=== PATIENT | male | born 1955 | race Caucasian/White ===

== ENCOUNTER 2021-11-25 06:43 | Inpatient (IN) | payer MEDICARE, OTHER, SELFPAY ==
--- NOTE | 2021-11-16 10:25 | EKG12_ITS ---
Test Reason : PRE OP Blood Pressure : / mmHG Vent. Rate : 079 BPM Atrial Rate : 079 BPM P-R Int : 116 ms QRS Dur : 088 ms QT Int : 368 ms P-R-T Axes : 039 004 007 degrees QTc Int : 421 ms Normal sinus rhythm Normal ECG Confirmed by BRIDGETT ALONSO MD ([id number]), food expeditor FELISHA DEAN ([id number]) on 11/17/2021 7:23:55 AM Referred By: ZOE Confirmed By:BRIDGETT ALONSO MD
--- NOTE | 2021-11-16 10:35 | RAD_ITS ---
STUDY: X-RAY CHEST REASON FOR EXAM: Male, 65 years old. PREOP TECHNIQUE: XR Chest 2 Views COMPARISON: None FINDINGS: There is no demonstrated pleural abnormality. Normal size heart. Normal mediastinum and ari. Normal visualized pulmonary arteries. Normal visualized aortic arch and descending thoracic aorta. Normal visualized thoracic spine. Normal visualized ribs, clavicles, and shoulders. There is no demonstrated abnormality of the visualized soft tissue structures of the upper abdomen. RAD/Chest PA and Lateral IMPRESSION: There are no acute findings. Electronically Signed: Jeremiah Rao MD at 18:52 EST Reading Location ID and State: [facility] / [place] , Service support ,
[2021-11-16 11:11] LABS: Absolute Lymphocyte Count 3.09 X10^3/uL (0.83-4.51); Basophil# 0.04 X10^3/uL; Basophil% 0.5 % (0-1); Eosinophil# 0.55 X10^3/uL; Eosinophils% 6.7 % (0-5); Lymphocyte # 3.09 X10^3/ul (0.83-4.51); Lymphocyte % 37.4 % (19-41); Mean Corp Hgb Conc 32.6 g/dL (32-36); Mean Corpuscular Hgb 30.4 pg (27.0-32.0); Mean Corpuscular Volume 93.3 fL (80-94); Mean Platelet Vol. 10.3 fl (6.2-12.0); Monocyte# 0.62 X10^3/uL; Monocyte% 7.5 % (0-10); NRBC Flagged by Analyzer 0 % (0-5); Neutrophil # 3.95 X10^3/uL (2.7-7.7); Neutrophil % 47.8 % (47-70); Platelet Count 190 K/mm3 (150-450); RBC Distribution Width CV 13.5 % (11.6-14.6); Red Blood Count 4.61 M/mm3 (4.6-6.2); White Blood Count 8.3 K/mm3 (4.4-11.0)
[2021-11-16 11:20] LABS: International Normalized Ratio 1.1; Prothrombin Time (Protime)PT. 13.3 SECONDS (11.7-14.9)
[2021-11-16 11:45] LABS: Anion Gap 2 (5-15); BUN 21 mg/dL (7-18); BUN/Creat Ratio 22.1 RATIO (10-20); Calcium,Total 8.6 mg/dL (8.5-10.1); Chloride 109 mmol/L (98-107); Creatinine, Serum 0.95 mg/dL (0.70-1.30); EST Glomerular Filtration Rate 84 mL/min (>60); Est Glom Filt Rate - Afr Amer 102 mL/min (>60); Glucose 90 mg/dL (74-106); Potassium 4.4 mmol/L (3.5-5.1); Sodium Level 140 mmol/L (136-145)
[2021-11-25] VITALS (11 sets, daily range): BP systolic 111–136; BP diastolic 56–101; PULSE 64–105; RESP 14–18; TEMP 35.8–36.8; O2SAT 93–100; BMI 30.8
[2021-11-25] MEDS: Lactated Ringers 1,000 ML 15 ML IV ×2 (07:25→22:00)
--- NOTE | 2021-11-25 08:08 | OP.PCM_ITS ---
Problems Associated Problem List Diagnoses (1) Lumbar stenosis: Report of Operation Date of Procedure: 11/25/21 Pre-Operative Diagnosis: 1. Lumbar stenosis, L4-5, L5-S1 with claudication 2. Lumbar degenerative disc disease, L4-5, L5-S1 3. Lumbar spondylosis, L4-5, L5-S1 with radiculopathy Post-Operative Diagnosis: 1. Lumbar stenosis, L4-5, L5-S1 with claudication 2. Lumbar degenerative disc disease, L4-5, L5-S1 3. Lumbar spondylosis, L4-5, L5-S1 with radiculopathy Surgery/Procedure Performed:: 1. L4-5 posterior lumbar interbody fusion 2. L5-S1 posterior lumbar interbody fusion 3. Insertion of intervertebral biomechanical device x2 4. Structural allograft for spinal fusion 5. L4 bilateral laminectomies, foraminotomies, facetectomies, decompression of bilateral L4 nerve roots 6. L5 bilateral laminectomies, foraminotomies, facetectomies, decompression of bilateral L5 nerve roots 7. S1 bilateral laminectomies, foraminotomies, facetectomies, decompression of bilateral S1 nerve roots 8. Pedicle screw fixation 9. Local autograft for spinal fusion 10. Repair of durotomy 11. Neuro monitoring bilateral upper and bilateral lower extremities Description of Surgical Findings:: Statement of medical necessity: The patient is a 65-year-old male with intractable back and leg pain. Image studies confirm the above diagnoses. He has failed conservative treatment to include medication, physical therapy, and injections. The patient opted for operative intervention understanding the risk to include, but not limited to, infection, bleeding, damage to nerves arteries and veins, possibility of spinal fluid leak, nonunion, hardware failure, continued pain, need for further surgery, deep vein thrombosis, pulmonary embolism, heart attack, risk of stroke or . Description of procedure: The patient was identified in the preoperative holding area. There he received preoperative IV antibiotics, Ancef, and was then transferred to the operative suite. Once in the operative suite, after general endotracheal anesthesia was established, the patient was positioned prone on the Abdoul operating table. All bony prominences were padded accordingly. The lumbar spine was prepped and draped in a standard surgical fashion. Bear hugger's were not turned on until the drapes were placed and sealed with Ioban. A midline incision was made and taken down to the lumbodorsal fascia. The fascia was divided and subperiosteal dissection was taken down to the level of the bilateral L4 and L5 transverse processes and S1 sacral ala. Deep retractors were placed. A bone scalpel was used to make bilateral cuts in the lamina of L4 and L5. Then a series of rongeurs and Kerrisons was used to remove the spinous process and lamina of L4 and L5. Then facetectomies of greater than 50% were performed as well as foraminotomies, decompressing the bilateral L4, L5, and S1 nerve roots. Given the severity of the stenosis we needed to perform wide bilateral laminectomies and near complete facetectomies in order to decompress the neural elements therefore creating instability necessitating the fusion. The dura and nerve roots were retracted medially. A 15 blade scalpel was used to make an annulotomy at L4-5 on the right side. Endplate elevators and curettes and pituitaries were utilized to remove disc material. The endplates were prepared with a rasp. An appropriate sized intervertebral peek cage device measuring 10 mm was packed with structural allograft and then impacted into position completing the posterior lumbar interbody fusion at L4-5. Similar steps were performed at L5-S1 including annulotomy, removal of disc material, and preparation of endplates. An appropriate sized intervertebral peek cage device measuring 10 mm was packed with structural allograft and impacted into position completing the posterior lumbar interbody fusion at L5-S1. At this time a dural tear was noted just cephalad to the L4 nerve root on the right s lala. This was repaired with silk suture. A Valsalva was performed showing no leak of CSF. I then proceeded with pedicle screw fixation. Starting points were found at the junction of the superior articular process and transverse processes of L4 and 5 and the sacral ala. A power bur was used for the starting points. Pedicle probes were placed bilaterally and then 6.5 x 45 mm screws were placed bilaterally at L4, 6.5 x 45 mm screws were placed bilaterally at L5, and 6.5 x 40 mm screws were placed bilaterally at S1. The screws were tested with intraoperative neurophysiologic monitoring and tested within normal limits. Connecting rods were then applied. I then proceeded with the posterior lateral fusion. This was accomplished by decorticating the transverse processes and sacral ala bilaterally at L4, L5 and S1. This decorticated bone was then bridged with local autograft as well as morselized cancellous allograft therefore completing the posterior lateral fusion at L4-5 and L5-S1. The incision was thoroughly irrigated with saline solution. DuraGen was placed over the dural repair. Tisseel was placed over the dura as a hemostatic agent. A deep drain was placed. The fascia was closed with #1 Vicryl, subcutaneous with 2-0 Vicryl, and skin with 2-0 nylon. A sterile dressing was applied with 4 x 4's ABD and tape. Sponge instrument needle counts were correct at the end of the case. The patient was extubated and taken to the PACU without incident. Surgeon: Abiel Cruz Type of Anesthesia: General Drains: Hemovac Estimated Blood Loss (mL): 650 cc Fluids Replaced: 3500 Grafts/Implants Used: Unified spine cages, screws and rods. Vitae OS biologic. DBM by ostial bi Admit VTE Documentation VTE Present on Admission: No
--- NOTE | 2021-11-25 08:08 | PCM.PN.ORT ---
Subjective Subjective The patient was seen and examined postoperatively in the PACU. He is resting comfortably. His pain is controlled. He denies any other complaints including numbness tingling or weakness. Objective Data Objective Data Vital Signs: Vital Signs Temp Pulse Resp BP Pulse Ox 98.0 F 64 16 114/73 100 11/25/21 07:16 11/25/21 07:16 11/25/21 07:16 11/25/21 07:16 11/25/21 07:16 Oxygen Delivery Method Room Air Weight: 227 lb 1.218 oz Body Mass Index (BMI) 30.8 Lab / Micro Data Result Diagrams: 11/16/21 10:45 11/16/21 10:45 Physical Exam Const alert, oriented x3 and no apparent distress General Appearance: cooperative and comfortable HEENT head/scalp atraumatic Eyes EOMs intact bilaterally and conjunctivae normal Neck full ROM General: normal visual inspection Chest inspection of chest normal Resp normal respiratory effort and normal air movement Cardio regular rate and regular rhythm Peripheral Pulses: pulses 2+ throughout GI soft to palpation, non-tender and non-distended Back/Spine Back/Spine Narrative: Dressing clean dry and intact. Drain in place and functioning with serosanguineous fluid present in the drain Thoracic Spine / Upper Back: normal to inspection Lumbar Spine / Lower Back: normal to inspection Extremity normal to inspection, full ROM, normal capillary refill, no clubbing, cyanosis or edema and no calf tenderness Peripheral Pulses: Yes pulses 2+ throughout Skin no rashes or lesions noted General Skin Exam: no breakdown Neuro oriented x3, CN's II-XII intact bilaterally, moves all extremities, no focal motor deficits, no sensory deficits noted and deep tendon reflexes 2+ bilaterally Motor Exam: strength 5/5 throughout and muscle tone normal throughout Assessment & Plan Assessment/Plan (1) Lumbar stenosis: PLAN: Okay to admit to floor See orders Pain control and mobilization as tolerated Back brace on at all times while out of bed Continue antibiotics while drain in place Keep dressing clean dry and intact, reinforce as needed Dr. Cruz will perform first dressing change when he removes the drain
--- NOTE | 2021-11-25 08:09 | DS.PCM_ITS ---
Providers Date of Admission: 11/25/21 Primary Care Physician: VANITA DING Reason For Visit: lumbar 4- lumbar 5 sacral posterior lumbar fusion Diagnosis Discharge Diagnosis (1) Lumbar stenosis: Status: Acute Code(s): M48.061 - Spinal stenosis, lumbar region without neurogenic claudication Medications at Discharge Home Medications atorvastatin 40 mg PO QHS 11/11/21 cholecalciferol (vitamin D3) [Vitamin D3] 50 mcg PO DAILY 11/11/21 gabapentin 300 mg PO TID 11/11/21 hydrocodone-acetaminophen 1 tab PO Q6H 7 Days #28 tab 11/25/21 Hospital Course Operations - (L4-5, L5-S1 posterior lumbar interbody fusion, decompression, posterior spinal fusion with instrumentation) Summary of Care Provided Minutes Spent on Discharge: 15 Hospital Course: The patient is a 65-year-old male who underwent an L4-5 and L5- S1 posterior lumbar interbody fusion, decompression, posterior spinal fusion with instrumentation, dural repair on 11/25/2021. He was subsequently admitted. The hospitalist was consulted for medical management. The patient progressed well. His pain was well controlled and he was mobilizing well. No significant medical issues were reported. He was complaining of a headache on postoperative day 1. His drain was clamped and he was laid flat for 24 hours and his headache resolved. His drain was pulled on 11/29/2021 and he was subsequently discharged home on 11/29/2021 to follow-up with Dr. Cruz in 3 weeks Physical Exam Const alert, oriented x3 and no apparent distress General Appearance: cooperative and comfortable HEENT head/scalp atraumatic Head and Scalp: normal to inspection Eyes EOMs intact bilaterally and conjunctivae normal Neck full ROM General: normal visual inspection Chest inspection of chest normal and palpation of chest normal Resp normal respiratory effort and normal air movement Cardio regular rate, regular rhythm and peripheral pulses 2+ throughout GI soft to palpation, non-tender and non-distended Back/Spine Back/Spine Narrative: Dressing clean dry and intact Incision well approximated with interrupted sutures in place. No erythema tenderness drainage or fluctuance. Thoracic Spine / Upper Back: normal to inspection Lumbar Spine / Lower Back: normal to inspection Extremity normal to inspection, full ROM, normal capillary refill, no clubbing, cyanosis or edema and no calf tenderness Peripheral Pulses: Yes pulses 2+ throughout Skin no rashes or lesions noted General Skin Exam: no breakdown Neuro oriented x3, CN's II-XII intact bilaterally, moves all extremities, no focal motor deficits, no sensory deficits noted and deep tendon reflexes 2+ elodia aterally Motor Exam: strength 5/5 throughout and muscle tone normal throughout Weight / BMI Weight Weight: 227 lb 1.218 oz Body Mass Index (BMI) 30.8 ABG / Lab / Microbiology Data Result Diagrams: 11/29/21 05:45 11/29/21 05:45 D/C Instructions Discharge Diet: No restrictions Discharge Activity: - (No repetitive bending twisting or lifting greater than 5 pounds) Lifting Restricted to (Lbs): 5 Additional Activity Instructions: See attached discharge instructions Call your doctor if your incision/area has: Continuous Slow Oozing, Sudden Increased Bleeding, Increased Pain/ Swelling, Increased Redness, Foul Smelling Discharge and Swelling at the incision site Call your doctor if you observe: Fever of 101 or Higher, Coldness, Increased Pain, Numbness or Tingling, Change in Color, Inability to urinate, Inability to have a bowel movement, Using more than 1 pad per hour, Shortness of breath, Dizziness, Fainting spells, Swelling in the ankles, Chest pain, Prolonged hiccupping, Increased palpitations (irregular heartbeat), Calf discomfort and Uncontrolled pain Change Dressing in: Daily Cleanse incision/area with: Do not get Incision Wet and Keep Dressing Clean & Dry Additional Dressing/Incision Instructions: Change dressing daily with iodine to incision Additional Instructions: See attached discharge instructions Please Follow Up With: Abiel Cruz DO When: 3 weeks Meaningful Use Info Meaningful Use Diagnoses (Choose all that apply): None applicable Discharge Plan Admission Admit Date/Time: 11/25/21 06:43 Attending Provider: Abiel Cruz Consulting Providers: Sailaja Rosales ; Adelita Galicia ; William Miller ; Keyshawn Echeverria ; Brody Bowers ; Nasrin Barnett ; Ck Vuong ; Pb Soto ; Denzel Castorena ; Manish Jones ; Juju Gr ; eLnny Andres ; Elicia Tipton ; Alexys Shahid ; Jn Rios ; Jagdish Woods ; John Mei ; Leonie Machado ; Aby Hua NP ; Tigre Jimenez ; Daniela Mak Instructions Additional Instructions / Restrictions: 1. During your procedure, you received sedation through your IV. Please follow these instructions for the next 24 hours: Do not drive a motor vehicle, do not drink any alcoholic beverages, and do not sign any legal documents or make personal or business decisions. A responsible adult should stay with you at least 6 hours after the procedure. 2. Keep your surgical site/incision clean and the dressing dry and intact. You may use an ice pack at the surgical site to reduce any swelling or discomfort. 3. Monitor the incision site for any signs or symptoms of infection. Watch for redness, excessive swelling or drainage, or continued pain at the incision site after 3 days. Contact your physician immediately for a fever, chills or a temperature of 101.5? F or greater. 4. Take your medication exactly as prescribed by your physician. Do not attempt to wean yourself off any of your medications even though your pain is improving. This process needs to be carefully monitored by your doctor. Take any antibiotics prescribed exactly as directed and until they are gone. 5. Avoid stretching, bending, pulling, twisting or any sudden movements. Do not bend or twist at the waist. 6. No lifting greater than 5 pounds. 7. Do not operate a motor vehicle, equipment or a power tool while taking pain medication 8. Do not have any manipulation done by a chiropractor or any other physician without first consulting with the surgeon 9. Please contact our office if you are even scheduled for a CT scan or an MRI. 10. Please call us if you have any questions, problems or concerns. Follow-up with Dr. Cruz in 3 weeks call for appointment Discharge Orders/Prescriptions Prescriptions: New hydrocodone-acetaminophen 5-325 mg tablet 1 tab PO Q6H 7 Days Qty: 28 RF: 0 Continued atorvastatin 40 mg Tablet 40 mg PO QHS RF: 0 gabapentin 300 mg Tablet 300 mg PO TID RF: 0 cholecalciferol (vitamin D3) [Vitamin D3] 50 mcg (2,000 unit) Tablet 50 mcg PO DAILY RF: 0 Discontinued meloxicam [Mobic] 15 mg Tablet 15 mg PO DAILY RF: 0 meloxicam 15 mg Tablet 15 mg PO DAILY RF: 0 Referrals / Follow Up: VANITA DING [Other] Abiel Cruz DO [STAFF PHYSICIAN] -
--- NOTE | 2021-11-25 08:39 | RAD_ITS ---
STUDY: X-RAY - LUMBAR SPINE REASON FOR EXAM: Male, 65 years old. L4-S1 interbody fusion surgery TECHNIQUE: 6 limited intraoperative view(s) of the lumbar spine were obtained. COMPARISON: None FINDINGS: 6 limited intraoperative studies were performed as the patient is an pedicle screw fusion surgery and synthetic disc placement at L4-5 and L5-S1. No intraoperative complications noted. RAD/Lumbar Spine 2 or 3 Views IMPRESSION: No complications noted with intraoperative studies of the lower lumbar spine. Electronically Signed: Neftali Cotto MD at 17:05 EST ,
[2021-11-25] MEDS: Cefazolin 2 GM in 0.9% Normal Saline 100 ML IV (09:00)
[2021-11-25] MEDS: Heparin 10,000 UNITS/10 ML Vial 10000 UNITS (09:09)
[2021-11-25] MEDS: THROMBIN (RECOMBINANT) 20,000 UNIT VIAL 20000 UNIT TOPICAL (09:09)
[2021-11-25] MEDS: Bupivacaine 0.25% 30 ML Vial (14:45)
[2021-11-25] MEDS: Cefazolin 1 GM/50 ML BAG IV (17:30)
[2021-11-25] MEDS: Morphine 4 MG/ML Syringe IV ×2 (18:04→21:53)
--- NOTE | 2021-11-25 18:04 | PN.HOSP_ITS ---
Documented by User: Aby Hua NP, DRAWER IN [employer]IN [employer]-C 11/25/21 18:09 Subjective Subjective Patient seen and examined. Patient underwent lumbar spine surgery. Reports mild shortness of breath postoperatively and was placed on 2 L supplemental oxygen. He denies chest pain. Reports significant postoperative pain. Reports a history of RODRIGO and wears BiPAP. Objective Data Objective Data Vital Signs: Vital Signs Temp Pulse Resp BP Pulse Ox 98.1 F 105 H 18 136/71 H 98 11/25/21 17:51 11/25/21 17:51 11/25/21 17:51 11/25/21 17:51 11/25/21 17:51 Oxygen Flow Rate (L/min) 2 Oxygen Delivery Method Nasal Cannula Weight: 227 lb 1.218 oz Body Mass Index (BMI) 30.8 Intake & Output: Intake and Output for Last 24 Hours 11/23/21 11/24/21 11/25/21 23:59 23:59 23:59 Intake Total 110 / 110 Output Total 595 / 595 Balance -485 / -485 Lab / Micro Data Result Diagrams: 11/16/21 10:45 11/16/21 10:45 Radiography Diagnostic Testing: Radiology Impression Lumbar Spine X-Ray 11/25/21 08:39 IMPRESSION: No complications noted with intraoperative studies of the lower lumbar spine. Electronically Signed: Neftali Cotto MD at 17:05 EST , Physical Exam Const alert, oriented x3 and no apparent distress Orientation / Consciousness: awake, oriented to person, oriented to place and oriented to time HEENT normocephalic and moist oral mucous membranes Eyes PERRL, EOMs intact bilaterally and conjunctivae normal Neck no lymphadenopathy Resp clear to auscultation bilaterally Auscultation: diminished lung sounds Cardio regular rate, regular rhythm and no murmurs Peripheral Pulses: pulses 2+ throughout GI normal to inspection, nondistended, normoactive bowel sounds, non-tender and non-distended Extremity normal to inspection Skin no rashes or lesions noted Skin Narrative: Postoperative lumbar dressing dry and intact. Lesions: no lesions Rashes: no rashes Trauma: no lacerations or abrasions Neuro CN's II-XII intact bilaterally, no focal motor deficits, no sensory deficits noted and deep tendon reflexes 2+ bilaterally Psych mental status grossly normal and affect normal Assessment & Plan Assessment/Plan (1) Lumbar stenosis: PLAN: 1. Lumbar stenosis and lumbar degenerative disc disease-status post extensive lumbar intervention-see operative note. Management per surgery. As needed pain regimen. PT/OT. 2. RODRIGO-continue BiPAP. 3. Hyperlipidemia-continue statin. DVT prophylaxis-SCDs This patient was seen by MAHESH Montelongo under the supervision of Dr. Gr. Documented by User: Dr. Juju Gr DO 11/25/21 18:48 Subjective Subjective This patient was seen in conjunction with Aby Hua NP. The following is representation my independent history and physical examination. Please see below for addendum the above. Mr. Harry is a 65-year-old white male who was admitted for and elective L4-L5 and L5-S1 posterior lumbar interbody fusion/decompression/posterior spinal fusion with instrumentation and allograft placement on 11/25/2021. He has a history of frequent episodic low back pain and paresthesias that radiate to his left lower extremity that were specifically worse with prolonged sitting. The patient had no changes in bowel or bladder function and unfortunately had failed conservative management including medications, physical therapy, and injections. His symptoms were affecting his activities of daily living. We have been consulted in the immediate postoperative. For medical management. At this time the patient has having some pain. He has a recent history of COVID-19 infection for which she wears oxygen at night. He has had 2 overnight pulse oximetry studies that he has failed. His BMI is 30.8 and he does have a short thick neck. He does deny ever having a polysomnography but family states that they feel he needs an outpatient sleep study. 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 Objective Data Lab / Micro Data Result Diagrams: 11/16/21 10:45 11/16/21 10:45 Physical Exam Const alert, oriented x3, healthy appearing and well nourished Constitutional Narrative: Obese upper middle-aged white male lying in bed, sleepy but awake and alert/oriented x3, appears mildly uncomfortable but nontoxic, family at bedside Exam Limitations: no limitations Nutritional Appearance: obese HEENT head/scalp atraumatic and moist oral mucous membranes HEENT Narrative: Mallampati is 3, tongue is red from Jell-O, dentition is fair Head and Scalp: normocephalic Resp normal respiratory effort, no retractions, no use of accessory muscles and clear to auscultation bilaterally Auscultation: Negative for crackles, rales, rhonchi or wheezes Cardio regular rhythm, S1 normal heart sound, S2 normal heart sound, no murmurs, no rub, no gallops, no clicks and no JVD Cardio Narrative: Very mild tachycardia GI normal to inspection, nondistended, normoactive bowel sounds, soft to palpation, non-tender and non-distended Extremity no clubbing, cyanosis or edema Peripheral Pulses: Yes pulses 2+ throughout Neuro oriented x3, CN's II-XII intact bilaterally, moves all extremities and no focal motor deficits Sensorium / Orientation: awake and alert Speech: speech normal Assessment & Plan Assessment/Plan (1) Lumbar stenosis: (2) Paresthesia of right upper extremity: PLAN: Lumbar stenosis status post L4-L5/L5-S1 posterior lumbar interbody fusion/decompression/posterior spinal fusion with instrumentation/allograft -Postop day [address] with management per primary -Pain management per primary -Recommend bowel regimen -PT/OT per direction of primary Right upper extremity tingling -Suspect this is related from positioning and surgery -No other neurological symptoms that are new -Continue to monitor Suspected RODRIGO -Nocturnal BiPAP -Recommend outpatient polysomnography Recent COVID-19 infection -Patient has been on nocturnal oxygen at 1 L since this infection however I do suspect he has obstructive sleep apnea baseline -Patient follows with Dr. Francois in [place] Hyperlipidemia -Continue statin Obesity -Recommend weight loss -BMI is 30.8 DVT prophylaxis -SCDs -Management per primary Charges/Coding Visit Charges Inpatient E&M: 58501 Subs Hosp L2
[2021-11-25] MEDS: Acetaminophen 500 MG Tablet 1000 MG PO (18:17)
[2021-11-25] MEDS: oxyCODONE 5 MG Tablet PO (18:59)
[2021-11-25] MEDS: Atorvastatin Calcium 40 MG Tablet PO (21:27)
[2021-11-25] MEDS: Gabapentin 300 MG Capsule PO (21:27)
[2021-11-25] MEDS: 0.9% Saline Lock 10 ML Syringe IV (21:56)
[2021-11-26] VITALS (11 sets, daily range): BP systolic 107–135; BP diastolic 60–97; PULSE 70–94; RESP 14–16; TEMP 36.6–37.2; O2SAT 94–100
[2021-11-26] MEDS: Cefazolin 1 GM/50 ML BAG IV ×3 (00:45→16:21)
[2021-11-26] MEDS: Acetaminophen 500 MG Tablet 1000 MG PO ×4 (00:46→21:33)
[2021-11-26] MEDS: Lactated Ringers 1,000 ML 100 ML IV (04:15)
[2021-11-26] MEDS: oxyCODONE 5 MG Tablet PO ×3 (05:04→19:17)
[2021-11-26] MEDS: Gabapentin 300 MG Capsule PO ×3 (05:06→21:33)
--- NOTE | 2021-11-26 06:37 | NURSING ---
patient stated it was ok to give information to daughter Divya, update given this AM
--- NOTE | 2021-11-26 07:18 | PCM.PN.ORT ---
Subjective Subjective The patient was seen and examined postoperative day 1. He is doing well. He is lying in bed resting comfortably. He is having some postop soreness but it is controlled on medication. He is having some tingling in the right small finger. He denies any other complaints including acute numbness tingling weakness. His Nance catheter has been removed. He was out of bed yesterday and walked around the room without difficulty. Objective Data Objective Data Vital Signs: Vital Signs Temp Pulse Resp BP Pulse Ox 97.9 F 79 16 107/63 94 11/26/21 05:00 11/26/21 06:57 11/26/21 05:00 11/26/21 05:00 11/26/21 06:00 Oxygen Flow Rate (L/min) 2 Oxygen Delivery Method Room Air Weight: 227 lb 1.218 oz Body Mass Index (BMI) 30.8 Intake & Output: Intake and Output for Last 24 Hours 11/24/21 11/25/21 11/26/21 23:59 23:59 23:59 Intake Total 378.75 / 378.75 849.83 / 849.83 Output Total 920 / 920 1875 / 1875 Balance -541.25 / -541.25 -1025.17 / -1025.17 Lab / Micro Data Result Diagrams: 11/16/21 10:45 11/16/21 10:45 Radiography Diagnostic Testing: Radiology Impression Lumbar Spine X-Ray 11/25/21 08:39 IMPRESSION: No complications noted with intraoperative studies of the lower lumbar spine. Electronically Signed: Neftali Cotto MD at 17:05 EST , Physical Exam Const alert, oriented x3 and no apparent distress General Appearance: cooperative and comfortable HEENT head/scalp atraumatic Eyes EOMs intact bilaterally and conjunctivae normal Neck full ROM General: normal visual inspection Chest inspection of chest normal Resp normal respiratory effort and normal air movement Cardio regular rate and regular rhythm Peripheral Pulses: pulses 2+ throughout GI soft to palpation, non-tender and non-distended Back/Spine Back/Spine Narrative: Dressing clean dry and intact. Drain in place and functioning with small amount of serosanguineous fluid in it Cervical Spine: cervical ROM normal Thoracic Spine / Upper Back: normal to inspection Lumbar Spine / Lower Back: normal to inspection Extremity normal to inspection, full ROM, normal capillary refill, no clubbing, cyanosis or edema and no calf tenderness Peripheral Pulses: Yes pulses 2+ throughout Skin no rashes or lesions noted General Skin Exam: no breakdown Neuro oriented x3, CN's II-XII intact bilaterally, moves all extremities, no focal motor deficits, no sensory deficits noted and deep tendon reflexes 2+ bilaterally Motor Exam: strength 5/5 throughout and muscle tone normal throughout Assessment & Plan Assessment/Plan (1) Lumbar stenosis: PLAN: Continue pain control and mobilization Back brace on at all times while out of bed Reinforce dressing as needed, do not remove Keep antibiotics going while drain in place Dr. Cruz will pull drain and perform first dressing change when appropriate
[2021-11-26] MEDS: 0.9% Saline Lock 10 ML Syringe IV ×3 (08:03→21:36)
[2021-11-26] MEDS: Morphine 4 MG/ML Syringe IV (08:03)
[2021-11-26] MEDS: Cholecalciferol (VIT D3) 25 MCG TABLET (1,000 UNITS) 50 MCG PO (08:03)
--- NOTE | 2021-11-26 09:10 | PN.HOSP_ITS ---
Documented by User: Aby Hua NP, LOCK AND DAM OPERATOR-C 11/26/21 09:26 Subjective Subjective Patient seen and examined. Reports pain has been tolerable overnight. Reports increased pain following movement this morning. Denies shortness of breath. Denies other symptoms or complaints. Patient states he has worn supplemental oxygen at nighttime since Cov infection October 2020. He states he does not wear BiPAP/CPAP. Objective Data Objective Data Vital Signs: Vital Signs Temp Pulse Resp BP Pulse Ox 98.2 F 70 14 107/60 99 11/26/21 07:56 11/26/21 07:56 11/26/21 07:56 11/26/21 07:56 11/26/21 07:56 Oxygen Flow Rate (L/min) 2 Oxygen Delivery Method Room Air Weight: 227 lb 1.218 oz Body Mass Index (BMI) 30.8 Intake & Output: Intake and Output for Last 24 Hours 11/24/21 11/25/21 11/26/21 23:59 23:59 23:59 Intake Total 378.75 / 378.75 849.83 / 849.83 Output Total 920 / 920 1875 / 1875 Balance -541.25 / -541.25 -1025.17 / -1025.17 Lab / Micro Data Result Diagrams: 11/16/21 10:45 11/16/21 10:45 Radiography Diagnostic Testing: Radiology Impression Lumbar Spine X-Ray 11/25/21 08:39 IMPRESSION: No complications noted with intraoperative studies of the lower lumbar spine. Electronically Signed: Neftali Cotto MD at 17:05 EST , Physical Exam Const alert, oriented x3 and no apparent distress Orientation / Consciousness: awake, oriented to person, oriented to place and oriented to time HEENT normocephalic and moist oral mucous membranes Eyes PERRL, EOMs intact bilaterally and conjunctivae normal Neck no lymphadenopathy Resp clear to auscultation bilaterally Auscultation: diminished lung sounds Cardio regular rate, regular rhythm and no murmurs Peripheral Pulses: pulses 2+ throughout GI normal to inspection, nondistended, normoactive bowel sounds, non-tender and non-distended Extremity normal to inspection Skin no rashes or lesions noted Skin Narrative: Postop dressing intact. Lesions: no lesions Rashes: no rashes Trauma: no lacerations or abrasions Neuro CN's II-XII intact bilaterally, no focal motor deficits, no sensory deficits noted and deep tendon reflexes 2+ bilaterally Psych mental status grossly normal and affect normal Assessment & Plan (1) Lumbar stenosis: COMMENT: This patient was seen in conjunction with Aby SIFUENTES. I have independently interviewed and examined the patient and reviewed pertinent history, examination findings, laboratory and plan of management. I have reviewed the note and agree with the documented findings with the few additional points. In brief, patient is admitted after elective surgery for lumbar stenosis, degenerative disc disease L4-5 L5-S1 with claudication. Lumbar spondylosis with L4-5 L5-S1 radiculopathy. Patient had L4-5 posterior lumbar interbody fusion with insertion of device and L4 L5-S1 bilateral laminectomies. PT and OT. VT prophylaxis as deemed necessary by orthopedic surgeon. Other comorbidities include dyslipidemia on statin. Nocturnal hypoxia on O2. I have discussed my assessment with Aby SIFUENTES and orders have been reviewed. Total time of the visit includes total time spent in counseling or coordination of care, (more than 50% of the total time, spent in obtaining medical information from nurses and other ancillary care providers,explaining to the pa tient about labs, imaging, diagnosis and management), discussion with resourcing consultant, review of labs and imaging is 30 minutes; I spent 18 minutes, more than half time and PA spent 12 minutes PLAN: 1. Lumbar stenosis and lumbar degenerative disc disease-status post extensive lumbar intervention-see operative note. Management per surgery. As needed pain regimen. PT/OT. 2. Nocturnal hypoxia-following prior Covid infection October 2020. Continue nighttime supplemental oxygen and follow-up with pulmonary as outpatient. 3. Hyperlipidemia-continue statin. DVT prophylaxis-SCDs This patient was seen by MAHESH Montelongo under the supervision of Dr. Rios. Assessment & Plan Assessment & Plan (1) Lumbar stenosis: Problem Details: This patient was seen in conjunction with Aby SIFUENTES. I have independently interviewed and examined the patient and reviewed pertinent history, examination findings, laboratory and plan of management. I have reviewed the note and agree with the documented findings with the few additional points. In brief, patient is admitted after elective surgery for lumbar stenosis, degenerative disc disease L4-5 L5-S1 with claudication. Lumbar spondylosis with L4-5 L5-S1 radiculopathy. Patient had L4-5 posterior lumbar interbody fusion with insertion of device and L4 L5-S1 bilateral laminectomies. PT and OT. VT prophylaxis as deemed necessary by orthopedic surgeon. Other comorbidities include dyslipidemia on statin. Nocturnal hypoxia on O2. I have discussed my assessment with Aby SIFUENTES and orders have been reviewed. Total time of the visit includes total time spent in counseling or coordination of care, (more than 50% of the total time, spent in obtaining medical information from nurses and other ancillary care providers,explaining to the patient about labs, imaging, diagnosis and management), discussion with resourcing consultant, review of labs and imaging is 30 minutes; I spent 18 minutes, more than half time and PA spent 12 minutes Plan: 1. Lumbar stenosis and lumbar degenerative disc disease-status post extensive lumbar intervention-see operative note. Management per surgery. As needed pain regimen. PT/OT. 2. Nocturnal hypoxia-following prior Covid infection October 2020. Continue nighttime supplemental oxygen and follow-up with pulmonary as outpatient. 3. Hyperlipidemia-continue statin. DVT prophylaxis-SCDs This patient was seen by WILLAM MontelongoC under the supervision of Dr. Rios. Medications: New: hydrocodone-acetaminophen 5-325 mg 1 TAB PO Q6H 7 days 28 tabs 0RF M48.061 Patient Instructions: Medication reconciliation done Documented by User: Dr. Jn Rios MD 11/26/21 11:32 Subjective Subjective Seen and examined Patient complain of back pain which was more severe at night constant 8-10/10 intensity. Slightly better around 6-8/10 intensity in the morning. Patient spontaneously voided urine after Nance catheter removal. Objective Data Lab / Micro Data Result Diagrams: 11/16/21 10:45 11/16/21 10:45 Physical Exam Narrative General: Alert, Oriented x3, Cooperative HEENT: Atraumatic, PERRLA, EOMI, Normocephalic Oral: No Gingival or Mucosal Lesions/ Ulcerations Neck: Supple, No JVD, Negative Carotid Bruits Lungs: Air entry diminished in bilateral lung bases. No crepitation/rhonchi Cardiovascular: Regular rate, Regular Rhythm, Normal S1, Normal S2, No murmurs Abdomen: Bowel Sounds Present, Soft, Non Tender, Non-Distended : No renal angle tenderness. No suprapubic tenderness. Extremities: No edema, Capillary Refill Less than 3 Seconds Skin: No rashes, No breakdown Musculoskeletal spine: Tenderness present around perioperative region in lumbar spine. Surgical dressing dry and. Drain contains serosanguineous fluid. ROM restricted Neurological: Cranial nerves II-XII grossly intact, DTR 2+/4 and Symmetrical. Numbness around right radial 3 fingers, third and fourth finger has improved. Psych/Mental Status: Normal Affect, Appropriate. Charges/Coding Visit Charges Inpatient E&M: 81771 Subs Hosp L2 Assessment & Plan (1) Lumbar stenosis: COMMENT: This patient was seen in conjunction with Aby SIFUENTES. I have independently interviewed and examined the patient and reviewed pertinent history, examination findings, laboratory and plan of management. I have reviewed the note and agree with the documented findings with the few additional points. In brief, patient is admitted after elective surgery for lumbar stenosis, degenerative disc disease L4-5 L5-S1 with claudication. Lumbar spondylosis with L4-5 L5-S1 radiculopathy. Patient had L4-5 posterior lumbar interbody fusion with insertion of device and L4 L5-S1 bilateral laminectomies. PT and OT. VT prophylaxis as deemed necessary by orthopedic surgeon. Other comorbidities include dyslipidemia on statin. Nocturnal hypoxia on O2. I have discussed my assessment with Aby SIFUENTES and orders have been reviewed. Total time of the visit includes total time spent in counseling or coordination of care, (more than 50% of the total time, spent in obtaining medical information from nurses and other ancillary care providers,explaining to the patient about labs, imaging, diagnosis and management), discussion with resourcing consultant, review of labs and imaging is 30 minutes; I spent 18 minutes, more than half time and PA spent 12 minutes (2) Paresthesia of right upper extremity: COMMENT: As mentioned in physical exam PLAN: As mentioned above Assessment & Plan Assessment & Plan (1) Lumbar stenosis: Problem Details: This patient was seen in conjunction with Aby SIFUENTES. I have independently interviewed and examined the patient and reviewed pertinent history, examination findings, laboratory and plan of management. I have reviewed the note and agree with the documented findings with the few additional points. In brief, patient is admitted after elective surgery for lumbar stenosis, degenerative disc disease L4-5 L5-S1 with claudication. Lumbar spondylosis with L4-5 L5-S1 radiculopathy. Patient had L4-5 posterior lumbar interbody fusion with insertion of device and L4 L5-S1 bilateral laminectomies. PT and OT. VT prophylaxis as deemed necessary by orthopedic surgeon. Other comorbidities include dyslipidemia on statin. Nocturnal hypoxia on O2. I have discussed my assessment with LOCK AND DAM OPERATORAby and orders have been reviewed. Total time of the visit includes total time spent in counseling or coordination of care, (more than 50% of the total time, spent in obtaining medical information from nurses and other ancillary care providers,explaining to the patient about labs, imaging, diagnosis and management), discussion with hafsa wu, review of labs and imaging is 30 minutes; I spent 18 minutes, more than half time and PA spent 12 minutes (2) Paresthesia of right upper extremity: Problem Details: As mentioned in physical exam Plan: As mentioned above Medications: New: hydrocodone-acetaminophen 5-325 mg 1 TAB PO Q6H 7 days 28 tabs 0RF M48.061 Patient Instructions: Medication reconciliation done
--- NOTE | 2021-11-26 09:40 | CASEMGMT ---
RN TOBI CALF SKINNER CM to room to meet with patient for initial transition planning/care coordination assessment. LINDA BRITTON introduced self and role at [facility]. Pt voices understanding and consents to assessment at this time. Pt resting in bed, in no distress at this time. Pt is A/O at this time and answers all questions appropriately. Care providers, pharmacy, and demographics verified/updated at this time. PCP: Dr Laquita Mederos @ [facility] Specialists: Dr Cruz--ortho. Dr Francois--validation scientist in [place]. Preferred Pharmacy: [facility] Retail Insurance: RR MCR, AARP Prescription Benefit: Yes Living Will/HPOA: Has both. , Katja, is HPOA LNOK: , Katja. 2 daughters Living Arrangements: Lives w/ in one-story home w/2 steps to enter. Independent prior to surgery. and pt shared home mgmt tasks. and 2 daughters, who live close, able to assist pt as needed. Transportation: Pt states drives self and states no transportation concerns at this time. also drives DME: States has the following DME: walk-in tub w/seat, back brace, walker, O2 @ 1l/m @ HS thru [employer] [facility] in [place]. Has concentrator only. Pt states no need for further DME at this time. HHC/SNF: No hx of SNF. Had [facility] in the past after having COVID and on the vent in Oct, 2020. Pt wishes to return home and states has no concerns with going home at time of discharge. Denies need for HHC. CM to follow for any discharge planning/needs. Pt voices no concerns/needs at this time. Advised pt to ask for CM if any questions/concerns/needs arise. Voices understanding. PLAN: Home w/family support and discharge plans in place. Binh BERMUDEZ RN, CM
--- NOTE | 2021-11-26 13:37 | CPS ---
started by nursing
[2021-11-26] MEDS: Atorvastatin Calcium 40 MG Tablet PO (21:33)
[2021-11-27] VITALS (9 sets, daily range): BP systolic 104–112; BP diastolic 61–72; PULSE 72–98; RESP 18; TEMP 37.2–37.4; O2SAT 94–99
[2021-11-27] MEDS: Cefazolin 1 GM/50 ML BAG IV ×3 (00:24→16:42)
--- NOTE | 2021-11-27 04:26 | PCM.PN.ORT ---
Subjective Subjective The patient was seen and examined postoperative day 2. He has been complaining of a headache and has been laying flat. He denies any other complaints. His pain is minimal. He has been mobilizing well and did walk the halls with physical therapy without any issues. He denies any numbness tingling or weakness. Objective Data Objective Data Vital Signs: Vital Signs Temp Pulse Resp BP Pulse Ox 98.9 F 91 16 130/74 H 100 11/26/21 20:33 11/26/21 20:33 11/26/21 20:33 11/26/21 20:33 11/26/21 20:33 Oxygen Flow Rate (L/min) 2 Oxygen Delivery Method Room Air Weight: 227 lb 1.218 oz Body Mass Index (BMI) 30.8 Intake & Output: Intake and Output for Last 24 Hours 11/25/21 11/26/21 11/27/21 23:59 23:59 23:59 Intake Total 378.75 / 378.75 2449.83 / 2449.83 50 / 50 Output Total 920 / 920 4955 / 4955 Balance -541.25 / -541.25 -2505.17 / -2505.17 50 / 50 Lab / Micro Data Result Diagrams: 11/16/21 10:45 11/16/21 10:45 Physical Exam Const alert, oriented x3 and no apparent distress General Appearance: cooperative and comfortable HEENT head/scalp atraumatic Eyes EOMs intact bilaterally and conjunctivae normal Neck full ROM General: normal visual inspection Chest inspection of chest normal Resp normal respiratory effort and normal air movement Cardio regular rate, regular rhythm and peripheral pulses 2+ throughout GI soft to palpation, non-tender and non-distended Back/Spine Back/Spine Narrative: Dressing clean dry and intact. Drain in place and functioning. Moderate amount of serosanguineous fluid in the drain. Thoracic Spine / Upper Back: normal to inspection Lumbar Spine / Lower Back: normal to inspection Extremity normal to inspection, full ROM, normal capillary refill, no clubbing, cyanosis or edema and no calf tenderness Peripheral Pulses: Yes pulses 2+ throughout Skin no rashes or lesions noted General Skin Exam: no breakdown Neuro oriented x3, CN's II-XII intact bilaterally, moves all extremities, no focal motor deficits, no sensory deficits noted and deep tendon reflexes 2+ bilaterally Motor Exam: strength 5/5 throughout and muscle tone normal throughout Assessment & Plan Assessment/Plan (1) Lumbar stenosis: PLAN: The patient is doing well. I feel his headache is probably secondary to CSF leak from intraoperative dural repair. Clamp drain and lay patient flat until headache resolves Keep Hemovac drain noncompressed Continue antibiotics while drain in place Continue pain control and mobilization Discharge planning, likely home tomorrow or Monday.
[2021-11-27] MEDS: Acetaminophen 500 MG Tablet 1000 MG PO ×3 (04:38→22:41)
[2021-11-27] MEDS: Gabapentin 300 MG Capsule PO ×3 (04:38→22:41)
[2021-11-27] MEDS: oxyCODONE 5 MG Tablet PO ×4 (05:41→22:40)
[2021-11-27] MEDS: 0.9% Saline Lock 10 ML Syringe IV ×2 (08:40→12:37)
[2021-11-27] MEDS: Cholecalciferol (VIT D3) 25 MCG TABLET (1,000 UNITS) 50 MCG PO (08:43)
--- NOTE | 2021-11-27 11:01 | PN.HOSP_ITS ---
Subjective Subjective Patient states his headache is resolved and got better very quickly after his lumbar drain was clamped. He did have a CSF leak during surgery that had to be repaired. He is currently lying flat without any headache and states he is feeling much better. Objective Data Objective Data Vital Signs: Vital Signs Temp Pulse Resp BP Pulse Ox 99 F 81 18 111/72 98 11/27/21 08:24 11/27/21 08:24 11/27/21 08:24 11/27/21 08:24 11/27/21 08:24 Oxygen Flow Rate (L/min) 2 Oxygen Delivery Method Room Air Weight: 103 kg Body Mass Index (BMI) 30.8 Intake & Output: Intake and Output for Last 24 Hours 11/25/21 11/26/21 11/27/21 23:59 23:59 23:59 Intake Total 378.75 / 378.75 2449.83 / 2449.83 100 / 100 Output Total 920 / 920 4955 / 4955 650 / 650 Balance -541.25 / -541.25 -2505.17 / -2505.17 -550 / -550 Lab / Micro Data Result Diagrams: 11/16/21 10:45 11/16/21 10:45 Physical Exam Const alert, oriented x3, no apparent distress, healthy appearing and well nourished Constitutional Narrative: Obese upper middle-aged white male lying flat on his back in bed, appears comfortable, very pleasant, nontoxic Orientation / Consciousness: awake, oriented to person, oriented to place and oriented to time Exam Limitations: no limitations Nutritional Appearance: obese HEENT normocephalic, head/scalp atraumatic and moist oral mucous membranes Head and Scalp: normocephalic Resp normal respiratory effort, no retractions, no use of accessory muscles and clear to auscultation bilaterally Auscultation: diminished lung sounds; Negative for crackles, rales, rhonchi or wheezes Cardio regular rate, regular rhythm, S1 normal heart sound, S2 normal heart sound, no murmurs, no rub, no gallops, no clicks and no JVD Cardio Narrative: Very mild tachycardia Peripheral Pulses: pulses 2+ throughout GI normal to inspection, nondistended, normoactive bowel sounds, soft to palpation, non-tender and non-distended Extremity normal to inspection and no clubbing, cyanosis or edema Peripheral Pulses: Yes pulses 2+ throughout Skin Lesions: no lesions Rashes: no rashes Trauma: no lacerations or abrasions Neuro oriented x3, moves all extremities, no focal motor deficits, no sensory deficits noted and deep tendon reflexes 2+ bilaterally Sensorium / Orientation: awake and alert Speech: speech normal Psych mental status grossly normal Assessment & Plan Assessment/Plan (1) Lumbar stenosis: (2) Headache: PLAN: Lumbar stenosis status post L4-L5/L5-S1 posterior lumbar interbody fusion/decompression/posterior spinal fusion with instrumentation/allograft -Postop day 2 -Drain in place with management per primary -Clamped today and headache improved -Pain management per primary -Recommend bowel regimen -PT/OT per direction of primary CSF leak -Was having a headache and now has resolved with clamping of drain Right upper extremity tingling -Resolved Suspected RODRIGO -Nocturnal BiPAP -Recommend outpatient polysomnography Recent COVID-19 infection -Patient has been on nocturnal oxygen at 1 L since this infection however I do suspect he has obstructive sleep apnea baseline -Patient follows with Dr. Francois in [place] Hyperlipidemia -Continue statin Obesity -Recommend weight loss -BMI is 30.8 DVT prophylaxis -SCDs -Management per primary Charges/Coding Visit Charges Inpatient E&M: 37591 Subs Hosp L2
[2021-11-27] MEDS: Morphine 4 MG/ML Syringe IV ×2 (12:37→19:51)
--- NOTE | 2021-11-27 13:11 | NURSING ---
New order per Dr. Cruz ok to have pt sit up at edge of bed is f headache is resolved. Pt is assisted to the edge of bed. He is assisted to standing states he feels light headed pt has return to bed no further complaints of lightheaded. Pt is in bed spouse in room. He is medicated with prn morphine. He also states that he feels a headache coming on. Drain is clamped and pt states headache has resolved.
[2021-11-27] MEDS: Ondansetron 4 MG/2 ML Vial IV (16:46)
[2021-11-27] MEDS: Atorvastatin Calcium 40 MG Tablet PO (22:41)
[2021-11-28] VITALS (10 sets, daily range): BP systolic 104–127; BP diastolic 65–78; PULSE 78–97; RESP 18; TEMP 36.6–38.2; O2SAT 93–97
[2021-11-28] MEDS: Morphine 4 MG/ML Syringe IV (00:37)
[2021-11-28] MEDS: Cefazolin 1 GM/50 ML BAG IV ×3 (00:37→16:40)
[2021-11-28] MEDS: 0.9% Saline Lock 10 ML Syringe IV ×2 (00:38→05:20)
[2021-11-28] MEDS: MELATONIN 3 MG TABLET PO ×2 (00:38→21:34)
--- NOTE | 2021-11-28 01:41 | NURSING ---
pt resting quietly in bed with eyes closed, resp easy
[2021-11-28] MEDS: Ondansetron 4 MG/2 ML Vial IV (05:19)
[2021-11-28] MEDS: oxyCODONE 5 MG Tablet PO ×3 (05:20→21:34)
[2021-11-28] MEDS: Acetaminophen 500 MG Tablet 1000 MG PO ×3 (05:21→21:35)
[2021-11-28] MEDS: Gabapentin 300 MG Capsule PO ×3 (05:21→21:34)
[2021-11-28] MEDS: Mag Hydrox/Al Hydrox/Simeth 30 ML UDC 15 ML PO (06:47)
[2021-11-28] MEDS: Famotidine 20 MG Tablet PO ×2 (09:03→21:35)
[2021-11-28] MEDS: Cholecalciferol (VIT D3) 25 MCG TABLET (1,000 UNITS) 50 MCG PO (09:03)
--- NOTE | 2021-11-28 11:33 | NURSING ---
Pt states his headache has resolved. Dr. Cruz updated and order is to mobilize pt. Pt is updated and his head of bed is elevated. Goal is to have head of bed up to 90 degrees within 1 hr and then attempt to have pt sit at edge of bed. Pt is updated on plan of care and he states I just feel Blah. Continue to be monitored.
--- NOTE | 2021-11-28 12:45 | PN.HOSP_ITS ---
Subjective Subjective Patient states his headache has remained resolved however he has not been able to get out of bed yet. He has been lying flat and is complaining of some right hip and leg pain from the position he is required to lie in. He is denying any current back pain. He denies any fever chills at this time. He is not been short of breath and other than his right leg pain states he is doing okay. Objective Data Objective Data Vital Signs: Vital Signs Temp Pulse Resp BP Pulse Ox 100.7 F H 90 18 108/73 97 11/28/21 12:14 11/28/21 12:14 11/28/21 12:14 11/28/21 12:14 11/28/21 08:00 Oxygen Flow Rate (L/min) 1 Oxygen Delivery Method Room Air Weight: 103 kg Body Mass Index (BMI) 30.8 Intake & Output: Intake and Output for Last 24 Hours 11/26/21 11/27/21 11/28/21 23:59 23:59 23:59 Intake Total 2449.83 / 2449.83 1700 / 1850 850 / 850 Output Total 4955 / 4955 3350 / 3350 575 / 575 Balance -2505.17 / -2505.17 -1650 / -1500 275 / 275 Lab / Micro Data Result Diagrams: 11/16/21 10:45 11/16/21 10:45 Physical Exam Const alert, oriented x3, no apparent distress, healthy appearing and well nourished Orientation / Consciousness: awake, oriented to person, oriented to place and oriented to time Exam Limitations: no limitations Nutritional Appearance: obese HEENT normocephalic, head/scalp atraumatic and moist oral mucous membranes HEENT Narrative: Mallampati is 2-3, no thrush Head and Scalp: normocephalic Eyes PERRL, EOMs intact bilaterally and conjunctivae normal Neck no lymphadenopathy, supple and no JVD Neck Narrative: Trachea midline, no thyroid enlargement Resp normal respiratory effort, no retractions, no use of accessory muscles and clear to auscultation bilaterally Auscultation: diminished lung sounds; Negative for crackles, rales, rhonchi or wheezes Cardio regular rate, regular rhythm, S1 normal heart sound, S2 normal heart sound, no murmurs, no rub, no gallops, no clicks and no JVD Peripheral Pulses: pulses 2+ throughout GI normal to inspection, nondistended, normoactive bowel sounds, soft to palpation, non-tender and non-distended Extremity normal to inspection and no clubbing, cyanosis or edema Extremity Narrative: Lumbar drain is in place with serosanguineous drainage with 100 cc of output in the last 24 hours Peripheral Pulses: Yes pulses 2+ throughout Skin no rashes or lesions noted, skin turgor normal, no jaundice, no petechiae and no mottling Skin Narrative: Dressing intact over area of lumbar surgery Lesions: no lesions Rashes: no rashes Trauma: no lacerations or abrasions Neuro oriented x3, moves all extremities, no focal motor deficits and deep tendon refl exes 2+ bilaterally Sensorium / Orientation: awake and alert Speech: speech normal Psych mental status grossly normal and affect normal Psych Narrative: Very pleasant and appropriately interactive Assessment & Plan Assessment/Plan (1) Lumbar stenosis: (2) Headache: PLAN: Lumbar stenosis status post L4-L5/L5-S1 posterior lumbar interbody fusion/decompression/posterior spinal fusion with instrumentation/allograft -Postop day 3 -Drain in place with management per primary -Clamped today and headache improved -Pain management per primary -Recommend bowel regimen -PT/OT per direction of primary CSF leak -Headache remains resolved Fever -T-max of 100.7 in the last 12 hours -Tylenol for antipyretics -Check blood cultures x2 -Check chest x-ray -Check UA -Check procalcitonin -No increase in back pain -Hold empiric antibiotics at this time -Encourage incentive spirometry -Differential includes atelectasis, infection, DVT -We will first start infectious work-up Right upper extremity tingling -Resolved Suspected RODRIGO -Nocturnal BiPAP -Recommend outpatient polysomnography Recent COVID-19 infection -Patient has been on nocturnal oxygen at 1 L since this infection however I do suspect he has obstructive sleep apnea baseline -Patient follows with Dr. Francois in [place] Hyperlipidemia -Continue statin Obesity -Recommend weight loss -BMI is 30.8 DVT prophylaxis -SCDs -Management per primary Charges/Coding Visit Charges Inpatient E&M: 66570 Subs Hosp L3
--- NOTE | 2021-11-28 13:33 | RAD_ITS ---
EXAM: XR CHEST, 1 VIEW CLINICAL INDICATION: Fever. TECHNIQUE: Frontal view of the chest. This report was created using [employer] report generation technology. COMPARISON: 11/16/2021. FINDINGS: LUNGS AND PLEURAL SPACES: Mild pulmonary hypoinflation. The lungs are clear. No pneumothorax. No effusion. HEART: Unremarkable. Cardiac silhouette not enlarged. MEDIASTINUM: Central airways and mediastinal contour are unremarkable. BONES/JOINTS: Unremarkable. SOFT TISSUES: Unremarkable. RAD/Chest 1 View (Portable) IMPRESSION: Normal limited inspiratory chest radiograph and unchanged when compared to 11/16/2021. Electronically Signed: Lawrence Garcia MD at 16:04 [facility] ,
[2021-11-28 14:23] LABS: Absolute Lymphocyte Count 1.29 X10^3/uL (0.83-4.51); Absolute Neutrophil Count 9.5 X10^3/uL (2.0-7.7); Basophil# 0.02 X10^3/uL; Basophil% 0.2 % (0-1); Eosinophil# 0.01 X10^3/uL; Eosinophils% 0.1 % (0-5); Hematocrit 35.3 % (40-54); Hemoglobin 12.1 g/dL (13.0-16.5); Lymphocyte # 1.29 X10^3/ul (0.83-4.51); Lymphocyte % 10.7 % (19-41); Mean Corp Hgb Conc 34.3 g/dL (32-36); Mean Corpuscular Hgb 31.7 pg (27.0-32.0); Mean Corpuscular Volume 92.4 fL (80-94); Mean Platelet Vol. 10.1 fl (6.2-12.0); Monocyte# 1.18 X10^3/uL; Monocyte% 9.7 % (0-10); NRBC Flagged by Analyzer 0 % (0-5); Neutrophil % 78.4 % (47-70); Platelet Count 184 K/mm3 (150-450); RBC Distribution Width CV 13.2 % (11.6-14.6); RBC Distribution Width SD 44.6 fl (35.1-43.9); Red Blood Count 3.82 M/mm3 (4.6-6.2); White Blood Count 12.1 K/mm3 (4.4-11.0)
[2021-11-28 14:53] LABS: Procalcitonin 0.11 ng/mL (0.00-0.09)
[2021-11-28] MEDS: Atorvastatin Calcium 40 MG Tablet PO (21:34)
[2021-11-29] MEDS: Cefazolin 1 GM/50 ML BAG IV ×2 (00:14→08:43)
[2021-11-29 02:30] VITALS: BP 103/72; PULSE 77; RESP 18; TEMP 36.8; O2SAT 100
[2021-11-29 05:00] VITALS: PULSE 84
[2021-11-29 06:14] LABS: Absolute Lymphocyte Count 2.08 X10^3/uL (0.83-4.51); Absolute Neutrophil Count 6.6 X10^3/uL (2.0-7.7); Basophil# 0.03 X10^3/uL; Basophil% 0.3 % (0-1); Eosinophil# 0.29 X10^3/uL; Eosinophils% 2.9 % (0-5); Hematocrit 34.2 % (40-54); Hemoglobin 11.5 g/dL (13.0-16.5); Lymphocyte # 2.08 X10^3/ul (0.83-4.51); Lymphocyte % 20.7 % (19-41); Mean Corp Hgb Conc 33.6 g/dL (32-36); Mean Corpuscular Hgb 31.9 pg (27.0-32.0); Mean Corpuscular Volume 94.7 fL (80-94); Mean Platelet Vol. 10.4 fl (6.2-12.0); Monocyte# 1.04 X10^3/uL; Monocyte% 10.3 % (0-10); NRBC Flagged by Analyzer 0 % (0-5); Neutrophil # 6.58 X10^3/uL (2.7-7.7); Neutrophil % 65.4 % (47-70); Platelet Count 175 K/mm3 (150-450); RBC Distribution Width SD 45.1 fl (35.1-43.9); Red Blood Count 3.61 M/mm3 (4.6-6.2); White Blood Count 10.1 K/mm3 (4.4-11.0)
[2021-11-29 06:28] LABS: Anion Gap 7 (5-15); BUN 15 mg/dL (7-18); BUN/Creat Ratio 20.4 RATIO (10-20); Calcium,Total 8.5 mg/dL (8.5-10.1); Chloride 102 mmol/L (98-107); Creatinine, Serum 0.74 mg/dL (0.70-1.30); EST Glomerular Filtration Rate 112 mL/min (>60); Est Glom Filt Rate - Afr Amer 136 mL/min (>60); Estimated Creatinine Clearance 78.68 ml/min; Glucose 101 mg/dL (74-106); Potassium 3.5 mmol/L (3.5-5.1); Sodium Level 136 mmol/L (136-145)
[2021-11-29] MEDS: Acetaminophen 500 MG Tablet 1000 MG PO ×2 (06:37→13:24)
[2021-11-29] MEDS: Gabapentin 300 MG Capsule PO ×2 (06:37→13:24)
[2021-11-29 08:40] VITALS: BP 106/64; PULSE 76; RESP 16; TEMP 36.6; O2SAT 98
[2021-11-29] MEDS: Cholecalciferol (VIT D3) 25 MCG TABLET (1,000 UNITS) 50 MCG PO (08:43)
[2021-11-29] MEDS: Famotidine 20 MG Tablet PO (08:43)
[2021-11-29] MEDS: 0.9% Saline Lock 10 ML Syringe IV (08:46)
[2021-11-29 09:00] VITALS: PULSE 73
[2021-11-29 12:51] VITALS: BP 107/72; PULSE 96; RESP 16; TEMP 36.8; O2SAT 100
[2021-11-29] MEDS: oxyCODONE 5 MG Tablet PO (13:23)
[2021-11-29 13:42] LABS: Bacteria 0 SEEN /hpf (None Seen); Mucous, Urine 0 SEEN /hpf (<or=2+); Red Blood Cells-Urine 0 SEEN /hpf (0-5); Squamous Epithelial Cells - UA 0 SEEN /hpf (0-5); White Blood Cells 0 SEEN /hpf (0-5)
[2021-11-29 13:48] LABS: Color, Urine Yellow (Yellow); Glucose, Dipstick Normal (Normal); Ketone-Dipstick Negative (Negative); Leukocyte Esterase-Dipstick Negative /ul (Negative); Nitrite-Dipstick Negative (Negative); Occult Blood-Urine Negative /ul (Negative); Protein-Dipstick 15 mg/dl (Negative); Urine Bilirubin Dipstick Negative (Negative); Urine Clarity Clear (Clear); Urine Urobilinogen Normal (Normal)
--- NOTE | 2021-11-29 14:23 | PN.HOSP_ITS ---
Subjective Subjective Patient reports that he has had no further headaches and was able to get up in a chair yesterday. He states he is feeling well today. Drain is still in place. Patient had one episode of fever with a T-max of 100.7 yesterday afternoon. Objective Data Objective Data Vital Signs: Vital Signs Temp Pulse Resp BP Pulse Ox 98.3 F 96 16 107/72 100 11/29/21 12:51 11/29/21 12:51 11/29/21 12:51 11/29/21 12:51 11/29/21 12:51 Oxygen Flow Rate (L/min) 1 Oxygen Delivery Method Room Air Weight: 103 kg Body Mass Index (BMI) 30.8 Intake & Output: Intake and Output for Last 24 Hours 11/27/21 11/28/21 11/29/21 23:59 23:59 23:59 Intake Total 1700 / 1850 2650 / 3050 900 / 900 Output Total 3350 / 3350 2505 / 3040 575 / 575 Balance -1650 / -1500 145 / 10 325 / 325 Lab / Micro Data Result Diagrams: 11/29/21 05:45 11/29/21 05:45 Labs: Laboratory Results - last 24 hr 11/28/21 13:30: Urine Color Yellow, Urine Clarity Clear, Urine pH 7.0, Ur Specific [place] 1.010, Urine Protein 15 H, Urine Glucose (UA) Normal, Urine Ketones Negative, Urine Occult Blood Negative, Urine Nitrite Negative, Urine Bilirubin Negative, Urine Urobilinogen Normal, Ur Leukocyte Esterase Negative, Urine RBC 0 SEEN, Urine WBC 0 SEEN, Ur Squamous Epith Cells 0 SEEN, Urine Bacteria 0 SEEN, Urine Mucus 0 SEEN 11/28/21 14:00: Procalcitonin 0.11 H 11/28/21 14:00: WBC 12.1 H, RBC 3.82 L, Hgb 12.1 L, Hct 35.3 L, MCV 92.4, MCH 31.7, MCHC 34.3, RDW Std Deviation 44.6 H, RDW Coeff of Pancho 13.2, Plt Count 184, MPV 10.1, Immature Gran % (Auto) 0.900, Neut % (Auto) 78.4 H, Lymph % (Auto) 10.7 L, [place] % (Auto) 9.7, Eos % (Auto) 0.1, Baso % (Auto) 0.2, Absolute Neuts (auto) 9.5 H, Absolute Lymphs (auto) 1.29, Nucleated RBC % 0 11/29/21 05:45: WBC 10.1, RBC 3.61 L, Hgb 11.5 L, Hct 34.2 L, MCV 94.7 H, MCH 31.9, MCHC 33.6, RDW Std Deviation 45.1 H, RDW Coeff of Pancho 13.0, Plt Count 175, MPV 10.4, Immature Gran % (Auto) 0.400, Neut % (Auto) 65.4, Lymph % (Auto) 20.7, [place] % (Auto) 10.3 H, Eos % (Auto) 2.9, Baso % (Auto) 0.3, Absolute Neuts (auto) 6.6, Absolute Lymphs (auto) 2.08, Nucleated RBC % 0 11/29/21 05:45: Sodium 136, Potassium 3.5, Chloride 102, Carbon Dioxide 27.0, Anion Gap 7, BUN 15, Creatinine 0.74, Estim Creat Clear Calc 78.68, Est GFR (MDRD) Af Amer 136, Est GFR (MDRD) Non-Af 112, BUN/Creatinine Ratio 20.4 H, Glucose 101, Calcium 8.5 Radiography Diagnostic Testing: Radiology Impression Chest X-Ray 11/28/21 13:33 IMPRESSION: Normal limited inspiratory chest radiograph and unchanged when compared to 11/16/2021. Electronically Signed: Lawrence Garcia MD at 16:04 EST Reading Location ID and State: [address] [place] [address] , Service support , Physical Exam Const alert, oriented x3, no apparent distress, healthy appearing and well nourished Constitutional Narrative: Upper middle-aged white male lying in bed, appears comfortable nontoxic, nursing at bedside Orientation / Consciousness: awake, oriented to person, oriented to place and oriented to time Exam Limitations: no limitations Nutritional Appearance: obese HEENT normocephalic, head/scalp atraumatic and moist oral mucous membranes Head and Scalp: normocephalic Resp normal respiratory effort, no retractions, no use of accessory muscles and clear to auscultation bilaterally Auscultation: diminished lung sounds; Negative for crackles, rales, rhonchi or wheezes Cardio regular rate, regular rhythm, S1 normal heart sound, S2 normal heart sound, no murmurs, no rub, no gallops, no clicks and no JVD Peripheral Pulses: pulses 2+ throughout GI normal to inspection, nondistended, normoactive bowel sounds, soft to palpation, non-tender and non-distended Extremity no clubbing, cyanosis or edema Extremity Narrative: Lumbar drain is in place with serosanguineous drainage Peripheral Pulses: Yes pulses 2+ throughout Skin Lesions: no lesions Rashes: no rashes Trauma: no lacerations or abrasions Neuro oriented x3, moves all extremities, no focal motor deficits and deep tendon reflexes 2+ bilaterally Sensorium / Orientation: awake and alert Speech: speech normal Psych mental status grossly normal Assessment & Plan Assessment/Plan (1) Lumbar stenosis: (2) Headache: PLAN: Lumbar stenosis status post L4-L5/L5-S1 posterior lumbar interbody fusion/decompression/posterior spinal fusion with instrumentation/allograft -Postop day 4 -Drain in place with management per primary -Clamped today and headache improved -Pain management per primary -Recommend bowel regimen -PT/OT per direction of primary CSF leak -Headache remains resolved Fever -T-max of 100.7 in the last 24 hours with no further fever since then -Tylenol for antipyretics -Check blood cultures are pending -Chest x-ray negative for infiltrate -UA is not suggestive of infection -Procalcitonin is not markedly elevated -No increase in back pain -Patient has no elevated white count Right upper extremity tingling -Resolved Suspected RODRIGO -Nocturnal BiPAP -Recommend outpatient polysomnography Recent COVID-19 infection -Patient has been on nocturnal oxygen at 1 L since this infection however I do suspect he has obstructive sleep apnea baseline -Patient follows with Dr. Francois in [place] Hyperlipidemia -Continue statin Obesity -Recommend weight loss -BMI is 30.8 DVT prophylaxis -SCDs -Management per primary Okay to discharge from medical standpoint. We will follow up on blood cultures performed yesterday Charges/Coding Visit Charges Inpatient E&M: 64170 Subs Hosp L2
--- NOTE | 2021-12-01 07:41 | PCM.HP.STD ---
HPI - General General Date of Admission: 11/25/21 HPI Narrative KALYN BROWN, is a 65 M who presents with pain in the right lower extremity upon bearing weight. He did undergo an L4-5 and L5-S1 fusion last on 11/25/2021 which went well. He did have a dural repair during his surgery. He was subsequently discharged home on 11/29/2021. He states that when he got home he began to have pain in the right gluteal region with bearing weight. This pain completely resolves with rest. He denies any back pain. He denies any acute numbness tingling weakness or changes in bowel or bladder function. He denies any headache, fever chills nausea or vomiting. However, his pain is limiting his ability to ambulate. He presented to the emergency department yesterday on 11/30/2021 where he was evaluated. A lumbar MRI scan was performed showing surgical changes from prior L4-S1 fusion. A small collection of fluid is noted consistent with normal postop fluid collection. [facility] Medical History Arthritis Back pain COVID-19 virus infection Former smoker History of pain when walking History of steroid therapy History of stress test Injury of back On home oxygen therapy Shortness of breath on exertion Wears glasses Home Medications atorvastatin 40 mg PO QHS 11/11/21 [History Last Taken 11/29/21] cholecalciferol (vitamin D3) [Vitamin D3] 50 mcg PO DAILY 11/11/21 [History Last Taken 11/29/21] hydrocodone-acetaminophen 1 tab PO Q6H 7 Days #28 tab 11/25/21 [Rx Last Taken 11/30/21 02:00] gabapentin 300 mg PO TID 11/30/21 [History Last Taken 11/30/21 06:00] Allergy/AdvReac Type Severity Reaction Status Date / Time No Known Allergies Allergy Verified 11/30/21 10:41 Surgical History History of amputation of finger of right hand Hx of arthroscopy of left knee Hx of cholecystectomy Hx of colonoscopy Social History Smoking Status: Former smoker Vital Signs Vital Signs Vital Signs: Weight Weight: 227 lb 1.218 oz Body Mass Index (BMI) 30.8 Physical Exam Const alert, oriented x3 and no apparent distress General Appearance: cooperative, comfortable and well kempt HEENT head/scalp atraumatic Head and Scalp: normal to inspection Eyes EOMs intact bilaterally and conjunctivae normal Neck full ROM General: normal visual inspection Chest inspection of chest normal Resp normal respiratory effort and normal air movement Cardio regular rate, regular rhythm and peripheral pulses 2+ throughout Peripheral Pulses: pulses 2+ throughout GI soft to palpation, non-tender and non-distended Back/Spine Back/Spine Narrative: Dressing clean dry and intact. Incision well approximated with interrupted sutures in place. No tenderness erythema drainage or fluctuance. Cervical Spine: cervical ROM normal Thoracic Spine / Upper Back: normal to inspection Lumbar Spine / Lower Back: normal to inspection Extremity normal to inspection, full ROM, normal capillary refill, no clubbing, cyanosis or edema and no calf tenderness Peripheral Pulses: Yes pulses 2+ throughout Skin no rashes or lesions noted General Skin Exam: no breakdown Neuro oriented x3, CN's II-XII intact bilaterally, moves all extremities, no sensory deficits noted and deep tendon reflexes 2+ bilaterally Motor Exam: strength 5/5 throughout and muscle tone normal throughout Results Lab / Micro Data Result Diagrams: 11/29/21 05:45 11/29/21 05:45 Micro: Microbiology 11/28/21 14:05 Blood Culture (Wb) - Right Hand Blood Culture - Preliminary No growth in 48 hours. 11/28/21 14:00 Blood Culture (Wb) - Anticubital Right Blood Culture - Preliminary No growth in 48 hours. Assessment & Plan Assessment/Plan (1) Lumbar stenosis: PLAN: I had a lengthy discussion with the patient. I reviewed his imaging with him. I feel that his symptoms are due to postop radiculitis in the right lower extremity. I did review his MRI which does show a fluid collection however I feel this is consistent with normal postop fluid collection. We will start him on IV steroids to try and decrease the inflammation. We will have physical therapy see him for mobilization. Up with assistance. Back brace on at all times while out of bed. Okay to remove back brace to sleep. Daily dressing changes. We will consult case management for evaluation of discharge to rehab. Consult hospitalist for medical management. He understands and agrees with the treatment plan.
--- NOTE | 2021-12-01 07:43 | PCM.DC.SUM ---
Providers Date of Admission: 11/25/21 Primary Care Physician: VANITA DING Consultations 11/25/21 16:47 Consult: Hospitalist Routine Consulting Provider: [facility] Reason for Consult: Medical Management EMERGENT Consult: No MD Notified: Yes Date Notified: 11/25/21 Time Notified: 18:00 Method of Notification: spoke to Dr. Gr Reason For Visit: lumbar 4- lumbar 5 sacral posterior lumbar fusion Diagnosis Discharge Diagnosis (1) Lumbar stenosis: Code(s): M48.061 - Spinal stenosis, lumbar region without neurogenic claudication (2) Headache: Status: Resolved Code(s): R51.9 - Headache, unspecified Medications at Discharge Home Medications atorvastatin 40 mg PO QHS 11/11/21 cholecalciferol (vitamin D3) [Vitamin D3] 50 mcg PO DAILY 11/11/21 gabapentin 300 mg PO TID 11/30/21 acetaminophen 1,000 mg PO Q8 PRN #0 tab 12/07/21 sennosides-docusate sodium [Stool Softener-Stimulant Laxat] 2 tab PO BID #60 tab 12/07/21 Hospital Course Summary of Care Provided Hospital Course: The patient is a six 5-year-old male who was admitted on 11/30/2021 for right lower extremity pain with weightbearing. He did undergo an L4-5 and L5-S1 fusion on 11/25/2021 and was subsequently discharged home on 11/29/2021. He states that when he got home he began having right lower extremity pain with bearing weight. He presented to the ER on 11/30/2021 where he was evaluated and subsequently admitted. His pain was well controlled and he was seen and evaluated by physical therapy. Case management was consulted. He did well while inpatient. The hospitalist was consulted for medical management. No significant medical issues were reported. He was subsequently discharged to rehab to follow up with Dr. Cruz in 3 weeks Weight / BMI Weight Weight: 227 lb 1.218 oz Body Mass Index (BMI) 30.8 ABG / Lab / Microbiology Data Result Diagrams: 11/29/21 05:45 11/29/21 05:45 Microbiology: Microbiology 11/28/21 14:05 Blood Culture (Wb) - Right Hand Blood Culture - Preliminary No growth in 48 hours. 11/28/21 14:00 Blood Culture (Wb) - Anticubital Right Blood Culture - Preliminary No growth in 48 hours. D/C Instructions Discharge Diet: No restrictions Lifting Restricted to (Lbs): 5 Additional Activity Instructions: See attached discharge instructions Call your doctor if your incision/area has: Continuous Slow Oozing, Sudden Increased Bleeding, Increased Pain/ Swelling, Increased Redness, Foul Smelling Discharge and Swelling at the incision site Call your doctor if you observe: Fever of 101 or Higher, Coldness, Increased Pain, Numbness or Tingling, Change in Color, Inability to urinate, Inability to have a bowel movement, Using more than 1 pad per hour, Shortness of breath, Dizziness, Fainting spells, Swelling in the ankles, Chest pain, Prolonged hiccupping, Increased palpitations (irregular heartbeat), Calf discomfort and Uncontrolled pain Cleanse incision/area with: Do not get Incision Wet and Keep Dressing Clean & Dry Additional Dressing/Incision Instructions: Change dressing daily with iodine to incision Additional Instructions: See attached discharge instructions Please Follow Up With: Abiel Cruz, When: 3 weeks Meaningful Use Info Meaningful Use Diagnoses (Choose all that apply): None applicable Discharge Plan Admission Admit Date/Time: 11/25/21 06:43 Attending Provider: Abiel Cruz Consulting Providers: Sailaja Rosales ; Adelita Galicia ; William Miller ; Keyshawn Echeverria ; Brody Bowers ; Nasrin Barnett ; Ck Vuong ; Pb Soto ; Denzel Castorena ; Manish Jones ; Juju Gr ; Lenny Andres ; Elicia Tipton ; Alexys Shahid ; Jn Rios ; Jagdish Woods ; John Mei ; Leonie Machado ; Aby Hua NP ; Tigre Jimenez ; Daniela Mak Instructions Additional Instructions / Restrictions: 1. During your procedure, you received sedation through your IV. Please follow these instructions for the next 24 hours: Do not drive a motor vehicle, do not drink any alcoholic beverages, and do not sign any legal documents or make personal or business decisions. A responsible adult should stay with you at least 6 hours after the procedure. 2. Keep your surgical site/incision clean and the dressing dry and intact. You may use an ice pack at the surgical site to reduce any swelling or discomfort. 3. Monitor the incision site for any signs or symptoms of infection. Watch for redness, excessive swelling or drainage, or continued pain at the incision site after 3 days. Contact your physician immediately for a fever, chills or a temperature of 101.5? F or greater. 4. Take your medication exactly as prescribed by your physician. Do not attempt to wean yourself off any of your medications even though your pain is improving. This process needs to be carefully monitored by your doctor. Take any antibiotics prescribed exactly as directed and until they are gone. 5. Avoid stretching, bending, pulling, twisting or any sudden movements. Do not bend or twist at the waist. 6. No lifting greater than 5 pounds. 7. Do not operate a motor vehicle, equipment or a power tool while taking pain medication 8. Do not have any manipulation done by a chiropractor or any other physician without first consulting with the surgeon 9. Please contact our office if you are even scheduled for a CT scan or an MRI. 10. Please call us if you have any questions, problems or concerns. Follow-up with Dr. Crzu in 3 weeks call for appointment Discharge Orders/Prescriptions Prescriptions: Continued atorvastatin 40 mg Tablet 40 mg PO QHS RF: 0 cholecalciferol (vitamin D3) [Vitamin D3] 50 mcg (2,000 unit) Tablet 50 mcg PO DAILY RF: 0 gabapentin 300 mg capsule 300 mg PO TID RF: 0 Discontinued meloxicam [Mobic] 15 mg Tablet 15 mg PO DAILY RF: 0 meloxicam 15 mg Tablet 15 mg PO DAILY RF: 0 No Action acetaminophen 500 mg Tablet 1,000 mg PO Q8 PRN (Reason: fever or pain) Qty: 0 RF: 0 sennosides-docusate sodium [Stool Softener-Stimulant Laxat] 8.6-50 mg Tablet 2 tab PO BID Qty: 60 RF: 0 Referrals / Follow Up: VANITA DING [Other] Abiel Cruz DO [STAFF PHYSICIAN] - Disposition Disposition (needs filled in before D/C Order can be placed): Inpatient Rehab Unit/Facility
== END 2021-11-29 14:20 | DRG 460 ==
LOC: ACINP 08:55 → MS3 11-26 07:37
PROVIDERS: Internal Medicine; Admitting Provider Orthopaedic Surgery; Referring Provider Orthopaedic Surgery; Visit Provider Orthopaedic Surgery
PROC: 0SG10AJ Fusion of 2 or more Lumbar Vertebral Joints with Interbody Fusion Device, Posterior Approach, Anterior Column, Open Approach (ICD-10-PCS; CPT 22630; principal; 2021-11-25 07:45)
DX: M48.062 Spinal stenosis, lumbar region with neurogenic claudication (principal); G96.00 Cerebrospinal fluid leak, unspecified; M46.96 Unspecified inflammatory spondylopathy, lumbar region; E78.5 Hyperlipidemia, unspecified; M51.16 Intervertebral disc disorders with radiculopathy, lumbar region; M47.26 Other spondylosis with radiculopathy, lumbar region; G47.33 Obstructive sleep apnea (adult) (pediatric); M48.07 Spinal stenosis, lumbosacral region; Z87.891 Personal history of nicotine dependence; Z79.899 Other long term (current) drug therapy; E66.8 Other obesity; Z68.30 Body mass index [BMI] 30.0-30.9, adult; Z86.16 Personal history of COVID-19
CPT/HCPCS: 36415; 71045; 71046; 72100; 76000; 80048; 81001; 84145; 85025; 85610; 85730; 87040; 93005; 97162; 97530; 99251; C1713; J7120; A4216; G0463; J2405; J3490

== ENCOUNTER 2021-11-30 10:37 | Inpatient (IN) | payer MEDICARE, OTHER, SELFPAY ==
[2021-11-30 10:38] VITALS: BP 121/71; PULSE 90; RESP 18; TEMP 36.1; O2SAT 100; BMI 33.1
--- NOTE | 2021-11-30 10:53 | MRI_ITS ---
STUDY: MRI LUMBAR SPINE WITH AND WITHOUT CONTRAST REASON FOR EXAM: Male, 65 years old. Lumbar radiculopathy, bilat leg numbness, weakness 5 days post op TECHNIQUE: Standardized fat and water weighted pulse sequences were obtained in the sagittal and axial planes. IV 22ml Dotarem was administered for the contrast portion of the examination. COMPARISON: None FINDINGS: Examination is degraded by motion artifact. Normal lumbar lordosis. There is no substantial scoliosis. Normal conus medullaris that terminates at the L1. There is mild enhancement of the cauda equina. L1-2: There is minimal disc space narrowing and endplate spondylosis. There is no significant disc herniation, central canal or foraminal stenosis L2-3: There is mild disc space narrowing and endplates spondylosis. Mild disc bulge and facet arthropathy. There is approximately 1.2 x 0.8 cm right posterolateral epidural T2 hyperintense collection with leftward displacement and compression of the the thecal sac (axial T2 image #19 series 5). L3-4: There is mild disc space narrowing and endplates spondylosis. Mild disc bulge and facet arthropathy along with thin circumferential epidural fluid collection resulting in moderate central canal stenosis. Mild right and mild left foraminal stenosis. L4-5: There is mild disc space narrowing and endplates spondylosis. There is a disc spacer and posterior transpedicular screw fusion. 1.2 x 2.0 cm dorsal epidural fluid collection with anterior displacement and severe thecal sac compression (axial T2 image #10 series 5). L5-S1: There is mild disc space narrowing and endplates spondylosis moderate disc osteophyte complex and facet arthropathy asymmetric to the right with moderate right foraminal stenosis. Decompression laminectomy and posterior transpedicular screw fusion. No significant central canal stenosis. Mild left foraminal stenosis. MRI/Spine Lumbar W/WO Contrast IMPRESSION: L4/L5: Epidural fluid collection which likely extends superiorly to the level of L2/L3 . Leading differential consideration is intraspinal hematoma. Less likely differential considerations include abscess, seroma and CSF leak N.B. : The above Results were Read Back by Sowmya Duong MD to Brody Ambriz MD, and understanding confirmed on 11/30/2021 13:47:41 (ET). Electronically Signed: Sowmya Duong MD at 13:55 EST ,
--- NOTE | 2021-11-30 11:05 | EDS_ITS ---
HPI History of Present Illness Chief Complaint: Lower Extremity Injury Informant: patient and family Onset/Context/Timing Onset: Days (2) Context: Gradual Onset Timing: Continuous Quality: Sharp Location: Lumbar spine Worsened by: Ambulation Relieved by: Nothing Narrative Narrative: Patient presents with back and lower extremity pain that has been getting worse over the past 2 days. Patient states he is unable to bear any weight due to the pain. Patient states the pain is sharp. Patient states the pain radiates down both legs but worse on the right. Patient admits to some constipation but denies any urinary or stool incontinence. Patient denies any saddle anesthesia. Patient denies any recent trauma or injury. Patient states he was recovering well after his surgery 5 days ago until 2 days ago. [facility] Medical History Arthritis Back pain COVID-19 virus infection Former smoker History of pain when walking History of steroid therapy History of stress test Injury of back On home oxygen therapy Shortness of breath on exertion Wears glasses Home Medications atorvastatin 40 mg PO QHS 11/11/21 [History Last Taken 11/29/21] cholecalciferol (vitamin D3) [Vitamin D3] 50 mcg PO DAILY 11/11/21 [History Last Taken 11/29/21] hydrocodone-acetaminophen 1 tab PO Q6H 7 Days #28 tab 11/25/21 [Rx Last Taken 11/30/21 02:00] gabapentin 300 mg PO TID 11/30/21 [History Last Taken 11/30/21 06:00] Allergy/AdvReac Type Severity Reaction Status Date / Time No Known Allergies Allergy Verified 11/30/21 10:41 Surgical History History of amputation of finger of right hand Hx of arthroscopy of left knee Hx of cholecystectomy Hx of colonoscopy Social History Smoking Status: Former smoker ROS ROS ED Constitutional Constitutional ED: Denies chills or fever(s) Eyes Eyes: Denies blurry vision or change in vision ENT ENT ED: Denies rhinorrhea or sore throat Cardiovascular Cardiovascular: Denies chest pain or palpitations Respiratory/Chest Respiratory/Chest: Denies cough or dyspnea Gastrointestinal Gastrointestinal: Reports nausea; Denies vomiting Genitourinary Genitourinary ED: Denies dysuria or hematuria Musculoskeletal Musculoskeletal: Reports back pain; Denies neck pain Integumentary Denies abscess or rash Neurologic Neurologic: Denies headache(s) or weakness Allergic/Immunologic Allergic/Immunologic ED: Denies mouth swelling or urticaria EXAM Physical Exam Const Vital Signs: 11/30/21 10:38 Temperature 97.0 F L Temperature Source Temporal Pulse Rate 90 Respiratory Rate 18 Blood Pressure 121/71 H Blood Pressure Mean 87 Pulse Ox 100 Oxygen Delivery Method Room Air Positive well nourished and well developed General Appearance ED: well developed HEENT Reports moist mucous membranes Neck supple and no JVD Resp normal respiratory effort and clear to auscultation bilaterally Cardio regular rate and regular rhythm GI normal to inspection, nondistended, normoactive bowel sounds and non-tender Palpation: soft Back/Spine Back/Spine Narrative: There is less of the lumbar spine paraspinal muscles. Range of motion was limited in all motions of the lumbar spine secondary to pain. Strength is 5/5 bilaterally in the lower extremities. There are no sensory deficits noted. Lumbar Spine / Lower Back: lumbar spinal tenderness Neuro oriented x3, CN's II-XII intact bilaterally and no sensory deficits noted Sensorium / Orientation: alert Motor Exam: strength 5/5 throughout Psych mental status grossly normal Skin no rashes or lesions noted MDM MDM MDM Narrative Medical decision making narrative: Patient was given a dose of Solu-Medrol, morphine, and Zofran. MRI of the lumbar spine was obtained. There is an epidural fluid collection at L4-L5 extending up to the level of L2-L3. This could be hematoma, abscess, seroma, or CSF leak. This was interpreted by the radiologist and reviewed by myself. Patient was feeling better on reevaluation. Patient was able to ambulate however, when he twisted he felt sharp shooting pain in his right buttock and leg. Patient is concerned about going home. Case was discussed with Dr. Cruz. He will admit the patient for observation. Patient understood and was agreeable with the plan. All questions were answered. Radiography Diagnostic Testing: Clinical Impression(s) from Imaging Studies Lumbar Spine MRI 11/30/21 10:53 IMPRESSION: L4/L5: Epidural fluid collection which likely extends superiorly to the level of L2/L3 . Leading differential consideration is intraspinal hematoma. Less likely differential considerations include abscess, seroma and CSF leak N.B. : The above Results were Read Back by Sowmya Duong MD to Brody Ambriz MD, and understanding confirmed on 11/30/2021 13:47:41 (ET). Electronically Signed: Sowmya Duong MD at 13:55 EST , ADDENDUM: 11/30/21 1402 IMPRESSION: L4/L5: Epidural fluid collection which likely extends superiorly to the level of L2/L3 . Leading differential consideration is intraspinal hematoma. Less likely differential considerations include abscess, seroma and CSF leak N.B. : The above Results were Read Back by Sowmya Duong MD to Brody Ambriz MD, and understanding confirmed on 11/30/2021 13:47:41 (ET). Electronically Signed: Sowmya Duong MD at 13:55 EST , Treatment and Re-Evaluation Vital Sign Attestation:: Vital signs were reviewed prior to admission. They are stable. Discharge Plan Dx/Rx/DC Orders Clinical Impression: Acute low back pain Disposition Disposition: Acute Care Hospital [facility] Discharge Date/Time: 11/30/21 16:12
[2021-11-30] MEDS: Ondansetron 4 MG/2 ML Vial IV (11:33)
[2021-11-30] MEDS: Morphine 4 MG/ML Syringe IV ×2 (11:33→14:42)
[2021-11-30] MEDS: MethylPREDNISolone 125 MG/2 ML Vial 80 MG IV (11:34)
[2021-11-30 15:48] VITALS: BP 133/72; PULSE 90; RESP 18; TEMP 36.7; O2SAT 98
[2021-11-30 16:18] VITALS: BMI 29.9
[2021-11-30 16:20] VITALS: BP 130/97; PULSE 89; RESP 916; TEMP 37.9; O2SAT 98
--- NOTE | 2021-11-30 19:09 | NURSING ---
UPDATED PT AND DAUGHTER DUSTY AFTER TALKING W/DR ENRIQUEZ. THEY ARE AWARE THAT HE DOES NOT BELIEVE THE FLUID SHOWING IN THE MRI IS INFECTION OR WILL NEED TO BE DRAINED.
[2021-11-30 21:09] VITALS: BP 102/68; PULSE 79; RESP 16; TEMP 37.5; O2SAT 99
[2021-11-30] MEDS: Atorvastatin Calcium 40 MG Tablet PO (21:21)
[2021-11-30] MEDS: Gabapentin 300 MG Capsule PO (21:21)
[2021-11-30] MEDS: HYDROcodone Bitartrate/Apap 5/325 Tablet PO (21:52)
[2021-12-01 02:57] VITALS: BP 109/65; PULSE 72; RESP 18; TEMP 36.8; O2SAT 100
[2021-12-01] MEDS: HYDROcodone Bitartrate/Apap 5/325 Tablet PO (03:02)
[2021-12-01] MEDS: Gabapentin 300 MG Capsule PO ×2 (04:41→13:51)
[2021-12-01 07:58] VITALS: BP 108/63; PULSE 73; RESP 18; TEMP 37.2; O2SAT 100
[2021-12-01] MEDS: Cholecalciferol (VIT D3) 25 MCG TABLET (1,000 UNITS) 50 MCG PO (10:59)
--- NOTE | 2021-12-01 11:11 | CPS ---
started by nursing
[2021-12-01] MEDS: dexAMETHasone 4 MG/ML Vial IV (12:07)
--- NOTE | 2021-12-01 12:30 | CASEMGMT ---
Social Work Note BOZENA updated that pt is requesting [facility] at discharge. SW spoke with PT, recommendation is [facility]. BOZENA placed a call to Angela with [facility] and provided referral. [facility] is able to accept pt today. SW in to speak with pt and pt's Katja is present at [facility]. SW spoke with pt about discharge plans. Pt confirms he prefers to discharge to [facility]. SW informed pt and Katja that [facility] is able to accept pt. Pt and Katja states understanding. BOZENA updated physician. 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
[2021-12-01 15:47] VITALS: BP 103/63; PULSE 77; RESP 18; TEMP 37.2; O2SAT 98
--- NOTE | 2021-12-01 15:49 | PN.HOSP_ITS ---
Subjective Subjective Patient is familiar to me from his recent surgery. He was readmitted for right lower extremity pain that he experienced shortly after going home. He states he is really not having the back pain and only has right leg pain when he bears weight on it. He is interested in going to rehab. He states otherwise he feels well. We did discuss his cultures being negative that were drawn when he had a fever during his previous admission. Objective Data Objective Data Vital Signs: Vital Signs Temp Pulse Resp BP Pulse Ox 98.9 F 73 18 108/63 100 12/01/21 07:58 12/01/21 07:58 12/01/21 07:58 12/01/21 07:58 12/01/21 07:58 Oxygen Flow Rate (L/min) 1 Oxygen Delivery Method Nasal Cannula Weight: 100 kg Body Mass Index (BMI) 29.9 Intake & Output: Intake and Output for Last 24 Hours 11/29/21 11/30/21 12/01/21 23:59 23:59 23:59 Intake Total 890 / 890 Output Total 1150 / 1150 Balance -260 / -260 Physical Exam Const alert, oriented x3 and no apparent distress Constitutional Narrative: Overweight white male sitting on the edge of bed eating breakfast, appears comfortable nontoxic, currently pain-free Exam Limitations: no limitations Nutritional Appearance: overweight HEENT head/scalp atraumatic and moist oral mucous membranes Head and Scalp: normocephalic Resp normal respiratory effort, no retractions, no use of accessory muscles and clear to auscultation bilaterally Auscultation: Negative for crackles, rales, rhonchi or wheezes Cardio regular rate, regular rhythm, S1 normal heart sound, S2 normal heart sound, no murmurs, no rub, no gallops, no clicks and no JVD GI normal to inspection, nondistended, normoactive bowel sounds, soft to palpation, non-tender and non-distended Extremity no clubbing, cyanosis or edema Peripheral Pulses: Yes pulses 2+ throughout Neuro oriented x3, CN's II-XII intact bilaterally, moves all extremities, no focal motor deficits and no sensory deficits noted Neuro Narrative: Patient only has right leg pain when he bears weight on that leg otherwise he is entirely pain-free and has no neurological changes Sensorium / Orientation: awake and alert Speech: speech normal Assessment & Plan Assessment/Plan (1) Acute low back pain: (2) Right leg pain: PLAN: Back pain and right leg pain following lumbar surgery -MRI does not show any signs of abscess--> small fluid collection however a ppears to be a seroma -Patient has no back pain when he is at rest and only has symptoms when he is putting weight on his right leg -PT/OT consultation -Rehab recommendation at discharge Recent lumbar stenosis status post L4-L5/L5-S1 posterior lumbar interbody fusion/decompression/posterior spinal fusion with instrumentation/allograft -Pain management per primary -Recommend bowel regimen -PT/OT per direction of primary CSF leak -Headache remains resolved Fever -Patient had this postoperatively -All cultures are negative -No signs of infection Suspected RODRIGO -Nocturnal BiPAP -Recommend outpatient polysomnography Recent COVID-19 infection -Patient has been on nocturnal oxygen at 1 L since this infection however I do suspect he has obstructive sleep apnea baseline -Patient follows with Dr. Francois in [place] Hyperlipidemia -Continue statin Obesity -Recommend weight loss -BMI is 30.8 DVT prophylaxis -SCDs -Management per primary Charges/Coding Visit Charges Inpatient E&M: 52686 Subs Hosp L2
--- NOTE | 2021-12-03 16:25 | CASEMGMT ---
Late entry for 11/30/21 RN CM Readmission Note Previous Admission: 11/25/2021-11/29/2021 Diagnosis: lumbar fusion DC Disposition: Home Current Admission Current Diagnosis: leg weakness Pt presented to ER from home with extreme back and lower extremity pain. Pt is unable to bear weight. Patient was evaluated by therapy and recommended to Rehab Unit. DC PLAN: Rehab Unit at [facility]. Pt screened with [facility] Palliative Care Screening Tool due to readmission, pt did not meet criteria.
== END 2021-12-01 16:30 | DRG 552 ==
LOC: ED 15:02 → MS3 15:23
PROVIDERS: Admitting Provider Orthopaedic Surgery; Emergency Provider Emergency Medicine; Visit Provider Orthopaedic Surgery
DX: M54.16 Radiculopathy, lumbar region (principal); E66.9 Obesity, unspecified; Z99.81 Dependence on supplemental oxygen; M48.061 Spinal stenosis, lumbar region without neurogenic claudication; E78.5 Hyperlipidemia, unspecified; G47.33 Obstructive sleep apnea (adult) (pediatric); M19.90 Unspecified osteoarthritis, unspecified site; Z79.899 Other long term (current) drug therapy; Z98.1 Arthrodesis status; Z86.16 Personal history of COVID-19; Z87.891 Personal history of nicotine dependence; Z68.30 Body mass index [BMI] 30.0-30.9, adult
CPT/HCPCS: 72158; 97162; 97166; 97802; 99251; 99285; A9575; A4216; G0463; J2405

== ENCOUNTER 2021-12-01 16:54 | Inpatient (IN) | payer MEDICARE, OTHER, SELFPAY ==
[2021-12-01 17:04] VITALS: BP 113/68; PULSE 76; RESP 16; TEMP 36.9; O2SAT 99; BMI 30.2
[2021-12-01] MEDS: Gabapentin 300 MG Capsule PO (20:47)
[2021-12-01] MEDS: Atorvastatin Calcium 40 MG Tablet PO (20:47)
[2021-12-01] MEDS: Senna/Docusate Sodium 1 Tablet 2 TABLET PO (20:48)
[2021-12-01] MEDS: Acetaminophen 500 MG Tablet 1000 MG PO (20:48)
[2021-12-01 21:15] VITALS: BP 114/77; PULSE 73; RESP 18; TEMP 36.8; O2SAT 100
[2021-12-01] MEDS: dexAMETHasone 4 MG/ML Vial IV (23:45)
[2021-12-02] MEDS: Gabapentin 300 MG Capsule PO ×3 (05:45→20:42)
[2021-12-02] MEDS: Acetaminophen 500 MG Tablet 1000 MG PO ×3 (05:45→20:42)
[2021-12-02 05:51] LABS: Absolute Lymphocyte Count 1.38 X10^3/uL (0.83-4.51); Absolute Neutrophil Count 7.6 X10^3/uL (2.0-7.7); Basophil# 0.01 X10^3/uL; Basophil% 0.1 % (0-1); Hematocrit 32.5 % (40-54); Hemoglobin 10.9 g/dL (13.0-16.5); Lymphocyte # 1.38 X10^3/ul (0.83-4.51); Lymphocyte % 14.7 % (19-41); Mean Corp Hgb Conc 33.5 g/dL (32-36); Mean Corpuscular Hgb 30.8 pg (27.0-32.0); Mean Corpuscular Volume 91.8 fL (80-94); Mean Platelet Vol. 9.9 fl (6.2-12.0); Monocyte# 0.41 X10^3/uL; Monocyte% 4.4 % (0-10); NRBC Flagged by Analyzer 0 % (0-5); Neutrophil # 7.55 X10^3/uL (2.7-7.7); Neutrophil % 80.3 % (47-70); Platelet Count 237 K/mm3 (150-450); RBC Distribution Width CV 12.9 % (11.6-14.6); RBC Distribution Width SD 43.3 fl (35.1-43.9); Red Blood Count 3.54 M/mm3 (4.6-6.2); White Blood Count 9.4 K/mm3 (4.4-11.0)
[2021-12-02] MEDS: Magnesium Hydroxide 30 ML UDC PO (06:03)
[2021-12-02 06:12] LABS: ALB/GLOB Ratio 0.7 RATIO (0.9-2.4); AST(SGOT) 26 U/L (15-37); Alanine Aminotransfer ALT/SGPT 41 U/L (16-61); Albumin, Serum 2.8 g/dL (3.2-5.0); Alkaline Phosphatase 62 U/L (45-117); Anion Gap 6 (5-15); BUN 18 mg/dL (7-18); BUN/Creat Ratio 26.4 RATIO (10-20); Calcium,Total 8.7 mg/dL (8.5-10.1); Chloride 107 mmol/L (98-107); Creatinine, Serum 0.68 mg/dL (0.70-1.30); EST Glomerular Filtration Rate 123 mL/min (>60); Est Glom Filt Rate - Afr Amer 149 mL/min (>60); Estimated Creatinine Clearance 78.68 ml/min; Globulin 3.8 g/dL (2.2-4.2); Glucose 149 mg/dL (74-106); Magnesium 2.6 mg/dL (1.6-2.6); Phosphorus 3.6 mg/dL (2.5-4.9); Potassium 4.4 mmol/L (3.5-5.1); Protein, Total 6.6 g/dL (6.4-8.2); Sodium Level 139 mmol/L (136-145)
[2021-12-02] MEDS: dexAMETHasone 4 MG/ML Vial IV ×2 (06:17→11:54)
[2021-12-02] MEDS: 0.9% Saline Lock 10 ML Syringe IV ×2 (06:18→11:54)
[2021-12-02 08:05] VITALS: BP 135/75; PULSE 72; RESP 16; TEMP 35.9; O2SAT 97
[2021-12-02 08:35] VITALS: O2SAT 96
[2021-12-02] MEDS: Senna/Docusate Sodium 1 Tablet 2 TABLET PO ×2 (09:20→20:42)
[2021-12-02] MEDS: Cholecalciferol (VIT D3) 25 MCG TABLET (1,000 UNITS) 50 MCG PO (09:21)
--- NOTE | 2021-12-02 11:23 | HP.PCM_ITS ---
HPI - General General Date of Admission: 12/01/21 HPI Narrative 14 on 11/16/2021. KALYN BROWN, is a 65YO M with a PMH of RODRIGO (wears BIPAP), HDL, obesity, osteoarthritis, tobacco dependence, COVID infection in October of 2020 and Lumbar canal stenosis at L4-5 and L5-S1 with neurogenic claudication. He has chronic back pain with radiation to the LLE and paresthesias. He failed conservative therapy and he was taken to surgery by Dr. Cruz on November 25, 2021 for laminectomies/decompression and fusion of L4-5 and L5-S1 with allograft for fusion. He had a CSF leak during the surgery and it was repaired per the progress notes from that admission. Post operatively he c/o cephalgia and this resolved with removal of the drain. He elected to go home at [facility] and he was discharged on 09/28/22. He returned to the ED on 11/30/21 c/o uncontrolled pain in the back and the LLE. He was unable to bear weight. MRI of the lumbar spine showed an epidural fluid collection at L4/L5 extending superiorly to the level of L2/L3. Dr. Cruz reviewed the MRI and felt this was a normal finding in a pt post laminectomies and fusion. He was admitted to the hospital for pain control and PT/OT eval. PT found him to have weakness in the legs with repeated episodes of his legs buckling. He took assist of 2 to stand him. Both OT/PT recommended DC to acute rehab. He was transferred to the [facility] rehab unit at [facility] on 12/01/21 for 3 hours of therapy daily to restore function/independence to the level prior to the surgery or better. All documentation from the 2 recent admissions was reviewed. He is to get a total of 4 doses of Decadron IV to help decrease inflammation. Since admission to rehab he has had only Tylenol 1 GM every 8 hours scheduled. He has not taken a Oxycodone. He is on Gabapentin 300 mg TID. All lab from this AM was personally reviewed. White blood cell count is normal at 9.4 with 88% neutrophils and no increase in immature granulocytes. Lites are normal and the hemoglobin is 10.9 which is down from 14 on 11/16/2021. Fasting glucose is elevated at 149 but I suspect this is due to Decadron. [facility] Medical History (Updated 12/02/21 @ 18:[address] Malorie Jacobsen DO) Chronic back pain COVID-19 virus infection Former smoker History of pain when walking History of steroid therapy History of stress test Injury of back Left leg paresthesias Obstructive sleep apnea On home oxygen therapy Osteoarthritis (arthritis due to wear and tear of joints) Radicular pain of left lower extremity Shortness of breath on exertion Wears glasses Home Medications atorvastatin 40 mg PO QHS 11/11/21 [History Last Taken 11/29/21] cholecalciferol (vitamin D3) [Vitamin D3] 50 mcg PO DAILY 11/11/21 [History Last Taken 11/29/21] gabapentin 300 mg PO TID 11/30/21 [History Last Taken 11/30/21 06:00] Allergy/AdvReac Type Severity Reaction Status Date / Time No Known Allergies Allergy Verified 11/30/21 10:41 Family History (Updated 12/02/21 @ 17:[address] Malorie Jacobsen DO) Mother CAD (coronary artery disease) Arthritis Family History no significant family his Surgical History (Updated 12/02/21 @ 17:[address] Malorie Jacobsen DO) History of amputation of finger of right hand Hx of arthroscopy of left knee Hx of cholecystectomy Hx of colonoscopy Social History (Updated 12/02/21 @ 17:[address] 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 Smoking Status: Former smoker how long ago did patient quit smoking: He quit smoking in 1982 alcohol intake: never details: quit alcohol in 1982 substance use type: does not use ROS Constitutional Constitutional: Reports weakness; Denies anorexia, change in weight, chills, fatigue, fever(s) or night sweats Eyes Eyes: Denies blurry vision, change in vision, eye pain or loss of vision ENT HEENT: Denies abnormal hearing, dysphagia, headache(s), hearing loss, nasal congestion or sore throat Cardiovascular Cardiovascular: Denies chest pain, dyspnea on exertion, edema, lightheadedness, orthopnea, palpitations, paroxysmal nocturnal dyspnea or syncope Respiratory/Chest Respiratory/Chest: Denies cough, dyspnea, shortness of breath at rest, shortness of breath with exertion or wheezing Gastrointestinal Gastrointestinal: Reports constipation; Denies abdominal pain, diarrhea, dyspepsia, hematemesis, hematochezia, nausea or vomiting Genitourinary Genitourinary: Denies dysuria, hematuria, nocturia, urinary frequency, urinary hesitancy, urinary incontinence or urinary urgency Musculoskeletal Musculoskeletal: Reports abnormal gait, back pain, radiating pain into limb and stiffness; Denies joint pain, joint swelling or neck pain Neurologic Neurologic: Denies confusion, disequilibrium, dizziness, focal weakness, headache(s), paresthesias, seizures or tremor(s) Psychiatric Psychiatric: Denies anxiety, depression, homicidal ideation or suicidal ideation Endocrine Endocrinology: Denies change in body appearance, polydipsia or polyuria Hematologic/Lymphatic Hematologic/Lymphatic: Denies easy bleeding, easy bruising or lymphadenopathy Allergic/Immunologic Allergic/Immunologic: Denies rhinitis, eczemia or asthma Vital Signs Vital Signs Vital Signs: 12/01/21 17:04 12/01/21 21:15 12/02/21 06:00 Temperature 98.4 F 98.2 F Temperature Source Oral Temporal Pulse Rate 76 73 Pulse Strength Weak (1+) Respiratory Rate 16 18 Blood Pressure 113/68 114/77 Blood Pressure Mean 83 89 Blood Pressure Source Monitor Monitor Blood Pressure Position Semi-Fowlers Semi-Fowlers Blood Pressure Location Right Arm Right Arm Pulse Ox 99 100 Oxygen Delivery Method Room Air Room Air 12/02/21 08:05 Temperature 96.7 F L Temperature Source Oral Pulse Rate 72 Pulse Strength Respiratory Rate 16 Blood Pressure 135/75 H Blood Pressure Mean 95 Blood Pressure Source Monitor Blood Pressure Position Semi-Fowlers Blood Pressure Location Right Arm Pulse Ox 97 Oxygen Delivery Method Weight Weight: 223 lb Body Mass Index (BMI) 30.2 Physical Exam Const alert, oriented x3 and no apparent distress Constitutional Narrative: Appears comfortable sitting in the recliner at the bedside. Denies pain at the present time and he did much better with therapy today than yesterday with no buckling of the legs today. General Appearance: cooperative HEENT normocephalic and moist oral mucous membranes Eyes PERRL, EOMs intact bilaterally, conjunctivae normal and no scleral icterus Neck supple Neck Narrative: the pain he normally has in his neck has resolved with the initiation of Decadron General: trachea midline Chest Chest: symmetrical chest wall rise Resp normal respiratory effort and clear to auscultation bilaterally Effort and Inspection: able to speak in complete sentences Cardio regular rate, regular rhythm, S1 normal heart sound, S2 normal heart sound, no murmurs, no rub and no gallops Cardio Narrative: no ectopy GI normal to inspection, nondistended, normoactive bowel sounds, soft to palpation and non-tender GI Narrative: no guarding......he is feeling bloated and has not had a BM in 1 week Extremity normal capillary refill, no calf tenderness and no pedal edema Peripheral Pulses: Yes pulses 2+ throughout Skin Skin Narrative: will examine the incision when it is OK to DC the dressing. There is no erythema extending beyond the CXR and the dressing is dry. Neuro oriented x3, CN's II-XII intact bilaterally and moves all extremities Neuro Narrative: decreased sensation in the LLE. Knees did not buckle with therapy today. Psych mental status grossly normal, thought process normal, cooperative, affect normal and activity/motor behavior normal Results Lab / Micro Data Result Diagrams: 12/02/21 05:36 12/02/21 05:36 Labs: Laboratory Results - last 24 hr 12/02/21 05:36: WBC 9.4, RBC 3.54 L, Hgb 10.9 L, Hct 32.5 L, MCV 91.8, MCH 30.8, MCHC 33.5, RDW Std Deviation 43.3, RDW Coeff of Pancho 12.9, Plt Count 237, MPV 9.9, Immature Gran % (Auto) 0.500, Neut % (Auto) 80.3 H, Lymph % (Auto) 14.7 L, Lander % (Auto) 4.4, Eos % (Auto) 0.0, Baso % (Auto) 0.1, Absolute Neuts (auto) 7.6, Absolute Lymphs (auto) 1.38, Nucleated RBC % 0 12/02/21 05:36: Sodium 139, Potassium 4.4, Chloride 107, Carbon Dioxide 26.0, Anion Gap 6, BUN 18, Creatinine 0.68 L, Estim Creat Clear Calc 78.68, Est GFR (MDRD) Af Amer 149, Est GFR (MDRD) Non-Af 123, BUN/Creatinine Ratio 26.4 H, Glucose 149 H, Calcium 8.7, Phosphorus 3.6, Magnesium 2.6, Total Bilirubin 0.40, AST 26, ALT 41, Alkaline Phosphatase 62, Total Protein 6.6, Albumin 2.8 L, Globulin 3.8, Albumin/Globulin Ratio 0.7 L Assessment & Plan Assessment/Plan (1) Physical debility: (2) Lumbar stenosis: (3) History of lumbar laminectomy for spinal cord decompression: (4) History of lumbar fusion: (5) Acute low back pain: (6) Radicular pain of right lower extremity: (7) Left leg paresthesias: (8) Radicular pain of left lower extremity: (9) Hypoxemia requiring supplemental oxygen: (10) Obstructive sleep apnea: (11) Acute blood loss anemia: PLAN: PLAN PT for gait stability OT for ADL's Analgesics as needed Bowel protocol - He is constipated so he is going to get Dulcolax 10 mg PO and a rectal suppository. He has not had a BM for 1 week now. Fall precautions Assess for Anxiety/Depression GI prophylaxis not necessary. He denies heartburn, GI upset/nausea/abd pain. He has no hx of PUD DVT prophylaxis with JUAN ramos and SCD's.......no anticoagulation due to the recent Lumbar laminectomy and fusion. Follow up with Dr. Cruz and PCP following DC from [facility] AM lab including CMP, CBC, Mag and Phos - was reviewed. Recheck a HGB in a few days. He received his 4th of 4 total Decadron injections today. I am anticipating that as the steroids wear off the pain will increase. I feel he needs to be in rehab.....he was having intractable pain at home and could not ambulate or stand on his own. His has Parkinson's disease and she can not assist him. He seems to be tolerating the Gabapentin without adverse side effects and the pain is burning and shooting down the R leg and it increases with sitting. If the pain gets worse he has a narcotic ordered PRN but I would go up on the Gabapentin dose. Unit Exclusion This patient is an acute care inpatient being housed in the excluded unit because of capacity issues related to the disaster or emergency.: Yes Charges/Coding Visit Charges Inpatient E&M: 82683 Init Hosp L2
--- NOTE | 2021-12-02 11:53 | PCM.RU.PYE ---
Admission Information Primary Diagnosis:: Debility due to intractable pain post recent Laminectomy and fusion at L4-5 and L5-S1. Status Changes from Prescreening?: No changes Identified Actual Problem List:: Skin Intergrity, Pain, ALteration in Cmfrt, Mobility Impaired, Self Care Deficit and Alteration-Leisure Activ. Potential Problem List:: DVT, Bleeding, Infection, UTI, Aspiration, Falls, Skin Integrity and Depression Risk of Complications DVT: JUAN Peralta and - (ACD's when in bed...no anticoagulation he is S/P lumbar laminectomy and fusion.) Bleeding: Monitor Lab Values, Nursing to Teach Precautions for anti-coagulation therapy., Wound, if applicable, to be assessed every shift. and Stroke patients assessed for lethargy or change in status. Infection: Clinical Staff to Monitor for S/S of infection: and S/S of infection include fever, redness, warmth, etc. Urinary Tract Infection: Monitor for frequency, burning, discomfort, or incontinence. and Nursing will obtain urine sample for urinalysis and C&S when ordered. Aspiration: Clinical staff will monitor for coughing, drooling, congestion., Speech will evaluate swallowing and dsyphasia. and Nursing will monitor patient swallowing during meals. Falls: Patient will be evaluated for Fall Precautions and Patient will be placed on Fall Precautions as indicated per protocol. Skin Breakdown: Nursing will assess skin daily using assessment tool. and Nursing will place on Skin Breakdown Precautions as indicated. Pain: Clinical staff will assess patient's pain level per protocol., Medications will be given, if needed, and the pain level reassessed. and Other methods: Massage, distraction, decrease stimulus, etc. used PRN. Plan of Care Patient requires physician specializing in physical medicine and rehab oversight to provide close medical supervision of rehab issues including: Pain Management, Sleep Problems, Bowel and Bladder, Medical and co-morbidity Management, DVT prophylaxis, Rehabilitation Leadership and Coordination of treatment team Patient needs Physical Therapy: For a minimum of 1 hour and At least 5 out of 7 days Patient needs Physical Therapy to improve:: Mobility, Strengthening, Transfers, Stretching, ROM, Endurance, Stairs, Gait and Balance Patient needs Occupational Therapy: For a minimum of 1 hour and At least 5 out of 7 days Patient needs Occupational Therapy to improve ADL's incl.: Eating, Grooming, Bathing, Dressing, Toileting, Toilet transfers, Community Reintegration, Higher functioning activities, Household tasks, Adaptive Equipment, Splinting and Other activities as determined Patient requires 24/7 Rehabilitation Nursing for: Pain Issues, Identifying and preventing risk factors, Monitoring and reporting current medical conditions, Assisting with ambulation, transfer, and all ADL's, Teaching patients about disease process and medications, Family teaching, Providing safe environment, Bowel and Bladder Issues, Skin integrity and Medication Management Patient needs Self Sealing Fuel Tank Repairer/ Case Management for: Discharge Planning, Arranging Home Equipment or Services and Family Interventions Patient needs Dietary and Nutrition Services for: Adequate Nutrition, Nutritional Supplements and Nutritional Education Goals Patient will remain: free from falls and or injury at time of discharge. Patient will perform bed mobility at: MOD I level of assist. Patient will complete transfers from bed to chair at: MOD I level of assist. Patient will ambulate: 100 feet, with LRD and - (500 feet with wheeled walker at standby assist on various surfaces) Patient will complete upper body dressing at: MOD I level of assist. Patient will complete lower body dressing at: MOD I level of assist. (with AE while maintaining the back precautions) Patient will complete toileting at: MOD I level of assist. (At distant supervision level) Patient will perform bathing at: MOD I level of assist. Patient will complete grooming at: MOD I level of assist. Patient will complete home management skills at: MOD I level of assist. Patient will achieve: 12 stairs (With 1 handrail at standby assist) and - (1 curb step) Patient will have pain level of: of 3 or less Patient's skin will: remain intact Patient will receive: adequate nutrition. Discharge Planning Pt Prognosis for Sig. Practical Improv. w/in Reasonable Time: Good Estimated Length of stay (days): 10 Anticipated D/C Destination: Home Was Preadmission Assessment Accurate?: Yes
[2021-12-02] MEDS: Bisacodyl 10 MG Suppository RC (14:40)
[2021-12-02 19:26] VITALS: BP 119/57; PULSE 88; RESP 16; TEMP 36.7; O2SAT 99
[2021-12-02] MEDS: Atorvastatin Calcium 40 MG Tablet PO (20:41)
[2021-12-02 22:00] VITALS: PULSE 88; RESP 16; O2SAT 99
[2021-12-03] MEDS: Bisacodyl 5 MG Tablet 10 MG PO (05:28)
[2021-12-03] MEDS: Gabapentin 300 MG Capsule PO ×3 (05:28→21:02)
[2021-12-03] MEDS: Acetaminophen 500 MG Tablet 1000 MG PO ×3 (05:28→21:02)
[2021-12-03] MEDS: 0.9% Saline Lock 10 ML Syringe IV ×2 (05:39→17:07)
[2021-12-03 07:37] VITALS: O2SAT 100
--- NOTE | 2021-12-03 07:47 | CPS ---
Patient wears 1L at HS
[2021-12-03 07:49] VITALS: BP 106/64; PULSE 65; RESP 16; TEMP 36.1; O2SAT 100
[2021-12-03] MEDS: Senna/Docusate Sodium 1 Tablet 2 TABLET PO ×2 (08:11→21:02)
[2021-12-03] MEDS: Cholecalciferol (VIT D3) 25 MCG TABLET (1,000 UNITS) 50 MCG PO (08:12)
[2021-12-03 18:55] VITALS: BP 101/81; PULSE 72; RESP 14; TEMP 36.9; O2SAT 97
[2021-12-03] MEDS: Atorvastatin Calcium 40 MG Tablet PO (21:02)
[2021-12-03 22:00] VITALS: PULSE 72; RESP 16; O2SAT 97
[2021-12-04] MEDS: Acetaminophen 500 MG Tablet 1000 MG PO ×3 (06:21→19:57)
[2021-12-04] MEDS: Gabapentin 300 MG Capsule PO ×3 (06:21→19:58)
[2021-12-04] MEDS: 0.9% Saline Lock 10 ML Syringe IV (06:29)
[2021-12-04 07:17] VITALS: BP 112/67; PULSE 68; RESP 16; TEMP 36.1; O2SAT 99
[2021-12-04] MEDS: Cholecalciferol (VIT D3) 25 MCG TABLET (1,000 UNITS) 50 MCG PO (08:42)
[2021-12-04] MEDS: Senna/Docusate Sodium 1 Tablet 2 TABLET PO ×2 (08:42→19:57)
[2021-12-04 11:35] VITALS: O2SAT 96
[2021-12-04 19:35] VITALS: BP 111/67; PULSE 80; RESP 16; TEMP 36.3; O2SAT 98
[2021-12-04 19:45] VITALS: PULSE 80; RESP 17; O2SAT 98
[2021-12-04] MEDS: Atorvastatin Calcium 40 MG Tablet PO (19:58)
--- NOTE | 2021-12-05 02:41 | NURSING ---
Reviewed and agree with HAND HEEL SEAT FITTER documentation and assessment charting.
[2021-12-05] MEDS: Acetaminophen 500 MG Tablet 1000 MG PO ×3 (05:44→21:13)
[2021-12-05] MEDS: Gabapentin 300 MG Capsule PO ×3 (05:44→21:13)
[2021-12-05 07:48] VITALS: BP 100/60; PULSE 70; RESP 18; TEMP 36.7; O2SAT 98
[2021-12-05] MEDS: Cholecalciferol (VIT D3) 25 MCG TABLET (1,000 UNITS) 50 MCG PO (07:51)
[2021-12-05] MEDS: Senna/Docusate Sodium 1 Tablet 2 TABLET PO ×2 (07:51→21:12)
[2021-12-05 21:00] VITALS: BP 116/60; PULSE 91; RESP 100; RESP 16; TEMP 37; O2SAT 100
[2021-12-05] MEDS: Atorvastatin Calcium 40 MG Tablet PO (21:13)
--- NOTE | 2021-12-06 00:53 | NURSING ---
2100 during clinical findings pt reports that he does not have any pain until he stand up then he get the sharp radiating pain in his rt leg just briefly, then he is fine. pt is fearful that the pain will come back like before.pt stated that maybe he overdid it today and monday with exercises , also pt reports that he has numbness and tingling , to his upper anterior thighs. pt states that he is tired and should sleep well.
[2021-12-06] MEDS: Acetaminophen 500 MG Tablet 1000 MG PO ×3 (05:31→20:26)
[2021-12-06] MEDS: Gabapentin 300 MG Capsule PO ×3 (05:31→20:26)
[2021-12-06 07:34] VITALS: BP 100/60; PULSE 82; RESP 18; TEMP 36.1; O2SAT 100
[2021-12-06] MEDS: Cholecalciferol (VIT D3) 25 MCG TABLET (1,000 UNITS) 50 MCG PO (08:20)
[2021-12-06] MEDS: Senna/Docusate Sodium 1 Tablet 2 TABLET PO ×2 (08:20→20:26)
--- NOTE | 2021-12-06 09:59 | PCM.PROGNOTE ---
Subjective Subjective Marisabel was seen on TEAM rounds today. His Katja was present in the room for rounds. They both feel that Marisabel is ready for DC tomorrow. Afebrile VSS Maintaining appropriate oxygen saturation on RA Oral intake is good He is sleeping well. Discussed with nursing - no problems that need addressed Reviewed the PT/OT/ST notes Medication list reviewed. Has not had any narcotics since presenting to the acute rehab unit. He states pain is controlled adequately with scheduled Tylenol and gabapentin. Denies chest pain, shortness of breath, hemoptysis, calf pain, dysuria, lightheadedness, nausea/vomiting/abdominal pain. Objective Data Objective Data Vital Signs: Vital Signs Temp Pulse Resp BP Pulse Ox 97.0 F L 82 18 100/60 100 12/06/21 07:34 12/06/21 07:34 12/06/21 07:34 12/06/21 07:34 12/06/21 07:34 Oxygen Flow Rate (L/min) 100 Oxygen Delivery Method Room Air Weight: 227 lb 1.218 oz Body Mass Index (BMI) 30.2 Intake & Output: Intake and Output for Last 24 Hours 12/04/21 12/05/21 12/06/21 23:59 23:59 23:59 Intake Total 1500 / 1500 Output Total 600 / 600 1500 / 1500 1000 / 1000 Balance -600 / -600 0 / 0 -1000 / -1000 Lab / Micro Data Result Diagrams: 12/02/21 05:36 12/02/21 05:36 Physical Exam Const alert, oriented x3 and no apparent distress General Appearance: cooperative Resp normal respiratory effort and clear to auscultation bilaterally Cardio regular rate, regular rhythm, no murmurs and no gallops GI normal to inspection, nondistended, normoactive bowel sounds, soft to palpation and non-tender Extremity no calf tenderness and no pedal edema Skin General Skin Exam: no breakdown Rashes: no rashes Wound Narrative: The lumbar incision is intact with no erythema, no significant swelling and no purulent discharge. Neuro oriented x3 and CN's II-XII intact bilaterally Assessment & Plan Assessment/Plan (1) Acute blood loss anemia: (2) Physical debility: (3) History of lumbar fusion: (4) History of lumbar laminectomy for spinal cord decompression: (5) Radicular pain of right lower extremity: (6) Acute low back pain: PLAN: 1. Continue therapy 2. Continue the current pain regimen. Charges/Coding Visit Charges Inpatient E&M: 53420 Subs Hosp L2
--- NOTE | 2021-12-06 13:41 | CASEMGMT ---
Social Work IDT met with patient and for Team meeting. Discussed patient's progress in PT/OT and nursing. Pt progressing well. Explained Medicare approved 11 days with EDC 12/12. Pt requesting to DC 12/07. and IDT agreeable. Pt wishes to follow up with Dr. Cruz on 12/17 to get his orders for continued therapy. Therapy agreeable and will provide HEP. No DME needs. to transport. Plan: DC home with 12/07, no needs VALARIE WalkerW
[2021-12-06] MEDS: oxyCODONE 5 MG Tablet PO (20:26)
[2021-12-06] MEDS: Atorvastatin Calcium 40 MG Tablet PO (20:26)
[2021-12-06 20:30] VITALS: BP 106/62; PULSE 91; RESP 18; TEMP 36.8; O2SAT 99
[2021-12-07] MEDS: Gabapentin 300 MG Capsule PO ×2 (05:42→13:50)
[2021-12-07] MEDS: Acetaminophen 500 MG Tablet 1000 MG PO ×2 (05:42→13:50)
[2021-12-07 06:34] VITALS: O2SAT 98
[2021-12-07 07:11] VITALS: BP 90/50; PULSE 75; RESP 16; TEMP 36.6; O2SAT 100
[2021-12-07] MEDS: Senna/Docusate Sodium 1 Tablet 2 TABLET PO (08:01)
[2021-12-07] MEDS: Cholecalciferol (VIT D3) 25 MCG TABLET (1,000 UNITS) 50 MCG PO (08:01)
--- NOTE | 2021-12-07 10:05 | DCINST_ITS ---
Discharge Instructions Diet Discharge Diet: No restrictions Activity Discharge Activity: May Not Drive, May Shower, Use Walker and - (May use a cane in the house. ) Ice area for (Minutes): 10 Weight Bearing Status: Full weight bearing Lifting Restrictions: 5 lbs Keep extremity elevated above heart level: Legs Dressing / Incision Call your doctor if your incision/area has: Increased Pain/ Swelling, Increased Redness, Foul Smelling Discharge and Swelling at the incision site Call your doctor if you observe: Fever of 101 or Higher, Inability to have a bowel movement, Shortness of breath, Dizziness, Fainting spells, Chest pain, Increased palpitations (irregular heartbeat), Calf discomfort and Uncontrolled pain Cleanse incision/area with: Soap & Water and Keep Dressing Clean & Dry Additional Dressing/Incision Instructions:: OK to cover the incision with a dry dressing after cleaning daily. Katja should look at the incision daily and if there is increasing redness, increased swelling or any discharge call Dr. Cruz for advice. Follow Up Care Please Follow Up With: Abiel Cruz DO Test Results: Test results from this visit will be discussed in further detail a t your follow-up appointment, if applicable. Pending Tests Upon Discharge: none Discharge Plan Admission Admit Date/Time: 12/01/21 16:54 Primary Reason for Your Visit: Physical debility due to lumbar canal stenosis and recent lumbar surgery Attending Provider: Malorie Jacobsen Instructions Patient Instructions: Spinal Fusion: Posterior Lumbar, Fusion Lumbar Dc, ED Deep Vein Thrombosis (DVT) Additional Instructions / Restrictions: 1. Remember your back precautions: 1. No bending at the waist 2. No lifting more than 5 lbs 3. No twisting 2. Always wear the brace when you are up on your feet and ambulating. 3. Check the incision every day and report any increasing redness, increasing swelling around the incision or purulent discharge to Dr. Cruz. Also report any fevers or shaking chills. 4. You are not going to be pain free yet. You will most likely be stiff in the mornings when getting out of bed but, this loosens up with activity. Do not take any anti-inflammatory drugs such as Motrin or Alleve because they can interfere with the bone fusing. Take Tylenol or Oxycodone if you are in pain. If you are in pain you are going to be less active and you will not do as well when you start therapy. There is a difference between discomfort and pain. If the pain is 4 or greater consider taking an Oxycodone. 5. Do not sit for greater than 1 hour without getting up and walking a little. Walking helps with stiffness and also helps to prevent blood clots. 6. If you have pain in your calf or swelling of the ankle report this to Dr. Cruz or to your PCP. IF you have chest pain or sudden shortness of breath call your PCP or Dr. Cruz or go to an ER. 7. It was a pleasure to meet you Marisabel. I wish you a good recovery. Do not try to do more than you were told to do. It can take 3-6 months for the bones in the spine to fuse and you do not want to interrupt the process by bending, lifting or twisting. If you have any questions after you leave rehab please do not hesitate to call me. Office: [phone] Discharge Orders/Prescriptions Prescriptions: New acetaminophen 500 mg Tablet 1,000 mg PO Q8 PRN (Reason: fever or pain) Qty: 0 RF: 0 sennosides-docusate sodium [Stool Softener-Stimulant Laxat] 8.6-50 mg Tablet 2 tab PO BID Qty: 60 RF: 0 Continued atorvastatin 40 mg Tablet 40 mg PO QHS RF: 0 cholecalciferol (vitamin D3) [Vitamin D3] 50 mcg (2,000 unit) Tablet 50 mcg PO DAILY RF: 0 gabapentin 300 mg capsule 300 mg PO TID RF: 0 Referrals / Follow Up: VANITA DING [Other] Abiel Cruz DO [STAFF PHYSICIAN] - 12/17/21 1:15 pm (12/17/2021 at 1315.) Disposition Disposition (needs filled in before D/C Order can be placed): Home, Self Care
[2021-12-07 10:34] VITALS: BP 90/50; PULSE 75; RESP 16; TEMP 36.6; O2SAT 100
--- NOTE | 2021-12-07 10:37 | DS.PCM_ITS ---
Providers Date of Admission: 12/01/21 Date of Discharge: 12/07/21 Primary Care Physician: VANITA DING Reason For Visit: DIBILITY Diagnosis Discharge Diagnosis (1) Physical debility: Status: Acute Code(s): R53.81 - Other malaise (2) Lumbar stenosis: Status: Chronic Code(s): M48.061 - Spinal stenosis, lumbar region without neurogenic claudication (3) Left leg paresthesias: Status: Acute Code(s): R20.2 - Paresthesia of skin (4) Radicular pain of left lower extremity: Status: Resolved Code(s): M54.10 - Radiculopathy, site unspecified (5) History of lumbar laminectomy for spinal cord decompression: Status: Acute Code(s): Z98.890 - Other specified postprocedural states (6) History of lumbar fusion: Status: Acute Code(s): Z98.1 - Arthrodesis status (7) Acute low back pain: Status: Acute Code(s): M54.50 - Low back pain, unspecified (8) Radicular pain of right lower extremity: Status: Acute Code(s): M54.10 - Radiculopathy, site unspecified (9) Hypoxemia requiring supplemental oxygen: Status: Acute Code(s): R09.02 - Hypoxemia; Z99.81 - Dependence on supplemental oxygen (10) Obstructive sleep apnea: Status: Chronic Code(s): G47.33 - Obstructive sleep apnea (adult) (pediatric) (11) Acute blood loss anemia: Status: Acute Code(s): D62 - Acute posthemorrhagic anemia Plan: [place] home. Will follow up with Dr. Cruz on 12/17/21. Medications at Discharge Home Medications atorvastatin 40 mg PO QHS 11/11/21 cholecalciferol (vitamin D3) [Vitamin D3] 50 mcg PO DAILY 11/11/21 gabapentin 300 mg PO TID 11/30/21 acetaminophen 1,000 mg PO Q8 PRN #0 tab 12/07/21 sennosides-docusate sodium [Stool Softener-Stimulant Laxat] 2 tab PO BID #60 tab 12/07/21 Hospital Course Operations - (Lumbar laminectomy and fusion on 11/25/[address] Cruz. ) Procedures None Summary of Care Provided Minutes Spent on Discharge: 35 Hospital Course: KALYN BROWN, is a 65YO M with a PMH of RODRIGO (wears BIPAP), HDL, obesity, osteoarthritis, tobacco dependence, COVID infection in October of 2020 and Lumbar canal stenosis at L4-5 and L5-S1 with neurogenic claudication. He had chronic back pain with radiation to the LLE and paresthesias. He failed conservative therapy and he was taken to surgery by Dr. Cruz on November 25, 2021 for laminectomies/decompression and fusion of L4-5 and L5-S1 with allograft for fusion. He had a CSF leak during the surgery and it was repaired per the progress notes from that admission. Post operatively he c/o cephalgia and this resolved with removal of the drain. He elected to go ho ia at [facility] and he was discharged on 09/28/22. He returned to the ED on 11/30/21 c/o uncontrolled/intractable pain in the back and the RLE. He was unable to bear weight or ambulate. MRI of the lumbar spine showed an epidural fluid collection at L4/L5 extending superiorly to the level of L2/L3. Dr. Cruz reviewed the MRI and felt this was a normal finding in a pt post laminectomies and fusion. He was admitted to the hospital for pain control and PT/OT eval. PT found him to have weakness in the legs with repeated episodes of his legs buckling. He took assist of 2 to stand him. Both OT/PT recommended DC to acute rehab. He was transferred to the acute rehab unit at [facility] on 12/01/21 for 3 hours of therapy daily to restore function/independence to the level prior to the surgery or better. He received 4 dose of IV Decadron and the pain improved significantly. He was started on Scheduled Tylenol 1,000 mg PO Q 8H and PRN Oxycodone was ordered. His performance in therapy improved significantly after the IV steroids and he progressed rapidly in therapy. He c/o pain, collin when getting up from a seated position to standing. He had not taken any Oxycodone during his rehab admission and I suggested he try and Oxycodone prior to going home. He took 5 mg at bedtime on 12/06/21 and had less pain throughout the night and less trouble getting out of bed in the AM. He had no adverse reactions to the Oxycodone. Prior to discharge Marisabel was able to ambulate outside using a cane at standby assist for 4000 feet. He was able to ascend/descend 12 stairs with 1 handrail at standby assist. He was able to demonstrate grooming/upper body dressing/lower body dressing tasks at a mod I level. He is supervision with shower transfer and bathing. Marisabel and his Katja felt comfortable with Marisabel being discharged early and he was discharged home on 12/07/21. He will follow up with his PCP in 7-10 days and he has an appt with Dr. Cruz on 12/17/21 to remove the sutures. At the time of DC the lumbar incision was intact with with no dehiscence, no purulent DC and no erythema. He had all the DME he needed at home. Physical Exam Const alert, oriented x3, no apparent distress and well nourished General Appearance: cooperative and well developed HEENT normocephalic and head/scalp atraumatic Eyes PERRL and EOMs intact bilaterally Neck supple Resp normal respiratory effort, normal air movement and clear to auscultation bilaterally Effort and Inspection: Negative for tachypneic or respiratory distress Cardio regular rate, regular rhythm, S1 normal heart sound, S2 normal heart sound, no murmurs, no rub and no gallops GI normal to inspection, nondistended, normoactive bowel sounds, soft to palpation and non-tender GI Narrative: Having regular BM's Extremity normal capillary refill, no clubbing, cyanosis or edema and no calf tenderness Skin Skin Narrative: Incision is intact with no dehiscence, no erythema, no swelling and no purulent discharge. Rashes: no rashes Neuro CN's II-XII intact bilaterally Psych affect normal Appearance: appropriate Weight / BMI Weight Weight: 227 lb 1.218 oz Body Mass Index (BMI) 30.2 ABG / Lab / Microbiology Data Result Diagrams: 12/02/21 05:36 12/02/21 05:36 D/C Instructions Discharge Diet: No restrictions Ice area for (Minutes): 10 Weight Bearing Status: Full weight bearing Keep extremity elevated above heart level: Legs Call your doctor if your incision/area has: Increased Pain/ Swelling, Increased Redness, Foul Smelling Discharge and Swelling at the incision site Call your doctor if you observe: Fever of 101 or Higher, Inability to have a bowel movement, Shortness of breath, Dizziness, Fainting spells, Chest pain, Increased palpitations (irregular heartbeat), Calf discomfort and Uncontrolled pain Cleanse incision/area with: Soap & Water and Keep Dressing Clean & Dry Additional Dressing/Incision Instructions: OK to cover the incision with a dry dressing after cleaning daily. Katja should look at the incision daily and if there is increasing redness, increased swelling or any discharge call Dr. Cruz for advice. Pending Tests Upon Discharge: none Please Follow Up With: Abiel Cruz, Meaningful Use Info Meaningful Use Diagnoses (Choose all that apply): None applicable Discharge Plan Admission Admit Date/Time: 12/01/21 16:54 Primary Reason for Your Visit: Physical debility due to lumbar canal stenosis and recent lumbar surgery Attending Provider: Malorie Jacobsen Instructions Patient Instructions: Spinal Fusion: Posterior Lumbar, Fusion Lumbar Dc, ED Deep Vein Thrombosis (DVT) Additional Instructions / Restrictions: 1. Remember your back precautions: 1. No bending at the waist 2. No lifting more than 5 lbs 3. No twisting 2. Always wear the brace when you are up on your feet and ambulating. 3. Check the incision every day and report any increasing redness, increasing swelling around the incision or purulent discharge to Dr. Cruz. Also report any fevers or shaking chills. 4. You are not going to be pain free yet. You will most likely be stiff in the mornings when getting out of bed but, this loosens up with activity. Do not take any anti-inflammatory drugs such as Motrin or Alleve because they can interfere with the bone fusing. Take Tylenol or Oxycodone if you are in pain. If you are in pain you are going to be less active and you will not do as well when you start therapy. There is a difference between discomfort and pain. If the pain is 4 or greater consider taking an Oxycodone. 5. Do not sit for greater than 1 hour without getting up and walking a little. Walking helps with stiffness and also helps to prevent blood clots. 6. If you have pain in your calf or swelling of the ankle report this to Dr. Cruz or to your PCP. IF you have chest pain or sudden shortness of breath call your PCP or Dr. Cruz or go to an ER. 7. It was a pleasure to meet you Marisabel. I wish you a good recovery. Do not try to do more than you were told to do. It can take 3-6 months for the bones in the spine to fuse and you do not want to interrupt the process by bending, lifting or twisting. If you have any questions after you leave rehab please do not hesitate to call me. Office: [phone] Discharge Orders/Prescriptions Prescriptions: New acetaminophen 500 mg Tablet 1,000 mg PO Q8 PRN (Reason: fever or pain) Qty: 0 RF: 0 sennosides-docusate sodium [Stool Softener-Stimulant Laxat] 8.6-50 mg Tablet 2 tab PO BID Qty: 60 RF: 0 Continued atorvastatin 40 mg Tablet 40 mg PO QHS RF: 0 cholecalciferol (vitamin D3) [Vitamin D3] 50 mcg (2,000 unit) Tablet 50 mcg PO DAILY RF: 0 gabapentin 300 mg capsule 300 mg PO TID RF: 0 Referrals / Follow Up: VANITA DING [Other] Abiel Cruz DO [STAFF PHYSICIAN] - 12/17/21 1:15 pm (12/17/2021 at 1315.) Disposition Disposition (needs filled in before D/C Order can be placed): Home, Self Care Charges/Coding Visit Charges Inpatient E&M: 67249 Disch Hosp
--- NOTE | 2021-12-07 13:57 | NURSING ---
Discharge home with daughter. Discharge instruction, medications and appointments reviewed with pt. Denies questions or concerns
== END 2021-12-07 13:58 | disposition home or self-care (01) | DRG 560 ==
PROVIDERS: Admitting Provider Internal Medicine; Visit Provider Internal Medicine
DX: Z47.89 Encounter for other orthopedic aftercare (principal); D62 Acute posthemorrhagic anemia; G96.00 Cerebrospinal fluid leak, unspecified; Z99.81 Dependence on supplemental oxygen; M48.061 Spinal stenosis, lumbar region without neurogenic claudication; M54.10 Radiculopathy, site unspecified; G47.33 Obstructive sleep apnea (adult) (pediatric); E78.5 Hyperlipidemia, unspecified; M19.90 Unspecified osteoarthritis, unspecified site; E66.9 Obesity, unspecified; Z87.891 Personal history of nicotine dependence; Z98.1 Arthrodesis status; Z79.899 Other long term (current) drug therapy; Z68.30 Body mass index [BMI] 30.0-30.9, adult; Z86.16 Personal history of COVID-19; R09.02 Hypoxemia
CPT/HCPCS: 36415; 80053; 83735; 84100; 85025; 97110; 97116; 97162; 97166; 97530; 97535; 97802; 99251; A4216; G0463

== ENCOUNTER → 2025-06-25 | Outpatient (CLI) | payer MEDICARE, OTHER, SELFPAY ==
[2025-06-25 13:08] LABS: Hematocrit 44.1 % (40-54); Hemoglobin 14.8 g/dL (13.0-16.5); Mean Corp Hgb Conc 33.6 g/dL (32-36); Mean Corpuscular Volume 92.1 fL (80-94); Mean Platelet Vol. 10.6 fl (6.2-12.0); Platelet Count 227 K/mm3 (150-450); RBC Distribution Width CV 13.7 % (11.6-14.6); RBC Distribution Width SD 46.2 fl (35.1-43.9); Red Blood Count 4.79 M/mm3 (4.6-6.2); White Blood Count 8.8 K/mm3 (4.4-11.0)
[2025-06-25 14:20] LABS: Anion Gap 11 (5-15); BUN 18 mg/dL (4-19); BUN/Creat Ratio 20.6 RATIO (10-20); Calcium,Total 9.0 mg/dL (7.6-11.0); Carbon Dioxide 23.6 mmol/L (21.0-32.0); Chloride 106 mmol/L (98-108); Glucose 92 mg/dL (70-99); Potassium 4.4 mmol/L (3.3-5.1)
== END | disposition home or self-care (01) ==
LOC: LAB 11:56
PROVIDERS: Referring Provider Otolaryngology; Visit Provider Otolaryngology
DX: Z01.812 Encounter for preprocedural laboratory examination (principal); Z01.818 Encounter for other preprocedural examination
CPT/HCPCS: 36415; 80048; 85027

== ENCOUNTER → 2025-07-01 | Outpatient (CLI) | payer MEDICARE, OTHER, SELFPAY ==
--- NOTE | 2025-07-01 10:20 | ETH_PTH ---
PATIENT: KALYN BROWN LOC: [facility] U#:[id number] AGE/SX: 69/M ROOM: RE07/01/[address]: Dr. Haresh Johnson MD : [id number] BED: DIS: 07/01/2025 SPEC #: [id number] RECD: 07/01/25 15:12 STATUS: JAZMÍN MCGEE #: [id number] ODETTE: 07/01/25 10:[address]: Haresh Johnson DEPT: SURGICAL PATHOLOGY RECD BY: Erickson Lopez Tissues: A - Ethmoid sinus, NOS B - Ethmoid sinus, NOS Procedures: Decalcification bone/plaque Surgery Specimen Level IV HEADER OPERATION: Open septo rhinoplasty, functional endoscopic sinus surgery PRE-OP DIAGNOSIS: Other chronic sinusitis TISSUE SUBMITTED: A- Left sinus contents, B- Right sinus contents MICROSCOPIC DIAGNOSIS A. Left sinus contents, open septo-rhinoplasty, functional endoscopic sinus surgery: - Nasal sinus mucosa with chronic inflammation, benign B. Right sinus contents, open septo-rhinoplasty, functional endoscopic sinus surgery: * Nasal sinus mucosa with chronic inflammation, benign MICROSCOPIC DESCRIPTION Slides are reviewed. GROSS DESCRIPTION Received in 2 formalin containers labeled with the patient's name and date of . Designated as: A. Left sinus contents is a 1.2 x 0.6 x 0.2 cm aggregate of currie-pink to red tissue fragments. Entirely submitted in 1 cassette. B. Right sinus contents is a 1.9 x 0.9 x 0.4 cm aggregate of currie tissue fragments, light brown mucoid material and portions of bone. Entirely submitted in 1 cassette, following decalcification. GA 07/01/2025 CPT:67002,28926
--- OUTSIDE RECORDS SUMMARY | 2025-07-01 23:01 | XMS RPT_ITS | CCD ---
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 Name Role Phone Laquita Ding Primary Care Provider LAQUITA DING Primary Care Unavailable MARJORIE SEARS Attending Unavailable LAQUITA DING Primary Care Unavailable CYDNEY CANTU Attending Unavailable PK JACOBS Referring Unavailable LAQUITA DING Primary Care Unavailable LAQUITA DING Primary Care Unavailable JOSÉ ANTONIO WOODRUFF Attending Unavailable ZOEY JAMES Consulting Unavailable JOSÉ ANTONIO WOODRUFF Admitting Unavailable EVY KRAMER Primary Care Unavailable Haresh Johnson Referring UnavailHaresh Davis Attending Unavailbessy cutler Medications Current Medications Medication Drug Class(es) Dates Sig (Normalized) Sig (Original) amoxicillin 875 mg oral tablet (2 sources) Penicillin-class Antibacterial Start: 12-20-2024 End: 12-25-2024 take 1 tablet by mouth twice daily amoxicillin (Amoxil) 875 MG tablet Take 1 tablet (875 mg) by mouth 2 times daily for 5 days. 10 tablet 12/20/2024 12/25/2024 Active apixaban 5 mg oral tablet (5 sources) Factor Xa Inhibitor Start: 11-04-2020 apixaban (ELIQUIS) 5 MG TABS tablet 10 mg bid until 11/08 then 5 mg bid 60 tablet 5 11/04/2020 Active Start: 11-02-2020 End: 11-09-2020 apixaban (ELIQUIS) tablet 10 mg benzonatate 100 mg oral capsule (4 sources) Non-narcotic Antitussive Start: 10-16-2020 End: 11-11-2020 take 1 capsule by mouth three times daily as needed for cough benzonatate (TESSALON PERLES) 100 MG capsule Take 1 capsule by mouth 3 times daily as needed for Cough 20 capsule 0 11/04/2020 11/11/2020 Active cholecalciferol 1000 unt oral tablet (13 sources) Vitamin D Start: 10-19-2020 take 2000 [IU] by mouth once daily 2,000 Units, Oral, DAILY, First dose on Mon10/19/20 at 1200 Maintenance Dose. vitamin D (KASANDRA CALCIFEROL) 25 MCG (1000 UT) TABS tablet Take 1,000 Units by mouth daily 0 Active docusate sodium 50 mg / sennosides, longterm 8.6 mg oral tablet (1 source) Start: 10-21-2020 sennosides-docusate sodium (SENOKOT-S) 8.6-50 MG tablet 2 tablet fluticasone propionate 0.05 mg/actuat metered dose nasal spray (6 sources) Corticosteroid Start: 05-22-2025 End: 05-23-2026 take 2 spray(s) nasal route once daily fluticasone (Flonase) 50 MCG/ACT nasal spray Administer 2 sprays into each nostril daily. Shake gently. Before first use, prime pump. After use, clean tip and replace cap. 16 g 12 05/23/2025 05/23/2026 Active meclizine hydrochloride 25 mg oral tablet (6 sources) Antiemetic Start: 12-20-2024 End: 12-30-2024 take 1 tablet by mouth three times daily as needed for dizziness meclizine (Antivert) 25 MG tablet Take 1 tablet (25 mg) by mouth 3 times daily as needed for dizziness for up to 10 days. 30 tablet 12/20/2024 12/30/2024 Active Start: 12-20-2024 End: 12-20-2024 take 25 mg by mouth once 25 mg, Oral, Once, On 05/09 at 0955, For 1 dose melatonin 3 mg oral tablet (2 sources) Start: 11-03-2020 melatonin tabl et 6 mg Start: 10-19-2020 End: 10-25-2020 melatonin tablet 3 mg pantoprazole 40 mg delayed release oral tablet (1 source) Proton Pump Inhibitor Start: 11-02-2020 pantopra zole (PROTONIX) tablet 40 mg phenol 14 mg/ml mouthwash (1 source) Start: 10-23-2020 phenol 1.4 % m outh spray 1 spray QUEtiapine 25 mg oral tablet (3 sources) Atypical Antipsychotic Start: 11-02-2020 QUEtiap ine (SEROQUEL) tablet 25 mg Start: 10-28-2020 End: 11-02-2020 QUEtiapine (SEROQUEL) tablet 100 mg Start: 10-27-2020 End: 10-28-2020 QUEtiapine (SEROQUEL) tablet 50 mg sodium chloride flush 0.9 % injection 3 mL (1 source) Start: 10-16-2020 sodium chlorid e flush 0.9 % injection 3 mL Completed/Discontinued Medications Medication Drug Class(es) Dates Sig (Normalized) Sig (Original) Acetaminophen (5 sources) Start: 05-21-2025 End: 05-22-2025 take 1 tablet by mouth every six hours as needed for pain and fever acetaminophen (Tylenol) tablet 650 mg Start: 12-20-2024 End: 12-20-2024 650 mg, Oral, Once, On Mon at 1120, For 1 dose, Maximum dose of acetaminophen is 4000 mg from all sources in 24 hours. Start: 10-19-2020 acetaminophen (TYLENOL) tablet 650 mg 20 ml albumin human, longterm 250 mg/ml injection (3 sources) Human Serum Albumin Start: 10-26-2020 End: 10-26-2020 albumin human 25 % IV solution 25 g Start: 10-26-2020 End: 10-26-2020 albumin human 25 % IV soluti on Start: 10-24-2020 End: 10-24-2020 albumin human 25 % IV soluti on 25 g albuterol 0.833 mg/ml / ipratropium bromide 0.167 mg/ml inhalant solution (6 sources) Anticholinergic, beta2-Adrenergic Agonist Start: 10-20-2020 End: 11-02-2020 ipratropium-albuterol (DUONEB) nebulizer solution 1 ampule Start: 10-20-2020 End: 10-20-2020 1 ampule, Inhalation, EVERY 4 HOURS, First dose on Mon10/20/20 at 0300 amoxicillin 875 mg / clavulanate 125 mg oral tablet (4 sources) Penicillin-class Antibacterial Start: 05-22-2025 End: 05-22-2025 take 1 tablet by mouth every twelve hours, then take 1 tablet by mouth twice daily 1 tablet (875 mg), Oral, Every 12 hours scheduled (2 times per day), First dose on Mon05/22/25 at 2100, Suspected Indication (Select all that apply): Other, Other Abx Indication: sinusitis Start: 05-22-2025 End: 05-22-2025 take 1 tablet by mouth every twelve hours, then take 1 tablet by mouth twice daily 1 tablet (875 mg), Oral, Every 12 hours scheduled (2 times per day), First dose on Mon05/22/25 at 2100, Suspected Indication (Select all that apply): Other, Other Abx Indication: sinusitis Start: 05-22-2025 End: 06-01-2025 take 1 tablet by mouth every twelve hours amoxicillin-clavulanate (Augmentin) 875-125 MG tablet Take 1 tablet by mouth every 12 hours for 10 days. 20 tablet 05/22/2025 06/01/2025 Active Aspirin (8 sources) Platelet Aggregation Inhibitor, Nonsteroidal Anti-inflammatory Drug Start: 05-21-2025 End: 05-22-2025 aspirin EC tablet 81 mg Start: 11-05-2020 take 1 tablet by jyothi th once daily aspirin 81 MG chewable tablet Take 1 tablet by mouth daily 30 tablet 3 11/05/2020 Active Start: 10-19-2020 take 81 mg by mouth once daily 81 mg, Oral, DAILY, First dose on Mon10/19/20 at 1200 End: 10-19-2020 take 1 tablet by mouth once daily aspirin 81 MG tablet Take 81 mg by mouth daily 0 10/19/2020 Discontinued (LIST CLEANUP) atorvastatin 40 mg oral tablet (20 sources) HMG-CoA Reductase Inhibitor Start: 05-21-2025 End: 05-22-2025 take 40 mg by mouth once daily 40 mg, Oral, Daily, First dose (after last modification) on Mon05/21/25 at 0900 Start: 10-19-2020 End: 11-04-2020 take 1 tablet by mouth once daily atorvastatin (LIPITOR) 40 MG tablet Take 1 tablet by mouth nightly 30 tablet 3 11/04/2020 Active take 1 tablet by jyothi th once daily atorvastatin (Lipitor) 10 MG tablet Take 10 mg by mouth daily. Active bisacodyl 10 mg rectal suppository (3 sources) Stimulant Laxative Start: 05-21-2025 End: 05-22-2025 take 10 mg rectal route every twenty-four hours as needed for constipation 10 mg, Rectal, Daily PRN, constipation, Starting on Mon05/21/25 at 2113, 2nd line for treatment of constipation - give scheduled (in addition to 1st line agent) if no bowel movement in past 48 hours Start: 10-24-2020 bisacodyl (DUL COLAX) suppository 10 mg cefTRIAXone (ROCEPHIN) 2 g in sodium chloride 0.9 % 100 mL IVPB (1 source) Start: 10-25-2020 End: 10-31-2020 cefTRIAXone (ROCEPHIN) 2 g in sodium chloride 0.9 % 100 mL IVPB chlorhexidine gluconate 1.2 mg/ml mouthwash (1 source) Start: 10-24-2020 End: 10-31-2020 chlorhexidine (PERIDEX) 0.12 % solution 15 mL cisatracurium besylate (NIMBEX) 200 mg in sodium chloride 0.9 % 100 mL infusion (1 source) Start: 10-24-2020 End: 10-24-2020 cisatracurium besylate (NIMBEX) 200 mg in sodium chloride 0.9 % 100 mL infusion codeine phosphate 2 mg/ml / guaiFENesin 20 mg/ml oral solution (2 sources) Opioid Agonist Start: 10-16-2020 End: 11-04-2020 take 5 mL by mouth three times daily as needed for cough guaiFENesin-codeine (TUSSI-ORGANIDIN NR) 100-10 MG/5ML syrup Indications: Cough , COVID-19 Take 5 mLs by mouth 3 times daily as needed for Cough for up to 3 days. 50 mL 0 10/16/2020 11/04/2020 Discontinued (Stop Taking at Discharge) dexamethasone 4 mg oral tablet (4 sources) Corticosteroid Start: 11-02-2020 End: 11-04-2020 dexamethasone (DECADRON) tablet 4 mg Start: 10-24-2020 End: 11-01-2020 dexamethasone (DECADRON) inj ection 8 mg Start: 10-20-2020 End: 10-24-2020 take 6 mg by mouth once daily 6 mg, Oral, DAILY, First dose on Mon10/20/20 at 0800, For 10 doses Start: 10-19-2020 End: 10-19-2020 dexamethasone (DECADRON) inj ection 6 mg 100 ml dexmedetomidine 0.004 mg/ml injection (1 source) Central alpha-2 Adrenergic Agonist Start: 10-20-2020 End: 10-24-2020 dexmedetomidine (PRECEDEX) 400 mcg in sodium chloride 0.9 % 100 mL infusion dextromethorphan hydrobromide 2 mg/ml / guaiFENesin 20 mg/ml oral suspension (1 source) Uncompetitive E-vrlsnu-[place]-aspart[place] te Receptor Antagonist, Sigma-1 Agonist Start: 10-19-2020 End: 10-25-2020 take 5 mL by mouth every four hours as needed for cough 5 mL, Oral, EVERY 4 HOURS PRN, Cough, Starting Mon10/19/20 at 1054 diazePAM 5 mg oral tablet (2 sources) Benzodiazepine Start: 05-20-2025 End: 05-21-2025 take 5 mg by mouth once 5 mg, Oral, Once, On Mon05/20/25 at 2340, For 1 dose 1 ml diphenhydrAMINE hydrochloride 50 mg/ml cartridge (2 sources) Histamine-1 Receptor Antagonist Start: 05-21-2025 End: 05-21-2025 25 mg, IntraVENous, Once, On Mon05/21/25 at 0120, For 1 dose 0.4 ml enoxaparin sodium 100 mg/ml prefilled syringe (9 sources) Low Molecular Weight Heparin Start: 05-21-2025 End: 05-22-2025 inject 40 mg by subcutaneous injection every twenty-four hours 40 mg, SubCUTAneous, Every 24 hours scheduled (Daily), First dose on Mon05/22/25 at 0900, Indication of Use: Prophylaxis-DVT/PE , Indications: Prophylaxis of Venous Thromboembolism Start: 10-24-2020 End: 11-02-2020 enoxaparin (LOVENOX) injecti on 110 mg Start: 10-21-2020 End: 10-24-2020 enoxaparin (LOVENOX) injecti on 40 mg Start: 10-20-2020 End: 10-20-2020 enoxaparin (LOVENOX) injecti on 110 mg Start: 10-19-2020 End: 10-19-2020 enoxaparin (LOVENOX) injecti on 80 mg Start: 10-19-2020 End: 10-19-2020 inject 30 mg by subcutaneous injection twice daily 30 mg, Subcutaneous, 2 TIMES DAILY, First dose on Mon10/19/20 at 1200 etodolac 500 mg oral tablet (4 sources) Nonsteroidal Anti-inflammatory Drug End: 10-19-2020 take 1 tablet by mouth twice daily etodolac (LODINE) 500 MG tablet Take 500 mg by mouth 2 times daily 0 10/19/2020 Discontinued (LIST CLEANUP) 2 ml famotidine 10 mg/ml injection (4 sources) Histamine-2 Receptor Antagonist Start: 10-24-2020 End: 10-31-2020 famotidine (PEPCID) injection 20 mg Start: 10-16-2020 End: 11-04-2020 take 20 mg by mouth twice daily 20 mg, Oral, 2 TIMES D AILY, First dose on Mon10/19/20 at 1200 fentanyl (SUBLIMAZE) 1,000 mcg in sodium chloride 0.9% 100 mL infusion (1 source) Start: 10-24-2020 End: 10-31-2020 fentanyl (SUBLIMAZE) 1,000 mcg in sodium chloride 0.9% 100 mL infusion 4 ml furosemide 10 mg/ml injection (3 sources) Loop Diuretic Start: 10-29-2020 End: 10-29-2020 furosemide (LASIX) injection 20 mg Start: 10-24-2020 End: 10-24-2020 furosemide (LASIX) injection 80 mg Start: 10-24-2020 End: 10-24-2020 furosemide (LASIX) 10 MG/ML injection gadopiclenol (Vueway) injection 10 mL (2 sources) Start: 05-21-2025 End: 05-21-2025 take 10 mL intravenously once as needed 10 mL, IntraVENous, IMG once PRN, contrast, Starting on Mon05/21/25 at 1702, For 1 dose iopamidol (Isovue-370) 76 % injection 75 mL (2 sources) Start: 12-20-2024 End: 12-20-2024 take 75 mL intravenously once as needed 75 mL, IntraVENous, IMG once PRN, contrast, Starting on Mon12/20/24 at 1047, For 1 dose 1 ml ketorolac tromethamine 30 mg/ml cartridge (1 source) Nonsteroidal Anti-inflammatory Drug, Cyclooxygenase Inhibitor Start: 10-16-2020 End: 10-16-2020 ketorolac (TORADOL) injection 30 mg labetalol hydrochloride 5 mg/ml injectable solution (2 sources) beta-Adrenergic Katie Start: 05-21-2025 End: 05-22-2025 10 mg, IntraVENous, Every 10 min PRN, high blood pressure, Starting on Mon05/21/25 at 2113, Administer 10 mg IV every 10 minutes if SBP is 220 mmHg or greater OR DBP is 120 mmHg or greater. Notify provider if SBP is 220 mmHg or greater OR DBP is 120 mmHg or greater after 3 consecutive doses. 1 ml LORazepam 2 mg/ml injection (2 sources) Benzodiazepine Start: 10-24-2020 End: 10-24-2020 LORazepam (ATIVAN) injection 1 mg Start: 10-24-2020 End: 10-24-2020 LORazepam (ATIVAN) 2 MG/ML i njection meloxicam 7.5 mg oral tablet (19 sources) Nonsteroidal Anti-inflammatory Drug Start: 05-21-2025 End: 05-22-2025 take 15 mg by mouth once daily 15 mg, Oral, Daily, First dose on Mon05/21/25 at 0900 Start: 01-21-2021 meloxicam (MOB IC) 15 MG tablet 5 ml metoprolol tartrate 1 mg/ml injection (8 sources) beta-Adrenergic Katie Start: 10-31-2020 End: 11-01-2020 metoprolol (LOPRESSOR) injection 5 mg Start: 10-27-2020 End: 11-04-2020 take 1 tablet by mouth twice daily metoprolol tartrate (LOPRESSOR) 50 MG tablet Take 1 tablet by mouth 2 times daily 60 tablet 3 11/04/2020 Active Start: 09-13-2017 End: 10-19-2020 take 1 tablet by mouth once daily metoprolol succinate (TOPROL XL) 25 MG extended release tablet Take 1 tablet by mouth daily 30 tablet 11 09/13/2017 10/19/2020 Discontinued (LIST CLEANUP) 5 ml midazolam 1 mg/ml injection (2 sources) Benzodiazepine Start: 10-25-2020 End: 10-25-2020 midazolam PF (VERSED) injection 4 mg Start: 10-25-2020 End: 10-25-2020 midazolam (VERSED) 5 MG/5ML injection 1 ml morphine sulfate 4 mg/ml cartridge (2 sources) Opioid Agonist Start: 10-20-2020 End: 10-31-2020 morphine (PF) injection 4 mg 2 ml ondansetron 2 mg/ml injection (10 sources) Serotonin-3 Receptor Antagonist Start: 05-20-2025 End: 05-21-2025 4 mg, IntraVENous, Once, On Mon05/20/25 at 2340, For 1 dose Start: 12-20-2024 End: 12-27-2024 take 1 tablet by mouth every eight hours as needed for nausea and vomiting ondansetron ODT (Zofran-ODT) 4 MG disintegrating tablet Take 1 tablet (4 mg) by mouth every 8 hours as needed for nausea or vomiting for up to 7 days. 20 tablet 12/20/2024 12/27/2024 Active Start: 12-20-2024 End: 12-20-2024 4 mg, IntraVENous, Once, On Mon12/20/24 at 0955, For 1 dose Start: 10-19-2020 End: 10-19-2020 ondansetron (ZOFRAN) injecti on 4 mg Start: 10-16-2020 End: 10-19-2020 take 1 tablet by mouth three times daily as needed for nausea ondansetron (ZOFRAN-ODT) 4 MG disintegrating tablet Take 1 tablet by mouth 3 times daily as needed for Nausea or Vomiting 21 tablet 0 10/16/2020 10/19/2020 Discontinued (LIST CLEANUP) Start: 10-16-2020 End: 10-16-2020 ondansetron (ZOFRAN) injecti on 4 mg ondansetron ODT (Zofran-ODT) disintegrating tablet 4 mg (2 sources) Start: 05-21-2025 End: 05-22-2025 take 1 tablet by mouth every eight hours as needed for nausea and vomiting ondansetron ODT (Zofran-ODT) disintegrating tablet 4 mg perflutren lipid microspheres (DEFINITY) injection 0.48 mg (1 source) Start: 12-09-2020 End: 12-09-2020 perflutren lipid microspheres (DEFINITY) injection 0.48 mg polyethylene glycol 3350 10566 mg powder for oral solution (3 sources) Osmotic Laxative Start: 05-21-2025 End: 05-22-2025 take 17 g by mouth every twenty-four hours as needed for constipation 17 g, Oral, Daily PRN, constipation, Starting on Mon05/21/25 at 2113, 1st line for treatment of constipation - give scheduled if no bowel movement in past 24 hours. Start: 10-21-2020 polyethylene g lycol (GLYCOLAX) packet 17 g 1 ml promethazine hydrochloride 25 mg/ml injection (3 sources) Phenothiazine Start: 12-20-2024 End: 12-20-2024 inject 25 mg by intramuscular injection once 25 mg, IntraMUSCular, Once, On Mon12/20/24 at 0910, For 1 dose, Only to be given as IM injection. Start: 10-20-2020 promethazine ( PHENERGAN) tablet 12.5 mg 100 ml propofol 10 mg/ml injection (3 sources) General Anesthetic Start: 10-24-2020 End: 10-24-2020 propofol injection Start: 10-24-2020 End: 10-31-2020 propofol injection Start: 10-24-2020 End: 10-24-2020 propofol 1000 MG/100ML injec tion rocuronium bromide 10 mg/ml injectable solution (1 source) Nondepolarizing Neuromuscular Katie Start: 10-24-2020 End: 10-24-2020 rocuronium (ZEMURON) injection 50 ml sodium chloride 9 mg/ml injection (14 sources) Start: 05-21-2025 End: 05-21-2025 take 50 mL intravenously every hour 50 mL/hr, IntraVENous, Continuous, Starting on Mon05/21/25 at 2130 Start: 12-20-2024 End: 12-20-2024 1,000 mL, IntraVENous, at 1, 000 mL/hr, Administer over 1 Hours, Once, On Mon12/20/24 at 0910, For 1 dose Start: 10-29-2020 End: 10-30-2020 sodium chloride (Inhalant) 3 % nebulizer solution 4 mL Start: 10-24-2020 sodium chlorid e flush 0.9 % injection 10 mL Start: 10-20-2020 sodium chlorid e (OCEAN, BABY AYR) 0.65 % nasal spray 2 spray Start: 10-20-2020 take 10 mL intraveno us route once as needed 10 mL, Intravenous, PRN, Line Care, After every IV line use, Starting Mon10/20/20 at 0243 Start: 10-19-2020 End: 10-24-2020 10 mL, Intravenous, EVERY 12 HOURS SCHEDULED (2 times per day), First dose on Mon10/20/20 at 0900 Start: 10-19-2020 End: 10-31-2020 0.9 % sodium chloride bolus Start: 10-16-2020 End: 10-16-2020 0.9 % sodium chloride bolus vancomycin (VANCOCIN) 1,750 mg in dextrose 5 % 500 mL IVPB (1 source) Start: 10-25-2020 End: 10-26-2020 vancomycin (VANCOCIN) 1,750 mg in dextrose 5 % 500 mL IVPB Problems Active Problems Problem Classification Problem Date Documented Da te Episodic/Chronic Cardiac dysrhythmias (20 sources) Supraventricular tachycardia; Translations: [Supraventricular tachycardia] Onset: 1 09-12-2017 Chronic Conditions associated with dizziness or vertigo (14 sources) Vertigo; Translations: [Dizziness and giddiness] Onset: 5 12-20-2024 Episodic Essential hypertension (20 sources) Essential hypertension; Translations: [Essential (primary) hypertension] Onset: 1 11-04-2020 Chronic Hyperplasia of prostate (20 sources) Benign prostatic hyperplasia; Translations: [Benign prostatic hyperplasia without lower urinary tract symptoms] Onset: 7 01-25-2017 Chronic Open wounds of extremities (4 sources) Laceration of right thumb; Translations: [Laceration without foreign body of right thumb without damage to nail, initial encounter] Onset: 5 06-09-2025 Episodic Other lower respiratory disease (1 source) Cough; Translations: [Cough] Episodic Other nutritional; endocrine; and metabolic disorders (8 sources) Obesity caused by energy imbalance; Translations: [Class 1 obesity due to excess calories without serious comorbidity with body mass index (BMI) of 30.0 to 30.9 in adult] Onset: 1 07-29-2022 Chronic Other upper respiratory infections (6 sources) Sinusitis; Translations: [Chronic sinusitis, unspecified] Onset: 5 12-20-2024 Chronic Phlebitis; thrombophlebitis and thromboembolism (4 sources) Acute deep venous thrombosis of bilateral legs; Translations: [Acute deep vein thrombosis (DVT) of both lower extremities] Onset: 1 11-04-2020 Pneumonia (except that caused by tuberculosis or sexually transmitted disease) (5 sources) Pneumonia due to other virus not elsewhere classified; Translations: [Pneumonia due to COVID-19 virus] Onset: 1 11-04-2020 Episodic Respiratory failure; insufficiency; arrest (adult) (20 sources) Chronic hypoxemic respiratory failure; Translations: [Chronic respiratory failure with hypoxia] Onset: 1 11-24-2020 Chronic Unclassified (1 source) Protein level - finding; Translations: [Elevated troponin] Past or Other Problems Problem Classification Problem Date Documented Da te Episodic/Chronic Other male genital disorders (20 sources) Cyst of epididymis; Translations: [Cyst of epididymis] Onset: 01-25-2017 01-25-2017 Episodic Phlebitis; thrombophlebitis and thromboembolism (20 sources) Acute deep venous thrombosis of bilateral legs; Translations: [Acute embolism and thrombosis of unspecified deep veins of lower extremity, bilateral] Onset: 11-04-2020 11-04-2020 Episodic Respiratory failure; insufficiency; arrest (adult) (20 sources) Acute respiratory distress syndrome; Translations: [Acute respiratory distress syndrome] Onset: 10-24-2020 10-24-2020 Episodic Spondylosis; intervertebral disc disorders; other back problems (8 sources) Chronic low back pain; Translations: [Chronic low back pain without sciatica] Onset: 09-22-2021 07-29-2022 Episodic Syncope (20 sources) Syncope; Translations: [Syncope and collapse] Onset: 09-12-2017 09-12-2017 Episodic Viral infection (20 sources) Other specified viral infection; Translations: [COVID-19] Onset: 10-19-2020 Episodic Results Test Name Value Interpretation Reference Range Facility Basic Metabolic Profile (BMP )on 06-25-2025 BUN/CRE 20.6 RATIO High 10-20 [facility] Comment on above: Performed By: #### L 100.0500, L500.2500 #### [facility] [address] [place], [address] Calcium [Mass/Vol] 9.0 mg/dL Normal 7.6-11.0 [facility] Comment on above: Performed By: #### L 100.0500, L500.2500 #### [facility] [address] [place], [address] Chloride [Moles/Vol] 106 mmol/L Normal 98-108 [facility] Comment on above: Performed By: #### L 100.0500, L500.2500 #### [facility] [address] [place], [address] CO2 [Moles/Vol] 23.6 mmol/L Normal 21.0-32.0 [facility] Comment on above: Performed By: #### L 100.0500, L500.2500 #### [facility] [address] [place], [address] Creatinine [Mass/Vol] 0.86 mg/dL Normal 0.70-1.20 [facility] Comment on above: Performed By: #### L 100.0500, L500.2500 #### [facility] [address] [place], [address] GAP 11 Normal 5-15 [facility] Comment on above: Performed By: #### L 100.0500, L500.2500 #### [facility] [address] [place], [address] GFR/1.73 sq M.predicted among non-blacks MDRD (S/P/Bld) [Vol rate/Area] 93 mL/min/{1.73_m2} Normal >60 [facility] Comment on above: Result Comment: mL/m in/1.73m2 CKD-EPI Creatinine Equation (2020) Performed By: #### L 100.0500, L500.2500 #### [facility] [address] [place], [address] Glucose [Mass/Vol] 92 mg/dL Normal 70-99 [facility] Comment on above: Performed By: #### L 100.0500, L500.2500 #### [facility] [address] [place], [address] Potassium [Moles/Vol] 4.4 mmol/L Normal 3.3-5.1 [facility] Comment on above: Result Comment: Hemo lysis present, Results??could be affected. ?? Performed By: #### L 100.0500, [id number] #### [facility] [address] [place], [address] Sodium [Moles/Vol] 141 mmol/L Normal 133-145 [facility] Comment on above: Performed By: #### L 100.0500, L500.2500 #### [facility] [address] [place], [address] Urea nitrogen [Mass/Vol] 18 mg/dL Normal 4-19 [facility] Comment on above: Performed By: #### L 100.0500, L500.2500 #### [facility] [address] [place], [address] CBC-Complete Blood Cnt No Di ffon 06-25-2025 Erythrocyte distribution width (RBC) [Ratio] 13.7 % Normal 11.6-14.6 [facility] Comment on above: Performed By: #### L 100.0500, L500.2500 #### [facility] [address] [place], [address] Hematocrit (Bld) [Volume fraction] 44.1 % Normal 40-54 [facility] Comment on above: Performed By: #### L 100.0500, L500.2500 #### [facility] [address] [place], [address] Hemoglobin (Bld) [Mass/Vol] 14.8 g/dL Normal 13.0-16.5 [facility] Comment on above: Performed By: #### L 100.0500, L500.2500 #### [facility] [address] [place], [address] MCH (RBC) [Entitic mass] 30.9 pg Normal 27.0-32.0 [facility] Comment on above: Performed By: #### L 100.0500, L500.2500 #### [facility] [address] [place], [address] MCHC (RBC) [Mass/Vol] 33.6 g/dL Normal 32-36 [facility] Comment on above: Performed By: #### L 100.0500, L500.2500 #### [facility] [address] [place], [address] MCV (RBC) [Entitic vol] 92.1 fL Normal 80-94 [facility] Comment on above: Performed By: #### L 100.0500, L500.2500 #### [facility] [address] [place], [address] Platelet mean volume (Bld) [Entitic vol] 10.6 fL Normal 6.2-12.0 [facility] Comment on above: Performed By: #### L 100.0500, L500.2500 #### [facility] [address] [place], [address] Platelets (Bld) [#/Vol] 227 10*3/uL Normal 150-450 [facility] Comment on above: Performed By: #### L 100.0500, L500.2500 #### [facility] [address] [place], [address] RBC (Bld) [#/Vol] 4.79 10*6/uL Normal 4.6-6.2 [facility] Comment on above: Performed By: #### L 100.0500, L500.2500 #### [facility] [address] [place], [address] RDW SD 46.2 fl High 35.1-43.9 [facility] Comment on above: Performed By: #### L 100.0500, L500.2500 #### [facility] [address] [place], [address] WBC (Bld) [#/Vol] 8.8 10*3/uL Normal 4.4-11.0 [facility] Comment on above: Performed By: #### L 100.0500, L500.2500 #### [facility] [address] [place], [address] CBC (H/H, RBC, INDICES, WBC, PLT)on 06-20-2025 Erythrocyte distribution width (RBC) [Ratio] 13.3 % Normal 11.0-15.0 [facility] Comment on above: Performed By: #### 7 600, 175, 00518 #### [facility] [place] [address] Casting Trucker: Anton Bello MD Hematocrit (Bld) [Volume fraction] 46.4 % Normal 38.5-50.0 [facility] Comment on above: Performed By: #### 7 600, 175, 60872 #### [facility] [place] [address] Casting Trucker: Anton Bello MD Hemoglobin (Bld) [Mass/Vol] 15.3 g/dL Normal 13.2-17.1 [facility] Comment on above: Performed By: #### 7 600, 175, 19215 #### [facility] [place] [address] Casting Trucker: Anton Bello MD MCH (RBC) [Entitic mass] 31.5 pg Normal 27.0-33.0 [facility] Comment on above: Performed By: #### 7 600, 175, 10701 #### [facility] [place] [address] Casting Trucker: Anton Bello MD MCHC (RBC) [Mass/Vol] 33.0 g/dL Normal 32.0-36.0 [facility] Comment on above: Result Comment: For adults, a slight decrease in the calculated MCHC value (in the range of 30 to 32 g/dL) is most likely not clinically significant; however, it should be interpreted with caution in correlation with other red cell parameters and the patient's clinical condition. Performed By: #### 7 600, 175, 64447 #### [facility] [place] [address] Casting Trucker: Anton Bello MD MCV (RBC) [Entitic vol] 95.5 fL Normal 80.0-100.0 [facility] Comment on above: Performed By: #### 7 600, 1758, 87362 #### [facility] [place] [address] Casting Trucker: Anton Bello MD Platelet mean volume (Bld) [Entitic vol] 10.5 fL Normal 7.5-12.5 [facility] Comment on above: Performed By: #### 7 600, 175, 47136 #### [facility] [place] [address] Casting Trucker: Anton Bello MD Platelets (Bld) [#/Vol] 221 10*3/uL Normal 140-400 [facility] Comment on above: Performed By: #### 7 600, 175, 64112 #### [facility] [place] [address] Casting Trucker: Anton Bello MD RBC (Bld) [#/Vol] 4.86 10*6/uL Normal 4.20-5.80 [facility] Comment on above: Performed By: #### 7 600, 175, 30609 #### [facility] of [place] [address] Casting Trucker: Anton Bello MD WBC (Bld) [#/Vol] 8.6 10*3/uL Normal 3.8-10.8 [facility] Comment on above: Performed By: #### 7 600, 1759, 87807 #### [facility] [place] [address] Casting Trucker: Anton Bello MD [facility]-2025 Albumin [Mass/Vol] 4.3 g/dL Normal 3.6-5.1 [facility] Comment on above: Performed By: #### 7 600, 175, 65141 #### [facility] [place] [address] Casting Trucker: Anton Bello MD Albumin/Globulin [Mass ratio] 1.8 {ratio} Normal 1.0-2.5 [facility] Comment on above: Performed By: #### 7 600, 175, 79669 #### [facility] [place] [address] Casting Trucker: Anton Bello MD ALP [Catalytic activity/Vol] 62 U/L Normal 35-144 [facility] Comment on above: Performed By: #### 7 600, 175, 57121 #### [facility] [place] [address] Casting Trucker: Anton Bello MD ALT [Catalytic activity/Vol] 15 U/L Normal 9-46 [facility] Comment on above: Performed By: #### 7 600, 175, 16500 #### [facility] [place] [address] Casting Trucker: Anton Bello MD AST [Catalytic activity/Vol] 19 U/L Normal 10-35 [facility] Comment on above: Performed By: #### 7 600, 175, 38922 #### [facility] of [address] [place] [address] Casting Trucker: Anton Bello MD Bilirubin [Mass/Vol] 0.7 mg/dL Normal 0.2-1.2 [facility] Comment on above: Performed By: #### 7 600, 175, 47812 #### [facility] [address], [address] [place] [address] Casting Trucker: Anton Bello MD BUN/CREATININE RATIO SEE NOTE: Normal 6-22 [facility] Comment on above: Result Comment: Not Reported: BUN and Creatinine are within reference range. Performed By: #### 7 600, 175, 83964 #### [facility] of [address], [address] [place] [address] Casting Trucker: Anton Bello MD Calcium [Mass/Vol] 8.7 mg/dL Normal 8.6-10.3 [facility] Comment on above: Performed By: #### 7 600, 1758, 55617 #### [facility] [place] [address] Casting Trucker: Anton Bello MD Chloride [Moles/Vol] 106 mmol/L Normal 98-110 [facility] Comment on above: Performed By: #### 7 600, 175, 39686 #### [facility] [place] [address] Casting Trucker: Anton Bello MD CO2 [Moles/Vol] 26 mmol/L Normal 20-32 [facility] Comment on above: Performed By: #### 7 600, 175, 10426 #### [facility] [place] [address] Casting Trucker: Anton Bello MD Creatinine [Mass/Vol] 0.91 mg/dL Normal 0.70-1.[address] [facility] Comment on above: Performed By: #### 7 600, 175, 28142 #### [facility] [place] [address] Casting Trucker: Anton Bello MD GFR/1.73 sq M.predicted among non-blacks MDRD (S/P/Bld) [Vol rate/Area] 90 mL/min/{1.73_m2} Normal > OR = 60 [facility] Comment on above: Performed By: #### 7 600, 175, 40642 #### [facility] [place] [address] Casting Trucker: Anton Bello MD Globulin (S) [Mass/Vol] 2.4 g/dL Normal 1.9-3.7 [facility] Comment on above: Performed By: #### 7 600, 175, 30630 #### [facility] [place] [address] Casting Trucker: Anton Bello MD Glucose [Mass/Vol] 74 mg/dL Normal 65-99 [facility] Comment on above: Result Comment: Fasting reference interval Performed By: #### 7 600, 1758, 30653 #### [facility] [place] [address] Casting Trucker: Anton Bello MD Potassium [Moles/Vol] 4.4 mmol/L Normal 3.5-5.3 [facility] Comment on above: Performed By: #### 7 600, 175, 16985 #### [facility] [place] [address] Casting Trucker: Anton Bello MD Protein [Mass/Vol] 6.7 g/dL Normal 6.1-8.1 [facility] Comment on above: Performed By: #### 7 600, 175, 90653 #### [facility] [place] [address] Casting Trucker: Anton Bello MD Sodium [Moles/Vol] 142 mmol/L Normal 135-146 [facility] Comment on above: Performed By: #### 7 600, 175, 86958 #### [facility] [place] [address] Casting Trucker: Anton Bello MD Urea nitrogen [Mass/Vol] 20 mg/dL Normal 7-25 [facility] Comment on above: Performed By: #### 7 600, 1759, 62780 #### [facility] [address], [address] [place] [address] Casting Trucker: Anton Bello MD LIPID PANEL, [facility] 090 Cholesterol [Mass/Vol] 144 mg/dL Normal <200 [facility] Comment on above: Order Comment: 0; 0; 0 Performed By: #### 7 600, 175, 51525 #### [facility] [address], [address] [place] [address] Casting Trucker: Anton Bello MD Cholesterol in HDL [Mass/Vol] 51 mg/dL Normal > OR = 40 [facility] Comment on above: Order Comment: 0; 0; 0 Performed By: #### 7 600, 175, 28059 #### [facility] [address], [address] [place] [address] Casting Trucker: Anton Bello MD Cholesterol in LDL [Mass/Vol] 74 mg/dL Normal [facility] Comment on above: Order Comment: 0; 0; 0 Result Comment: Refe rence range: <100 Desirable range <100 mg/dL for primary prevention; <70 mg/dL for patients with CHD or diabetic patients with > or = 2 CHD risk factors. LDL-C is now calculated using the Ivan-Andree calculation, which is a validated novel method providing better accuracy than the Friedewald equation in the estimation of LDL-C. Ivan LARSON et al. SHEILA. 2013;310(19): 4463-4681 (http://education.[employer]/faq/NCQ458) Performed By: #### 7 600, 175, 35182 #### [facility] [address], [address] [place] [address] Casting Trucker: Anton Bello MD Cholesterol.total/Chol esterol in HDL [Mass ratio] 2.8 {ratio} Normal <5.0 [facility] Comment on above: Order Comment: 0; 0; 0 Performed By: #### 7 600, 1759, 14957 #### [facility] [address], [address] [place] [address] Casting Trucker: Anton Bello MD NON HDL CHOLESTEROL 93 mg/dL (calc) Normal <130 [facility] Comment on above: Order Comment: 0; 0; 0 Result Comment: For patients with diabetes plus 1 major ASCVD risk factor, treating to a non-HDL-C goal of <100 mg/dL (LDL-C of <70 mg/dL) is considered a therapeutic option. Performed By: #### 7 600, 175, 72271 #### [facility] [address], [address] [place] [address] Casting Trucker: Anton Bello MD Triglyceride [Mass/Vol] 108 mg/dL Normal <150 [facility] Comment on above: Order Comment: 0; 0; 0 Performed By: #### 7 600, 1759, 72933 #### [facility] [address], [address] [place] [address] Casting Trucker: Anton Bello MD ED Provider Noteon ED Provider Note EMERGENCY DEPARTMENT ENCOUNTER Pt Name: Joseph Brown Birthdate 1955 Date of evaluation: 06/09/2025 ED Provider: Riley Carcamo DO CHIEF COMPLAINT Chief Complaint Patient presents with Finger Laceration Pt arrived to triage for a laceration to right thumb. Pt states he was fixing a picture frame and cut himself on the tin. Bleeding under control at this time HISTORY OF PRESENT ILLNESS (Location/Symptom, Timing/Onset, Context/Setting, Quality, Duration, Modifying Factors, Severity) Note limiting factors. I wore appropriate PPE for the entirety of this encounter. HPI Joseph Brown is a 69 y.o. male who presents to the emergency department for laceration. Patient states he was fixing a metal picture frame when the knife slid through it and he cut himself on a piece of exposed metal from the frame. Immediately controlled bleeding and has not had active bleeding since presenting to the ER. Patient is not up to date on tetanus. Nursing Notes were reviewed. Limitations to history: None Outside historians: None REVIEW OF SYSTEMS Pertinent Positive and Negatives listed in HPI PAST MEDICAL HISTORY Medical History[1] SURGICAL HISTORY Surgical History[2] CURRENT MEDICATIONS Discharge Medication List as of 06/09/2025 4:02 PM CONTINUE these medications which have NOT CHANGED Details atorvastatin (Lipitor) 10 MG tablet Take 10 mg by mouth daily., Historical Med fluticasone (Flonase) 50 MCG/ACT nasal spray Administer 2 sprays into each nostril daily. Shake gently. Before first use, prime pump. After use, clean tip and replace cap., Starting 05/23/2025, Until 05/23/2026, Normal meloxicam (Mobic) 15 MG tablet Take 1 tablet by mouth daily., Historical Med ALLERGIES Patient has no known allergies. FAMILY HISTORY Family History[3] SOCIAL HISTORY Social History[4] SCREENINGS Kermit Coma Scale Best Eye Response: Spontaneous Best Verbal Response: Oriented Best Motor Response: Follows commands Kermit Coma Scale Score: 15 PHYSICAL EXAM ED Triage Vitals [06/09/25 1504] Temp Heart Rate Resp BP 36.3 ?C (97.4 ?F) 85 19 137/76 SpO2 Temp Source Heart Rate Source Patient Position 96 % Temporal Monitor Sitting BP Location FiO2 (%) Right arm -- Physical Exam Constitutional: Appearance: Normal appearance. HENT: Head: Normocephalic and atraumatic. Eyes: Extraocular Movements: Extraocular movements intact. Cardiovascular: Rate and Rhythm: Normal rate. Pulmonary: Effort: Pulmonary effort is normal. Breath sounds: Normal breath sounds. Musculoskeletal: Comments: 4 cm laceration noted to lateral edge of thumb. Full range of motion and sensation intact. Neurological: Mental Status: He is alert. DIAGNOSTIC RESULTS RADIOLOGY (Per Emergency Physician): Interpretation per the Radiologist below, if available at the time of this note: No orders to display LABS: Labs Reviewed - No data to display All other labs were within normal range or not returned as of this dictation. EMERGENCY DEPARTMENT COURSE and DIFFERENTIAL DIAGNOSIS/MDM: Vitals: Vitals: 06/09/25 1504 BP: 137/76 BP Location: Right arm Patient Position: Sitting Pulse: 85 Resp: 19 Temp: 36.3 ?C (97.4 ?F) TempSrc: Temporal SpO2: 96% The patient presented with a chief complaint of laceration. 4 Centimeter right thumb laceration lateral edge of thumb. No additional imaging was required. Verbal consent was obtained for laceration repair. Laceration was cleaned with sterile water prior to procedure. Patient tolerated procedure well and five 5.0 Prolene stitches were used with good approximation. Patient instructed to have stitches removed in 7 to 10 days. Patient given return precautions should erythema up the arm, drainage, fevers, chills develop. Patient stable for discharge at this time Diagnoses as of 06/09/25 1608 Laceration of right thumb without foreign body without damage to nail, initial encounter EED Medications managed: Medications lidocaine (Xylocaine) 1 % injection 5 mL (has no administration in time range) Tdap (BoostRIX) vaccine 0.5 mL (0.5 mL IntraMUSCular Given 06/09/25 1516) PROCEDURES: Unless otherwise noted below, none Procedures FINAL IMPRESSION 1. Laceration of right thumb without foreign body without damage to nail, initial encounter DISPOSITION Discharge 06/09/2025 03:59:45 PM PATIENT REFERRED TO: No follow-up provider specified. DISCHARGE MEDICATIONS: Discharge Medication List as of 06/09/2025 4:02 PM (Comment: Please note this report has been produced using speech recognition software and may contain errors related to that system including errors in grammar, punctuation, and spelling, as well as words and phrases that may be inappropriate. If there are any questions or concerns please feel free to contact the dictating provider for clarification.) Riley Carcamo DO (electronically signed) Em (more content not included)... Normal [facility] ED Provider Note Emergency Department Encounter [facility] ED Patient: Joseph Brown : 1955 Date of Evaluation: 06/09/2025 ED Supervising Physician: Marjorie Sears MD I personally evaluated Joseph Brown and made/approved the management plan and take responsibility for the patient management. This will serve as my Supervisory note and shared attestation. I did perform a substantive portion of the visit including all aspects of the Medical Decision Making. I wore appropriate PPE for the entirety of this encounter. In brief, Joseph Brown is a 69 y.o. that presents to the emergency department for finger laceration. States that he was fixing a metal picture frame when the exposed metal sliced his thumb. Sustained a laceration to the lateral aspect of his right thumb. No active bleeding at this time. Tetanus is not up-to-date. Focused exam: Well-appearing male in no acute distress. Vital signs reviewed and unremarkable. Patient has a 4 cm laceration noted to the lateral edge of the that does not involve the nailbed. It does pass through the DIP joint. He has full range of motion at the DIP and MCP joint of the thumb. There is no active bleeding. No obvious tendon or bony involvement. No bony tenderness. Normal sensation. Brief ED course/MDM: 69-year-old male present emergency room today for finger laceration. Afebrile hemodynamically stable. Sustained a laceration earlier today that was accidental. There is no obvious bony involvement or bony tenderness. I do not think that there is any indication for x-ray merging at this time. Tetanus was updated. Wound was cleaned out well and repaired at the bedside. We did place an aluminum splint in order to help decrease the risk of him ripping out his sutures when he bends his thumb. Patient already has a follow-up appointment in 1 week with his PCP and will be able to get his sutures removed at that time if needed. Educated on risk of infection and keeping his wound clean. Given strict return precautions and discharged in stable condition. Diagnostics interpreted by me: I personally discussed the patient's management with other clinicians: All diagnostic, treatment, and disposition decisions were made by myself in conjunction with the Resident. I also supervised madrigal portions of any procedures performed by the Resident. For all further details of the patient's emergency department visit, please see their documentation. (Comment: Please note this report has been produced using speech recognition software and may contain errors related to that system including errors in grammar, punctuation, and spelling, as well as words and phrases that may be inappropriate. If there are any questions or concerns please feel free to contact the dictating provider for clarification.) Marjorie Sears MD [employer] Marjorie Sears MD 06/09/25 1534 Normal [facility] CBC (HEMOGRAM)on 05-22-2025 Erythrocyte distribution width (RBC) [Ratio] 14.0 % Normal 11.5-15.0 [facility] Comment on above: Performed By: #### L [id number] ####Casting Trucker: HAILEY HERNANDEZ ([phone])[facility] (SBHLAB)[address] Hematocrit (Bld) [Volume fraction] 43.3 % Normal 40.0-52.0 [facility] Comment on above: Performed By: #### L [id number] ####Casting Trucker: HAILEY HERNANDEZ ([id number])[facility]ITAL[facility]ett[facility] MARTINEZRAN (SBHLAB)[address] Hemoglobin (Bld) [Mass/Vol] 14.2 g/dL Normal 13.0-18.0 [facility] Comment on above: Performed By: #### L [id number] ####Casting Trucker: HAILEY HERNANDEZ ([id number])[facility]ITALBettina MARTINEZRAN (SBHLAB)[address] [place] [address] MCH (RBC) [Entitic mass] 30.7 pg Normal 26.0-34.0 [facility] Comment on above: Performed By: #### L [id number] ####Casting Trucker: HAILEY HERNANDEZ ([id number])[facility]ITALBett[facility] MARTINEZRAN (SBHLAB)[address] [place] [address] MCHC 32.8 % Normal 30.5-36.0 [facility] Comment on above: Performed By: #### L [id number] ####Casting Trucker: HALIEY HERNANDEZ ([id number])[facility]ITAL[facility]ett[facility] MARTINEZRAN (SBHLAB)[address] [place] [address] MCV (RBC) [Entitic vol] 93.5 fL Normal 77.0-99.0 [facility] Comment on above: Performed By: #### L [id number] ####Casting Trucker: HAILEY HERNANDEZ ([phone])[facility]ITAL[facility]ett[facility] MARTINEZRAN (SBHLAB)[address] Platelet mean volume (Bld) [Entitic vol] 10.4 fL Normal 9.0-12.7 [facility] Comment on above: Performed By: #### L [id number] ####Casting Trucker: HAILEY HERNANDEZ ([phone])SUMMBettina BURCIAGA (SBHLAB)[address] Platelets (Bld) [#/Vol] 184 10*3/uL Normal 140-440 [facility] Comment on above: Performed By: #### L [id number] ####Casting Trucker: HAILEY HERNANDEZ ([id number])[facility]ITALBettina MARTINEZTSEHOOTSOO[facility] (SBHLAB)[address] RBC (Bld) [#/Vol] 4.63 10*6/uL Normal 4.40-5.90 [facility] Comment on above: Performed By: #### L [id number] ####Casting Trucker: HAILEY HERNANDEZ ([phone])[facility] ([facility])[address] [place] [address] WBC (Bld) [#/Vol] 8.2 10*3/uL Normal 3.6-10.7 [facility] Comment on above: Performed By: #### L [id number] ####Casting Trucker: HAILEY HERNANDEZ ([id number])[facility] ([facility])[address] [place] [address] CBC panel Auto (Bld)on 05-22 Erythrocyte distribution width (RBC) [Ratio] 14 % 11.5 - 15.0 % [facility] Hematocrit (Bld) [Volume fraction] 43.3 % 40.0 - 52.0 % [facility] Hemoglobin (Bld) [Mass/Vol] 14.2 g/dL 13.0 - 18.0 g/dL [facility] Interpretation and review of laboratory results Normal [facility] MCH (RBC) [Entitic mass] 30.7 pg 26.0 - 34.0 pg [facility] MCHC (RBC) [Mass/Vol] 32.8 % 30.5 - 36.0 % [facility] MCV (RBC) [Entitic vol] 93.5 fL 77.0 - 99.0 fL [facility] Platelet mean volume (Bld) [Entitic vol] 10.4 fL 9.0 - 12.7 fL [facility] Platelets (Bld) [#/Vol] 184 10*3/uL 140 - 440 10*3/uL [facility] RBC (Bld) [#/Vol] 4.63 10*6/uL 4.40 - 5.9 0 10*6/uL [facility] WBC (Bld) [#/Vol] 8.2 10*3/uL 3.6 - 10.7 10*3/uL [facility] COMPREHENSIVE METABOLIC PANE [place] 05-22-2025 Albumin [Mass/Vol] 3.5 g/dL Normal 3.4-4.8 [facility] Comment on above: Performed By: #### L AB17, LAB18 ####Casting Trucker: HAILEY HERNANDEZ ([id number])[facility] [place] (SBHLAB)[address] ALP [Catalytic activity/Vol] 59 U/L Normal 40-150 [facility] Comment on above: Performed By: #### L AB17, LAB18 ####Casting Trucker: HAILEY HERNANDEZ ([id number])[facility]ITALA [facility] (SBHLAB)[address] ALT [Catalytic activity/Vol] 19 U/L Normal <40 [facility] Comment on above: Performed By: #### L AB17, LAB18 ####Casting Trucker: HAILEY HERNANDEZ ([id number])[facility] (SBHLAB)[address] Anion gap [Moles/Vol] 8 mmol/L Normal 3-13 [facility] Comment on above: Performed By: #### L AB17, LAB18 ####Casting Trucker: HAILEY HERNANDEZ ([id number])[facility] [place] (SBHLAB)[address] [place] [address] [place] AST [Catalytic activity/Vol] 23 U/L Normal <34 [facility] Comment on above: Performed By: #### L AB17, LAB18 ####Casting Trucker: HAILEY HERNANDEZ ([id number])[facility] [place] (SBHLAB)[address] Bilirubin [Mass/Vol] 0.4 mg/dL Normal <1.2 [facility] Comment on above: Performed By: #### L AB17, LAB18 ####Casting Trucker: HAILEY HERNANDEZ ([id number])[facility] [place] (SBHLAB)[address] Calcium [Mass/Vol] 8.7 mg/dL Low 8.8-10.0 [facility] Comment on above: Performed By: #### L AB17, LAB18 ####Casting Trucker: HAILEY HERNANDEZ ([phone])[facility] [place] (SBHLAB)[address] Chloride [Moles/Vol] 112 mmol/L High 98-107 [facility] Comment on above: Performed By: #### L AB17, LAB18 ####Casting Trucker: HAILEY HERNANDEZ ([id number])[facility] [place] (SBHLAB)[address] CO2 [Moles/Vol] 22 mmol/L Low 23-31 [facility] Comment on above: Performed By: #### L AB17, LAB18 ####Casting Trucker: HAILEY HERNANDEZ ([id number])[facility] [place] (SBHLAB)[address] Creatinine [Mass/Vol] 0.83 mg/dL Normal 0.72-1.25 [facility] Comment on above: Performed By: #### L AB17, LAB18 ####Casting Trucker: HAILEY HERNANDEZ ([phone])[facility] [place] (SBHLAB)[address] GLOMERULAR FILTRATION RATE ML/MIN/1.73 SQ M.PREDICTED >90.0 Normal >60.0 [facility] Comment on above: Result Comment: Calc ulation based on the Chronic Kidney Disease Epidemiology Collaboration (CKD-EPI) equation refit without adjustment for race Performed By: #### L AB17, LAB18 ####Casting Trucker: HAILEY HERNANDEZ ([phone])[facility] [place] (SBHLAB)[address] Glucose [Mass/Vol] 101 mg/dL Normal 82-115 [facility] Comment on above: Performed By: #### L AB17, LAB18 ####Casting Trucker: HAILEY HERNANDEZ ([phone])[facility]ITAL[facility]ett[facility] [place] (SBHLAB)[address] Potassium [Moles/Vol] 4.5 mmol/L Normal 3.5-5.1 [facility] Comment on above: Result Comment: [facility] potassium values may be up to 0.5 mmol/L lower than serum values. Performed By: #### L AB17, LAB18 ####Casting Trucker: HAILEY HERNANDEZ ([phone])[facility]ITALBettina MARTINEZTSEHOOTSOO[facility] (SBHLAB)[address] Protein [Mass/Vol] 6.4 g/dL Normal 6.4-8.3 [facility] Comment on above: Performed By: #### L AB17, LAB18 ####Casting Trucker: HAILEY HERNANDEZ ([phone])[facility]ITALBettina MARTINEZNEW SUNRISE [facility]ERN (SBHLAB)[address] Sodium [Moles/Vol] 142 mmol/L Normal 136-145 [facility] Comment on above: Performed By: #### L AB17, LAB18 ####Casting Trucker: HAILEY HERNANDEZ ([phone])[facility] (SBHLAB)[address] Urea nitrogen [Mass/Vol] 19 mg/dL Normal 9-23 [facility] Comment on above: Performed By: #### L AB17, LAB18 ####Casting Trucker: HAILEY HERNANDEZ ([phone])[facility] (SBHLAB)[address] Comprehensive metabolic 1998 panelon 05-22-2025 Albumin [Mass/Vol] 3.5 g/dL 3.4 - 4.8 g/dL [facility] ALP [Catalytic activity/Vol] 59 U/L 40 - 150 U/L [facility] ALT [Catalytic activity/Vol] 19 U/L [facility] - 40 U/L [facility] Anion gap [Moles/Vol] 8 mmol/L 3 - 13 mmol/L [facility] AST [Catalytic activity/Vol] 23 U/L [facility] - 34 U/L [facility] Bilirubin [Mass/Vol] 0.4 mg/dL NINF - 1.2 mg/dL [facility] Calcium [Mass/Vol] 8.7 mg/dL Low 8.8 - 10. 0 mg/dL [facility] Chloride [Moles/Vol] 112 mmol/L High 98 - 10 7 mmol/L [facility] CO2 [Moles/Vol] 22 mmol/L Low 23 - 31 mmol/L [facility] Creatinine [Mass/Vol] 0.83 mg/dL 0.72 - 1.25 mg/dL [facility] GFR/1.73 sq M.predicted (S/P/Bld) [Vol rate/Area] - PINF [facility] Comment on above: Calculation based on the Chronic Kidney Disease Epidemiology Collaboration (CKD-EPI) equation refit without adjustment for race Glucose [Mass/Vol] 101 mg/dL 82 - 115 mg/dL [facility] Potassium [Moles/Vol] 4.5 mmol/L 3.5 - 5.1 mmol/L [facility] Comment on above: Plasma potassium frank ues may be up to 0.5 mmol/L lower than serum values. Protein [Mass/Vol] 6.4 g/dL 6.4 - 8.3 g/dL [facility] Sodium [Moles/Vol] 142 mmol/L 136 - 145 mmol/L [facility] Urea nitrogen [Mass/Vol] 19 mg/dL 9 - 23 mg/dL [facility] HEMOGLOBIN A1Con 05-22-2025 Glucose [Mass/Vol] 108 mg/dL Normal [facility] Comment on above: Result Comment: [facility] [place] COMMENTS: HbA1c values of 5.7-6.4 percent indicate an increased risk for developing diabetes mellitus. HbA1c values greater than or equal to 6.5 percent are diagnostic of diabetes mellitus. For diagnosis of diabetes in individuals without unequivocal hyperglycemia, results should be confirmed by repeat testing. Performed By: #### L AB90 ####Casting Trucker: HAILEY HERNANDEZ ([phone])[facility] ([facility] [place] [address] HEMOGLOBIN A1C 5.4 %HbA1C Normal <5.7 [facility] Comment on above: Result Comment: Norm al less than 5.7% Prediabetes 5.7% to 6.4% Diabetes 6.5% or higher --HgbA1C levels may not be accurate in patients who have renal disease, received recent blood transfusions, are anemic, or who have dyshemoglobinemia. Performed By: #### L AB90 ####Casting Trucker: HAILEY HERNANDEZ ([phone])[facility]ITALBettina [facility]ENTERRaoul (SBHLAB)[address] LIPID PANELon 05-22-2025 Cholesterol [Mass/Vol] 139 mg/dL Normal <200 [facility] Comment on above: Performed By: #### L AB17, LAB18 ####Casting Trucker: HAILEY HERNANDEZ ([phone])[facility] (SBHLAB)[address] Cholesterol in HDL [Mass/Vol] 44 mg/dL Low >=60 [facility] Comment on above: Performed By: #### L AB17, LAB18 ####Casting Trucker: HAILEY HERNANDEZ ([phone])[facility] (SBHLAB)[address] Cholesterol.total/Chol esterol in HDL [Mass ratio] 3 {ratio} Normal [facility] Comment on above: Result Comment: Ref Range: < 3 Low Risk for CHD 3-6 Mod Risk for CHD > 6 High Risk for CHD Performed By: #### L AB17, LAB18 ####Casting Trucker: HAILEY HERNANDEZ ([phone])[facility] (SBHLAB)[address] LOW DENSITY LIPOPROTEIN 77 mg/dL Normal 0-<100 [facility] Comment on above: Performed By: #### L AB17, LAB18 ####Casting Trucker: HAILEY HERNANDEZ ([phone])[facility] (SBHLAB)[address] NON-HDL CHOLESTEROL, CALCULATED 95 Normal <130 [facility] Comment on above: Performed By: #### L AB17, LAB18 ####Casting Trucker: HAILEY LOCKCER ([phone])[facility] (SBHLAB)[address] Triglyceride [Mass/Vol] 92 mg/dL Normal <150 [facility] Comment on above: Performed By: #### L AB17, LAB18 ####Casting Trucker: HAILEY BREWERELVIRA ([phone])[facility] (SBHLAB)[address] VERY LOW DENSITY LIPOPROTEIN, CALCULATED 18 mg/dL Normal <=30 [facility] Comment on above: Performed By: #### L AB17, LAB18 ####Casting Trucker: HAILEY BREWERELVIRA ([phone])[facility] (SBHLAB)[address] Laboratory - Chemistry and C hemistry - challengeon 05-22-2025 Average glucose Estimated from glycated hemoglobin (Bld) [Mass/Vol] 108 mg/dL [facility] - Hematology and Cell countson 05-22-2025 HbA1c (Bld) [Mass fraction] 5.4 % [facility] Comment on above: Normal less than 5.7 % Prediabetes 5.7% to 6.4% Diabetes 6.5% or higher --HgbA1C levels may not be accurate in patients who have renal disease, received recent blood transfusions, are anemic, or who have dyshemoglobinemia. Lipid 1996 panelon 5 Cholesterol [Mass/Vol] 139 mg/dL NINF - 200 mg/dL [facility] Cholesterol in HDL [Mass/Vol] 44 mg/dL Low 60 - PINF mg/dL [facility] Cholesterol in LDL [Mass/Vol] 77 mg/dL 0 - <100 [facility] Cholesterol.total/Chol esterol in HDL [Mass ratio] 3 {ratio} [facility] Comment on above: Ref Range: < 3 Low Risk for CHD 3-6 Mod Risk for CHD > 6 High Risk for CHD NON-HDL CHOLESTEROL, CALCULATED 95 NINF - 130 [facility] Triglyceride [Mass/Vol] 92 mg/dL NINF - 150 mg/dL [facility] VERY LOW DENSITY LIPOPROTEIN, CALCULATED 18 mg/dL [facility] - 30 mg/dL [facility] No Panel Informationon 05-22 HbA1c values of 5.7-6.4 percent indicate an increased risk for developing diabetes mellitus. HbA1c values greater than or equal to 6.5 percent are diagnostic of diabetes mellitus. For diagnosis of diabetes in individuals without unequivocal hyperglycemia, results should be confirmed by repeat testing. [facility] Interpretation and review of laboratory results Abnormal [facility] Nursing Noteon 05-22-2025 Nursing Note Pt given and educate d on discharge instructions. Pt and family have no questions at this time. IV removed. Pt discharged to private vehicle. Normal [facility] Progress Noteon 05-22-2025 Progress Note OCCUPATIONAL THERAPY [facility] Name/MRN: Joseph Brown ([id number]) Date: 05/22/2025 Therapy eval and treat orders received for if Elena < 100 and below baseline. Elena noted to be 100 this admission. Will discontinue orders at this time. Should pt demo a change in status, please reorder OT services. Mikie Chavira, OT Normal [facility] Progress Note PHYSICAL THERAPY [facility] Name/MRN: Joseph Brown ([id number]) Date: 05/22/2025 Chart review completed, pt currently has a Elena score of 100 with PT orders to eval and treat with Elena score <100. Will complete current orders. Please re-order if status changes. Lissette Cruz, PT Normal [facility] CBC W Auto Differential pane l (Bld)on 05-21-2025 Basophils (Bld) [#/Vol] 0 10*3/uL 0.0 - 0.2 10*3/uL [facility] Basophils/100 WBC (Bld) 0.5 % 0.0 - 2.0 % [facility] Eosinophils (Bld) [#/Vol] 0.5 10*3/uL 0.0 - 0.5 10*3/uL [facility] Eosinophils/100 WBC (Bld) 5.2 % 0.0 - 6.0 % [facility] Erythrocyte distribution width (RBC) [Ratio] 13.8 % 11.5 - 15.0 % [facility] Hematocrit (Bld) [Volume fraction] 41.1 % 40.0 - 52.0 % [facility] Hemoglobin (Bld) [Mass/Vol] 13.7 g/dL 13.0 - 18.0 g/dL [facility] Immature granulocytes (Bld) [#/Vol] 0 10*3/uL NINF - 0.1 10*3/uL [facility] Immature granulocytes/100 WBC (Bld) 0.5 % 0.0 - 2.0 % [facility] Interpretation and review of laboratory results Normal [facility] Lymphocytes (Bld) [#/Vol] 1.8 10*3/uL 1.0 - 4.3 10*3/uL [facility] Lymphocytes/100 WBC (Bld) 20.8 % 15.0 - 45.0 % [facility] MCH (RBC) [Entitic mass] 30.9 pg 26.0 - 34.0 pg [facility] MCHC (RBC) [Mass/Vol] 33.3 % 30.5 - 36.0 % [facility] MCV (RBC) [Entitic vol] 92.8 fL 77.0 - 99.0 fL [facility] Monocytes (Bld) [#/Vol] 0.8 10*3/uL 0.0 - 0.9 10*3/uL [facility] Monocytes/100 WBC (Bld) 8.7 % 5.0 - 13.0 % [facility] Neutrophils (Bld) [#/Vol] 5.6 10*3/uL 1.8 - 7.5 10*3/uL [facility] Neutrophils/100 WBC (Bld) 64.3 % 38.0 - 82.0 % [facility] Nucleated RBC/100 WBC (Bld) [Ratio] 0 % [facility] Platelet mean volume (Bld) [Entitic vol] 10.6 fL 9.0 - 12.7 fL [facility] Platelets (Bld) [#/Vol] 179 10*3/uL 140 - 440 10*3/uL [facility] RBC (Bld) [#/Vol] 4.43 10*6/uL 4.40 - 5.9 0 10*6/uL [facility] WBC (Bld) [#/Vol] 8.7 10*3/uL 3.6 - 10.7 10*3/uL [facility] CBC WITH AUTO DIFFERENTIALon 05-21-2025 Basophils (Bld) [#/Vol] 0.0 10*3/uL Normal 0.0-0.2 [facility] Comment on above: Performed By: #### L [id number] ####Casting Trucker: HAILEY HERNANDEZ ([phone])[facility] [place] (SBHLAB)[address] Basophils/100 WBC (Bld) 0.5 % Normal 0.0-2.0 [facility] Comment on above: Performed By: #### L [id number] ####Casting Trucker: HAILEY HERNANDEZ ([phone])[facility] [place] (SBHLAB)[address] Eosinophils (Bld) [#/Vol] 0.5 10*3/uL Normal 0.0-0.5 [facility] Comment on above: Performed By: #### L [id number] ####Casting Trucker: HAILEY HERNANDEZ ([id number])[facility] [place] (SBHLAB)[address] Eosinophils/100 WBC (Bld) 5.2 % Normal 0.0-6.0 [facility] Comment on above: Performed By: #### L [id number] ####Casting Trucker: HAILEY HERNANDEZ ([phone])[facility] [place] (SBHLAB)[address] Erythrocyte distribution width (RBC) [Ratio] 13.8 % Normal 11.5-15.0 [facility] Comment on above: Performed By: #### L [id number] ####Casting Trucker: HAILEY HERNANDEZ ([id number])[facility] [place] (SBHLAB)[address] Hematocrit (Bld) [Volume fraction] 41.1 % Normal 40.0-52.0 [facility] Comment on above: Performed By: #### L [id number] ####Casting Trucker: HAILEY HERNANDEZ ([phone])[facility] [place] (SBHLAB)[address] Hemoglobin (Bld) [Mass/Vol] 13.7 g/dL Normal 13.0-18.0 [facility] Comment on above: Performed By: #### L [id number] ####Casting Trucker: HAILEY HERNANDEZ ([phone])[facility] (SBHLAB)[address] IMMATURE GRANS % 0.5 % Normal 0.0-2.0 [facility] Comment on above: Performed By: #### L [id number] ####Casting Trucker: HAILEY HERNANDEZ ([phone])[facility] (SBAB)[address] IMMATURE GRANS ABSOLUTE 0.0 10*3/uL Normal <0.1 [facility] Comment on above: Performed By: #### L [id number] ####Casting Trucker: HAILEY HERNANDEZ ([phone])[facility] (SBHLAB)[address] [place] [address] Lymphocytes (Bld) [#/Vol] 1.8 10*3/uL Normal 1.0-4.3 [facility] Comment on above: Performed By: #### L [id number] ####Casting Trucker: HAILEY HERNANDEZ ([phone])[facility] (SBHLAB)[address] [place] [address] Lymphocytes/100 WBC (Bld) 20.8 % Normal 15.0-45.0 [facility] Comment on above: Performed By: #### L [id number] ####Casting Trucker: HAILEY HERNANDEZ ([phone])[facility] (SBHLAB)[address] MCH (RBC) [Entitic mass] 30.9 pg Normal 26.0-34.0 [facility] Comment on above: Performed By: #### L [id number] ####Casting Trucker: HAILEY HERNANDEZ ([phone])[facility] [place] (SBHLAB)[address] MCHC 33.3 % Normal 30.5-36.0 [facility] Comment on above: Performed By: #### L [id number] ####Casting Trucker: HAILEY GAITANLUCERO ([phone])[facility] [place] (SBHLAB)[address] MCV (RBC) [Entitic vol] 92.8 fL Normal 77.0-99.0 [facility] Comment on above: Performed By: #### L [id number] ####Casting Trucker: HAILEY HERNANDEZ ([phone])[facility] [place] (SBHLAB)[address] Monocytes (Bld) [#/Vol] 0.8 10*3/uL Normal 0.0-0.9 [facility] Comment on above: Performed By: #### L [id number] ####Casting Trucker: HAILEY HERNANDEZ ([phone])[facility] [place] (SBHLAB)[address] Monocytes/100 WBC (Bld) 8.7 % Normal 5.0-13.0 [facility] Comment on above: Performed By: #### L [id number] ####Casting Trucker: HAILEY HERNANDEZ ([phone])[facility] [place] (SBHLAB)[address] NEUTROPHILS ABSOLUTE 5.6 10*3/uL Normal 1.8-7.5 [facility] Comment on above: Performed By: #### L [id number] ####Casting Trucker: HAILEY HERNANDEZ ([phone])[facility] [place] (SBHLAB)[address] Neutrophils/100 WBC (Bld) 64.3 % Normal 38.0-82.0 [facility] Comment on above: Performed By: #### L [id number] ####Casting Trucker: HAILEY HERNANDEZ ([phone])[facility] [place] (SBHLAB)[address] NRBC 0.0 /100 WBCs Normal 0.0-2.0 [facility] Comment on above: Performed By: #### L [id number] ####Casting Trucker: HAILEY HERNANDEZ ([phone])[facility] [place] (SBHLAB)[address] Platelet mean volume (Bld) [Entitic vol] 10.6 fL Normal 9.0-12.7 [facility] Comment on above: Performed By: #### L [id number] ####Casting Trucker: HAILEY HERNANDEZ ([phone])[facility] (SBHLAB)[address] Platelets (Bld) [#/Vol] 179 10*3/uL Normal 140-440 [facility] Comment on above: Performed By: #### L [id number] ####Casting Trucker: HAILEY HERNANDEZ ([phone])[facility] (SBHLAB)[address] RBC (Bld) [#/Vol] 4.43 10*6/uL Normal 4.40-5.90 [facility] Comment on above: Performed By: #### L [id number] ####Casting Trucker: HAILEY HERNANDEZ ([phone])[facility] (SBHLAB)[address] WBC (Bld) [#/Vol] 8.7 10*3/uL Normal 3.6-10.7 [facility] Comment on above: Performed By: #### L [id number] ####Casting Trucker: HAILEY HERNANDEZ ([phone])[facility] (SBHLAB)[address] COMPREHENSIVE METABOLIC PANE [place] 05-21-2025 Albumin [Mass/Vol] 3.5 g/dL Normal 3.4-4.8 [facility] Comment on above: Performed By: #### L [id number], LAB17, [id number] ####Casting Trucker: HAILEY [id number])[facility]ITAL[facility] [place] (SBHLAB)[address] ALP [Catalytic activity/Vol] 66 U/L Normal 40-150 [facility] Comment on above: Performed By: #### L [id number], LAB17, [id number] ####Casting Trucker: HAILEY HERNANDEZ ([phone])[facility] (SBHLAB)[address] [place] [address] [place] ALT [Catalytic activity/Vol] 18 U/L Normal <40 [facility] Comment on above: Performed By: #### L [id number], LAB17, [id number] ####Casting Trucker: HAILEY HERNANDEZ ([phone])[facility] (SBHLAB)[address] Anion gap [Moles/Vol] 8 mmol/L Normal 3-13 [facility] Comment on above: Performed By: #### Zeke [id number], LAB17, [id number] ####Casting Trucker: HAILEY HERNANDEZ ([phone])[facility] (SBHLAB)[address] AST [Catalytic activity/Vol] 25 U/L Normal <34 [facility] Comment on above: Performed By: #### L [id number], LAB17, [id number] ####Casting Trucker: HAILEY HERNANDEZ ([phone])[facility] (SBHLAB)[address] Bilirubin [Mass/Vol] 0.4 mg/dL Normal <1.2 [facility] Comment on above: Performed By: #### L [id number], LAB17, [id number] ####Casting Trucker: HAILEY HERNANDEZ ([phone])[facility] (SBHLAB)[address] Calcium [Mass/Vol] 8.7 mg/dL Low 8.8-10.0 [facility] Comment on above: Performed By: #### L [id number], LAB17, [id number] ####Casting Trucker: HAILEY HERNANDEZ ([phone])[facility] (SBHLAB)[address] [place] [address] [place] Chloride [Moles/Vol] 111 mmol/L High 98-107 [facility] Comment on above: Performed By: #### Zeke [id number], LAB17, [id number] ####Casting Trucker: HAILEY HERNANDEZ ([phone])[facility] [place] (SBHLAB)[address] CO2 [Moles/Vol] 23 mmol/L Normal 23-31 [facility] Comment on above: Performed By: #### Zeke [id number], LAB17, [id number] ####Casting Trucker: HAILEY HERNANDEZ ([phone])[facility]ITAL[facility] [place] (SBHLAB)[address] Creatinine [Mass/Vol] 0.89 mg/dL Normal 0.72-1.25 [facility] Comment on above: Performed By: #### Zeke [id number], LAB17, [id number] ####Casting Trucker: HAILEY HERNANDEZ ([phone])[facility] [place] (SBHLAB)[address] GLOMERULAR FILTRATION RATE ML/MIN/1.73 SQ M.PREDICTED >90.0 Normal >60.0 [facility] Comment on above: Result Comment: Calc ulation based on the Chronic Kidney Disease Epidemiology Collaboration (CKD-EPI) equation refit without adjustment for race Performed By: #### L [id number], LAB17, [id number] ####Casting Trucker: HAILEY HERNANDEZ ([phone])[facility] [place] (SBHLAB)[address] [place] [address] [place] Glucose [Mass/Vol] 163 mg/dL High 82-115 [facility] Comment on above: Performed By: #### L [id number], LAB17, [id number] ####Casting Trucker: HAILEY HERNANDEZ ([phone])[facility] (SBHLAB)[address] Potassium [Moles/Vol] 4.1 mmol/L Normal 3.5-5.1 [facility] Comment on above: Result Comment: [facility] potassium values may be up to 0.5 mmol/L lower than serum values. Performed By: #### L [id number], LAB17, [id number] ####Casting Trucker: HAILEY HERNANDEZ ([phone])[facility] (SBHLAB)[address] Protein [Mass/Vol] 6.3 g/dL Low 6.4-8.3 [facility] Comment on above: Performed By: #### L [id number], LAB17, [id number] ####Casting Trucker: HAILEY HERNANDEZ ([phone])[facility] ([facility] [place] [address] Sodium [Moles/Vol] 142 mmol/L Normal 136-145 [facility] Comment on above: Performed By: #### L [id number], LAB17, [id number] ####Casting Trucker: HAILEY HERNANDEZ ([phone])[facility] (HLAB)[address] [place] [address] Urea nitrogen [Mass/Vol] 17 mg/dL Normal 9-23 [facility] Comment on above: Performed By: #### L [id number], LAB17, [id number] ####Casting Trucker: HAILEY HERNANDEZ ([phone])[facility] ([facility])[address] [place] [address] CT HEAD WO IV CONTRASTon CT HEAD WO IV CONTRAST [facility] 1955 [id number] Exam Date/Time: 05/21/2025 00:21 Procedure: CT HEAD WO IV CONTRAST Ordering Provider: SANDERS FELIX Reason For Exam: dizziness CT HEAD WITHOUT CONTRAST CLINICAL HISTORY: dizziness COMPARISON: 12/20/2024 TECHNIQUE: Helical CT of the brain without contrast. Dose reduction was employed with automated exposure control. FINDINGS: Acute Findings: No hemorrhage, mass, or infarct. Chronic Changes: None identified. Ventricles and sulci: Within normal limits for age. Other: Extensive mucosal thickening throughout the paranasal sinuses bilaterally. Several of the sinuses have hyperdense contents. There also is polypoid mucosal thickening in the right nasal cavity most likely secondary to nasal polyps. Similar findings were present on the patient's prior study. IMPRESSION: 1. No acute intracranial abnormalities. 2. Chronic sinonasal polyposis bilaterally. Report Dictated on Workstation: [id number] Electronically Signed By: Avinash Miguel MD Electronically Signed Date/Time: 05/21/2025 1:00 AM EDT Table formatting from the original note was not included. X 2 weeks. Also endorses nausea and dizziness. Took tylenol at home with relief. Normal [facility] CT Head WO contraston 2024 1. No acute intracranial abnormalities. 2. Chronic sinonasal polyposis bilaterally. Report Dictated on Workstation: [id number] Electronically Signed By: Avinash Miguel MD Electronically Signed Date/Time: 05/21/2025 1:00 AM EDT [facility] [employer] Patient Name: JOSEPH BROWN : 1955 Exam Date/Time: 05/21/2025 00:21 Procedure: CT HEAD WO IV CONTRAST Ordering Provider: SANDERS FELIX Reason For Exam: dizziness CT HEAD WITHOUT CONTRAST CLINICAL HISTORY: dizziness COMPARISON: 12/20/2024 TECHNIQUE: Helical CT of the brain without contrast. Dose reduction was employed with automated exposure control. FINDINGS: Acute Findings: No hemorrhage, mass, or infarct. Chronic Changes: None identified. Ventricles and sulci: Within normal limits for age. Other: Extensive mucosal thickening throughout the paranasal sinuses bilaterally. Several of the sinuses have hyperdense contents. There also is polypoid mucosal thickening in the right nasal cavity most likely secondary to nasal polyps. Similar findings were present on the patient's prior study. [facility] [employer] Avinash Miguel M D - 05/21/2025 Patient Name: JOSEPH BROWN : 1955 Exam Date/Time: 05/21/2025 00:21 Procedure: CT HEAD WO IV CONTRAST Ordering Provider: SANDERS FELIX Reason For Exam: dizziness CT HEAD WITHOUT CONTRAST CLINICAL HISTORY: dizziness COMPARISON: 12/20/2024 TECHNIQUE: Helical CT of the brain without contrast. Dose reduction was employed with automated exposure control. FINDINGS: Acute Findings: No hemorrhage, mass, or infarct. Chronic Changes: None identified. Ventricles and sulci: Within normal limits for age. Other: Extensive mucosal thickening throughout the paranasal sinuses bilaterally. Several of the sinuses have hyperdense contents. There also is polypoid mucosal thickening in the right nasal cavity most likely secondary to nasal polyps. Similar findings were present on the patient's prior study. IMPRESSION: 1. No acute intracranial abnormalities. 2. Chronic sinonasal polyposis bilaterally. Report Dictated on Electronically Signed By: Avinash Miguel MD Electronically Signed Date/Time: 05/21/2025 1:00 AM EDT [facility] Radiology Study observation (narrative) [facility] CT Head WO contrastOrdered B y: Avinash Miguel on 05-21-2025 [facility] Work Phone: Comprehensive metabolic 1998 panelon 05-21-2025 Albumin [Mass/Vol] 3.5 g/dL 3.4 - 4.8 g/dL [facility] ALP [Catalytic activity/Vol] 66 U/L 40 - 150 U/L [facility] ALT [Catalytic activity/Vol] 18 U/L [facility] - 40 U/L [facility] Anion gap [Moles/Vol] 8 mmol/L 3 - 13 mmol/L [facility] AST [Catalytic activity/Vol] 25 U/L [facility] - 34 U/L [facility] Bilirubin [Mass/Vol] 0.4 mg/dL NINF - 1.2 mg/dL [facility] Calcium [Mass/Vol] 8.7 mg/dL Low 8.8 - 10. 0 mg/dL [facility] Chloride [Moles/Vol] 111 mmol/L High 98 - 10 7 mmol/L [facility] CO2 [Moles/Vol] 23 mmol/L 23 - 31 mmol/L [facility] Creatinine [Mass/Vol] 0.89 mg/dL 0.72 - 1.25 mg/dL [facility] GFR/1.73 sq M.predicted (S/P/Bld) [Vol rate/Area] - PINF [facility] Comment on above: Calculation based on the Chronic Kidney Disease Epidemiology Collaboration (CKD-EPI) equation refit without adjustment for race Glucose [Mass/Vol] 163 mg/dL High 82 - 115 mg/dL [facility] Interpretation and review of laboratory results Abnormal [facility] Potassium [Moles/Vol] 4.1 mmol/L 3.5 - 5.1 mmol/L [facility] Comment on above: Plasma potassium frank ues may be up to 0.5 mmol/L lower than serum values. Protein [Mass/Vol] 6.3 g/dL Low 6.4 - 8.3 g/dL [facility] Sodium [Moles/Vol] 142 mmol/L 136 - 145 mmol/L [facility] Urea nitrogen [Mass/Vol] 17 mg/dL 9 - 23 mg/dL [facility] Consulton 05-21-2025 Consult - Attestation signed by Zoey James MD at 05/22/2025 2:50 PM Neuro Critical Care / stroke Attending Patient date of encounter , Delay attestation secondary to [employer] update ( Separate note for under my BETSEY only ) Patient seen and evaluated with my BETSEY, He reported complaints of dizziness, described as vertigo / light headed, this resembling his complaints few months ago which at the time where thought to be secondary to severe sinusitis , He had the sinusitis treated and symptoms resolved This time the event appeared to have occurred relatively sudently , no other focal or systemic complaints to detail questioning other than fells he is developed some sinusitis again Vitals slight increased BP on and off His exam was significant - BMI 31 % - NO schewed , no nystagmus, question if HIT direction to the right , Other sanches neuro exam was normal for motor, sensory ,coordination and gate Brewer, lung and carotid auscultation was normal . Standing and gait normal - Labs, BMP normal , slight hyperchloremic HDL slight low CBC normal Aic 5.4 MRIs have been obtained since then , we requested them as the examination could not 100 % r/o presence of structural problem of =VB insufficiency Patient 's main risk factor for stroke was BMI, HTN and suspected RODRIGO , as well as prior history of DVT , This where reviewed and considered normal 1. No intracranial large vessel occlusion or significant stenosis. MRA OF THE NECK WITH AND WITHOUT GADOLINIUM CLINICAL INDICATION: Dizziness, persistent/recurrent, cardiac or vascular cause suspected TECHNIQUE: Routine MRA of the neck with and without IV gadolinium. COMPARISON: CTA head and neck, December,. FINDINGS: The bilateral common, internal and external carotid arteries are patent. Mild plaquing in bilateral proximal ICAs, with 50% or less stenosis. Carotid bifurcations have normal contour without significant plaque formation. No occlusion, focal hemodynamically significant stenosis or apparent aneurysm. Vertebral arteries are patent. Left vertebral artery dominant. Left common carotid artery origin from brachiocephalic artery or bovine arch incidentally noted. IMPRESSION: 1. No significant cervical ICA stenosis (50% or less) by NASCET criteria. We also did a CTA because he had a new neck pain while in exertion preceding this symptoms and we where concern for VB dissections MRAs personal review Brain normal and neck with tortuous vessels but not stenotic or dissected Impression - NO stroke or TIA - Peripheral vestibulopathy , - Stroke risks still significant - Obesity - Suspect RODRIGO< Mallampati IV DLP on atorvastatin at home to be continued - Mild dehydration Suggest optimization of hydration Diet and weight loss , Daily 30 min execise If persistent RODRIGO , consider sleep study and treatment , although its likely to improve if he losses weight - I personally interviewed and examined this patient , reviewed , corrected, agreed and attested the note for this patient. I reviewed the chart including MAR, labs, neuroimaging, other imaging studies and discussed my diagnostic impression and patient's plan of care with my BETSEY/resident/ Fellow , student and the consulting team and patient's family members/surrogate decision makers (in cases where the patient is incapacitated and unable to participate in their own care). [x] Encounter Face to Face [x] Consult [x] Time spend [x] 80 [x] Patient was seen on 05/21, time of of the note currently attested , second note 05/22 completed by my BETSEY, who followed up the pateint Thank you Laquita Ding DO for the opportunity to be involved in this patient's care. INITIAL CONSULT NOTE. NEUROLOGY Patient Name: Joseph Brown Patient : 1955 Acct: [id number] Date of Admission: 05/20/2025 Room/Bed: B4454/B4454 A PCP: Laquita Dnig DO History of Present Ilness: 69 y.o. male with the chief Complaint of:dizziness Complain :room moves when lying down on bed or with position changes x 2 days Evolution: if he sits back up and holds still, the dizziness with resolve in about 5 mins. Tried a meclizine without resolution. Associated symptoms: dull headache back of head; mild nausea Denies hearing loss, tinnitus, vomiting, diplopia, dysarthria, dysphasia, gait instability, unilateral N/T or weakness, chest pain, SOB, or palpitations Denies medication changes, new supplements, recent illness/infection Had same symptoms 01/07; was told he has full impacted sinuses; treated with meclizine and nasal spray; is supposed to have surgery for deviated septum. Otherwise, has never experienced this before; no vestibular t (more content not included)... Normal [facility] ECG 12-LEADon 05-21-2025 ECG 12-LEAD IMPRESSION: EKG shows normal sinus rhythm, 64 bpm, no STEMI, QTc normal. Interpretation was performed by me. Overall similar when compared to prior. Electronically Signed On 05-21-2025 01:10:32 EDT by Jacoby Sanders Normal [facility] HIGH SENSITIVITY TROPONIN, S ERIAL BASELINEon 05-21-2025 TROPONIN HS SERIAL BASELINE 5 ng/L Normal <=35 [facility] Comment on above: Result Comment: In i ndividuals presenting with symptoms > 2h, a baseline troponin <= 5 ng/L suggests acute cardiac injury is unlikely and further serial testing is generally not indicated. Performed By: #### L [id number], [id number], [id number] ####Casting Trucker: HAILEY HERNANDEZ ([phone])[facility] ([facility])[address] [place] [address] HIGH SENSITIVITY TROPONIN, S ERIAL, SECOND TESTon 05-21-2025 2H TROPONIN HS (SERIAL 2ND TROPONIN) 4 ng/L Normal <=35 [facility] Comment on above: Result Comment: Risi ng or falling troponin delta below 2 ng/L as compared to baseline value suggests that acute cardiac injury is unlikely. Performed By: #### L [id number] ####Casting Trucker: HAILEY GAITANLUCERO ([phone])[facility] ([facility])[address] [place] [address] MR Brain WO contraston 05-21 Patient Name: JOSEPH BROWN : 1955 Exam Date/Time: 05/21/2025 16:00 Procedure: MR BRAIN WO CONTRAST Ordering Provider: COELHO SHAYNA Reason For Exam: Dizziness, persistent/recurrent, cardiac or vascular cause suspected MRI OF THE BRAIN WITHOUT GADOLINIUM CLINICAL INDICATION: Dizziness, persistent/recurrent, cardiac or vascular cause suspected TECHNIQUE: Routine MRI of the brain without IV gadolinium. COMPARISON: CT brain, earlier on same date. FINDINGS: No apparent mass, mass effect, hemorrhage, midline shift or hydrocephalus. No acute infarct seen on diffusion weighted imaging. No pathologic extra-axial fluid collection. No pineal region or sellar masses. No cerebellar tonsillar herniation. Diffuse mucosal thickening and partial opacification again noted in the bilateral frontal, ethmoid and right maxillary and sphenoid sinuses. [facility] Yasmani Briscoe MD - 05/21/2025 Patient Name: JOSEPH BROWN : 1955 Exam Date/Time: 05/21/2025 16:00 Procedure: MR BRAIN WO CONTRAST Ordering Provider: COELHO SHAYNA Reason For Exam: Dizziness, persistent/recurrent, cardiac or vascular cause suspected MRI OF THE BRAIN WITHOUT GADOLINIUM CLINICAL INDICATION: Dizziness, persistent/recurrent, cardiac or vascular cause suspected TECHNIQUE: Routine MRI of the brain without IV gadolinium. COMPARISON: CT brain, earlier on same date. FINDINGS: No apparent mass, mass effect, hemorrhage, midline shift or hydrocephalus. No acute infarct seen on diffusion weighted imaging. No pathologic extra-axial fluid collection. No pineal region or sellar masses. No cerebellar tonsillar herniation. Diffuse mucosal thickening and partial opacification again noted in the bilateral frontal, ethmoid and right maxillary and sphenoid sinuses. IMPRESSION: 1. No acute intracranial findings. 2. Paranasal sinus disease, including possible sinonasal polyposis. MRA OF THE BRAIN CLINICAL INDICATION: Dizziness, persistent/recurrent, cardiac or vascular cause suspected TECHNIQUE: Routine MRA of the brain without gadolinium. COMPARISON: CTA head and neck, December,. FINDINGS: Flow-related enhancement in the intracranial internal carotid, proximal anterior and middle cerebral arteries. Flow-related enhancement in the basilar and proximal posterior cerebral arteries. Right [employer] derives major contribution from anterior circulation consistent with persistent origin, an anatomic variant. No large vessel cutoff, focal hemodynamically significant stenosis or apparent aneurysm. The intracranial vertebral arteries are patent. IMPRESSION: 1. No intracranial large vessel occlusion or significant stenosis. MRA OF THE NECK WITH AND WITHOUT GADOLINIUM CLINICAL INDICATION: Dizziness, persistent/recurrent, cardiac or vascular cause suspected TECHNIQUE: Routine MRA of the neck with and without IV gadolinium. COMPARISON: CTA head and neck, December,. FINDINGS: The bilateral common, internal and external carotid arteries are patent. Mild plaquing in bilateral proximal ICAs, with 50% or less stenosis. Carotid bifurcations have normal contour without significant plaque formation. No occlusion, focal hemodynamically significant stenosis or apparent aneurysm. Vertebral arteries are patent. Left vertebral artery dominant. Left common carotid artery origin from brachiocephalic artery or bovine arch incidentally noted. IMPRESSION: 1. No significant cervical ICA stenosis (50% or less) by NASCET criteria. Reference: Measurement of carotid stenosis is a ratio based on conventional angiographic data from the NASCET trials with the post stenotic internal carotid artery caliber minus the smallest caliber of the stenotic internal carotid as the numerator and normal post-stenotic internal carotid caliber as denominator. Report Dictated on Electronically Signed By: Yasmani Briscoe MD Electronically Signed Date/Time: 05/21/2025 6:01 PM EDT [facility] MRA Head vessels WO contrast on 05-21-2025 Patient Name: JOSEPH BROWN : 1955 Exam Date/Time: 05/21/2025 16:00 Procedure: MR HEAD ANGIO WO IV CONTRAST Ordering Provider: COELHO SHAYNA Reason For Exam: concern for disection MRI OF THE BRAIN WITHOUT GADOLINIUM CLINICAL INDICATION: Dizziness, persistent/recurrent, cardiac or vascular cause suspected TECHNIQUE: Routine MRI of the brain without IV gadolinium. COMPARISON: CT brain, earlier on same date. FINDINGS: No apparent mass, mass effect, hemorrhage, midline shift or hydrocephalus. No acute infarct seen on diffusion weighted imaging. No pathologic extra-axial fluid collection. No pineal region or sellar masses. No cerebellar tonsillar herniation. Diffuse mucosal thickening and partial opacification again noted in the bilateral frontal, ethmoid and right maxillary and sphenoid sinuses. [facility] Yasmani Briscoe MD - 05/21/2025 Patient Name: JOSEPH BROWN : 1955 Exam Date/Time: 05/21/2025 16:00 Procedure: MR HEAD ANGIO WO IV CONTRAST Ordering Provider: COELHO SHAYNA Reason For Exam: concern for disection MRI OF THE BRAIN WITHOUT GADOLINIUM CLINICAL INDICATION: Dizziness, persistent/recurrent, cardiac or vascular cause suspected TECHNIQUE: Routine MRI of the brain without IV gadolinium. COMPARISON: CT brain, earlier on same date. FINDINGS: No apparent mass, mass effect, hemorrhage, midline shift or hydrocephalus. No acute infarct seen on diffusion weighted imaging. No pathologic extra-axial fluid collection. No pineal region or sellar masses. No cerebellar tonsillar herniation. Diffuse mucosal thickening and partial opacification again noted in the bilateral frontal, ethmoid and right maxillary and sphenoid sinuses. IMPRESSION: 1. No acute intracranial findings. 2. Paranasal sinus disease, including possible sinonasal polyposis. MRA OF THE BRAIN CLINICAL INDICATION: Dizziness, persistent/recurrent, cardiac or vascular cause suspected TECHNIQUE: Routine MRA of the brain without gadolinium. COMPARISON: CTA head and neck, December,. FINDINGS: Flow-related enhancement in the intracranial internal carotid, proximal anterior and middle cerebral arteries. Flow-related enhancement in the basilar and proximal posterior cerebral arteries. Right [employer] derives major contribution from anterior circulation consistent with persistent origin, an anatomic variant. No large vessel cutoff, focal hemodynamically significant stenosis or apparent aneurysm. The intracranial vertebral arteries are patent. IMPRESSION: 1. No intracranial large vessel occlusion or significant stenosis. MRA OF THE NECK WITH AND WITHOUT GADOLINIUM CLINICAL INDICATION: Dizziness, persistent/recurrent, cardiac or vascular cause suspected TECHNIQUE: Routine MRA of the neck with and without IV gadolinium. COMPARISON: CTA head and neck, December,. FINDINGS: The bilateral common, internal and external carotid arteries are patent. Mild plaquing in bilateral proximal ICAs, with 50% or less stenosis. Carotid bifurcations have normal contour without significant plaque formation. No occlusion, focal hemodynamically significant stenosis or apparent aneurysm. Vertebral arteries are patent. Left vertebral artery dominant. Left common carotid artery origin from brachiocephalic artery or bovine arch incidentally noted. IMPRESSION: 1. No significant cervical ICA stenosis (50% or less) by NASCET criteria. Reference: Measurement of carotid stenosis is a ratio based on conventional angiographic data from the NASCET trials with the post stenotic internal carotid artery caliber minus the smallest caliber of the stenotic internal carotid as the numerator and normal post-stenotic internal carotid caliber as denominator. Report Dictated on Electronically Signed By: Yasmani Briscoe MD Electronically Signed Date/Time: 05/21/2025 6:01 PM EDT [facility] MRA Neck vessels WO and W co ntrast Emma 05-21-2025 [facility] 1955 [id number] Exam Date/Time: 05/21/2025 16:00 Procedure: MR NECK ANGIO W AND WO IV CONTRAST Ordering Provider: COELHO SHAYNA Reason For Exam: Vertebral artery dissection suspected MRI OF THE BRAIN WITHOUT GADOLINIUM CLINICAL INDICATION: Dizziness, persistent/recurrent, cardiac or vascular cause suspected TECHNIQUE: Routine MRI of the brain without IV gadolinium. COMPARISON: CT brain, earlier on same date. FINDINGS: No apparent mass, mass effect, hemorrhage, midline shift or hydrocephalus. No acute infarct seen on diffusion weighted imaging. No pathologic extra-axial fluid collection. No pineal region or sellar masses. No cerebellar tonsillar herniation. Diffuse mucosal thickening and partial opacification again noted in the bilateral frontal, ethmoid and right maxillary and sphenoid sinuses. [facility] Yasmani Briscoe MD - 05/21/2025 Patient Name: JOSEPH BROWN : 1955 Exam Date/Time: 05/21/2025 16:00 Procedure: MR NECK ANGIO W AND WO IV CONTRAST Ordering Provider: COELHO SHAYNA Reason For Exam: Vertebral artery dissection suspected MRI OF THE BRAIN WITHOUT GADOLINIUM CLINICAL INDICATION: Dizziness, persistent/recurrent, cardiac or vascular cause suspected TECHNIQUE: Routine MRI of the brain without IV gadolinium. COMPARISON: CT brain, earlier on same date. FINDINGS: No apparent mass, mass effect, hemorrhage, midline shift or hydrocephalus. No acute infarct seen on diffusion weighted imaging. No pathologic extra-axial fluid collection. No pineal region or sellar masses. No cerebellar tonsillar herniation. Diffuse mucosal thickening and partial opacification again noted in the bilateral frontal, ethmoid and right maxillary and sphenoid sinuses. IMPRESSION: 1. No acute intracranial findings. 2. Paranasal sinus disease, including possible sinonasal polyposis. MRA OF THE BRAIN CLINICAL INDICATION: Dizziness, persistent/recurrent, cardiac or vascular cause suspected TECHNIQUE: Routine MRA of the brain without gadolinium. COMPARISON: CTA head and neck, December,. FINDINGS: Flow-related enhancement in the intracranial internal carotid, proximal anterior and middle cerebral arteries. Flow-related enhancement in the basilar and proximal posterior cerebral arteries. Right [employer] derives major contribution from anterior circulation consistent with persistent origin, an anatomic variant. No large vessel cutoff, focal hemodynamically significant stenosis or apparent aneurysm. The intracranial vertebral arteries are patent. IMPRESSION: 1. No intracranial large vessel occlusion or significant stenosis. MRA OF THE NECK WITH AND WITHOUT GADOLINIUM CLINICAL INDICATION: Dizziness, persistent/recurrent, cardiac or vascular cause suspected TECHNIQUE: Routine MRA of the neck with and without IV gadolinium. COMPARISON: CTA head and neck, December,. FINDINGS: The bilateral common, internal and external carotid arteries are patent. Mild plaquing in bilateral proximal ICAs, with 50% or less stenosis. Carotid bifurcations have normal contour without significant plaque formation. No occlusion, focal hemodynamically significant stenosis or apparent aneurysm. Vertebral arteries are patent. Left vertebral artery dominant. Left common carotid artery origin from brachiocephalic artery or bovine arch incidentally noted. IMPRESSION: 1. No significant cervical ICA stenosis (50% or less) by NASCET criteria. Reference: Measurement of carotid stenosis is a ratio based on conventional angiographic data from the NASCET trials with the post stenotic internal carotid artery caliber minus the smallest caliber of the stenotic internal carotid as the numerator and normal post-stenotic internal carotid caliber as denominator. Report Dictated on Electronically Signed By: Yasmani Briscoe MD Electronically Signed Date/Time: 05/21/2025 6:01 PM EDT [facility] NT PRO BNPon 05-21-2025 Natriuretic peptide B (Bld) [Mass/Vol] 89 pg/mL Normal <125 [facility] Comment on above: Performed By: #### L [id number], [id number], [id number] ####Casting Trucker: HAILEY HERNANDEZ ([phone])[facility] ([facility])[address] [place] [address] Natriuretic peptide B [Mass/ Vol]on 05-21-2025 Interpretation and review of laboratory results Normal [facility] Natriuretic peptide B (Bld) [Mass/Vol] 89 pg/mL NINF - 125 pg/mL [facility] No Panel Informationon 05-21 1. No acute intracranial findings. 2. Paranasal sinus disease, including possible sinonasal polyposis. MRA OF THE BRAIN CLINICAL INDICATION: Dizziness, persistent/recurrent, cardiac or vascular cause suspected TECHNIQUE: Routine MRA of the brain without gadolinium. COMPARISON: CTA head and neck, December,. FINDINGS: Flow-related enhancement in the intracranial internal carotid, proximal anterior and middle cerebral arteries. Flow-related enhancement in the basilar and proximal posterior cerebral arteries. Right [employer] derives major contribution from anterior circulation consistent with persistent origin, an anatomic variant. No large vessel cutoff, focal hemodynamically significant stenosis or apparent aneurysm. The intracranial vertebral arteries are patent. IMPRESSION: 1. No intracranial large vessel occlusion or significant stenosis. MRA OF THE NECK WITH AND WITHOUT GADOLINIUM CLINICAL INDICATION: Dizziness, persistent/recurrent, cardiac or vascular cause suspected TECHNIQUE: Routine MRA of the neck with and without IV gadolinium. COMPARISON: CTA head and neck, December,. FINDINGS: The bilateral common, internal and external carotid arteries are patent. Mild plaquing in bilateral proximal ICAs, with 50% or less stenosis. Carotid bifurcations have normal contour without significant plaque formation. No occlusion, focal hemodynamically significant stenosis or apparent aneurysm. Vertebral arteries are patent. Left vertebral artery dominant. Left common carotid artery origin from brachiocephalic artery or bovine arch incidentally noted. IMPRESSION: 1. No significant cervical ICA stenosis (50% or less) by NASCET criteria. Reference: Measurement of carotid stenosis is a ratio based on conventional angiographic data from the NASCET trials with the post stenotic internal carotid artery caliber minus the smallest caliber of the stenotic internal carotid as the numerator and normal post-stenotic internal carotid caliber as denominator. Report Dictated on Electronically Signed By: Yasmani Briscoe MD Electronically Signed Date/Time: 05/21/2025 6:01 PM EDT [facility] Radiology Study observation (narrative) [facility] 2h Troponin HS (Serial 2nd Troponin) 4 ng/L NINF - 35 ng/L [facility] Comment on above: Rising or falling tr oponin delta below 2 ng/L as compared to baseline value suggests that acute cardiac injury is unlikely. Interpretation and review of laboratory results Normal [facility] EKG shows normal sinus rhythm, 64 bpm, no STEMI, QTc normal. Interpretation was performed by me. Overall similar when compared to prior. Electronically Signed On 05-21-2025 01:10:32 EDT by Jacoby Sarah DO - 05/21/2025 IMPRESSION: EKG shows normal sinus rhythm, 64 bpm, no STEMI, QTc normal. Interpretation was performed by me. Overall similar when compared to prior. Electronically Signed On 05-21-2025 01:10:32 EDT by Jacoby Sanders [facility] Interpretation and review of laboratory results Normal [facility] Troponin HS Serial Baseline 5 ng/L NINF - 35 ng/L [facility] Comment on above: In individuals prese nting with symptoms > 2h, a baseline troponin <= 5 ng/L suggests acute cardiac injury is unlikely and further serial testing is generally not indicated. [facility] No Panel InformationOrdered By: Jacoby Sanders on 05-21-2025 P [place] 47 degrees [facility] Work Phone: MS Interval 128 ms [facility] Work Phone: QRS [place] 6 degrees [facility] Work Phone: QRSD Interval 98 ms [employer] Work Phone: QT Interval 410 ms [employer] Phone: QTC Interval 422 ms [facility] Work Phone: T Wave [place] 44 degrees [employer] Phone: [facility] Work Phone: Progress Noteon 05-21-2025 Progress Note OCCUPATIONAL THERAPY [facility] Name/MRN: Joseph Brown ([id number]) Date: 05/21/2025 Therapy eval and treat orders received. Chart review complete and spoke with evaluating physical therapist. Pt is currently IND for transfers / mobility without a device and demonstrates no current concerns for home going at this time. Will discontinue orders at this time. Should pt demo a change in status, please reorder OT services. Mikie Chavira, OT Normal [facility] [facility] Vital signsOrdered By: Jacoby Sanders on 05-21-2025 Heart rate 64 /min bpm [employer] Work Phone: ED Provider Noteon ED Provider Note EMERGENCY DEPARTMENT ENCOUNTER Pt Name: Joseph Brown Birthdate 1955 Date of evaluation: 05/20/2025 ED Provider: Jacoby Sanders DO CHIEF COMPLAINT Chief Complaint Patient presents with Headache X 2 weeks. Also endorses nausea and dizziness. Took tylenol at home with relief. HISTORY OF PRESENT ILLNESS (Location/Symptom, Timing/Onset, Context/Setting, Quality, Duration, Modifying Factors, Severity) Note limiting factors. I wore appropriate PPE for the entirety of this encounter. HPI Joseph Brown is a 69 y.o. who presents to the emergency department for evaluation of dizziness. Sometimes ongoing greater than 24 hours. He is having some associated nausea. He states he has been having left posterior headache describing it as a sharp stabbing pain that comes on every 30 seconds but improves with Tylenol. This headache has been there for 2 weeks. He denies any fevers or chills. No neck stiffness. No vomiting or diarrhea. He had similar symptoms with his dizziness few months back. He states that currently sitting upright he is asymptomatic when he lays flat everything comes on or when he stands up describing it as a room spinning sensation. He denies any numbness or weakness in the extremities. No slurred speech or vision changes. Nursing Notes were reviewed. Limitations to history: None Outside historians: None REVIEW OF SYSTEMS Review of Systems Pertinent positives and negatives as per HPI PAST MEDICAL HISTORY Medical History[1] SURGICAL HISTORY Surgical History[2] CURRENT MEDICATIONS Previous Medications ATORVASTATIN (LIPITOR) 10 MG TABLET Take 10 mg by mouth daily. MELOXICAM (MOBIC) 15 MG TABLET Take 1 tablet by mouth daily. ALLERGIES Patient has no known allergies. FAMILY HISTORY Family History[3] SOCIAL HISTORY Social History[4] PHYSICAL EXAM ED Triage Vitals [05/20/25 2220] Temp Heart Rate Resp BP 37.1 ?C (98.7 ?F) 68 20 137/80 SpO2 Temp Source Heart Rate Source Patient Position 99 % Temporal Monitor -- BP Location FiO2 (%) -- -- Physical Exam Vitals and nursing note reviewed. Constitutional: General: He is not in acute distress. Appearance: He is well-developed. HENT: Head: Normocephalic and atraumatic. Eyes: Conjunctiva/sclera: Conjunctivae normal. Cardiovascular: Rate and Rhythm: Normal rate and regular rhythm. Heart sounds: No murmur heard. Pulmonary: Effort: Pulmonary effort is normal. No respiratory distress. Breath sounds: Normal breath sounds. Abdominal: Palpations: Abdomen is soft. Tenderness: There is no abdominal tenderness. Musculoskeletal: General: No swelling. Cervical back: Neck supple. Skin: General: Skin is warm and dry. Capillary Refill: Capillary refill takes less than 2 seconds. Neurological: Mental Status: He is alert. Comments: NIH 0. No focal deficits. Moving all extremities. No ataxia. Finger-nose heel sexton normal bilaterally. Sensation and strength intact throughout. GCS 15. No slurred speech or difficulty getting words out. Psychiatric: Mood and Affect: Mood normal. DIAGNOSTIC RESULTS RADIOLOGY (Per Emergency Physician): Interpretation per the Radiologist below, if available at the time of this note: CT head wo IV contrast Final Result 1. No acute intracranial abnormalities. 2. Chronic sinonasal polyposis bilaterally. Report Dictated on Electronically Signed By: Avinash Miguel MD Electronically Signed Date/Time: 05/21/2025 1:00 AM EDT XR chest 1 view Final Result 1. Hypoinflation. 2. No other acute findings. Report Dictated on Electronically Signed By: Yasmani Briscoe MD Electronically Signed Date/Time: 05/20/2025 11:56 PM EDT LABS: Labs Reviewed COMPREHENSIVE METABOLIC PANEL - Abnormal Result Value SODIUM 142 POTASSIUM 4.1 CHLORIDE 111 (*) CARBON DIOXIDE 23 ANION GAP 8 UREA NITROGEN 17 CREATININE 0.89 GLUCOSE 163 (*) CALCIUM 8.7 (*) AST (SGOT) 25 ALT 18 ALKALINE PHOSPHATASE 66 ALBUMIN 3.5 BILIRUBIN, TOTAL 0.4 TOTAL PROTEIN 6.3 (*) eGFR >90.0 CBC WITH AUTO DIFFERENTIAL - Normal Auto WBC 8.7 RBC 4.43 Hemoglobin 13.7 Hematocrit 41.1 MCV 92.8 MCH 30.9 MCHC 33.3 RDW 13.8 Platelets 179 MPV 10.6 nRBC 0.0 Neutrophils Relative 64.3 Lymphocytes Relative 20.8 Monocytes Relative 8.7 Eosinophils Relative 5.2 Basophils Relative 0.5 Immature Grans % 0.5 Neutrophils Absolute 5.6 Lymphocytes Absolute 1.8 Monocytes Absolute 0.8 Eosinophils Absolute 0.5 Basophils Absolute 0.0 Immature Grans Absolute 0.0 HIGH SENSITIVITY TROPONIN, SERIAL BASELINE - Normal Troponin HS Serial Baseline 5 NT PRO BNP - Normal NT PRO BNP 89 HIGH SENSITIVITY TROPONIN, SERIAL, SECOND TEST - Normal 2h Troponin HS (Serial 2nd Troponin) 4 All other labs were within normal range or not returned as of this dictation. EMERGENCY DEPARTMENT COURSE and DIFFEREN (more content not included)... Normal [facility] XR Chest Single viewon 05-20 1. Hypoinflation. 2. No other acute findings. Report Dictated on Electronically Signed By: Yasmani Briscoe MD Electronically Signed Date/Time: 05/20/2025 11:56 PM EDT [facility] 1955 [id number] Exam Date/Time: 05/20/2025 23:37 Procedure: XR CHEST 1 VIEW Ordering Provider: SANDERS FELIX Reason For Exam: sob CHEST PORTABLE CLINICAL INDICATION: sob TECHNIQUE: Portable chest x-ray(s). COMPARISON: December,. FINDINGS: Cardiac and mediastinal silhouette within normal limits. Lungs are mildly hypoinflated. No significant vascular congestion. No focal consolidation or apparent pneumothorax. Degenerative change again noted in the thoracic spine. [facility] Yasmani Briscoe MD - 05/20/2025 Patient Name: JOSEPH BROWN : 1955 Exam Date/Time: 05/20/2025 23:37 Procedure: XR CHEST 1 VIEW Ordering Provider: SANDERS FELIX Reason For Exam: sob CHEST PORTABLE CLINICAL INDICATION: sob TECHNIQUE: Portable chest x-ray(s). COMPARISON: December,. FINDINGS: Cardiac and mediastinal silhouette within normal limits. Lungs are mildly hypoinflated. No significant vascular congestion. No focal consolidation or apparent pneumothorax. Degenerative change again noted in the thoracic spine. IMPRESSION: 1. Hypoinflation. 2. No other acute findings. Report Dictated on Electronically Signed By: Yasmani Briscoe MD Electronically Signed Date/Time: 05/20/2025 11:56 PM EDT [facility] Study observation (narrative) [employer] XR Chest Single viewOrdered By: Yasmani Briscoe on 05-20-2025 [employer] Work Phone: BASIC METABOLIC PANELon 03-0 Anion gap [Moles/Vol] 10 mmol/L Normal 3-13 [facility] Comment on above: Performed By: #### L [id number], [id number] ####[employer]: HAILEY HERNANDEZ ([phone])[facility] [place] ([facility])[address] Calcium [Mass/Vol] 8.8 mg/dL Normal 8.8-10.0 [facility] Comment on above: Performed By: #### L AB15, [id number] ####[employer]: HAILEY HERNANDEZ ([phone])[facility] [place] ([facility])[address] Chloride [Moles/Vol] 109 mmol/L High 98-107 [facility] Comment on above: Performed By: #### L AB15, [id number] ####[employer]: HAILEY HERNANDEZ ([phone])[facility] [place] ([facility])[address] CO2 [Moles/Vol] 21 mmol/L Low 23-31 [facility] Comment on above: Performed By: #### L AB15, [id number] ####[employer]: HAILEY HERNANDEZ ([id number])[facility] [place] ([facility])[address] Creatinine [Mass/Vol] 0.81 mg/dL Normal 0.72-1.25 [facility] Comment on above: Performed By: #### L AB15, [id number] ####C[employer]cker: HAILEY HERNANDEZ ([phone])[facility] [place] ([facility])[address] GLOMERULAR FILTRATION RATE ML/MIN/1.73 SQ M.PREDICTED >90.0 Normal >60.0 [facility] Comment on above: Result Comment: Calc ulation based on the Chronic Kidney Disease Epidemiology Collaboration (CKD-EPI) equation refit without adjustment for race Performed By: #### L AB15, [id number] ####Casting [employer]cker: HAILEY HERNANDEZ ([id number])[facility] [place] ([facility])[address] [place] [address] [place] Glucose [Mass/Vol] 134 mg/dL High 82-115 [facility] Comment on above: Performed By: #### L AB15, [id number] ####C[employer]cker: HAILEY HERNANDEZ ([id number])[facility] ([facility])[address] Potassium [Moles/Vol] 3.8 mmol/L Normal 3.5-5.1 [facility] Comment on above: Result Comment: [facility] potassium values may be up to 0.5 mmol/L lower than serum values. Performed By: #### L AB15, [id number] ####C[employer]cker: HAILEY HERNANDEZ ([phone])[facility] ([facility])[address] Sodium [Moles/Vol] 140 mmol/L Normal 136-145 [facility] Comment on above: Performed By: #### L AB15, [id number] ####C[employer]cker: HAILEY HERNANDEZ ([phone])[facility] ([facility])[address] Urea nitrogen [Mass/Vol] 18 mg/dL Normal 9-23 [facility] Comment on above: Performed By: #### L AB15, [id number] ####C[employer]cker: HAILEY HERNANDEZ ([phone])[facility] [place] [address] Basic metabolic 1998 panelon 12-20-2024 Anion gap [Moles/Vol] 10 mmol/L 3 - 13 mmol/L [facility] Calcium [Mass/Vol] 8.8 mg/dL 8.8 - 10. 0 mg/dL [facility] Chloride [Moles/Vol] 109 mmol/L High 98 - 10 7 mmol/L [facility] CO2 [Moles/Vol] 21 mmol/L Low 23 - 31 mmol/L [facility] Creatinine [Mass/Vol] 0.81 mg/dL 0.72 - 1.25 mg/dL [facility] GFR/1.73 sq M.predicted (S/P/Bld) [Vol rate/Area] - PINF [facility] Comment on above: Calculation based on the Chronic Kidney Disease Epidemiology Collaboration (CKD-EPI) equation refit without adjustment for race Glucose [Mass/Vol] 134 mg/dL High 82 - 115 mg/dL [facility] Interpretation and review of laboratory results Abnormal [facility] Potassium [Moles/Vol] 3.8 mmol/L 3.5 - 5.1 mmol/L [facility] Comment on above: Plasma potassium frank ues may be up to 0.5 mmol/L lower than serum values. Sodium [Moles/Vol] 140 mmol/L 136 - 145 mmol/L [facility] Urea nitrogen [Mass/Vol] 18 mg/dL 9 - 23 mg/dL [facility] CBC W Auto Differential pane l (Bld)on 12-20-2024 Basophils (Bld) [#/Vol] 0 10*3/uL 0.0 - 0.2 10*3/uL [facility] Basophils/100 WBC (Bld) 0.5 % 0.0 - 2.0 % [facility] Eosinophils (Bld) [#/Vol] 0.4 10*3/uL 0.0 - 0.5 10*3/uL [facility] Eosinophils/100 WBC (Bld) 4.3 % 0.0 - 6.0 % [facility] Erythrocyte distribution width (RBC) [Ratio] 13.6 % 11.5 - 15.0 % [facility] Hematocrit (Bld) [Volume fraction] 43.6 % 40.0 - 52.0 % [facility] Hemoglobin (Bld) [Mass/Vol] 14.7 g/dL 13.0 - 18.0 g/dL [facility] Immature granulocytes (Bld) [#/Vol] 0 10*3/uL NINF - 0.1 10*3/uL [facility] Immature granulocytes/100 WBC (Bld) 0.5 % 0.0 - 2.0 % [facility] Interpretation and review of laboratory results Normal [facility] Lymphocytes (Bld) [#/Vol] 2.1 10*3/uL 1.0 - 4.3 10*3/uL [facility] Lymphocytes/100 WBC (Bld) 24.2 % 15.0 - 45.0 % [facility] MCH (RBC) [Entitic mass] 30.4 pg 26.0 - 34.0 pg [facility] MCHC (RBC) [Mass/Vol] 33.7 % 30.5 - 36.0 % [facility] MCV (RBC) [Entitic vol] 90.1 fL 77.0 - 99.0 fL [facility] Monocytes (Bld) [#/Vol] 0.6 10*3/uL 0.0 - 0.9 10*3/uL [facility] Monocytes/100 WBC (Bld) 6.7 % 5.0 - 13.0 % [facility] Neutrophils (Bld) [#/Vol] 5.5 10*3/uL 1.8 - 7.5 10*3/uL [facility] Neutrophils/100 WBC (Bld) 63.8 % 38.0 - 82.0 % [facility] Nucleated RBC/100 WBC (Bld) [Ratio] 0 % [facility] Platelet mean volume (Bld) [Entitic vol] 10.2 fL 9.0 - 12.7 fL [facility] Platelets (Bld) [#/Vol] 207 10*3/uL 140 - 440 10*3/uL [facility] RBC (Bld) [#/Vol] 4.84 10*6/uL 4.40 - 5.9 0 10*6/uL [facility] WBC (Bld) [#/Vol] 8.6 10*3/uL 3.6 - 10.7 10*3/uL [facility] CBC WITH AUTO DIFFERENTIALon 12-20-2024 Basophils (Bld) [#/Vol] 0.0 10*3/uL Normal 0.0-0.2 [facility] Comment on above: Performed By: #### L [id number] #### Casting Trucker: HAILEY HERNANDEZ ([id number]) [facility] ([facility]) [address] Basophils/100 WBC (Bld) 0.5 % Normal 0.0-2.0 [facility] Comment on above: Performed By: #### L [id number] #### Casting [employer]cker: HAILEY HERNANDEZ ([id number]) [facility] ([facility]) [address] Eosinophils (Bld) [#/Vol] 0.4 10*3/uL Normal 0.0-0.5 [facility] Comment on above: Performed By: #### L [id number] #### Casting Trucker: HAILEY HERNANDEZ ([id number]) [facility] ([facility]) [address] [place] [address] Eosinophils/100 WBC (Bld) 4.3 % Normal 0.0-6.0 [facility] Comment on above: Performed By: #### L [id number] #### [employer]cker: HAILEY HERNANDEZ ([id number]) [facility] ([facility]) [address] [place] [address] Erythrocyte distribution width (RBC) [Ratio] 13.6 % Normal 11.5-15.0 [facility] Comment on above: Performed By: #### L [id number] #### [employer]cker: HAILEY HERNANDEZ ([id number]) [facility] ([facility]) [address] [place] [address] Hematocrit (Bld) [Volume fraction] 43.6 % Normal 40.0-52.0 [facility] Comment on above: Performed By: #### L [id number] #### Casting [employer]cker: HAILEY HERNANDEZ ([id number]) [facility] ([facility]) [address] [place] [address] Hemoglobin (Bld) [Mass/Vol] 14.7 g/dL Normal 13.0-18.0 [facility] Comment on above: Performed By: #### L [id number] #### [employer]cker: HAILEY HERNANDEZ ([id number]) [facility] ([facility]) [address] [place] [address] IMMATURE GRANS % 0.5 % Normal 0.0-2.0 [facility] Comment on above: Performed By: #### L [id number] #### Casting Trucker: HAILEY HERNANDEZ ([phone]) [facility] ([facility]) [address] [place] [address] IMMATURE GRANS ABSOLUTE 0.0 10*3/uL Normal <0.1 [facility] Comment on above: Performed By: #### L [id number] #### Casting Trucker: HAILEY HERNANDEZ ([id number]) [facility] ([facility]) [address] Lymphocytes (Bld) [#/Vol] 2.1 10*3/uL Normal 1.0-4.3 [facility] Comment on above: Performed By: #### L [id number] #### Casting Trucker: HAILEY HERNANDEZ ([id number]) [facility] ([facility]) [address] Lymphocytes/100 WBC (Bld) 24.2 % Normal 15.0-45.0 [facility] Comment on above: Performed By: #### L [id number] #### Casting Trucker: HAILEY HERNANDEZ ([id number]) [facility] ([facility]) [address] MCH (RBC) [Entitic mass] 30.4 pg Normal 26.0-34.0 [facility] Comment on above: Performed By: #### L [id number] #### Casting Trucker: HAILEY HERNANDEZ ([id number]) [facility] ([facility]) [address] MCHC 33.7 % Normal 30.5-36.0 [facility] Comment on above: Performed By: #### L [id number] #### Casting Trucker: HAILEY HERNANDEZ ([id number]) [facility] ([facility]) [address] MCV (RBC) [Entitic vol] 90.1 fL Normal 77.0-99.0 [facility] Comment on above: Performed By: #### L [id number] #### Casting Trucker: HAILEY HERNANDEZ ([phone]) [facility] ([facility]) [address] Monocytes (Bld) [#/Vol] 0.6 10*3/uL Normal 0.0-0.9 [facility] Comment on above: Performed By: #### L [id number] #### Casting Trucker: HAILEY HERNANDEZ ([phone]) [facility] ([facility]) [address] Monocytes/100 WBC (Bld) 6.7 % Normal 5.0-13.0 [facility] Comment on above: Performed By: #### L [id number] #### Casting Trucker: HAILEY HERNANDEZ ([id number]) [facility] ([facility]) [address] NEUTROPHILS ABSOLUTE 5.5 10*3/uL Normal 1.8-7.5 [facility] Comment on above: Performed By: #### L [id number] #### Casting Trucker: HAILEY GAITANLUCERO ([phone]) [facility] ([facility]) [address] Neutrophils/100 WBC (Bld) 63.8 % Normal 38.0-82.0 [facility] Comment on above: Performed By: #### L [id number] #### Casting Trucker: HAILEY HERNANDEZ ([phone]) [facility] ([facility]) [address] NRBC 0.0 /100 WBCs Normal 0.0-2.0 [facility] Comment on above: Performed By: #### L [id number] #### Casting Trucker: HAILEY HERNANDEZ ([phone]) [facility] ([facility]) [address] Platelet mean volume (Bld) [Entitic vol] 10.2 fL Normal 9.0-12.7 [facility] Comment on above: Performed By: #### L [id number] #### Casting Trucker: HAILEY HERNANDEZ ([id number]) [facility] ([facility]) [address] [place] [address] [place] Platelets (Bld) [#/Vol] 207 10*3/uL Normal 140-440 [facility] Comment on above: Performed By: #### L [id number] #### Casting Trucker: HAILEY HERNANDEZ ([id number]) [facility] ([facility]) [address] RBC (Bld) [#/Vol] 4.84 10*6/uL Normal 4.40-5.90 [facility] Comment on above: Performed By: #### L [id number] #### Casting Trucker: HAILEY HERNANDEZ ([id number]) [facility] ([facility]) [address] WBC (Bld) [#/Vol] 8.6 10*3/uL Normal 3.6-10.7 [facility] Comment on above: Performed By: #### L [id number] #### Casting Trucker: HAILEY HERNANDEZ ([id number]) [facility] ([facility]) [address] [place] [address] CT HEAD NECK ANGIO W AND WO IV CONTRASTon 12-20-2024 CT HEAD NECK ANGIO W AND WO IV CONTRAST Patient Name: JOSEPH BROWN : 1955 Exam Date/Time: 12/20/2024 10:09 Procedure: CT HEAD NECK ANGIO W AND WO IV CONTRAST Ordering Provider: CANTU BRIGID Reason For Exam: Dizziness, persistent/recurrent, cardiac or vascular cause suspected CT HEAD NECK ANGIO W AND WO IV CONTRAST HISTORY: Dizziness, persistent/recurrent, cardiac or vascular cause suspected TECHNIQUE: CTA of the head and neck was performed after the intravenous administration of contrast. Post-processed 3-D images were created, reviewed and archived. Dose reduction was employed with automated exposure control. COMPARISON: None. RESULT: BRAIN: CT the head was ordered and dictated separately NECK: Soft tissues: Within normal limits. Spine: Alignment is normal. Mild spondylosis. Lungs: The imaged lungs are clear. CT ARTERIOGRAM: EXTRACRANIAL CIRCULATION: Aortic arch and branch vessels: Two-vessel aortic arch is noted, with common origin of the brachiocephalic vein and left common carotid artery, normal variant. No significant stenosis in the proximal brachiocephalic vessels. Carotid Stenosis: Right Common: No significant stenosis. Right Internal Carotid Plaque: Mild atherosclerotic plaque without significant stenosis. Right Internal Carotid Stenosis (% by NASCET Criteria): Less than 30 percent Left Common: No significant stenosis. Left Internal Carotid Plaque: Mild atherosclerotic plaque without significant stenosis. Left Internal Carotid Stenosis (% by NASCET Criteria): Less than 30 percent Cervical Vertebral Arteries: Patency: Bilateral Dominance: Left INTRACRANIAL CIRCULATION: Anterior Circulation: The ICAs, MCAs, ACAs and proximal branches are patent and normal in caliber without occlusion, high-grade stenosis or aneurysm. Vertebrobasilar Circulation: The V4 segments , basilar artery and neighborhood worker are patent and normal in caliber. The proximal SCAs, AICAs and PICAs are patent. The superior sagittal sinus, straight sinus, confluence, transverse and sigmoid sinuses are patent. IMPRESSION: No large vessel occlusion or high-grade stenosis in the head or neck. Less than 30 percent stenosis of the proximal cervical ICAs bilaterally by NASCET criteria. Report Dictated on Electronically Signed By: Jerardo Magallanes MD Electronically Signed Date/Time: 12/20/2024 11:17 AM EST Dizziness, persistent/recurrent, cardiac or vascular cause suspected Normal [facility] CT HEAD WO IV CONTRASTon CT HEAD WO IV CONTRAST Patient Name: JOSEPH BROWN : 1955 [facility]#: [id number] Exam Date/Time: 12/20/2024 09:29 Procedure: CT HEAD WO IV CONTRAST Ordering Provider: CANTU BRIGID Reason For Exam: Dizziness, persistent/recurrent, cardiac or vascular cause suspected EXAMINATION: CT of the head without intravenous contrast. EXAM DATE AND TIME: 12/20/2024 9:29 AM EST INDICATION: Dizziness, persistent/recurrent, cardiac or vascular cause suspected ADDITIONAL INFORMATION: 69-year-old male with dizziness presents for evaluation COMPARISON: CT head dated 08/06/2017 LIMITATIONS: None TECHNIQUE: Thin axial imaging of the head was performed without intravenous contrast. Images were reformatted in coronal and sagittal projections using the raw CT data and were interpreted in conjunction with the axial images to render the findings listed below. Dose reduction was employed with automated exposure control. FINDINGS: Brain: No mass or acute hemorrhage. No evidence of acute infarct. Confluent areas of periventricular and subcortical white matter hypodensity are present, in keeping with chronic ischemic microangiopathy. Ventricles: Generalized enlargement of the ventricles and sulci is noted without extracerebral collection with mass effect. Paranasal sinuses: There is near complete opacification of the frontal, ethmoid, and right sphenoid sinuses. Bilateral maxillary sinus opacification is also seen, right greater than left. Mastoids: Clear. Skull: The osseous calvarium is intact. Orbits: No orbital emphysema. Soft tissues: The soft tissues are unremarkable. IMPRESSION: 1. No acute intracranial abnormality. Chronic microvascular change. 2. Fairly extensive paranasal sinus disease. Report Dictated on Electronically Signed By: Haresh Reyes MD Electronically Signed Date/Time: 12/20/2024 10:05 AM EST Pt comes to ED via EMS from home with c/o vertigo and vomiting that started around 0330 this morning. Pt states he feels like he is on a boat in the ocean and feels like he is spinning. Pt is vomiting during triage and states that the base of his neck is hurting and that began this morning. Pt states this has happened twice before 1 month ago and 3 weeks ago. Normal [facility] CT Head WO contraston 2024 1. No acute intracranial abnormality. Chronic microvascular change. 2. Fairly extensive paranasal sinus disease. Report Dictated on Electronically Signed By: Haresh Reyes MD Electronically Signed Date/Time: 12/20/2024 10:05 AM [facility] 1955 [id number] Exam Date/Time: 12/20/2024 09:29 Procedure: CT HEAD WO IV CONTRAST Ordering Provider: CANTU BRIGID Reason For Exam: Dizziness, persistent/recurrent, cardiac or vascular cause suspected EXAMINATION: CT of the head without intravenous contrast. EXAM DATE & TIME: 12/20/2024 9:29 AM EST INDICATION: Dizziness, persistent/recurrent, cardiac or vascular cause suspected ADDITIONAL INFORMATION: 69-year-old male with dizziness presents for evaluation COMPARISON: CT head dated 08/06/2017 LIMITATIONS: None TECHNIQUE: Thin axial imaging of the head was performed without intravenous contrast. Images were reformatted in coronal and sagittal projections using the raw CT data and were interpreted in conjunction with the axial images to render the findings listed below. Dose reduction was employed with automated exposure control. FINDINGS: Brain: No mass or acute hemorrhage. No evidence of acute infarct. Confluent areas of periventricular and subcortical white matter hypodensity are present, in keeping with chronic ischemic microangiopathy. Ventricles: Generalized enlargement of the ventricles and sulci is noted without extracerebral collection with mass effect. Paranasal sinuses: There is near complete opacification of the frontal, ethmoid, and right sphenoid sinuses. Bilateral maxillary sinus opacification is also seen, right greater than left. Mastoids: Clear. Skull: The osseous calvarium is intact. Orbits: No orbital emphysema. Soft tissues: The soft tissues are unremarkable. [facility] Haresh Reyes MD - 12/20/2024 [facility] 1955 [id number] Exam Date/Time: 12/20/2024 09:29 Procedure: CT HEAD WO IV CONTRAST Ordering Provider: CANTU BRIGID Reason For Exam: Dizziness, persistent/recurrent, cardiac or vascular cause suspected EXAMINATION: CT of the head without intravenous contrast. EXAM DATE & TIME: 12/20/2024 9:29 AM EST INDICATION: Dizziness, persistent/recurrent, cardiac or vascular cause suspected ADDITIONAL INFORMATION: 69-year-old male with dizziness presents for evaluation COMPARISON: CT head dated 08/06/2017 LIMITATIONS: None TECHNIQUE: Thin axial imaging of the head was performed without intravenous contrast. Images were reformatted in coronal and sagittal projections using the raw CT data and were interpreted in conjunction with the axial images to render the findings listed below. Dose reduction was employed with automated exposure control. FINDINGS: Brain: No mass or acute hemorrhage. No evidence of acute infarct. Confluent areas of periventricular and subcortical white matter hypodensity are present, in keeping with chronic ischemic microangiopathy. Ventricles: Generalized enlargement of the ventricles and sulci is noted without extracerebral collection with mass effect. Paranasal sinuses: There is near complete opacification of the frontal, ethmoid, and right sphenoid sinuses. Bilateral maxillary sinus opacification is also seen, right greater than left. Mastoids: Clear. Skull: The osseous calvarium is intact. Orbits: No orbital emphysema. Soft tissues: The soft tissues are unremarkable. IMPRESSION: 1. No acute intracranial abnormality. Chronic microvascular change. 2. Fairly extensive paranasal sinus disease. Report Dictated on Electronically Signed By: Haresh Reyes MD Electronically Signed Date/Time: 12/20/2024 10:05 AM [facility] Radiology Study observation (narrative) [facility] CTA Head vessels and Neck ve ssels WO and W contrast Emma 12-20-2024 No large vessel occlusion or high-grade stenosis in the head or neck. Less than 30 percent stenosis of the proximal cervical ICAs bilaterally by NASCET criteria. Report Dictated on Electronically Signed By: Jerardo Magallanes MD Electronically Signed Date/Time: 12/20/2024 11:17 AM [facility] Patient Name: [facility]SEPH BROWN [facility] 1955 [id number] Exam Date/Time: 12/20/2024 10:09 Procedure: CT HEAD NECK ANGIO W AND WO IV CONTRAST Ordering Provider: CANTU BRIGID Reason For Exam: Dizziness, persistent/recurrent, cardiac or vascular cause suspected CT HEAD NECK ANGIO W AND WO IV CONTRAST HISTORY: Dizziness, persistent/recurrent, cardiac or vascular cause suspected TECHNIQUE: CTA of the head and neck was performed after the intravenous administration of contrast. Post-processed 3-D images were created, reviewed and archived. Dose reduction was employed with automated exposure control. COMPARISON: None. RESULT: BRAIN: CT the head was ordered and dictated separately NECK: Soft tissues: Within normal limits. Spine: Alignment is normal. Mild spondylosis. Lungs: The imaged lungs are clear. CT ARTERIOGRAM: EXTRACRANIAL CIRCULATION: Aortic arch and branch vessels: Two-vessel aortic arch is noted, with common origin of the brachiocephalic vein and left common carotid artery, normal variant. No significant stenosis in the proximal brachiocephalic vessels. Carotid Stenosis: Right Common: No significant stenosis. Right Internal Carotid Plaque: Mild atherosclerotic plaque without significant stenosis. Right Internal Carotid Stenosis (% by NASCET Criteria): Less than 30 percent Left Common: No significant stenosis. Left Internal Carotid Plaque: Mild atherosclerotic plaque without significant stenosis. Left Internal Carotid Stenosis (% by NASCET Criteria): Less than 30 percent Cervical Vertebral Arteries: Patency: Bilateral Dominance: Left INTRACRANIAL CIRCULATION: Anterior Circulation: The ICAs, MCAs, ACAs and proximal branches are patent and normal in caliber without occlusion, high-grade stenosis or aneurysm. Vertebrobasilar Circulation: The V4 segments , basilar artery and neighborhood worker are patent and normal in caliber. The proximal SCAs, AICAs and PICAs are patent. The superior sagittal sinus, straight sinus, confluence, transverse and sigmoid sinuses are patent. [facility] Jerardo Magallanes MD - 12/20/2024 Patient Name: JOSEPH BROWN : 1955 Exam Date/Time: 12/20/2024 10:09 Procedure: CT HEAD NECK ANGIO W AND WO IV CONTRAST Ordering Provider: CANTU BRIGID Reason For Exam: Dizziness, persistent/recurrent, cardiac or vascular cause suspected CT HEAD NECK ANGIO W AND WO IV CONTRAST HISTORY: Dizziness, persistent/recurrent, cardiac or vascular cause suspected TECHNIQUE: CTA of the head and neck was performed after the intravenous administration of contrast. Post-processed 3-D images were created, reviewed and archived. Dose reduction was employed with automated exposure control. COMPARISON: None. RESULT: BRAIN: CT the head was ordered and dictated separately NECK: Soft tissues: Within normal limits. Spine: Alignment is normal. Mild spondylosis. Lungs: The imaged lungs are clear. CT ARTERIOGRAM: EXTRACRANIAL CIRCULATION: Aortic arch and branch vessels: Two-vessel aortic arch is noted, with common origin of the brachiocephalic vein and left common carotid artery, normal variant. No significant stenosis in the proximal brachiocephalic vessels. Carotid Stenosis: Right Common: No significant stenosis. Right Internal Carotid Plaque: Mild atherosclerotic plaque without significant stenosis. Right Internal Carotid Stenosis (% by NASCET Criteria): Less than 30 percent Left Common: No significant stenosis. Left Internal Carotid Plaque: Mild atherosclerotic plaque without significant stenosis. Left Internal Carotid Stenosis (% by NASCET Criteria): Less than 30 percent Cervical Vertebral Arteries: Patency: Bilateral Dominance: Left INTRACRANIAL CIRCULATION: Anterior Circulation: The ICAs, MCAs, ACAs and proximal branches are patent and normal in caliber without occlusion, high-grade stenosis or aneurysm. Vertebrobasilar Circulation: The V4 segments , basilar artery and neighborhood worker are patent and normal in caliber. The proximal SCAs, AICAs and PICAs are patent. The superior sagittal sinus, straight sinus, confluence, transverse and sigmoid sinuses are patent. IMPRESSION: No large vessel occlusion or high-grade stenosis in the head or neck. Less than 30 percent stenosis of the proximal cervical ICAs bilaterally by NASCET criteria. Report Dictated on Electronically Signed By: Jerardo Magallanes MD Electronically Signed Date/Time: 12/20/2024 11:17 AM EST [facility] Radiology Study observation (narrative) [facility] CTA Head vessels and Neck ve ssels WO and W contrast IVOrdered By: Jerardo Magallanes on 12-20-2024 [facility] Work Phone: ED Nursing Noteon 12-20-2024 ED Nursing Note Pt comes to ED via EMS from home with c/o vertigo and vomiting that started around 0330 this morning. Pt states he feels like he is on a boat in the ocean and feels like he is spinning. Pt is vomiting during triage and states that the base of his neck is hurting and that began this morning. Pt states this has happened twice before 1 month ago and 3 weeks ago. Normal [facility] ED Provider Noteon ED Provider Note EMERGENCY DEPARTMENT ENCOUNTER Pt Name: Joseph Brown Birthdate 1955 Date of evaluation: 12/20/2024 ED Provider: Cydney Cantu DO CHIEF COMPLAINT Chief Complaint Patient presents with Vomiting Vertigo Pt comes to ED via EMS from home with c/o vertigo and vomiting that started around 0330 this morning. Pt states he feels like he is on a boat in the ocean and feels like he is spinning. Pt is vomiting during triage and states that the base of his neck is hurting and that began this morning. Pt states this has happened twice before 1 month ago and 3 weeks ago. HISTORY OF PRESENT ILLNESS (Location/Symptom, Timing/Onset, Context/Setting, Quality, Duration, Modifying Factors, Severity) Note limiting factors. I wore appropriate PPE for the entirety of this encounter. HPI 69-year-old male with past medical history of hyperlipidemia and arthritis presents emergency department today with room spinning dizziness, nausea and vomiting onset 4 AM. States he had an episode about 5 weeks ago which resolved after getting some fresh air. Denies any chest pain or palpitations. Denies any abdominal pain. Nursing Notes were reviewed. Limitations to history: None Outside historians: None REVIEW OF SYSTEMS Review of Systems Gastrointestinal: Positive for nausea and vomiting. Neurological: Positive for dizziness. Pertinent positives and negatives as per HPI. PAST MEDICAL HISTORY Past Medical History: Diagnosis Date Arthritis SVT (supraventricular tachycardia) (HCC) Syncope SURGICAL HISTORY Past Surgical History: Procedure Laterality Date AMPUTATION fingers CHOLECYSTECTOMY CURRENT MEDICATIONS Previous Medications ATORVASTATIN (LIPITOR) 10 MG TABLET Take 10 mg by mouth daily. MELOXICAM (MOBIC) 15 MG TABLET Take 1 tablet by mouth daily. ALLERGIES Patient has no known allergies. FAMILY HISTORY Family History Problem Relation Name Age of Onset Coronary artery disease Mother Emphysema Father COPD Mother COPD Brother COPD Father Heart failure Mother CHF Diabetes Brother SOCIAL HISTORY Social History Socioeconomic History Marital status: Tobacco Use Smoking status: Former Current packs/day: 0.00 Types: Cigarettes Quit date: 10/16/1982 Years since quittin.2 Smokeless tobacco: Former Quit date: 10/16/1981 Substance and Sexual Activity Alcohol use: No Drug use: No SCREENINGS B[place]ley Coma Scale Best Eye Response: Spontaneous Best Verbal Response: Oriented Best Motor Response: Follows commands Kermit Coma Scale Score: 15 NIH Stroke Scale 1A. Level of Consciousness: Alert, Keenly Responsive 1B. Ask Month and Age: Both Questions Right 1C. Blink Eyes & Squeeze Hands: Performs Both Tasks 2. Best Gaze: Normal 3. Visual: No Visual Loss 4. Facial Palsy: Normal Symmetrical Movements 5A. Motor - Left Arm: No Drift 5B. Motor - Right Arm: No Drift 6A. Motor - Left Leg: No Drift 6B. Motor - Right Leg: No Drift 7. Limb Ataxia: Absent 8. Sensory Loss: Normal 9. Best Language: No Aphasia 10. Dysarthria: Normal 11. Extinction and Inattention: No Abnormality NIH Stroke Scale: 0 PHYSICAL EXAM ED Triage Vitals Temp Pulse Resp BP -- -- -- -- SpO2 Temp src Heart Rate Source Patient Position -- -- -- -- BP Location FiO2 (%) -- -- Physical Exam Vitals and nursing note reviewed. Constitutional: General: He is not in acute distress. Appearance: He is well-developed. HENT: Head: Normocephalic and atraumatic. Eyes: Conjunctiva/sclera: Conjunctivae normal. Cardiovascular: Rate and Rhythm: Normal rate and regular rhythm. Heart sounds: No murmur heard. Pulmonary: Effort: Pulmonary effort is normal. No respiratory distress. Breath sounds: Normal breath sounds. Abdominal: Palpations: Abdomen is soft. Tenderness: There is no abdominal tenderness. Comments: Actively vomiting Musculoskeletal: General: No swelling. Cervical back: Neck supple. Skin: General: Skin is warm and dry. Neurological: Mental Status: He is alert. Psychiatric: Mood and Affect: Mood normal. DIAGNOSTIC RESULTS Procedures/EKG: EKG was reviewed by myself. Physician EKG interpretation can be found in [facility] RADIOLOGY (Per Emergency Physician): Interpretation per the Radiologist below, if available at the time of this note: CTA head neck angio w and wo IV contrast Final Result No large vessel occlusion or high-grade stenosis in the head or neck. Less than 30 percent stenosis of the proximal cervical ICAs bilaterally by NASCET criteria. Report Dictated on Electronically Signed By: Jerardo Magallanes MD Electronically Signed Date/Time: 12/20/2024 11:[address] head wo IV contrast Final Result 1. No acute intracranial abnormality. Chronic microvascular change. 2. Fairly extensive paranasal sinus disease. Report Dictated on Workstation: [id number] (more content not included)... Normal [facility] HIGH SENSITIVITY TROPONIN, S ERIAL BASELINEon 12-20-2024 TROPONIN HS SERIAL BASELINE <3 Normal <=35 [facility] Comment on above: Result Comment: In i ndividuals presenting with symptoms > 2h, a baseline troponin <= 5 ng/L suggests acute cardiac injury is unlikely and further serial testing is generally not indicated. Performed By: #### L [id number], [id number] ####Casting Trucker: HAILEY HERNANDEZ ([phone])[facility] ([facility])[address] [place] [address] HIGH SENSITIVITY TROPONIN, S ERIAL, SECOND TESTon 12-20-2024 2H TROPONIN HS (SERIAL 2ND TROPONIN) 3 ng/L Normal <=35 [facility] Comment on above: Result Comment: Delt a value was unable to be calculated as both baseline and serial troponin tests were below the level of quantitation. As both baseline and 2h troponin values are below the level of quantitation, acute cardiac injury is unlikely. Performed By: #### L [id number] ####Casting Trucker: HAILEY HERNANDEZ ([phone])[facility] [place] [address] No Panel Informationon 12-20 P Conway 46 degrees [facility] MS Interval 126 ms [facility] QRS [place] -7 degrees [facility] QRSD [facility]val [facility] 416 ms [facility] QTC Interval 463 ms [facility] T Wave [place] 45 degrees [facility] Cydney Cantu D O - 12/20/2024 IMPRESSION: Sinus rhythm Abnormal R-wave progression, early transition Minimal ST depression, lateral leads Electronically Signed On 12-20-2024 15:38:23 EST by Cydney Cantu [facility] 2h Troponin HS (Serial 2nd Troponin) 3 ng/L NINF - 35 ng/L [facility] Comment on above: Delta value was unab le to be calculated as both baseline and serial troponin tests were below the level of quantitation. As both baseline and 2h troponin values are below the level of quantitation, acute cardiac injury is unlikely. Interpretation and review of laboratory results Normal [facility] Interpretation and review of laboratory results Normal [facility] Troponin HS Serial Baseline ng/L [facility] - [facility] ng/L [facility] Comment on above: In individuals prese nting with symptoms > 2h, a baseline troponin <= 5 ng/L suggests acute cardiac injury is unlikely and further serial testing is generally not indicated. [facility] Vital signson 12-20-2024 Heart rate 74 /min bpm [facility] XR Chest Single viewon 12-20 No acute cardiopulmonary abnormality identified. Report Dictated on Electronically Signed By: Haresh Reyes MD Electronically Signed Date/Time: 12/20/2024 9:31 AM [facility] Patient Name: JOSEPH BROWN : 1955 Exam Date/Time: 12/20/2024 09:24 Procedure: XR CHEST 1 VIEW Ordering Provider: CANTU BRIGID Reason For Exam: CHEST PAIN EXAMINATION: XR chest AP. EXAM DATE & TIME: 12/20/2024 9:24 AM EST INDICATION: CHEST PAIN ADDITIONAL INFORMATION: 69-year-old male with chest pain presents for evaluation COMPARISON: Chest x-ray dated 04/06/2021 TECHNIQUE: Frontal view of the chest was obtained. FINDINGS: Lines/support devices: None. Cardiomediastinal silhouette: Within normal limits. Lungs/pleura: No focal consolidation, pleural effusion or pneumothorax. Osseous structures: Degenerative changes of the spine and shoulders are seen. No acute osseous abnormality is demonstrated. Other findings: None. [facility] Haresh Reyes MD - 12/20/2024 Patient Name: JOSEPH BROWN : 1955 Exam Date/Time: 12/20/2024 09:24 Procedure: XR CHEST 1 VIEW Ordering Provider: CANTU BRIGID Reason For Exam: CHEST PAIN EXAMINATION: XR chest AP. EXAM DATE & TIME: 12/20/2024 9:24 AM EST INDICATION: CHEST PAIN ADDITIONAL INFORMATION: 69-year-old male with chest pain presents for evaluation COMPARISON: Chest x-ray dated 04/06/2021 TECHNIQUE: Frontal view of the chest was obtained. FINDINGS: Lines/support devices: None. Cardiomediastinal silhouette: Within normal limits. Lungs/pleura: No focal consolidation, pleural effusion or pneumothorax. Osseous structures: Degenerative changes of the spine and shoulders are seen. No acute osseous abnormality is demonstrated. Other findings: None. IMPRESSION: No acute cardiopulmonary abnormality identified. Report Dictated on Electronically Signed By: Haresh Reyes MD Electronically Signed Date/Time: 12/20/2024 9:31 AM EST [facility] Radiology Study observation (narrative) [facility] XR Chest Single viewOrdered By: Haresh Reyes on 12-20-2024 [email or web address] Phone: MRI Spine Lumbar w/o Contras ton 08-28-2021 MRI Spine Lumbar w/o Contrast [facility]: [id number] ACCESSION EXAM DATE/TIME PROCEDURE ORDERING PROVIDER [id number] 08/28/2021 08:20 EST MRI Spine Lumbar w/o DO DING LINDA J Contrast CPT code 89471 Reason For Exam (MRI Spine Lumbar w/o Contrast) lower back pain Report EXAM TYPE: MRI Spine Lumbar w/o Contrast EXAM DATE AND TIME: 08/28/2021 8:20 AM EST INDICATION: Low back pain COMPARISON: NONE TECHNIQUE: MR imaging of the lumbar spine was performed without contrast. Axial, coronal and sagittal imaging was obtained. The study is mildly motion degraded. FINDINGS: The last fully formed disc space is considered L5-S1. There is normal lumbar lordosis. No subluxation. Vertebral body heights are maintained. Multilevel degenerative endplate changes are present throughout the lumbar spine. There is multilevel disc desiccation with relative sparing of the disc at L1-L2. No significant loss of disc height. The conus terminates at the L1 level. The distal cord is normal in size and signal characteristics. T12-L1: No disc herniation. Mild bilateral facet hypertrophy. No spinal canal or foraminal narrowing.. L1-L2: No disc herniation. No spinal canal or foraminal narrowing.. L2-L3: Moderate disc osteophyte complex. Moderate bilateral facet hypertrophy. Mild spinal canal narrowing. Mild bilateral foraminal narrowing. Disc material contacts the exiting left L2 nerve root in the foraminal zone. L3-L4: Moderate disc osteophyte complex. Moderate bilateral facet hypertrophy. Mild spinal canal narrowing. Moderate bilateral foraminal narrowing. Disc material contacts the exiting left L3 nerve root in the foraminal zone.. L4-L5: Mild disc osteophyte complex. Moderate bilateral facet hypertrophy. Severe bilateral foraminal narrowing. Disc material contacts the exiting bilateral L4 nerve root in the foraminal zones. Mild spinal canal narrowing.. L5-S1: Mild disc osteophyte complex. Moderate bilateral facet Magnetic Resonance Imaging Report hypertrophy. Severe bilateral foraminal narrowing, right greater left. Narrowing of the right lateral recess. No central spinal canal narrowing.. IMPRESSION: 1. Disc material contacts the exiting left-sided nerve roots at L2-L3 and L3-L4 as well as bilaterally at L4-L5 in the foraminal zones. 2. Otherwise, multilevel degenerative changes of the lumbar spine as described. 3. Mildly motion degraded study. 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 COMPARISON: 12/09/2020 FINDINGS: The cardiac silhouette is within normal limits. No focal consolidation is seen within the lungs. No pleural effusion or pneumothorax is identified. Degenerative changes of the thoracic spine are noted. IMPRESSION: No acute cardiopulmonary disease. 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 COMPARISON: 12/09/2020 FINDINGS: The cardiac silhouette is within normal limits. No focal consolidation is seen within the lungs. No pleural effusion or pneumothorax is identified. Degenerative changes of the thoracic spine are noted. IMPRESSION: No acute cardiopulmonary disease. 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 COMPARISON: 12/09/2020 FINDINGS: The cardiac silhouette is within normal limits. No focal consolidation is seen within the lungs. No pleural effusion or pneumothorax is identified. Degenerative changes of the thoracic spine are noted. IMPRESSION: No acute cardiopulmonary disease. Report Dictated on --- Final --- Dictating Physician: MD DOWELL JONATHAN R Signed Date and Time: 04/06/2021 1:24 pm Signed by: MD DOWELL JONATHAN R Transcribed Date and Time: 04/06/2021 1:25 [facility] Work Phone: [facility] Work Phone: CR Chest PA/LATon 12-09-2020 CR Chest PA/LAT Patient Name: JOSEPH BROWN [facility]#: [id number] Diagnostic Radiology ACCESSION EXAM DATE/TIME PROCEDURE ORDERING PROVIDER [id number] 12/09/2020 12:30 EST CR Chest PA and LAT CAROLINA FRANCOIS CPT code 44730 Reason For Exam (CR Chest PA and LAT) sob Report Clinical History: sob Comparison: 10/31/2020 Technique: PA and lateral radiographs were obtained of the chest. Findings: Again seen are bilateral interstitial opacities. The overall extent is slightly decreased compared to 10/31/2020. No pleural effusions are seen. The trachea is midline. No pneumothorax. The heart size and mediastinal contours are normal. Pulmonary vascularity is normal. The osseous structures are unremarkable. Impression: Bilateral interstitial opacities with mild improvement compared to 10/31/2020. Report Dictated on Final Dictating Physician: MD GAMALIEL, GURMEET DURÁN Signed Date and Time: 12/09/2020 1:59 pm Signed by: MD ALSTON YUN ROBERT Transcribed Date and Time: 12/09/2020 2:00 Normal [facility] ECHO Complete 2D W Doppler W Coloron 12-09-2020 TRANSTHORACIC ECHOCARDIOGRAM PATIENT: Joseph Brown STUDY DATE: 12/09/2020 [facility]#: [id number] : 1955 AGE: 65 HT/WT: 182.9 cm (72 94.3 kg in) (207.6 lb) GENDER: M BP: 131 / 67 LOCATION: [facility] PATIENT Outpatient [facility] STATUS: *ORDERING PHYSICIAN: * Eve Garcia *READING PHYSICIAN: * Ck Estrada MD *TOP DYEING MACHINE LOADER: Saran CASH -------- INDICATIONS: LV FX. -------- HISTORY: PMH: COVID 10-19-2020. Risk factors: Hypertension. Transthoracic echocardiography (2017). -------- CONCLUSIONS SUMMARY: 1. Left ventricle: The cavity size is normal. Wall thickness is mildly increased. Systolic function is normal by visual assessment. The estimated ejection fraction is 60%. 2. Pericardium, extracardiac: A trivial-small pericardial effusion is present. There is no echocardiographic evidence for pericardial tamponade. 3. Technically difficult study. 4. No significant valve disease. -------- STUDY DATA: Complete transthoracic echocardiogram. Procedure: Image quality was suboptimal. The study was technically limited due to poor acoustic window availability, body habitus, and respiratory interference. Intravenous imaging enhancement (Definity) was administered. Definity lot #: [id number]. M-mode, complete 2D, complete spectral Doppler, and color flow Doppler images were acquired and archived for permanent storage and are available for subsequent review. Study status: Routine. Patient status: Outpatient. -------- FINDINGS LEFT VENTRICLE: The cavity size is normal. Wall thickness is mildly increased. Systolic function is normal by visual assessment. The estimated ejection fraction is 60%. There are no regional wall motion abnormalities. Doppler parameters are consistent with abnormal left ventricular relaxation (grade 1 diastolic dysfunction). RIGHT VENTRICLE: Poorly visualized. The cavity size is normal. Systolic function is normal. VENTRICULAR SEPTUM: The septum is normal. LEFT ATRIUM: The atrium is normal in size. RIGHT ATRIUM: Poorly visualized. The atrium is normal in size. MITRAL VALVE: Normal (thickness) leaflets. Doppler: There is no significant regurgitation. The peak diastolic gradient is 2 mm Hg. AORTIC VALVE: Structurally normal valve. Probably trileaflet. Doppler: There is no significant regurgitation. The peak systolic gradient is 4 mm Hg. The peak systolic velocity is 0.9 m/sec. TRICUSPID VALVE: Structurally normal valve. Doppler: There is no significant regurgitation. PULMONIC VALVE: Structurally normal valve. Doppler: There is trivial, less than 1+ regurgitation. AORTA: Aortic root: The aortic root is normal. Ascending aorta: The ascending aorta is mildly dilated. PERICARDIUM: A trivial-small pericardial effusion is present. Doppler: There is no echocardiographic evidence for pericardial tamponade. SYSTEMIC VEINS: Inferior vena cava: Not visualized. -------- Measurements Value 08/07/2017 Reference Ascending aorta ID, A-P, S 3.6 cm --------- Ascending aorta ID/bsa, A-P, 1.7 cm/m^2 --------- S Left ventricle Value 08/07/2017 Reference LV ID, ED (L) 4.0 cm 4.9 4.2 - 5.8 LV ID, ES 2.6 cm 3.8 2.5 - 4.0 LV ID/bsa, ED (L) 1.8 cm/m^2 2.2 - 3.0 LV ID/bsa, ES (L) 1.2 cm/m^2 1.3 - 2.1 LV PW thickness, ED (H) 1.3 cm 1.3 0.6 - 1.0 LV PW/LV ID ratio, ED 0.32 --------- LV wall mass (H) 211 g 96 - 200 LV wall mass/bsa 97 g/m^2 50 - 102 Stroke volume/bsa, 1-p A2C 26.9 ml/m^2 --------- LV end-diastolic volume, 1-p 137 ml 69 - 185 A4C LV end-systolic volume, 1-p 57 ml 22 - 78 A4C LV end-diastolic volume, 2-p 121 ml 62 - 150 LV end-systolic volume, 2-p 51 ml 21 - 61 LV E/e', lateral 10.1 12.8 --------- LV E/e', medial 8.7 14.1 --------- LV E/e', average 10.2 13.5 --------- Ventricular septum Value 08/07/2017 Reference IVS thickness, ED (H) 1.5 cm 1.4 0.6 - 1.0 LVOT Value 08/07/2017 Reference LVOT ID, A-P 2.5 cm 2.0 --------- LVOT mean velocity, S 0.6 m/sec --------- LVOT peak gradient, S 3 mm Hg --------- Stroke volume (SV), LVOT DP 78 ml --------- Stroke index (SV/bsa), LVOT 36 ml/m^2 --------- DP Aortic valve Value 08/07/2017 Reference Aortic valve peak velocity, 0.9 m/sec 1 --------- S Aortic peak gradient, S 4 mm Hg 4 --------- Left atrium Value 08/07/2017 Reference LA volume/bsa, ES, 2-p 29 ml/m^2 29 16 - 34 Mitral valve Value 08/07/2017 Reference Mitral E-wave peak velocity 0.8 m/sec 1.1 --------- Mitral A-wave peak velocity 1 m/sec 0.9 --------- Mitral peak gradient, D 2 mm Hg 5 --------- Mitral E/A ratio, peak 0.7 1.3 --------- Systemic veins Value 08/07/2017 Reference Estimated RAP 8 mm Hg 8 --------- Legend: (L) and (H) cosmo values outside specified reference range. Electronically signed by Ck Estrada MD 12/09/2020 14:45 Prior Signatures: [employer] Work Phone: [employer] Incoming Cardiology Results From [employer] - 12/09/2020 2:46 PM EST TRANSTHORACIC ECHOCARDIOGRAM PATIENT: Joseph Brown STUDY DATE: 12/09/2020 : 1955 AGE: 65 HT/WT: 182.9 cm (72 94.3 kg in) (207.6 lb) GENDER: M BP: 131 / 67 LOCATION: [facility] PATIENT Outpatient [facility] STATUS: *ORDERING PHYSICIAN: * Eve Garcia *READING PHYSICIAN: * Ck Estrada MD *TOP DYEING MACHINE LOADER: * Heather CASH -------- INDICATIONS: LV FX. -------- HISTORY: PMH: COVID 10-19-2020. Risk factors: Hypertension. Transthoracic echocardiography (2017). -------- CONCLUSIONS SUMMARY: 1. Left ventricle: The cavity size is normal. Wall thickness is mildly increased. Systolic function is normal by visual assessment. The estimated ejection fraction is 60%. 2. Pericardium, extracardiac: A trivial-small pericardial effusion is present. There is no echocardiographic evidence for pericardial tamponade. 3. Technically difficult study. 4. No significant valve disease. -------- STUDY DATA: Complete transthoracic echocardiogram. Procedure: Image quality was suboptimal. The study was technically limited due to poor acoustic window availability, body habitus, and respiratory interference. Intravenous imaging enhancement (Definity) was administered. Definity lot #: [id number]. M-mode, complete 2D, complete spectral Doppler, and color flow Doppler images were acquired and archived for permanent storage and are available for subsequent review. Study status: Routine. Patient status: Outpatient. -------- FINDINGS LEFT VENTRICLE: The cavity size is normal. Wall thickness is mildly increased. Systolic function is normal by visual assessment. The estimated ejection fraction is 60%. There are no regional wall motion abnormalities. Doppler parameters are consistent with abnormal left ventricular relaxation (grade 1 diastolic dysfunction). RIGHT VENTRICLE: Poorly visualized. The cavity size is normal. Systolic function is normal. VENTRICULAR SEPTUM: The septum is normal. LEFT ATRIUM: The atrium is normal in size. RIGHT ATRIUM: Poorly visualized. The atrium is normal in size. MITRAL VALVE: Normal (thickness) leaflets. Doppler: There is no significant regurgitation. The peak diastolic gradient is 2 mm Hg. AORTIC VALVE: Structurally normal valve. Probably trileaflet. Doppler: There is no significant regurgitation. The peak systolic gradient is 4 mm Hg. The peak systolic velocity is 0.9 m/sec. TRICUSPID VALVE: Structurally normal valve. Doppler: There is no significant regurgitation. PULMONIC VALVE: Structurally normal valve. Doppler: There is trivial, less than 1+ regurgitation. AORTA: Aortic root: The aortic root is normal. Ascending aorta: The ascending aorta is mildly dilated. PERICARDIUM: A trivial-small pericardial effusion is present. Doppler: There is no echocardiographic evidence for pericardial tamponade. SYSTEMIC VEINS: Inferior vena cava: Not visualized. -------- Measurements Value 08/07/2017 Reference Ascending aorta ID, A-P, S 3.6 cm --------- Ascending aorta ID/bsa, A-P, 1.7 cm/m^2 --------- S Left ventricle Value 08/07/2017 Reference LV ID, ED (L) 4.0 cm 4.9 4.2 - 5.8 LV ID, ES 2.6 cm 3.8 2.5 - 4.0 LV ID/bsa, ED (L) 1.8 cm/m^2 2.2 - 3.0 LV ID/bsa, ES (L) 1.2 cm/m^2 1.3 - 2.1 LV PW thickness, ED (H) 1.3 cm 1.3 0.6 - 1.0 LV PW/LV ID ratio, ED 0.32 --------- LV wall mass (H) 211 g 96 - 200 LV wall mass/bsa 97 g/m^2 50 - 102 Stroke volume/bsa, 1-p A2C 26.9 ml/m^2 --------- LV end-diastolic volume, 1-p 137 ml 69 - 185 A4C LV end-systolic volume, 1-p 57 ml 22 - 78 A4C LV end-diastolic volume, 2-p 121 ml 62 - 150 LV end-systolic volume, 2-p 51 ml 21 - 61 LV E/e', lateral 10.1 12.8 --------- LV E/e', medial 8.7 14.1 --------- LV E/e', average 10.2 13.5 --------- Ventricular septum Value 08/07/2017 Reference IVS thickness, ED (H) 1.5 cm 1.4 0.6 - 1.0 LVOT Value 08/07/2017 Reference LVOT ID, A-P 2.5 cm 2.0 --------- LVOT mean velocity, S 0.6 m/sec --------- LVOT peak gradient, S 3 mm Hg --------- Stroke volume (SV), LVOT DP 78 ml --------- Stroke index (SV/bsa), LVOT 36 ml/m^2 --------- DP Aortic valve Value 08/07/2017 Reference Aortic valve peak velocity, 0.9 m/sec 1 --------- S Aortic peak gradient, S 4 mm Hg 4 --------- Left atrium Value 08/07/2017 Reference LA volume/bsa, ES, 2-p 29 ml/m^2 29 16 - 34 Mitral valve Value 08/07/2017 Reference Mitral E-wave peak velocity 0.8 m/sec 1.1 --------- Mitral A-wave peak velocity 1 m/sec 0.9 --------- Mitral peak gradient, D 2 mm Hg 5 --------- Mitral E/A ratio, peak 0.7 1.3 --------- Systemic veins Value 08/07/2017 Reference Estimated RAP 8 mm Hg 8 --------- Legend: (L) and (H) cosmo values outside specified reference range. Electronically signed by Ck Estrada MD 12/09/2020 14:45 Prior Signatures: [employer] Phone: Echo Complete w/wo Contrasto n 12-09-2020 Echo Complete w/wo Contrast Patient Name: JOSEPH BROWN Ultrasound ACCESSION EXAM DATE/TIME PROCEDURE ORDERING PROVIDER [id number] 12/09/2020 14:06 EST Echo Complete w/wo AMARILIS GARCIA LORI P. Contrast Reason For Exam (Echo Complete w/wo Contrast) LV function Report TRANSTHORACIC ECHOCARDIOGRAM PATIENT: Joseph Brown STUDY DATE: 12/09/2020 : 1955 AGE: 65 HT/WT: 182.9 cm (72 94.3 kg in) (207.6 lb) GENDER: M BP: 131 / 67 LOCATION: [facility] PATIENT Outpatient [facility] STATUS: *ORDERING PHYSICIAN: * Eve Garcia *READING PHYSICIAN: * Ck Estrada MD *TOP DYEING MACHINE LOADER: * Heather CASH -------- INDICATIONS: LV FX. -------- HISTORY: PMH: COVID 10-19-2020. Risk factors: Hypertension. Transthoracic echocardiography (2017). -------- CONCLUSIONS SUMMARY: 1. Left ventricle: The cavity size is normal. Wall thickness is mildly increased. Systolic function is normal by visual assessment. The estimated ejection fraction is 60%. 2. Pericardium, extracardiac: A trivial-small pericardial effusion is present. There is no echocardiographic evidence for pericardial tamponade. 3. Technically difficult study. 4. No significant valve disease. -------- STUDY DATA: Complete transthoracic echocardiogram. Procedure: Image quality was suboptimal. The study was technically limited due to poor acoustic window availability, body habitus, and respiratory interference. Intravenous imaging enhancement (Definity) was administered. Definity lot #: [id number]. M-mode, complete 2D, complete spectral Doppler, and color flow Doppler images were acquired and archived for permanent storage and are available for subsequent review. Study status: Routine. Patient status: Outpatient. -------- FINDINGS Ultrasound Report LEFT VENTRICLE: The cavity size is normal. Wall thickness is mildly increased. Systolic function is normal by visual assessment. The estimated ejection fraction is 60%. There are no regional wall motion abnormalities. Doppler parameters are consistent with abnormal left ventricular relaxation (grade 1 diastolic dysfunction). RIGHT VENTRICLE: Poorly visualized. The cavity size is normal. Systolic function is normal. VENTRICULAR SEPTUM: The septum is normal. LEFT ATRIUM: The atrium is normal in size. RIGHT ATRIUM: Poorly visualized. The atrium is normal in size. MITRAL VALVE: Normal (thickness) leaflets. Doppler: There is no significant regurgitation. The peak diastolic gradient is 2 mm Hg. AORTIC VALVE: Structurally normal valve. Probably trileaflet. Doppler: There is no significant regurgitation. The peak systolic gradient is 4 mm Hg. The peak systolic velocity is 0.9 m/sec. TRICUSPID VALVE: Structurally normal valve. Doppler: There is no significant regurgitation. PULMONIC VALVE: Structurally normal valve. Doppler: There is trivial, less than 1+ regurgitation. AORTA: Aortic root: The aortic root is normal. Ascending aorta: The ascending aorta is mildly dilated. PERICARDIUM: A trivial-small pericardial effusion is present. Doppler: There is no echocardiographic evidence for pericardial tamponade. SYSTEMIC VEINS: Inferior vena cava: Not visualized. -------- Measurements Value 08/07/2017 Reference Ascending aorta ID, A-P, S 3.6 cm --------- Ascending aorta ID/bsa, A-P, 1.7 cm/m^2 --------- S Left ventricle Value 08/07/2017 Reference LV ID, ED (L) 4.0 cm 4.9 4.2 - 5.8 LV ID, ES 2.6 cm 3.8 2.5 - 4.0 LV ID/bsa, ED (L) 1.8 cm/m^2 2.2 - 3.0 LV ID/bsa, ES (L) 1.2 cm/m^2 1.3 - 2.1 LV PW thickness, ED (H) 1.3 cm 1.3 0.6 - 1.0 LV PW/LV ID ratio, ED 0.32 --------- LV wall mass (H) 211 g 96 - 200 LV wall mass/bsa 97 g/m^2 50 - 102 Stroke volume/bsa, 1-p A2C 26.9 ml/m^2 --------- LV end-diastolic volume, 1-p 137 ml 69 - 185 A4C LV end-systolic volume, 1-p 57 ml 22 - 78 A4C LV end-diastolic volume, 2-p 121 ml 62 - 150 LV end-systolic volume, 2-p 51 ml 21 - 61 LV E/e', lateral 10.1 12.8 --------- LV E/e', medial 8.7 14.1 --------- LV E/e', average 10.2 13.5 --------- Ventricular septum Value 08/07/2017 Reference IVS thickness, ED (H) 1.5 cm 1.4 0.6 - 1.0 LVOT Value 08/07/2017 Reference LVOT ID, A-P 2.5 cm 2.0 --------- LVOT mean velocity, S 0.6 m/sec --------- LVOT peak gradient, S 3 mm Hg --------- Ultrasound Report Stroke volum (more content not included)... Normal [employer] XR CHEST (2 VW)on 12-09-2020 Patient Name: JOSEPH BROWN Diagnostic Radiology ACCESSION EXAM DATE/TIME PROCEDURE ORDERING PROVIDER [id number] 12/09/2020 12:30 EST CR Chest PA & LAT FRANCOIS, ARIROOR CPT code 73526 Reason For Exam (CR Chest PA & LAT) sob Report Clinical History: sob Comparison: 10/31/2020 Technique: PA and lateral radiographs were obtained of the chest. Findings: Again seen are bilateral interstitial opacities. The overall extent is slightly decreased compared to 10/31/2020. No pleural effusions are seen. The trachea is midline. No pneumothorax. The heart size and mediastinal contours are normal. Pulmonary vascularity is normal. The osseous structures are unremarkable. Impression: Bilateral interstitial opacities with mild improvement compared to 10/31/2020. Report Dictated on --- Final --- Dictating Physician: MD ALSTON YUN ROBERT Signed Date and Time: 12/09/2020 1:59 pm Signed by: MD ALSTON YUN ROBERT Transcribed Date and Time: 12/09/2020 2:00 [employer] Work Phone: [facility] Incoming Radiology Results From [facility] - 12/09/2020 2:00 PM EST Patient Name: JOSEPH BROWN [facility]#: [id number] Diagnostic Radiology ACCESSION EXAM DATE/TIME PROCEDURE ORDERING PROVIDER [id number] 12/09/2020 12:30 EST CR Chest PA & LAT ESVIN FRANCOISOR CPT code 38045 Reason For Exam (CR Chest PA & LAT) sob Report Clinical History: sob Comparison: 10/31/2020 Technique: PA and lateral radiographs were obtained of the chest. Findings: Again seen are bilateral interstitial opacities. The overall extent is slightly decreased compared to 10/31/2020. No pleural effusions are seen. The trachea is midline. No pneumothorax. The heart size and mediastinal contours are normal. Pulmonary vascularity is normal. The osseous structures are unremarkable. Impression: Bilateral interstitial opacities with mild improvement compared to 10/31/2020. Report Dictated on --- Final --- Dictating Physician: MD ALSTON YUN ROBERT Signed Date and Time: 12/09/2020 1:59 pm Signed by: MD ALSTON YUN ROBERT Transcribed Date and Time: 12/09/2020 2:00 [employer] Work Phone: Basic Metabolic Panelon 10-17 Anion gap [Moles/Vol] 6 mmol/L [place] Calcium [Mass/Vol] 8.7 mg/dL 8.4 - 10. 4 mg/dL [place] Chloride [Moles/Vol] 110 mmol/L High 98 - 10 7 mmol/L [place] CO2 [Moles/Vol] 24 mmol/L 22 - 30 mmol/L [place] Creatinine [Mass/Vol] 0.64 mg/dL 0.52 - 1.25 mg/dL [place] EGFR IF NonAfrican [place] >90.0 >60 mL/min [place] Comment on above: KDIGO guidelines pro vide the following GFR categories: Stage GFR(ml/min/1.73 m2) Terms G1 >=90 Normal or high G2 60-89 Mildly decreased* G3a 45-59 Mildly to moderately decreased G3b 30-44 Moderately to severely decreased G4 15-29 Severely decreased G5 <15 Kidney failure *Relative to young adult level. In the absence of evidence of kidney damage, neither GFR category G1 nor G2 fulfill the criteria for CKD. The CKD-EPI equation is validated in individuals 18 years of age and older. Currently the best equation for estimating glomerular filtration rate (GFR) from serum creatinine in children is the Bedside Vasquez equation. It is less accurate in patients with extremes of muscle mass, restriction of dietary protein, ingestion of creatine, extra-renal metabolism of creatinine, or treatment with medications that affect renal tubular creatinine secretion. GFR/1.73 sq M predicted among blacks MDRD (S/P/Bld) [Vol rate/Area] mL/min/{1.73_m2} >60 mL/min [place] Glucose [Mass/Vol] 119 mg/dL High 70 - 100 mg/dL [place] Potassium [Moles/Vol] 3.8 mmol/L 3.5 - 5.1 mmol/L [place] Sodium [Moles/Vol] 140 mmol/L 135 - 145 mmol/L [place] Urea nitrogen [Mass/Vol] 32 mg/dL High 7 - 20 mg/dL [place] CBCon 11-04-2020 Erythrocyte distribution width (RBC) [Ratio] 14.7 % High 11.5 - 14.5 % [place] Hematocrit (Bld) [Volume fraction] 30.8 % Low 40 - 52 % [place] Hemoglobin (Bld) [Mass/Vol] 10.0 g/dL Low 13 - 18 g/dL [place] Interpretation and review of laboratory results Abnormal [place] MCH (RBC) [Entitic mass] 30.0 pg 26 - 34 pg [place] MCHC (RBC) [Mass/Vol] 32.4 % 32 - 36 % [place] MCV (RBC) [Entitic vol] 92.4 fL 80 - 98 fL [place] Platelet mean volume (Bld) [Entitic vol] 8.0 fL 7.4 - 10.4 fL [place] Platelets (Bld) [#/Vol] 439 10*3/uL 140 - 440 10*3/uL [place] RBC (Bld) [#/Vol] 3.33 10*6/uL Low 4.4 - 5.9 10*6/uL [place] WBC (Bld) [#/Vol] 11.6 10*3/uL High 3.6 - 10.7 10*3/uL [place] Test Performed by [facility], [address] [place], [place] [id number] [place] [address] Calcium, Ionizedon Interpretation and review of laboratory results Abnormal [place] Ionized Ca 4.10 mg/dL Low 4.3 - 5.2 mg/dL [place] pH (Bld) 7.48 [pH] High [place] Test Performed by [facility], [address] [place], [place] [address] [place] D-Dimer, Quantitativeon 10-17 D-Dimer, Quant 8.16 mg/L High 0 - 0.5 mg/L [place], [place] Comment on above: [employer] D-Dimer va lues of <0.50 mg/L FEU can be used in combination with a pre-test probability model (e.g. Well's) to exclude pulmonary embolism (PE) disease, as well as an aid in the diagnosis of deep vein thrombosis (DVT). Interpretation and review of laboratory results Abnormal [place] Test Performed by [facility], [address], [address] Ferritinon 11-04-2020 Ferritin [Mass/Vol] 867 ng/mL High 18 - 464 ng/mL [place] Interpretation and review of laboratory results Abnormal [place] Test Performed by [facility] [employer] [facility], [address], [address] Hepatic Function Panelon Albumin [Mass/Vol] 3.2 g/dL Low 3.5 - 5 g/dL [place] ALP [Catalytic activity/Vol] 73 U/L 38 - 126 U/L [place] ALT [Catalytic activity/Vol] 200 U/L High 0 - 49 U/L [place] Comment on above: The ALT test is perf ormed by an updated assay method. Please note that the reference intervals have been changed and are now sex specific. AST [Catalytic activity/Vol] 55 U/L High 15 - 46 U/L [place] Bilirubin Ql (U) 0.7 mg/dL 0.2 - 1.3 mg/dL [place] Bilirubin.direct [Mass/Vol] 0.0 mg/dL 0 - 0.3 mg/dL [place] Protein [Mass/Vol] 6.5 g/dL 6.3 - 8.2 g/dL [place] Magnesiumon 11-04-2020 Magnesium [Mass/Vol] 2.3 mg/dL 1.6 - 2 .3 mg/dL [place] Otheron 11-04-2020 Interpretation and review of laboratory results Abnormal [place] Test Performed by [facility], [address], [address] [place] Phosphoruson 11-04-2020 Phosphate [Mass/Vol] 4.3 mg/dL 2.5 - 4 .5 mg/dL [place] Basic Metabolic Panelon 10-16 Anion gap [Moles/Vol] 4 mmol/L [place] Calcium [Mass/Vol] 8.8 mg/dL 8.4 - 10. 4 mg/dL [place] Chloride [Moles/Vol] 113 mmol/L High 98 - 10 7 mmol/L [place] CO2 [Moles/Vol] 26 mmol/L 22 - 30 mmol/L [place] Creatinine [Mass/Vol] 0.62 mg/dL 0.52 - 1.25 mg/dL [place] EGFR IF NonAfrican [place] >90.0 >60 mL/min [place] Comment on above: KDIGO guidelines pro vide the following GFR categories: Stage GFR(ml/min/1.73 m2) Terms G1 >=90 Normal or high G2 60-89 Mildly decreased* G3a 45-59 Mildly to moderately decreased G3b 30-44 Moderately to severely decreased G4 15-29 Severely decreased G5 <15 Kidney failure *Relative to young adult level. In the absence of evidence of kidney damage, neither GFR category G1 nor G2 fulfill the criteria for CKD. The CKD-EPI equation is validated in individuals 18 years of age and older. Currently the best equation for estimating glomerular filtration rate (GFR) from serum creatinine in children is the Bedside Vasquez equation. It is less accurate in patients with extremes of muscle mass, restriction of dietary protein, ingestion of creatine, extra-renal metabolism of creatinine, or treatment with medications that affect renal tubular creatinine secretion. GFR/1.73 sq M predicted among blacks MDRD (S/P/Bld) [Vol rate/Area] mL/min/{1.73_m2} >60 mL/min [place] Glucose [Mass/Vol] 139 mg/dL High 70 - 100 mg/dL [place] Potassium [Moles/Vol] 3.8 mmol/L 3.5 - 5.1 mmol/L [place] Sodium [Moles/Vol] 143 mmol/L 135 - 145 mmol/L [place] Urea nitrogen [Mass/Vol] 42 mg/dL High 7 - 20 mg/dL [place] CBCon 11-03-2020 Erythrocyte distribution width (RBC) [Ratio] 14.6 % High 11.5 - 14.5 % [place] Hematocrit (Bld) [Volume fraction] 33.8 % Low 40 - 52 % [place] Hemoglobin (Bld) [Mass/Vol] 11.0 g/dL Low 13 - 18 g/dL [place] Interpretation and review of laboratory results Abnormal [place] MCH (RBC) [Entitic mass] 30.1 pg 26 - 34 pg [place] MCHC (RBC) [Mass/Vol] 32.4 % 32 - 36 % [place] MCV (RBC) [Entitic vol] 92.8 fL 80 - 98 fL [place] Platelet mean volume (Bld) [Entitic vol] 8.2 fL 7.4 - 10.4 fL [place] Platelets (Bld) [#/Vol] 305 10*3/uL 140 - 440 10*3/uL [place] RBC (Bld) [#/Vol] 3.64 10*6/uL Low 4.4 - 5.9 10*6/uL [place] WBC (Bld) [#/Vol] 9.5 10*3/uL 3.6 - 10.7 10*3/uL [place] Test Performed by [facility], [address] [place], [place] [id number] [place] [address] Calcium, Ionizedon Interpretation and review of laboratory results Abnormal [place] Ionized Ca 4.50 mg/dL 4.3 - 5.2 mg/dL [place] pH (Bld) 7.51 [pH] High [place] Test Performed by [facility], [address] [place], [place] [address] [place] Magnesiumon 11-03-2020 Magnesium [Mass/Vol] 2.5 mg/dL High 1.6 - 2 .3 mg/dL [place] Otheron 11-03-2020 Interpretation and review of laboratory results Abnormal [place] Test Performed by [facility], [address], [place], [place] [address] [place] Phosphoruson 11-03-2020 Phosphate [Mass/Vol] 3.9 mg/dL 2.5 - 4 .5 mg/dL [place] C-Reactive Proteinon 021 CRP [Mass/Vol] 43.8 mg/L High 0 - 6 mg/L [place] Comment on above: . CBC Auto Differentialon 10-16 Absolute Baso # 0.0 10*3/uL 0 - 0.2 10*3/uL [place] Absolute Neut # 6.9 10*3/uL 1.8 - 7 10*3/uL [place] Basophils/100 WBC (Bld) 0.5 % 0 - 2 % [place] Eosinophils (Bld) [#/Vol] 0.0 10*3/uL 0 - 0.5 10*3/uL [place] Eosinophils/100 WBC (Bld) 0.0 % Low 1 - 6 % [place] Erythrocyte distribution width (RBC) [Ratio] 14.5 % 11.5 - 14.5 % [place] Granulocytes/100 WBC (Bld) 84.0 % High 40 - 80 % [place] Hematocrit (Bld) [Volume fraction] 30.8 % Low 40 - 52 % [place] Hemoglobin (Bld) [Mass/Vol] 10.3 g/dL Low 13 - 18 g/dL [place] Interpretation and review of laboratory results Abnormal [place] Lymphocytes (Bld) [#/Vol] 0.7 10*3/uL Low 1 - 4.3 10*3/uL [place] Lymphocytes/100 WBC (Bld) 8.3 % Low 20 - 40 % [place] MCH (RBC) [Entitic mass] 30.4 pg 26 - 34 pg [place] MCHC (RBC) [Mass/Vol] 33.5 % 32 - 36 % [place] MCV (RBC) [Entitic vol] 90.8 fL 80 - 98 fL [place] Monocytes (Bld) [#/Vol] 0.6 10*3/uL 0 - 0.8 10*3/uL [place] Monocytes/100 WBC (Bld) 7.2 % 2 - 10 % [place] Platelet mean volume (Bld) [Entitic vol] 8.1 fL 7.4 - 10.4 fL [place], [place] Platelets (Bld) [#/Vol] 352 10*3/uL 140 - 440 10*3/uL [place] RBC (Bld) [#/Vol] 3.39 10*6/uL Low 4.4 - 5.9 10*6/uL [place] WBC (Bld) [#/Vol] 8.2 10*3/uL 3.6 - 10.7 10*3/uL [place] Test Performed by [facility], [address] [place], [place] [address] [place] Calcium, Ionizedon 1 Ionized Ca 4.70 mg/dL 4.3 - 5.2 mg/dL [place] pH (Bld) 7.45 [pH] [place] Test Performed by [facility], [address] [place], [place] [address] [place] Comprehensive Metabolic Pane l w/ Reflex to MGon 11-02-2020 Albumin [Mass/Vol] 2.8 g/dL Low 3.5 - 5 g/dL [place] ALP [Catalytic activity/Vol] 71 U/L 38 - 126 U/L [place] ALT [Catalytic activity/Vol] 221 U/L High 0 - 49 U/L [place] Comment on above: The ALT test is perf ormed by an updated assay method. Please note that the reference intervals have been changed and are now sex specific. Anion gap [Moles/Vol] 4 mmol/L [place] AST [Catalytic activity/Vol] 101 U/L High 15 - 46 U/L [place] Bilirubin Ql (U) 0.7 mg/dL 0.2 - 1.3 mg/dL [place] Calcium [Mass/Vol] 8.4 mg/dL 8.4 - 10. 4 mg/dL [place] Chloride [Moles/Vol] 112 mmol/L High 98 - 10 7 mmol/L [place] CO2 [Moles/Vol] 29 mmol/L 22 - 30 mmol/L [place] Creatinine [Mass/Vol] 0.63 mg/dL 0.52 - 1.25 mg/dL [place] EGFR IF NonAfrican [place] >90.0 >60 mL/min [place] Comment on above: KDIGO guidelines pro vide the following GFR categories: Stage GFR(ml/min/1.73 m2) Terms G1 >=90 Normal or high G2 60-89 Mildly decreased* G3a 45-59 Mildly to moderately decreased G3b 30-44 Moderately to severely decreased G4 15-29 Severely decreased G5 <15 Kidney failure *Relative to young adult level. In the absence of evidence of kidney damage, neither GFR category G1 nor G2 fulfill the criteria for CKD. The CKD-EPI equation is validated in individuals 18 years of age and older. Currently the best equation for estimating glomerular filtration rate (GFR) from serum creatinine in children is the Bedside Vasquez equation. It is less accurate in patients with extremes of muscle mass, restriction of dietary protein, ingestion of creatine, extra-renal metabolism of creatinine, or treatment with medications that affect renal tubular creatinine secretion. GFR/1.73 sq M predicted among blacks MDRD (S/P/Bld) [Vol rate/Area] mL/min/{1.73_m2} >60 mL/min [place] Glucose [Mass/Vol] 138 mg/dL High 70 - 100 mg/dL [place] Potassium [Moles/Vol] 3.8 mmol/L 3.5 - 5.1 mmol/L [place] Protein [Mass/Vol] 6.2 g/dL Low 6.3 - 8.2 g/dL [place] Sodium [Moles/Vol] 145 mmol/L 135 - 145 mmol/L [place] Urea nitrogen [Mass/Vol] 40 mg/dL High 7 - 20 mg/dL [place] D-Dimer, Quantitativeon 10-16 D-Dimer, Quant 4.08 mg/L High 0 - 0.5 mg/L [facility], [place] Comment on above: [employer] D-Dimer va lues of <0.50 mg/L FEU can be used in combination with a pre-test probability model (e.g. Well's) to exclude pulmonary embolism (PE) disease, as well as an aid in the diagnosis of deep vein thrombosis (DVT). Interpretation and review of laboratory results Abnormal [place] Test Performed by [facility], [address] Ferritinon 11-02-2020 Ferritin [Mass/Vol] 1060 ng/mL High 18 - 464 ng/mL [place] Interpretation and review of laboratory results Abnormal [place] Test Performed by [facility], [address] [place], [address] Lactate Dehydrogenaseon 10-16 LD 349 U/L High 120 - 246 U/L [facility], [place] Magnesiumon 11-02-2020 Magnesium [Mass/Vol] 2.5 mg/dL High 1.6 - 2 .3 mg/dL [place] Otheron 11-02-2020 Interpretation and review of laboratory results Abnormal [place] Test Performed by [facility], [address] Phosphoruson 11-02-2020 Interpretation and review of laboratory results Abnormal [place] Phosphate [Mass/Vol] 4.6 mg/dL High 2.5 - 4 .5 mg/dL [facility], [place] Test Performed by [facility], [address] C-Reactive Proteinon 021 CRP [Mass/Vol] 73.8 mg/L High 0 - 6 mg/L [place] Comment on above: . CBC Auto Differentialon 10-16 Absolute Baso # 0.1 10*3/uL 0 - 0.2 10*3/uL [place] Absolute Neut # 6.9 10*3/uL 1.8 - 7 10*3/uL [place] Basophils/100 WBC (Bld) 0.7 % 0 - 2 % [place] Eosinophils (Bld) [#/Vol] 0.1 10*3/uL 0 - 0.5 10*3/uL [place] Eosinophils/100 WBC (Bld) 1.0 % 1 - 6 % [place] Erythrocyte distribution width (RBC) [Ratio] 14.5 % 11.5 - 14.5 % [place] Granulocytes/100 WBC (Bld) 80.4 % High 40 - 80 % [place] Hematocrit (Bld) [Volume fraction] 31.0 % Low 40 - 52 % [place] Hemoglobin (Bld) [Mass/Vol] 10.4 g/dL Low 13 - 18 g/dL [place] Interpretation and review of laboratory results Abnormal [place] Lymphocytes (Bld) [#/Vol] 0.7 10*3/uL Low 1 - 4.3 10*3/uL [place] Lymphocytes/100 WBC (Bld) 7.8 % Low 20 - 40 % [place] MCH (RBC) [Entitic mass] 30.6 pg 26 - 34 pg [place] MCHC (RBC) [Mass/Vol] 33.4 % 32 - 36 % [place] MCV (RBC) [Entitic vol] 91.5 fL 80 - 98 fL [place] Monocytes (Bld) [#/Vol] 0.9 10*3/uL High 0 - 0.8 10*3/uL [place] Monocytes/100 WBC (Bld) 10.1 % High 2 - 10 % [place] Platelet mean volume (Bld) [Entitic vol] 8.1 fL 7.4 - 10.4 fL [place], [place] Platelets (Bld) [#/Vol] 321 10*3/uL 140 - 440 10*3/uL [place] RBC (Bld) [#/Vol] 3.39 10*6/uL Low 4.4 - 5.9 10*6/uL [place] WBC (Bld) [#/Vol] 8.5 10*3/uL 3.6 - 10.7 10*3/uL [place] Test Performed by [facility], [address], [place], [place] [address] [place] Calcium, Ionizedon Ionized Ca 4.50 mg/dL 4.3 - 5.2 mg/dL [place] pH (Bld) 7.45 [pH] [place] Test Performed by [facility], [address] [place], [place], [place] [address] [place] Comprehensive Metabolic Pane l w/ Reflex to MGon 11-01-2020 Albumin [Mass/Vol] 2.8 g/dL Low 3.5 - 5 g/dL [place] ALP [Catalytic activity/Vol] 75 U/L 38 - 126 U/L [place] ALT [Catalytic activity/Vol] 172 U/L High 0 - 49 U/L [place] Comment on above: The ALT test is perf ormed by an updated assay method. Please note that the reference intervals have been changed and are now sex specific. Anion gap [Moles/Vol] 3 mmol/L [place] AST [Catalytic activity/Vol] 111 U/L High 15 - 46 U/L [place] Bilirubin Ql (U) 0.7 mg/dL 0.2 - 1.3 mg/dL [place] Calcium [Mass/Vol] 8.3 mg/dL Low 8.4 - 10. 4 mg/dL [place] Chloride [Moles/Vol] 107 mmol/L 98 - 10 7 mmol/L [place] CO2 [Moles/Vol] 30 mmol/L 22 - 30 mmol/L [place] Creatinine [Mass/Vol] 0.65 mg/dL 0.52 - 1.25 mg/dL [place] EGFR IF NonAfrican [place] >90.0 >60 mL/min [place] Comment on above: KDIGO guidelines pro vide the following GFR categories: Stage GFR(ml/min/1.73 m2) Terms G1 >=90 Normal or high G2 60-89 Mildly decreased* G3a 45-59 Mildly to moderately decreased G3b 30-44 Moderately to severely decreased G4 15-29 Severely decreased G5 <15 Kidney failure *Relative to young adult level. In the absence of evidence of kidney damage, neither GFR category G1 nor G2 fulfill the criteria for CKD. The CKD-EPI equation is validated in individuals 18 years of age and older. Currently the best equation for estimating glomerular filtration rate (GFR) from serum creatinine in children is the Bedside Vasquez equation. It is less accurate in patients with extremes of muscle mass, restriction of dietary protein, ingestion of creatine, extra-renal metabolism of creatinine, or treatment with medications that affect renal tubular creatinine secretion. GFR/1.73 sq M predicted among blacks MDRD (S/P/Bld) [Vol rate/Area] mL/min/{1.73_m2} >60 mL/min [place] Glucose [Mass/Vol] 130 mg/dL High 70 - 100 mg/dL [place] Potassium [Moles/Vol] 3.9 mmol/L 3.5 - 5.1 mmol/L [place] Protein [Mass/Vol] 6.2 g/dL Low 6.3 - 8.2 g/dL [place] Sodium [Moles/Vol] 140 mmol/L 135 - 145 mmol/L [place] Urea nitrogen [Mass/Vol] 36 mg/dL High 7 - 20 mg/dL [place] D-Dimer, Quantitativeon 10-16 D-Dimer, Quant 4.04 mg/L High 0 - 0.5 mg/L [place], [place] Comment on above: [employer] D-Dimer va lues of <0.50 mg/L FEU can be used in combination with a pre-test probability model (e.g. Well's) to exclude pulmonary embolism (PE) disease, as well as an aid in the diagnosis of deep vein thrombosis (DVT). Interpretation and review of laboratory results Abnormal [facility] [employer] [place], [place] Test Performed by [facility], [address], [place]- [place], TI[place] Ferritinon 11-01-2020 Ferritin [Mass/Vol] 1040 ng/mL High 18 - 464 ng/mL [facility], [place] Interpretation and review of laboratory results Abnormal [facility], [place] Test Performed by [facility], [address], [place] [place], [place] Lactate Dehydrogenaseon 10-16 LD 363 U/L High 120 - 246 U/L [facility] [place], [place] Magnesiumon 11-01-2020 Magnesium [Mass/Vol] 2.4 mg/dL High 1.6 - 2 .3 mg/dL [facility] [place], [place] Otheron 11-01-2020 Interpretation and review of laboratory results Abnormal [facility] [place] Test Performed by [facility], [address], [address], [place] Phosphoruson 11-01-2020 Phosphate [Mass/Vol] 4.1 mg/dL 2.5 - 4 .5 mg/dL [facility], [place] Test Performed by [facility], [address], [address], [place] C-Reactive Proteinon 021 CRP [Mass/Vol] 123.9 mg/L High 0 - 6 mg/L [place] Comment on above: . Interpretation and review of laboratory results Abnormal [facility] [employer] [place], [place] Test Performed by [facility], [address], [address], [place] CBC Auto Differentialon 10-16 Absolute Baso # 0.0 10*3/uL 0 - 0.2 10*3/uL [facility], [place] Absolute Neut # 7.7 10*3/uL High 1.8 - 7 10*3/uL [facility], [place] Basophils/100 WBC (Bld) 0.3 % 0 - 2 % [facility], [place] Eosinophils (Bld) [#/Vol] 0.2 10*3/uL 0 - 0.5 10*3/uL [place] Eosinophils/100 WBC (Bld) 2.2 % 1 - 6 % [place] Erythrocyte distribution width (RBC) [Ratio] 14.4 % 11.5 - 14.5 % [place] Granulocytes/100 WBC (Bld) 79.4 % 40 - 80 % [place] Hematocrit (Bld) [Volume fraction] 31.1 % Low 40 - 52 % [place] Hemoglobin (Bld) [Mass/Vol] 10.2 g/dL Low 13 - 18 g/dL [place] Interpretation and review of laboratory results Abnormal [place] Lymphocytes (Bld) [#/Vol] 0.8 10*3/uL Low 1 - 4.3 10*3/uL [place] Lymphocytes/100 WBC (Bld) 8.4 % Low 20 - 40 % [place] MCH (RBC) [Entitic mass] 29.9 pg 26 - 34 pg [place] MCHC (RBC) [Mass/Vol] 32.8 % 32 - 36 % [place] MCV (RBC) [Entitic vol] 91.2 fL 80 - 98 fL [place] Monocytes (Bld) [#/Vol] 0.9 10*3/uL High 0 - 0.8 10*3/uL [place] Monocytes/100 WBC (Bld) 9.7 % 2 - 10 % [place] Platelet mean volume (Bld) [Entitic vol] 8.2 fL 7.4 - 10.4 fL [place], [place] Platelets (Bld) [#/Vol] 316 10*3/uL 140 - 440 10*3/uL [place] RBC (Bld) [#/Vol] 3.41 10*6/uL Low 4.4 - 5.9 10*6/uL [place] WBC (Bld) [#/Vol] 9.7 10*3/uL 3.6 - 10.7 10*3/uL [place] Calcium, Ionizedon Ionized Ca 4.50 mg/dL 4.3 - 5.2 mg/dL [place] pH (Bld) 7.42 [pH] [place] Comprehensive Metabolic Pane l w/ Reflex to MGon 10-31-2020 Albumin [Mass/Vol] 2.7 g/dL Low 3.5 - 5 g/dL [place] ALP [Catalytic activity/Vol] 70 U/L 38 - 126 U/L [place] ALT [Catalytic activity/Vol] 117 U/L High 0 - 49 U/L [place] Comment on above: The ALT test is perf ormed by an updated assay method. Please note that the reference intervals have been changed and are now sex specific. Anion gap [Moles/Vol] 3 mmol/L [place] AST [Catalytic activity/Vol] 86 U/L High 15 - 46 U/L [place] Bilirubin Ql (U) 0.7 mg/dL 0.2 - 1.3 mg/dL [place] Calcium [Mass/Vol] 8.2 mg/dL Low 8.4 - 10. 4 mg/dL [place] Chloride [Moles/Vol] 106 mmol/L 98 - 10 7 mmol/L [place] CO2 [Moles/Vol] 31 mmol/L High 22 - 30 mmol/L [place] Creatinine [Mass/Vol] 0.69 mg/dL 0.52 - 1.25 mg/dL [place] EGFR IF NonAfrican [place] >90.0 >60 mL/min [place] Comment on above: KDIGO guidelines pro vide the following GFR categories: Stage GFR(ml/min/1.73 m2) Terms G1 >=90 Normal or high G2 60-89 Mildly decreased* G3a 45-59 Mildly to moderately decreased G3b 30-44 Moderately to severely decreased G4 15-29 Severely decreased G5 <15 Kidney failure *Relative to young adult level. In the absence of evidence of kidney damage, neither GFR category G1 nor G2 fulfill the criteria for CKD. The CKD-EPI equation is validated in individuals 18 years of age and older. Currently the best equation for estimating glomerular filtration rate (GFR) from serum creatinine in children is the Bedside Vasquez equation. It is less accurate in patients with extremes of muscle mass, restriction of dietary protein, ingestion of creatine, extra-renal metabolism of creatinine, or treatment with medications that affect renal tubular creatinine secretion. GFR/1.73 sq M predicted among blacks MDRD (S/P/Bld) [Vol rate/Area] mL/min/{1.73_m2} >60 mL/min [place] Glucose [Mass/Vol] 135 mg/dL High 70 - 100 mg/dL [facility], [place] Potassium [Moles/Vol] 4.5 mmol/L 3.5 - 5.1 mmol/L [facility], [place] Protein [Mass/Vol] 6.1 g/dL Low 6.3 - 8.2 g/dL [facility], [place] Sodium [Moles/Vol] 140 mmol/L 135 - 145 mmol/L [facility], [place] Urea nitrogen [Mass/Vol] 38 mg/dL High 7 - 20 mg/dL [place] D-Dimer, Quantitativeon 10-16 D-Dimer, Quant 5.26 mg/L High 0 - 0.5 mg/L [place], [place] Comment on above: [employer] D-Dimer va lues of <0.50 mg/L FEU can be used in combination with a pre-test probability model (e.g. Well's) to exclude pulmonary embolism (PE) disease, as well as an aid in the diagnosis of deep vein thrombosis (DVT). Interpretation and review of laboratory results Abnormal [facility] [employer] Test Performed by [facility], [address] [place], [place] [address] [facility] [place] Ferritinon 10-31-2020 Ferritin [Mass/Vol] 957 ng/mL High 18 - 464 ng/mL [place] Interpretation and review of laboratory results Abnormal [facility] [employer] [place], [place] Test Performed by [facility] [employer], [address] [place], [place], [place] [address] [facility], [place] Lactate Dehydrogenaseon 10-16 LD 310 U/L High 120 - 246 U/L [facility], [place] Magnesiumon 10-31-2020 Magnesium [Mass/Vol] 2.5 mg/dL High 1.6 - 2 .3 mg/dL [facility], [place] Otheron 10-31-2020 Interpretation and review of laboratory results Abnormal [facility], [place] Test Performed by [facility], [address], [place], [place] [id number] [place] [address], [place] Test Performed by [facility], [address], [place], [place] [id number] [place] [address], [place] POCT Arterialon 10-31-2020 Base Excess, Arterial 3.4 mmol/L High -3 - 3 mmol/L [facility], [place] HCO3, Arterial 27.4 mmol/L High 21 - 25 mmol/L [facility] [place], [place] Interpretation and review of laboratory results Abnormal [facility], [place] Oxygen saturation in Blood 97.4 % 95 - 100 % [facility], [place] pCO2, Arterial 38.8 mm[Hg] 35 - 45 mm[Hg] [facility], [place] pH, Arterial 7.458 High [facility], [place] pO2, Arterial 89.7 mm[Hg] 80 - 100 mm[Hg] [facility], [place] Sodium [Moles/Vol] 40 mmol/L [facility], [place] Comment on above: Performed by [facility] : [id number] [place], [place] TCO2, Arterial 28.6 mmol/L High 23 - 27 mmol/L [facility], [place] Test Performed by [facility], [address], [place], [place] [id number] [place] [address], [place] Phosphoruson 10-31-2020 Phosphate [Mass/Vol] 3.8 mg/dL 2.5 - 4 .5 mg/dL [facility], [place] Test Performed by [facility], [address], [place], [place] [id number] [place] [address], [place] XR CHEST PORTABLEon 10-31-19 21 Jose Cruz, [facility] Incoming Radiology Results From [facility] - 10/31/2020 10:57 AM EST Patient Name: JOSEPH BROWN Diagnostic Radiology ACCESSION EXAM DATE/TIME PROCEDURE ORDERING PROVIDER [id number] 10/31/2020 10:02 EST CR Chest Portable MD ALFORD JAMES A CPT code 14514 Reason For Exam (CR Chest Portable) pneumonia Report Portable chest 10/31/2020: Clinical Information: Pneumonia. Findings: A single AP portable view of the chest was obtained at 955 hours. Comparison was made to the prior study 07/29/2021. The various lines and tubes are unchanged. There continue to be diffuse bilateral infiltrates unchanged from prior study. Report Dictated on --- Final --- Dictating Physician: MD VALERO RISA Signed Date and Time: 10/31/2020 10:56 am Signed by: MD VALERO RISA Transcribed Date and Time: 10/31/2020 10:57 [place] Patient Name: JOSEPH BROWN Diagnostic Radiology ACCESSION EXAM DATE/TIME PROCEDURE ORDERING PROVIDER [id number] 10/31/2020 10:02 EST CR Chest Portable MD ALFORD JAMES A CPT code 08326 Reason For Exam (CR Chest Portable) pneumonia Report Portable chest 10/31/2020: Clinical Information: Pneumonia. Findings: A single AP portable view of the chest was obtained at 955 hours. Comparison was made to the prior study 07/29/2021. The various lines and tubes are unchanged. There continue to be diffuse bilateral infiltrates unchanged from prior study. Report Dictated on --- Final --- Dictating Physician: MD VALERO RISA Signed Date and Time: 10/31/2020 10:56 am Signed by: MD VALERO RISA Transcribed Date and Time: 10/31/2020 10:57 [place] C-Reactive Proteinon 021 CRP [Mass/Vol] 77.5 mg/L High 0 - 6 mg/L [place] Comment on above: . CBC Auto Differentialon 10-16 Absolute Baso # 0.1 10*3/uL 0 - 0.2 10*3/uL [place] Absolute Neut # 9.7 10*3/uL High 1.8 - 7 10*3/uL [place] Basophils/100 WBC (Bld) 0.5 % 0 - 2 % [place] Eosinophils (Bld) [#/Vol] 0.2 10*3/uL 0 - 0.5 10*3/uL [place] Eosinophils/100 WBC (Bld) 1.5 % 1 - 6 % [place] Erythrocyte distribution width (RBC) [Ratio] 14.5 % 11.5 - 14.5 % [place] Granulocytes/100 WBC (Bld) 82.9 % High 40 - 80 % [place] Hematocrit (Bld) [Volume fraction] 33.2 % Low 40 - 52 % [place] Hemoglobin (Bld) [Mass/Vol] 10.9 g/dL Low 13 - 18 g/dL [place] Interpretation and review of laboratory results Abnormal [place] Lymphocytes (Bld) [#/Vol] 0.8 10*3/uL Low 1 - 4.3 10*3/uL [place] Lymphocytes/100 WBC (Bld) 7.0 % Low 20 - 40 % [place] MCH (RBC) [Entitic mass] 29.9 pg 26 - 34 pg [place] MCHC (RBC) [Mass/Vol] 32.9 % 32 - 36 % [place] MCV (RBC) [Entitic vol] 91.0 fL 80 - 98 fL [place] Monocytes (Bld) [#/Vol] 0.9 10*3/uL High 0 - 0.8 10*3/uL [place] Monocytes/100 WBC (Bld) 8.1 % 2 - 10 % [place] Platelet mean volume (Bld) [Entitic vol] 8.6 fL 7.4 - 10.4 fL [place], [place] Platelets (Bld) [#/Vol] 300 10*3/uL 140 - 440 10*3/uL [place] RBC (Bld) [#/Vol] 3.65 10*6/uL Low 4.4 - 5.9 10*6/uL [place] WBC (Bld) [#/Vol] 11.7 10*3/uL High 3.6 - 10.7 10*3/uL [place] Test Performed by [facility], [address], [place], [place] [address] [place] Calcium, Ionizedon 1 Ionized Ca 4.40 mg/dL 4.3 - 5.2 mg/dL [place] pH (Bld) 7.43 [pH] [place] Test Performed by [facility], [address], [place], [place] [address] [place] Comprehensive Metabolic Pane l w/ Reflex to MGon 10-30-2020 Albumin [Mass/Vol] 2.8 g/dL Low 3.5 - 5 g/dL [place] ALP [Catalytic activity/Vol] 82 U/L 38 - 126 U/L [place] ALT [Catalytic activity/Vol] 73 U/L High 0 - 49 U/L [place] Comment on above: The ALT test is perf ormed by an updated assay method. Please note that the reference intervals have been changed and are now sex specific. Anion gap [Moles/Vol] 3 mmol/L [place] AST [Catalytic activity/Vol] 64 U/L High 15 - 46 U/L [place] Bilirubin Ql (U) 0.8 mg/dL 0.2 - 1.3 mg/dL [place] Calcium [Mass/Vol] 8.3 mg/dL Low 8.4 - 10. 4 mg/dL [place] Chloride [Moles/Vol] 103 mmol/L 98 - 10 7 mmol/L [place] CO2 [Moles/Vol] 32 mmol/L High 22 - 30 mmol/L [place] Creatinine [Mass/Vol] 0.63 mg/dL 0.52 - 1.25 mg/dL [place] EGFR IF NonAfrican [place] >90.0 >60 mL/min [place] Comment on above: KDIGO guidelines pro vide the following GFR categories: Stage GFR(ml/min/1.73 m2) Terms G1 >=90 Normal or high G2 60-89 Mildly decreased* G3a 45-59 Mildly to moderately decreased G3b 30-44 Moderately to severely decreased G4 15-29 Severely decreased G5 <15 Kidney failure *Relative to young adult level. In the absence of evidence of kidney damage, neither GFR category G1 nor G2 fulfill the criteria for CKD. The CKD-EPI equation is validated in individuals 18 years of age and older. Currently the best equation for estimating glomerular filtration rate (GFR) from serum creatinine in children is the Bedside Vasquez equation. It is less accurate in patients with extremes of muscle mass, restriction of dietary protein, ingestion of creatine, extra-renal metabolism of creatinine, or treatment with medications that affect renal tubular creatinine secretion. GFR/1.73 sq M predicted among blacks MDRD (S/P/Bld) [Vol rate/Area] mL/min/{1.73_m2} >60 mL/min [place] Glucose [Mass/Vol] 143 mg/dL High 70 - 100 mg/dL [place] Potassium [Moles/Vol] 4.1 mmol/L 3.5 - 5.1 mmol/L [place] Protein [Mass/Vol] 6.2 g/dL Low 6.3 - 8.2 g/dL [place] Sodium [Moles/Vol] 138 mmol/L 135 - 145 mmol/L [place] Urea nitrogen [Mass/Vol] 32 mg/dL High 7 - 20 mg/dL [place] D-Dimer, Quantitativeon 10-16 D-Dimer, Quant 6.27 mg/L High 0 - 0.5 mg/L [place], [place] Comment on above: [facility] D-Dimer va lues of <0.50 mg/L FEU can be used in combination with a pre-test probability model (e.g. Well's) to exclude pulmonary embolism (PE) disease, as well as an aid in the diagnosis of deep vein thrombosis (DVT). Interpretation and review of laboratory results Abnormal [facility] [place] Test Performed by [employer], [address] [place], [place], [place] [address] [facility] [place] Ferritinon 10-30-2020 Ferritin [Mass/Vol] 835 ng/mL High 18 - 464 ng/mL [place] Interpretation and review of laboratory results Abnormal [place] Test Performed by [facility], [address], [place], [place] [id number] [place] [address] Lactate Dehydrogenaseon 10-16 LD 347 U/L High 120 - 246 U/L [facility], [place] Magnesiumon 10-30-2020 Magnesium [Mass/Vol] 2.2 mg/dL 1.6 - 2 .3 mg/dL [facility], [place] Otheron 10-30-2020 Interpretation and review of laboratory results Abnormal [place] Test Performed by [facility], [address], [place], [place] [id number] [place] [address] POCT Arterialon 10-30-2020 Base Excess, Arterial 3.7 mmol/L High -3 - 3 mmol/L [place] HCO3, Arterial 27.6 mmol/L High 21 - 25 mmol/L [place] Interpretation and review of laboratory results Abnormal [place] Oxygen saturation in Blood 93.9 % Low 95 - 100 % [place] pCO2, Arterial 38.4 mm[Hg] 35 - 45 mm[Hg] [place] pH, Arterial 7.465 [place] pO2, Arterial 65.9 mm[Hg] Low 80 - 100 mm[Hg] [place] Sodium [Moles/Vol] 40 mmol/L [place] Comment on above: Performed by [facility] ID : [id number] [place], [place] TCO2, Arterial 28.8 mmol/L High 23 - 27 mmol/L [place] Test Performed by [facility], [address], [place], [place] [id number] [place] [address] Phosphoruson 10-30-2020 Phosphate [Mass/Vol] 3.4 mg/dL 2.5 - 4 .5 mg/dL [facility], [place] Test Performed by [facility], [address], [place], [place] [address] [place] C-Reactive Proteinon 01-14-2 021 CRP [Mass/Vol] 131.1 mg/L High 0 - 6 mg/L [place] Comment on above: . Interpretation and review of laboratory results Abnormal [place] Test Performed by [facility], [address], [place], [place] [address] [place] CBC Auto Differentialon 10-16 Absolute Baso # 0.0 10*3/uL 0 - 0.2 10*3/uL [place] Absolute Neut # 8.7 10*3/uL High 1.8 - 7 10*3/uL [place] Basophils/100 WBC (Bld) 0.1 % 0 - 2 % [place] Eosinophils (Bld) [#/Vol] 0.2 10*3/uL 0 - 0.5 10*3/uL [place] Eosinophils/100 WBC (Bld) 2.1 % 1 - 6 % [place] Erythrocyte distribution width (RBC) [Ratio] 14.7 % High 11.5 - 14.5 % [place] Granulocytes/100 WBC (Bld) 83.2 % High 40 - 80 % [place] Hematocrit (Bld) [Volume fraction] 32.4 % Low 40 - 52 % [place] Hemoglobin (Bld) [Mass/Vol] 10.7 g/dL Low 13 - 18 g/dL [place] Interpretation and review of laboratory results Abnormal [place] Lymphocytes (Bld) [#/Vol] 0.7 10*3/uL Low 1 - 4.3 10*3/uL [place] Lymphocytes/100 WBC (Bld) 6.7 % Low 20 - 40 % [place] MCH (RBC) [Entitic mass] 30.0 pg 26 - 34 pg [place] MCHC (RBC) [Mass/Vol] 33.1 % 32 - 36 % [place] MCV (RBC) [Entitic vol] 90.6 fL 80 - 98 fL [place] Monocytes (Bld) [#/Vol] 0.8 10*3/uL 0 - 0.8 10*3/uL [place] Monocytes/100 WBC (Bld) 7.9 % 2 - 10 % [place] Platelet mean volume (Bld) [Entitic vol] 8.2 fL 7.4 - 10.4 fL [place] Platelets (Bld) [#/Vol] 278 10*3/uL 140 - 440 10*3/uL [place] RBC (Bld) [#/Vol] 3.57 10*6/uL Low 4.4 - 5.9 10*6/uL [place] WBC (Bld) [#/Vol] 10.4 10*3/uL 3.6 - 10.7 10*3/uL [place] Test Performed by [facility], [address] [place], [place] [address] [place] Calcium, Ionizedon Ionized Ca 4.50 mg/dL 4.3 - 5.2 mg/dL [place] pH (Bld) 7.45 [pH] [place] Test Performed by [facility], [address] [place], [place] [address] [place] Comprehensive Metabolic Pane l w/ Reflex to MGon 10-29-2020 Albumin [Mass/Vol] 2.8 g/dL Low 3.5 - 5 g/dL [place] ALP [Catalytic activity/Vol] 68 U/L 38 - 126 U/L [place] ALT [Catalytic activity/Vol] 49 U/L 0 - 49 U/L [place] Comment on above: The ALT test is perf ormed by an updated assay method. Please note that the reference intervals have been changed and are now sex specific. Anion gap [Moles/Vol] 4 mmol/L [place] AST [Catalytic activity/Vol] 53 U/L High 15 - 46 U/L [place] Bilirubin Ql (U) 0.7 mg/dL 0.2 - 1.3 mg/dL [place] Calcium [Mass/Vol] 8.2 mg/dL Low 8.4 - 10. 4 mg/dL [place] Chloride [Moles/Vol] 107 mmol/L 98 - 10 7 mmol/L [place] CO2 [Moles/Vol] 28 mmol/L 22 - 30 mmol/L [place] Creatinine [Mass/Vol] 0.6 mg/dL 0.52 - 1.25 mg/dL [place] EGFR IF NonAfrican [place] >90.0 >60 mL/min [place] Comment on above: KDIGO guidelines pro vide the following GFR categories: Stage GFR(ml/min/1.73 m2) Terms G1 >=90 Normal or high G2 60-89 Mildly decreased* G3a 45-59 Mildly to moderately decreased G3b 30-44 Moderately to severely decreased G4 15-29 Severely decreased G5 <15 Kidney failure *Relative to young adult level. In the absence of evidence of kidney damage, neither GFR category G1 nor G2 fulfill the criteria for CKD. The CKD-EPI equation is validated in individuals 18 years of age and older. Currently the best equation for estimating glomerular filtration rate (GFR) from serum creatinine in children is the Bedside Vasquez equation. It is less accurate in patients with extremes of muscle mass, restriction of dietary protein, ingestion of creatine, extra-renal metabolism of creatinine, or treatment with medications that affect renal tubular creatinine secretion. GFR/1.73 sq M predicted among blacks MDRD (S/P/Bld) [Vol rate/Area] mL/min/{1.73_m2} >60 mL/min [place] Glucose [Mass/Vol] 118 mg/dL High 70 - 100 mg/dL [place] Potassium [Moles/Vol] 4.2 mmol/L 3.5 - 5.1 mmol/L [place] Protein [Mass/Vol] 6.0 g/dL Low 6.3 - 8.2 g/dL [place] Sodium [Moles/Vol] 139 mmol/L 135 - 145 mmol/L [place] Urea nitrogen [Mass/Vol] 31 mg/dL High 7 - 20 mg/dL [place] D-Dimer, Quantitativeon 10-16 D-Dimer, Quant 5.62 mg/L High 0 - 0.5 mg/L [facility], [place] Comment on above: [employer] D-Dimer va lues of <0.50 mg/L FEU can be used in combination with a pre-test probability model (e.g. Well's) to exclude pulmonary embolism (PE) disease, as well as an aid in the diagnosis of deep vein thrombosis (DVT). Interpretation and review of laboratory results Abnormal [facility], [place] Test Performed by [facility], [address], [place], [place] [id number] [place] [address], [place] Ferritinon 10-29-2020 Ferritin [Mass/Vol] 618 ng/mL High 18 - 464 ng/mL [place] Interpretation and review of laboratory results Abnormal [facility], [place] Test Performed by [facility], [address], [place], [place] [id number] [place] [address] Lactate Dehydrogenaseon 10-16 LD 292 U/L High 120 - 246 U/L [facility], [place] Magnesiumon 10-29-2020 Magnesium [Mass/Vol] 2.3 mg/dL 1.6 - 2 .3 mg/dL [facility], [place] Otheron 10-29-2020 Interpretation and review of laboratory results Abnormal [facility], [place] Test Performed by [facility] [employer] [facility], [address], [place], [place] [id number] [place] [address], [place] POCT Arterialon 10-29-2020 Base Excess, Arterial 2.9 mmol/L -3 - 3 mmol/L [place] HCO3, Arterial 27.1 mmol/L High 21 - 25 mmol/L [facility], [place] Interpretation and review of laboratory results Abnormal [place] Oxygen saturation in Blood 94.3 % Low 95 - 100 % [place] pCO2, Arterial 39.1 mm[Hg] 35 - 45 mm[Hg] [facility], [place] pH, Arterial 7.449 [place] pO2, Arterial 69.0 mm[Hg] Low 80 - 100 mm[Hg] [facility], [place] Sodium [Moles/Vol] 45 mmol/L [facility], [place] Comment on above: Performed by [facility] ID : [id number] [place], [place] TCO2, Arterial 28.3 mmol/L High 23 - 27 mmol/L [place] Test Performed by [facility], [address], [place], [place] [address] [place] Phosphoruson 10-29-2020 Phosphate [Mass/Vol] 3.3 mg/dL 2.5 - 4 .5 mg/dL [place] Test Performed by [facility], [address], [place], [place] [address] [place] XR CHEST PORTABLEon 10-29-19 Patient Name: JOSEPH BROWN Diagnostic Radiology ACCESSION EXAM DATE/TIME PROCEDURE ORDERING PROVIDER [id number] 10/29/2020 05:58 EST CR Chest Portable AMARILIS LUKE JEFFREY A CPT code 98096 Reason For Exam (CR Chest Portable) pneumonia Report PORTABLE CHEST: INDICATION: Pneumonia COMPARISON: 10/27/2020 Obtained at 0535 hours. A single portable AP radiograph of the chest was obtained. The heart is normal in size. The mediastinal silhouette is normal. Diffuse bilateral patchy infiltrates are present. There are no effusions. There is no pleural thickening. Arthritic changes of the spine and shoulders are present. The ET tube and NG tube are unchanged. A right internal jugular central venous catheter is present with the tip overlying the superior vena cava. IMPRESSION: Diffuse bilateral patchy infiltrates are present. Report Dictated on Workstation: [id number]-REMOTE --- Final --- Dictating Physician: DO CID ALFRED Signed Date and Time: 10/29/2020 6:15 am Signed by: DO CID ALFRED Transcribed Date and Time: 10/29/2020 6:16 [facility], [facility] Incoming Radiology Results From [facility] - 10/29/2020 6:16 AM EST Patient Name: JOSEPH BROWN Diagnostic Radiology ACCESSION EXAM DATE/TIME PROCEDURE ORDERING PROVIDER [id number] 10/29/2020 05:58 EST CR Chest Portable AMARILIS LUKE JEFFREY A CPT code 79760 Reason For Exam (CR Chest Portable) pneumonia Report PORTABLE CHEST: INDICATION: Pneumonia COMPARISON: 10/27/2020 Obtained at 0535 hours. A single portable AP radiograph of the chest was obtained. The heart is normal in size. The mediastinal silhouette is normal. Diffuse bilateral patchy infiltrates are present. There are no effusions. There is no pleural thickening. Arthritic changes of the spine and shoulders are present. The ET tube and NG tube are unchanged. A right internal jugular central venous catheter is present with the tip overlying the superior vena cava. IMPRESSION: Diffuse bilateral patchy infiltrates are present. Report Dictated on Workstation: [id number] --- Final --- Dictating Physician: DO CID ALFRED Signed Date and Time: 10/29/2020 6:15 am Signed by: DO CID ALFRED Transcribed Date and Time: 10/29/2020 6:16 [place] C-Reactive Proteinon 021 CRP [Mass/Vol] 88 mg/L High 0 - 6 mg/L [place] Comment on above: . CBC Auto Differentialon 10-16 Absolute Baso # 0.0 10*3/uL 0 - 0.2 10*3/uL [place] Absolute Neut # 6.4 10*3/uL 1.8 - 7 10*3/uL [place] Basophils/100 WBC (Bld) 0.2 % 0 - 2 % [place] Eosinophils (Bld) [#/Vol] 0.2 10*3/uL 0 - 0.5 10*3/uL [place] Eosinophils/100 WBC (Bld) 3.0 % 1 - 6 % [place] Erythrocyte distribution width (RBC) [Ratio] 14.4 % 11.5 - 14.5 % [place] Granulocytes/100 WBC (Bld) 79.9 % 40 - 80 % [place] Hematocrit (Bld) [Volume fraction] 31.9 % Low 40 - 52 % [place] Hemoglobin (Bld) [Mass/Vol] 10.7 g/dL Low 13 - 18 g/dL [place] Interpretation and review of laboratory results Abnormal [place] Lymphocytes (Bld) [#/Vol] 0.7 10*3/uL Low 1 - 4.3 10*3/uL [place] Lymphocytes/100 WBC (Bld) 8.7 % Low 20 - 40 % [place] MCH (RBC) [Entitic mass] 30.4 pg 26 - 34 pg [place] MCHC (RBC) [Mass/Vol] 33.5 % 32 - 36 % [place] MCV (RBC) [Entitic vol] 90.7 fL 80 - 98 fL [place] Monocytes (Bld) [#/Vol] 0.7 10*3/uL 0 - 0.8 10*3/uL [place] Monocytes/100 WBC (Bld) 8.2 % 2 - 10 % [place] Platelet mean volume (Bld) [Entitic vol] 8.2 fL 7.4 - 10.4 fL [place] Platelets (Bld) [#/Vol] 235 10*3/uL 140 - 440 10*3/uL [place] RBC (Bld) [#/Vol] 3.51 10*6/uL Low 4.4 - 5.9 10*6/uL [place] WBC (Bld) [#/Vol] 8.0 10*3/uL 3.6 - 10.7 10*3/uL [place] Test Performed by [facility], [address] [place], [place] [id number] [place] [address] Calcium, Ionizedon Ionized Ca 4.40 mg/dL 4.3 - 5.2 mg/dL [place] pH (Bld) 7.45 [pH] [place] Test Performed by [facility], [address] [place], [place] [address] [place] Comprehensive Metabolic Pane l w/ Reflex to MGon 10-28-2020 Albumin [Mass/Vol] 2.8 g/dL Low 3.5 - 5 g/dL [place] ALP [Catalytic activity/Vol] 64 U/L 38 - 126 U/L [place] ALT [Catalytic activity/Vol] 40 U/L 0 - 49 U/L [place] Comment on above: The ALT test is perf ormed by an updated assay method. Please note that the reference intervals have been changed and are now sex specific. Anion gap [Moles/Vol] 6 mmol/L [place] AST [Catalytic activity/Vol] 45 U/L 15 - 46 U/L [place] Bilirubin Ql (U) 0.6 mg/dL 0.2 - 1.3 mg/dL [place] Calcium [Mass/Vol] 8.2 mg/dL Low 8.4 - 10. 4 mg/dL [place] Chloride [Moles/Vol] 106 mmol/L 98 - 10 7 mmol/L [place] CO2 [Moles/Vol] 28 mmol/L 22 - 30 mmol/L [place] Creatinine [Mass/Vol] 0.64 mg/dL 0.52 - 1.25 mg/dL [place] EGFR IF NonAfrican [place] >90.0 >60 mL/min [place] Comment on above: KDIGO guidelines pro vide the following GFR categories: Stage GFR(ml/min/1.73 m2) Terms G1 >=90 Normal or high G2 60-89 Mildly decreased* G3a 45-59 Mildly to moderately decreased G3b 30-44 Moderately to severely decreased G4 15-29 Severely decreased G5 <15 Kidney failure *Relative to young adult level. In the absence of evidence of kidney damage, neither GFR category G1 nor G2 fulfill the criteria for CKD. The CKD-EPI equation is validated in individuals 18 years of age and older. Currently the best equation for estimating glomerular filtration rate (GFR) from serum creatinine in children is the Bedside Vasquez equation. It is less accurate in patients with extremes of muscle mass, restriction of dietary protein, ingestion of creatine, extra-renal metabolism of creatinine, or treatment with medications that affect renal tubular creatinine secretion. GFR/1.73 sq M predicted among blacks MDRD (S/P/Bld) [Vol rate/Area] mL/min/{1.73_m2} >60 mL/min [place] Glucose [Mass/Vol] 146 mg/dL High 70 - 100 mg/dL [place] Potassium [Moles/Vol] 4.2 mmol/L 3.5 - 5.1 mmol/L [place] Protein [Mass/Vol] 6.0 g/dL Low 6.3 - 8.2 g/dL [place] Sodium [Moles/Vol] 140 mmol/L 135 - 145 mmol/L [place] Urea nitrogen [Mass/Vol] 32 mg/dL High 7 - 20 mg/dL [place] Culture, Respiratoryon 10-28 Interpretation and review of laboratory results Abnormal [place] Respiratory Culture Few normal respiratory yolanda. Abnormal [place] Respiratory Culture Moderate [place] Respiratory Culture Streptococcus pneumoniae Abnormal [place] Test Performed by [facility], [address] [place] [address] [place] D-Dimer, Quantitativeon 10-16 D-Dimer, Quant 3.85 mg/L High 0 - 0.5 mg/L [place], [place] Comment on above: [employer] D-Dimer va lues of <0.50 mg/L FEU can be used in combination with a pre-test probability model (e.g. Well's) to exclude pulmonary embolism (PE) disease, as well as an aid in the diagnosis of deep vein thrombosis (DVT). Interpretation and review of laboratory results Abnormal [place] Test Performed by [facility], [address] [place], [place] [address] [place] Ferritinon 10-28-2020 Ferritin [Mass/Vol] 594 ng/mL High 18 - 464 ng/mL [place] Interpretation and review of laboratory results Abnormal [place] Test Performed by [facility] [employer] [facility], [address] [place] [address] [place] Lactate Dehydrogenaseon 10-16 LD 283 U/L High 120 - 246 U/L [place] Magnesiumon 10-28-2020 Magnesium [Mass/Vol] 2.5 mg/dL High 1.6 - 2 .3 mg/dL [facility], [place] Otheron 10-28-2020 Interpretation and review of laboratory results Abnormal [place] Test Performed by [facility], [address] [place], [place] [id number] [place] [address] POCT Arterialon 10-28-2020 Base Excess, Arterial 3.0 mmol/L -3 - 3 mmol/L [place] HCO3, Arterial 27.1 mmol/L High 21 - 25 mmol/L [place] Interpretation and review of laboratory results Abnormal [place] Oxygen saturation in Blood 93.8 % Low 95 - 100 % [place] pCO2, Arterial 38.5 mm[Hg] 35 - 45 mm[Hg] [place] pH, Arterial 7.455 [place] pO2, Arterial 66.3 mm[Hg] Low 80 - 100 mm[Hg] [place] Sodium [Moles/Vol] 45 mmol/L [place] Comment on above: Performed by [employer] ID : [id number] [place], [place] TCO2, Arterial 28.3 mmol/L High 23 - 27 mmol/L [place] Test Performed by [facility], [address] [place], [place] [id number] [place] [address] Phosphoruson 10-28-2020 Phosphate [Mass/Vol] 3.6 mg/dL 2.5 - 4 .5 mg/dL [place] Test Performed by [facility], [address] [place], [place] [address] [place] C-Reactive Proteinon 021 CRP [Mass/Vol] 72 mg/L High 0 - 6 mg/L [place] Comment on above: . CBC Auto Differentialon 10-16 Absolute Baso # 0.0 10*3/uL 0 - 0.2 10*3/uL [place] Absolute Neut # 5.8 10*3/uL 1.8 - 7 10*3/uL [place] Basophils/100 WBC (Bld) 0.2 % 0 - 2 % [place] Eosinophils (Bld) [#/Vol] 0.1 10*3/uL 0 - 0.5 10*3/uL [place] Eosinophils/100 WBC (Bld) 1.6 % 1 - 6 % [place] Erythrocyte distribution width (RBC) [Ratio] 14.4 % 11.5 - 14.5 % [place] Granulocytes/100 WBC (Bld) 80.4 % High 40 - 80 % [place] Hematocrit (Bld) [Volume fraction] 31.6 % Low 40 - 52 % [place] Hemoglobin (Bld) [Mass/Vol] 10.5 g/dL Low 13 - 18 g/dL [place] Interpretation and review of laboratory results Abnormal [place] Lymphocytes (Bld) [#/Vol] 0.6 10*3/uL Low 1 - 4.3 10*3/uL [place] Lymphocytes/100 WBC (Bld) 8.2 % Low 20 - 40 % [place] MCH (RBC) [Entitic mass] 29.9 pg 26 - 34 pg [place] MCHC (RBC) [Mass/Vol] 33.2 % 32 - 36 % [place] MCV (RBC) [Entitic vol] 90.1 fL 80 - 98 fL [place] Monocytes (Bld) [#/Vol] 0.7 10*3/uL 0 - 0.8 10*3/uL [place] Monocytes/100 WBC (Bld) 9.6 % 2 - 10 % [place] Platelet mean volume (Bld) [Entitic vol] 7.9 fL 7.4 - 10.4 fL [place] Platelets (Bld) [#/Vol] 245 10*3/uL 140 - 440 10*3/uL [place] RBC (Bld) [#/Vol] 3.51 10*6/uL Low 4.4 - 5.9 10*6/uL [place] WBC (Bld) [#/Vol] 7.2 10*3/uL 3.6 - 10.7 10*3/uL [place] Test Performed by [facility], [address], [place], [place] [address] [place] Calcium, Ionizedon Ionized Ca 4.40 mg/dL 4.3 - 5.2 mg/dL [place] pH (Bld) 7.46 [pH] [place] Test Performed by [facility], [address], [place], [place] [address] [place] Comprehensive Metabolic Pane l w/ Reflex to MGon 10-27-2020 Albumin [Mass/Vol] 2.9 g/dL Low 3.5 - 5 g/dL [place] ALP [Catalytic activity/Vol] 61 U/L 38 - 126 U/L [place] ALT [Catalytic activity/Vol] 29 U/L 0 - 49 U/L [place] Comment on above: The ALT test is perf ormed by an updated assay method. Please note that the reference intervals have been changed and are now sex specific. Anion gap [Moles/Vol] 5 mmol/L [place] AST [Catalytic activity/Vol] 41 U/L 15 - 46 U/L [place] Bilirubin Ql (U) 0.7 mg/dL 0.2 - 1.3 mg/dL [place] Calcium [Mass/Vol] 8.0 mg/dL Low 8.4 - 10. 4 mg/dL [place] Chloride [Moles/Vol] 104 mmol/L 98 - 10 7 mmol/L [place] CO2 [Moles/Vol] 31 mmol/L High 22 - 30 mmol/L [place] Creatinine [Mass/Vol] 0.62 mg/dL 0.52 - 1.25 mg/dL [place] EGFR IF NonAfrican [place] >90.0 >60 mL/min [place] Comment on above: KDIGO guidelines pro vide the following GFR categories: Stage GFR(ml/min/1.73 m2) Terms G1 >=90 Normal or high G2 60-89 Mildly decreased* G3a 45-59 Mildly to moderately decreased G3b 30-44 Moderately to severely decreased G4 15-29 Severely decreased G5 <15 Kidney failure *Relative to young adult level. In the absence of evidence of kidney damage, neither GFR category G1 nor G2 fulfill the criteria for CKD. The CKD-EPI equation is validated in individuals 18 years of age and older. Currently the best equation for estimating glomerular filtration rate (GFR) from serum creatinine in children is the Bedside Vasquez equation. It is less accurate in patients with extremes of muscle mass, restriction of dietary protein, ingestion of creatine, extra-renal metabolism of creatinine, or treatment with medications that affect renal tubular creatinine secretion. GFR/1.73 sq M predicted among blacks MDRD (S/P/Bld) [Vol rate/Area] mL/min/{1.73_m2} >60 mL/min [place] Glucose [Mass/Vol] 126 mg/dL High 70 - 100 mg/dL [place] Potassium [Moles/Vol] 4.3 mmol/L 3.5 - 5.1 mmol/L [place] Protein [Mass/Vol] 6.0 g/dL Low 6.3 - 8.2 g/dL [place] Sodium [Moles/Vol] 139 mmol/L 135 - 145 mmol/L [place] Urea nitrogen [Mass/Vol] 30 mg/dL High 7 - 20 mg/dL [place] D-Dimer, Quantitativeon 10-16 D-Dimer, Quant 4.7 mg/L High 0 - 0.5 mg/L [place], [place] Comment on above: [employer] D-Dimer va lues of <0.50 mg/L FEU can be used in combination with a pre-test probability model (e.g. Well's) to exclude pulmonary embolism (PE) disease, as well as an aid in the diagnosis of deep vein thrombosis (DVT). Interpretation and review of laboratory results Abnormal [place] Test Performed by [facility], [address] [place] [address] [place] Ferritinon 10-27-2020 Ferritin [Mass/Vol] 567 ng/mL High 18 - 464 ng/mL [place] Interpretation and review of laboratory results Abnormal [facility], [place] Test Performed by [facility], [address], [place], [place] [address] [place] Lactate Dehydrogenaseon 10-16 LD 310 U/L High 120 - 246 U/L [facility], [place] Magnesiumon 10-27-2020 Magnesium [Mass/Vol] 2.5 mg/dL High 1.6 - 2 .3 mg/dL [facility], [place] Otheron 10-27-2020 Interpretation and review of laboratory results Abnormal [place] Test Performed by [facility] [facility] [facility], [address], [place], [place] [address] [facility], [place] POCT Arterialon 10-27-2020 Base Excess, Arterial 3.6 mmol/L High -3 - 3 mmol/L [facility], [place] HCO3, Arterial 27.7 mmol/L High 21 - 25 mmol/L [place] Interpretation and review of laboratory results Abnormal [place] Oxygen saturation in Blood 94.7 % Low 95 - 100 % [place] pCO2, Arterial 39.5 mm[Hg] 35 - 45 mm[Hg] [place] pH, Arterial 7.455 [place] pO2, Arterial 70.2 mm[Hg] Low 80 - 100 mm[Hg] [place] Sodium [Moles/Vol] 50 mmol/L [place] Comment on above: Performed by [facility] ID : [id number] [place], [place] TCO2, Arterial 29 mmol/L High 23 - 27 mmol/L [facility], [place] Test Performed by [facility], [address], [place], [place] [address] [place] PROCALCITONINon 10-27-2020 Interpretation and review of laboratory results Abnormal [place] Procalcitonin 0.17 ng/mL Abnormal <0.10 [facility], [place] Sodium [Moles/Vol] See Below [facility], [place] Comment on above: PCT <0.50 = Low risk of severe sepsis and/or septic shock. PCT >2.00 = High risk of severe sepsis and/or septic shock. Test Performed by [facility], [address] [place] [address] [place] Phosphoruson 10-27-2020 Phosphate [Mass/Vol] 3.7 mg/dL 2.5 - 4 .5 mg/dL [place] XR CHEST PORTABLEon 10-27-19 Patient Name: JOSEPH BROWN Diagnostic Radiology ACCESSION EXAM DATE/TIME PROCEDURE ORDERING PROVIDER [id number] 10/27/2020 05:35 EST CR Chest Portable MD ALFORD JAMES A CPT code 95075 Reason For Exam (CR Chest Portable) pneumonia, ETT position Report PORTABLE CHEST: INDICATION: Pneumonia COMPARISON: 10/24/2020 Obtained at 0425 hours. A single portable AP radiograph of the chest was obtained. The heart is normal in size. The mediastinal silhouette is normal. Diffuse bilateral ill-defined infiltrates are present. There is no significant interval change. No effusions are seen. There is no pleural thickening. Arthritic changes of the spine and shoulders are present. The ET tube and NG tube are unchanged. A right internal jugular central venous catheter is present with the tip overlying the superior vena cava. IMPRESSION: No change in the diffuse bilateral ill-defined infiltrates. Report Dictated on Workstation: [id number] --- Final --- Dictating Physician: DO CID ALFRED Signed Date and Time: 10/27/2020 4:45 am Signed by: DO CID ALFRED Transcribed Date and Time: 10/27/2020 5:35 [place], [facility] Incoming Radiology Results From [facility] - 10/27/2020 5:35 AM EST Patient Name: JOSEPH BROWN Diagnostic Radiology ACCESSION EXAM DATE/TIME PROCEDURE ORDERING PROVIDER [id number] 10/27/2020 05:35 EST CR Chest Portable MD ALFORD JAMES A CPT code 98228 Reason For Exam (CR Chest Portable) pneumonia, ETT position Report PORTABLE CHEST: INDICATION: Pneumonia COMPARISON: 10/24/2020 Obtained at 0425 hours. A single portable AP radiograph of the chest was obtained. The heart is normal in size. The mediastinal silhouette is normal. Diffuse bilateral ill-defined infiltrates are present. There is no significant interval change. No effusions are seen. There is no pleural thickening. Arthritic changes of the spine and shoulders are present. The ET tube and NG tube are unchanged. A right internal jugular central venous catheter is present with the tip overlying the superior vena cava. IMPRESSION: No change in the diffuse bilateral ill-defined infiltrates. Report Dictated on Workstation: [id number]-REMOTE --- Final --- Dictating Physician: DO CID ALFRED Signed Date and Time: 10/27/2020 4:45 am Signed by: DO CID ALFRED Transcribed Date and Time: 10/27/2020 5:35 [place] C-Reactive Proteinon 021 CRP [Mass/Vol] 131.8 mg/L High 0 - 6 mg/L [place] Comment on above: . Interpretation and review of laboratory results Abnormal [place] Test Performed by [facility], [address], [place], [place] [address] [place] CBC Auto Differentialon 10-16 Absolute Baso # 0.0 10*3/uL 0 - 0.2 10*3/uL [place] Absolute Neut # 6.3 10*3/uL 1.8 - 7 10*3/uL [place] Basophils/100 WBC (Bld) 0.0 % 0 - 2 % [place] Eosinophils (Bld) [#/Vol] 0.0 10*3/uL 0 - 0.5 10*3/uL [place] Eosinophils/100 WBC (Bld) 0.4 % Low 1 - 6 % [place] Erythrocyte distribution width (RBC) [Ratio] 14.2 % 11.5 - 14.5 % [place] Granulocytes/100 WBC (Bld) 88.2 % High 40 - 80 % [place] Hematocrit (Bld) [Volume fraction] 28.9 % Low 40 - 52 % [place] Hemoglobin (Bld) [Mass/Vol] 9.7 g/dL Low 13 - 18 g/dL [place] Interpretation and review of laboratory results Abnormal [place] Lymphocytes (Bld) [#/Vol] 0.4 10*3/uL Low 1 - 4.3 10*3/uL [place] Lymphocytes/100 WBC (Bld) 5.0 % Low 20 - 40 % [place] MCH (RBC) [Entitic mass] 30.1 pg 26 - 34 pg [place] MCHC (RBC) [Mass/Vol] 33.4 % 32 - 36 % [place] MCV (RBC) [Entitic vol] 90.2 fL 80 - 98 fL [place] Monocytes (Bld) [#/Vol] 0.5 10*3/uL 0 - 0.8 10*3/uL [place] Monocytes/100 WBC (Bld) 6.4 % 2 - 10 % [place] Platelet mean volume (Bld) [Entitic vol] 8.4 fL 7.4 - 10.4 fL [place] Platelets (Bld) [#/Vol] 190 10*3/uL 140 - 440 10*3/uL [place] RBC (Bld) [#/Vol] 3.21 10*6/uL Low 4.4 - 5.9 10*6/uL [place] WBC (Bld) [#/Vol] 7.1 10*3/uL 3.6 - 10.7 10*3/uL [place] Test Performed by [facility], [address] [place], [place] [id number] [place] [address] Calcium, Ionizedon Ionized Ca 4.40 mg/dL 4.3 - 5.2 mg/dL [place] pH (Bld) 7.44 [pH] [place] Test Performed by [facility], [address] [place], [place] [address] [place] Comprehensive Metabolic Pane l w/ Reflex to MGon 10-26-2020 Albumin [Mass/Vol] 2.7 g/dL Low 3.5 - 5 g/dL [place] ALP [Catalytic activity/Vol] 59 U/L 38 - 126 U/L [place] ALT [Catalytic activity/Vol] 23 U/L 0 - 49 U/L [place] Comment on above: The ALT test is perf ormed by an updated assay method. Please note that the reference intervals have been changed and are now sex specific. Anion gap [Moles/Vol] 5 mmol/L [place] AST [Catalytic activity/Vol] 36 U/L 15 - 46 U/L [place] Bilirubin Ql (U) 0.6 mg/dL 0.2 - 1.3 mg/dL [place] Calcium [Mass/Vol] 7.9 mg/dL Low 8.4 - 10. 4 mg/dL [place] Chloride [Moles/Vol] 102 mmol/L 98 - 10 7 mmol/L [place] CO2 [Moles/Vol] 31 mmol/L High 22 - 30 mmol/L [place] Creatinine [Mass/Vol] 0.66 mg/dL 0.52 - 1.25 mg/dL [place] EGFR IF NonAfrican [place]an >90.0 >60 mL/min [place] Comment on above: KDIGO guidelines pro vide the following GFR categories: Stage GFR(ml/min/1.73 m2) Terms G1 >=90 Normal or high G2 60-89 Mildly decreased* G3a 45-59 Mildly to moderately decreased G3b 30-44 Moderately to severely decreased G4 15-29 Severely decreased G5 <15 Kidney failure *Relative to young adult level. In the absence of evidence of kidney damage, neither GFR category G1 nor G2 fulfill the criteria for CKD. The CKD-EPI equation is validated in individuals 18 years of age and older. Currently the best equation for estimating glomerular filtration rate (GFR) from serum creatinine in children is the Bedside Vasquez equation. It is less accurate in patients with extremes of muscle mass, restriction of dietary protein, ingestion of creatine, extra-renal metabolism of creatinine, or treatment with medications that affect renal tubular creatinine secretion. GFR/1.73 sq M predicted among blacks MDRD (S/P/Bld) [Vol rate/Area] mL/min/{1.73_m2} >60 mL/min [place] Glucose [Mass/Vol] 189 mg/dL High 70 - 100 mg/dL [place] Potassium [Moles/Vol] 3.9 mmol/L 3.5 - 5.1 mmol/L [facility], [place] Protein [Mass/Vol] 5.5 g/dL Low 6.3 - 8.2 g/dL [place] Sodium [Moles/Vol] 137 mmol/L 135 - 145 mmol/L [place] Urea nitrogen [Mass/Vol] 34 mg/dL High 7 - 20 mg/dL [place] D-Dimer, Quantitativeon 10-16 D-Dimer, Quant 6.66 mg/L High 0 - 0.5 mg/L [place], [place] Comment on above: [employer] D-Dimer va lues of <0.50 mg/L FEU can be used in combination with a pre-test probability model (e.g. Well's) to exclude pulmonary embolism (PE) disease, as well as an aid in the diagnosis of deep vein thrombosis (DVT). Interpretation and review of laboratory results Abnormal [place] Test Performed by [facility], [address] [place], [place] [id number] [place] [address] Ferritinon 10-26-2020 Ferritin [Mass/Vol] 575 ng/mL High 18 - 464 ng/mL [place] Interpretation and review of laboratory results Abnormal [place] Test Performed by [facility], [address], [place], [place] [id number] [place] [address] Lactate Dehydrogenaseon 10-16 LD 322 U/L High 120 - 246 U/L [facility], [place] Magnesiumon 10-26-2020 Magnesium [Mass/Vol] 2.6 mg/dL High 1.6 - 2 .3 mg/dL [facility], [place] Otheron 10-26-2020 Interpretation and review of laboratory results Abnormal [place] Test Performed by [facility], [address], [place], [place] [id number] [place] [address] POCT Arterialon 10-26-2020 Base Excess, Arterial 3.2 mmol/L High -3 - 3 mmol/L [place] HCO3, Arterial 27.4 mmol/L High 21 - 25 mmol/L [place] Interpretation and review of laboratory results Abnormal [place] Oxygen saturation in Blood 96.1 % 95 - 100 % [place] pCO2, Arterial 39.3 mm[Hg] 35 - 45 mm[Hg] [place] pH, Arterial 7.451 [place] pO2, Arterial 78.6 mm[Hg] Low 80 - 100 mm[Hg] [place] Sodium [Moles/Vol] 50 mmol/L [place] Comment on above: Performed by BABATUNDEIA ID : [id number] [place], [place] TCO2, Arterial 28.6 mmol/L High 23 - 27 mmol/L [place] Test Performed by [facility], [address] Phosphoruson 10-26-2020 Phosphate [Mass/Vol] 3.2 mg/dL 2.5 - 4 .5 mg/dL [place] Test Performed by [facility], [address] C-Reactive Proteinon 021 CRP [Mass/Vol] 245.5 mg/L High 0 - 6 mg/L [place] Comment on above: . Interpretation and review of laboratory results Abnormal [place] Test Performed by [facility], [address] CBC Auto Differentialon 10-16 Absolute Baso # 0.0 10*3/uL 0 - 0.2 10*3/uL [place] Absolute Neut # 9.1 10*3/uL High 1.8 - 7 10*3/uL [place] Basophils/100 WBC (Bld) 0.1 % 0 - 2 % [place] Eosinophils (Bld) [#/Vol] 0.0 10*3/uL 0 - 0.5 10*3/uL [place] Eosinophils/100 WBC (Bld) 0.0 % Low 1 - 6 % [place] Erythrocyte distribution width (RBC) [Ratio] 14.5 % 11.5 - 14.5 % [place] Granulocytes/100 WBC (Bld) 90.7 % High 40 - 80 % [place] Hematocrit (Bld) [Volume fraction] 33.8 % Low 40 - 52 % [place] Hemoglobin (Bld) [Mass/Vol] 11.1 g/dL Low 13 - 18 g/dL [place] Interpretation and review of laboratory results Abnormal [place] Lymphocytes (Bld) [#/Vol] 0.4 10*3/uL Low 1 - 4.3 10*3/uL [place] Lymphocytes/100 WBC (Bld) 4.3 % Low 20 - 40 % [place] MCH (RBC) [Entitic mass] 29.8 pg 26 - 34 pg [place] MCHC (RBC) [Mass/Vol] 32.9 % 32 - 36 % [place] MCV (RBC) [Entitic vol] 90.5 fL 80 - 98 fL [place] Monocytes (Bld) [#/Vol] 0.5 10*3/uL 0 - 0.8 10*3/uL [place] Monocytes/100 WBC (Bld) 4.9 % 2 - 10 % [place] Platelet mean volume (Bld) [Entitic vol] 8.1 fL 7.4 - 10.4 fL [place] Platelets (Bld) [#/Vol] 224 10*3/uL 140 - 440 10*3/uL [place] RBC (Bld) [#/Vol] 3.73 10*6/uL Low 4.4 - 5.9 10*6/uL [place] WBC (Bld) [#/Vol] 10.0 10*3/uL 3.6 - 10.7 10*3/uL [place] Test Performed by [facility], [address], [place], [place] [address] [place] Calcium, Ionizedon Interpretation and review of laboratory results Abnormal [place] Ionized Ca 4.40 mg/dL 4.3 - 5.2 mg/dL [place] pH (Bld) 7.47 [pH] [place] Test Performed by [facility], [address], [place], [place] [address] [place] Comprehensive Metabolic Pane l w/ Reflex to MGon 10-25-2020 Albumin [Mass/Vol] 2.7 g/dL Low 3.5 - 5 g/dL [place] ALP [Catalytic activity/Vol] 72 U/L 38 - 126 U/L [place] ALT [Catalytic activity/Vol] 25 U/L 0 - 49 U/L [place] Comment on above: The ALT test is perf ormed by an updated assay method. Please note that the reference intervals have been changed and are now sex specific. Anion gap [Moles/Vol] 4 mmol/L [place] AST [Catalytic activity/Vol] 41 U/L 15 - 46 U/L [place] Bilirubin Ql (U) 1.0 mg/dL 0.2 - 1.3 mg/dL [place] Calcium [Mass/Vol] 8.2 mg/dL Low 8.4 - 10. 4 mg/dL [place] Chloride [Moles/Vol] 102 mmol/L 98 - 10 7 mmol/L [place] CO2 [Moles/Vol] 31 mmol/L High 22 - 30 mmol/L [place] Creatinine [Mass/Vol] 0.74 mg/dL 0.52 - 1.25 mg/dL [place] EGFR IF NonAfrican [place] >90.0 >60 mL/min [place] Comment on above: KDIGO guidelines pro vide the following GFR categories: Stage GFR(ml/min/1.73 m2) Terms G1 >=90 Normal or high G2 60-89 Mildly decreased* G3a 45-59 Mildly to moderately decreased G3b 30-44 Moderately to severely decreased G4 15-29 Severely decreased G5 <15 Kidney failure *Relative to young adult level. In the absence of evidence of kidney damage, neither GFR category G1 nor G2 fulfill the criteria for CKD. The CKD-EPI equation is validated in individuals 18 years of age and older. Currently the best equation for estimating glomerular filtration rate (GFR) from serum creatinine in children is the Bedside Vasquez equation. It is less accurate in patients with extremes of muscle mass, restriction of dietary protein, ingestion of creatine, extra-renal metabolism of creatinine, or treatment with medications that affect renal tubular creatinine secretion. GFR/1.73 sq M predicted among blacks MDRD (S/P/Bld) [Vol rate/Area] mL/min/{1.73_m2} >60 mL/min [facility] [place] Glucose [Mass/Vol] 153 mg/dL High 70 - 100 mg/dL [facility] [place] Potassium [Moles/Vol] 3.9 mmol/L 3.5 - 5.1 mmol/L [facility]ITAL[facility] [place] Protein [Mass/Vol] 5.8 g/dL Low 6.3 - 8.2 g/dL [facility] [employer] Sodium [Moles/Vol] 137 mmol/L 135 - 145 mmol/L [facility] [employer] Urea nitrogen [Mass/Vol] 32 mg/dL High 7 - 20 mg/dL [facility] [employer] D-Dimer, Quantitativeon 10-16 D-Dimer, Quant >35.20 High 0 - 0.5 mg/L [place], [place] Comment on above: [employer] D-Dimer va lues of <0.50 mg/L FEU can be used in combination with a pre-test probability model (e.g. Well's) to exclude pulmonary embolism (PE) disease, as well as an aid in the diagnosis of deep vein thrombosis (DVT). Interpretation and review of laboratory results Abnormal [place] Test Performed by [facility], [address] [place], [place] [address] [facility] Ferritinon 10-25-2020 Ferritin [Mass/Vol] 678 ng/mL High 18 - 464 ng/mL [facility] [employer] [place] Interpretation and review of laboratory results Abnormal [place] Test Performed by [facility], [address], [place], [place] [address] [facility], [place] Gram Stainon 10-25-2020 INR Coag (Bld) [Relative time] Moderate polymorphonuclear cells/lpf. Few epithelial cells/lpf. Many gram positive cocci in pairs and chains. [facility], [place] Test Performed by [facility], [address] [place] [id number] [place] Lactate Dehydrogenaseon 10-16 LD 430 U/L High 120 - 246 U/L [facility] [place], [place] Magnesiumon 10-25-2020 Magnesium [Mass/Vol] 2.7 mg/dL High 1.6 - 2 .3 mg/dL [facility], [place] Otheron 10-25-2020 Interpretation and review of laboratory results Abnormal [facility], [place] Test Performed by [facility], [address], [place], [place] [address] [facility], [place] POCT Arterialon 10-25-2020 Base Excess, Arterial 2.7 mmol/L -3 - 3 mmol/L [facility], [place] HCO3, Arterial 25.8 mmol/L High 21 - 25 mmol/L [facility], [place] Interpretation and review of laboratory results Abnormal [place] Oxygen saturation in Blood 94.5 % Low 95 - 100 % [facility], [place] pCO2, Arterial 33.6 mm[Hg] Low 35 - 45 mm[Hg] [facility], [place] pH, Arterial 7.493 [place] pO2, Arterial 66.0 mm[Hg] Low 80 - 100 mm[Hg] [facility], [place] Sodium [Moles/Vol] 50 mmol/L [facility], [place] Comment on above: Performed by CLIA ID : [id number] [place], [place] TCO2, Arterial 26.9 mmol/L 23 - 27 mmol/L [facility], [place] Test Performed by [facility], [address], [place], [place] [address] [facility], [place] Base Excess, Arterial 6.1 mmol/L High -3 - 3 mmol/L [facility] [place], [place] HCO3, Arterial 29.4 mmol/L High 21 - 25 mmol/L [facility] [place], [place] Interpretation and review of laboratory results Abnormal [facility] [place], [place] Oxygen saturation in Blood 93.2 % Low 95 - 100 % [facility] [place] pCO2, Arterial 37.3 mm[Hg] 35 - 45 mm[Hg] [facility]- [place], [place] pH, Arterial 7.506 High [facility] - [place], [place] pO2, Arterial 60.9 mm[Hg] Low 80 - 100 mm[Hg] [facility] [place], [place] Sodium [Moles/Vol] 50 mmol/L [facility] [place], [place] Comment on above: Performed by CLIA ID : [id number] [place], [place] TCO2, Arterial 30.6 mmol/L High 23 - 27 mmol/L [facility] [place], [place] Test Performed by [facility], [address] [place], [place] [id number] [place] [address], [place] Base Excess, Arterial 2.8 mmol/L -3 - 3 mmol/L [facility] [place], [place] HCO3, Arterial 27.7 mmol/L High 21 - 25 mmol/L [facility] [place], [place] Interpretation and review of laboratory results Abnormal [facility] [place], [place] Oxygen saturation in Blood 94.8 % Low 95 - 100 % [facility] [place] pCO2, Arterial 42.3 mm[Hg] 35 - 45 mm[Hg] [facility] [place], [place] pH, Arterial 7.424 [facility], [place] pO2, Arterial 73.3 mm[Hg] Low 80 - 100 mm[Hg] [facility] [place], [place] Sodium [Moles/Vol] 50 mmol/L [facility] [place], [place] Comment on above: Performed by CLIA ID : [id number] [place], [place] TCO2, Arterial 29 mmol/L High 23 - 27 mmol/L [facility], [place] Test Performed by [facility], [address] [place], [place] [address] [facility], [place] Phosphoruson 10-25-2020 Phosphate [Mass/Vol] 2.9 mg/dL 2.5 - 4 .5 mg/dL [facility], [place] VL LOWER EXTREMITY BILATERAL VENOUS DUPLEXon 10-25-2020 [facility] -------- Lower Extremity Venous Duplex Report Patient Kevin, : 1955 Study 10/24/2020 Name: Joseph De Anda () Date: Patient [id number] Age: 64 Account: [id number] ID: Gender: M Loc: 222 BP: Ordering Physician: Issa Conteh Pets Salesperson: Maxine Sanchez RVT Interpreting Physician: Tigre Soriano MD -------- Location: [facility] -------- Indications: Edema right entire leg. Edema left entire leg. Pneumonia due to Covid. -------- CRITICAL RESULTS: A critical finding, was reported to Neo by Zeke Sanchez , on 10/24/2020 , at 02:00 PM. Correct read-back was verified. -------- Conclusions 1. Acute deep vein thrombosis noted in the right peroneal veins, right posterior tibial veins, right gastrocnemius veins, right soleal vein, left popliteal vein, left peroneal veins, left posterior tibial veins, left gastrocnemius veins, and left soleal vein. 2. Acute superficial vein thrombosis noted in the right small saphenous vein. -------- History: Risk factors: Age over 65 years. -------- Study data: Complete lower extremity venous duplex evaluation. Grayscale 2D imaging, color Doppler imaging, and spectral Doppler analysis. Location: Vascular laboratory. Procedure: A vascular evaluation was performed with the patient in the supine position. Images were obtained using a [employer] E9 vascular ultrasound machine. -------- Venous flow and imaging: + +-- +----- ---+ -------+ +Location +Overall +Thrombus+Properties + + +-- +----- ---+ -------+ +R CFV +Patent +--------+Normal phasicity; + + + + +spontaneous; normal + + + + +augmentation; + + + + +compressible + + +-- +----- ---+ -------+ +R saphenofemoral +Patent +--------+Compressibl e + +junction + + + + + +-- +----- ---+ -------+ +R profunda +Patent +--------+ + +femoral + + + + + +-- +----- ---+ -------+ +R FV - prox. +Patent +--------+Compressibl e + + +-- +----- ---+ -------+ +R FV - mid +Patent +--------+Normal phasicity; + + + + +spontaneous; normal + + + + +augmentation; + + + + +compressible + + +-- +----- ---+ -------+ +R FV - distal +Patent +--------+Compressibl e + + +-- +----- ---+ -------+ +R popliteal +Patent +--------+Normal phasicity; + + + + +spontaneous; normal + + + + +augmentation; + + + + +compressible + + +-- +----- ---+ -------+ +R gastrocnemius +Likely occluded +Acute +Noncompressible + + +-- +----- ---+ -------+ +R PTV +Likely occluded +Acute +Noncompressible + + +-- +----- ---+ -------+ +R peroneal +Likely occluded +Acute +Noncompressible + + +-- +----- ---+ -------+ +R soleal +Likely occluded +Acute +Noncompressible + + +-- +----- ---+ -------+ +R GSV +Patent +--------+Compressibl e + + +-- +----- ---+ -------+ +R SSV +Likely occluded +Acute +Noncompressible + + +-- +----- ---+ -------+ +L CFV +Patent +--------+Normal phasicity; + + + + +spontaneous; normal + + + + +augmentation; + + + + +compressible + + +-- +----- ---+ -------+ +L saphenofemoral +Patent +--------+Compressibl e + +junction + + + + + +-- +----- ---+ -------+ +L profunda +Patent +--------+ + +femoral + + + + + +-- +----- ---+ -------+ +L FV - prox. +Patent +--------+Compressibl e + + +-- +----- ---+ -------+ +L FV - mid +Patent +--------+Normal phasicity; + + + + +spontaneous; normal + + + + +augmentation; + + + + +compressible + + +-- +----- ---+ -------+ +L FV - distal +Patent +--------+Compressibl e + + +-- +----- ---+ -------+ +L popliteal +Partially +Acute +Partially compressible + + +occluded + + + + +-- +----- ---+ -------+ +L gastrocnemius +Likely occluded +Acute +Noncompressible + + +-- +----- ---+ -------+ +L PTV +Likely occluded +Acute +Noncompressible + + +-- +----- ---+ -------+ +L peroneal +Likely occluded +Acute +Noncompressible + + +-- +----- ---+ -------+ +L soleal +Likely occluded +Acute +Noncompressible + + +-- +----- ---+ -------+ +L GSV +Patent +--------+Compressibl e + + +-- +----- ---+ -------+ Prepared and electronically signed by Tigre Soriano MD 10/25/2020 11:55 [facility] [place], [place] Antoine Billingsley Incoming Cardiology Results From [facility] - 10/25/2020 11:56 AM EST [facility] -------- Lower Extremity Venous Duplex Report Patient Kevin, : 1955 Study 10/24/2020 Name: Joseph De Anda () Date: Patient [id number] Age: 64 Account: [id number] ID: Gender: M Loc: 222 BP: Ordering Physician: Issa Conteh Pets Salesperson: Maxine Sanchez RVT Interpreting Physician: Tigre Soriano MD -------- Location: [facility] -------- Indications: Edema right entire leg. Edema left entire leg. Pneumonia due to Covid. -------- CRITICAL RESULTS: A critical finding, was reported to Neo by Zeke Sanchez , on 10/24/2020 , at 02:00 PM. Correct read-back was verified. -------- Conclusions 1. Acute deep vein thrombosis noted in the right peroneal veins, right posterior tibial veins, right gastrocnemius veins, right soleal vein, left popliteal vein, left peroneal veins, left posterior tibial veins, left gastrocnemius veins, and left soleal vein. 2. Acute superficial vein thrombosis noted in the right small saphenous vein. -------- History: Risk factors: Age over 65 years. -------- Study data: Complete lower extremity venous duplex evaluation. Grayscale 2D imaging, color Doppler imaging, and spectral Doppler analysis. Location: Vascular laboratory. Procedure: A vascular evaluation was performed with the patient in the supine position. Images were obtained using a [employer] E9 vascular ultrasound machine. -------- Venous flow and imaging: + +-- +----- ---+ -------+ +Location +Overall +Thrombus+Properties + + +-- +----- ---+ -------+ +R CFV +Patent +--------+Normal phasicity; + + + + +spontaneous; normal + + + + +augmentation; + + + + +compressible + + +-- +----- ---+ -------+ +R saphenofemoral +Patent +--------+Compressibl e + +junction + + + + + +-- +----- ---+ -------+ +R profunda +Patent +--------+ + +femoral + + + + + +-- +----- ---+ -------+ +R FV - prox. +Patent +--------+Compressibl e + + +-- +----- ---+ -------+ +R FV - mid +Patent +--------+Normal phasicity; + + + + +spontaneous; normal + + + + +augmentation; + + + + +compressible + + +-- +----- ---+ -------+ +R FV - distal +Patent +--------+Compressibl e + + +-- +----- ---+ -------+ +R popliteal +Patent +--------+Normal phasicity; + + + + +spontaneous; normal + + + + +augmentation; + + + + +compressible + + +-- +----- ---+ -------+ +R gastrocnemius +Likely occluded +Acute +Noncompressible + + +-- +----- ---+ -------+ +R PTV +Likely occluded +Acute +Noncompressible + + +-- +----- ---+ -------+ +R peroneal +Likely occluded +Acute +Noncompressible + + +-- +----- ---+ -------+ +R soleal +Likely occluded +Acute +Noncompressible + + +-- +----- ---+ -------+ +R GSV +Patent +--------+Compressibl e + + +-- +----- ---+ -------+ +R SSV +Likely occluded +Acute +Noncompressible + + +-- +----- ---+ -------+ +L CFV +Patent +--------+Normal phasicity; + + + + +spontaneous; normal + + + + +augmentation; + + + + +compressible + + +-- +----- ---+ -------+ +L saphenofemoral +Patent +--------+Compressibl e + +junction + + + + + +-- +----- ---+ -------+ +L profunda +Patent +--------+ + +femoral + + + + + +-- +----- ---+ -------+ +L FV - prox. +Patent +--------+Compressibl e + + +-- +----- ---+ -------+ +L FV - mid +Patent +--------+Normal phasicity; + + + + +spontaneous; normal + + + + +augmentation; + + + + +compressible + + +-- +----- ---+ -------+ +L FV - distal +Patent +--------+Compressibl e + + +-- +----- ---+ -------+ +L popliteal +Partially +Acute +Partially compressible + + +occluded + + + + +-- +----- ---+ -------+ +L gastrocnemius +Likely occluded +Acute +Noncompressible + + +-- +----- ---+ -------+ +L PTV +Likely occluded +Acute +Noncompressible + + +-- +----- ---+ -------+ +L peroneal +Likely occluded +Acute +Noncompressible + + +-- +----- ---+ -------+ +L soleal +Likely occluded +Acute +Noncompressible + + +-- +----- ---+ -------+ +L GSV +Patent +--------+Compressibl e + + +-- +----- ---+ -------+ Prepared and electronically signed by Tigre Soriano MD 10/25/2020 11:55 [facility] [place] Add On Lab Teston 10-24-2020 Sodium [Moles/Vol] Accepted [place] Comment on above: Specimen available & acceptable for analysis. Test Performed by [facility], [address], [place], [place] [address] [place] Basic Metabolic Panelon -0 Anion gap [Moles/Vol] 7 mmol/L [place] Calcium [Mass/Vol] 8.1 mg/dL Low 8.4 - 10. 4 mg/dL [place] Chloride [Moles/Vol] 101 mmol/L 98 - 10 7 mmol/L [place] CO2 [Moles/Vol] 29 mmol/L 22 - 30 mmol/L [place] Creatinine [Mass/Vol] 0.68 mg/dL 0.52 - 1.25 mg/dL [place] EGFR IF NonAfrican [place] >90.0 >60 mL/min [place] Comment on above: KDIGO guidelines pro vide the following GFR categories: Stage GFR(ml/min/1.73 m2) Terms G1 >=90 Normal or high G2 60-89 Mildly decreased* G3a 45-59 Mildly to moderately decreased G3b 30-44 Moderately to severely decreased G4 15-29 Severely decreased G5 <15 Kidney failure *Relative to young adult level. In the absence of evidence of kidney damage, neither GFR category G1 nor G2 fulfill the criteria for CKD. The CKD-EPI equation is validated in individuals 18 years of age and older. Currently the best equation for estimating glomerular filtration rate (GFR) from serum creatinine in children is the Bedside Vasquez equation. It is less accurate in patients with extremes of muscle mass, restriction of dietary protein, ingestion of creatine, extra-renal metabolism of creatinine, or treatment with medications that affect renal tubular creatinine secretion. GFR/1.73 sq M predicted among blacks MDRD (S/P/Bld) [Vol rate/Area] mL/min/{1.73_m2} >60 mL/min [place] Glucose [Mass/Vol] 185 mg/dL High 70 - 100 mg/dL [place] Interpretation and review of laboratory results Abnormal [place] Potassium [Moles/Vol] 4.5 mmol/L 3.5 - 5.1 mmol/L [place] Sodium [Moles/Vol] 137 mmol/L 135 - 145 mmol/L [place] Urea nitrogen [Mass/Vol] 28 mg/dL High 7 - 20 mg/dL [place] Test Performed by [facility], [address], [place], [place] [address] [place] C-Reactive Proteinon 021 CRP [Mass/Vol] 240.1 mg/L [place] 0 - 6 mg/L [place] Comment on above: . Interpretation and review of laboratory results Abnormal [place] Test Performed by [facility], [address], [place], [place] [address] [place] CBC Auto Differentialon Absolute Baso # 0.0 10*3/uL 0 - 0.2 10*3/uL [place] Absolute Neut # 8.7 10*3/uL High 1.8 - 7 10*3/uL [place] Basophils/100 WBC (Bld) 0.1 % 0 - 2 % [place] Eosinophils (Bld) [#/Vol] 0.0 10*3/uL 0 - 0.5 10*3/uL [place] Eosinophils/100 WBC (Bld) 0.1 % Low 1 - 6 % [place] Erythrocyte distribution width (RBC) [Ratio] 14.5 % 11.5 - 14.5 % [place] Granulocytes/100 WBC (Bld) 93.9 % High 40 - 80 % [place] Hematocrit (Bld) [Volume fraction] 35.7 % Low 40 - 52 % [place] Hemoglobin (Bld) [Mass/Vol] 11.9 g/dL Low 13 - 18 g/dL [place] Interpretation and review of laboratory results Abnormal [place] Lymphocytes (Bld) [#/Vol] 0.3 10*3/uL Low 1 - 4.3 10*3/uL [place] Lymphocytes/100 WBC (Bld) 3.1 % Low 20 - 40 % [place] MCH (RBC) [Entitic mass] 30.4 pg 26 - 34 pg [place] MCHC (RBC) [Mass/Vol] 33.3 % 32 - 36 % [place] MCV (RBC) [Entitic vol] 91.1 fL 80 - 98 fL [place] Monocytes (Bld) [#/Vol] 0.3 10*3/uL 0 - 0.8 10*3/uL [place] Monocytes/100 WBC (Bld) 2.8 % 2 - 10 % [place] Platelet mean volume (Bld) [Entitic vol] 7.8 fL 7.4 - 10.4 fL [place] Platelets (Bld) [#/Vol] 199 10*3/uL 140 - 440 10*3/uL [place] RBC (Bld) [#/Vol] 3.92 10*6/uL Low 4.4 - 5.9 10*6/uL [place] WBC (Bld) [#/Vol] 9.2 10*3/uL 3.6 - 10.7 10*3/uL [place] Test Performed by [facility], [address] [place], [place] [id number] [place] [address] Calcium, Ionizedon 1 Interpretation and review of laboratory results Abnormal [place] Ionized Ca 4.40 mg/dL 4.3 - 5.2 mg/dL [place] pH (Bld) 7.28 [pH] Low [place] Test Performed by [facility], [address] [place], [place] [address] [place] Comprehensive Metabolic Pane l w/ Reflex to MGon 10-24-2020 Albumin [Mass/Vol] 2.9 g/dL Low 3.5 - 5 g/dL [place] ALP [Catalytic activity/Vol] 81 U/L 38 - 126 U/L [place] ALT [Catalytic activity/Vol] 35 U/L 0 - 49 U/L [place] Comment on above: The ALT test is perf ormed by an updated assay method. Please note that the reference intervals have been changed and are now sex specific. Anion gap [Moles/Vol] 6 mmol/L [place] AST [Catalytic activity/Vol] 54 U/L High 15 - 46 U/L [place] Bilirubin Ql (U) 1.3 mg/dL 0.2 - 1.3 mg/dL [place] Calcium [Mass/Vol] 8.0 mg/dL Low 8.4 - 10. 4 mg/dL [place] Chloride [Moles/Vol] 103 mmol/L 98 - 10 7 mmol/L [place] CO2 [Moles/Vol] 29 mmol/L 22 - 30 mmol/L [place] Creatinine [Mass/Vol] 0.69 mg/dL 0.52 - 1.25 mg/dL [place] EGFR IF NonAfrican [place] >90.0 >60 mL/min [place] Comment on above: KDIGO guidelines pro vide the following GFR categories: Stage GFR(ml/min/1.73 m2) Terms G1 >=90 Normal or high G2 60-89 Mildly decreased* G3a 45-59 Mildly to moderately decreased G3b 30-44 Moderately to severely decreased G4 15-29 Severely decreased G5 <15 Kidney failure *Relative to young adult level. In the absence of evidence of kidney damage, neither GFR category G1 nor G2 fulfill the criteria for CKD. The CKD-EPI equation is validated in individuals 18 years of age and older. Currently the best equation for estimating glomerular filtration rate (GFR) from serum creatinine in children is the Bedside Vasquez equation. It is less accurate in patients with extremes of muscle mass, restriction of dietary protein, ingestion of creatine, extra-renal metabolism of creatinine, or treatment with medications that affect renal tubular creatinine secretion. GFR/1.73 sq M predicted among blacks MDRD (S/P/Bld) [Vol rate/Area] mL/min/{1.73_m2} >60 mL/min [place] Glucose [Mass/Vol] 141 mg/dL High 70 - 100 mg/dL [place] Potassium [Moles/Vol] 4.6 mmol/L 3.5 - 5.1 mmol/L [place] Protein [Mass/Vol] 6.1 g/dL Low 6.3 - 8.2 g/dL [place] Sodium [Moles/Vol] 139 mmol/L 135 - 145 mmol/L [place] Urea nitrogen [Mass/Vol] 26 mg/dL High 7 - 20 mg/dL [place] D-Dimer, Quantitativeon D-Dimer, Quant >35.20 High 0 - 0.5 mg/L [place], [place] Comment on above: [employer] D-Dimer va lues of <0.50 mg/L FEU can be used in combination with a pre-test probability model (e.g. Well's) to exclude pulmonary embolism (PE) disease, as well as an aid in the diagnosis of deep vein thrombosis (DVT). Interpretation and review of laboratory results Abnormal [place] Test Performed by [facility], [address] [place], [place] [id number] [place] [address] Ferritinon 10-24-2020 Ferritin [Mass/Vol] 616 ng/mL High 18 - 464 ng/mL [place] Interpretation and review of laboratory results Abnormal [place] Test Performed by [facility], [address] [place], [place], [place] [address] [place] [address] Lactate Dehydrogenaseon LD 714 U/L High 120 - 246 U/L [place] Magnesiumon 10-24-2020 Magnesium [Mass/Vol] 2.0 mg/dL 1.6 - 2 .3 mg/dL [place] Otheron 10-24-2020 Interpretation and review of laboratory results Abnormal [place] Test Performed by [facility], [address] [place], [place] [id number] [place] [address] POCT Arterialon 10-24-2020 Base Excess, Arterial 3.6 mmol/L High -3 - 3 mmol/L [place] HCO3, Arterial 28.0 mmol/L High 21 - 25 mmol/L [place] Interpretation and review of laboratory results Abnormal [place] Oxygen saturation in Blood 94.4 % Low 95 - 100 % [facility] [place], [place] pCO2, Arterial 40.5 mm[Hg] 35 - 45 mm[Hg] [facility] [place] pH, Arterial 7.448 [facility], [place] pO2, Arterial 69.5 mm[Hg] Low 80 - 100 mm[Hg] [facility] [place] Sodium [Moles/Vol] 50 mmol/L [facility], [place] Comment on above: Performed by [facility] ID : [id number] [place], [place] TCO2, Arterial 29.2 mmol/L High 23 - 27 mmol/L [facility] [place] Test Performed by [facility], [address] [place], [place] [address] [facility], [place] Base Excess, Arterial 1.8 mmol/L -3 - 3 mmol/L [facility] [place] HCO3, Arterial 27.8 mmol/L High 21 - 25 mmol/L [facility], [place] Interpretation and review of laboratory results Abnormal [facility], [place] Oxygen saturation in Blood 99.7 % 95 - 100 % [facility] [place] pCO2, Arterial 48.8 mm[Hg] High 35 - 45 mm[Hg] [facility] [place] pH, Arterial 7.364 [facility], [place] pO2, Arterial 203.6 mm[Hg] High 80 - 100 mm[Hg] [facility] [place], [place] Sodium [Moles/Vol] 60 mmol/L [facility] [place], [place] Comment on above: Performed by [facility] ID : [id number] [place] TCO2, Arterial 29.3 mmol/L High 23 - 27 mmol/L [facility] [place] Test Performed by [facility], [address] [place] [address] [facility] [place], [place] Base Excess, Arterial -0.6 mmol/L -3 - 3 mmol/L [facility] [place] HCO3, Arterial 27.3 mmol/L High 21 - 25 mmol/L [facility] [place] Interpretation and review of laboratory results Abnormal [facility], [place] Oxygen saturation in Blood 99.7 % 95 - 100 % [facility] [place] pCO2, Arterial 57.2 mm[Hg] High 35 - 45 mm[Hg] [place] pH, Arterial 7.287 [place] pO2, Arterial 226.0 mm[Hg] High 80 - 100 mm[Hg] [place] TCO2, Arterial 29.1 mmol/L High 23 - 27 mmol/L [place] Comment on above: Performed by [facility] ID : [id number] [place], [place] Test Performed by [facility], [address] [place], [place] [address] [place] Phosphoruson 10-24-2020 Interpretation and review of laboratory results Abnormal [place] Phosphate [Mass/Vol] 4.7 mg/dL High 2.5 - 4 .5 mg/dL [place] Test Performed by [facility], [address] [place] [address] [place] Procalcitoninon 10-24-2020 Interpretation and review of laboratory results Abnormal [place] Procalcitonin 0.35 ng/mL Abnormal <0.10 [place], [place] Sodium [Moles/Vol] See Below [place] Comment on above: PCT <0.50 = Low risk of severe sepsis and/or septic shock. PCT >2.00 = High risk of severe sepsis and/or septic shock. Test Performed by [facility], [address] [place] [id number] [place] XR CHEST PORTABLEon 10-24-19 [facility] Incoming Radiology Results From [facility] - 10/24/2020 6:02 AM EST Patient Name: JOSEPH BROWN Diagnostic Radiology ACCESSION EXAM DATE/TIME PROCEDURE ORDERING PROVIDER [id number] 10/24/2020 03:56 EST CR Chest Portable AMARILIS JOHNSON AMBER A CPT code 31186 Reason For Exam (CR Chest Portable) ETT placement Report PORTABLE CHEST 3:38 AM CLINICAL INDICATION: Respiratory distress TECHNIQUE: Portable AP COMPARISON: CTA from five days ago FINDINGS: Exam quality: EKG leads obscure small portions of the chest. Heart size is normal. Endotracheal tube is noted with its tip 4.5 cm above the enzo. Scattered ill-defined groundglass type opacities are noted throughout the lungs. Costophrenic angles are sharp. The osseous structures are unremarkable. IMPRESSION: Endotracheal tube in adequate position PORTABLE CHEST 3:42 AM CLINICAL INDICATION: Nasogastric tube placement. TECHNIQUE: Portable AP COMPARISON: Four minutes prior FINDINGS: Endotracheal tube is noted along with a nasogastric tube. The tube extends into the region of the gastric body. Extensive groundglass opacities are again noted. IMPRESSION: Nasogastric tube in position PORTABLE CHEST 5:03 AM CLINICAL INDICATION: Central venous catheter placement TECHNIQUE: Portable AP COMPARISON: 75 minutes prior FINDINGS: Diagnostic Radiology Report Endotracheal tube is noted along the nasogastric tube. A new right jugular venous catheter is noted with its tip in the region of the superior vena cava. There is no pneumothorax. Extensive groundglass type opacities are again noted. IMPRESSION: Central venous catheter in adequate position without pneumothorax Report Dictated on Workstation: [email or web address] --- Final --- Dictating Physician: MD CUNNINGHAM JEFFREY Signed Date and Time: 10/24/2020 6:00 am Signed by: MD CUNNINGHAM JEFFREY Transcribed Date and Time: 10/24/2020 6:02 [place] Patient Name: JOSEPH BROWN [facility]#: [id number] Diagnostic Radiology ACCESSION EXAM DATE/TIME PROCEDURE ORDERING PROVIDER [id number] 10/24/2020 03:56 EST CR Chest Portable ACIERNO, MANAGER MACHINE, PILAR A CPT code 53484 Reason For Exam (CR Chest Portable) ETT placement Report PORTABLE CHEST 3:38 AM CLINICAL INDICATION: Respiratory distress TECHNIQUE: Portable AP COMPARISON: CTA from five days ago FINDINGS: Exam quality: EKG leads obscure small portions of the chest. Heart size is normal. Endotracheal tube is noted with its tip 4.5 cm above the enzo. Scattered ill-defined groundglass type opacities are noted throughout the lungs. Costophrenic angles are sharp. The osseous structures are unremarkable. IMPRESSION: Endotracheal tube in adequate position PORTABLE CHEST 3:42 AM CLINICAL INDICATION: Nasogastric tube placement. TECHNIQUE: Portable AP COMPARISON: Four minutes prior FINDINGS: Endotracheal tube is noted along with a nasogastric tube. The tube extends into the region of the gastric body. Extensive groundglass opacities are again noted. IMPRESSION: Nasogastric tube in position PORTABLE CHEST 5:03 AM CLINICAL INDICATION: Central venous catheter placement TECHNIQUE: Portable AP COMPARISON: 75 minutes prior FINDINGS: Diagnostic Radiology Report Endotracheal tube is noted along the nasogastric tube. A new right jugular venous catheter is noted with its tip in the region of the superior vena cava. There is no pneumothorax. Extensive groundglass type opacities are again noted. IMPRESSION: Central venous catheter in adequate position without pneumothorax Report Dictated on Workstation: [email or web address] --- Final --- Dictating Physician: MD CUNNINGHAM JEFFREY Signed Date and Time: 10/24/2020 6:00 am Signed by: MD CUNNINGHAM JEFFREY Transcribed Date and Time: 10/24/2020 6:02 [place] [id number] Radiology ACCESSION EXAM DATE/TIME PROCEDURE ORDERING PROVIDER [id number] 10/24/2020 03:57 EST CR Chest Portable MD CONTEH MATTHEW CPT code 18081 Reason For Exam (CR Chest Portable) dyspnea Report PORTABLE CHEST 3:38 AM CLINICAL INDICATION: Respiratory distress TECHNIQUE: Portable AP COMPARISON: CTA from five days ago FINDINGS: Exam quality: EKG leads obscure small portions of the chest. Heart size is normal. Endotracheal tube is noted with its tip 4.5 cm above the enzo. Scattered ill-defined groundglass type opacities are noted throughout the lungs. Costophrenic angles are sharp. The osseous structures are unremarkable. IMPRESSION: Endotracheal tube in adequate position PORTABLE CHEST 3:42 AM CLINICAL INDICATION: Nasogastric tube placement. TECHNIQUE: Portable AP COMPARISON: Four minutes prior FINDINGS: Endotracheal tube is noted along with a nasogastric tube. The tube extends into the region of the gastric body. Extensive groundglass opacities are again noted. IMPRESSION: Nasogastric tube in position PORTABLE CHEST 5:03 AM CLINICAL INDICATION: Central venous catheter placement TECHNIQUE: Portable AP COMPARISON: 75 minutes prior FINDINGS: Diagnostic Radiology Report Endotracheal tube is noted along the nasogastric tube. A new right jugular venous catheter is noted with its tip in the region of the superior vena cava. There is no pneumothorax. Extensive groundglass type opacities are again noted. IMPRESSION: Central venous catheter in adequate position without pneumothorax Report Dictated on Workstation: [email or web address] --- Final --- Dictating Physician: MD CUNNINGHAM JEFFREY Signed Date and Time: 10/24/2020 6:00 am Signed by: MD CUNNINGHAM JEFFREY Transcribed Date and Time: 10/24/2020 6:01 [facility], [place], [place] Incoming Radiology Results From [facility] - 10/24/2020 6:02 AM EST Patient Name: JOSEPH BROWN [facility]#: [id number] Diagnostic Radiology ACCESSION EXAM DATE/TIME PROCEDURE ORDERING PROVIDER [id number] 10/24/2020 03:57 EST CR Chest Portable MD CONTEH MATTHEW CPT code 86378 Reason For Exam (CR Chest Portable) dyspnea Report PORTABLE CHEST 3:38 AM CLINICAL INDICATION: Respiratory distress TECHNIQUE: Portable AP COMPARISON: CTA from five days ago FINDINGS: Exam quality: EKG leads obscure small portions of the chest. Heart size is normal. Endotracheal tube is noted with its tip 4.5 cm above the enzo. Scattered ill-defined groundglass type opacities are noted throughout the lungs. Costophrenic angles are sharp. The osseous structures are unremarkable. IMPRESSION: Endotracheal tube in adequate position PORTABLE CHEST 3:42 AM CLINICAL INDICATION: Nasogastric tube placement. TECHNIQUE: Portable AP COMPARISON: Four minutes prior FINDINGS: Endotracheal tube is noted along with a nasogastric tube. The tube extends into the region of the gastric body. Extensive groundglass opacities are again noted. IMPRESSION: Nasogastric tube in position PORTABLE CHEST 5:03 AM CLINICAL INDICATION: Central venous catheter placement TECHNIQUE: Portable AP COMPARISON: 75 minutes prior FINDINGS: Diagnostic Radiology Report Endotracheal tube is noted along the nasogastric tube. A new right jugular venous catheter is noted with its tip in the region of the superior vena cava. There is no pneumothorax. Extensive groundglass type opacities are again noted. IMPRESSION: Central venous catheter in adequate position without pneumothorax Report Dictated on Workstation: [email or web address] --- Final --- Dictating Physician: MD CUNNINGHAM JEFFREY Signed Date and Time: 10/24/2020 6:00 am Signed by: MD CUNNINGHAM JEFFREY Transcribed Date and Time: 10/24/2020 6:01 [facility], [place] Jose Cruz, [place] Incoming Radiology Results From [facility] - 10/24/2020 6:02 AM EST Patient Name: JOSEPH BROWN Diagnostic Radiology ACCESSION EXAM DATE/TIME PROCEDURE ORDERING PROVIDER [id number] 10/24/2020 05:26 EST CR Chest Portable ACIERNO, AMARILIS, PILAR A CPT code 51660 Reason For Exam (CR Chest Portable) Line placement Report PORTABLE CHEST 3:38 AM CLINICAL INDICATION: Respiratory distress TECHNIQUE: Portable AP COMPARISON: CTA from five days ago FINDINGS: Exam quality: EKG leads obscure small portions of the chest. Heart size is normal. Endotracheal tube is noted with its tip 4.5 cm above the enzo. Scattered ill-defined groundglass type opacities are noted throughout the lungs. Costophrenic angles are sharp. The osseous structures are unremarkable. IMPRESSION: Endotracheal tube in adequate position PORTABLE CHEST 3:42 AM CLINICAL INDICATION: Nasogastric tube placement. TECHNIQUE: Portable AP COMPARISON: Four minutes prior FINDINGS: Endotracheal tube is noted along with a nasogastric tube. The tube extends into the region of the gastric body. Extensive groundglass opacities are again noted. IMPRESSION: Nasogastric tube in position PORTABLE CHEST 5:03 AM CLINICAL INDICATION: Central venous catheter placement TECHNIQUE: Portable AP COMPARISON: 75 minutes prior FINDINGS: Diagnostic Radiology Report Endotracheal tube is noted along the nasogastric tube. A new right jugular venous catheter is noted with its tip in the region of the superior vena cava. There is no pneumothorax. Extensive groundglass type opacities are again noted. 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 Heart size is normal. Endotracheal tube is noted with its tip 4.5 cm above the enzo. Scattered ill-defined groundglass type opacities are noted throughout the lungs. Costophrenic angles are sharp. The osseous structures are unremarkable. IMPRESSION: Endotracheal tube in adequate position PORTABLE CHEST 3:42 AM CLINICAL INDICATION: Nasogastric tube placement. TECHNIQUE: Portable AP COMPARISON: Four minutes prior FINDINGS: Endotracheal tube is noted along with a nasogastric tube. The tube extends into the region of the gastric body. Extensive groundglass opacities are again noted. IMPRESSION: Nasogastric tube in position PORTABLE CHEST 5:03 AM CLINICAL INDICATION: Central venous catheter placement TECHNIQUE: Portable AP COMPARISON: 75 minutes prior FINDINGS: Diagnostic Radiology Report Endotracheal tube is noted along the nasogastric tube. A new right jugular venous catheter is noted with its tip in the region of the superior vena cava. There is no pneumothorax. Extensive groundglass type opacities are again noted. IMPRESSION: Central venous catheter in adequate position without pneumothorax Report Dictated on Workstation: [email or web address]-[email or web address] --- Final --- Dictating Physician: MD CUNNINGHAM JEFFREY Signed Date and Time: 10/24/2020 6:00 am Signed by: MD CUNNINGHAM JEFFREY Transcribed Date and Time: 10/24/2020 6:01 [place] C-Reactive Proteinon 021 CRP [Mass/Vol] 134.2 mg/L High 0 - 6 mg/L [place] Comment on above: . Interpretation and review of laboratory results Abnormal [place] Test Performed by [facility], [address] [place], [place], [place] [address] [place] CBC Auto Differentialon Absolute Baso # 0.0 10*3/uL 0 - 0.2 10*3/uL [place] Absolute Neut # 7.9 10*3/uL High 1.8 - 7 10*3/uL [place] Basophils/100 WBC (Bld) 0.1 % 0 - 2 % [place] Eosinophils (Bld) [#/Vol] 0.0 10*3/uL 0 - 0.5 10*3/uL [place] Eosinophils/100 WBC (Bld) 0.0 % Low 1 - 6 % [place] Erythrocyte distribution width (RBC) [Ratio] 14.5 % 11.5 - 14.5 % [place] Granulocytes/100 WBC (Bld) 87.7 % High 40 - 80 % [place] Hematocrit (Bld) [Volume fraction] 37.2 % Low 40 - 52 % [place] Hemoglobin (Bld) [Mass/Vol] 12.5 g/dL Low 13 - 18 g/dL [place] Interpretation and review of laboratory results Abnormal [place] Lymphocytes (Bld) [#/Vol] 0.5 10*3/uL Low 1 - 4.3 10*3/uL [place] Lymphocytes/100 WBC (Bld) 5.3 % Low 20 - 40 % [place] MCH (RBC) [Entitic mass] 30.5 pg 26 - 34 pg [place] MCHC (RBC) [Mass/Vol] 33.5 % 32 - 36 % [place] MCV (RBC) [Entitic vol] 91.0 fL 80 - 98 fL [place] Monocytes (Bld) [#/Vol] 0.6 10*3/uL 0 - 0.8 10*3/uL [place] Monocytes/100 WBC (Bld) 6.9 % 2 - 10 % [place] Platelet mean volume (Bld) [Entitic vol] 8.5 fL 7.4 - 10.4 fL [place] Platelets (Bld) [#/Vol] 314 10*3/uL 140 - 440 10*3/uL [place] RBC (Bld) [#/Vol] 4.09 10*6/uL Low 4.4 - 5.9 10*6/uL [place] WBC (Bld) [#/Vol] 9.0 10*3/uL 3.6 - 10.7 10*3/uL [place] Test Performed by [facility], [address] [place], [address] Comprehensive Metabolic Pane l w/ Reflex to MGon 10-23-2020 Albumin [Mass/Vol] 3.1 g/dL Low 3.5 - 5 g/dL [place] ALP [Catalytic activity/Vol] 66 U/L 38 - 126 U/L [place] ALT [Catalytic activity/Vol] 34 U/L 0 - 49 U/L [place] Comment on above: The ALT test is perf ormed by an updated assay method. Please note that the reference intervals have been changed and are now sex specific. Anion gap [Moles/Vol] 7 mmol/L [place] AST [Catalytic activity/Vol] 40 U/L 15 - 46 U/L [place] Bilirubin Ql (U) 0.9 mg/dL 0.2 - 1.3 mg/dL [place] Calcium [Mass/Vol] 8.5 mg/dL 8.4 - 10. 4 mg/dL [place] Chloride [Moles/Vol] 104 mmol/L 98 - 10 7 mmol/L [place] CO2 [Moles/Vol] 27 mmol/L 22 - 30 mmol/L [place] Creatinine [Mass/Vol] 0.72 mg/dL 0.52 - 1.25 mg/dL [place] EGFR IF NonAfrican [place] >90.0 >60 mL/min [place] Comment on above: KDIGO guidelines pro vide the following GFR categories: Stage GFR(ml/min/1.73 m2) Terms G1 >=90 Normal or high G2 60-89 Mildly decreased* G3a 45-59 Mildly to moderately decreased G3b 30-44 Moderately to severely decreased G4 15-29 Severely decreased G5 <15 Kidney failure *Relative to young adult level. In the absence of evidence of kidney damage, neither GFR category G1 nor G2 fulfill the criteria for CKD. The CKD-EPI equation is validated in individuals 18 years of age and older. Currently the best equation for estimating glomerular filtration rate (GFR) from serum creatinine in children is the Bedside Vasquez equation. It is less accurate in patients with extremes of muscle mass, restriction of dietary protein, ingestion of creatine, extra-renal metabolism of creatinine, or treatment with medications that affect renal tubular creatinine secretion. GFR/1.73 sq M predicted among blacks MDRD (S/P/Bld) [Vol rate/Area] mL/min/{1.73_m2} >60 mL/min [place] Glucose [Mass/Vol] 106 mg/dL High 70 - 100 mg/dL [place] Potassium [Moles/Vol] 4.7 mmol/L 3.5 - 5.1 mmol/L [place] Protein [Mass/Vol] 6.4 g/dL 6.3 - 8.2 g/dL [place] Sodium [Moles/Vol] 138 mmol/L 135 - 145 mmol/L [place] Urea nitrogen [Mass/Vol] 24 mg/dL High 7 - 20 mg/dL [place] D-Dimer, Quantitativeon D-Dimer, Quant >35.20 High 0 - 0.5 mg/L [place] Comment on above: [employer] D-Dimer va lues of <0.50 mg/L FEU can be used in combination with a pre-test probability model (e.g. Well's) to exclude pulmonary embolism (PE) disease, as well as an aid in the diagnosis of deep vein thrombosis (DVT). Interpretation and review of laboratory results Abnormal [place] Test Performed by [facility], [address] [place] [address] [place] Ferritinon 10-23-2020 Ferritin [Mass/Vol] 552 ng/mL High 18 - 464 ng/mL [place] Interpretation and review of laboratory results Abnormal [place] Test Performed by [facility] [facility], [address], [place], [place] [address] [place] Lactate Dehydrogenaseon LD 434 U/L High 120 - 246 U/L [facility], [place] Magnesiumon 10-23-2020 Magnesium [Mass/Vol] 2.2 mg/dL 1.6 - 2 .3 mg/dL [place] Otheron 10-23-2020 Interpretation and review of laboratory results Abnormal [place] Test Performed by [facility], [address], [place], [place] [address] [place] Phosphoruson 10-23-2020 Interpretation and review of laboratory results Abnormal [place] Phosphate [Mass/Vol] 4.6 mg/dL High 2.5 - 4 .5 mg/dL [place] Test Performed by [facility], [address], [place], [place] [address] [place] C-Reactive Proteinon 021 CRP [Mass/Vol] 175.3 mg/L High 0 - 6 mg/L [place] Comment on above: . CBC Auto Differentialon Absolute Baso # 0.0 10*3/uL 0 - 0.2 10*3/uL [place] Absolute Neut # 6.7 10*3/uL 1.8 - 7 10*3/uL [place] Basophils/100 WBC (Bld) 0.2 % 0 - 2 % [place] Eosinophils (Bld) [#/Vol] 0.0 10*3/uL 0 - 0.5 10*3/uL [place] Eosinophils/100 WBC (Bld) 0.0 % Low 1 - 6 % [place] Erythrocyte distribution width (RBC) [Ratio] 14.4 % 11.5 - 14.5 % [place] Granulocytes/100 WBC (Bld) 86.2 % High 40 - 80 % [place] Hematocrit (Bld) [Volume fraction] 33.5 % Low 40 - 52 % [place] Hemoglobin (Bld) [Mass/Vol] 11.4 g/dL Low 13 - 18 g/dL [place] Lymphocytes (Bld) [#/Vol] 0.4 10*3/uL Low 1 - 4.3 10*3/uL [place] Lymphocytes/100 WBC (Bld) 4.6 % Low 20 - 40 % [place] MCH (RBC) [Entitic mass] 30.7 pg 26 - 34 pg [place] MCHC (RBC) [Mass/Vol] 34.2 % 32 - 36 % [place] MCV (RBC) [Entitic vol] 89.9 fL 80 - 98 fL [place] Monocytes (Bld) [#/Vol] 0.7 10*3/uL 0 - 0.8 10*3/uL [place] Monocytes/100 WBC (Bld) 9.0 % 2 - 10 % [place] Platelet mean volume (Bld) [Entitic vol] 7.9 fL 7.4 - 10.4 fL [place], [place] Platelets (Bld) [#/Vol] 264 10*3/uL 140 - 440 10*3/uL [place] RBC (Bld) [#/Vol] 3.73 10*6/uL Low 4.4 - 5.9 10*6/uL [place] WBC (Bld) [#/Vol] 7.8 10*3/uL 3.6 - 10.7 10*3/uL [place] Comprehensive Metabolic Pane l w/ Reflex to MGon 10-22-2020 Albumin [Mass/Vol] 3.1 g/dL Low 3.5 - 5 g/dL [place] ALP [Catalytic activity/Vol] 58 U/L 38 - 126 U/L [place] ALT [Catalytic activity/Vol] 30 U/L 0 - 49 U/L [place] Comment on above: The ALT test is perf ormed by an updated assay method. Please note that the reference intervals have been changed and are now sex specific. Anion gap [Moles/Vol] 6 mmol/L [place] AST [Catalytic activity/Vol] 44 U/L 15 - 46 U/L [place] Bilirubin Ql (U) 0.6 mg/dL 0.2 - 1.3 mg/dL [place] Calcium [Mass/Vol] 8.3 mg/dL Low 8.4 - 10. 4 mg/dL [place] Chloride [Moles/Vol] 106 mmol/L 98 - 10 7 mmol/L [place] CO2 [Moles/Vol] 26 mmol/L 22 - 30 mmol/L [place] Creatinine [Mass/Vol] 0.6 mg/dL 0.52 - 1.25 mg/dL [place] EGFR IF NonAfrican [place] >90.0 >60 mL/min [place] Comment on above: KDIGO guidelines pro vide the following GFR categories: Stage GFR(ml/min/1.73 m2) Terms G1 >=90 Normal or high G2 60-89 Mildly decreased* G3a 45-59 Mildly to moderately decreased G3b 30-44 Moderately to severely decreased G4 15-29 Severely decreased G5 <15 Kidney failure *Relative to young adult level. In the absence of evidence of kidney damage, neither GFR category G1 nor G2 fulfill the criteria for CKD. The CKD-EPI equation is validated in individuals 18 years of age and older. Currently the best equation for estimating glomerular filtration rate (GFR) from serum creatinine in children is the Bedside Vasquez equation. It is less accurate in patients with extremes of muscle mass, restriction of dietary protein, ingestion of creatine, extra-renal metabolism of creatinine, or treatment with medications that affect renal tubular creatinine secretion. GFR/1.73 sq M predicted among blacks MDRD (S/P/Bld) [Vol rate/Area] mL/min/{1.73_m2} >60 mL/min [place] Glucose [Mass/Vol] 161 mg/dL High 70 - 100 mg/dL [place] Potassium [Moles/Vol] 4.8 mmol/L 3.5 - 5.1 mmol/L [place] Protein [Mass/Vol] 6.3 g/dL 6.3 - 8.2 g/dL [place] Sodium [Moles/Vol] 138 mmol/L 135 - 145 mmol/L [place] Urea nitrogen [Mass/Vol] 24 mg/dL High 7 - 20 mg/dL [place] D-Dimer, Quantitativeon D-Dimer, Quant 5.34 mg/L High 0 - 0.5 mg/L [place], [place] Comment on above: [employer] D-Dimer va lues of <0.50 mg/L FEU can be used in combination with a pre-test probability model (e.g. Well's) to exclude pulmonary embolism (PE) disease, as well as an aid in the diagnosis of deep vein thrombosis (DVT). Ferritinon 10-22-2020 Ferritin [Mass/Vol] 589 ng/mL High 18 - 464 ng/mL [place] Lactate Dehydrogenaseon LD 417 U/L High 120 - 246 U/L [place], [place] Magnesiumon 10-22-2020 Magnesium [Mass/Vol] 2.5 mg/dL High 1.6 - 2 .3 mg/dL [place] Otheron 10-22-2020 Interpretation and review of laboratory results Abnormal [place] Test Performed by [facility], [address] [place] [address] [address] [place], [place], [place] [address] [place] Phosphoruson 10-22-2020 Phosphate [Mass/Vol] 4.4 mg/dL 2.5 - 4 .5 mg/dL [place] C-Reactive Proteinon 021 CRP [Mass/Vol] 222.3 mg/L High 0 - 6 mg/L [place] Comment on above: . CBC Auto Differentialon Absolute Baso # 0.0 10*3/uL 0 - 0.2 10*3/uL [place] Absolute Neut # 6.6 10*3/uL 1.8 - 7 10*3/uL [place] Basophils/100 WBC (Bld) 0.1 % 0 - 2 % [place] Eosinophils (Bld) [#/Vol] 0.0 10*3/uL 0 - 0.5 10*3/uL [place] Eosinophils/100 WBC (Bld) 0.0 % Low 1 - 6 % [place] Erythrocyte distribution width (RBC) [Ratio] 14.9 % High 11.5 - 14.5 % [place] Granulocytes/100 WBC (Bld) 85.6 % High 40 - 80 % [place] Hematocrit (Bld) [Volume fraction] 34.2 % Low 40 - 52 % [place] Hemoglobin (Bld) [Mass/Vol] 11.2 g/dL Low 13 - 18 g/dL [place] Interpretation and review of laboratory results Abnormal [place] Lymphocytes (Bld) [#/Vol] 0.4 10*3/uL Low 1 - 4.3 10*3/uL [place] Lymphocytes/100 WBC (Bld) 5.6 % Low 20 - 40 % [place] MCH (RBC) [Entitic mass] 29.6 pg 26 - 34 pg [place] MCHC (RBC) [Mass/Vol] 32.8 % 32 - 36 % [place], [place] MCV (RBC) [Entitic vol] 90.3 fL 80 - 98 fL [place] Monocytes (Bld) [#/Vol] 0.7 10*3/uL 0 - 0.8 10*3/uL [place] Monocytes/100 WBC (Bld) 8.7 % 2 - 10 % [place] Platelet mean volume (Bld) [Entitic vol] 7.8 fL 7.4 - 10.4 fL [place], [place] Platelets (Bld) [#/Vol] 277 10*3/uL 140 - 440 10*3/uL [place] RBC (Bld) [#/Vol] 3.78 10*6/uL Low 4.4 - 5.9 10*6/uL [place] WBC (Bld) [#/Vol] 7.7 10*3/uL 3.6 - 10.7 10*3/uL [place] Test Performed by [facility], [address] [place], [place] [address] [place] Comprehensive Metabolic Pane l w/ Reflex to MGon 10-21-2020 Albumin [Mass/Vol] 3.2 g/dL Low 3.5 - 5 g/dL [place] ALP [Catalytic activity/Vol] 58 U/L 38 - 126 U/L [place] ALT [Catalytic activity/Vol] 24 U/L 0 - 49 U/L [place] Comment on above: The ALT test is perf ormed by an updated assay method. Please note that the reference intervals have been changed and are now sex specific. Anion gap [Moles/Vol] 5 mmol/L [place], [place] AST [Catalytic activity/Vol] 37 U/L 15 - 46 U/L [place] Bilirubin Ql (U) 0.8 mg/dL 0.2 - 1.3 mg/dL [place] Calcium [Mass/Vol] 8.2 mg/dL Low 8.4 - 10. 4 mg/dL [place] Chloride [Moles/Vol] 106 mmol/L 98 - 10 7 mmol/L [place] CO2 [Moles/Vol] 25 mmol/L 22 - 30 mmol/L [place] Creatinine [Mass/Vol] 0.68 mg/dL 0.52 - 1.25 mg/dL [place], [place] EGFR IF NonAfrican [place] >90.0 >60 mL/min [place] Comment on above: KDIGO guidelines pro vide the following GFR categories: Stage GFR(ml/min/1.73 m2) Terms G1 >=90 Normal or high G2 60-89 Mildly decreased* G3a 45-59 Mildly to moderately decreased G3b 30-44 Moderately to severely decreased G4 15-29 Severely decreased G5 <15 Kidney failure *Relative to young adult level. In the absence of evidence of kidney damage, neither GFR category G1 nor G2 fulfill the criteria for CKD. The CKD-EPI equation is validated in individuals 18 years of age and older. Currently the best equation for estimating glomerular filtration rate (GFR) from serum creatinine in children is the Bedside Vasquez equation. It is less accurate in patients with extremes of muscle mass, restriction of dietary protein, ingestion of creatine, extra-renal metabolism of creatinine, or treatment with medications that affect renal tubular creatinine secretion. GFR/1.73 sq M predicted among blacks MDRD (S/P/Bld) [Vol rate/Area] mL/min/{1.73_m2} >60 mL/min [place] Glucose [Mass/Vol] 148 mg/dL High 70 - 100 mg/dL [place] Potassium [Moles/Vol] 5.0 mmol/L 3.5 - 5.1 mmol/L [place] Protein [Mass/Vol] 6.3 g/dL 6.3 - 8.2 g/dL [place] Sodium [Moles/Vol] 136 mmol/L 135 - 145 mmol/L [place] Urea nitrogen [Mass/Vol] 25 mg/dL High 7 - 20 mg/dL [place] D-Dimer, Quantitativeon D-Dimer, Quant 0.6 mg/L High 0 - 0.5 mg/L [place], [place] Comment on above: [employer] D-Dimer va lues of <0.50 mg/L FEU can be used in combination with a pre-test probability model (e.g. Well's) to exclude pulmonary embolism (PE) disease, as well as an aid in the diagnosis of deep vein thrombosis (DVT). Interpretation and review of laboratory results Abnormal [place] Test Performed by [facility], [address], [place], [place] [address] [place] Ferritinon 10-21-2020 Ferritin [Mass/Vol] 602 ng/mL High 18 - 464 ng/mL [place] Interpretation and review of laboratory results Abnormal [place] Test Performed by [facility], [address], [place], [place] [address] [place] Lactate Dehydrogenaseon LD 416 U/L High 120 - 246 U/L [place], [place] Magnesiumon 10-21-2020 Magnesium [Mass/Vol] 2.6 mg/dL High 1.6 - 2 .3 mg/dL [place] Otheron 10-21-2020 Interpretation and review of laboratory results Abnormal [place] Test Performed by [facility], [address], [place], [place] [address] [place] Phosphoruson 10-21-2020 Phosphate [Mass/Vol] 3.5 mg/dL 2.5 - 4 .5 mg/dL [place] Add On Lab Teston 10-20-2020 Sodium [Moles/Vol] Accepted [place] Comment on above: Specimen available & acceptable for analysis. Test Performed by [facility], [address], [place], [place] [address] [place] C-Reactive Proteinon 021 CRP [Mass/Vol] 240.7 mg/L High 0 - 6 mg/L [place] Comment on above: . Interpretation and review of laboratory results Abnormal [place] Test Performed by [facility], [address], [place], [place] [address] [place] CBC Auto Differentialon Absolute Baso # 0.0 10*3/uL 0 - 0.2 10*3/uL [place] Absolute Neut # 10.0 10*3/uL High 1.8 - 7 10*3/uL [place] Basophils/100 WBC (Bld) 0.1 % 0 - 2 % [place] Eosinophils (Bld) [#/Vol] 0.0 10*3/uL 0 - 0.5 10*3/uL [place] Eosinophils/100 WBC (Bld) 0.0 % Low 1 - 6 % [place] Erythrocyte distribution width (RBC) [Ratio] 14.6 % High 11.5 - 14.5 % [place] Granulocytes/100 WBC (Bld) 90.0 % High 40 - 80 % [place] Hematocrit (Bld) [Volume fraction] 36.8 % Low 40 - 52 % [place] Hemoglobin (Bld) [Mass/Vol] 12.4 g/dL Low 13 - 18 g/dL [place] Interpretation and review of laboratory results Abnormal [place] Lymphocytes (Bld) [#/Vol] 0.5 10*3/uL Low 1 - 4.3 10*3/uL [place] Lymphocytes/100 WBC (Bld) 4.4 % Low 20 - 40 % [place] MCH (RBC) [Entitic mass] 30.4 pg 26 - 34 pg [place] MCHC (RBC) [Mass/Vol] 33.7 % 32 - 36 % [place] MCV (RBC) [Entitic vol] 90.1 fL 80 - 98 fL [place] Monocytes (Bld) [#/Vol] 0.6 10*3/uL 0 - 0.8 10*3/uL [place] Monocytes/100 WBC (Bld) 5.5 % 2 - 10 % [place] Platelet mean volume (Bld) [Entitic vol] 8.0 fL 7.4 - 10.4 fL [place], [place] Platelets (Bld) [#/Vol] 237 10*3/uL 140 - 440 10*3/uL [place] RBC (Bld) [#/Vol] 4.09 10*6/uL Low 4.4 - 5.9 10*6/uL [place] WBC (Bld) [#/Vol] 11.1 10*3/uL High 3.6 - 10.7 10*3/uL [place] Test Performed by [facility], [address] [place], [place] [address] [place] Comprehensive Metabolic Pane l w/ Reflex to MGon 10-20-2020 Albumin [Mass/Vol] 3.4 g/dL Low 3.5 - 5 g/dL [place] ALP [Catalytic activity/Vol] 61 U/L 38 - 126 U/L [place] ALT [Catalytic activity/Vol] 28 U/L 0 - 49 U/L [place] Comment on above: The ALT test is perf ormed by an updated assay method. Please note that the reference intervals have been changed and are now sex specific. Anion gap [Moles/Vol] 7 mmol/L [place] AST [Catalytic activity/Vol] 44 U/L 15 - 46 U/L [place] Bilirubin Ql (U) 0.9 mg/dL 0.2 - 1.3 mg/dL [place] Calcium [Mass/Vol] 8.0 mg/dL Low 8.4 - 10. 4 mg/dL [place] Chloride [Moles/Vol] 103 mmol/L 98 - 10 7 mmol/L [place] CO2 [Moles/Vol] 27 mmol/L 22 - 30 mmol/L [place] Creatinine [Mass/Vol] 0.9 mg/dL 0.52 - 1.25 mg/dL [place] EGFR IF NonAfrican [place] 88.1 mL/min >60 [place] Comment on above: KDIGO guidelines pro vide the following GFR categories: Stage GFR(ml/min/1.73 m2) Terms G1 >=90 Normal or high G2 60-89 Mildly decreased* G3a 45-59 Mildly to moderately decreased G3b 30-44 Moderately to severely decreased G4 15-29 Severely decreased G5 <15 Kidney failure *Relative to young adult level. In the absence of evidence of kidney damage, neither GFR category G1 nor G2 fulfill the criteria for CKD. The CKD-EPI equation is validated in individuals 18 years of age and older. Currently the best equation for estimating glomerular filtration rate (GFR) from serum creatinine in children is the Bedside Vasquez equation. It is less accurate in patients with extremes of muscle mass, restriction of dietary protein, ingestion of creatine, extra-renal metabolism of creatinine, or treatment with medications that affect renal tubular creatinine secretion. GFR/1.73 sq M predicted among blacks MDRD (S/P/Bld) [Vol rate/Area] mL/min/{1.73_m2} >60 mL/min [place] Glucose [Mass/Vol] 148 mg/dL High 70 - 100 mg/dL [place] Potassium [Moles/Vol] 4.3 mmol/L 3.5 - 5.1 mmol/L [place] Protein [Mass/Vol] 6.7 g/dL 6.3 - 8.2 g/dL [place] Sodium [Moles/Vol] 137 mmol/L 135 - 145 mmol/L [place] Urea nitrogen [Mass/Vol] 24 mg/dL High 7 - 20 mg/dL [place] D-Dimer, Quantitativeon D-Dimer, Quant 0.76 mg/L High 0 - 0.5 mg/L [place] Comment on above: [employer] D-Dimer va lues of <0.50 mg/L FEU can be used in combination with a pre-test probability model (e.g. Well's) to exclude pulmonary embolism (PE) disease, as well as an aid in the diagnosis of deep vein thrombosis (DVT). Interpretation and review of laboratory results Abnormal [place] Test Performed by [facility], [address] 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 M: RE : 1955 Requested By: CANDELARIO LOMELI Order Number: [id number] Reading MD: Lady Lemus Measurements Intervals [place] Rate: 83 P: 0 MS: 137 QRS: 7 QRSD: 94 T: 24 QT: 376 QTc: 442 Interpretive Statements SINUS RHYTHM EARLY PRECORDIAL R/S TRANSITION BASELINE WANDER IN LEAD(S) V2 Compared to ECG 10/16/2020 08:11:54 No significant changes Electronically Signed On 10-20-2020 13:53:25 EST by Lady Lemus [employer] [employer] [facility] Test Date: 2020-10-19 Pat Name: Joseph Brown Department: 01 Room: 222 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 [place], [place], [place] [id number] [place] [address], [place] Lactate Dehydrogenaseon LD 437 U/L High 120 - 246 U/L [facility] [place], [place] Magnesiumon 10-20-2020 Magnesium [Mass/Vol] 2.3 mg/dL 1.6 - 2 .3 mg/dL [facility], [place] Otheron 10-20-2020 Interpretation and review of laboratory results Abnormal [place] Test Performed by [facility], [address] [place], [address], [place] POCT Arterialon 10-20-2020 Base Excess, Arterial -1.7 mmol/L -3 - 3 mmol/L [place] HCO3, Arterial 22.0 mmol/L 21 - 25 mmol/L [place] Interpretation and review of laboratory results Abnormal [place] Oxygen saturation in Blood 98.2 % 95 - 100 % [place] pCO2, Arterial 33.1 mm[Hg] Low 35 - 45 mm[Hg] [facility], [place] pH, Arterial 7.431 [place] pO2, Arterial 104.4 mm[Hg] High 80 - 100 mm[Hg] [place] Sodium [Moles/Vol] 100 mmol/L [place] Comment on above: Performed by [facility] : [id number] [place], [place] TCO2, Arterial 23.1 mmol/L 23 - 27 mmol/L [place] Test Performed by [facility], [address] [place], [address], [place] Phosphoruson 10-20-2020 Phosphate [Mass/Vol] 2.9 mg/dL 2.5 - 4 .5 mg/dL [place] Test Performed by [facility], [address] [place], [place] [id number] [place] [address], [place] Procalcitoninon 10-20-2020 Interpretation and review of laboratory results Abnormal [place] Procalcitonin 0.23 ng/mL Abnormal <0.10 [facility], [place] Sodium [Moles/Vol] See Below [place] Comment on above: PCT <0.50 = Low risk of severe sepsis and/or septic shock. PCT >2.00 = High risk of severe sepsis and/or septic shock. Test Performed by [facility], [address] [place] [address] [place] Vitamin D 25 Hydroxyon 10-20 Interpretation and review of laboratory results Abnormal [place] Vit D, 25-Hydroxy 23 ng/mL Low 30 - 100 ng/mL [place] Comment on above: Therapy is based on measurement of Total 25-OHD with the following classification levels: Less than 20 ng/mL: Indicative of Vit D deficiency 20-30 ng/mL: Suggests Vit D insufficiency Optimal: Greater than or equal to 30 ng/mL Test performed by [employer], measuring Total Vitamin D, not individual fractions. Test Performed by [facility], [address] [place], [place] [address] [place] CTA CHEST W WO CONTRASTon Patient Name: JOSEPH BROWN Computed Tomography ACCESSION EXAM DATE/TIME PROCEDURE ORDERING PROVIDER [id number] 10/19/2020 18:48 EST CTA Chest w/ + w/o Parvez GREEN MICHAEL Contrast THOMAS CPT code 95594 Q9967 Reason For Exam (CTA Chest w/ + w/o Contrast) Increased oxygen requirement; Needs PE ruled out Report CT ANGIOGRAPHY CHEST: CLINICAL INDICATION: Shortness of breath. TECHNIQUE: Transaxial sequence from apices through the bases during dynamic intravenous infusion of 75 mL of contrast media, injected at a high flow rate. Multiplanar and 3D MIP reconstruction was performed concurrently on an independent viewing workstation. COMPARISON: CT chest on 08/06/2017 FINDINGS: Exam quality: Good contrast enhancement of the vasculature. Pulmonary Arteries: No filling defects identified throughout the main pulmonary arteries along with the lobar, and proximal segmental pulmonary arteries. Distal segmental and subsegmental pulmonary arteries are poorly visualized secondary to respiratory motion artifact. Aorta: No aortic dissection identified. Lungs: Diffuse bilateral groundglass and consolidative opacities concerning for multifocal pneumonia including COVID pneumonia.. No parenchymal or pleural-based mass. Pleural fluid: None. Heart: Mild to moderate pericardial effusion. Coronary artery calcifications. Normal heart size. Atherosclerotic calcification at the aortic valve.. Mediastinum/[place]: Mediastinal lymphadenopathy, likely reactive.. Soft tissues chest wall/Neck base: No abnormality identified. Upper abdomen: Cholecystectomy clips. Osseous structures: Multilevel degenerative changes of the imaged spine.. IMPRESSION: 1. No pulmonary embolus within the main, lobar or proximal segmental pulmonary arteries. Subsegmental and distal segmental pulmonary arteries are poorly Computed Tomography Report visualized secondary to respiratory motion artifact. 2. Diffuse bilateral groundglass and consolidative opacities concerning for multifocal pneumonia including COVID pneumonia.. 3. Mild to moderate pericardial effusion. Coronary artery calcifications. Report Dictated on --- Final --- Dictating Physician: MD KNOX NEIL Signed Date and Time: 10/19/2020 7:58 pm Signed by: MD KNOX NEIL Transcribed Date and Time: 10/19/2020 7:59 [place] Jose CruzAntoine Incoming Radiology Results From [facility] - 10/19/2020 7:59 PM EST [id number] Comput[facility] Tomography ACCESSION EXAM DATE/TIME PROCEDURE ORDERING PROVIDER [id number] 10/19/2020 18:48 EST CTA Chest w/ + w/o Parvez GREEN MICHAEL Contrast THOMAS CPT code 35677 Q9967 Reason For Exam (CTA Chest w/ + w/o Contrast) Increased oxygen requirement; Needs PE ruled out Report CT ANGIOGRAPHY CHEST: CLINICAL INDICATION: Shortness of breath. TECHNIQUE: Transaxial sequence from apices through the bases during dynamic intravenous infusion of 75 mL of contrast media, injected at a high flow rate. Multiplanar and 3D MIP reconstruction was performed concurrently on an independent viewing workstation. COMPARISON: CT chest on 08/06/2017 FINDINGS: Exam quality: Good contrast enhancement of the vasculature. Pulmonary Arteries: No filling defects identified throughout the main pulmonary arteries along with the lobar, and proximal segmental pulmonary arteries. Distal segmental and subsegmental pulmonary arteries are poorly visualized secondary to respiratory motion artifact. Aorta: No aortic dissection identified. Lungs: Diffuse bilateral groundglass and consolidative opacities concerning for multifocal pneumonia including COVID pneumonia.. No parenchymal or pleural-based mass. Pleural fluid: None. Heart: Mild to moderate pericardial effusion. Coronary artery calcifications. Normal heart size. Atherosclerotic calcification at the aortic valve.. Mediastinum/Yola: Mediastinal lymphadenopathy, likely reactive.. Soft tissues chest wall/Neck base: No abnormality identified. Upper abdomen: Cholecystectomy clips. Osseous structures: Multilevel degenerative changes of the imaged spine.. IMPRESSION: 1. No pulmonary embolus within the main, lobar or proximal segmental pulmonary arteries. Subsegmental and distal segmental pulmonary arteries are poorly Computed Tomography Report visualized secondary to respiratory motion artifact. 2. Diffuse bilateral groundglass and consolidative opacities concerning for multifocal pneumonia including COVID pneumonia.. 3. Mild to moderate pericardial effusion. Coronary artery calcifications. Report Dictated on --- Final --- Dictating Physician: MD KNOX NEIL Signed Date and Time: 10/19/2020 7:58 pm Signed by: MD KNOX NEIL Transcribed Date and Time: 10/19/2020 7:59 [place] Comprehensive Metabolic Pane [place] 10-19-2020 Albumin [Mass/Vol] 3.4 g/dL Low 3.5 - 5 g/dL [place] ALP [Catalytic activity/Vol] 58 U/L 38 - 126 U/L [place] ALT [Catalytic activity/Vol] 29 U/L 0 - 49 U/L [place] Comment on above: The ALT test is perf ormed by an updated assay method. Please note that the reference intervals have been changed and are now sex specific. Anion gap [Moles/Vol] 8 mmol/L [place] AST [Catalytic activity/Vol] 40 U/L 15 - 46 U/L [place] Bilirubin Ql (U) 0.9 mg/dL 0.2 - 1.3 mg/dL [place] Calcium [Mass/Vol] 7.9 mg/dL Low 8.4 - 10. 4 mg/dL [place] Chloride [Moles/Vol] 103 mmol/L 98 - 10 7 mmol/L [place] CO2 [Moles/Vol] 25 mmol/L 22 - 30 mmol/L [place] Creatinine [Mass/Vol] 0.9 mg/dL 0.52 - 1.25 mg/dL [place] EGFR IF NonAfrican [place] 88.1 mL/min >60 [place] Comment on above: KDIGO guidelines pro vide the following GFR categories: Stage GFR(ml/min/1.73 m2) Terms G1 >=90 Normal or high G2 60-89 Mildly decreased* G3a 45-59 Mildly to moderately decreased G3b 30-44 Moderately to severely decreased G4 15-29 Severely decreased G5 <15 Kidney failure *Relative to young adult level. In the absence of evidence of kidney damage, neither GFR category G1 nor G2 fulfill the criteria for CKD. The CKD-EPI equation is validated in individuals 18 years of age and older. Currently the best equation for estimating glomerular filtration rate (GFR) from serum creatinine in children is the Bedside Vasquez equation. It is less accurate in patients with extremes of muscle mass, restriction of dietary protein, ingestion of creatine, extra-renal metabolism of creatinine, or treatment with medications that affect renal tubular creatinine secretion. GFR/1.73 sq M predicted among blacks MDRD (S/P/Bld) [Vol rate/Area] mL/min/{1.73_m2} >60 mL/min [place] Glucose [Mass/Vol] 145 mg/dL High 70 - 100 mg/dL [place] Interpretation and review of laboratory results Abnormal [place] Potassium [Moles/Vol] 3.7 mmol/L 3.5 - 5.1 mmol/L [place] Protein [Mass/Vol] 6.5 g/dL 6.3 - 8.2 g/dL [place] Sodium [Moles/Vol] 135 mmol/L 135 - 145 mmol/L [place] Urea nitrogen [Mass/Vol] 19 mg/dL 7 - 20 mg/dL [place] Test Performed by [facility], [address], [place], [place] [address] [place] Hemogram (CBC) w/Auto Diffon 10-19-2020 Absolute Baso # 0.0 10*3/uL 0 - 0.2 10*3/uL [place] Absolute Neut # 8.2 10*3/uL High 1.8 - 7 10*3/uL [place] Basophils/100 WBC (Bld) 0.1 % 0 - 2 % [place] Eosinophils (Bld) [#/Vol] 0.0 10*3/uL 0 - 0.5 10*3/uL [place] Eosinophils/100 WBC (Bld) 0.0 % Low 1 - 6 % [place] Erythrocyte distribution width (RBC) [Ratio] 14.3 % 11.5 - 14.5 % [place] Granulocytes/100 WBC (Bld) 88.4 % High 40 - 80 % [place] Hematocrit (Bld) [Volume fraction] 36.3 % Low 40 - 52 % [place] Hemoglobin (Bld) [Mass/Vol] 12.1 g/dL Low 13 - 18 g/dL [place] Interpretation and review of laboratory results Abnormal [place] Lymphocytes (Bld) [#/Vol] 0.4 10*3/uL Low 1 - 4.3 10*3/uL [place] Lymphocytes/100 WBC (Bld) 4.3 % Low 20 - 40 % [place] MCH (RBC) [Entitic mass] 29.7 pg 26 - 34 pg [place] MCHC (RBC) [Mass/Vol] 33.3 % 32 - 36 % [place] MCV (RBC) [Entitic vol] 89.2 fL 80 - 98 fL [place] Monocytes (Bld) [#/Vol] 0.7 10*3/uL 0 - 0.8 10*3/uL [place] Monocytes/100 WBC (Bld) 7.2 % 2 - 10 % [place] Platelet mean volume (Bld) [Entitic vol] 8.3 fL 7.4 - 10.4 fL [place] Platelets (Bld) [#/Vol] 217 10*3/uL 140 - 440 10*3/uL [place] RBC (Bld) [#/Vol] 4.07 10*6/uL Low 4.4 - 5.9 10*6/uL [place] WBC (Bld) [#/Vol] 9.3 10*3/uL 3.6 - 10.7 10*3/uL [place] Test Performed by [facility], [address] [place], [address] Troponinon 10-19-2020 Interpretation and review of laboratory results Abnormal [place] Troponin I.cardiac [Mass/Vol] 0.601 ng/mL High 0 - 0.034 ng/mL [place] Comment on above: . Test Performed by [facility], [address] [place] [address] Interpretation and review of laboratory results Abnormal [place] Troponin I.cardiac [Mass/Vol] 0.726 ng/mL High 0 - 0.034 ng/mL [place] Comment on above: . Test Performed by [facility], [address] [place], [address] Interpretation and review of laboratory results Abnormal [place] Troponin I.cardiac [Mass/Vol] 0.922 ng/mL High 0 - 0.034 ng/mL [place] Comment on above: . Test Performed by [facility], [address] [place] [address] Troponin x1on 10-19-2020 Interpretation and review of laboratory results Abnormal [place] Troponin I.cardiac [Mass/Vol] 0.642 ng/mL High 0 - 0.034 ng/mL [place] Comment on above: . Test Performed by [facility], [address] [place] [address] XR CHEST PORTABLEon 10-19-19 Jos Ecruz, [facility] Incoming Radiology Results From [facility] - 10/19/2020 10:01 AM EST Patient Name: JOSEPH BROWN Diagnostic Radiology ACCESSION EXAM DATE/TIME PROCEDURE ORDERING PROVIDER [id number] 10/19/2020 09:34 EST CR Chest Portable [id number] CHAUDHRY CPT code 67538 Reason For Exam (CR Chest Portable) COVID +, hypoxia Report Portable chest 10/19/2020: Clinical Information: Covid positive. Findings: A single AP portable view of the chest was obtained at 934 hours. Comparison was made to the prior study 10/16/2020. The trachea is midline. The heart is not enlarged. There are now evolving infiltrates bilaterally more pronounced on the right than the left. Report Dictated on --- Final --- Dictating Physician: MD VALERO RISA Signed Date and Time: 10/19/2020 10:00 am Signed by: MD VALERO RISA Transcribed Date and Time: 10/19/2020 10:01 [place] Patient Name: JOSEPH BROWN Diagnostic Radiology ACCESSION EXAM DATE/TIME PROCEDURE ORDERING PROVIDER [id number] 10/19/2020 09:34 EST CR Chest Portable [id number] CHAUDHRY CPT code 31160 Reason For Exam (CR Chest Portable) COVID +, hypoxia Report Portable chest 10/19/2020: Clinical Information: Covid positive. Findings: A single AP portable view of the chest was obtained at 934 hours. Comparison was made to the prior study 10/16/2020. The trachea is midline. The heart is not enlarged. There are now evolving infiltrates bilaterally more pronounced on the right than the left. Report Dictated on --- Final --- Dictating Physician: MD VALERO RISA Signed Date and Time: 10/19/2020 10:00 am Signed by: MD VALERO RISA Transcribed Date and Time: 10/19/2020 10:01 [place] Basic Metabolic Panelon Anion gap [Moles/Vol] 6 mmol/L [place] Calcium [Mass/Vol] 8.4 mg/dL 8.4 - 10. 4 mg/dL [place] Chloride [Moles/Vol] 105 mmol/L 98 - 10 7 mmol/L [place] CO2 [Moles/Vol] 24 mmol/L 22 - 30 mmol/L [place] Creatinine [Mass/Vol] 0.67 mg/dL 0.52 - 1.25 mg/dL [place] EGFR IF NonAfrican [place] >90.0 >60 mL/min [place] Comment on above: KDIGO guidelines pro vide the following GFR categories: Stage GFR(ml/min/1.73 m2) Terms G1 >=90 Normal or high G2 60-89 Mildly decreased* G3a 45-59 Mildly to moderately decreased G3b 30-44 Moderately to severely decreased G4 15-29 Severely decreased G5 <15 Kidney failure *Relative to young adult level. In the absence of evidence of kidney damage, neither GFR category G1 nor G2 fulfill the criteria for CKD. The CKD-EPI equation is validated in individuals 18 years of age and older. Currently the best equation for estimating glomerular filtration rate (GFR) from serum creatinine in children is the Bedside Vasquez equation. It is less accurate in patients with extremes of muscle mass, restriction of dietary protein, ingestion of creatine, extra-renal metabolism of creatinine, or treatment with medications that affect renal tubular creatinine secretion. GFR/1.73 sq M predicted among blacks MDRD (S/P/Bld) [Vol rate/Area] mL/min/{1.73_m2} >60 mL/min [place] Glucose [Mass/Vol] 120 mg/dL High 70 - 100 mg/dL [place] Interpretation and review of laboratory results Abnormal [place] Potassium [Moles/Vol] 4.0 mmol/L 3.5 - 5.1 mmol/L [place] Sodium [Moles/Vol] 134 mmol/L Low 135 - 145 mmol/L [place] Urea nitrogen [Mass/Vol] 11 mg/dL 7 - 20 mg/dL [place] Test Performed by [facility], [address], [place], [place] [address] [place] Hemogram (CBC) w/Auto Diffon 10-16-2020 Absolute Baso # 0.0 10*3/uL 0 - 0.2 10*3/uL [place] Absolute Neut # 3.4 10*3/uL 1.8 - 7 10*3/uL [place] Basophils/100 WBC (Bld) 0.6 % 0 - 2 % [place] Eosinophils (Bld) [#/Vol] 0.0 10*3/uL 0 - 0.5 10*3/uL [place] Eosinophils/100 WBC (Bld) 0.5 % Low 1 - 6 % [place] Erythrocyte distribution width (RBC) [Ratio] 14.2 % 11.5 - 14.5 % [place] Granulocytes/100 WBC (Bld) 72.7 % 40 - 80 % [place] Hematocrit (Bld) [Volume fraction] 42.4 % 40 - 52 % [place] Hemoglobin (Bld) [Mass/Vol] 14.0 g/dL 13 - 18 g/dL [place] Interpretation and review of laboratory results Abnormal [place] Lymphocytes (Bld) [#/Vol] 0.9 10*3/uL Low 1 - 4.3 10*3/uL [place] Lymphocytes/100 WBC (Bld) 19.1 % Low 20 - 40 % [place] MCH (RBC) [Entitic mass] 29.5 pg 26 - 34 pg [place] MCHC (RBC) [Mass/Vol] 33.0 % 32 - 36 % [place] MCV (RBC) [Entitic vol] 89.4 fL 80 - 98 fL [place] Monocytes (Bld) [#/Vol] 0.3 10*3/uL 0 - 0.8 10*3/uL [place] Monocytes/100 WBC (Bld) 7.1 % 2 - 10 % [place] Platelet mean volume (Bld) [Entitic vol] 8.0 fL 7.4 - 10.4 fL [place] Platelets (Bld) [#/Vol] 138 10*3/uL Low 140 - 440 10*3/uL [place] RBC (Bld) [#/Vol] 4.74 10*6/uL 4.4 - 5.9 10*6/uL [place] WBC (Bld) [#/Vol] 4.7 10*3/uL 3.6 - 10.7 10*3/uL [place] Test Performed by [facility], [address], [place], [place] [address] [place] Troponin x1on 10-16-2020 Troponin I.cardiac [Mass/Vol] ng/mL 0 - 0.034 ng/mL [place] Comment on above: . Test Performed by [facility], [address], [place], [place] [address] [place] XR CHEST PORTABLEon 10-16-19 Jose Cruz, [facility] Incoming Radiology Results From [facility] - 10/16/2020 8:47 AM EST Patient Name: JOSEPH BROWN Diagnostic Radiology ACCESSION EXAM DATE/TIME PROCEDURE ORDERING PROVIDER [id number] 10/16/2020 08:34 EST CR Chest Portable MD LOPEZ AUSTIN CPT code 03207 Reason For Exam (CR Chest Portable) cough, covid + Report CHEST X-RAY AP CLINICAL INDICATION: Cough AP radiograph of the chest was obtained. COMPARISON: None FINDINGS: The cardiac silhouette is within normal limits. No focal consolidation or opacification is seen within the lungs. No pleural effusion or pneumothorax is identified. Degenerative changes of the thoracic spine are noted. IMPRESSION: No acute cardiopulmonary process. Report Dictated on --- Final --- Dictating Physician: MD GUERRA JASON Signed Date and Time: 10/16/2020 8:46 am Signed by: MD GUERRA JASON Transcribed Date and Time: 10/16/2020 8:47 [place] Patient Name: JOSEPH BROWN Diagnostic Radiology ACCESSION EXAM DATE/TIME PROCEDURE ORDERING PROVIDER [id number] 10/16/2020 08:34 EST CR Chest Portable MD LOPEZ AUSTIN CPT code 35810 Reason For Exam (CR Chest Portable) cough, covid + Report CHEST X-RAY AP CLINICAL INDICATION: Cough AP radiograph of the chest was obtained. COMPARISON: None FINDINGS: The cardiac silhouette is within normal limits. No focal consolidation or opacification is seen within the lungs. No pleural effusion or pneumothorax is identified. Degenerative changes of the thoracic spine are noted. IMPRESSION: No acute cardiopulmonary process. Report Dictated on --- Final --- Dictating Physician: MD GUERRA JASON Signed Date and Time: 10/16/2020 8:46 am Signed by: MD GUERRA JASON Transcribed Date and Time: 10/16/2020 8:47 [place] EMG REPORTon 12-20-2019 William Correia MD - 12/20/2019 10:37 AM EST PATIENT: JOSEPH BROWN DATE OF SERVICE: 12/20/2019 ORDER NUMBER: DATE OF : 1955 AGE: 64 ADMITTING PHYSICIAN: Laquita Ding DO ATTENDING PHYSICIAN: Laquita Ding DO DICTATING PHYSICIAN: William Correia MD EMG REFERRING PHYSICIAN: Dr. Ding TEST #: [id number] and [id number]. A REPORT OF NERVE CONDUCTION STUDIES AND ELECTROMYOGRAPHY OF THE LEFT UPPER EXTREMITY LOCATION: Testing was conducted at [facility] as an outpatient. FINDINGS: Sensory nerve conduction studies disclosed a prolonged latency in the left median nerve, both with standard recording and palmar stimulation. The response amplitude of the left median nerve was decreased. Response latencies and amplitudes were normal in the left ulnar and radial nerves. Motor nerve conduction studies disclosed a prolonged distal latency in the left median nerve. The median response amplitude and conduction velocity were normal. The left ulnar motor response was normal in distal latency, amplitude and conduction velocity. The left median F-wave was borderline prolonged, and the left ulnar F-wave was normal. Needle EMG examination disclosed normal spontaneous activity and voluntary motor unit potentials in the left biceps, deltoid, triceps, pronator teres, flexor carpi radialis and ulnaris, extensor indicis proprius, 1st dorsal interosseous and abductor pollicis brevis. INTERPRETATION: Nerve conduction studies and electromyography of the left upper limb disclosed evidence consistent with a left median neuropathy at or distal to the wrist (carpal tunnel syndrome), moderate in degree electrically. Clinical correlation is advised. [place] Job ID: [id number] DOD:12/20/2019 09:39 A FRANK/pedrito DOT:12/20/2019 10:37 A Job Number: [id number] Document Number: [id number] ###### cc: Laquita Ding DO [facility] [address] [facility] [address] [facility] AAA Screeningon 9 [facility] Abdominal Aortic Duplex Report Patient Name: Joseph Brown : 1955 Study Date: 06/05/2019 Neteu (63yrs) Age: 63 Account: [id number] Gender: M Loc: BP: Ordering: Laquita Ding Technologist: Ordering Physician: Laquita Ding Pets Salesperson: Dina Talbot Interpreting Physician: Brody Stewart Location: [facility] INDICATIONS: AAA screening Z87.891. Remote former smoker, no DM, no HTN Patient is has no symptoms of Claudication CONCLUSIONS 1. Normal aorto iliac duplex IMPRESSIONS: - Aorta patent, normal caliber - Bilateral iliac arteries patent, normal caliber STUDY DATA: Abdominal aorta duplex. Birthdate: Patient birthdate: 1955. Age: Patient is 63 yr old. Sex: Gender: male. Ethnicity: Ethnicity: white. Doppler flow study including spectral analysis, color and mendosa scale imaging. Patient status: Outpatient. Procedure: A vascular evaluation was performed. The images were obtained using a [employer] E9 vascular ultrasound machine. Arterial flow: + + +-------+- ---------+--------+ !Location !V sys !AP cm !Transverse!Comment ! + + +-------+- ---------+--------+ !Abd aorta - prox !79 cm/s !2.65 cm!2.65 cm !--------! + + +-------+- ---------+--------+ !Abd aorta - mid !76.8 cm/s !2.1 cm !1.97 cm !--------! + + +-------+- ---------+--------+ !Abd aorta - distal !73.5 cm/s !1.68 cm!1.66 cm !--------! + + +-------+- ---------+--------+ !Right common iliac !69.1 cm/s !1.19 cm!1.25 cm !--------! + + +-------+- ---------+--------+ !Right internal iliac! !---- ---! !non vis.! + + +-------+- ---------+--------+ !Right external iliac!102.9 cm/s!-------!-------- --!--------! + + +-------+- ---------+--------+ !Left common iliac !74.4 cm/s !1.09 cm!1.18 cm !--------! + + +-------+- ---------+--------+ !Left internal iliac ! !-------!- ---------!non vis.! + + +-------+- ---------+--------+ !Left external iliac !105.1 cm/s!-------!-------- --!--------! + + +-------+- ---------+--------+ Electronically signed by: Brody Stewart [id number] [facility] [place] [place] Jose Cruz, [facility] Incoming Cardiology Results From Kathleen/Torrey - 06/05/2019 1:10 PM EDT [facility] --- Abdominal Aortic Duplex Report Patient Name: Joseph Brown : 1955 Study Date: 06/05/2019 Neetu (63yrs) Age: 63 Account: [id number] Gender: M Loc: BP: Ordering: Laquita Ding Technologist: Ordering Physician: Laquita Ding Pets Salesperson: Dina Talbot Interpreting Physician: Brody Stewart --- Location: [facility] --- INDICATIONS: AAA screening Z87.891. Remote former smoker, no DM, no HTN Patient is has no symptoms of Claudication --- CONCLUSIONS 1. Normal aorto iliac duplex --- IMPRESSIONS: - Aorta patent, normal caliber - Bilateral iliac arteries patent, normal caliber --- STUDY DATA: Abdominal aorta duplex. Birthdate: Patient birthdate: 1955. Age: Patient is 63 yr old. Sex: Gender: male. Ethnicity: Ethnicity: white. Doppler flow study including spectral analysis, color and mendosa scale imaging. Patient status: Outpatient. Procedure: A vascular evaluation was performed. The images were obtained using a [employer] E9 vascular ultrasound machine. --- Arterial flow: + + +-------+- ---------+--------+ !Location !V sys !AP cm !Transverse!Comment ! + + +-------+- ---------+--------+ !Abd aorta - prox !79 cm/s !2.65 cm!2.65 cm !--------! + + +-------+- ---------+--------+ !Abd aorta - mid !76.8 cm/s !2.1 cm !1.97 cm !--------! + + +-------+- ---------+--------+ !Abd aorta - distal !73.5 cm/s !1.68 cm!1.66 cm !--------! + + +-------+- ---------+--------+ !Right common iliac !69.1 cm/s !1.19 cm!1.25 cm !--------! + + +-------+- ---------+--------+ !Right internal iliac! !---- ---! !non vis.! + + +-------+- ---------+--------+ !Right external iliac!102.9 cm/s!-------!-------- --!--------! + + +-------+- ---------+--------+ !Left common iliac !74.4 cm/s !1.09 cm!1.18 cm !--------! + + +-------+- ---------+--------+ !Left internal iliac ! !-------!- ---------!non vis.! + + +-------+- ---------+--------+ !Left external iliac !105.1 cm/s!-------!-------- --!--------! + + +-------+- ---------+--------+ Electronically signed by: Brody Stewart [id number] [facility], [place] Vital Signs Date Time Vital Sign Value Performing Clinician Alba nelson 06-09-2025 15:04-0400 Body temperature 97.39 [degF] Marjorie Sears MD Work Phone: [facility] 06-09-2025 15:04-0400 Diastolic blood pressure 76 mm[Hg] Marjorie Sears MD Work Phone: [employer] 06-09-2025 15:04-0400 Heart rate 85 /min Marjorie Sears MD Work Phone: [facility] 06-09-2025 15:04-0400 Respiratory rate 19 /min Marjorie Sears MD Work Phone: [facility] [employer] 06-09-2025 15:04-0400 SaO2% (BldA) [Mass fraction] 96 % Marjorie Sears MD Work Phone: [facility] 06-09-2025 15:04-0400 Systolic blood pressure 137 mm[Hg] Marjorie Sears MD Work Phone: [facility] [employer] 05-22-2025 08:12-0400 Body temperature 96.91 [degF] Jacoby Glozman DO Work Phone: [facility] 05-22-2025 08:12-0400 Diastolic blood pressure 69 mm[Hg] Jacoby Glozman DO Work Phone: [facility] 05-22-2025 08:12-0400 Heart rate 74 /min Jacoby Glozman DO Work Phone: [facility] 05-22-2025 08:12-0400 Respiratory rate 20 /min Jacoby Glozman DO Work Phone: [facility] 05-22-2025 08:12-0400 SaO2% (BldA) [Mass fraction] 99 % Jacoby Glozman DO Work Phone: [facility] 05-22-2025 08:12-0400 Systolic blood pressure 122 mm[Hg] Jacoby Glozman DO Work Phone: [facility] 05-21-2025 02:06-0400 Body height 182.9 cm Jacoby Glozman DO Work Phone: [facility] 05-21-2025 02:06-0400 Body mass index (BMI) [Ratio] 31.87 kg/m2 Jacoby Glozman DO Work Phone: [facility] 05-21-2025 02:06-0400 Body weight 106.59 kg Jacoby Glozman DO Work Phone: [facility] [facility] 12-20-2024 11:18-0500 Diastolic blood pressure 65 mm[Hg] Cydney Alondra DO Work Phone: [facility] [facility] 12-20-2024 11:18-0500 Heart rate 73 /min Cydney Alondra DO Work Phone: [employer] 12-20-2024 11:18-0500 SaO2% (BldA) [Mass fraction] 98 % Cydney Alondra DO Work Phone: [facility] 12-20-2024 11:18-0500 Systolic blood pressure 118 mm[Hg] Cydney Cantu [employer] [employer] Work Phone: [facility] [facility] 12-20-2024 09:09-0500 Body height 185.4 cm Cydney Alondra [employer] [employer] Work Phone: [employer] [facility] 12-20-2024 09:09-0500 Body mass index (BMI) [Ratio] 31.66 kg/m2 Cydney [employer] Work Phone: [facility] 12-20-2024 09:09-0500 Body weight 108.86 kg Cydney Alondra DO Work Phone: [employer] 12-20-2024 09:09-0500 Respiratory rate 20 /min Cydney Alondra DO Work Phone: [facility] 11-04-2020 11:12-0500 Body Temperature 97.39 [degF] [facility] [place] 11-04-2020 11:12-0500 BP Diastolic 63 mm[Hg] [facility] , [place] 11-04-2020 11:12-0500 BP Systolic 105 mm[Hg] [facility] , [place] 11-04-2020 11:12-0500 Pulse (Heart Rate) 69 /min [facility], [place] 11-04-2020 11:12-0500 Pulse Oximetry 94 % [facility] , [place] 11-04-2020 11:12-0500 Respiratory Rate 18 /min [facility] [place] 11-04-2020 06:31-0500 BMI (Body Mass Index) 31.1 kg/m2 [facility], [place] 11-04-2020 06:31-0500 Body weight 104.01 kg [facility] , [place] 11-02-2020 15:27-0500 Height 182.9 cm Candelario Lomeli [facility] , [place] 10-16-2020 10:01-0500 BP Diastolic 70 mm[Hg] Fransisco [facility] , [place] 10-16-2020 10:01-0500 BP Systolic 129 mm[Hg] Fransisco [facility] , [place] 10-16-2020 10:01-0500 Pulse (Heart Rate) 87 /min [facility], [place] 10-16-2020 10:01-0500 Pulse Oximetry 97 % [facility] , [place] 10-16-2020 10:01-0500 Respiratory Rate 20 /min [facility], [place] 10-16-2020 07:56-0500 BMI (Body Mass Index) 32.28 kg/m2 Fransisco Lopez [place] 10-16-2020 07:56-0500 Body Temperature 99.19 [degF] Fransisco [facility], [place] 10-16-2020 07:56-0500 Body weight 107.[address] [facility] , [place] Encounters Encounter Date Encounter Type Care Provider Facility Start: 06-25-2025 ambulatory [facility] Facility: [facility] Start: 06-09-2025 End: 06-09-2025 Emergency department patient visit Marjorie Sears MD Work Phone: [facility] ED Comment on above: Laceration of right thumb without foreign body without damage to nail, initial encounter (Primary Dx) Start: 05-20-2025 End: 05-22-2025 ambulatory [facility] Start: 05-20-2025 End: 05-22-2025 Evaluation and management of inpatient Jacoby Sanders Work Phone: [facility] Medical Surgical Unit MSU 4S Comment on above: Dizziness (Primary D x) Start: 05-20-2025 End: 05-20-2025 Subsequent hospital visit by physician [facility] Non-Invasive Cardiology Comment on above: Arrived Start: 05-20-2025 End: 05-20-2025 Emergency department patient visit [facility] Start: 12-20-2024 End: 12-20-2024 Emergency department patient visit Cydney Cantu DO Work Phone: [facility] ED Comment on above: Sinusitis, unspecifi ed chronicity, unspecified location (Primary Dx); Vertigo Start: 08-28-2021 End: 08-28-2021 Subsequent hospital visit by physician Laquita Ding DO Work Phone: [facility] Comment on above: Arrived Start: 08-18-2021 End: 08-18-2021 Subsequent hospital visit by physician Laquita Ding DO Work Phone: [facility] Start: 08-11-2021 End: 08-11-2021 Subsequent hospital visit by physician Laquita Ding DO Work Phone: [facility] Start: 08-09-2021 End: 08-09-2021 Subsequent hospital visit by physician Laquita Ding DO Work Phone: [facility] Start: 08-04-2021 End: 08-04-2021 Subsequent hospital visit by physician Laquita Ding DO Work Phone: [facility] Start: 08-02-2021 End: 08-02-2021 Subsequent hospital visit by physician Laquita Ding DO Work Phone: [facility] Start: 07-28-2021 End: 07-28-2021 Subsequent hospital visit by physician Laquita Ding DO Work Phone: [facility] Start: 07-26-2021 End: 07-26-2021 Subsequent hospital visit by physician Laquita Ding DO Work Phone: [facility] Start: 07-23-2021 End: 07-23-2021 Subsequent hospital visit by physician Laquita Ding DO Work Phone: [facility] Start: 04-06-2021 End: 04-06-2021 Subsequent hospital visit by physician Carolina Francois MD Work Phone: [facility] Comment on above: Pneumonia due to COV ID-19 virus Start: 12-09-2020 End: 12-09-2020 Subsequent hospital visit by physician Venkat Grant Work Phone: [facility] Comment on above: Supraventricular tac hycardia (HCC); SVT (supraventricular tachycardia) (HCC) Pneumonia due to COV ID-19 virus Start: 10-19-2020 End: 11-04-2020 Evaluation and management of inpatient Candelario Lomeli Work Phone: [facility] Comment on above: Pneumonia due to COV ID-19 virus (Primary Dx); Elevated troponin Start: 10-16-2020 End: 10-16-2020 Emergency department patient visit Fransisco Lopez Work Phone: [facility] ED Comment on above: Cough (Primary Dx); COVID-19 Start: 12-20-2019 End: 12-20-2019 Subsequent hospital visit by physician Laquita Ding Work Phone: [facility] Neuro Comment on above: Arrived Start: 06-05-2019 End: 06-05-2019 Subsequent hospital visit by physician Laquita Ding Work Phone: [facility] Vascular Lab Comment on above: Arrived Procedures Date Procedure Procedure Detail Performing Clinician Start: 06-09-2025 ED LACERATION REPAIR An roxanne Carcamo DO Work Phone: Start: 05-22-2025 Lipid 1996 panel - S aisha or Plasma Jacoby Sanders DO Work Phone: Start: 05-22-2025 Comprehensive metabo lic panel José Antonio Woodruff MD Work Phone: Start: 05-22-2025 Lipid panel José Antonio Friedman MD Work Phone: Start: 05-21-2025 End: 05-21-2025 Mra head w/o contrst material 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 Work Phone: Start: 05-21-2025 Assay of troponin quantitative Jacoby Blasman DO Work Phone: Start: 05-21-2025 Ct head/brain w/o co ntrast material Jacoby Glozman DO Work Phone: Start: 05-21-2025 Comprehensive metabo lic panel Jacoby Blasman DO Work Phone: Start: 05-20-2025 Radiologic exam ches t single view Jacoby Glozman DO Work Phone: Start: 05-20-2025 Ecg routine ecg w/le ast 12 lds trcg only w/o i&r Jacoby Blasman DO Work Phone: Start: 12-20-2024 Assay of troponin quantitative Cydney Alondra DO Work Phone: Start: 12-20-2024 Ct angiography head w/contrast/noncontrast Cydney Alondra DO Work Phone: Start: 12-20-2024 Ct head/brain w/o co ntrast material Cydney Alondra DO Work Phone: Start: 12-20-2024 Basic metabolic pane l calcium total Cydney Alondra DO Work Phone: Start: 12-20-2024 Radiologic exam ches t single view Cydney Alondra DO Work Phone: Start: 12-20-2024 Ecg routine ecg w/le ast 12 lds i&r only Cydney Alondra DO Work Phone: Start: 04-06-2021 Radiologic exam ches t 2 views Carolina Francois MD Work Phone: Start: 12-09-2020 Echo tthrc r-t 2d w/wom-mode compl spec&colr d Eveheri Garcia Work Phone: Start: 12-09-2020 Radiologic exam ches t 2 views Carolina Francois Work Phone: Start: 11-04-2020 Assay of ferritin Osmani Conteh Work Phone: Start: 11-04-2020 Assay of magnesium Charles aezeke Conteh Work Phone: Start: 11-04-2020 Assay of phosphorus inorganic Jerardo Conteh Work Phone: Start: 11-04-2020 Basic metabolic pane l calcium total Jerardo Conteh Work Phone: Start: 11-04-2020 Blood count complete automated Jerardo Conteh Work Phone: Start: 11-04-2020 Calcium ionized Jerardo Conteh Work Phone: Start: 11-04-2020 Fibrin dgradj produc ts d-dimer quantitative Jerardo Conteh Work Phone: Start: 11-04-2020 Hepatic function panel Jerardo Conteh Work Phone: Start: 11-03-2020 Assay of magnesium Charles Conteh Work Phone: Start: 11-03-2020 Assay of phosphorus inorganic Jerardo Conteh Work Phone: Start: 11-03-2020 Basic metabolic pane l calcium total Jerardo Conteh Work Phone: Start: 11-03-2020 Blood count complete automated Jerardo Conteh Work Phone: Start: 11-03-2020 Calcium ionized Jerardo Conteh Work Phone: Start: 11-02-2020 Assay of ferritin Naheed Laurentson Work Phone: Start: 11-02-2020 Assay of magnesium Charles aezeke Conteh Work Phone: Start: 11-02-2020 Assay of phosphorus inorganic Jerardo Conteh Work Phone: Start: 11-02-2020 Blood count complete auto&auto difrntl wbc Abiel Luke Work Phone: Start: 11-02-2020 C-reactive protein Nikolas Luke Work Phone: Start: 11-02-2020 Calcium ionized Jerardo Conteh Work Phone: Start: 11-02-2020 Fibrin dgradj produc ts d-dimer quantitative Abiel Luke Work Phone: Start: 11-02-2020 Lactate dehydrogenase ldh Abiel Luke Work Phone: Start: 11-01-2020 Assay of ferritin Naheed Luke Work Phone: Start: 11-01-2020 Assay of magnesium Charles aezeke Wero Work Phone: Start: 11-01-2020 Assay of phosphorus inorganic Jerardo Conteh Work Phone: Start: 11-01-2020 Blood count complete auto&auto difrntl wbc Abiel Luke Work Phone: Start: 11-01-2020 C-reactive protein Nikolas Luke Work Phone: Start: 11-01-2020 Calcium ionized Jerardo Conteh Work Phone: Start: 11-01-2020 Fibrin dgradj produc ts d-dimer quantitative Abiel Luke Work Phone: Start: 11-01-2020 Lactate dehydrogenase ldh Abiel Luke Work Phone: Start: 11-01-2020 Speech and language therapy regime Abiel Luke Work Phone: Start: 10-31-2020 EXTUBATION Demetria Cross on Work Phone: Start: 10-31-2020 Radiologic exam ches t single view Demetria Alford Work Phone: Start: 10-31-2020 POCT ARTERIAL Jerardo harris Work Phone: Start: 10-31-2020 Assay of ferritin Naheed Luke Work Phone: Start: 10-31-2020 Assay of magnesium Charles aezeke Conteh Work Phone: Start: 10-31-2020 Assay of phosphorus inorganic Jerardo Conteh Work Phone: Start: 10-31-2020 Blood count complete auto&auto difrntl wbc Abiel Luke Work Phone: Start: 10-31-2020 C-reactive protein Nikolas Luke Work Phone: Start: 10-31-2020 Calcium ionized Jerardo Conteh Work Phone: Start: 10-31-2020 Fibrin dgradj produc ts d-dimer quantitative Abiel Luke Work Phone: Start: 10-31-2020 Lactate dehydrogenase ldh Abiel Luke Work Phone: Start: 10-30-2020 Assay of ferritin Naheed Luke Work Phone: Start: 10-30-2020 Assay of magnesium Charles michaela Conteh Work Phone: Start: 10-30-2020 Assay of phosphorus inorganic Jerardo Conteh Work Phone: Start: 10-30-2020 Blood count complete auto&auto difrntl wbc Abiel Luke Work Phone: Start: 10-30-2020 C-reactive protein Nikolas Luke Work Phone: Start: 10-30-2020 Calcium ionized Jerardo Conteh Work Phone: Start: 10-30-2020 Fibrin dgradj produc ts d-dimer quantitative Abiel Luke Work Phone: Start: 10-30-2020 Lactate dehydrogenase ldh Abiel Luke Work Phone: Start: 10-30-2020 POCT ARTERIAL Jerardo harris Work Phone: Start: 10-29-2020 Radiologic exam ches t single view Abiel Luke Work Phone: Start: 10-29-2020 POCT ARTERIAL Jerardo S kimberly Work Phone: Start: 10-29-2020 Assay of ferritin Naheed Luke Work Phone: Start: 10-29-2020 Assay of magnesium Charles ael Wero Work Phone: Start: 10-29-2020 Assay of phosphorus inorganic Jerardo Conteh Work Phone: Start: 10-29-2020 Blood count complete auto&auto difrntl wbc Abiel Luke Work Phone: Start: 10-29-2020 C-reactive protein Nikolas Luke Work Phone: Start: 10-29-2020 Calcium ionized Jerardo Conteh Work Phone: Start: 10-29-2020 Fibrin dgradj produc ts d-dimer quantitative Abiel Luke Work Phone: Start: 10-29-2020 Lactate dehydrogenase ldh Abiel Luke Work Phone: Start: 10-28-2020 Assay of ferritin Naheed Luke Work Phone: Start: 10-28-2020 Assay of magnesium Charles aezeke Conteh Work Phone: Start: 10-28-2020 Assay of phosphorus inorganic Jerardo Conteh Work Phone: Start: 10-28-2020 C-reactive protein Nikolas Luke Work Phone: Start: 10-28-2020 Lactate dehydrogenase ldh Abiel Luke Work Phone: Start: 10-28-2020 POCT ARTERIAL Jerardo harris Work Phone: Start: 10-28-2020 End: 10-28-2020 Blood count complete auto&auto difrntl wbc Abiel Luke Work Phone: Start: 10-28-2020 Calcium ionized Jerardo Conteh Work Phone: Start: 10-28-2020 Fibrin dgradj produc ts d-dimer quantitative Abiel Luke Work Phone: Start: 10-27-2020 Radiologic exam ches t single view Demetria Alford Work Phone: Start: 10-27-2020 POCT ARTERIAL Jerardo harris Work Phone: Start: 10-27-2020 Assay of ferritin Naheed Luke Work Phone: Start: 10-27-2020 Assay of magnesium Charles Conteh Work Phone: Start: 10-27-2020 Assay of phosphorus inorganic Jerardo Conteh Work Phone: Start: 10-27-2020 Blood count complete auto&auto difrntl wbc Abiel Luke Work Phone: Start: 10-27-2020 C-reactive protein Nikolas Luke Work Phone: Start: 10-27-2020 Calcium ionized Jerardo Conteh Work Phone: Start: 10-27-2020 Fibrin dgradj produc ts d-dimer quantitative Abiel Luke Work Phone: Start: 10-27-2020 Lactate dehydrogenase ldh Abiel Luke Work Phone: Start: 10-27-2020 Procalcitonin (pct) Jg gail Alford Work Phone: Start: 10-26-2020 POCT ARTERIAL Jerardo harris Work Phone: Start: 10-26-2020 Assay of ferritin Naheed Luke Work Phone: Start: 10-26-2020 Assay of magnesium Charles Conteh Work Phone: Start: 10-26-2020 Assay of phosphorus inorganic Jerardo Conteh Work Phone: Start: 10-26-2020 Blood count complete auto&auto difrntl wbc Abiel Luke Work Phone: Start: 10-26-2020 C-reactive protein Nikolas Luke Work Phone: Start: 10-26-2020 Calcium ionized Jerardo Conteh Work Phone: Start: 10-26-2020 Fibrin dgradj produc ts d-dimer quantitative Abiel Luke Work Phone: Start: 10-26-2020 Lactate dehydrogenase ldh Abiel Luke Work Phone: Start: 10-25-2020 POCT ARTERIAL Jerardo harris Work Phone: Start: 10-25-2020 POCT ARTERIAL Jerardo noriegaio Work Phone: Start: 10-25-2020 Assay of ferritin Naheed Luke Work Phone: Start: 10-25-2020 Assay of magnesium Charles ael Wero Work Phone: Start: 10-25-2020 Assay of phosphorus inorganic Jerardo Conteh Work Phone: Start: 10-25-2020 Blood count complete auto&auto difrntl wbc Abiel Luke Work Phone: Start: 10-25-2020 C-reactive protein Nikolas marco Luke Work Phone: Start: 10-25-2020 Calcium ionized Jerardo Conteh Work Phone: Start: 10-25-2020 Fibrin dgradj produc ts d-dimer quantitative Abiel Luke Work Phone: Start: 10-25-2020 Lactate dehydrogenase ldh Abiel Luke Work Phone: Start: 10-25-2020 POCT ARTERIAL Jerardo harris Work Phone: Start: 10-24-2020 Smr prim src gram/gi emsa stain bct fungi/cell Pilar Acierno Work Phone: Start: 10-24-2020 Virus centrifuge enh ncd id imfluor stain ea Pilar Acierno Work Phone: Start: 10-24-2020 POCT ARTERIAL Jerardo harris Work Phone: Start: 10-24-2020 Dup-scan xtr veins c omplete bilateral study Issa Conteh Work Phone: Start: 10-24-2020 POCT ARTERIAL Jerardo harris Work Phone: Start: 01-09-2021 Basic metabolic pane l calcium total Issa Conteh Work Phone: Start: 10-24-2020 POCT ARTERIAL Candelario Avalos ombash Work Phone: Start: 10-24-2020 ADD ON LAB TEST Issa Conteh Work Phone: Start: 10-24-2020 Assay of ferritin Naheed Laurentson Work Phone: Start: 10-24-2020 Assay of magnesium Charles Conteh Work Phone: Start: 10-24-2020 Assay of phosphorus inorganic Jerardo Conteh Work Phone: Start: 10-24-2020 Blood count complete auto&auto difrntl wbc Abiel Luke Work Phone: Start: 10-24-2020 C-reactive protein Nikolas Laurentson Work Phone: Start: 10-24-2020 Calcium ionized Jerardo Conteh Work Phone: Start: 10-24-2020 Fibrin dgradj produc ts d-dimer quantitative Abiel Laurentson Work Phone: Start: 10-24-2020 Lactate dehydrogenase ldh Abiel Luke Work Phone: Start: 10-24-2020 Procalcitonin (pct) Rubén jennifer Laurentson Work Phone: Start: 10-24-2020 Radiologic exam ches t single view Pilar Acierno Work Phone: Start: 10-24-2020 End: 10-24-2020 Radiologic exam chest single view Issa Conteh Work Phone: Start: 10-23-2020 Assay of ferritin Naheed Laurentson Work Phone: Start: 10-23-2020 Assay of magnesium Charles Conteh Work Phone: Start: 10-23-2020 Assay of phosphorus inorganic Jerardo Conteh Work Phone: Start: 10-23-2020 Blood count complete auto&auto difrntl wbc Abiel Luke Work Phone: Start: 10-23-2020 C-reactive protein Nikolas Luke Work Phone: Start: 10-23-2020 Fibrin dgradj produc ts d-dimer quantitative Abiel Luke Work Phone: Start: 10-23-2020 Lactate dehydrogenase ldh Abiel Luke Work Phone: Start: 10-22-2020 Assay of ferritin Naheed Luke Work Phone: Start: 10-22-2020 Assay of magnesium Charles ael Wero Work Phone: Start: 10-22-2020 Assay of phosphorus inorganic Jerardo Wero Work Phone: Start: 10-22-2020 Blood count complete auto&auto difrntl wbc Abiel Luke Work Phone: Start: 10-22-2020 C-reactive protein Nikolas Luke Work Phone: Start: 10-22-2020 Fibrin dgradj produc ts d-dimer quantitative Abiel Luke Work Phone: Start: 10-22-2020 Lactate dehydrogenase ldh Abiel Luke Work Phone: Start: 10-21-2020 Assay of ferritin Naheed Luke Work Phone: Start: 10-21-2020 Assay of magnesium Charles ael Wero Work Phone: Start: 10-21-2020 Assay of phosphorus inorganic Jerardo Conteh Work Phone: Start: 10-21-2020 Blood count complete auto&auto difrntl wbc Abiel Luke Work Phone: Start: 10-21-2020 C-reactive protein Nikolas Luke Work Phone: Start: 10-21-2020 Fibrin dgradj produc ts d-dimer quantitative Abiel Luke Work Phone: Start: 10-21-2020 Lactate dehydrogenase ldh Abiel Luke Work Phone: Start: 10-20-2020 ADD ON LAB TEST Jerardo Wero Work Phone: Start: 10-20-2020 25 hydroxy includes fractions if performed Abiel Luke Work Phone: Start: 10-20-2020 Assay of ferritin Nikolasr robert Luke Work Phone: Start: 10-20-2020 Assay of magnesium Charles ael Wero Work Phone: Start: 10-20-2020 Assay of phosphorus inorganic Jerardo Conteh Work Phone: Start: 10-20-2020 Blood count complete auto&auto difrntl wbc Abiel Luke Work Phone: Start: 10-20-2020 C-reactive protein Nikolas Luke Work Phone: Start: 10-20-2020 Fibrin dgradj produc ts d-dimer quantitative Abiel Luke Work Phone: Start: 10-20-2020 Lactate dehydrogenase ldh Abiel Luke Work Phone: Start: 10-20-2020 Procalcitonin (pct) Larry josé luisadrian Whiteshantel Work Phone: Start: 10-20-2020 RESPIRATORY CARE BASILIA LUATION ONLY Abiel Luke Work Phone: Start: 10-20-2020 POCT ARTERIAL Jerardo harris Work Phone: Start: 10-19-2020 Assay of troponin quantitative Jerardo Green Work Phone: Start: 10-19-2020 Ct angiography chest w/contrast/noncontrast Jerardo Green Work Phone: Start: 10-19-2020 Assay of troponin quantitative Jerardo Green Work Phone: Start: 10-19-2020 Assay of troponin quantitative Jerardo Green Work Phone: Start: 10-19-2020 Radiologic exam ches t single view Candelario Lomeli Work Phone: Start: 10-19-2020 Assay of troponin quantitative Candelario Lomeli Work Phone: Start: 10-19-2020 Blood count complete auto&auto difrntl wbc Candelario Lomeli Work Phone: Start: 10-19-2020 Comprehensive metabo lic panel [facility] Work Phone: Start: 10-19-2020 Ecg routine ecg w/le ast 12 lds w/i&r Candelario Lomeli Work Phone: Start: 10-16-2020 Assay of troponin quantitative Fransisco Lopez Work Phone: Start: 10-16-2020 Basic metabolic pane l calcium total Fransisco Lopez Work Phone: Start: 10-16-2020 Blood count complete auto&auto difrntl wbc Fransisco Lopez Work Phone: Start: 10-16-2020 Radiologic exam ches t single view Fransisco Lopez Work Phone: Start: 10-16-2020 Ecg routine ecg w/le ast 12 lds w/i&r Fransisco Lopez Work Phone: Start: 12-20-2019 EMG REPORT William christiney Work Phone: Start: 06-05-2019 Us abdominal aorta r eal time screen study aaa Laquita Ding Work Phone: Plan of Treatment Date Care Activity Detail Author Start: 06-09-2035 DTaP/Tdap/Td Vaccine s (4 - Td or Tdap) DTaP/Tdap/Td Vaccines (4 - Td or Tdap) [facility] Start: 05-22-2030 Lipid panel Lipid Panel [facility] Start: 08-06-2027 DTaP/Tdap/Td vaccine (2 - Td) DTaP/Tdap/Td vaccine (2 - Td) [place] Start: 08-06-2027 DTaP/Tdap/Td vaccine (3 - Td or Tdap) DTaP/Tdap/Td vaccine (3 - Td or Tdap) [facility] Start: 08-06-2027 DTaP/Tdap/Td vaccine (3 - Td) DTaP/Tdap/Td vaccine (3 - Td) [place] Start: 08-06-2027 DTaP/Tdap/Td Vaccine s (3 - Td or Tdap) DTaP/Tdap/Td Vaccines (3 - Td or Tdap) [facility] Start: 05-22-2026 Diabetes mellitus screening Diabetes Screening [facility] Start: 06-16-2025 Influenza vaccination Influenza Vacc ine (#1) [facility] Start: 06-16-2024 COVID-19 Vaccine ( season) COVID-19 Vaccine ( season) [facility] Start: 06-16-2024 Influenza vaccination Influenza Vacc ine (#1) [facility] Start: 08-08-2022 Lipid panel Lipid screen [place] Start: 08-08-2022 Lipid screen Lipid screen [place] Start: 11-04-2021 Creatinine measurement Creatinine mo nitoring [facility] Start: 11-04-2021 Potassium monitoring Potassium monit oring [facility] Start: 09-22-2021 End: 09-22-[address] [facility] Start: 06-24-2021 Screening for malign ant neoplasm of colon [facility] Start: 06-16-2021 Influenza vaccination Flu vaccine (# 1) [facility] Work Phone: Start: 04-07-2021 End: 04-07-2021 Patient encounter procedure 04/07/2021 Office Visit Pulmonology Carolina Francois MD [address] [place] [address] [facility] Start: 02-23-2021 End: 02-23-2021 Office Visit 02/23/2021 Office Visit Pulmonology Carolina Francois MD [address] [place] [address] [facility] [place] [facility] Start: 12-22-2020 COVID-19 Vaccine (2 of 2 - Moderna series) COVID-19 Vaccine (2 of 2 - Moderna series) [facility] Work Phone: Start: 06-16-2020 Influenza vaccination Flu vaccine (# 1) [place] Start: 10-20-2019 Annual Wellness Visi t (AWV) Annual Wellness Visit (AWV) [facility] Start: 06-16-2019 Influenza vaccination Flu vaccine (# 1) [place] Start: 2018 Pneumococcal 65+ yea rs Vaccine (1 of 2 - PCV13) Pneumococcal 65+ years Vaccine (1 of 2 - PCV13) [place] Start: 2018 Pneumococcal 65+ yea rs Vaccine (2 of 2 - PPSV23) Pneumococcal 65+ years Vaccine (2 of 2 - PPSV23) [place] Start: 08-08-2018 Lipid panel Lipid screen [facility] Start: 2013 RSV Immunization for Adults (1 - Risk 60-74 years 1-dose series) RSV Immunization for Adults (1 - Risk 60-74 years 1-dose series) [facility] Start: 2003 Colon cancer screen colonoscopy Colon cancer screen colonoscopy [place] Start: 2003 Screening for malign ant neoplasm of colon Colon cancer screen colonoscopy [place] Start: 2003 Shingles Vaccine (1 of 2) Shingles Vaccine (1 of 2) [facility] Start: 2003 Zoster Vaccines (1 o f 2) Zoster Vaccines (1 of 2) [facility] Start: 1998 Screening for malign ant neoplasm of colon Colon cancer screen colonoscopy [facility] Start: 1993 Diabetes screen Diabetes screen [facility] Start: 1971 Diabetes mellitus screening Diabetes Screening [facility] Start: 1971 Hepatitis C screening Hepatitis C Sc reening [facility] Start: 1968 HIV screen HIV screen [place] Start: 1965 COVID-19 Vaccine (1) COVID-19 Vaccin e (1) [facility] Start: 1965 Depression Screening Depression Scre ening [facility] Start: 1953 Hepatitis C screen Hepatitis C rohan crocker [employer] [place] Start: 1953 Hepatitis C screening Hepatitis C daryl reece [facility] Start: 1953 Lipid panel Lipid Panel [facility] Start: 1953 Screening for malign ant neoplasm of colon [facility] Basic metabolic 2000 panel Basic Metabolic Panel Lab Routine Daily until discontinued starting 11/03/2020, 2 completed [employer] Comment on above: Daily until disconti nued starting 11/03/2020, 2 completed Calcium, Ionized Calcium, Ionize d Lab Routine Daily until discontinued starting 10/24/2020, 12 completed [employer] Comment on above: Daily until disconti nued starting 10/24/2020, 12 completed CBC CBC Lab Routine Daily until discontinued starting 11/03/2020, 2 completed [employer] Comment on above: Daily until disconti nued starting 11/03/2020, 2 completed D-Dimer, Quantitative D-Dimer, Q uantitative Lab Routine Every MWF at 4 AM (BMT lab orders) until discontinued starting 11/04/2020, 1 completed [employer] Comment on above: Every MWF at 4 AM (B MT lab orders) until discontinued starting 11/04/2020, 1 completed EKG 12 Lead - Chest Pain EKG 12 Lead - Chest Pain ECG STAT 10/16/2020 8:11 AM EST [employer] Ferritin [Mass/Vol] Ferritin Lab Routine Every MWF at 4 AM (BMT lab orders) until discontinued starting [facility]/04[facility]2020 [facility]: Every MWF at 4 AM (B MT lab orders) until discontinued starting 11/04/2020 Hepatic Function Panel Hepatic F unction Panel Lab Routine Every MWF at 4 AM (BMT lab orders) until discontinued starting 11/04/2020 [facility] Comment on above: Every MWF at 4 AM (B MT lab orders) until discontinued starting 11/04/2020 Laceration Repair Laceration Rep air Procedures Routine 06/09/2025 3:45 PM EDT [facility] Work Phone: Magnesium [Mass/Vol] Magnesium L ab Routine Daily until discontinued starting 10/20/2020, 16 completed [place] Comment on above: Daily until disconti nued starting 10/20/2020, 16 completed End: 08-28-2021 MRI LUMBAR SPINE WO CONTRAST [facility] Work Phone: Comment on above: Once for 1 Occurrenc es starting 08/28/2021 until 08/28/2021 Nebulizer therapy Nebulizer tx intermittent Respiratory Care Routine (respiratory use only) until discontinued starting 11/02/2020 [facility] [place] Comment on above: (respirato ry use only) until discontinued starting 11/02/2020 Oxygen therapy [[facility] Data Set] Initiate Oxygen Therapy Protocol Respiratory Care Routine Daily until discontinued starting 10/20/2020 [place] Comment on above: Daily until disconti nued starting 10/20/2020 Phosphate [Mass/Vol] Phosphorus Lab Routine Daily until discontinued starting 10/20/2020, 16 completed [place] Comment on above: Daily until disconti nued starting 10/20/2020, 16 completed Immunizations Immunization Date Immunization Notes Care Provider [facility] 06-09-2025 tetanus toxoid, redu krys diphtheria toxoid, and acellular pertussis vaccine, adsorbed Marjorie Sears MD Work Phone: [facility] 08-23-2022 influenza virus vaccine, unspecified formulation Cydneyaddie Cantu DO Work Phone: [facility] 12-25-2020 Moderna SARS-CoV-2 Vaccination Cydney Cantu DO Work Phone: [facility] 11-24-2020 Moderna SARS-CoV-2 Vaccination Cydneyolivier Cantu DO Work Phone: [facility] 08-06-2017 tetanus toxoid, redu krys diphtheria toxoid, and acellular pertussis vaccine, adsorbed Laquita Ding [facility] Work Phone: Payers Date Payer Category Payer Self-pay 2021 Medicare supplementa l policy (as second payer) [employer] [id number] 2020 Private Health Insurance [facility] [id number] 2019 Medicare MEDICARE RAILROA D MEDICARE xxxxxxxxxxx 2019-Present [phone] [address] [address] [place] [address] xxxxxxxxxxx [id number] 2019 Medicare RAILROAD MEDICAR E [id number] 2019 Medicare [id number] 2015 Unknown BCBS [place] - [place] P PO xxxxxxxxxxxx 2015-Present [address] [place] [address] xxxxxxxxxxxx [id number] Unknown [id number] Social History Date Type Detail Facility Start: 08-06-2017 End: 09-12-2017 Tobacco smoking status NHIS Former smoker [facility] End: 10-16-1982 History of tobacco use Current smoker [place] Start: 09-12-2017 End: 05-21-2025 Cigarettes smoked current (pack per day) - Reported [place] Start: 09-12-2017 End: 06-09-2025 Alcohol intake Current non-drinker of alcohol (finding) [place] Start: 1955 Sex Assigned At Not on file [place] Start: 08-06-2017 End: 10-16-2020 Tobacco use and exposure Former user [place] End: 10-16-1981 History of tobacco use User of smokeless tobacco [place] Exposure to SARS-CoV -2 (event) Not sure [place] Start: 09-12-2017 End: 05-21-2025 Alcohol intake No [place] End: 10-16-1982 History of tobacco use Cigarette Smoker [facility] How often to you hav e a drink containing alcohol? Never [facility] How many standard dr inks containing alcohol do you have on a typical day? Patient does not drink [facility] Start: 05-16-2022 Sex Male (finding) Chloé He alth Has the [employer], oil, or water company threatened to shut off services in your home in past 12Mo No [facility] (I/We) worried lara er (my/our) food would run out before (I/we) got money to buy more. Never true [facility] Functional Status Date Assessment Result Facility 06-09-2025 Total score [AUDIT-C] 0 06/09/20 3:04 PM Taryn Thompson RN [facility] Clinical Notes 12-20-2024 to 06-09-2025 Discharge InstructionsAttachFaustina Carcamo DO - 06/09/2025 3:01 PM Aurelio Sears MD - 06/09/2025 3:01 PM Chidi Carcamo DO - 06/09/2025 3:01 PM EDTDischarge Instructions Note Date & Type Note Facility 06-09-2025 Hospital Discharg e instructions Riley Carcamo DO - 06/09/2025 3:59 PM EDT You were seen for a laceration on your right thumb and treated with stitches. Please have stitches removed at your next followup appointment on June 19. Return to the ER should you develop fevers, chills, redness or drainage around your wound. The following attachments cannot be sent through Care Everywhere.Laceration Repair With Stitches ED ([place] Citizen)documented in this encounter [facility] 06-09-2025 Note Procedure Laceration Repair Performed by: Riley Carcamo DO Authorized by: Marjorie Sears MD Consent: Consent obtained: Verbal Consent given by: Patient Risks, benefits, and alternatives were discussed: yes Risks discussed: Infection, pain and need for additional repair [place] protocol: Procedure explained and questions answered to patient or proxy's satisfaction: yes Relevant documents present and verified: yes Anesthesia: Anesthesia method: Local infiltration Local anesthetic: Lidocaine 1% w/o epi Laceration details: Location: Finger Finger location: R thumb Length (cm): 4 Depth (mm): 4 Treatment: Irrigation solution: Sterile water Irrigation method: Pressure wash Visualized foreign bodies/material removed: no Debridement: None Skin repair: Repair method: Sutures Suture size: 5-0 Suture material: Prolene Suture technique: Simple interrupted Number of sutures: 5 Approximation: Approximation: Close Repair type: Repair type: Simple Post-procedure details: Dressing: Splint for protection Procedure completion: Tolerated Riley Carcamo DO Resident 06/09/25 1612 [facility] 06-09-2025 Emergency department Note EMERGENCY DEPARTMENT ENCOUNTER Pt Name: Joseph Brown Birthdate 1955 Date of evaluation: 06/09/2025 ED Provider: Riley Carcamo DO CHIEF COMPLAINT Chief Complaint Patient presents with Finger Laceration Pt arrived to triage for a laceration to right thumb. Pt states he was fixing a picture frame and cut himself on the tin. Bleeding under control at this time HISTORY OF PRESENT ILLNESS (Location/Symptom, Timing/Onset, Context/Setting, Quality, Duration, Modifying Factors, Severity) Note limiting factors. I wore appropriate PPE for the entirety of this encounter. [facility] Joseph Brown is a 69 y.o. male who presents to the emergency department for laceration. Patient states he was fixing a metal picture frame when the knife slid through it and he cut himself on a piece of exposed metal from the frame. Immediately controlled bleeding and has not had active bleeding since presenting to the ER. Patient is not up to date on tetanus. Nursing Notes were reviewed. Limitations to history: None Outside historians: None REVIEW OF SYSTEMS Pertinent Positive and Negatives listed in [facility] PAST MEDICAL HISTORY Medical History[1] SURGICAL HISTORY Surgical History[2] CURRENT MEDICATIONS Discharge Medication List as of 06/09/2025 4:02 PM CONTINUE these medications which have NOT CHANGED Details atorvastatin (Lipitor) 10 MG tablet Take 10 mg by mouth daily., Historical Med fluticasone (Flonase) 50 MCG/ACT nasal spray Administer 2 sprays into each nostril daily. Shake gently. Before first use, prime pump. After use, clean tip and replace cap., Starting 05/23/2025, Until 05/23/2026, Normal meloxicam (Mobic) 15 MG tablet Take 1 tablet by mouth daily., Historical Med ALLERGIES Patient has no known allergies. FAMILY HISTORY Family History[3] SOCIAL HISTORY Social History[4] SCREENINGS Brawley Coma Scale Best Eye Response: Spontaneous Best Verbal Response: Oriented Best Motor Response: Follows commands B[place]ley Coma Scale Score: 15 PHYSICAL EXAM ED Triage Vitals [06/09/25 1504] Temp Heart Rate Resp BP 36.3 C (97.4 F) 85 19 137/76 SpO2 Temp Source Heart Rate Source Patient Position 96 % Temporal Monitor Sitting BP Location FiO2 (%) Right arm -- Physical Exam Constitutional: Appearance: Normal appearance. HENT: Head: Normocephalic and atraumatic. Eyes: Extraocular Movements: Extraocular movements intact. Cardiovascular: Rate and Rhythm: Normal rate. Pulmonary: Effort: Pulmonary effort is normal. Breath sounds: Normal breath sounds. Musculoskeletal: Comments: 4 cm laceration noted to lateral edge of thumb. Full range of motion and sensation intact. Neurological: Mental Status: He is alert. DIAGNOSTIC RESULTS RADIOLOGY (Per Emergency Physician): Interpretation per the Radiologist below, if available at the time of this note: No orders to display LABS: Labs Reviewed - No data to display All other labs were within normal range or not returned as of this dictation. EMERGENCY DEPARTMENT COURSE and DIFFERENTIAL DIAGNOSIS/MDM: Vitals: Vitals: 06/09/25 1504 BP: 137/76 BP Location: Right arm Patient Position: Sitting Pulse: 85 Resp: 19 Temp: 36.3 C (97.4 F) TempSrc: Temporal SpO2: 96% The patient presented with a chief complaint of laceration. 4 Centimeter right thumb laceration lateral edge of thumb. No additional imaging was required. Verbal consent was obtained for laceration repair. Laceration was cleaned with sterile water prior to procedure. Patient tolerated procedure well and five 5.0 Prolene stitches were used with good approximation. Patient instructed to have stitches removed in 7 to 10 days. Patient given return precautions should erythema up the arm, drainage, fevers, chills develop. Patient stable for discharge at this time Diagnoses as of 06/09/25 1608 Laceration of right thumb without foreign body without damage to nail, initial encounter EED Medications managed: Medications lidocaine (Xylocaine) 1 % injection 5 mL (has no administration in time range) Tdap (BoostRIX) vaccine 0.5 mL (0.5 mL IntraMUSCular Given 06/09/25 1516) PROCEDURES: Unless otherwise noted below, none Procedures FINAL IMPRESSION 1. Laceration of right thumb without foreign body without damage to nail, initial encounter DISPOSITION Discharge 06/09/2025 03:59:45 PM PATIENT REFERRED TO: No follow-up provider specified. DISCHARGE MEDICATIONS: Discharge Medication List as of 06/09/2025 4:02 PM (Comment: Please note this report has been produced using speech recognition software and may contain errors related to that system including errors in grammar, punctuation, and spelling, as well as words and phrases that may be inappropriate. If there are any questions or concerns please feel free to contact the dictating provider for clarification.) Riley Carcamo DO (electronically signed) Emergency Medicine Provider [1] Past Medical History: Diagnosis Date Arthritis SVT (supraventricular tachycardia) (HCC) Syncope [2] Past Surgical History: Procedure Laterality Date AMPUTATION fingers CHOLECYSTECTOMY [3] Family History Problem Relation Name Age of Onset Coronary artery disease Mother Emphysema Father COPD Mother COPD Brother COPD Father Heart failure Mother CHF Diabetes Brother [4] Social History Socioeconomic History Marital status: Tobacco Use Smoking status: Former Current packs/day: 0.00 Types: Cigarettes Quit date: 10/16/1982 Years since quittin.6 Smokeless tobacco: Former Quit date: 10/16/1981 Substance and Sexual Activity Alcohol use: No Drug use: No Social Drivers of Health Food Insecurity: No Food Insecurity (05/21/2025) Hunger Vital Sign Worried About Running Out of Food in the Last Year: Never true Ran Out of Food in the Last Year: Never true Transportation Needs: No Transportation Needs (05/21/2025) PRAPARE - Transportation Lack of Transportation (Medical): No Lack of Transportation (Non-Medical): No Intimate Partner Violence: Not At Risk (05/21/2025) Humiliation, Afraid, Rape, and Kick questionnaire Fear of Current or Ex-Partner: No Emotionally Abused: No Physically Abused: No Sexually Abused: No Housing Stability: Low Risk (05/21/2025) Housing Stability Vital Sign Unable to Pay for Housing in the Last Year: No Number of Times Moved in the Last Year: 0 Homeless in the Last Year: No Riley Carcamo DO Resident 06/09/25 1608 Cosigned by Marjorie Sears MD at 06/09/2025 4:09 PM EDT Emergency Department Encounter [facility] ED Patient: Joseph Brown : 1955 Date of Evaluation: 06/09/2025 ED Supervising Physician: Marjorie Sears MD I personally evaluated Joseph Brown and made/approved the management plan and take responsibility for the patient management. This will serve as my Supervisory note and shared attestation. I did perform a substantive portion of the visit including all aspects of the Medical Decision Making. I wore appropriate PPE for the entirety of this encounter. In brief, Joseph Brown is a 69 y.o. that presents to the emergency department for finger laceration. States that he was fixing a metal picture frame when the exposed metal sliced his thumb. Sustained a laceration to the lateral aspect of his right thumb. No active bleeding at this time. Tetanus is not up-to-date. Focused exam: Well-appearing male in no acute distress. Vital signs reviewed and unremarkable. Patient has a 4 cm laceration noted to the lateral edge of the that does not involve the nailbed. It does pass through the DIP joint. He has full range of motion at the DIP and MCP joint of the thumb. There is no active bleeding. No obvious tendon or bony involvement. No bony tenderness. Normal sensation. Brief ED course/MDM: 69-year-old male present emergency room today for finger laceration. Afebrile hemodynamically stable. Sustained a laceration earlier today that was accidental. There is no obvious bony involvement or bony tenderness. I do not think that there is any indication for x-ray merging at this time. Tetanus was updated. Wound was cleaned out well and repaired at the bedside. We did place an aluminum splint in order to help decrease the risk of him ripping out his sutures when he bends his thumb. Patient already has a follow-up appointment in 1 week with his PCP and will be able to get his sutures removed at that time if needed. Educated on risk of infection and keeping his wound clean. Given strict return precautions and discharged in stable condition. Diagnostics interpreted by me: I personally discussed the patient's management with other clinicians: All diagnostic, treatment, and disposition decisions were made by myself in conjunction with the Resident. I also supervised madrigal portions of any procedures performed by the Resident. For all further details of the patient's emergency department visit, please see their documentation. (Comment: Please note this report has been produced using speech recognition software and may contain errors related to that system including errors in grammar, punctuation, and spelling, as well as words and phrases that may be inappropriate. If there are any questions or concerns please feel free to contact the dictating provider for clarification.) Marjorie Sears MD Acute Care [facility] Marjorie Sears MD 06/09/25 1534 documented in this encounter [facility] 06-09-2025 Physician Emergen cy department Note EMERGENCY DEPARTMENT ENCOUNTER Pt Name: Joseph Brown Birthdate 1955 Date of evaluation: 06/09/2025 ED Provider: Riley Carcamo DO CHIEF COMPLAINT Chief Complaint Patient presents with Finger Laceration Pt arrived to triage for a laceration to right thumb. Pt states he was fixing a picture frame and cut himself on the tin. Bleeding under control at this time HISTORY OF PRESENT ILLNESS (Location/Symptom, Timing/Onset, Context/Setting, Quality, Duration, Modifying Factors, Severity) Note limiting factors. I wore appropriate PPE for the entirety of this encounter. HPI Joseph Brown is a 69 y.o. male who presents to the emergency department for laceration. Patient states he was fixing a metal picture frame when the knife slid through it and he cut himself on a piece of exposed metal from the frame. Immediately controlled bleeding and has not had active bleeding since presenting to the ER. Patient is not up to date on tetanus. Nursing Notes were reviewed. Limitations to history: None Outside historians: None REVIEW OF SYSTEMS Pertinent Positive and Negatives listed in HPI PAST MEDICAL HISTORY Medical History[1] SURGICAL HISTORY Surgical History[2] CURRENT MEDICATIONS Discharge Medication List as of 06/09/2025 4:02 PM CONTINUE these medications which have NOT CHANGED Details atorvastatin (Lipitor) 10 MG tablet Take 10 mg by mouth daily., Historical Med fluticasone (Flonase) 50 MCG/ACT nasal spray Administer 2 sprays into each nostril daily. Shake gently. Before first use, prime pump. After use, clean tip and replace cap., Starting 05/23/2025, Until 05/23/2026, Normal meloxicam (Mobic) 15 MG tablet Take 1 tablet by mouth daily., Historical Med ALLERGIES Patient has no known allergies. FAMILY HISTORY Family History[3] SOCIAL HISTORY Social History[4] SCREENINGS [place] Coma Scale Best Eye Response: Spontaneous Best Verbal Response: Oriented Best Motor Response: Follows commands [place]it Coma Scale Score: 15 PHYSICAL EXAM ED Triage Vitals [06/09/25 1504] Temp Heart Rate Resp BP 36.3 C (97.4 F) 85 19 137/76 SpO2 Temp Source Heart Rate Source Patient Position 96 % Temporal Monitor Sitting BP Location FiO2 (%) Right arm -- Physical Exam Constitutional: Appearance: Normal appearance. HENT: Head: Normocephalic and atraumatic. Eyes: Extraocular Movements: Extraocular movements intact. Cardiovascular: Rate and Rhythm: Normal rate. Pulmonary: Effort: Pulmonary effort is normal. Breath sounds: Normal breath sounds. Musculoskeletal: Comments: 4 cm laceration noted to lateral edge of thumb. Full range of motion and sensation intact. Neurological: Mental Status: He is alert. DIAGNOSTIC RESULTS RADIOLOGY (Per Emergency Physician): Interpretation per the Radiologist below, if available at the time of this note: No orders to display LABS: Labs Reviewed - No data to display All other labs were within normal range or not returned as of this dictation. EMERGENCY DEPARTMENT COURSE and DIFFERENTIAL DIAGNOSIS/MDM: Vitals: Vitals: 06/09/25 1504 BP: 137/76 BP Location: Right arm Patient Position: Sitting Pulse: 85 Resp: 19 Temp: 36.3 C (97.4 F) TempSrc: Temporal SpO2: 96% The patient presented with a chief complaint of laceration. 4 Centimeter right thumb laceration lateral edge of thumb. No additional imaging was required. Verbal consent was obtained for laceration repair. Laceration was cleaned with sterile water prior to procedure. Patient tolerated procedure well and five 5.0 Prolene stitches were used with good approximation. Patient instructed to have stitches removed in 7 to 10 days. Patient given return precautions should erythema up the arm, drainage, fevers, chills develop. Patient stable for discharge at this time Diagnoses as of 06/09/25 1608 Laceration of right thumb without foreign body without damage to nail, initial encounter EED Medications managed: Medications lidocaine (Xylocaine) 1 % injection 5 mL (has no administration in time range) Tdap (BoostRIX) vaccine 0.5 mL (0.5 mL IntraMUSCular Given 06/09/25 1516) PROCEDURES: Unless otherwise noted below, none Procedures FINAL IMPRESSION 1. Laceration of right thumb without foreign body without damage to nail, initial encounter DISPOSITION Discharge 06/09/2025 03:59:45 PM PATIENT REFERRED TO: No follow-up provider specified. DISCHARGE MEDICATIONS: Discharge Medication List as of 06/09/2025 4:02 PM (Comment: Please note this report has been produced using speech recognition software and may contain errors related to that system including errors in grammar, punctuation, and spelling, as well as words and phrases that may be inappropriate. If there are any questions or concerns please feel free to contact the dictating provider for clarification.) Riley Carcamo DO (electronically signed) Emergency Medicine Provider [1] Past Medical History: Diagnosis Date Arthritis SVT (supraventricular tachycardia) (HCC) Syncope [2] Past Surgical History: Procedure Laterality Date AMPUTATION fingers CHOLECYSTECTOMY [3] Family History Problem Relation Name Age of Onset Coronary artery disease Mother Emphysema Father COPD Mother COPD Brother COPD Father Heart failure Mother CHF Diabetes Brother [4] Social History Socioeconomic History Marital status: Tobacco Use Smoking status: Former Current packs/day: 0.00 Types: Cigarettes Quit date: 10/16/1982 Years since quittin.6 Smokeless tobacco: Former Quit date: 10/16/1981 Substance and Sexual Activity Alcohol use: No Drug use: No Social Drivers of Health Food Insecurity: No Food Insecurity (05/21/2025) Hunger Vital Sign Worried About Running Out of Food in the Last Year: Never true Ran Out of Food in the Last Year: Never true Transportation Needs: No Transportation Needs (05/21/2025) PRAPARE - Transportation Lack of Transportation (Medical): No Lack of Transportation (Non-Medical): No Intimate Partner Violence: Not At Risk (05/21/2025) Humiliation, Afraid, Rape, and Kick questionnaire Fear of Current or Ex-Partner: No Emotionally Abused: No Physically Abused: No Sexually Abused: No Housing Stability: Low Risk (05/21/2025) Housing Stability Vital Sign Unable to Pay for Housing in the Last Year: No Number of Times Moved in the Last Year: 0 Homeless in the Last Year: No Riley Carcamo DO Resident 06/09/25 1608 Cosigned by Marjorie Sears MD at 06/09/2025 4:09 PM EDT [facility] 06-09-2025 Physician Emergen cy department Note Emergency Department Encounter [facility] ED Patient: Joseph Brown : 1955 Date of Evaluation: 06/09/2025 ED Supervising Physician: Marjorie Sears MD I personally evaluated Joseph Brown and made/approved the management plan and take responsibility for the patient management. This will serve as my Supervisory note and shared attestation. I did perform a substantive portion of the visit including all aspects of the Medical Decision Making. I wore appropriate PPE for the entirety of this encounter. In brief, Joseph Brown is a 69 y.o. that presents to the emergency department for finger laceration. States that he was fixing a metal picture frame when the exposed metal sliced his thumb. Sustained a laceration to the lateral aspect of his right thumb. No active bleeding at this time. Tetanus is not up-to-date. Focused exam: Well-appearing male in no acute distress. Vital signs reviewed and unremarkable. Patient has a 4 cm laceration noted to the lateral edge of the that does not involve the nailbed. It does pass through the DIP joint. He has full range of motion at the DIP and MCP joint of the thumb. There is no active bleeding. No obvious tendon or bony involvement. No bony tenderness. Normal sensation. Brief ED course/MDM: 69-year-old male present emergency room today for finger laceration. Afebrile hemodynamically stable. Sustained a laceration earlier today that was accidental. There is no obvious bony involvement or bony tenderness. I do not think that there is any indication for x-ray merging at this time. Tetanus was updated. Wound was cleaned out well and repaired at the bedside. We did place an aluminum splint in order to help decrease the risk of him ripping out his sutures when he bends his thumb. Patient already has a follow-up appointment in 1 week with his PCP and will be able to get his sutures removed at that time if needed. Educated on risk of infection and keeping his wound clean. Given strict return precautions and discharged in stable condition. Diagnostics interpreted by me: I personally discussed the patient's management with other clinicians: All diagnostic, treatment, and disposition decisions were made by myself in conjunction with the Resident. I also supervised madrigal portions of any procedures performed by the Resident. For all further details of the patient's emergency department visit, please see their documentation. (Comment: Please note this report has been produced using speech recognition software and may contain errors related to that system including errors in grammar, punctuation, and spelling, as well as words and phrases that may be inappropriate. If there are any questions or concerns please feel free to contact the dictating provider for clarification.) Marjorie Sears MD Acute Care [facility] Marjorie Sears MD 06/09/25 0948 [facility] Work Phone: 05-22-2025 Nurse Note Pt given and educated on discharge instructions. Pt and family have no questions at this time. IV removed. Pt discharged to private vehicle. [facility] 05-22-2025 Nurse Note Pt given and educated on discharge instructions. Pt and family have no questions at this time. IV removed. Pt discharged to private vehicle. 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 Recent sharp neck pains Hyperlipidemia-on atorvastatin Stable chronic problems affecting care, new non-acute discharge diagnoses: History of SVT History of syncope Medical History[1] Procedures: MR head angio wo IV contrast Narrative: Patient Name: JOSEPH BROWN : 1955 [facility]#: [id number] Exam Date/Time: 05/21/2025 16:00 Procedure: MR HEAD ANGIO WO IV CONTRAST Ordering Provider: COELHO SHAYNA Reason For Exam: concern for disection MRI OF THE BRAIN WITHOUT GADOLINIUM CLINICAL INDICATION: Dizziness, persistent/recurrent, cardiac or vascular cause suspected TECHNIQUE: Routine MRI of the brain without IV gadolinium. COMPARISON: CT brain, earlier on same date. FINDINGS: No apparent mass, mass effect, hemorrhage, midline shift or hydrocephalus. No acute infarct seen on diffusion weighted imaging. No pathologic extra-axial fluid collection. No pineal region or sellar masses. No cerebellar tonsillar herniation. Diffuse mucosal thickening and partial opacification again noted in the bilateral frontal, ethmoid and right maxillary and sphenoid sinuses. Impression: 1. No acute intracranial findings. 2. Paranasal sinus disease, including possible sinonasal polyposis. MRA OF THE BRAIN CLINICAL INDICATION: Dizziness, persistent/recurrent, cardiac or vascular cause suspected TECHNIQUE: Routine MRA of the brain without gadolinium. COMPARISON: CTA head and neck, December,. FINDINGS: Flow-related enhancement in the intracranial internal carotid, proximal anterior and middle cerebral arteries. Flow-related enhancement in the basilar and proximal posterior cerebral arteries. Right [employer] derives major contribution from anterior circulation consistent with persistent origin, an anatomic variant. No large vessel cutoff, focal hemodynamically significant stenosis or apparent aneurysm. The intracranial vertebral arteries are patent. IMPRESSION: 1. No intracranial large vessel occlusion or significant stenosis. MRA OF THE NECK WITH AND WITHOUT GADOLINIUM CLINICAL INDICATION: Dizziness, persistent/recurrent, cardiac or vascular cause suspected TECHNIQUE: Routine MRA of the neck with and without IV gadolinium. COMPARISON: CTA head and neck, December,. FINDINGS: The bilateral common, internal and external carotid arteries are patent. Mild plaquing in bilateral proximal ICAs, with 50% or less stenosis. Carotid bifurcations have normal contour without significant plaque formation. No occlusion, focal hemodynamically significant stenosis or apparent aneurysm. Vertebral arteries are patent. Left vertebral artery dominant. Left common carotid artery origin from brachiocephalic artery or bovine arch incidentally noted. IMPRESSION: 1. No significant cervical ICA stenosis (50% or less) by NASCET criteria. Reference: Measurement of carotid stenosis is a ratio based on conventional angiographic data from the NASCET trials with the post stenotic internal carotid artery caliber minus the smallest caliber of the stenotic internal carotid as the numerator and normal post-stenotic internal carotid caliber as denominator. Report Dictated on Electronically Signed By: Yasmani Briscoe MD Electronically Signed Date/Time: 05/21/2025 6:01 PM EDT MR neck angio w and wo IV contrast Narrative: [facility] 1955 [id number] Exam Date/Time: 05/21/2025 16:00 Procedure: MR NECK ANGIO W AND WO IV CONTRAST Ordering Provider: COELHO SHAYNA Reason For Exam: Vertebral artery dissection suspected MRI OF THE BRAIN WITHOUT GADOLINIUM CLINICAL INDICATION: Dizziness, persistent/recurrent, cardiac or vascular cause suspected TECHNIQUE: Routine MRI of the brain without IV gadolinium. COMPARISON: CT brain, earlier on same date. FINDINGS: No apparent mass, mass effect, hemorrhage, midline shift or hydrocephalus. No acute infarct seen on diffusion weighted imaging. No pathologic extra-axial fluid collection. No pineal region or sellar masses. No cerebellar tonsillar herniation. Diffuse mucosal thickening and partial opacification again noted in the bilateral frontal, ethmoid and right maxillary and sphenoid sinuses. Impression: 1. No acute intracranial findings. 2. Paranasal sinus disease, including possible sinona (more content not included)... [facility] 05-22-2025 Hospital course Narrative Hospitalist Discharge Summary Joseph Brown : 1955 Admit date: 05/20/2025 Discharge date: 05/22/2025 Admitting Physician: José Antonio Woodruff MD Primary Care Physician: Laquita Ding DO Visit Status: Observation Code Status: Full Code Acute, acute on chronic, unstable/uncontrolled chronic problems/discharge diagnoses: Dizziness with differential including central versus peripheral vertigo-MRI and MRA of the head and neck ordered Chronic paranasal sinusitis with deviated nasal septum Recent sharp neck pains Hyperlipidemia-on atorvastatin Stable chronic problems affecting care, new non-acute discharge diagnoses: History of SVT History of syncope Medical History[1] Procedures: MR head angio wo IV contrast Narrative: Patient Name: JOSEPH BROWN : 1955 [facility]#: [id number] Exam Date/Time: 05/21/2025 16:00 Procedure: MR HEAD ANGIO WO IV CONTRAST Ordering Provider: COELHO SHAYNA Reason For Exam: concern for disection MRI OF THE BRAIN WITHOUT GADOLINIUM CLINICAL INDICATION: Dizziness, persistent/recurrent, cardiac or vascular cause suspected TECHNIQUE: Routine MRI of the brain without IV gadolinium. COMPARISON: CT brain, earlier on same date. FINDINGS: No apparent mass, mass effect, hemorrhage, midline shift or hydrocephalus. No acute infarct seen on diffusion weighted imaging. No pathologic extra-axial fluid collection. No pineal region or sellar masses. No cerebellar tonsillar herniation. Diffuse mucosal thickening and partial opacification again noted in the bilateral frontal, ethmoid and right maxillary and sphenoid sinuses. Impression: 1. No acute intracranial findings. 2. Paranasal sinus disease, including possible sinonasal polyposis. MRA OF THE BRAIN CLINICAL INDICATION: Dizziness, persistent/recurrent, cardiac or vascular cause suspected TECHNIQUE: Routine MRA of the brain without gadolinium. COMPARISON: CTA head and neck, December,. FINDINGS: Flow-related enhancement in the intracranial internal carotid, proximal anterior and middle cerebral arteries. Flow-related enhancement in the basilar and proximal posterior cerebral arteries. Right [employer] derives major contribution from anterior circulation consistent with persistent origin, an anatomic variant. No large vessel cutoff, focal hemodynamically significant stenosis or apparent aneurysm. The intracranial vertebral arteries are patent. IMPRESSION: 1. No intracranial large vessel occlusion or significant stenosis. MRA OF THE NECK WITH AND WITHOUT GADOLINIUM CLINICAL INDICATION: Dizziness, persistent/recurrent, cardiac or vascular cause suspected TECHNIQUE: Routine MRA of the neck with and without IV gadolinium. COMPARISON: CTA head and neck, December,. FINDINGS: The bilateral common, internal and external carotid arteries are patent. Mild plaquing in bilateral proximal ICAs, with 50% or less stenosis. Carotid bifurcations have normal contour without significant plaque formation. No occlusion, focal hemodynamically significant stenosis or apparent aneurysm. Vertebral arteries are patent. Left vertebral artery dominant. Left common carotid artery origin from brachiocephalic artery or bovine arch incidentally noted. IMPRESSION: 1. No significant cervical ICA stenosis (50% or less) by NASCET criteria. Reference: Measurement of carotid stenosis is a ratio based on conventional angiographic data from the NASCET trials with the post stenotic internal carotid artery caliber minus the smallest caliber of the stenotic internal carotid as the numerator and normal post-stenotic internal carotid caliber as denominator. Report Dictated on Electronically Signed By: Yasmani Briscoe MD Electronically Signed Date/Time: 05/21/2025 6:01 PM EDT MR neck angio w and wo IV contrast Narrative: [facility] 1955 [id number] Exam Date/Time: 05/21/2025 16:00 Procedure: MR NECK ANGIO W AND WO IV CONTRAST Ordering Provider: COELHO SHAYNA Reason For Exam: Vertebral artery dissection suspected MRI OF THE BRAIN WITHOUT GADOLINIUM CLINICAL INDICATION: Dizziness, persistent/recurrent, cardiac or vascular cause suspected TECHNIQUE: Routine MRI of the brain without IV gadolinium. COMPARISON: CT brain, earlier on same date. FINDINGS: No apparent mass, mass effect, hemorrhage, midline shift or hydrocephalus. No acute infarct seen on diffusion weighted imaging. No pathologic extra-axial fluid collection. No pineal region or sellar masses. No cerebellar tonsillar herniation. Diffuse mucosal thickening and partial opacification again noted in the bilateral frontal, ethmoid and right maxillary and sphenoid sinuses. Impression: 1. No acute intracranial findings. 2. Paranasal sinus disease, including possible sinonasal polyposis. MRA OF THE BRAIN CLINICAL INDICATION: Dizziness, persistent/recurrent, cardiac or vascular cause suspected TECHNIQUE: Routine MRA of the brain without gadolinium. COMPARISON: CTA head and neck, December,. FINDINGS: Flow-related enhancement in the intracranial internal carotid, proximal anterior and middle cerebral arteries. Flow-related enhancement in the basilar and proximal posterior cerebral arteries. Right [employer] derives major contribution from anterior circulation consistent with persistent origin, an anatomic variant. No large vessel cutoff, focal hemodynamically significant stenosis or apparent aneurysm. The intracranial vertebral arteries are patent. IMPRESSION: 1. No intracranial large vessel occlusion or significant stenosis. MRA OF THE NECK WITH AND WITHOUT GADOLINIUM CLINICAL INDICATION: Dizziness, persistent/recurrent, cardiac or vascular cause suspected TECHNIQUE: Routine MRA of the neck with and without IV gadolinium. COMPARISON: CTA head and neck, December,. FINDINGS: The bilateral common, internal and external carotid arteries are patent. Mild plaquing in bilateral proximal ICAs, with 50% or less stenosis. Carotid bifurcations have normal contour without significant plaque formation. No occlusion, focal hemodynamically significant stenosis or apparent aneurysm. Vertebral arteries are patent. Left vertebral artery dominant. Left common carotid artery origin from brachiocephalic artery or bovine arch incidentally noted. IMPRESSION: 1. No significant cervical ICA stenosis (50% or less) by NASCET criteria. Reference: Measurement of carotid stenosis is a ratio based on conventional angiographic data from the NASCET trials with the post stenotic internal carotid artery caliber minus the smallest caliber of the stenotic internal carotid as the numerator and normal post-stenotic internal carotid caliber as denominator. Report Dictated on Electronically Signed By: Yasmani Briscoe MD Electronically Signed Date/Time: 05/21/2025 6:01 PM EDT MR brain wo contrast Narrative: [facility] 1955 [id number] Exam Date/Time: 05/21/2025 16:00 Procedure: MR BRAIN WO CONTRAST Ordering Provider: COELHO SHAYNA Reason For Exam: Dizziness, persistent/recurrent, cardiac or vascular cause suspected MRI OF THE BRAIN WITHOUT GADOLINIUM CLINICAL INDICATION: Dizziness, persistent/recurrent, cardiac or vascular cause suspected TECHNIQUE: Routine MRI of the brain without IV gadolinium. COMPARISON: CT brain, earlier on same date. FINDINGS: No apparent mass, mass effect, hemorrhage, midline shift or hydrocephalus. No acute infarct seen on diffusion weighted imaging. No pathologic extra-axial fluid collection. No pineal region or sellar masses. No cerebellar tonsillar herniation. Diffuse mucosal thickening and partial opacification again noted in the bilateral frontal, ethmoid and right maxillary and sphenoid sinuses. Impression: 1. No acute intracranial findings. 2. Paranasal sinus disease, including possible sinonasal polyposis. MRA OF THE BRAIN CLINICAL INDICATION: Dizziness, persistent/recurrent, cardiac or vascular cause suspected TECHNIQUE: Routine MRA of the brain without gadolinium. COMPARISON: CTA head and neck, December,. FINDINGS: Flow-related enhancement in the intracranial internal carotid, proximal anterior and middle cerebral arteries. Flow-related enhancement in the basilar and proximal posterior cerebral arteries. Right [employer] derives major contribution from anterior circulation consistent with persistent origin, an anatomic variant. No large vessel cutoff, focal hemodynamically significant stenosis or apparent aneurysm. The intracranial vertebral arteries are patent. IMPRESSION: 1. No intracranial large vessel occlusion or significant stenosis. MRA OF THE NECK WITH AND WITHOUT GADOLINIUM CLINICAL INDICATION: Dizziness, persistent/recurrent, cardiac or vascular cause suspected TECHNIQUE: Routine MRA of the neck with and without IV gadolinium. COMPARISON: CTA head and neck, December,. FINDINGS: The bilateral common, internal and external carotid arteries are patent. Mild plaquing in bilateral proximal ICAs, with 50% or less stenosis. Carotid bifurcations have normal contour without significant plaque formation. No occlusion, focal hemodynamically significant stenosis or apparent aneurysm. Vertebral arteries are patent. Left vertebral artery dominant. Left common carotid artery origin from brachiocephalic artery or bovine arch incidentally noted. IMPRESSION: 1. No significant cervical ICA stenosis (50% or less) by NASCET criteria. Reference: Measurement of carotid stenosis is a ratio based on conventional angiographic data from the NASCET trials with the post stenotic internal carotid artery caliber minus the smallest caliber of the stenotic internal carotid as the numerator and normal post-stenotic internal carotid caliber as denominator. Report Dictated on Electronically Signed By: Yasmani Briscoe MD Electronically Signed Date/Time: 05/21/2025 6:01 PM EDT ECG 12 lead EKG shows normal sinus rhythm, 64 bpm, no STEMI, QTc normal. Interpretation was performed by me. Overall similar when compared to prior. Electronically Signed On 05-21-2025 01:10:32 EDT by Jacoby Sanders CT head wo IV contrast Narrative: [facility]OWN [facility] 1955 [id number] Exam Date/Time: 05/21/2025 00:21 Procedure: CT HEAD WO IV CONTRAST Ordering Provider: SANDERS FELIX Reason For Exam: dizziness CT HEAD WITHOUT CONTRAST CLINICAL HISTORY: dizziness COMPARISON: 12/20/2024 TECHNIQUE: Helical CT of the brain without contrast. Dose reduction was employed with automated exposure control. FINDINGS: Acute Findings: No hemorrhage, mass, or infarct. Chronic Changes: None identified. Ventricles and sulci: Within normal limits for age. Other: Extensive mucosal thickening throughout the paranasal sinuses bilaterally. Several of the sinuses have hyperdense contents. There also is polypoid mucosal thickening in the right nasal cavity most likely secondary to nasal polyps. Similar findings were present on the patient's prior study. Impression: 1. No acute intracranial abnormalities. 2. Chronic sinonasal polyposis bilaterally. Report Dictated on Electronically Signed By: Avinash Miguel MD Electronically Signed Date/Time: 05/21/2025 1:00 AM EDT === 05/20/25 === CT HEAD WO IV CONTRAST - Impression - 1. No acute intracranial abnormalities. 2. Chronic sinonasal polyposis bilaterally. Report Dictated on Electronically Signed By: Avinash Miguel MD Electronically Signed Date/Time: 05/21/2025 1:00 AM EDT No results found for this or any previous visit from the past 365 days. LABS Results from last 7 days Lab Units 05/22/25 0120 05/21/25 0007 WBC AUTO 10*3/uL 8.2 8.7 HEMOGLOBIN g/dL 14.2 13.7 HEMATOCRIT % 43.3 41.1 PLATELETS 10*3/uL 184 179 NEUTROS PCT AUTO % -- 64.3 LYMPHS PCT AUTO % -- 20.8 MONOS PCT AUTO % -- 8.7 EOS PCT AUTO % -- 5.2 Results from last 7 days Lab Units 05/22/25 0120 05/21/25 0007 SODIUM mmol/L 142 142 POTASSIUM mmol/L 4.5 4.1 CHLORIDE mmol/L 112* 111* CO2 mmol/L 22* 23 BUN mg/dL 19 17 CREATININE mg/dL 0.83 0.89 GLUCOSE mg/dL 101 163* CALCIUM mg/dL 8.7* 8.7* Hospital Course: See discharge diagnoses list above and medication adjustments below in med rec.The patient is discharged in improved and stable condition. 69-year-old male patient with history of deviated nasal septum and paranasal sinusitis, is admitted with acute episode of onset of dizziness when he is lying down. Initial CT head was negative for stroke, neurology was consulted and MRI/MRA were done. MRI imaging was negative for acute stroke or intracranial stenosis PT recommended home for discharge, patient did tell me that he had a ENT evaluation pending for surgery. Added Augmentin for chronic sinusitis as well as Flonase asked him to follow-up with ENT and PCP Consults: IP CONSULT TO NEUROLOGY IP CONSULT TO CASE MANAGEMENT IP CONSULT TO NEUROLOGY Discharge Instructions: Diet: Dietary Orders (From admission, onward) Start Ordered 05/21/252235 Adult diet Regular Diet effective now Question: Diet type Answer: Regular 05/21/252234 Activity: as tolerated Recommended Outpatient Tests: Follow-up with ENT service Disposition: Patient discharged in stable condition to Home. Greater than 30 minutes spent discharging the patient and coming up with patient discharge plan. Vitals: BP 122/69 (BP Location: Right arm, Patient Position: Sitting) Pulse 74 Temp 36.1 C (96.9 F) (Temporal) Resp 20 Ht 6' (1.829 m) Wt 235 lb (107 kg) SpO2 99% BMI 31.87 kg/m Pulse Ox: SpO2 Av.7 % Min: 98 % Max: 99 % Supplemental O2: General appearance: . Awake alert oriented x 3 appears pleasant and cooperative HEENT: Extraocular muscles are intact and pupils are reacting to light and no nystagmus Neck: Good range of motion and no neck stiffness Respiratory: Diminished breath sounds bilaterally no wheezing or rhonchi Cardiovascular: . S1-S2, no murmurs gallops or rubs Abdomen: Positive bowel sounds, soft nontender Musculoskeletal: Good range of motion, no edema no calf tenderness Skin: No rash or lesions Neurologic: Awake alert oriented x 3, no speech disturbance NIHSS 1a Level of consciousness: 0=alert; keenly responsive 1b. LOC questions: 0=Performs both tasks correctly 1c. LOC commands: 0=Performs both tasks correctly 2. Best Gaze: 0=normal 3. Visual: 0=No visual loss 4. Facial Palsy: 0=Normal symmetric movement 5a. Motor left arm: 0=No drift, limb holds 90 (or 45) degrees for full 10 seconds 5b. Motor right arm: 0=No drift, limb holds 90 (or 45) degrees for full 10 seconds 6a. motor left le=No drift, limb holds 90 (or 45) degrees for full 10 seconds 6b Motor right le=No drift, limb holds 90 (or 45) degrees for full 10 seconds 7. Limb Ataxia: 0=Absent 8. Sensory: 0=Normal; no sensory loss 9. Best Language: 0=No aphasia, normal 10. Dysarthria: 0=Normal 11. Extinction and Inattention: 0=No abnormality 12. Distal motor function: 0=Normal Total: 0 Discharge Medications: Medication List START taking these medications amoxicillin-clavulanate 875-125 MG tablet Commonly known as: Augmentin Take 1 tablet by mouth every 12 hours for 10 days. fluticasone 50 MCG/ACT nasal spray Commonly known as: Flonase Administer 2 sprays into each nostril daily. Shake gently. Before first use, prime pump. After use, clean tip and replace cap. Start taking on: May 23, 2025 CONTINUE taking these medications atorvastatin 10 MG tablet Commonly known as: Lipitor meloxicam 15 MG tablet Commonly known as: Mobic Where to Get Your Medications These medications were sent to [facility]/pharmacy #[id number] - [facility] [address] [facility] [address] [address] amoxicillin-clavulanate 875-125 MG tablet fluticasone 50 MCG/ACT nasal spray Recommended Follow-up: Laquita Ding, DO [address] [facility] [id number] Schedule an appointment as soon as possible for a visit in 1 week(s) for medical follow up for hospital ENT Schedule an appointment as soon as possible for a visit in 1 week(s) for medical follow up for hospital Complexity of Follow up: [] Moderate Complexity: follow up within 7-14 calendar days (35840) [x] Severe Complexity: follow up within 7 calendar days (34944) Follow up Testing, Pending results or Referrals at Transitional Care Visit: [x] Yes, follow-up with ENT for septal deviation with PCP for sinusitis [] no Instructions to MA: Please call patient on day after discharge (must document patient contacted within 2 business days of discharge). Follow up questions for MA: 1. Did you get medications filled and taking them as instructed from discharge? 2. Are you following your discharge instructions from your hospital stay? 3. Please confirm patient is scheduled for a follow up appointment within the above time frame. Signed: José Antonio Woodruff MD [facility] [place] 05/22/2025, 6:21 PM [1] Past Medical History: Diagnosis Date Arthritis SVT (supraventricular tachycardia) (HCC) Syncope documented in this encounter [facility] 05-22-2025 Note PROGRESS NOTE. NEURO LOGY Patient Name:Joseph Brown Patient : 1955 Acct: [id number] Date of Admission: 05/20/2025 [facility]: [facility] PCP: Laquita Ding DO Patient location regularfloor Remains in the hospital due to persistent unresolved acute issues, Subjective: New Complain: Patient reports no new issues overnight. Dizziness is decreasing. Now only has it for a few seconds if he bends over and sits back up. He was able to lie in bed all night for for MRI without dizziness. States sinuses are clogged. Sedation:No Diet/TF:regular Nance: No VTE prophylaxis: YES Lovenox Activity: Up walking Current Hospital Medications: Current Medications[1] Continuous Infusions: Continuous Meds[2] Allergies: Patient has no known allergies. ROS: Review of Systems Neurological: Positive for dizziness (improving). All other systems reviewed and are negative. Objective: Physical Examination: Patient Vitals for the past 8 hrs: BP Temp Temp src Pulse Resp SpO2 05/22/25 0812 122/69 36.1 ?C (96.9 ?F) Temporal 74 20 99 % 05/22/25 0627 119/83 36.2 ?C (97.1 ?F) Temporal 67 18 99 % I/O last 3 completed shifts: In: - (0 mL/kg) Out: 3 (0 mL/kg) [Urine:3 (0 mL/kg/hr)] Weight: 106.6 kg General Physical Examination: General: sittin gin bedside chair eating lunch. HEENT:Normocephalic, atraumaticl CV: S1+S2, RRR, no MRG. Pulm:CTA b/l, unlabored Abdomen: Soft NT/ND. BS + Skin: Intact without ulcers, breakdowns or discoloration Extremities: normal with no edema or cyanosis Orthopedic limitation; No Pulses: Intact peripherally Carotid auscultation :No bruits Neurological Examination: Higher Functions: Mental Status Exam: Level of Alertness:Awake Orientation: Normal toself, time, place Memory: Normal Fund of Knowledge: Normal Language: Normal Dysarthria not present Cranial Nerves: -II Visual acuity: normal -III-IV- Extraocular Movements: intact -Nystagmus not present -Saccades and pursuits normal -V Facial sensation: intact Corneal's Intact bilateral -VII Facial strength:intact -VIII Hearing: intact -IX-X - Gag reflex present -X Palate: intact -XI Shoulder shrug: intactnormal -XII Tongue movement: normal MotorExamination: Tone after evaluation of 4 limbs, the following findings applied: Normal -Bulk: normal -Muscle Stretch afterevaluation of all limbs, and axial musculature the following findings applied: Drift: absent normal -Reflexes: after evaluation of 4 limbs, the following findings applied ; normal all limbs Sensory Intact to light touch, pain / temperature, proprioception, Coordination: Arms Normal finger to nose Legs Intact heel knee sexton testing Tremors not present Gait Normal Negative romberg today ANCILLARY Last 24hrs Recent Results (from the past 24 hours) Hemoglobin A1c Collection Time: 05/22/25 1:20 AM Result Value Ref Range HEMOGLOBIN A1C 5.4 <5.7 %HbA1C ESTIMATED AVERAGE GLUCOSE 108 mg/dL Lipid panel - fasting Collection Time: 05/22/25 1:20 AM Result Value Ref Range TRIGLYCERIDE 92 <150 mg/dL CHOLESTEROL 139 <200 mg/dL HDL CHOLESTEROL 44 (L) >=60 mg/dL CHOL/HDL 3 VERY LOW DENSITY LIPOPROTEIN, CALCULATED 18 <=30 mg/dL NON-HDL CHOLESTEROL, CALCULATED 95 <130 LOW DENSITY LIPOPROTEIN 77 0 - <100 mg/dL CBC Collection Time: 05/22/25 1:20 AM Result Value Ref Range Auto WBC 8.2 3.6 - 10.7 10*3/uL RBC 4.63 4.40 - 5.90 10*6/uL Hemoglobin 14.2 13.0 - 18.0 g/dL Hematocrit 43.3 40.0 - 52.0 % MCV 93.5 77.0 - 99.0 fL MCH 30.7 26.0 - 34.0 pg MCHC 32.8 30.5 - 36.0 % RDW 14.0 11.5 - 15.0 % Platelets 184 140 - 440 10*3/uL MPV 10.4 9.0 - 12.7 fL Comprehensive metabolic panel Collection Time: 05/22/25 1:20 AM Result Value Ref Range SODIUM 142 136 - 145 mmol/L POTASSIUM 4.5 3.5 - 5.1 mmol/L CHLORIDE 112 (H) 98 - 107 mmol/L CARBON DIOXIDE 22 (L) 23 - 31 mmol/L ANION GAP 8 3 - 13 mmol/L UREA NITROGEN 19 9 - 23 mg/dL CREATININE 0.83 0.72 - 1.25 mg/dL GLUCOSE 101 82 - 115 mg/dL CALCIUM 8.7 (L) 8.8 - 10.0 mg/dL AST (SGOT) 23 <34 U/L ALT 19 <40 U/L ALKALINE PHOSPHATASE 59 40 - 150 U/L ALBUMIN 3.5 3.4 - 4.8 g/dL BILIRUBIN, TOTAL 0.4 <1.2 mg/dL TOTAL PROTEIN 6.4 6.4 - 8.3 g/dL eGFR >90.0 >60.0 mL/min/1.73m*2 No results for input(s): PH, PO2, PCO2, HCO3, O2SAT in the last 72 hours. No lab exists for component: BE Cultures: Blood culture #1: No lab exists for component: BC Blood culture #2: No lab exists for component: BLOODCULT2 Antiepileptic levels: No results for input(s): PHENYTOIN, PHENOBARB, VALPROATE in the last 72 hours. No lab exists for component: CARBTOT, LAMOTRIG, KEPPRA Coagulation: No results for input(s): INR in the last 72 hours. CSF: No results for input(s): CULTURE, PROTEIN in the last 72 hours. No lab exists for component: CHARCSF, CELL COUNT, GRA (more content not included)... [facility] 05-22-2025 History of Presen t illness Narrative PROGRESS NOTE. NEUROLOGY Patient Name:Joseph Brown Patient : 1955 Acct: [id number] Date of Admission: 05/20/2025 Room[facility]: [facility] A PCP: Laquita Ding DO Patient location regularfloor Remains in the hospital due to persistent unresolved acute issues, Subjective: New Complain: Patient reports no new issues overnight. Dizziness is decreasing. Now only has it for a few seconds if he bends over and sits back up. He was able to lie in bed all night for for MRI without dizziness. States sinuses are clogged. Sedation:No Diet/TF:regular Nance: No VTE prophylaxis: YES Lovenox Activity: Up walking Current Hospital Medications: Current Medications[1] Continuous Infusions: Continuous Meds[2] Allergies: Patient has no known allergies. ROS: Review of Systems Neurological: Positive for dizziness (improving). All other systems reviewed and are negative. Objective: Physical Examination: Patient Vitals for the past 8 hrs: BP Temp Temp src Pulse Resp SpO2 05/22/25 0812 122/69 36.1 C (96.9 F) Temporal 74 20 99 % 05/22/25 0627 119/83 36.2 C (97.1 F) Temporal 67 18 99 % I/O last 3 completed shifts: In: - (0 mL/kg) Out: 3 (0 mL/kg) [Urine:3 (0 mL/kg/hr)] Weight: 106.6 kg General Physical Examination: General: sitfuller hospital bedside chair eating lunch. HEENT:Normocephalic, atraumaticl CV: S1+S2, RRR, no MRG. Pulm:CTA b/l, unlabored Abdomen: Soft NT/ND. BS + Skin: Intact without ulcers, breakdowns or discoloration Extremities: normal with no edema or cyanosis Orthopedic limitation; No Pulses: Intact peripherally Carotid auscultation :No bruits Neurological Examination: Higher Functions: Mental Status Exam: Level of Alertness:Awake Orientation: Normal toself, time, place Memory: Normal Fund of Knowledge: Normal Language: Normal Dysarthria not present Cranial Nerves: -II Visual acuity: normal -III-IV- Extraocular Movements: intact -Nystagmus not present -Saccades and pursuits normal -V Facial sensation: intact Corneal's Intact bilateral -VII Facial strength:intact -VIII Hearing: intact -IX-X - Gag reflex present -X Palate: intact -XI Shoulder shrug: intactnormal -XII Tongue movement: normal MotorExamination: Tone after evaluation of 4 limbs, the following findings applied: Normal -Bulk: normal -Muscle Stretch afterevaluation of all limbs, and axial musculature the following findings applied: Drift: absent normal -Reflexes: after evaluation of 4 limbs, the following findings applied ; normal all limbs Sensory Intact to light touch, pain / temperature, proprioception, Coordination: Arms Normal finger to nose Legs Intact heel knee sexton testing Tremors not present Gait Normal Negative romberg today ANCILLARY Last 24hrs Recent Results (from the past 24 hours) Hemoglobin A1c Collection Time: 05/22/25 1:20 AM Result Value Ref Range HEMOGLOBIN A1C 5.4 <5.7 %HbA1C ESTIMATED AVERAGE GLUCOSE 108 mg/dL Lipid panel - fasting Collection Time: 05/22/25 1:20 AM Result Value Ref Range TRIGLYCERIDE 92 <150 mg/dL CHOLESTEROL 139 <200 mg/dL HDL CHOLESTEROL 44 (L) >=60 mg/dL CHOL/HDL 3 VERY LOW DENSITY LIPOPROTEIN, CALCULATED 18 <=30 mg/dL NON-HDL CHOLESTEROL, CALCULATED 95 <130 LOW DENSITY LIPOPROTEIN 77 0 - <100 mg/dL CBC Collection Time: 05/22/25 1:20 AM Result Value Ref Range Auto WBC 8.2 3.6 - 10.7 10*3/uL RBC 4.63 4.40 - 5.90 10*6/uL Hemoglobin 14.2 13.0 - 18.0 g/dL Hematocrit 43.3 40.0 - 52.0 % MCV 93.5 77.0 - 99.0 fL MCH 30.7 26.0 - 34.0 pg MCHC 32.8 30.5 - 36.0 % RDW 14.0 11.5 - 15.0 % Platelets 184 140 - 440 10*3/uL MPV 10.4 9.0 - 12.7 fL Comprehensive metabolic panel Collection Time: 05/22/25 1:20 AM Result Value Ref Range SODIUM 142 136 - 145 mmol/L POTASSIUM 4.5 3.5 - 5.1 mmol/L CHLORIDE 112 (H) 98 - 107 mmol/L CARBON DIOXIDE 22 (L) 23 - 31 mmol/L ANION GAP 8 3 - 13 mmol/L UREA NITROGEN 19 9 - 23 mg/dL CREATININE 0.83 0.72 - 1.25 mg/dL GLUCOSE 101 82 - 115 mg/dL CALCIUM 8.7 (L) 8.8 - 10.0 mg/dL AST (SGOT) 23 <34 U/L ALT 19 <40 U/L ALKALINE PHOSPHATASE 59 40 - 150 U/L ALBUMIN 3.5 3.4 - 4.8 g/dL BILIRUBIN, TOTAL 0.4 <1.2 mg/dL TOTAL PROTEIN 6.4 6.4 - 8.3 g/dL eGFR >90.0 >60.0 mL/min/1.73m*2 No results for input(s): PH, PO2, PCO2, HCO3, O2SAT in the last 72 hours. No lab exists for component: BE Cultures: Blood culture #1: No lab exists for component: BC Blood culture #2: No lab exists for component: BLOODCULT2 Antiepileptic levels: No results for input(s): PHENYTOIN, PHENOBARB, VALPROATE in the last 72 hours. No lab exists for component: CARBTOT, LAMOTRIG, KEPPRA Coagulation: No results for input(s): INR in the last 72 hours. CSF: No results for input(s): CULTURE, PROTEIN in the last 72 hours. No lab exists for component: CHARCSF, CELL COUNT, GRAM STAIN Stroke Specific: Lipids: Recent Labs 05/22/25 0120 CHOL 139 TRIG 92 HDL 44* HgA1c: No lab exists for component: LABA1C CT head: 05/21/25 IMPRESSION: 1. No acute intracranial abnormalities. 2. Chronic sinonasal polyposis bilaterally. MRI: 05/21/25 IMPRESSION: 1. No acute intracranial findings. 2. Paranasal sinus disease, including possible sinonasal polyposis. MRA head/neck 05/21/25- IMPRESSION: 1. No intracranial large vessel occlusion or significant stenosis. IMPRESSION: 1. No significant cervical ICA stenosis (50% or less) by NASCET criteria. ASSESSMENT / PLAN/RECOMMENDATIONS: Dizziness- Improving Paranasal sinus disease seen on MRI, otherwise no explanation on MRI brain or MRA. Dizziness likely related to paranasal sinus disease. He was following with ENT; continue. Neurology is signing off. Patient seen and discussed with Dr. James 25 minutes of my independent time was spent preparing to see the patient, obtaining/reviewing spearately obtained history, completing appropriate medication examination of the patient, ordering medications/tests/procedures, documenting clinical information on EMR. An additional 10 mins was was spent discussing assessment/plan with Dr. James. [1] Current Facility-Administered Medications: acetaminophen (Tylenol) tablet 650 mg, 650 mg, Oral, q6h PRN OR acetaminophen (Tylenol) suppository 650 mg, 650 mg, Rectal, q6h PRN, Julian Marmolejo MD amoxicillin-clavulanate (Augmentin) 875-125 MG per tablet 1 tablet, 875 mg, Oral, 2 times per day, José Antonio Woorduff MD aspirin EC tablet 81 mg, 81 mg, Oral, Daily, 81 mg at 05/22/25817 OR aspirin suppository 300 mg, 300 mg, Rectal, Daily, José Antonio Woodruff MD atorvastatin (Lipitor) tablet 40 mg, 40 mg, Oral, Daily, Julian Marmolejo MD, 40 mg at 05/22/25817 bisacodyl (Dulcolax) suppository 10 mg, 10 mg, Rectal, Daily PRN, José Antonio Woodruff MD enoxaparin (Lovenox) syringe 40 mg, 40 mg, SubCUTAneous, Daily, José Antonio Woodruff MD, 40 mg at 05/22/25817 fluticasone (Flonase) nasal spray 2 spray, 2 spray, Each Nostril, Daily, José Antonio Woodruff MD labetalol (Normodyne,Trandate) injection 10 mg, 10 mg, IntraVENous, q10 min PRN, José Antonio Woodruff MD meloxicam (Mobic) tablet 15 mg, 15 mg, Oral, Daily, Julian Marmolejo MD, 15 mg at 05/22/25817 ondansetron ODT (Zofran-ODT) disintegrating tablet 4 mg, 4 mg, Oral, q8h PRN OR ondansetron (Zofran) injection 4 mg, 4 mg, IntraVENous, q6h PRN, Julian Marmolejo MD polyethylene glycol (PEG) 3350 (Miralax) packet 17 g, 17 g, Oral, Daily PRN, José Antonio Woodruff MD [2] Images from the original note were not included. OCCUPATIONAL THERAPY [facility] Name/MRN: Joseph Brown ([id number]) Date: 05/22/2025 Therapy eval and treat orders received for if Elena < 100 and below baseline. Elena noted to be 100 this admission. Will discontinue orders at this time. Should pt demo a change in status, please reorder OT services. Mikie Chavira OT Images from the original note were not included. PHYSICAL THERAPY [facility] Name/MRN: Joseph Brown ([id number]) Date: 05/22/2025 Chart review completed, pt currently has a Elena score of 100 with PT orders to eval and treat with Elena score <100. Will complete current orders. Please re-order if status changes. Lissette Cruz PT Speech-Language Pathology Patient passed the Nursing Swallowing Screening. As per stroke policy, no formal dysphagia evaluation is required. Completed speech orders. Images from the original note were not included. OCCUPATIONAL THERAPY [facility] Name/MRN: Joseph Brown ([id number]) Date: 05/21/2025 Therapy eval and treat orders received. Chart review complete and spoke with evaluating physical therapist. Pt is currently IND for transfers / mobility without a device and demonstrates no current concerns for home going at this time. Will discontinue orders at this time. Should pt demo a change in status, please reorder OT services. Mikie Chavira OT Images from the original note were not included. PHYSICAL THERAPY [facility] Initial Evaluation Name/MRN: Joseph Brown ([id number]) Evaluation Date: 05/21/2025 Date of : 1955 Admission Date: 05/20/2025 11:16 PM Age: 69 y.o. Room/Bed: B4-454/B4-454 A Discharge Recommendation: Home independently Equipment Needed: No Assessment IMPRESSION: Pt admitted to ED on 05/21/2025 with dizziness. Prior to admission, pt lived with and performed mobility Independently . Upon eval, pt required no assistance for bed mobility, he was independent for transfers, independent for gait/ambulation with no assistive device used. Pt would benefit from skilled PT services in order to increase safety and independence in functional mobility and daily tasks. Recommend home independently upon DC. Admitting Diagnosis: dizziness Prognosis: excellent Performance Deficits /Impairments: N/A Decision Making: Low Complexity Subjective Pt in bed agreeable to PT Per RN pt okay for therapy. Pain: Pt denies any current pain. Past Medical History: Medical History[1] Past Surgical History: Surgical History[2] Admission Diagnosis: Patient Active Problem List Diagnosis Date Noted Dizziness 05/21/2025 Class 1 obesity due to excess calories without serious comorbidity with body mass index (BMI) of 30.0 to 30.9 in adult 09/22/2021 Chronic low back pain without sciatica 09/22/2021 History of DVT (deep vein thrombosis) 09/22/2021 Chronic respiratory failure with hypoxia ([facility]) 11/24/2020 Acute deep vein thrombosis (DVT) of both lower extremities ([facility]) 11/04/2020 Essential hypertension 11/04/2020 Pneumonia due to COVID-19 virus 11/04/2020 BPH without obstruction/lower urinary tract symptoms 11/04/2020 SVT (supraventricular tachycardia) ([facility]) 11/04/2020 ARDS (adult respiratory distress syndrome) ([facility]) 10/24/2020 Syncope 09/12/2017 Epididymal cyst 01/25/2017 Medical Precautions: No active isolations Proper PPE donned/doffed in accordance with facility standards. Fall Risk: (Low Risk) Precautions/Restrictions: N/A Family/Caregiver Present: none Overall Cognitive Status: WFL Overall Orientation Status: Oriented x4 Vision: wears glasses at all times and and are being used during the eval Hearing: normal Social/Functional History Patient admitted from home. 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 Slight dizziness noted, but resolved within 15 seconds. Transfers Sit to stand: Independent Stand to sit: Independent Pt was able to complete a STS transfer Independently at this time. Slight dizziness upon standing, but again resolved within a couple seconds. Ambulation Ambulation 1 Assistive device(s) used: None Assist level: Independent Distance (ft): 250 feet Quality of gait: No gait deviations Pt was able to ambulate about 250 feet independently at this time. No LOB noted. No SOB or dizziness reported. Pt perfromed tasks safely. Stairs Pt was able to ascend and descend 6 steps Independently with a reciprocal pattern seen. Outcome Measures AM-PAC How much HELP from another person do you currently need Turning from your back to your side while in a flat bed without using bedrails?: None Moving from lying on your back to sitting on the side of a flat bed without using bedrails?: None Moving to and from a bed to a chair (including a wheelchair)?: None Standing up from a chair using your arms (wheelchair or bedside chair)?: None Walking in a hospital room?: None Stair climbing assessed?: Yes Climbing 3-5 steps with a railing?+: None AM-PAC Inpatient Mobility Raw Score : 24 AM-PAC Inpatient Mobility Raw Score (No Stairs) : 20 JH-HLM JH-HLM Score: Walked 250 ft or more (i.e. several laps on unit) Plan No skilled acute PT indicated at this time. Please reconsult should changes occur. Safety/Education Safety Safety Devices in place: All fall risk precautions in place and gait belt Restraints: No Education Education Given To: patient Education Provided: PT Role, PT Goals, Discharge Recommendations, and Benefits of Increasing Activity Education Method: Verbal Barriers to Learning: None Education Outcome: Verbalized Understanding and Demonstrated Understanding Goals Patient Stated Goal: Pt wants to return home with at this time. Encounter Problems Encounter Problems (Active) Balance Patient will maintain dynamic standing balance for 8 minutes with independence in order to demonstrate decreased risk of falling. Start: 05/21/25 Expected End: 05/30/25 Mobility Patient will ambulate 200 feet with independence and no assistive device in order to improve safety and independence with mobility. Start: 05/21/25 Expected End: 05/30/25 Patient will ascend and descend 3 stairs with one railing and modified independence in order to safely negotiate home. Start: 05/21/25 Expected End: 05/30/25 Transfers Patient will perform bed mobility with independence in order to improve independence and prepare for out of bed mobility. Start: 05/21/25 Expected End: 05/30/25 Patient will complete functional transfer with no assistive device with independence in order to prepare for ambulation. Start: 05/21/25 Expected End: 05/30/25 Therapy Time Individual Co-Treatment Co-Evaluation Time In 0945 Time Out 0958 Minutes 13 Samantha Johnson PT Patient's Physical Therapy Plan of Care supervision is transferred to a [facility] Physical Therapist. Goals and/or treatment plan was established in collaboration with patient/family/other representatives. [1] Past Medical History: Diagnosis Date Arthritis SVT (supraventricular tachycardia) (HCC) Syncope [2] Past Surgical History: Procedure Laterality Date AMPUTATION fingers CHOLECYSTECTOMY documented in this encounter [facility] 05-22-2025 Note Care Management Prog ress Note Short Medical why still here: Patient remains on 4S today for complaints of dizziness/KENT. Neurology consulted to see. CT head/MRI brain complete. No acute findings/no significant stenosis. CT head showed some nasal polyps/MRI some paranasal sinus disease/polyposis. EKG SR. Swallow eval passed. Patient independent Planned Discharge Disposition: Home with spouse Barriers/Today we still Wait: Clinical stability, Supply Chain Generalist recommendations (Neuro) Length of Stay (Days): 0 GMLOS: No GMLOS Documented [facility] 05-22-2025 Progress note Formatting of t his note might be different from the original. Care Management Progress Note Short Medical why still here: Patient remains on 4S today for complaints of dizziness/KENT. Neurology consulted to see. CT head/MRI brain complete. No acute findings/no significant stenosis. CT head showed some nasal polyps/MRI some paranasal sinus disease/polyposis. EKG SR. Swallow eval passed. Patient independent Planned Discharge Disposition: Home with spouse Barriers/Today we still Wait: Clinical stability, Supply Chain Generalist recommendations (Neuro) Length of Stay (Days): 0 GMLOS: No GMLOS Documented [facility] 05-22-2025 Hospital Discharg e instructions Seema Lizarraga RN - 05/22/2025 7:07 AM EDT Refer to the Understanding Stroke Booklet given to you, written material provided to patient/family, addressing all signs & symptoms of a stroke, which are: sudden numbness or weakness of the face, arm or leg, especially on one side of the body sudden confusion sudden difficulty speaking or understanding sudden trouble seeing in one or both eyes sudden trouble walking,dizziness, loss of balance or coordination sudden severe headache with no known cause syncope or temporary loss of consciousness seizure Explained the need to call EMS ([phone]) immediately if signs & symptoms occur. Discussed medications that the patient is taking, will review medications again prior to discharge, risk factors, and the need for follow-up with a physician/APPLICATION PROCESSOR/PA after discharge. Seema Lizarraga RN on 05/22/25 at 7:06 AM Discussed the patient s personal risk factors for Stroke /TIA with patient/family, and ways to reduce the risk for a recurrent stroke. Patient's personal risk factors which were identified are: [] High blood pressure [] High cholesterol [] Atrial fibrillation [] Diabetes [] Smoking/e-cigarettes/vaping [] Smokeless tobacco [] Overweight [] Lack of Exercise [] Sleep apnea [] Prior heart disease or heart attack [] Excessive alcohol use [] Marijuana/cannabis use [] Illicit drug use [] Personal history of previous TIA or stroke [] Family history of stroke or heart disease [] Carotid stenosis [] Heart failure [] Patent Foramen Ovale [] Migraine [] Hormone replacement therapy [] Current (up to six weeks post ) [] Depression [] Sickle Cell [] Renal insufficiency - chronic [] None Refer to Understanding Stroke Booklet. Advised patient that risk for stroke/TIA can be reduced by modifying/controlling risk factors. Patient advised to take medications as prescribed, which will be detailed in the discharge instructions, and to not stop taking them without consulting a physician. In addition, pt. advised to maintain a healthy diet, exercise regularly and to not smoke. Seema Lizarraga RN on 05/22/25 at 7:06 AM José Antonio Woodruff MD - 05/22/2025 2:58 PM EDT As tolerated José Antonio Woodruff MD - 05/22/2025 2:58 PM EDT Dietary Orders (From admission, onward) Start Ordered 05/21/252235 Adult diet Regular Diet effective now Question: Diet type Answer: Regular 05/21/252234 José Antonio Woodruff MD - 05/22/2025 2:58 PM EDT Need to follow up with ENT re paranasal sinusitis The following attachments cannot be sent through Care Everywhere.Vertigo (a Type of Dizziness) ([place] Citizen)documented in this encounter [facility] 05-22-2025 Note Speech-[place]ang[place] Heater ology Patient passed the Nursing Swallowing Screening. As per stroke policy, no formal dysphagia evaluation is required. Completed speech orders. [facility] 05-21-2025 Consult note Formatting of th is note is different from the original. INITIAL CONSULT NOTE. NEUROLOGY Patient Name: Joseph Brown Patient : 1955 Acct: [id number] Date of Admission: 05/20/2025 Room/Bed: B4-454/B4454 A PCP: Laquita Ding DO History of Present Ilness: 69 y.o. male with the chief Complaint of:dizziness Complain :room moves when lying down on bed or with position changes x 2 days Evolution: if he sits back up and holds still, the dizziness with resolve in about 5 mins. Tried a meclizine without resolution. Associated symptoms: dull headache back of head; mild nausea Denies hearing loss, tinnitus, vomiting, diplopia, dysarthria, dysphasia, gait instability, unilateral N/T or weakness, chest pain, SOB, or palpitations Denies medication changes, new supplements, recent illness/infection Had same symptoms 01/07; was told he has full impacted sinuses; treated with meclizine and nasal spray; is supposed to have surgery for deviated septum. Otherwise, has never experienced this before; no vestibular therapy. CT head at that time was negative for acute changes, but showed extensive paranasal sinus disease. CTA at that time showed less than 30% stenosis bilateral internal carotids and patent vertebral arteries bilaterally. 2 weeks ago he had hot prick sensation every 30-40 secs lasting 1 week to left parietal region. Took tylenol to resolve. 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 No assoc neck pain. Past Medical History: SVT, syncope Past Surgical History: Kasandra, fingers amputation Home Medications: Prior to Admission medications Medication Sig Start Date End Date Taking? Authorizing Provider atorvastatin (Lipitor) 10 MG tablet Take 10 mg by mouth daily. Historical Provider, meloxicam (Mobic) 15 MG tablet Take 1 tablet by mouth daily. Historical Provider, Current Hospital Medications: Current Medications[1] Continuous Infusions: Continuous Meds[2] Allergies: Patient has no known allergies. Social History: TOBACCO: reports that he quit smoking about 42 years ago. His smoking use included cigarettes. He quit smokeless tobacco use about 43 years ago. ETOH: reports no history of alcohol use. RECREATIONAL DRUG USE: Social History Substance and Sexual Activity Drug Use No Family History: :Unable to obtain, due to patient level of consciousness, no data on file, no family able to provide information ROS; :A complete review of system was performed , pertinent positives noted and remainder are negative Review of Systems HENT: Negative for trouble swallowing. Eyes: Negative for visual disturbance. Respiratory: Negative for shortness of breath. Neurological: Positive for dizziness and headaches. Negative for syncope, speech difficulty and weakness. All other systems reviewed and are negative. Physical Examination: Patient Vitals for the past 8 hrs: BP Temp Temp src Pulse Resp SpO2 05/21/25 0806 130/77 (!) 35.9 C (96.6 F) Temporal 64 18 99 % 05/21/25 0649 139/75 36.1 C (97 F) Temporal 65 20 99 % No intake/output data recorded. General Physical Examination: General: sitting in bedside chair HEENT:Normocephalic, atraumaticl CV: S1+S2, RRR, no MRG. Pulm:CTA b/l, unlabored Abdomen: Soft NT/ND. BS + Skin: Intact without ulcers, breakdowns or discoloration Extremities: normal with no edema or cyanosis Orthopedic limitation; No Pulses: Intact peripherally Carotid auscultation :No bruits Neurological Examination: Higher Functions: Mental Status Exam: Level of Alertness:Awake Orientation: Normal to self, time, place Memory: Normal Fund of Knowledge: Normal Language: Normal Dysarthria not present Cranial Nerves: -II Visual acuity: normal -II Visual westfall: normal -III Pupils (~ 3 mm OD, 3 mm OU) equal, round, reactive to light -III-IV- Extraocular Movements: intact; no skew deviation; questionable + impulse test on left -Nystagmus not present -Saccades and pursuits normal -V Facial sensation: intact Corneal's Intact bilateral -VII Facial strength: intact -VIII Hearing: intact -IX-X- Gag reflex present -X Palate:intact -XI Shoulder shrug: intact -XII Tongue movement: normal Funduscopic Exam: normal, no edema or exudates both eyes Motor Examination: Tone after evaluation of 4 limbs, the following findings applied: Normal -Bulk: normal -Muscle Stretchafter evaluation of all limbs, and axial musculature the following findings applied: Drift: absent, pronation on left normal -Reflexes: after evaluation of 4 limbs, the following findings applied ; normal all limbs Sensory Intact to light touch, pain / temperature, proprioception, Coordination: Arms Normal finger to nose Legs Intact heel knee sexton testing Tremors not present Gait normal + romberg NIH Stroke Score: 1A: Level of Consciousness [x] Alert; keenly responsive 0 [] Arouses to minor stimulation +1 [] Requires repeated stimulation to arouse +2 [] Movements to Pain +2 [] Postures or Unresponsive +3 1B: Ask Month and Age [x] Both Questions Right 0 [] 1 Question Right +1 [] 0 Questions Right +2 [] Dysarthric/Intubated/ Trauma/Language Barrier +1 [] Aphasic +2 1C: 'Blink Eyes' & 'Squeeze Hands' [x] Performs Both Tasks 0 [] Performs 1 Task+1 [] Performs 0 Tasks+2 2: Horizontal Extraocular Movements [x] Normal 0 [] Partial Gaze Palsy: Can Be Overcome +1 [] Partial Gaze Palsy: Corrects with Oculocephalic Reflex +1 [] Forced Gaze Palsy: Cannot Be Overcome +2 3: Visual [place] [x] No Visual Loss 0 [] Partial Hemianopia +1 [] Complete Hemianopia +2 [] Patient is Bilaterally Blind +3 [] Bilateral Hemianopia +3 4: Test Facial Palsy (Use Grimace if Obtunded) [x] Normal symmetry 0 [] Minor paralysis (flat nasolabial fold, smile asymetry) +1 [] Partial paralysis (lower face) +2 [] Unilateral Complete paralysis (upper/lower face) +3 [] Bilateral Complete paralysis (upper/lower face) +3 5A: Left Arm Motor [] Amputation/Joint Fusion 0 [x] No Drift for 10 Seconds 0 [] Drift, but doesn't hit bed +1 [] Drift, hits bed +2 [] Some Effort Against [place] +2 [] No Effort Against [place] +3 [] No Movement +4 5B: Right Arm Motor [] Amputation/Joint Fusion 0 [x] No Drift for 10 Seconds 0 [] Drift, but doesn't hit bed +1 [] Drift, hits bed +2 [] Some Effort Against [place] +2 [] No Effort Against [place] +3 [] No Movement +4 6A: Left Leg Motor [] Amputation/Joint Fusion 0 [x] No Drift for 5 Seconds 0 [] Drift, but doesn't hit bed +1 [] Drift, hits bed +2 [] Some Effort Against [place] +2 [] No Effort Against [place] +3 [] No Movement +4 6B: Right Leg Motor [] Amputation/Joint Fusion 0 [x] No Drift for 5 Seconds 0 [] Drift, but doesn't hit bed +1 [] Drift, hits bed +2 [] Some Effort Against [place] +2 [] No Effort Against [place] +3 [] No Movement +4 7: Limb Ataxia [] Amputation/Joint Fusion 0 [] Does Not Understand 0 [] Paralyzed 0 [x] No Ataxia 0 [] Ataxia in 1 Limb +1 [] Ataxia in 2 Limbs +2 8: Sensation [] Normal; No sensory loss 0 [x] Mild-Moderate Loss: Less Sharp/More Dull +1 [] Mild-Moderate Loss: Can Sense Being Touched +1 [] Complete Loss: Cannot Sense Being Touched At All +2 [] No Response and Quadriplegic +2 [] Coma/Unresponsive +2 9: Language/Aphasia [x] Normal; No aphasia 0 [] Mild-Moderate Aphasia: Some Obvious Changes, Without Significant Limitation +1 [] Severe Aphasia: Fragmentary Expression, Inference Needed, Cannot Identify materials +2 [] Mute/Global Aphasia: No Usable Speech/Auditory Comprehension +3 [] Coma/Unresponsive +3 10: Dysarthria [] Intubated/Unable to Test 0 [x] Normal 0 [] Mild-Moderate Dysarthria: Slurring but can be understood +1 [] Severe Dysarthria: Unintelligble Slurring or Out of Proportion to Dysphasia +2 [] Mute/Anarthric +2 11: Extinction/Inattention [x] No abnormality 0 [] Visual/tactile/auditory/spatial /personal inattention +1 [] Extinction to bilateral simultaneous stimulation +1 [] Profound adria-inattention (ex: does not recognize own hand) +2 [] Extinction to >1 modality +2 NIH score is 0. Results Labs: Last 24hrs Recent Results (from the past 24 hours) ECG 12 lead Collection Time: 05/20/25 10:26 PM Result Value Ref Range Heart Rate 64 bpm QRSD Interval 98 ms QT Interval 410 ms QTC Interval 422 ms P Conway 47 degrees QRS Conway 6 degrees T Wave Conway 44 degrees MS Interval 128 ms CBC auto differential Collection Time: 05/21/25 12:07 AM Result Value Ref Range Auto WBC 8.7 3.6 - 10.7 10*3/uL RBC 4.43 4.40 - 5.90 10*6/uL Hemoglobin 13.7 13.0 - 18.0 g/dL Hematocrit 41.1 40.0 - 52.0 % MCV 92.8 77.0 - 99.0 fL MCH 30.9 26.0 - 34.0 pg MCHC 33.3 30.5 - 36.0 % RDW 13.8 11.5 - 15.0 % Platelets 179 140 - 440 10*3/uL MPV 10.6 9.0 - 12.7 fL nRBC 0.0 0.0 - 2.0 /100 WBCs Neutrophils Relative 64.3 38.0 - 82.0 % Lymphocytes Relative 20.8 15.0 - 45.0 % Monocytes Relative 8.7 5.0 - 13.0 % Eosinophils Relative 5.2 0.0 - 6.0 % Basophils Relative 0.5 0.0 - 2.0 % Immature Grans % 0.5 0.0 - 2.0 % Neutrophils Absolute 5.6 1.8 - 7.5 10*3/uL Lymphocytes Absolute 1.8 1.0 - 4.3 10*3/uL Monocytes Absolute 0.8 0.0 - 0.9 10*3/uL Eosinophils Absolute 0.5 0.0 - 0.5 10*3/uL Basophils Absolute 0.0 0.0 - 0.2 10*3/uL Immature Grans Absolute 0.0 <0.1 10*3/uL Comprehensive metabolic panel Collection Time: 05/21/25 12:07 AM Result Value Ref Range SODIUM 142 136 - 145 mmol/L POTASSIUM 4.1 3.5 - 5.1 mmol/L CHLORIDE 111 (H) 98 - 107 mmol/L CARBON DIOXIDE 23 23 - 31 mmol/L ANION GAP 8 3 - 13 mmol/L UREA NITROGEN 17 9 - 23 mg/dL CREATININE 0.89 0.72 - 1.25 mg/dL GLUCOSE 163 (H) 82 - 115 mg/dL CALCIUM 8.7 (L) 8.8 - 10.0 mg/dL AST (SGOT) 25 <34 U/L ALT 18 <40 U/L ALKALINE PHOSPHATASE 66 40 - 150 U/L ALBUMIN 3.5 3.4 - 4.8 g/dL BILIRUBIN, TOTAL 0.4 <1.2 mg/dL TOTAL PROTEIN 6.3 (L) 6.4 - 8.3 g/dL eGFR >90.0 >60.0 mL/min/1.73m*2 Serial Troponin, High Sensitivity Collection Time: 05/21/25 12:07 AM Result Value Ref Range Troponin HS Serial Baseline 5 <=35 ng/L NT PRO BNP Collection Time: 05/21/25 12:07 AM Result Value Ref Range NT PRO BNP 89 <125 pg/mL Troponin, High Sensitivity, Serial, Second Test Collection Time: 05/21/25 2:06 AM Result Value Ref Range 2h Troponin HS (Serial 2nd Troponin) 4 <=35 ng/L Since admission: No results for input(s): CKTOTAL, TROPONINI in the last 72 hours. Recent Labs 05/21/25 0007 ALKPHOS 66 ALT 18 AST 25 BILITOT 0.4 @[facility]) ABGs:)No results for input(s): PH, PO2, PCO2, HCO3, O2SAT in the last 72 hours. No lab exists for component: BE Cultures: Blood culture #1: No lab exists for component: BC Blood culture #2: No lab exists for component: BLOODCULT2 Antiepileptic levels: No results for input(s): PHENYTOIN, PHENOBARB, VALPROATE in the last 72 hours. No lab exists for component: CARBTOT, LAMOTRIG, KEPPRA Coagulation: No results for input(s): INR in the last 72 hours. CSF: No results for input(s): CULTURE, PROTEIN in the last 72 hours. No lab exists for component: CHARCSF, CELL COUNT, GRAM STAIN Stroke Specific: Lipids: No results for input(s): CHOL, TRIG, HDL, AMYLASE, LIPASE in the last 72 hours. No lab exists for component: LDLCHOLESTEROL HgA1c: No lab exists for component: LABA1C Radiology Personal review: CT head 05/21/25- IMPRESSION: 1. No acute intracranial abnormalities. 2. Chronic sinonasal polyposis bilaterally. ASSESSMENT / PLAN / SUGGESTIONS : Dizziness- MRI brain and MRA head/neck ordered Concern for potential dissection given recent neck pain Could be related to sinuses, but positive impulse test, so need to rule out stroke If stroke is suspected, then should implement stroke orders. If imaging is normal, then sinuses likely culprit and he will need to follow up with ENT. 30 minutes of my independent time was spent preparing to see the patient, obtaining/reviewing spearately obtained history, completing appropriate medication examination of the patient, ordering medications/tests/procedures, documenting clinical information on EMR. An additional 10 mins was was spent discussing assessment/plan with Dr. James. Patient seen and discussed with Dr. James [1] Current Facility-Administered Medications: acetaminophen (Tylenol) tablet 650 mg, 650 mg, Oral, q6h PRN OR acetaminophen (Tylenol) suppository 650 mg, 650 mg, Rectal, q6h PRN, Julian Marmolejo MD atorvastatin (Lipitor) tablet 40 mg, 40 mg, Oral, Daily, Julian Marmolejo MD enoxaparin (Lovenox) syringe 40 mg, 40 mg, SubCUTAneous, Daily, Julian Marmolejo MD, 40 mg at 05/21/25 1312 meloxicam (Mobic) tablet 15 mg, 15 mg, Oral, Daily, Julian Marmolejo MD ondansetron ODT (Zofran-ODT) disintegrating tablet 4 mg, 4 mg, Oral, q8h PRN OR ondansetron (Zofran) injection 4 mg, 4 mg, IntraVENous, q6h PRN, Julian Marmolejo MD [2] Cosigned by Zoey James MD at 05/22/2025 2:50 PM EDT Associated attestation - Zoey James MD - 05/22/2025 2:50 PM EDT Neuro Critical Care / stroke Attending Patient date of encounter , Delay attestation secondary to [employer] update ( Separate note for under my BETSEY only ) Patient seen and evaluated with my BETSEY, He reported complaints of dizziness, described as vertigo / light headed, this resembling his complaints few months ago which at the time where thought to be secondary to severe sinusitis , He had the sinusitis treated and symptoms resolved This time the event appeared to have occurred relatively sudently , no other focal or systemic complaints to detail questioning other than fells he is developed some sinusitis again Vitals slight increased BP on and off His exam was significant - BMI 31 % - NO schewed , no nystagmus, question if HIT direction to the right , Other sanches neuro exam was normal for motor, sensory ,coordination and gate Brewer, lung and carotid auscultation was normal . Standing and gait normal - Labs, BMP normal , slight hyperchloremic HDL slight low CBC normal Aic 5.4 MRIs have been obtained since then , we requested them as the examination could not 100 % r/o presence of structural problem of =VB insufficiency Patient 's main risk factor for stroke was BMI, HTN and suspected RODRIGO , as well as prior history of DVT , This where reviewed and considered normal 1. No intracranial large vessel occlusion or significant stenosis. MRA OF THE NECK WITH AND WITHOUT GADOLINIUM CLINICAL INDICATION: Dizziness, persistent/recurrent, cardiac or vascular cause suspected TECHNIQUE: Routine MRA of the neck with and without IV gadolinium. COMPARISON: CTA head and neck, December,. FINDINGS: The bilateral common, internal and external carotid arteries are patent. Mild plaquing in bilateral proximal ICAs, with 50% or less stenosis. Carotid bifurcations have normal contour without significant plaque formation. No occlusion, focal hemodynamically significant stenosis or apparent aneurysm. Vertebral arteries are patent. Left vertebral artery dominant. Left common carotid artery origin from brachiocephalic artery or bovine arch incidentally noted. IMPRESSION: 1. No significant cervical ICA stenosis (50% or less) by NASCET criteria. We also did a CTA because he had a new neck pain while in exertion preceding this symptoms and we where concern for VB dissections MRAs personal review Brain normal and neck with tortuous vessels but not stenotic or dissected Impression - NO stroke or TIA - Peripheral vestibulopathy , - Stroke risks still significant - Obesity - Suspect RODRIGO< Mallampati IV DLP on atorvastatin at home to be continued - Mild dehydration Suggest optimization of hydration Diet and weight loss , Daily 30 min execise If persistent RODRIGO , consider sleep study and treatment , although its likely to improve if he losses weight - I personally interviewed and examined this patient , reviewed , corrected, agreed and attested the note for this patient. I reviewed the chart including MAR, labs, neuroimaging, other imaging studies and discussed my diagnostic impression and patient's plan of care with my BETSEY/resident/ Fellow , student and the consulting team and patient's family members/surrogate decision makers (in cases where the patient is incapacitated and unable to participate in their own care). [x] Encounter Face to Face [x] Consult [x] Time spend [x] 80 [x] Patient was seen on 05/21, time of of the note currently attested , second note 05/22 completed by my BETSEY, who followed up the pateint Thank you Laquita Ding DO for the opportunity to be involved in this patient's care. [facility] 05-21-2025 Consult note Formatting of th is note is different from the original. INITIAL CONSULT NOTE. NEUROLOGY Patient Name: Joseph Brown Patient : 1955 Acct: [id number] Date of Admission: 05/20/2025 Room/Bed: [facility] PCP: Laquita Ding DO History of Present Ilness: 69 y.o. male with the chief Complaint of:dizziness Complain :room moves when lying down on bed or with position changes x 2 days Evolution: if he sits back up and holds still, the dizziness with resolve in about 5 mins. Tried a meclizine without resolution. Associated symptoms: dull headache back of head; mild nausea Denies hearing loss, tinnitus, vomiting, diplopia, dysarthria, dysphasia, gait instability, unilateral N/T or weakness, chest pain, SOB, or palpitations Denies medication changes, new supplements, recent illness/infection Had same symptoms 01/07; was told he has full impacted sinuses; treated with meclizine and nasal spray; is supposed to have surgery for deviated septum. Otherwise, has never experienced this before; no vestibular therapy. CT head at that time was negative for acute changes, but showed extensive paranasal sinus disease. CTA at that time showed less than 30% stenosis bilateral internal carotids and patent vertebral arteries bilaterally. 2 weeks ago he had hot prick sensation every 30-40 secs lasting 1 week to left parietal region. Took tylenol to resolve. 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 No assoc neck pain. Past Medical History: SVT, syncope Past Surgical History: Kasandra, fingers amputation Home Medications: Prior to Admission medications Medication Sig Start Date End Date Taking? Authorizing Provider atorvastatin (Lipitor) 10 MG tablet Take 10 mg by mouth daily. Historical Provider, meloxicam (Mobic) 15 MG tablet Take 1 tablet by mouth daily. Historical Provider, Current Hospital Medications: Current Medications[1] Continuous Infusions: Continuous Meds[2] Allergies: Patient has no known allergies. Social History: TOBACCO: reports that he quit smoking about 42 years ago. His smoking use included cigarettes. He quit smokeless tobacco use about 43 years ago. ETOH: reports no history of alcohol use. RECREATIONAL DRUG USE: Social History Substance and Sexual Activity Drug Use No Family History: :Unable to obtain, due to patient level of consciousness, no data on file, no family able to provide information ROS; :A complete review of system was performed , pertinent positives noted and remainder are negative Review of Systems HENT: Negative for trouble swallowing. Eyes: Negative for visual disturbance. Respiratory: Negative for shortness of breath. Neurological: Positive for dizziness and headaches. Negative for syncope, speech difficulty and weakness. All other systems reviewed and are negative. Physical Examination: Patient Vitals for the past 8 hrs: BP Temp Temp src Pulse Resp SpO2 05/21/25 0806 130/77 (!) 35.9 C (96.6 F) Temporal 64 18 99 % 05/21/25 0649 139/75 36.1 C (97 F) Temporal 65 20 99 % No intake/output data recorded. General Physical Examination: General: sitting in bedside chair HEENT:Normocephalic, atraumaticl CV: S1+S2, RRR, no MRG. Pulm:CTA b/l, unlabored Abdomen: Soft NT/ND. BS + Skin: Intact without ulcers, breakdowns or discoloration Extremities: normal with no edema or cyanosis Orthopedic limitation; No Pulses: Intact peripherally Carotid auscultation :No bruits Neurological Examination: Higher Functions: Mental Status Exam: Level of Alertness:Awake Orientation: Normal to self, time, place Memory: Normal Fund of Knowledge: Normal Language: Normal Dysarthria not present Cranial Nerves: -II Visual acuity: normal -II Visual westfall: normal -III Pupils (~ 3 mm OD, 3 mm OU) equal, round, reactive to light -III-IV- Extraocular Movements: intact; no skew deviation; questionable + impulse test on left -Nystagmus not present -Saccades and pursuits normal -V Facial sensation: intact Corneal's Intact bilateral -VII Facial strength: intact -VIII Hearing: intact -IX-X- Gag reflex present -X Palate:intact -XI Shoulder shrug: intact -XII Tongue movement: normal Funduscopic Exam: normal, no edema or exudates both eyes Motor Examination: Tone after evaluation of 4 limbs, the following findings applied: Normal -Bulk: normal -Muscle Stretchafter evaluation of all limbs, and axial musculature the following findings applied: Drift: absent, pronation on left normal -Reflexes: after evaluation of 4 limbs, the following findings applied ; normal all limbs Sensory Intact to light touch, pain / temperature, proprioception, Coordination: Arms Normal finger to nose Legs Intact heel knee sexton testing Tremors not present Gait normal + romberg NIH Stroke Score: 1A: Level of Consciousness [x] Alert; keenly responsive 0 [] Arouses to minor stimulation +1 [] Requires repeated stimulation to arouse +2 [] Movements to Pain +2 [] Postures or Unresponsive +3 1B: Ask Month and Age [x] Both Questions Right 0 [] 1 Question Right +1 [] 0 Questions Right +2 [] Dysarthric/Intubated/ Trauma/Language Barrier +1 [] Aphasic +2 1C: 'Blink Eyes' & 'Squeeze Hands' [x] Performs Both Tasks 0 [] Performs 1 Task+1 [] Performs 0 Tasks+2 2: Horizontal Extraocular Movements [x] Normal 0 [] Partial Gaze Palsy: Can Be Overcome +1 [] Partial Gaze Palsy: Corrects with Oculocephalic Reflex +1 [] Forced Gaze Palsy: Cannot Be Overcome +2 3: Visual [place] [x] No Visual Loss 0 [] Partial Hemianopia +1 [] Complete Hemianopia +2 [] Patient is Bilaterally Blind +3 [] Bilateral Hemianopia +3 4: Test Facial Palsy (Use Grimace if Obtunded) [x] Normal symmetry 0 [] Minor paralysis (flat nasolabial fold, smile asymetry) +1 [] Partial paralysis (lower face) +2 [] Unilateral Complete paralysis (upper/lower face) +3 [] Bilateral Complete paralysis (upper/lower face) +3 5A: Left Arm Motor [] Amputation/Joint Fusion 0 [x] No Drift for 10 Seconds 0 [] Drift, but doesn't hit bed +1 [] Drift, hits bed +2 [] Some Effort Against [place] +2 [] No Effort Against [place] +3 [] No Movement +4 5B: Right Arm Motor [] Amputation/Joint Fusion 0 [x] No Drift for 10 Seconds 0 [] Drift, but doesn't hit bed +1 [] Drift, hits bed +2 [] Some Effort Against [place] +2 [] No Effort Against [place] +3 [] No Movement +4 6A: Left Leg Motor [] Amputation/Joint Fusion 0 [x] No Drift for 5 Seconds 0 [] Drift, but doesn't hit bed +1 [] Drift, hits bed +2 [] Some Effort Against [place] +2 [] No Effort Against [place] +3 [] No Movement +4 6B: Right Leg Motor [] Amputation/Joint Fusion 0 [x] No Drift for 5 Seconds 0 [] Drift, but doesn't hit bed +1 [] Drift, hits bed +2 [] Some Effort Against [place] +2 [] No Effort Against [place] +3 [] No Movement +4 7: Limb Ataxia [] Amputation/Joint Fusion 0 [] Does Not Understand 0 [] Paralyzed 0 [x] No Ataxia 0 [] Ataxia in 1 Limb +1 [] Ataxia in 2 Limbs +2 8: Sensation [] Normal; No sensory loss 0 [x] Mild-Moderate Loss: Less Sharp/More Dull +1 [] Mild-Moderate Loss: Can Sense Being Touched +1 [] Complete Loss: Cannot Sense Being Touched At All +2 [] No Response and Quadriplegic +2 [] Coma/Unresponsive +2 9: Language/Aphasia [x] Normal; No aphasia 0 [] Mild-Moderate Aphasia: Some Obvious Changes, Without Significant Limitation +1 [] Severe Aphasia: Fragmentary Expression, Inference Needed, Cannot Identify materials +2 [] Mute/Global Aphasia: No Usable Speech/Auditory Comprehension +3 [] Coma/Unresponsive +3 10: Dysarthria [] Intubated/Unable to Test 0 [x] Normal 0 [] Mild-Moderate Dysarthria: Slurring but can be understood +1 [] Severe Dysarthria: Unintelligble Slurring or Out of Proportion to Dysphasia +2 [] Mute/Anarthric +2 11: Extinction/Inattention [x] No abnormality 0 [] Visual/tactile/auditory/spatial /personal inattention +1 [] Extinction to bilateral simultaneous stimulation +1 [] Profound adria-inattention (ex: does not recognize own hand) +2 [] Extinction to >1 modality +2 NIH score is 0. Results Labs: Last 24hrs Recent Results (from the past 24 hours) ECG 12 lead Collection Time: 05/20/25 10:26 PM Result Value Ref Range Heart Rate 64 bpm QRSD Interval 98 ms QT Interval 410 ms QTC Interval 422 ms P Conway 47 degrees QRS Conway 6 degrees T Wave Conway 44 degrees MS Interval 128 ms CBC auto differential Collection Time: 05/21/25 12:07 AM Result Value Ref Range Auto WBC 8.7 3.6 - 10.7 10*3/uL RBC 4.43 4.40 - 5.90 10*6/uL Hemoglobin 13.7 13.0 - 18.0 g/dL Hematocrit 41.1 40.0 - 52.0 % MCV 92.8 77.0 - 99.0 fL MCH 30.9 26.0 - 34.0 pg MCHC 33.3 30.5 - 36.0 % RDW 13.8 11.5 - 15.0 % Platelets 179 140 - 440 10*3/uL MPV 10.6 9.0 - 12.7 fL nRBC 0.0 0.0 - 2.0 /100 WBCs Neutrophils Relative 64.3 38.0 - 82.0 % Lymphocytes Relative 20.8 15.0 - 45.0 % Monocytes Relative 8.7 5.0 - 13.0 % Eosinophils Relative 5.2 0.0 - 6.0 % Basophils Relative 0.5 0.0 - 2.0 % Immature Grans % 0.5 0.0 - 2.0 % Neutrophils Absolute 5.6 1.8 - 7.5 10*3/uL Lymphocytes Absolute 1.8 1.0 - 4.3 10*3/uL Monocytes Absolute 0.8 0.0 - 0.9 10*3/uL Eosinophils Absolute 0.5 0.0 - 0.5 10*3/uL Basophils Absolute 0.0 0.0 - 0.2 10*3/uL Immature Grans Absolute 0.0 <0.1 10*3/uL Comprehensive metabolic panel Collection Time: 05/21/25 12:07 AM Result Value Ref Range SODIUM 142 136 - 145 mmol/L POTASSIUM 4.1 3.5 - 5.1 mmol/L CHLORIDE 111 (H) 98 - 107 mmol/L CARBON DIOXIDE 23 23 - 31 mmol/L ANION GAP 8 3 - 13 mmol/L UREA NITROGEN 17 9 - 23 mg/dL CREATININE 0.89 0.72 - 1.25 mg/dL GLUCOSE 163 (H) 82 - 115 mg/dL CALCIUM 8.7 (L) 8.8 - 10.0 mg/dL AST (SGOT) 25 <34 U/L ALT 18 <40 U/L ALKALINE PHOSPHATASE 66 40 - 150 U/L ALBUMIN 3.5 3.4 - 4.8 g/dL BILIRUBIN, TOTAL 0.4 <1.2 mg/dL TOTAL PROTEIN 6.3 (L) 6.4 - 8.3 g/dL eGFR >90.0 >60.0 mL/min/1.73m*2 Serial Troponin, High Sensitivity Collection Time: 05/21/25 12:07 AM Result Value Ref Range Troponin HS Serial Baseline 5 <=35 ng/L NT PRO BNP Collection Time: 05/21/25 12:07 AM Result Value Ref Range NT PRO BNP 89 <125 pg/mL Troponin, High Sensitivity, Serial, Second Test Collection Time: 05/21/25 2:06 AM Result Value Ref Range 2h Troponin HS (Serial 2nd Troponin) 4 <=35 ng/L Since admission: No results for input(s): CKTOTAL, TROPONINI in the last 72 hours. Recent Labs 05/21/25 0007 ALKPHOS 66 ALT 18 AST 25 BILITOT 0.4 @[facility]) ABGs:)No results for input(s): PH, PO2, PCO2, HCO3, O2SAT in the last 72 hours. No lab exists for component: BE Cultures: Blood culture #1: No lab exists for component: BC Blood culture #2: No lab exists for component: BLOODCULT2 Antiepileptic levels: No results for input(s): PHENYTOIN, PHENOBARB, VALPROATE in the last 72 hours. No lab exists for component: CARBTOT, LAMOTRIG, KEPPRA Coagulation: No results for input(s): INR in the last 72 hours. CSF: No results for input(s): CULTURE, PROTEIN in the last 72 hours. No lab exists for component: CHARCSF, CELL COUNT, GRAM STAIN Stroke Specific: Lipids: No results for input(s): CHOL, TRIG, HDL, AMYLASE, LIPASE in the last 72 hours. No lab exists for component: LDLCHOLESTEROL HgA1c: No lab exists for component: LABA1C Radiology Personal review: CT head 05/21/25- IMPRESSION: 1. No acute intracranial abnormalities. 2. Chronic sinonasal polyposis bilaterally. ASSESSMENT / PLAN / SUGGESTIONS : Dizziness- MRI brain and MRA head/neck ordered Concern for potential dissection given recent neck pain Could be related to sinuses, but positive impulse test, so need to rule out stroke If stroke is suspected, then should implement stroke orders. If imaging is normal, then sinuses likely culprit and he will need to follow up with ENT. 30 minutes of my independent time was spent preparing to see the patient, obtaining/reviewing spearately obtained history, completing appropriate medication examination of the patient, ordering medications/tests/procedures, documenting clinical information on EMR. An additional 10 mins was was spent discussing assessment/plan with Dr. James. Patient seen and discussed with Dr. James [1] Current Facility-Administered Medications: acetaminophen (Tylenol) tablet 650 mg, 650 mg, Oral, q6h PRN OR acetaminophen (Tylenol) suppository 650 mg, 650 mg, Rectal, q6h PRN, Julian Marmolejo MD atorvastatin (Lipitor) tablet 40 mg, 40 mg, Oral, Daily, Julian Marmolejo MD enoxaparin (Lovenox) syringe 40 mg, 40 mg, SubCUTAneous, Daily, Julian Marmolejo MD, 40 mg at 05/21/25 1312 meloxicam (Mobic) tablet 15 mg, 15 mg, Oral, Daily, Julian Marmolejo MD ondansetron ODT (Zofran-ODT) disintegrating tablet 4 mg, 4 mg, Oral, q8h PRN OR ondansetron (Zofran) injection 4 mg, 4 mg, IntraVENous, q6h PRN, Julian Marmolejo MD [2] Cosigned by Zoey James MD at 05/22/2025 2:50 PM EDT Associated attestation - Zoey James MD - 05/22/2025 2:50 PM EDT Neuro Critical Care / stroke Attending Patient date of encounter , Delay attestation secondary to [employer] update ( Separate note for under my BETSEY only ) Patient seen and evaluated with my BETSEY, He reported complaints of dizziness, described as vertigo / light headed, this resembling his complaints few months ago which at the time where thought to be secondary to severe sinusitis , He had the sinusitis treated and symptoms resolved This time the event appeared to have occurred relatively sudently , no other focal or systemic complaints to detail questioning other than fells he is developed some sinusitis again Vitals slight increased BP on and off His exam was significant - BMI 31 % - NO schewed , no nystagmus, question if HIT direction to the right , Other sanches neuro exam was normal for motor, sensory ,coordination and gate Brewer, lung and carotid auscultation was normal . Standing and gait normal - Labs, BMP normal , slight hyperchloremic HDL slight low CBC normal Aic 5.4 MRIs have been obtained since then , we requested them as the examination could not 100 % r/o presence of structural problem of =VB insufficiency Patient 's main risk factor for stroke was BMI, HTN and suspected RODRIGO , as well as prior history of DVT , This where reviewed and considered normal 1. No intracranial large vessel occlusion or significant stenosis. MRA OF THE NECK WITH AND WITHOUT GADOLINIUM CLINICAL INDICATION: Dizziness, persistent/recurrent, cardiac or vascular cause suspected TECHNIQUE: Routine MRA of the neck with and without IV gadolinium. COMPARISON: CTA head and neck, December,. FINDINGS: The bilateral common, internal and external carotid arteries are patent. Mild plaquing in bilateral proximal ICAs, with 50% or less stenosis. Carotid bifurcations have normal contour without significant plaque formation. No occlusion, focal hemodynamically significant stenosis or apparent aneurysm. Vertebral arteries are patent. Left vertebral artery dominant. Left common carotid artery origin from brachiocephalic artery or bovine arch incidentally noted. IMPRESSION: 1. No significant cervical ICA stenosis (50% or less) by NASCET criteria. We also did a CTA because he had a new neck pain while in exertion preceding this symptoms and we where concern for VB dissections MRAs personal review Brain normal and neck with tortuous vessels but not stenotic or dissected Impression - NO stroke or TIA - Peripheral vestibulopathy , - Stroke risks still significant - Obesity - Suspect RODRIGO< Mallampati IV DLP on atorvastatin at home to be continued - Mild dehydration Suggest optimization of hydration Diet and weight loss , Daily 30 min execise If persistent RODRIGO , consider sleep study and treatment , although its likely to improve if he losses weight - I personally interviewed and examined this patient , reviewed , corrected, agreed and attested the note for this patient. I reviewed the chart including MAR, labs, neuroimaging, other imaging studies and discussed my diagnostic impression and patient's plan of care with my BETSEY/resident/ Fellow , student and the consulting team and patient's family members/surrogate decision makers (in cases where the patient is incapacitated and unable to participate in their own care). [x] Encounter Face to Face [x] Consult [x] Time spend [x] 80 [x] Patient was seen on 05/21, time of of the note currently attested , second note 05/22 completed by my BETSEY, who followed up the pateint Thank you Laquita Ding DO for the opportunity to be involved in this patient's care. documented in this encounter [facility] 05-21-2025 History and physical note Attending History and Physical Admit Date: 05/20/2025 PCP: Laquita Ding DO CHIEF COMPLAINT: Dizziness Reason for Admission: Dizziness and headache History Obtained From: patient HISTORY OF PRESENT ILLNESS: Joseph is a 69 y.o. male with past medical history below who presents with chief complaint listed above. 69-year-old male patient who is admitted with the chief complaints of dizziness and that the room moves from laying down on the bed and position changes. She does not report any loss of consciousness but complains of headache in the back of the head. She also has a past medical history of sinus polyps and is scheduled to see ENT for surgery next month. No head trauma Denies any numbness, weakness, or tingling. He does complain of a prickly sensation every 30 to 40 seconds lasting 1 week in the left parietal area. Reports no syncope or palpitations Initial CT of the head was negative and CTA shows less than 30% stenosis in the carotids but CT is also positive for extensive paranasal sinus disease Denies chest pain, sob, abdominal pain, nausea, vomiting, diarrhea, constipation, fevers, or chills. Will admit for further evaluation and management. Past Medical History: Medical History[1] Past Surgical History: Surgical History[2] Social History: Social History Socioeconomic History Marital status: Spouse name: Not on file Number of children: Not on file Years of education: Not on file Highest education level: Not on file Occupational History Not on file Tobacco Use Smoking status: Former Current packs/day: 0.00 Types: Cigarettes Quit date: 10/16/1982 Years since quittin.6 Smokeless tobacco: Former Quit date: 10/16/1981 Substance and Sexual Activity Alcohol use: No Drug use: No Sexual activity: Not on file Other Topics Concern Not on file Social History Narrative Not on file Social Drivers of Health Financial Resource Strain: Not on file Food Insecurity: Not on file Transportation Needs: Not on file Physical Activity: Not on file Stress: Not on file Social Connections: Not on file Intimate Partner Violence: Not on file Housing Stability: Not on file Family History: Family History[3] Medications Prior to Admission: Current Medications[4] Allergies: Allergies[5] REVIEW OF SYSTEMS: Constitutional: Negative for fever, chills, positive for activity change HEENT: Positive for sinus congestion eyes: Negative for itching and visual disturbance. Respiratory: Negative for apnea, cough, choking, chest tightness, shortness of breath, wheezing and stridor. Cardiovascular: Negative for chest pain. Gastrointestinal: Negative for vomiting, abdominal pain, diarrhea and blood in stool. Positive for nausea Genitourinary: Negative for dysuria, frequency and flank pain. Musculoskeletal: Negative for myalgias and joint swelling. Skin: Negative for rash. Neurological: Negative for tremors, seizures, syncope, facial asymmetry, speech difficulty, weakness, numbness , positive for headache and dizziness Vitals: BP 130/77 (BP Location: Right arm, Patient Position: Sitting) Pulse 64 Temp (!) 35.9 C (96.6 F) (Temporal) Resp 18 Ht 6' (1.829 m) Wt 235 lb (107 kg) SpO2 99% BMI 31.87 kg/m BMI Classification: Morbidly Obese (>40.0) Pulse Ox: SpO2 Av.5 % Min: 97 % Max: 99 % Supplemental O2: PHYSICAL EXAM: General appearance: . Awake alert oriented x 3 appears pleasant and cooperative HEENT: Extraocular muscles are intact and pupils are reacting to light and no nystagmus Neck: Good range of motion and no neck stiffness Respiratory: Diminished breath sounds bilaterally no wheezing or rhonchi Cardiovascular: . S1-S2, no murmurs gallops or rubs Abdomen: Positive bowel sounds, soft nontender Musculoskeletal: Good range of motion, no edema no calf tenderness Skin: No rash or lesions Neurologic: Awake alert oriented x 3, no speech disturbance NIHSS 1a Level of consciousness: 0=alert; keenly responsive 1b. LOC questions: 0=Performs both tasks correctly 1c. LOC commands: 0=Performs both tasks correctly 2. Best Gaze: 0=normal 3. Visual: 0=No visual loss 4. Facial Palsy: 0=Normal symmetric movement 5a. Motor left arm: 0=No drift, limb holds 90 (or 45) degrees for full 10 seconds 5b. Motor right arm: 0=No drift, limb holds 90 (or 45) degrees for full 10 seconds 6a. motor left le=No drift, limb holds 90 (or 45) degrees for full 10 seconds 6b Motor right le=No drift, limb holds 90 (or 45) degrees for full 10 seconds 7. Limb Ataxia: 0=Absent 8. Sensory: 0=Normal; no sensory loss 9. Best Language: 0=No aphasia, normal 10. Dysarthria: 0=Normal 11. Extinction and Inattention: 0=No abnormality 12. Distal motor function: 0=Normal Total: 0 Psychiatric: DATA: CBC: Recent Labs 05/21/25 0007 WBC 8.7 RBC 4.43 HGB 13.7 HCT 41.1 MCV 92.8 RDW 13.8 PLT 179 BMP: Recent Labs 05/21/25 0007 NA 142 K 4.1 CL 111* CO2 23 BUN 17 CREATININE 0.89 GLUCOSE 163* CALCIUM 8.7* ANIONGAP 8 LIVER PROFILE: Recent Labs 05/21/25 0007 AST 25 ALT 18 BILITOT 0.4 ALKPHOS 66 PROT 6.3* PT/INR: No results for input(s): PROTIME, INR in the last 72 hours. CARDIAC ENZYMES: No results for input(s): TROPONINI in the last 72 hours. Procalcitonin: No results found for: PROCAL Urine Culture: No results found for this or any previous visit. COVID-19 PCR: No results for input(s): COVID19 in the last 72 hours. I reviewed: [x] laboratory results [x] radiographic results At the time of today's encounter. Pt was advised of the results. IMPRESSION: Dizziness with differential including central versus peripheral vertigo-MRI and MRA of the head and neck ordered Chronic paranasal sinusitis with deviated nasal septum Recent sharp neck pains Hyperlipidemia-on atorvastatin Medical Decision Making: - 69-year-old male patient admitted with acute onset of dizziness CT of the head and CTA of the head reviewed Discussed with ER physician and agree with inpatient admission to rule out stroke Neurology consult, MRI of the brain and MRI of the brain -PT/OT eval/increase activity -am labs, replace lytes prn -vitals per routine -home meds as ordered -DVT prophylaxis: [x] Lovenox [] Heparin [] SCDs [x] Encourage ambulation [] Already on Anticoagulation Anticipated Discharge - Date -05/22/2025 - Location - Home - Pending the following -neurological clearance and MRI imaging Total time spent (which include face to face and non face to face encounters) : 45 minutes Toxic drug monitoring/narrow therapeutic index drug monitoring : # Drug name : Lovenox # Route administered : Subcutaneous # Method of monitoring : Daily labs with CBC Extended Emergency Contact Information Primary Emergency Contact: Katja Brown Relation: Spouse Secondary Emergency Contact: Divya Sweeney Relation: Child Code status: Full Code -see below for additional orders, further recommendations to follow Orders Placed This Encounter Procedures CT head wo IV contrast XR chest 1 view MR brain wo contrast MR neck angio w and wo IV contrast MR head angio wo IV contrast CBC auto differential Comprehensive metabolic panel Serial Troponin, High Sensitivity NT PRO BNP Troponin, High Sensitivity, Serial, Second Test Adult diet Regular Vital Signs Notify patient's primary care provider of admission Activity No Restrictions Vital Signs Full code Inpatient consult to Neurology--[facility]; dizziness OT eval and treat PT eval and treat Initiate Oxygen Therapy Protocol ECG 12 lead Admit to inpatient Please forward a copy of this H&P to the patient's PCP. Thank you. [facility] Joseph Brown : 1955 Primary Care Physician: Laquita Ding DO The patient and/or family/surrogate voluntarily agreed to participate in ACP services. Patient s cognitive capacity: Awake alert oriented times 3 Code Status: [x] [FULL CODE - Continue all advanced life support: CPR,intubation,invasive procedures] [_] [DNR-CCA - DO NOT do CPR, intubation] [_] [DNR-VENEER DEPARTMENT MANAGER - Comfort care only] [_] DNR form [was/was not] signed Summary of discussion: The patient health care POA/ surrogate is the following: Self. [Condition that instigated the ACP on this DOS, relevant PMH, functional status, goals of care, and whom this was discussed with including names and relationship to the patient, and any relevant advance care documentation discussion] I answered all the patient/family questions that I could within the range and scope of the current medical situation. We discussed the medical conditions, risks, benefits, outcomes, and goals of care at this time for the patient's medical issues at hand in the face of the patient's chronic issues and current presentation. Total time spent: 5 minutes were spent discussing the patient's resuscitation status, advance care planning, and end of life care, with patient and/or family/surrogate. José Antonio Woodruff MD Acute care [facility] 05/21/2025, 9:12 PM [1] Past Medical History: Diagnosis Date Arthritis SVT (supraventricular tachycardia) (HCC) Syncope [2] Past Surgical History: Procedure Laterality Date AMPUTATION fingers CHOLECYSTECTOMY [3] Family History Problem Relation Name Age of Onset Coronary artery disease Mother Emphysema Father COPD Mother COPD Brother COPD Father Heart failure Mother CHF Diabetes Brother [4] Current Facility-Administered Medications: acetaminophen (Tylenol) tablet 650 mg, 650 mg, Oral, q6h PRN OR acetaminophen (Tylenol) suppository 650 mg, 650 mg, Rectal, q6h PRN, Julian Marmolejo MD atorvastatin (Lipitor) tablet 40 mg, 40 mg, Oral, Daily, Julian Marmolejo MD enoxaparin (Lovenox) syringe 40 mg, 40 mg, SubCUTAneous, Daily, Julian Marmolejo MD meloxicam (Mobic) tablet 15 mg, 15 mg, Oral, Daily, Julian Marmolejo MD ondansetron ODT (Zofran-ODT) disintegrating tablet 4 mg, 4 mg, Oral, q8h PRN OR ondansetron (Zofran) injection 4 mg, 4 mg, IntraVENous, q6h PRN, Julian Marmolejo MD [5] No Known Allergies [facility] 05-21-2025 Note Attending History an d Physical Admit Date: 05/20/2025 PCP: Laquita Ding DO CHIEF COMPLAINT: Dizziness Reason for Admission: Dizziness and headache History Obtained From: patient HISTORY OF PRESENT ILLNESS: Joseph is a 69 y.o. male with past medical history below who presents with chief complaint listed above. 69-year-old male patient who is admitted with the chief complaints of dizziness and that the room moves from laying down on the bed and position changes. She does not report any loss of consciousness but complains of headache in the back of the head. She also has a past medical history of sinus polyps and is scheduled to see ENT for surgery next month. No head trauma Denies any numbness, weakness, or tingling. He does complain of a prickly sensation every 30 to 40 seconds lasting 1 week in the left parietal area. Reports no syncope or palpitations Initial CT of the head was negative and CTA shows less than 30% stenosis in the carotids but CT is also positive for extensive paranasal sinus disease Denies chest pain, sob, abdominal pain, nausea, vomiting, diarrhea, constipation, fevers, or chills. Will admit for further evaluation and management. Past Medical History: Medical History[1] Past Surgical History: Surgical History[2] Social History: Social History Socioeconomic History Marital status: Spouse name: Not on file Number of children: Not on file Years of education: Not on file Highest education level: Not on file Occupational History Not on file Tobacco Use Smoking status: Former Current packs/day: 0.00 Types: Cigarettes Quit date: 10/16/1982 Years since quittin.6 Smokeless tobacco: Former Quit date: 10/16/1981 Substance and Sexual Activity Alcohol use: No Drug use: No Sexual activity: Not on file Other Topics Concern Not on file Social History Narrative Not on file Social Drivers of Health Financial Resource Strain: Not on file Food Insecurity: Not on file Transportation Needs: Not on file Physical Activity: Not on file Stress: Not on file Social Connections: Not on file Intimate Partner Violence: Not on file Housing Stability: Not on file Family History: Family History[3] Medications Prior to Admission: Current Medications[4] Allergies: Allergies[5] REVIEW OF SYSTEMS: Constitutional: Negative for fever, chills, positive for activity change HEENT: Positive for sinus congestion eyes: Negative for itching and visual disturbance. Respiratory: Negative for apnea, cough, choking, chest tightness, shortness of breath, wheezing and stridor. Cardiovascular: Negative for chest pain. Gastrointestinal: Negative for vomiting, abdominal pain, diarrhea and blood in stool. Positive for nausea Genitourinary: Negative for dysuria, frequency and flank pain. Musculoskeletal: Negative for myalgias and joint swelling. Skin: Negative for rash. Neurological: Negative for tremors, seizures, syncope, facial asymmetry, speech difficulty, weakness, numbness , positive for headache and dizziness Vitals: BP 130/77 (BP Location: Right arm, Patient Position: Sitting) Pulse 64 Temp (!) 35.9 ?C (96.6 ?F) (Temporal) Resp 18 Ht 6' (1.829 m) Wt 235 lb (107 kg) SpO2 99% BMI 31.87 kg/m? BMI Classification: Morbidly Obese (>40.0) Pulse Ox: SpO2 Av.5 % Min: 97 % Max: 99 % Supplemental O2: PHYSICAL EXAM: General appearance: . Awake alert oriented x 3 appears pleasant and cooperative HEENT: Extraocular muscles are intact and pupils are reacting to light and no nystagmus Neck: Good range of motion and no neck stiffness Respiratory: Diminished breath sounds bilaterally no wheezing or rhonchi Cardiovascular: . S1-S2, no murmurs gallops or rubs Abdomen: Positive bowel sounds, soft nontender Musculoskeletal: Good range of motion, no edema no calf tenderness Skin: No rash or lesions Neurologic: Awake alert oriented x 3, no speech disturbance NIHSS 1a Level of consciousness: 0=alert; keenly responsive 1b. LOC questions: 0=Performs both tasks correctly 1c. LOC commands: 0=Performs both tasks correctly 2. Best Gaze: 0=normal 3. Visual: 0=No visual loss 4. Facial Palsy: 0=Normal symmetric movement 5a. Motor left arm: 0=No drift, limb holds 90 (or 45) degrees for full 10 seconds 5b. Motor right arm: 0=No drift, limb holds 90 (or 45) degrees for full 10 seconds 6a. motor left le=No drift, limb holds 90 (or 45) degrees for full 10 seconds 6b Motor right le=No drift, limb holds 90 (or 45) degrees for full 10 seconds 7. Limb Ataxia: 0=Absent 8. Sensory: 0=Normal; no sensory loss 9. Best Language: 0=No aphasia, normal 10. Dysarthria: 0=Normal 11. Extinction and Inattention: 0=No abnormality 12. Distal motor function: 0=Normal Total: 0 Psychiatric: DATA: CBC: Recent Labs 05/21/25 0007 WBC 8.7 RBC 4.43 HGB 13.7 HCT 41.1 MCV 92.8 RDW 13.8 PLT 179 BMP: Rece (more content not included)... [facility] 05-21-2025 History and physical note Attending History and Physical Admit Date: 05/20/2025 PCP: Laquita Ding DO CHIEF COMPLAINT: Dizziness Reason for Admission: Dizziness and headache History Obtained From: patient HISTORY OF PRESENT ILLNESS: Joseph is a 69 y.o. male with past medical history below who presents with chief complaint listed above. 69-year-old male patient who is admitted with the chief complaints of dizziness and that the room moves from laying down on the bed and position changes. She does not report any loss of consciousness but complains of headache in the back of the head. She also has a past medical history of sinus polyps and is scheduled to see ENT for surgery next month. No head trauma Denies any numbness, weakness, or tingling. He does complain of a prickly sensation every 30 to 40 seconds lasting 1 week in the left parietal area. Reports no syncope or palpitations Initial CT of the head was negative and CTA shows less than 30% stenosis in the carotids but CT is also positive for extensive paranasal sinus disease Denies chest pain, sob, abdominal pain, nausea, vomiting, diarrhea, constipation, fevers, or chills. Will admit for further evaluation and management. Past Medical History: Medical History[1] Past Surgical History: Surgical History[2] Social History: Social History Socioeconomic History Marital status: Spouse name: Not on file Number of children: Not on file Years of education: Not on file Highest education level: Not on file Occupational History Not on file Tobacco Use Smoking status: Former Current packs/day: 0.00 Types: Cigarettes Quit date: 10/16/1982 Years since quittin.6 Smokeless tobacco: Former Quit date: 10/16/1981 Substance and Sexual Activity Alcohol use: No Drug use: No Sexual activity: Not on file Other Topics Concern Not on file Social History Narrative Not on file Social Drivers of Health Financial Resource Strain: Not on file Food Insecurity: Not on file Transportation Needs: Not on file Physical Activity: Not on file Stress: Not on file Social Connections: Not on file Intimate Partner Violence: Not on file Housing Stability: Not on file Family History: Family History[3] Medications Prior to Admission: Current Medications[4] Allergies: Allergies[5] REVIEW OF SYSTEMS: Constitutional: Negative for fever, chills, positive for activity change HEENT: Positive for sinus congestion eyes: Negative for itching and visual disturbance. Respiratory: Negative for apnea, cough, choking, chest tightness, shortness of breath, wheezing and stridor. Cardiovascular: Negative for chest pain. Gastrointestinal: Negative for vomiting, abdominal pain, diarrhea and blood in stool. Positive for nausea Genitourinary: Negative for dysuria, frequency and flank pain. Musculoskeletal: Negative for myalgias and joint swelling. Skin: Negative for rash. Neurological: Negative for tremors, seizures, syncope, facial asymmetry, speech difficulty, weakness, numbness , positive for headache and dizziness Vitals: BP 130/77 (BP Location: Right arm, Patient Position: Sitting) Pulse 64 Temp (!) 35.9 C (96.6 F) (Temporal) Resp 18 Ht 6' (1.829 m) Wt 235 lb (107 kg) SpO2 99% BMI 31.87 kg/m BMI Classification: Morbidly Obese (>40.0) Pulse Ox: SpO2 Av.5 % Min: 97 % Max: 99 % Supplemental O2: PHYSICAL EXAM: General appearance: . Awake alert oriented x 3 appears pleasant and cooperative HEENT: Extraocular muscles are intact and pupils are reacting to light and no nystagmus Neck: Good range of motion and no neck stiffness Respiratory: Diminished breath sounds bilaterally no wheezing or rhonchi Cardiovascular: . S1-S2, no murmurs gallops or rubs Abdomen: Positive bowel sounds, soft nontender Musculoskeletal: Good range of motion, no edema no calf tenderness Skin: No rash or lesions Neurologic: Awake alert oriented x 3, no speech disturbance NIHSS 1a Level of consciousness: 0=alert; keenly responsive 1b. LOC questions: 0=Performs both tasks correctly 1c. LOC commands: 0=Performs both tasks correctly 2. Best Gaze: 0=normal 3. Visual: 0=No visual loss 4. Facial Palsy: 0=Normal symmetric movement 5a. Motor left arm: 0=No drift, limb holds 90 (or 45) degrees for full 10 seconds 5b. Motor right arm: 0=No drift, limb holds 90 (or 45) degrees for full 10 seconds 6a. motor left le=No drift, limb holds 90 (or 45) degrees for full 10 seconds 6b Motor right le=No drift, limb holds 90 (or 45) degrees for full 10 seconds 7. Limb Ataxia: 0=Absent 8. Sensory: 0=Normal; no sensory loss 9. Best Language: 0=No aphasia, normal 10. Dysarthria: 0=Normal 11. Extinction and Inattention: 0=No abnormality 12. Distal motor function: 0=Normal Total: 0 Psychiatric: DATA: CBC: Recent Labs 05/21/256 WBC 8.7 RBC 4.43 HGB 13.7 HCT 41.1 MCV 92.8 RDW 13.8 PLT 179 BMP: Recent Labs 05/21/256 NA 142 K 4.1 CL 111* CO2 23 BUN 17 CREATININE 0.89 GLUCOSE 163* CALCIUM 8.7* ANIONGAP 8 LIVER PROFILE: Recent Labs 05/21/256 AST 25 ALT 18 BILITOT 0.4 ALKPHOS 66 PROT 6.3* PT/INR: No results for input(s): PROTIME, INR in the last 72 hours. CARDIAC ENZYMES: No results for input(s): TROPONINI in the last 72 hours. Procalcitonin: No results found for: PROCAL Urine Culture: No results found for this or any previous visit. COVID-19 PCR: No results for input(s): COVID19 in the last 72 hours. I reviewed: [x] laboratory results [x] radiographic results At the time of today's encounter. Pt was advised of the results. IMPRESSION: Dizziness with differential including central versus peripheral vertigo-MRI and MRA of the head and neck ordered Chronic paranasal sinusitis with deviated nasal septum Recent sharp neck pains Hyperlipidemia-on atorvastatin Medical Decision Making: - 69-year-old male patient admitted with acute onset of dizziness CT of the head and CTA of the head reviewed Discussed with ER physician and agree with inpatient admission to rule out stroke Neurology consult, MRI of the brain and MRI of the brain -PT/OT eval/increase activity -am labs, replace lytes prn -vitals per routine -home meds as ordered -DVT prophylaxis: [x] Lovenox [] Heparin [] SCDs [x] Encourage ambulation [] Already on Anticoagulation Anticipated Discharge - Date -05/22/2025 - Location - Home - Pending the following -neurological clearance and MRI imaging Total time spent (which include face to face and non face to face encounters) : 45 minutes Toxic drug monitoring/narrow therapeutic index drug monitoring : # Drug name : Lovenox # Route administered : Subcutaneous # Method of monitoring : Daily labs with CBC Extended Emergency Contact Information Primary Emergency Contact: Katja Brown Relation: Spouse Secondary Emergency Contact: Divya Sweeney Relation: Child Code status: Full Code -see below for additional orders, further recommendations to follow Orders Placed This Encounter Procedures CT head wo IV contrast XR chest 1 view MR brain wo contrast MR neck angio w and wo IV contrast MR head angio wo IV contrast CBC auto differential Comprehensive metabolic panel Serial Troponin, High Sensitivity NT PRO BNP Troponin, High Sensitivity, Serial, Second Test Adult diet Regular Vital Signs Notify patient's primary care provider of admission Activity No Restrictions Vital Signs Full code Inpatient consult to Neurology--[facility]; dizziness OT eval and treat PT eval and treat Initiate Oxygen Therapy Protocol ECG 12 lead Admit to inpatient Please forward a copy of this H&P to the patient's PCP. Thank you. [facility] Joseph Brown : 1955 Primary Care Physician: Laquita Ding, The patient and/or family/surrogate voluntarily agreed to participate in ACP services. Patient s cognitive capacity: Awake alert oriented times 3 Code Status: [x] [FULL CODE - Continue all advanced life support: CPR,intubation,invasive procedures] [_] [DNR-CCA - DO NOT do CPR, intubation] [_] [DNR-VENEER DEPARTMENT MANAGER - Comfort care only] [_] DNR form [was/was not] signed Summary of discussion: The patient health care POA/ surrogate is the following: Self. [Condition that instigated the ACP on this DOS, relevant PMH, functional status, goals of care, and whom this was discussed with including names and relationship to the patient, and any relevant advance care documentation discussion] I answered all the patient/family questions that I could within the range and scope of the current medical situation. We discussed the medical conditions, risks, benefits, outcomes, and goals of care at this time for the patient's medical issues at hand in the face of the patient's chronic issues and current presentation. Total time spent: 5 minutes were spent discussing the patient's resuscitation status, advance care planning, and end of life care, with patient and/or family/surrogate. José Antonio Woodruff MD Acute care [facility] 05/21/2025, 9:12 PM [1] Past Medical History: Diagnosis Date Arthritis SVT (supraventricular tachycardia) (HCC) Syncope [2] Past Surgical History: Procedure Laterality Date AMPUTATION fingers CHOLECYSTECTOMY [3] Family History Problem Relation Name Age of Onset Coronary artery disease Mother Emphysema Father COPD Mother COPD Brother COPD Father Heart failure Mother CHF Diabetes Brother [4] Current Facility-Administered Medications: acetaminophen (Tylenol) tablet 650 mg, 650 mg, Oral, q6h PRN OR acetaminophen (Tylenol) suppository 650 mg, 650 mg, Rectal, q6h PRN, Julian Marmolejo MD atorvastatin (Lipitor) tablet 40 mg, 40 mg, Oral, Daily, Julian Marmolejo MD enoxaparin (Lovenox) syringe 40 mg, 40 mg, SubCUTAneous, Daily, Julian Marmolejo MD meloxicam (Mobic) tablet 15 mg, 15 mg, Oral, Daily, Julian Marmolejo MD ondansetron ODT (Zofran-ODT) disintegrating tablet 4 mg, 4 mg, Oral, q8h PRN OR ondansetron (Zofran) injection 4 mg, 4 mg, IntraVENous, q6h PRN, Julian Marmolejo MD [5] No Known Allergies documented in this encounter [facility] 05-21-2025 Note PHYSICAL THERAPY [facility] Initial Evaluation Name/MRN: Joseph Brown ([id number]) Evaluation Date: 05/21/2025 Date of : 1955 Admission Date: 05/20/2025 11:16 PM Age: 69 y.o. Room[facility]Bed: [facility] A Discharge Recommendation: Home independently Equipment Needed: No Assessment IMPRESSION: Pt admitted to ED on 05/21/2025 with dizziness. Prior to admission, pt lived with and performed mobility Independently . Upon eval, pt required no assistance for bed mobility, he was independent for transfers, independent for gait/ambulation with no assistive device used. Pt would benefit from skilled PT services in order to increase safety and independence in functional mobility and daily tasks. Recommend home independently upon DC. Admitting Diagnosis: dizziness Prognosis: excellent Performance Deficits /Impairments: N/A Decision Making: Low Complexity Subjective Pt in bed agreeable to PT Per RN pt okay for therapy. Pain: Pt denies any current pain. Past Medical History: Medical History[1] Past Surgical History: Surgical History[2] Admission Diagnosis: Patient Active Problem List Diagnosis Date Noted Dizziness 05/21/2025 Class 1 obesity due to excess calories without serious comorbidity with body mass index (BMI) of 30.0 to 30.9 in adult 09/22/2021 Chronic low back pain without sciatica 09/22/2021 History of DVT (deep vein thrombosis) 09/22/2021 Chronic respiratory failure with hypoxia (HCC) 11/24/2020 Acute deep vein thrombosis (DVT) of both lower extremities (HCC) 11/04/2020 Essential hypertension 11/04/2020 Pneumonia due to COVID-19 virus 11/04/2020 BPH without obstruction/lower urinary tract symptoms 11/04/2020 SVT (supraventricular tachycardia) ([facility]) 11/04/2020 ARDS (adult respiratory distress syndrome) ([facility]) 10/24/2020 Syncope 09/12/2017 Epididymal cyst 01/25/2017 Medical Precautions: No active isolations Proper PPE donned/doffed in accordance with facility standards. Fall Risk: (Low Risk) Precautions/Restrictions: N/A Family/Caregiver Present: none Overall Cognitive Status: WFL Overall Orientation Status: Oriented x4 Vision: wears glasses at all times and and are being used during the eval Hearing: normal Social/Functional History Patient admitted from home. 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 Slight dizziness noted, but resolved within 15 seconds. Transfers Sit to stand: Independent Stand to sit: Independent Pt was able to complete a STS transfer Independently at this time. Slight dizziness upon standing, but again resolved within a couple seconds. Ambulation Ambulation 1 Assistive device(s) used: None Assist level: Independent Distance (ft): 250 feet Quality of gait: No gait deviations Pt was able to ambulate about 250 feet independently at this time. No LOB noted. No SOB or dizziness reported. Pt perfromed tasks safely. Stairs Pt was able to ascend and descend 6 steps Independently with a reciprocal pattern seen. Outcome Measures AM-PAC How much HELP from another person do you currently need Turning from your back to your side while in a flat bed without using bedrails?: None Moving from lying on your back to sitting on the side of a flat bed without using bedrails?: None Moving to and from a bed to a chair (including a wheelchair)?: None Standing up from a chair using your arms (wheelchair or bedside chair)?: None Walking in a hospital room?: None Stair climbing assessed?: Yes Climbing 3-5 steps with a railing?+: None AM-PAC Inpatient Mobility Raw Score : 24 AM-PAC Inpatient Mobility Raw Score (No Stairs) : 20 JH-HLM JH-HLM Score: Walked 250 ft or more (i.e. several laps on unit) Plan No skilled acute PT indicated at this time. Please reconsult should changes occur. Safety/Education Safety Safety Devices in place: All fall risk precautions in place and gait belt Restraints: No Education Education Given To: patient Education Provided: PT Role, PT Goals, Discharge Recommendations, and Benefits of Increasing Activity (more content not included)... [facility] 05-20-2025 Emergency department Note EMERGENCY DEPARTMENT ENCOUNTER Pt Name: Joseph Brown Birthdate 1955 Date of evaluation: 05/20/2025 ED Provider: Jacoby Sanders DO CHIEF COMPLAINT Chief Complaint Patient presents with Headache X 2 weeks. Also endorses nausea and dizziness. Took tylenol at home with relief. HISTORY OF PRESENT ILLNESS (Location/Symptom, Timing/Onset, Context/Setting, Quality, Duration, Modifying Factors, Severity) Note limiting factors. I wore appropriate PPE for the entirety of this encounter. HPI Joseph Brown is a 69 y.o. who presents to the emergency department for evaluation of dizziness. Sometimes ongoing greater than 24 hours. He is having some associated nausea. He states he has been having left posterior headache describing it as a sharp stabbing pain that comes on every 30 seconds but improves with Tylenol. This headache has been there for 2 weeks. He denies any fevers or chills. No neck stiffness. No vomiting or diarrhea. He had similar symptoms with his dizziness few months back. He states that currently sitting upright he is asymptomatic when he lays flat everything comes on or when he stands up describing it as a room spinning sensation. He denies any numbness or weakness in the extremities. No slurred speech or vision changes. Nursing Notes were reviewed. Limitations to history: None Outside historians: None REVIEW OF SYSTEMS Review of Systems Pertinent positives and negatives as per HPI PAST MEDICAL HISTORY Medical History[1] SURGICAL HISTORY Surgical History[2] CURRENT MEDICATIONS Previous Medications ATORVASTATIN (LIPITOR) 10 MG TABLET Take 10 mg by mouth daily. MELOXICAM (MOBIC) 15 MG TABLET Take 1 tablet by mouth daily. ALLERGIES Patient has no known allergies. FAMILY HISTORY Family History[3] SOCIAL HISTORY Social History[4] PHYSICAL EXAM ED Triage Vitals [05/20/25 2220] Temp Heart Rate Resp BP 37.1 C (98.7 F) 68 20 137/80 SpO2 Temp Source Heart Rate Source Patient Position 99 % Temporal Monitor -- BP Location FiO2 (%) -- -- Physical Exam Vitals and nursing note reviewed. Constitutional: General: He is not in acute distress. Appearance: He is well-developed. HENT: Head: Normocephalic and atraumatic. Eyes: Conjunctiva/sclera: Conjunctivae normal. Cardiovascular: Rate and Rhythm: Normal rate and regular rhythm. Heart sounds: No murmur heard. Pulmonary: Effort: Pulmonary effort is normal. No respiratory distress. Breath sounds: Normal breath sounds. Abdominal: Palpations: Abdomen is soft. Tenderness: There is no abdominal tenderness. Musculoskeletal: General: No swelling. Cervical back: Neck supple. Skin: General: Skin is warm and dry. Capillary Refill: Capillary refill takes less than 2 seconds. Neurological: Mental Status: He is alert. Comments: NIH 0. No focal deficits. Moving all extremities. No ataxia. Finger-nose heel sexton normal bilaterally. Sensation and strength intact throughout. GCS 15. No slurred speech or difficulty getting words out. Psychiatric: Mood and Affect: Mood normal. DIAGNOSTIC RESULTS RADIOLOGY (Per Emergency Physician): Interpretation per the Radiologist below, if available at the time of this note: CT head wo IV contrast Final Result 1. No acute intracranial abnormalities. 2. Chronic sinonasal polyposis bilaterally. Report Dictated on Electronically Signed By: Avinash Miguel MD Electronically Signed Date/Time: 05/21/2025 1:00 AM EDT XR chest 1 view Final Result 1. Hypoinflation. 2. No other acute findings. Report Dictated on Electronically Signed By: Yasmani Briscoe MD Electronically Signed Date/Time: 05/20/2025 11:56 PM EDT LABS: Labs Reviewed COMPREHENSIVE METABOLIC PANEL - Abnormal Result Value SODIUM 142 POTASSIUM 4.1 CHLORIDE 111 (*) CARBON DIOXIDE 23 ANION GAP 8 UREA NITROGEN 17 CREATININE 0.89 GLUCOSE 163 (*) CALCIUM 8.7 (*) AST (SGOT) 25 ALT 18 ALKALINE PHOSPHATASE 66 ALBUMIN 3.5 BILIRUBIN, TOTAL 0.4 TOTAL PROTEIN 6.3 (*) eGFR >90.0 CBC WITH AUTO DIFFERENTIAL - Normal Auto WBC 8.7 RBC 4.43 Hemoglobin 13.7 Hematocrit 41.1 MCV 92.8 MCH 30.9 MCHC 33.3 RDW 13.8 Platelets 179 MPV 10.6 nRBC 0.0 Neutrophils Relative 64.3 Lymphocytes Relative 20.8 Monocytes Relative 8.7 Eosinophils Relative 5.2 Basophils Relative 0.5 Immature Grans % 0.5 Neutrophils Absolute 5.6 Lymphocytes Absolute 1.8 Monocytes Absolute 0.8 Eosinophils Absolute 0.5 Basophils Absolute 0.0 Immature Grans Absolute 0.0 HIGH SENSITIVITY TROPONIN, SERIAL BASELINE - Normal Troponin HS Serial Baseline 5 NT PRO BNP - Normal NT PRO BNP 89 HIGH SENSITIVITY TROPONIN, SERIAL, SECOND TEST - Normal 2h Troponin HS (Serial 2nd Troponin) 4 All other labs were within normal range or not returned as of this dictation. EMERGENCY DEPARTMENT COURSE and DIFFERENTIAL DIAGNOSIS/MDM: Vitals: Vitals: 05/20/25 2220 05/21/25 0206 05/21/25 0209 BP: 137/80 119/74 BP Location: Left arm Patient Position: Lying Pulse: 68 61 Resp: 20 16 Temp: 37.1 C (98.7 F) 36.1 C (97 F) TempSrc: Temporal Temporal SpO2: 99% 97% Weight: 107 kg (235 lb) Height: 1.829 m (6') Medications diazePAM (Valium) tablet 5 mg (5 mg Oral Given 05/21/257) ondansetron (Zofran) injection 4 mg (4 mg IntraVENous Given 05/21/257) diphenhydrAMINE (BENADryl) injection 25 mg (25 mg IntraVENous Given 05/21/25122) SCREENINGS Kermit Coma Scale Best Eye Response: Spontaneous Best Verbal Response: Oriented Best Motor Response: Follows commands Brawley Coma Scale Score: 15 Patient in for evaluation of dizziness. Started over 24 hours ago. He states it all reproduces with laying flat or standing up. At rest and when he keeps his head straight he has no symptoms. His exam is reassuring his NIH score is 0. He has no focal deficits. He has no weakness or slurred speech or sensory changes. His labs are reassuring as well electrolytes were within normal limits. His troponin was 5, his EKG showed no STEMI. His chest x-ray was clear his CT head was negative as well. I believe this is all secondary to peripheral vertigo at this time. He exhibits no truncal ataxia. He tried meclizine prior to arrival and then he was given a dose of Valium here. I attempted to ambulate him and he is unsteady, I do not believe he is safe to go home at this time. I spoke with patient and and they are agreeable for admission. I consulted hospitalist Dr. Marmolejo for admit PROCEDURES: Unless otherwise noted below, none Procedures FINAL IMPRESSION 1. Dizziness DISPOSITION Admit 05/21/2025 05:28:36 AM PATIENT REFERRED TO: No follow-up provider specified. DISCHARGE MEDICATIONS: New Prescriptions No medications on file (Comment: Please note this report has been produced using speech recognition software and may contain errors related to that system including errors in grammar, punctuation, and spelling, as well as words and phrases that may be inappropriate. If there are any questions or concerns please feel free to contact the dictating provider for clarification.) Jacoby Sanders DO (electronically signed) Emergency Medicine Provider [1] Past Medical History: Diagnosis Date Arthritis SVT (supraventricular tachycardia) (HCC) Syncope [2] Past Surgical History: Procedure Laterality Date AMPUTATION fingers CHOLECYSTECTOMY [3] Family History Problem Relation Name Age of Onset Coronary artery disease Mother Emphysema Father COPD Mother COPD Brother COPD Father Heart failure Mother CHF Diabetes Brother [4] Social History Socioeconomic History Marital status: Tobacco Use Smoking status: Former Current packs/day: 0.00 Types: Cigarettes Quit date: 10/16/1982 Years since quittin.6 Smokeless tobacco: Former Quit date: 10/16/1981 Substance and Sexual Activity Alcohol use: No Drug use: No Jacoby Sanders DO 05/21/25 0503 documented in this encounter [facility] 05-20-2025 Physician Emergen cy department Note EMERGENCY DEPARTMENT ENCOUNTER Pt Name: Joseph Brown Birthdate 1955 Date of evaluation: 05/20/2025 ED Provider: Jacoby Sanders DO CHIEF COMPLAINT Chief Complaint Patient presents with Headache X 2 weeks. Also endorses nausea and dizziness. Took tylenol at home with relief. HISTORY OF PRESENT ILLNESS (Location/Symptom, Timing/Onset, Context/Setting, Quality, Duration, Modifying Factors, Severity) Note limiting factors. I wore appropriate PPE for the entirety of this encounter. HPI Joseph Brown is a 69 y.o. who presents to the emergency department for evaluation of dizziness. Sometimes ongoing greater than 24 hours. He is having some associated nausea. He states he has been having left posterior headache describing it as a sharp stabbing pain that comes on every 30 seconds but improves with Tylenol. This headache has been there for 2 weeks. He denies any fevers or chills. No neck stiffness. No vomiting or diarrhea. He had similar symptoms with his dizziness few months back. He states that currently sitting upright he is asymptomatic when he lays flat everything comes on or when he stands up describing it as a room spinning sensation. He denies any numbness or weakness in the extremities. No slurred speech or vision changes. Nursing Notes were reviewed. Limitations to history: None Outside historians: None REVIEW OF SYSTEMS Review of Systems Pertinent positives and negatives as per HPI PAST MEDICAL HISTORY Medical History[1] SURGICAL HISTORY Surgical History[2] CURRENT MEDICATIONS Previous Medications ATORVASTATIN (LIPITOR) 10 MG TABLET Take 10 mg by mouth daily. MELOXICAM (MOBIC) 15 MG TABLET Take 1 tablet by mouth daily. ALLERGIES Patient has no known allergies. FAMILY HISTORY Family History[3] SOCIAL HISTORY Social History[4] PHYSICAL EXAM ED Triage Vitals [05/20/25 2220] Temp Heart Rate Resp BP 37.1 C (98.7 F) 68 20 137/80 SpO2 Temp Source Heart Rate Source Patient Position 99 % Temporal Monitor -- BP Location FiO2 (%) -- -- Physical Exam Vitals and nursing note reviewed. Constitutional: General: He is not in acute distress. Appearance: He is well-developed. HENT: Head: Normocephalic and atraumatic. Eyes: Conjunctiva/sclera: Conjunctivae normal. Cardiovascular: Rate and Rhythm: Normal rate and regular rhythm. Heart sounds: No murmur heard. Pulmonary: Effort: Pulmonary effort is normal. No respiratory distress. Breath sounds: Normal breath sounds. Abdominal: Palpations: Abdomen is soft. Tenderness: There is no abdominal tenderness. Musculoskeletal: General: No swelling. Cervical back: Neck supple. Skin: General: Skin is warm and dry. Capillary Refill: Capillary refill takes less than 2 seconds. Neurological: Mental Status: He is alert. Comments: NIH 0. No focal deficits. Moving all extremities. No ataxia. Finger-nose heel sexton normal bilaterally. Sensation and strength intact throughout. GCS 15. No slurred speech or difficulty getting words out. Psychiatric: Mood and Affect: Mood normal. DIAGNOSTIC RESULTS RADIOLOGY (Per Emergency Physician): Interpretation per the Radiologist below, if available at the time of this note: CT head wo IV contrast Final Result 1. No acute intracranial abnormalities. 2. Chronic sinonasal polyposis bilaterally. Report Dictated on Electronically Signed By: Avinash Miguel MD Electronically Signed Date/Time: 05/21/2025 1:00 AM EDT XR chest 1 view Final Result 1. Hypoinflation. 2. No other acute findings. Report Dictated on Electronically Signed By: Yasmani Briscoe MD Electronically Signed Date/Time: 05/20/2025 11:56 PM EDT LABS: Labs Reviewed COMPREHENSIVE METABOLIC PANEL - Abnormal Result Value SODIUM 142 POTASSIUM 4.1 CHLORIDE 111 (*) CARBON DIOXIDE 23 ANION GAP 8 UREA NITROGEN 17 CREATININE 0.89 GLUCOSE 163 (*) CALCIUM 8.7 (*) AST (SGOT) 25 ALT 18 ALKALINE PHOSPHATASE 66 ALBUMIN 3.5 BILIRUBIN, TOTAL 0.4 TOTAL PROTEIN 6.3 (*) eGFR >90.0 CBC WITH AUTO DIFFERENTIAL - Normal Auto WBC 8.7 RBC 4.43 Hemoglobin 13.7 Hematocrit 41.1 MCV 92.8 MCH 30.9 MCHC 33.3 RDW 13.8 Platelets 179 MPV 10.6 nRBC 0.0 Neutrophils Relative 64.3 Lymphocytes Relative 20.8 Monocytes Relative 8.7 Eosinophils Relative 5.2 Basophils Relative 0.5 Immature Grans % 0.5 Neutrophils Absolute 5.6 Lymphocytes Absolute 1.8 Monocytes Absolute 0.8 Eosinophils Absolute 0.5 Basophils Absolute 0.0 Immature Grans Absolute 0.0 HIGH SENSITIVITY TROPONIN, SERIAL BASELINE - Normal Troponin HS Serial Baseline 5 NT PRO BNP - Normal NT PRO BNP 89 HIGH SENSITIVITY TROPONIN, SERIAL, SECOND TEST - Normal 2h Troponin HS (Serial 2nd Troponin) 4 All other labs were within normal range or not returned as of this dictation. EMERGENCY DEPARTMENT COURSE and DIFFERENTIAL DIAGNOSIS/MDM: Vitals: Vitals: 05/20/25 2220 05/21/25 0206 05/21/25 0209 BP: 137/80 119/74 BP Location: Left arm Patient Position: Lying Pulse: 68 61 Resp: 20 16 Temp: 37.1 C (98.7 F) 36.1 C (97 F) TempSrc: Temporal Temporal SpO2: 99% 97% Weight: 107 kg (235 lb) Height: 1.829 m (6') Medications diazePAM (Valium) tablet 5 mg (5 mg Oral Given 05/21/257) ondansetron (Zofran) injection 4 mg (4 mg IntraVENous Given 05/21/257) diphenhydrAMINE (BENADryl) injection 25 mg (25 mg IntraVENous Given 05/21/25122) SCREENINGS Kermit Coma Scale Best Eye Response: Spontaneous Best Verbal Response: Oriented Best Motor Response: Follows commands Kermit Coma Scale Score: 15 Patient in for evaluation of dizziness. Started over 24 hours ago. He states it all reproduces with laying flat or standing up. At rest and when he keeps his head straight he has no symptoms. His exam is reassuring his NIH score is 0. He has no focal deficits. He has no weakness or slurred speech or sensory changes. His labs are reassuring as well electrolytes were within normal limits. His troponin was 5, his EKG showed no STEMI. His chest x-ray was clear his CT head was negative as well. I believe this is all secondary to peripheral vertigo at this time. He exhibits no truncal ataxia. He tried meclizine prior to arrival and then he was given a dose of Valium here. I attempted to ambulate him and he is unsteady, I do not believe he is safe to go home at this time. I spoke with patient and and they are agreeable for admission. I consulted hospitalist Dr. Marmolejo for admit PROCEDURES: Unless otherwise noted below, none Procedures FINAL IMPRESSION 1. Dizziness DISPOSITION Admit 05/21/2025 05:28:36 AM PATIENT REFERRED TO: No follow-up provider specified. DISCHARGE MEDICATIONS: New Prescriptions No medications on file (Comment: Please note this report has been produced using speech recognition software and may contain errors related to that system including errors in grammar, punctuation, and spelling, as well as words and phrases that may be inappropriate. If there are any questions or concerns please feel free to contact the dictating provider for clarification.) Jacoby Sanders DO (electronically signed) Emergency Medicine Provider [1] Past Medical History: Diagnosis Date Arthritis SVT (supraventricular tachycardia) (HCC) Syncope [2] Past Surgical History: Procedure Laterality Date AMPUTATION fingers CHOLECYSTECTOMY [3] Family History Problem Relation Name Age of Onset Coronary artery disease Mother Emphysema Father COPD Mother COPD Brother COPD Father Heart failure Mother CHF Diabetes Brother [4] Social History Socioeconomic History Marital status: Tobacco Use Smoking status: Former Current packs/day: 0.00 Types: Cigarettes Quit date: 10/16/1982 Years since quittin.6 Smokeless tobacco: Former Quit date: 10/16/1981 Substance and Sexual Activity Alcohol use: No Drug use: No Jacoby Sanders DO 05/21/25 0534 [facility] 01-14-2025 Miscellaneous Notes Formattin g of this note might be different from the original. Care Management Progress Note Short Medical why still here: Patient remains on 4S today for complaints of dizziness/KENT. Neurology consulted to see. CT head/MRI brain complete. No acute findings/no significant stenosis. CT head showed some nasal polyps/MRI some paranasal sinus disease/polyposis. EKG SR. Swallow eval passed. Patient independent Planned Discharge Disposition: Home with spouse Barriers/Today we still Wait: Clinical stability, Supply Chain Generalist recommendations (Neuro) Length of Stay (Days): 0 GMLOS: No GMLOS Documented documented in this encounter [facility] 12-20-2024 Note Sinus rhythm Abnormal R-wave progression, early transition Minimal ST depression, lateral leads Electronically Signed On 12-20-2024 15:38:23 EST by Cydney Cantu [facility] 12-20-2024 Note Sinus rhythm Abnormal R-wave progression, early transition Minimal ST depression, lateral leads Electronically Signed On 12-20-2024 15:38:23 EST by Cydney Cantu [facility] 12-20-2024 Note IMPRESSION: Sinus rhythm Abnormal R-wave progression, early transition Minimal ST depression, lateral leads Electronically Signed On 12-20-2024 15:38:23 EST by Cydney Cantu [facility] 12-20-2024 Hospital Discharg e instructions Cydney Cantu DO - 12/20/2024 11:38 AM EST Antivert as needed for dizziness and Zofran for nausea. Can follow-up with ENT if you have persistent mild symptoms but if your symptoms are unable to be managed at home please return to the emergency department for reevaluation. The following attachments cannot be sent through Care Everywhere.Chronic Sinusitis ([place])Vertigo (a Type of Dizziness) Discharge Instructions ([place] Citizen)documented in this encounter [facility] 12-20-2024 Emergency department Note EMERGENCY DEPARTMENT ENCOUNTER Pt Name: Joseph Brown Birthdate 1955 Date of evaluation: 12/20/2024 ED Provider: Cydney Cantu DO CHIEF COMPLAINT Chief Complaint Patient presents with Vomiting Vertigo Pt comes to ED via EMS from home with c/o vertigo and vomiting that started around 0330 this morning. Pt states he feels like he is on a boat in the ocean and feels like he is spinning. Pt is vomiting during triage and states that the base of his neck is hurting and that began this morning. Pt states this has happened twice before 1 month ago and 3 weeks ago. HISTORY OF PRESENT ILLNESS (Location/Symptom, Timing/Onset, Context/Setting, Quality, Duration, Modifying Factors, Severity) Note limiting factors. I wore appropriate PPE for the entirety of this encounter. HPI 69-year-old male with past medical history of hyperlipidemia and arthritis presents emergency department today with room spinning dizziness, nausea and vomiting onset 4 AM. States he had an episode about 5 weeks ago which resolved after getting some fresh air. Denies any chest pain or palpitations. Denies any abdominal pain. Nursing Notes were reviewed. Limitations to history: None Outside historians: None REVIEW OF SYSTEMS Review of Systems Gastrointestinal: Positive for nausea and vomiting. Neurological: Positive for dizziness. Pertinent positives and negatives as per HPI. PAST MEDICAL HISTORY Past Medical History: Diagnosis Date Arthritis SVT (supraventricular tachycardia) (HCC) Syncope SURGICAL HISTORY Past Surgical History: Procedure Laterality Date AMPUTATION fingers CHOLECYSTECTOMY CURRENT MEDICATIONS Previous Medications ATORVASTATIN (LIPITOR) 10 MG TABLET Take 10 mg by mouth daily. MELOXICAM (MOBIC) 15 MG TABLET Take 1 tablet by mouth daily. ALLERGIES Patient has no known allergies. FAMILY HISTORY Family History Problem Relation Name Age of Onset Coronary artery disease Mother Emphysema Father COPD Mother COPD Brother COPD Father Heart failure Mother CHF Diabetes Brother SOCIAL HISTORY Social History Socioeconomic History Marital status: Tobacco Use Smoking status: Former Current packs/day: 0.00 Types: Cigarettes Quit date: 10/16/1982 Years since quittin.2 Smokeless tobacco: Former Quit date: 10/16/1981 Substance and Sexual Activity Alcohol use: No Drug use: No SCREENINGS Brawley Coma Scale Best Eye Response: Spontaneous Best Verbal Response: Oriented Best Motor Response: Follows commands Kermit Coma Scale Score: 15 NIH Stroke Scale 1A. Level of Consciousness: Alert, Keenly Responsive 1B. Ask Month and Age: Both Questions Right 1C. Blink Eyes & Squeeze Hands: Performs Both Tasks 2. Best Gaze: Normal 3. Visual: No Visual Loss 4. Facial Palsy: Normal Symmetrical Movements 5A. Motor - Left Arm: No Drift 5B. Motor - Right Arm: No Drift 6A. Motor - Left Leg: No Drift 6B. Motor - Right Leg: No Drift 7. Limb Ataxia: Absent 8. Sensory Loss: Normal 9. Best Language: No Aphasia 10. Dysarthria: Normal 11. Extinction and Inattention: No Abnormality NIH Stroke Scale: 0 PHYSICAL EXAM ED Triage Vitals Temp Pulse Resp BP -- -- -- -- SpO2 Temp src Heart Rate Source Patient Position -- -- -- -- BP Location FiO2 (%) -- -- Physical Exam Vitals and nursing note reviewed. Constitutional: General: He is not in acute distress. Appearance: He is well-developed. HENT: Head: Normocephalic and atraumatic. Eyes: Conjunctiva/sclera: Conjunctivae normal. Cardiovascular: Rate and Rhythm: Normal rate and regular rhythm. Heart sounds: No murmur heard. Pulmonary: Effort: Pulmonary effort is normal. No respiratory distress. Breath sounds: Normal breath sounds. Abdominal: Palpations: Abdomen is soft. Tenderness: There is no abdominal tenderness. Comments: Actively vomiting Musculoskeletal: General: No swelling. Cervical back: Neck supple. Skin: General: Skin is warm and dry. Neurological: Mental Status: He is alert. Psychiatric: Mood and Affect: Mood normal. DIAGNOSTIC RESULTS Procedures/EKG: EKG was reviewed by myself. Physician EKG interpretation can be found in [facility] RADIOLOGY (Per Emergency Physician): Interpretation per the Radiologist below, if available at the time of this note: CTA head neck angio w and wo IV contrast Final Result No large vessel occlusion or high-grade stenosis in the head or neck. Less than 30 percent stenosis of the proximal cervical ICAs bilaterally by NASCET criteria. Report Dictated on Electronically Signed By: Jerardo Magallanes MD Electronically Signed Date/Time: 12/20/2024 11:[address] head wo IV contrast Final Result 1. No acute intracranial abnormality. Chronic microvascular change. 2. Fairly extensive paranasal sinus disease. Report Dictated on Electronically Signed By: Haresh Reyes MD Electronically Signed Date/Time: 12/20/2024 10:05 AM EST XR chest 1 view Final Result No acute cardiopulmonary abnormality identified. Report Dictated on Electronically Signed By: Haresh Reyes MD Electronically Signed Date/Time: 12/20/2024 9:31 AM EST ED BEDSIDE ULTRASOUND: Performed by ED Physician - none LABS: Labs Reviewed BASIC METABOLIC PANEL - Abnormal Result Value SODIUM 140 POTASSIUM 3.8 CHLORIDE 109 (*) CARBON DIOXIDE 21 (*) UREA NITROGEN 18 CREATININE 0.81 GLUCOSE 134 (*) CALCIUM 8.8 ANION GAP 10 eGFR >90.0 CBC WITH AUTO DIFFERENTIAL - Normal Auto WBC 8.6 RBC 4.84 Hemoglobin 14.7 Hematocrit 43.6 MCV 90.1 MCH 30.4 MCHC 33.7 RDW 13.6 Platelets 207 MPV 10.2 nRBC 0.0 Neutrophils Relative 63.8 Lymphocytes Relative 24.2 Monocytes Relative 6.7 Eosinophils Relative 4.3 Basophils Relative 0.5 Immature Grans % 0.5 Neutrophils Absolute 5.5 Lymphocytes Absolute 2.1 Monocytes Absolute 0.6 Eosinophils Absolute 0.4 Basophils Absolute 0.0 Immature Grans Absolute 0.0 HIGH SENSITIVITY TROPONIN, SERIAL BASELINE - Normal Troponin HS Serial Baseline <3 HIGH SENSITIVITY TROPONIN, SERIAL, SECOND TEST All other labs were within normal range or not returned as of this dictation. EMERGENCY DEPARTMENT COURSE and DIFFERENTIAL DIAGNOSIS/MDM: Vitals: Vitals: 12/20/24 0909 12/20/24 1118 BP: (!) 142/81 118/65 BP Location: Left arm Patient Position: Lying Pulse: 78 73 Resp: 20 SpO2: 100% 98% Weight: 109 kg (240 lb) Height: 1.854 m (6' 1) ED Course as of 12/20/24 1139 MonDec 20, 2024 0907 69-year-old male with past medical history of hyperlipidemia and arthritis presents emergency department today with room spinning dizziness, nausea and vomiting onset 4 AM. States he had an episode about 5 weeks ago which resolved after getting some fresh air. Denies any chest pain or palpitations. Denies any abdominal pain. On exam dry mucous membranes actively vomiting. Abdomen soft and nontender heart regular rate, lungs are clear. Will give IV fluid bolus, Phenergan for nausea and Antivert for dizziness. Already received 4 mg of Zofran by EMS. Will check CBC, BMP, troponin, CT head, chest x-ray and EKG. Differential diagnosis includes BPPV, dehydration, less concern for CVA, electrolyte abnormality, less concern for ACS, arrhythmia, hypoglycemia. [BM] 0940 Chest x-ray no acute cardiopulmonary process. [BM] 0948 CBC unremarkable. [BM] 0953 NIH stroke scale 0. Feeling somewhat improved no longer vomiting but still feeling dizzy and nauseous. Will give Zofran and another dose of meclizine. States that the symptoms definitely seem to get worse when he does head turning or standing up from seated. Have higher suspicion for BPPV or orthostatic hypotension. [BM] 1009 CT head: 1. No acute intracranial abnormality. Chronic microvascular change. 2. Fairly extensive paranasal sinus disease. [BM] 1010 After Zofran nausea is improving. [BM] 1023 CBC, BMP, troponin unremarkable. [BM] 1133 No large vessel occlusion or high-grade stenosis in the head or neck. Less than 30 percent stenosis of the proximal cervical ICAs bilaterally by NASCET criteria. [BM] 1138 Feeling improved after medications will discharge home with prescription for meclizine for vertigo, Zofran for nausea and amoxicillin for sinusitis. Given ENT referral and return precautions. [BM] ED Course User Index [BM] Cydney Cantu, Diagnoses as of 12/20/24 1139 Sinusitis, unspecified chronicity, unspecified location Vertigo CT head without contrast is interpreted myself showing no acute intracranial bleed. Medications promethazine (Phenergan) injection 25 mg (25 mg IntraMUSCular Given 12/20/24 0920) meclizine (Antivert) tablet 25 mg (25 mg Oral Given 12/20/24 0920) sodium chloride 0.9 % bolus 1,000 mL (0 mL IntraVENous Stopped 12/20/24 1028) ondansetron (Zofran) injection 4 mg (4 mg IntraVENous Given 12/20/24 1024) meclizine (Antivert) tablet 25 mg (25 mg Oral Given 12/20/24 1023) iopamidol (Isovue-370) 76 % injection 75 mL (75 mL IntraVENous Given 12/20/24 1048) acetaminophen (Tylenol) tablet 650 mg (650 mg Oral Given 12/20/24 1128) REVAL: CRITICAL CARE TIME FINAL IMPRESSION 1. Sinusitis, unspecified chronicity, unspecified location 2. Vertigo DISPOSITION Discharge 12/20/2024 11:36:08 AM PATIENT REFERRED TO: [facility]NT - [address] [facility] [address] DISCHARGE MEDICATIONS: New Prescriptions AMOXICILLIN (AMOXIL) 875 MG TABLET Take 1 tablet (875 mg) by mouth 2 times daily for 5 days. MECLIZINE (ANTIVERT) 25 MG TABLET Take 1 tablet (25 mg) by mouth 3 times daily as needed for dizziness for up to 10 days. ONDANSETRON ODT (ZOFRAN-ODT) 4 MG DISINTEGRATING TABLET Take 1 tablet (4 mg) by mouth every 8 hours as needed for nausea or vomiting for up to 7 days. (Comment: Please note this report has been produced using speech recognition software and may contain errors related to that system including errors in grammar, punctuation, and spelling, as well as words and phrases that may be inappropriate. If there are any questions or concerns please feel free to contact the dictating provider for clarification.) Cydney Cantu DO (electronically signed) Emergency Medicine Provider Cydney Cantu DO 12/20/24 1139 Pt comes to ED via EMS from home with c/o vertigo and vomiting that started around 0330 this morning. Pt states he feels like he is on a boat in the ocean and feels like he is spinning. Pt is vomiting during triage and states that the base of his neck is hurting and that began this morning. Pt states this has happened twice before 1 month ago and 3 weeks ago. documented in this encounter [facility] 12-20-2024 Emergency department Triage note Pt comes to ED via EMS from home with c/o vertigo and vomiting that started around 0330 this morning. Pt states he feels like he is on a boat in the ocean and feels like he is spinning. Pt is vomiting during triage and states that the base of his neck is hurting and that began this morning. Pt states this has happened twice before 1 month ago and 3 weeks ago. [facility] 12-20-2024 Physician Emergen cy department Note EMERGENCY DEPARTMENT ENCOUNTER Pt Name: Joseph Brown Birthdate 1955 Date of evaluation: 12/20/2024 ED Provider: Cydney Cantu DO CHIEF COMPLAINT Chief Complaint Patient presents with Vomiting Vertigo Pt comes to ED via EMS from home with c/o vertigo and vomiting that started around 0330 this morning. Pt states he feels like he is on a boat in the ocean and feels like he is spinning. Pt is vomiting during triage and states that the base of his neck is hurting and that began this morning. Pt states this has happened twice before 1 month ago and 3 weeks ago. HISTORY OF PRESENT ILLNESS (Location/Symptom, Timing/Onset, Context/Setting, Quality, Duration, Modifying Factors, Severity) Note limiting factors. I wore appropriate PPE for the entirety of this encounter. HPI 69-year-old male with past medical history of hyperlipidemia and arthritis presents emergency department today with room spinning dizziness, nausea and vomiting onset 4 AM. States he had an episode about 5 weeks ago which resolved after getting some fresh air. Denies any chest pain or palpitations. Denies any abdominal pain. Nursing Notes were reviewed. Limitations to history: None Outside historians: None REVIEW OF SYSTEMS Review of Systems Gastrointestinal: Positive for nausea and vomiting. Neurological: Positive for dizziness. Pertinent positives and negatives as per HPI. PAST MEDICAL HISTORY Past Medical History: Diagnosis Date Arthritis SVT (supraventricular tachycardia) (HCC) Syncope SURGICAL HISTORY Past Surgical History: Procedure Laterality Date AMPUTATION fingers CHOLECYSTECTOMY CURRENT MEDICATIONS Previous Medications ATORVASTATIN (LIPITOR) 10 MG TABLET Take 10 mg by mouth daily. MELOXICAM (MOBIC) 15 MG TABLET Take 1 tablet by mouth daily. ALLERGIES Patient has no known allergies. FAMILY HISTORY Family History Problem Relation Name Age of Onset Coronary artery disease Mother Emphysema Father COPD Mother COPD Brother COPD Father Heart failure Mother CHF Diabetes Brother SOCIAL HISTORY Social History Socioeconomic History Marital status: Tobacco Use Smoking status: Former Current packs/day: 0.00 Types: Cigarettes Quit date: 10/16/1982 Years since quittin.2 Smokeless tobacco: Former Quit date: 10/16/1981 Substance and Sexual Activity Alcohol use: No Drug use: No SCREENINGS Brawley Coma Scale Best Eye Response: Spontaneous Best Verbal Response: Oriented Best Motor Response: Follows commands Brawley Coma Scale Score: 15 NIH Stroke Scale 1A. Level of Consciousness: Alert, Keenly Responsive 1B. Ask Month and Age: Both Questions Right 1C. Blink Eyes & Squeeze Hands: Performs Both Tasks 2. Best Gaze: Normal 3. Visual: No Visual Loss 4. Facial Palsy: Normal Symmetrical Movements 5A. Motor - Left Arm: No Drift 5B. Motor - Right Arm: No Drift 6A. Motor - Left Leg: No Drift 6B. Motor - Right Leg: No Drift 7. Limb Ataxia: Absent 8. Sensory Loss: Normal 9. Best Language: No Aphasia 10. Dysarthria: Normal 11. Extinction and Inattention: No Abnormality NIH Stroke Scale: 0 PHYSICAL EXAM ED Triage Vitals Temp Pulse Resp BP -- -- -- -- SpO2 Temp src Heart Rate Source Patient Position -- -- -- -- BP Location FiO2 (%) -- -- Physical Exam Vitals and nursing note reviewed. Constitutional: General: He is not in acute distress. Appearance: He is well-developed. HENT: Head: Normocephalic and atraumatic. Eyes: Conjunctiva/sclera: Conjunctivae normal. Cardiovascular: Rate and Rhythm: Normal rate and regular rhythm. Heart sounds: No murmur heard. Pulmonary: Effort: Pulmonary effort is normal. No respiratory distress. Breath sounds: Normal breath sounds. Abdominal: Palpations: Abdomen is soft. Tenderness: There is no abdominal tenderness. Comments: Actively vomiting Musculoskeletal: General: No swelling. Cervical back: Neck supple. Skin: General: Skin is warm and dry. Neurological: Mental Status: He is alert. Psychiatric: Mood and Affect: Mood normal. DIAGNOSTIC RESULTS Procedures/EKG: EKG was reviewed by myself. Physician EKG interpretation can be found in [facility] RADIOLOGY (Per Emergency Physician): Interpretation per the Radiologist below, if available at the time of this note: CTA head neck angio w and wo IV contrast Final Result No large vessel occlusion or high-grade stenosis in the head or neck. Less than 30 percent stenosis of the proximal cervical ICAs bilaterally by NASCET criteria. Report Dictated on Electronically Signed By: Jerardo Magallanes MD Electronically Signed Date/Time: 12/20/2024 11:[address] head wo IV contrast Final Result 1. No acute intracranial abnormality. Chronic microvascular change. 2. Fairly extensive paranasal sinus disease. Report Dictated on Electronically Signed By: Haresh Reyes MD Electronically Signed Date/Time: 12/20/2024 10:05 AM EST XR chest 1 view Final Result No acute cardiopulmonary abnormality identified. Report Dictated on Electronically Signed By: Haresh Reyes MD Electronically Signed Date/Time: 12/20/2024 9:31 AM EST ED BEDSIDE ULTRASOUND: Performed by ED Physician - none LABS: Labs Reviewed BASIC METABOLIC PANEL - Abnormal Result Value SODIUM 140 POTASSIUM 3.8 CHLORIDE 109 (*) CARBON DIOXIDE 21 (*) UREA NITROGEN 18 CREATININE 0.81 GLUCOSE 134 (*) CALCIUM 8.8 ANION GAP 10 eGFR >90.0 CBC WITH AUTO DIFFERENTIAL - Normal Auto WBC 8.6 RBC 4.84 Hemoglobin 14.7 Hematocrit 43.6 MCV 90.1 MCH 30.4 MCHC 33.7 RDW 13.6 Platelets 207 MPV 10.2 nRBC 0.0 Neutrophils Relative 63.8 Lymphocytes Relative 24.2 Monocytes Relative 6.7 Eosinophils Relative 4.3 Basophils Relative 0.5 Immature Grans % 0.5 Neutrophils Absolute 5.5 Lymphocytes Absolute 2.1 Monocytes Absolute 0.6 Eosinophils Absolute 0.4 Basophils Absolute 0.0 Immature Grans Absolute 0.0 HIGH SENSITIVITY TROPONIN, SERIAL BASELINE - Normal Troponin HS Serial Baseline <3 HIGH SENSITIVITY TROPONIN, SERIAL, SECOND TEST All other labs were within normal range or not returned as of this dictation. EMERGENCY DEPARTMENT COURSE and DIFFERENTIAL DIAGNOSIS/MDM: Vitals: Vitals: 12/20/24 0909 12/20/24 1118 BP: (!) 142/81 118/65 BP Location: Left arm Patient Position: Lying Pulse: 78 73 Resp: 20 SpO2: 100% 98% Weight: 109 kg (240 lb) Height: 1.854 m (6' 1) ED Course as of 12/20/24 1139 MonDec 20, 2024 0907 69-year-old male with past medical history of hyperlipidemia and arthritis presents emergency department today with room spinning dizziness, nausea and vomiting onset 4 AM. States he had an episode about 5 weeks ago which resolved after getting some fresh air. Denies any chest pain or palpitations. Denies any abdominal pain. On exam dry mucous membranes actively vomiting. Abdomen soft and nontender heart regular rate, lungs are clear. Will give IV fluid bolus, Phenergan for nausea and Antivert for dizziness. Already received 4 mg of Zofran by EMS. Will check CBC, BMP, troponin, CT head, chest x-ray and EKG. Differential diagnosis includes BPPV, dehydration, less concern for CVA, electrolyte abnormality, less concern for ACS, arrhythmia, hypoglycemia. [BM] 0940 Chest x-ray no acute cardiopulmonary process. [BM] 0948 CBC unremarkable. [BM] 0953 NIH stroke scale 0. Feeling somewhat improved no longer vomiting but still feeling dizzy and nauseous. Will give Zofran and another dose of meclizine. States that the symptoms definitely seem to get worse when he does head turning or standing up from seated. Have higher suspicion for BPPV or orthostatic hypotension. [BM] 1009 CT head: 1. No acute intracranial abnormality. Chronic microvascular change. 2. Fairly extensive paranasal sinus disease. [BM] 1010 After Zofran nausea is improving. [BM] 1023 CBC, BMP, troponin unremarkable. [BM] 1133 No large vessel occlusion or high-grade stenosis in the head or neck. Less than 30 percent stenosis of the proximal cervical ICAs bilaterally by NASCET criteria. [BM] 1138 Feeling improved after medications will discharge home with prescription for meclizine for vertigo, Zofran for nausea and amoxicillin for sinusitis. Given ENT referral and return precautions. [BM] ED Course User Index [BM] Cydney Cantu, Diagnoses as of 12/20/24 1139 Sinusitis, unspecified chronicity, unspecified location Vertigo CT head without contrast is interpreted myself showing no acute intracranial bleed. Medications promethazine (Phenergan) injection 25 mg (25 mg IntraMUSCular Given 12/20/24 0920) meclizine (Antivert) tablet 25 mg (25 mg Oral Given 12/20/24 0920) sodium chloride 0.9 % bolus 1,000 mL (0 mL IntraVENous Stopped 12/20/24 1028) ondansetron (Zofran) injection 4 mg (4 mg IntraVENous Given 12/20/24 1024) meclizine (Antivert) tablet 25 mg (25 mg Oral Given 12/20/24 1023) iopamidol (Isovue-370) 76 % injection 75 mL (75 mL IntraVENous Given 12/20/24 1048) acetaminophen (Tylenol) tablet 650 mg (650 mg Oral Given 12/20/24 1128) REVAL: CRITICAL CARE TIME FINAL IMPRESSION 1. Sinusitis, unspecified chronicity, unspecified location 2. Vertigo DISPOSITION Discharge 12/20/2024 11:36:08 AM PATIENT REFERRED TO: [facility] - [address] [facility] [address] DISCHARGE MEDICATIONS: New Prescriptions AMOXICILLIN (AMOXIL) 875 MG TABLET Take 1 tablet (875 mg) by mouth 2 times daily for 5 days. MECLIZINE (ANTIVERT) 25 MG TABLET Take 1 tablet (25 mg) by mouth 3 times daily as needed for dizziness for up to 10 days. ONDANSETRON ODT (ZOFRAN-ODT) 4 MG DISINTEGRATING TABLET Take 1 tablet (4 mg) by mouth every 8 hours as needed for nausea or vomiting for up to 7 days. (Comment: Please note this report has been produced using speech recognition software and may contain errors related to that system including errors in grammar, punctuation, and spelling, as well as words and phrases that may be inappropriate. If there are any questions or concerns please feel free to contact the dictating provider for clarification.) Cydney Cantu DO (electronically signed) Emergency Medicine Provider Cydney Cantu DO 12/20/24 1139 [facility] Evaluation note Diagnosis Pneumonia due to COVID-19 virus documented in this encounter [facility] Work Phone: Evaluation note* Diagnosis Sinusitis, unspecified chronicity, unspecified location- Primary Vertigo Dizziness and giddiness documented in this encounter [facility]* Diagnosis Dizziness- Primary Dizziness and giddiness Dizziness Dizziness and giddiness documented in this encounter [facility]* Diagnosis Laceration of right thumb without foreign body without damage to nail, initial encounter- Primary documented in this encounter [facility] Advance Directives No Advanced Directives Records FoundDocuments on File Type Date Recorded 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 Advance Directives and Living Will Power of Fish Hatchery Inspector Latest Code Status on File Code Status Date Activated Date Inactivated Comments Full Code 08/06/2017 4:23 PM 08/08/2017 3:33 PM Documents on File Type Date Recorded 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 ACP-Advance Directive ACP-Power of Fish Hatchery Inspector Latest Code Status on File Code Status Date Activated Date Inactivated Comments Full Code 10/20/2020 2:43 AM Full Code 10/19/2020 10:54 AM 10/20/2020 2:43 AM Full Code 08/06/2017 4:23 PM 08/08/2017 3:33 PM Documents on File Type Date Recorded 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 ACP-Advance Directive ACP-Power of Fish Hatchery Inspector Latest Code Status on File Code Status Date Activated Date Inactivated Comments Full Code 10/20/2020 2:43 AM 11/04/2020 6:23 PM Full Code 10/19/2020 10:54 AM 10/20/2020 2:43 AM Full Code 08/06/2017 4:23 PM 08/08/2017 3:33 PM Latest Code Status on File Code Status Date Activated Date Inactivated Comments Full Code 10/20/2020 2:43 AM 11/04/2020 6:23 PM Date Activated Date Inactivated Comments 05/21/2025 6:46 AM Date Activated Date Inactivated Comments 05/21/2025 9:16 PM 05/22/2025 7:18 PM Date Activated Date Inactivated Comments 05/21/2025 6:46 AM 05/21/2025 9:16 PM Discharge Instructions * Instructions* Fransisco Lopez MD - 10/16/2020 Most people with respiratory infections like colds, the flu, and Coronavirus Disease (COVID-19) will have mild illness and can get better with appropriate home care and without the need to see a medical provider. People who are elderly, , or have a weak immune system, or other medical problem are at higher risk of more serious illness or complications. It is recommended that they carefully monitor their symptoms closely and seek medical care early. Treatment There is no specific treatment for most viruses, including those that cause the common cold and those that cause COVID-19. Sometimes there is treatment for viruses that cause influenza if given soon after the onset of symptoms. Antibiotics treat infections caused by bacteria, but they do not work against viruses. Most people recover on their own from these viruses, including COVID-19. Here are steps that you can take to help you get better: Rest Drink plenty of fluids Take [id number] cold and flu medications to reduce fever and pain. Follow the instructions onthe package, unless your doctor gave you specific instructions. Note that these medicines do not 'cure' the illness and do not stop you from spreading germs. When to Seek Medical Care You should seek medical care if you are not getting better within a week, or if your symptoms get worse. It is best to call your doctor ahead of time to discuss your symptoms, if possible. Some providers offer telemedicine services that can assist as well. This may allow you to receive the advice you need by phone. By avoiding a visit to a healthcare facility, you protect yourself from getting a n ew infection and protect others from catching an infection from you. If you do visit a healthcare facility, put on a mask to protect other patients and staff. It is recommended that you seek medical care and return immediately to the Emergency Department forany serious symptoms, such as: Return immediately for any difficulty breathing, confusion, dizziness or passing out, vomiting, chest pain, high fevers, weakness, or any other new or concerning symptoms. People with potentially life-threatening symptoms should call 911. If possible, put on a facemask before emergency medical services arrive. What should I do if home isolation has been recommended? The following instructions are provided to assist you to safely care for yourself or others who areinfected or potentially infected with COVID-19. These instructions are also available at: https://www.cdc.gov/coronavirus/2019-ncov/hcp/xbnjetwu-xvlhvss-flmluh.html It has been determined that you do not need to be hospitalized at this time, and can safely be isolated at home. You should follow the prevention steps below until a health care provider or local health department says you can return to your normal activities. Stay home except to get medical care You should restrict activities outside your home, except for getting medical care. Under no circumstance should you go to work, school, or public areas. Avoid using public transportation, ride sharing, or taxis. Separate yourself from other people and animals in your home People: As much as possible, you should stay in a specific room and away from other people in your home. Also, you should use a separate bathroom, if available. Animals: You should restrict contact with pets and other animals while you are sick with COVID-19, just like you would around other people. Although there have not been reports of pets or other animals becoming sick with COVID-19, it is still recommended that people with COVID-19 limit contact withanimals until more information is known about the virus. When possible, have another member of yourhousehold care for your animals while you are sick. If you must care for your pet or be around animals while you are sick, wash your hands before and after you interact with pets and wear a facemask. Call ahead before visiting your doctor If you have a medical appointment, call the health care provider prior to your appointment and tellthem that you have or may have COVID-19. This will help the health care provider's office take steps to keep other people from getting infected or exposed. Ask your health care provider to call the local or state health department. Persons who are placed under active monitoring or self- monitoring should follow instructions provided by their local health department or occupational health professionals, as appropriate. If you have a medical emergency and need to call 911, notify the dispatch personnel that you have, or are being evaluated for COVID-19. If possible, put on a facemask before [facility] services arrive. Take care of your mental health You might be feeling anxious, afraid, lonely or uncertain. The following link has a guide with a list of helpful behavioral health resources and a few tips for taking care of your emotional health while you are quarantined: https://[employer].[facility].gov/system/files/ift32-2429.pdf Wear a face mask You should wear a facemask when you are around other people (for example, sharing a room or vehicle) or pets, and before you enter a health care provider's office. If you are not able to wear a facemask (for example, because it causes trouble breathing), then people who live with you should not stay in the same room with you, or they should wear a facemask if they enter your room. Cover your coughs and sneezes Cover your mouth and nose with a tissue when you cough or sneeze. Throw used tissues in a lined trash can. Clean your hands often Wash your hands often with soap and water for at least 20 seconds or clean your hands with an alcohol-based hand harvest contractor that contains 60 to 95% alcohol, covering all surfaces of your hands and rubbing them together until they feel dry. Soap and water should be used preferentially if your hands are visibly dirty. Avoid touching your eyes, nose, and mouth with unwashed hands. Avoid touching your face Viruses that affect the respiratory system enter the body through mucous membranes which are found in the eyes, nose, and mouth. It only takes one touch for germs on your fingers to enter your body through your nostrils, eyes, or mouth. In addition to hand hygiene, this is an important way to help prevent transmission of infections. Clean all high-touch surfaces every day High-touch surfaces include counters, tabletops, doorknobs, bathroom fixtures, toilets, phones, keyboards, tablets, and bedside tables. Also, clean any surfaces that may have blood, stool, or body fluids on them. Use a household cleaning spray or wipe, according to the label instructions. Labels contain instructions for safe and effective use of the cleaning product including precautions you should take when applying the product, such as wearing gloves and making sure you have good ventilation while using the product. Avoid sharing personal household items You should not share dishes, drinking glasses, cups, eating utensils, towels or bedding with other people or pets in your home. After using these items, they should be washed thoroughly with soap andwater. Monitor your symptoms Please contact the [facility] as soon as possible. Persons who are placed under active monitoring or facilitated self-monitoring should follow instructions provided by their local health department or occupational health professionals, as appropriate. Seek immediate medical attention if your illness is worsening of if you develop any of the following: difficulty breathing, confusion, dizziness or passing out, vomiting, high fevers, weakness, or any other new or concerning symptoms. Before seeking care, call your health care provider and tell them that you have, or are being evaluated for COVID-19. Put on a facemask before you enter the facility. These steps will help keep other people in the office or waiting room from getting infected or exposed. If you have a medical emergency and need to call 911, notify the dispatch personnel that you have, or are being evaluated for COVID-19. If possible, put on a face mask before emergency medical services arrive. Visit: https://[facility].[place].gov For specific questions and answers about COVID-19, call the [facility] info line at 2-865 4ASK- ( ) Discontinuing home isolation Patients with confirmed COVID-19 should remain under home isolation precautions until the risk of secondary transmission to others is thought to be low. The decision to discontinue home isolation precautions is made on a oeln-bm-eliw basis, in consultation with health care providers, and state and local health departments. Recommended precautions for household members, intimate partners, and caregivers If you are providing care for a person infected or suspected to be infected with COVID-19, please note the following instructions, which are also available at: https://www.cdc.gov/coronavirus/2019-ncov/hcp/bfutuhuy-tdmwdbj-ycfrpz.html How do I take care of someone who is quarantined in my home? Household members, intimate partners, and caregivers in a non-health care setting may have close contact (within 6 feet) with a person with symptomatic, laboratory-confirmed COVID-19 or a person under investigation. Those in close contact should monitor their health and should call their health care provider right away if they develop symptoms suggestive of COVID-19 (such as fever, cough, shortness of breath). Those in close contact should also follow these recommendations: Make sure that you understand and can help the patient follow their health care provider's instructions for medication(s) and care. You should help the patient with basic needs in the home and provide support for getting groceries, prescriptions and other personal needs Monitor the patient's symptoms. If the patient is getting sicker, call his or her health care provider and tell them that the patient has laboratory-confirmed or is under investigation for COVID-19. This will help the health care provider's office take steps to keep other people in the office or waiting room from getting infected. Ask the health care provider to call the local or state health department for additional guidance. If the patient has a medical emergency and you need to call 911, notify the dispatch personnel that the patient has, or is being evaluated for COVID-19 Household members should stay in another room or be from the patient as much as possible.Household members should use a separate bedroom and bathroom, if available Prohibit visitors who do not have an essential need to be in the home Household members should care for any pets in the home. Do not handle pets or other animals while sick Make sure that shared spaces in the home have good airflow, such as by an air conditioner or an opened window, weather permitting Perform hand hygiene frequently. Wash your hands often with soap and water for at least 20 seconds or use an alcohol-based hand harvest contractor that contains 60 to 95% alcohol, covering all surfaces of your hands and rubbing them together until they feel dry. Soap and water should be used preferentially if hands are visibly dirty Avoid touching your eyes, nose, and mouth with unwashed hands You and the patient should wear a facemask if you are in the same room Wear a disposable facemask and gloves when you touch or have contact with the patient's blood, stool, or body fluids, such as saliva, sputum, nasal mucus, vomit or urine. Do not reuse disposable facemasks and gloves. Throw them away after using them. When removing personal protective equipment, first remove and dispose of gloves. Then, immediately clean your hands with soap and water or alcohol-based hand harvest contractor. Next, remove and dispose of facemask, and immediately clean your hands again with soap and water or alcohol-based hand harvest contractor Avoid sharing household items with the patient. You should not share dishes, drinking glasses, cups, eating utensils, towels, bedding or other items. After the patient uses these items, you should wash them thoroughly (see below) Clean all high-touch surfaces, such as counters, tabletops, doorknobs, bathroom fixtures, toilets, phones, keyboards, tablets and bedside tables, every day. Also, clean any surfaces that may have blood, stool, or body fluids on them Use a household cleaning spray or wipe, according to the label instructions. Labels contain instructions for safe and effective use of the cleaning product including precautions you should take when applying the product, such as wearing gloves and making sure you have good ventilation during the use of the product Wash laundry thoroughly Immediately remove and wash clothes or bedding that have blood, stool, or body fluids on them Wear disposable gloves while handling soiled items and keep soiled items away from your body. Cleanyour hands (with soap and water or an alcohol-based hand harvest contractor) immediately after removing and throwing away your gloves Read and follow directions on labels for laundry or clothing items and detergent. In general, usinga normal laundry detergent according to washing machine instructions and dry thoroughly using the warmest temperatures recommended on the clothing label Place all used disposable gloves, facemasks, and other contaminated items in a lined container before disposing of them with other household waste. Clean your hands (with soap and water or an alcohol-based hand harvest contractor) immediately after handling these items. Soap and water should be used preferentially if hands are visibly dirty Discuss any additional questions with your state or local health department or health care provider What if I live with someone who's been told to self-quarantine? If the person you live with is NOT exhibiting respiratory symptoms, you can go about your day-to-day business, and you do not need to be tested or monitored. If the person you live with has respiratory symptoms (such as coughing or sneezing), but has not yet tested positive for COVID-19: Please make sure to stay home Monitor your symptoms closely, and seek medical attention if your symptoms are worsening Avoid public areas and public transportation Wear a facemask if you are sick Cover your coughs and sneezes with a tissue, dispose of the tissue and immediately wash your hands Wash your hands often for at least 20 seconds, and if soap and water are not available, use hand harvest contractor Avoid touching your eyes, nose or mouth Avoid sharing personal household items Clean 'high-touch' surfaces daily If the person you live with has tested positive for COVID-19, you will be considered a close contact, and will also likely be asked to self-quarantine. documented in this encounter* Discharge Instr - MEREA* Kishan Solano LSW - 11/03/2020 11:54 AM EST Continuity of Care Form Patient Name: Joseph Brown : 1955 Admit date: 10/19/2020 Discharge date: Code Status Order: Full Code Advance Directives: Advance Care Flowsheet Documentation Date/Time Healthcare Directive Type of Healthcare Directive Copy in Chart Healthcare Agent Appointed Healthcare Agent's Name Healthcare Agent's Phone Number 10/27/20 3007 No, patient does not have an advance directive for healthcare treatment 10/19/20 1134 Yes, patient has an advance directive for healthcare treatment Durable power of trial attorney for health care No, copy requested from family 10/19/20 0000 Healthcare power of trial attorney Katja Kevin Admitting Physician: Jerardo Green MD PCP: LAQUITA DING DO Discharging Nurse: Discharging Hospital Unit/Room#: 157/1571 Discharging Unit Phone Number: Emergency Contact: Extended Emergency Contact Information Primary Emergency Contact: Katja Brown [place] Relation: None Past Surgical History: Past Surgical History: Procedure Laterality Date AMPUTATION fingers CHOLECYSTECTOMY Immunization History: Immunization History Administered Date(s) Administered Tdap (Boostrix, Adacel) 08/06/2017 Active Problems: Patient Active Problem List Diagnosis Code Epididymal cyst N50.3 BPH without obstruction/lower urinary tract symptoms N40.0 Syncope R55 SVT (supraventricular tachycardia) ([facility]) I47.1 Pneumonia due to COVID-19 virus U07.1, J12.82 ARDS (adult respiratory distress syndrome) ([facility]) J80 Isolation/Infection: Isolation No Isolation Patient Infection Status Infection Onset Added Last Indicated Last Indicated By Review Planned Expiration Resolved Resolved By None active Resolved COVID-19 10/12/20 10/19/20 10/19/20 Anastacia Aguirre RN 11/03/20 Anastacia Aguirre RN Detected 10/12/20. Added from external infection. Nurse Assessment: Last Vital Signs: BP 105/64 Pulse 71 Temp 97.6 F (36.4 C) (Temporal) Resp 18 Ht 6' (1.829 m) Wt 240 lb 12.8 oz (109.2 kg) SpO2 94% BMI 32.66 kg/m Last documented pain score (0-10 scale): Pain Level: 0 Last Weight: Wt Readings from Last 1 Encounters: 10/29/20 240 lb 12.8 oz (109.2 kg) Mental Status: {IP PT MENTAL STATUS:18195} IV Access: { MEERA IV ACCESS:892268992} Nursing Mobility/ADLs: Walking {CHP DME ADLs:400822281} Transfer {CHP DME ADLs:968862990} Bathing {CHP DME ADLs:609742059} Dressing {CHP DME ADLs:096112715} Toileting {CHP DME ADLs:824361064} Feeding {CHP DME ADLs:988363989} [employer] {CHP DME ADLs:379789928} Med Delivery { MEERA MED Delivery:460310073} Wound Care Documentation and Therapy: Elimination: Continence: Bowel: {YES / NO:02536} Bladder: {YES / NO:} Urinary Catheter: {Urinary Catheter:487355884} Colostomy/Ileostomy/Ileal Conduit: {YES / NO:} Date of Last BM: Intake/Output Summary (Last 24 hours) at 11/03/2020 1151 Last data filed at 11/03/2020 0739 Gross per 24 hour Intake 840 ml Output 1500 ml Net -660 ml I/O last 3 completed shifts: In: 1040 [P.O.:1040] Out: 1874 [Urine:1874] Safety Concerns: { MEERA Safety Concerns:797176655} Impairments/Disabilities: { MEERA Impairments/Disabilities:579605631} Nutrition Therapy: Current Nutrition Therapy: { MEERA Diet List:938087442} Routes of Feeding: {[facility] DME Other Feedings:615370086} Liquids: {[facility] liquid thickness:44988} Daily Fluid Restriction: {[facility] Yes amt example:731133363} Last Modified Barium Swallow with Video (Video Swallowing Test): {Done Not Done Date:} Treatments at the Time of Hospital Discharge: Respiratory Treatments: Oxygen Therapy: {Therapy; copd oxygen:08802} Ventilator: {[facility] Vent List:380199436} Rehab Therapies: {THERAPEUTIC INTERVENTION:4441022316} Weight Bearing Status/Restrictions: {[facility] Weight Bearin} Other Medical Equipment (for information only, NOT a DME order): {EQUIPMENT:614592719} Other Treatments: Patient's personal belongings (please select all that are sent with patient): {[facility] D[facility] Belongings:157037376} RN SIGNATURE: {Esignature:000891959} CASE MANAGEMENT/SOCIAL WORK SECTION Inpatient Status Date: Readmission Risk Assessment Score: Readmission Risk Risk of Unplanned Readmission: 23 Discharging to Facility/ Agency Name: [facility] Address: [address] [place] [address] [facility] (if [facility] Name: Address: Dialysis Schedule: Phone: Fax: CURRENT COST OF BOTH ELIQUIS AND XARELTO IS $492. FAMILY WAS PROVIDED WITH FREE COPAY CARDS AND PATIENT ASSISTANCE APPLICATIONS. PER [facility] HOUSE PHARM[facility]Y XARELTO MAY BE PREFERRED ANTICOAGULATION MEDICATION AND COST MAY DECREASE AFTER DEDUCTIBLE IS MET. Dulce Peres rn, cm Beater Lead/Patient Escort signature: PHYSICIAN SECTION Prognosis: Good Condition at Discharge: Stable Rehab Potential (if transferring to Rehab): Good Recommended Labs or Other Treatments After Discharge: PT/OT, O2 supp to keep sats>92%, Eliquis 10 mg bid until 11/08 then 5 mg bid and continue Physician Certification: I certify the above information and transfer of Joseph Brown is necessary for the continuing treatment of the diagnosis listed and that he requires LTAC for less 30 days. Update Admission H&P: No change in H&P PHYSICIAN SIGNATURE: documented in this encounter Assessments Diagnosis Cough- Primary COVID-19 Diagnosis Pneumonia due to COVID-19 virus- Primary Elevated troponin Other abnormal blood chemistry ARDS (adult respiratory distress syndrome) (HCC) Other pulmonary insufficiency, not elsewhere classified, following trauma and surgery SVT (supraventricular tachycardia) (HCC) Other specified cardiac dysrhythmias Acute deep vein thrombosis (DVT) of both lower extremities (HCC) Essential hypertension Unspecified essential hypertension BPH without obstruction/lower urinary tract symptoms Hypertrophy of prostate without urinary obstruction and other lower urinary tract symptoms (LUTS) Diagnosis Supraventricular tachycardia (HCC) Other specified cardiac dysrhythmias SVT (supraventricular tachycardia) (HCC) Other specified cardiac dysrhythmias Diagnosis Pneumonia due to COVID-19 virus Hospital Course * Osei Chandler MD - 11/04/2020 2:32 PM EST Hospitalist Discharge Summary Joseph Brown : 1955 Admit date: 10/19/2020 Discharge date: 11/04/2020 Admitting Physician: Jerardo Green MD Primary Care Physician: LAQUITA DING DO Visit Status: Admission Code Status: Full Code Discharge Diagnoses: Active Problems: Pneumonia due to COVID-19 virus BPH without obstruction/lower urinary tract symptoms SVT (supraventricular tachycardia) (HCC) ARDS (adult respiratory distress syndrome) (HCC) Acute deep vein thrombosis (DVT) of both lower extremities (HCC) Essential hypertension Resolved Problems: * No resolved hospital problems. * Class 1 obesity Demand ischemia of myocardium Procedures: None Hospital Course: Improved. Joseph is a 64 y.o. male presents with worsening shortness of breath, nausea, vomiting, and fatigue. Pt diagnosed with COVID-19, 7 days ago. Has been fighting it at home and noticed that his home pulse ox would not stay above 90. Pt arrived to the ED above 90% but wastachycpneic. Labs in the ED were remarkable for anemia and elevated troponin. When seeing patient again later int the day, was more hypoxic with troponin elevation, new concern for PE on top of COVID-19. CTA showed no PE, but later the venous Dopplers of the lower extension showed deep vein thrombosis Denied chest pain, abdominal pain, nausea, vomiting, diarrhea, constipation, patient was admitted and treated in the Intensive Care Unit initially. After desaturating he was intubated and was on mechanical ventilation followed by on NIV, he received 5 day course of IV Remdisivir and Decadron, for bilateral lower extremity deep vein thrombosis anticoagulation has been given in the form of apixaban for the next due few days. Patient clinically improved and oxygen levels improved, though he wasmaintained on high flow, will be transferred to select hospital with monitoring of oxygen status. Consults: Critical care, ID stewardship Diet: Dietary Nutrition Supplements: Low Calorie High Protein Supplement DIET DENTAL SOFT; Activity: as tolerated Disposition: Patient discharged in stable condition to Home. Greater than 30 minutes spent discharging the patient and coming up with patient discharge plan. Vitals: BP 105/63 Pulse 69 Temp 97.4 F (36.3 C) (Temporal) Resp 18 Ht 6' (1.829 m) Wt 229lb 4.8 oz (104 kg) SpO2 94% BMI 31.10 kg/m Pulse Ox: SpO2 Av.1 % Min: 93 % Max: 97 % Supplemental O2: O2 Flow Rate (L/min): 5 L/min General appearance: No apparent distress, appears stated age and cooperative with exam Respiratory: Slight increased respiratory effort. Diminished AE throughout Cardiovascular: Regular rate and rhythm with normal S1/S2 without murmurs, rubs or gallops. Abdomen: Soft, non-tender, non-distended with normal bowel sounds. No rebound or guarding. Musculoskeletal: No clubbing, cyanosis bilaterally. Full range of motion without deformity. Bilateral lower ext swelling Skin: Skin color, texture, turgor normal. No rashes or lesions. Discharge Medications: Joseph Brown Home Medication Instructions LUPE:[id number] Printed on:11/04/20 3234 Medication Information apixaban (ELIQUIS) 5 MG TABS tablet 10 mg bid until 11/08 then 5 mg bid aspirin 81 MG chewable tablet Take 1 tablet by mouth daily atorvastatin (LIPITOR) 40 MG tablet Take 1 tablet by mouth nightly benzonatate (TESSALON PERLES) 100 MG capsule Take 1 capsule by mouth 3 times daily as needed for Cough metoprolol tartrate (LOPRESSOR) 50 MG tablet Take 1 tablet by mouth 2 times daily Recommended Follow-up: No follow-up provider specified. Complexity of Follow up: [] Moderate Complexity: follow up within 7-14 calendar days (43391) [x] Severe Complexity: follow up within 7 calendar days (21528) Follow up Testing, Pending results or Referrals at Transitional Care Visit: [x] yes [] No GENERAL ZONES GREEN ZONE: All Clear- Your Symptoms Are Under Control No recurrence of symptoms that led to hospitalization Able to do usual activities No fever No chest pain No shortness of breath This Means You Should: Continue taking your medications as prescribed Continue activity as tolerated Keep all doctor appointments YELLOW ZONE: Caution Recurrence of symptoms that led to hospitalization Fever of 100 degrees or higher Increased fatigue or restlessness Intolerant side-effects of medications Uneasy feeling or that something is wrong This Means You Should: Call your doctor for further instructions Either your PCP or specialist RED ZONE: Medical Alert Severe or unrelieved shortness of breath at rest Unrelieved chest pain Confusion or you can't think clearly This Means You Should Call 911 Immediately Instructions to MA: Please call patient on day after discharge (must document patient contacted within 2 business days of discharge). Follow up questions for MA: 1. Did you get medications filled and taking them as instructed from discharge? 2. Are you following your discharge instructions from your hospital stay? 3. Please confirm patient is scheduled for a follow up appointment within the above time frame. A total of more than 30 mins has been spent in discharging the patient. Signed: @ @ Division of Hospitalist Medicine Inpatient Medical Services 11/04/2020, 2:33 PM This report was created using the [employer] Speaking voice- activated system. Despiteprompt dictation and careful editorial review, there may be subtle contextual errors in this report, due to misrecognition of the spoken word. documented in this encounter History of Present Illness * Hossein Desai RN - 11/04/2020 1:20 PM EST Report given to [facility] * Linda Acosta OTA - 11/04/2020 11:47 AM EST Occupational Therapy Facility/Department: [facility] TELEMETRY Daily Treatment Note NAME: Joseph Brown : 1955 Date of Service: 11/04/2020 Discharge Recommendations: (facility based therapy) Assessment Assessment: Pt participated well in OT. Was able to wash, dry and comb his hair in set up in sitting. Donned shorts and stood with CGA. Pt did drop to 88% O2 after stand but recoverd to 93% after 2 min. Pt educated on energy conservation and breathing techniques during ADL's. Would benefit from continued OT to increase strength and endurance needed for ADL's and transfers. REQUIRES OT FOLLOW UP: Yes Safety Devices Safety Devices in place: Yes Type of devices: All fall risk precautions in place;Patient at risk for falls;Call light within reach;Nurse notified;Left in chair Patient Diagnosis(es): The primary encounter diagnosis was Pneumonia due to COVID-19 virus. A diagnosis of Elevated troponin was also pertinent to this visit. has a past medical history of Arthritis, SVT (supraventricular tachycardia) (HCC), and Syncope. has a past surgical history that includes Cholecystectomy and amputation. Restrictions Restrictions/Precautions Restrictions/Precautions: Fall Risk, Isolation, Contact Precautions, General Precautions(ICU tele, 6L O2, continuous O2 monitoring, nance, COVID+) Required Braces or Orthoses?: No Subjective General Chart Reviewed: Yes Family / Caregiver Present: Yes(daughter) Subjective Subjective: In chair. Nursing just put a shower cap on pt for him to wash his hair. Agreeable to therapy. General Comment Comments: RN states okay to see. D/c to LTAC in the PM. Vital Signs Patient Currently in Pain: Denies Objective ADL Grooming: Stand by assistance(Pt spent quite a bit of time on washing, drying and combing his hair in sitting. 7-8 min total for grooming.) LE Dressing: Contact guard assistance Additional Comments: Pt's o2 monitored with grooming and was 98% in sitting. After donning shorts and standing approx 30 sec to pull up, O2 dropped to 88% on 5 liters. Back up to 93% after 2 min. Cues needed for energy conservation and breathing techniques. Pt reports bathing last night. Balance Sitting Balance: Modified independent Standing Balance: Contact guard assistance Standing Balance Time: ~30 sec Activity: LB dressing Comment: No LOB but fatigues quickly. O2 dropped to 88% after stand. Transfers Sit to stand: Contact guard assistance;Minimal assistance Transfer Comments: Assist to hold chair. Pt uses back of legs to stabilize against chair and push to stand. Plan Plan Times per week: 3 visits Current Treatment Recommendations: Strengthening, ROM, Balance Training, Functional Mobility Training, Endurance Training, Home Management Training, Equipment Evaluation, Education, & procurement, Patient/Caregiver Education & Training, Self-Care / ADL, Safety Education & Training Plan Comment: Goals and POC made in collaboration with pt. Goals Short term goals Time Frame for Short term goals: 4 visits Short term goal 1: Pt will complete grooming/UB ADLs with SUPV. progressing Short term goal 2: Pt will complete LB ADLs with MIN A, met Short term goal 3: Pt will complete toileting including BSC transfer with MIN A NA Short term goal 4: Pt will complete functional transfers/standing at LRAD PRN with MIN A, progressing Short term goal 5: Pt will utilize energy conservation techs during ADL routine to maintain SpO2 >90%. progressing Patient Goals Patient goals : To increase indep in ADLs Therapy Time Individual Concurrent Group Co-treatment Time In 1055 Time Out 1114 Minutes 19 Timed Code Treatment Minutes: 19 Minutes(adl) ESTIVEN Mae * Linda Juarez SLP - 11/04/2020 11:45 AM EST Speech Language Pathology Facility/Department: [facility] TELEMETRY Dysphagia Treatment Note NAME: Joseph Brown : 1955 Allergies: No Known Allergies 5L nasal cannula Current Diet Level: Dental soft Compensatory Techniques []Chin tuck [x]Single bolus []Alternate bites/ sips [x] External Pacing []No straws []Small diameter straw []Liquid wash []Swallow x 2 with each bolus []Effortful Swallow [] [x]Position patient upright []Upright After Meal at least 30 minutes Pain:no complaints. S: Pt overtly looking very alert and doing overall better. Daughter was at bedside. O: Oropharyngeal strengthening, advanced diet trials, education. A: Pt alert and pleasant. Asking for advanced po diet so he can have sausage. Ordered training mealof Chicken Caesar salad with ranch. Instructed in smaller bite size for ease of oral preparation and ease of oral clearing. No overt deficits, however per pt and daughter pt has always had throat clearing during oral intake. He did demonstrate intermittent throat clear with progression of meal. O2 saturation was stable and no respiratory distress. Oral clearing was functional. Encourage slow rateand rest breaks as necessary. Pt does alternate liquid every few bites. NOTE: pt did blow his nose and blew out small to moderate sized dry, scabby, bloody mucous followedby epistaxis. RN notified and pt provided with moist towel/ice. [] Goal met [x] Progressing as expected [] Progressing slower than expected [] Medical status inhibits participation [] Goals not addressed this session [] Goals revised this session [] Unable to show any progress towards functional goals [] Progress towards functional goal is gradual / fair P: Advance to regular diet. Total Minutes: 29 minutes Time Session Ended: 1145 Linda Juarez M.A.CCC/GAUGE OPERATOR Speech-Language Pathologist * Hossein Desai RN - 11/04/2020 11:28 AM EST Report called to [facility] and spoke with sleep technologist. Nurse was unable to take report and will call meback. Continuing to monitor patient. * Hosesin Desai RN - 11/04/2020 11:22 AM EST Pt being DC from hospital to [facility] in stable conditon. Primary aware of patient status of being on5 lt NC. Okay with Dc at this time. DC paperwork printed and placed in transport packet. IV removed. Tele returned. Vitals stable. Awaiting transport home at this time. Continuing to monitor patient. * Ruchi Rogel PTA - 11/04/2020 10:10 AM EST Physical Therapy Facility/Department: [facility] 2E TELEMETRY Daily Treatment Note NAME: Joseph Brown : 1955 Date of Service: 11/04/2020 Discharge Recommendations: (Facility Based Therapy) Assessment Assessment: Pt demonstrated an improvement in functional mobility with increased ease and less assist needed to complete transitions. O2 sats continued to drop but not as severely. Pt tolerated liited activity with increased rest times. Pt will benefit from contiued therapy to further improve functional mobility and strength. PT Education: Goals;PT Role;Plan of Care;General Safety;Transfer Training;Energy Conservation;Adaptive Device Training;Functional Mobility Training Activity Tolerance Activity Tolerance: Patient limited by fatigue;Patient limited by endurance Patient Diagnosis(es): The primary encounter diagnosis was Pneumonia due to COVID-19 virus. A diagnosis of Elevated troponin was also pertinent to this visit. has a past medical history of Arthritis, SVT (supraventricular tachycardia) (HCC), and Syncope. has a past surgical history that includes Cholecystectomy and amputation. Restrictions Restrictions/Precautions Restrictions/Precautions: Fall Risk, Isolation, Contact Precautions, General Precautions(ICU tele, 6L O2, continuous O2 monitoring, nance, COVID+) Required Braces or Orthoses?: No Subjective General Chart Reviewed: Yes Family / Caregiver Present: No Subjective Subjective: Pt is agreeable to therapy. Pt wanting to get up secondary to tailbone hurting Pain Screening Patient Currently in Pain: Yes(tailbone but did not rate) Objective Bed mobility Supine to Sit: Stand by assistance(of 1 for safety with use of bedrail. Minimal dizziness that cleared with sitting. O2 sats remained 98% on 5L) Transfers Sit to Stand: Minimal Assistance Stand to sit: Minimal Assistance Stand Pivot Transfers: Minimal Assistance Comment: of 1 for support and safety with cueing for proper hand placement and poor follow thru when sitting. Pt Stood a total of 3 times. Pivoted with walker with first attempt using FWW for supportand MIN A for safety with cueing to stand erect. Pt stood with walker next 2 times and stepped in place x 5 steps before needing to sit. O2 sats dropped to 82% at lowest but returned to 96% within 2-3 minutes. Pt's last stand only dropped to 92 %. Goals Short term goals Time Frame for Short term goals: 6 visits Short term goal 1: Pt will complete 1-2 sets/10 reps of LE exercises to improve LE strength(not met) Short term goal 2: Pt will complete supine<->sit at CGA to improve bed mobility(met) Short term goal 3: Pt will complete sit<->stand with FWW at CGA in preparation for mobility(partially met) Short term goal 4: Pt will complete functional transfers at min A with stable vitals to improve functional mobility(partially met) Short term goal 5: Pt will stand for at least 3 minutes with CGA to improve standing balance/tolerance(not met) Patient Goals Patient goals : pt did not state Plan Plan Times per week: 5 visits Times per day: Daily Current Treatment Recommendations: (Cont ther ex and functional training) Plan Comment: Goals and/or treatment plan were established in collaboration with patient Safety Devices Type of devices: All fall risk precautions in place, Gait belt, Patient at risk for falls, Left in chair, Call light within reach, Nurse notified Therapy Time Individual Concurrent Group Co-treatment Time In 0920 Time Out 0945 Minutes 25 Timed Code Treatment Minutes: 23 Minutes(2 ther act) Ruchi Rogel PTA * Jenny Rees APRN - [place] - 11/04/2020 8:49 AM EST [facility], Pulmonary Critical Care and Sleep Medicine [address] [place] [id number] Patient - Joseph Brown, Age - 64 y.o. - 1955 Room Number - [id number] Consulting - Jerardo Green MD Primary Care Physician - LAQUITA Gale DING, [id number] Date of Admission - 10/19/2020 8:50 AM Hospital Day - 16 Subjective/Events Past 24 hours/ROS Patient awake sitting up in bed. States he was able to get some rest last night. On 5 liters NC. Nonew respiratory concerns at this time. All other systems reviewed Objective Vitals Vitals: BP 101/62 Pulse 72 Temp 97.3 F (36.3 C) (Temporal) Resp 18 Ht 6' (1.829 m) Wt 229lb 4.8 oz (104 kg) SpO2 96% BMI 31.10 kg/m Pulse Ox: SpO2 Av.2 % Min: 93 % Max: 97 % Supplemental O2: O2 Flow Rate (L/min): 5 L/min I/O 24HR INTAKE/OUTPUT: Intake/Output Summary (Last 24 hours) at 11/04/2020 0849 Last data filed at 11/04/2020 0737 Gross per 24 hour Intake 560 ml Output 1025 ml Net -465 ml Patient Vitals for the past 96 hrs (Last 3 readings): Weight 11/04/20 0631 229 lb 4.8 oz (104 kg) Exam General Appearance Awake, alert, oriented, in no acute distress. On 5 liters NC. Appears weak. HEENT - normocephalic, atraumatic, sclarea is anicteric, conjunctiva is pink, nasal mucosa is normal, no congestion, external ears are intact. Neck - Supple, trachea midline, full range of motion. Lymph nodes- no cervical, clavicular, or posterior auricular lymphadenopathy Lungs Normal effort, no wheezing or crackles noted. diminished in the bases. Cardiovascular - Heart sounds are normal. Regular rate and rhythm, without murmurs, rubs or gallops Abdomen - Soft, nontender, nondistended, no masses or organomegaly Neurologic - Awake, alert, follows commands. Cranial nerves II-XII are intact, There are no focal motor deficits grossly Skin - No bruising or bleeding, normal turgor, no rashes or lesions Extremities - No clubbing, cyanosis, +1 BLE edema Peripheral pulses- present bilaterally and symmetric Psychiatric: appropriate, oriented to person, place and time/date Meds metoprolol tartrate 50 mg Oral BID ipratropium-albuterol 1 ampule Inhalation BID QUEtiapine 25 mg Oral Nightly apixaban 10 mg Oral BID Followed by [START ON 11/09/2020] apixaban 5 mg Oral BID pantoprazole 40 mg Oral QAM AC sodium chloride flush 10 mL Intracatheter Q8H bisacodyl 10 mg Rectal BID polyethylene glycol 17 g Oral Daily sennosides-docusate sodium 2 tablet Oral BID sodium chloride flush 10 mL Intravenous 2 times per day aspirin 81 mg Oral Daily atorvastatin 40 mg Oral Nightly Vitamin D 2,000 Units Oral Daily melatonin, sodium chloride flush, phenol, sodium chloride flush, promethazine OR ondansetron, sodium chloride, ipratropium-albuterol, acetaminophen OR acetaminophen Labs CBC Recent Labs 11/04/20 0510 WBC 11.6* HGB 10.0* HCT 30.8* MCV 92.4 PLT 439 BMP: Recent Labs 11/04/20 0510 NA 140 K 3.8 CL 110* CO2 24 BUN 32* CREATININE 0.64 GLUCOSE 119* MG 2.3 PHOS 4.3 IONCA 4.10* ABG: Recent Labs 11/03/20 0342 11/04/20 0510 PH 7.51* 7.48* No results found for: IFIO2, MODE, SETTIDVOL, SETPEEP LIVER PROFILE Recent Labs 11/04/20 0510 AST 55* ALT 200* BILIDIR 0.0 BILITOT 0.7 ALKPHOS 73 INR Lab Results Component Value Date INR 1.0 08/06/2017 PROTIME 10.4 08/06/2017 PTT No results found for: APTT Cultures SARS-CoV-2: Positive Respiratory culture: + Streptococcus pneumoniae Active Hospital Problem List Active Hospital Problems Diagnosis Date Noted ARDS (adult respiratory distress syndrome) (HCC) [J80] Pneumonia due to COVID-19 virus [U07.1, J12.82] 10/19/2020 Assessment and Plan Acute hypoxic respiratory failure d/t ARDS secondary to COVID-19 pneumonia and Strep pneumonia - s/p NIV and mechanical intubation. Extubated 10/31/20 - Completed Remdesivir as well as Ceftriaxone course. - Tapering off Decadron - BD therapy - On 5 liters NC. Wean FiO2 as patient tolerates. Keep SpO2 92%. BLE DVT's - Venous US to lower extremities showed multiple DVT's in bilateral lower extremities - CTA chest was negative for pulmonary embolism - On Eliquis Indeterminate troponin on admission likely r/t demand ischemia, small pericardial effusion - Cardiology performed bedside echocardiogram in ICU. Possible small pericardial effusion. RV and LV function both looked normal per report. Troponin abnormalities r/t coronavirus pneumonia and demand. Dysphagia - Diet per ST recommendations Hx Hypertension, hyperlipidemia - Lopressor, Atorvastatin Remote Hx of Tobacco abuse - Patient states he smoked for around from age [age]'s. 2PPD at that time. Obesity (BMI 31.10), ? Underlying RODRIGO - Consider outpatient sleep study GI/ DVT prophylaxis -PPI -Eliquis Advance Directive: Full Code Discharge planning: Planning for discharge to LTAC. Okay to d/c from pulmonary standpoint. I have discussed the patient's case and plan of care with my collaborating physician Dr. Francois Case discussed with nurse and patient Questions and concerns addressed. Associated attestation - Carolina Francois MD - 11/04/2020 11:17 AM EST I have personally performed a face to face diagnostic evaluation on this patient. Labs, imaging studies and electronic medical record have been reviewed by me. This note documented by the BETSEY reflects my history, exam and medical decision making as discussed with the BETSEY . I have reviewed and agreewith the care plan. Changes were made in the orders as necessary My history, exam, assessment and plan are as follows. Assessment Vitals: BP 105/63 Pulse 69 Temp 97.4 F (36.3 C) (Temporal) Resp 18 Ht 6' (1.829 m) Wt 229lb 4.8 oz (104 kg) SpO2 94% BMI 31.10 kg/m Pulse Ox: SpO2 Av.2 % Min: 93 % Max: 97 % Supplemental O2: O2 Flow Rate (L/min): 5 L/min General appearance: No apparent distress, appears stated age and cooperative with exam Respiratory: Normal effort, Poor air entry bilaterally, no obvious wheezing or crackles, diminishedbreath sounds at the bases Cardiovascular: Heart sounds are normal. Regular rate and rhythm Abdomen - Soft, nontender, nondistended, no masses or organomegaly Extremities - No clubbing, cyanosis, edema Dx/ Plan of care Acute respiratory failure with hypoxia/RDS-says post mechanical ventilation, now on 5 L nasal cannula oxygen-wean supplemental oxygen-being considered for transfer to acute long-term care patient of benefit from both physical therapy/occupational therapy and pulmonary rehabilitation COVID-19 pneumonia/pneumonitis, completed standard therapy Streptococcal pneumonia, completed Rocephin Bilateral deep vein thromboses, continue Eliquis Obesity/? RODRIGO-Out patient PSG - post discharge Oxygen supplement to maintain SpO2 92%. Wean FiO2 as patient tolerates Continue current BD therapy Steroids. * Hossein Deasi RN - 11/03/2020 2:18 PM EST Pt arrived from in stable condition. Alert and oriented x4. Vitals stable. Denies pain at this time. Denies CP and SOB. Pt on 5 lt NC o2. Pt complain of being tired. Family at bedside. Continuing to monitor patient at this time. * Mita Sanchez RN - 11/03/2020 1:58 PM EST To 259, via bed and 5 liter NC. Daughter at the bedside * Mita Sanchez RN - 11/03/2020 1:23 PM EST Report called to Hossein on 2 east * Jenny Rees APRN - [place] - 11/03/2020 10:56 AM EST [facility], Pulmonary Critical Care and Sleep Medicine [address] [place] [id number] Patient - Joseph Brown, Age - 64 y.o. - 1955 Room Number - [id number] Consulting - Jerardo Green MD Primary Care Physician - LAQUITA DING DO [facility] # - [id number] Date of Admission - 10/19/2020 8:50 AM Hospital Day - 15 Subjective/Events Past 24 hours/ROS Patient awake sitting up in bed. Tired this afternoon. States he didn't get much sleep the last fewnights. Denies any chest pain or shortness of breath. Eating his lunch with no difficulty. Daughterpresent at bedside. On 5 liters NC. Does not wear oxygen at home. No new overnight concerns. Patient presented to ED on 10/19/20 with chief complaint of shortness of breath, nausea, vomiting andfatigue. He was diagnosed with COVID-19 7 days prior to admission. He was hypoxic on admission withSpO2 90% on room air along with increased work of breathing. He required increased FiO2 during his admission and was ultimately transferred to ICU on 10/20/20 for NIV. Patient was emergently intubated on 10/24/20 and extubated on 10/31/20. + Strep pneumonia respiratory culture. All other systems reviewed Objective Vitals Vitals: BP 100/63 Pulse 77 Temp 97.9 F (36.6 C) (Temporal) Resp 18 Ht 6' (1.829 m) Wt 240lb 12.8 oz (109.2 kg) SpO2 93% BMI 32.66 kg/m Pulse Ox: SpO2 Av.5 % Min: 91 % Max: 97 % Supplemental O2: O2 Flow Rate (L/min): 5 L/min I/O 24HR INTAKE/OUTPUT: Intake/Output Summary (Last 24 hours) at 11/03/2020 1056 Last data filed at 11/03/2020 0739 Gross per 24 hour Intake 840 ml Output 1500 ml Net -660 ml No data found. Exam General Appearance Awake, alert, oriented, in no acute distress. On 5 liters NC. HEENT - normocephalic, atraumatic, sclarea is anicteric, conjunctiva is pink, nasal mucosa is normal, no congestion, external ears are intact. Neck - Supple, trachea midline, full range of motion. Lymph nodes- no cervical, clavicular, or posterior auricular lymphadenopathy Lungs Normal effort, few rales in the bases bilaterally. Cardiovascular - Heart sounds are normal. Regular rate and rhythm, without murmurs, rubs or gallops Abdomen - Soft, nontender, nondistended, no masses or organomegaly Neurologic - Awake, alert, follows commands. Cranial nerves II-XII are intact, There are no focal motor deficits grossly Skin - No bruising or bleeding, normal turgor, no rashes or lesions Extremities - No clubbing, cyanosis, edema Peripheral pulses- present bilaterally and symmetric Psychiatric: appropriate, oriented to person, place and time/date Meds ipratropium-albuterol 1 ampule Inhalation BID dexamethasone 4 mg Oral Daily QUEtiapine 25 mg Oral Nightly apixaban 10 mg Oral BID Followed by [START ON 11/09/2020] apixaban 5 mg Oral BID pantoprazole 40 mg Oral QAM AC metoprolol tartrate 50 mg Per NG tube BID sodium chloride flush 10 mL Intracatheter Q8H bisacodyl 10 mg Rectal BID polyethylene glycol 17 g Oral Daily sennosides-docusate sodium 2 tablet Oral BID sodium chloride flush 10 mL Intravenous 2 times per day aspirin 81 mg Oral Daily atorvastatin 40 mg Oral Nightly Vitamin D 2,000 Units Oral Daily sodium chloride flush, phenol, sodium chloride flush, promethazine OR ondansetron, sodium chloride, ipratropium-albuterol, acetaminophen OR acetaminophen Labs CBC Recent Labs 11/03/20 0342 WBC 9.5 HGB 11.0* HCT 33.8* MCV 92.8 PLT 305 BMP: Recent Labs 11/03/20 0342 NA 143 K 3.8 CL 113* CO2 26 BUN 42* CREATININE 0.62 GLUCOSE 139* MG 2.5* PHOS 3.9 IONCA 4.50 ABG: Recent Labs 11/02/20 0318 11/03/20 0342 PH 7.45 7.51* No results found for: IFIO2, MODE, SETTIDVOL, SETPEEP LIVER PROFILE Recent Labs 11/02/20 031 AST 101* ALT 221* BILITOT 0.7 ALKPHOS 71 INR Lab Results Component Value Date INR 1.0 08/06/2017 PROTIME 10.4 08/06/2017 PTT No results found for: APTT Cultures ? SARS-CoV-2: Positive ? Respiratory culture: + Streptococcus pneumoniae Radiology CXR 10/31/20 Reviewed (See actual reports for details) Active Hospital Problem List Active Hospital Problems Diagnosis Date Noted ARDS (adult respiratory distress syndrome) ([facility]) [J80] Pneumonia due to COVID-19 virus [U07.1, J12.82] 10/19/2020 Assessment and Plan Acute hypoxic respiratory failure d/t ARDS secondary to COVID-19 pneumonia and Strep pneumonia - s/p NIV and mechanical intubation. Extubated 10/31/20 - Completed Remdesivir course - Completed Ceftriaxone course - Tapering off Decadron - Continue bronchodilators - On 5 liters NC. Wean FiO2 as patient tolerates. Keep SpO2 92%. Needs home O2 evaluation prior to discharge. BLE DVT's - Venous US to lower extremities showed multiple DVT's in bilateral lower extremities - CTA chest was negative for pulmonary embolism - On Eliquis Indeterminate troponin on admission likely r/t demand ischemia, small pericardial effusion - Cardiology performed bedside echocardiogram in ICU. Possible small pericardial effusion. RV and LV function both looked normal per report. Troponin abnormalities r/t coronavirus pneumonia and demand. Dysphagia - Diet per ST recommendations Hx Hypertension, hyperlipidemia - Lopressor, Atorvastatin Remote Hx of Tobacco abuse - Patient states he smoked for around from age [age]'s. 2PPD at that time. GI/ DVT prophylaxis -PPI -Eliquis Advance Directive: Full Code Discharge planning: TBD. PT/OT recommending facility based therapy. Planning for possible dischargeto LTAC. I have discussed the patient's case and plan of care with my collaborating physician Dr. Francois Case discussed with nurse and patient Questions and concerns addressed. Associated attestation - Carolina Francois MD - 11/03/2020 1:11 PM EST I have personally performed a face to face diagnostic evaluation on this patient. Labs, imaging studies and electronic medical record have been reviewed by me. This note documented by the BETSEY reflects my history, exam and medical decision making as discussed with the BETSEY . I have reviewed and agreewith the care plan. Changes were made in the orders as necessary My history, exam, assessment and plan are as follows. 64-year-old obese male, recent Intensive Care Unit admission needing mechanical ventilation for COVID-19 related respiratory failure, now on 5 L nasal cannula oxygen Assessment Vitals: BP 105/64 Pulse 71 Temp 97.6 F (36.4 C) (Temporal) Resp 18 Ht 6' (1.829 m) Wt 240lb 12.8 oz (109.2 kg) SpO2 94% BMI 32.66 kg/m Pulse Ox: SpO2 Av.3 % Min: 91 % Max: 97 % Supplemental O2: O2 Flow Rate (L/min): 5 L/min General appearance: No apparent distress, appears stated age and cooperative with exam Respiratory: mild tachypnea, Poor air entry bilaterally, no obvious wheezing or crackles, diminished breath sounds at the bases Cardiovascular: Heart sounds are normal. Regular rate and rhythm Abdomen - Soft, nontender, nondistended, no masses or organomegaly Extremities - No clubbing, cyanosis, edema Dx/ Plan of care Acute respiratory failure with hypoxia/RDS-says post mechanical ventilation, now on 5 L nasal cannula oxygen COVID-19 pneumonia/pneumonitis, completed standard therapy Streptococcal pneumonia, completed Rocephin Bilateral deep vein thromboses, continue Eliquis Obesity/? RODRIGO-Out patient PSG Oxygen supplement to maintain SpO2 92%. Wean FiO2 as patient tolerates Continue current BD therapy * Mita Sanchez RN - 11/03/2020 10:20 AM EST Arrived to 157 form ICU * Osei Chandler MD - 11/03/2020 10:16 AM EST Throughout the encounter I wore and N95 mask and face shield Hospitalist Progress Note 11/03/2020 10:16 AM [phone]: Please page [place] @ [phone] for patient care issues. [phone]: Please page [facility] night Hospitalist for any issues. Subjective: Admit Date: 10/19/2020 PCP: LAQUITA DING, Transferred out of Intensive Care Unit yesterday in an improved condition, breathing better. Denies chest pain, cough, abdominal pain, nausea, vomiting, diarrhea, constipation, fevers, or chills. Dietary Nutrition Supplements: Low Calorie High Protein Supplement DIET DENTAL SOFT; No data found. Medications: ipratropium-albuterol 1 ampule Inhalation BID dexamethasone 4 mg Oral Daily QUEtiapine 25 mg Oral Nightly apixaban 10 mg Oral BID Followed by [START ON 11/09/2020] apixaban 5 mg Oral BID pantoprazole 40 mg Oral QAM AC metoprolol tartrate 50 mg Per NG tube BID sodium chloride flush 10 mL Intracatheter Q8H bisacodyl 10 mg Rectal BID polyethylene glycol 17 g Oral Daily sennosides-docusate sodium 2 tablet Oral BID sodium chloride flush 10 mL Intravenous 2 times per day aspirin 81 mg Oral Daily atorvastatin 40 mg Oral Nightly Vitamin D 2,000 Units Oral Daily LABS: CBC: Recent Labs 11/01/2025711/02/2031711/03/20341 WBC 8.5 8.2 9.5 RBC 3.39* 3.39* 3.64* HGB 10.4* 10.3* 11.0* HCT 31.0* 30.8* 33.8* MCV 91.5 90.8 92.8 RDW 14.5 14.5 14.6* PLT 321 352 305 BMP: Recent Labs 11/01/2025711/02/2031711/03/20341 NA 140 145 143 K 3.9 3.8 3.8 CL 107 112* 113* CO2 30 29 26 BUN 36* 40* 42* CREATININE 0.65 0.63 0.62 GLUCOSE 130* 138* 139* CALCIUM 8.3* 8.4 8.8 ANIONGAP 3 4 4 LIVER PROFILE: Recent Labs 11/01/2025711/02/20317 AST 111* 101* ALT 172* 221* BILITOT 0.7 0.7 ALKPHOS 75 71 LABALBU 2.8* 2.8* PROT 6.2* 6.2* PT/INR: No results for input(s): PROTIME, INR in the last 72 hours. CARDIAC ENZYMES: No results for input(s): TROPONINI in the last 72 hours. Procalcitonin: Lab Results Component Value Date PROCAL 0.17 10/27/2020 Objective: Vitals: BP 100/63 Pulse 77 Temp 97.9 F (36.6 C) (Temporal) Resp 18 Ht 6' (1.829 m) Wt 240lb 12.8 oz (109.2 kg) SpO2 93% BMI 32.66 kg/m Pulse Ox: SpO2 Av.5 % Min: 91 % Max: 97 % Supplemental O2: O2 Flow Rate (L/min): 5 L/min General appearance: Appears weak , No apparent distress, appears stated age and cooperative with exam HEENT: Normal cephalic, atraumatic without obvious deformity. Pupils equal, round, and reactive to light. Extra ocular muscles intact. Conjunctivae/corneas clear. Neck: Supple, with full range of motion. No jugular venous distention. Trachea midline. No lymphadenopathy. Respiratory: Increased respiratory effort. Diminished air entry anteriorly. Cardiovascular: Regular rate and rhythm with normal S1/S2 without murmurs, rubs or gallops. Abdomen: Soft, non-tender, non-distended with normal bowel sounds. No rebound or guarding. Musculoskeletal: No clubbing, cyanosis bilaterally. Full range of motion without deformity. 1+ pitting edema Skin: Bilateral skin changes Neurologic: Neurovascularly intact without any focal sensory/motor deficits. Cranial nerves: II-XIIintact, grossly non-focal. Assessment Acute hypoxic respiratory failure pneumonia due to Covid 19 virus and strep pneumonia simple sepsis due to above acute metabolic encephalopathy, improved dysphagia, improved acute deep vein thrombosis of right leg Hx of SVT Past Medical History: Diagnosis Date Arthritis SVT (supraventricular tachycardia) (HCC) Syncope Plan : Telemetry, finished remdisivir, O2 supp, Pulmonology following Follow speech therapist recs for diet All test and lab results reviewed Consult notes reviewed Am labs, replace lytes prn PT/OT -DVT prophylaxis: [] Lovenox [] Heparin [] SCDs [x] Encourage ambulation [x] Already on Anticoagulation Advance Directive: Full Code Discharge planning: TBD OSEI CHANDLER MD, Division of Hospitalist Medicine Inpatient Medical Services This report was created using the [employer] Speaking voice- activated system. Despiteprompt dictation and careful editorial review, there may be subtle contextual errors in this report, due to misrecognition of the spoken word. * Malorie Cho RD, LD - 11/02/2020 3:45 PM EST Comprehensive Nutrition Assessment Type and Reason for Visit: Reassess(pt extubated 10/31- to transfer to floor today) Nutrition Recommendations/Plan: 1)suggest to continue pureed diet as tolerated per GAUGE OPERATOR - speech now recommending dental soft - today 2)per MNT protocol, will Initiate Ensure hi protein tid at meals( 160 brett, 16 gm Pro/serving) 3)Please document PO intakes- diet and ons- consistently in the flowsheet to better assess intake adequacy. 4) monitor Blood glucose levels - for ? Carb controlled diet? 5)Monitor labs, status, intakes, wts to reassess. Follow up at least weekly Nutrition Assessment: 64 yo male with covid and strep infection., intubated 10/24- extubated 10/31 . seen by speech-pureed diet ordered- little po on pureed . pt agrees to Ensure hi pro at meals- will send Malnutrition Assessment: Malnutrition Status: Insufficient data Context: Acute Illness Findings of the 6 clinical characteristics of malnutrition: Energy Intake: 7 - 50% or less of estimated energy requirements for 5 or more days Weight Loss: Unable to assess Body Fat Loss: Unable to assess Muscle Mass Loss: Unable to assess Fluid Accumulation: No significant fluid accumulation Engineering Secretary Strength: Not Performed Estimated Daily Nutrient Needs: Energy (kcal): 1200- 1525; Weight Used for Energy Requirements: Current Protein (g): 81-115; Weight Used for Protein Requirements: Dinosaur(1-1.4) Fluid (ml/day): per md; Method Used for Fluid Requirements: 1 ml/kcal Nutrition Related Findings: 11/02 nausea, 11/01 bm, mendoza edema,neg 5.3 liters,weak voice, glucose 138,bun 40, phos 4.6, alb 2.8 Wounds: Multiple(back and groin rash -db 18) Current Nutrition Therapies: Dietary Nutrition Supplements: Low Calorie High Protein Supplement DIET DENTAL SOFT; Anthropometric Measures: Height: 6' (182.9 cm) Current Body Weight: 240 lb 12.8 oz (109.2 kg)(10/29) Admission Body Weight: 240 lb (108.9 kg)(stated weight) Usual Body Weight: 240 lb (108.9 kg) Dinosaur Body Weight: 178 lbs; % Dinosaur Body Weight 135.3 % BMI: 32.7 Adjusted Body Weight: ; No Adjustment Adjusted BMI: BMI Categories: Obese Class 1 (BMI 30.0-34.9) Nutrition Diagnosis: Inadequate oral intake related to catabolic illness, other (comment), biting/chewing (masticatory) difficulty, swallowing difficulty(covid- weak) as evidenced by intake 0-25%, other (comment)(chain hoist operator recommendations) Altered nutrition-related lab values related to cardiac dysfunction, other (comment)(steroids , vitd defic) as evidenced by other (comment), lab values(vit d replacement) Nutrition Interventions: Food and/or Nutrient Delivery: Continue Current Diet, Start Oral Nutrition Supplement Nutrition Education/Counseling: No recommendation at this time Coordination of Nutrition Care: Continue to monitor while inpatient, Feeding Assistance/EnvironmentChange, Speech Therapy Goals: patient will receive,tolerate adequate nutrition with safe swallow- consume > 50% of meals, 100%ons - labs trend toward baseline Nutrition Monitoring and Evaluation: Behavioral-Environmental Outcomes: None Identified Food/Nutrient Intake Outcomes: None Identified Physical Signs/Symptoms Outcomes: Biochemical Data, Chewing or Swallowing, GI Status, Fluid Status or Edema, Hemodynamic Status, Nutrition Focused Physical Findings, Skin, Other (Comment) Discharge Planning: Too soon to determine Contact: [phone] * Linda Juarez, JODY - 11/02/2020 3:38 PM EST Speech Language Pathology Facility/Department: [facility] ICU Dysphagia Treatment Note NAME: Joseph Brown : 1955 Allergies: No Known Allergies 5L nasal cannula Current Diet Level: Puree diet (sips and chips were recommended, pt was on puree) Compensatory Techniques []Chin tuck [x]Single bolus []Alternate bites/ sips [x] External Pacing []No straws []Small diameter straw []Liquid wash []Swallow x 2 with each bolus []Effortful Swallow [] [x]Position patient upright []Upright After Meal at least 30 minutes Pain:No complaints of pain. S: Pt was alert and sitting up in cardiac chair. O: Oropharyngeal strengthening, respiratory strengthening, advanced diet trials. A: Voice remains dysphonic, breathy. Stronger than yesterday. Pt was agreeable to exercises. Completed shoulder shrugs x10; chin push down x10ish (no c/o fatigue), vocal adduction with sustained /a/ with gentle push x10. Improved vocal quality with gentle pushing. Able to count/produce 3 syllables without loss of voice. Trial of kit rita sanjuana soilatai. Pt is taking via single small bites independently. Taking sips via straw and cup with intermittent throat clear. He appears to have increased throat clearing when he attempted serial drink or large volume. Improved overt function with single sips. Recommend dental soft diet. Single bites, single drinks. D/W RN [] Goal met [] Progressing as expected [] Progressing slower than expected [] Medical status inhibits participation [] Goals not addressed this session [] Goals revised this session [] Unable to show any progress towards functional goals [] Progress towards functional goal is gradual / fair P: Continue dysphagia POC. Total Minutes: 23 minutes Time out: 1525 Linda Juarez M.A.CCC/GAUGE OPERATOR Speech-Language Pathologist * Janine Bonenr, PT - 11/02/2020 3:24 PM EST Physical Therapy Facility/Department: [facility] ICU Initial Assessment NAME: Joseph Brown : 1955 Date of Service: 11/02/2020 Discharge Recommendations: (Facility Based Therapy) PT Equipment Recommendations Equipment Needed: (TBD) Assessment Body structures, Functions, Activity limitations: Decreased functional mobility ;Decreased strength;Decreased safe awareness;Decreased endurance;Decreased balance Assessment: Pt presents with decreased functional mobility, requiring use of FWW and MOD/MAX A for transfers. Pt has decreased standing balance/tolerance and safety awareness, placing pt at an increased risk of falls. Pt desaturates with minimal exertion; but is able to recover after several minutes of pursed lip breathing. Pt is expected to benefit from skilled therapy to address functional mobility, strength, balance, and safety awareness Prognosis: Good Decision Making: Medium Complexity History: Pt admitted with SOB, nausea, COVID +; intubated 11/03-10/31 Exam: AM-PAC Clinical Presentation: Pt admitted with SOB, nausea, COVID +; intubated 11/03- 10/31. Pt has a PMH as listed below that contributes to clinical presentation. At baseline, pt is independent without device. Currently pt is unsafe to return home d/t weakness and increased risk of falls PT Education: Goals;PT Role;Plan of Care;General Safety REQUIRES PT FOLLOW UP: Yes Activity Tolerance Activity Tolerance: Patient limited by fatigue;Patient limited by endurance Patient Diagnosis(es): The primary encounter diagnosis was Pneumonia due to COVID-19 virus. A diagnosis of Elevated troponin was also pertinent to this visit. has a past medical history of Arthritis, SVT (supraventricular tachycardia) (HCC), and Syncope. has a past surgical history that includes Cholecystectomy and amputation. Restrictions Restrictions/Precautions Restrictions/Precautions: Fall Risk, Isolation, Contact Precautions, General Precautions(ICU tele, 6L O2, continuous O2 monitoring, nance, COVID+) Required Braces or Orthoses?: No Vision/Hearing Vision: Within Functional Limits Vision Exceptions: Wears glasses at all times Hearing: Within functional limits Subjective General Chart Reviewed: Yes Patient assessed for rehabilitation services?: Yes Subjective Subjective: Pt is agreeable to therapy Pain Screening Patient Currently in Pain: Denies Social/Functional History Social/Functional History Lives With: Spouse Type of Home: House Home Layout: One level Home Access: Stairs to enter with rails Entrance Stairs - Number of Steps: 3 with rails on one side Bathroom Shower/Tub: Walk-in shower, Tub/Shower unit(both walk in shower and walk in tub) Bathroom Toilet: Handicap height Bathroom Equipment: Shower chair Bathroom Accessibility: Accessible Home Equipment: (denies) Receives Help From: Family ADL Assistance: Independent Homemaking Assistance: Independent Homemaking Responsibilities: Yes Ambulation Assistance: Independent(no AD) Transfer Assistance: Independent Active Irrigation Tax Assessor Collector: Yes Mode of Transportation: Truck, SUV Education: high school grad 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 [employer] Leisure & Hobbies: na IADL Comments: na Additional Comments: [facility] [place] Cognition Cognition Overall Cognitive Status: WF Objective Observation/Palpation Observation: all lines/tubes intact AROM RLE (degrees) RLE AROM: WFL AROM LLE (degrees) LLE AROM : WFL Strength RLE Comment: observed functionally, grossly deconditioned Strength LLE Comment: observed functionally, grossly deconditioned Sensation Overall Sensation Status: WFL Bed mobility Supine to Sit: Minimal assistance Sit to Supine: Unable to assess(pt sitting in chair post session) Comment: increased time to complete, denies dizziness at EOB; however SpO2 dropped to ~77% on 5L, cueing for pursed lip breathing with extending time to recover to 90%; MD in room and aware Transfers Sit to Stand: Moderate Assistance(to FWW) Stand to sit: Moderate Assistance Comment: cueing for hand placement, denies dizziness; pt with retrograde lean upon standing Ambulation Ambulation?: Yes Ambulation 1 Surface: level tile Device: Rolling Walker Other Apparatus: O2 Assistance: Maximum assistance Quality of Gait: pt demonstrates step to pattern, flexed posture, decreased B step length, unsteadiness with occasional posterior lean Distance: 3' to chair Comments: SpO2 dropped to ~75% following minimal exertion, cueing for pursed lip breathing with pt recovering to ~90% within several minutes; pt fatigued with minimal exertion Stairs/Curb Stairs?: No Balance Posture: Fair Sitting - Static: Fair;+ Sitting - Dynamic: Fair Standing - Static: Poor Standing - Dynamic: Poor;- Plan Plan Times per week: 6 visits Times per day: Daily Current Treatment Recommendations: Strengthening, Balance Training, Functional Mobility Training, Transfer Training, Endurance Training, Neuromuscular Re- education, Home Exercise Program, Safety Education & Training, Patient/Caregiver Education & Training, Equipment Evaluation, Education, & procurement, Positioning Plan Comment: Goals and/or treatment plan were established in collaboration with patient Safety Devices Type of devices: All fall risk precautions in place, Call light within reach, Gait belt, Patient atrisk for falls, Left in chair, Nurse notified OutComes Score [facility] Mobility Inpatient How much difficulty turning over in bed?: A Little How much difficulty sitting down on / standing up from a chair with arms?: A Lot How much difficulty moving from lying on back to sitting on side of bed?: A Little How much help from another person moving to and from a bed to a chair?: A Lot How much help from another person needed to walk in hospital room?: Total How much help from another person for climbing 3-5 steps with a railing?: Total [facility] Inpatient Mobility Raw Score : 12 [facility] Inpatient T-Scale Score : 35.33 Mobility Inpatient CMS 0-100% Score: 68.66 Mobility Inpatient CMS G-Code Modifier : CL AM-PAC Score AM-[facility] Inpatient Mobility Raw Score : 12 (11/02/201509) AM-[facility] Inpatient T-Scale Score : 35.33 (11/02/201509) Mobility Inpatient CMS 0-100% Score: 68.66 (11/02/201509) Mobility Inpatient CMS G-Code Modifier : CL (11/02/201509) Goals Short term goals Time Frame for Short term goals: 6 visits Short term goal 1: Pt will complete 1-2 sets/10 reps of LE exercises to improve LE strength Short term goal 2: Pt will complete supine<->sit at CGA to improve bed mobility Short term goal 3: Pt will complete sit<->stand with FWW at CGA in preparation for mobility Short term goal 4: Pt will complete functional transfers at min A with stable vitals to improve functional mobility Short term goal 5: Pt will stand for at least 3 minutes with CGA to improve standing balance/tolerance Patient Goals Patient goals : pt did not state Therapy Time Individual Concurrent Group Co-treatment Time In 1339 Time Out 1358 Minutes 19 Janine Bonner, PT * Suleiman Laird MD - 11/02/2020 3:13 PM EST Asked to assume care on transfer out of ICU. D/w Dr Conteh * Jerardo Conteh MD - 11/02/2020 7:46 AM EST ICU - Progress Note Joseph Brown : 1955(64 y.o.) Date: November 02, 2020 Subjective: 1. Extub 10/31 -->weaned to 5-6 lpm NC 2. Dysphagia but passed GAUGE OPERATOR -->puree, thin liq 3. Net NEG I/Os for several days 4. Up to bedside and chair w/ OT Objective: VITALS: BP 102/60 Pulse 72 Temp 98.5 F (36.9 C) (Axillary) Resp 24 Ht 6' (1.829 m) Wt 240lb 12.8 oz (109.2 kg) SpO2 92% BMI 32.66 kg/m CURRENT PULSE OXIMETRY: SpO2: 92 % I/O: 11/01 0701 - 11/02 0700 In: 125 [P.O.:125] Out: 875 [Urine:875] Ventilator Settings: Oxygen Delivery - O2 Flow Rate (L/min): 6 L/min Invasive Lines and Dates: R IJ CVC Intubation Date: N/A General Appearance: [x]Well Developed []Obese []Cachectic []Thin []ill Skin: Temperature [x]Warm []Cool Rash []Yes [x]No Tattoo(s) []Yes []No HEENT: Pupils round and react [x]Yes []No Sclera []Icteric [x]Non-Icteric Conjunctiva []Injected [x]Non-Injected Pinnae [x]Normal []Other Dentitian [][place] Teeth []Dentures Oral Mucosa [][place] []Moist []Dry Oral ETT []Present [x]Absent Neck: Trachea midline [x]Yes []No Thyromegaly []Yes [x]No Crepitus []Present [x]Absent Jvd []Present [x]Absent Lungs: []Clear [x]Crackles []Wheezes [][place] Respiratory effort []Labored [x]Non-Labored Heart: Rate [x]Regular []Irregular []Tachycardia []Bradycardia Rhythm [x]Regular []Irregular Murmur []Present []Absent Peripheral Edema [x]Present []Absent Abdomen: [x]Soft Bowel Sounds []Present []Absent []Tender [x]Non-Tender []Distended [x]Non-distended Hernia []Present []Absent Organomegaly []Present [x]Absent []Scar Extremities: Cyanosis []Present [x]Absent CORDOVA ([x]RUE [x]RLE [x]LUE [x]LLE) Neurologic: TLINGIT & HAIDA []Yes [x]No Corneal reflexes []Present []Absent Plantar reflexes []Up [x]Down []Absent Withdraws to tactile [x]Yes []No Follows Commands [x]Yes []No []Unresponsive to verbal [x]Cranial nerves grossly intact [x]Sensation grossly intact Psych: Alert []yes []no Oriented []x0 []x1 []x2 [x]x3 Affect [x]Normal []Flat []Agitated []Anxious []Calm []Sedated [x]NAD [facility] Labs within last 72 hours BMP: Recent Labs 10/31/2033611/01/2025711/02/20317 NA 140 140 145 K 4.5 3.9 3.8 CL 106 107 112* CO2 31* 30 29 BUN 38* 36* 40* CREATININE 0.69 0.65 0.63 CALCIUM 8.2* 8.3* 8.4 MG 2.5* 2.4* 2.5* PHOS 3.8 4.1 4.6* LFTS: Recent Labs 10/31/2033611/01/2025711/02/20317 AST 86* 111* 101* ALT 117* 172* 221* PROT 6.1* 6.2* 6.2* LABALBU 2.7* 2.8* 2.8* BILITOT 0.7 0.7 0.7 ALKPHOS 70 75 71 Glucose: Recent Labs 10/31/2033611/01/2025711/02/20317 GLUCOSE 135* 130* 138* CBC: Recent Labs 10/31/2033611/01/2025711/02/20317 WBC 9.7 8.5 8.2 HGB 10.2* 10.4* 10.3* HCT 31.1* 31.0* 30.8* PLT 316 321 352 MCV 91.2 91.5 90.8 RDW 14.4 14.5 14.5 ABGs: Recent Labs 10/31/20 0424 PHART 7.458* [id number] 38.8 PO2ART 89.7 [id number] 27.4* [id number] 97.4 FIO2A 40 CRP: Recent Labs 10/31/2033611/01/2025711/02/20317 CRP 123.9* 73.8* 43.8* LDH: Recent Labs 10/31/2033611/01/2025711/02/20317 LDH 310* 363* 349* Assessment and Plan: Acute hypoxic respiratory failure d/t ARDS d/t Covid-19 PNA, strep pna PNA -->decadron >10d -->taper to off -->s/p remdesivir -->s/p abx for strep PNA -->physio diuresis Acute DVT -->d/c rx dose LMWH -->start DOAC Pericardial Effusion (mild-mod) -->by CT -->no s/s tamponade -->favor TTE Delirium -->decr seroquel -->d/c prior to discharge FEN, dysphagia, constipation -->monitor po intake -->if hyperNa, may need 0.45 NS low rate MIV -->GAUGE OPERATOR, dysphagia diet -->encouraged po -->not really eating much of pureed diet at all -->senokot-S, glycolax -->continue dulcolax supp q12 till (+) BM -->PPI -->d/c R IJ -->d/c nance -->may need bladder scan if low uop Dispo -->OK for tele (h/o SVT) Full Code Family Communication Number Called: [phone] Name of Designated Family Wool Spotter: Katja Brown Relationship to Patient: spouse Phone Call Outcome: I spoke with the individual listed above. Family Wool Spotter Updated on the Following: Improved TRANSFER CHECKLIST Transfer Med Reconciliation (resume home meds if able, convert to PO if able) Complete Antibiotics (name, indication, duration, convert to PO if able) None Steroid (indication, duration, convert to PO if able) Yes, addressed in today's progress note (decadron taper) Anticipated [place] Medications (ICU initiated) or Dose Changes and Indication No Permanently Discontinued Home Medications and Reason for medication contraindication No Nance Catheter (please remove if able) No Central Line (please remove if able) No Transfer Discussed with: Dr. Laird If additional questions for ICU team within 24 hours of ICU transfer, page [phone] for clarifications. * Susan Millard, OT - 11/01/2020 1:04 PM EST Occupational Therapy Facility/Department: [facility] ICU Daily Treatment Note NAME: Joseph Brown : 1955 Date of Service: 11/01/2020 Discharge Recommendations: (facility based therapy) OT Equipment Recommendations Equipment Needed: No Other: TBD Assessment Performance deficits / Impairments: Decreased functional mobility ;Decreased high-level IADLs;Decreased endurance;Decreased ADL status;Decreased balance;Decreased strength Assessment: Pt is a 64 yo male admitted to [facility] with acute hypoxic respiratory failure 2/2 COVID. Ptintubated from 10/24-. Pt is currently at MOD-MAX A level and is at risk for further decline d/t SOB with increased O2 requirements, decreased balance, overall weakness/fatigue, and decreased activity tolerance. Pt is expected to benefit from further acute OT skilled services to increase indep and safety needed for occupational participation. 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 Detailed PMH is listed below. Exam: AM PAC Assistance / Modification: MOD-MAX A OT Education: OT Role;Plan of Care;Energy Conservation Barriers to Learning: No barriers identified REQUIRES OT FOLLOW UP: Yes Activity Tolerance Activity Tolerance: Patient limited by fatigue;Treatment limited secondary to medical complications(free text) Activity Tolerance: Decreased SpO2 with upright positioning, pt reports first time OOB since admission Safety Devices Safety Devices in place: Yes Type of devices: All fall risk precautions in place;Patient at risk for falls;Left in bed;Call light within reach;Nurse notified Patient Diagnosis(es): The primary encounter diagnosis was Pneumonia due to COVID-19 virus. A diagnosis of Elevated troponin was also pertinent to this visit. has a past medical history of Arthritis, SVT (supraventricular tachycardia) (HCC), and Syncope. has a past surgical history that includes Cholecystectomy and amputation. Restrictions Restrictions/Precautions Restrictions/Precautions: Fall Risk, Isolation, Contact Precautions, General Precautions(ICU tele, 6L O2, continuous O2 monitoring, nance, COVID+) Required Braces or Orthoses?: No Subjective General Chart Reviewed: Yes Patient assessed for rehabilitation services?: Yes Family / Caregiver Present: No Subjective Subjective: Per RN, pt ok to see. Pt pleasant and cooperative, in bed on arrival, agreeable to OT eval. Vital Signs Patient Currently in Pain: Denies Orientation Orientation Overall Orientation Status: Within Functional Limits Objective ADL Feeding: Independent Grooming: Minimal assistance UE Bathing: Minimal assistance LE Bathing: Moderate assistance UE Dressing: Minimal assistance LE Dressing: Moderate assistance Toileting: Moderate assistance Balance Sitting Balance: Contact guard assistance(ranging from SUPV-CGA at EOB with BUE support on bed) Bed mobility Supine to Sit: Maximum assistance(required assist for BLE mgmt to EOB, as well as for trunk mgmt toupright positioning) Sit to Supine: Moderate assistance(pt able to manage trunk, required assist for BLE into bed) Scooting: Moderate assistance(to EOB with use of draw pad) Comment: Pt with some reports of dizziness with EOB sitting. SpO2 dropping to ~76% with upright positioning, required extended seated rest break at EOB to return to 90% with difficulties maintaining SpO2 at WFL. Following extended sitting at EOB with frequent cues for pursed lip breathing, pt assisted back supine d/t safety concerns. In EOB, pt able to recover >90% on 6L O2 via NC. Transfers Transfer Comments: No transfers completed on this date d/t decreased respiratory status at EOB, safety concerns with SpO2, transfers deferred. Cognition Overall Cognitive Status: WFL LUE AROM (degrees) LUE AROM : WFL RUE AROM (degrees) RUE AROM : WFL Plan Plan Times per week: 4 visits Current Treatment Recommendations: Strengthening, ROM, Balance Training, Functional Mobility Training, Endurance Training, Home Management Training, Equipment Evaluation, Education, & procurement, Patient/Caregiver Education & Training, Self-Care / ADL, Safety Education & Training Plan Comment: Goals and POC made in collaboration with pt. Patient's occupational therapy plan of care supervision is transferred to Inpatient Therapy Services Department occupational therapist. AM-PAC Score AM-PAC Inpatient Daily Activity Raw Score: 16 (11/01/20 130) AM-PAC Inpatient ADL T-Scale Score : 35.96 (11/01/20 1304) ADL Inpatient CMS 0-100% Score: 53.32 (11/01/20 130) ADL Inpatient [facility] G-Code Modifier : CK (11/01/201303) Goals Short term goals Time Frame for Short term goals: 4 visits Short term goal 1: Pt will complete grooming/UB ADLs with SUPV Short term goal 2: Pt will complete LB ADLs with MIN A Short term goal 3: Pt will complete toileting including BSC transfer with MIN A Short term goal 4: Pt will complete functional transfers/standing at LRAD PRN with MIN A Short term goal 5: Pt will utilize energy conservation techs during ADL routine to maintain SpO2 >90% Patient Goals Patient goals : To increase indep in ADLs Therapy Time Individual Concurrent Group Co-treatment Time In 1056 Time Out 1119 Minutes 23 Timed Code Treatment Minutes: 8 Minutes(TA-1) Susan Millard OT * Chela Xiao SLP - 11/01/2020 11:46 AM EST Speech Language Pathology Facility/Department: [facility] ICU CLINICAL BEDSIDE SWALLOW EVALUATION NAME: Joseph Brown : 1955 ADMISSION DATE: 10/19/2020 ADMITTING DIAGNOSIS: has Epididymal cyst; BPH without obstruction/lower urinary tract symptoms; Syncope; SVT (supraventricular tachycardia) (HCC); Pneumonia due to COVID-19 virus; and ARDS (adult respiratory distress syndrome) ([facility]) on their problem list. ONSET DATE: 10/20/20 Recent Chest Xray/CT of Chest: Portable chest 10/31/2020: Clinical Information: Pneumonia. Findings: A single AP portable view of the chest was obtained at 955 hours. Comparison was made to the prior study 07/29/2021. The various lines and tubes are unchanged. There continue to be diffuse bilateral infiltrates unchanged from prior study. Date of Eval: 11/01/2020 Evaluating Therapist: Chela Xiao Current Diet level: NPO except ice chips Primary Complaint- s/p recent extubation, Patient was intubated 8 days. Patient c/o generalized weakness and fatigue. S/p Covid PNA. ARDS Pain: Pain Assessment Pain Assessment: 0-10 Pain Level: 0 Patient's Stated Pain Goal: No pain Pain Type: Chronic pain Pain Location: Hip Pain Orientation: Right Non-Pharmaceutical Pain Intervention(s): Repositioned, Rest Response to Pain Intervention: Asleep with RR greater than 10 RASS Score: Alert and calm Reason for Referral Joseph Brown was referred for a bedside swallow evaluation to assess the efficiency of his swallow function, identify signs and symptoms of aspiration and make recommendations regarding safe dietary consistencies, effective compensatory strategies, and safe eating environment. Impression Dysphagia Diagnosis: Swallow function appears grossly intact Dysphagia Outcome Severity Scale: Level 5: Mild dysphagia- Distant supervision. May need one diet consistency restricted Treatment Plan Requires GAUGE OPERATOR Intervention: Yes Duration/Frequency of Treatment: 3 visits D/C Recommendations: To be determined Recommended Diet and Intervention Liquid Consistency Recommendation: Thin Recommended Form of Meds: Crushed in puree as able Recommendations: Consider ice chips PRN Therapeutic Interventions: Oral care;Diet tolerance monitoring;Patient/Family education Compensatory Swallowing Strategies Compensatory Swallowing Strategies: Small bites/sips;Upright as possible for all oral intake;Eat/Feed slowly;Other (comments)(Patient requires time between bites/sips for patient to catch his breath) Treatment/Goals- Patient stated goal to move out of ICU to unit. Short-term Goals Timeframe for Short-term Goals: 3 visits Goal 1: Pt will tolerate sips of thin liquids and ice chips without clinical signs of aspiration. Goal 2: Pt will tolerate meds crushed in puree bolus per nursing without overt signs dysphagia/aspiration Goal 3: Pt will complete oropharyngeal strengthening exercises with 90% accuracy given min cues, astolerated. Goal 4: Pt will maintain O2 sats above 90 [address] po trials with [address]. Goal 5: Use compensatory swallow strategies given min assist. Long-term Goals Timeframe for Long-term Goals: 1 week Goal 1: Safe return to oral nutrition/hydration. Vision/Hearing- appear WNL. Oral Motor Deficits Oral/Motor Oral Motor: Within functional limits Oral Phase Dysfunction Oral Phase Oral Phase: WFL Indicators of Pharyngeal Phase Dysfunction Pharyngeal Phase Pharyngeal Phase: WFL Prognosis Prognosis Prognosis for safe diet advancement: fair Barriers to reach goals: fatigue Barriers/Prognosis Comment: Patient c/o significant weakness and fatigue, SOB at times, needing frequent rest breaks for energy conservation and WOB, with PO. O2 sats range in the high 80s throughoutclinical swallow assessment. Individuals consulted Consulted and agree with results and recommendations: RN;Patient Education Patient Education: Results and recommendations Patient Education Response: Verbalizes understanding Safety Devices in place: Yes Type of devices: Call light within reach Therapy Time GAUGE OPERATOR Individual Minutes Time In: 1118 Time Out: 1138 Minutes: 20 JODY Prakash 11/01/2020 11:46 AM * Demetria Alford MD - 11/01/2020 8:56 AM EST ICU Progress Note 11/01/2020 10:57 AM Subjective: Admit Date: 10/19/2020 PCP: LAQUITA DING, DO Interval History: Pt doing well post extubation. Wants to eat and have water. Pt has weak voice butis strong enough to understand. Diet: Diet NPO Effective Now Exceptions are: Ice Chips Medications: Scheduled Meds: metoprolol 5 mg Intravenous Q6H ipratropium-albuterol 1 ampule Inhalation TID [Held by provider] QUEtiapine 100 mg Per NG tube BID [Held by provider] metoprolol tartrate 50 mg Per NG tube BID sodium chloride flush 10 mL Intracatheter Q8H dexamethasone 8 mg Intravenous Daily bisacodyl 10 mg Rectal BID enoxaparin 110 mg Subcutaneous Q12H [Held by provider] polyethylene glycol 17 g Oral Daily [Held by provider] sennosides-docusate sodium 2 tablet Oral BID sodium chloride flush 10 mL Intravenous 2 times per day [Held by provider] aspirin 81 mg Oral Daily [Held by provider] atorvastatin 40 mg Oral Nightly [Held by provider] Vitamin D 2,000 Units Oral Daily Continuous Infusions: CBC: Recent Labs 10/30/2033710/31/2033611/01/20 0258 WBC 11.7* 9.7 8.5 HGB 10.9* 10.2* 10.4* PLT 300 316 321 BMP: Recent Labs 10/30/2033710/31/20 0337 11/01/20 0258 NA 138 140 140 K 4.1 4.5 3.9 CL 103 106 107 CO2 32* 31* 30 BUN 32* 38* 36* CREATININE 0.63 0.69 0.65 GLUCOSE 143* 135* 130* Hepatic: Recent Labs 10/30/2033710/31/20 0337 11/01/20 0258 AST 64* 86* 111* ALT 73* 117* 172* BILITOT 0.8 0.7 0.7 ALKPHOS 82 70 75 Objective: Vitals: BP 111/71 Pulse 94 Temp 98.4 F (36.9 C) (Oral) Resp 22 Ht 6' (1.829 m) Wt 240 lb 12.8 oz (109.2 kg) SpO2 91% BMI 32.66 kg/m Physical Exam: General Appearance: []WDWN [x]Obese []Cachectic []Thin []ill Skin: Temperature [x]Warm []Cool Rash []Yes [x]No Tattoo(s) []Yes [x]No HEENT: Pupils round and react [x]Yes []No Sclera []Icteric [x]Non-Icteric Conjunctiva []Injected [x]Non-Injected Pinnae [x]Normal []Other Dentitian [x][place] Teeth []Dentures []Poor dentition []Edentulous Oral Mucosa [x][place] [x]Moist []Dry Oral ETT []Present [x]Absent Neck: Trachea midline [x]Yes []No Thyromegaly []Yes [x]No Crepitus []Present [x]Absent Jvd []Present [x]Absent Lungs: []Clear [x]Crackles []Wheezes []Rhonchi Respiratory effort []Labored [x]Non-Labored Heart: Rate [x]Regular []Irregular []Tachycardia []Bradycardia Rhythm [x]Regular []Irregular Murmur []Present [x]Absent Peripheral Edema []Present [x]Absent Abdomen: [x]Soft Bowel Sounds [x]Present []Absent []Diminished []Tender [x]Non-Tender []Distended [x]Non-distended Hernia []Present []Absent Organomegaly []Present [x]Absent []Unable to assess due to size []Scar Extremities: Cyanosis []Present [x]Absent Capillary Refill [x]<3 sec []>3 sec CORDOVA ([x]RUE [x]RLE [x]LUE [x]LLE) Generalized weakness Neurologic: TLINGIT & HAIDA []Yes [x]No Corneal reflexes []Present []Absent Plantar reflexes []Up []Down []Absent Withdraws to tactile []Yes []No Follows Commands [x]Yes []No []Unresponsive to verbal [x]Cranial nerves grossly intact []Sensation grossly intact Psych: Alert [x]yes []no Oriented []x0 []x1 []x2 [x]x3 Affect [x]Normal []Flat []Agitated []Anxious []Calm []Sedated []NAD Assessment and Plan: 1. Respiratory failure: covid, secondary pneumococcal pneumonia, pt is s/p extubation and doing well. On aerosols, steroids, completed Atbx. Will begin wean of steroids 2. HTN/SVT: on IV lopressor pending swallow eval 3. DVT: on treatment dose lovenox, possible change to DOAC, if tolerating PO 4. Nutrition: awaiting swallow eval 5. Anemia: no active bleeding, 6. Encephalopathy: improved Patient Active Problem List: Epididymal cyst BPH without obstruction/lower urinary tract symptoms Syncope SVT (supraventricular tachycardia) (HCC) Pneumonia due to COVID-19 virus ARDS (adult respiratory distress syndrome) ([facility]) DEMETRIA ALFORD MD * Joel De León, [facility] - 10/31/2020 11:48 PM EST Patient Evaluation Form The patient is currently receiving Duoneb Q4 Points 0 1 2 3 4 Points Totals Pulmonary Status (-/+) History Smoking history < 20 pack years Smoking history > 20 pack years Pulmonary Disorder (acute or chronic) Severe or Chronic with Exacerbation 3 Surgical Status No Surgery Trach PEG General Surgery Lower Abdominal Thoracic or Upper Abdominal Thoracic with Pulmonary Disorder 0 Chest X-ray Clear None Ordered Chronic Changes CXR results Pending Infiltrates, atelectasis, pleural effusion, or edema Infiltrates in more than one lobe Infiltrate + Atelectasis, &/or pleural effusion 2 Respiratory Pattern Regular, RR = 12-20 Increased, RR = 21-25 MCKEON, irregular, or RR = 26-30 Decreased FEV1 or RR = 31-35 Severe SOB, used of of accessory muscles, or RR = > 35 0 Mental Status Alert, oriented, cooperative Confused, but follows commands Lethargic or un-able to follow commands Obtunded Comatose 0 Breath Sounds Clear to auscultation Decreased unilaterally or in bases only Decreased bilaterally Crackles or intermittent wheezes Wheezes 2 Cough Strong, spontaneous, & nonproductive Strong, spontaneous, & productive Weak, nonproductive Weak, productive or with wheezes No spontaneous cough or may require suctioning 0 Level of Activity Ambulatory Ambulatory with Assist Non-ambulatroy Paraplegic Quadriplegic 1 Triage 1 > 20 pts Triage 2 16-20 pts Triage 3 11- 15 pts Triage 4 6 - 10 pts Triage 5 0 - 5 pts TOTAL POINTS = 8 Triage Score = 4 Changing Therapy to Duoneb TID * Kishan Elliott RCP - 10/31/2020 9:32 AM EST [facility] Respiratory Care Department Progress Note Spontaneous Breathing Trial (SBT) Start: 2-3 min to Stabilize After 15 min After 30 min HR 106 108 108 SpO2 (%) 96 94 94 RR 21 18 23 VT (mL) 581 628 674 Total RSBI (RR/VT in Liters) 36 28 34 Pass SBT (RSBI must be?105 to pass) Yes Yes Yes Comments (state reason if SBT failed): Patient placed on TC trial at 0932. Patient maintained appropriate TV, HR, RR and SpO2. Patient extubated to 6Lpm at 1022 Name of physician results were reported to: Dr. Alford Time results reported to physician: 1007 Thank you for involving Respiratory in the care of this patient, * Demetria Alford MD - 10/31/2020 7:30 AM EST Critical Care Progress Note 10/31/2020 9:43 AM Subjective: Admit Date: 10/19/2020 PCP: LAQUITA DING DO Chief Complaint Patient presents with Shortness of Breath Emesis Positive For Covid-19 Interval History: Pt awake and responsive. Nods head to questions. Denies SOB,CP Diet: held for extubation Allergies:No Known Allergies Home Meds: Prior to Admission medications Medication Sig Start Date End Date Taking? Authorizing Provider atorvastatin (LIPITOR) 40 MG tablet Take 40 mg by mouth daily Yes Historical Provider, famotidine (PEPCID) 20 MG tablet Take 1 tablet by mouth 2 times daily 10/16/20 Fransisco Lopez MD Scheduled Meds: ipratropium-albuterol 1 ampule Inhalation Q4H QUEtiapine 100 mg Per NG tube BID metoprolol tartrate 50 mg Per NG tube BID cefTRIAXone (ROCEPHIN) IV 2 g Intravenous Q24H sodium chloride flush 10 mL Intracatheter Q8H chlorhexidine 15 mL Mouth/Throat BID famotidine (PEPCID) injection 20 mg Intravenous BID dexamethasone 8 mg Intravenous Daily bisacodyl 10 mg Rectal BID enoxaparin 110 mg Subcutaneous Q12H polyethylene glycol 17 g Oral Daily sennosides-docusate sodium 2 tablet Oral BID sodium chloride flush 10 mL Intravenous 2 times per day promethazine 12.5 mg Intravenous Once aspirin 81 mg Oral Daily atorvastatin 40 mg Oral Nightly Vitamin D 2,000 Units Oral Daily Continuous Infusions: propofol 10 mcg/kg/min (10/31/20 0500) fentaNYL 120 mcg/hr (10/31/20 0630) Objective: Vitals: Temp (24hrs), Av.8 F (37.1 C), Min:98.6 F (37 C), Max:98.9 F (37.2 C) BP 120/70 Pulse 96 Temp 98.9 F (37.2 C) (Oral) Resp 20 Ht 6' (1.829 m) Wt 240 lb 12.8 oz (109.2 kg) SpO2 94% BMI 32.66 kg/m CURRENT PULSE OXIMETRY: SpO2: 94 % 24HR PULSE OXIMETRY RANGE: SpO2 Av.1 % Min: 92 % Max: 98 % I/O: 10/30 0701 - 10/31 0700 In: 1149.3 [I.V.:146.3] Out: 1550 [Urine:1550] CVP: Invasive Lines: PICC D# CVC D# Art Line D# ETT D# Ventilator Settings: Vent Mode: AC/VC+ Rate Set: 20 bmp Vt Ordered: 480 mL Pressure Support: 0 cmH20 PEEP/CPAP: 8 FiO2 : 40 % PHYSICAL EXAM: General Appearance: []WDWN [x]Obese []Cachectic []Thin []ill Skin: Temperature [x]Warm []Cool Rash []Yes [x]No Tattoo(s) []Yes []No HEENT: Pupils round and react [x]Yes []No Sclera []Icteric [x]Non-Icteric Conjunctiva []Injected [x]Non-Injected Pinnae [x]Normal []Other Dentitian [x][place] Teeth []Dentures []Poor dentition []Edentulous Oral Mucosa [x][place] []Moist []Dry Oral ETT [x]Present []Absent Neck: Trachea midline [x]Yes []No Thyromegaly []Yes [x]No Crepitus []Present [x]Absent Jvd []Present [x]Absent Lungs: [x]Clear []Crackles []Wheezes []Rhonchi Respiratory effort []Labored [x]Non-Labored Heart: Rate [x]Regular []Irregular []Tachycardia []Bradycardia Rhythm [x]Regular []Irregular Murmur []Present [x]Absent Peripheral Edema [x]Present mild []Absent Abdomen: [x]Soft Bowel Sounds [x]Present []Absent []Diminished []Tender []Non-Tender []Distended [x]Non-distended Hernia []Present []Absent Organomegaly []Present [x]Absent []Unable to assess due to size []Scar Extremities: Cyanosis []Present [x]Absent Capillary Refill [x]<3 sec []>3 sec CORDOVA ([x]RUE [x]RLE [x]LUE [x]LLE) Neurologic: TLINGIT & HAIDA []Yes [x]No Corneal reflexes []Present []Absent Plantar reflexes []Up []Down []Absent Withdraws to tactile []Yes []No Follows Commands [x]Yes []No []Unresponsive to verbal []Cranial nerves grossly intact []Sensation grossly intact Psych: Alert [x]yes []no Oriented []x0 []x1 []x2 []x3 Affect []Normal []Flat []Agitated [x]Anxious at times []Calm []Sedated []NAD BMP: Recent Labs 10/29/20 0351 10/30/20 0338 10/31/20 0337 NA 139 138 140 K 4.2 4.1 4.5 CL 107 103 106 CO2 28 32* 31* BUN 31* 32* 38* CREATININE 0.60 0.63 0.69 GLUCOSE 118* 143* 135* . Ionized Calcium: Lab Results Component Value Date IONCA 4.50 10/31/2020 IONCA 4.40 10/30/2020 Hepatic: Recent Labs 10/30/20 0338 10/31/20336 AST 64* 86* ALT 73* 117* BILITOT 0.8 0.7 ALKPHOS 82 70 ABG: Recent Labs 10/31/20 0424 PHART 7.458* PO2ART 89.7 MYN0UTI 38.8 EJO2VEI 27.4* BEART 3.4* [id number] 97.4 CBC: Recent Labs 10/30/208 10/31/20336 WBC 11.7* 9.7 HGB 10.9* 10.2* PLT 300 316 Cultures: No results found for: BC Lab Results Component Value Date RESPCULTURE Few normal respiratory yolanda. 10/24/2020 RESPCULTURE Streptococcus pneumoniae 10/24/2020 RESPCULTURE Moderate 10/24/2020 Films: CXR portable: Results for orders placed during the hospital encounter of 10/19/20 XR CHEST PORTABLE Narrative Patient Name: JOSEPH BROWN Diagnostic Radiology ACCESSION EXAM DATE/TIME PROCEDURE ORDERING PROVIDER [id number] 10/29/2020 05:58 EST CR Chest Portable AMARILIS LUKE JEFFREY A CPT code 61532 Reason For Exam (CR Chest Portable) pneumonia Report PORTABLE CHEST: INDICATION: Pneumonia COMPARISON: 10/27/2020 Obtained at 0535 hours. A single portable AP radiograph of the chest was obtained. The heart is normal in size. The mediastinal silhouette is normal. Diffuse bilateral patchy infiltrates are present. There are no effusions. There is no pleural thickening. Arthritic changes of the spine and shoulders are present. The ET tube and NG tube are unchanged. A right internal jugular central venous catheter is present with the tip overlying the superior vena cava. IMPRESSION: Diffuse bilateral patchy infiltrates are present. Report Dictated on Workstation: [facility] --- Final --- Dictating Physician: DO CID ALFRED Signed Date and Time: 10/29/2020 6:15 am Signed by: DO CID ALFRED Transcribed Date and Time: 10/29/2020 6:16 Problem list of patient: Patient Active Problem List Diagnosis Epididymal cyst BPH without obstruction/lower urinary tract symptoms Syncope SVT (supraventricular tachycardia) (HCC) Pneumonia due to COVID-19 virus ARDS (adult respiratory distress syndrome) ([facility]) Assessment and Plan: 1. Respiratory failure: Covid, with secondary streptococcus pneumonia. On steroids, aerosols, completing last day of Atbx. Will extubate today. 2. Covid: completed remdesivir, on steroids 3. HTN/SVT: on beta katie, statin, ASA 4. Below knee DVT: on treatment dose LMWH 5. Anemia: due to blood draws, 6. Nutrition: on hold for extubation 7. Acute encephalopathy: metabolic, improved, on seroquel Prophylaxis: Stress ulcer: [] PPI Agent [x] H2RA [] Sucralfate [] Other: VTE: [x] Enoxaparin [] SC Heparin [] SCD Full Code Excluding procedures, the total critical care time caring for this patient with life threatening, unstable organ failure, including direct patient contact, review of medical record, management of life support systems, review of data including imaging and labs, discussions with other team members, patient's family and physicians at least 37 minutes so far today. * Issa Coreas RCP - 10/31/2020 4:26 AM EST 10/31/20 0413 Spontaneous Breathing Trial (SBT) RT Doc Contraindications to SBT? None Rate Measured 24 br/min Pulse 119 SpO2 93 % * Nay Sherwood RD, LD - 10/30/2020 2:54 PM EST Comprehensive Nutrition Assessment Type and Reason for Visit: Reassess Nutrition Recommendations/Plan: Noted propofol rate reduced to 6.5 ml/hr, therefore, pt no longer receiving high amount lipid calories & EN rate modification warranted. 1. EN Recommendation: Vital High Protein at goal rate of 55 mL/hr + Propofol running at 6.5 ml/hr (171 lipid calories x 24 hours) provides 1491 kcals, 115 grams of protein, 1103 mL free water (13.6 kcals/kg + 1.0 gram protein per kg CBW <109.2kg>). 2. RD to monitor respiratory status, EN tolerance, wt changes, labs, I/O's & overall nutrition status. Will follow up weekly. Nutrition Assessment: Pt with acute respiratory failure d/t Covid, secondary strep pneumonia. Per chart review, pt with gradual improvement. Remains intubated/ sedated. On aerosols, steroids, Atbx. Pt observed through thewindow, EN infusing at goal rate & propofol running at 6.5 mL/hr. Malnutrition Assessment: Malnutrition Status: Insufficient data Context: Acute Illness Due to the current efforts to prevent transmission of COVID-19 and also the need to preserve PPE for other caregivers, a [id number] encounter with the patient was not performed. Estimated Daily Nutrient Needs: Energy (kcal): 1200- 1525; Weight Used for Energy Requirements: Current Protein (g): 81-115; Weight Used for Protein Requirements: Dinosaur(1-1.4) Fluid (ml/day): per md; Method Used for Fluid Requirements: 1 ml/kcal Nutrition Related Findings: -I/O (2.2L); Hypoactive BS; Abdomen: soft, round; No edema indicated; Skin intact; Db=13 (10/30); Propofol running at 6.5 mL/hr at time of RD assessment Wounds: None Medications: Seroquel, Rocephin, Decadron, Dulcolax, Glycolax, Senokot, Phenergan, Lipitor, Vit D, Fentanyl, Propofol Labs: BUN 32; BGT: 146, 118, 143^; WBC: 11.7^ Current Nutrition Therapies: DIET TUBE FEED CONTINUOUS/CYCLIC NPO; Low Calorie High Protein; 10; 35 Current Tube Feeding (TF) Orders: Feeding Route: Orogastric Formula: Low Calorie, High Protein Schedule: Continuous Additives/Modulars: (none) Water Flushes: Per LINDA anderson Current TF & Flush Orders Provides: Vital HP @ 35 mL/hr = 840 kcals, 73 grams of protein, 702 ml free water + Propofol @ 6.5 mL/hr (171 lipid kcals); Total of 1011 kcals, 73 grams of protein, 1344 mL free water Goal TF & Flush Orders Provides: Vital HP @ 55 mL/hr = 1320 kcals, 115 grams of protein, 1103 mL free water + Propofol @ 6.5 mL/hr (171 lipid kcals); Total of 1491 kcals, 115 grams of protein, 1103 mL free water Anthropometric Measures: Height: 6' (182.9 cm) Current Body Weight: 240 lb (108.9 kg)(10/29) Admission Body Weight: 240 lb (108.9 kg)(stated weight) Usual Body Weight: 240 lb (108.9 kg) Dinosaur Body Weight: 178 lbs; % Dinosaur Body Weight 134.8 % BMI: 32.5 Adjusted Body Weight: ; No Adjustment BMI Categories: Obese Class 1 (BMI 30.0-34.9) Nutrition Diagnosis: Altered GI function related to catabolic illness, impaired respiratory function(covid, strep) as evidenced by nutrition support - enteral nutrition, other (comment)(on diprivan) Altered nutrition-related lab values related to cardiac dysfunction, other (comment)(steroids , vitd defic) as evidenced by other (comment), lab values(vit d replacement) Nutrition Interventions: Food and/or Nutrient Delivery: Modify Tube Feeding Nutrition Education/Counseling: No recommendation at this time Coordination of Nutrition Care: Continue to monitor while inpatient Goals: Pt will receive/tolerate adequate nutrition via EN. Nutrition Monitoring and Evaluation: Behavioral-Environmental Outcomes: None Identified Food/Nutrient Intake Outcomes: Enteral Nutrition Intake/Tolerance Physical Signs/Symptoms Outcomes: Biochemical Data, GI Status, Fluid Status or Edema, Hemodynamic Status, Nutrition Focused Physical Findings, Skin, Weight Discharge Planning: Too soon to determine Contact: [id number] * Demetria Alford MD - 10/30/2020 7:09 AM EST Critical Care Progress Note 10/30/2020 9:39 AM Subjective: Admit Date: 10/19/2020 PCP: LAQUITA DING DO Chief Complaint Patient presents with Shortness of Breath Emesis Positive For Covid-19 Interval History: Pt looks much better this am. Still with some episodes of anxiety/agitation but improving. Pt able to nod head to questions. Diet: DIET TUBE FEED CONTINUOUS/CYCLIC NPO; Low Calorie High Protein; 10; 35 Allergies:No Known Allergies Home Meds: Prior to Admission medications Medication Sig Start Date End Date Taking? Authorizing Provider atorvastatin (LIPITOR) 40 MG tablet Take 40 mg by mouth daily Yes Historical Provider, famotidine (PEPCID) 20 MG tablet Take 1 tablet by mouth 2 times daily 10/16/20 Fransisco Lopez MD Scheduled Meds: ipratropium-albuterol 1 ampule Inhalation Q4H QUEtiapine 100 mg Per NG tube BID metoprolol tartrate 50 mg Per NG tube BID cefTRIAXone (ROCEPHIN) IV 2 g Intravenous Q24H sodium chloride flush 10 mL Intracatheter Q8H chlorhexidine 15 mL Mouth/Throat BID famotidine (PEPCID) injection 20 mg Intravenous BID dexamethasone 8 mg Intravenous Daily bisacodyl 10 mg Rectal BID enoxaparin 110 mg Subcutaneous Q12H polyethylene glycol 17 g Oral Daily sennosides-docusate sodium 2 tablet Oral BID sodium chloride flush 10 mL Intravenous 2 times per day promethazine 12.5 mg Intravenous Once aspirin 81 mg Oral Daily atorvastatin 40 mg Oral Nightly Vitamin D 2,000 Units Oral Daily Continuous Infusions: propofol 10 mcg/kg/min (10/30/20 0355) fentaNYL 100 mcg/hr (10/30/20 0505) Objective: Vitals: Temp (24hrs), Av.2 F (37.3 C), Min:98.6 F (37 C), Max:99.6 F (37.6 C) BP 137/73 Pulse 115 Temp 98.6 F (37 C) (Oral) Resp (!) 34 Ht 6' (1.829 m) Wt 240 lb 12.8 oz (109.2 kg) SpO2 96% BMI 32.66 kg/m CURRENT PULSE OXIMETRY: SpO2: 96 % 24HR PULSE OXIMETRY RANGE: SpO2 Av.9 % Min: 91 % Max: 97 % I/O: 10/29 0701 - 10/30 0700 In: 1540.4 [I.V.:471.4] Out: 2410 [Urine:2410] CVP: Invasive Lines: PICC D# CVC D# Art Line D# ETT D# Ventilator Settings: Vent Mode: AC/VC+ Rate Set: 20 bmp Vt Ordered: 480 mL Pressure Support: 0 cmH20 PEEP/CPAP: 8 FiO2 : 40 % PHYSICAL EXAM: General Appearance: []WDWN [x]Obese []Cachectic []Thin []ill Skin: Temperature [x]Warm []Cool Rash []Yes [x]No Tattoo(s) []Yes [x]No HEENT: Pupils round and react [x]Yes []No Sclera []Icteric [x]Non-Icteric Conjunctiva []Injected [x]Non-Injected Pinnae [x]Normal []Other Dentitian [x][place] Teeth []Dentures []Poor dentition []Edentulous Oral Mucosa [x][place] [x]Moist []Dry Oral ETT [x]Present []Absent Neck: Trachea midline [x]Yes []No cvp site looks good Thyromegaly []Yes [x]No Crepitus []Present [x]Absent Jvd []Present [x]Absent Lungs: []Clear []Crackles []Wheezes [x]Rhonchi Respiratory effort []Labored [x]Non-Labored Heart: Rate [x]Regular []Irregular []Tachycardia []Bradycardia Rhythm [x]Regular []Irregular Murmur []Present [x]Absent Peripheral Edema []Present [x]Absent Abdomen: [x]Soft Bowel Sounds [x]Present []Absent []Diminished []Tender [x]Non-Tender []Distended [x]Non-distended Hernia []Present []Absent Organomegaly []Present [x]Absent []Unable to assess due to size []Scar Extremities: Cyanosis []Present [x]Absent Capillary Refill [x]<3 sec []>3 sec CORDOVA ([x]RUE [x]RLE [x]LUE [x]LLE) Neurologic: TLINGIT & HAIDA []Yes [x]No Corneal reflexes []Present []Absent Plantar reflexes []Up []Down []Absent Withdraws to tactile []Yes []No Follows Commands [x]Yes []No []Unresponsive to verbal []Cranial nerves grossly intact []Sensation grossly intact Psych: Alert [x]yes []no Oriented []x0 []x1 []x2 []x3 Affect []Normal []Flat []Agitated []Anxious []Calm []Sedated []NAD BMP: Recent Labs 10/28/20 03510/29/2035010/30/20337 NA 140 139 138 K 4.2 4.2 4.1 CL 106 107 103 CO2 28 28 32* BUN 32* 31* 32* CREATININE 0.64 0.60 0.63 GLUCOSE 146* 118* 143* . Ionized Calcium: Lab Results Component Value Date IONCA 4.40 10/30/2020 IONCA 4.50 10/29/2020 Hepatic: Recent Labs 10/29/2035010/30/20337 AST 53* 64* ALT 49 73* BILITOT 0.7 0.8 ALKPHOS 68 82 ABG: Recent Labs 10/30/20334 PHART 7.465* PO2ART 65.9* [id number] 38.4 OLO1AVL 27.6* BEART 3.7* [id number] 93.9* CBC: Recent Labs 10/29/2035010/30/20337 WBC 10.4 11.7* HGB 10.7* 10.9* PLT 278 300 Films: CXR portable: Results for orders placed during the hospital encounter of 10/19/20 XR CHEST PORTABLE Narrative Patient Name: JOSEPH BROWN Diagnostic Radiology ACCESSION EXAM DATE/TIME PROCEDURE ORDERING PROVIDER [id number] 10/29/2020 05:58 EST CR Chest Portable AMARILIS LUKE JEFFREY A CPT code 73167 Reason For Exam (CR Chest Portable) pneumonia Report PORTABLE CHEST: INDICATION: Pneumonia COMPARISON: 10/27/2020 Obtained at 0535 hours. A single portable AP radiograph of the chest was obtained. The heart is normal in size. The mediastinal silhouette is normal. Diffuse bilateral patchy infiltrates are present. There are no effusions. There is no pleural thickening. Arthritic changes of the spine and shoulders are present. The ET tube and NG tube are unchanged. A right internal jugular central venous catheter is present with the tip overlying the superior vena cava. IMPRESSION: Diffuse bilateral patchy infiltrates are present. Report Dictated on Workstation: [id number] --- Final --- Dictating Physician: DO CID ALFRED Signed Date and Time: 10/29/2020 6:15 am Signed by: DO CID ALFRED Transcribed Date and Time: 10/29/2020 6:16 Problem list of patient: Patient Active Problem List Diagnosis Epididymal cyst BPH without obstruction/lower urinary tract symptoms Syncope SVT (supraventricular tachycardia) (HCC) Pneumonia due to COVID-19 virus ARDS (adult respiratory distress syndrome) ([facility]) Assessment and Plan: 1. Respiratory Failure: Covid, secondary strep pneumonia, Pt with gradual improvement, On aerosols,steroids, Atbx. Attempt SBT this am. 2. Acute encephalopathy: metabolic , improving on seroquel. 3. Covid: completed treatment. 4. Below knee DVT: on treatment dose 5. Anemia: due to blood draws 6. Nutrition: on tube feeds 7. HTN/SVT: on beta katie, ASA, statin Prophylaxis: Stress ulcer: [] PPI Agent [x] H2RA [] Sucralfate [] Other: VTE: [x] Enoxaparin [] SC Heparin [] SCD Discussed with Full Code Excluding procedures, the total critical care time caring for this patient with life threatening, unstable organ failure, including direct patient contact, review of medical record, management of life support systems, review of data including imaging and labs, discussions with other team members, patient's family and physicians at least 33 minutes so far today. * Issa Coreas RCP - 10/30/2020 3:34 AM EST 10/30/20 0324 Spontaneous Breathing Trial (SBT) RT Doc Contraindications to SBT? None Rate Measured 26 br/min Pulse 119 SpO2 95 % * Sola Martinez - 10/29/2020 9:10 AM EST Malorie Muse ( C Software Developer) and I spoke with dispatcher Jose Abbott regarding Echo ordered for patient. Patient COVID +. Contacted Dr. Dietrich who said did handheld beside Echo and Echo ordered was not needed. Per Dr. Dietrich ok to discontinue order. * Jose Abbott - 10/29/2020 8:[address] Dietrich (VIA [employer] on 10.29.20) regarding ECHO order due to PT COVID positive testob 10.19.20. Dr. Dietrich informed no need for ECHO due to physician check with hand held ECHO machine and ECHO Order from 10.24.20 can be cancel. * Demetria Alford MD - 10/29/2020 7:20 AM EST Critical Care Progress Note 10/29/2020 8:34 AM Subjective: Admit Date: 10/19/2020 PCP: LAQUITA DING DO Chief Complaint Patient presents with Shortness of Breath Emesis Positive For Covid-19 Interval History: Pt with weaning of sedation. Still has episodes of agitation with high HR,RR and BP but seems to be better. Has thick secretions. Diet: DIET TUBE FEED CONTINUOUS/CYCLIC NPO; Low Calorie High Protein; 10; 35 Allergies:No Known Allergies Home Meds: Prior to Admission medications Medication Sig Start Date End Date Taking? Authorizing Provider atorvastatin (LIPITOR) 40 MG tablet Take 40 mg by mouth daily Yes Historical Provider, famotidine (PEPCID) 20 MG tablet Take 1 tablet by mouth 2 times daily 10/16/20 Fransisco Lopez MD Scheduled Meds: ipratropium-albuterol 1 ampule Inhalation Q4H QUEtiapine 100 mg Per NG tube BID metoprolol tartrate 50 mg Per NG tube BID cefTRIAXone (ROCEPHIN) IV 2 g Intravenous Q24H sodium chloride flush 10 mL Intracatheter Q8H chlorhexidine 15 mL Mouth/Throat BID famotidine (PEPCID) injection 20 mg Intravenous BID dexamethasone 8 mg Intravenous Daily bisacodyl 10 mg Rectal BID enoxaparin 110 mg Subcutaneous Q12H polyethylene glycol 17 g Oral Daily sennosides-docusate sodium 2 tablet Oral BID sodium chloride flush 10 mL Intravenous 2 times per day promethazine 12.5 mg Intravenous Once aspirin 81 mg Oral Daily atorvastatin 40 mg Oral Nightly Vitamin D 2,000 Units Oral Daily Continuous Infusions: propofol 30 mcg/kg/min (10/29/20638) fentaNYL 100 mcg/hr (10/29/20638) Objective: Vitals: Temp (24hrs), Av.1 F (37.3 C), Min:98.2 F (36.8 C), Max:100 F (37.8 C) BP (!) 173/84 Pulse 107 Temp 99 F (37.2 C) (Oral) Resp 21 Ht 6' (1.829 m) Wt 240 lb (108.9 kg) SpO2 92% BMI 32.55 kg/m CURRENT PULSE OXIMETRY: SpO2: 92 % 24HR PULSE OXIMETRY RANGE: SpO2 Av.4 % Min: 92 % Max: 99 % I/O: 10/28 0701 - 10/29 0700 In: 1385.4 [I.V.:932.4] Out: 1865 [Urine:1864] CVP: Invasive Lines: PICC D# CVC D# Art Line D# ETT D# Ventilator Settings: Vent Mode: AC/VC+ Rate Set: 20 bmp Vt Ordered: 480 mL Pressure Support: 0 cmH20 PEEP/CPAP: 8 FiO2 : 45 % PHYSICAL EXAM: General Appearance: []WDWN [x]Obese []Cachectic []Thin []ill Skin: Temperature [x]Warm []Cool Rash []Yes [x]No Tattoo(s) []Yes [x]No HEENT: Pupils round and react [x]Yes []No Sclera []Icteric [x]Non-Icteric Conjunctiva []Injected [x]Non-Injected Pinnae [x]Normal []Other Dentitian [x][place] Teeth []Dentures []Poor dentition []Edentulous Oral Mucosa [x][place] [x]Moist []Dry Oral ETT [x]Present []Absent Neck: Trachea midline [x]Yes []No Thyromegaly []Yes [x]No Crepitus []Present [x]Absent Jvd []Present [x]Absent Lungs: []Clear []Crackles []Wheezes [x]Rhonchi Respiratory effort []Labored [x]Non-Labored Heart: Rate []Regular []Irregular [x]Tachycardia []Bradycardia Rhythm [x]Regular []Irregular Murmur []Present [x]Absent Peripheral Edema []Present [x]Absent Abdomen: [x]Soft Bowel Sounds [x]Present []Absent []Diminished []Tender [x]Non-Tender []Distended [x]Non-distended Hernia []Present []Absent Organomegaly []Present [x]Absent []Unable to assess due to size []Scar Extremities: Cyanosis []Present [x]Absent Capillary Refill [x]<3 sec []>3 sec CORDOVA ([x]RUE [x]RLE [x]LUE [x]LLE) Neurologic: TLINGIT & HAIDA []Yes [x]No Corneal reflexes []Present []Absent Plantar reflexes []Up []Down []Absent Withdraws to tactile []Yes []No Follows Commands []Yes [x]No []Unresponsive to verbal []Cranial nerves grossly intact []Sensation grossly intact Psych: Alert [x]yes []no Oriented []x0 []x1 []x2 []x3 Affect []Normal []Flat []Agitated []Anxious []Calm [x]Sedated []NAD BMP: Recent Labs 10/27/2033110/28/2035510/29/20350 NA 139 140 139 K 4.3 4.2 4.2 CL 104 106 107 CO2 31* 28 28 BUN 30* 32* 31* CREATININE 0.62 0.64 0.60 GLUCOSE 126* 146* 118* . Ionized Calcium: Lab Results Component Value Date IONCA 4.50 10/29/2020 IONCA 4.40 10/28/2020 Hepatic: Recent Labs 10/28/2035510/29/20350 AST 45 53* ALT 40 49 BILITOT 0.6 0.7 ALKPHOS 64 68 ABG: Recent Labs 10/29/20355 PHART 7.449 PO2ART 69.0* [id number] 39.1 NQU1GSZ 27.1* BEART 2.9 [id number] 94.3* CBC: Recent Labs 10/28/2034910/29/20350 WBC 8.0 10.4 HGB 10.7* 10.7* PLT 235 278 PROCALCITONIN: Recent Labs 10/27/20 0332 PROCAL 0.17* Films: CXR portable: Results for orders placed during the hospital encounter of 10/19/20 XR CHEST PORTABLE Narrative [facility]: [id number] Radiology ACCESSION EXAM DATE/TIME PROCEDURE ORDERING PROVIDER [id number] 10/29/2020 05:58 EST CR Chest Portable AMARILIS LUKE JEFFREY A CPT code 10095 Reason For Exam (CR Chest Portable) pneumonia Report PORTABLE CHEST: INDICATION: Pneumonia COMPARISON: 10/27/2020 Obtained at 0535 hours. A single portable AP radiograph of the chest was obtained. The heart is normal in size. The mediastinal silhouette is normal. Diffuse bilateral patchy infiltrates are present. There are no effusions. There is no pleural thickening. Arthritic changes of the spine and shoulders are present. The ET tube and NG tube are unchanged. A right internal jugular central venous catheter is present with the tip overlying the superior vena cava. IMPRESSION: Diffuse bilateral patchy infiltrates are present. 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 Respiratory Failure: Covid with secondary pneumonia, increased secretions with some blood tinge likely due to suction trauma, Add hypertonic aerosols, continue steroids ,aerosols and ceftriaxone through . 2. Acute encephalopathy: propofol is being weaned slowly without level of agitation as seen last few days 3. Covid: completed treatment 4. Below knee DVT: on treatment dose LMWH 5. Nutrition: on tube feeds 6. HTN/SVT: Bblocker Prophylaxis: Stress ulcer: [] PPI Agent [x] H2RA [] Sucralfate [] Other: VTE: [x] Enoxaparin [] SC Heparin [] SCD Full Code Excluding procedures, the total critical care time caring for this patient with life threatening, unstable organ failure, including direct patient contact, review of medical record, management of life support systems, review of data including imaging and labs, discussions with other team members, patient's family and physicians at least 33 minutes so far today. * Demetria Alford MD - 10/28/2020 7:50 AM EST Critical Care Progress Note 10/28/2020 7:55 AM Subjective: Admit Date: 10/19/2020 PCP: LAQUITA DING DO Chief Complaint Patient presents with Shortness of Breath Emesis Positive For Covid-19 Interval History: Pt with significant agitation and increased BP with wean of sedation Diet: DIET TUBE FEED CONTINUOUS/CYCLIC NPO; Low Calorie High Protein; 10; 35 Allergies:No Known Allergies Home Meds: Prior to Admission medications Medication Sig Start Date End Date Taking? Authorizing Provider atorvastatin (LIPITOR) 40 MG tablet Take 40 mg by mouth daily Yes Historical Provider, famotidine (PEPCID) 20 MG tablet Take 1 tablet by mouth 2 times daily 10/16/20 Fransisco Lopez MD Scheduled Meds: metoprolol tartrate 50 mg Per NG tube BID QUEtiapine 50 mg Per NG tube BID cefTRIAXone (ROCEPHIN) IV 2 g Intravenous Q24H sodium chloride flush 10 mL Intracatheter Q8H chlorhexidine 15 mL Mouth/Throat BID famotidine (PEPCID) injection 20 mg Intravenous BID dexamethasone 8 mg Intravenous Daily bisacodyl 10 mg Rectal BID enoxaparin 110 mg Subcutaneous Q12H polyethylene glycol 17 g Oral Daily sennosides-docusate sodium 2 tablet Oral BID sodium chloride flush 10 mL Intravenous 2 times per day promethazine 12.5 mg Intravenous Once ipratropium-albuterol 1 ampule Inhalation 4x daily aspirin 81 mg Oral Daily atorvastatin 40 mg Oral Nightly Vitamin D 2,000 Units Oral Daily Continuous Infusions: propofol 50 mcg/kg/min (10/28/20 0604) fentaNYL 100 mcg/hr (10/28/20 0556) Objective: Vitals: Temp (24hrs), Av.4 F (36.9 C), Min:98.1 F (36.7 C), Max:99 F (37.2 C) BP 107/64 Pulse 91 Temp 98.1 F (36.7 C) (Oral) Resp 27 Ht 6' (1.829 m) Wt 240 lb (108.9 kg) SpO2 98% BMI 32.55 kg/m CURRENT PULSE OXIMETRY: SpO2: 98 % 24HR PULSE OXIMETRY RANGE: SpO2 Av.3 % Min: 92 % Max: 100 % I/O: 10/27 0701 - 10/28 0700 In: 2218.1 [I.V.:1137.1] Out: 1675 [Urine:1675] CVP: Invasive Lines: PICC D# CVC D# Art Line D# ETT D# Ventilator Settings: Vent Mode: AC/VC+ Rate Set: 26 bmp Vt Ordered: 480 mL Pressure Support: 0 cmH20 PEEP/CPAP: 8 FiO2 : 45 % PHYSICAL EXAM: General Appearance: []WDWN [x]Obese []Cachectic []Thin []ill Skin: Temperature [x]Warm []Cool Rash []Yes [x]No Tattoo(s) []Yes [x]No HEENT: Pupils round and react [x]Yes []No Sclera []Icteric [x]Non-Icteric Conjunctiva []Injected [x]Non-Injected Pinnae [x]Normal []Other Dentitian [x][place] Teeth []Dentures []Poor dentition []Edentulous Oral Mucosa [x][place] [x]Moist []Dry Oral ETT [x]Present []Absent Neck: Trachea midline [x]Yes []No Thyromegaly []Yes [x]No Crepitus []Present [x]Absent Jvd []Present [x]Absent Lungs: []Clear []Crackles []Wheezes [x]Rhonchi few scattered Respiratory effort []Labored [x]Non-Labored has autopeep Heart: Rate [x]Regular []Irregular []Tachycardia []Bradycardia Rhythm [x]Regular []Irregular Murmur []Present [x]Absent Peripheral Edema []Present [x]Absent Abdomen: [x]Soft Bowel Sounds [x]Present []Absent []Diminished []Tender [x]Non-Tender []Distended [x]Non-distended Hernia []Present []Absent Organomegaly []Present [x]Absent []Unable to assess due to size []Scar Extremities: Cyanosis []Present [x]Absent Capillary Refill [x]<3 sec []>3 sec CORDOVA ([x]RUE [x]RLE [x]LUE [x]LLE) Neurologic: TLINGIT & HAIDA []Yes [x]No Corneal reflexes []Present []Absent Plantar reflexes []Up []Down []Absent Withdraws to tactile [x]Yes []No Follows Commands []Yes [x]No []Unresponsive to verbal []Cranial nerves grossly intact []Sensation grossly intact Psych: Alert []yes [x]no Oriented []x0 []x1 []x2 []x3 Affect []Normal []Flat []Agitated []Anxious []Calm [x]Sedated []NAD BMP: Recent Labs 10/26/20 0406 10/27/2033110/28/20355 NA 137 139 140 K 3.9 4.3 4.2 CL 102 104 106 CO2 31* 31* 28 BUN 34* 30* 32* CREATININE 0.66 0.62 0.64 GLUCOSE 189* 126* 146* . Ionized Calcium: Lab Results Component Value Date IONCA 4.40 10/28/2020 IONCA 4.40 10/27/2020 Hepatic: Recent Labs 10/27/2033110/28/20355 AST 41 45 ALT 29 40 BILITOT 0.7 0.6 ALKPHOS 61 64 ABG: Recent Labs 10/28/20352 PHART 7.455* PO2ART 66.3* [id number] 38.5 QQC0CZS 27.1* BEART 3.0 [id number] 93.8* CBC: Recent Labs 10/27/2033110/28/20349 WBC 7.2 8.0 HGB 10.5* 10.7* PLT 245 235 PROCALCITONIN: Recent Labs 10/27/20331 PROCAL 0.17* Films: CXR portable: Results for orders placed during the hospital encounter of 10/19/20 XR CHEST PORTABLE Narrative Patient Name: JOSEPH BROWN Diagnostic Radiology ACCESSION EXAM DATE/TIME PROCEDURE ORDERING PROVIDER [id number] 10/27/2020 05:35 EST CR Chest Portable MD ALFORD JAMES A CPT code 23978 Reason For Exam (CR Chest Portable) pneumonia, ETT position Report PORTABLE CHEST: INDICATION: Pneumonia COMPARISON: 10/24/2020 Obtained at 0425 hours. A single portable AP radiograph of the chest was obtained. The heart is normal in size. The mediastinal silhouette is normal. Diffuse bilateral ill-defined infiltrates are present. There is no significant interval change. No effusions are seen. There is no pleural thickening. Arthritic changes of the spine and shoulders are present. The ET tube and NG tube are unchanged. A right internal jugular central venous catheter is present with the tip overlying the superior vena cava. IMPRESSION: No change in the diffuse bilateral ill-defined infiltrates. Report Dictated on Workstation: [id number]-REMOTE --- Final --- Dictating Physician: DO CID ALFRED Signed Date and Time: 10/27/2020 4:45 am Signed by: DO CID ALFRED Transcribed Date and Time: 10/27/2020 5:35 Problem list of patient: Patient Active Problem List Diagnosis Epididymal cyst BPH without obstruction/lower urinary tract symptoms Syncope SVT (supraventricular tachycardia) (HCC) Pneumonia due to COVID-19 virus ARDS (adult respiratory distress syndrome) (HCC) Assessment and Plan: 1. Respiratory Failure: Covid with secondary strep pneumonia, tolerating 8 of peep and 50 %. Has not tolerated wean of sedation to perform SBT. Continue steroids, aerosols, and empiric Atbx. 2. Acute encephalopathy: seroquel started, will increase dose. Wean sedation as able. 3. Covid: completed remdesivir, on decadron, inflammatory markers trending down. 4. Anemia: no active bleeding 5. Nutrition: on tube feeds 6. Below knee DVT: on treatment dose LMWH 7. HTN/SVT: BB started Prophylaxis: Stress ulcer: [] PPI Agent [x] H2RA [] Sucralfate [] Other: VTE: [x] Enoxaparin [] SC Heparin [] SCD Full Code Discussed with , Katja Excluding procedures, the total critical care time caring for this patient with life threatening, unstable organ failure, including direct patient contact, review of medical record, management of life support systems, review of data including imaging and labs, discussions with other team members, patient's family and physicians at least 40 minutes so far today. * Malorie Cho RD, LD - 10/27/2020 5:27 PM EST Comprehensive Nutrition Assessment Type and Reason for Visit: Reassess(attempted sbt - pt placed back on sedation- requires increased diprivan) Nutrition Recommendations/Plan: 1)suggest to continue current regimen-NOW -AT GOAL- LOW CALORIE HIGH PROTEIN- VITAL HI PRO at 35 cc/hr(840 brett,73 gm pro, 702 cc free water)+ diprivan at 32.7 cc/hr (863) for total 1703 brett, 73 gm pro/day or 15.5 brett,.7 gm pro/kg cbw or 21 brett and .9 gm pro/kg ibw 2)monitor for diprivan rate change 3) PLEASE OBTAIN ACTUAL WT FEASIBLE 4)Monitor labs, status, to reassess. Follow up at least weekly Nutrition Assessment: 64 yo male requires increased sedation -+ covid and has strep infection, multilple lower ext dvts, has anemia , htn, tachy . diprivan doulbed to 32.7 cc /hr ( 863 brett)from 16.3 cc /hr (430 brett)-tf at goal rate Malnutrition Assessment: Malnutrition Status: Insufficient data Context: Acute Illness Findings of the 6 clinical characteristics of malnutrition: Energy Intake: 7 - 50% or less of estimated energy requirements for 5 or more days Weight Loss: Unable to assess Body Fat Loss: Unable to assess Muscle Mass Loss: Unable to assess Fluid Accumulation: No significant fluid accumulation Engineering Secretary Strength: Not Performed Estimated Daily Nutrient Needs: Energy (kcal): 1200- 1525; Weight Used for Energy Requirements: Current Protein (g): 81-115; Weight Used for Protein Requirements: Dinosaur(1-1.4) Fluid (ml/day): per md; Method Used for Fluid Requirements: 1 ml/kcal Nutrition Related Findings: 10/27 bm ,ketty today, bun 30, gfr>90,alb 2.9 no edema,hgb 10.5 Wounds: None(db 13) Current Nutrition Therapies: Current Tube Feeding (TF) Orders: Feeding Route: Orogastric Formula: Low Calorie, High Protein Schedule: Continuous Additives/Modulars: Water Flushes: per rn Current TF & Flush Orders Provides: vital hi pro at 35 cc/hr(840 brett,73 gm pro, 702 cc free water)+ diprivan at 32.7 cc/hr (863) for total 1703 brett, 73 gm pro/day or 15.5 brett,.7 gm pro/kg cbw or 21 brett and .9 gm pro/kg ibw Goal TF & Flush Orders Provides: as above, varying rates diprivan - current regimen acceptable Anthropometric Measures: Height: 6' (182.9 cm) Current Body Weight: 240 lb (108.9 kg)(no new wt) Admission Body Weight: Usual Body Weight: 240 lb (108.9 kg) Dinosaur Body Weight: 178 lbs; % Dinosaur Body Weight 134.8 % BMI: 32.5 Adjusted Body Weight: ; Adjusted BMI: BMI Categories: Obese Class 1 (BMI 30.0-34.9) Nutrition Diagnosis: Altered GI function related to catabolic illness, impaired respiratory function(covid, strep) as evidenced by nutrition support - enteral nutrition, other (comment)(on diprivan) Altered nutrition-related lab values related to cardiac dysfunction, other (comment)(steroids , vitd defic) as evidenced by other (comment), lab values(vit d replacement) Nutrition Interventions: Food and/or Nutrient Delivery: Continue Current Tube Feeding Nutrition Education/Counseling: No recommendation at this time Coordination of Nutrition Care: Continue to monitor while inpatient Goals: Pt will receive/tolerate adequate nutrition via EN. Nutrition Monitoring and Evaluation: Behavioral-Environmental Outcomes: None Identified Food/Nutrient Intake Outcomes: Enteral Nutrition Intake/Tolerance Physical Signs/Symptoms Outcomes: Biochemical Data, GI Status, Fluid Status or Edema, Hemodynamic Status, Nutrition Focused Physical Findings, Skin, Weight Discharge Planning: Too soon to determine Contact: [phone] * Demetria Alford MD - 10/27/2020 7:30 AM EST Critical Care Progress Note 10/27/2020 8:56 AM Subjective: Admit Date: 10/19/2020 PCP: LAQUITA DING DO Chief Complaint Patient presents with Shortness of Breath Emesis Positive For Covid-19 Interval History: Pt without significant event last evening. Now down to PEEP of 8 and trialing offsedation for SBT. Pt is tachypneic. Diet: DIET TUBE FEED CONTINUOUS/CYCLIC NPO; Low Calorie High Protein; 10; 35 Allergies:No Known Allergies Home Meds: Prior to Admission medications Medication Sig Start Date End Date Taking? Authorizing Provider atorvastatin (LIPITOR) 40 MG tablet Take 40 mg by mouth daily Yes Historical Provider, famotidine (PEPCID) 20 MG tablet Take 1 tablet by mouth 2 times daily 10/16/20 Fransisco Lopez MD Scheduled Meds: cefTRIAXone (ROCEPHIN) IV 2 g Intravenous Q24H sodium chloride flush 10 mL Intracatheter Q8H chlorhexidine 15 mL Mouth/Throat BID famotidine (PEPCID) injection 20 mg Intravenous BID dexamethasone 8 mg Intravenous Daily bisacodyl 10 mg Rectal BID enoxaparin 110 mg Subcutaneous Q12H polyethylene glycol 17 g Oral Daily sennosides-docusate sodium 2 tablet Oral BID sodium chloride flush 10 mL Intravenous 2 times per day promethazine 12.5 mg Intravenous Once ipratropium-albuterol 1 ampule Inhalation 4x daily aspirin 81 mg Oral Daily atorvastatin 40 mg Oral Nightly Vitamin D 2,000 Units Oral Daily Continuous Infusions: propofol 40 mcg/kg/min (10/27/20 0641) fentaNYL 70 mcg/hr (10/27/20 0616) Objective: Vitals: Temp (24hrs), Av.9 F (37.2 C), Min:98 F (36.7 C), Max:99.5 F (37.5 C) BP (!) 132/94 Pulse 114 Temp 99 F (37.2 C) (Oral) Resp 25 Ht 6' (1.829 m) Wt 240 lb (108.9 kg) SpO2 98% BMI 32.55 kg/m CURRENT PULSE OXIMETRY: SpO2: 98 % 24HR PULSE OXIMETRY RANGE: SpO2 Av.4 % Min: 92 % Max: 99 % I/O: 10/26 700 - 10/27 699 In: 4082.1 [I.V.:1101.1] Out: 1879 [Urine:1879] CVP: Invasive Lines: PICC D# CVC D# Art Line D# ETT D# Ventilator Settings: Vent Mode: AC/VC+ Rate Set: 26 bmp Vt Ordered: 480 mL Pressure Support: 0 cmH20 PEEP/CPAP: 8 FiO2 : 50 % PHYSICAL EXAM: General Appearance: []WDWN [x]Obese []Cachectic []Thin []ill Skin: Temperature [x]Warm []Cool Rash []Yes [x]No Tattoo(s) []Yes [x]No HEENT: Pupils round and react [x]Yes []No Sclera []Icteric [x]Non-Icteric Conjunctiva []Injected [x]Non-Injected Pinnae [x]Normal []Other Dentitian [x][place] Teeth []Dentures []Poor dentition []Edentulous Oral Mucosa [x][place] [x]Moist []Dry Oral ETT [x]Present []Absent Neck: Trachea midline [x]Yes []No Thyromegaly []Yes [x]No Crepitus []Present [x]Absent Jvd []Present [x]Absent Lungs: []Clear []Crackles []Wheezes [x]Rhonchi scattered Respiratory effort []Labored [x]Non-Labored Heart: Rate []Regular []Irregular [x]Tachycardia []Bradycardia Rhythm [x]Regular []Irregular Murmur []Present [x]Absent Peripheral Edema []Present [x]Absent Abdomen: [x]Soft Bowel Sounds [x]Present []Absent []Diminished []Tender [x]Non-Tender []Distended [x]Non-distended Hernia []Present []Absent Organomegaly []Present [x]Absent []Unable to assess due to size []Scar Extremities: Cyanosis []Present [x]Absent Capillary Refill [x]<3 sec []>3 sec CORDOVA ([x]RUE [x]RLE [x]LUE [x]LLE) Neurologic: TLINGIT & HAIDA []Yes [x]No Corneal reflexes []Present []Absent Plantar reflexes []Up []Down []Absent Withdraws to tactile [x]Yes []No Follows Commands []Yes [x]No []Unresponsive to verbal []Cranial nerves grossly intact []Sensation grossly intact Psych: Alert []yes []no Oriented []x0 []x1 []x2 []x3 Affect []Normal []Flat []Agitated []Anxious []Calm [x]Sedated []NAD BMP: Recent Labs 10/25/20 0430 10/26/206 10/27/20 033 NA 137 137 139 K 3.9 3.9 4.3 CL 102 102 104 CO2 31* 31* 31* BUN 32* 34* 30* CREATININE 0.74 0.66 0.62 GLUCOSE 153* 189* 126* . Ionized Calcium: Lab Results Component Value Date IONCA 4.40 10/27/2020 IONCA 4.40 10/26/2020 Hepatic: Recent Labs 10/26/206 10/27/20331 AST 36 41 ALT 23 29 BILITOT 0.6 0.7 ALKPHOS 59 61 ABG: Recent Labs 10/27/20435 PHART 7.455* PO2ART 70.2* [id number] 39.5 ZSE2LIV 27.7* BEART 3.6* [id number] 94.7* CBC: Recent Labs 10/26/206 10/27/20331 WBC 7.1 7.2 HGB 9.7* 10.5* PLT 190 245 Recent Labs 10/24/202024 LABGRAM Moderate polymorphonuclear cells/lpf. Few epithelial cells/lpf. Many gram positive cocci in pairs and chains. Films: CXR portable: Results for orders placed during the hospital encounter of 10/19/20 XR CHEST PORTABLE Narrative Patient Name: JOSEPH BROWN Diagnostic Radiology ACCESSION EXAM DATE/TIME PROCEDURE ORDERING PROVIDER [id number] 10/27/2020 05:35 EST CR Chest Portable MD ALFORD JAMES A CPT code 55589 Reason For Exam (CR Chest Portable) pneumonia, ETT position Report PORTABLE CHEST: INDICATION: Pneumonia COMPARISON: 10/24/2020 Obtained at 0425 hours. A single portable AP radiograph of the chest was obtained. The heart is normal in size. The mediastinal silhouette is normal. Diffuse bilateral ill-defined infiltrates are present. There is no significant interval change. No effusions are seen. There is no pleural thickening. Arthritic changes of the spine and shoulders are present. The ET tube and NG tube are unchanged. A right internal jugular central venous catheter is present with the tip overlying the superior vena cava. IMPRESSION: No change in the diffuse bilateral ill-defined infiltrates. Report Dictated on Workstation: [id number] --- Final --- Dictating Physician: DO CID ALFRED Signed Date and Time: 10/27/2020 4:45 am Signed by: DO CID ALFRED Transcribed Date and Time: 10/27/2020 5:35 Problem list of patient: Patient Active Problem List Diagnosis Epididymal cyst BPH without obstruction/lower urinary tract symptoms Syncope SVT (supraventricular tachycardia) ([facility]) Pneumonia due to COVID-19 virus ARDS (adult respiratory distress syndrome) ([facility]) Assessment and Plan: 1. Respiratory Failure: Covid, ARDS, secondary Strep infection. Vent aerosols, Atbx, steroids. Pt now on 8 PEEP and attempting SBT. 2. Covid 19: completed remdesivir, remains on steroids, inflammatory markers are trending down. 3. Anemia: no evidence of active bleeding 4. Below knee DVT: multiple, on treatment dose LMWH 5. Nutrition:on tube feeds 6. HTN, tachycardia: add metoprolol Prophylaxis: Stress ulcer: [] PPI Agent [x] H2RA [] Sucralfate [] Other: VTE: [x] Enoxaparin [] SC Heparin [] SCD Full Code Discussed with , Katja, Excluding procedures, the total critical care time caring for this patient with life threatening, unstable organ failure, including direct patient contact, review of medical record, management of life support systems, review of data including imaging and labs, discussions with other team members, patient's family and physicians at least 42 minutes so far today. * Demetria Alford MD - 10/26/2020 11:51 AM EST Critical Care Progress Note 10/26/2020 11:51 AM Subjective: Admit Date: 10/19/2020 PCP: LAQUITA DING DO Chief Complaint Patient presents with Shortness of Breath Emesis Positive For Covid-19 Interval History: Pt intubated on vent. Sedated but is arousable. Diet: DIET TUBE FEED CONTINUOUS/CYCLIC NPO; Low Calorie High Protein; 10; 35 Allergies:No Known Allergies Home Meds: Prior to Admission medications Medication Sig Start Date End Date Taking? Authorizing Provider atorvastatin (LIPITOR) 40 MG tablet Take 40 mg by mouth daily Yes Historical Provider, famotidine (PEPCID) 20 MG tablet Take 1 tablet by mouth 2 times daily 10/16/20 Fransisco Lopez MD Scheduled Meds: cefTRIAXone (ROCEPHIN) IV 2 g Intravenous Q24H vancomycin 1,750 mg Intravenous Q12H sodium chloride flush 10 mL Intracatheter Q8H chlorhexidine 15 mL Mouth/Throat BID famotidine (PEPCID) injection 20 mg Intravenous BID dexamethasone 8 mg Intravenous Daily bisacodyl 10 mg Rectal BID enoxaparin 110 mg Subcutaneous Q12H polyethylene glycol 17 g Oral Daily sennosides-docusate sodium 2 tablet Oral BID sodium chloride flush 10 mL Intravenous 2 times per day promethazine 12.5 mg Intravenous Once ipratropium-albuterol 1 ampule Inhalation 4x daily aspirin 81 mg Oral Daily atorvastatin 40 mg Oral Nightly Vitamin D 2,000 Units Oral Daily Continuous Infusions: propofol 50 mcg/kg/min (10/26/20 0309) fentaNYL 60 mcg/hr (10/26/20 0404) Objective: Vitals: Temp (24hrs), Av.7 F (37.1 C), Min:98.1 F (36.7 C), Max:99.5 F (37.5 C) BP (!) 161/69 Pulse 110 Temp 99.5 F (37.5 C) (Oral) Resp (!) 7 Ht 6' (1.829 m) Wt 240 lb (108.9 kg) SpO2 94% BMI 32.55 kg/m CURRENT PULSE OXIMETRY: SpO2: 94 % 24HR PULSE OXIMETRY RANGE: SpO2 Av.3 % Min: 93 % Max: 98 % I/O: 10/25 0701 - 10/26 0700 In: 2492 [I.V.:1387] Out: 1720 [Urine:1720] CVP: Invasive Lines: PICC D# CVC D# Art Line D# ETT D# Ventilator Settings: Vent Mode: AC/VC+ Rate Set: 26 bmp Vt Ordered: 470 mL Pressure Support: 0 cmH20 PEEP/CPAP: 10 FiO2 : 50 % PHYSICAL EXAM: General Appearance: []WDWN [x]Obese []Cachectic []Thin []ill Skin: Temperature [x]Warm []Cool Rash []Yes [x]No Tattoo(s) []Yes [x]No HEENT: Pupils round and react [x]Yes []No Sclera []Icteric [x]Non-Icteric Conjunctiva []Injected [x]Non-Injected Pinnae [x]Normal []Other Dentitian [x][place] Teeth []Dentures []Poor dentition []Edentulous Oral Mucosa [x][place] [x]Moist []Dry Oral ETT []Present [x]Absent Neck: Trachea midline [x]Yes []No Thyromegaly []Yes [x]No Crepitus []Present [x]Absent Jvd []Present [x]Absent Lungs: []Clear []Crackles []Wheezes [x]Rhonchi Respiratory effort []Labored [x]Non-Labored Heart: Rate []Regular []Irregular [x]Tachycardia []Bradycardia Rhythm [x]Regular []Irregular Murmur []Present [x]Absent Peripheral Edema []Present [x]Absent Abdomen: [x]Soft Bowel Sounds [x]Present []Absent []Diminished []Tender [x]Non-Tender []Distended [x]Non-distended Hernia []Present []Absent Organomegaly []Present [x]Absent []Unable to assess due to size []Scar Extremities: Cyanosis []Present [x]Absent Capillary Refill [x]<3 sec []>3 sec CORDOVA ([x]RUE [x]RLE [x]LUE [x]LLE) Neurologic: TLINGIT & HAIDA []Yes [x]No Corneal reflexes []Present []Absent Plantar reflexes []Up []Down []Absent Withdraws to tactile []Yes []No Follows Commands [x]Yes []No []Unresponsive to verbal []Cranial nerves grossly intact []Sensation grossly intact Psych: Alert []yes [x]no Oriented []x0 []x1 []x2 []x3 Affect []Normal []Flat []Agitated []Anxious []Calm [x]Sedated []NAD BMP: Recent Labs 10/24/20 1113 10/25/20 0430 10/26/20 0406 NA 137 137 137 K 4.5 3.9 3.9 CL 101 102 102 CO2 29 31* 31* BUN 28* 32* 34* CREATININE 0.68 0.74 0.66 GLUCOSE 185* 153* 189* . Ionized Calcium: Lab Results Component Value Date IONCA 4.40 10/26/2020 IONCA 4.40 10/25/2020 Hepatic: Recent Labs 10/25/20 0430 10/26/20 0406 AST 41 36 ALT 25 23 BILITOT 1.0 0.6 ALKPHOS 72 59 ABG: Recent Labs 10/25/20 2327 PHART 7.493* PO2ART 66.0* [id number] 33.6* [id number] 25.8* BEART 2.7 [id number] 94.5* CBC: Recent Labs 10/25/20 0430 10/26/20 0406 WBC 10.0 7.1 HGB 11.1* 9.7* PLT 224 190 PROCALCITONIN: Recent Labs 10/24/20 0505 PROCAL 0.35* Recent Labs 10/24/202024 LABGRAM Moderate polymorphonuclear cells/lpf. Few epithelial cells/lpf. Many gram positive cocci in pairs and chains. Films: CXR portable: Results for orders placed during the hospital encounter of 10/19/20 XR CHEST PORTABLE Narrative Patient Name: JOSEPH BROWN Diagnostic Radiology ACCESSION EXAM DATE/TIME PROCEDURE ORDERING PROVIDER [id number] 10/24/2020 05:26 EST CR Chest Portable AMARILIS JOHNSON AMBER A CPT code 30168 Reason For Exam (CR Chest Portable) Line placement Report PORTABLE CHEST 3:38 AM CLINICAL INDICATION: Respiratory distress TECHNIQUE: Portable AP COMPARISON: CTA from five days ago FINDINGS: Exam quality: EKG leads obscure small portions of the chest. Heart size is normal. Endotracheal tube is noted with its tip 4.5 cm above the enzo. Scattered ill-defined groundglass type opacities are noted throughout the lungs. Costophrenic angles are sharp. The osseous structures are unremarkable. IMPRESSION: Endotracheal tube in adequate position PORTABLE CHEST 3:42 AM CLINICAL INDICATION: Nasogastric tube placement. TECHNIQUE: Portable AP COMPARISON: Four minutes prior FINDINGS: Endotracheal tube is noted along with a nasogastric tube. The tube extends into the region of the gastric body. Extensive groundglass opacities are again noted. IMPRESSION: Nasogastric tube in position PORTABLE CHEST 5:03 AM CLINICAL INDICATION: Central venous catheter placement TECHNIQUE: Portable AP COMPARISON: 75 minutes prior FINDINGS: Diagnostic Radiology Report Endotracheal tube is noted along the nasogastric tube. A new right jugular venous catheter is noted with its tip in the region of the superior vena cava. There is no pneumothorax. Extensive groundglass type opacities are again noted. IMPRESSION: Central venous catheter in adequate position without pneumothorax Report Dictated on Workstation: [id number] --- Final --- Dictating Physician: MD CUNNINGHAM JEFFREY Signed Date and Time: 10/24/2020 6:00 am Signed by: MD CUNNINGHAM JEFFREY Transcribed Date and Time: 10/24/2020 6:01 Problem list of patient: Patient Active Problem List Diagnosis Epididymal cyst BPH without obstruction/lower urinary tract symptoms Syncope SVT (supraventricular tachycardia) ([facility]) Pneumonia due to COVID-19 virus ARDS (adult respiratory distress syndrome) ([facility]) Assessment and Plan: 1. Respiratory Failure: Covid with secondary Strep infection. Vent , aerosols, Atbx, steroids. Currently on 10 PEEP and FiO2 of 50 %. 2. Covid 19: completed remdesivir, remains on steroids, Inflammatory markers are down. 3. Below knee DVT: multiple, on enoxaparin full dose 4. Anemia: no active bleeding 5. Nutrition: on tube feeds Prophylaxis: Stress ulcer: [] PPI Agent [x] H2RA [] Sucralfate [] Other: VTE: [x] Enoxaparin [] SC Heparin [] SCD Discussed with , Katja, Full Code Excluding procedures, the total critical care time caring for this patient with life threatening, unstable organ failure, including direct patient contact, review of medical record, management of life support systems, review of data including imaging and labs, discussions with other team members, patient's family and physicians at least 40 minutes so far today. * Eulalia Giron RCP - 10/26/2020 6:30 AM EST 10/26/20 0600 Spontaneous Breathing Trial (SBT) RT Doc Contraindications to SBT? PEEP > 10 cm H2O (RASS -3) * Issa Conteh MD - 10/25/2020 11:34 AM EST Critical Care Progress Note 10/25/2020 11:35 AM Subjective: Admit Date: 10/19/2020 PCP: LAQUITA DING, Interval History: SpO2 and pO2 low/stable on 50% FiO2 and PEEP 10. Fever yesterday morning but none since. Diet: DIET TUBE FEED CONTINUOUS/CYCLIC NPO; Low Calorie High Protein; 10; 35 Medications: Scheduled Meds: cefTRIAXone (ROCEPHIN) IV 2 g Intravenous Q24H vancomycin 1,750 mg Intravenous Q12H sodium chloride flush 10 mL Intracatheter Q8H chlorhexidine 15 mL Mouth/Throat BID famotidine (PEPCID) injection 20 mg Intravenous BID dexamethasone 8 mg Intravenous Daily bisacodyl 10 mg Rectal BID enoxaparin 110 mg Subcutaneous Q12H polyethylene glycol 17 g Oral Daily sennosides-docusate sodium 2 tablet Oral BID sodium chloride flush 10 mL Intravenous 2 times per day promethazine 12.5 mg Intravenous Once ipratropium-albuterol 1 ampule Inhalation 4x daily aspirin 81 mg Oral Daily atorvastatin 40 mg Oral Nightly Vitamin D 2,000 Units Oral Daily Continuous Infusions: propofol 50 mcg/kg/min (10/25/20 0910) fentaNYL 200 mcg/hr (10/25/20 1114) Objective: Vitals: Temp (24hrs), Av.4 F (37.4 C), Min:98.7 F (37.1 C), Max:100.5 F (38.1 C) BP 111/61 Pulse 82 Temp 99.7 F (37.6 C) (Oral) Resp 27 Ht 6' (1.829 m) Wt 240 lb (108.9 kg) SpO2 93% BMI 32.55 kg/m I/O: 10/24 0701 - 10/25 07 In: 2168 [I.V.:4] Out: 3590 [Urine:3530] CVP: Invasive Lines: CVC D#1 Art Line D#1 ETT D#1 Ventilator Settings: Vent Mode: AC/VC+ Rate Set: 26 bmp Vt Ordered: 470 mL Pressure Support: 0 cmH20 PEEP/CPAP: 10 FiO2 : 50 % Physical Exam General Appearance: []WDWN []Obese []Cachectic []Thin []ill Skin: Temperature []Warm []Cool / Rash []Yes []No / Tattoo(s) []Yes []No Heent: Pupils round and react []Yes []No Sclera []Icteric []Non-Icteric Conjunctiva []Injected []Non-Injected / Pinnae []Normal []Other/ Dentitian [][place] Teeth []Dentures Oral Mucosa [][place] []Moist []Dry/ Oral ETT []Present []Absent Neck: Trachea midline []Yes []No/ Thyromegaly []Yes []No/ Crepitus []Present []Absent /Jvd []Present []Absent Lungs: []Clear []Crackles []Wheezes []Rhonchi / Respiratory effort []Labored []Non-Labored Heart: []RRR []Irregularly Irregular []murmur present []murmur absent/ Peripheral Edema []Absent []Present Abdomen: []Soft Bowel Sounds []Present []Absent []Diminished []Hyperactive []Hypoactive []Tender []Non-Tender []Distended []Non-distended / Hernia []Present []Absent / Organomegaly []Absent []Present/ []Scar Extremities: Cyanosis []Present []Absent/ CORDOVA ([]RUE []RLE []LUE []LLE) Neurologic: TLINGIT & HAIDA []Yes []No Corneal reflexes []Present []Absent / Plantar reflexes []Up []Down []Absent / Withdraws to tactile []Yes []No/ Follows Commands []Yes []No []Unresponsive to verbal Psych: Alert []yes []no Oriented []x0 []x1 []x2 []x3 / Affect []Normal []Flat []Aggitated []Calm []Sedated []NAD BMP: Recent Labs 10/24/20 0505 10/24/20 1113 10/25/20 0430 NA 139 137 137 K 4.6 4.5 3.9 CL 103 101 102 CO2 29 29 31* BUN 26* 28* 32* CREATININE 0.69 0.68 0.74 GLUCOSE 141* 185* 153* . Ionized Calcium: Lab Results Component Value Date IONCA 4.40 10/25/2020 IONCA 4.40 10/24/2020 Hepatic: Recent Labs 10/24/20 0505 10/25/20 0430 AST 54* 41 ALT 35 25 BILITOT 1.3 1.0 ALKPHOS 81 72 Troponin: No results for input(s): TROPONINI in the last 72 hours. Lactate: No results found for: LACTA ABG: Recent Labs 10/24/20 0505 10/25/20 0430 PH 7.28* 7.47* CBC: Recent Labs 10/24/20 0505 10/25/20 0430 WBC 9.2 10.0 HGB 11.9* 11.1* PLT 199 224 PROCALCITONIN: Recent Labs 10/24/20 050 PROCAL 0.35* Recent Labs 10/24/202024 LABGRAM Moderate polymorphonuclear cells/lpf. Few epithelial cells/lpf. Many gram positive cocci in pairs and chains. Films: CXR portable: Results for orders placed during the hospital encounter of 10/19/20 XR CHEST PORTABLE Narrative Patient Name: JOSEPH BROWN Diagnostic Radiology ACCESSION EXAM DATE/TIME PROCEDURE ORDERING PROVIDER [id number] 10/24/2020 05:26 EST CR Chest Portable AMARILIS JOHNSON AMBER A CPT code 96328 Reason For Exam (CR Chest Portable) Line placement Report PORTABLE CHEST 3:38 AM CLINICAL INDICATION: Respiratory distress TECHNIQUE: Portable AP COMPARISON: CTA from five days ago FINDINGS: Exam quality: EKG leads obscure small portions of the chest. Heart size is normal. Endotracheal tube is noted with its tip 4.5 cm above the enzo. Scattered ill-defined groundglass type opacities are noted throughout the lungs. Costophrenic angles are sharp. The osseous structures are unremarkable. IMPRESSION: Endotracheal tube in adequate position PORTABLE CHEST 3:42 AM CLINICAL INDICATION: Nasogastric tube placement. TECHNIQUE: Portable AP COMPARISON: Four minutes prior FINDINGS: Endotracheal tube is noted along with a nasogastric tube. The tube extends into the region of the gastric body. Extensive groundglass opacities are again noted. IMPRESSION: Nasogastric tube in position PORTABLE CHEST 5:03 AM CLINICAL INDICATION: Central venous catheter placement TECHNIQUE: Portable AP COMPARISON: 75 minutes prior FINDINGS: Diagnostic Radiology Report Endotracheal tube is noted along the nasogastric tube. A new right jugular venous catheter is noted with its tip in the region of the superior vena cava. There is no pneumothorax. Extensive groundglass type opacities are again noted. IMPRESSION: Central venous catheter in adequate position without pneumothorax Report Dictated on Workstation: [id number] --- Final --- Dictating Physician: MD CUNNINGHAM JEFFREY Signed Date and Time: 10/24/2020 6:00 am Signed by: MD CUNNINGHAM JEFFREY Transcribed Date and Time: 10/24/2020 6:01 A: 1. Acute hypoxic and hypercapnic respiratory failure 2. COVID-19 3. Below knee DVTs 4. GPC on respiratory culture 5. Small pericardial effusion P: 1. Current vent settings. Not a candidate for SBT at this point. Reprone if oxygenation declines. 2. Start vanco/rocephin pending respiratory culture results. Check procal tomorrow 3. Treatment dose lovenox due to abrupt worsening in oxygen and below knee DVTs 4. Decrease lab frequency 5. Daughter/ updated. Prophylaxis: Stress ulcer: [] PPI Agent [] H2RA [] Sucralfate [] Other: VTE: [x] Enoxaparin [] SC Heparin [] SCD Total critical care time caring for this patient with life threatening, unstable organ failure, including direct patient contact, management of life support systems, review of data including imaging and labs, discussions with other team members and physicians at least 35 minutes so far today, excluding procedures. Full Code * Eulalia Giron RCP - 10/25/2020 6:09 AM EST 10/25/20 0600 Spontaneous Breathing Trial (SBT) RT Doc Contraindications to SBT? PEEP > 10 cm H2O (RASS +2) * Sidney Dietrich MD - 10/24/2020 11:33 AM EST CARDIOLOGY PROGRESS NOTE Chart and interval events reviewed. SUBJECTIVE: Joseph Brown states . He cannot communicate because he is intubated and sedated. The Intensive Care Unit team was kind enough to turn him from a prone position to a back supine position for the echocardiogram. SCHEDULED MEDICATIONS: sodium chloride flush 10 mL Intracatheter Q8H chlorhexidine 15 mL Mouth/Throat BID famotidine (PEPCID) injection 20 mg Intravenous BID dexamethasone 8 mg Intravenous Daily bisacodyl 10 mg Rectal BID polyethylene glycol 17 g Oral Daily sennosides-docusate sodium 2 tablet Oral BID sodium chloride flush 10 mL Intravenous 2 times per day promethazine 12.5 mg Intravenous Once enoxaparin 40 mg Subcutaneous Daily ipratropium-albuterol 1 ampule Inhalation 4x daily aspirin 81 mg Oral Daily atorvastatin 40 mg Oral Nightly Vitamin D 2,000 Units Oral Daily REVIEW OF SYSTEMS: VITAL SIGNS: BP 128/66 Pulse 114 Temp 99.4 F (37.4 C) (Oral) Resp 21 Ht 6' (1.829 m) Wt 240 lb (108.9 kg) SpO2 99% BMI 32.55 kg/m No data found. PHYSICAL EXAMINATION: General appearance: well nourished, alert, no acute distress HENT: Mucous membranes moist. Neck supple, no JVD Lungs: Lungs to auscultation bilaterally. No retractions or use of accessory muscles. No ronchi, rales. Heart: normal S1 and S2, no S3, no murmur, gallop or rub Extremities: edema. No cyanosis or clubbing noted to the nails. Neuro: Intubated and sedated. Data: Scheduled Meds: Reviewed Continuous Infusions: cisatracurium (NIMBEX) infusion 2.5 mcg/kg/min (10/24/20 0848) propofol 35 mcg/kg/min (10/24/20 1055) dexmedetomidine Stopped (10/24/20 0603) Intake/Output Summary (Last 24 hours) at 10/24/2020 1134 Last data filed at 10/24/2020 1103 Gross per 24 hour Intake 2152 ml Output 4160 ml Net -2008 ml CBC: Recent Labs 10/23/20 0427 10/24/20 0505 WBC 9.0 9.2 HGB 12.5* 11.9* HCT 37.2* 35.7* PLT 314 199 BMP: Recent Labs 10/23/20 0427 10/24/20 0505 NA 138 139 K 4.7 4.6 CL 104 103 CO2 27 29 BUN 24* 26* CREATININE 0.72 0.69 ABGs: Lab Results Component Value Date PH 7.28 10/24/2020 INR: No results for input(s): INR in the last 72 hours. TSH: Lab Results Component Value Date TSH 0.466 08/06/2017 Hemoglobin A1C: No components found for: HGBA1C Lipid Profile: Lab Results Component Value Date TRIG 156 08/08/2017 HDL 58 08/08/2017 LDLCALC 140 01/23/2016 CHOL 242 08/08/2017 CHOL 212 01/23/2016 No results found for: NTPROBNP Cardiac Injury Profile: No results found for: CKTOTAL, CKMB, CKMBINDEX TROPONIN: Lab Results Component Value Date/Time TROPONINI 0.601 (H) 10/19/2020 08:47 PM TROPONINI 0.726 (H) 10/19/2020 05:09 PM TROPONINI 0.922 (H) 10/19/2020 01:55 PM EKG: Done sinus rhythm, early transition, otherwise normal from October 19., personally reviewed: TELE. Personally reviewed: Echo: See Report His arterial line and rhythm strip showed no evidence of pulsus paradoxicus or electrical alternatehands IMPRESSIONS: Active Problems: Pneumonia due to COVID-19 virus ARDS (adult respiratory distress syndrome) (HCC) Resolved Problems: * No resolved hospital problems. * RECOMMENDATIONS: I performed a bedside hand-held [id number]-ic-fpnz echocardiogram which showed normal RV and LV function. I could not see any pericardial fluid posteriorly but there may be a small pericardial effusion anteriorly. My main concern was that the chest CT had shown a small to him moderate size pericardial effusion when he first came in the hospital. I wanted to make sure that he did not have a large pericardial effusion that may be contributing to some of his decompensation. He does not in both RV and LV function and look normal. As we stated before, his troponin abnormalities are probably related to his coronavirus pneumonia. The elevation of troponins do not require any specific treatment but do correlate with a worse prognosis. His supportive care will continue Sidney Dietrich MD * Issa Conteh MD - 10/24/2020 6:53 AM EST Critical Care Progress Note 10/24/2020 6:53 AM Subjective: Admit Date: 10/19/2020 PCP: LAQUITA DING DO Interval History: Pt with escalating tachypnea and WOB. Intubated earlier this AM. Diet: No diet orders on file Medications: Scheduled Meds: sodium chloride flush 10 mL Intracatheter Q8H dexamethasone 6 mg Intravenous Daily chlorhexidine 15 mL Mouth/Throat BID famotidine (PEPCID) injection 20 mg Intravenous BID albumin human 25 g Intravenous Once albumin human polyethylene glycol 17 g Oral Daily sennosides-docusate sodium 2 tablet Oral BID sodium chloride flush 10 mL Intravenous 2 times per day promethazine 12.5 mg Intravenous Once enoxaparin 40 mg Subcutaneous Daily ipratropium-albuterol 1 ampule Inhalation 4x daily aspirin 81 mg Oral Daily atorvastatin 40 mg Oral Nightly sodium chloride flush 10 mL Intravenous 2 times per day Vitamin D 2,000 Units Oral Daily Continuous Infusions: cisatracurium (NIMBEX) infusion 3 mcg/kg/min (10/24/20631) propofol 30 mcg/kg/min (10/24/20414) dexmedetomidine Stopped (10/24/20602) Objective: Vitals: Temp (24hrs), Av.2 F (37.3 C), Min:97.6 F (36.4 C), Max:101.1 F (38.4 C) BP (!) 151/81 Pulse 106 Temp 97.6 F (36.4 C) (Axillary) Resp 13 Ht 6' (1.829 m) Wt 240 lb(108.9 kg) SpO2 93% BMI 32.55 kg/m I/O: 10/23 0701 - 10/24 0700 In: 1492 [P.O.:700; I.V.:542] Out: 2325 [Urine:2325] CVP: Invasive Lines: CVC D#0 Art Line D#0 ETT D#0 Ventilator Settings: Vent Mode: AC/VC+ Rate Set: 24 bmp Vt Ordered: 470 mL Pressure Support: 0 cmH20 PEEP/CPAP: 16 FiO2 : 100 % General Appearance: [x]WDWN []Obese []Cachectic []Thin []ill Skin: Temperature [x]Warm []Cool / Rash []Yes [x]No / Tattoo(s) []Yes []No Heent: Pupils round and react [x]Yes []No Sclera []Icteric [x]Non-Icteric Conjunctiva []Injected [x]Non-Injected / Pinnae [x]Normal []Other/ Dentitian [x][place] Teeth []Dentures Oral Mucosa [x][place] [x]Moist []Dry/ Oral ETT [x]Present []Absent Neck: Trachea midline [x]Yes []No/ Thyromegaly []Yes []No/ Crepitus []Present [x]Absent /Jvd []Present []Absent Lungs: []Clear [x]Crackles []Wheezes []Rhonchi / Respiratory effort []Labored [x]Non-Labored Heart: [x]RRR []Irregularly Irregular []murmur present []murmur absent/ Peripheral Edema [x]Absent []Present Abdomen: [x]Soft Bowel Sounds []Present []Absent []Diminished []Hyperactive []Hypoactive []Tender []Non-Tender []Distended [x]Non-distended / Hernia []Present []Absent / Organomegaly [x]Absent []Present/ []Scar Extremities: Cyanosis []Present [x]Absent/ No clubbing Neurologic: TLINGIT & HAIDA []Yes []No Corneal reflexes []Present [x]Absent / Plantar reflexes []Up []Down []Absent / Withdraws to tactile []Yes [x]No/ Follows Commands []Yes [x]No []Unresponsive to verbal Psych: Alert []yes [x]no Oriented []x0 []x1 []x2 []x3 / Affect []Normal []Flat []Aggitated []Calm [x]Sedated []NAD BMP: Recent Labs 10/22/20 0338 10/23/20 0427 10/24/20 0505 NA 138 138 139 K 4.8 4.7 4.6 CL 106 104 103 CO2 26 27 29 BUN 24* 24* 26* CREATININE 0.60 0.72 0.69 GLUCOSE 161* 106* 141* . Ionized Calcium: Lab Results Component Value Date IONCA 4.40 10/24/2020 Hepatic: Recent Labs 10/23/20 0427 10/24/20 0505 AST 40 54* ALT 34 35 BILITOT 0.9 1.3 ALKPHOS 66 81 Troponin: No results for input(s): TROPONINI in the last 72 hours. Lactate: No results found for: LACTA ABG: Recent Labs 10/24/20 0505 PH 7.28* CBC: Recent Labs 10/23/20 0427 10/24/20 0505 WBC 9.0 9.2 HGB 12.5* 11.9* PLT 314 199 Films: CXR portable: Results for orders placed during the hospital encounter of 10/19/20 XR CHEST PORTABLE Narrative [facility]: [id number] ACCESSION EXAM DATE/TIME PROCEDURE ORDERING PROVIDER [id number] 10/24/2020 05:26 EST CR Chest Portable ACIERNO, MANAGER MACHINE, PILAR A CPT code 68797 Reason For Exam (CR Chest Portable) Line placement Report PORTABLE CHEST 3:38 AM CLINICAL INDICATION: Respiratory distress TECHNIQUE: Portable AP COMPARISON: CTA from five days ago FINDINGS: Exam quality: EKG leads obscure small portions of the chest. Heart size is normal. Endotracheal tube is noted with its tip 4.5 cm above the enzo. Scattered ill-defined groundglass type opacities are noted throughout the lungs. Costophrenic angles are sharp. The osseous structures are unremarkable. IMPRESSION: Endotracheal tube in adequate position PORTABLE CHEST 3:42 AM CLINICAL INDICATION: Nasogastric tube placement. TECHNIQUE: Portable AP COMPARISON: Four minutes prior FINDINGS: Endotracheal tube is noted along with a nasogastric tube. The tube extends into the region of the gastric body. Extensive groundglass opacities are again noted. IMPRESSION: Nasogastric tube in position PORTABLE CHEST 5:03 AM CLINICAL INDICATION: Central venous catheter placement TECHNIQUE: Portable AP COMPARISON: 75 minutes prior FINDINGS: Diagnostic Radiology Report Endotracheal tube is noted along the nasogastric tube. A new right jugular venous catheter is noted with its tip in the region of the superior vena cava. There is no pneumothorax. Extensive groundglass type opacities are again noted. IMPRESSION: Central venous catheter in adequate position without pneumothorax Report Dictated on Workstation: [id number] --- Final --- Dictating Physician: MD CUNNINGHAM JEFFREY Signed Date and Time: 10/24/2020 6:00 am Signed by: MD CUNNINGHAM JEFFREY Transcribed Date and Time: 10/24/2020 6:01 A: 1. Acute hypoxic and hypercapnic respiratory failure 2. COVID-19 3. Small pericardial effusion P: 1. Decrease PEEP to 15. Plat at 29. Current Vt (470ml) is at 6ml/kg - pt measured at 6ft. 2. Prone positioning 3. Follow up creat - likely repeat lasix dose 4. Start trickle TF and increase bowel regimen 5. CTA a few days ago negative for PE and consistent with GG/COVID. Defer full anti-coagulation, but will attempt to obtain leg dopplers. 6. Convert dex to IV for absorption 7. Serial ABG 8. Scheduled bronchodilators 9. Obtain respiratory culture if mucous present Prophylaxis: Stress ulcer: [] PPI Agent [x] H2RA [] Sucralfate [] Other: VTE: [x] Enoxaparin [] SC Heparin [] SCD Total critical care time caring for this patient with life threatening, unstable organ failure, including direct patient contact, management of life support systems, review of data including imaging and labs, discussions with other team members and physicians at least 35 minutes so far today, excluding procedures. Full Code * Issa Conteh MD - 10/23/2020 4:00 PM EST Critical Care Progress Note 10/23/2020 4:00 PM Subjective: Admit Date: 10/19/2020 PCP: LAQUITA DING DO Interval History: Restless at times. Spending long stretches on NIV - FiO2 and RR improved while on NIV. Getting breaks, but still not taking much PO. Diet: DIET GENERAL; Dietary Nutrition Supplements: Clear Liquid Oral Supplement Medications: Scheduled Meds: polyethylene glycol 17 g Oral Daily sennosides-docusate sodium 2 tablet Oral BID sodium chloride flush 10 mL Intravenous 2 times per day promethazine 12.5 mg Intravenous Once enoxaparin 40 mg Subcutaneous Daily ipratropium-albuterol 1 ampule Inhalation 4x daily aspirin 81 mg Oral Daily atorvastatin 40 mg Oral Nightly famotidine 20 mg Oral BID sodium chloride flush 10 mL Intravenous 2 times per day Vitamin D 2,000 Units Oral Daily dexamethasone 6 mg Oral Daily Continuous Infusions: dexmedetomidine 0.9 mcg/kg/hr (10/23/20 1457) Objective: Vitals: Temp (24hrs), Av.9 F (37.2 C), Min:97.5 F (36.4 C), Max:101.1 F (38.4 C) BP 137/82 Pulse 89 Temp 98.9 F (37.2 C) (Axillary) Resp 22 Ht 6' (1.829 m) Wt 240 lb (108.9 kg) SpO2 96% BMI 32.55 kg/m I/O: 10/22 0701 - 10/23 0700 In: 1374.1 [P.O.:1110; I.V.:264.1] Out: 3075 [Urine:3075] CVP: General Appearance: [x]WDWN []Obese []Cachectic []Thin []ill Skin: Temperature [x]Warm []Cool / Rash []Yes [x]No / Tattoo(s) []Yes []No Heent: Pupils round and react [x]Yes []No Sclera []Icteric [x]Non-Icteric Conjunctiva []Injected [x]Non-Injected / Pinnae [x]Normal []Other/ Dentitian [][place] Teeth []Dentures Oral Mucosa [x][place] [x]Moist []Dry/ Oral ETT [x]Present []Absent Neck: Trachea midline [x]Yes []No/ Thyromegaly []Yes []No/ Crepitus []Present [x]Absent /Jvd []Present []Absent Lungs: [x]Clear []Crackles []Wheezes []Rhonchi / Respiratory effort [x]Labored []Non-Labored Heart: [x]RRR []Irregularly Irregular []murmur present []murmur absent/ Peripheral Edema [x]Absent []Present Abdomen: [x]Soft Bowel Sounds []Present []Absent []Diminished []Hyperactive []Hypoactive []Tender []Non-Tender []Distended [x]Non-distended / Hernia []Present []Absent / Organomegaly [x]Absent []Present/ []Scar Extremities: Cyanosis []Present [x]Absent/ CORDOVA ([x]RUE [x]RLE [x]LUE [x]LLE) Neurologic: TLINGIT & HAIDA []Yes [x]No Corneal reflexes []Present []Absent / Plantar reflexes []Up []Down []Absent / Withdraws to tactile [x]Yes []No/ Follows Commands [x]Yes []No []Unresponsive to verbal Psych: Alert [x]yes []no Oriented []x0 []x1 []x2 []x3 / Affect +restless BMP: Recent Labs 10/21/20 04010/22/2033710/23/20426 NA 136 138 138 K 5.0 4.8 4.7 CL 106 106 104 CO2 25 26 27 BUN 25* 24* 24* CREATININE 0.68 0.60 0.72 GLUCOSE 148* 161* 106* . Ionized Calcium: No results found for: IONCA Hepatic: Recent Labs 10/22/2033710/23/20426 AST 44 40 ALT 30 34 BILITOT 0.6 0.9 ALKPHOS 58 66 Troponin: No results for input(s): TROPONINI in the last 72 hours. Lactate: No results found for: LACTA ABG: No results for input(s): PH, PCO2, PO2 in the last 72 hours. CBC: Recent Labs 10/22/20 0338 10/23/20 0427 WBC 7.8 9.0 HGB 11.4* 12.5* PLT 264 314 Films: CXR portable: Results for orders placed during the hospital encounter of 10/19/20 XR CHEST PORTABLE Narrative Patient Name: JOSEPH BROWN Diagnostic Radiology ACCESSION EXAM DATE/TIME PROCEDURE ORDERING PROVIDER [id number] 10/19/2020 09:34 EST CR Chest Portable [id number] -CANDELARIO LOMELI CPT code 75404 Reason For Exam (CR Chest Portable) COVID +, hypoxia Report Portable chest 10/19/2020: Clinical Information: Covid positive. Findings: A single AP portable view of the chest was obtained at 934 hours. Comparison was made to the prior study 10/16/2020. The trachea is midline. The heart is not enlarged. There are now evolving infiltrates bilaterally more pronounced on the right than the left. Report Dictated on --- Final --- Dictating Physician: MD VALERO RISA Signed Date and Time: 10/19/2020 10:00 am Signed by: MD VALERO RISA Transcribed Date and Time: 10/19/2020 10:01 A: 1. Acute hypoxic respiratory failure 2. COVID-19 3. Small pericardial effusion P: 1. Continue dex/remdisivir 2. Anxious at times, continue precedex. 3. HFNC/NIV 4. PO intake encouraged. 5. CXR in AM 6. updated Prophylaxis: Stress ulcer: [] PPI Agent [] H2RA [] Sucralfate [] Other: VTE: [x] Enoxaparin [] SC Heparin [] SCD Full Code * Malorie Cho RD, LD - 10/23/2020 3:17 PM EST Comprehensive Nutrition Assessment Type and Reason for Visit: Reassess(pt eating very limited amounts -wants Ensure clear between meals as not ordering meals) Nutrition Recommendations/Plan: 1) suggest to continue general diet as tolerated - pt eating little. Sending Ensure clear tid between meals- 240 brett, 8 gm pro/serving 2)suggest actual wt as feasible 3)may need alternate nutrition 4)Monitor labs, status, intakes, wts to reassess. Follow up at least weekly Nutrition Assessment: 64 yo male admitted with resp failure due to covid 19 . still with poor appetite - likes apple ensure clear - will modify and send between meals Malnutrition Assessment: Malnutrition Status: Insufficient data Context: Acute Illness Findings of the 6 clinical characteristics of malnutrition: Energy Intake: 7 - 50% or less of estimated energy requirements for 5 or more days Weight Loss: Unable to assess Body Fat Loss: Unable to assess Muscle Mass Loss: Unable to assess Fluid Accumulation: No significant fluid accumulation Engineering Secretary Strength: Not Performed Estimated Daily Nutrient Needs: Energy (kcal): 2780-6340; Weight Used for Energy Requirements: Current Protein (g): 81-115; Weight Used for Protein Requirements: Dinosaur Fluid (ml/day): ; Method Used for Fluid Requirements: 1 ml/kcal Nutrition Related Findings: no edema, strong leisure studies professor, 10/13 bm -ongoing nausea,alb 3.1, glu 161, vit d23, d- dimer 35.2,ferritin 552, neg 1.5 liters Wounds: None(db 19) Current Nutrition Therapies: DIET GENERAL; Dietary Nutrition Supplements: Clear Liquid Oral Supplement Anthropometric Measures: Height: 6' (182.9 cm) Current Body Weight: 240 lb (108.9 kg) Admission Body Weight: Usual Body Weight: 240 lb (108.9 kg) Dinosaur Body Weight: 178 lbs; % Dinosaur Body Weight 134.8 % BMI: 32.5 Adjusted Body Weight: ; Adjusted BMI: BMI Categories: Nutrition Diagnosis: Inadequate energy intake related to altered GI function, early satiety as evidenced by nausea, vomiting Altered nutrition-related lab values related to renal dysfunction, cardiac dysfunction, endocrine dysfuntion as evidenced by lab values Nutrition Interventions: Food and/or Nutrient Delivery: Continue Current Diet, Continue Oral Nutrition Supplement Nutrition Education/Counseling: No recommendation at this time Coordination of Nutrition Care: Continue to monitor while inpatient, Feeding Assistance/EnvironmentChange Goals: Pt will receive/tolerate adequate nutrition while labs trend towards baseline. Nutrition Monitoring and Evaluation: Behavioral-Environmental Outcomes: Other (Comment)(condition) Food/Nutrient Intake Outcomes: Food and Nutrient Intake, Supplement Intake Physical Signs/Symptoms Outcomes: Biochemical Data, Chewing or Swallowing, GI Status, Nausea or Vomiting, Nutrition Focused Physical Findings, Skin, Weight Discharge Planning: Too soon to determine Contact: [id number] * Issa Conteh MD - 10/22/2020 2:21 PM EST Critical Care Progress Note 10/22/2020 2:21 PM Subjective: Admit Date: 10/19/2020 PCP: LAQUITA DING, Interval History: States that he feels slightly better. Appears less labored, but still some WOB and FiO2 requirementhas increased. Tolerated NIV overnight. No CP, no pleuritic pain Diet: Dietary Nutrition Supplements: Clear Liquid Oral Supplement DIET GENERAL; Medications: Scheduled Meds: polyethylene glycol 17 g Oral Daily sennosides-docusate sodium 2 tablet Oral BID sodium chloride flush 10 mL Intravenous 2 times per day promethazine 12.5 mg Intravenous Once enoxaparin 40 mg Subcutaneous Daily ipratropium-albuterol 1 ampule Inhalation 4x daily aspirin 81 mg Oral Daily atorvastatin 40 mg Oral Nightly famotidine 20 mg Oral BID sodium chloride flush 10 mL Intravenous 2 times per day Vitamin D 2,000 Units Oral Daily dexamethasone 6 mg Oral Daily remdesivir IVPB 100 mg Intravenous Q24H Continuous Infusions: dexmedetomidine 0.6 mcg/kg/hr (10/22/20 1323) Objective: Vitals: Temp (24hrs), Av.6 F (36.4 C), Min:97.5 F (36.4 C), Max:97.8 F (36.6 C) BP 131/76 Pulse 67 Temp 97.7 F (36.5 C) (Oral) Resp 24 Ht 6' (1.829 m) Wt 240 lb (108.9 kg) SpO2 91% BMI 32.55 kg/m I/O: 10/21 0701 - 10/22 0700 In: 1515 [P.O.:520; I.V.:495] Out: 2735 [Urine:2735] CVP: hysical Exam General Appearance: [x]WDWN []Obese []Cachectic []Thin []ill Skin: Temperature [x]Warm []Cool / Rash []Yes [x]No / Tattoo(s) []Yes []No Heent: Pupils round and react [x]Yes []No Sclera []Icteric [x]Non-Icteric Conjunctiva []Injected [x]Non-Injected / Pinnae [x]Normal []Other/ Dentitian [][place] Teeth []Dentures Oral Mucosa [x][place] [x]Moist []Dry/ Oral ETT []Present [x]Absent Neck: Trachea midline [x]Yes []No/ Thyromegaly []Yes []No/ Crepitus []Present [x]Absent /Jvd []Present []Absent Lungs: [x]Clear []Crackles []Wheezes []Rhonchi / Respiratory effort []Labored [x]Non-Labored Heart: [x]RRR []Irregularly Irregular []murmur present []murmur absent/ Peripheral Edema [x]Absent []Present Abdomen: [x]Soft Bowel Sounds []Present []Absent []Diminished []Hyperactive []Hypoactive []Tender []Non-Tender []Distended [x]Non-distended / Hernia []Present []Absent / Organomegaly [x]Absent []Present/ []Scar Extremities: Cyanosis []Present [x]Absent/ CORDOVA ([x]RUE [x]RLE [x]LUE [x]LLE) Neurologic: TLINGIT & HAIDA []Yes [x]No Corneal reflexes []Present []Absent / Plantar reflexes []Up []Down []Absent / Withdraws to tactile [x]Yes []No/ Follows Commands [x]Yes []No []Unresponsive to verbal Psych: Alert [x]yes []no Oriented []x0 []x1 []x2 []x3 / Affect []Normal []Flat []Aggitated []Calm []Sedated [x]NAD BMP: Recent Labs 10/20/20 0325 10/21/20 0407 10/22/20 0338 NA 137 136 138 K 4.3 5.0 4.8 CL 103 106 106 CO2 27 25 26 BUN 24* 25* 24* CREATININE 0.90 0.68 0.60 GLUCOSE 148* 148* 161* . Ionized Calcium: No results found for: IONCA Hepatic: Recent Labs 10/21/20 0407 10/22/20 0338 AST 37 44 ALT 24 30 BILITOT 0.8 0.6 ALKPHOS 58 58 Troponin: Recent Labs 10/19/20 1709 10/19/20 2047 TROPONINI 0.726* 0.601* CBC: Recent Labs 10/21/20 0407 10/22/20 0338 WBC 7.7 7.8 HGB 11.2* 11.4* PLT 277 264 PROCALCITONIN: Recent Labs 10/20/20 0325 PROCAL 0.23* Films: CXR portable: Results for orders placed during the hospital encounter of 10/19/20 XR CHEST PORTABLE Narrative Patient Name: JOSEPH BROWN Diagnostic Radiology ACCESSION EXAM DATE/TIME PROCEDURE ORDERING PROVIDER [id number] 10/19/2020 09:34 EST CR Chest Portable [id number] -CANDELARIO LOMELI CPT code 58913 Reason For Exam (CR Chest Portable) COVID +, hypoxia Report Portable chest 10/19/2020: Clinical Information: Covid positive. Findings: A single AP portable view of the chest was obtained at 934 hours. Comparison was made to the prior study 10/16/2020. The trachea is midline. The heart is not enlarged. There are now evolving infiltrates bilaterally more pronounced on the right than the left. Report Dictated on --- Final --- Dictating Physician: MD VALERO RISA Signed Date and Time: 10/19/2020 10:00 am Signed by: MD VALERO RISA Transcribed Date and Time: 10/19/2020 10:01 A: 1. Acute hypoxic respiratory failure 2. COVID-19 3. Small pericardial effusion P: 1. HFNC and NIV as needed. 2. Dex/remdisivir 3. Advance diet as updated. 4. Precedex as needed to help with NIV 5. updated. 6. Bowel regimen. Prophylaxis: Stress ulcer: [] PPI Agent [] H2RA [] Sucralfate [] Other: VTE: [x] Enoxaparin [] SC Heparin [] SCD Full Code * Issa Conteh MD - 10/21/2020 10:44 AM EST Critical Care Progress Note 10/21/2020 10:44 AM Subjective: Admit Date: 10/19/2020 PCP: LAQUITA DING DO Interval History: Looks subjectively improved today. Diet: DIET CLEAR LIQUID; Medications: Scheduled Meds: sodium chloride flush 10 mL Intravenous 2 times per day promethazine 12.5 mg Intravenous Once enoxaparin 40 mg Subcutaneous Daily ipratropium-albuterol 1 ampule Inhalation 4x daily aspirin 81 mg Oral Daily atorvastatin 40 mg Oral Nightly famotidine 20 mg Oral BID sodium chloride flush 10 mL Intravenous 2 times per day Vitamin D 2,000 Units Oral Daily dexamethasone 6 mg Oral Daily remdesivir IVPB 100 mg Intravenous Q24H Continuous Infusions: dexmedetomidine 0.5 mcg/kg/hr (10/21/20 06) Objective: Vitals: Temp (24hrs), Av.4 F (36.9 C), Min:97.7 F (36.5 C), Max:99.4 F (37.4 C) BP 109/68 Pulse 65 Temp 97.7 F (36.5 C) (Axillary) Resp 22 Ht 6' (1.829 m) Wt 240 lb (108.9 kg) SpO2 90% BMI 32.55 kg/m I/O: 10/20 07 - 10/21 07 In: 330 [P.O.:310; I.V.:20] Out: 725 [Urine:725] CVP: Physical Exam General Appearance: [x]WDWN []Obese []Cachectic []Thin []ill Skin: Temperature [x]Warm []Cool / Rash []Yes [x]No / Tattoo(s) []Yes []No Heent: Pupils round and react [x]Yes []No Sclera []Icteric [x]Non-Icteric Conjunctiva []Injected [x]Non-Injected / Pinnae [x]Normal []Other/ Dentitian [][place] Teeth []Dentures Oral Mucosa [x][place] [x]Moist []Dry/ Oral ETT []Present [x]Absent Neck: Trachea midline [x]Yes []No/ Thyromegaly []Yes []No/ Crepitus []Present [x]Absent /Jvd []Present []Absent Lungs: [x]Clear []Crackles []Wheezes []Rhonchi / Respiratory effort []Labored [x]Non-Labored Heart: [x]RRR []Irregularly Irregular []murmur present []murmur absent/ Peripheral Edema [x]Absent []Present Abdomen: [x]Soft Bowel Sounds []Present []Absent []Diminished []Hyperactive []Hypoactive []Tender []Non-Tender []Distended [x]Non-distended / Hernia []Present []Absent / Organomegaly [x]Absent []Present/ []Scar Extremities: Cyanosis []Present [x]Absent/ CORDOVA ([x]RUE [x]RLE [x]LUE [x]LLE) Neurologic: TLINGIT & HAIDA []Yes [x]No Corneal reflexes []Present []Absent / Plantar reflexes []Up []Down []Absent / Withdraws to tactile [x]Yes []No/ Follows Commands [x]Yes []No []Unresponsive to verbal Psych: Alert [x]yes []no Oriented []x0 []x1 []x2 []x3 / Affect []Normal []Flat []Aggitated []Calm []Sedated [x]NAD BMP: Recent Labs 10/19/20 0930 10/20/20 0325 10/21/20 0407 NA 135 137 136 K 3.7 4.3 5.0 CL 103 103 106 CO2 25 27 25 BUN 19 24* 25* CREATININE 0.90 0.90 0.68 GLUCOSE 145* 148* 148* . Ionized Calcium: No results found for: IONCA Hepatic: Recent Labs 10/20/20 0325 10/21/20 0407 AST 44 37 ALT 28 24 BILITOT 0.9 0.8 ALKPHOS 61 58 Troponin: Recent Labs 10/19/20 1355 10/19/20 1709 10/19/202046 TROPONINI 0.922* 0.726* 0.601* Lactate: No results found for: LACTA ABG: No results for input(s): PH, PCO2, PO2 in the last 72 hours. CBC: Recent Labs 10/20/20 0325 10/21/20 0407 WBC 11.1* 7.7 HGB 12.4* 11.2* PLT 237 277 PROCALCITONIN: Recent Labs 10/20/20 0325 PROCAL 0.23* Films: CXR portable: Results for orders placed during the hospital encounter of 10/19/20 XR CHEST PORTABLE Narrative Patient Name: JOSEPH BROWN Diagnostic Radiology ACCESSION EXAM DATE/TIME PROCEDURE ORDERING PROVIDER [id number] 10/19/2020 09:34 EST CR Chest Portable [id number] -CANDELARIO LOMELI CPT code 13636 Reason For Exam (CR Chest Portable) COVID +, hypoxia Report Portable chest 10/19/2020: Clinical Information: Covid positive. Findings: A single AP portable view of the chest was obtained at 934 hours. Comparison was made to the prior study 10/16/2020. The trachea is midline. The heart is not enlarged. There are now evolving infiltrates bilaterally more pronounced on the right than the left. Report Dictated on --- Final --- Dictating Physician: MD VALERO RISA Signed Date and Time: 10/19/2020 10:00 am Signed by: MD VALERO RISA Transcribed Date and Time: 10/19/2020 10:01 A: 1. Acute hypoxic respiratory failure 2. COVID-19 3. Indeterminate troponin: likely due to demand 4. Small pericardial effusion P: 1. Continue dex/remdisivir 2. HFNC and NIV via faceplate 3. Defer pursuit of effusion unless develops hemodynamic issues 4. Add clear supplement. 5. Bowel regimen 6. updated. 7. Precedex Prophylaxis: Stress ulcer: [] PPI Agent [] H2RA [] Sucralfate [] Other: VTE: [x] Enoxaparin [] SC Heparin [] SCD Full Code * Issa Coreas RCP - 10/20/2020 9:32 PM EST Patient Evaluation Form The patient is currently receiving Q4 Duoneb Points 0 1 2 3 4 Points Totals Pulmonary Status (-/+) History Smoking history < 20 pack years Smoking history > 20 pack years Pulmonary Disorder (acute or chronic) Severe or Chronic with Exacerbation 1 Surgical Status No Surgery Trach PEG General Surgery Lower Abdominal Thoracic or Upper Abdominal Thoracic with Pulmonary Disorder 0 Chest X-ray Clear None Ordered Chronic Changes CXR results Pending Infiltrates, atelectasis, pleural effusion, or edema Infiltrates in more than one lobe Infiltrate + Atelectasis, &/or pleural effusion 3 Respiratory Pattern Regular, RR = 12-20 Increased, RR = 21-25 MCKEON, irregular, or RR = 26-30 Decreased FEV1 or RR = 31-35 Severe SOB, used of of accessory muscles, or RR = > 35 2 Mental Status Alert, oriented, cooperative Confused, but follows commands Lethargic or un-able to follow commands Obtunded Comatose 0 Breath Sounds Clear to auscultation Decreased unilaterally or in bases only Decreased bilaterally Crackles or intermittent wheezes Wheezes 2 Cough Strong, spontaneous, & nonproductive Strong, spontaneous, & productive Weak, nonproductive Weak, productive or with wheezes No spontaneous cough or may require suctioning 1 Level of Activity Ambulatory Ambulatory with Assist Non-ambulatroy Paraplegic Quadriplegic 2 Triage 1 > 20 pts Triage 2 16-20 pts Triage 3 11- 15 pts Triage 4 6 - 10 pts Triage 5 0 - 5 pts TOTAL POINTS = 11 Triage Score = 3 PEF: FVC: FEV1: FVE1/FVC: Patient instructed and returned demonstration on use of MDI (with spacer, as appropriate) No Changing Therapy to QID and PRN * Christina Prabhakar RD, LD - 10/20/2020 4:01 PM EST Comprehensive Nutrition Assessment Type and Reason for Visit: Initial Nutrition Recommendations/Plan: 1. Pt currently on clear liquid diet, not consuming anything other than water. - Advance as tolerated, monitor need for alternate route of nutrition if pt continues w/o PO intakes. 2. Monitor pt's receptiveness/tolerance for ONS, pt currently refusing due to nausea. Pt complaining of poor intakes for ~10 days. 3. If EN becomes warranted, suggest Vital HP @ goal rate of 50 ml/hr to provide 1200 kcals, 105 g protein, and 1003 ml H2O. (11 kcals and 1 g protein/kg ABW 109 kg). 4. Obtain current body weight. 5. Monitor weights, labs, PO diet/tolerance, overall nutritional status. RD will continue to follow. Nutrition Assessment: Pt admitted w/acute hypoxic respiratory failure due to COVID-19 PNA. Pt complaining of nausea today and overall has been feeling ill for ~10 days. Pt on 100% HFNC. Pt also with elevated troponin, mild to moderate pericardial effusion. Pt currently ordered a CLD. Pt has no desire for any sort of food/ONS at this time. Pt is too nauseated and only wants water at this time. Pt has not kept track of his weight at home since feeling ill 10 days ago. Admits to poor intake, but states that 240# is around his UBW. Malnutrition Assessment: Malnutrition Status: At risk for malnutrition (Comment)(Pt currently not consuming anything other than water.) Context: Acute Illness Findings of the 6 clinical characteristics of malnutrition: Energy Intake: 7 - 50% or less of estimated energy requirements for 5 or more days Weight Loss: Unable to assess(suspect pt has had weight loss. Suggest obtain current body weight for accuracy.) Body Fat Loss: Unable to assess Muscle Mass Loss: Unable to assess Fluid Accumulation: No significant fluid accumulation Engineering Secretary Strength: Not Performed Estimated Daily Nutrient Needs: Energy (kcal): 2648-5572; Weight Used for Energy Requirements: Current Protein (g): 81-115; Weight Used for Protein Requirements: Dinosaur Fluid (ml/day): ; Method Used for Fluid Requirements: 1 ml/kcal Nutrition Related Findings: Nausea; hyperactive BS; no edema; skin WDL Wounds: None Current Nutrition Therapies: DIET CLEAR LIQUID; Anthropometric Measures: Height: 6' (182.9 cm) Current Body Weight: 240 lb (108.9 kg) Admission Body Weight: Usual Body Weight: 240 lb (108.9 kg) Dinosaur Body Weight: 178 lbs; % Dinosaur Body Weight 134.8 % BMI: 32.5 Adjusted Body Weight: ; Adjusted BMI: BMI Categories: Nutrition Diagnosis: Inadequate energy intake related to altered GI function, early satiety as evidenced by nausea, vomiting Altered nutrition-related lab values related to renal dysfunction, cardiac dysfunction, endocrine dysfuntion as evidenced by lab values Nutrition Interventions: Food and/or Nutrient Delivery: Continue Current Diet(Advance as tolerated) Nutrition Education/Counseling: No recommendation at this time Coordination of Nutrition Care: Continue to monitor while inpatient Goals: Pt will receive/tolerate adequate nutrition while labs trend towards baseline. Nutrition Monitoring and Evaluation: Behavioral-Environmental Outcomes: Food/Nutrient Intake Outcomes: Diet Advancement/Tolerance, Food and Nutrient Intake, Supplement Intake Physical Signs/Symptoms Outcomes: Biochemical Data, Chewing or Swallowing, GI Status, Nausea or Vomiting, Nutrition Focused Physical Findings, Skin, Weight Discharge Planning: Too soon to determine Contact: [phone] * Aruna Sanchez RN - 10/20/2020 12:20 AM EST Patient's SpO2 was 88% on 15L HFNC, this RN called RT. RT put patient on nonrebreather on top of 15L HFNC, patient's SpO2 96-98%. Dr. Echeverria notified via perfect serve at 12:[address] Echeverria returned call at 12:13 AM, ordered ABGs and consulted ICU. * Aruna Sanchez RN - 10/19/2020 8:00 PM EST On assessment, patients oxygen saturation was 88% on 10L high flow NC. Called respiratory therapist, this RN was told to up the oxygen to 15L. Patients oxygen saturation is now 92-93% on 15L high flow NC. * Zoila Oliver RN - 10/19/2020 3:45 PM EST During afternoon assessment, patient was found to have decreased pulse ox of 81% on 3L and respirations of 24. He was also complaining of nausea. Dr. Green paged to see patient, patient placed on15L via nonrebreather, and respiratory called to place patient on high flow. New orders received from Dr. Green. Pharmacy called to send Lovenox dose stat. Daughter, Divya, updated on the above and patient's plan of care. Will continue to monitor. * Anastacia Aguirre RN - 10/19/2020 2:49 PM EST * Jerardo Pelaez MD - 10/19/2020 10:52 AM EST [facility] - Infectious Diseases Attending COVID-19 Therapeutic Progress Note Subjective: Consult/Treatment requested on this patient with testing consistent with CoV2 infection. Patient isdocumented to have hypoxia with SpO2 <=94% on room air or increase in baseline oxygen requirement during this visit. Objective: Vitals: Patient Vitals for the past 24 hrs: BP Temp Temp src Pulse Resp SpO2 Height Weight 10/19/20 0932 (!) 96/49 76 94 % 10/19/20 0902 113/61 96.5 F (35.8 C) Temporal 88 28 91 % 240 lb (108.9 kg) 10/19/20 0855 20 (!) 87 % 6' (1.829 m) 240 lb (108.9 kg) Physical Exam Due to the current efforts to prevent transmission of COVID-19 and also the need to preserve PPE for other caregivers, a [id number] encounter with the patient was not performed. That being said, all relevant records and diagnostic tests were reviewed, including laboratory results and imaging. Please reference any relevant documentation elsewhere. Care will be coordinated with the primary service. Labs: Recent Labs 10/19/20 0930 NA 135 K 3.7 CL 103 CO2 25 BUN 19 CREATININE 0.90 GLUCOSE 145* CALCIUM 7.9* PROT 6.5 LABALBU 3.4* BILITOT 0.9 ALKPHOS 58 AST 40 ALT 29 Recent Labs 10/19/20 0930 WBC 9.3 HGB 12.1* HCT 36.3* PLT 217 GRANULOCYTES 88.4* LYMPHOPCT 4.3* MONOPCT 7.2 LABEOS 0.0* BASOPCT 0.1 NEUTROABS 8.2* No results for input(s): CRP in the last 72 hours. No results for input(s): DDIMER in the last 72 hours. No results for input(s): FERRITIN in the last 72 hours. No results for input(s): LDH in the last 72 hours. Micro: No results for input(s): COVID19 in the last 72 hours. Other CoV2 testin10/12/20 [facility]+ Other pertinent findings: NA Estimated date of symptom onset: 10/11/21 Impression: COVID19 pneumonia with hypoxia Plan: Treatment with remdesivir 200mg IV once followed by 100mg IV daily for additional four days is appropriate. Would also recommend 10 days of dexamethasone or equivalent steroid while in hospital, and may be discontinued at discharge unless needed for other treatment. Will sign off and continue to follow through COVID stewardship. Please call if needed. More that 51% total time 15 Minutes counseling (or coordinating care) and providing discussion regarding plan of care, expectations, medication plan. Jerardo Pelaez MD, FACP, [facility] P [phone] documented in this encounter Reason for Referral Status Reason Specialty Diagnoses / Procedures Referre d By Contact Referred To Contact Closed Cardiology Diagnoses SVT (supraventricular tachycardia) (HCC) Procedures ECHO Complete 2D W Doppler W Color Venkat Grant MD [address] [place] [id number] Summary Purpose Family History No Family History Records FoundNo Family History Records FoundNo Family History Records FoundNo Family History Records FoundNo Family History Records Found Additional Source Comments Reason for Visit (unrecogniz ed section and content) Reason Comments Shortness of Breath Fatigue Cough Positive For Covid-19 Reason Comments Shortness of Breath Emesis Positive For Covid-19 Reason Comments Vomiting Vertigo Pt comes to ED via E MS from home with c/o vertigo and vomiting that started around 0330 this morning. Pt states he feels like he is on a boat in the ocean and feels like he is spinning. Pt is vomiting during triage and states that the base of his neck is hurting and that began this morning. Pt states this has happened twice before 1 month ago and 3 weeks ago. Reason Comments Headache X 2 weeks. Also endo rses nausea and dizziness. Took tylenol at home with relief. Specialty Diagnoses / Procedures Referred By Baldomero allison Referred To Contact Diagnoses Dizziness Procedures [id number] Julian Marmolejo MD [address] [place] [address] Phone: tel: fax: [facility] Medical Surgical Unit [facility] [address] [place] [address] Phone: tel: Referral ID Status Reason Start Date Expiration Date Visits Re quested Visits Authorized 1 1 Reason Comments Finger Laceration Pt arrived to triage for a laceration to right thumb. Pt states he was fixing a picture frame and cut himself on the tin. Bleeding under control at this time Ordered Prescriptions (unrec ognized section and content) Prescription Sig Dispensed Refills Start Date End Da te famotidine (PEPCID) 20 MG tablet Take 1 tablet by mouth 2 times daily 30 tablet 0 10/16/2020 ondansetron (ZOFRAN-ODT) 4 MG disintegrating tablet Take 1 tablet by mouth 3 times daily as needed for Nausea or Vomiting 21 tablet 0 10/16/2020 guaiFENesin-codeine (TUSSI-ORGANIDIN NR) 100-10 MG/5ML syrupIndications:Cough,C OVID-19 Take 5 mLs by mouth 3 times daily as needed for Cough for up to 3 days. 50 mL 0 10/16/2020 10/19/2020 benzonatate (TESSALON PERLES) 100 MG capsule Take 1 capsule by mouth 3 times daily as needed for Cough 20 capsule 0 10/16/2020 10/23/2020 Prescription Sig Dispensed Refills Start Date End Da te metoprolol tartrate (LOPRESSOR) 50 MG tablet Take 1 tablet by mouth 2 times daily 60 tablet 3 11/04/2020 benzonatate (TESSALON PERLES) 100 MG capsule Take 1 capsule by mouth 3 times daily as needed for Cough 20 capsule 0 11/04/2020 11/11/2020 atorvastatin (LIPITOR) 40 MG tablet Take 1 tablet by mouth nightly 30 tablet 3 11/04/2020 aspirin 81 MG chewable tablet Take 1 tablet by mouth daily 30 tablet 3 11/05/2020 apixaban (ELIQUIS) 5 MG TABS tablet 10 mg bid until 11/08 then 5 mg bid 60 tablet 5 11/04/2020 Care Teams (unrecognized sec tion and content) [employer] Relationship Specialty Start Date End Date Laquita Ding DO [address] [facility] [place] [address] PCP - General 06/04/19 [employer] Specialty Start Date End Date Laquita Ding DO [address] [place] [address] [address] [place] [address] PCP - General 03/16/20 [employer] Relationship Specialty Start Date End Date Laquita Ding DO PCP - General 03/16/20 [employer] Relationship Specialty Start Date End Date Laquita Ding DO PCP - General 03/16/20 [employer] Relationship Specialty Start Date End Date Laquita Ding DO PCP - General 03/16/20 (unrecognized sect ion and content) No Status Records FoundNo Status Records FoundNo Status Records FoundNo Status Records FoundNo Status Records Found INFORMATION SOURCE (unrecogn ized section and content) DATE CREATED AUTHOR 09/01/2021 [facility] DATE CREATED AUTHOR AUTHOR'S ORGANIZ ATION 11/10/2021 [facility] DATE CREATED AUTHOR AUTHOR'S ORGANIZ ATION 06/11/2025 [facility] DATE CREATED AUTHOR AUTHOR'S ORGANIZ ATION 06/22/2025 [facility] DATE CREATED AUTHOR AUTHOR'S ORGANIZ ATION 06/27/2025 [facility] Scheduled Active and Recently Administ ered Medications (unrecognized section and content) Medication Order 12/18/2024 12/19/2024 12/20/2024 acetaminophen (Tylenol) tablet 650 mg (COMPLETED) 650 mg, Oral, Once, On Mon12/20/24 at 1120, For 1 dose, Maximum dose of acetaminophen is 4000 mg from all sources in 24 hours. 1128 (Given - Provid er: Caity Jewell RN) meclizine (Antivert) tablet 25 mg (COMPLETED) 25 mg, Oral, Once, On Mon12/20/24 at 0910, For 1 dose 0920 (Given - Provid er: Caity Jewell RN) meclizine (Antivert) tablet 25 mg (COMPLETED) 25 mg, Oral, Once, On Mon12/20/24 at 0955, For 1 dose 1023 (Given - Provid er: Caity Jewell RN) ondansetron (Zofran) injection 4 mg (COMPLETED) 4 mg, IntraVENous, Once, On Mon12/20/24 at 0955, For 1 dose 1024 (Given - Provid er: Caity Jewell RN) promethazine (Phenergan) injection 25 mg (COMPLETED) 25 mg, IntraMUSCular, Once, On Mon12/20/24 at 0910, For 1 dose, Only to be given as IM injection. 0920 (Given - Provid er: Caity Jewell RN) sodium chloride 0.9 % bolus 1,000 mL (COMPLETED) 1,000 mL, IntraVENous, at 1,000 mL/hr, Administer over 1 Hours, Once, On Mon12/20/24 at 0910, For 1 dose 0928 (New Bag - Prov ider: Caity Jewell RN)1028 (Stopped - Provider: Caity Jewell RN) PRN Medication Order 12/18/2024 12/19/2024 12/20/2024 iopamidol (Isovue-370) 76 % injection 75 mL (COMPLETED) 75 mL, IntraVENous, IMG once PRN, contrast, Starting on Mon12/20/24 at 1047, For 1 dose 1048 (Given - Provid er: Allegra Duran, RT (R)) Scheduled Medication Order 05/20/2025 05/21/2025 05/22/2025 amoxicillin-clavulanate (Augmentin) 875-125 MG per tablet 1 tablet 1 tablet (875 mg), Oral, Every 12 hours scheduled (2 times per day), First dose on Mon05/22/25 at 2100, Suspected Indication (Select all that apply): Other, Other Abx Indication: sinusitis aspirin EC tablet 81 mg(Linked Group 1) 81 mg, Oral, Daily, First dose (after last modification) on Mon05/21/25 at 2130, Do NOT administer if bleed present on follow up CT-Head. Do not crush, chew, or split. 2143 (Given - Provider: Seema Lizarraga RN) 817 (Given - Provider: Ck Ferrera RN) aspirin suppository 300 mg(Linked Group 1) 300 mg, Rectal, Daily, First dose (after last modification) on Mon05/21/25 at 2130, Do NOT administer if bleed present on follow up CT-Head. Use suppository if NPO or failed swallow screen. 2143 (See Alternative - Provider: Seema Lizarraga RN) 817 (See Alternative - Provider: Ck Ferrera RN) atorvastatin (Lipitor) tablet 40 mg 40 mg, Oral, Daily, First dose (after last modification) on Mon05/21/25 at 0900 0900 (Not Given - Provider: Ck Ferrera RN - Reason: Patient/family refused) 0818 (Given - Provider: Ck Ferrera RN) diazePAM (Valium) tablet 5 mg (COMPLETED) 5 mg, Oral, Once, On Mon05/20/25 at 2340, For 1 dose 0008 (Given - Provider: Kat Caba RN) diphenhydrAMINE (BENADryl) injection 25 mg (COMPLETED) 25 mg, IntraVENous, Once, On Mon05/21/25 at 0120, For 1 dose 0123 (Given - Provider: King Madrigal, EMT-P) enoxaparin (Lovenox) syringe 40 mg (CANCELED) 40 mg, SubCUTAneous, Every 24 hours scheduled (Daily), First dose on Mon05/21/25 at 0900, Indication of Use: Prophylaxis-DVT/PE, Indications: Prophylaxis of Venous Thromboembolism 1312 (Given - Provider: Ck Ferrera RN) enoxaparin (Lovenox) syringe 40 mg 40 mg, SubCUTAneous, Every 24 hours scheduled (Daily), First dose on Mon05/22/25 at 0900, Indication of Use: Prophylaxis-DVT/PE, Indications: Prophylaxis of Venous Thromboembolism 08 (Given - Provid er: Ck Ferrera RN) fluticasone (Flonase) nasal spray 2 spray 2 spray, Each Nostril, Daily, First dose on Mon05/22/25 at 1200, Shake gently. Before first use, prime pump (press 6 times until fine spray appears). After use, clean tip and replace cap. 1257 (Not Given - Provider: Ck Ferrera RN - Reason: Medication not available) meloxicam (Mobic) tablet 15 mg 15 mg, Oral, Daily, First dose on Mon05/21/25 at 0900 0900 (Not Given - Provider: Ck Ferrera RN - Reason: Patient/family refused) 0818 (Given - Provider: Ck Ferrera RN) ondansetron (Zofran) injection 4 mg (COMPLETED) 4 mg, IntraVENous, Once, On Mon05/20/25 at 2340, For 1 dose 0008 (Given - Provider: Kat Caba RN) Continuous Medication Order 05/20/2025 05/21/2025 05/22/2025 sodium chloride 0.9 % infusion (CANCELED) 50 mL/hr, IntraVENous, Continuous, Starting on Mon05/21/25 at 2130 2145 (New Bag - Provider: Seema Lizarraga RN)2346 (Stopped - Provider: Seema Lizarraga RN - Comment: [Order ends at this time. Document the following action when infusion is complete: Stopped]) PRN Medication Order 05/20/2025 05/21/2025 05/22/2025 acetaminophen (Tylenol) suppository 650 mg(Linked Group 2) 650 mg, Rectal, Every 6 hours PRN, fever, For temp greater than 100.4 F (38 C), Starting on Mon05/21/25 at 0646, Administer if oral route cannot be used. Maximum dose of acetaminophen is 4000 mg from all sources in 24 hours. acetaminophen (Tylenol) tablet 650 mg(Linked Group 2) 650 mg, Oral, Every 6 hours PRN, mild pain (1-3), fever, For temp greater than 100.4 F (38 C), Starting on Mon05/21/25 at 0646, Maximum dose of acetaminophen is 4000 mg from all sources in 24 hours. bisacodyl (Dulcolax) suppository 10 mg 10 mg, Rectal, Daily PRN, constipation, Starting on Mon05/21/25 at 2113, 2nd line for treatment of constipation - give scheduled (in addition to 1st line agent) if no bowel movement in past 48 hours gadopiclenol (Vueway) injection 10 mL (COMPLETED) 10 mL, IntraVENous, IMG once PRN, contrast, Starting on Mon05/21/25 at 1702, For 1 dose 1703 (Given - Provider: Cecelia Musa, RT (R)(MR)) labetalol (Normodyne,Trandate) injection 10 mg 10 mg, IntraVENous, Every 10 min PRN, high blood pressure, Starting on Mon05/21/25 at 2113, Administer 10 mg IV every 10 minutes if SBP is 220 mmHg or greater OR DBP is 120 mmHg or greater. Notify provider if SBP is 220 mmHg or greater OR DBP is 120 mmHg or greater after 3 consecutive doses. ondansetron (Zofran) injection 4 mg(Linked Group 3) 4 mg, IntraVENous, Every 6 hours PRN, nausea, vomiting, Starting on Mon05/21/25 at 0646, 1st Line. Give IV if patient is unable to take orally. If inadequate response within 60 minutes, proceed to next-line agent or contact provider if no further options ordered. ondansetron ODT (Zofran-ODT) disintegrating tablet 4 mg(Linked Group 3) 4 mg, Oral, Every 8 hours PRN, nausea, vomiting, Starting on Mon05/21/25 at 0646, 1st Line. If inadequate response within 60 minutes, proceed to next-line agent or contact provider if no further options ordered. Patient should allow tablet to dissolve on tongue. Do not remove from blister pack until just before administering. polyethylene glycol (PEG) 3350 (Miralax) packet 17 g 17 g, Oral, Daily PRN, constipation, Starting on Mon05/21/25 at 2113, 1st line for treatment of constipation - give scheduled if no bowel movement in past 24 hours. Linked Groups Order Group 1: aspirin EC tablet 81 mgJump to med 81 mg, Oral, Daily, First dose (after last modification) on Mon05/21/25 at 2130, Do NOT administer if bleed present on follow up CT-Head. Do not crush, chew, or split. Or aspirin suppository 300 mgJump to med 300 mg, Rectal, Daily, First dose (after last modification) on Mon05/21/25 at 2130, Do NOT administer if bleed present on follow up CT-Head. Use suppository if NPO or failed swallow screen. Group 2: acetaminophen (Tylenol) tablet 650 mgJump to med 650 mg, Oral, Every 6 hours PRN, mild pain (1-3), fever, For temp greater than 100.4 F (38 C), Starting on Mon05/21/25 at 0646, Maximum dose of acetaminophen is 4000 mg from all sources in 24 hours. Or acetaminophen (Tylenol) suppository 650 mgJump to med 650 mg, Rectal, Every 6 hours PRN, fever, For temp greater than 100.4 F (38 C), Starting on Mon05/21/25 at 0646, Administer if oral route cannot be used. Maximum dose of acetaminophen is 4000 mg from all sources in 24 hours. Group 3: ondansetron ODT (Zofran-ODT) disintegrating tablet 4 mgJump to med 4 mg, Oral, Every 8 hours PRN, nausea, vomiting, Starting on Mon05/21/25 at 0646, 1st Line. If inadequate response within 60 minutes, proceed to next-line agent or contact provider if no further options ordered. Patient should allow tablet to dissolve on tongue. Do not remove from blister pack until just before administering. Or ondansetron (Zofran) injection 4 mgJump to med 4 mg, IntraVENous, Every 6 hours PRN, nausea, vomiting, Starting on Mon05/21/25 at 0646, 1st Line. Give IV if patient is unable to take orally. If inadequate response within 60 minutes, proceed to next-line agent or contact provider if no further options ordered. Scheduled Medication Order 06/07/2025 06/08/2025 06/09/2025 lidocaine (Xylocaine) 1 % injection 5 mL 5 mL, Infiltration, Once, On Mon06/09/25 at 1510, For 1 dose 1510 (Canceled Entry - Provider: Automatic Discharge Provider - Comment: Automatically canceled at discontinue of medication order) FOR RECORDS PERTAINING TO PATIENTS WHO ARE OR HAVE BEEN ENROLLED IN A CHEMICAL DEPENDENCY/SUBSTANCEABUSE PROGRAM, SOME INFORMATION MAY BE OMITTED. This clinical summary was aggregated from multiple sources. Caution should be exercised in using it in the provision of clinical care. This summary normalizes information from multiple sources, and as a consequence, information in this document may materially change the coding, format and clinical context of patient data. In addition, data may be omitted in some cases. CLINICAL DECISIONS SHOULD BE BASED ON THE PRIMARY CLINICAL RECORDS. [facility] [employer] [facility] provides no warranty or guarantee of the accuracy or completeness of information in this document.
== END | disposition home or self-care (01) ==
LOC: LABSPEC 15:17
PROVIDERS: Referring Provider Otolaryngology; Visit Provider Otolaryngology
DX: J32.8 Other chronic sinusitis (principal)
CPT/HCPCS: 88305; 88311

== ENCOUNTER 2025-07-04 09:41 | Emergency (ER) | payer MEDICARE, OTHER, SELFPAY ==
[2025-07-04 09:41] VITALS: BP 123/74; PULSE 84; RESP 14; TEMP 36.2; O2SAT 98
[2025-07-04 09:52] VITALS: BMI 33.7
--- NOTE | 2025-07-04 09:53 | EKG12_ITS ---
Test Reason : GENERAL Blood Pressure : */* mmHG Vent. Rate : 72 BPM Atrial Rate : 72 BPM P-R Int : 122 ms QRS Dur : 92 ms QT Int : 394 ms P-R-T Axes : 44 18 47 degrees QTcB Int : 431 ms Normal sinus rhythm Nonspecific ST abnormality Abnormal ECG Confirmed by BRIDGETT ALONSO MD ([id number]), editor managing director FELISHA DEAN ([id number]) on 07/07/2025 8:01:26 AM Referred By: Confirmed By: BRIDGETT ALONSO MD
--- NOTE | 2025-07-04 09:54 | EX.ED.DYSGE1 ---
HPI History of Present Illness Chief Complaint: Syncope Narrative Narrative: 69-year-old male who denies significant past medical history is postoperative day 3 from surgery on his nasal septum by Dr. Johnson. He has nasal splints in place that come out Monday. He presents with his daughter because of 2 episodes of syncope that he had for approximately 30 seconds today. He states that around 4:00 in the morning, approximately 6 hours ago, he felt lightheaded and dizzy. His daughter reports that she heard from her mother that he passed out for about 30 seconds. She was going to call EMS but he started coming to. She went over to the house and around 6 AM, had another syncopal episode that was very brief. He has not been eating or drinking and is usually dehydrated. He denies any prodromal chest pain or shortness of breath. He feels back to baseline currently. Additionally, he states he is constipated but usually only has a bowel movement every 4 days. He presents because of the 2 brief syncopal episodes that he had. PFSH PFS Medical History Obstructive sleep apnea Left leg paresthesias Chronic back pain Radicular pain of left lower extremity Osteoarthritis (arthritis due to wear and tear of joints) COVID-19 virus infection Lumbar stenosis Wears glasses History of steroid therapy Injury of back Former smoker On home oxygen therapy Shortness of breath on exertion History of pain when walking History of stress test Home Medications ?Medication ?Instructions ?Recorded ?Last Taken ?Type atorvastatin 40 mg tablet 40 mg PO QHS CHOLESTEROL 11/11/21 11/29/21 History acetaminophen 500 mg tablet 1,000 mg (2 x 500 mg) PO Q8 PRN 12/07/21 Unknown Rx fever or pain #0 tabs meloxicam 15 mg tablet 15 mg PO DAILY 07/04/25 Unknown History Allergy/AdvReac Type Severity Reaction Status Date / Time No Known Allergies Allergy Verified 07/04/25 09:42 Family History Mother CAD (coronary artery disease) Arthritis Surgical History Hx of colonoscopy Hx of cholecystectomy Hx of arthroscopy of left knee History of amputation of finger of right hand Social History adopted: No household members: spouse number of children: 2 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 No prodromal chest pain or shortness of breath. Transient lightheadedness and dizziness. Postoperative day 3 from nasal septum surgery. Has nasal splints in place. Denies any black stool recently. No nausea or vomiting. EXAM Physical Exam Narrative Exam Narrative: Afebrile. Vital signs noted. Nontoxic-appearing. Cardiovascular examination reveals regular rate and rhythm. Lungs are clear to auscultation bilaterally. Abdomen is soft and nontender with positive bowel sounds. Positive bandage nasal bridge, no bleeding from nares. No pallor of skin. Neurological examination nonfocal, nonlateralizing.. Awake, alert, oriented x 3. Moves all extremities. Const Vital Signs: 07/04/25 09:41 07/04/25 09:52 07/04/25 11:41 Temperature 97.1 F L 98.7 F Temperature Source Temporal Oral Pulse Rate 84 83 Respiratory Rate 14 18 Respiratory Effort Normal Non-Labored Respiratory Pattern Normal Blood Pressure 123/74 H 121/77 H Blood Pressure Mean 90 91 Pulse Ox 98 93 Oxygen Delivery Method Room Air Room Air MDM MDM MDM Narrative Medical decision making narrative: The differential diagnosis includes but not limited to dehydration versus other electrolyte abnormality versus orthostatic hypotension versus vasovagal syncope as he does have nasal splints in place. EKG will be obtained to help rule out dysrhythmia. I will check a CBC to ensure that he is not anemic because in the past, in review of his problem list he had acute blood loss anemia. Given his recent surgery, he may be anemic, but it does not appear that way clinically on examination. BMP will be obtained to help rule out dehydration or other electrolyte abnormality. He was bolused normal saline 1 L intravenously. I do not feel that he needs a troponin as he is not having any chest pain. EKG obtained and interpreted by myself independently as normal sinus rhythm at 72 bpm without ectopy or acute ST changes. No STEMI. QTc normal at 431 ms. I reviewed his laboratory work and he has a normal white count of 11.0 with hemoglobin 13.4, hematocrit 40.5, platelet count 165. I reviewed his electrolyte panel and he has normal sodium, normal potassium, BUN normal at 13 and creatinine 0.84, no evidence of severe dehydration. He may have had more intravascular volume depletion. Glucose elevated at 133 with normal anion gap of 12. Upon repeat examination, he was able to ambulate to the bathroom and feels improved after IV fluids. I discussed patient with Dr. Traore for Dr. Johnson who agrees with outpatient follow-up and discharge for nasal splint removal on Monday. Return instructions to the emergency department were reviewed. Disposition is discharged home in stable condition. History & Record Review Discussion w/independent historian: Patient and Family Additional record(s) reviewed:: Prior ED visit (Seen for low back pain, noncontributory to current chief complaint) Lab Data Attestation: I reviewed the patient's lab results. Labs: Laboratory Results - last 24 hr 07/04/25 10:39 WBC 11.0 RBC 4.38 L Hgb 13.4 Hct 40.5 MCV 92.5 MCH 30.6 MCHC 33.1 RDW Std Deviation 47.4 H RDW Coeff of Pancho 13.9 Plt Count 165 MPV 10.2 Immature Gran % (Auto) 0.500 Neut % (Auto) 75.8 H Lymph % (Auto) 12.8 L [place] % (Auto) 10.0 Eos % (Auto) 0.7 Baso % (Auto) 0.2 Absolute Neuts (auto) 8.4 H Absolute Lymphs (auto) 1.41 Nucleated RBC % 0 Sodium 137 Potassium 4.1 Chloride 103 Carbon Dioxide 22.3 Anion Gap 12 BUN 13 Creatinine 0.84 Estim Creat Clear Calc 104.58 Est GFR (MDRD) Non-Af 93 BUN/Creatinine Ratio 15.8 Glucose 133 H Calcium 8.7 Management Discussion w/another healthcare provider: [facility] (Dr. Traore, otolaryngology) Discharge Plan Triage Chief Complaint: Syncope ED Provider: Lawrence Abad Dx/Rx/DC Orders Clinical Impression: Vasovagal syncope, Intravascular volume depletion, Syncope and collapse Instructions: ED Fainting, Vagal Reaction, ED Fainting, Uncertain Cause Prescriptions: No Action atorvastatin 40 mg Tablet 40 mg PO QHS acetaminophen 500 mg Tablet 1,000 mg PO Q8 PRN (Reason: fever or pain) Qty: 0 0RF Rx Instructions: You have been taking this every 8 hours while in rehab. I would continue the every 8 hours for a week and then you can try using it every 6-8 hours as needed for pain. meloxicam 15 mg tablet 15 mg PO DAILY Primary Care Provider: Sherice العلي Referrals: VANITA DING [Other] Activity Restrictions/Additional Instructions: Follow-up with Dr. Johnson as scheduled on Monday. Return to the emergency department with increasing fainting spells, new or worsening symptoms. Drink plenty of oral fluids. Print Language: Tajik Disposition Disposition: Home, Self Care
[2025-07-04] MEDS: 0.9% Normal Saline (1000mL) 1,000 ML 999 ML IV (10:38)
[2025-07-04 10:45] LABS: Hematocrit 40.5 % (40-54); Hemoglobin 13.4 g/dL (13.0-16.5); Immature Granulocytes Count 0.050 X10^3/uL (0.0-0.0); Mean Corp Hgb Conc 33.1 g/dL (32-36); Mean Corpuscular Volume 92.5 fL (80-94); Mean Platelet Vol. 10.2 fl (6.2-12.0); NRBC Flagged by Analyzer 0 % (0-5); Platelet Count 165 K/mm3 (150-450); RBC Distribution Width CV 13.9 % (11.6-14.6); RBC Distribution Width SD 47.4 fl (35.1-43.9); Red Blood Count 4.38 M/mm3 (4.6-6.2); White Blood Count 11.0 K/mm3 (4.4-11.0)
[2025-07-04 11:41] VITALS: BP 121/77; PULSE 83; RESP 18; TEMP 37.1; O2SAT 93
[2025-07-04 12:26] LABS: BUN 13 mg/dL (4-19); BUN/Creat Ratio 15.8 RATIO (10-20); Calcium,Total 8.7 mg/dL (7.6-11.0); Carbon Dioxide 22.3 mmol/L (21.0-32.0); Chloride 103 mmol/L (98-108); Estimated Creatinine Clearance 104.58 ml/min (50-250); Glucose 133 mg/dL (70-99); Potassium 4.1 mmol/L (3.3-5.1)
[2025-07-04 12:27] LABS: Anion Gap 12 (5-15)
[2025-07-04 13:00] VITALS: BP 119/78; PULSE 89; RESP 16; O2SAT 98
[2025-07-04 13:13] VITALS: BP 114/78; PULSE 64; RESP 18; TEMP 36.6; O2SAT 99
== END 2025-07-04 13:15 | disposition home or self-care (01) ==
PROVIDERS: Emergency Provider Emergency Medicine; PCP Family Medicine; Visit Provider Emergency Medicine
DX: R55 Syncope and collapse (principal); D62 Acute posthemorrhagic anemia; R73.9 Hyperglycemia, unspecified; Z87.891 Personal history of nicotine dependence; E86.9 Volume depletion, unspecified
CPT/HCPCS: 80048; 85025; 93005; 99283

== ENCOUNTER 2025-08-16 12:37 | Observation (INO) | payer MEDICARE, OTHER, SELFPAY ==
[2025-08-16] VITALS (7 sets, daily range): BP systolic 112–128; BP diastolic 60–82; PULSE 77–102; RESP 18–30; TEMP 36.6–37.3; O2SAT 97–100; BMI 33.3; BMI 32.8
--- NOTE | 2025-08-16 13:00 | EX.ED.DYSGE1 ---
HPI History of Present Illness Chief Complaint: Abscess PFSH [facility] Medical History Obstructive sleep apnea Left leg paresthesias Chronic back pain Radicular pain of left lower extremity Osteoarthritis (arthritis due to wear and tear of joints) COVID-19 virus infection Lumbar stenosis Wears glasses History of steroid therapy Injury of back Former smoker On home oxygen therapy Shortness of breath on exertion History of pain when walking History of stress test Home Medications ?Medication ?Instructions ?Recorded ?Last Taken ?Type atorvastatin 40 mg tablet 40 mg PO QHS CHOLESTEROL 11/11/21 11/29/21 History acetaminophen 500 mg tablet 1,000 mg (2 x 500 mg) PO Q8 PRN 12/07/21 Unknown Rx fever or pain #0 tabs meloxicam 15 mg tablet 15 mg PO DAILY 07/04/25 Unknown History amoxicillin 875 mg-potassium 1 tab PO BID 08/16/25 Unknown History clavulanate 125 mg tablet magnesium 250 mg tablet 500 mg PO DAILY 08/16/25 Unknown History Allergy/AdvReac Type Severity Reaction Status Date / Time No Known Allergies Allergy Verified 08/16/25 12:38 Family History Mother CAD (coronary artery disease) Arthritis Surgical History Hx of colonoscopy Hx of cholecystectomy Hx of arthroscopy of left knee History of amputation of finger of right hand Social History adopted: No household members: spouse number of children: 2 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 Smoking Status: Former smoker how long ago did patient quit smoking: He quit smoking in 1982 alcohol intake: never details: quit alcohol in 1982 substance use type: does not use EXAM Physical Exam Const Vital Signs: 08/16/25 12:38 08/16/25 12:44 08/16/25 14:00 Temperature 99.1 F 99.1 F 98.6 F Temperature Source Oral Oral Oral Pulse Rate 102 H 102 H 77 Respiratory Rate 22 H 22 H 22 H Blood Pressure 127/74 H 127/74 H 128/62 H Blood Pressure Mean 91 91 84 Pulse Ox 100 100 99 Oxygen Delivery Method Room Air Room Air Room Air MDM MDM MDM Narrative Medical decision making narrative: 69-year-old male with left hip/buttock abscess. Does not appear to be in joint because he has full flexion extension of the joint. Will be started on IV Unasyn. Labs and CT will be obtained. He will be locally anesthetized incised and drained. He may need to be admitted for IV antibiotics. Patient doing well. He is currently on the antibiotic Unasyn. I did the incision and drainage the left buttock. There is only small amount of pus and blood. No large abscess pocket. It was packed. We given additional pain medication and admitted. Hospitalist is on page. History & Record Review Discussion w/independent historian: Patient and Family Additional record(s) reviewed:: Prior outpatient record, Prior ED visit and Prior labs Lab Data Attestation: I reviewed the patient's lab results. Lab results narrative: CBC shows a white count of 14.6. H&H of 13 and 40. Platelets 239. 74% segmented neutrophils. Electrolytes show a gap 11. BUN and creatinine 22 and 1.1. Glucose 100. Labs: Laboratory Results - last 24 hr 08/16/25 13:30 WBC 14.6 H RBC 4.38 L Hgb 13.3 Hct 40.0 MCV 91.3 MCH 30.4 MCHC 33.3 RDW Std Deviation 46.3 H RDW Coeff of Pancho 13.6 Plt Count 239 MPV 9.9 Immature Gran % (Auto) 0.400 Neut % (Auto) 74.8 H Lymph % (Auto) 13.2 L [place] % (Auto) 10.1 H Eos % (Auto) 1.2 Baso % (Auto) 0.3 Absolute Neuts (auto) 10.9 H Absolute Lymphs (auto) 1.93 Nucleated RBC % 0 Sodium 137 Potassium 4.1 Chloride 105 Carbon Dioxide 22.2 Anion Gap 11 BUN 22 H Creatinine 1.19 Estim Creat Clear Calc 73.47 Est GFR (MDRD) Non-Af 65 BUN/Creatinine Ratio 18.8 Glucose 100 H Calcium 8.8 Procedures Other Procedures Procedure(s): Left buttock I&D. Area was cleaned with iodine. Placed 10 cc of lidocaine. Made about 1 inch incision. Removed a small amount of blood and small amount of pus. There was no significant pus pocket. Broke up loculations and placed several inches of quarter inch gauze. Patient tolerated procedure well. Discharge Plan Dx/Rx/DC Orders Clinical Impression: Cellulitis of left buttock, Abscess of buttock, left, Leukocytosis Disposition Disposition: Acute Care Hospital [facility]
--- OUTSIDE RECORDS SUMMARY | 2025-08-16 13:14 | XMS RPT_ITS | CCD ---
Author Organization [facility] Care Team Providers Care Application Spec Name Role Phone Laquita Ding Primary Care Provider Lawrence Abad Attending Unavailable Sherice العلي Primary Care Unavailable Haresh Johnson Referring Haresh Bah Attending RYAN Rhoades Primary Care Unavailable Haresh Johnson Attending RYAN Rhoades Primary Care Unavailable Haresh Johnson Referring LAQUITA March Primary Care Physician Alex KATZ, Dr. Hutson Attending Physician Dr. Haresh Johnson MD Referring Provider Lawrence Abad MD Attending Physician Lawrence Abad MD Emergency Department Physician Severiano KATZ, Dr. Smiley Primary Care Physician [phone] Laquita Ding DO Primary Care Provider [phone] LAQUITA DING Primary Care Unavailable CYDNEY CANTU Attending Unavailable LAQUITA DING Primary Care Unavailable MARJORIE SEARS Attending Unavailable LAQUITA DING Primary Care Unavailable REYNALDO PK Referring Unavailable JOSÉ ANTONIO WOODRUFF Admitting Unavailable LAQUITA DING Primary Care Unavailable ZOEY JAMES Consulting Unavailable JOSÉ ANTONIO WOODRUFF Attending Unavailable Medications Current Medications Medication Drug Class(es) Dates [...] End: 11-09-2020 apixaban (ELIQUIS) tablet 10 mg atorvastatin 40 mg oral tablet (20 sources) HMG-CoA Reductase Inhibitor Start: 11-11-2021 End: 05-22-2025 take 1 tablet by mouth at bedtime Atorvastatin 40 mg Tablet Active 40 mg PO AT BEDTIME November 11, 2021 1:00am CHOLESTEROL Complies with drug therapy Start: 10-19-2020 End: 11-04-2020 take 1 tablet by mouth once daily atorvastatin (LIPITOR) 40 MG tablet Take 1 tablet by mouth nightly 30 tablet 3 11/04/2020 Active take 1 tablet by jyothi th once daily atorvastatin (Lipitor) 10 MG tablet Take 10 mg by mouth daily. Active benzonatate 100 mg oral capsule (4 sources) Non-narcotic Antitussive Start: 10-16-2020 End: 11-11-2020 take 1 capsule by mouth three times daily as needed for cough benzonatate (TESSALON PERLES) 100 MG capsule Take 1 capsule by mouth 3 times daily as needed for Cough 20 capsule 0 11/04/2020 11/11/2020 Active fluticasone propionate 0.05 mg/actuat metered dose nasal spray (7 sources) Corticosteroid Start: 05-22-2025 End: 05-23-2026 take [...] 10-19-2020 End: 10-25-2020 melatonin tablet 3 mg meloxicam 15 mg oral tablet (20 sources) Nonsteroidal Anti-inflammatory Drug Start: 07-04-2025 take 1 tablet by mouth once daily Meloxicam 15 mg tablet Active 15 mg PO DAILY July 04, 2025 12:00am Complies with drug therapy Start: 05-21-2025 End: 05-22-2025 take 15 mg by mouth once daily 15 mg, Oral, Daily, Fir st dose on Mon05/21/25 at 0900 Start: 01-21-2021 End: 11-29-2021 take 1 tablet by mouth once daily Meloxicam 15 mg Tablet Discontinued 15 mg PO DAILY November 25, 2021 1:00am November 29, 2021 1:50pm Check with primary doctor pantoprazole 40 mg delayed release oral tablet [...] Class(es) Dates Sig (Normalized) Sig (Original) Acetaminophen (8 sources) Start: 05-21-2025 End: 05-22-2025 take 1 tablet by mouth every six hours as needed for pain and fever acetaminophen (Tylenol) tablet 650 mg Start: 12-20-2024 End: 12-20-2024 650 mg, Oral, Once, On Mon at 1120, For 1 dose, Maximum dose of acetaminophen is 4000 mg from all sources in 24 hours. Start: 12-07-2021 Acetaminophen 500 mg Tablet Active 1000 mg PO EVERY 8 HOURS as needed for fever or pain 0 0 December 07, 2021 11:30am You have been taking this every 8 hours while in rehab. I would continue the every 8 hours for a week and then you can try using it every 6-8 hours as needed for pain. Complies with drug therapy Start: 10-19-2020 acetaminophen (TYLENOL) tablet 650 mg 20 ml albumin human, chcf 250 mg/ml injection (3 sources) Human Serum [...] mouth daily 0 10/19/2020 Discontinued (LIST CLEANUP) bisacodyl 10 mg rectal suppository (3 sources) [...] chlorhexidine (PERIDEX) 0.12 % solution 15 mL cholecalciferol 0.05 mg oral tablet (16 sources) Vitamin D Start: 11-11-2021 End: 07-04-2025 take 1 tablet by mouth once daily Cholecalciferol (Vitamin D3) (Vitamin D3) 50 mcg (2,000 unit) Tablet Discontinued 50 ug PO DAILY November 11, 2021 1:00am July 04, 2025 9:54am SUPPLEMENT Start: 10-19-2020 take 2000 [IU] by mo ut once daily 2,000 Units, Oral, DAILY, First dose on Mon10/19/20 at 1200 Maintenance Dose. vitamin D (KASANDRA CALCIFEROL) 25 MCG (1000 UT) TABS tablet Take 1,000 Units by mouth daily 0 Active cisatracurium besylate (NIMBEX) 200 mg in sodium [...] 20 mg/ml oral suspension (1 source) Uncompetitive F-jlbnkn-E-aspartat e Receptor Antagonist, Sigma-1 Agonist Start: 10-19-2020 End: [...] On Mon05/21/25 at 0120, For 1 dose docusate sodium 50 mg / sennosides, chcf 8.6 mg oral tablet (4 sources) Start: 12-07-2021 End: 07-04-2025 Sennosides-Docusate Sodium (Stool Softener-Stimulant Laxat) 8.6-50 mg Tablet Discontinued 2 {tbl} PO TWICE A DAY 60 0 December 07, 2021 1:00am July 04, 2025 9:54am Start: 10-21-2020 sennosides-doc usate sodium (SENOKOT-S) 8.6-50 MG tablet 2 tablet 0.4 ml enoxaparin sodium 100 mg/ml prefilled syringe (9 sources) Low Molecular Weight Heparin Start: 05-21-2025 End: 05-22-2025 inject 40 mg by subcutaneous injection every twenty-four hours 40 mg, SubCUTAneous, Every 24 hours scheduled (Daily), First dose on Mon05/22/25 at 0900, Indication of Use: Prophylaxis-DVT/PE, Indications: Prophylaxis of Venous Thromboembolism Start: 10-24-2020 [...] End: 10-24-2020 furosemide (LASIX) 10 MG/ML injection gabapentin 300 mg oral capsule (3 sources) Anti-epileptic Agent Start: 11-30-2021 End: 07-04-2025 take 1 capsule by mouth three times daily Gabapentin 300 mg capsule Discontinued 300 mg PO THREE TIMES A DAY November 30, 2021 1:00am July 04, 2025 9:54am PAIN gadopiclenol (Vueway) injection 10 mL (2 sources) [...] 10-24-2020 LORazepam (ATIVAN) 2 MG/ML i njection 5 ml metoprolol tartrate 1 mg/ml injection [...] (DEFINITY) injection 0.48 mg polyethylene glycol 3350 26103 mg powder for oral solution (3 sources) [...] Classification Problem Date Documented Da te Episodic/Chronic Acute posthemorrhagic anemia (3 sources) Acute posthemorrhagic anemia; Translations: [Acute posthemorrhagic anemia] 07-12-2025 Episodic Cardiac dysrhythmias (20 sources) Supraventricular tachycardia; Translations: [Supraventricular tachycardia] Onset: 1 09-12-2017 Chronic Conditions associated with dizziness or vertigo (15 sources) Vertigo; Translations: [Dizziness and giddiness] Onset: 5 12-20-2024 Episodic Essential hypertension (20 sources) Essential hypertension; Translations: [Essential (primary) hypertension] Onset: 1 11-04-2020 Chronic Fluid and electrolyte disorders (3 sources) Decreased plasma volume; Translations: [Hypovolemia] 07-12-2025 Episodic Headache; including migraine (3 sources) Headache; Translations: [Headache] 12-02-2021 Episodic Hyperplasia of prostate (20 sources) Benign prostatic hyperplasia; Translations: [Benign prostatic hyperplasia without lower urinary tract symptoms] Onset: 7 01-25-2017 Chronic Malaise and fatigue (3 sources) Asthenia; Translations: [Other malaise] 07-12-2025 Episodic Open wounds of extremities (4 sources) Laceration of right thumb; Translations: [Laceration without foreign body of right thumb without damage to nail, initial encounter] Onset: 5 06-09-2025 Episodic Other connective tissue disease (3 sources) History of lumbar fusion; Translations: [Arthrodesis status] 12-02-2021 Episodic Comment on above: 11/25/[address] Cruz Other lower respiratory disease (1 source) Cough; Translations: [Cough] Episodic Other lower respiratory disease (3 sources) Hypoxemia; Translations: [Hypoxemia] 07-12-2025 Episodic Comment on above: since he had COVID i n October of 2020......prior to that he was on BIPAP but did not need an O2 bleed in Other nervous system disorders (3 sources) Paresthesia of left lower limb; Translations: [Paresthesia of skin] 07-12-2025 Episodic Other nutritional; endocrine; and metabolic disorders (9 sources) Obesity caused by energy imbalance; Translations: [Class 1 obesity due to excess calories without serious comorbidity with body mass index (BMI) of 30.0 to 30.9 in adult] Onset: 1 07-29-2022 Chronic Other upper respiratory infections (7 sources) Sinusitis; Translations: [Chronic sinusitis, unspecified] Onset: [...] to COVID-19 virus] Onset: 1 11-04-2020 Episodic Residual codes; unclassified (3 sources) Obstructive sleep apnea syndrome; Translations: [Obstructive sleep apnea (adult) (pediatric)] 07-12-2025 Chronic Comment on above: on BIPAP Respiratory failure; insufficiency; arrest (adult) (20 sources) Chronic hypoxemic respiratory failure; Translations: [Chronic respiratory failure with hypoxia] Onset: 11-24-2020 Chronic Unclassified (1 source) Protein level [...] Spondylosis; intervertebral disc disorders; other back problems (18 sources) Chronic low back pain; Translations: [Chronic low back pain without sciatica] Onset: 09-22-2021 07-29-2022 Episodic Comment on above: resolved after the l umbar laminectomy and fusion Syncope (20 sources) Syncope; Translations: [Syncope and collapse] Onset: 09-12-2017 09-12-2017 Episodic Viral infection (20 sources) Other specified viral infection; Translations: [COVID-19] Onset: 10-19-2020 Episodic Results Test Name Value Interpretation Reference Range Facility 36on 08-13-2025 36 S: Patient spoke with [facility] nurse regarding boil B: Onset of symptoms/concern 1 week A: Patient reports a boil on his hip that is bigger than a quarter with pus colored center. Denies fevers. Requesting appointment for tomorrow. R: no openings tomorrow that I am able to schedule-advised patient that message would be forwarded to provider /office and that he could try calling back in the morning. Discussed warm compresses and otc pain relievers. Patient understands care advice. No further needs at this time. Patient instructed to call back with new or worsening symptoms. Reason for Disposition Boil > 2 inches across (> 5 cm; larger than a golf ball or ping pong ball) Protocols used: Boil (Skin Abscess)-ADULT-AH Normal [facility] Surgical pathology reportOrd ered By: Theodore Duarte Walter on 07-07-2025 Surgical pathology study [facility] 12 Lead EKGon 07-04-2025 12 Lead EKG [facility] [address] [place] [address] 12 Lead EKG 07/04/25 1010 MR#: [id number] Acct: [id number] Name: JOSEPH BROWN Rep #: [id number] : 1955 69 From: Dion Potter MD Attending Dr: Status: DEP ER Ordering Dr: Lawrence Abad MD Date: 07/04/25 Location: ED Sex: M C Admitted: Test Reason : GENERAL Blood Pressure : */* mmHG Vent. Rate : 72 BPM Atrial Rate : 72 BPM P-R Int : 122 ms QRS Dur : 92 ms QT Int : 394 ms P-R-T Axes : 44 18 47 degrees QTcB Int : 431 ms Normal sinus rhythm Nonspecific ST abnormality Abnormal ECG Confirmed by CELESTE KATZ, DION ([id number]), industrial editor FELISHA DEAN ([id number]) on 07/07/2025 8:01:26 AM Referred By: Confirmed By: DION POTTER MD 07/07/25 0801 Date Dion Potter MD CC: Dr. Lawrence Abad MD; Dr. Sheriec العلي MD Signed Normal [facility] Absolute lymphocyte countOrd ered By: Lawrence Abad on 07-04-2025 Lymphocytes Auto (Unsp spec) [#/Vol] 1.41 10*3/uL 0.83-4.51 [facility] Absolute neutrophil countOrd ered By: Lawrence Abad on 07-04-2025 Neutrophils (Bld) [#/Vol] 8.4 10*3/uL High 2.0-7.7 [facility] Anion gap in Serum or Plasma Ordered By: Lawrence Abad on 07-04-2025 Anion gap [Moles/Vol] 12 mmol/L 02-27 [facility] Automated lymphocyte count a s percentage of total leukocytesOrdered By: Lawrence Abad on 07-04-2025 Lymphocytes/100 WBC Auto (Unsp spec) 12.8 % Low [facility] BUN/creatinine ratioOrdered By: Lawrence Abad on 07-04-2025 Urea nitrogen/Creatinine [Mass ratio] 15.8 mg/mg 08-04 [facility] Basic Metabolic Profile (BMP )on 07-04-2025 GAP 12 Normal 02-27 [facility] Comment on above: Performed By: #### L 100.0100, L500.2500 #### [facility] [address] [place], [address] BUN/CRE 15.8 RATIO Normal 08-04 [facility] Comment on above: Performed By: #### L 100.0100, L500.2500 #### [facility] [address] [place], [address] Calcium [Mass/Vol] 8.7 mg/dL Normal 7.6-11.0 [facility] Comment on above: Performed By: #### L 100.0100, L500.2500 #### [facility] [address] [place], [address] Chloride [Moles/Vol] 103 mmol/L Normal 98-108 [facility] Comment on above: Performed By: #### L 100.0100, L500.2500 #### [facility] [address] [place], [address] CO2 [Moles/Vol] 22.3 mmol/L Normal 21.0-32.0 [facility] Comment on above: Performed By: #### L 100.0100, L500.2500 #### [facility] [address] [place], [address] Creatinine [Mass/Vol] 0.84 mg/dL Normal 0.70-1.20 [facility] Comment on above: Performed By: #### L 100.0100, L500.2500 #### [facility] [address] [place], [address] ECRCL 104.58 ml/min Normal 50-250 [facility] Comment on above: Performed By: #### L 100.0100, L500.2500 #### [facility] [address] [place], [address] GFR/1.73 sq M.predicted among non-blacks MDRD (S/P/Bld) [Vol rate/Area] 93 mL/min/{1.73_m2} Normal >60 [facility] Comment on above: Result Comment: mL/m in/1.73m2 CKD-EPI Creatinine Equation (2020) Performed By: #### L 100.0100, L500.2500 #### [facility] [address] [place], [address] Glucose [Mass/Vol] 133 mg/dL High 70-99 [facility] Comment on above: Performed By: #### L 100.0100, L500.2500 #### [facility] [address] [place], [address] Potassium [Moles/Vol] 4.1 mmol/L Normal 3.3-5.1 [facility] Comment on above: Performed By: #### L 100.0100, L500.2500 #### [facility] [address] [place], [address] Sodium [Moles/Vol] 137 mmol/L Normal 133-145 [facility] Comment on above: Performed By: #### L 100.0100, L500.2500 #### [facility] [address] [place], [address] Urea nitrogen [Mass/Vol] 13 mg/dL Normal 4-19 [facility] Comment on above: Performed By: #### L 100.0100, L500.2500 #### [facility] [address] [place], [address] Basophil percentageOrdered B y: Lawrence Abad on 07-04-2025 Basophils/100 WBC (Bld) 0.2 % 0-1 [facility] CBC W/Diff, Automatedon 06-16 Absolute Lymph 1.41 X10 3/uL Normal 0.83-4.51 [facility] Comment on above: Performed By: #### L 100.0100, L500.2500 #### [facility] [address] [place], [address] Absolute Neut 8.4 X10 3/uL High 2.0-7.7 [facility] Comment on above: Performed By: #### L 100.0100, L500.2500 #### [facility] [address] [place], [address] Basophils/100 WBC (Bld) 0.2 % Normal 0-1 [facility] Comment on above: Performed By: #### L 100.0100, L500.2500 #### [facility] [address] [place], [address] Eosinophils/100 WBC (Bld) 0.7 % Normal 0-5 [facility] Comment on above: Performed By: #### L 100.0100, L500.2500 #### [facility] [address] [place], [address] Erythrocyte distribution width (RBC) [Ratio] 13.9 % Normal 11.6-14.6 [facility] Comment on above: Performed By: #### L 100.0100, L500.2500 #### [facility] [address] [place], [address] Hematocrit (Bld) [Volume fraction] 40.5 % Normal 40-54 [facility] Comment on above: Performed By: #### L 100.0100, L500.2500 #### [facility] [address] [place], [address] Hemoglobin (Bld) [Mass/Vol] 13.4 g/dL Normal 13.0-16.5 [facility] Comment on above: Performed By: #### L 100.0100, L500.2500 #### [facility] [address] [place], [address] IG% 0.500 Normal 0.0-0.9 [facility] Comment on above: Result Comment: IG% - Immature Granulocytes (promyelocytes, myelocytes and metamyelocytes) > 1% indicates that a LEFT SHIFT is Present. Performed By: #### L 100.0100, L500.2500 #### [facility] [address] [place], [address] Lymphocytes/100 WBC (Bld) 12.8 % Low 19-41 [facility] Comment on above: Performed By: #### L 100.0100, L500.2500 #### [facility] [address] [place], [address] MCH (RBC) [Entitic mass] 30.6 pg Normal 27.0-32.0 [facility] Comment on above: Performed By: #### L 100.0100, L500.2500 #### [facility] [address] [place], [address] MCHC (RBC) [Mass/Vol] 33.1 g/dL Normal 32-36 [facility] Comment on above: Performed By: #### L 100.0100, L500.2500 #### [facility] [address] [place], [address] MCV (RBC) [Entitic vol] 92.5 fL Normal 80-94 [facility] Comment on above: Performed By: #### L 100.0100, L500.2500 #### [facility] [address] [place], [address] Monocytes/100 WBC (Bld) 10.0 % Normal 0-10 [facility] Comment on above: Performed By: #### L 100.0100, L500.2500 #### [facility] [address] [place], [address] Neutrophils/100 WBC (Bld) 75.8 % High 47-70 [facility] Comment on above: Performed By: #### L 100.0100, L500.2500 #### [facility] [address] [place], [address] Nucleated RBC (Bld) [#/Vol] 0 10*3/uL Normal 0-5 [facility] Comment on above: Performed By: #### L 100.0100, L500.2500 #### [facility] [address] [place], [address] Platelet mean volume (Bld) [Entitic vol] 10.2 fL Normal 6.2-12.0 [facility] Comment on above: Performed By: #### L 100.0100, L500.2500 #### [facility] [address] [place], [address] Platelets (Bld) [#/Vol] 165 10*3/uL Normal 150-450 [facility] Comment on above: Performed By: #### L 100.0100, L500.2500 #### [facility] [address] [place], [address] RBC (Bld) [#/Vol] 4.38 10*6/uL Low 4.6-6.2 [facility] Comment on above: Performed By: #### L 100.0100, L500.2500 #### [facility] [address] [place], [address] RDW SD 47.4 fl High 35.1-43.9 [facility] Comment on above: Performed By: #### L 100.0100, L500.2500 #### [facility] [address] [place], [address] WBC (Bld) [#/Vol] 11.0 10*3/uL Normal 4.4-11.0 [facility] Comment on above: Performed By: #### L 100.0100, L500.2500 #### [facility] [address] [place], [address] Carbon dioxide, total [Moles /volume] in Central venous bloodOrdered By: Lawrence Abad on 07-04-2025 CO2 [Moles/Vol] 22.3 mmol/L 21.0-32.0 [facility] Chloride assayOrdered By: Cedrick Abad on 07-04-2025 Chloride [Moles/Vol] 103 mmol/L 98-108 [facility] Electrocardiogram reportOrde red By: Dion Potter on 07-04-2025 EKG study [facility] [address] [place] [address] 12 Lead EKG 07/04/25 1010 MR#: [id number] Acct: [id number] Name: JOSEPH BROWN Rep #:[id number] : 1955 69 From: Dion Potter MD Attending Dr: Status: DEP E R Ordering Dr: Lawrence Abad MD Date: Location: ED Sex: M C Admitted: Test Reason : GENERAL Blood Pressure : */* mmHG Vent. Rate : 72 BPM Atrial Rate : 72 BPM P-R Int : 122 ms QRS Dur : 92 ms QT Int : 394 ms P-R-T Axes : 44 18 47 degrees QTcB Int : 431 ms Normal sinus rhythm Nonspecific ST abnormality Abnormal ECG Confirmed by DION POTTER MD ([id number]), industrial editor FELISHA DEAN ([id number]) on 07/07/2025 8:01:26 AM Referred By: Confirmed By: DION POTTER MD 07/07/25 0801 Date _ Dion Potter MD CC: Dr. Lawrence Abad MD; Dr. Sherice العلي MD ~ Signed [facility] Other Emergency Department Summary on 07-04-2025 Emergency Department Summary [facility] Medical Records Department [address] [place] [address] Emergency Department Summary 07/04/25 MR#: [id number] Acct: [id number] Name: JOSEPH BROWN Rep #: [id number] : 1955 69 From: Lawrence Abad MD PCP: Dr. Sherice العلي MD Status:REG ER Location: ED HPI History of Present Illness Chief Complaint: Syncope Narrative Narrative: 69-year-old male who denies significant past medical history is postoperative day 3 from surgery on his nasal septum by Dr. Johnson. He has nasal splints in place that come out Monday. He presents with his daughter because of 2 episodes of syncope that he had for approximately 30 seconds today. He states that around 4:00 in the morning, approximately 6 hours ago, he felt lightheaded and dizzy. His daughter reports that she heard from her mother that he passed out for about 30 seconds. She was going to call EMS but he started coming to. She went over to the house and around 6 AM, had another syncopal episode that was very brief. He has not been eating or drinking and is usually dehydrated. He denies any prodromal chest pain or shortness of breath. He feels back to baseline currently. Additionally, he states he is constipated but usually only has a bowel movement every 4 days. He presents because of the 2 brief syncopal episodes that he had. [facility] Medical History Obstructive sleep apnea Left leg paresthesias Chronic back pain Radicular pain of left lower extremity Osteoarthritis (arthritis due to wear and tear of joints) COVID-19 virus infection Lumbar stenosis Wears glasses History of steroid therapy Injury of back Former smoker On home oxygen therapy Shortness of breath on exertion History of pain when walking History of stress test Home Medications ???Medication ???Instructions ???Recorded ???Last Taken ???Type atorvastatin 40 mg tablet 40 mg PO QHS CHOLESTEROL 11/11/21 11/29/21 History acetaminophen 500 mg tablet 1,000 mg (2 x 500 mg) PO Q8 PRN Unknown Rx fever or pain #0 tabs meloxicam 15 mg tablet 15 mg PO DAILY 07/04/25 Unknown Hi story Allergy/AdvReac Type Severity Reaction Status Date / Time No Known Allergies Allergy Verified 07/04/25 09:42 Family History Mother CAD (coronary artery disease) Arthritis Surgical History Hx of colonoscopy Hx of cholecystectomy Hx of arthroscopy of left knee History of amputation of finger of right hand Social History adopted: No household members: spouse number of children: 2 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 No prodromal chest pain or shortness of breath. Transient lightheadedness and dizziness. Postoperative day 3 from nasal septum surgery. Has nasal splints in place. Denies any black stool recently. No nausea or vomiting. EXAM Physical Exam Narrative Exam Narrative: Afebrile. Vital signs noted. Nontoxic-appearing. Cardiovascular examination reveals regular rate and rhythm. Lungs are clear to auscultation bilaterally. Abdomen is soft and nontender with positive bowel sounds. Positive bandage nasal bridge, no bleeding from nares. No pallor of skin. Neurological examination nonfocal, nonlateralizing.. Awake, alert, oriented x 3. Moves all extremities. Const Vital Signs: 07/04/25 09:41 07/04/25 09:52 07/04/25 11:41 Temperature 97.1 F L 98.7 F Temperature Source Temporal Oral Pulse Rate 84 83 Respiratory Rate 14 18 Respiratory Effort Normal Non-Labored Respiratory Pattern Normal Blood Pressure 123/74 H 121/77 H Blood Pressure Mean 90 91 Pulse Ox 98 93 Oxygen Delivery Method Room Air Room Air MDM MDM MDM Narrative Medical decision making narrative: The differential diagnosis includes but not limited to dehydration versus other electrolyte abnormality versus orthostatic hypotension versus vasovagal syncope as he does have nasal splints in place. EKG will be obtained to help rule out dysrhythmia. I will check a CBC to ensure that he is not anemic because in the past, in review of his problem list he had acute blood loss anemia. Given his recent surgery, he may be anemic, but it does not appear that way clinically on examination. BMP will be obtained to help rule out d (more content not included)... Normal [facility] Eosinophil percentageOrdered By: Lawrence Abad on 07-04-2025 Eosinophils/100 WBC (Bld) 0.7 % 0-5 [facility] Erythrocyte distribution wid th ratioOrdered By: Lawrence Abad on 07-04-2025 Erythrocyte distribution width (RBC) [Ratio] 13.9 % 11.6-14.6 [facility] Erythrocyte distribution wid th standard deviationOrdered By: Lawrence Abad on 07-04-2025 Erythrocyte distribution width (RBC) [Ratio] 47.4 fl High 35.1-43.9 [facility] Glomerular filtration rate ( GFR) estimation/1.73 sq m using serum, plasma, or whole bOrdered By: Lawrence Abad on 07-04-2025 GFR/1.73 sq M.predicted among non-blacks MDRD (S/P/Bld) [Vol rate/Area] 93 mL/min/{1.73_m2} >60 [facility] Comment on above: mL/min/1.73m2 CKD-EP I Creatinine Equation (2020) Hematocrit Auto (Bld) [Volum e fraction]Ordered By: Lawrence Abad on 07-04-2025 Hematocrit (Bld) [Volume fraction] 40.5 % 40-54 [facility] Hemoglobin measurementOrdere d By: Lawrence Abad on 07-04-2025 Hemoglobin (Bld) [Mass/Vol] 13.4 g/dL 13.0-16.5 [facility] Immature granulocytes/100 WB C Auto (Bld)Ordered By: Lawrence Abad on 07-04-2025 Immature granulocytes/100 WBC (Bld) 0.500 % 0.0-0.9 [facility] Comment on above: IG% - Immature Granu locytes (promyelocytes, myelocytes and metamyelocytes) > 1% indicates that a LEFT SHIFT is Present. MCV (mean corpuscular volume ) determinationOrdered By: Lawrence Abad on 07-04-2025 MCV (RBC) [Entitic vol] 92.5 fL 80-94 [facility] Mean corpuscular hemoglobin (MCH) determinationOrdered By: Lawrence Abad on 07-04-2025 MCH (RBC) [Entitic mass] 30.6 pg 27.0-32.0 [facility] Mean corpuscular hemoglobin concentration (MCHC) determinationOrdered By: Lawrence Abad on 07-04-2025 MCHC (RBC) [Mass/Vol] 33.1 g/dL 32-36 [facility] Mean platelet volume determi nationOrdered By: Lawrence Abad on 07-04-2025 Platelet mean volume (Bld) [Entitic vol] 10.2 fL 6.2-12.0 [facility] Monocyte percentageOrdered B y: Lawrence Abad on 07-04-2025 Monocytes/100 WBC (Bld) 10.0 % 0-10 [facility] Neutrophil percentageOrdered By: Lawrence Abad on 07-04-2025 Neutrophils/100 WBC (Bld) 75.8 % High 47-70 [facility] Nucleated red blood cell per centageOrdered By: Lawrence Abad on 07-04-2025 Nucleated RBC/100 WBC (Bld) [Ratio] 0 % 0-5 [facility] Platelet countOrdered By: Cedrick Abad on 07-04-2025 Platelets (Bld) [#/Vol] 165 10*3/uL 150-450 [facility] Potassium measurement (mass/ volume)Ordered By: Lawrence Abad on 07-04-2025 Potassium (Unsp spec) [Mass/Vol] 4.1 mmol/L 3.3-5.1 [facility] RBC Auto (Bld) [#/Vol]Ordere d By: Lawrence Abad on 07-04-2025 RBC (Bld) [#/Vol] 4.38 10*6/uL Low 4.6-6.2 [facility] Serum creatinine measurement (mass/volume)Ordered By: Lawrence Abad on 07-04-2025 Creatinine [Mass/Vol] 0.84 mg/dL 0.70-1.20 [facility] Serum glucose measurement (m ass/volume)Ordered By: Lawrence Abad on 07-04-2025 Glucose [Mass/Vol] 133 mg/dL High 70-99 [facility] Serum or plasma calcium [place] urement (mass/volume)Ordered By: Lawrence Abad on 07-04-2025 Calcium [Mass/Vol] 8.7 mg/dL 7.6-11.0 [facility] Serum or plasma urea nitroge n measurement (mass/volume)Ordered By: Lawrence Abad on 07-04-2025 Urea nitrogen [Mass/Vol] 13 mg/dL 4-19 [facility] Sodium levelOrdered By: Lawrence Abad on 07-04-2025 Sodium [Moles/Vol] 137 mmol/L 133-145 [facility] White blood cell (WBC) count Ordered By: Lawrence Abad on 07-04-2025 WBC (Bld) [#/Vol] 11.0 10*3/uL 4.4-11.0 [facility] Decalcification bone/plaqueo n 07-01-2025 Decalcification bone/plaque Patient Age/Sex Location Account Attending Physician JOSEPH BROWN 69/M LABSPEC [id number] Rita Saeed Specimen: [id number] Received: 07/01/25 Status: JAZMÍN Castillo Num: [id number] Spec Type: ETH TISS Subm Dr: Dr. Haresh Johnson MD HEADER OPERATION: Open septo rhinoplasty, functional endoscopic sinus surgery PRE-OP DIAGNOSIS: Other chronic sinusitis TISSUE SUBMITTED: A- Left sinus contents, B- Right sinus contents MICROSCOPIC DIAGNOSIS A. Left sinus contents, open septo-rhinoplasty, functional endoscopic sinus surgery: - Nasal sinus mucosa with chronic inflammation, benign B. Right sinus contents, open septo-rhinoplasty, functional endoscopic sinus surgery: * Nasal sinus mucosa with chronic inflammation, benign MICROSCOPIC DESCRIPTION Slides are reviewed. GROSS DESCRIPTION Received in 2 formalin containers labeled with the patient's name and date of . Designated as: A. Left sinus contents is a 1.2 x 0.6 x 0.2 cm aggregate of pelaez-pink to red tissue fragments. Entirely submitted in 1 cassette. B. Right sinus contents is a 1.9 x 0.9 x 0.4 cm aggregate of pelaez tissue fragments, light brown mucoid material and portions of bone. Entirely submitted in 1 cassette, following decalcification. [place] 07/01/2025 CPT:82601,25215 Patient Age/Sex Location Account Attending Physician JOSEPH BROWN 69/M [facility]SPEC [id number] Rita Saeed Signed (signature on file) Dr. Theodore Haider MD 07/07/25 1600 Normal [facility] Comment on above: Performed By: #### P DEC #### [facility] [address] [place], [place], [id number] Anion gap in Serum or Plasma Ordered By: Haresh Johnson on 06-25-2025 Anion gap [Moles/Vol] 11 mmol/L 5-15 [facility] BUN/creatinine ratioOrdered By: Haresh Johnson on 06-25-2025 Urea nitrogen/Creatinine [Mass ratio] 20.6 mg/mg High 08-04 [facility] Basic Metabolic Profile (BMP )on 06-25-2025 BUN/CRE 20.6 RATIO High 08-04 [facility] Comment on above: Performed By: #### L 100.0500, L500.2500 #### [facility] [address] [place], [address] Calcium [Mass/Vol] 9.0 mg/dL Normal 7.6-11.0 [facility] Comment on above: Performed By: #### L 100.0500, L500.2500 #### [facility] [address] [place], [address] Chloride [Moles/Vol] 106 mmol/L Normal 98-108 [facility] Comment on above: Performed By: #### L 100.0500, L500.2500 #### [facility] [address] [place], [address] CO2 [Moles/Vol] 23.6 mmol/L Normal 21.0-32.0 [facility] Comment on above: Performed By: #### L 100.0500, L500.2500 #### [facility] [address] [place], [address] Creatinine [Mass/Vol] 0.86 mg/dL Normal 0.70-1.20 [facility] Comment on above: Performed By: #### L 100.0500, L500.2500 #### [facility] [address] [place], [address] GAP 11 Normal - [facility] Comment on above: Performed By: #### L 100.0500, L500.2500 #### [facility] [address] [place], [address] GFR/1.73 sq M.predicted among non-blacks MDRD (S/P/Bld) [Vol rate/Area] 93 mL/min/{1.73_m2} Normal >60 [facility] Comment on above: Result Comment: mL/m in/1.73m2 CKD-EPI Creatinine Equation (2020) Performed By: #### L 100.0500, L500.2500 #### [facility] [address] [place], [address] Glucose [Mass/Vol] 92 mg/dL Normal 70-99 [facility] Comment on above: Performed By: #### L 100.0500, L500.2500 #### [facility] [address] [place], [address] Potassium [Moles/Vol] 4.4 mmol/L Normal 3.3-5.1 [facility] Comment on above: Result Comment: Hemo lysis present, Results??could be affected. ?? Performed By: #### L 100.0500, L500.2500 #### [facility] [address] [place], [address] Sodium [Moles/Vol] 141 mmol/L Normal 133-145 [facility] Comment on above: Performed By: #### L 100.0500, L500.2500 #### [facility] [address] [place], [address] Urea nitrogen [Mass/Vol] 18 mg/dL Normal 4-19 [facility] Comment on above: Performed By: #### L 100.0500, L500.2500 #### [facility] [address] [place], [address] CBC-Complete Blood Cnt No Di ffon 06-25-2025 Erythrocyte distribution width (RBC) [Ratio] 13.7 % Normal 11.6-14.6 [facility] Comment on above: Performed By: #### L 100.0500, L500.2500 #### [facility] [address] [place], [address] Hematocrit (Bld) [Volume fraction] 44.1 % Normal 40-54 [facility] Comment on above: Performed By: #### L 100.0500, L500.2500 #### [facility] [address] [place], [address] Hemoglobin (Bld) [Mass/Vol] 14.8 g/dL Normal 13.0-16.5 [facility] Comment on above: Performed By: #### L 100.0500, L500.2500 #### [facility] [address] [place], [address] MCH (RBC) [Entitic mass] 30.9 pg Normal 27.0-32.0 [facility] Comment on above: Performed By: #### L 100.0500, L500.2500 #### [facility] [address] [place], [address] MCHC (RBC) [Mass/Vol] 33.6 g/dL Normal 32-36 [facility] Comment on above: Performed By: #### L 100.0500, L500.2500 #### [facility] [address] [place], [address] MCV (RBC) [Entitic vol] 92.1 fL Normal 80-94 [facility] Comment on above: Performed By: #### L 100.0500, L500.2500 #### [facility] [address] [place], [address] Platelet mean volume (Bld) [Entitic vol] 10.6 fL Normal 6.2-12.0 [facility] Comment on above: Performed By: #### L 100.0500, L500.2500 #### [facility] [address] [place], [address] Platelets (Bld) [#/Vol] 227 10*3/uL Normal 150-450 [facility] Comment on above: Performed By: #### L 100.0500, L500.2500 #### [facility] [address] [place], [address] RBC (Bld) [#/Vol] 4.79 10*6/uL Normal 4.6-6.2 [facility] Comment on above: Performed By: #### L 100.0500, L500.2500 #### [facility] [address] [place], [address] RDW SD 46.2 fl High 35.1-43.9 [facility] Comment on above: Performed By: #### L 100.0500, L500.2500 #### [facility] [address] [place], [address] WBC (Bld) [#/Vol] 8.8 10*3/uL Normal 4.4-11.0 [facility] Comment on above: Performed By: #### L 100.0500, L500.2500 #### [facility] [address] [place], [address] Carbon dioxide, total [Moles /volume] in Central venous bloodOrdered By: Haresh Johnson on 06-25-2025 CO2 [Moles/Vol] 23.6 mmol/L 21.0-32.0 [facility] Chloride assayOrdered By: Ricky Johnson on 06-25-2025 Chloride [Moles/Vol] 106 mmol/L 98-108 [facility] Erythrocyte distribution wid th ratioOrdered By: Haresh Johnson on 06-25-2025 Erythrocyte distribution width (RBC) [Ratio] 13.7 % 11.6-14.6 [facility] Erythrocyte distribution wid th standard deviationOrdered By: Haresh Johnson on 06-25-2025 Erythrocyte distribution width (RBC) [Ratio] 46.2 fl High 35.1-43.9 [facility] Glomerular filtration rate ( GFR) estimation/1.73 sq m using serum, plasma, or whole bOrdered By: Haresh Johnson on 06-25-2025 GFR/1.73 sq M.predicted among non-blacks MDRD (S/P/Bld) [Vol rate/Area] 93 mL/min/{1.73_m2} >60 [facility] Comment on above: mL/min/1.73m2 CKD-EP I Creatinine Equation (2020) Hematocrit Auto (Bld) [Volum e fraction]Ordered By: Haresh Johnson on 06-25-2025 Hematocrit (Bld) [Volume fraction] 44.1 % 40-54 [facility] Hemoglobin measurementOrdere d By: Haresh Johnson on 06-25-2025 Hemoglobin (Bld) [Mass/Vol] 14.8 g/dL 13.0-16.5 [facility] MCV (mean corpuscular volume ) determinationOrdered By: Haresh Johnson on 06-25-2025 MCV (RBC) [Entitic vol] 92.1 fL 80-94 [facility] Mean corpuscular hemoglobin (MCH) determinationOrdered By: Haresh Johnson on 06-25-2025 MCH (RBC) [Entitic mass] 30.9 pg 27.0-32.0 [facility] Mean corpuscular hemoglobin concentration (MCHC) determinationOrdered By: Haresh Johnson on 06-25-2025 MCHC (RBC) [Mass/Vol] 33.6 g/dL 32-36 [facility] Mean platelet volume determi nationOrdered By: Haresh Johnson on 06-25-2025 Platelet mean volume (Bld) [Entitic vol] 10.6 fL 6.2-12.0 [facility] Platelet countOrdered By: Ricky Johnson on 06-25-2025 Platelets (Bld) [#/Vol] 227 10*3/uL 150-450 [facility] Potassium measurement (mass/ volume)Ordered By: Haresh Johnson on 06-25-2025 Potassium (Unsp spec) [Mass/Vol] 4.4 mmol/L 3.3-5.1 [facility] Comment on above: Hemolysis present, R esults could be affected. RBC Auto (Bld) [#/Vol]Ordere d By: Haresh Johnson on 06-25-2025 RBC (Bld) [#/Vol] 4.79 10*6/uL 4.6-6.2 [facility] Serum creatinine measurement (mass/volume)Ordered By: Haresh Johnson on 06-25-2025 Creatinine [Mass/Vol] 0.86 mg/dL 0.70-1.20 [facility] Serum glucose measurement (m ass/volume)Ordered By: Haresh Johnson on 06-25-2025 Glucose [Mass/Vol] 92 mg/dL 70-99 [facility] Serum or plasma calcium merlin urement (mass/volume)Ordered By: Haresh Johnson on 06-25-2025 Calcium [Mass/Vol] 9.0 mg/dL 7.6-11.0 [facility] Serum or plasma urea nitroge n measurement (mass/volume)Ordered By: Haresh Johnson on 06-25-2025 Urea nitrogen [Mass/Vol] 18 mg/dL 4-19 [facility] Sodium levelOrdered By: Vivian Johnson on 06-25-2025 Sodium [Moles/Vol] 141 mmol/L 133-145 [facility] White blood cell (WBC) count Ordered By: Haresh Johnson on 06-25-2025 WBC (Bld) [#/Vol] 8.8 10*3/uL 4.4-11.0 [facility] CBC (H/H, RBC, INDICES, WBC, PLT)on 06-20-2025 Erythrocyte distribution width (RBC) [Ratio] 13.3 % Normal 11.0-15.0 [facility] Comment on above: Performed By: #### 7 600, 1759, 33643 #### [facility] [address], [address] [place], [place] [id number] [employer]ating Worker: Anton Bello MD Hematocrit (Bld) [Volume fraction] 46.4 % Normal 38.5-50.0 [facility] Comment on above: Performed By: #### 7 600, 1759, 24114 #### [facility] [address], [address] [place], [place] [id number] [employer]ating Worker: Anton Bello MD Hemoglobin (Bld) [Mass/Vol] 15.3 g/dL Normal 13.2-17.1 [facility] Comment on above: Performed By: #### 7 600, 175, 20903 #### [facility] [address], [address] [place] [address] [employer]ating And Ventilating Worker: Anton Bello MD MCH (RBC) [Entitic mass] 31.5 pg Normal 27.0-33.0 [facility] Comment on above: Performed By: #### 7 600, 175, 12075 #### [facility] [place] [address] [employer]ating [employer] Ventilating Worker: Anton Bello MD MCHC (RBC) [Mass/Vol] 33.0 g/dL Normal 32.0-36.[address] [facility] Comment on above: Result Comment: For adults, a slight decrease in the calculated MCHC value (in the range of 30 to 32 g/dL) is most likely not clinically significant; however, it should be interpreted with caution in correlation with other red cell parameters and the patient's clinical condition. Performed By: #### 7 600, 1758, 40696 #### [facility] [place] [address] [employer] Ventilating Worker: Anton Bello MD MCV (RBC) [Entitic vol] 95.5 fL Normal 80.0-100.0 [facility] Comment on above: Performed By: #### 7 600, 1758, 72212 #### [facility] [place] [address] [employer]ating [employer] Ventilating Worker: Anton Bello MD Platelet mean volume (Bld) [Entitic vol] 10.5 fL Normal 7.5-12.5 [facility] Comment on above: Performed By: #### 7 600, 175, 39557 #### [facility] [place] [address] [employer]ating [employer] Ventilating Worker: Anton Bello MD Platelets (Bld) [#/Vol] 221 10*3/uL Normal 140-400 [facility] Comment on above: Performed By: #### 7 600, 175, 14044 #### [facility] of [place] [address] [employer]ating [employer] Ventilating Worker: Anton Bello MD RBC (Bld) [#/Vol] 4.86 10*6/uL Normal 4.20-5.80 [facility] Comment on above: Performed By: #### 7 600, 175, 59370 #### [facility] of [place] [address] Heating And Ventilating Worker: Anton Bello MD WBC (Bld) [#/Vol] 8.6 10*3/uL Normal 3.8-10.8 [facility] Comment on above: Performed By: #### 7 600, 175, 27398 #### [facility] of [place] [address] [employer]ating And Ventilating Worker: Anton Bello MD [facility] 06-20-2025 Albumin [Mass/Vol] 4.3 g/dL Normal 3.6-5.1 [facility] Comment on above: Performed By: #### 7 600, 175, 78752 #### [facility] [place] [address] [employer]ating And Ventilating Worker: Anton Bello MD Albumin/Globulin [Mass ratio] 1.8 {ratio} Normal 1.0-2.5 [facility] Comment on above: Performed By: #### 7 600, 175, 87047 #### [facility] [place] [address] [employer]ating And Ventilating Worker: Anton Bello MD ALP [Catalytic activity/Vol] 62 U/L Normal 35-144 [facility] Comment on above: Performed By: #### 7 600, 175, 27835 #### [facility] [place] [address] [employer]ating And Ventilating Worker: Anton Bello MD ALT [Catalytic activity/Vol] 15 U/L Normal 9-46 [facility] Comment on above: Performed By: #### 7 600, 175, 37055 #### [facility] of [address], [address] [place] [address] Heating And Ventilating Worker: Anton Bello MD AST [Catalytic activity/Vol] 19 U/L Normal 10-35 [facility] Comment on above: Performed By: #### 7 600, 175, 43448 #### [facility] of [address], [address] [place] [address] [employer]ating And Ventilating Worker: Anton Bello MD Bilirubin [Mass/Vol] 0.7 mg/dL Normal 0.2-1.2 [facility] Comment on above: Performed By: #### 7 600, 175, 32002 #### [facility] of [address], [address] [place] [address] Heating And Ventilating Worker: Anton Bello MD BUN/CREATININE RATIO SEE NOTE: Normal 6-22 [facility] Comment on above: Result Comment: Not Reported: BUN and Creatinine are within reference range. Performed By: #### 7 600, 175, 06042 #### [facility] of [address], [address] [place] [address] Heating And Ventilating Worker: Anton Bello MD Calcium [Mass/Vol] 8.7 mg/dL Normal 8.6-10.3 [facility] Comment on above: Performed By: #### 7 600, 175, 59330 #### [facility] of [address], [address] [place] [address] Heating And Ventilating Worker: Anton Bello MD Chloride [Moles/Vol] 106 mmol/L Normal 98-110 [facility] Comment on above: Performed By: #### 7 600, 175, 91746 #### [facility] of [address], [address] [place] [address] [employer]ating And Ventilating Worker: Anton Bello MD CO2 [Moles/Vol] 26 mmol/L Normal 20-32 [facility] Comment on above: Performed By: #### 7 600, 175, 90484 #### [facility] of [address], [address] [place] [address] [employer]ating And Ventilating Worker: Anton Bello MD Creatinine [Mass/Vol] 0.91 mg/dL Normal 0.70-1.[address] [facility] Comment on above: Performed By: #### 7 600, 175, 59805 #### [facility] of [address], [address] [place] [address] [employer]ating And Ventilating Worker: Anton Bello MD GFR/1.73 sq M.predicted among non-blacks MDRD (S/P/Bld) [Vol rate/Area] 90 mL/min/{1.73_m2} Normal > OR = 60 [facility] Comment on above: Performed By: #### 7 600, 175, 12336 #### [facility] of [address], [address] [place] [address] Heating And Ventilating Worker: Anton Bello MD Globulin (S) [Mass/Vol] 2.4 g/dL Normal 1.9-3.7 [facility] Comment on above: Performed By: #### 7 600, 1758, 64498 #### [facility] of [address], [address] [place] [address] Heating And Ventilating Worker: Anton Bello MD Glucose [Mass/Vol] 74 mg/dL Normal 65-99 [facility] Comment on above: Result Comment: Fasting reference interval Performed By: #### 7 600, 175, 10246 #### [facility] of [address], [address] [place] [address] Heating And Ventilating Worker: Anton Bello MD Potassium [Moles/Vol] 4.4 mmol/L Normal 3.5-5.[address] [facility] Comment on above: Performed By: #### 7 600, 175, 50004 #### [facility] [place] [address] [employer]ating And Ventilating Worker: Anton Bello MD Protein [Mass/Vol] 6.7 g/dL Normal 6.1-8.1 [facility] Comment on above: Performed By: #### 7 600, 175, 39000 #### [facility] [place] [address] [place] [address] Heating And Ventilating Worker: Anton Bello MD Sodium [Moles/Vol] 142 mmol/L Normal 135-146 [facility] Comment on above: Performed By: #### 7 600, 175, 00793 #### [facility] [place] [address] Heating And Ventilating Worker: Anton Bello MD Urea nitrogen [Mass/Vol] 20 mg/dL Normal 7-25 [facility] Comment on above: Performed By: #### 7 600, 175, 54785 #### [facility] [place] [address] [employer]ating And Ventilating Worker: Anton Bello MD LIPID PANEL, STANDARD Cholesterol [Mass/Vol] 144 mg/dL Normal <200 [facility] Comment on above: Order Comment: 0; 0; 0 Performed By: #### 7 600, 175, 21122 #### [facility] [place] [address] [employer]ating And Ventilating Worker: Anton Bello MD Cholesterol in HDL [Mass/Vol] 51 mg/dL Normal > OR = 40 [facility] Comment on above: Order Comment: 0; 0; 0 Performed By: #### 7 600, 175, 89030 #### [facility] [place] [address] Heating And Ventilating Worker: Anton Bello MD Cholesterol in LDL [Mass/Vol] 74 mg/dL Normal [facility] Comment on above: Order Comment: 0; 0; 0 Result Comment: Refe rence range: <100 Desirable range <100 mg/dL for primary prevention; <70 mg/dL for patients with CHD or diabetic patients with > or = 2 CHD risk factors. LDL-C is now calculated using the Karina calculation, which is a validated novel method providing better accuracy than the Friedewald equation in the estimation of LDL-C. Ivan LARSON et al. SHEILA. 2013;310(19): 7193-4341 (http://education.[employer].Torbit/faq/URG545) Performed By: #### 7 600, 1759, 13030 #### [facility] [address], [address] [place] [address] Heating And Ventilating Worker: Anton Bello MD Cholesterol.total/Choles terol in HDL [Mass ratio] 2.8 {ratio} Normal <5.0 [facility] Comment on above: Order Comment: 0; 0; 0 Performed By: #### 7 600, 1759, 68407 #### [facility] [address], [address] [place] [address] Heating And Ventilating Worker: Anton Bello MD NON HDL CHOLESTEROL 93 mg/dL (calc) Normal <130 [facility] Comment on above: Order Comment: 0; 0; 0 Result Comment: For patients with diabetes plus 1 major ASCVD risk factor, treating to a non-HDL-C goal of <100 mg/dL (LDL-C of <70 mg/dL) is considered a therapeutic option. Performed By: #### 7 600, 175, 03005 #### [facility] [place] [address] Heating And Ventilating Worker: Anton Bello MD Triglyceride [Mass/Vol] 108 mg/dL Normal <150 [facility] Comment on above: Order Comment: 0; 0; 0 Performed By: #### 7 600, 175, 15545 #### [facility] [place] [address] Heating And Ventilating Worker: Anton Bello MD ED Provider Noteon ED [...] signed) Em (more content not included)... Normal [facility] ED Provider Note Emergency Department Encounter [facility] ED Patient: Joseph Brown : 1955 Date [...] Solutions Marjorie Sears MD 06/09/25 1534 Normal [facility] CBC (HEMOGRAM)on 05-22-2025 Erythrocyte distribution width (RBC) [Ratio] 14.0 % Normal 11.5-15.0 [facility] Comment on above: Performed By: #### L [id number] ####Heating And Ventilating Worker: HAILEY HERNANDEZ ([id number])[facility] ([facility])[address] Hematocrit (Bld) [Volume fraction] 43.3 % Normal 40.0-52.0 [facility] Comment on above: Performed By: #### L AB294 ####Heating And Ventilating Worker: HAILEY HERNANDEZ ([id number])[facility] ([facility])[address] [place] [address] Hemoglobin (Bld) [Mass/Vol] 14.2 g/dL Normal 13.0-18.0 [facility] Comment on above: Performed By: #### L AB294 ####Heating And Ventilating Worker: HAILEY HERNANDEZ ([id number])[facility] ([facility])[address] MCH (RBC) [Entitic mass] 30.7 pg Normal 26.0-34.0 [facility] Comment on above: Performed By: #### L AB294 ####Heating And Ventilating Worker: HAILEY HERNANDEZ ([id number])[facility] MCHC 32.8 % Normal 30.5-36.0 [facility] Comment on above: Performed By: #### L AB294 ####Heating And Ventilating Worker: HAILEY HERNANDEZ ([id number])[facility] MCV (RBC) [Entitic vol] 93.5 fL Normal 77.0-99.0 [facility] Comment on above: Performed By: #### L AB294 ####Heating And Ventilating Worker: HAILEY GAITANLUCERO ([phone])[facility]ITAL[facility] ([facility])[address] Platelet mean volume (Bld) [Entitic vol] 10.4 fL Normal 9.0-12.7 [facility] Comment on above: Performed By: #### L AB294 ####Heating And Ventilating Worker: HAILEY DAVID ([id number])[facility] HOSPITALBettina MARTINEZDIGNITY [facility] (SBHLAB)[address] Platelets (Bld) [#/Vol] 184 10*3/uL Normal 140-440 [facility] Comment on above: Performed By: #### L [id number] ####Heating And Ventilating Worker: HAILEY BREWERELVIRA ([id number])[facility] HOSPITALBettina [place] (SBHLAB)[address] RBC (Bld) [#/Vol] 4.63 10*6/uL Normal 4.40-5.90 [facility] Comment on above: Performed By: #### L [id number] ####Heating And Ventilating Worker: HAILEY BREWERELVIRA ([id number])[facility] HOSPITALBettina [place] (SBHLAB)[address] WBC (Bld) [#/Vol] 8.2 10*3/uL Normal 3.6-10.7 [facility] Comment on above: Performed By: #### L [id number] ####Heating And Ventilating Worker: HAILEY GAITANLUCERO ([id number])[facility] (SBHLAB)[address] CBC panel Auto (Bld)on 05-22 Erythrocyte distribution width (RBC) [Ratio] 14 % 11.5 - 15.0 % [facility] Hematocrit (Bld) [Volume fraction] 43.3 % 40.0 - 52.0 % [facility] Hemoglobin (Bld) [Mass/Vol] 14.2 g/dL 13.0 - 18.0 g/dL [facility] Interpretation and review of laboratory results Normal [facility] MCH (RBC) [Entitic mass] 30.7 pg 26. 0 - 34.0 pg [facility] MCHC (RBC) [Mass/Vol] 32.8 % 30.5 - 36.0 % [facility] MCV (RBC) [Entitic vol] 93.5 fL 77.0 - 99.0 fL [facility] Platelet mean volume (Bld) [Entitic vol] 10.4 fL 9.0 - 12.7 fL [facility] Platelets (Bld) [#/Vol] 184 10*3/uL 140 - 440 10*3/uL [facility] RBC (Bld) [#/Vol] 4.63 10*6/uL 4.40 - 5.9 0 10*6/uL [facility] WBC (Bld) [#/Vol] 8.2 10*3/uL 3.6 - 10.7 10*3/uL [facility] COMPREHENSIVE METABOLIC PANE [place] 05-22-2025 Albumin [Mass/Vol] 3.5 g/dL Normal 3.4-4.8 [facility] Comment on above: Performed By: #### L AB17, LAB18 ####Heating And Ventilating Worker: HAILEY HERNANDEZ ([id number])[facility] (SBHLAB)[address] ALP [Catalytic activity/Vol] 59 U/L Normal 40-150 [facility] Comment on above: Performed By: #### L AB17, LAB18 ####Heating And Ventilating Worker: HAILEY HERNANDEZ ([id number])[facility] (SBHLAB)[address] ALT [Catalytic activity/Vol] 19 U/L Normal <40 [facility] Comment on above: Performed By: #### L AB17, LAB18 ####Heating And Ventilating Worker: HAILEY HERNANDEZ ([id number])[facility] (SBHLAB)[address] Anion gap [Moles/Vol] 8 mmol/L Normal 3-13 [facility] Comment on above: Performed By: #### L AB17, LAB18 ####Heating And Ventilating Worker: HAILEY HERNANDEZ ([id number])[facility] (SBHLAB)[address] AST [Catalytic activity/Vol] 23 U/L Normal <34 [facility] Comment on above: Performed By: #### L AB17, LAB18 ####Heating And Ventilating Worker: HAILEY HERNANDEZ ([id number])[facility] [place] (SBHLAB)[address] Bilirubin [Mass/Vol] 0.4 mg/dL Normal <1.2 [facility] Comment on above: Performed By: #### L AB17, LAB18 ####Heating And Ventilating Worker: HAILEY HERNANDEZ ([id number])[facility] HOS[facility]ITALA [place] (SBHLAB)[address] Calcium [Mass/Vol] 8.7 mg/dL Low 8.8-10.0 [facility] Comment on above: Performed By: #### L AB17, LAB18 ####Heating And Ventilating Worker: HAILEY HERNANDEZ ([id number])[facility]ITALA [place] (SBHLAB)[address] Chloride [Moles/Vol] 112 mmol/L High 98-107 [facility] Comment on above: Performed By: #### L AB17, LAB18 ####Heating And Ventilating Worker: HAILEY HERNANDEZ ([id number])[facility]ITALA [place] (SBHLAB)[address] CO2 [Moles/Vol] 22 mmol/L Low 23-31 [facility] Comment on above: Performed By: #### L AB17, LAB18 ####Heating And Ventilating Worker: HAILEY HERNANDEZ ([id number])[facility]ITALA [place] (SBHLAB)[address] [place] [address] [place] Creatinine [Mass/Vol] 0.83 mg/dL Normal 0.72-1.25 [facility] Comment on above: Performed By: #### L AB17, LAB18 ####Heating And Ventilating Worker: HAILEY HERNANDEZ ([id number])[facility]ITALA [place] (SBHLAB)[address] [place] [address] [place] GLOMERULAR FILTRATION RATE ML/MIN/1.73 SQ M.PREDICTED >90.0 Normal >60.0 [facility] Comment on above: Result Comment: Calc ulation based on the Chronic Kidney Disease Epidemiology Collaboration (CKD-EPI) equation refit without adjustment for race Performed By: #### L AB17, LAB18 ####Heating And Ventilating Worker: HAILEY HERNANDEZ ([id number])[facility] (SBHLAB)[address] [place] [address] [place] Glucose [Mass/Vol] 101 mg/dL Normal 82-115 [facility] Comment on above: Performed By: #### L AB17, LAB18 ####Heating And Ventilating Worker: HAILEY HERNANDEZ ([id number])[facility] (SBHLAB)[address] Potassium [Moles/Vol] 4.5 mmol/L Normal 3.5-5.1 [facility] Comment on above: Result Comment: [facility] potassium values may be up to 0.5 mmol/L lower than serum values. Performed By: #### L AB17, LAB18 ####Heating And Ventilating Worker: HAILEY HERNANDEZ ([id number])[facility] (SBHLAB)[address] [place] [address] [place] Protein [Mass/Vol] 6.4 g/dL Normal 6.4-8.3 [facility] Comment on above: Performed By: #### L AB17, LAB18 ####Heating And Ventilating Worker: HAILEY HERNANDEZ ([id number])[facility] (SBHLAB)[address] [place] [address] [place] Sodium [Moles/Vol] 142 mmol/L Normal 136-145 [facility] Comment on above: Performed By: #### L AB17, LAB18 ####Heating And Ventilating Worker: HAILEY HERNANDEZ ([id number])[facility] (SBHLAB)[address] [place] [address] [place] Urea nitrogen [Mass/Vol] 19 mg/dL Normal 9-23 [facility] Comment on above: Performed By: #### L AB17, LAB18 ####Heating And Ventilating Worker: HAILEY HERNANDEZ ([id number])[facility] [place] (SBHLAB)[address] [place] [address] Comprehensive metabolic 1998 panelon 05-22-2025 Albumin [Mass/Vol] 3.5 g/dL 3.4 - 4.8 g/dL [facility] ALP [Catalytic activity/Vol] 59 U/L 40 - 150 U/L [facility] ALT [Catalytic activity/Vol] 19 U/L NINF - 40 U/L [facility] Anion gap [Moles/Vol] 8 mmol/L 3 - 13 mmol/L [facility] AST [Catalytic activity/Vol] 23 U/L NINF - 34 U/L [facility] Bilirubin [Mass/Vol] 0.4 mg/dL NINF - 1.2 mg/dL [facility] Calcium [Mass/Vol] 8.7 mg/dL Low 8.8 - 10. 0 mg/dL [facility] Chloride [Moles/Vol] 112 mmol/L High 98 - 10 7 mmol/L [facility] CO2 [Moles/Vol] 22 mmol/L Low 23 - 31 mmol/L [facility] Creatinine [Mass/Vol] 0.83 mg/dL 0.72 - 1.25 mg/dL [facility] GFR/1.73 sq M.predicted (S/P/Bld) [Vol rate/Area] - PINF [facility] Comment on above: Calculation based on the Chronic Kidney Disease Epidemiology Collaboration (CKD-EPI) equation refit without adjustment for race Glucose [Mass/Vol] 101 mg/dL 82 - 115 mg/dL [facility] Potassium [Moles/Vol] 4.5 mmol/L 3.5 - 5.1 mmol/L [facility] Comment on above: Plasma potassium frank ues may be up to 0.5 mmol/L lower than serum values. Protein [Mass/Vol] 6.4 g/dL 6.4 - 8.3 g/dL [facility] Sodium [Moles/Vol] 142 mmol/L 136 - 145 mmol/L [facility] Urea nitrogen [Mass/Vol] 19 mg/dL 9 - 23 mg/d L [facility] HEMOGLOBIN A1Con 05-22-2025 Glucose [Mass/Vol] 108 mg/dL Normal [facility] Comment on above: Result Comment: ORDE R COMMENTS: HbA1c values of 5.7-6.4 percent indicate an increased risk for developing diabetes mellitus. HbA1c values greater than or equal to 6.5 percent are diagnostic of diabetes mellitus. For diagnosis of diabetes in individuals without unequivocal hyperglycemia, results should be confirmed by repeat testing. Performed By: #### L AB90 ####Heating And Ventilating Worker: HAILEY HERNANDEZ ([id number])[facility]ITALRa[facility] (SBHLAB)[address] HEMOGLOBIN A1C 5.4 %HbA1C Normal <5.7 [facility] Comment on above: Result Comment: Norm al less than 5.7% Prediabetes 5.7% to 6.4% Diabetes 6.5% or higher --HgbA1C levels may not be accurate in patients who have renal disease, received recent blood transfusions, are anemic, or who have dyshemoglobinemia. Performed By: #### L AB90 ####Heating And Ventilating Worker: HAILEY HERNANDEZ ([id number])[facility] (SBHLAB)[address] LIPID PANELon 05-22-2025 Cholesterol [Mass/Vol] 139 mg/dL Normal <200 [facility] Comment on above: Performed By: #### L AB17, LAB18 ####Heating And Ventilating Worker: HAILEY HERNANDEZ ([id number])[facility] (SBHLAB)[address] Cholesterol in HDL [Mass/Vol] 44 mg/dL Low >=60 [facility] Comment on above: Performed By: #### L AB17, LAB18 ####Heating And Ventilating Worker: HAILEY HERNANDEZ ([id number])[facility] (SBHLAB)[address] Cholesterol.total/Choles terol in HDL [Mass ratio] 3 {ratio} Normal [facility] Comment on above: Result Comment: Ref Range: < 3 Low Risk for CHD 3-6 Mod Risk for CHD > 6 High Risk for CHD Performed By: #### L AB17, LAB18 ####Heating And Ventilating Worker: HAILEY HERNANDEZ ([id number])[facility] (SBHLAB)[address] LOW DENSITY LIPOPROTEIN 77 mg/dL Normal 0-<100 [facility] Comment on above: Performed By: #### L AB17, LAB18 ####Heating And Ventilating Worker: HAILEY BREWERWilliamsLUCERO ([id number])[facility] HOSPITALBettina [place] (SBHLAB)[address] NON-HDL CHOLESTEROL, CALCULATED 95 Normal <130 [facility] Comment on above: Performed By: #### L AB17, LAB18 ####Heating And Ventilating Worker: HAILEY HERNANDEZ ([id number])[facility]OSPITALBettina MARTINEZD[facility] (SBHLAB)[address] Triglyceride [Mass/Vol] 92 mg/dL Normal <150 [facility] Comment on above: Performed By: #### L AB17, LAB18 ####Heating And Ventilating Worker: HAILEY HERNANDEZ ([id number])[facility] HOSPITALBettina [place] (SBHLAB)[address] VERY LOW DENSITY LIPOPROTEIN, CALCULATED 18 mg/dL Normal <=30 [facility] Comment on above: Performed By: #### L AB17, LAB18 ####Heating And Ventilating Worker: HAILEY BREWERELVIRA ([id number])[facility] HOSPITALBettina [place] (SBHLAB)[address] Laboratory - Chemistry and C hemistry - challengeon 05-22-2025 Average glucose Estimated from glycated hemoglobin (Bld) [Mass/Vol] 108 mg/dL [facility] Laboratory - Hematology and Cell countson 05-22-2025 HbA1c (Bld) [Mass fraction] 5.4 % [facility] Comment on above: Normal less than 5.7 % Prediabetes 5.7% to 6.4% Diabetes 6.5% or higher --HgbA1C levels may not be accurate in patients who have renal disease, received recent blood transfusions, are anemic, or who have dyshemoglobinemia. Lipid 1996 panelon 5 Cholesterol [Mass/Vol] 139 mg/dL [facility] - 200 mg/dL [facility] Cholesterol in HDL [Mass/Vol] 44 mg/dL Low 60 - PINF mg/dL [facility] Cholesterol in LDL [Mass/Vol] 77 mg/dL 0 - <100 [facility] Cholesterol.total/Choles terol in HDL [Mass ratio] 3 {ratio} [facility] Comment on above: Ref Range: < 3 Low Risk for CHD 3-6 Mod Risk for CHD > 6 High Risk for CHD NON-HDL CHOLESTEROL, CALCULATED 95 NINF - 130 [facility] Triglyceride [Mass/Vol] 92 mg/dL [facility] mg/dL [facility] VERY LOW DENSITY LIPOPROTEIN, CALCULATED 18 mg/dL NINF - 30 mg/dL [facility] No Panel Informationon 05-22 HbA1c values of 5.7-6.4 percent indicate an increased risk for developing diabetes mellitus. HbA1c values greater than or equal to 6.5 percent are diagnostic of diabetes mellitus. For diagnosis of diabetes in individuals without unequivocal hyperglycemia, results should be confirmed by repeat testing. [facility] Interpretation and review of laboratory results Abnormal [facility] Nursing Noteon 05-22-2025 Nursing Note Pt given and educated on discharge instructions. Pt and family have no questions at this time. IV removed. Pt discharged to private vehicle. Normal [facility] Progress Noteon 05-22-2025 Progress Note OCCUPATIONAL THERAPY [facility] Name/MRN: Joseph Brown ([id number]) Date: 05/22/2025 Therapy eval and treat orders received for if Elena < 100 and below baseline. Elena noted to be 100 this admission. Will discontinue orders at this time. Should pt demo a change in status, please reorder OT services. Mikie Chavira, OT Normal [facility] Progress Note PHYSICAL THERAPY [facility] Name/MRN: Joseph Brown ([id number]) Date: 05/22/2025 Chart review completed, pt currently has a Elena score of 100 with PT orders to eval and treat with Elena score <100. Will complete current orders. Please re-order if status changes. Lissette Cruz, PT Normal [facility] CBC W Auto Differential pane l (Bld)on 05-21-2025 Basophils (Bld) [#/Vol] 0 10*3/uL 0.0 - 0.2 10*3/uL [facility] Basophils/100 WBC (Bld) 0.5 % 0.0 - 2.0 % [facility] Eosinophils (Bld) [#/Vol] 0.5 10*3/uL 0.0 - 0.5 10*3/uL [facility] Eosinophils/100 WBC (Bld) 5.2 % 0.0 - 6.0 % [facility] Erythrocyte distribution width (RBC) [Ratio] 13.8 % 11.5 - 15.0 % [facility] Hematocrit (Bld) [Volume fraction] 41.1 % 40.0 - 52.0 % [facility] Hemoglobin (Bld) [Mass/Vol] 13.7 g/dL 13.0 - 18.0 g/dL [facility] Immature granulocytes (Bld) [#/Vol] 0 10*3/uL NINF - 0.1 10*3/uL [facility] Immature granulocytes/100 WBC (Bld) 0.5 % 0.0 - 2.0 % [facility] Interpretation and review of laboratory results Normal [facility] Lymphocytes (Bld) [#/Vol] 1.8 10*3/uL 1.0 - 4.3 10*3/uL [facility] Lymphocytes/100 WBC (Bld) 20.8 % 15.0 - 45.0 % [facility] MCH (RBC) [Entitic mass] 30.9 pg 26. 0 - 34.0 pg [facility] MCHC (RBC) [Mass/Vol] 33.3 % 30.5 - 36.0 % [facility] MCV (RBC) [Entitic vol] 92.8 fL 77.0 - 99.0 fL [facility] Monocytes (Bld) [#/Vol] 0.8 10*3/uL 0.0 - 0.9 10*3/uL [facility] Monocytes/100 WBC (Bld) 8.7 % 5.0 - 13.0 % [facility] Neutrophils (Bld) [#/Vol] 5.6 10*3/uL 1.8 - 7.5 10*3/uL [facility] Neutrophils/100 WBC (Bld) 64.3 % 38.0 - 82.0 % [facility] Nucleated RBC/100 WBC (Bld) [Ratio] 0 % [facility] Platelet mean volume (Bld) [Entitic vol] 10.6 fL 9.0 - 12.7 fL [facility] Platelets (Bld) [#/Vol] 179 10*3/uL 140 - 440 10*3/uL [facility] RBC (Bld) [#/Vol] 4.43 10*6/uL 4.40 - 5.9 0 10*6/uL [facility] WBC (Bld) [#/Vol] 8.7 10*3/uL 3.6 - 10.7 10*3/uL [facility] CBC WITH AUTO DIFFERENTIALon 05-21-2025 Basophils (Bld) [#/Vol] 0.0 10*3/uL Normal 0.0-0.2 [facility] Comment on above: Performed By: #### L [id number] ####Heating And Ventilating Worker: HAILEY HERNANDEZ ([id number])[facility]ITALA [facility]N (SBHLAB)[address] [place] [address] Basophils/100 WBC (Bld) 0.5 % Normal 0.0-2.0 [facility] Comment on above: Performed By: #### L [id number] ####Heating And Ventilating Worker: HAILEY HERNANDEZ ([id number])[facility] (SBHLAB)[address] Eosinophils (Bld) [#/Vol] 0.5 10*3/uL Normal 0.0-0.5 [facility] Comment on above: Performed By: #### L [id number] ####Heating And Ventilating Worker: HAILEY HERNANDEZ ([id number])[facility] (SBHLAB)[address] Eosinophils/100 WBC (Bld) 5.2 % Normal 0.0-6.0 [facility] Comment on above: Performed By: #### L [id number] ####Heating And Ventilating Worker: HAILEY HERNANDEZ ([id number])[facility] (SBHLAB)[address] Erythrocyte distribution width (RBC) [Ratio] 13.8 % Normal 11.5-15.0 [facility] Comment on above: Performed By: #### L [id number] ####Heating And Ventilating Worker: HAILEY HERNANDEZ ([id number])[facility]ITALA [facility] (SBAB)[address] [place] [address] Hematocrit (Bld) [Volume fraction] 41.1 % Normal 40.0-52.0 [facility] Comment on above: Performed By: #### L [id number] ####Heating And Ventilating Worker: HAILEY GAITANLUCERO ([id number])[facility] ([facility])[address] [place] [address] Hemoglobin (Bld) [Mass/Vol] 13.7 g/dL Normal 13.0-18.0 [facility] Comment on above: Performed By: #### L [id number] ####Heating And Ventilating Worker: HAILEY HERNANDEZ ([id number])[facility] ([facility])[address] [place] [address] IMMATURE GRANS % 0.5 % Normal 0.0-2.0 [facility] Comment on above: Performed By: #### L [id number] ####Heating And Ventilating Worker: HAILEY GAITANLUCERO ([id number])[facility] ([facility])[address] [place] [address] IMMATURE GRANS ABSOLUTE 0.0 10*3/uL Normal <0.1 [facility] Comment on above: Performed By: #### L [id number] ####Heating And Ventilating Worker: HAILEY HERNANDEZ ([id number])[facility] ([facility])[address] [place] [address] Lymphocytes (Bld) [#/Vol] 1.8 10*3/uL Normal 1.0-4.3 [facility] Comment on above: Performed By: #### L [id number] ####Heating And Ventilating Worker: HAILEY HERNANDEZ ([id number])[facility] ([facility])[address] Lymphocytes/100 WBC (Bld) 20.8 % Normal 15.0-45.0 [facility] Comment on above: Performed By: #### L [id number] ####Heating And Ventilating Worker: HAILEY HERNANDEZ ([id number])[facility] MARTINEZ[facility] (SBHLAB)[address] MCH (RBC) [Entitic mass] 30.9 pg Normal 26.0-34.0 [facility] Comment on above: Performed By: #### L [id number] ####Heating And Ventilating Worker: HAILEY HERNANDEZ ([id number])[facility] (SBHLAB)[address] MCHC 33.3 % Normal 30.5-36.0 [facility] Comment on above: Performed By: #### L [id number] ####Heating And Ventilating Worker: HAILEY HERNANDEZ ([id number])[facility] HOSPITALBettina SOLRaoul (SBHLAB)[address] MCV (RBC) [Entitic vol] 92.8 fL Normal 77.0-99.0 [facility] Comment on above: Performed By: #### L [id number] ####Heating And Ventilating Worker: HAILEY HERNANDEZ ([id number])[facility] HOSPITALBettina MARTINEZMAIKELN (SBHLAB)[address] Monocytes (Bld) [#/Vol] 0.8 10*3/uL Normal 0.0-0.9 [facility] Comment on above: Performed By: #### L [id number] ####Heating And Ventilating Worker: HAILEY HERNANDEZ ([id number])[facility] MARTINEZMAIKELN (SBHLAB)[address] Monocytes/100 WBC (Bld) 8.7 % Normal 5.0-13.0 [facility] Comment on above: Performed By: #### L [id number] ####Heating And Ventilating Worker: HAILEY HERNANDEZ ([id number])[facility] HOSPITALBettina BARBMAIKELN (SBHLAB)[address] NEUTROPHILS ABSOLUTE 5.6 10*3/uL Normal 1.8-7.5 [facility] Comment on above: Performed By: #### L [id number] ####Heating And Ventilating Worker: HAILEY HERNANDEZ ([id number])[facility]ITALA BARBMAIKELN (SBHLAB)[address] Neutrophils/100 WBC (Bld) 64.3 % Normal 38.0-82.0 [facility] Comment on above: Performed By: #### L [id number] ####Heating And Ventilating Worker: HAILEY HERNANDEZ ([id number])[facility]ITALA [facility]N (SBHLAB)[address] NRBC 0.0 /100 WBCs Normal 0.0-2.0 [facility] Comment on above: Performed By: #### L [id number] ####Heating And Ventilating Worker: HAILEY HERNANDEZ ([id number])[facility]ITALA [facility] (SBHLAB)[address] Platelet mean volume (Bld) [Entitic vol] 10.6 fL Normal 9.0-12.7 [facility] Comment on above: Performed By: #### L [id number] ####Heating And Ventilating Worker: HALIEY HERNANDEZ ([id number])[facility] HOSPITALBettina MARTINEZPRESBYTERIAN HOSPITALN (SBHLAB)[address] [place] [address] [place] Platelets (Bld) [#/Vol] 179 10*3/uL Normal 140-440 [facility] Comment on above: Performed By: #### L [id number] ####Heating And Ventilating Worker: HAILEY HERNANDEZ ([id number])[facility] (SBHLAB)[address] [place] [address] [place] RBC (Bld) [#/Vol] 4.43 10*6/uL Normal 4.40-5.90 [facility] Comment on above: Performed By: #### L [id number] ####Heating And Ventilating Worker: HAILEY HERNANDEZ ([id number])[facility]ITALA [facility]BPRESBYTERIAN [facility]OSPITALN (SBHLAB)[address] [place] [address] [place] WBC (Bld) [#/Vol] 8.7 10*3/uL Normal 3.6-10.7 [facility] Comment on above: Performed By: #### L [id number] ####Heating And Ventilating Worker: HAILEY HERNANDEZ ([id number])[facility] HOSPITALBettina MARTINEZPRESBYTERIAN HOSPITALRaoul (SBHLAB)[address] COMPREHENSIVE METABOLIC PANE [place] 05-21-2025 Albumin [Mass/Vol] 3.5 g/dL Normal 3.4-4.8 [facility] Comment on above: Performed By: #### Ilya [id number], LAB17, [id number] ####Heating And Ventilating Worker: HAILEY HERNANDEZ ([id number])[facility] HOSPITALBettina MARTINEZD[facility] (SBHLAB)[address] ALP [Catalytic activity/Vol] 66 U/L Normal 40-150 [facility] Comment on above: Performed By: #### Ilya [id number], LAB17, [id number] ####Heating And Ventilating Worker: HAILEY HERNANDEZ ([id number])[facility]EDIGN[facility] (SBHLAB)[address] ALT [Catalytic activity/Vol] 18 U/L Normal <40 [facility] Comment on above: Performed By: #### Ilya [id number], LAB17, [id number] ####Heating And Ventilating Worker: HAILEY HERNANDEZ ([id number])[facility]ITALBettina MARTINEZDIGN[facility] (HLAB)[address] Anion gap [Moles/Vol] 8 mmol/L Normal 3-13 [facility] Comment on above: Performed By: #### Ilya [id number], LAB17, [id number] ####Heating And Ventilating Worker: HAILEY HERNANDEZ ([id number])[facility]ITALBettina MARTINEZDIGN[facility] (SBHLAB)[address] AST [Catalytic activity/Vol] 25 U/L Normal <34 [facility] Comment on above: Performed By: #### Ilya [id number], LAB17, [id number] ####Heating And Ventilating Worker: HAILEY HERNANDEZ ([id number])[facility]ITALBettina MARTINEZDIGN[facility] (SB[facility])[address] Bilirubin [Mass/Vol] 0.4 mg/dL Normal <1.2 [facility] Comment on above: Performed By: #### Ilya [id number], [id number], [id number] ####Heating And Ventilating Worker: HAILEY HERNANDEZ ([id number])[facility] HOSPITALBettina MARTINEZDIGNITY [facility] (SBHLAB)[address] Calcium [Mass/Vol] 8.7 mg/dL Low 8.8-10.0 [facility] Comment on above: Performed By: #### Ilya [id number], LAB17, [id number] ####Heating And Ventilating Worker: HAILEY HERNANDEZ ([id number])[facility] HOSPITALBettina MARTINEZPRESBYTERIAN HOSPITALN (SBHLAB)[address] Chloride [Moles/Vol] 111 mmol/L High 98-107 [facility] Comment on above: Performed By: #### Ilya [id number], LAB17, [id number] ####Heating And Ventilating Worker: HAILEY HERNANDEZ ([id number])[facility] (SBHLAB)[address] CO2 [Moles/Vol] 23 mmol/L Normal 23-31 [facility] Comment on above: Performed By: #### Ilya [id number], LAB17, [id number] ####Heating And Ventilating Worker: HAILEY HERNANDEZ ([id number])[facility] ([facility])[address] Creatinine [Mass/Vol] 0.89 mg/dL Normal 0.72-1.25 [facility] Comment on above: Performed By: #### Ilya [id number], LAB17, [id number] ####Heating And Ventilating Worker: HAILEY HERNANDEZ ([id number])[facility] (HLAB)[address] GLOMERULAR FILTRATION RATE ML/MIN/1.73 SQ M.PREDICTED >90.0 Normal >60.0 [facility] Comment on above: Result Comment: Calc ulation based on the Chronic Kidney Disease Epidemiology Collaboration (CKD-EPI) equation refit without adjustment for race Performed By: #### Ilya [id number], LAB17, [id number] ####Heating And Ventilating Worker: HAILEY HERNANDEZ ([id number])[facility] (SBHLAB)[address] Glucose [Mass/Vol] 163 mg/dL High 82-115 [facility] Comment on above: Performed By: #### L [id number], LAB17, [id number] ####Heating And Ventilating Worker: HAILEY HERNANDEZ ([id number])[facility] (SBHLAB)[address] Potassium [Moles/Vol] 4.1 mmol/L Normal 3.5-5.1 [facility] Comment on above: Result Comment: [facility] potassium values may be up to 0.5 mmol/L lower than serum values. Performed By: #### L [id number], LAB17, [id number] ####Heating And Ventilating Worker: HAILEY HERNANDEZ ([id number])[facility] (SBHLAB)[address] Protein [Mass/Vol] 6.3 g/dL Low 6.4-8.3 [facility] Comment on above: Performed By: #### L [id number], LAB17, [id number] ####Heating And Ventilating Worker: HAILEY HERNANDEZ ([id number])[facility] (SBHLAB)[address] Sodium [Moles/Vol] 142 mmol/L Normal 136-145 [facility] Comment on above: Performed By: #### L [id number], LAB17, [id number] ####Heating And Ventilating Worker: HAILEY HERNANDEZ ([id number])[facility] (SBHLAB)[address] Urea nitrogen [Mass/Vol] 17 mg/dL Normal 9-23 [facility] Comment on above: Performed By: #### L [id number], LAB17, [id number] ####Heating And Ventilating Worker: HAILEY HERNANDEZ ([id number])[facility] (SBHLAB)[address] HEAD WO IV CONTRASTon CT HEAD [...] Took tylenol at home with relief. Normal [facility] CT Head WO contraston 2024 1. No acute intracranial abnormalities. 2. Chronic sinonasal polyposis bilaterally. Report Dictated on Electronically Signed By: Avinash Miguel MD Electronically Signed Date/Time: 05/21/2025 1:00 AM T [facility] Patient Name: JOSEPH BROWN : 1955 [...] were present on the patient's prior study. [facility] Avinash Miguel MD - 05/21/2025 [facility] 1955 [id number] Exam Date/Time: 05/21/2025 00:21 Procedure: CT HEAD [...] Electronically Signed Date/Time: 05/21/2025 1:00 AM EDT [facility] Radiology Study observation (narrative) [facility] CT Head WO contrastOrdered B y: Avinash Miguel on 05-21-[address] [facility] [employer] Work Phone: Comprehensive metabolic 1998 panelon 05-21-2025 Albumin [Mass/Vol] 3.5 g/dL 3.4 - 4.8 g/dL [facility] ALP [Catalytic activity/Vol] 66 U/L 40 - 150 U/L [facility] ALT [Catalytic activity/Vol] 18 U/L NINF - 40 U/L [facility] Anion gap [Moles/Vol] 8 mmol/L 3 - 13 mmol/L [facility] AST [Catalytic activity/Vol] 25 U/L NINF - 34 U/L [facility] Bilirubin [Mass/Vol] 0.4 mg/dL NINF - 1.2 mg/dL [facility] Calcium [Mass/Vol] 8.7 mg/dL Low 8.8 - 10. 0 mg/dL [facility] Chloride [Moles/Vol] 111 mmol/L High 98 - 10 7 mmol/L [facility] CO2 [Moles/Vol] 23 mmol/L 23 - 31 mmol/L [facility] Creatinine [Mass/Vol] 0.89 mg/dL 0.72 - 1.25 mg/dL [facility] GFR/1.73 sq M.predicted (S/P/Bld) [Vol rate/Area] - PINF [facility] Comment on above: Calculation based on the Chronic Kidney Disease Epidemiology Collaboration (CKD-EPI) equation refit without adjustment for race Glucose [Mass/Vol] 163 mg/dL High 82 - 115 mg/dL [facility] Interpretation and review of laboratory results Abnormal [facility] Potassium [Moles/Vol] 4.1 mmol/L 3.5 - 5.1 mmol/L [facility] Comment on above: Plasma potassium frank ues may be up to 0.5 mmol/L lower than serum values. Protein [Mass/Vol] 6.3 g/dL Low 6.4 - 8.3 g/dL [facility] Sodium [Moles/Vol] 142 mmol/L 136 - 145 mmol/L [facility] Urea nitrogen [Mass/Vol] 17 mg/dL 9 - 23 mg/d L [facility] Consulton 05-21-2025 Consult Attestation signed by Zoey James MD at [...] WITH AND WITHOUT GADOLINIUM CLINICAL INDICATION: Dizziness, persistent/recurrent , cardiac or vascular cause suspected TECHNIQUE: Routine [...] Name: Joseph Brown Patient : 1955 Acct: [id number] Date of Admission: 05/20/2025 [facility] A PCP: Laquita Ding DO History of [...] vestibular t (more content not included)... Normal [facility] ECG 12-LEADon 05-21-2025 ECG 12-LEAD IMPRESSION: EKG shows normal sinus rhythm, 64 bpm, no STEMI, QTc normal. Interpretation was performed by me. Overall similar when compared to prior. Electronically Signed On 05-21-2025 01:10:32 EDT by Jacoby Sanders Normal [facility] HIGH SENSITIVITY TROPONIN, S ERIAL BASELINEon 05-21-2025 TROPONIN HS SERIAL BASELINE 5 ng/L Normal <=35 [facility] Comment on above: Result Comment: In i ndividuals presenting with symptoms > 2h, a baseline troponin <= 5 ng/L suggests acute cardiac injury is unlikely and further serial testing is generally not indicated. Performed By: #### L [id number], LAB17, [id number] ####Heating And Ventilating Worker: HAILEY HERNANDEZ ([id number])[facility] ([facility])[address] [place] [address] HIGH SENSITIVITY TROPONIN, S ERIAL, SECOND TESTon 05-21-2025 2H TROPONIN HS (SERIAL 2ND TROPONIN) 4 ng/L Normal <=35 [facility] Comment on above: Result Comment: Risi ng or falling troponin delta below 2 ng/L as compared to baseline value suggests that acute cardiac injury is unlikely. Performed By: #### L [id number] ####Heating And Ventilating Worker: HAILEY HERNANDEZ ([id number])[facility] ([facility])[address] [place] [address] MR Brain WO contraston 05-21 Patient Name: JOSEPH BROWN : 1955 [id number] Exam Date/Time: 05/21/2025 16:00 Procedure: MR BRAIN WO CONTRAST Ordering Provider: COELHO SHAYNA Reason For Exam: Dizziness, persistent/recurrent , cardiac or vascular cause suspected MRI OF THE BRAIN WITHOUT GADOLINIUM CLINICAL INDICATION: Dizziness, persistent/recurrent , cardiac or vascular cause suspected TECHNIQUE: Routine [...] ethmoid and right maxillary and sphenoid sinuses. [facility] Yasmani Briscoe MD - 05/21/2025 Patient Name: JOSEPH BROWN : 1955 [facility]#: [id number] Exam Date/Time: 05/21/2025 16:00 Procedure: MR BRAIN WO CONTRAST Ordering Provider: COELHO SHAYNA Reason For Exam: Dizziness, persistent/recurrent , cardiac or vascular cause suspected MRI OF THE BRAIN WITHOUT GADOLINIUM CLINICAL INDICATION: Dizziness, persistent/recurrent , cardiac or vascular cause suspected TECHNIQUE: Routine [...] MRA OF THE BRAIN CLINICAL INDICATION: Dizziness, persistent/recurrent , cardiac or vascular cause suspected TECHNIQUE: Routine MRA of the brain without gadolinium. COMPARISON: CTA head and neck, December,. FINDINGS: Flow-related enhancement in the intracranial internal carotid, proximal anterior and middle cerebral arteries. Flow-related enhancement in the basilar and proximal posterior cerebral arteries. Right CORRESPONDENCE COORDINATOR derives major contribution from anterior circulation consistent with persistent origin, an anatomic variant. No large vessel cutoff, focal hemodynamically significant stenosis or apparent aneurysm. The intracranial vertebral arteries are patent. IMPRESSION: 1. No intracranial large vessel occlusion or significant stenosis. MRA OF THE NECK WITH AND WITHOUT GADOLINIUM CLINICAL INDICATION: Dizziness, persistent/recurrent , cardiac or vascular cause suspected TECHNIQUE: Routine [...] Electronically Signed Date/Time: 05/21/2025 6:01 PM EDT [facility] vessels WO contrast on 05-21-2025 Patient Name: JOSEPH BROWN : 1955 Exam Date/Time: 05/21/2025 16:00 Procedure: MR HEAD ANGIO WO IV CONTRAST Ordering Provider: COELHO SHAYNA Reason For Exam: concern for disection MRI OF THE BRAIN WITHOUT GADOLINIUM CLINICAL INDICATION: Dizziness, persistent/recurrent , cardiac or vascular cause suspected TECHNIQUE: Routine [...] ethmoid and right maxillary and sphenoid sinuses. [facility] Yasmani Briscoe MD - 05/21/2025 Patient Name: JOSEPH BROWN : 1955 Exam Date/Time: 05/21/2025 16:00 Procedure: MR HEAD ANGIO WO IV CONTRAST Ordering Provider: COELHO SHAYNA Reason For Exam: concern for disection MRI OF THE BRAIN WITHOUT GADOLINIUM CLINICAL INDICATION: Dizziness, persistent/recurrent , cardiac or vascular cause suspected TECHNIQUE: Routine [...] MRA OF THE BRAIN CLINICAL INDICATION: Dizziness, persistent/recurrent , cardiac or vascular cause suspected TECHNIQUE: Routine MRA of the brain without gadolinium. COMPARISON: CTA head and neck, December,. FINDINGS: Flow-related enhancement in the intracranial internal carotid, proximal anterior and middle cerebral arteries. Flow-related enhancement in the basilar and proximal posterior cerebral arteries. Right CORRESPONDENCE COORDINATOR derives major contribution from anterior circulation consistent with persistent origin, an anatomic variant. No large vessel cutoff, focal hemodynamically significant stenosis or apparent aneurysm. The intracranial vertebral arteries are patent. IMPRESSION: 1. No intracranial large vessel occlusion or significant stenosis. MRA OF THE NECK WITH AND WITHOUT GADOLINIUM CLINICAL INDICATION: Dizziness, persistent/recurrent , cardiac or vascular cause suspected TECHNIQUE: Routine [...] Electronically Signed Date/Time: 05/21/2025 6:01 PM EDT [employer] [facility] MRA Neck vessels WO and W co ntrast Emma 05-21-2025 Patient Name: JOSEPH BROWN : 1955 Exam Date/Time: 05/21/2025 16:00 Procedure: MR NECK ANGIO W AND WO IV CONTRAST Ordering Provider: COELHO SHAYNA Reason For Exam: Vertebral artery dissection suspected MRI OF THE BRAIN WITHOUT GADOLINIUM CLINICAL INDICATION: Dizziness, persistent/recurrent , cardiac or vascular cause suspected TECHNIQUE: Routine [...] ethmoid and right maxillary and sphenoid sinuses. [facility] Yasmani Briscoe MD - 05/21/2025 Patient Name: JOSEPH BROWN : 1955 Exam Date/Time: 05/21/2025 16:00 Procedure: MR NECK ANGIO W AND WO IV CONTRAST Ordering Provider: COELHO SHAYNA Reason For Exam: Vertebral artery dissection suspected MRI OF THE BRAIN WITHOUT GADOLINIUM CLINICAL INDICATION: Dizziness, persistent/recurrent , cardiac or vascular cause suspected TECHNIQUE: Routine [...] MRA OF THE BRAIN CLINICAL INDICATION: Dizziness, persistent/recurrent , cardiac or vascular cause suspected TECHNIQUE: Routine MRA of the brain without gadolinium. COMPARISON: CTA head and neck, December,. FINDINGS: Flow-related enhancement in the intracranial internal carotid, proximal anterior and middle cerebral arteries. Flow-related enhancement in the basilar and proximal posterior cerebral arteries. Right CORRESPONDENCE COORDINATOR derives major contribution from anterior circulation consistent with persistent origin, an anatomic variant. No large vessel cutoff, focal hemodynamically significant stenosis or apparent aneurysm. The intracranial vertebral arteries are patent. IMPRESSION: 1. No intracranial large vessel occlusion or significant stenosis. MRA OF THE NECK WITH AND WITHOUT GADOLINIUM CLINICAL INDICATION: Dizziness, persistent/recurrent , cardiac or vascular cause suspected TECHNIQUE: Routine [...] Electronically Signed Date/Time: 05/21/2025 6:01 PM EDT [employer] [facility] NT PRO BNPon 05-21-2025 Natriuretic peptide B (Bld) [Mass/Vol] 89 pg/mL Normal <[address] [facility] [employer] [facility] Comment on above: Performed By: #### L [id number], LAB17, [id number] ####Heating And Ventilating Worker: HAILEY HERNANDEZ ([id number])[facility] ([facility])[address] [place] [address] Natriuretic peptide B [Mass/ Vol]on 05-21-2025 Interpretation and review of laboratory results Normal [facility] [employer] Natriuretic peptide B (Bld) [Mass/Vol] 89 pg/mL NINF - 125 pg/mL [facility] [employer] No Panel Informationon 05-21 1. No acute intracranial findings. 2. Paranasal sinus disease, including possible sinonasal polyposis. MRA OF THE BRAIN CLINICAL INDICATION: Dizziness, persistent/recurrent , cardiac or vascular cause suspected TECHNIQUE: Routine MRA of the brain without gadolinium. COMPARISON: CTA head and neck, December,. FINDINGS: Flow-related enhancement in the intracranial internal carotid, proximal anterior and middle cerebral arteries. Flow-related enhancement in the basilar and proximal posterior cerebral arteries. Right CORRESPONDENCE COORDINATOR derives major contribution from anterior circulation consistent with persistent origin, an anatomic variant. No large vessel cutoff, focal hemodynamically significant stenosis or apparent aneurysm. The intracranial vertebral arteries are patent. IMPRESSION: 1. No intracranial large vessel occlusion or significant stenosis. MRA OF THE NECK WITH AND WITHOUT GADOLINIUM CLINICAL INDICATION: Dizziness, persistent/recurrent , cardiac or vascular cause suspected TECHNIQUE: Routine [...] Electronically Signed Date/Time: 05/21/2025 6:01 PM EDT [facility] Radiology Study observation (narrative) [facility] He alth 2h Troponin HS (Serial 2nd Troponin) 4 ng/L NINF - 35 ng/L [facility] Comment on above: Rising or falling tr oponin delta below 2 ng/L as compared to baseline value suggests that acute cardiac injury is unlikely. Interpretation and review of laboratory results Normal [facility] EKG shows normal sinus rhythm, 64 bpm, no STEMI, QTc normal. Interpretation was performed by me. Overall similar when compared to prior. Electronically Signed On 05-21-2025 01:10:32 EDT by Jacoby Sanders CV Jacoby Kirkpatrick, - 05/21/2025 IMPRESSION: EKG shows normal sinus rhythm, 64 bpm, no STEMI, QTc normal. Interpretation was performed by me. Overall similar when compared to prior. Electronically Signed On 05-21-2025 01:10:32 EDT by Jacoby Sanders [facility] [employer] Interpretation and review of laboratory results Normal [facility] Troponin HS Serial Baseline 5 ng/L NINF - 35 ng/L [facility] Comment on above: In individuals prese nting with symptoms > 2h, a baseline troponin <= 5 ng/L suggests acute cardiac injury is unlikely and further serial testing is generally not indicated. [facility] No Panel InformationOrdered By: Jacoby Sanders on 05-21-2025 P [place] 47 degrees [employer] [facility] Work Phone: AK Interval 128 ms [employer] [facility] Work Phone: QRS [place] 6 degrees [employer] Work Phone: QRSD Interval 98 ms [employer] Work Phone: QT Interval 410 ms [employer] [facility] Work Phone: QTC Interval 422 ms [facility] Work Phone: T Wave [place] 44 degrees [facility] [employer] Work Phone: [employer] Work Phone: Progress Noteon 05-21-2025 Progress Note OCCUPATIONAL THERAPY [facility]'s Name/MRN: Joseph Brown ([id number]) Date: 05/21/2025 Therapy eval and treat orders received. Chart review complete and spoke with evaluating physical therapist. Pt is currently IND for transfers / mobility without a device and demonstrates no current concerns for home going at this time. Will discontinue orders at this time. Should pt demo a change in status, please reorder OT services. Mikie Chavira, OT [facility] Vital signsOrdered By: Jacoby Sanders on 05-21-2025 Heart rate 64 /min bpm [employer] [facility] Work Phone: ED Provider Noteon ED Provider [...] and DIFFEREN (more content not included)... Normal [facility] XR Chest Single viewon 05-20 1. Hypoinflation. 2. No other acute findings. Report Dictated on Electronically Signed By: Yasmani Briscoe MD Electronically Signed Date/Time: 05/20/2025 11:56 PM EDT [facility] Patient Name: JOSEPH BROWN : 1955 [...] change again noted in the thoracic spine. [facility] Yasmani Briscoe MD - 05/20/2025 Patient [...] Electronically Signed Date/Time: 05/20/2025 11:56 PM EDT [facility] Radiology Study observation (narrative) [facility] XR Chest Single viewOrdered By: Yasmani Briscoe on 05-20-2025 [facility] Work Phone: BASIC METABOLIC PANELon 03-0 Anion gap [Moles/Vol] 10 mmol/L Normal 3-13 [facility] Comment on above: Performed By: #### L AB15, [id number] ####Heating And Ventilating Worker: HAILEY HERNANDEZ ([id number])[facility] [place] (SBHLAB)[address] Calcium [Mass/Vol] 8.8 mg/dL Normal 8.8-10.0 [facility] Comment on above: Performed By: #### Ilya AB15, [id number] ####Heating And Ventilating Worker: HAILEY HERNANDEZ ([id number])[facility] [place] (SBHLAB)[address] Chloride [Moles/Vol] 109 mmol/L High 98-107 [facility] Comment on above: Performed By: #### Ilya AB15, [id number] ####Heating And Ventilating Worker: HAILEY HERNANDEZ ([id number])[facility] [place] (SBHLAB)[address] CO2 [Moles/Vol] 21 mmol/L Low 23-31 [facility] Comment on above: Performed By: #### L AB15, [id number] ####Heating And Ventilating Worker: HAILEY HERNANDEZ ([id number])[facility] [place] (SBHLAB)[address] [place] [address] [place] Creatinine [Mass/Vol] 0.81 mg/dL Normal 0.72-1.25 [facility] Comment on above: Performed By: #### L AB15, [id number] ####Heating And Ventilating Worker: HAILEY HERNANDEZ ([id number])[facility] [place] (SBHLAB)[address] GLOMERULAR FILTRATION RATE ML/MIN/1.73 SQ M.PREDICTED >90.0 Normal >60.0 [facility] Comment on above: Result Comment: Calc ulation based on the Chronic Kidney Disease Epidemiology Collaboration (CKD-EPI) equation refit without adjustment for race Performed By: #### L 15, [id number] ####Heating And Ventilating Worker: HAILEY HERNANDEZ ([id number])[facility] (SBHLAB)[address] Glucose [Mass/Vol] 134 mg/dL High 82-115 [facility] Comment on above: Performed By: #### L 15, [id number] ####Heating And Ventilating Worker: HAILEY HERNANDEZ ([id number])[facility] (SBHLAB)[address] Potassium [Moles/Vol] 3.8 mmol/L Normal 3.5-5.1 [facility] Comment on above: Result Comment: [facility] potassium values may be up to 0.5 mmol/L lower than serum values. Performed By: #### Ilya GLEZ15, [id number] ####Heating And Ventilating Worker: HAILEY HERNANDEZ ([id number])[facility] (SB[facility])[address] Sodium [Moles/Vol] 140 mmol/L Normal 136-145 [facility] Comment on above: Performed By: #### L 15, [id number] ####Heating And Ventilating Worker: HAILEY HERNANDEZ ([id number])[facility] (SBHLAB)[address] Urea nitrogen [Mass/Vol] 18 mg/dL Normal 9-23 [facility] Comment on above: Performed By: #### L AB15, [id number] ####Heating And Ventilating Worker: HAILEY HERNANDEZ ([id number])[facility] (SBHLAB)[address] Basic metabolic 1998 panelon 12-20-2024 Anion gap [Moles/Vol] 10 mmol/L 3 - 13 mmol/L [facility] Calcium [Mass/Vol] 8.8 mg/dL 8.8 - 10. 0 mg/dL [facility] Chloride [Moles/Vol] 109 mmol/L High 98 - 10 7 mmol/L [facility] CO2 [Moles/Vol] 21 mmol/L Low 23 - 31 mmol/L [facility] Creatinine [Mass/Vol] 0.81 mg/dL 0.72 - 1.25 mg/dL [facility] GFR/1.73 sq M.predicted (S/P/Bld) [Vol rate/Area] - PINF [facility] Comment on above: Calculation based on the Chronic Kidney Disease Epidemiology Collaboration (CKD-EPI) equation refit without adjustment for race Glucose [Mass/Vol] 134 mg/dL High 82 - 115 mg/dL [facility] Interpretation and review of laboratory results Abnormal [facility] Potassium [Moles/Vol] 3.8 mmol/L 3.5 - 5.1 mmol/L [facility] Comment on above: Plasma potassium frank ues may be up to 0.5 mmol/L lower than serum values. Sodium [Moles/Vol] 140 mmol/L 136 - 145 mmol/L [facility] Urea nitrogen [Mass/Vol] 18 mg/dL 9 - 23 mg/d L [facility] CBC W Auto Differential pane l (Bld)on 12-20-2024 Basophils (Bld) [#/Vol] 0 10*3/uL 0.0 - 0.2 10*3/uL [facility] Basophils/100 WBC (Bld) 0.5 % 0.0 - 2.0 % [facility] Eosinophils (Bld) [#/Vol] 0.4 10*3/uL 0.0 - 0.5 10*3/uL [facility] Eosinophils/100 WBC (Bld) 4.3 % 0.0 - 6.0 % [facility] Erythrocyte distribution width (RBC) [Ratio] 13.6 % 11.5 - 15.0 % [facility] Hematocrit (Bld) [Volume fraction] 43.6 % 40.0 - 52.0 % [facility] Hemoglobin (Bld) [Mass/Vol] 14.7 g/dL 13.0 - 18.0 g/dL [facility] Immature granulocytes (Bld) [#/Vol] 0 10*3/uL NINF - 0.1 10*3/uL [facility] Immature granulocytes/100 WBC (Bld) 0.5 % 0.0 - 2.0 % [facility] Interpretation and review of laboratory results Normal [facility] Lymphocytes (Bld) [#/Vol] 2.1 10*3/uL 1.0 - 4.3 10*3/uL [facility] Lymphocytes/100 WBC (Bld) 24.2 % 15.0 - 45.0 % [facility] MCH (RBC) [Entitic mass] 30.4 pg 26. 0 - 34.0 pg [facility] MCHC (RBC) [Mass/Vol] 33.7 % 30.5 - 36.0 % [facility] MCV (RBC) [Entitic vol] 90.1 fL 77.0 - 99.0 fL [facility] Monocytes (Bld) [#/Vol] 0.6 10*3/uL 0.0 - 0.9 10*3/uL [facility] Monocytes/100 WBC (Bld) 6.7 % 5.0 - 13.0 % [facility] Neutrophils (Bld) [#/Vol] 5.5 10*3/uL 1.8 - 7.5 10*3/uL [facility] Neutrophils/100 WBC (Bld) 63.8 % 38.0 - 82.0 % [facility] Nucleated RBC/100 WBC (Bld) [Ratio] 0 % [facility] Platelet mean volume (Bld) [Entitic vol] 10.2 fL 9.0 - 12.7 fL [facility] Platelets (Bld) [#/Vol] 207 10*3/uL 140 - 440 10*3/uL [facility] RBC (Bld) [#/Vol] 4.84 10*6/uL 4.40 - 5.9 0 10*6/uL [facility] WBC (Bld) [#/Vol] 8.6 10*3/uL 3.6 - 10.7 10*3/uL [facility] CBC WITH AUTO DIFFERENTIALon 12-20-2024 Basophils (Bld) [#/Vol] 0.0 10*3/uL Normal 0.0-0.2 [facility] Comment on above: Performed By: #### L [id number] #### Heating And Ventilating Worker: HAILEY HERNANDEZ ([id number]) [facility] [address] Basophils/100 WBC (Bld) 0.5 % Normal 0.0-2.0 [facility] Comment on above: Performed By: #### L [id number] #### Heating And Ventilating Worker: HAILEY HERNANDEZ ([id number]) [facility] [place] ([facility]) [address] Eosinophils (Bld) [#/Vol] 0.4 10*3/uL Normal 0.0-0.5 [facility] Comment on above: Performed By: #### L [id number] #### Heating And Ventilating Worker: HAILEY HERNANDEZ ([id number]) [facility] [address] Eosinophils/100 WBC (Bld) 4.3 % Normal 0.0-6.0 [facility] Comment on above: Performed By: #### L [id number] #### Heating And Ventilating Worker: HAILEY HERNANDEZ ([id number]) [facility] [address] Erythrocyte distribution width (RBC) [Ratio] 13.6 % Normal 11.5-15.0 [facility] Comment on above: Performed By: #### L [id number] #### Heating And Ventilating Worker: HAILEY HERNANDEZ ([id number]) [facility] [address] [place] [address] Hematocrit (Bld) [Volume fraction] 43.6 % Normal 40.0-52.0 [facility] Comment on above: Performed By: #### L [id number] #### Heating And Ventilating Worker: HAILEY HERNANDEZ ([id number]) [facility] [address] Hemoglobin (Bld) [Mass/Vol] 14.7 g/dL Normal 13.0-18.0 [facility] Comment on above: Performed By: #### L [id number] #### Heating And Ventilating Worker: HAILEY HERNANDEZ ([id number]) [facility] [address] IMMATURE GRANS % 0.5 % Normal 0.0-2.0 [facility] Comment on above: Performed By: #### L [id number] #### Heating And Ventilating Worker: HAILEY HERNANDEZ ([id number]) [facility] ([facility]) [address] IMMATURE GRANS ABSOLUTE 0.0 10*3/uL Normal <0.1 [facility] Comment on above: Performed By: #### L [id number] #### Heating And Ventilating Worker: HAILEY HERNANDEZ ([id number]) [facility] ([facility]) [address] Lymphocytes (Bld) [#/Vol] 2.1 10*3/uL Normal 1.0-4.3 [facility] Comment on above: Performed By: #### L [id number] #### Heating And Ventilating Worker: HAILEY HERNANDEZ ([id number]) [facility] ([facility]) [address] Lymphocytes/100 WBC (Bld) 24.2 % Normal 15.0-45.0 [facility] Comment on above: Performed By: #### L [id number] #### Heating And Ventilating Worker: HAILEY HERNANDEZ ([id number]) [facility] [address] MCH (RBC) [Entitic mass] 30.4 pg Normal 26.0-34.0 [facility] Comment on above: Performed By: #### L [id number] #### Heating And Ventilating Worker: HAILEY HERNANDEZ ([id number]) [facility] ([facility]) [address] MCHC 33.7 % Normal 30.5-36.0 [facility] Comment on above: Performed By: #### L [id number] #### Heating And Ventilating Worker: HAILEY HERNANDEZ ([id number]) [facility] ([facility]) [address] MCV (RBC) [Entitic vol] 90.1 fL Normal 77.0-99.0 S [facility] Comment on above: Performed By: #### L [id number] #### Heating And Ventilating Worker: HAILEY HERNANDEZ ([id number]) [facility] [place] ([facility]) [address] Monocytes (Bld) [#/Vol] 0.6 10*3/uL Normal 0.0-0.9 [facility] Comment on above: Performed By: #### L [id number] #### Heating And Ventilating Worker: HAILEY HERNANDEZ ([id number]) [facility] [address] Monocytes/100 WBC (Bld) 6.7 % Normal 5.0-13.0 [facility] Comment on above: Performed By: #### L [id number] #### Heating And Ventilating Worker: HAILEY HERNANDEZ ([id number]) [facility] [address] NEUTROPHILS ABSOLUTE 5.5 10*3/uL Normal 1.8-7.5 [facility] Comment on above: Performed By: #### L [id number] #### Heating And Ventilating Worker: HAILEY HERNANDEZ ([id number]) [facility] [place] ([facility]) [address] Neutrophils/100 WBC (Bld) 63.8 % Normal 38.0-82.0 [facility] Comment on above: Performed By: #### L [id number] #### Heating And Ventilating Worker: HAILEY HERNANDEZ ([id number]) [facility] [place] ([facility]) [address] [place] [address] [place] NRBC 0.0 /100 WBCs Normal 0.0-2.0 [facility] Comment on above: Performed By: #### L [id number] #### Heating And Ventilating Worker: HAILEY HERNANDEZ ([id number]) [facility] [address] Platelet mean volume (Bld) [Entitic vol] 10.2 fL Normal 9.0-12.7 [facility] Comment on above: Performed By: #### L [id number] #### Heating And Ventilating Worker: HAILEYBERYL HERNANDEZ ([id number]) [facility] ([facility]) [address] Platelets (Bld) [#/Vol] 207 10*3/uL Normal 140-440 [facility] Comment on above: Performed By: #### L [id number] #### Heating And Ventilating Worker: HAILEY ADVID ([id number]) [facility] ([facility]) [address] RBC (Bld) [#/Vol] 4.84 10*6/uL Normal 4.40-5.90 [facility] Comment on above: Performed By: #### L [id number] #### Heating And Ventilating Worker: HAILEY DAVID ([id number]) [facility] ([facility]) [address] WBC (Bld) [#/Vol] 8.6 10*3/uL Normal 3.6-10.7 [facility] Comment on above: Performed By: #### L [id number] #### Heating And Ventilating Worker: HAILEY HERNANDEZ ([id number]) [facility] ([facility]) [address] [place] [address] CT HEAD NECK ANGIO W AND WO IV CONTRASTon 12-20-2024 CT HEAD NECK ANGIO W AND WO IV CONTRAST [facility]EPH [facility] 1955 [id number] Exam Date/Time: 12/20/2024 10:09 Procedure: CT HEAD NECK ANGIO W AND WO IV CONTRAST Ordering Provider: CANTU BRIGID Reason For Exam: Dizziness, persistent/recurrent , cardiac or vascular cause suspected CT HEAD NECK ANGIO W AND WO IV CONTRAST HISTORY: Dizziness, persistent/recurrent , cardiac or vascular cause suspected TECHNIQUE: CTA [...] The V4 segments , basilar artery and marine oil terminal superintendent are patent and normal in caliber. The [...] Signed Date/Time: 12/20/2024 11:17 AM EST Dizziness, persistent/recurrent , cardiac or vascular cause suspected Normal [facility] CT HEAD WO IV CONTRASTon CT HEAD WO IV CONTRAST Patient Name: JOSEPH BROWN : 1955 [facility]#: [id number] Exam Date/Time: 12/20/2024 09:29 Procedure: CT HEAD WO IV CONTRAST Ordering Provider: CANTU BRIGID Reason For Exam: Dizziness, persistent/recurrent , cardiac or vascular cause suspected EXAMINATION: CT of the head without intravenous contrast. EXAM DATE AND TIME: 12/20/2024 9:29 AM EST INDICATION: Dizziness, persistent/recurrent , cardiac or vascular cause suspected ADDITIONAL INFORMATION: [...] month ago and 3 weeks ago. Normal [facility] CT Head WO contraston 2024 1. No acute intracranial abnormality. Chronic microvascular change. 2. Fairly extensive paranasal sinus disease. Report Dictated on Electronically Signed By: Haresh Reyes MD Electronically Signed Date/Time: 12/20/2024 10:05 AM [facility] [employer] [facility] Patient Name: JOSEPH BROWN : 1955 [id number] Exam Date/Time: 12/20/2024 09:29 Procedure: CT HEAD WO IV CONTRAST Ordering Provider: CANTU BRIGID Reason For Exam: Dizziness, persistent/recurrent , cardiac or vascular cause suspected EXAMINATION: CT of the head without intravenous contrast. EXAM DATE & TIME: 12/20/2024 9:29 AM EST INDICATION: Dizziness, persistent/recurrent , cardiac or vascular cause suspected ADDITIONAL INFORMATION: [...] Soft tissues: The soft tissues are unremarkable. [facility] Haresh Reyes MD - 12/20/2024 Patient Name: JOSEPH BROWN : 1955 [facility]#: [id number] Exam Date/Time: 12/20/2024 09:29 Procedure: CT HEAD WO IV CONTRAST Ordering Provider: CANTU BRIGID Reason For Exam: Dizziness, persistent/recurrent , cardiac or vascular cause suspected EXAMINATION: CT of the head without intravenous contrast. EXAM DATE & TIME: 12/20/2024 9:29 AM EST INDICATION: Dizziness, persistent/recurrent , cardiac or vascular cause suspected ADDITIONAL INFORMATION: [...] MD Electronically Signed Date/Time: 12/20/2024 10:05 AM [facility] Radiology Study observation (narrative) [facility] CTA Head vessels and Neck ve ssels WO and W contrast Emma 12-20-2024 No large vessel occlusion or high-grade stenosis in the head or neck. Less than 30 percent stenosis of the proximal cervical ICAs bilaterally by NASCET criteria. Report Dictated on Electronically Signed By: Jerardo Magallanes MD Electronically Signed Date/Time: 12/20/2024 11:17 AM [employer] [facility] Patient Name: JOSEPH BROWN : 1955 [id number] Exam Date/Time: 12/20/2024 10:09 Procedure: CT HEAD NECK ANGIO W AND WO IV CONTRAST Ordering Provider: CANTU BRIGID Reason For Exam: Dizziness, persistent/recurrent , cardiac or vascular cause suspected CT HEAD NECK ANGIO W AND WO IV CONTRAST HISTORY: Dizziness, persistent/recurrent , cardiac or vascular cause suspected TECHNIQUE: CTA [...] The V4 segments , basilar artery and marine oil terminal superintendent are patent and normal in caliber. The proximal SCAs, AICAs and PICAs are patent. The superior sagittal sinus, straight sinus, confluence, transverse and sigmoid sinuses are patent. [facility] Jerardo Magallanes MD - 12/20/2024 Patient Name: JOSEPH BROWN : 1955 [facility]#: [id number] Exam Date/Time: 12/20/2024 10:09 Procedure: CT HEAD NECK ANGIO W AND WO IV CONTRAST Ordering Provider: CANTU BRIGID Reason For Exam: Dizziness, persistent/recurrent , cardiac or vascular cause suspected CT HEAD NECK ANGIO W AND WO IV CONTRAST HISTORY: Dizziness, persistent/recurrent , cardiac or vascular cause suspected TECHNIQUE: CTA [...] The V4 segments , basilar artery and marine oil terminal superintendent are patent and normal in caliber. The [...] Electronically Signed Date/Time: 12/20/2024 11:17 AM EST [facility] Radiology Study observation (narrative) [facility] CTA Head vessels and Neck ve ssels WO and W contrast IVOrdered By: Jerardo Magallanes on 12-20-2024 [facility] Work Phone: ED Nursing Noteon 12-20-2024 ED [...] month ago and 3 weeks ago. Normal [facility] ED Provider Noteon ED Provider Note [...] Alcohol use: No Drug use: No SCREENINGS [place] Coma Scale Best Eye Response: Spontaneous Best [...] Phys[facility] (Per Emergency Physician): Interpretation per the [...] Workstation: [id number] (more content not included)... Normal [facility] HIGH SENSITIVITY TROPONIN, S ERIAL BASELINEon 12-20-2024 TROPONIN HS SERIAL BASELINE <3 Normal <=35 [facility] Comment on above: Result Comment: In i ndividuals presenting with symptoms > 2h, a baseline troponin <= 5 ng/L suggests acute cardiac injury is unlikely and further serial testing is generally not indicated. Performed By: #### L [id number], [id number] ####Heating And Ventilating Worker: HAILEY HERNANDEZ ([id number])[facility] ([facility])[address] HIGH SENSITIVITY TROPONIN, S ERIAL, SECOND TESTon 12-20-2024 2H TROPONIN HS (SERIAL 2ND TROPONIN) 3 ng/L Normal <=35 [facility] Comment on above: Result Comment: Delt a value was unable to be calculated as both baseline and serial troponin tests were below the level of quantitation. As both baseline and 2h troponin values are below the level of quantitation, acute cardiac injury is unlikely. Performed By: #### L [id number] ####Heating And Ventilating Worker: HAILEY BREWERELVIRA ([id number])[facility] ([facility])[address] [place] [address] No Panel Informationon 12-20 P [place] 46 degrees [facility] [place] Interval 126 ms [facility] QRS [place] -7 degrees [facility] QRSD Interval 102 ms [facility] h QT Interval 416 ms [facility] QTC Interval 463 ms [facility] T Wave [place] 45 degrees [facility] Cydney Cantu, - 12/20/2024 IMPRESSION: Sinus rhythm Abnormal R-wave progression, early transition Minimal ST depression, lateral leads Electronically Signed On 12-20-2024 15:38:23 EST by Cydney Cantu [facility] 2h Troponin HS (Serial 2nd Troponin) 3 ng/L NINF - 35 ng/L [facility] Comment on above: Delta value was unab le to be calculated as both baseline and serial troponin tests were below the level of quantitation. As both baseline and 2h troponin values are below the level of quantitation, acute cardiac injury is unlikely. Interpretation and review of laboratory results Normal [facility] Interpretation and review of laboratory results Normal [facility] Troponin HS Serial Baseline ng/L NINF - 35 ng/L [facility] Comment on above: In individuals prese nting with symptoms > 2h, a baseline troponin <= 5 ng/L suggests acute cardiac injury is unlikely and further serial testing is generally not indicated. [facility] Vital signson 12-20-2024 Heart rate 74 /min bpm [facility] XR Chest Single viewon 12-20 No acute cardiopulmonary abnormality identified. Report Dictated on Electronically Signed By: Haresh Reyes MD Electronically Signed Date/Time: 12/20/2024 9:31 AM EST [facility] Patient Name: JOSEPH BROWN : [...] osseous abnormality is demonstrated. Other findings: None. [facility] Haresh Reyes MD - 12/20/2024 Patient Name: [...] Electronically Signed Date/Time: 12/20/2024 9:31 AM EST [facility] Radiology Study observation (narrative) [facility] XR Chest Single viewOrdered By: Haresh Reyes on 12-20-2024 [facility] [employer] Work Phone: MRI Spine Lumbar w/o Contras ton 08-28-2021 MRI Spine Lumbar w/o Contrast Patient Name: JOSEPH BROWN Magnetic Resonance Imaging ACCESSION EXAM DATE/TIME PROCEDURE ORDERING PROVIDER [id number] 08/28/2021 08:20 EST MRI Spine Lumbar w/o DO DING LINDA J Contrast CPT code 38763 Reason For Exam (MRI Spine Lumbar w/o [...] NEIL Transcribed Date and Time: 08/30/2021 3:46 [facility] CR Chest PA/LATon 04-06-2021 CR Chest PA/LAT [id number] Diagnostic Radiology ACCESSION EXAM DATE/TIME PROCEDURE ORDERING PROVIDER [id number] 04/06/2021 12:20 EDT CR Chest PA and LAT CAROLINA FRANCOIS CPT code 10279 Reason For Exam (CR Chest PA and LAT) BENEFITS TECHNICIAN/SOB Report CHEST X-RAY PA/LATERAL CLINICAL INDICATION: Shortness [...] Transcribed Date and Time: 04/06/2021 1:25 Normal [facility] XR CHEST (2 VW)Ordered By: Rita Francois on 04-06-2021 Patient Name: JOSEPH BROWN Diagnostic Radiology ACCESSION EXAM DATE/TIME PROCEDURE ORDERING PROVIDER [id number] 04/06/2021 12:20 EDT CR Chest PA & LAT CAROLINA FRANCOIS CPT code 91594 Reason For Exam (CR Chest PA & LAT) BENEFITS TECHNICIAN/SOB Report CHEST X-RAY PA/LATERAL CLINICAL INDICATION: Shortness [...] R Transcribed Date and Time: 04/06/2021 1:25 [facility] Work Phone: [facility] Incoming Radiology Results From [facility] - 04/06/2021 1:25 PM EDT Patient Name: JOSEPH BROWN Diagnostic Radiology ACCESSION EXAM DATE/TIME PROCEDURE ORDERING PROVIDER [id number] 04/06/2021 12:20 EDT CR Chest PA & LAT CAROLINA FRANCOIS CPT code 19064 Reason For Exam (CR Chest PA & LAT) BENEFITS TECHNICIAN/SOB Report CHEST X-RAY PA/LATERAL CLINICAL INDICATION: Shortness [...] R Transcribed Date and Time: 04/06/2021 1:25 [facility] Work Phone: [facility] Work Phone: CR Chest PA/LATon 12-09-2020 CR Chest PA/LAT Patient Name: JOSEPH BROWN Diagnostic Radiology ACCESSION EXAM DATE/TIME PROCEDURE ORDERING PROVIDER [id number] 12/09/2020 12:30 EST CR Chest PA and LAT CAROLINA FRANCOIS CPT code 01814 Reason For Exam (CR Chest PA and [...] Report Dictated on Final Dictating Physician: MD ALSTON YUN ROBERT Signed Date and Time: 12/09/2020 1:59 pm Signed by: MD ALSTON YUN ROBERT Transcribed Date and Time: 12/09/2020 2:00 Normal [facility] ECHO Complete 2D W Doppler W Coloron 12-09-2020 TRANSTHORACIC ECHOCARDIOGRAM PATIENT: Joseph Brown STUDY DATE: 12/09/2020 : 1955 AGE: 65 HT/WT: 182.9 cm (72 94.3 kg in) (207.6 lb) GENDER: M BP: 131 / 67 LOCATION: [facility] PATIENT Outpatient [facility] STATUS: *ORDERING PHYSICIAN: * Eve Gómez *READING PHYSICIAN: * Ck Estrada MD *TERRA COTTA ROOFER HELPER: * Heather Galicia RCS INDICATIONS: LV FX. HISTORY: PMH: COVID 10-19-2020. Risk factors: Hypertension. Transthoracic echocardiography (2017). CONCLUSIONS SUMMARY: 1. Left ventricle: The cavity size is normal. Wall thickness is mildly increased. Systolic function is normal by visual assessment. The estimated ejection fraction is 60%. 2. Pericardium, extracardiac: A trivial-small pericardial effusion is present. There is no echocardiographic evidence for pericardial tamponade. 3. Technically difficult study. 4. No significant valve disease. STUDY DATA: Complete transthoracic echocardiogram. Procedure: Image [...] review. Study status: Routine. Patient status: Outpatient. FINDINGS LEFT VENTRICLE: The cavity size is [...] SYSTEMIC VEINS: Inferior vena cava: Not visualized. Measurements Value 08/07/2017 Reference Ascending aorta ID, [...] Ck Estrada MD 12/09/2020 14:45 Prior Signatures: [facility] Work Phone: [facility] Incoming Cardiology Results From [employer] - 12/09/2020 2:46 PM EST TRANSTHORACIC ECHOCARDIOGRAM PATIENT: Joseph Brown STUDY DATE: 12/09/2020 : 1955 AGE: 65 HT/WT: 182.9 cm (72 94.3 kg in) (207.6 lb) GENDER: M BP: 131 / 67 LOCATION: [facility] PATIENT Outpatient [facility] STATUS: *ORDERING PHYSICIAN: * Eve Gómez *READING PHYSICIAN: * Ck Estrada MD *TERRA COTTA ROOFER HELPER: * Heather White RCS INDICATIONS: LV FX. HISTORY: PMH: COVID 10-19-2020. Risk factors: Hypertension. Transthoracic echocardiography (2017). CONCLUSIONS SUMMARY: 1. Left ventricle: The cavity size is normal. Wall thickness is mildly increased. Systolic function is normal by visual assessment. The estimated ejection fraction is 60%. 2. Pericardium, extracardiac: A trivial-small pericardial effusion is present. There is no echocardiographic evidence for pericardial tamponade. 3. Technically difficult study. 4. No significant valve disease. STUDY DATA: Complete transthoracic echocardiogram. Procedure: Image [...] review. Study status: Routine. Patient status: Outpatient. FINDINGS LEFT VENTRICLE: The cavity size is [...] SYSTEMIC VEINS: Inferior vena cava: Not visualized. Measurements Value 08/07/2017 Reference Ascending aorta ID, [...] Ck Estrada MD 12/09/2020 14:45 Prior Signatures: [facility] Work Phone: Echo Complete w/wo Contrasto n 12-09-2020 Echo Complete w/wo Contrast Patient Name: JOSEPH BROWN Ultrasound ACCESSION EXAM DATE/TIME PROCEDURE ORDERING PROVIDER [id number] 12/09/2020 14:06 EST Echo Complete w/wo LUTE, DRAWING HAND, EVE Arteaga. Contrast Reason For Exam (Echo Complete w/wo Contrast) LV function Report TRANSTHORACIC ECHOCARDIOGRAM PATIENT: Joseph Brown STUDY DATE: 12/09/2020 : 1955 AGE: 65 HT/WT: 182.9 cm (72 94.3 kg in) (207.6 lb) GENDER: M BP: 131 / 67 LOCATION: [facility] PATIENT Outpatient [facility] STATUS: *ORDERING PHYSICIAN: * Eve Gómez *READING PHYSICIAN: * Ck Estrada MD *TERRA COTTA ROOFER HELPER: * Heather Galicia RCS INDICATIONS: LV FX. HISTORY: PMH: COVID 10-19-2020. Risk factors: Hypertension. Transthoracic echocardiography (2017). CONCLUSIONS SUMMARY: 1. Left ventricle: The cavity size is normal. Wall thickness is mildly increased. Systolic function is normal by visual assessment. The estimated ejection fraction is 60%. 2. Pericardium, extracardiac: A trivial-small pericardial effusion is present. There is no echocardiographic evidence for pericardial tamponade. 3. Technically difficult study. 4. No significant valve disease. STUDY DATA: Complete transthoracic echocardiogram. Procedure: Image [...] review. Study status: Routine. Patient status: Outpatient. FINDINGS Ultrasound Report LEFT VENTRICLE: The cavity [...] SYSTEMIC VEINS: Inferior vena cava: Not visualized. Measurements Value 08/07/2017 Reference Ascending aorta ID, [...] Stroke volum (more content not included)... Normal [facility] XR CHEST (2 VW)on 12-09-2020 [facility]: [id number] Diagnostic Radiology ACCESSION EXAM DATE/TIME PROCEDURE ORDERING PROVIDER [id number] 12/09/2020 12:30 EST CR Chest PA & LAT FRANCOISARI MORAESROOR CPT code 06627 Reason For Exam (CR Chest PA & [...] ROBERT Transcribed Date and Time: 12/09/2020 2:00 [facility] Work Phone: [facility] Incoming Radiology Results From [facility] - 12/09/2020 2:00 PM EST Patient Name: JOSEPH BROWN Diagnostic Radiology ACCESSION EXAM DATE/TIME PROCEDURE ORDERING PROVIDER [id number] 12/09/2020 12:30 EST CR Chest PA & LAT ARI FRANCOISROOR CPT code 90726 Reason For Exam (CR Chest PA & [...] ROBERT Transcribed Date and Time: 12/09/2020 2:00 [facility] Work Phone: Basic Metabolic Panelon 10-17 Anion gap [Moles/Vol] 6 mmol/L [place], [place] Calcium [Mass/Vol] 8.7 mg/dL 8.4 - 10. 4 mg/dL [place], [place] Chloride [Moles/Vol] 110 mmol/L High 98 - 10 7 mmol/L [place] CO2 [Moles/Vol] 24 mmol/L 22 - 30 mmol/L [place] Creatinine [Mass/Vol] 0.64 mg/dL 0.52 - 1.25 mg/dL [place] EGFR IF NonAfrican Turkmen >90.0 >60 mL/min [place] Comment on above: KDIGO guidelines pro [...] MDRD (S/P/Bld) [Vol rate/Area] mL/min/{1.73_m2} >60 mL/min [place] Glucose [Mass/Vol] 119 mg/dL High 70 - 100 mg/dL [place] Potassium [Moles/Vol] 3.8 mmol/L 3.5 - 5.1 mmol/L [place] Sodium [Moles/Vol] 140 mmol/L 135 - 145 mmol/L [place] Urea nitrogen [Mass/Vol] 32 mg/dL High 7 - 20 mg/d L [place] CBCon 11-04-2020 Erythrocyte distribution width (RBC) [Ratio] 14.7 % High 11.5 - 14.5 % [place] Hematocrit (Bld) [Volume fraction] 30.8 % Low 40 - 52 % [place] Hemoglobin (Bld) [Mass/Vol] 10.0 g/dL Low 13 - 18 g/dL [place] Interpretation and review of laboratory results Abnormal [place] MCH (RBC) [Entitic mass] 30.0 pg 26 - 34 pg [place] MCHC (RBC) [Mass/Vol] 32.4 % 32 - 36 % [place] MCV (RBC) [Entitic vol] 92.4 fL 80 - 98 fL [place] Platelet mean volume (Bld) [Entitic vol] 8.0 fL 7.4 - 10.4 fL [place] Platelets (Bld) [#/Vol] 439 10*3/uL 140 - 440 10*3/uL [place] RBC (Bld) [#/Vol] 3.33 10*6/uL Low 4.4 - 5.9 10*6/uL [place] WBC (Bld) [#/Vol] 11.6 10*3/uL High 3.6 - 10.7 10*3/uL [place] Test Performed by [employer] [facility], [address] [place], [place], [place] [id number] [place] [address] Calcium, Ionizedon Interpretation and review of laboratory results Abnormal [place] Ionized Ca 4.10 mg/dL Low 4.3 - 5.2 mg/dL [place] pH (Bld) 7.48 [pH] High [place] Test Performed by [facility], [address] [place], [place] [id number] [place] [address] D-Dimer, Quantitativeon 10-17 D-Dimer, Quant 8.16 mg/L High 0 - 0.5 mg/L [place] Comment on above: [employer] D-Dimer va lues of <0.50 mg/L FEU can be used in combination with a pre-test probability model (e.g. Well's) to exclude pulmonary embolism (PE) disease, as well as an aid in the diagnosis of deep vein thrombosis (DVT). Interpretation and review of laboratory results Abnormal [place] Test Performed by [facility], [address] [place], [place] [id number] [place] [address] Ferritinon 11-04-2020 Ferritin [Mass/Vol] 867 ng/mL High 18 - 464 ng/mL [place] Interpretation and review of laboratory results Abnormal [place] Test Performed by [facility], [address] Hepatic Function Panelon Albumin [Mass/Vol] 3.2 g/dL Low 3.5 - 5 g/dL [place] ALP [Catalytic activity/Vol] 73 U/L 38 - 126 U/L [place] ALT [Catalytic activity/Vol] 200 U/L High 0 - 49 U/L [place] Comment on above: The ALT test is perf ormed by an updated assay method. Please note that the reference intervals have been changed and are now sex specific. AST [Catalytic activity/Vol] 55 U/L High 15 - 46 U/L [place] Bilirubin Ql (U) 0.7 mg/dL 0.2 - 1.3 mg/dL [place] Bilirubin.direct [Mass/Vol] 0.0 mg/dL 0 - 0.3 mg/dL [place] Protein [Mass/Vol] 6.5 g/dL 6.3 - 8.2 g/dL [place] Magnesiumon 11-04-2020 Magnesium [Mass/Vol] 2.3 mg/dL 1.6 - 2 .3 mg/dL [place] Otheron 11-04-2020 Interpretation and review of laboratory results Abnormal [place] [facility], [address], [place], [place] [address] [place] Phosphoruson 11-04-2020 Phosphate [Mass/Vol] 4.3 mg/dL 2.5 - 4 .5 mg/dL [place] Basic Metabolic Panelon 10-16 Anion gap [Moles/Vol] 4 mmol/L [place] Calcium [Mass/Vol] 8.8 mg/dL 8.4 - 10. 4 mg/dL [place] Chloride [Moles/Vol] 113 mmol/L High 98 - 10 7 mmol/L [place] CO2 [Moles/Vol] 26 mmol/L 22 - 30 mmol/L [place] Creatinine [Mass/Vol] 0.62 mg/dL 0.52 - 1.25 mg/dL [place] EGFR IF NonAfrican Turkmen >90.0 >60 mL/min [place] Comment on above: KDIGO guidelines pro [...] MDRD (S/P/Bld) [Vol rate/Area] mL/min/{1.73_m2} >60 mL/min [place] Glucose [Mass/Vol] 139 mg/dL High 70 - 100 mg/dL [place] Potassium [Moles/Vol] 3.8 mmol/L 3.5 - 5.1 mmol/L [place] Sodium [Moles/Vol] 143 mmol/L 135 - 145 mmol/L [place] Urea nitrogen [Mass/Vol] 42 mg/dL High 7 - 20 mg/d L [place] CBCon 11-03-2020 Erythrocyte distribution width (RBC) [Ratio] 14.6 % High 11.5 - 14.5 % [place] Hematocrit (Bld) [Volume fraction] 33.8 % Low 40 - 52 % [place] Hemoglobin (Bld) [Mass/Vol] 11.0 g/dL Low 13 - 18 g/dL [place] Interpretation and review of laboratory results Abnormal [place] MCH (RBC) [Entitic mass] 30.1 pg 26 - 34 pg [place] MCHC (RBC) [Mass/Vol] 32.4 % 32 - 36 % [place] MCV (RBC) [Entitic vol] 92.8 fL 80 - 98 fL [place], [place] Platelet mean volume (Bld) [Entitic vol] 8.2 fL 7.4 - 10.4 fL [place] Platelets (Bld) [#/Vol] 305 10*3/uL 140 - 440 10*3/uL [place] RBC (Bld) [#/Vol] 3.64 10*6/uL Low 4.4 - 5.9 10*6/uL [place] WBC (Bld) [#/Vol] 9.5 10*3/uL 3.6 - 10.7 10*3/uL [place] Test Performed by [facility] [employer] [facility], [address] [place], [place], [place] [id number] [place] [address] Calcium, Ionizedon Interpretation and review of laboratory results Abnormal [place] Ionized Ca 4.50 mg/dL 4.3 - 5.2 mg/dL [place] pH (Bld) 7.51 [pH] High [place] Test Performed by [facility], [address], [place], [place] [address] [place] Magnesiumon 11-03-2020 Magnesium [Mass/Vol] 2.5 mg/dL High 1.6 - 2 .3 mg/dL [place] Otheron 11-03-2020 Interpretation and review of laboratory results Abnormal [place] Test Performed by [facility], [address], [place], [place] [address] [place] Phosphoruson 11-03-2020 Phosphate [Mass/Vol] 3.9 mg/dL 2.5 - 4 .5 mg/dL [place] C-Reactive Proteinon 021 CRP [Mass/Vol] 43.8 mg/L High 0 - 6 mg/L [place] Comment on above: . CBC Auto Differentialon 10-16 Absolute Baso # 0.0 10*3/uL 0 - 0.2 10*3/uL [place] Absolute Neut # 6.9 10*3/uL 1.8 - 7 10*3/uL [place] Basophils/100 WBC (Bld) 0.5 % 0 - 2 % M [place], [place] Eosinophils (Bld) [#/Vol] 0.0 10*3/uL 0 - 0.5 10*3/uL [place] Eosinophils/100 WBC (Bld) 0.0 % Low 1 - 6 % [place] Erythrocyte distribution width (RBC) [Ratio] 14.5 % 11.5 - 14.5 % [place] Granulocytes/100 WBC (Bld) 84.0 % High 40 - 80 % [place] Hematocrit (Bld) [Volume fraction] 30.8 % Low 40 - 52 % [place] Hemoglobin (Bld) [Mass/Vol] 10.3 g/dL Low 13 - 18 g/dL [place] Interpretation and review of laboratory results Abnormal [place] Lymphocytes (Bld) [#/Vol] 0.7 10*3/uL Low 1 - 4.3 10*3/uL [place] Lymphocytes/100 WBC (Bld) 8.3 % Low 20 - 40 % [place] MCH (RBC) [Entitic mass] 30.4 pg 26 - 34 pg [place] MCHC (RBC) [Mass/Vol] 33.5 % 32 - 36 % [place] MCV (RBC) [Entitic vol] 90.8 fL 80 - 98 fL [place] Monocytes (Bld) [#/Vol] 0.6 10*3/uL 0 - 0.8 10*3/uL [place] Monocytes/100 WBC (Bld) 7.2 % 2 - 10 % [place] Platelet mean volume (Bld) [Entitic vol] 8.1 fL 7.4 - 10.4 fL [place] Platelets (Bld) [#/Vol] 352 10*3/uL 140 - 440 10*3/uL [place] RBC (Bld) [#/Vol] 3.39 10*6/uL Low 4.4 - 5.9 10*6/uL [place] WBC (Bld) [#/Vol] 8.2 10*3/uL 3.6 - 10.7 10*3/uL [place] Test Performed by [facility], [address] [place], [place] [id number] [place] [address] Calcium, Ionizedon Ionized Ca 4.70 mg/dL 4.3 - 5.2 mg/dL [place] pH (Bld) 7.45 [pH] [place] Test Performed by [facility], [address] [place], [place] [address] [place] Comprehensive Metabolic Pane l w/ Reflex to MGon 11-02-2020 Albumin [Mass/Vol] 2.8 g/dL Low 3.5 - 5 g/dL [place] ALP [Catalytic activity/Vol] 71 U/L 38 - 126 U/L [place] ALT [Catalytic activity/Vol] 221 U/L High 0 - 49 U/L [place] Comment on above: The ALT test is perf ormed by an updated assay method. Please note that the reference intervals have been changed and are now sex specific. Anion gap [Moles/Vol] 4 mmol/L [place] AST [Catalytic activity/Vol] 101 U/L High 15 - 46 U/L [place] Bilirubin Ql (U) 0.7 mg/dL 0.2 - 1.3 mg/dL [place] Calcium [Mass/Vol] 8.4 mg/dL 8.4 - 10. 4 mg/dL [place] Chloride [Moles/Vol] 112 mmol/L High 98 - 10 7 mmol/L [place] CO2 [Moles/Vol] 29 mmol/L 22 - 30 mmol/L [place] Creatinine [Mass/Vol] 0.63 mg/dL 0.52 - 1.25 mg/dL [place] EGFR IF NonAfrican Turkmen >90.0 >60 mL/min [place] Comment on above: KDIGO guidelines pro [...] MDRD (S/P/Bld) [Vol rate/Area] mL/min/{1.73_m2} >60 mL/min [place] Glucose [Mass/Vol] 138 mg/dL High 70 - 100 mg/dL [place] Potassium [Moles/Vol] 3.8 mmol/L 3.5 - 5.1 mmol/L [place] Protein [Mass/Vol] 6.2 g/dL Low 6.3 - 8.2 g/dL [place] Sodium [Moles/Vol] 145 mmol/L 135 - 145 mmol/L [place] Urea nitrogen [Mass/Vol] 40 mg/dL High 7 - 20 mg/d L [place] D-Dimer, Quantitativeon 10-16 D-Dimer, Quant 4.08 mg/L High 0 - 0.5 mg/L [place] Comment on above: [employer] D-Dimer va lues of <0.50 mg/L FEU can be used in combination with a pre-test probability model (e.g. Well's) to exclude pulmonary embolism (PE) disease, as well as an aid in the diagnosis of deep vein thrombosis (DVT). Interpretation and review of laboratory results Abnormal [facility] [employer] Test Performed by [employer] [facility], [address] Ferritinon 11-02-2020 Ferritin [Mass/Vol] 1060 ng/mL High 18 - 464 ng/mL [place] Interpretation and review of laboratory results Abnormal [place] Test Performed by [employer], [address] Lactate Dehydrogenaseon 10-16 LD 349 U/L High 120 - 246 U/L [place] Magnesiumon 11-02-2020 Magnesium [Mass/Vol] 2.5 mg/dL High 1.6 - 2 .3 mg/dL [place] Otheron 11-02-2020 Interpretation and review of laboratory results Abnormal [place] Test Performed by [employer], [address] Phosphoruson 11-02-2020 Interpretation and review of laboratory results Abnormal [place] Phosphate [Mass/Vol] 4.6 mg/dL High 2.5 - 4 .5 mg/dL [place] Test Performed by [facility] [employer] [facility], [address], [place], [place] [address] [place] C-Reactive Proteinon 021 CRP [Mass/Vol] 73.8 mg/L High 0 - 6 mg/L [place] Comment on above: . CBC Auto Differentialon 10-16 Absolute Baso # 0.1 10*3/uL 0 - 0.2 10*3/uL [place] Absolute Neut # 6.9 10*3/uL 1.8 - 7 10*3/uL [place] Basophils/100 WBC (Bld) 0.7 % 0 - 2 % [place] Eosinophils (Bld) [#/Vol] 0.1 10*3/uL 0 - 0.5 10*3/uL [place] Eosinophils/100 WBC (Bld) 1.0 % 1 - 6 % [place] Erythrocyte distribution width (RBC) [Ratio] 14.5 % 11.5 - 14.5 % [place] Granulocytes/100 WBC (Bld) 80.4 % High 40 - 80 % [place] Hematocrit (Bld) [Volume fraction] 31.0 % Low 40 - 52 % [place] Hemoglobin (Bld) [Mass/Vol] 10.4 g/dL Low 13 - 18 g/dL [place] Interpretation and review of laboratory results Abnormal [place] Lymphocytes (Bld) [#/Vol] 0.7 10*3/uL Low 1 - 4.3 10*3/uL [place] Lymphocytes/100 WBC (Bld) 7.8 % Low 20 - 40 % [place] MCH (RBC) [Entitic mass] 30.6 pg 26 - 34 pg [place] MCHC (RBC) [Mass/Vol] 33.4 % 32 - 36 % [place] MCV (RBC) [Entitic vol] 91.5 fL 80 - 98 fL M [place] Monocytes (Bld) [#/Vol] 0.9 10*3/uL High 0 - 0.8 10*3/uL [place] Monocytes/100 WBC (Bld) 10.1 % High 2 - 10 % [place] Platelet mean volume (Bld) [Entitic vol] 8.1 fL 7.4 - 10.4 fL [place] Platelets (Bld) [#/Vol] 321 10*3/uL 140 - 440 10*3/uL [place] RBC (Bld) [#/Vol] 3.39 10*6/uL Low 4.4 - 5.9 10*6/uL [place] WBC (Bld) [#/Vol] 8.5 10*3/uL 3.6 - 10.7 10*3/uL [place] Test Performed by [facility], [address] [place], [place] [id number] [place] [address] Calcium, Ionizedon 1 Ionized Ca 4.50 mg/dL 4.3 - 5.2 mg/dL [place] pH (Bld) 7.45 [pH] [place] Test Performed by [facility], [address] [place], [place] [id number] [place] [address] Comprehensive Metabolic Pane l w/ Reflex to MGon 11-01-2020 Albumin [Mass/Vol] 2.8 g/dL Low 3.5 - 5 g/dL [place] ALP [Catalytic activity/Vol] 75 U/L 38 - 126 U/L [place] ALT [Catalytic activity/Vol] 172 U/L High 0 - 49 U/L [place] Comment on above: The ALT test is perf ormed by an updated assay method. Please note that the reference intervals have been changed and are now sex specific. Anion gap [Moles/Vol] 3 mmol/L [place] AST [Catalytic activity/Vol] 111 U/L High 15 - 46 U/L [place] Bilirubin Ql (U) 0.7 mg/dL 0.2 - 1.3 mg/dL [place] Calcium [Mass/Vol] 8.3 mg/dL Low 8.4 - 10. 4 mg/dL [place] Chloride [Moles/Vol] 107 mmol/L 98 - 10 7 mmol/L [place] CO2 [Moles/Vol] 30 mmol/L 22 - 30 mmol/L [place] Creatinine [Mass/Vol] 0.65 mg/dL 0.52 - 1.25 mg/dL [place] EGFR IF NonAfrican Turkmen >90.0 >60 mL/min [place] Comment on above: KDIGO guidelines pro [...] MDRD (S/P/Bld) [Vol rate/Area] mL/min/{1.73_m2} >60 mL/min [place] Glucose [Mass/Vol] 130 mg/dL High 70 - 100 mg/dL [place] Potassium [Moles/Vol] 3.9 mmol/L 3.5 - 5.1 mmol/L [place] Protein [Mass/Vol] 6.2 g/dL Low 6.3 - 8.2 g/dL [place] Sodium [Moles/Vol] 140 mmol/L 135 - 145 mmol/L [place] Urea nitrogen [Mass/Vol] 36 mg/dL High 7 - 20 mg/d L [facility], [place] D-Dimer, Quantitativeon 10-16 D-Dimer, Quant 4.04 mg/L High 0 - 0.5 mg/L [place] Comment on above: [employer] D-Dimer va lues of <0.50 mg/L FEU can be used in combination with a pre-test probability model (e.g. Well's) to exclude pulmonary embolism (PE) disease, as well as an aid in the diagnosis of deep vein thrombosis (DVT). Interpretation and review of laboratory results Abnormal [place] Test [facility]formed by [facility], [address] Ferritinon 11-01-2020 Ferritin [Mass/Vol] 1040 ng/mL High 18 - 464 ng/mL [place] Interpretation and review of laboratory results Abnormal [place] Test Performed by [facility], [address], [address] Lactate Dehydrogenaseon 10-16 LD 363 U/L High 120 - 246 U/L [place] Magnesiumon 11-01-2020 Magnesium [Mass/Vol] 2.4 mg/dL High 1.6 - 2 .3 mg/dL [place] Otheron 11-01-2020 Interpretation and review of laboratory results Abnormal [place] Test Performed by [employer] [facility], [address] [place], [address] Phosphoruson 11-01-2020 Phosphate [Mass/Vol] 4.1 mg/dL 2.5 - 4 .5 mg/dL [place] Test Performed by [employer] [facility], [address] C-Reactive Proteinon 021 CRP [Mass/Vol] 123.9 mg/L High 0 - 6 mg/L [place] Comment on above: . Interpretation and review of laboratory results Abnormal [place] Test [facility] by [facility], [address], [place], [place] [address] [place] CBC Auto Differentialon 10-16 Absolute Baso # 0.0 10*3/uL 0 - 0.2 10*3/uL [place] Absolute Neut # 7.7 10*3/uL High 1.8 - 7 10*3/uL [place] Basophils/100 WBC (Bld) 0.3 % 0 - 2 % [place] Eosinophils (Bld) [#/Vol] 0.2 10*3/uL 0 - 0.5 10*3/uL [place] Eosinophils/100 WBC (Bld) 2.2 % 1 - 6 % [place] Erythrocyte distribution width (RBC) [Ratio] 14.4 % 11.5 - 14.5 % [place] Granulocytes/100 WBC (Bld) 79.4 % 40 - 80 % [place] Hematocrit (Bld) [Volume fraction] 31.1 % Low 40 - 52 % [place] Hemoglobin (Bld) [Mass/Vol] 10.2 g/dL Low 13 - 18 g/dL [place] Interpretation and review of laboratory results Abnormal [place] Lymphocytes (Bld) [#/Vol] 0.8 10*3/uL Low 1 - 4.3 10*3/uL [place] Lymphocytes/100 WBC (Bld) 8.4 % Low 20 - 40 % [place] MCH (RBC) [Entitic mass] 29.9 pg 26 - 34 pg [place] MCHC (RBC) [Mass/Vol] 32.8 % 32 - 36 % [place] MCV (RBC) [Entitic vol] 91.2 fL 80 - 98 fL [place] Monocytes (Bld) [#/Vol] 0.9 10*3/uL High 0 - 0.8 10*3/uL [place] Monocytes/100 WBC (Bld) 9.7 % 2 - 10 % [place] Platelet mean volume (Bld) [Entitic vol] 8.2 fL 7.4 - 10.4 fL [place] Platelets (Bld) [#/Vol] 316 10*3/uL 140 - 440 10*3/uL [place] RBC (Bld) [#/Vol] 3.41 10*6/uL Low 4.4 - 5.9 10*6/uL [place] WBC (Bld) [#/Vol] 9.7 10*3/uL 3.6 - 10.7 10*3/uL [place] Calcium, Ionizedon Ionized Ca 4.50 mg/dL 4.3 - 5.2 mg/dL [place] pH (Bld) 7.42 [pH] [place] Comprehensive Metabolic Pane l w/ Reflex to MGon 10-31-2020 Albumin [Mass/Vol] 2.7 g/dL Low 3.5 - 5 g/dL [place] ALP [Catalytic activity/Vol] 70 U/L 38 - 126 U/L [place] ALT [Catalytic activity/Vol] 117 U/L High 0 - 49 U/L [place] Comment on above: The ALT test is perf ormed by an updated assay method. Please note that the reference intervals have been changed and are now sex specific. Anion gap [Moles/Vol] 3 mmol/L [place] AST [Catalytic activity/Vol] 86 U/L High 15 - 46 U/L [place] Bilirubin Ql (U) 0.7 mg/dL 0.2 - 1.3 mg/dL [place] Calcium [Mass/Vol] 8.2 mg/dL Low 8.4 - 10. 4 mg/dL [place] Chloride [Moles/Vol] 106 mmol/L 98 - 10 7 mmol/L [place] CO2 [Moles/Vol] 31 mmol/L High 22 - 30 mmol/L [place] Creatinine [Mass/Vol] 0.69 mg/dL 0.52 - 1.25 mg/dL [place] EGFR IF NonAfrican Turkmen >90.0 >60 mL/min [place] Comment on above: KDIGO guidelines pro [...] MDRD (S/P/Bld) [Vol rate/Area] mL/min/{1.73_m2} >60 mL/min [place] Glucose [Mass/Vol] 135 mg/dL High 70 - 100 mg/dL [place] Potassium [Moles/Vol] 4.5 mmol/L 3.5 - 5.1 mmol/L [place] Protein [Mass/Vol] 6.1 g/dL Low 6.3 - 8.2 g/dL [place] Sodium [Moles/Vol] 140 mmol/L 135 - 145 mmol/L [place] Urea nitrogen [Mass/Vol] 38 mg/dL High 7 - 20 mg/d L [place] D-Dimer, Quantitativeon 10-16 D-Dimer, Quant 5.26 mg/L High 0 - 0.5 mg/L [place] Comment on above: [employer] D-Dimer va lues of <0.50 mg/L FEU can be used in combination with a pre-test probability model (e.g. Well's) to exclude pulmonary embolism (PE) disease, as well as an aid in the diagnosis of deep vein thrombosis (DVT). Interpretation and review of laboratory results Abnormal [place] Test Performed by [facility], [address] [place] [address] [facility] [place] Ferritinon 10-31-2020 Ferritin [Mass/Vol] 957 ng/mL High 18 - 464 ng/mL [place] Interpretation and review of laboratory results Abnormal [place] Test Performed by [facility], [address], [address] Lactate Dehydrogenaseon 10-16 LD 310 U/L High 120 - 246 U/L [place] Magnesiumon 10-31-2020 Magnesium [Mass/Vol] 2.5 mg/dL High 1.6 - 2 .3 mg/dL [place] Otheron 10-31-2020 Interpretation and review of laboratory results Abnormal [place] Test Performed by [facility], [address], [address] Test Performed by [facility], [address], [address] POCT Arterialon 10-31-2020 Base Excess, Arterial 3.4 mmol/L High -3 - 3 mmol/L [place] HCO3, Arterial 27.4 mmol/L High 21 - 25 mmol/L [place] Interpretation and review of laboratory results Abnormal [place] Oxygen saturation in Blood 97.4 % 95 - 100 % [place] pCO2, Arterial 38.8 mm[Hg] 35 - 45 mm[Hg] [place] pH, Arterial 7.458 High [place] pO2, Arterial 89.7 mm[Hg] 80 - 100 mm[Hg] [place] Sodium [Moles/Vol] 40 mmol/L [place] Comment on above: Performed by [facility] ID : [id number] [place], [place] TCO2, Arterial 28.6 mmol/L High 23 - 27 mmol/L [place] Test Performed by [facility], [address] Phosphoruson 10-31-2020 Phosphate [Mass/Vol] 3.8 mg/dL 2.5 - 4 .5 mg/dL [place] Test Performed by [facility], [address], [place], [place] [address] [place] XR CHEST PORTABLEon 10-31-19 21 [facility], [facility] Incoming Radiology Results From [facility] - 10/31/2020 10:57 AM EST Patient Name: JOSEPH BROWN Diagnostic Radiology ACCESSION EXAM DATE/TIME PROCEDURE ORDERING PROVIDER [id number] 10/31/2020 10:02 EST CR Chest Portable MD ALFORD JAMES A CPT code 75232 Reason For Exam (CR Chest Portable) pneumonia [...] RISA Transcribed Date and Time: 10/31/2020 10:57 [place] Patient Name: JOSEPH RBOWN Diagnostic Radiology ACCESSION EXAM DATE/TIME PROCEDURE ORDERING PROVIDER [id number] 10/31/2020 10:02 EST CR Chest Portable MD ALFORD JAMES A CPT code 05502 Reason For Exam (CR Chest Portable) pneumonia [...] RISA Transcribed Date and Time: 10/31/2020 10:57 [place] C-Reactive Proteinon 021 CRP [Mass/Vol] 77.5 mg/L High 0 - 6 mg/L [place] Comment on above: . CBC Auto Differentialon 10-16 Absolute Baso # 0.1 10*3/uL 0 - 0.2 10*3/uL [place] Absolute Neut # 9.7 10*3/uL High 1.8 - 7 10*3/uL [place] Basophils/100 WBC (Bld) 0.5 % 0 - 2 % [place] Eosinophils (Bld) [#/Vol] 0.2 10*3/uL 0 - 0.5 10*3/uL [place] Eosinophils/100 WBC (Bld) 1.5 % 1 - 6 % [place] Erythrocyte distribution width (RBC) [Ratio] 14.5 % 11.5 - 14.5 % [place] Granulocytes/100 WBC (Bld) 82.9 % High 40 - 80 % [place] Hematocrit (Bld) [Volume fraction] 33.2 % Low 40 - 52 % [place] Hemoglobin (Bld) [Mass/Vol] 10.9 g/dL Low 13 - 18 g/dL [place] Interpretation and review of laboratory results Abnormal [place] Lymphocytes (Bld) [#/Vol] 0.8 10*3/uL Low 1 - 4.3 10*3/uL [place] Lymphocytes/100 WBC (Bld) 7.0 % Low 20 - 40 % [place] MCH (RBC) [Entitic mass] 29.9 pg 26 - 34 pg [place] MCHC (RBC) [Mass/Vol] 32.9 % 32 - 36 % [place] MCV (RBC) [Entitic vol] 91.0 fL 80 - 98 fL [place] Monocytes (Bld) [#/Vol] 0.9 10*3/uL High 0 - 0.8 10*3/uL [place] Monocytes/100 WBC (Bld) 8.1 % 2 - 10 % [place] Platelet mean volume (Bld) [Entitic vol] 8.6 fL 7.4 - 10.4 fL [place] Platelets (Bld) [#/Vol] 300 10*3/uL 140 - 440 10*3/uL [place] RBC (Bld) [#/Vol] 3.65 10*6/uL Low 4.4 - 5.9 10*6/uL [place] WBC (Bld) [#/Vol] 11.7 10*3/uL High 3.6 - 10.7 10*3/uL [place] Test Performed by [facility], [address] [place], [place] [id number] [place] [address] Calcium, Ionizedon Ionized Ca 4.40 mg/dL 4.3 - 5.2 mg/dL [place] pH (Bld) 7.43 [pH] [place] Test Performed by [facility], [address] [place], [place] [id number] [place] [address] Comprehensive Metabolic Pane l w/ Reflex to MGon 10-30-2020 Albumin [Mass/Vol] 2.8 g/dL Low 3.5 - 5 g/dL [place] ALP [Catalytic activity/Vol] 82 U/L 38 - 126 U/L [place] ALT [Catalytic activity/Vol] 73 U/L High 0 - 49 U/L [place] Comment on above: The ALT test is perf ormed by an updated assay method. Please note that the reference intervals have been changed and are now sex specific. Anion gap [Moles/Vol] 3 mmol/L [place] AST [Catalytic activity/Vol] 64 U/L High 15 - 46 U/L [place] Bilirubin Ql (U) 0.8 mg/dL 0.2 - 1.3 mg/dL [place] Calcium [Mass/Vol] 8.3 mg/dL Low 8.4 - 10. 4 mg/dL [place] Chloride [Moles/Vol] 103 mmol/L 98 - 10 7 mmol/L [place] CO2 [Moles/Vol] 32 mmol/L High 22 - 30 mmol/L [place] Creatinine [Mass/Vol] 0.63 mg/dL 0.52 - 1.25 mg/dL [place] EGFR IF NonAfrican Turkmen >90.0 >60 mL/min [place] Comment on above: KDIGO guidelines pro [...] MDRD (S/P/Bld) [Vol rate/Area] mL/min/{1.73_m2} >60 mL/min [place] Glucose [Mass/Vol] 143 mg/dL High 70 - 100 mg/dL [place] Potassium [Moles/Vol] 4.1 mmol/L 3.5 - 5.1 mmol/L [place] Protein [Mass/Vol] 6.2 g/dL Low 6.3 - 8.2 g/dL [place] Sodium [Moles/Vol] 138 mmol/L 135 - 145 mmol/L [place] Urea nitrogen [Mass/Vol] 32 mg/dL High 7 - 20 mg/d L [place] D-Dimer, Quantitativeon 10-16 D-Dimer, Quant 6.27 mg/L High 0 - 0.5 mg/L [place] Comment on above: [employer] D-Dimer va lues of <0.50 mg/L FEU can be used in combination with a pre-test probability model (e.g. Well's) to exclude pulmonary embolism (PE) disease, as well as an aid in the diagnosis of deep vein thrombosis (DVT). Interpretation and review of laboratory results Abnormal [place] Test [facility]formed by [facility], [address] [place], [place] [id number] [place] [address] Ferritinon 10-30-2020 Ferritin [Mass/Vol] 835 ng/mL High 18 - 464 ng/mL [place] Interpretation and review of laboratory results Abnormal [place] Test Performed by [facility], [address], [address] Lactate Dehydrogenaseon 10-16 LD 347 U/L High 120 - 246 U/L [place] Magnesiumon 10-30-2020 Magnesium [Mass/Vol] 2.2 mg/dL 1.6 - 2 .3 mg/dL [place] Otheron 10-30-2020 Interpretation and review of laboratory results Abnormal [place] Test Performed by [employer] [facility], [address], [address] POCT Arterialon 10-30-2020 Base Excess, Arterial 3.7 mmol/L High -3 - 3 mmol/L [place] HCO3, Arterial 27.6 mmol/L High 21 - 25 mmol/L [place] Interpretation and review of laboratory results Abnormal [place] Oxygen saturation in Blood 93.9 % Low 95 - 100 % [place] pCO2, Arterial 38.4 mm[Hg] 35 - 45 mm[Hg] [place] pH, Arterial 7.465 High [place] pO2, Arterial 65.9 mm[Hg] Low 80 - 100 mm[Hg] [place] Sodium [Moles/Vol] 40 mmol/L [place] Comment on above: Performed by [facility] ID : [id number] [place], [place] TCO2, Arterial 28.8 mmol/L High 23 - 27 mmol/L [place] Test Performed by [facility] [facility], [address], [place], [place] [address] [place] Phosphoruson 10-30-2020 Phosphate [Mass/Vol] 3.4 mg/dL 2.5 - 4 .5 mg/dL [place] Test Performed by [facility], [address], [place], [place] [address] [place] C-Reactive Proteinon 021 CRP [Mass/Vol] 131.1 mg/L High 0 - 6 mg/L [place], [place] Comment on above: . Interpretation and review of laboratory results Abnormal [place] Test Performed by [place], [address], [place], [place] [id number] [place] [address] CBC Auto Differentialon 10-16 Absolute Baso # 0.0 10*3/uL 0 - 0.2 10*3/uL [place] Absolute Neut # 8.7 10*3/uL High 1.8 - 7 10*3/uL [place] Basophils/100 WBC (Bld) 0.1 % 0 - 2 % [place], [place] Eosinophils (Bld) [#/Vol] 0.2 10*3/uL 0 - 0.5 10*3/uL [place] Eosinophils/100 WBC (Bld) 2.1 % 1 - 6 % [place] Erythrocyte distribution width (RBC) [Ratio] 14.7 % High 11.5 - 14.5 % [place] Granulocytes/100 WBC (Bld) 83.2 % High 40 - 80 % [place] Hematocrit (Bld) [Volume fraction] 32.4 % Low 40 - 52 % [place] Hemoglobin (Bld) [Mass/Vol] 10.7 g/dL Low 13 - 18 g/dL [place] Interpretation and review of laboratory results Abnormal [place] Lymphocytes (Bld) [#/Vol] 0.7 10*3/uL Low 1 - 4.3 10*3/uL [place] Lymphocytes/100 WBC (Bld) 6.7 % Low 20 - 40 % [place] MCH (RBC) [Entitic mass] 30.0 pg 26 - 34 pg [place] MCHC (RBC) [Mass/Vol] 33.1 % 32 - 36 % [place] MCV (RBC) [Entitic vol] 90.6 fL 80 - 98 fL [place], [place] Monocytes (Bld) [#/Vol] 0.8 10*3/uL 0 - 0.8 10*3/uL [place] Monocytes/100 WBC (Bld) 7.9 % 2 - 10 % [place] Platelet mean volume (Bld) [Entitic vol] 8.2 fL 7.4 - 10.4 fL [place] Platelets (Bld) [#/Vol] 278 10*3/uL 140 - 440 10*3/uL [place] RBC (Bld) [#/Vol] 3.57 10*6/uL Low 4.4 - 5.9 10*6/uL [place] WBC (Bld) [#/Vol] 10.4 10*3/uL 3.6 - 10.7 10*3/uL [place] Test Performed by [facility], [address] [place], [place] [address] [place] Calcium, Ionizedon Ionized Ca 4.50 mg/dL 4.3 - 5.2 mg/dL [place] pH (Bld) 7.45 [pH] [place] Test Performed by [facility], [address] [place], [place] [address] [place] Comprehensive Metabolic Pane l w/ Reflex to MGon 10-29-2020 Albumin [Mass/Vol] 2.8 g/dL Low 3.5 - 5 g/dL [place] ALP [Catalytic activity/Vol] 68 U/L 38 - 126 U/L [place] ALT [Catalytic activity/Vol] 49 U/L 0 - 49 U/L [place] Comment on above: The ALT test is perf ormed by an updated assay method. Please note that the reference intervals have been changed and are now sex specific. Anion gap [Moles/Vol] 4 mmol/L [place], [place] AST [Catalytic activity/Vol] 53 U/L High 15 - 46 U/L [place] Bilirubin Ql (U) 0.7 mg/dL 0.2 - 1.3 mg/dL [place] Calcium [Mass/Vol] 8.2 mg/dL Low 8.4 - 10. 4 mg/dL [place] Chloride [Moles/Vol] 107 mmol/L 98 - 10 7 mmol/L [place] CO2 [Moles/Vol] 28 mmol/L 22 - 30 mmol/L [place] Creatinine [Mass/Vol] 0.6 mg/dL 0.52 - 1.25 mg/dL [place] EGFR IF NonAfrican Turkmen >90.0 >60 mL/min [place] Comment on above: KDIGO guidelines pro [...] MDRD (S/P/Bld) [Vol rate/Area] mL/min/{1.73_m2} >60 mL/min [place] Glucose [Mass/Vol] 118 mg/dL High 70 - 100 mg/dL [place] Potassium [Moles/Vol] 4.2 mmol/L 3.5 - 5.1 mmol/L [place] Protein [Mass/Vol] 6.0 g/dL Low 6.3 - 8.2 g/dL [place] Sodium [Moles/Vol] 139 mmol/L 135 - 145 mmol/L [place] Urea nitrogen [Mass/Vol] 31 mg/dL High 7 - 20 mg/d L [place] D-Dimer, Quantitativeon 10-16 D-Dimer, Quant 5.62 mg/L High 0 - 0.5 mg/L [place], [place] Comment on above: [employer] D-Dimer va lues of <0.50 mg/L FEU can be used in combination with a pre-test probability model (e.g. Well's) to exclude pulmonary embolism (PE) disease, as well as an aid in the diagnosis of deep vein thrombosis (DVT). Interpretation and review of laboratory results Abnormal [facility] [place] Test Performed by [employer] [facility], [address] [place], [place] [id number] [place] [address] Ferritinon 10-29-2020 Ferritin [Mass/Vol] 618 ng/mL High 18 - 464 ng/mL [place] Interpretation and review of laboratory results Abnormal [facility] [place] Test Performed by [employer] [facility], [address] [place], [place] [id number] [place] [address] Lactate Dehydrogenaseon 10-16 LD 292 U/L High 120 - 246 U/L [place] Magnesiumon 10-29-2020 Magnesium [Mass/Vol] 2.3 mg/dL 1.6 - 2 .3 mg/dL [place] Otheron 10-29-2020 Interpretation and review of laboratory results Abnormal [facility] [place] Test Performed by [employer] [facility], [address] [place], [place] [id number] [place] [address] POCT Arterialon 10-29-2020 Base Excess, Arterial 2.9 mmol/L -3 - 3 mmol/L [place] HCO3, Arterial 27.1 mmol/L High 21 - 25 mmol/L [place] Interpretation and review of laboratory results Abnormal [place] Oxygen saturation in Blood 94.3 % Low 95 - 100 % [place] pCO2, Arterial 39.1 mm[Hg] 35 - 45 mm[Hg] [place] pH, Arterial 7.449 [place], [place] pO2, Arterial 69.0 mm[Hg] Low 80 - 100 mm[Hg] [place] Sodium [Moles/Vol] 45 mmol/L [place], [place] Comment on above: Performed by [facility] ID : [id number] [place], [place] TCO2, Arterial 28.3 mmol/L High 23 - 27 mmol/L [place] Test Performed by [facility], [address] Phosphoruson 10-29-2020 Phosphate [Mass/Vol] 3.3 mg/dL 2.5 - 4 .5 mg/dL [place] Test Performed by [facility], [address] XR CHEST PORTABLEon 10-29-19 Patient Name: JOSEPH BROWN Diagnostic Radiology ACCESSION EXAM DATE/TIME PROCEDURE ORDERING PROVIDER [id number] 10/29/2020 05:58 EST CR Chest Portable AMARILIS LUKE JEFFREY A CPT code 02072 Reason For Exam (CR Chest Portable) pneumonia [...] infiltrates are present. Report Dictated on Workstation: [facility] --- Final --- Dictating Physician: DO CID ALFRED Signed Date and Time: 10/29/2020 6:15 am Signed by: DO CID ALFRED Transcribed Date and Time: 10/29/2020 6:16 [place], [place] Antoine Billingsley Incoming Radiology Results From [facility] - 10/29/2020 6:16 AM EST Patient Name: JOSEPH BROWN Diagnostic Radiology ACCESSION EXAM DATE/TIME PROCEDURE ORDERING PROVIDER [id number] 10/29/2020 05:58 EST CR Chest Portable AMARILIS LUKE JEFFREY A CPT code 35183 Reason For Exam (CR Chest Portable) pneumonia [...] ALFRED Transcribed Date and Time: 10/29/2020 6:16 [place] C-Reactive Proteinon 021 CRP [Mass/Vol] 88 mg/L High 0 - 6 mg/L [place], [place] Comment on above: . CBC Auto Differentialon 10-16 Absolute Baso # 0.0 10*3/uL 0 - 0.2 10*3/uL [place] Absolute Neut # 6.4 10*3/uL 1.8 - 7 10*3/uL [place] Basophils/100 WBC (Bld) 0.2 % 0 - 2 % [place] Eosinophils (Bld) [#/Vol] 0.2 10*3/uL 0 - 0.5 10*3/uL [place] Eosinophils/100 WBC (Bld) 3.0 % 1 - 6 % [place] Erythrocyte distribution width (RBC) [Ratio] 14.4 % 11.5 - 14.5 % [place] Granulocytes/100 WBC (Bld) 79.9 % 40 - 80 % [place] Hematocrit (Bld) [Volume fraction] 31.9 % Low 40 - 52 % [place] Hemoglobin (Bld) [Mass/Vol] 10.7 g/dL Low 13 - 18 g/dL [place] Interpretation and review of laboratory results Abnormal [place] Lymphocytes (Bld) [#/Vol] 0.7 10*3/uL Low 1 - 4.3 10*3/uL [place] Lymphocytes/100 WBC (Bld) 8.7 % Low 20 - 40 % [place] MCH (RBC) [Entitic mass] 30.4 pg 26 - 34 pg [place] MCHC (RBC) [Mass/Vol] 33.5 % 32 - 36 % [place], [place] MCV (RBC) [Entitic vol] 90.7 fL 80 - 98 fL [place], [place] Monocytes (Bld) [#/Vol] 0.7 10*3/uL 0 - 0.8 10*3/uL [place] Monocytes/100 WBC (Bld) 8.2 % 2 - 10 % [place] Platelet mean volume (Bld) [Entitic vol] 8.2 fL 7.4 - 10.4 fL [place] Platelets (Bld) [#/Vol] 235 10*3/uL 140 - 440 10*3/uL [place] RBC (Bld) [#/Vol] 3.51 10*6/uL Low 4.4 - 5.9 10*6/uL [place] WBC (Bld) [#/Vol] 8.0 10*3/uL 3.6 - 10.7 10*3/uL [place] Test Performed by [facility] [employer] [facility], [address], [place], [place] [id number] [place] [address] Calcium, Ionizedon 1 Ionized Ca 4.40 mg/dL 4.3 - 5.2 mg/dL [place] pH (Bld) 7.45 [pH] [place] Test Performed by [facility], [address], [place], [place] [address] [place] Comprehensive Metabolic Pane l w/ Reflex to MGon 10-28-2020 Albumin [Mass/Vol] 2.8 g/dL Low 3.5 - 5 g/dL [place] ALP [Catalytic activity/Vol] 64 U/L 38 - 126 U/L [place] ALT [Catalytic activity/Vol] 40 U/L 0 - 49 U/L [place] Comment on above: The ALT test is perf ormed by an updated assay method. Please note that the reference intervals have been changed and are now sex specific. Anion gap [Moles/Vol] 6 mmol/L [place], [place] AST [Catalytic activity/Vol] 45 U/L 15 - 46 U/L [place] Bilirubin Ql (U) 0.6 mg/dL 0.2 - 1.3 mg/dL [place] Calcium [Mass/Vol] 8.2 mg/dL Low 8.4 - 10. 4 mg/dL [place] Chloride [Moles/Vol] 106 mmol/L 98 - 10 7 mmol/L [place] CO2 [Moles/Vol] 28 mmol/L 22 - 30 mmol/L [place] Creatinine [Mass/Vol] 0.64 mg/dL 0.52 - 1.25 mg/dL [place] EGFR IF NonAfrican Turkmen >90.0 >60 mL/min [place] Comment on above: KDIGO guidelines pro [...] MDRD (S/P/Bld) [Vol rate/Area] mL/min/{1.73_m2} >60 mL/min [facility] [employer] [facility] [place] Glucose [Mass/Vol] 146 mg/dL High 70 - 100 mg/dL [facility] [place] Potassium [Moles/Vol] 4.2 mmol/L 3.5 - 5.1 mmol/L [facility] [place] Protein [Mass/Vol] 6.0 g/dL Low 6.3 - 8.2 g/dL [facility] [place] Sodium [Moles/Vol] 140 mmol/L 135 - 145 mmol/L [facility] [place] Urea nitrogen [Mass/Vol] 32 mg/dL High 7 - 20 mg/d L [email or web address] Culture, Respiratoryon 10-28 Interpretation and review of laboratory results Abnormal [facility] [employer] [place] Respiratory Culture Few normal respiratory yolanda. Abnormal [facility] [email or web address] Respiratory Culture Moderate [facility] [place] [place] Respiratory Culture Streptococcus pneumoniae Abnormal [facility] [place] Test Performed by [employer], [address] [place] [address] [facility] [place] D-Dimer, Quantitativeon 10-16 D-Dimer, Quant 3.85 mg/L High 0 - 0.5 mg/L [place], [place] Comment on above: [employer] D-Dimer va lues of <0.50 mg/L FEU can be used in combination with a pre-test probability model (e.g. Well's) to exclude pulmonary embolism (PE) disease, as well as an aid in the diagnosis of deep vein thrombosis (DVT). Interpretation and review of laboratory results Abnormal [facility] [employer] [place] Test Performed by [employer], [address] [place], [place] [address] [facility]- [place] Ferritinon 10-28-2020 Ferritin [Mass/Vol] 594 ng/mL High 18 - 464 ng/mL [facility] [place] Interpretation and review of laboratory results Abnormal [facility] [place] Test Performed by [facility], [address], [place], [place] [address] [place] [address]- [place] Lactate Dehydrogenaseon 10-16 LD 283 U/L High 120 - 246 U/L [facility] [place] Magnesiumon 10-28-2020 Magnesium [Mass/Vol] 2.5 mg/dL High 1.6 - 2 .3 mg/dL [facility] Otheron 10-28-2020 Interpretation and review of laboratory results Abnormal [facility], [place] Test Performed by [employer] [facility], [address], [place], [place] [id number] [place] [address]- [place] POCT Arterialon 10-28-2020 Base Excess, Arterial 3.0 mmol/L -3 - 3 mmol/L [facility], [place] HCO3, Arterial 27.1 mmol/L High 21 - 25 mmol/L [facility] [place], [place] Interpretation and review of laboratory results Abnormal [facility], [place] Oxygen saturation in Blood 93.8 % Low 95 - 100 % [facility] [place], [place] pCO2, Arterial 38.5 mm[Hg] 35 - 45 mm[Hg] [facility] [place], [place] pH, Arterial 7.455 High [facility], [place] pO2, Arterial 66.3 mm[Hg] Low 80 - 100 mm[Hg] [facility], [place] Sodium [Moles/Vol] 45 mmol/L [facility], [place] Comment on above: Performed by [facility] ID : [id number] [place], [place] TCO2, Arterial 28.3 mmol/L High 23 - 27 mmol/L [facility] [place] Test Performed by [employer] [facility], [address], [address]- [place], [place] Phosphoruson 10-28-2020 Phosphate [Mass/Vol] 3.6 mg/dL 2.5 - 4 .5 mg/dL [facility] [place] Test Performed by [facility], [address] [place], [place], [place] [address] [place] C-Reactive Proteinon 021 CRP [Mass/Vol] 72 mg/L High 0 - 6 mg/L [place], [place] Comment on above: . CBC Auto Differentialon 10-16 Absolute Baso # 0.0 10*3/uL 0 - 0.2 10*3/uL [place] Absolute Neut # 5.8 10*3/uL 1.8 - 7 10*3/uL [place] Basophils/100 WBC (Bld) 0.2 % 0 - 2 % [place] Eosinophils (Bld) [#/Vol] 0.1 10*3/uL 0 - 0.5 10*3/uL [place] Eosinophils/100 WBC (Bld) 1.6 % 1 - 6 % [place] Erythrocyte distribution width (RBC) [Ratio] 14.4 % 11.5 - 14.5 % [place] Granulocytes/100 WBC (Bld) 80.4 % High 40 - 80 % [place] Hematocrit (Bld) [Volume fraction] 31.6 % Low 40 - 52 % [place] Hemoglobin (Bld) [Mass/Vol] 10.5 g/dL Low 13 - 18 g/dL [place] Interpretation and review of laboratory results Abnormal [place] Lymphocytes (Bld) [#/Vol] 0.6 10*3/uL Low 1 - 4.3 10*3/uL [place] Lymphocytes/100 WBC (Bld) 8.2 % Low 20 - 40 % [place] MCH (RBC) [Entitic mass] 29.9 pg 26 - 34 pg [place] MCHC (RBC) [Mass/Vol] 33.2 % 32 - 36 % [place] MCV (RBC) [Entitic vol] 90.1 fL 80 - 98 fL [place], [place] Monocytes (Bld) [#/Vol] 0.7 10*3/uL 0 - 0.8 10*3/uL [place] Monocytes/100 WBC (Bld) 9.6 % 2 - 10 % [place], [place] Platelet mean volume (Bld) [Entitic vol] 7.9 fL 7.4 - 10.4 fL [place] Platelets (Bld) [#/Vol] 245 10*3/uL 140 - 440 10*3/uL [place] RBC (Bld) [#/Vol] 3.51 10*6/uL Low 4.4 - 5.9 10*6/uL [place] WBC (Bld) [#/Vol] 7.2 10*3/uL 3.6 - 10.7 10*3/uL [place] Test Performed by [facility], [address] [place], [place], [place] [address] [place] [address] Calcium, Ionizedon Ionized Ca 4.40 mg/dL 4.3 - 5.2 mg/dL [place] pH (Bld) 7.46 [pH] [place] Test Performed by [facility], [address] [place], [place] [id number] [place] [address] Comprehensive Metabolic Pane l w/ Reflex to MGon 10-27-2020 Albumin [Mass/Vol] 2.9 g/dL Low 3.5 - 5 g/dL [place] ALP [Catalytic activity/Vol] 61 U/L 38 - 126 U/L [place] ALT [Catalytic activity/Vol] 29 U/L 0 - 49 U/L [place] Comment on above: The ALT test is perf ormed by an updated assay method. Please note that the reference intervals have been changed and are now sex specific. Anion gap [Moles/Vol] 5 mmol/L [place], [place] AST [Catalytic activity/Vol] 41 U/L 15 - 46 U/L [place] Bilirubin Ql (U) 0.7 mg/dL 0.2 - 1.3 mg/dL [place] Calcium [Mass/Vol] 8.0 mg/dL Low 8.4 - 10. 4 mg/dL [place] Chloride [Moles/Vol] 104 mmol/L 98 - 10 7 mmol/L [place] CO2 [Moles/Vol] 31 mmol/L High 22 - 30 mmol/L [place] Creatinine [Mass/Vol] 0.62 mg/dL 0.52 - 1.25 mg/dL [place] EGFR IF NonAfrican Turkmen >90.0 >60 mL/min [place] Comment on above: KDIGO guidelines pro [...] MDRD (S/P/Bld) [Vol rate/Area] mL/min/{1.73_m2} >60 mL/min [place] Glucose [Mass/Vol] 126 mg/dL High 70 - 100 mg/dL [place] Potassium [Moles/Vol] 4.3 mmol/L 3.5 - 5.1 mmol/L [place] Protein [Mass/Vol] 6.0 g/dL Low 6.3 - 8.2 g/dL [place] Sodium [Moles/Vol] 139 mmol/L 135 - 145 mmol/L [place] Urea nitrogen [Mass/Vol] 30 mg/dL High 7 - 20 mg/d L [place] D-Dimer, Quantitativeon 10-16 D-Dimer, Quant 4.7 mg/L High 0 - 0.5 mg/L [place] Comment on above: [employer] D-Dimer va lues of <0.50 mg/L FEU can be used in combination with a pre-test probability model (e.g. Well's) to exclude pulmonary embolism (PE) disease, as well as an aid in the diagnosis of deep vein thrombosis (DVT). Interpretation and review of laboratory results Abnormal [facility] Test Performed by [facility], [address], [place], [place] [address] [facility] [place] Ferritinon 10-27-2020 Ferritin [Mass/Vol] 567 ng/mL High 18 - 464 ng/mL [place] Interpretation and review of laboratory results Abnormal [facility] [employer] Test Performed by [facility], [address], [place], [place] [address] [place] Lactate Dehydrogenaseon 10-16 LD 310 U/L High 120 - 246 U/L [place] Magnesiumon 10-27-2020 Magnesium [Mass/Vol] 2.5 mg/dL High 1.6 - 2 .3 mg/dL [facility] Otheron 10-27-2020 Interpretation and review of laboratory results Abnormal [facility] [employer] Test Performed by [employer] [facility], [address], [place], [place] [address] [facility], TIFF POCT Arterialon 10-27-2020 Base Excess, Arterial 3.6 mmol/L High -3 - 3 mmol/L [facility], [place] HCO3, Arterial 27.7 mmol/L High 21 - 25 mmol/L [facility], [place] Interpretation and review of laboratory results Abnormal [facility] [employer] [place] Oxygen saturation in Blood 94.7 % Low 95 - 100 % [facility] [employer] [place] pCO2, Arterial 39.5 mm[Hg] 35 - 45 mm[Hg] [facility], [place] pH, Arterial 7.455 High [facility], [place] pO2, Arterial 70.2 mm[Hg] Low 80 - 100 mm[Hg] [facility], [place] Sodium [Moles/Vol] 50 mmol/L [facility], [place] Comment on above: Performed by [facility] ID : [id number] [place], [place] TCO2, Arterial 29 mmol/L High 23 - 27 mmol/L [place] Test Performed by [facility], [address] [place], [place], [place] [address] [place] PROCALCITONINon 10-27-2020 Interpretation and review of laboratory results Abnormal [place] Procalcitonin 0.17 ng/mL Abnormal <0.10 [place] Sodium [Moles/Vol] See Below [place] Comment on above: PCT <0.50 = Low risk of severe sepsis and/or septic shock. PCT >2.00 = High risk of severe sepsis and/or septic shock. Test Performed by [facility], [address] [place] [address] [place] Phosphoruson 10-27-2020 Phosphate [Mass/Vol] 3.7 mg/dL 2.5 - 4 .5 mg/dL [place] XR CHEST PORTABLEon 10-27-19 Patient Name: JOSEPH BROWN Diagnostic Radiology ACCESSION EXAM DATE/TIME PROCEDURE ORDERING PROVIDER [id number] 10/27/2020 05:35 EST CR Chest Portable MD ALFORD JAMES A CPT code 37192 Reason For Exam (CR Chest Portable) pneumonia, [...] ALFRED Transcribed Date and Time: 10/27/2020 5:35 [place] [facility] Incoming Radiology Results From [facility] - 10/27/2020 5:35 AM EST Patient [facility]: [id number] Diagnostic Radiology ACCESSION EXAM DATE/TIME PROCEDURE ORDERING PROVIDER [id number] 10/27/2020 05:35 EST CR Chest Portable MD ALFORD JAMES A CPT code 86085 Reason For Exam (CR Chest Portable) pneumonia, [...] ALFRED Transcribed Date and Time: 10/27/2020 5:35 [place] C-Reactive Proteinon 021 CRP [Mass/Vol] 131.8 mg/L High 0 - 6 mg/L [place], [place] Comment on above: . Interpretation and review of laboratory results Abnormal [place] Test Performed by [facility], [address] [place], [place] [id number] [place] [address] CBC Auto Differentialon 10-16 Absolute Baso # 0.0 10*3/uL 0 - 0.2 10*3/uL [place] Absolute Neut # 6.3 10*3/uL 1.8 - 7 10*3/uL [place] Basophils/100 WBC (Bld) 0.0 % 0 - 2 % [place] Eosinophils (Bld) [#/Vol] 0.0 10*3/uL 0 - 0.5 10*3/uL [place] Eosinophils/100 WBC (Bld) 0.4 % Low 1 - 6 % [place] Erythrocyte distribution width (RBC) [Ratio] 14.2 % 11.5 - 14.5 % [place] Granulocytes/100 WBC (Bld) 88.2 % High 40 - 80 % [place] Hematocrit (Bld) [Volume fraction] 28.9 % Low 40 - 52 % [place] Hemoglobin (Bld) [Mass/Vol] 9.7 g/dL Low 13 - 18 g/dL [place] Interpretation and review of laboratory results Abnormal [place] Lymphocytes (Bld) [#/Vol] 0.4 10*3/uL Low 1 - 4.3 10*3/uL [place] Lymphocytes/100 WBC (Bld) 5.0 % Low 20 - 40 % [place] MCH (RBC) [Entitic mass] 30.1 pg 26 - 34 pg [place] MCHC (RBC) [Mass/Vol] 33.4 % 32 - 36 % [place] MCV (RBC) [Entitic vol] 90.2 fL 80 - 98 fL [place], [place] Monocytes (Bld) [#/Vol] 0.5 10*3/uL 0 - 0.8 10*3/uL [place] Monocytes/100 WBC (Bld) 6.4 % 2 - 10 % [place] Platelet mean volume (Bld) [Entitic vol] 8.4 fL 7.4 - 10.4 fL [place] Platelets (Bld) [#/Vol] 190 10*3/uL 140 - 440 10*3/uL [place] RBC (Bld) [#/Vol] 3.21 10*6/uL Low 4.4 - 5.9 10*6/uL [place] WBC (Bld) [#/Vol] 7.1 10*3/uL 3.6 - 10.7 10*3/uL [place] Test Performed by [employer] [facility], [address], [place], [place] [address] [place] Calcium, Ionizedon Ionized Ca 4.40 mg/dL 4.3 - 5.2 mg/dL [place] pH (Bld) 7.44 [pH] [place] Test Performed by [facility], [address], [place], [place] [address] [place] Comprehensive Metabolic Pane l w/ Reflex to MGon 10-26-2020 Albumin [Mass/Vol] 2.7 g/dL Low 3.5 - 5 g/dL [place] ALP [Catalytic activity/Vol] 59 U/L 38 - 126 U/L [place] ALT [Catalytic activity/Vol] 23 U/L 0 - 49 U/L [place] Comment on above: The ALT test is perf ormed by an updated assay method. Please note that the reference intervals have been changed and are now sex specific. Anion gap [Moles/Vol] 5 mmol/L [place], [place] AST [Catalytic activity/Vol] 36 U/L 15 - 46 U/L [place] Bilirubin Ql (U) 0.6 mg/dL 0.2 - 1.3 mg/dL [place] Calcium [Mass/Vol] 7.9 mg/dL Low 8.4 - 10. 4 mg/dL [place] Chloride [Moles/Vol] 102 mmol/L 98 - 10 7 mmol/L [place] CO2 [Moles/Vol] 31 mmol/L High 22 - 30 mmol/L [place] Creatinine [Mass/Vol] 0.66 mg/dL 0.52 - 1.25 mg/dL [place] EGFR IF NonAfrican Turkmen >90.0 >60 mL/min [place] Comment on above: KDIGO guidelines pro [...] MDRD (S/P/Bld) [Vol rate/Area] mL/min/{1.73_m2} >60 mL/min [email or web address] Glucose [Mass/Vol] 189 mg/dL High 70 - 100 mg/dL [email or web address] Potassium [Moles/Vol] 3.9 mmol/L 3.5 - 5.1 mmol/L [facility] [employer] Protein [Mass/Vol] 5.5 g/dL Low 6.3 - 8.2 g/dL [facility] [employer] Sodium [Moles/Vol] 137 mmol/L 135 - 145 mmol/L [email or web address] Urea nitrogen [Mass/Vol] 34 mg/dL High 7 - 20 mg/d L [email or web address] D-Dimer, Quantitativeon 10-16 D-Dimer, Quant 6.66 mg/L High 0 - 0.5 mg/L [facility] [facility] [place] Comment on above: [employer] D-Dimer va lues of <0.50 mg/L FEU can be used in combination with a pre-test probability model (e.g. Well's) to exclude pulmonary embolism (PE) disease, as well as an aid in the diagnosis of deep vein thrombosis (DVT). Interpretation and review of laboratory results Abnormal [employer] [facility] Performed by [employer], [address] [place], [place] [address] [place] [address] [place], [place] [email or web address] Ferritinon 10-26-2020 Ferritin [Mass/Vol] 575 ng/mL High 18 - 464 ng/mL [email or web address] Interpretation and review of laboratory results Abnormal [employer] Test Performed by [employer], [address] [place], [place] [id number] [place] [address] Lactate Dehydrogenaseon 10-16 LD 322 U/L High 120 - 246 U/L [place], [place] Magnesiumon 10-26-2020 Magnesium [Mass/Vol] 2.6 mg/dL High 1.6 - 2 .3 mg/dL [facility], [place] Otheron 10-26-2020 Interpretation and review of laboratory results Abnormal [place], [place] Test Performed by [facility] [facility], [address], [place], [place] [id number] [place] [address] POCT Arterialon 10-26-2020 Base Excess, Arterial 3.2 mmol/L High -3 - 3 mmol/L [place] HCO3, Arterial 27.4 mmol/L High 21 - 25 mmol/L [place] Interpretation and review of laboratory results Abnormal [place] Oxygen saturation in Blood 96.1 % 95 - 100 % [place] pCO2, Arterial 39.3 mm[Hg] 35 - 45 mm[Hg] [place] pH, Arterial 7.451 High [place] pO2, Arterial 78.6 mm[Hg] Low 80 - 100 mm[Hg] [place] Sodium [Moles/Vol] 50 mmol/L [place] Comment on above: Performed by DELFINO ID : [id number] [place], [place] TCO2, Arterial 28.6 mmol/L High 23 - 27 mmol/L [place] Test Performed by [facility], [address], [place], [place] [id number] [place] [address] Phosphoruson 10-26-2020 Phosphate [Mass/Vol] 3.2 mg/dL 2.5 - 4 .5 mg/dL [place] Test Performed by [facility], [address] [place], [place] [id number] [place] [address] C-Reactive Proteinon 021 CRP [Mass/Vol] 245.5 mg/L High 0 - 6 mg/L [place] Comment on above: . Interpretation and review of laboratory results Abnormal [place] Test Performed by [facility], [address], [place], [place] [address] [place] CBC Auto Differentialon 10-16 Absolute Baso # 0.0 10*3/uL 0 - 0.2 10*3/uL [place] Absolute Neut # 9.1 10*3/uL High 1.8 - 7 10*3/uL [place] Basophils/100 WBC (Bld) 0.1 % 0 - 2 % [place] Eosinophils (Bld) [#/Vol] 0.0 10*3/uL 0 - 0.5 10*3/uL [place] Eosinophils/100 WBC (Bld) 0.0 % Low 1 - 6 % [place] Erythrocyte distribution width (RBC) [Ratio] 14.5 % 11.5 - 14.5 % [place] Granulocytes/100 WBC (Bld) 90.7 % High 40 - 80 % [place] Hematocrit (Bld) [Volume fraction] 33.8 % Low 40 - 52 % [place] Hemoglobin (Bld) [Mass/Vol] 11.1 g/dL Low 13 - 18 g/dL [place] Interpretation and review of laboratory results Abnormal [place] Lymphocytes (Bld) [#/Vol] 0.4 10*3/uL Low 1 - 4.3 10*3/uL [place] Lymphocytes/100 WBC (Bld) 4.3 % Low 20 - 40 % [place] MCH (RBC) [Entitic mass] 29.8 pg 26 - 34 pg [place] MCHC (RBC) [Mass/Vol] 32.9 % 32 - 36 % [place] MCV (RBC) [Entitic vol] 90.5 fL 80 - 98 fL [place] Monocytes (Bld) [#/Vol] 0.5 10*3/uL 0 - 0.8 10*3/uL [place] Monocytes/100 WBC (Bld) 4.9 % 2 - 10 % [place] Platelet mean volume (Bld) [Entitic vol] 8.1 fL 7.4 - 10.4 fL [place] Platelets (Bld) [#/Vol] 224 10*3/uL 140 - 440 10*3/uL [place] RBC (Bld) [#/Vol] 3.73 10*6/uL Low 4.4 - 5.9 10*6/uL [place] WBC (Bld) [#/Vol] 10.0 10*3/uL 3.6 - 10.7 10*3/uL [place] Test Performed by [facility], [address], [place], [place] [address] [place] Calcium, Ionizedon 1 Interpretation and review of laboratory results Abnormal [place] Ionized Ca 4.40 mg/dL 4.3 - 5.2 mg/dL [place] pH (Bld) 7.47 [pH] [place] Test Performed by [facility], [address], [place], [place] [address] [place] Comprehensive Metabolic Pane l w/ Reflex to MGon 10-25-2020 Albumin [Mass/Vol] 2.7 g/dL Low 3.5 - 5 g/dL [place] ALP [Catalytic activity/Vol] 72 U/L 38 - 126 U/L [place] ALT [Catalytic activity/Vol] 25 U/L 0 - 49 U/L [place] Comment on above: The ALT test is perf ormed by an updated assay method. Please note that the reference intervals have been changed and are now sex specific. Anion gap [Moles/Vol] 4 mmol/L [place], [place] AST [Catalytic activity/Vol] 41 U/L 15 - 46 U/L [place] Bilirubin Ql (U) 1.0 mg/dL 0.2 - 1.3 mg/dL [place] Calcium [Mass/Vol] 8.2 mg/dL Low 8.4 - 10. 4 mg/dL [place] Chloride [Moles/Vol] 102 mmol/L 98 - 10 7 mmol/L [place] CO2 [Moles/Vol] 31 mmol/L High 22 - 30 mmol/L [place] Creatinine [Mass/Vol] 0.74 mg/dL 0.52 - 1.25 mg/dL [place] EGFR IF NonAfrican Turkmen >90.0 >60 mL/min [place] Comment on above: KDIGO guidelines pro [...] MDRD (S/P/Bld) [Vol rate/Area] mL/min/{1.73_m2} >60 mL/min [place] Glucose [Mass/Vol] 153 mg/dL High 70 - 100 mg/dL [place] Potassium [Moles/Vol] 3.9 mmol/L 3.5 - 5.1 mmol/L [place] Protein [Mass/Vol] 5.8 g/dL Low 6.3 - 8.2 g/dL [place] Sodium [Moles/Vol] 137 mmol/L 135 - 145 mmol/L [place] Urea nitrogen [Mass/Vol] 32 mg/dL High 7 - 20 mg/d L [place] D-Dimer, Quantitativeon 10-16 D-Dimer, Quant >35.20 High 0 - 0.5 mg/L [place] Comment on above: [employer] D-Dimer va lues of <0.50 mg/L FEU can be used in combination with a pre-test probability model (e.g. Well's) to exclude pulmonary embolism (PE) disease, as well as an aid in the diagnosis of deep vein thrombosis (DVT). Interpretation and review of laboratory results Abnormal [place] Test Performed by [facility], [address] [place], [place] [address] [place] Ferritinon 10-25-2020 Ferritin [Mass/Vol] 678 ng/mL High 18 - 464 ng/mL [place] Interpretation and review of laboratory results Abnormal [place] Test Performed by [facility], [address] [place], [place] [address] [place] Gram Stainon 10-25-2020 INR Coag (Bld) [Relative time] Moderate polymorphonuclear cells/lpf. Few epithelial cells/lpf. Many gram positive cocci in pairs and chains. [place] Test Performed by [facility], [address] [place] [address] [place] Lactate Dehydrogenaseon 10-16 LD 430 U/L High 120 - 246 U/L [place] Magnesiumon 10-25-2020 Magnesium [Mass/Vol] 2.7 mg/dL High 1.6 - 2 .3 mg/dL [place] Otheron 10-25-2020 Interpretation and review of laboratory results Abnormal [place] Test Performed by [facility], [address] [place], [place] [address] [place] POCT Arterialon 10-25-2020 Base Excess, Arterial 2.7 mmol/L -3 - 3 mmol/L [place] HCO3, Arterial 25.8 mmol/L High 21 - 25 mmol/L [place] Interpretation and review of laboratory results Abnormal [place] Oxygen saturation in Blood 94.5 % Low 95 - 100 % [place] pCO2, Arterial 33.6 mm[Hg] Low 35 - 45 mm[Hg] [place] pH, Arterial 7.493 High [place] pO2, Arterial 66.0 mm[Hg] Low 80 - 100 mm[Hg] [facility] [place] Sodium [Moles/Vol] 50 mmol/L [facility] [place] Comment on above: Performed by CLIA ID : [id number] [place], [place] TCO2, Arterial 26.9 mmol/L 23 - 27 mmol/L [facility] [place] Test Performed by [facility], [address] [place], [place] [address] [facility] [place] Base Excess, Arterial 6.1 mmol/L High -3 - 3 mmol/L [facility] [place] HCO3, Arterial 29.4 mmol/L High 21 - 25 mmol/L [facility] [place] Interpretation and review of laboratory results Abnormal [facility] [place] Oxygen saturation in Blood 93.2 % Low 95 - 100 % [facility] [place] pCO2, Arterial 37.3 mm[Hg] 35 - 45 mm[Hg] [facility] [place] pH, Arterial 7.506 High [facility] [place] pO2, Arterial 60.9 mm[Hg] Low 80 - 100 mm[Hg] [facility] [place] Sodium [Moles/Vol] 50 mmol/L [facility] [place] Comment on above: Performed by CLIA ID : [id number] [place] TCO2, Arterial 30.6 mmol/L High 23 - 27 mmol/L [facility] [place] Test Performed by [facility], [address] [place], [place] [address] [facility] Base Excess, Arterial 2.8 mmol/L -3 - 3 mmol/L [facility] [place] HCO3, Arterial 27.7 mmol/L High 21 - 25 mmol/L [facility] [place] Interpretation and review of laboratory results Abnormal [facility] [place] Oxygen saturation in Blood 94.8 % Low 95 - 100 % [facility] [place] pCO2, Arterial 42.3 mm[Hg] 35 - 45 mm[Hg] [facility] [place] pH, Arterial 7.424 [facility] [place] pO2, Arterial 73.3 mm[Hg] Low 80 - 100 mm[Hg] [facility] [place] Sodium [Moles/Vol] 50 mmol/L [place] Comment on above: Performed by CLIA ID : [id number] [place] TCO2, Arterial 29 mmol/L High 23 - 27 mmol/L [place] Test Performed by [facility], [address], [place], [place] [address] [place] Phosphoruson 10-25-2020 Phosphate [Mass/Vol] 2.9 mg/dL 2.5 - 4 .5 mg/dL [place] VL LOWER EXTREMITY BILATERAL VENOUS DUPLEXon 10-25-2020 [facility] Lower Extremity Venous Duplex Report Patient DO KamrynB: 1955 Study 10/24/2020 Name: Joseph De Anda (64yr) Date: Patient [id number] Age: 64 Account: [id number] ID: Gender: M Loc: 222 BP: Ordering Physician: Issa Conteh Fruit Distributor: Maxine Sanchez RVT Interpreting Physician: Tigre Soriano MD Location: [facility] Indications: Edema right entire leg. Edema left entire leg. Pneumonia due to Covid. CRITICAL RESULTS: A critical finding, was reported to Neo , by Ilya Sanchez , on 10/24/2020 , at 02:00 PM. Correct read-back was verified. Conclusions 1. Acute deep vein thrombosis noted in the right peroneal veins, right posterior tibial veins, right gastrocnemius veins, right soleal vein, left popliteal vein, left peroneal veins, left posterior tibial veins, left gastrocnemius veins, and left soleal vein. 2. Acute superficial vein thrombosis noted in the right small saphenous vein. History: Risk factors: Age over 65 years. Study data: Complete lower extremity venous duplex evaluation. Grayscale 2D imaging, color Doppler imaging, and spectral Doppler analysis. Location: Vascular laboratory. Procedure: A vascular evaluation was performed with the patient in the supine position. Images were obtained using a [employer] E9 vascular ultrasound machine. Venous flow and imaging: + +- +--- -----+ + +Location +Overall +Thrombus+Properties + + +- +--- -----+ + +R CFV +Patent +--------+Normal phasicity; + + + + +spontaneous; normal + + + + +augmentation; + + + + +compressible + + +- +--- -----+ + +R saphenofemoral +Patent +--------+Compressib le + +junction + + + + + +- +--- -----+ + +R profunda +Patent +--------+ + +femoral + + + + + +- +--- -----+ + +R FV - prox. +Patent +--------+Compressib le + + +- +--- -----+ + +R FV - mid +Patent +--------+Normal phasicity; + + + + +spontaneous; normal + + + + +augmentation; + + + + +compressible + + +- +--- -----+ + +R FV - distal +Patent +--------+Compressib le + + +- +--- -----+ + +R popliteal +Patent +--------+Normal phasicity; + + + + +spontaneous; normal + + + + +augmentation; + + + + +compressible + + +- +--- -----+ + +R gastrocnemius +Likely occluded +Acute +Noncompressible + + +- +--- -----+ + +R PTV +Likely occluded +Acute +Noncompressible + + +- +--- -----+ + +R peroneal +Likely occluded +Acute +Noncompressible + + +- +--- -----+ + +R soleal +Likely occluded +Acute +Noncompressible + + +- +--- -----+ + +R GSV +Patent +--------+Compressib le + + +- +--- -----+ + +R SSV +Likely occluded +Acute +Noncompressible + + +- +--- -----+ + +L CFV +Patent +--------+Normal phasicity; + + + + +spontaneous; normal + + + + +augmentation; + + + + +compressible + + +- +--- -----+ + +L saphenofemoral +Patent +--------+Compressib le + +junction + + + + + +- +--- -----+ + +L profunda +Patent +--------+ + +femoral + + + + + +- +--- -----+ + +L FV - prox. +Patent +--------+Compressib le + + +- +--- -----+ + +L FV - mid +Patent +--------+Normal phasicity; + + + + +spontaneous; normal + + + + +augmentation; + + + + +compressible + + +- +--- -----+ + +L FV - distal +Patent +--------+Compressib le + + +- +--- -----+ + +L popliteal +Partially +Acute +Partially compressible + + +occluded + + + + +- +--- -----+ + +L gastrocnemius +Likely occluded +Acute +Noncompressible + + +- +--- -----+ + +L PTV +Likely occluded +Acute +Noncompressible + + +- +--- -----+ + +L peroneal +Likely occluded +Acute +Noncompressible + + +- +--- -----+ + +L soleal +Likely occluded +Acute +Noncompressible + + +- +--- -----+ + +L GSV +Patent +--------+Compressib le + + +- +--- -----+ + Prepared and electronically signed by Tigre Soriano MD 10/25/2020 11:55 [facility], [facility] Incoming Cardiology Results From [facility] - 10/25/2020 11:56 AM EST [facility] Lower Extremity Venous Duplex Report Patient DO KamrynB: 1955 Study 10/24/2020 Name: Joseph De Anda (64yr) Date: Patient [id number] Age: 64 Account: [id number] ID: Gender: M Loc: 222 BP: Ordering Physician: Issa Conteh Fruit Distributor: Maxine Sanchez RVT Interpreting Physician: Tigre Soriano MD Location: [facility] Indications: Edema right entire leg. Edema left entire leg. Pneumonia due to Covid. CRITICAL RESULTS: A critical finding, was reported to Neo by Ilya Sanchez , on 10/24/2020 , at 02:00 PM. Correct read-back was verified. Conclusions 1. Acute deep vein thrombosis noted in the right peroneal veins, right posterior tibial veins, right gastrocnemius veins, right soleal vein, left popliteal vein, left peroneal veins, left posterior tibial veins, left gastrocnemius veins, and left soleal vein. 2. Acute superficial vein thrombosis noted in the right small saphenous vein. History: Risk factors: Age over 65 years. Study data: Complete lower extremity venous duplex evaluation. Grayscale 2D imaging, color Doppler imaging, and spectral Doppler analysis. Location: Vascular laboratory. Procedure: A vascular evaluation was performed with the patient in the supine position. Images were obtained using a [employer] E9 vascular ultrasound machine. Venous flow and imaging: + +- +--- -----+ + +Location +Overall +Thrombus+Properties + + +- +--- -----+ + +R CFV +Patent +--------+Normal phasicity; + + + + +spontaneous; normal + + + + +augmentation; + + + + +compressible + + +- +--- -----+ + +R saphenofemoral +Patent +--------+Compressib le + +junction + + + + + +- +--- -----+ + +R profunda +Patent +--------+ + +femoral + + + + + +- +--- -----+ + +R FV - prox. +Patent +--------+Compressib le + + +- +--- -----+ + +R FV - mid +Patent +--------+Normal phasicity; + + + + +spontaneous; normal + + + + +augmentation; + + + + +compressible + + +- +--- -----+ + +R FV - distal +Patent +--------+Compressib le + + +- +--- -----+ + +R popliteal +Patent +--------+Normal phasicity; + + + + +spontaneous; normal + + + + +augmentation; + + + + +compressible + + +- +--- -----+ + +R gastrocnemius +Likely occluded +Acute +Noncompressible + + +- +--- -----+ + +R PTV +Likely occluded +Acute +Noncompressible + + +- +--- -----+ + +R peroneal +Likely occluded +Acute +Noncompressible + + +- +--- -----+ + +R soleal +Likely occluded +Acute +Noncompressible + + +- +--- -----+ + +R GSV +Patent +--------+Compressib le + + +- +--- -----+ + +R SSV +Likely occluded +Acute +Noncompressible + + +- +--- -----+ + +L CFV +Patent +--------+Normal phasicity; + + + + +spontaneous; normal + + + + +augmentation; + + + + +compressible + + +- +--- -----+ + +L saphenofemoral +Patent +--------+Compressib le + +junction + + + + + +- +--- -----+ + +L profunda +Patent +--------+ + +femoral + + + + + +- +--- -----+ + +L FV - prox. +Patent +--------+Compressib le + + +- +--- -----+ + +L FV - mid +Patent +--------+Normal phasicity; + + + + +spontaneous; normal + + + + +augmentation; + + + + +compressible + + +- +--- -----+ + +L FV - distal +Patent +--------+Compressib le + + +- +--- -----+ + +L popliteal +Partially +Acute +Partially compressible + + +occluded + + + + +- +--- -----+ + +L gastrocnemius +Likely occluded +Acute +Noncompressible + + +- +--- -----+ + +L PTV +Likely occluded +Acute +Noncompressible + + +- +--- -----+ + +L peroneal +Likely occluded +Acute +Noncompressible + + +- +--- -----+ + +L soleal +Likely occluded +Acute +Noncompressible + + +- +--- -----+ + +L GSV +Patent +--------+Compressib le + + +- +--- -----+ + Prepared and electronically signed by Tigre Soriano MD 10/25/2020 11:55 [place] Add On Lab Teston 10-24-2020 Sodium [Moles/Vol] Accepted [place] Comment on above: Specimen available & acceptable for analysis. Test Performed by [employer], [address], [place], [place] [address] [place] Basic Metabolic Panelon Anion gap [Moles/Vol] 7 mmol/L [place], [place] Calcium [Mass/Vol] 8.1 mg/dL Low 8.4 - 10. 4 mg/dL [place] Chloride [Moles/Vol] 101 mmol/L 98 - 10 7 mmol/L [place] CO2 [Moles/Vol] 29 mmol/L 22 - 30 mmol/L [place] Creatinine [Mass/Vol] 0.68 mg/dL 0.52 - 1.25 mg/dL [place] EGFR IF NonAfrican Turkmen >90.0 >60 mL/min [place] Comment on above: KDIGO guidelines pro [...] MDRD (S/P/Bld) [Vol rate/Area] mL/min/{1.73_m2} >60 mL/min [place] Glucose [Mass/Vol] 185 mg/dL High 70 - 100 mg/dL [place] Interpretation and review of laboratory results Abnormal [place] Potassium [Moles/Vol] 4.5 mmol/L 3.5 - 5.1 mmol/L [place] Sodium [Moles/Vol] 137 mmol/L 135 - 145 mmol/L [place] Urea nitrogen [Mass/Vol] 28 mg/dL High 7 - 20 mg/d L [place] Test Performed by [facility], [address] [place], [place] [id number] [place] [address] C-Reactive Proteinon 021 CRP [Mass/Vol] 240.1 mg/L High 0 - 6 mg/L [place] Comment on above: . Interpretation and review of laboratory results Abnormal [place] Test Performed by [facility], [address] [place], [place], [place] [address] [place] CBC Auto Differentialon Absolute Baso # 0.0 10*3/uL 0 - 0.2 10*3/uL [place] Absolute Neut # 8.7 10*3/uL High 1.8 - 7 10*3/uL [place] Basophils/100 WBC (Bld) 0.1 % 0 - 2 % [place] Eosinophils (Bld) [#/Vol] 0.0 10*3/uL 0 - 0.5 10*3/uL [place] Eosinophils/100 WBC (Bld) 0.1 % Low 1 - 6 % [place] Erythrocyte distribution width (RBC) [Ratio] 14.5 % 11.5 - 14.5 % [place] Granulocytes/100 WBC (Bld) 93.9 % High 40 - 80 % [place] Hematocrit (Bld) [Volume fraction] 35.7 % Low 40 - 52 % [place] Hemoglobin (Bld) [Mass/Vol] 11.9 g/dL Low 13 - 18 g/dL [place] Interpretation and review of laboratory results Abnormal [place] Lymphocytes (Bld) [#/Vol] 0.3 10*3/uL Low 1 - 4.3 10*3/uL [place] Lymphocytes/100 WBC (Bld) 3.1 % Low 20 - 40 % [place] MCH (RBC) [Entitic mass] 30.4 pg 26 - 34 pg [place] MCHC (RBC) [Mass/Vol] 33.3 % 32 - 36 % [place] MCV (RBC) [Entitic vol] 91.1 fL 80 - 98 fL [place], [place] Monocytes (Bld) [#/Vol] 0.3 10*3/uL 0 - 0.8 10*3/uL [place] Monocytes/100 WBC (Bld) 2.8 % 2 - 10 % [place] Platelet mean volume (Bld) [Entitic vol] 7.8 fL 7.4 - 10.4 fL [place] Platelets (Bld) [#/Vol] 199 10*3/uL 140 - 440 10*3/uL [place] RBC (Bld) [#/Vol] 3.92 10*6/uL Low 4.4 - 5.9 10*6/uL [place] WBC (Bld) [#/Vol] 9.2 10*3/uL 3.6 - 10.7 10*3/uL [place] Test Performed by [facility], [address] [place], [place] [address] [place] Calcium, Ionizedon 1 Interpretation and review of laboratory results Abnormal [place] Ionized Ca 4.40 mg/dL 4.3 - 5.2 mg/dL [place] pH (Bld) 7.28 [pH] Low [place] Test Performed by [facility], [address] [place], [place] [address] [place] Comprehensive Metabolic Pane l w/ Reflex to MGon 10-24-2020 Albumin [Mass/Vol] 2.9 g/dL Low 3.5 - 5 g/dL [place] ALP [Catalytic activity/Vol] 81 U/L 38 - 126 U/L [place] ALT [Catalytic activity/Vol] 35 U/L 0 - 49 U/L [place] Comment on above: The ALT test is perf ormed by an updated assay method. Please note that the reference intervals have been changed and are now sex specific. Anion gap [Moles/Vol] 6 mmol/L [place], [place] AST [Catalytic activity/Vol] 54 U/L High 15 - 46 U/L [place] Bilirubin Ql (U) 1.3 mg/dL 0.2 - 1.3 mg/dL [place] Calcium [Mass/Vol] 8.0 mg/dL Low 8.4 - 10. 4 mg/dL [place] Chloride [Moles/Vol] 103 mmol/L 98 - 10 7 mmol/L [place] CO2 [Moles/Vol] 29 mmol/L 22 - 30 mmol/L [place] Creatinine [Mass/Vol] 0.69 mg/dL 0.52 - 1.25 mg/dL [place] EGFR IF NonAfrican Turkmen >90.0 >60 mL/min [place] Comment on above: KDIGO guidelines pro [...] MDRD (S/P/Bld) [Vol rate/Area] mL/min/{1.73_m2} >60 mL/min [place] Glucose [Mass/Vol] 141 mg/dL High 70 - 100 mg/dL [place] Potassium [Moles/Vol] 4.6 mmol/L 3.5 - 5.1 mmol/L [place] Protein [Mass/Vol] 6.1 g/dL Low 6.3 - 8.2 g/dL [place] Sodium [Moles/Vol] 139 mmol/L 135 - 145 mmol/L [place] Urea nitrogen [Mass/Vol] 26 mg/dL High 7 - 20 mg/d L [place] D-Dimer, Quantitativeon D-Dimer, Quant >35.20 High 0 - 0.5 mg/L [place] Comment on above: [employer] D-Dimer va lues of <0.50 mg/L FEU can be used in combination with a pre-test probability model (e.g. Well's) to exclude pulmonary embolism (PE) disease, as well as an aid in the diagnosis of deep vein thrombosis (DVT). Interpretation and review of laboratory results Abnormal [place] Test Performed by [employer] [facility], [address] [place], [place] [address] [place] Ferritinon 10-24-2020 Ferritin [Mass/Vol] 616 ng/mL High 18 - 464 ng/mL [place] Interpretation and review of laboratory results Abnormal [place] Test Performed by [employer] [facility], [address] [place], [place] [address] [place] Lactate Dehydrogenaseon LD 714 U/L High 120 - 246 U/L [place] Magnesiumon 10-24-2020 Magnesium [Mass/Vol] 2.0 mg/dL 1.6 - 2 .3 mg/dL [place] Otheron 10-24-2020 Interpretation and review of laboratory results Abnormal [facility] [place] Test Performed by [facility], [address], [place], [place] [address] [facility] [place] POCT Arterialon 10-24-2020 Base Excess, Arterial 3.6 mmol/L High -3 - 3 mmol/L [facility] [place] HCO3, Arterial 28.0 mmol/L High 21 - 25 mmol/L [facility] [place] Interpretation and review of laboratory results Abnormal [facility] [place] Oxygen saturation in Blood 94.4 % Low 95 - 100 % [facility] [place] pCO2, Arterial 40.5 mm[Hg] 35 - 45 mm[Hg] [facility] [place] pH, Arterial 7.448 [facility] [place] pO2, Arterial 69.5 mm[Hg] Low 80 - 100 mm[Hg] [facility] [place] Sodium [Moles/Vol] 50 mmol/L [facility] [place] Comment on above: Performed by CLIA ID : [id number] [place], [place] TCO2, Arterial 29.2 mmol/L High 23 - 27 mmol/L [facility] [place] Test Performed by [facility], [address], [place], [place] [address] [facility] [place] Base Excess, Arterial 1.8 mmol/L -3 - 3 mmol/L [facility] [place] HCO3, Arterial 27.8 mmol/L High 21 - 25 mmol/L [facility] [place] Interpretation and review of laboratory results Abnormal [facility] [place] Oxygen saturation in Blood 99.7 % 95 - 100 % [facility] [place] pCO2, Arterial 48.8 mm[Hg] High 35 - 45 mm[Hg] [facility] [place] pH, Arterial 7.364 [facility] [place] pO2, Arterial 203.6 mm[Hg] High 80 - 100 mm[Hg] [facility] [place] Sodium [Moles/Vol] 60 mmol/L [facility] [place] Comment on above: Performed by CLIA ID : [id number] [place] TCO2, Arterial 29.3 mmol/L High 23 - 27 mmol/L [facility] [place] Test Performed by [facility], [address] [place] [address] [facility], [place] Base Excess, Arterial -0.6 mmol/L -3 - 3 mmol/L [facility] HCO3, Arterial 27.3 mmol/L High 21 - 25 mmol/L [facility] Interpretation and review of laboratory results Abnormal [place] Oxygen saturation in Blood 99.7 % 95 - 100 % [facility] pCO2, Arterial 57.2 mm[Hg] High 35 - 45 mm[Hg] [facility], [place] pH, Arterial 7.287 Low [place] pO2, Arterial 226.0 mm[Hg] High 80 - 100 mm[Hg] [facility] TCO2, Arterial 29.1 mmol/L High 23 - 27 mmol/L [facility], [place] Comment on above: Performed by [facility] ID : [id number] [place], [place] Test Performed by [facility], [address] [place], [place], [place] [address] [facility], [place] Phosphoruson 10-24-2020 Interpretation and review of laboratory results Abnormal [place] Phosphate [Mass/Vol] 4.7 mg/dL High 2.5 - 4 .5 mg/dL [facility], [place] Test Performed by [facility] [facility], [address] [place], [place] [address] [place] Procalcitoninon 10-24-2020 Interpretation and review of laboratory results Abnormal [place] Procalcitonin 0.35 ng/mL Abnormal <0.10 [facility], [place] Sodium [Moles/Vol] See Below [facility], [place] Comment on above: PCT <0.50 = Low risk of severe sepsis and/or septic shock. PCT >2.00 = High risk of severe sepsis and/or septic shock. Test Performed by [employer] [facility], [address] [place] [address] [facility], [place] XR CHEST PORTABLEon 10-24-19 Jose Cruz, [facility] Incoming Radiology Results From [facility] - 10/24/2020 6:02 AM EST Patient Name: JOSEPH BROWN Diagnostic Radiology ACCESSION EXAM DATE/TIME PROCEDURE ORDERING PROVIDER [id number] 10/24/2020 03:56 EST CR Chest Portable AMARILIS GOMEZ AMBER A CPT code 79694 Reason For Exam (CR Chest Portable) ETT [...] JEFFREY Transcribed Date and Time: 10/24/2020 6:02 [place] Patient Name: JOSEPH BROWN Diagnostic Radiology ACCESSION EXAM DATE/TIME PROCEDURE ORDERING PROVIDER [id number] 10/24/2020 03:56 EST CR Chest Portable AMARILIS GOMEZ AMBER A CPT code 01046 Reason For Exam (CR Chest Portable) ETT [...] JEFFREY Transcribed Date and Time: 10/24/2020 6:02 [place] Patient Name: [id number] Radiology ACCESSION EXAM DATE/TIME PROCEDURE ORDERING PROVIDER [id number] 10/24/2020 03:57 EST CR Chest Portable MD CONTEH MATTHEW CPT code 55129 Reason For Exam (CR Chest Portable) dyspnea [...] position without pneumothorax Report Dictated on Workstation: [facility]REM[facility] --- Final --- Dictating Physician: MD CUNNINGHAM JEFFREY Signed Date and Time: 10/24/2020 6:00 am Signed by: MD CUNNINGHAM JEFFREY Transcribed Date and Time: 10/24/2020 6:01 [facility], [place] Jose Cruz, [facility] Incoming Radiology Results From [facility] - 10/24/2020 6:02 AM EST Patient Name: JOSEPH BROWN [facility]#: [id number] Diagnostic Radiology ACCESSION EXAM DATE/TIME PROCEDURE ORDERING PROVIDER [id number] 10/24/2020 03:57 EST CR Chest Portable MD CONTEH MATTHEW CPT code 96997 Reason For Exam (CR Chest Portable) dyspnea [...] position without pneumothorax Report Dictated on Workstation: [facility] --- Final --- Dictating Physician: MD CUNNINGHAM JEFFREY Signed Date and Time: 10/24/2020 6:00 am Signed by: MD CUNNINGHAM JEFFREY Transcribed Date and Time: 10/24/2020 6:01 [facility] [place], [place] Jose Cruz, [facility] Incoming Radiology Results From [facility] - 10/24/2020 6:02 AM EST Patient [facility]: [id number] Diagnostic Radiology ACCESSION EXAM DATE/TIME PROCEDURE ORDERING PROVIDER [id number] 10/24/2020 05:26 EST CR Chest Portable AMARILIS GOMEZ AMBER A CPT code 83978 Reason For Exam (CR Chest Portable) Line [...] position without pneumothorax Report Dictated on Workstation: [facility] --- Final --- Dictating Physician: MD CUNNINGHAM JEFFREY Signed Date and Time: 10/24/2020 6:00 am Signed by: MD CUNNINGHAM JEFFREY Transcribed Date and Time: 10/24/2020 6:01 [place] Patient Name: JOSEPH BROWN [facility]#: [id number] Diagnostic Radiology ACCESSION EXAM DATE/TIME PROCEDURE ORDERING PROVIDER [id number] 10/24/2020 05:26 EST CR Chest Portable AMARILIS GOMEZ, PILAR A CPT code 92658 Reason For Exam (CR Chest Portable) Line [...] position without pneumothorax Report Dictated on Workstation: [facility]OTE --- Final --- Dictating Physician: MD CUNNINGHAM JEFFREY Signed Date and Time: 10/24/2020 6:00 am Signed by: MD CUNNINGHAM JEFFREY Transcribed Date and Time: 10/24/2020 6:01 [place] C-Reactive Proteinon 021 CRP [Mass/Vol] 134.2 mg/L High 0 - 6 mg/L [place], [place] Comment on above: . Interpretation and review of laboratory results Abnormal [place] Test Performed by [facility], [facility] [address] CBC Auto Differentialon Absolute Baso # 0.0 10*3/uL 0 - 0.2 10*3/uL [place] Absolute Neut # 7.9 10*3/uL High 1.8 - 7 10*3/uL [place] Basophils/100 WBC (Bld) 0.1 % 0 - 2 % [place] Eosinophils (Bld) [#/Vol] 0.0 10*3/uL 0 - 0.5 10*3/uL [place] Eosinophils/100 WBC (Bld) 0.0 % Low 1 - 6 % [place] Erythrocyte distribution width (RBC) [Ratio] 14.5 % 11.5 - 14.5 % [place] Granulocytes/100 WBC (Bld) 87.7 % High 40 - 80 % [place] Hematocrit (Bld) [Volume fraction] 37.2 % Low 40 - 52 % [place] Hemoglobin (Bld) [Mass/Vol] 12.5 g/dL Low 13 - 18 g/dL [place] Interpretation and review of laboratory results Abnormal [place] Lymphocytes (Bld) [#/Vol] 0.5 10*3/uL Low 1 - 4.3 10*3/uL [place] Lymphocytes/100 WBC (Bld) 5.3 % Low 20 - 40 % [place] MCH (RBC) [Entitic mass] 30.5 pg 26 - 34 pg [place] MCHC (RBC) [Mass/Vol] 33.5 % 32 - 36 % [place], [place] MCV (RBC) [Entitic vol] 91.0 fL 80 - 98 fL [place], [place] Monocytes (Bld) [#/Vol] 0.6 10*3/uL 0 - 0.8 10*3/uL [place] Monocytes/100 WBC (Bld) 6.9 % 2 - 10 % [place] Platelet mean volume (Bld) [Entitic vol] 8.5 fL 7.4 - 10.4 fL [place] Platelets (Bld) [#/Vol] 314 10*3/uL 140 - 440 10*3/uL [place] RBC (Bld) [#/Vol] 4.09 10*6/uL Low 4.4 - 5.9 10*6/uL [place] WBC (Bld) [#/Vol] 9.0 10*3/uL 3.6 - 10.7 10*3/uL [place] Test Performed by [facility], [address], [place], [place] [address] [place] Comprehensive Metabolic Pane l w/ Reflex to MGon 10-23-2020 Albumin [Mass/Vol] 3.1 g/dL Low 3.5 - 5 g/dL [place] ALP [Catalytic activity/Vol] 66 U/L 38 - 126 U/L [place] ALT [Catalytic activity/Vol] 34 U/L 0 - 49 U/L [place] Comment on above: The ALT test is perf ormed by an updated assay method. Please note that the reference intervals have been changed and are now sex specific. Anion gap [Moles/Vol] 7 mmol/L [place], [place] AST [Catalytic activity/Vol] 40 U/L 15 - 46 U/L [place] Bilirubin Ql (U) 0.9 mg/dL 0.2 - 1.3 mg/dL [place] Calcium [Mass/Vol] 8.5 mg/dL 8.4 - 10. 4 mg/dL [place] Chloride [Moles/Vol] 104 mmol/L 98 - 10 7 mmol/L [place] CO2 [Moles/Vol] 27 mmol/L 22 - 30 mmol/L [place] Creatinine [Mass/Vol] 0.72 mg/dL 0.52 - 1.25 mg/dL [place] EGFR IF NonAfrican Turkmen >90.0 >60 mL/min [place] Comment on above: KDIGO guidelines pro [...] MDRD (S/P/Bld) [Vol rate/Area] mL/min/{1.73_m2} >60 mL/min [place] Glucose [Mass/Vol] 106 mg/dL High 70 - 100 mg/dL [place] Potassium [Moles/Vol] 4.7 mmol/L 3.5 - 5.1 mmol/L [place] Protein [Mass/Vol] 6.4 g/dL 6.3 - 8.2 g/dL [place] Sodium [Moles/Vol] 138 mmol/L 135 - 145 mmol/L [place] Urea nitrogen [Mass/Vol] 24 mg/dL High 7 - 20 mg/d L [place] D-Dimer, Quantitativeon D-Dimer, Quant >35.20 High 0 - 0.5 mg/L [place], [place] Comment on above: [employer] D-Dimer va lues of <0.50 mg/L FEU can be used in combination with a pre-test probability model (e.g. Well's) to exclude pulmonary embolism (PE) disease, as well as an aid in the diagnosis of deep vein thrombosis (DVT). Interpretation and review of laboratory results Abnormal [place] Test Performed by [employer], [address], [place], [place] [address] [place] Ferritinon 10-23-2020 Ferritin [Mass/Vol] 552 ng/mL High 18 - 464 ng/mL [place] Interpretation and review of laboratory results Abnormal [place] Test [facility]formed by [facility], [address], [place], [place] [address] [place] Lactate Dehydrogenaseon LD 434 U/L High 120 - 246 U/L [place] Magnesiumon 10-23-2020 Magnesium [Mass/Vol] 2.2 mg/dL 1.6 - 2 .3 mg/dL [place] Otheron 10-23-2020 Interpretation and review of laboratory results Abnormal [place] Test Performed by [facility], [address], [place], [place] [address] [place] Phosphoruson 10-23-2020 Interpretation and review of laboratory results Abnormal [place] Phosphate [Mass/Vol] 4.6 mg/dL High 2.5 - 4 .5 mg/dL [place] Test Performed by [facility], [address], [place], [place] [address] [place] C-Reactive Proteinon 021 CRP [Mass/Vol] 175.3 mg/L High 0 - 6 mg/L [place], [place] Comment on above: . CBC Auto Differentialon Absolute Baso # 0.0 10*3/uL 0 - 0.2 10*3/uL [place] Absolute Neut # 6.7 10*3/uL 1.8 - 7 10*3/uL [place] Basophils/100 WBC (Bld) 0.2 % 0 - 2 % [place], [place] Eosinophils (Bld) [#/Vol] 0.0 10*3/uL 0 - 0.5 10*3/uL [place] Eosinophils/100 WBC (Bld) 0.0 % Low 1 - 6 % [place] Erythrocyte distribution width (RBC) [Ratio] 14.4 % 11.5 - 14.5 % [place] Granulocytes/100 WBC (Bld) 86.2 % High 40 - 80 % [place] Hematocrit (Bld) [Volume fraction] 33.5 % Low 40 - 52 % [place] Hemoglobin (Bld) [Mass/Vol] 11.4 g/dL Low 13 - 18 g/dL [place] Lymphocytes (Bld) [#/Vol] 0.4 10*3/uL Low 1 - 4.3 10*3/uL [place] Lymphocytes/100 WBC (Bld) 4.6 % Low 20 - 40 % [place] MCH (RBC) [Entitic mass] 30.7 pg 26 - 34 pg [place] MCHC (RBC) [Mass/Vol] 34.2 % 32 - 36 % [place] MCV (RBC) [Entitic vol] 89.9 fL 80 - 98 fL [place], [place] Monocytes (Bld) [#/Vol] 0.7 10*3/uL 0 - 0.8 10*3/uL [place] Monocytes/100 WBC (Bld) 9.0 % 2 - 10 % [place] Platelet mean volume (Bld) [Entitic vol] 7.9 fL 7.4 - 10.4 fL [place] Platelets (Bld) [#/Vol] 264 10*3/uL 140 - 440 10*3/uL [place] RBC (Bld) [#/Vol] 3.73 10*6/uL Low 4.4 - 5.9 10*6/uL [place] WBC (Bld) [#/Vol] 7.8 10*3/uL 3.6 - 10.7 10*3/uL [place] Comprehensive Metabolic Pane l w/ Reflex to MGon 10-22-2020 Albumin [Mass/Vol] 3.1 g/dL Low 3.5 - 5 g/dL [place] ALP [Catalytic activity/Vol] 58 U/L 38 - 126 U/L [place] ALT [Catalytic activity/Vol] 30 U/L 0 - 49 U/L [place] Comment on above: The ALT test is perf ormed by an updated assay method. Please note that the reference intervals have been changed and are now sex specific. Anion gap [Moles/Vol] 6 mmol/L [place], [place] AST [Catalytic activity/Vol] 44 U/L 15 - 46 U/L [place] Bilirubin Ql (U) 0.6 mg/dL 0.2 - 1.3 mg/dL [place] Calcium [Mass/Vol] 8.3 mg/dL Low 8.4 - 10. 4 mg/dL [place] Chloride [Moles/Vol] 106 mmol/L 98 - 10 7 mmol/L [place] CO2 [Moles/Vol] 26 mmol/L 22 - 30 mmol/L [place] Creatinine [Mass/Vol] 0.6 mg/dL 0.52 - 1.25 mg/dL [place] EGFR IF NonAfrican Turkmen >90.0 >60 mL/min [place] Comment on above: KDIGO guidelines pro [...] MDRD (S/P/Bld) [Vol rate/Area] mL/min/{1.73_m2} >60 mL/min [place] Glucose [Mass/Vol] 161 mg/dL High 70 - 100 mg/dL [place] Potassium [Moles/Vol] 4.8 mmol/L 3.5 - 5.1 mmol/L [place] Protein [Mass/Vol] 6.3 g/dL 6.3 - 8.2 g/dL [place] Sodium [Moles/Vol] 138 mmol/L 135 - 145 mmol/L [place] Urea nitrogen [Mass/Vol] 24 mg/dL High 7 - 20 mg/d L [place] D-Dimer, Quantitativeon D-Dimer, Quant 5.34 mg/L High 0 - 0.5 mg/L [place], [place] Comment on above: [employer] D-Dimer va lues of <0.50 mg/L FEU can be used in combination with a pre-test probability model (e.g. Well's) to exclude pulmonary embolism (PE) disease, as well as an aid in the diagnosis of deep vein thrombosis (DVT). Ferritinon 10-22-2020 Ferritin [Mass/Vol] 589 ng/mL High 18 - 464 ng/mL [place] Lactate Dehydrogenaseon LD 417 U/L High 120 - 246 U/L [place] Magnesiumon 10-22-2020 Magnesium [Mass/Vol] 2.5 mg/dL High 1.6 - 2 .3 mg/dL [place] Otheron 10-22-2020 Interpretation and review of laboratory results Abnormal [place] Test Performed by [facility], [address] [place] [address] [address], [place], [place] [address] [place] Phosphoruson 10-22-2020 Phosphate [Mass/Vol] 4.4 mg/dL 2.5 - 4 .5 mg/dL [place] C-Reactive Proteinon 021 CRP [Mass/Vol] 222.3 mg/L High 0 - 6 mg/L [place], [place] Comment on above: . CBC Auto Differentialon Absolute Baso # 0.0 10*3/uL 0 - 0.2 10*3/uL [place] Absolute Neut # 6.6 10*3/uL 1.8 - 7 10*3/uL [place] Basophils/100 WBC (Bld) 0.1 % 0 - 2 % [place], [place] Eosinophils (Bld) [#/Vol] 0.0 10*3/uL 0 - 0.5 10*3/uL [place] Eosinophils/100 WBC (Bld) 0.0 % Low 1 - 6 % [place] Erythrocyte distribution width (RBC) [Ratio] 14.9 % High 11.5 - 14.5 % [place] Granulocytes/100 WBC (Bld) 85.6 % High 40 - 80 % [place] Hematocrit (Bld) [Volume fraction] 34.2 % Low 40 - 52 % [place] Hemoglobin (Bld) [Mass/Vol] 11.2 g/dL Low 13 - 18 g/dL [place] Interpretation and review of laboratory results Abnormal [place] Lymphocytes (Bld) [#/Vol] 0.4 10*3/uL Low 1 - 4.3 10*3/uL [place] Lymphocytes/100 WBC (Bld) 5.6 % Low 20 - 40 % [place] MCH (RBC) [Entitic mass] 29.6 pg 26 - 34 pg [place] MCHC (RBC) [Mass/Vol] 32.8 % 32 - 36 % [place] MCV (RBC) [Entitic vol] 90.3 fL 80 - 98 fL [place], [place] Monocytes (Bld) [#/Vol] 0.7 10*3/uL 0 - 0.8 10*3/uL [place] Monocytes/100 WBC (Bld) 8.7 % 2 - 10 % [place] Platelet mean volume (Bld) [Entitic vol] 7.8 fL 7.4 - 10.4 fL [place] Platelets (Bld) [#/Vol] 277 10*3/uL 140 - 440 10*3/uL [place] RBC (Bld) [#/Vol] 3.78 10*6/uL Low 4.4 - 5.9 10*6/uL [place] WBC (Bld) [#/Vol] 7.7 10*3/uL 3.6 - 10.7 10*3/uL [place] Test Performed by [employer], [address], [place], [place] [address] [place] Comprehensive Metabolic Pane l w/ Reflex to MGon 10-21-2020 Albumin [Mass/Vol] 3.2 g/dL Low 3.5 - 5 g/dL [place] ALP [Catalytic activity/Vol] 58 U/L 38 - 126 U/L [place] ALT [Catalytic activity/Vol] 24 U/L 0 - 49 U/L [place] Comment on above: The ALT test is perf ormed by an updated assay method. Please note that the reference intervals have been changed and are now sex specific. Anion gap [Moles/Vol] 5 mmol/L [place], [place] AST [Catalytic activity/Vol] 37 U/L 15 - 46 U/L [place] Bilirubin Ql (U) 0.8 mg/dL 0.2 - 1.3 mg/dL [place] Calcium [Mass/Vol] 8.2 mg/dL Low 8.4 - 10. 4 mg/dL [place] Chloride [Moles/Vol] 106 mmol/L 98 - 10 7 mmol/L [place] CO2 [Moles/Vol] 25 mmol/L 22 - 30 mmol/L [place] Creatinine [Mass/Vol] 0.68 mg/dL 0.52 - 1.25 mg/dL [place] EGFR IF NonAfrican Turkmen >90.0 >60 mL/min [place] Comment on above: KDIGO guidelines pro [...] MDRD (S/P/Bld) [Vol rate/Area] mL/min/{1.73_m2} >60 mL/min [place] Glucose [Mass/Vol] 148 mg/dL High 70 - 100 mg/dL [place] Potassium [Moles/Vol] 5.0 mmol/L 3.5 - 5.1 mmol/L [place] Protein [Mass/Vol] 6.3 g/dL 6.3 - 8.2 g/dL [place] Sodium [Moles/Vol] 136 mmol/L 135 - 145 mmol/L [place] Urea nitrogen [Mass/Vol] 25 mg/dL High 7 - 20 mg/d L [place] D-Dimer, Quantitativeon D-Dimer, Quant 0.6 mg/L High 0 - 0.5 mg/L [place] Comment on above: [employer] D-Dimer va lues of <0.50 mg/L FEU can be used in combination with a pre-test probability model (e.g. Well's) to exclude pulmonary embolism (PE) disease, as well as an aid in the diagnosis of deep vein thrombosis (DVT). Interpretation and review of laboratory results Abnormal [place] Test Performed by [employer] [facility], [address] [place], [place] [address] [place] Ferritinon 10-21-2020 Ferritin [Mass/Vol] 602 ng/mL High 18 - 464 ng/mL [place] Interpretation and review of laboratory results Abnormal [place] Test Performed by [facility], [address] [place], [place] [address] [place] Lactate Dehydrogenaseon LD 416 U/L High 120 - 246 U/L [place] Magnesiumon 10-21-2020 Magnesium [Mass/Vol] 2.6 mg/dL High 1.6 - 2 .3 mg/dL [place] Otheron 10-21-2020 Interpretation and review of laboratory results Abnormal [place] Test Performed by [facility], [address], [place], [place] [address] [place] Phosphoruson 10-21-2020 Phosphate [Mass/Vol] 3.5 mg/dL 2.5 - 4 .5 mg/dL [place] Add On Lab Teston 10-20-2020 Sodium [Moles/Vol] Accepted [place] Comment on above: Specimen available & acceptable for analysis. Test Performed by [facility], [address], [place], [place] [address] [place] C-Reactive Proteinon 021 CRP [Mass/Vol] 240.7 mg/L High 0 - 6 mg/L [place], [place] Comment on above: . Interpretation and review of laboratory results Abnormal [place] Test Performed by [facility], [address], [place], [place] [address] [place] CBC Auto Differentialon Absolute Baso # 0.0 10*3/uL 0 - 0.2 10*3/uL [place] Absolute Neut # 10.0 10*3/uL High 1.8 - 7 10*3/uL [place] Basophils/100 WBC (Bld) 0.1 % 0 - 2 % [place], [place] Eosinophils (Bld) [#/Vol] 0.0 10*3/uL 0 - 0.5 10*3/uL [place] Eosinophils/100 WBC (Bld) 0.0 % Low 1 - 6 % [place] Erythrocyte distribution width (RBC) [Ratio] 14.6 % High 11.5 - 14.5 % [place] Granulocytes/100 WBC (Bld) 90.0 % High 40 - 80 % [place] Hematocrit (Bld) [Volume fraction] 36.8 % Low 40 - 52 % [place] Hemoglobin (Bld) [Mass/Vol] 12.4 g/dL Low 13 - 18 g/dL [place] Interpretation and review of laboratory results Abnormal [place] Lymphocytes (Bld) [#/Vol] 0.5 10*3/uL Low 1 - 4.3 10*3/uL [place] Lymphocytes/100 WBC (Bld) 4.4 % Low 20 - 40 % [place] MCH (RBC) [Entitic mass] 30.4 pg 26 - 34 pg [place] MCHC (RBC) [Mass/Vol] 33.7 % 32 - 36 % [place] MCV (RBC) [Entitic vol] 90.1 fL 80 - 98 fL [place], [place] Monocytes (Bld) [#/Vol] 0.6 10*3/uL 0 - 0.8 10*3/uL [place] Monocytes/100 WBC (Bld) 5.5 % 2 - 10 % [place] Platelet mean volume (Bld) [Entitic vol] 8.0 fL 7.4 - 10.4 fL [place] Platelets (Bld) [#/Vol] 237 10*3/uL 140 - 440 10*3/uL [place] RBC (Bld) [#/Vol] 4.09 10*6/uL Low 4.4 - 5.9 10*6/uL [place] WBC (Bld) [#/Vol] 11.1 10*3/uL High 3.6 - 10.7 10*3/uL [place] Test Performed by [facility], [address] [place], [place] [address] [place] Comprehensive Metabolic Pane l w/ Reflex to MGon 10-20-2020 Albumin [Mass/Vol] 3.4 g/dL Low 3.5 - 5 g/dL [place] ALP [Catalytic activity/Vol] 61 U/L 38 - 126 U/L [place] ALT [Catalytic activity/Vol] 28 U/L 0 - 49 U/L [place] Comment on above: The ALT test is perf ormed by an updated assay method. Please note that the reference intervals have been changed and are now sex specific. Anion gap [Moles/Vol] 7 mmol/L [place], [place] AST [Catalytic activity/Vol] 44 U/L 15 - 46 U/L [place] Bilirubin Ql (U) 0.9 mg/dL 0.2 - 1.3 mg/dL [place] Calcium [Mass/Vol] 8.0 mg/dL Low 8.4 - 10. 4 mg/dL [place] Chloride [Moles/Vol] 103 mmol/L 98 - 10 7 mmol/L [place] CO2 [Moles/Vol] 27 mmol/L 22 - 30 mmol/L [place] Creatinine [Mass/Vol] 0.9 mg/dL 0.52 - 1.25 mg/dL [place] EGFR IF NonAfrican Turkmen 88.1 mL/min >60 [place] Comment on above: KDIGO guidelines pro [...] MDRD (S/P/Bld) [Vol rate/Area] mL/min/{1.73_m2} >60 mL/min [place] Glucose [Mass/Vol] 148 mg/dL High 70 - 100 mg/dL [place] Potassium [Moles/Vol] 4.3 mmol/L 3.5 - 5.1 mmol/L [place] Protein [Mass/Vol] 6.7 g/dL 6.3 - 8.2 g/dL [place] Sodium [Moles/Vol] 137 mmol/L 135 - 145 mmol/L [place] Urea nitrogen [Mass/Vol] 24 mg/dL High 7 - 20 mg/d L [place] D-Dimer, Quantitativeon - D-Dimer, Quant 0.76 mg/L High 0 - 0.5 mg/L [place] Comment on above: [employer] D-Dimer va lues of <0.50 mg/L FEU can be used in combination with a pre-test probability model (e.g. Well's) to exclude pulmonary embolism (PE) disease, as well as an aid in the diagnosis of deep vein thrombosis (DVT). Interpretation and review of laboratory results Abnormal [place] Test Performed by [employer] [facility], [address] [place] [address] [place] EKG 12 Lead - Chest Painon 0 10-20-2020 [facility] 1:54 PM EST [employer] [facility] Test Date: 2020-10-19 Pat Name: Joseph Brown Department: Room: 222 Gender: M [employer]: MATT : 1955 Requested By: CANDELARIO LOMELI Order Number: [id number] Reading MD: Lady Lemus Measurements Intervals [place] Rate: 83 P: 0 AK: 137 QRS: 7 QRSD: 94 T: 24 QT: 376 QTc: 442 Interpretive Statements SINUS RHYTHM EARLY PRECORDIAL R/S TRANSITION BASELINE WANDER IN LEAD(S) V2 Compared to ECG 10/16/2020 08:11:54 No significant changes Electronically Signed On 10-20-2020 13:53:25 EST by Lady Lemus [place] [employer] [facility] Test Date: 2020-10-19 Pat Name: Joseph Brown Department: Room: 222 Gender: M [employer] As[employer]er: MATT : 1955 Requested By: CANDELARIO LOMELI Order Number: [id number] Reading MD: Lady Lemus Measurements Intervals [place] Rate: 83 P: 0 AK: 137 QRS: 7 QRSD: 94 T: 24 QT: 376 QTc: 442 Interpretive Statements SINUS RHYTHM EARLY PRECORDIAL R/S TRANSITION BASELINE WANDER IN LEAD(S) V2 Compared to ECG 10/16/2020 08:11:54 No significant changes Electronically Signed On 10-20-2020 13:53:25 EST by Lady Lemus [facility] Ferritinon 10-20-2020 Ferritin [Mass/Vol] 605 ng/mL High 18 - 464 ng/mL [facility], [place] Interpretation and review of laboratory results Abnormal [facility] [employer], [place] Test Performed by [employer], [address] [place], [place] [address] [facility] Lactate Dehydrogenaseon LD 437 U/L High 120 - 246 U/L [facility] [employer], [place] Magnesiumon 10-20-2020 Magnesium [Mass/Vol] 2.3 mg/dL 1.6 - 2 .3 mg/dL [facility], [place] Otheron 10-20-2020 Interpretation and review of laboratory results Abnormal [facility] [employer] [employer] Test Performed by [employer], [address], [place], [place] [address] [facility] [employer], [employer] POCT Arterialon 10-20-2020 Base Excess, Arterial -1.7 mmol/L -3 - 3 mmol/L [facility] [employer], [place] HCO3, Arterial 22.0 mmol/L 21 - 25 mmol/L [facility] [employer], [place] Interpretation and review of laboratory results Abnormal [facility] [employer] [place], [place] Oxygen saturation in Blood 98.2 % 95 - 100 % [facility] [employer], [place] pCO2, Arterial 33.1 mm[Hg] Low 35 - 45 mm[Hg] [facility] [employer] [place], [place] pH, Arterial 7.431 [facility] [employer] [place], [place] pO2, Arterial 104.4 mm[Hg] High 80 - 100 mm[Hg] [facility] [email or web address], [place] Sodium [Moles/Vol] 100 mmol/L [facility] [employer], [place] Comment on above: Performed by DELFIN[facility] ID : [id number] [facility] [place] TCO2, Arterial 23.1 mmol/L 23 - 27 mmol/L [facility] [employer], [place] Test Performed by [employer], [address], [place], [place] [address] [place] Phosphoruson 10-20-2020 Phosphate [Mass/Vol] 2.9 mg/dL 2.5 - 4 .5 mg/dL [place] Test Performed by [facility], [address], [place], [place] [address] [place] Procalcitoninon 10-20-2020 Interpretation and review of laboratory results Abnormal [place] Procalcitonin 0.23 ng/mL Abnormal <0.10 [place] Sodium [Moles/Vol] See Below [place] Comment on above: PCT <0.50 = Low risk of severe sepsis and/or septic shock. PCT >2.00 = High risk of severe sepsis and/or septic shock. Test Performed by [facility], [address] [place] [id number] [place] Vitamin D 25 Hydroxyon 10-20 Interpretation and review of laboratory results Abnormal [place] Vit D, 25-Hydroxy 23 ng/mL Low 30 - 100 ng/mL [place] Comment on above: Therapy is based on measurement of Total 25-OHD with the following classification levels: Less than 20 ng/mL: Indicative of Vit D deficiency 20-30 ng/mL: Suggests Vit D insufficiency Optimal: Greater than or equal to 30 ng/mL Test performed by Fair value Competitive Immunoassay, measuring Total Vitamin D, not individual fractions. Test Performed by [facility], [address], [place], [place] [address] [place] CTA CHEST W WO CONTRASTon [facility]: [id number] Computed Tomography ACCESSION EXAM DATE/TIME PROCEDURE ORDERING PROVIDER [id number] 10/19/2020 18:48 EST CTA Chest w/ + w/o Parvez GREEN MICHAEL Contrast THOMAS CPT code 81178 Q9967 Reason For Exam (CTA Chest w/ [...] NEIL Transcribed Date and Time: 10/19/2020 7:59 [facility], [place] Jose Cruz, [facility] Incoming Radiology Results From [facility] - 10/19/2020 7:59 PM EST Patient Name: JOSEPH BROWN Computed Tomography ACCESSION EXAM DATE/TIME PROCEDURE ORDERING PROVIDER [id number] 10/19/2020 18:48 EST CTA Chest w/ + w/o Parvez GREEN MICHAEL Contrast THOMAS CPT code 35554 Q9967 Reason For Exam (CTA Chest w/ [...] NEIL Transcribed Date and Time: 10/19/2020 7:59 [place] Comprehensive Metabolic Pane [place] 10-19-2020 Albumin [Mass/Vol] 3.4 g/dL Low 3.5 - 5 g/dL [place], [place] ALP [Catalytic activity/Vol] 58 U/L 38 - 126 U/L [place] ALT [Catalytic activity/Vol] 29 U/L 0 - 49 U/L [place] Comment on above: The ALT test is perf ormed by an updated assay method. Please note that the reference intervals have been changed and are now sex specific. Anion gap [Moles/Vol] 8 mmol/L [facility] [place], [place] AST [Catalytic activity/Vol] 40 U/L 15 - 46 U/L [place] Bilirubin Ql (U) 0.9 mg/dL 0.2 - 1.3 mg/dL [place] Calcium [Mass/Vol] 7.9 mg/dL Low 8.4 - 10. 4 mg/dL [place] Chloride [Moles/Vol] 103 mmol/L 98 - 10 7 mmol/L [place] CO2 [Moles/Vol] 25 mmol/L 22 - 30 mmol/L [place] Creatinine [Mass/Vol] 0.9 mg/dL 0.52 - 1.25 mg/dL [place] EGFR IF NonAfrican Turkmen 88.1 mL/min >60 [place] Comment on above: KDIGO guidelines pro [...] MDRD (S/P/Bld) [Vol rate/Area] mL/min/{1.73_m2} >60 mL/min [place] Glucose [Mass/Vol] 145 mg/dL High 70 - 100 mg/dL [place] Interpretation and review of laboratory results Abnormal [place] Potassium [Moles/Vol] 3.7 mmol/L 3.5 - 5.1 mmol/L [place] Protein [Mass/Vol] 6.5 g/dL 6.3 - 8.2 g/dL [place] Sodium [Moles/Vol] 135 mmol/L 135 - 145 mmol/L [place] Urea nitrogen [Mass/Vol] 19 mg/dL 7 - 20 mg/d L [place] Test Performed by [facility], [address], [place], [place] [address] [place] Hemogram (CBC) w/Auto Diffon 10-19-2020 Absolute Baso # 0.0 10*3/uL 0 - 0.2 10*3/uL [place] Absolute Neut # 8.2 10*3/uL High 1.8 - 7 10*3/uL [place] Basophils/100 WBC (Bld) 0.1 % 0 - 2 % [place] Eosinophils (Bld) [#/Vol] 0.0 10*3/uL 0 - 0.5 10*3/uL [place] Eosinophils/100 WBC (Bld) 0.0 % Low 1 - 6 % [place] Erythrocyte distribution width (RBC) [Ratio] 14.3 % 11.5 - 14.5 % [place] Granulocytes/100 WBC (Bld) 88.4 % High 40 - 80 % [place] Hematocrit (Bld) [Volume fraction] 36.3 % Low 40 - 52 % [place] Hemoglobin (Bld) [Mass/Vol] 12.1 g/dL Low 13 - 18 g/dL [place] Interpretation and review of laboratory results Abnormal [place] Lymphocytes (Bld) [#/Vol] 0.4 10*3/uL Low 1 - 4.3 10*3/uL [place] Lymphocytes/100 WBC (Bld) 4.3 % Low 20 - 40 % [place] MCH (RBC) [Entitic mass] 29.7 pg 26 - 34 pg [place] MCHC (RBC) [Mass/Vol] 33.3 % 32 - 36 % [place] MCV (RBC) [Entitic vol] 89.2 fL 80 - 98 fL [place] Monocytes (Bld) [#/Vol] 0.7 10*3/uL 0 - 0.8 10*3/uL [place] Monocytes/100 WBC (Bld) 7.2 % 2 - 10 % [place], [place] Platelet mean volume (Bld) [Entitic vol] 8.3 fL 7.4 - 10.4 fL [place] Platelets (Bld) [#/Vol] 217 10*3/uL 140 - 440 10*3/uL [place] RBC (Bld) [#/Vol] 4.07 10*6/uL Low 4.4 - 5.9 10*6/uL [place] WBC (Bld) [#/Vol] 9.3 10*3/uL 3.6 - 10.7 10*3/uL [place] Test Performed by [facility], [address] Troponinon 10-19-2020 Interpretation and review of laboratory results Abnormal [place] Troponin I.cardiac [Mass/Vol] 0.601 ng/mL High 0 - 0.034 ng/mL [place] Comment on above: . Test Performed by [facility], [address] Interpretation and review of laboratory results Abnormal [place] Troponin I.cardiac [Mass/Vol] 0.726 ng/mL High 0 - 0.034 ng/mL [place] Comment on above: . Test Performed by [facility], [address] Interpretation and review of laboratory results Abnormal [place] Troponin I.cardiac [Mass/Vol] 0.922 ng/mL High 0 - 0.034 ng/mL [place] Comment on above: . Test Performed by [facility], [address] Troponin x1on 10-19-2020 Interpretation and review of laboratory results Abnormal [place] Troponin I.cardiac [Mass/Vol] 0.642 ng/mL High 0 - 0.034 ng/mL [place] Comment on above: . Test Performed by [facility], [address], [place], [place] [address] [place] XR CHEST PORTABLEon 10-19-19 Jose Cruz, [facility] Incoming Radiology Results From [facility] - 10/19/2020 10:01 AM EST Patient Name: JOSEPH BROWN Diagnostic Radiology ACCESSION EXAM DATE/TIME PROCEDURE ORDERING PROVIDER [id number] 10/19/2020 09:34 EST CR Chest Portable [id number] -CARLYN LOEMLIER CPT code 09379 Reason For Exam (CR Chest Portable) COVID [...] RISA Transcribed Date and Time: 10/19/2020 10:01 [place] Patient Name: JOSEPH BROWN Diagnostic Radiology ACCESSION EXAM DATE/TIME PROCEDURE ORDERING PROVIDER [id number] 10/19/2020 09:34 EST CR Chest Portable [id number] -CANDELARIO LOMELI CPT code 21794 Reason For Exam (CR Chest Portable) COVID [...] RISA Transcribed Date and Time: 10/19/2020 10:01 [place] Basic Metabolic Panelon Anion gap [Moles/Vol] 6 mmol/L [place] Calcium [Mass/Vol] 8.4 mg/dL 8.4 - 10. 4 mg/dL [place] Chloride [Moles/Vol] 105 mmol/L 98 - 10 7 mmol/L [place] CO2 [Moles/Vol] 24 mmol/L 22 - 30 mmol/L [place] Creatinine [Mass/Vol] 0.67 mg/dL 0.52 - 1.25 mg/dL [place] EGFR IF NonAfrican Turkmen >90.0 >60 mL/min [place] Comment on above: KDIGO guidelines pro [...] MDRD (S/P/Bld) [Vol rate/Area] mL/min/{1.73_m2} >60 mL/min [place] Glucose [Mass/Vol] 120 mg/dL High 70 - 100 mg/dL [place] Interpretation and review of laboratory results Abnormal [place] Potassium [Moles/Vol] 4.0 mmol/L 3.5 - 5.1 mmol/L [place] Sodium [Moles/Vol] 134 mmol/L Low 135 - 145 mmol/L [place] Urea nitrogen [Mass/Vol] 11 mg/dL 7 - 20 mg/d L [place] Test Performed by [facility], [address], [place], [place] [address] [place] Hemogram (CBC) w/Auto Diffon 10-16-2020 Absolute Baso # 0.0 10*3/uL 0 - 0.2 10*3/uL [place] Absolute Neut # 3.4 10*3/uL 1.8 - 7 10*3/uL [place] Basophils/100 WBC (Bld) 0.6 % 0 - 2 % [place] Eosinophils (Bld) [#/Vol] 0.0 10*3/uL 0 - 0.5 10*3/uL [place] Eosinophils/100 WBC (Bld) 0.5 % Low 1 - 6 % [place] Erythrocyte distribution width (RBC) [Ratio] 14.2 % 11.5 - 14.5 % [place] Granulocytes/100 WBC (Bld) 72.7 % 40 - 80 % [place] Hematocrit (Bld) [Volume fraction] 42.4 % 40 - 52 % [place] Hemoglobin (Bld) [Mass/Vol] 14.0 g/dL 13 - 18 g/dL [place] Interpretation and review of laboratory results Abnormal [place] Lymphocytes (Bld) [#/Vol] 0.9 10*3/uL Low 1 - 4.3 10*3/uL [place] Lymphocytes/100 WBC (Bld) 19.1 % Low 20 - 40 % [place] MCH (RBC) [Entitic mass] 29.5 pg 26 - 34 pg [place] MCHC (RBC) [Mass/Vol] 33.0 % 32 - 36 % [place] MCV (RBC) [Entitic vol] 89.4 fL 80 - 98 fL [place] Monocytes (Bld) [#/Vol] 0.3 10*3/uL 0 - 0.8 10*3/uL [place] Monocytes/100 WBC (Bld) 7.1 % 2 - 10 % [place] Platelet mean volume (Bld) [Entitic vol] 8.0 fL 7.4 - 10.4 fL [place] Platelets (Bld) [#/Vol] 138 10*3/uL Low 140 - 440 10*3/uL [place] RBC (Bld) [#/Vol] 4.74 10*6/uL 4.4 - 5.9 10*6/uL [place] WBC (Bld) [#/Vol] 4.7 10*3/uL 3.6 - 10.7 10*3/uL [place] Test Performed by [facility], [address] Troponin x1on 10-16-2020 Troponin I.cardiac [Mass/Vol] ng/mL 0 - 0.034 ng/mL [place] Comment on above: . Test Performed by [facility], [address] XR CHEST PORTABLEon 10-16-19 21 [facility], [facility] Incoming Radiology Results From [facility] - 10/16/2020 8:47 AM EST Patient Name: JOSEPH BROWN Diagnostic Radiology ACCESSION EXAM DATE/TIME PROCEDURE ORDERING PROVIDER [id number] 10/16/2020 08:34 EST CR Chest Portable MD LOPEZ AUSTIN CPT code 82367 Reason For Exam (CR Chest Portable) cough, [...] JASON Transcribed Date and Time: 10/16/2020 8:47 [place] Patient Name: [id number] Diagnostic Radiology ACCESSION EXAM DATE/TIME PROCEDURE ORDERING PROVIDER [id number] 10/16/2020 08:34 EST CR Chest Portable MD LOPEZ AUSTIN CPT code 91909 Reason For Exam (CR Chest Portable) cough, [...] JASON Transcribed Date and Time: 10/16/2020 8:47 [place] EMG REPORTon 12-20-2019 William Correia MD [...] UPPER EXTREMITY LOCATION: Testing was conducted at [facility] as an outpatient. FINDINGS: Sensory nerve conduction [...] Clinical correlation is advised. Delonte Job ID: [id number] DOD:12/20/2019 09:39 A Amadou DOT:12/20/2019 10:37 A Job Number: [id number] Document Number: [id number] ###### cc: Laquita Ding DO [facility] [address] [facility] [address] [facility] [id number] [place] [address] AAA Screeningon 9 [facility] Abdominal Aortic Duplex Report Patient Name: Joseph Brown : 1955 Study Date: 06/05/2019 Neetu (63yrs) Age: 63 Account: [id number] Gender: M Loc: BP: Ordering: Laquita Ding Technologist: Ordering Physician: Laquita Ding Fruit Distributor: Dina Talbot Interpreting Physician: Brody Stewart Location: [facility] INDICATIONS: AAA screening Z87.891. Remote former smoker, [...] performed. The images were obtained using a [employer] E9 vascular ultrasound machine. Arterial flow: + -+ +------- + +-------- + !Location !V sys !AP cm !Transverse!Comment ! + -+ +------- + +-------- + !Abd aorta - prox !79 cm/s !2.65 cm!2.65 cm !--------! + -+ +------- + +-------- + !Abd aorta - mid !76.8 cm/s !2.1 cm !1.97 cm !--------! + -+ +------- + +-------- + !Abd aorta - distal !73.5 cm/s !1.68 cm!1.66 cm !--------! + -+ +------- + +-------- + !Right common iliac !69.1 cm/s !1.19 cm!1.25 cm !--------! + -+ +------- + +-------- + !Right internal iliac! !--- ----! !non vis.! + -+ +------- + +-------- + !Right external iliac!102.9 cm/s!-------!------- ---!--------! + -+ +------- + +-------- + !Left common iliac !74.4 cm/s !1.09 cm!1.18 cm !--------! + -+ +------- + +-------- + !Left internal iliac ! !-------! !non vis.! + -+ +------- + +-------- + !Left external iliac !105.1 cm/s!-------!------- ---!--------! + -+ +------- + +-------- + Electronically signed by: Brody Stewart [id number] [facility]- [place], [place] Jose Cruz, [facility] Incoming Cardiology Results From Kathleen/[facility] - 06/05/2019 1:10 PM EDT [facility] --- Abdominal Aortic Duplex Report Patient Name: Joseph Brown : 1955 Study Date: 06/05/2019 Neetu (63yrs) Age: 63 Account: [id number] Gender: M Loc: BP: Ordering: Laquita Ding Technologist: Ordering Physician: Laquita Ding Fruit Distributor: Dina Talbot Interpreting Physician: Brody Stewart --- Location: [facility] --- INDICATIONS: AAA screening Z87.891. Remote former [...] performed. The images were obtained using a [employer] E9 vascular ultrasound machine. --- Arterial flow: + -+ +------- + +-------- + !Location !V sys !AP cm !Transverse!Comment ! + -+ +------- + +-------- + !Abd aorta - prox !79 cm/s !2.65 cm!2.65 cm !--------! + -+ +------- + +-------- + !Abd aorta - mid !76.8 cm/s !2.1 cm !1.97 cm !--------! + -+ +------- + +-------- + !Abd aorta - distal !73.5 cm/s !1.68 cm!1.66 cm !--------! + -+ +------- + +-------- + !Right common iliac !69.1 cm/s !1.19 cm!1.25 cm !--------! + -+ +------- + +-------- + !Right internal iliac! !--- ----! !non vis.! + -+ +------- + +-------- + !Right external iliac!102.9 cm/s!-------!------- ---!--------! + -+ +------- + +-------- + !Left common iliac !74.4 cm/s !1.09 cm!1.18 cm !--------! + -+ +------- + +-------- + !Left internal iliac ! !-------! !non vis.! + -+ +------- + +-------- + !Left external iliac !105.1 cm/s!-------!------- ---!--------! + -+ +------- + +-------- + Electronically signed by: Brody Stewart [id number]:30 [facility], [place] Vital Signs Date Time Vital Sign Value Performing Clinician Facility 07-04-2025 13:13-0400 Body temperature 97.8 [degF] LAQUITA DING Work Phone: [facility] 07-04-2025 13:13-0400 Diastolic blood pressure 78 mm[Hg] LAQUITA DING Work Phone: [facility] 07-04-2025 13:13-0400 Heart rate 64 /min LAQUITA DING Work Phone: [facility] 07-04-2025 13:13-0400 Respiratory rate 18 /min LAQUITA DING Work Phone: [facility] 07-04-2025 13:13-0400 SaO2% (BldA) [Mass fraction] 99 % LAQUITA DING Work Phone: [facility] 07-04-2025 13:13-0400 Systolic blood pressure 114 mm[Hg] LAQUITA DING Work Phone: [facility] 07-04-2025 09:52-0400 Body mass index (BMI) [Ratio] 33.7 kg/m2 LAQUITA DING Work Phone: [facility] 07-04-2025 09:52-0400 Body weight 112.76 kg LAQUITA DING Work Phone: [facility] 07-04-2025 09:41-0400 Body height 182.88 cm LAQUITA DING Work Phone: [facility] 06-09-2025 15:04-0400 Body temperature 97.39 [degF] Marjorie Sears MD Work Phone: [facility] 06-09-2025 15:04-0400 Diastolic blood pressure 76 mm[Hg] Marjorie Sears MD Work Phone: [facility] 06-09-2025 15:04-0400 Heart rate 85 /min Marjorie Sears MD Work Phone: [facility] 06-09-2025 15:04-0400 Respiratory rate 19 /min Marjorie Sears MD Work Phone: [facility] 06-09-2025 15:04-0400 SaO2% (BldA) [Mass fraction] 96 % Marjorie Sears MD Work Phone: [facility] 06-09-2025 15:04-0400 Systolic blood pressure 137 mm[Hg] Marjorie Sears MD Work Phone: [employer] 05-22-2025 08:12-0400 Body temperature 96.91 [degF] Jacoby Glozman DO Work Phone: [employer] 05-22-2025 08:12-0400 Diastolic blood pressure 69 mm[Hg] Jacoby Glozman DO Work Phone: [employer] 05-22-2025 08:12-0400 Heart rate 74 /min Jacoby Glozman DO Work Phone: [employer] 05-22-2025 08:12-0400 Respiratory rate 20 /min Jacoby Glozman DO Work Phone: [employer] 05-22-2025 08:12-0400 SaO2% (BldA) [Mass fraction] 99 % Jacoby Glozman DO Work Phone: [employer] 05-22-2025 08:12-0400 Systolic blood pressure 122 mm[Hg] Jacoby Glozman DO Work Phone: [employer] 05-21-2025 02:06-0400 Body height 182.9 cm Jacoby Glozman DO Work Phone: [employer] 05-21-2025 02:06-0400 Body mass index (BMI) [Ratio] 31.87 kg/m2 Jacoby Glozman DO Work Phone: [employer] 05-21-2025 02:06-0400 Body weight 106.59 kg Jacoby Glozman DO Work Phone: [employer] 12-20-2024 11:18-0500 Diastolic blood pressure 65 mm[Hg] Cydney Alondra DO Work Phone: [employer] 12-20-2024 11:18-0500 Heart rate 73 /min Cydney Alondra DO Work Phone: [employer] 12-20-2024 11:18-0500 SaO2% (BldA) [Mass fraction] 98 % Cydney Alondra DO Work Phone: [employer] 12-20-2024 11:18-0500 Systolic blood pressure 118 mm[Hg] Cydney Cantu [employer] Work Phone: [employer] 12-20-2024 09:09-0500 Body height 185.4 cm Cydney Alondra [employer] Work Phone: [employer] 12-20-2024 09:09-0500 Body mass index (BMI) [Ratio] 31.66 kg/m2 Cydney [employer] Work Phone: [employer] 12-20-2024 09:09-0500 Body weight 108.86 kg Cydney Alondra DO Work Phone: [employer] 12-20-2024 09:09-0500 Respiratory rate 20 /min [facility] 11-04-2020 11:12-0500 Body Temperature 97.39 [degF] [facility] [employer] [facility] [place] 11-04-2020 11:12-0500 BP Diastolic 63 mm[Hg] [facility] , [place] 11-04-2020 11:12-0500 BP Systolic 105 mm[Hg] [facility] , [place] 11-04-2020 11:12-0500 Pulse (Heart Rate) 69 /min [facility] 11-04-2020 11:12-0500 Pulse Oximetry 94 % [facility] , [place] 11-04-2020 11:12-0500 Respiratory Rate 18 /min [facility] [place] 11-04-2020 06:31-0500 BMI (Body Mass Index) 31.1 kg/m2 [facility], [place] 11-04-2020 06:31-0500 Body weight 104.01 kg [facility] , [place] 11-02-2020 15:27-0500 Height 182.9 cm Candelario Lomeli [facility] , [place] 10-16-2020 10:01-0500 BP Diastolic 70 mm[Hg] Fransisco [facility] , [place] 10-16-2020 10:01-0500 BP Systolic 129 mm[Hg] [facility] , [place] 10-16-2020 10:01-0500 Pulse (Heart Rate) 87 /min [facility], [place] 10-16-2020 10:01-0500 Pulse Oximetry 97 % [facility] , [place] 10-16-2020 10:01-0500 Respiratory Rate 20 /min [facility], [place] 10-16-2020 07:56-0500 BMI (Body Mass Index) 32.28 kg/m2 [facility], [place] 10-16-2020 07:56-0500 Body Temperature 99.19 [degF] [facility], [place] 10-16-2020 07:56-0500 Body weight 107.96 kg [facility] , [place] Encounters Encounter Date Encounter Type Care Provider Facility Start: 08-13-2025 End: 08-13-2025 [facility] Start: 08-13-2025 End: 08-13-2025 Patient encounter [facility] Start: 07-05-2025 Encounter for preprocedural laboratory examination Haresh Johnson [facility] Start: 07-04-2025 End: 07-04-2025 Emergency department patient visit Lawrence Abad Facility:[facility] Start: 07-01-2025 End: 07-01-2025 ambulatory LAQUITA DING Work Phone: -Laboratory Specimen Start: 07-01-2025 End: 07-01-[address] Haresh Johnson MD -Laboratory Specimen Work Phone: Start: 07-01-2025 End: 07-01-2025 ambulatory Haresh Johnson Facility:[facility] Start: 06-25-2025 End: 06-25-2025 ambulatory LAQUITA DING Work Phone: -Laboratory Start: 06-25-2025 End: 06-25-[address] Haresh Johnson MD -Laboratory Work Phone: Start: 06-25-2025 End: 06-25-2025 ambulatory Haresh Johnson Facility:[facility] Start: 06-09-2025 End: 06-09-2025 Emergency department patient visit Marjorie Sears MD Work Phone: [facility] ED Comment on above: Laceration of right thumb without foreign body without damage to nail, initial encounter (Primary Dx) Start: 05-20-2025 End: 05-22-2025 [facility] [place] Start: 05-20-2025 End: 05-22-2025 Evaluation and management of inpatient Jacoby Sanders DO Work Phone: [facility] Medical Surgical Unit [facility] 4S Comment on above: Dizziness (Primary D x) Start: 05-20-2025 End: 05-20-2025 Subsequent hospital visit by physician [facility] Non-Invasive Cardiology Comment on above: Arrived Start: 05-20-2025 End: 05-20-2025 Emergency department patient visit [facility] Start: 12-20-2024 End: 12-20-2024 Emergency department patient visit Cydney Cantu DO Work Phone: [facility] ED Comment on above: Sinusitis, unspecifi ed chronicity, unspecified location (Primary Dx); Vertigo Start: 08-28-2021 End: 08-28-2021 Subsequent hospital visit by physician Laquita Ding DO Work Phone: [facility] Comment on above: Arrived Start: 08-18-2021 End: 08-18-2021 Subsequent hospital visit by physician Laquita Ding DO Work Phone: [facility] Start: 08-11-2021 End: 08-11-2021 Subsequent hospital visit by physician Laquita Ding DO Work Phone: [facility] Start: 08-09-2021 End: 08-09-2021 Subsequent hospital visit by physician Laquita Ding DO Work Phone: [facility] Start: 08-04-2021 End: 08-04-2021 Subsequent hospital visit by physician Laquita Ding DO Work Phone: [facility] Start: 08-02-2021 End: 08-02-2021 Subsequent hospital visit by physician Laquita Ding DO Work Phone: [facility] Start: 07-28-2021 End: 07-28-2021 Subsequent hospital visit by physician Laquita Ding DO Work Phone: [facility] Start: 07-26-2021 End: 07-26-2021 Subsequent hospital visit by physician Laquita Ding DO Work Phone: [facility] Start: 07-23-2021 End: 07-23-2021 Subsequent hospital visit by physician Laquita Ding DO Work Phone: [facility] Start: 04-06-2021 End: 04-06-2021 Subsequent hospital visit by physician Carolina Francois MD Work Phone: [facility] Radiology Comment on above: Pneumonia due to COV ID-19 virus Start: 12-09-2020 End: 12-09-2020 Subsequent hospital visit by physician Venkat Grant Work Phone: [facility] ECHO Comment on above: Supraventricular tac hycardia (HCC); SVT (supraventricular tachycardia) (HCC) Pneumonia due to COV ID-19 virus Start: 10-19-2020 End: 11-04-2020 Evaluation and management of inpatient Candelario Lomeli Work Phone: [facility] 2E TELEMETRY Comment on above: Pneumonia due to COV ID-19 virus (Primary Dx); Elevated troponin Start: 10-16-2020 End: 10-16-2020 Emergency department patient visit Fransisco Lopez Work Phone: [facility] Comment on above: Cough (Primary Dx); COVID-19 Start: 12-20-2019 End: 12-20-2019 Subsequent hospital visit by physician Laquita Ding Work Phone: [facility] Comment on above: Arrived Start: 06-05-2019 End: 06-05-2019 Subsequent hospital visit by physician Laquita Ding Work Phone: [facility] Vascular Lab Comment on above: Arrived Procedures Date Procedure Procedure Detail Performing Clinician Start: 07-04-2025 Estimated creatinine clearance LAQUITA DING Work Phone: Start: 06-09-2025 ED LACERATION REPAIR Riley Carcamo DO Work Phone: Start: 05-22-2025 Lipid 1996 panel - Serum or Plasma Jacoby Glozman DO Work Phone: Start: 05-22-2025 Comprehensive metabolic panel José Antonio Woodruff MD Work Phone: Start: 05-22-2025 Lipid panel José Antonio Woodruff MD Work Phone: Start: 05-21-2025 End: 05-21-2025 Mra head w/o contrst material Maggi Coelho [employer] Work Phone: Start: 05-21-2025 Assay of troponin quantitative Jacoby Glozman DO Work Phone: Start: 05-21-2025 Ct head/brain w/o contrast material Jacoby Glozman DO Work Phone: Start: 05-21-2025 Comprehensive metabolic panel Jacoby Glozman DO Work Phone: Start: 05-20-2025 Radiologic exam chest single view Jacoby Glozman DO Work Phone: Start: 05-20-2025 Ecg routine ecg w/least 12 lds trcg only w/o i&r Jacoby Glozman DO Work Phone: Start: 12-20-2024 Assay of troponin quantitative Cydney Cantu DO Work Phone: Start: 12-20-2024 Ct angiography head w/contrast/noncontrast Cydney Alondra DO Work Phone: Start: 12-20-2024 Ct head/brain w/o contrast material Cydney Alondra DO Work Phone: Start: 12-20-2024 Basic metabolic panel calcium total Cydney Cantu DO Work Phone: Start: 12-20-2024 Radiologic exam chest single view Cydney Cantu DO Work Phone: Start: 12-20-2024 Ecg routine ecg w/least 12 lds i&r only Cydney Cantu DO Work Phone: Start: 04-06-2021 Radiologic exam chest 2 views Carolina Francois MD Work Phone: Start: 12-09-2020 Echo tthrc r-t 2d w/wom-mode compl spec&colr d Eve P Lute Work Phone: Start: 12-09-2020 Radiologic exam chest 2 views Carolina Francois Work Phone: Start: 11-04-2020 Assay of ferritin Jerardo Conteh Work Phone: Start: 11-04-2020 Assay of magnesium Jerardo Conteh Work Phone: Start: 11-04-2020 Assay of phosphorus inorganic Jerardo Conteh Work Phone: Start: 11-04-2020 Basic metabolic panel calcium total Jerardo Conteh Work Phone: Start: 11-04-2020 Blood count complete automated Jerardo Conteh Work Phone: Start: 11-04-2020 Calcium ionized Jerardo Conteh Work Phone: Start: 11-04-2020 Fibrin dgradj products d-dimer quantitative Jerardo Conteh Work Phone: Start: 11-04-2020 Hepatic function panel Jerardo Conteh Work Phone: Start: 11-03-2020 Assay of magnesium Jerardo Conteh Work Phone: Start: 11-03-2020 Assay of phosphorus inorganic Jerardo Conteh Work Phone: Start: 11-03-2020 Basic metabolic panel calcium total Jerardo Conteh Work Phone: Start: 11-03-2020 Blood count complete automated Jerardo Conteh Work Phone: Start: 11-03-2020 Calcium ionized Jerardo Conteh Work Phone: Start: 11-02-2020 Assay of ferritin Abiel Luke Work Phone: Start: 11-02-2020 Assay of magnesium Jerardo Conteh Work Phone: Start: 11-02-2020 Assay of phosphorus inorganic Jerardo Conteh Work Phone: Start: 11-02-2020 Blood count complete auto&auto difrntl wbc Abiel Luke Work Phone: Start: 11-02-2020 C-reactive protein Abiel Luke Work Phone: Start: 11-02-2020 Calcium ionized Jerardo Conteh Work Phone: Start: 11-02-2020 Fibrin dgradj products d-dimer quantitative Abiel Luke Work Phone: Start: 11-02-2020 Lactate dehydrogenase ldh Abiel Luke Work Phone: Start: 11-01-2020 Assay of ferritin Abiel Luke Work Phone: Start: 11-01-2020 Assay of magnesium Jerardo Conteh Work Phone: Start: 11-01-2020 Assay of phosphorus inorganic Jerardo Conteh Work Phone: Start: 11-01-2020 Blood count complete auto&auto difrntl wbc Abiel Luke Work Phone: Start: 11-01-2020 C-reactive protein Abiel Luke Work Phone: Start: 11-01-2020 Calcium ionized Jerardo Conteh Work Phone: Start: 11-01-2020 Fibrin dgradj products d-dimer quantitative Abiel Luke Work Phone: Start: 11-01-2020 Lactate dehydrogenase ldh Abiel Luke Work Phone: Start: 11-01-2020 Speech and language therapy regime Abiel Luke Work Phone: Start: 10-31-2020 EXTUBATION Demetria Alford Work Phone: Start: 10-31-2020 Radiologic exam chest single view Demetria Alford Work Phone: Start: 10-31-2020 POCT ARTERIAL Jerardo Green Work Phone: Start: 10-31-2020 Assay of ferritin Abiel Luke Work Phone: Start: 10-31-2020 Assay of magnesium Jerardo Conteh Work Phone: Start: 10-31-2020 Assay of phosphorus inorganic Jerardo Wero Work Phone: Start: 10-31-2020 Blood count complete auto&auto difrntl wbc Abiel Luke Work Phone: Start: 10-31-2020 C-reactive protein Abiel Luke Work Phone: Start: 10-31-2020 Calcium ionized Jerardo Conteh Work Phone: Start: 10-31-2020 Fibrin dgradj products d-dimer quantitative Abiel Luke Work Phone: Start: 10-31-2020 Lactate dehydrogenase ldh Abiel Luke Work Phone: Start: 10-30-2020 Assay of ferritin Abiel Luke Work Phone: Start: 10-30-2020 Assay of magnesium Jerardo Wero Work Phone: Start: 10-30-2020 Assay of phosphorus inorganic Jerardo Wero Work Phone: Start: 10-30-2020 Blood count complete auto&auto difrntl wbc Abiel Luke Work Phone: Start: 10-30-2020 C-reactive protein Abiel Luke Work Phone: Start: 10-30-2020 Calcium ionized Jerardo Conteh Work Phone: Start: 10-30-2020 Fibrin dgradj products d-dimer quantitative Abiel Luke Work Phone: Start: 10-30-2020 Lactate dehydrogenase ldh Abiel Luke Work Phone: Start: 10-30-2020 POCT ARTERIAL Jerardo Green Work Phone: Start: 10-29-2020 Radiologic exam chest single view Abiel Luke Work Phone: Start: 10-29-2020 POCT ARTERIAL Jerardo Green Work Phone: Start: 10-29-2020 Assay of ferritin Abiel Luke Work Phone: Start: 10-29-2020 Assay of magnesium Jerardo Wero Work Phone: Start: 10-29-2020 Assay of phosphorus inorganic Jerardo Wero Work Phone: Start: 10-29-2020 Blood count complete auto&auto difrntl wbc Abiel Luke Work Phone: Start: 10-29-2020 C-reactive protein Abiel Luke Work Phone: Start: 10-29-2020 Calcium ionized Jerardo Conteh Work Phone: Start: 10-29-2020 Fibrin dgradj products d-dimer quantitative Abiel Luke Work Phone: Start: 10-29-2020 Lactate dehydrogenase ldh Abiel Luke Work Phone: Start: 10-28-2020 Assay of ferritin Abiel Luke Work Phone: Start: 10-28-2020 Assay of magnesium Jerardo Conteh Work Phone: Start: 10-28-2020 Assay of phosphorus inorganic Jerardo Conteh Work Phone: Start: 10-28-2020 C-reactive protein Abiel Luke Work Phone: Start: 10-28-2020 Lactate dehydrogenase ldh Abiel Luke Work Phone: Start: 10-28-2020 POCT ARTERIAL Jerardo Green Work Phone: Start: 10-28-2020 End: 10-28-2020 Blood count complete auto&auto difrntl wbc Abiel Luke Work Phone: Start: 10-28-2020 Calcium ionized Jerardo Conteh Work Phone: Start: 10-28-2020 Fibrin dgradj products d-dimer quantitative Abiel Luke Work Phone: Start: 10-27-2020 Radiologic exam chest single view Demetria Alford Work Phone: Start: 10-27-2020 POCT ARTERIAL Jerardo Green Work Phone: Start: 10-27-2020 Assay of ferritin Abiel Luke Work Phone: Start: 10-27-2020 Assay of magnesium Jerardo Conteh Work Phone: Start: 10-27-2020 Assay of phosphorus inorganic Jerardo Conteh Work Phone: Start: 10-27-2020 Blood count complete auto&auto difrntl wbc Abiel Luke Work Phone: Start: 10-27-2020 C-reactive protein Abiel Luke Work Phone: Start: 10-27-2020 Calcium ionized Jerardo Conteh Work Phone: Start: 10-27-2020 Fibrin dgradj products d-dimer quantitative Abiel Luke Work Phone: Start: 10-27-2020 Lactate dehydrogenase ldh Abiel Luke Work Phone: Start: 10-27-2020 Procalcitonin (pct) Demetria Alford Work Phone: Start: 10-26-2020 POCT ARTERIAL Jerardo Jordanio Work Phone: Start: 10-26-2020 Assay of ferritin Abiel Luke Work Phone: Start: 10-26-2020 Assay of magnesium Jerardo Conteh Work Phone: Start: 10-26-2020 Assay of phosphorus inorganic Jerardo Riosler Work Phone: Start: 10-26-2020 Blood count complete auto&auto difrntl wbc Abiel Luke Work Phone: Start: 10-26-2020 C-reactive protein Abiel Luke Work Phone: Start: 10-26-2020 Calcium ionized Jerardo Conteh Work Phone: Start: 10-26-2020 Fibrin dgradj products d-dimer quantitative Abiel Luke Work Phone: Start: 10-26-2020 Lactate dehydrogenase ldh Abiel Luke Work Phone: Start: 10-25-2020 POCT ARTERIAL Jerardo Jordanio Work Phone: Start: 10-25-2020 POCT ARTERIAL Jerardo Julianio Work Phone: Start: 10-25-2020 Assay of ferritin Abiel Luke Work Phone: Start: 10-25-2020 Assay of magnesium Jerardo Conteh Work Phone: Start: 10-25-2020 Assay of phosphorus inorganic Jerardo Conteh Work Phone: Start: 10-25-2020 Blood count complete auto&auto difrntl wbc Abiel Luke Work Phone: Start: 10-25-2020 C-reactive protein Abiel Luke Work Phone: Start: 10-25-2020 Calcium ionized Jerardo Conteh Work Phone: Start: 10-25-2020 Fibrin dgradj products d-dimer quantitative Abiel Luke Work Phone: Start: 10-25-2020 Lactate dehydrogenase ldh Abiel Luke Work Phone: Start: 10-25-2020 POCT ARTERIAL Jerardo Green Work Phone: Start: 10-24-2020 Smr prim src gram/giemsa stain bct fungi/cell Pilar Acierno Work Phone: Start: 10-24-2020 Virus centrifuge enhncd id imfluor stain ea Pilar Acierno Work Phone: Start: 10-24-2020 POCT ARTERIAL Jerardo Green Work Phone: Start: 10-24-2020 Dup-scan xtr veins complete bilateral study Issa Conteh Work Phone: Start: 10-24-2020 POCT ARTERIAL Jerardo Green Work Phone: Start: 10-24-2020 Basic metabolic panel calcium total Issa Conteh Work Phone: Start: 10-24-2020 POCT ARTERIAL Candelario Lomeli Work Phone: Start: 10-24-2020 ADD ON LAB TEST Issa Conteh Work Phone: Start: 10-24-2020 Assay of ferritin Abiel Luke Work Phone: Start: 10-24-2020 Assay of magnesium Jerardo Riosler Work Phone: Start: 10-24-2020 Assay of phosphorus inorganic Jerardo Conteh Work Phone: Start: 10-24-2020 Blood count complete auto&auto difrntl wbc Abiel Luke Work Phone: Start: 10-24-2020 C-reactive protein Abiel Bettina Luke Work Phone: Start: 10-24-2020 Calcium ionized Jerardo Wero Work Phone: Start: 10-24-2020 Fibrin dgradj products d-dimer quantitative Abielmarco Luke Work Phone: Start: 10-24-2020 Lactate dehydrogenase ldh Abiel Luke Work Phone: Start: 10-24-2020 Procalcitonin (pct) Abiel Luke Work Phone: Start: 10-24-2020 Radiologic exam chest single view Pilar Gomez Work Phone: Start: 10-24-2020 End: 10-24-2020 Radiologic exam chest single view Issa Conteh Work Phone: Start: 10-23-2020 Assay of ferritin Abiel Luke Work Phone: Start: 10-23-2020 Assay of magnesium Jerardo Conteh Work Phone: Start: 10-23-2020 Assay of phosphorus inorganic Jerardo Conteh Work Phone: Start: 10-23-2020 Blood count complete auto&auto difrntl wbc Abiel Luke Work Phone: Start: 10-23-2020 C-reactive protein Abiel Luke Work Phone: Start: 10-23-2020 Fibrin dgradj products d-dimer quantitative Abile Luke Work Phone: Start: 10-23-2020 Lactate dehydrogenase ldh Abiel Luke Work Phone: Start: 10-22-2020 Assay of ferritin Abiel Luke Work Phone: Start: 10-22-2020 Assay of magnesium Jerardo Conteh Work Phone: Start: 10-22-2020 Assay of phosphorus inorganic Jerardo Conteh Work Phone: Start: 10-22-2020 Blood count complete auto&auto difrntl wbc Abiel Luke Work Phone: Start: 10-22-2020 C-reactive protein Abiel Luke Work Phone: Start: 10-22-2020 Fibrin dgradj products d-dimer quantitative Abiel Luke Work Phone: Start: 10-22-2020 Lactate dehydrogenase ldh Abiel Luke Work Phone: Start: 10-21-2020 Assay of ferritin Abiel Luke Work Phone: Start: 10-21-2020 Assay of magnesium Jerardo Conteh Work Phone: Start: 10-21-2020 Assay of phosphorus inorganic Jerardo Conteh Work Phone: Start: 10-21-2020 Blood count complete auto&auto difrntl wbc Abiel Luke Work Phone: Start: 10-21-2020 C-reactive protein Abiel Luke Work Phone: Start: 10-21-2020 Fibrin dgradj products d-dimer quantitative Abiel Luke Work Phone: Start: 10-21-2020 Lactate dehydrogenase ldh Abiel Luke Work Phone: Start: 10-20-2020 ADD ON LAB TEST Jerardo Conteh Work Phone: Start: 10-20-2020 25 hydroxy includes fractions if performed Abiel Luke Work Phone: Start: 10-20-2020 Assay of ferritin Abiel Luke Work Phone: Start: 10-20-2020 Assay of magnesium Jerardo Conteh Work Phone: Start: 10-20-2020 Assay of phosphorus inorganic Jerardo Conteh Work Phone: Start: 10-20-2020 Blood count complete auto&auto difrntl wbc Abiel Luke Work Phone: Start: 10-20-2020 C-reactive protein Abiel Luke Work Phone: Start: 10-20-2020 Fibrin dgradj products d-dimer quantitative Abiel Luke Work Phone: Start: 10-20-2020 Lactate dehydrogenase ldh Abiel Luke Work Phone: Start: 10-20-2020 Procalcitonin (pct) Jerardo Green Work Phone: Start: 10-20-2020 RESPIRATORY CARE EVALUATION ONLY Abiel Luke Work Phone: Start: 10-20-2020 POCT ARTERIAL Jerardo Green Work Phone: Start: 10-19-2020 Assay of troponin quantitative Jerardo Green Work Phone: Start: 10-19-2020 Ct angiography chest w/contrast/noncontrast Jerardo Green Work Phone: Start: 10-19-2020 Assay of troponin quantitative Jerardo Green Work Phone: Start: 10-19-2020 Assay of troponin quantitative Jerardo Green Work Phone: Start: 10-19-2020 Radiologic exam chest single view Candelario Lomeli Work Phone: Start: 10-19-2020 Assay of troponin quantitative Candelario Lomeli Work Phone: Start: 10-19-2020 Blood count complete auto&auto difrntl wbc Candelario Lomeli Work Phone: Start: 10-19-2020 Comprehensive metabolic panel Candelario Lomeli Work Phone: Start: 10-19-2020 Ecg routine ecg w/least 12 lds w/i&r Candelario Lomeli Work Phone: Start: 10-16-2020 Assay of troponin quantitative Fransisco Lopez Work Phone: Start: 10-16-2020 Basic metabolic panel calcium total Fransisco Lopez Work Phone: Start: 10-16-2020 Blood count complete auto&auto difrntl wbc Fransisco Lopez Work Phone: Start: 10-16-2020 Radiologic exam chest single view Fransisco Lopez Work Phone: Start: 10-16-2020 Ecg routine ecg w/least 12 lds w/i&r Fransisco Lopez Work Phone: Start: 12-20-2019 EMG REPORT William Correia Work Phone: Start: 06-05-2019 Us abdominal aorta real time screen study aaa Laquita Ding Work Phone: History of excision of lamina of lumbar vertebra for decompression of spinal cord History of lumbar laminectomy for spinal cord decompression LAQUITA DING Work Phone: Plan of Treatment Date Care Activity Detail Author Start: 06-09-2035 DTaP/Tdap/Td Vaccine s (4 - Td or Tdap) DTaP/Tdap/Td Vaccines (4 - Td or Tdap) [facility] Start: 05-22-2030 Lipid panel Lipid Panel [facility] Start: 08-06-2027 DTaP/Tdap/Td vaccine (2 - Td) DTaP/Tdap/Td vaccine (2 - Td) [place] Start: 08-06-2027 DTaP/Tdap/Td vaccine (3 - Td or Tdap) DTaP/Tdap/Td vaccine (3 - Td or Tdap) [facility] Start: 08-06-2027 DTaP/Tdap/Td vaccine (3 - Td) DTaP/Tdap/Td vaccine (3 - Td) [place] Start: 08-06-2027 DTaP/Tdap/Td Vaccine s (3 - Td or Tdap) DTaP/Tdap/Td Vaccines (3 - Td or Tdap) [facility] Start: 05-22-2026 Creatinine measurement Creatinine Le krishna [facility] Start: 05-22-2026 Diabetes mellitus screening Diabetes Screening [facility] Start: 05-22-2026 Potassium measurement Potassium Leve l [facility] Start: 07-04-2025 [facility] Start: 06-16-2025 COVID-19 Vaccine ( season) COVID-19 Vaccine ( season) [facility] Start: 06-16-2025 Influenza vaccination Influenza Vacc ine (#1) [facility] Start: 06-16-2024 COVID-19 Vaccine ( season) COVID-19 Vaccine ( season) [facility] Start: 06-16-2024 Influenza vaccination Influenza Vacc ine (#1) [facility] Start: 08-08-2022 Lipid panel Lipid screen [place] Start: 08-08-2022 Lipid screen Lipid screen [place] Start: 11-04-2021 Creatinine measurement Creatinine mo nitoring [facility] Start: 11-04-2021 Potassium monitoring Potassium monit oring [facility] Start: 09-22-2021 End: 09-22-2021 Patient encounter procedure [facility] Start: 06-24-2021 Screening for malign ant neoplasm of colon [facility] Start: 06-16-2021 Influenza vaccination Flu vaccine (# 1) [facility] Work Phone: Start: 04-07-2021 End: 04-07-2021 Patient encounter procedure 04/07/2021 Office Visit Pulmonology Carolina Francois MD [address] [place] [address] [facility] Start: 02-23-2021 End: 02-23-2021 Office Visit 02/23/2021 Office Visit Pulmonology Carolina Francois MD [address] [place] [address] [facility] Start: 12-22-2020 COVID-19 Vaccine (2 of 2 - Moderna series) COVID-19 Vaccine (2 of 2 - Moderna series) [facility] Work Phone: Start: 06-16-2020 Influenza vaccination Flu vaccine (# 1) [place] Start: 10-20-2019 Annual Wellness Visi t (AWV) Annual Wellness Visit (AWV) [facility] Start: 06-16-2019 Influenza vaccination Flu vaccine (# 1) [place] Start: 2018 Pneumococcal 65+ yea rs Vaccine (1 of 2 - PCV13) Pneumococcal 65+ years Vaccine (1 of 2 - PCV13) [place] Start: 2018 Pneumococcal 65+ yea rs Vaccine (2 of 2 - PPSV23) Pneumococcal 65+ years Vaccine (2 of 2 - PPSV23) [place] Start: 08-08-2018 Lipid panel Lipid screen [facility] Start: 2013 RSV Immunization for Adults (1 - Risk 60-74 years 1-dose series) RSV Immunization for Adults (1 - Risk 60-74 years 1-dose series) [facility] Start: 2003 Colon cancer screen colonoscopy Colon cancer screen colonoscopy [place] Start: 2003 Screening for malign ant neoplasm of colon Colon cancer screen colonoscopy [place] Start: 2003 Shingles Vaccine (1 of 2) Sexton gles Vaccine (1 of 2) [facility] Start: 2003 Zoster Vaccines (1 of 2) Zoste r Vaccines (1 of 2) [facility] Start: 1998 Screening for malign ant neoplasm of colon Colon cancer screen colonoscopy [facility] Start: 1993 Diabetes screen Diabetes screen [facility] Start: 1971 Diabetes mellitus screening Diabetes Screening [facility] Start: 1971 Hepatitis C screening Hepatitis C Sc reening [facility] Start: 1968 HIV screen HIV screen [place], [place] Start: 1965 COVID-19 Vaccine (1) COVID-19 Vaccin e (1) [facility] Start: 1965 Depression Screening Depression Scre ening [facility] Start: 1953 Echocardiography Echocardiogram [facility] Start: 1953 Hepatitis C screen Hepatitis C scree n [place] Start: 1953 Hepatitis C screening Hepatitis C sc reen [facility] Start: 1953 Lipid panel Lipid Panel [facility] Start: 1953 Screening for malign ant neoplasm of colon [facility] Basic metabolic 2000 panel Basic Metabolic Panel Lab Routine Daily until discontinued starting 11/03/2020, 2 completed [place] Comment on above: Daily until disconti nued starting 11/03/2020, 2 completed Calcium, Ionized Calcium, Ionize d Lab Routine Daily until discontinued starting 10/24/2020, 12 completed [place] Comment on above: Daily until disconti nued starting 10/24/2020, 12 completed CBC CBC Lab Routine Daily until discontinued starting 11/03/2020, 2 [facility] Comment on above: Daily until disconti nued starting 11/03/2020, 2 completed D-Dimer, Quantitative D-Dimer, Q uantitative Lab Routine Every MWF at 4 AM (BMT lab orders) until discontinued starting 11/04/2020, 1 completed [facility] Comment on above: Every MWF at 4 AM (B MT lab orders) until discontinued starting 11/04/2020, 1 completed EKG 12 Lead - Chest Pain EKG 12 Lead - Chest Pain ECG STAT 10/16/2020 8:11 AM EST [facility] Ferritin [Mass/Vol] Ferritin Lab Routine Every MWF at 4 AM (BMT lab orders) until discontinued starting 11/04/2020 [facility] Comment on above: Every MWF at 4 AM (B MT lab orders) until discontinued starting 11/04/2020 Hepatic Function Panel Hepatic F unction Panel Lab Routine Every MWF at 4 AM (BMT lab orders) until discontinued starting 11/04/2020 [facility] Comment on above: Every MWF at 4 AM (B MT lab orders) until discontinued starting 11/04/2020 Laceration Repair Laceration Rep air Procedures Routine 06/09/2025 3:45 PM EDT [facility] Work Phone: Magnesium [Mass/Vol] Magnesium L ab Routine Daily until discontinued starting 10/20/2020, 16 completed [facility] Comment on above: Daily until disconti nued starting 10/20/2020, 16 completed End: 08-28-2021 MRI LUMBAR SPINE WO CONTRAST [facility] Work Phone: Comment on above: Once for 1 Occurrenc es starting 08/28/2021 until 08/28/2021 Nebulizer therapy Nebulizer tx intermittent Respiratory Care Routine (respiratory use only) until discontinued starting 11/02/2020 [facility] Comment on above: (respirato ry use only) until discontinued starting 11/02/2020 Oxygen therapy [[facility] Data Set] Initiate Oxygen Therapy Protocol Respiratory Care Routine Daily until discontinued starting 10/20/2020 [facility] Comment on above: Daily until disconti nued starting 10/20/2020 Patient Education ED Fainting, V agal Reaction ED Fainting, Uncertain Cause [facility] Work Phone: Phosphate [Mass/Vol] Phosphorus Lab Routine Daily until discontinued starting 10/20/2020, 16 completed [place] Comment on above: Daily until disconti nued starting 10/20/2020, 16 completed Immunizations Immunization Date Immunization Notes Care Provider Sheri noonan 06-09-2025 tetanus toxoid, redu krys diphtheria toxoid, and acellular pertussis vaccine, adsorbed Marjorie Sears MD Work Phone: [facility] 08-23-2022 influenza virus vaccine, unspecified formulation [employer] DO Work Phone: [facility] 07-19-2021 influenza, injectabl e, quadrivalent, preservative free LAQUITA DING Work Phone: [facility] 12-25-2020 Moderna SARS-CoV-2 Vaccination [employer] Work Phone: [facility] 11-24-2020 Moderna SARS-CoV-2 Vaccination [employer] DO Work Phone: [facility] 08-06-2017 tetanus toxoid, redu krys diphtheria toxoid, and acellular pertussis vaccine, adsorbed Laquita Ding [facility] Work Phone: Payers Date Payer Category Payer Self-pay 2021 Medicare supplementa l policy (as second payer) [facility] [id number] 2020 Private Health Insurance [facility] [id number] 2019 Medicare MEDICARE RAILROA D MEDICARE xxxxxxxxxxx 2019-Present [phone] [place] [address] xxxxxxxxxxx [id number] 2019 Medicare RAILROAD MEDICAR E [id number] 2019 Medicare [id number] 2015 Unknown BCBS [place] - [place] P PO xxxxxxxxxxxx 2015-Present [address] [place] [address] xxxxxxxxxxxx [id number] Unknown [id number] Unknown [id number] Unknown [id number] Social History Date Type Detail Facility Start: 09-12-2017 End: 07-04-2025 Tobacco smoking status NHIS [facility] End: 10-16-1982 History of tobacco use Current [place]oker [place] Start: 09-12-2017 End: 05-21-2025 Cigarettes smoked current (pack per day) - Reported [place] Start: 09-12-2017 End: 06-09-2025 Alcohol intake Current non-drinker of alcohol (finding) [place] Start: 1955 Sex Assigned At Not on file M [place], [place] Start: 08-06-2017 End: 10-16-2020 Tobacco use and exposure Former user [place] End: 10-16-1981 History of tobacco use User of smokeless tobacco [place] Exposure to SARS-CoV -2 (event) Not sure [place] Start: 09-12-2017 End: 05-21-2025 Alcohol intake No [place] End: 10-16-1982 History of tobacco use Cigarette Smoker [employer] How often to you hav e a drink containing alcohol? Never [facility] How many standard drinks containing alcohol do you have on a typical day? Patient does not drink [employer] Start: 05-16-2022 Sex Male (finding) Antoine He alth Has the [employer], [employer], oil, or water company threatened to shut off services in your home in past 12Mo No [employer] (I/We) worried lara lujan (my/our) food would run out before (I/we) got money to buy more. Never true [employer] Start: 1955 Sex Assigned At Male [facility] Medical Equipment Procedure Code Equipment Code Equipment Origin al Text Equipment Identifier Dates ALLOGRAFT FDA Start: 11-25-2021 SCREW FDA Start: 11-25-2021 SCREW FDA Start: 11-25-2021 SEALANT,FLOSEAL HEMOSTATIC 5ML FDA Start: 11-25-2021 SEALANT,TISSEEL 2ML FDA Start : 11-25-2021 SEALANT,TISSEEL 2ML FDA Start : 11-25-2021 SET SCREWS FDA Start: 11-25-2021 SET SCREWS FDA Start: 11-25-2021 SET SCREWS FDA Start: 11-25-2021 SET SCREWS FDA Start: 11-25-2021 SET SCREWS FDA Start: 11-25-2021 ALLOGRAFT FDA Start: 11-25-2021 SET SCREWS FDA Start: 11-25-2021 TALOS P-PEEK IBFD FDA Start: 11-25-2021 DBM BONE PUTTY FDA Start: 11-25-2021 DRESSING,FIBRILL AR 1X2 1960 FDA Start: 11-25-2021 DRESSING,FIBRILL AR 1X2 1960 FDA Start: 11-25-2021 DRESSING,FIBRILL AR 1X2 1960 FDA Start: 11-25-2021 DRESSING,FIBRILL AR 1X2 1960 FDA Start: 11-25-2021 DURAGEN PLUS 1x3 FDA Start: 11-25-2021 JAYDON FDA Start: 11-25-2021 ALLOGRAFT FDA Start: 11-25-2021 SCREW FDA Start: 11-25-2021 SCREW FDA Start: 11-25-2021 SEALANT,FLOSEAL HEMOSTATIC 5ML FDA Start: 11-25-2021 SEALANT,TISSEEL 2ML FDA Start : 11-25-2021 SEALANT,TISSEEL 2ML FDA Start : 11-25-2021 SET SCREWS FDA Start: 11-25-2021 SET SCREWS FDA Start: 11-25-2021 SET SCREWS FDA Start: 11-25-2021 SET SCREWS FDA Start: 11-25-2021 SET SCREWS FDA Start: 11-25-2021 ALLOGRAFT FDA Start: 11-25-2021 SET SCREWS FDA Start: 11-25-2021 TALOS P-PEEK IBFD FDA Start: 11-25-2021 DBM BONE PUTTY FDA Start: 11-25-2021 DRESSING,FIBRILL AR 1X2 1 FDA Start: 11-25-2021 DRESSING,FIBRILL AR 1X2 1960 FDA Start: 11-25-2021 DRESSING,FIBRILL AR 1X2 1960 FDA Start: 11-25-2021 DRESSING,FIBRILL AR 1X2 1960 FDA Start: 11-25-2021 DURAGEN PLUS 1x3 FDA Start: 11-25-2021 JAYDON FDA Start: 11-25-2021 ALLOGRAFT FDA Start: 11-25-2021 SCREW FDA Start: 11-25-2021 SCREW FDA Start: 11-25-2021 SEALANT,FLOSEAL HEMOSTATIC 5ML FDA Start: 11-25-2021 SEALANT,TISSEEL 2ML FDA Start : 11-25-2021 SEALANT,TISSEEL 2ML FDA Start : 11-25-2021 SET SCREWS FDA Start: 11-25-2021 SET SCREWS FDA Start: 11-25-2021 SET SCREWS FDA Start: 11-25-2021 SET SCREWS FDA Start: 11-25-2021 SET SCREWS FDA Start: 11-25-2021 ALLOGRAFT FDA Start: 11-25-2021 SET SCREWS FDA Start: 11-25-2021 TALOS P-PEEK IBFD FDA Start: 11-25-2021 DBM BONE PUTTY FDA Start: 11-25-2021 DRESSING,FIBRILL AR 1X2 1960 FDA Start: 11-25-2021 DRESSING,FIBRILL AR 1X2 1960 FDA Start: 11-25-2021 DRESSING,FIBRILL AR 1X2 1960 FDA Start: 11-25-2021 DRESSING,FIBRILL AR 1X2 1960 FDA Start: 11-25-2021 DURAGEN PLUS 1x3 FDA Start: 11-25-2021 JAYDON FDA Start: 11-25-2021 Functional Status Date Assessment Result Facility 06-09-2025 Total score [AUDIT-C] 0 06/09/20 3:04 PM EDT Taryn Moon, RN [facility] Mental Status Date Assessment Result Facility 07-04-2025 Cognitive function Level Of Consciousness Awake [facility] Work Phone: Clinical Notes 12-20-2024 to 08-13-2025 Telephone Encounter - Kim Downing RN - 08/13/2025 4:10 PM EDTTelephone Encounter - Kim Downing RN - 08/13/2025 4:10 PM EDTDischarge InstructionsAttachmentsDischarge InstructionsAttachments Note Date & Type Note Facility 08-13-2025 Telephone encounter Note Form atting of this note might be different from the original. S: Patient spoke with [facility] nurse regarding boil B: Onset of symptoms/concern 1 week A: Patient reports a boil on his hip that is bigger than a quarter with pus colored center. Denies fevers. Requesting appointment for tomorrow. R: no openings tomorrow that I am able to schedule-advised patient that message would be forwarded to provider /office and that he could try calling back in the morning. Discussed warm compresses and otc pain relievers. Patient understands care advice. No further needs at this time. Patient instructed to call back with new or worsening symptoms. Reason for Disposition Boil > 2 inches across (> 5 cm; larger than a golf ball or ping pong ball) Protocols used: Boil (Skin Abscess)-ADULT-AH [facility] 08-13-2025 Miscellaneous Notes Formattin g of this note might be different from the original. S: Patient spoke with [facility] nurse regarding boil B: Onset of symptoms/concern 1 week A: Patient reports a boil on his hip that is bigger than a quarter with pus colored center. Denies fevers. Requesting appointment for tomorrow. R: no openings tomorrow that I am able to schedule-advised patient that message would be forwarded to provider /office and that he could try calling back in the morning. Discussed warm compresses and otc pain relievers. Patient understands care advice. No further needs at this time. Patient instructed to call back with new or worsening symptoms. Reason for Disposition Boil > 2 inches across (> 5 cm; larger than a golf ball or ping pong ball) Protocols used: Boil (Skin Abscess)-ADULT- documented in this encounter [facility] 07-04-2025 Discharge summary [facility] 06-09-2025 Hospital Discharge instructions Riley Carcamo DO - 06/09/2025 3:59 PM EDT You were seen for a laceration on your right thumb and treated with stitches. Please have stitches removed at your next followup appointment on June 19. Return to the ER should you develop fevers, chills, redness or drainage around your wound. The following attachments cannot be sent through Care Everywhere.Laceration Repair With Stitches ED (Angolan)documented in this encounter [facility] 06-09-2025 Note Procedure Laceration Repair Performed by: Riley Carcamo DO Authorized by: Marjorie Sears MD Consent: Consent obtained: Verbal Consent given by: Patient Risks, benefits, and alternatives were discussed: yes Risks discussed: Infection, pain and need for additional repair [place] protocol: Procedure explained and questions answered to [...] Tolerated Riley Carcamo DO Resident 06/09/25 1612 [facility] 06-09-2025 Emergency department Note EMERGENCY DEPARTMENT [...] PPE for the entirety of this encounter. [facility] Joseph Brown is a 69 y.o. male [...] SYSTEMS Pertinent Positive and Negatives listed in [facility] PAST MEDICAL HISTORY Medical History[1] SURGICAL HISTORY [...] Family History[3] SOCIAL HISTORY Social History[4] SCREENINGS [place] Coma Scale Best Eye Response: Spontaneous Best [...] 06/09/2025 4:09 PM EDT Emergency Department Encounter [facility] ED Patient: Joseph Brown : 1955 Date [...] for clarification.) Marjorie Sears MD Acute Care [facility] Marjorie Sears MD 06/09/25 1535 documented in this encounter [facility] 06-09-2025 Physician Emergency department Note EMERGENCY DEPARTMENT ENCOUNTER Pt [...] Family History[3] SOCIAL HISTORY Social History[4] SCREENINGS [place] Coma Scale Best Eye Response: Spontaneous Best [...] Sears MD at 06/09/2025 4:09 PM EDT [facility] 06-09-2025 Physician Emergency department Note Emergency Department Encounter [facility] ED Patient: Joseph Brown : 1955 Date [...] clarification.) Marjorie Sears MD [employer] Marjorei Sears MD 06/09/[address] [facility] Phone: 05-22-2025 Nurse Note Pt given and educated on discharge instructions. Pt and family have no questions at this time. IV removed. Pt discharged to private vehicle. [facility] 05-22-2025 Nurse Note Pt given and educated on discharge instructions. Pt and family have no questions at this time. IV removed. Pt discharged to private vehicle. documented in this encounter [facility] 05-22-2025 Note Hospitalist Discharg e Summary Joseph [...] Narrative: [facility] 1955 [id number] Ex[facility] Date/Time: 05/21/2025 16:00 Procedure: MR HEAD [...] basilar and proximal posterior cerebral arteries. Right CORRESPONDENCE COORDINATOR derives major contribution from anterior circulation consistent [...] Narrative: Patient Name: JOSEPH BROWN : 1955 Exam [...] including possible sinona (more content not included)... [facility] 05-22-2025 Hospital course Narrative Hospitalist Discharge [...] Narrative: [facility]: [facility]PH [facility] 1955 [id number] Exam Date/Time: 05/21/2025 16:00 Procedure: MR HEAD [...] basilar and proximal posterior cerebral arteries. Right CORRESPONDENCE COORDINATOR derives major contribution from anterior circulation consistent [...] Narrative: Patient Name: JOSEPH BROWN : 1955 [facility]#: [id number] Exam Date/Time: 05/21/2025 16:00 Procedure: MR NECK [...] basilar and proximal posterior cerebral arteries. Right CORRESPONDENCE COORDINATOR derives major contribution from anterior circulation consistent [...] Narrative: Patient Name: JOSEPH BROWN : 1955 [facility]#: [id number] Exam Date/Time: 05/21/2025 16:00 Procedure: MR BRAIN [...] basilar and proximal posterior cerebral arteries. Right CORRESPONDENCE COORDINATOR derives major contribution from anterior circulation consistent [...] Narrative: Patient [facility]: [facility]SEPH [facility]OWN : 1955 [id number] Exam Date/Time: 05/21/2025 00:21 Procedure: CT HEAD [...] Your Medications These medications were sent to [facility]/pharmacy #[id number] - [facility] [address] [facility] [address] [facility] [address] [id number] amoxicillin-clavulanate 875-125 MG tablet fluticasone 50 MCG/ACT nasal spray Recommended Follow-up: Laquita Ding DO [address] [facility] [address] [facility] [address] Schedule an appointment as soon as possible for a visit in 1 week(s) for medical follow up for hospital ENT Schedule an appointment as soon as possible for a visit in 1 week(s) for medical follow up for hospital Complexity of Follow up: [] Moderate Complexity: follow up within 7-14 calendar days (52815) [x] Severe Complexity: follow up within 7 calendar days (32596) Follow up Testing, Pending results or Referrals [...] Signed: José Antonio Woodruff MD Division of Hospitalist Medicine Inpatient Medical Services/[facility] 05/22/2025, 6:21 PM [1] Past Medical History: Diagnosis Date Arthritis SVT (supraventricular tachycardia) (HCC) Syncope documented in this encounter [facility] 05-22-2025 Note PROGRESS NOTE. NEURO LOGY Patient Name:Joseph Brown Patient : 1955 Acct: [id number] Date of Admission: 05/20/2025 Room/Bed: B4454/B4454 A PCP: Laquita Ding DO Patient location [...] Weight: 106.6 kg General Physical Examination: [facility]. HEENT:Normocephalic, atraumaticl [...] CELL COUNT, GRA (more content not included)... [facility] 05-22-2025 History of Present illness Narrative PROGRESS NOTE. NEUROLOGY Patient Name:Joseph Brown Patient : 1955 Acct: [id number] Date of Admission: 05/20/2025 Room/Bed: [facility] A PCP: Laquita Ding DO Patient location [...] Oral, 2 times per day, José Antonio Woodruff MD aspirin EC tablet 81 mg, 81 mg, Oral, Daily, 81 mg at 05/22/25 0818 OR aspirin suppository 300 mg, 300 mg, Rectal, Daily, José Antonio Woodruff MD atorvastatin (Lipitor) tablet 40 mg, 40 mg, Oral, Daily, Julian Marmolejo MD, 40 mg at 05/22/2518 bisacodyl (Dulcolax) suppository 10 mg, 10 mg, Rectal, Daily PRN, José Antonio Woodruff MD enoxaparin (Lovenox) syringe 40 mg, 40 mg, SubCUTAneous, Daily, José Antonio Woodruff MD, 40 mg at 05/22/25 0818 fluticasone (Flonase) nasal spray 2 spray, 2 spray, Each Nostril, Daily, José Antonio Woodruff MD labetalol (Normodyne,Trandate) injection 10 mg, 10 mg, IntraVENous, q10 min PRN, José Antonio Woodruff MD meloxicam (Mobic) tablet 15 mg, 15 mg, Oral, Daily, Julian Marmolejo MD, 15 mg at 05/22/25 0818 ondansetron ODT (Zofran-ODT) disintegrating tablet 4 mg, 4 mg, Oral, q8h PRN OR ondansetron (Zofran) injection 4 mg, 4 mg, IntraVENous, q6h PRN, Julian Marmolejo MD polyethylene glycol (PEG) 3350 (Miralax) packet 17 g, 17 g, Oral, Daily PRN, José Antonio Woodruff MD [2] Images from the original note were not included. OCCUPATIONAL THERAPY [facility] Name/MRN: Joseph Brown ([id number]) Date: 05/22/2025 Therapy eval and treat orders received for if Elena < 100 and below baseline. Elena noted to be 100 this admission. Will discontinue orders at this time. Should pt demo a change in status, please reorder OT services. Mikie Chavira OT Images from the original note were not included. PHYSICAL THERAPY [facility] Name/MRN: Joseph Brown ([id number]) Date: 05/22/2025 Chart review completed, pt currently [...] original note were not included. OCCUPATIONAL THERAPY [facility] Name/MRN: Joseph Brown ([id number]) Date: 05/21/2025 Therapy eval and treat orders [...] original note were not included. PHYSICAL THERAPY [facility] Initial Evaluation Name/MRN: Joseph Brown ([id number]) Evaluation Date: 05/21/2025 Date of : 1955 Admission Date: 05/20/2025 11:16 PM Age: 69 y.o. Room/Bed: [facility] A Discharge Recommendation: Home independently Equipment Needed: [...] 09/22/2021 Chronic respiratory failure with hypoxia ([facility]) 11/24/2020 Acute deep vein thrombosis (DVT) of both lower extremities ([facility]) 11/04/2020 Essential hypertension 11/04/2020 Pneumonia due to COVID-19 virus 11/04/2020 BPH without obstruction/lower urinary tract symptoms 11/04/2020 SVT (supraventricular tachycardia) ([facility]) 11/04/2020 ARDS (adult respiratory distress syndrome) ([facility]) 10/24/2020 Syncope 09/12/2017 Epididymal cyst 01/25/2017 Medical [...] Responsibilities: Independent Receives Help From: None Active Cosmetic Chemist: Yes Prior Level of Function Prior Level [...] Raw Score (No Stairs) : 20 [facility] Score: Walked 250 ft or more (i.e. [...] of Care supervision is transferred to a [facility] Therapy Services Physical Therapist. Goals and/or treatment plan was established in collaboration with patient/family/other representatives. [1] Past Medical History: Diagnosis Date Arthritis SVT (supraventricular tachycardia) (HCC) Syncope [2] Past Surgical History: Procedure Laterality Date AMPUTATION fingers CHOLECYSTECTOMY documented in this encounter [facility] 05-22-2025 Note Care Management Prog ress Note Short Medical why still here: Patient remains on 4S today for complaints of dizziness/KENT. Neurology consulted to see. CT head/MRI brain complete. No acute findings/no significant stenosis. CT head showed some nasal polyps/MRI some paranasal sinus disease/polyposis. EKG SR. Swallow eval passed. Patient independent Planned Discharge Disposition: Home with spouse Barriers/Today we still Wait: Clinical stability, Private Equity Analyst recommendations (Neuro) Length of Stay (Days): 0 GMLOS: No GMLOS Documented [facility] 05-22-2025 Progress note Formatting of t [...] spouse Barriers/Today we still Wait: Clinical stability, Private Equity Analyst recommendations (Neuro) Length of Stay (Days): 0 GMLOS: No GMLOS Documented [facility] 05-22-2025 Hospital Discharge instructions Seema Lizarraga RN - 05/22/2025 7:07 [...] and the need for follow-up with a physician/EVALUATOR/PA after discharge. Seema Lizarraga RN on 05/22/25 [...] through Care Everywhere.Vertigo (a Type of Dizziness) (Angolan)documented in this encounter [facility] 05-22-2025 Note Speech-Cancer Registrar ology Patient passed the Nursing Swallowing Screening. As per stroke policy, no formal dysphagia evaluation is required. Completed speech orders. [facility] 05-21-2025 Consult note Formatting of th is note is different from the original. INITIAL CONSULT NOTE. NEUROLOGY Patient Name: Joseph Brown Patient : 1955 Acct: [id number] Date of Admission: 05/20/2025 Room/Bed: [facility] A PCP: Laquita Ding DO History of [...] hits bed +2 [] Some Effort Against [place] +2 [] No Effort Against [place] +3 [] No Movement +4 5B: Right Arm Motor [] Amputation/Joint Fusion 0 [x] No Drift for 10 Seconds 0 [] Drift, but doesn't hit bed +1 [] Drift, hits bed +2 [] Some Effort Against [place] +2 [] No Effort Against [place] +3 [] No Movement +4 6A: Left Leg Motor [] Amputation/Joint Fusion 0 [x] No Drift for 5 Seconds 0 [] Drift, but doesn't hit bed +1 [] Drift, hits bed +2 [] Some Effort Against [place] +2 [] No Effort Against [place] +3 [] No Movement +4 6B: Right Leg Motor [] Amputation/Joint Fusion 0 [x] No Drift for 5 Seconds 0 [] Drift, but doesn't hit bed +1 [] Drift, hits bed +2 [] Some Effort Against [place] +2 [] No Effort Against [place] +3 [] No Movement +4 7: Limb [...] 11: Extinction/Inattention [x] No abnormality 0 [] Visual/tactile/auditory/spatial/per kasia inattention +1 [] Extinction to bilateral simultaneous [...] 410 ms QTC Interval 422 ms P [place] 47 degrees QRS [place] 6 degrees T Wave [place] 44 degrees [place] Interval 128 ms CBC auto differential Collection [...] 66 ALT 18 AST 25 BILITOT 0.4 @BRIEFLAB([facility]) ABGs:)No results for input(s): PH, PO2, PCO2, [...] patient, ordering medications/tests/procedures, documenting clinical information on th EMR. An additional 10 mins was was [...] to be involved in this patient's care. [facility] 05-21-2025 Consult note Formatting of th is note is different from the original. INITIAL CONSULT NOTE. NEUROLOGY Patient Name: Joseph Brown Patient : 1955 Acct: [id number] Date of Admission: 05/20/2025 Room/Bed: B4-454/B4-454 A PCP: Laquita Ding DO History of [...] hits bed +2 [] Some Effort Against [place] +2 [] No Effort Against [place] +3 [] No Movement +4 5B: Right Arm Motor [] Amputation/Joint Fusion 0 [x] No Drift for 10 Seconds 0 [] Drift, but doesn't hit bed +1 [] Drift, hits bed +2 [] Some Effort Against [place] +2 [] No Effort Against [place] +3 [] No Movement +4 6A: Left Leg Motor [] Amputation/Joint Fusion 0 [x] No Drift for 5 Seconds 0 [] Drift, but doesn't hit bed +1 [] Drift, hits bed +2 [] Some Effort Against [place] +2 [] No Effort Against [place] +3 [] No Movement +4 6B: Right Leg Motor [] Amputation/Joint Fusion 0 [x] No Drift for 5 Seconds 0 [] Drift, but doesn't hit bed +1 [] Drift, hits bed +2 [] Some Effort Against [place] +2 [] No Effort Against [place] +3 [] No Movement +4 7: Limb [...] 11: Extinction/Inattention [x] No abnormality 0 [] Visual/tactile/auditory/spatial/per kasia inattention +1 [] Extinction to bilateral simultaneous [...] 410 ms QTC Interval 422 ms P [place] 47 degrees QRS [place] 6 degrees T Wave [place] 44 degrees [place] Interval 128 ms CBC auto differential Collection [...] 66 ALT 18 AST 25 BILITOT 0.4 @BRIEFLAB([facility]) ABGs:)No results for input(s): PH, PO2, PCO2, [...] this patient's care. documented in this encounter [facility] 05-21-2025 History and physical note Attending History [...] Vital Signs Full code Inpatient consult to Neurology--[facility]; dizziness OT eval and treat [...] - DO NOT do CPR, intubation] [_] [DNR-FACILITIES CUSTODIAN - Comfort care only] [_] DNR form [...] patient and/or family/surrogate. José Antonio Woodruff MD [facility] 05/21/2025, 9:12 PM [1] Past Medical History: [...] Julian Marmolejo MD [5] No Known Allergies [facility] 05-21-2025 Note Attending History an d [...] 179 BMP: Rece (more content not included)... [facility] 05-21-2025 History and physical note Attending [...] Katja Brown Relation: Spouse Secondary Emergency Contact: Jay Sweeneyki Relation: Child Code status: Full Code -see [...] Vital Signs Full code Inpatient consult to Neurology--[facility]; dizziness OT eval and treat [...] - DO NOT do CPR, intubation] [_] [DNR-FACILITIES CUSTODIAN - Comfort care only] [_] DNR form [...] patient and/or family/surrogate. José Antonio Woodruff MD [facility] 05/21/2025, 9:12 PM [1] Past Medical History: [...] No Known Allergies documented in this encounter [facility] 05-21-2025 Note PHYSICAL THERAPY [facility] Initial Evaluation Name/MRN: Joseph Brown ([id number]) Evaluation Date: 05/21/2025 Date of : 1955 [...] 09/22/2021 Chronic respiratory failure with hypoxia ([facility]) 11/24/2020 Acute deep vein thrombosis (DVT) of both lower extremities ([facility]) 11/04/2020 Essential hypertension 11/04/2020 Pneumonia due to COVID-19 virus 11/04/2020 BPH without obstruction/lower urinary tract symptoms 11/04/2020 SVT (supraventricular tachycardia) ([facility]) 11/04/2020 ARDS (adult respiratory distress syndrome) ([facility]) 10/24/2020 Syncope 09/12/2017 Epididymal cyst 01/25/2017 Medical [...] Responsibilities: Independent Receives Help From: None Active Cosmetic Chemist: Yes Prior Level of Function Prior Level [...] of Increasing Activity (more content not included)... [facility] 05-20-2025 Emergency department Note EMERGENCY DEPARTMENT [...] injection 25 mg (25 mg IntraVENous Given 05/21/25 0123) SCREENINGS [place] Coma Scale Best Eye Response: Spontaneous Best Verbal Response: Oriented Best Motor Response: Follows commands [place] Coma Scale Score: 15 Patient in for [...] use: No Jacoby Sanders DO 05/21/25 0534 documented in this encounter [facility] 05-20-2025 Physician Emergency department Note EMERGENCY DEPARTMENT ENCOUNTER Pt [...] injection 25 mg (25 mg IntraVENous Given 05/21/25 0123) SCREENINGS [place] Coma Scale Best Eye Response: [...] use: No Jacoby Sanders DO 05/21/25 0534 [facility] 01-14-2025 Miscellaneous Notes Care Management Progress Note Short Medical why still here: Patient remains on 4S today for complaints of dizziness/KENT. Neurology consulted to see. CT head/MRI brain complete. No acute findings/no significant stenosis. CT head showed some nasal polyps/MRI some paranasal sinus disease/polyposis. EKG SR. Swallow eval passed. Patient independent Planned Discharge Disposition: Home with spouse Barriers/Today we still Wait: Clinical stability, Private Equity Analyst recommendations (Neuro) Length of Stay (Days): 0 GMLOS: No GMLOS Documented documented in this encounter [facility] 12-20-2024 Note Sinus rhythm Abnormal R-wave progression, early transition Minimal ST depression, lateral leads Electronically Signed On 12-20-2024 15:38:23 EST by Cydney Cantu [facility] 12-20-2024 Note Sinus rhythm Abnormal R-wave progression, early transition Minimal ST depression, lateral leads Electronically Signed On 12-20-2024 15:38:23 EST by Cydney Cantu [facility] 12-20-2024 Note IMPRESSION: Sinus rhythm Abnormal R-wave progression, early transition Minimal ST depression, lateral leads Electronically Signed On 12-20-2024 15:38:23 EST by Cydney Cantu [facility] 12-20-2024 Hospital Discharge instructions Cydney Cantu DO - 12/20/2024 11:38 AM EST Antivert as needed for dizziness and Zofran for nausea. Can follow-up with ENT if you have persistent mild symptoms but if your symptoms are unable to be managed at home please return to the emergency department for reevaluation. The following attachments cannot be sent through Care Everywhere.Chronic Sinusitis (Angolan)Vertigo (a Type of Dizziness) Discharge Instructions (Angolan)documented in this encounter [facility] 12-20-2024 Emergency department Note EMERGENCY DEPARTMENT ENCOUNTER [...] Alcohol use: No Drug use: No SCREENINGS [place] Coma Scale Best Eye Response: Spontaneous Best Verbal Response: Oriented Best Motor Response: Follows commands [place] Coma Scale Score: 15 NIH Stroke Scale [...] Report Dictated on Electronically Signed By: Haresh Ryees MD Electronically Signed Date/Time: 12/20/2024 10:05 AM [...] [BM] ED Course User Index [BM] Cydney Cantu DO Diagnoses as of 12/20/24 1139 Sinusitis, unspecified [...] Discharge 12/20/2024 11:36:08 AM PATIENT REFERRED TO: [facility] ENT [address] [facility] [address] DISCHARGE MEDICATIONS: New Prescriptions AMOXICILLIN (AMOXIL) [...] 3 weeks ago. documented in this encounter [facility] 12-20-2024 Emergency department Triage note Pt comes [...] 1 month ago and 3 weeks ago. [facility] 12-20-2024 Physician Emergency department Note EMERGENCY DEPARTMENT ENCOUNTER Pt [...] Alcohol use: No Drug use: No SCREENINGS [place] Coma Scale Best Eye Response: [...] as of 12/20/24 1139 MonDec 20, 2024 09 69-year-old male with past medical history of [...] Discharge 12/20/2024 11:36:08 AM PATIENT REFERRED TO: [facility] [address] [facility] [address] DISCHARGE MEDICATIONS: New Prescriptions AMOXICILLIN (AMOXIL) [...] Medicine Provider Cydney Cantu DO 12/20/24 1139 [facility] Discharge summary Note Date/Time July 04, 2025 1:06pm [facility] Medical Records Department [address] [place] [address] Emergency Department Summary 07/04/25 MR#: [id number] Acct: [id number] Name: JOSEPH BROWN Rep #:[id number] : 1955 69 From: Lawrence Abad MD PCP: Dr. Sherice العلي MD Status:REG E R Location: ED HPI History of Present Illness Chief Complaint: Syncope Narrative Narrative: 69-year-old male who denies significant past medical history is postoperative day 3 from surgery on his nasal septum by Dr. Johnson. He has nasal splints inplace that come out Monday. He presents with his daughter because of 2 episodesof syncope that he had for approximately 30 seconds today. He states that around 4:00 in the morning, approximately 6 hours ago, he felt lightheaded and dizzy. His daughter reports that she heard from her mother that he passed out for about 30 seconds. She was going to call EMS but he started coming to. She went over to the house and around 6 AM, had another syncopal episode that was very brief. He has not been eating or drinking and is usually dehydrated. He denies any prodromal chest pain or shortness of breath. He feels back to baseline currently. Additionally, he states he is constipated but usually only has a bowel movement every 4 days. He presents because of the 2 brief syncopal episodes that he had. [facility] Medical History Obstructive sleep apnea Left leg paresthesias Chronic back pain Radicular pain of left lower extremity Osteoarthritis (arthritis due to wear and tear of joints) COVID-19 virus infection Lumbar stenosis Wears glasses History of steroid therapy Injury of back Former smoker On home oxygen therapy Shortness of breath on exertion History of pain when walking History of stress test Home Medications ?Medication ?Instructions ?Recorded ?Last Taken ?Type atorvastatin 40 mg tablet 40 mg PO QHS CHOLESTEROL 11/29/21 History acetaminophen 500 mg tablet 1,000 mg (2 x 500 mg) PO Q 8 PRN 12/07/21 Unknown Rx fever or pain #0 tabs meloxicam 15 mg tablet 15 mg PO DAILY 07/04/25 Unkn own History Allergy/AdvReac Type Severity Reaction Status Date / Time No Known Allergies Allergy Verified 07/04/25 09:42 Family History Mother CAD (coronary artery disease) Arthritis Surgical History Hx of colonoscopy Hx of cholecystectomy Hx of arthroscopy of left knee History of amputation of finger of right hand Social History adopted: No household members: spouse number of children: 2 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 No prodromal chest pain or shortness of breath. Transient lightheadedness and dizziness. Postoperative day 3 from nasal septum surgery. Has nasal splints in place. Denies any black stool recently. No nausea or vomiting. EXAM Physical Exam Narrative Exam Narrative: Afebrile. Vital signs noted. Nontoxic-appearing. Cardiovascular examination reveals regular rate and rhythm. Lungs are clear to auscultation bilaterally. Abdomen is soft and nontender with positive bowel sounds. Positive bandage nasal bridge, no bleeding from nares. No pallor of skin. Neurological examination nonfocal, nonlateralizing.. Awake, alert, oriented x 3. Moves all extremities. Const Vital Signs: 07/04/25 09:41 07/04/25 09:52 07/04/25 11:41 Temperature 97.1 F L 98.7 F Temperature Source Temporal Oral Pulse Rate 84 83 Respiratory Rate 14 18 Respiratory Effort Normal Non-Labored Respiratory Pattern Normal Blood Pressure 123/74 H 121/77 H Blood Pressure Mean 90 91 Pulse Ox 98 93 Oxygen Delivery Method Room Air Room Air MDM MDM MDM Narrative Medical decision making narrative: The differential diagnosis includes but not limited to dehydration versus other electrolyte abnormality versus orthostatic hypotension versus vasovagal syncope as he does have nasal splints in place. EKG will be obtained to help rule out dysrhythmia. I will check a CBC to ensure that he is not anemic because in the past, in review of his problem list he had acute blood loss anemia. Given his recent surgery, he may be anemic, but it does not appear that way clinically on examination. BMP will be obtained to help rule out dehydration or other electrolyte abnormality. He was bolused normal saline 1 L intravenously. I do not feel that he needs a troponin as he is not having any chest pain. EKG obtained and interpreted by myself independently as normal sinus rhythm at 72 bpm without ectopy or acute ST changes. No STEMI. QTc normal at 431 ms. I reviewed his laboratory work and he has a normal white count of 11.0 with hemoglobin 13.4, hematocrit 40.5, platelet count 165. I reviewed his electrolyte panel and he has normal sodium, normal potassium, BUN normal at 13 and creatinine 0.84, no evidence of severe dehydration. He may have had more intravascular volume depletion. Glucose elevated at 133 with normal anion gap of 12. Upon repeat examination, he was able to ambulate to the bathroom and feels improved after IV fluids. I discussed patient with Dr. Traore for Dr. Johnson who agrees with outpatient follow-up and discharge for nasal splint removal on Monday. Return instructions to the emergency department were reviewed. Disposition is discharged home in stable condition. History & Record Review Discussion w/independent historian: Patient and Family Additional record(s) reviewed:: Prior ED visit (Seen for low back pain, noncontributory to current chief complaint) Lab Data Attestation: I reviewed the patient's lab results. Labs: Laboratory Results - last 24 hr 07/04/25 10:39 WBC 11.0 RBC 4.38 L Hgb 13.4 Hct 40.5 MCV 92.5 MCH 30.6 MCHC 33.1 RDW Std Deviation 47.4 H RDW Coeff of Pancho 13.9 Plt Count 165 MPV 10.2 Immature Gran % (Auto) 0.500 Neut % (Auto) 75.8 H Lymph % (Auto) 12.8 L Mineral % (Auto) 10.0 Eos % (Auto) 0.7 Baso % (Auto) 0.2 Absolute Neuts (auto) 8.4 H Absolute Lymphs (auto) 1.41 Nucleated RBC % 0 Sodium 137 Potassium 4.1 Chloride 103 Carbon Dioxide 22.3 Anion Gap 12 BUN 13 Creatinine 0.84 Estim Creat Clear Calc 104.58 Est GFR (MDRD) Non-Af 93 BUN/Creatinine Ratio 15.8 Glucose 133 H Calcium 8.7 Management Discussion w/another healthcare provider: Private Equity Analyst (Dr. Traore, otolaryngology) Discharge Plan Triage Chief Complaint: Syncope ED Provider: Lawrence Abad Dx/Rx/DC Orders Clinical Impression: Vasovagal syncope, Intravascular volume depletion, Syncope and collapse Instructions: ED Fainting, Vagal Reaction, ED Fainting, Uncertain Cause Prescriptions: No Action atorvastatin 40 mg Tablet 40 mg PO QHS acetaminophen 500 mg Tablet 1,000 mg PO Q8 PRN (Reason: fever or pain) Qty: 0 0RF Rx Instructions: You have been taking this every 8 hours while in rehab. I would continue theevery 8 hours for a week and then you can try using it every 6-8 hours as neededfor pain. meloxicam 15 mg tablet 15 mg PO DAILY Primary Care Provider: Sherice العلي Referrals: LAQUITA DING [Other] Activity Restrictions/Additional Instructions: Follow-up with Dr. Johnson as scheduled on Monday. Return to the emergency department with increasing fainting spells, new or worsening symptoms. Drink plenty of oral fluids. Print Language: Angolan Disposition Disposition: Home, Self Care What to do if you have Problems For any increased pain, shortness of breath, bleeding, nausea or vomiting, chest pain, or any unexpected problems, contact your Primary Care Provider. Call [facility] ([phone]) or report to the closest Emergency Room. Call 911 if necessary. 07/04/25 1306 <Electronically signed by Lawrence Abad MD> Cosigner Signature (if applicable): CC: Dr. Sherice العلي MD ~ Signed [facility] Work Phone: Evaluation note* Diagnosis Pneumonia due to COVID-19 virus documented [facility] encounter [facility] Work Phone: Evaluation note* Diagnosis Sinusitis, unspecified chronicity, unspecified location- Primary Vertigo Dizziness and giddiness [facility] Dizziness- Primary Dizziness and giddiness Dizziness Dizziness and giddiness [facility]* Diagnosis Laceration of right thumb without foreign body without damage to nail, initial encounter- Primary [facility] assessment information availableWMary[facility] Hospital Work Phone: Hospital Discharge instructionsAdditional Instructions Follow-up with Dr. Johnson as scheduled on Monday. Return to the emergency department with increasing fainting spells, new or worsening symptoms. Drink plenty of oral fluids.[facility] Work Phone: Reason for referral (narrative)No reason for referral information availableWMarymount Hospital Work Phone: Advance Directives No Advanced Directives Records FoundDocuments on File Type Date Recorded Patient Rn Transfer Expl anation Advance Directives and Living Will Power of Store Standards Associate Latest Code Status on File Code Status Date Activated Date Inactivated Comments Full Code 08/06/2017 4:23 PM 08/08/2017 3:33 PM Documents on File Type Date Recorded Patient Rn Transfer Expl anation ACP-Advance Directive ACP-Power of Store Standards Associate Latest Code Status on File Code Status Date Activated Date Inactivated Comments Full Code 10/20/2020 2:43 AM Full Code 10/19/2020 10:54 AM 10/20/2020 2:43 AM Full Code 08/06/2017 4:23 PM 08/08/2017 3:33 PM Documents on File Type Date Recorded Patient Rn Transfer Expl anation ACP-Advance Directive ACP-Power of Store Standards Associate Latest Code Status on File Code Status [...] Comments 05/21/2025 6:46 AM 05/21/2025 9:16 PM Advance Directive Response Recorded Date/ Time Do you have a Healthcare Power of Store Standards Associate? Yes July 04, 2025 9:53am Discharge Instructions * Instructions* Fransisco Lopez MD [...] better: Rest Drink plenty of fluids Take fidu-brc-gwsufiz cold and flu medications to reduce fever [...] COVID-19. These instructions are also available at: https://www.cdc.gov/coronavirus/2019-ncov/hcp/pasrvypx-osxslxo-woxucx.html It has been determined that you do [...] possible, put on a facemask before [facility] arrive. Take care of your mental health You might be feeling anxious, afraid, lonely or uncertain. The following link has a guide with a list of helpful behavioral health resources and a few tips for taking care of your emotional health while you are quarantined: https://[employer]D.[facility].gov/system/files/qjk08-0950.pdf Wear a face mask You should wear [...] clean your hands with an alcohol-based hand va underwriter that contains 60 to 95% alcohol, covering [...] andwater. Monitor your symptoms Please contact the [facility] as soon as possible. Persons who are [...] mask before emergency medical services arrive. Visit: https://[facility].[place].gov For specific questions and answers about COVID-19, call the [facility] info line at 0-620 2-[facility] ( ) Discontinuing home isolation Patients with confirmed COVID-19 should remain under home isolation precautions until the risk of secondary transmission to others is thought to be low. The decision to discontinue home isolation precautions is made on a xcah-lq-nnov basis, in consultation with health care providers, and state and local health departments. Recommended precautions for household members, intimate partners, and caregivers If you are providing care for a person infected or suspected to be infected with COVID-19, please note the following instructions, which are also available at: https://www.cdc.gov/coronavirus/2019-ncov/hcp/tfrorkbt-nsrtgwy-chwnxw.html How do I take care of someone [...] 20 seconds or use an alcohol-based hand va underwriter that contains 60 to 95% alcohol, covering [...] with soap and water or alcohol-based hand va underwriter. Next, remove and dispose of facemask, and immediately clean your hands again with soap and water or alcohol-based hand va underwriter Avoid sharing household items with the patient. [...] soap and water or an alcohol-based hand va underwriter) immediately after removing and throwing away your [...] soap and water or an alcohol-based hand va underwriter) immediately after handling these items. Soap and [...] and water are not available, use hand va underwriter Avoid touching your eyes, nose or mouth Avoid sharing personal household items Clean 'high-touch' surfaces daily If the person you live with has tested positive for COVID-19, you will be considered a close contact, and will also likely be asked to self-quarantine. documented in this encounter* Discharge Instr - MEERA* Russ Kishan, LSW - 11/03/2020 11:54 AM EST Continuity of Care Form Patient Name: Joseph Brown : 1955 Admit date: 10/19/2020 Discharge date: Code Status Order: Full Code Advance Directives: Advance Care Flowsheet Documentation Date/Time Healthcare Directive Type of Healthcare Directive Copy in Chart Healthcare Agent Appointed Healthcare Agent's Name Healthcare Agent's Phone Number 10/27/20 [phone] No, patient does not have an advance directive for healthcare treatment 10/19/20 1134 Yes, patient has an advance directive for healthcare treatment Durable power of material damage appraiser for health care No, copy requested from family 10/19/20 0000 Healthcare power of material damage appraiser Katja Brown Admitting Physician: Jerardo Green MD PCP: LAQUITA DING DO Discharging Nurse: Discharging Hospital Unit/Room#: [id number] Discharging Unit Phone Number: Emergency Contact: Extended Emergency Contact Information Primary Emergency Contact: Katja Brown [facility] Relation: None Past Surgical History: Past Surgical History: Procedure Laterality Date AMPUTATION fingers CHOLECYSTECTOMY Immunization History: Immunization History Administered Date(s) Administered Tdap (Boostrix, Adacel) 08/06/2017 Active Problems: Patient Active Problem List Diagnosis Code Epididymal cyst N50.3 BPH without obstruction/lower urinary tract symptoms N40.0 Syncope R55 SVT (supraventricular tachycardia) ([facility]) I47.1 Pneumonia due to COVID-19 virus U07.1, J12.82 ARDS (adult respiratory distress syndrome) ([facility]) J80 Isolation/Infection: Isolation No Isolation Patient Infection [...] (109.2 kg) Mental Status: {IP PT MENTAL STATUS:} IV Access: { MEERA IV ACCESS:772640283} Nursing Mobility/ADLs: Walking {CHP DME ADLs:172285909} Transfer {CHP DME ADLs:005483884} Bathing {CHP DME ADLs:147608816} Dressing {CHP DME ADLs:527169759} Toileting {CHP DME ADLs:873289941} Feeding {CHP DME ADLs:055003916} Reconnaissance Man {P DME ADLs:796929633} Med Delivery { MEERA MED Delivery:114274215} Wound Care Documentation and Therapy: Elimination: Continence: Bowel: {YES / NO:} Bladder: {YES / NO:} Urinary Catheter: {Urinary Catheter:621709320} Colostomy/Ileostomy/Ileal Conduit: {YES / NO:} Date of Last BM: Intake/Output Summary (Last 24 hours) at 11/03/2020 1151 Last data filed at 11/03/2020 0739 Gross per 24 hour Intake 840 ml Output 1500 ml Net -660 ml I/O last 3 completed shifts: In: 1040 [P.O.:1040] Out: 1875 [Urine:1875] Safety Concerns: { MEERA Safety Concerns:241645318} Impairments/Disabilities: { MEERA Impairments/Disabilities:086861163} Nutrition Therapy: Current Nutrition Therapy: { MEERA Diet List:014720667} Routes of Feeding: {CHP DME Other Feedings:724544686} Liquids: {Radarman liquid thickness:89708} Daily Fluid Restriction: {CHP DME Yes amt example:307464140} Last Modified Barium Swallow with Video (Video Swallowing Test): {Done Not Done Date:} Treatments at the Time of Hospital Discharge: Respiratory Treatments: Oxygen Therapy: {Therapy; copd oxygen:61467} Ventilator: { CC Vent List:299379805} Rehab Therapies: {THERAPEUTIC INTERVENTION:6567211482} Weight Bearing Status/Restrictions: { CC Weight Bearin} Other Medical Equipment (for information only, NOT a DME order): {EQUIPMENT:252277854} Other Treatments: Patient's personal belongings (please select all that are sent with patient): {[facility] DME Belongings:774241170} RN SIGNATURE: {Esignature:793741774} CASE MANAGEMENT/SOCIAL WORK SECTION Inpatient Status Date: Readmission Risk Assessment Score: Readmission Risk Risk of Unplanned Readmission: 23 Discharging to Facility/ Agency Name: [facility] Address: [address] [place] [address] Dialysis Facility (if applicable) Name: Address: Dialysis Schedule: Phone: Fax: CURRENT COST OF BOTH ELIQUIS AND XARELTO IS $492. FAMILY WAS PROVIDED WITH FREE COPAY CARDS AND PATIENT ASSISTANCE APPLICATIONS. PER [facility] HOUSE PHARMACY XARELTO MAY BE PREFERRED ANTICOAGULATION MEDICATION AND COST MAY DECREASE AFTER DEDUCTIBLE IS MET. Dulce Peres rn, cm Housekeeper Nanny/Consumer Insight Manager signature: PHYSICIAN SECTION Prognosis: Good Condition at [...] Discharge Medications: Joseph Brown Home Medication Instructions LUPE:[id number] Printed on:11/04/20 4233 Medication Information apixaban (ELIQUIS) 5 MG TABS [...] Complexity: follow up within 7-14 calendar days (80717) [x] Severe Complexity: follow up within 7 calendar days (37122) Follow up Testing, Pending results or Referrals [...] PM This report was created using the BeanJockey Speaking voice- activated system. Despiteprompt dictation and careful editorial review, there may be subtle contextual errors in this report, due to misrecognition of the spoken word. documented in this encounter History of Present Illness * Hossein Desai RN - 11/04/2020 1:20 PM EST Report given to [facility] * Linda Acosta OTA - 11/04/2020 11:47 AM EST Occupational Therapy Facility/Department: [facility] 2E TELEMETRY Daily Treatment Note NAME: Joseph [...] Minutes: 19 Minutes(adl) ESTIVEN Mae * Linda Juarez, JODY - 11/04/2020 11:45 AM EST Speech Language Pathology Facility/Department: [facility] 2E TELEMETRY Dysphagia Treatment Note NAME: Joseph Brown [...] minutes Time Session Ended: 1145 Linda Juarez M.A.[facility]/GOVERNMENT EMPLOYEE Speech-Language Pathologist * Hossein Desai RN - 11/04/2020 11:28 AM EST Report called to [facility] and spoke with marketing secretary. Nurse was unable to take report and will call meback. Continuing to monitor patient. * Hossein Desai RN - 11/04/2020 11:22 AM EST [...] 11/04/2020 10:10 AM EST Physical Therapy Facility/Department: [facility] 2E TELEMETRY Daily Treatment Note NAME: Joseph Neetu Brown : 1955 Date of Service: 11/04/2020 [...] ther act) Ruchi Rogel PTA * Jenny Rees, NELI - DRAWING HAND - 11/04/2020 8:49 AM EST [facility], Pulmonary Critical Care and Sleep Medicine [address] [place], [place] [id number] Patient - Joseph Brown, Age - 64 y.o. - 1955 Room Number - [id number] Consulting - Jerardo Green MD Primary Care Physician - LAQUITA DING, [id number] [id number] Date of Admission - 10/19/2020 8:50 AM [...] Continue current BD therapy Steroids. * Hossein Desai RN - 11/03/2020 2:18 PM EST Pt arrived from 1E in stable condition. Alert and oriented x4. [...] 2 east * Jenny Rees APRN - CNP - 11/03/2020 10:56 AM EST [facility], Pulmonary Critical Care and Sleep Medicine [address] [place] [address] Patient - Joseph Brown, Age - 64 y.o. - 1955 Room Number - 157/[id number] Consulting - Jerardo Green MD Primary Care Physician - LAQUITA DING DO Date of Admission - 10/19/2020 8:50 AM [...] OR acetaminophen Labs CBC Recent Labs 11/03/20 034 WBC 9.5 HGB 11.0* HCT 33.8* MCV 92.8 PLT 305 BMP: Recent Labs 11/03/20341 NA 143 K 3.8 CL 113* CO2 26 BUN 42* CREATININE 0.62 GLUCOSE 139* MG 2.5* PHOS 3.9 IONCA 4.50 ABG: Recent Labs 11/02/2031711/03/20341 PH 7.45 7.51* No results found for: IFIO2, MODE, SETTIDVOL, SETPEEP LIVER PROFILE Recent Labs 11/02/20317 AST 101* ALT 221* BILITOT 0.7 ALKPHOS [...] shield Hospitalist Progress Note 11/03/2020 10:16 AM [phone]: Please page ok @ [phone] for patient care issues. [phone]: Please page [facility] night Hospitalist for any issues. Subjective: Admit [...] Units Oral Daily LABS: CBC: Recent Labs 11/01/20 25711/02/2031711/03/20341 WBC 8.5 8.2 9.5 RBC 3.39* 3.39* [...] Code Discharge planning: TBD OSEI CHANDLER MD, MD Division of Hospitalist Medicine Inpatient Medical Services This report was created using the BeanJockey Speaking voice- activated system. Despiteprompt dictation and careful editorial review, there may be subtle contextual errors in this report, due to misrecognition of the spoken word. * Malorie Cho RD, LD - 11/02/2020 3:45 PM EST Comprehensive Nutrition Assessment Type and Reason for Visit: Reassess(pt extubated 10/31- to transfer to floor today) Nutrition Recommendations/Plan: 1)suggest to continue pureed diet as tolerated per GOVERNMENT EMPLOYEE - speech now recommending dental soft - [...] assess Fluid Accumulation: No significant fluid accumulation Closing Supervisor Strength: Not Performed Estimated Daily Nutrient Needs: Energy (kcal): 1200- 1525; Weight Used for Energy Requirements: Current Protein (g): 81-115; Weight Used for Protein Requirements: English(1-1.4) Fluid (ml/day): per md; Method Used for [...] Usual Body Weight: 240 lb (108.9 kg) English Body Weight: 178 lbs; % English Body Weight 135.3 % BMI: 32.7 Adjusted Body Weight: ; No Adjustment Adjusted BMI: BMI Categories: Obese Class 1 (BMI 30.0-34.9) Nutrition Diagnosis: Inadequate oral intake related to catabolic illness, other (comment), biting/chewing (masticatory) difficulty, swallowing difficulty(covid- weak) as evidenced by intake 0-25%, other (comment)(senior risk manager recommendations) Altered nutrition-related lab values related to [...] to determine Contact: [phone] * Linda Juarez, GOVERNMENT EMPLOYEE - 11/02/2020 3:38 PM EST Speech Language Pathology Facility/Department: B ICU Dysphagia Treatment Note NAME: Joseph Brown [...] syllables without loss of voice. Trial of sanjuana johnson. Pt is taking via single small bites [...] POC. 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 [employer] Leisure & Hobbies: na IADL Comments: na Additional Comments: [facility] [place] Cognition Cognition Overall Cognitive Status: WFL Objective Observation/Palpation Observation: all lines/tubes intact AROM [...] Left in chair, Nurse notified OutComes Score AM-PAC Mobility Inpatient How much difficulty turning over [...] climbing 3-5 steps with a railing?: Total AM-[facility] Inpatient Mobility Raw Score : 12 AM-[facility] Inpatient T-Scale Score : 35.33 Mobility Inpatient CMS 0-100% Score: 68.66 Mobility Inpatient CMS G-Code Modifier : CL AM-PAC Score AM-[facility] Inpatient Mobility Raw Score : 12 (11/02/201509) AM-[facility] Inpatient T-Scale Score : 35.33 (11/02/201509) Mobility Inpatient CMS 0-100% Score: 68.66 (11/02/200) Mobility Inpatient CMS G-Code Modifier : CL (11/02/201509) Goals Short term goals Time Frame for Short term goals: 6 visits Short term goal 1: Pt will complete 1-2 sets/10 reps of LE exercises to improve LE strength Short term goal 2: Pt will complete supine<->sit at [facility] to improve bed mobility Short term goal 3: Pt will complete sit<->stand with FWW at [facility] in preparation for mobility Short term goal [...] 1339 Time Out 1358 Minutes 19 Janine Bonner PT * Suleiman Laird MD - 11/02/2020 3:13 PM EST Asked to assume care on transfer out of ICU. D/w Dr Conteh * Jerardo Conteh MD - 11/02/2020 7:46 AM EST ICU - Progress Note Joseph Brown : 1955(64 y.o.) Date: November 02, 2020 Subjective: 1. Extub 10/31 -->weaned to 5-6 lpm NC 2. Dysphagia but passed GOVERNMENT EMPLOYEE -->puree, thin liq 3. Net NEG I/Os [...] Conjunctiva []Injected [x]Non-Injected Pinnae [x]Normal []Other Dentitian [][place] Teeth []Dentures Oral Mucosa [][place] []Moist []Dry Oral ETT []Present [x]Absent Neck: [...] [x]Absent CORDOVA ([x]RUE [x]RLE [x]LUE [x]LLE) Neurologic: [place] []Yes [x]No Corneal reflexes []Present []Absent Plantar reflexes []Up [x]Down []Absent Withdraws to tactile [x]Yes []No Follows Commands [x]Yes []No []Unresponsive to verbal [x]Cranial nerves grossly intact [x]Sensation grossly intact Psych: Alert []yes []no Oriented []x0 []x1 []x2 [x]x3 Affect [x]Normal []Flat []Agitated []Anxious []Calm []Sedated [x]NAD [facility] within last 72 hours BMP: Recent Labs 10/31/2033611/01/208 11/02/20317 NA 140 140 145 K 4.5 3.9 3.8 CL 106 107 112* CO2 31* 30 29 BUN 38* 36* 40* CREATININE 0.69 0.65 0.63 CALCIUM 8.2* 8.3* 8.4 MG 2.5* 2.4* 2.5* PHOS 3.8 4.1 4.6* LFTS: Recent Labs 10/31/2033611/01/20 0258 11/02/20317 AST 86* 111* 101* ALT 117* 172* 221* PROT 6.1* 6.2* 6.2* LABALBU 2.7* 2.8* 2.8* BILITOT 0.7 0.7 0.7 ALKPHOS 70 75 71 Glucose: Recent Labs 10/31/2033611/01/208 11/02/20317 GLUCOSE 135* 130* 138* CBC: Recent Labs 10/31/2033611/01/2025711/02/20317 WBC 9.7 8.5 8.2 HGB 10.2* 10.4* 10.3* HCT 31.1* 31.0* 30.8* PLT 316 321 352 MCV 91.2 91.5 90.8 RDW 14.4 14.5 14.5 ABGs: Recent Labs 10/31/20423 PHART 7.458* VNX7IRN 38.8 PO2ART 89.7 GBS6GHT 27.4* B2MDZPID 97.4 FIO2A 40 CRP: Recent Labs 10/31/2033611/01/2025711/02/20317 CRP 123.9* 73.8* 43.8* LDH: Recent Labs 10/31/2033611/01/208 11/02/20317 LDH 310* 363* 349* Assessment and Plan: [...] may need 0.45 NS low rate MIV -->GOVERNMENT EMPLOYEE, dysphagia diet -->encouraged po -->not really eating much of pureed diet at all -->senokot-S, glycolax -->continue dulcolax supp q12 till (+) BM -->PPI -->d/c R IJ -->d/c nance -->may need bladder scan if low uop Dispo -->OK for tele (h/o SVT) Full Code Family Communication Number Called: [phone] Name of Designated Family Rn Transfer: Katja Brown Relationship to Patient: spouse Phone Call Outcome: I spoke with the individual listed above. Family Rn Transfer Updated on the Following: Improved TRANSFER CHECKLIST Transfer Med Reconciliation (resume home meds if able, convert to PO if able) Complete Antibiotics (name, indication, duration, convert to PO if able) None Steroid (indication, duration, convert to PO if able) Yes, addressed in today's progress note (decadron taper) Anticipated Oval Medications (ICU initiated) or Dose Changes and Indication No Permanently Discontinued Home Medications and Reason for medication contraindication No Nance Catheter (please remove if able) No Central Line (please remove if able) No Transfer Discussed with: Dr. Laird If additional questions for ICU team within 24 hours of ICU transfer, page [phone] for clarifications. * Susan Millard, OT - 11/01/2020 1:04 PM EST Occupational Therapy Facility/Department: [facility] ICU Daily Treatment Note NAME: Joseph Brown : 1955 Date of Service: 11/01/2020 Discharge Recommendations: (facility based therapy) OT Equipment Recommendations Equipment Needed: No Other: TBD Assessment Performance deficits / Impairments: Decreased functional mobility ;Decreased high-level IADLs;Decreased endurance;Decreased ADL status;Decreased balance;Decreased strength Assessment: Pt is a 64 yo male admitted to [facility] with acute hypoxic respiratory failure 2/2 COVID. [...] Inpatient Daily Activity Raw Score: 16 (11/01/20 1304) AM-PAC Inpatient ADL T-Scale Score : 35.96 (11/01/20 1304) ADL Inpatient CMS 0-100% Score: 53.32 (11/01/20 1304) ADL Inpatient CMS G-Code Modifier : CK (11/01/20 130) Goals Short term goals Time Frame for [...] 8 Minutes(TA-1) Susan Millard OT * Chela Xiao, GOVERNMENT EMPLOYEE - 11/01/2020 11:46 AM EST Speech Language Pathology Facility/Department: [facility] ICU CLINICAL BEDSIDE SWALLOW EVALUATION NAME: Joseph Brown : 1955 ADMISSION DATE: 10/19/2020 ADMITTING DIAGNOSIS: has Epididymal cyst; BPH without obstruction/lower urinary tract symptoms; Syncope; SVT (supraventricular tachycardia) ([facility]); Pneumonia due to COVID-19 virus; and ARDS (adult respiratory distress syndrome) ([facility]) on their problem list. ONSET DATE: 10/20/20 [...] one diet consistency restricted Treatment Plan Requires GOVERNMENT EMPLOYEE Intervention: Yes Duration/Frequency of Treatment: 3 visits [...] devices: Call light within reach Therapy Time GOVERNMENT EMPLOYEE Individual Minutes Time In: 1118 Time Out: 1138 Minutes: 20 JODY Prakash 11/01/2020 11:46 AM * Demetria Alford MD - 11/01/2020 8:56 AM EST ICU Progress Note 11/01/2020 10:57 AM Subjective: Admit Date: 10/19/2020 PCP: LAQUITA DING, Interval History: Pt doing well post extubation. [...] Oral Daily Continuous Infusions: CBC: Recent Labs 10/30/2033710/31/2033611/01/20257 WBC 11.7* 9.7 8.5 HGB 10.9* 10.2* 10.4* PLT 300 316 321 BMP: Recent Labs 10/30/2033710/31/2033611/01/20257 NA 138 140 140 K 4.1 4.5 3.9 CL 103 106 107 CO2 32* 31* 30 BUN 32* 38* 36* CREATININE 0.63 0.69 0.65 GLUCOSE 143* 135* 130* Hepatic: Recent Labs 10/30/2033710/31/2033611/01/20 025 AST 64* 86* 111* ALT 73* 117* [...] Conjunctiva []Injected [x]Non-Injected Pinnae [x]Normal []Other Dentitian [x][place] []Dentures []Poor dentition []Edentulous Oral Mucosa [x]Lowpoint [x]Moist []Dry Oral ETT []Present [x]Absent Neck: [...] ([x]RUE [x]RLE [x]LUE [x]LLE) Generalized weakness Neurologic: [place] []Yes [x]No Corneal reflexes []Present []Absent Plantar [...] tract symptoms Syncope SVT (supraventricular tachycardia) ([facility]) Pneumonia due to COVID-19 virus ARDS (adult respiratory distress syndrome) ([facility]) DEMETRIA ALFORD MD * Joel De León RCP - 10/31/2020 11:48 PM EST Patient Evaluation [...] Elliott RCP - 10/31/2020 9:32 AM EST [facility] Respiratory Care Department Progress Note Spontaneous Breathing [...] Conjunctiva []Injected [x]Non-Injected Pinnae [x]Normal []Other Dentitian [x][place] []Dentures []Poor dentition []Edentulous Oral Mucosa [x]Lowpoint []Moist []Dry Oral ETT [x]Present []Absent Neck: [...] sec CORDOVA ([x]RUE [x]RLE [x]LUE [x]LLE) Neurologic: [place] []Yes [x]No Corneal reflexes []Present []Absent Plantar reflexes []Up []Down []Absent Withdraws to tactile []Yes []No Follows Commands [x]Yes []No []Unresponsive to verbal []Cranial nerves grossly intact []Sensation grossly intact Psych: Alert [x]yes []no Oriented []x0 []x1 []x2 []x3 Affect []Normal []Flat []Agitated [x]Anxious at times []Calm []Sedated []NAD BMP: Recent Labs 10/29/2035010/30/2033710/31/20336 NA 139 138 140 K 4.2 4.1 4.5 CL 107 103 106 CO2 28 32* 31* BUN 31* 32* 38* CREATININE 0.60 0.63 0.69 GLUCOSE 118* 143* 135* . Ionized Calcium: Lab Results Component Value Date IONCA 4.50 10/31/2020 IONCA 4.40 10/30/2020 Hepatic: Recent Labs 10/30/2033710/31/20336 AST 64* 86* ALT 73* 117* BILITOT 0.8 0.7 ALKPHOS 82 70 ABG: Recent Labs 10/31/20423 PHART 7.458* PO2ART 89.7 WGO8LHL 38.8 EHU1NTF 27.4* BEART 3.4* J8GFYLEP 97.4 CBC: Recent Labs 10/30/2033710/31/20336 WBC 11.7* 9.7 HGB 10.9* 10.2* PLT 300 316 Cultures: No results found for: BC Lab Results Component Value Date RESPCULTURE Few normal respiratory yolanda. 10/24/2020 RESPCULTURE Streptococcus pneumoniae 10/24/2020 RESPCULTURE Moderate 10/24/2020 Films: CXR portable: Results for orders placed during the hospital encounter of 10/19/20 XR CHEST PORTABLE Narrative Patient Name: JOSEPH BROWN [facility]#: [id number] Diagnostic Radiology ACCESSION EXAM DATE/TIME PROCEDURE ORDERING PROVIDER [id number] 10/29/2020 05:58 EST CR Chest Portable AMARILIS LUKE, ABIEL Dunbar CPT code 69707 Reason For Exam (CR Chest Portable) pneumonia [...] tract symptoms Syncope SVT (supraventricular tachycardia) ([facility]) Pneumonia due to COVID-19 virus ARDS (adult respiratory distress syndrome) ([facility]) Assessment and Plan: 1. Respiratory failure: Covid, [...] to preserve PPE for other caregivers, a heiv-eb-[id number] encounter with the patient was not performed. Estimated Daily Nutrient Needs: Energy (kcal): 1200- 1525; Weight Used for Energy Requirements: Current Protein (g): 81-115; Weight Used for Protein Requirements: English(1-1.4) Fluid (ml/day): per md; Method Used for [...] Usual Body Weight: 240 lb (108.9 kg) English Body Weight: 178 lbs; % English Body Weight 134.8 % BMI: 32.5 Adjusted [...] Conjunctiva []Injected [x]Non-Injected Pinnae [x]Normal []Other Dentitian [x][place] []Dentures []Poor dentition []Edentulous Oral Mucosa [x]Lowpoint [x]Moist []Dry Oral ETT [x]Present []Absent Neck: [...] sec CORDOVA ([x]RUE [x]RLE [x]LUE [x]LLE) Neurologic: [place] []Yes [x]No Corneal reflexes []Present []Absent Plantar reflexes []Up []Down []Absent Withdraws to tactile []Yes []No Follows Commands [x]Yes []No []Unresponsive to verbal []Cranial nerves grossly intact []Sensation grossly intact Psych: Alert [x]yes []no Oriented []x0 []x1 []x2 []x3 Affect []Normal []Flat []Agitated []Anxious []Calm []Sedated []NAD BMP: Recent Labs 10/28/2035510/29/2035010/30/20337 NA 140 139 138 K 4.2 4.2 4.1 CL 106 107 103 CO2 28 28 32* BUN 32* 31* 32* CREATININE 0.64 0.60 0.63 GLUCOSE 146* 118* 143* . Ionized Calcium: Lab Results Component Value Date IONCA 4.40 10/30/2020 IONCA 4.50 10/29/2020 Hepatic: Recent Labs 01/14/21 0351 01/15/21 0338 AST 53* 64* ALT 49 73* BILITOT 0.7 0.8 ALKPHOS 68 82 ABG: Recent Labs 10/30/20 0335 PHART 7.465* PO2ART 65.9* ERZ7WPJ 38.4 SXR1KVB 27.6* BEART 3.7* U9TAKCKN 93.9* CBC: Recent Labs 10/29/20 0351 10/30/20 0338 WBC 10.4 11.7* HGB 10.7* 10.9* PLT 278 300 Films: CXR portable: Results for orders placed during the hospital encounter of 10/19/20 XR CHEST PORTABLE Narrative Patient Name: JOSEPH BROWN Diagnostic Radiology ACCESSION EXAM DATE/TIME PROCEDURE ORDERING PROVIDER [id number] 10/29/2020 05:58 EST CR Chest Portable AMARILIS LUKE JEFFREY A CPT code 54283 Reason For Exam (CR Chest Portable) pneumonia [...] (HCC) Assessment and Plan: 1. Respiratory Failure: Covid, [...] Sola Martinez - 10/29/2020 9:10 AM EST Tiff Almaz ( Trust Manager) and I spoke with dispatcher Jose Abbott regarding Echo ordered for patient. Patient COVID +. Contacted Dr. Dietrich who said did handheld beside Echo and Echo ordered was not needed. Per Dr. Dietrich ok to discontinue order. Jose Astorga - 10/29/2020 8:[address] Dietrich (VIA [facility] on 10.29.20) regarding ECHO order due to PT COVID positive testob 10.19.20. Dr. Dietrich informed no need for ECHO due to physician check with hand held ECHO machine and ECHO Order from 10.24.20 can be cancel. Demetria Villavicencio MD - 10/29/2020 7:20 AM EST Critical [...] - 10/29 0700 In: 1385.4 [I.V.:932.4] Out: 1864 [Urine:1864] CVP: Invasive Lines: PICC D# CVC [...] Conjunctiva []Injected [x]Non-Injected Pinnae [x]Normal []Other Dentitian [x][place] []Dentures []Poor dentition []Edentulous Oral Mucosa [x]Lowpoint [x]Moist []Dry Oral ETT [x]Present []Absent Neck: [...] sec CORDOVA ([x]RUE [x]RLE [x]LUE [x]LLE) Neurologic: [place] []Yes [x]No Corneal reflexes []Present []Absent Plantar [...] Recent Labs 10/29/20355 PHART 7.449 PO2ART 69.0* SSC5WVX 39.1 RRJ7VBY 27.1* BEART 2.9 W8AYDAAM 94.3* CBC: Recent Labs 10/28/2034910/29/20350 WBC 8.0 10.4 HGB 10.7* 10.7* PLT 235 278 PROCALCITONIN: Recent Labs 10/27/20331 PROCAL 0.17* Films: CXR portable: Results for orders placed during the hospital encounter of 10/19/20 XR CHEST PORTABLE Narrative Patient Name: JOSEPH BROWN Diagnostic Radiology ACCESSION EXAM DATE/TIME PROCEDURE ORDERING PROVIDER [id number] 10/29/2020 05:58 EST CR Chest Portable AMARILIS LUKE JEFFREY A CPT code 38073 Reason For Exam (CR Chest Portable) pneumonia [...] infiltrates are present. 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 Respiratory Failure: Covid [...] Conjunctiva []Injected [x]Non-Injected Pinnae [x]Normal []Other Dentitian [x][place] []Dentures []Poor dentition []Edentulous Oral Mucosa [x]Lowpoint [x]Moist []Dry Oral ETT [x]Present []Absent Neck: [...] sec CORDOVA ([x]RUE [x]RLE [x]LUE [x]LLE) Neurologic: [place] []Yes [x]No Corneal reflexes []Present []Absent Plantar reflexes []Up []Down []Absent Withdraws to tactile [x]Yes []No Follows Commands []Yes [x]No []Unresponsive to verbal []Cranial nerves grossly intact []Sensation grossly intact Psych: Alert []yes [x]no Oriented []x0 []x1 []x2 []x3 Affect []Normal []Flat []Agitated []Anxious []Calm [x]Sedated []NAD BMP: Recent Labs 10/26/20 0406 10/27/20 0332 10/28/20 0356 NA 137 139 140 K 3.9 4.3 4.2 CL 102 104 106 CO2 31* 31* 28 BUN 34* 30* 32* CREATININE 0.66 0.62 0.64 GLUCOSE 189* 126* 146* . Ionized Calcium: Lab Results Component Value Date IONCA 4.40 10/28/2020 IONCA 4.40 10/27/2020 Hepatic: Recent Labs 10/27/20 0332 10/28/20355 AST 41 45 ALT 29 40 BILITOT 0.7 0.6 ALKPHOS 61 64 ABG: Recent Labs 10/28/20352 PHART 7.455* PO2ART 66.3* YAU7QBF 38.5 JAJ8NSS 27.1* BEART 3.0 H8EATVBV 93.8* CBC: Recent Labs 10/27/20 0332 10/28/20 0350 WBC 7.2 8.0 HGB 10.5* 10.7* PLT 245 235 PROCALCITONIN: Recent Labs 10/27/20331 PROCAL 0.17* Films: CXR portable: Results for orders placed during the hospital encounter of 10/19/20 XR CHEST PORTABLE Narrative Patient Name: JOSEPH BROWN Diagnostic Radiology ACCESSION EXAM DATE/TIME PROCEDURE ORDERING PROVIDER [id number] 10/27/2020 05:35 EST CR Chest Portable MD ALFORD JAMES A CPT code 68998 Reason For Exam (CR Chest Portable) pneumonia, [...] tract symptoms Syncope SVT (supraventricular tachycardia) ([facility]) Pneumonia due to COVID-19 virus ARDS (adult respiratory distress syndrome) ([facility]) Assessment and Plan: 1. Respiratory Failure: Covid [...] assess Fluid Accumulation: No significant fluid accumulation Closing Supervisor Strength: Not Performed Estimated Daily Nutrient Needs: Energy (kcal): 1200- 1525; Weight Used for Energy Requirements: Current Protein (g): 81-115; Weight Used for Protein Requirements: English(1-1.4) Fluid (ml/day): per md; Method Used for [...] Usual Body Weight: 240 lb (108.9 kg) English Body Weight: 178 lbs; % English Body Weight 134.8 % BMI: 32.5 Adjusted [...] Oral Daily Continuous Infusions: propofol 40 mcg/kg/min (10/27/20640) fentaNYL 70 mcg/hr (10/27/20615) Objective: Vitals: Temp (24hrs), Av.9 F (37.2 [...] 92 % Max: 99 % I/O: 10/26 0701 - 10/27 07 In: 4082.1 [I.V.:1101.1] Out: 1879 [Urine:1879] CVP: [...] Conjunctiva []Injected [x]Non-Injected Pinnae [x]Normal []Other Dentitian [x][place] []Dentures []Poor dentition []Edentulous Oral Mucosa [x]Lowpoint [x]Moist []Dry Oral ETT [x]Present []Absent Neck: [...] sec CORDOVA ([x]RUE [x]RLE [x]LUE [x]LLE) Neurologic: [place] []Yes [x]No Corneal reflexes []Present []Absent Plantar reflexes []Up []Down []Absent Withdraws to tactile [x]Yes []No Follows Commands []Yes [x]No []Unresponsive to verbal []Cranial nerves grossly intact []Sensation grossly intact Psych: Alert []yes []no Oriented []x0 []x1 []x2 []x3 Affect []Normal []Flat []Agitated []Anxious []Calm [x]Sedated []NAD BMP: Recent Labs 10/25/20 0430 10/26/20 0406 10/27/20 0332 NA 137 137 139 K 3.9 3.9 4.3 CL 102 102 104 CO2 31* 31* 31* BUN 32* 34* 30* CREATININE 0.74 0.66 0.62 GLUCOSE 153* 189* 126* . Ionized Calcium: Lab Results Component Value Date IONCA 4.40 10/27/2020 IONCA 4.40 10/26/2020 Hepatic: Recent Labs 10/26/20 0406 10/27/20 0332 AST 36 41 ALT 23 29 BILITOT 0.6 0.7 ALKPHOS 59 61 ABG: Recent Labs 10/27/20 0436 PHART 7.455* PO2ART 70.2* ONZ4CBT 39.5 BEC4OAU 27.7* BEART 3.6* S0GIDZLF 94.7* CBC: Recent Labs 10/26/20 0406 10/27/20 0332 WBC 7.1 7.2 HGB 9.7* 10.5* PLT 190 245 Recent Labs 10/24/202024 LABGRAM Moderate polymorphonuclear cells/lpf. Few epithelial cells/lpf. Many gram positive cocci in pairs and chains. Films: CXR portable: Results for orders placed during the hospital encounter of 10/19/20 XR CHEST PORTABLE Narrative Patient Name: JOSEPH BROWN Diagnostic Radiology ACCESSION EXAM DATE/TIME PROCEDURE ORDERING PROVIDER [id number] 10/27/2020 05:35 EST CR Chest Portable MD ALFORD JAMES A CPT code 54413 Reason For Exam (CR Chest Portable) pneumonia, [...] bilateral ill-defined infiltrates. 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 Respiratory Failure: Covid, [...] 11:51 AM Subjective: Admit Date: 10/19/2020 PCP: LAQUIAT DING DO Chief Complaint Patient presents with [...] Daily Continuous Infusions: propofol 50 mcg/kg/min (10/26/20 030) fentaNYL 60 mcg/hr (10/26/20 040) Objective: Vitals: Temp (24hrs), Av.7 F (37.1 [...] Conjunctiva []Injected [x]Non-Injected Pinnae [x]Normal []Other Dentitian [x][place] []Dentures []Poor dentition []Edentulous Oral Mucosa [x]Lowpoint [x]Moist []Dry Oral ETT []Present [x]Absent Neck: [...] sec CORDOVA ([x]RUE [x]RLE [x]LUE [x]LLE) Neurologic: [place] []Yes [x]No Corneal reflexes []Present []Absent Plantar [...] Labs 10/25/20 2327 PHART 7.493* PO2ART 66.0* CLM5GNO 33.6* UZK3NXT 25.8* BEART 2.7 I5ROZJYB 94.5* CBC: Recent Labs 10/25/20 0430 10/26/20 [...] Radiology ACCESSION EXAM DATE/TIME PROCEDURE ORDERING PROVIDER [id number] 10/24/2020 05:26 EST CR Chest Portable ACIERNO, DRAWING HAND, PILAR A CPT code 41313 Reason For Exam (CR Chest Portable) Line [...] tract symptoms Syncope SVT (supraventricular tachycardia) ([facility]) Pneumonia due to COVID-19 virus ARDS (adult respiratory distress syndrome) ([facility]) Assessment and Plan: 1. Respiratory Failure: Covid [...] 10/19/2020 PCP: LAQUITA DING DO Interval History: SpO2 and pO2 low/stable on [...] 10/24 0701 - 10/25 07 In: 2168 [I.V.:2043] Out: 3590 [Urine:3530] CVP: Invasive Lines: CVC [...] []Injected []Non-Injected / Pinnae []Normal []Other/ Dentitian [][place] []Dentures Oral Mucosa []Lowpoint []Moist []Dry/ Oral ETT []Present []Absent Neck: [...] []Absent/ CORDOVA ([]RUE []RLE []LUE []LLE) Neurologic: [place] []Yes []No Corneal reflexes []Present []Absent / [...] 4.40 10/24/2020 Hepatic: Recent Labs 10/24/20 0505 10/25/20429 AST 54* 41 ALT 35 25 BILITOT 1.3 1.0 ALKPHOS 81 72 Troponin: No results for input(s): TROPONINI in the last 72 hours. Lactate: No results found for: LACTA ABG: Recent Labs 10/24/20 0505 10/25/20429 PH 7.28* 7.47* CBC: Recent Labs 10/24/20 0505 10/25/20429 WBC 9.2 10.0 HGB 11.9* 11.1* PLT 199 224 PROCALCITONIN: Recent Labs 10/24/20504 PROCAL 0.35* Recent Labs 10/24/202024 LABGRAM Moderate polymorphonuclear cells/lpf. Few epithelial cells/lpf. Many gram positive cocci in pairs and chains. Films: CXR portable: Results for orders placed during the hospital encounter of 10/19/20 XR CHEST PORTABLE Narrative [facility]: [id number] Radiology ACCESSION EXAM DATE/TIME PROCEDURE ORDERING PROVIDER [id number] 10/24/2020 05:26 EST CR Chest Portable ACMIRA, AMARILIS, PILAR A CPT code 26197 Reason For Exam (CR Chest Portable) Line [...] * RECOMMENDATIONS: I performed a bedside hand-held evsqh-ku-quqy echocardiogram which showed normal RV and LV [...] Continuous Infusions: cisatracurium (NIMBEX) infusion 3 mcg/kg/min (10/24/20 0632) propofol 30 mcg/kg/min (10/24/205) dexmedetomidine Stopped (10/24/20 06) Objective: Vitals: Temp (24hrs), Av.2 F (37.3 [...] []Injected [x]Non-Injected / Pinnae [x]Normal []Other/ Dentitian [x][place] []Dentures Oral Mucosa [x]Lowpoint [x]Moist []Dry/ Oral ETT [x]Present []Absent Neck: [...] Extremities: Cyanosis []Present [x]Absent/ No clubbing Neurologic: [place] []Yes []No Corneal reflexes []Present [x]Absent / [...] Radiology ACCESSION EXAM DATE/TIME PROCEDURE ORDERING PROVIDER [id number] 10/24/2020 05:26 EST CR Chest Portable ACIERNO, DRAWING HAND, PILAR A CPT code 97780 Reason For Exam (CR Chest Portable) Line [...] []Injected [x]Non-Injected / Pinnae [x]Normal []Other/ Dentitian [][place] []Dentures Oral Mucosa [x]Lowpoint [x]Moist []Dry/ Oral ETT [x]Present []Absent Neck: [...] [x]Absent/ CORDOVA ([x]RUE [x]RLE [x]LUE [x]LLE) Neurologic: [place] []Yes [x]No Corneal reflexes []Present []Absent / Plantar reflexes []Up []Down []Absent / Withdraws to tactile [x]Yes []No/ Follows Commands [x]Yes []No []Unresponsive to verbal Psych: Alert [x]yes []no Oriented []x0 []x1 []x2 []x3 / Affect +restless BMP: Recent Labs 10/21/2040610/22/2033710/23/20426 NA 136 138 138 K 5.0 4.8 [...] the last 72 hours. CBC: Recent Labs 10/22/2033710/23/20426 WBC 7.8 9.0 HGB 11.4* 12.5* PLT 264 314 Films: CXR portable: Results for orders placed during the hospital encounter of 10/19/20 XR CHEST PORTABLE Narrative [facility]: [id number] Diagnostic Radiology ACCESSION EXAM DATE/TIME PROCEDURE ORDERING PROVIDER [id number] 10/19/2020 09:34 EST CR Chest Portable [id number] -CANDELARIO LOMELI CPT code 42668 Reason For Exam (CR Chest Portable) COVID [...] Heparin [] SCD Full Code * Malorie Cho, AUGUSTUS, LD - 10/23/2020 3:17 PM EST Comprehensive [...] assess Fluid Accumulation: No significant fluid accumulation Closing Supervisor Strength: Not Performed Estimated Daily Nutrient Needs: Energy (kcal): 9098-0500; Weight Used for Energy Requirements: Current Protein (g): 81-115; Weight Used for Protein Requirements: English Fluid (ml/day): ; Method Used for Fluid Requirements: 1 ml/kcal Nutrition Related Findings: no edema, strong tank filler, 10/13 bm -ongoing nausea,alb 3.1, glu 161, vit d23, d- dimer 35.2,ferritin 552, neg 1.5 liters Wounds: None(db 19) Current Nutrition Therapies: DIET GENERAL; Dietary Nutrition Supplements: Clear Liquid Oral Supplement Anthropometric Measures: Height: 6' (182.9 cm) Current Body Weight: 240 lb (108.9 kg) Admission Body Weight: Usual Body Weight: 240 lb (108.9 kg) English Body Weight: 178 lbs; % English Body Weight 134.8 % BMI: 32.5 Adjusted [...] []Injected [x]Non-Injected / Pinnae [x]Normal []Other/ Dentitian [][place] []Dentures Oral Mucosa [x]Lowpoint [x]Moist []Dry/ Oral ETT []Present [x]Absent Neck: [...] [x]Absent/ CORDOVA ([x]RUE [x]RLE [x]LUE [x]LLE) Neurologic: [place] []Yes [x]No Corneal reflexes []Present []Absent / Plantar reflexes []Up []Down []Absent / Withdraws to tactile [x]Yes []No/ Follows Commands [x]Yes []No []Unresponsive to verbal Psych: Alert [x]yes []no Oriented []x0 []x1 []x2 []x3 / Affect []Normal []Flat []Aggitated []Calm []Sedated [x]NAD BMP: Recent Labs 10/20/2032410/21/2040610/22/20 0338 NA 137 136 138 K 4.3 5.0 4.8 CL 103 106 106 CO2 27 25 26 BUN 24* 25* 24* CREATININE 0.90 0.68 0.60 GLUCOSE 148* 148* 161* . Ionized Calcium: No results found for: IONCA Hepatic: Recent Labs 10/21/20 04010/22/20 0338 AST 37 44 ALT 24 30 BILITOT 0.8 0.6 ALKPHOS 58 58 Troponin: Recent Labs 10/19/20 1709 10/19/20 2047 TROPONINI 0.726* 0.601* CBC: Recent Labs 10/21/2040610/22/20 0338 WBC 7.7 7.8 HGB 11.2* 11.4* PLT 277 264 PROCALCITONIN: Recent Labs 10/20/20 0325 PROCAL 0.23* Films: CXR portable: Results for orders placed during the hospital encounter of 10/19/20 XR CHEST PORTABLE Narrative Patient Name: JOSEPH BROWN Diagnostic Radiology ACCESSION EXAM DATE/TIME PROCEDURE ORDERING PROVIDER [id number] 10/19/2020 09:34 EST CR Chest Portable [id number] -CANDELARIO LOMELI CPT code 88403 Reason For Exam (CR Chest Portable) COVID [...] Q24H Continuous Infusions: dexmedetomidine 0.5 mcg/kg/hr (10/21/20 0633) Objective: Vitals: Temp (24hrs), Av.4 F (36.9 C), Min:97.7 F (36.5 C), Max:99.4 F (37.4 C) BP 109/68 Pulse 65 Temp 97.7 F (36.5 C) (Axillary) Resp 22 Ht 6' (1.829 m) Wt 240 lb (108.9 kg) SpO2 90% BMI 32.55 kg/m I/O: 10/20 0701 - 10/21 0700 In: 330 [P.O.:310; I.V.:20] Out: 725 [Urine:725] CVP: Physical Exam General Appearance: [x]WDWN []Obese []Cachectic []Thin []ill Skin: Temperature [x]Warm []Cool / Rash []Yes [x]No / Tattoo(s) []Yes []No Heent: Pupils round and react [x]Yes []No Sclera []Icteric [x]Non-Icteric Conjunctiva []Injected [x]Non-Injected / Pinnae [x]Normal []Other/ Dentitian [][place] Teeth []Dentures Oral Mucosa [x][place] [x]Moist []Dry/ Oral ETT []Present [x]Absent Neck: [...] [x]Absent/ CORDOVA ([x]RUE [x]RLE [x]LUE [x]LLE) Neurologic: [place] []Yes [x]No Corneal reflexes []Present []Absent / [...] Troponin: Recent Labs 10/19/20 1355 10/19/20 1709 10/19/20 2047 TROPONINI 0.922* 0.726* 0.601* Lactate: No results found for: LACTA ABG: No results for input(s): PH, PCO2, PO2 in the last 72 hours. CBC: Recent Labs 10/20/20 0325 10/21/20 0407 WBC 11.1* 7.7 HGB 12.4* 11.2* PLT 237 277 PROCALCITONIN: Recent Labs 10/20/20 032 PROCAL 0.23* Films: CXR portable: Results for orders placed during the hospital encounter of 10/19/20 XR CHEST PORTABLE Narrative [id number]iology ACCESSION EXAM DATE/TIME PROCEDURE ORDERING PROVIDER [phone] 10/19/2020 09:34 EST CR Chest Portable [id number] -CANDELARIO LOMELI CPT code 81812 Reason For Exam (CR Chest Portable) COVID [...] Therapy to QID and PRN * Christina Prabhakar, AUGUSTUS, LD - 10/20/2020 4:01 PM EST Comprehensive [...] assess Fluid Accumulation: No significant fluid accumulation Closing Supervisor Strength: Not Performed Estimated Daily Nutrient Needs: Energy (kcal): 1845-3731; Weight Used for Energy Requirements: Current Protein (g): 81-115; Weight Used for Protein Requirements: English Fluid (ml/day): ; Method Used for Fluid Requirements: 1 ml/kcal Nutrition Related Findings: Nausea; hyperactive BS; no edema; skin WDL Wounds: None Current Nutrition Therapies: DIET CLEAR LIQUID; Anthropometric Measures: Height: 6' (182.9 cm) Current Body Weight: 240 lb (108.9 kg) Admission Body Weight: Usual Body Weight: 240 lb (108.9 kg) English Body Weight: 178 lbs; % English Body Weight 134.8 % BMI: 32.5 Adjusted [...] Pelaez MD - 10/19/2020 10:52 AM EST [facility] - Infectious Diseases Attending COVID-19 Therapeutic [...] to preserve PPE for other caregivers, a [id number] encounter with the patient was not performed. [...] expectations, medication plan. Jerardo Pelaez MD, FACP, FIDSA P [phone] documented in this encounter Reason for Referral Status Reason Specialty Diagnoses / Procedures Referre d By Contact Referred To Contact Closed Cardiology Diagnoses SVT (supraventricular tachycardia) (HCC) Procedures ECHO Complete 2D W Doppler W Color Venkat Grant MD [address] [id number] Summary Purpose Family History No Family History Records Found Relationship Condition Age at Onset Recorded Date/T lauri mother Coronary artery disease Unknown Arthritis Unknown Chief Complaint and Reason for Visit Chief Complaint Admit Date PRE OP LABS June 25, 2025 11:54am OTHER CHRONIC SINUSITIS July 01, 2025 3:16pm SYNCOPE July 04, 2025 9:41am Additional Source Comments Reason for Visit (unrecogniz [...] Specialty Diagnoses / Procedures Referred By Baldomero t Referred To Contact Diagnoses Dizziness Procedures r42 Julian Marmolejo MD [address] [place] [address] Phone: tel: fax: [facility] [address] [place] [address] Phone: tel: Referral ID Status Reason Start Date Expiration Date Visits Re quested Visits Authorized 1 1 Reason Comments Finger Laceration Pt arrived to triage for a laceration to right thumb. Pt states he was fixing a picture frame and cut himself on the tin. Bleeding under control at this time Reason Onset Date Comments Abscess 08/13/2025 Ordered Prescriptions (unrec ognized section and content) [...] Care Teams (unrecognized sec tion and content) Application Spec Relationship Specialty Start Date End Date Laquita Ding, [address] [facility] [place] [address] PCP - General 06/04/19 Application Spec Relationship Specialty Start Date End Date Laquita Ding DO [address] [facility] [address] [place] [id number] PCP - General 03/16/20 Application Spec Relationship Specialty Start Date End Date Laquita Ding DO PCP - General 03/16/20 Application Spec Relationship Specialty Start Date End Date Laquita Ding DO PCP - General 03/16/20 Application Spec Relationship Specialty Start Date End Date Laquita Ding DO PCP - General 03/16/20 Team Status: Active Member Role/Relationship Status Dates Dr. Sherice العلي MD Primary care physician Active Team Status: Inactive Member Role/Relationship Status Dates TIMUR WALDRON Primary care physician Active Start : June 25, 2025 End: June 25, 2025 Dr. Haresh Johnson MD Attending physician Acti ve Start: June 25, 2025 End: June 25, 2025 Dr. Haresh Johnson MD Referring Provider Activ e Start: June 25, 2025 End: June 25, 2025 Team Status: Inactive Member Role/Relationship Status Dates TIMUR WALDRON Primary care physician Active Start : July 01, 2025 End: July 01, 2025 Dr. Haresh Johnson MD Attending physician Acti ve Start: July 01, 2025 End: July 01, 2025 Dr. Haresh Johnson MD Referring Provider Activ e Start: July 01, 2025 End: July 01, 2025 Team Status: Inactive Member Role/Relationship Status Dates Lawrence Abad MD Attending physician Active Sta rt: July 04, 2025 End: July 04, 2025 Lawrence Abad MD Emergency Department Physician Active Start: July 04, 2025 End: July 04, 2025 Dr. Sherice العلي MD Primary care physician Active Start: July 04, 2025 End: July 04, 2025 Application Spec Relationship Specialty Start Date End Date Laquita Ding DO PCP - General 03/16/20 (unrecognized sect ion and content) No Status Records FoundNo Status Records FoundNo Status Records FoundNo Status Records FoundNo Status Records Found INFORMATION SOURCE (unrecogn ized section and content) DATE CREATED AUTHOR 09/01/2021 [employer] DATE CREATED AUTHOR AUTHOR'S ORGANIZ ATION 11/10/[address] [facility] [employer] DATE CREATED AUTHOR AUTHOR'S ORGANIZ ATION 06/22/2025 [facility] DATE CREATED AUTHOR AUTHOR'S ORGANIZ ATION 07/11/2025 [facility] DATE CREATED AUTHOR AUTHOR'S ORGANIZ ATION 08/15/[address] [facility] [employer] [facility] Scheduled Active and Recently Administ ered Medications [...] Lizarraga RN) 817 (Given - Provider: Ck Ferrera, LINDA) aspirin suppository 300 mg(Linked Group 1) 300 mg, Rectal, Daily, First dose (after last modification) on Mon05/21/25 at 2130, Do NOT administer if bleed present on follow up CT-Head. Use suppository if NPO or failed swallow screen. 2143 (See Alternative - Provider: Seema Lizarraga RN) 817 (See Alternative - Provider: Ck FerreraLINDA) atorvastatin (Lipitor) tablet 40 mg 40 mg, [...] Use: Prophylaxis-DVT/PE, Indications: Prophylaxis of Venous Thromboembolism 0818 (Given - Provid er: Ck Ferrera RN) [...] 2130 2145 (New Bag - Provider: Seema Lizarraga, LINDA)2346 (Stopped - Provider: Seema Lizarraga RN - [...] Automatically canceled at discontinue of medication order) Goals (unrecognized section and content) Goals may be documented in a n alternate sectionGoals may be documented in an alternate sectionGoals may be documented in an alternate section FOR RECORDS PERTAINING TO PATIENTS WHO ARE [...] BE BASED ON THE PRIMARY CLINICAL RECORDS. [employer] provides no warranty or guarantee of the accuracy or completeness of information in this document.
[2025-08-16] MEDS: Lidocaine 1% (20 ml mdv) 20 ML Vial 10 ML INFILT (13:27)
[2025-08-16 13:41] LABS: Hematocrit 40.0 % (40-54); Hemoglobin 13.3 g/dL (13.0-16.5); Immature Granulocytes Count 0.060 X10^3/uL (0.0-0.0); Mean Corp Hgb Conc 33.3 g/dL (32-36); Mean Corpuscular Volume 91.3 fL (80-94); Mean Platelet Vol. 9.9 fl (6.2-12.0); NRBC Flagged by Analyzer 0 % (0-5); Platelet Count 239 K/mm3 (150-450); RBC Distribution Width CV 13.6 % (11.6-14.6); RBC Distribution Width SD 46.3 fl (35.1-43.9); Red Blood Count 4.38 M/mm3 (4.6-6.2); White Blood Count 14.6 K/mm3 (4.4-11.0)
--- NOTE | 2025-08-16 13:48 | CT_ITS ---
PROCEDURE: PELVIS WITH IV CONTRAST 08/16/2025 REASON FOR EXAM: LEFT HIP/BUTTOCK SUBCU ABSCESS TECHNIQUE: Procedure Code: CTPELW Modality: CT Procedure: PELVIS WITH IV CONTRAST CONTRAST: Isovue 370 VOLUME: 99 mL RADIATION DOSE SUMMARY: CTDlvol: 63 mGy DLP: 2283 mGycm COMPARISON: None FINDINGS: Bladder: Normal Ureters: Distal ureters appear unremarkable. Prostate: Normal Bowel: Partially imaged small bowel, colon appears normal. Appendix: The appendix is not identified. There is no inflammatory process identified in the right lower quadrant to suggest appendicitis. Lymph nodes: None appear enlarged Vasculature: Severe atherosclerotic plaque without aneurysm. Peritoneum / Retroperitoneum: No free air, free fluid or mass. Bones: Posterior fusion L4 through S1. Disc spacers L4/5 and L5/S1. Laminectomy lower lumbar spine. Skin thickening and infiltration of the skin overlying the left buttock. No fluid collection/abscess. CT/Pelvis WITH IV Contrast IMPRESSION: 1. Skin thickening, infiltration of the subcutaneous soft tissues overlying th e left buttock. No abscess. Consider cellulitis. Reading Location: [id number]
[2025-08-16 14:01] LABS: Anion Gap 11 (5-15); BUN 22 mg/dL (4-19); BUN/Creat Ratio 18.8 RATIO (10-20); Calcium,Total 8.8 mg/dL (7.6-11.0); Carbon Dioxide 22.2 mmol/L (21.0-32.0); Chloride 105 mmol/L (98-108); Estimated Creatinine Clearance 73.47 ml/min (50-250); Glucose 100 mg/dL (70-99); Potassium 4.1 mmol/L (3.3-5.1)
[2025-08-16] MEDS: Ampicillin/Sulbactam 3 GM in 0.9% Normal Saline (100mL MB+) 100 ML IV ×2 (14:08→21:17)
--- NOTE | 2025-08-16 14:16 | ED.RN ---
pt notified RN of R sided rib pain after CT scan. Informed Dr. Castanon, no new orders at this time.
--- OUTSIDE RECORDS SUMMARY | 2025-08-16 15:14 | XMS RPT_ITS | CCD ---
Author Organization [facility] Care Team Providers Care Special Machine Stitcher Name Role Phone Laquita Ding Primary Care Provider Lawrence Abad Attending Unavailable Sherice العلي Primary Care Unavailable Haresh Johnson Referring Haresh Bah Attending RYAN Rhoades Primary Care Unavailable Haresh Johnson Attending RYAN Rhoades Primary Care Unavailable Haresh Johnson Referring LAQUITA March Primary Care Physician Alex KATZ, Dr. uHtson Attending Physician Dr. Haresh Johnson MD Referring Provider Lawrence Abad MD Attending Physician [phone] Lawrence Abad MD Emergency Department Physician Severiano KATZ, Dr. Smiley Primary Care Physician Laquita Ding DO Primary Care Provider [phone] LAQUITA DING Primary Care Unavailable CYDNEY CANTU Attending Unavailable LAQIUTA DING Primary Care Unavailable MARJORIE SEARS Attending [...] tablet 650 mg 20 ml albumin human, residential 250 mg/ml injection (3 sources) Human Serum [...] 20 mg/ml oral suspension (1 source) Uncompetitive B-wmlgxu-H-aspartat e Receptor Antagonist, Sigma-1 Agonist Start: 10-19-2020 [...] dose docusate sodium 50 mg / sennosides, residential 8.6 mg oral tablet (4 sources) Start: [...] (DEFINITY) injection 0.48 mg polyethylene glycol [id number] mg powder for oral solution (3 sources) [...] ball) Protocols used: Boil (Skin Abscess)-ADULT-AH Normal [facility] Surgical pathology reportOrd ered By: Theodore Duarte Walter on 07-07-2025 Surgical pathology study [facility] 12 Lead EKGon 07-04-2025 12 Lead EKG [facility] [address] [place] [address] 12 Lead EKG 07/04/25 1010 MR#: [id number] Acct: [id number] Name: JOSEPH BROWN Rep #: [id number] : 1955 69 From: Dion Potter MD [...] ECG Confirmed by CELESTE KATZ, DION ([id number]), sound editor FELISHA DEAN ([id number]) on 07/07/2025 8:01:26 AM Referred By: Confirmed By: DION POTTER MD 07/07/25 0801 Date Dion Potter MD CC: Dr. Lawrence Abad MD; Dr. Sherice العلي MD Signed Normal [facility] Absolute lymphocyte countOrd ered By: Lawrence Abad on 07-04-2025 Lymphocytes Auto (Unsp spec) [#/Vol] 1.41 10*3/uL 0.83-4.[address] [facility] Absolute neutrophil countOrd ered By: Lawrence Abad on 07-04-2025 Neutrophils (Bld) [#/Vol] 8.4 10*3/uL High 2.0-7.[address] [facility] Anion gap in Serum or Plasma Ordered By: Lawrence Abad on 07-04-2025 Anion gap [Moles/Vol] 12 mmol/L 02-27 [facility] Automated lymphocyte count a s percentage of total leukocytesOrdered By: Lawrence Abad on 07-04-2025 Lymphocytes/100 WBC Auto (Unsp spec) 12.8 % Low [facility] BUN/creatinine ratioOrdered By: Lawrence Abad on 07-04-2025 Urea nitrogen/Creatinine [Mass ratio] 15.8 mg/mg 08-[address] [facility] Basic Metabolic Profile (BMP )on 07-04-2025 GAP 12 Normal 02-[address] [facility] Comment on above: Performed By: #### L 100.0100, L500.2500 #### [facility] Laboratory [address] [place], [address] BUN/CRE 15.8 RATIO Normal 08-[address] [facility] Comment on above: Performed By: #### L 100.0100, L500.2500 #### [facility] Laboratory [address] [place], [address] Calcium [Mass/Vol] 8.7 mg/dL Normal 7.6-11.0 [facility] Comment on above: Performed By: #### L 100.0100, L500.2500 #### [facility] Laboratory [address] [place], [address] Chloride [Moles/Vol] 103 mmol/L Normal 98-108 [facility] Comment on above: Performed By: #### L 100.0100, L500.2500 #### [facility] Laboratory [address] [place], [address] CO2 [Moles/Vol] 22.3 mmol/L Normal 21.0-32.[address] [facility] Comment on above: Performed By: #### L 100.0100, L500.2500 #### [facility] Laboratory [address] [place], [address] Creatinine [Mass/Vol] 0.84 mg/dL Normal 0.70-1.20 [facility] Comment on above: Performed By: #### L 100.0100, L500.2500 #### [facility] Laboratory [address] [place], [address] ECRCL 104.58 ml/min Normal 50-[address] [facility] Comment on above: Performed By: #### L 100.0100, L500.2500 #### [facility] Laboratory [address] [place], [address] GFR/1.73 sq M.predicted among non-blacks MDRD (S/P/Bld) [Vol rate/Area] 93 mL/min/{1.73_m2} Normal >[address] [facility] Comment on above: Result Comment: mL/m in/1.73m2 CKD-EPI Creatinine Equation (2020) Performed By: #### L 100.0100, L500.2500 #### [facility] Laboratory [address] [place], [address] Glucose [Mass/Vol] 133 mg/dL High 70-99 [facility] Comment on above: Performed By: #### L 100.0100, L500.2500 #### [facility] [address] [place], [address] Potassium [Moles/Vol] 4.1 mmol/L Normal 3.3-5.1 [facility] Comment on above: Performed By: #### L 100.0100, L500.2500 #### [facility] Laboratory [address] [place], [address] Sodium [Moles/Vol] 137 mmol/L Normal 133-145 [facility] Comment on above: Performed By: #### L 100.0100, L500.2500 #### [facility] [address] [place], [address] Urea nitrogen [Mass/Vol] 13 mg/dL Normal 4-[address] [facility] Comment on above: Performed By: #### L 100.0100, L500.2500 #### [facility] Laboratory [address] [place], [address] Basophil percentageOrdered B y: Lawrence Abad on 07-04-2025 Basophils/100 WBC (Bld) 0.2 % 0-1 [facility] CBC W/Diff, Automatedon 06-16 Absolute Lymph 1.41 X10 3/uL Normal 0.83-4.[address] [facility] Comment on above: Performed By: #### L 100.0100, L500.2500 #### [facility] [address] [place], [address] Absolute Neut 8.4 X10 3/uL High 2.0-7.[address] [facility] Comment on above: Performed By: #### L 100.0100, L500.2500 #### [facility] Laboratory [address] [place], [address] Basophils/100 WBC (Bld) 0.2 % Normal 0-1 [facility] Comment on above: Performed By: #### L 100.0100, L500.2500 #### [facility] Laboratory [address] [place], [address] Eosinophils/100 WBC (Bld) 0.7 % Normal 0-[address] [facility] Comment on above: Performed By: #### L 100.0100, L500.2500 #### [facility] Laboratory [address] [place], [address] Erythrocyte distribution width (RBC) [Ratio] 13.9 % Normal 11.6-14.[address] [facility] Comment on above: Performed By: #### L 100.0100, L500.2500 #### [facility] Laboratory [address] [place], [address] Hematocrit (Bld) [Volume fraction] 40.5 % Normal 40-[address] [facility] Comment on above: Performed By: #### L 100.0100, L500.2500 #### [facility] Laboratory [address] [place], [address] Hemoglobin (Bld) [Mass/Vol] 13.4 g/dL Normal 13.0-16.[address] [facility] Comment on above: Performed By: #### L 100.0100, L500.2500 #### [facility] [address] [place], [address] IG% 0.500 Normal 0.0-0.[address] [facility] Comment on above: Result Comment: IG% - Immature Granulocytes (promyelocytes, myelocytes and metamyelocytes) > 1% indicates that a LEFT SHIFT is Present. Performed By: #### L 100.0100, L500.2500 #### [facility] Laboratory [address] [place], [address] Lymphocytes/100 WBC (Bld) 12.8 % Low 19-[address] [facility] Comment on above: Performed By: #### L 100.0100, L500.2500 #### [facility] Laboratory [address] [place], [address] MCH (RBC) [Entitic mass] 30.6 pg Normal 27.0-32.[address] [facility] Comment on above: Performed By: #### L 100.0100, L500.2500 #### [facility] Laboratory [address] [place], [address] MCHC (RBC) [Mass/Vol] 33.1 g/dL Normal 32-36 [facility] Comment on above: Performed By: #### L 100.0100, L500.2500 #### [facility] [address] [place], [address] MCV (RBC) [Entitic vol] 92.5 fL Normal 80-94 [facility] Comment on above: Performed By: #### L 100.0100, L500.2500 #### [facility] [address] [place], [address] Monocytes/100 WBC (Bld) 10.0 % Normal 0-10 [facility] Comment on above: Performed By: #### L 100.0100, L500.2500 #### [facility] Laboratory [address] [place], [address] Neutrophils/100 WBC (Bld) 75.8 % High 47-[address] [facility] Comment on above: Performed By: #### L 100.0100, L500.2500 #### [facility] Laboratory [address] [place], [address] Nucleated RBC (Bld) [#/Vol] 0 10*3/uL Normal 0-[address] [facility] Comment on above: Performed By: #### L 100.0100, L500.2500 #### [facility] Laboratory [address] [place], [address] Platelet mean volume (Bld) [Entitic vol] 10.2 fL Normal 6.2-12.[address] [facility] Comment on above: Performed By: #### L 100.0100, L500.2500 #### [facility] Laboratory [address] [place], [address] Platelets (Bld) [#/Vol] 165 10*3/uL Normal 150-[address] [facility] Comment on above: Performed By: #### L 100.0100, L500.2500 #### [facility] Laboratory [address] [place], [address] RBC (Bld) [#/Vol] 4.38 10*6/uL Low 4.6-6.2 [facility] Comment on above: Performed By: #### L 100.0100, L500.2500 #### [facility] Laboratory [address] [place], [address] RDW SD 47.4 fl High 35.1-43.[address] [facility] Comment on above: Performed By: #### L 100.0100, L500.2500 #### [facility] Laboratory [address] [place], [address] WBC (Bld) [#/Vol] 11.0 10*3/uL Normal 4.4-11.0 [facility] Comment on above: Performed By: #### L 100.0100, L500.2500 #### [facility] Laboratory [address] [place], [address] Carbon dioxide, total [Moles /volume] in Central venous bloodOrdered By: Lawrence Abad on 07-04-2025 CO2 [Moles/Vol] 22.3 mmol/L 21.0-32.[address] [facility] Chloride assayOrdered By: Cedrick Abad on 07-04-2025 Chloride [Moles/Vol] 103 mmol/L 98-108 [facility] Electrocardiogram reportOrde red By: Dion Potter on 07-04-2025 EKG study [facility] [address] [place] [address] 12 Lead EKG 07/04/25 1010 MR#: [id number] Acct: [id number] Name: JOSEPH BROWN Rep #:[id number] : [...] ECG Confirmed by DION POTTER MD ([id number]), sound editor FELISHA DEAN ([id number]) on 07/07/2025 8:01:26 AM Referred By: Confirmed By: DION POTTER MD 07/07/25 0801 Date _ Dion Potter MD CC: Dr. Lawrence Abad MD; Dr. Sherice العلي MD ~ Signed [facility] Other Emergency Department Summary on 07-04-2025 Emergency Department Summary [facility] Medical Records Department [address] [place] [address] Emergency Department Summary 07/04/25 MR#: [id number] Acct: [id number] Name: JOSEPH BROWN Rep #: [id number] : 1955 69 From: Lawrence Abad MD [...] 2 brief syncopal episodes that he had. [facility] Medical History Obstructive sleep apnea Left leg [...] out d (more content not included)... Normal [facility] Eosinophil percentageOrdered By: Lawrence Abad on 07-04-2025 Eosinophils/100 WBC (Bld) 0.7 % 0-[address] [facility] Erythrocyte distribution wid th ratioOrdered By: Lawrence Abad on 07-04-2025 Erythrocyte distribution width (RBC) [Ratio] 13.9 % 11.6-14.[address] [facility] Erythrocyte distribution wid th standard deviationOrdered By: Lawrence Abad on 07-04-2025 Erythrocyte distribution width (RBC) [Ratio] 47.4 fl High 35.1-43.[address] [facility] Glomerular filtration rate ( GFR) estimation/1.73 sq m using serum, plasma, or whole bOrdered By: Lawrence Abad on 07-04-2025 GFR/1.73 sq M.predicted among non-blacks MDRD (S/P/Bld) [Vol rate/Area] 93 mL/min/{1.73_m2} >[address] [facility] Comment on above: mL/min/1.73m2 CKD-EP I Creatinine Equation (2020) Hematocrit Auto (Bld) [Volum e fraction]Ordered By: Lawrence Abad on 07-04-2025 Hematocrit (Bld) [Volume fraction] 40.5 % 40-[address] [facility] Hemoglobin measurementOrdere d By: Lawrence Abad on 07-04-2025 Hemoglobin (Bld) [Mass/Vol] 13.4 g/dL 13.0-16.[address] [facility] Immature granulocytes/100 WB C Auto (Bld)Ordered By: Lawrence Abad on 07-04-2025 Immature granulocytes/100 WBC (Bld) 0.500 % 0.0-0.[address] [facility] Comment on above: IG% - Immature Granu locytes (promyelocytes, myelocytes and metamyelocytes) > 1% indicates that a LEFT SHIFT is Present. MCV (mean corpuscular volume ) determinationOrdered By: Lawrence Abad on 07-04-2025 MCV (RBC) [Entitic vol] 92.5 fL 80-94 [facility] Mean corpuscular hemoglobin (MCH) determinationOrdered By: Lawrence Abad on 07-04-2025 MCH (RBC) [Entitic mass] 30.6 pg 27.0-32.[address] [facility] Mean corpuscular hemoglobin concentration (MCHC) determinationOrdered By: Lawrence Abad on 07-04-2025 MCHC (RBC) [Mass/Vol] 33.1 g/dL 32-36 [facility] Mean platelet volume determi nationOrdered By: Lawrence Abad on 07-04-2025 Platelet mean volume (Bld) [Entitic vol] 10.2 fL 6.2-12.[address] [facility] Monocyte percentageOrdered B y: Lawrence Abad on 07-04-2025 Monocytes/100 WBC (Bld) 10.0 % 0-10 [facility] Neutrophil percentageOrdered By: Lawrence Abad on 07-04-2025 Neutrophils/100 WBC (Bld) 75.8 % High 47-[address] [facility] Nucleated red blood cell per centageOrdered By: Lawrence Abad on 07-04-2025 Nucleated RBC/100 WBC (Bld) [Ratio] 0 % 0-[address] [facility] Platelet countOrdered By: Cedrick Abad on 07-04-2025 Platelets (Bld) [#/Vol] 165 10*3/uL 150-[address] [facility] Potassium measurement (mass/ volume)Ordered By: Lawrence Abad on 07-04-2025 Potassium (Unsp spec) [Mass/Vol] 4.1 mmol/L 3.3-5.[address] [facility] RBC Auto (Bld) [#/Vol]Ordere d By: Lawrence Abad on 07-04-2025 RBC (Bld) [#/Vol] 4.38 10*6/uL Low 4.6-6.2 [facility] Serum creatinine measurement (mass/volume)Ordered By: Lawrence Abad on 07-04-2025 Creatinine [Mass/Vol] 0.84 mg/dL 0.70-1.20 [facility] Serum glucose measurement (m ass/volume)Ordered By: Lawrence Abad on 07-04-2025 Glucose [Mass/Vol] 133 mg/dL High 70-99 [facility] Serum or plasma calcium merlin urement (mass/volume)Ordered By: Lawrence Abad on 07-04-2025 Calcium [Mass/Vol] 8.7 mg/dL 7.6-11.0 [facility] Serum or plasma urea nitroge n measurement (mass/volume)Ordered By: Lawrence Abad on 07-04-2025 Urea nitrogen [Mass/Vol] 13 mg/dL 4-[address] [facility] Sodium levelOrdered By: Lawrence Abad on 07-04-2025 Sodium [Moles/Vol] 137 mmol/L 133-145 [facility] White blood cell (WBC) count Ordered By: Lawrence Abad on 07-04-2025 WBC (Bld) [#/Vol] 11.0 10*3/uL 4.4-11.0 [facility] Decalcification bone/plaqueo n 07-01-2025 Decalcification bone/plaque Patient Age/Sex Location Account Attending Physician JOSEPH BROWN 69/M [facility]SPEC [id number] Rita Saeed Specimen: [id number] Received: 07/01/25 Status: JAZMÍN Castillo Num: [id number] Spec Type: ETH TISS Subm Dr: Dr. [...] Entirely submitted in 1 cassette, following decalcification. [place] 07/01/2025 CPT:67738,84146 Patient Age/Sex Location Account Attending Physician JOSEPH BROWN 69/M [facility] [id number] Rita Saeed Signed (signature on file) Dr. Theodore Haider MD 07/07/25 [address] [facility] Comment on above: Performed By: #### P DEC #### [facility] Laboratory [facility] [address] [place], [place], [id number] Anion gap in Serum or Plasma Ordered By: Haresh Johnson on 06-25-2025 Anion gap [Moles/Vol] 11 mmol/L 5-15 [facility] BUN/creatinine ratioOrdered By: Haresh Johnson on 06-25-2025 Urea nitrogen/Creatinine [Mass ratio] 20.6 mg/mg High 08-[address] [facility] Basic Metabolic Profile (BMP )on 06-25-2025 BUN/CRE 20.6 RATIO High 08-[address] [facility] Comment on above: Performed By: #### L 100.0500, L500.2500 #### [facility] Laboratory [address] [place], [address] Calcium [Mass/Vol] 9.0 mg/dL Normal 7.6-11.0 [facility] Comment on above: Performed By: #### L 100.0500, L500.2500 #### [facility] Laboratory [address] [place], [address] Chloride [Moles/Vol] 106 mmol/L Normal 98-108 [facility] Comment on above: Performed By: #### L 100.0500, L500.2500 #### [facility] Laboratory [address] [place], [address] CO2 [Moles/Vol] 23.6 mmol/L Normal 21.0-32.[address] [facility] Comment on above: Performed By: #### L 100.0500, L500.2500 #### [facility] Laboratory [address] [place], [address] Creatinine [Mass/Vol] 0.86 mg/dL Normal 0.70-1.20 [facility] Comment on above: Performed By: #### L 100.0500, L500.2500 #### [facility] Laboratory [address] [place], [address] GAP 11 Normal - [facility] Comment on above: Performed By: #### L 100.0500, L500.2500 #### [facility] Laboratory [address] [place], [address] GFR/1.73 sq M.predicted among non-blacks MDRD (S/P/Bld) [Vol rate/Area] 93 mL/min/{1.73_m2} Normal >[address] [facility] Comment on above: Result Comment: mL/m in/1.73m2 CKD-EPI Creatinine Equation (2020) Performed By: #### L 100.0500, L500.2500 #### [facility] Laboratory [address] [place], [address] Glucose [Mass/Vol] 92 mg/dL Normal 70-99 [facility] Comment on above: Performed By: #### L 100.0500, L500.2500 #### [facility] Laboratory [address] [place], [address] Potassium [Moles/Vol] 4.4 mmol/L Normal 3.3-5.1 [facility] Comment on above: Result Comment: Hemo lysis present, Results??could be affected. ?? Performed By: #### L 100.0500, L500.2500 #### [facility] Laboratory [address] [place], [address] Sodium [Moles/Vol] 141 mmol/L Normal 133-145 [facility] Comment on above: Performed By: #### L 100.0500, L500.2500 #### [facility] [address] [place], [address] Urea nitrogen [Mass/Vol] 18 mg/dL Normal 4-[address] [facility] Comment on above: Performed By: #### L 100.0500, L500.2500 #### [facility] Laboratory [address] [place], [address] CBC-Complete Blood Cnt No Di ffon 06-25-2025 Erythrocyte distribution width (RBC) [Ratio] 13.7 % Normal 11.6-14.[address] [facility] Comment on above: Performed By: #### L 100.0500, L500.2500 #### [facility] Laboratory [address] [place], [address] Hematocrit (Bld) [Volume fraction] 44.1 % Normal 40-[address] [facility] Comment on above: Performed By: #### L 100.0500, L500.2500 #### [facility] Laboratory [address] [place], [address] Hemoglobin (Bld) [Mass/Vol] 14.8 g/dL Normal 13.0-16.[address] [facility] Comment on above: Performed By: #### L 100.0500, L500.2500 #### [facility] Laboratory [address] [place], [address] MCH (RBC) [Entitic mass] 30.9 pg Normal 27.0-32.[address] [facility] Comment on above: Performed By: #### L 100.0500, L500.2500 #### [facility] Laboratory [address] [place], [address] MCHC (RBC) [Mass/Vol] 33.6 g/dL Normal 32-36 [facility] Comment on above: Performed By: #### L 100.0500, L500.2500 #### [facility] Laboratory [address] [place], [address] MCV (RBC) [Entitic vol] 92.1 fL Normal 80-94 [facility] Comment on above: Performed By: #### L 100.0500, L500.2500 #### [facility] [address] [place], [address] Platelet mean volume (Bld) [Entitic vol] 10.6 fL Normal 6.2-12.[address] [facility] Comment on above: Performed By: #### L 100.0500, L500.2500 #### [facility] Laboratory [address] [place], [address] Platelets (Bld) [#/Vol] 227 10*3/uL Normal 150-[address] [facility] Comment on above: Performed By: #### L 100.0500, L500.2500 #### [facility] [address] [place], [address] RBC (Bld) [#/Vol] 4.79 10*6/uL Normal 4.6-6.2 [facility] Comment on above: Performed By: #### L 100.0500, L500.2500 #### [facility] [address] [place], [address] RDW SD 46.2 fl High 35.1-43.[address] [facility] Comment on above: Performed By: #### L 100.0500, L500.2500 #### [facility] [address] [place], [address] WBC (Bld) [#/Vol] 8.8 10*3/uL Normal 4.4-11.0 [facility] Comment on above: Performed By: #### L 100.0500, L500.2500 #### [facility] [address] [place], [address] Carbon dioxide, total [Moles /volume] in Central venous bloodOrdered By: Haresh Johnson on 06-25-2025 CO2 [Moles/Vol] 23.6 mmol/L 21.0-32.[address] [facility] Chloride assayOrdered By: Ricky Johnson on 06-25-2025 Chloride [Moles/Vol] 106 mmol/L 98-108 [facility] Erythrocyte distribution wid th ratioOrdered By: Haresh Johnson on 06-25-2025 Erythrocyte distribution width (RBC) [Ratio] 13.7 % 11.6-14.[address] [facility] Erythrocyte distribution wid th standard deviationOrdered By: Haresh Johnson on 06-25-2025 Erythrocyte distribution width (RBC) [Ratio] 46.2 fl High 35.1-43.[address] [facility] Glomerular filtration rate ( GFR) estimation/1.73 sq m using serum, plasma, or whole bOrdered By: Haresh Johnson on 06-25-2025 GFR/1.73 sq M.predicted among non-blacks MDRD (S/P/Bld) [Vol rate/Area] 93 mL/min/{1.73_m2} >[address] [facility] Comment on above: mL/min/1.73m2 CKD-EP I Creatinine Equation (2020) Hematocrit Auto (Bld) [Volum e fraction]Ordered By: Haresh Johnson on 06-25-2025 Hematocrit (Bld) [Volume fraction] 44.1 % 40-[address] [facility] Hemoglobin measurementOrdere d By: Haresh Johnson on 06-25-2025 Hemoglobin (Bld) [Mass/Vol] 14.8 g/dL 13.0-16.[address] [facility] MCV (mean corpuscular volume ) determinationOrdered By: Haresh Johnson on 06-25-2025 MCV (RBC) [Entitic vol] 92.1 fL 80-94 [facility] Mean corpuscular hemoglobin (MCH) determinationOrdered By: Haresh Johnson on 06-25-2025 MCH (RBC) [Entitic mass] 30.9 pg 27.0-32.[address] [facility] Mean corpuscular hemoglobin concentration (MCHC) determinationOrdered By: Haresh Johnson on 06-25-2025 MCHC (RBC) [Mass/Vol] 33.6 g/dL 32-36 [facility] Mean platelet volume determi nationOrdered By: Haresh Johnson on 06-25-2025 Platelet mean volume (Bld) [Entitic vol] 10.6 fL 6.2-12.[address] [facility] Platelet countOrdered By: Ricky Johnson on 06-25-2025 Platelets (Bld) [#/Vol] 227 10*3/uL 150-[address] [facility] Potassium measurement (mass/ volume)Ordered By: Haresh Johnson on 06-25-2025 Potassium (Unsp spec) [Mass/Vol] 4.4 mmol/L 3.3-5.[address] [facility] Comment on above: Hemolysis present, R esults could be affected. RBC Auto (Bld) [#/Vol]Ordere d By: Haresh Johnson on 06-25-2025 RBC (Bld) [#/Vol] 4.79 10*6/uL 4.6-6.2 [facility] Serum creatinine measurement (mass/volume)Ordered By: Haresh Johnson on 06-25-2025 Creatinine [Mass/Vol] 0.86 mg/dL 0.70-1.20 [facility] Serum glucose measurement (m ass/volume)Ordered By: Haresh Johnson on 06-25-2025 Glucose [Mass/Vol] 92 mg/dL 70-99 [facility] Serum or plasma calcium merlin urement (mass/volume)Ordered By: Haresh Johnson on 06-25-2025 Calcium [Mass/Vol] 9.0 mg/dL 7.6-11.0 [facility] Serum or plasma urea nitroge n measurement (mass/volume)Ordered By: Haresh Johnson on 06-25-2025 Urea nitrogen [Mass/Vol] 18 mg/dL 4-[address] [facility] Sodium levelOrdered By: Vivian Johnson on 06-25-2025 Sodium [Moles/Vol] 141 mmol/L 133-145 [facility] White blood cell (WBC) count Ordered By: Haresh Johnson on 06-25-2025 WBC (Bld) [#/Vol] 8.8 10*3/uL 4.4-11.0 [facility] CBC (H/H, RBC, INDICES, WBC, PLT)on 06-20-2025 Erythrocyte distribution width (RBC) [Ratio] 13.3 % Normal 11.0-15.0 [facility] Comment on above: Performed By: #### 7 600, 1759, 37160 #### [facility] [address], [address] [place], [place] [id number] Rent And Housing Investigator: Anton Bello MD Hematocrit (Bld) [Volume fraction] 46.4 % Normal 38.5-50.0 [facility] Comment on above: Performed By: #### 7 600, 1759, 56537 #### [facility] [address], [address] [place], [place] [id number] Rent And Housing Investigator: Anton Bello MD Hemoglobin (Bld) [Mass/Vol] 15.3 g/dL Normal 13.2-17.1 [facility] Comment on above: Performed By: #### 7 600, 175, 99689 #### [facility] [address], [address] [place] [address] Rent And Housing Investigator: Anton Bello MD MCH (RBC) [Entitic mass] 31.5 pg Normal 27.0-33.0 [facility] Comment on above: Performed By: #### 7 600, 175, 63617 #### [facility] [place] [address] [employer] And Housing Investigator: Anton Bello MD MCHC (RBC) [Mass/Vol] 33.0 [...] condition. Performed By: #### 7 600, 1758, 14041 #### [facility] [place] [address] [employer] And Housing Investigator: Anton Bello MD MCV (RBC) [Entitic vol] 95.5 fL Normal 80.0-100.0 [facility] Comment on above: Performed By: #### 7 600, 1758, 59657 #### [facility] [place] [address] [employer] And Housing Investigator: Anton Bello MD Platelet mean volume (Bld) [Entitic vol] 10.5 fL Normal 7.5-12.5 [facility] Comment on above: Performed By: #### 7 600, 175, 73289 #### [facility] [place] [address] Rent And Housing Investigator: Anton Bello MD Platelets (Bld) [#/Vol] 221 10*3/uL Normal 140-400 [facility] Comment on above: Performed By: #### 7 600, 175, 03033 #### [facility] of [place] [address] [employer] And Housing Investigator: Anton Bello MD RBC (Bld) [#/Vol] 4.86 10*6/uL Normal 4.20-5.80 [facility] Comment on above: Performed By: #### 7 600, 175, 34753 #### [facility] of [place] [address] Rent And Housing Investigator: Anton Bello MD WBC (Bld) [#/Vol] 8.6 10*3/uL Normal 3.8-10.8 [facility] Comment on above: Performed By: #### 7 600, 175, 99457 #### [facility] of [place] [address] Rent And Housing Investigator: Anton Bello MD [facility] METABOLIC PANE [facility] 06-20-2025 Albumin [Mass/Vol] 4.3 g/dL Normal 3.6-5.1 [facility] Comment on above: Performed By: #### 7 600, 175, 75394 #### [facility] of [place] [address] Rent And Housing Investigator: Anton Bello MD Albumin/Globulin [Mass ratio] 1.8 {ratio} Normal 1.0-2.5 [facility] Comment on above: Performed By: #### 7 600, 175, 69843 #### [facility] of [place] [address] Rent And Housing Investigator: Anton Bello MD ALP [Catalytic activity/Vol] 62 U/L Normal 35-144 [facility] Comment on above: Performed By: #### 7 600, 175, 55320 #### [facility] of [place] [address] Rent And Housing Investigator: Anton Bello MD ALT [Catalytic activity/Vol] 15 U/L Normal 9-46 [facility] Comment on above: Performed By: #### 7 600, 175, 13310 #### [facility] of [address], [address] [place] [address] Rent And Housing Investigator: Anton Bello MD AST [Catalytic activity/Vol] 19 U/L Normal 10-35 [facility] Comment on above: Performed By: #### 7 600, 175, 06546 #### [facility] of [address], [address] [place] [address] Rent And Housing Investigator: Anton Bello MD Bilirubin [Mass/Vol] 0.7 mg/dL Normal 0.2-1.2 [facility] Comment on above: Performed By: #### 7 600, 175, 26976 #### [facility] of [address], [address] [place] [address] Rent And Housing Investigator: Anton Bello MD BUN/CREATININE RATIO SEE NOTE: Normal 6-22 [facility] Comment on above: Result Comment: Not Reported: BUN and Creatinine are within reference range. Performed By: #### 7 600, 175, 53090 #### [facility] of [address], [address] [place] [address] Rent And Housing Investigator: Anton Bello MD Calcium [Mass/Vol] 8.7 mg/dL Normal 8.6-10.3 [facility] Comment on above: Performed By: #### 7 600, 175, 79553 #### [facility] of [address], [address] [place] [address] Rent And Housing Investigator: Anton Bello MD Chloride [Moles/Vol] 106 mmol/L Normal 98-110 [facility] Comment on above: Performed By: #### 7 600, 175, 34327 #### [facility] of [address], [address] [place] [address] Rent And Housing Investigator: Anton Bello MD CO2 [Moles/Vol] 26 mmol/L Normal 20-32 [facility] Comment on above: Performed By: #### 7 600, 175, 26747 #### [facility] of [address], [address] [place] [address] Rent And Housing Investigator: Anton Bello MD Creatinine [Mass/Vol] 0.91 mg/dL Normal 0.70-1.[address] [facility] Comment on above: Performed By: #### 7 600, 175, 06682 #### [facility] of [address], [address] [place] [address] Rent And Housing Investigator: Anton Bello MD GFR/1.73 sq M.predicted among non-blacks MDRD (S/P/Bld) [Vol rate/Area] 90 mL/min/{1.73_m2} Normal > OR = 60 [facility] Comment on above: Performed By: #### 7 600, 175, 88765 #### [facility] of [address], [address] [place] [address] Rent And Housing Investigator: Anton Bello MD Globulin (S) [Mass/Vol] 2.4 g/dL Normal 1.9-3.7 [facility] Comment on above: Performed By: #### 7 600, 1758, 81378 #### [facility] of [address], [address] [place] [address] Rent And Housing Investigator: Anton Bello MD Glucose [Mass/Vol] 74 mg/dL Normal 65-99 [facility] Comment on above: Result Comment: Fasting reference interval Performed By: #### 7 600, 175, 86746 #### [facility] of [address], [address] [place] [address] Rent And Housing Investigator: Anton Bello MD Potassium [Moles/Vol] 4.4 mmol/L Normal 3.5-5.[address] [facility] Comment on above: Performed By: #### 7 600, 175, 62132 #### [facility] of [place] [address] Rent And Housing Investigator: Anton Bello MD Protein [Mass/Vol] 6.7 g/dL Normal 6.1-8.1 [facility] Comment on above: Performed By: #### 7 600, 175, 78667 #### [facility] of [place] [address] [place] [address] Rent And Housing Investigator: Anton Bello MD Sodium [Moles/Vol] 142 mmol/L Normal 135-146 [facility] Comment on above: Performed By: #### 7 600, 175, 81641 #### [facility] [place] [address] Rent And Housing Investigator: Anton Bello MD Urea nitrogen [Mass/Vol] 20 mg/dL Normal 7-25 [facility] Comment on above: Performed By: #### 7 600, 175, 03443 #### [facility] [place] [address] Rent And Housing Investigator: Anton Bello MD LIPID PANEL, STANDARD Cholesterol [Mass/Vol] 144 mg/dL Normal <200 [facility] Comment on above: Order Comment: 0; 0; 0 Performed By: #### 7 600, 175, 81580 #### [facility] [place] [address] Rent And Housing Investigator: Anton Bello MD Cholesterol in HDL [Mass/Vol] 51 mg/dL Normal > OR = 40 [facility] Comment on above: Order Comment: 0; 0; 0 Performed By: #### 7 600, 175, 32164 #### [facility] [place] [address] Rent And Housing Investigator: Anton Bello MD Cholesterol in LDL [Mass/Vol] [...] LDL-C. Ivan LARSON et al. SHEILA. 2013;310(19): 1806-9472 (http://education.FTRANS.Tangible Cryptography/faq/KRL661) Performed By: #### 7 600, 1759, 58791 #### [facility] [address], [address] [place] [address] Rent And Housing Investigator: Anton Bello MD Cholesterol.total/Choles terol in HDL [Mass ratio] 2.8 {ratio} Normal <5.0 [facility] Comment on above: Order Comment: 0; 0; 0 Performed By: #### 7 600, 1759, 34320 #### [facility] [address], [address] [place] [address] Rent And Housing Investigator: Anton Bello MD NON HDL CHOLESTEROL 93 mg/dL (calc) Normal <130 [facility] Comment on above: Order Comment: 0; 0; 0 Result Comment: For patients with diabetes plus 1 major ASCVD risk factor, treating to a non-HDL-C goal of <100 mg/dL (LDL-C of <70 mg/dL) is considered a therapeutic option. Performed By: #### 7 600, 175, 07413 #### [facility] [place] [address] Rent And Housing Investigator: Anton Bello MD Triglyceride [Mass/Vol] 108 mg/dL Normal <150 [facility] Comment on above: Order Comment: 0; 0; 0 Performed By: #### 7 600, 175, 15016 #### [facility] [place] [address] Rent And Housing Investigator: Anton Bello MD ED Provider Noteon ED [...] signed) Em (more content not included)... Normal [facility] ED Provider Note Emergency Department Encounter [facility] ED Patient: Joseph Brown : 1955 [...] [employer] Marjorie Sears MD 06/09/25 1534 Normal [facility] CBC (HEMOGRAM)on 05-22-2025 Erythrocyte distribution width (RBC) [Ratio] 14.0 % Normal 11.5-15.0 [facility] Comment on above: Performed By: #### L [id number] ####Rent And Housing Investigator: HAILEY HERNANDEZ ([id number])[facility] ([facility])[address] Hematocrit (Bld) [Volume fraction] 43.3 % Normal 40.0-52.0 [facility] Comment on above: Performed By: #### L AB294 ####Rent And Housing Investigator: HAILEY HERNANDEZ ([id number])[facility] ([facility])[address] [place] [address] Hemoglobin (Bld) [Mass/Vol] 14.2 g/dL Normal 13.0-18.0 [facility] Comment on above: Performed By: #### L AB294 ####Rent And Housing Investigator: HAILEY HERNANDEZ ([id number])[facility] ([facility])[address] MCH (RBC) [Entitic mass] 30.7 pg Normal 26.0-34.0 [facility] Comment on above: Performed By: #### L AB294 ####Rent And Housing Investigator: HAILEY HERNANDEZ ([phone])[facility] ([facility] MCHC 32.8 % Normal 30.5-36.0 [facility] Comment on above: Performed By: #### L AB294 ####Rent And Housing Investigator: HAILEY HERNANDEZ ([phone])[facility] ([facility] MCV (RBC) [Entitic vol] 93.5 fL Normal 77.0-99.0 [facility] Comment on above: Performed By: #### L AB294 ####Rent And Housing Investigator: HAIELY GAITANLUCERO ([phone])[facility] ([facility])[address] Platelet mean volume (Bld) [Entitic vol] 10.4 fL Normal 9.0-12.7 [facility] Comment on above: Performed By: #### L AB294 ####Rent And Housing Investigator: HAILEY DAVID ([id number])[facility] ([facility])[address] Platelets (Bld) [#/Vol] 184 10*3/uL Normal 140-440 [facility] Comment on above: Performed By: #### L AB294 ####Rent And Housing Investigator: HAILEY BREWERELVIRA ([id number])[facility] ([facility])[address] RBC (Bld) [#/Vol] 4.63 10*6/uL Normal 4.40-5.90 [facility] Comment on above: Performed By: #### L AB294 ####Rent And Housing Investigator: HAILEY BREWERELVIRA ([id number])[facility] ([facility])[address] WBC (Bld) [#/Vol] 8.2 10*3/uL Normal 3.6-10.7 [facility] Comment on above: Performed By: #### L AB294 ####Rent And Housing Investigator: HAILEY GAITANLUCERO ([id number])[facility] ([facility])[address] CBC panel Auto (Bld)on 05-22 Erythrocyte distribution width (RBC) [Ratio] 14 % 11.5 - 15.0 % [facility] Hematocrit (Bld) [Volume fraction] 43.3 % 40.0 - 52.0 % [facility] Hemoglobin (Bld) [Mass/Vol] 14.2 g/dL 13.0 - 18.0 g/dL [facility] Interpretation and review of laboratory results Normal [facility] MCH (RBC) [Entitic mass] 30.7 pg 26. 0 - 34.0 pg [facility] MCHC (RBC) [Mass/Vol] 32.8 % 30.5 - 36.0 % [facility] MCV (RBC) [Entitic vol] 93.5 fL 77.0 - 99.0 fL [facility] Platelet mean volume (Bld) [Entitic vol] 10.4 fL 9.0 - 12.7 fL [facility] Platelets (Bld) [#/Vol] 184 10*3/uL 140 - 440 10*3/uL [facility] RBC (Bld) [#/Vol] 4.63 10*6/uL 4.40 - 5.9 0 10*6/uL [facility] WBC (Bld) [#/Vol] 8.2 10*3/uL 3.6 - 10.7 10*3/uL [facility] COMPREHENSIVE METABOLIC PANE [place] 05-22-2025 Albumin [Mass/Vol] 3.5 g/dL Normal 3.4-4.8 [facility] Comment on above: Performed By: #### L AB17, LAB18 ####Rent And Housing Investigator: HAILEY HERNANDEZ ([id number])[facility] ([facility])[address] ALP [Catalytic activity/Vol] 59 U/L Normal 40-150 [facility] Comment on above: Performed By: #### L AB17, LAB18 ####Rent And Housing Investigator: HAILEY HERNANDEZ ([id number])[facility] ([facility])[address] ALT [Catalytic activity/Vol] 19 U/L Normal <40 [facility] Comment on above: Performed By: #### L AB17, LAB18 ####Rent And Housing Investigator: HAILEY HERNANDEZ ([phone])[facility] ([facility])[address] Anion gap [Moles/Vol] 8 mmol/L Normal 3-13 [facility] Comment on above: Performed By: #### L AB17, LAB18 ####Rent And Housing Investigator: HAILEY HERNANDEZ ([id number])[facility] ([facility])[address] AST [Catalytic activity/Vol] 23 U/L Normal <34 [facility] Comment on above: Performed By: #### L AB17, LAB18 ####Rent And Housing Investigator: HAILEY HERNANDEZ ([id number])[facility] ([facility])[address] Bilirubin [Mass/Vol] 0.4 mg/dL Normal <1.2 [facility] Comment on above: Performed By: #### L AB17, LAB18 ####Rent And Housing Investigator: HAILEY HERNANDEZ ([phone])[facility] ([facility])[address] Calcium [Mass/Vol] 8.7 mg/dL Low 8.8-10.0 [facility] Comment on above: Performed By: #### L AB17, LAB18 ####Rent And Housing Investigator: HAILEY HERNANDEZ ([id number])[facility] ([facility])[address] Chloride [Moles/Vol] 112 mmol/L High 98-107 [facility] Comment on above: Performed By: #### L AB17, LAB18 ####Rent And Housing Investigator: HAILEY HERNANDEZ ([id number])[facility] ([facility])[address] CO2 [Moles/Vol] 22 mmol/L Low 23-31 [facility] Comment on above: Performed By: #### L AB17, LAB18 ####Rent And Housing Investigator: HAILEY HERNANDEZ ([phone])[facility] ([facility])[address] [place] [address] [place] Creatinine [Mass/Vol] 0.83 mg/dL Normal 0.72-1.25 [facility] Comment on above: Performed By: #### L AB17, LAB18 ####Rent And Housing Investigator: HAILEY HERNANDEZ ([phone])[facility] ([facility])[address] [place] [address] [place] GLOMERULAR FILTRATION RATE ML/MIN/1.73 SQ M.PREDICTED >90.0 Normal >60.0 [facility] Comment on above: Result Comment: Calc ulation based on the Chronic Kidney Disease Epidemiology Collaboration (CKD-EPI) equation refit without adjustment for race Performed By: #### L AB17, LAB18 ####Rent And Housing Investigator: HAILEY HERNANDEZ ([phone])[facility] ([facility])[address] [place] [address] [place] Glucose [Mass/Vol] 101 mg/dL Normal 82-115 [facility] Comment on above: Performed By: #### L AB17, LAB18 ####Rent And Housing Investigator: HAILEY HERNANDEZ ([phone])[facility] ([facility])[address] Potassium [Moles/Vol] 4.5 mmol/L Normal 3.5-5.1 [facility] Comment on above: Result Comment: [facility] potassium values may be up to 0.5 mmol/L lower than serum values. Performed By: #### L AB17, LAB18 ####Rent And Housing Investigator: HAILEY HERNANDEZ ([phone])[facility] ([facility])[address] [place] [address] [place] Protein [Mass/Vol] 6.4 g/dL Normal 6.4-8.3 [facility] Comment on above: Performed By: #### L AB17, LAB18 ####Rent And Housing Investigator: HAILEY HERNANDEZ ([id number])[facility] ([facility])[address] [place] [address] [place] Sodium [Moles/Vol] 142 mmol/L Normal 136-145 [facility] Comment on above: Performed By: #### L AB17, LAB18 ####Rent And Housing Investigator: HAILEY HERNANDEZ ([id number])[facility] ([facility])[address] [place] [address] [place] Urea nitrogen [Mass/Vol] 19 mg/dL Normal 9-23 [facility] Comment on above: Performed By: #### L AB17, LAB18 ####Rent And Housing Investigator: HALIEY HERNANDEZ ([phone])[facility] ([facility])[address] [place] [address] Comprehensive metabolic 1998 panelon 05-22-2025 Albumin [Mass/Vol] 3.5 g/dL 3.4 - 4.8 g/dL [facility] ALP [Catalytic activity/Vol] 59 U/L 40 - 150 U/L [facility] ALT [Catalytic activity/Vol] 19 U/L NINF - 40 U/L [facility] Anion gap [Moles/Vol] 8 mmol/L 3 - 13 mmol/L [facility] AST [Catalytic activity/Vol] 23 U/L NINF - 34 U/L [facility] Bilirubin [Mass/Vol] 0.4 mg/dL NINF - 1.2 mg/dL [facility] Calcium [Mass/Vol] 8.7 mg/dL Low 8.8 - 10. 0 mg/dL [facility] Chloride [Moles/Vol] 112 mmol/L High 98 - 10 7 mmol/L [facility] CO2 [Moles/Vol] 22 mmol/L Low 23 - 31 mmol/L [facility] Creatinine [Mass/Vol] 0.83 mg/dL 0.72 - 1.25 mg/dL [facility] GFR/1.73 sq M.predicted (S/P/Bld) [Vol rate/Area] - PINF [facility] Comment on above: Calculation based on the Chronic Kidney Disease Epidemiology Collaboration (CKD-EPI) equation refit without adjustment for race Glucose [Mass/Vol] 101 mg/dL 82 - 115 mg/dL [facility] Potassium [Moles/Vol] 4.5 mmol/L 3.5 - 5.1 mmol/L [facility] Comment on above: Plasma potassium frank ues may be up to 0.5 mmol/L lower than serum values. Protein [Mass/Vol] 6.4 g/dL 6.4 - 8.3 g/dL [facility] Sodium [Moles/Vol] 142 mmol/L 136 - 145 mmol/L [facility] Urea nitrogen [Mass/Vol] 19 mg/dL 9 - 23 mg/d L [facility] HEMOGLOBIN A1Con 05-22-2025 Glucose [Mass/Vol] 108 mg/dL Normal [facility] Comment on above: Result Comment: ORDE R COMMENTS: HbA1c values of 5.7-6.4 percent indicate an increased risk for developing diabetes mellitus. HbA1c values greater than or equal to 6.5 percent are diagnostic of diabetes mellitus. For diagnosis of diabetes in individuals without unequivocal hyperglycemia, results should be confirmed by repeat testing. Performed By: #### L AB90 ####Rent And Housing Investigator: HAILEY HERNANDEZ ([id number])[facility] ([facility])[address] HEMOGLOBIN A1C 5.4 %HbA1C Normal <5.7 [facility] Comment on above: Result Comment: Norm al less than 5.7% Prediabetes 5.7% to 6.4% Diabetes 6.5% or higher --HgbA1C levels may not be accurate in patients who have renal disease, received recent blood transfusions, are anemic, or who have dyshemoglobinemia. Performed By: #### L AB90 ####Rent And Housing Investigator: HAILEY HERNANDEZ ([phone])[facility] ([facility])[address] LIPID PANELon 05-22-2025 Cholesterol [Mass/Vol] 139 mg/dL Normal <200 [facility] Comment on above: Performed By: #### L AB17, LAB18 ####Rent And Housing Investigator: HAILEY HERNANDEZ ([phone])[facility] ([facility])[address] Cholesterol in HDL [Mass/Vol] 44 mg/dL Low >=60 [facility] Comment on above: Performed By: #### L AB17, LAB18 ####Rent And Housing Investigator: HAILEY HERNANDEZ ([id number])[facility] ([facility])[address] Cholesterol.total/Choles terol in HDL [Mass ratio] 3 {ratio} Normal [facility] Comment on above: Result Comment: Ref Range: < 3 Low Risk for CHD 3-6 Mod Risk for CHD > 6 High Risk for CHD Performed By: #### L AB17, LAB18 ####Rent And Housing Investigator: HAILEY HERNANDEZ ([phone])[facility] ([facility])[address] LOW DENSITY LIPOPROTEIN 77 mg/dL Normal 0-<100 [facility] Comment on above: Performed By: #### L AB17, LAB18 ####Rent And Housing Investigator: HAILEY BREWERWilliamsLUCERO ([id number])[facility] ([facility])[address] NON-HDL CHOLESTEROL, CALCULATED 95 Normal <130 [facility] Comment on above: Performed By: #### L AB17, LAB18 ####Rent And Housing Investigator: HAILEY HERNANDEZ ([phone])[facility] ([facility])[address] Triglyceride [Mass/Vol] 92 mg/dL Normal <150 [facility] Comment on above: Performed By: #### L AB17, LAB18 ####Rent And Housing Investigator: HAILEY HERNANDEZ ([phone])[facility] ([facility])[address] VERY LOW DENSITY LIPOPROTEIN, CALCULATED 18 mg/dL Normal <=30 [facility] Comment on above: Performed By: #### L AB17, LAB18 ####Rent And Housing Investigator: HAILEY BREWERELVIRA ([phone])[facility] ([facility])[address] Laboratory - Chemistry and C hemistry - challengeon 05-22-2025 Average glucose Estimated from glycated hemoglobin (Bld) [Mass/Vol] 108 mg/dL [facility] - Hematology and Cell countson 05-22-2025 HbA1c (Bld) [Mass fraction] 5.4 % [facility] Comment on above: Normal less than 5.7 % Prediabetes 5.7% to 6.4% Diabetes 6.5% or higher --HgbA1C levels may not be accurate in patients who have renal disease, received recent blood transfusions, are anemic, or who have dyshemoglobinemia. Lipid 1996 panelon 5 Cholesterol [Mass/Vol] 139 mg/dL [facility] - 200 mg/dL [facility] Cholesterol in HDL [Mass/Vol] 44 mg/dL Low 60 - PINF mg/dL [facility] Cholesterol in LDL [Mass/Vol] 77 mg/dL 0 - <100 [facility] Cholesterol.total/Choles terol in HDL [Mass ratio] 3 {ratio} [facility] Comment on above: Ref Range: < 3 Low Risk for CHD 3-6 Mod Risk for CHD > 6 High Risk for CHD NON-HDL CHOLESTEROL, CALCULATED 95 NINF - 130 [facility] Triglyceride [Mass/Vol] 92 mg/[facility] VERY LOW DENSITY LIPOPROTEIN, CALCULATED 18 mg/dL NINF - 30 mg/dL [facility] No Panel Informationon 05-22 HbA1c values of 5.7-6.4 percent indicate an increased risk for developing diabetes mellitus. HbA1c values greater than or equal to 6.5 percent are diagnostic of diabetes mellitus. For diagnosis of diabetes in individuals without unequivocal hyperglycemia, results should be confirmed by repeat testing. [facility] Interpretation and review of laboratory results Abnormal [facility] Nursing Noteon 05-22-2025 Nursing Note Pt given and educated on discharge instructions. Pt and family have no questions at this time. IV removed. Pt discharged to private vehicle. Normal [facility] Progress Noteon 05-22-2025 Progress Note OCCUPATIONAL THERAPY [facility] Name/MRN: Joseph Brown ([id number]) Date: 05/22/2025 Therapy eval and treat orders received for if Elena < 100 and below baseline. Elena noted to be 100 this admission. Will discontinue orders at this time. Should pt demo a change in status, please reorder OT services. Mikie Chavira, OT Normal [facility] Progress Note PHYSICAL THERAPY [facility] Name/MRN: Joseph Brown ([id number]) Date: 05/22/2025 Chart review completed, pt currently has a Elena score of 100 with PT orders to eval and treat with Elena score <100. Will complete current orders. Please re-order if status changes. Lissette Cruz, PT Normal [facility] CBC W Auto Differential pane l (Bld)on 05-21-2025 Basophils (Bld) [#/Vol] 0 10*3/uL 0.0 - 0.2 10*3/uL [facility] Basophils/100 WBC (Bld) 0.5 % 0.0 - 2.0 % [facility] Eosinophils (Bld) [#/Vol] 0.5 10*3/uL 0.0 - 0.5 10*3/uL [facility] Eosinophils/100 WBC (Bld) 5.2 % 0.0 - 6.0 % [facility] Erythrocyte distribution width (RBC) [Ratio] 13.8 % 11.5 - 15.0 % [facility] Hematocrit (Bld) [Volume fraction] 41.1 % 40.0 - 52.0 % [facility] Hemoglobin (Bld) [Mass/Vol] 13.7 g/dL 13.0 - 18.0 g/dL [facility] Immature granulocytes (Bld) [#/Vol] 0 10*3/uL NINF - 0.1 10*3/uL [facility] Immature granulocytes/100 WBC (Bld) 0.5 % 0.0 - 2.0 % [facility] Interpretation and review of laboratory results Normal [facility] Lymphocytes (Bld) [#/Vol] 1.8 10*3/uL 1.0 - 4.3 10*3/uL [facility] Lymphocytes/100 WBC (Bld) 20.8 % 15.0 - 45.0 % [facility] MCH (RBC) [Entitic mass] 30.9 pg 26. 0 - 34.0 pg [facility] MCHC (RBC) [Mass/Vol] 33.3 % 30.5 - 36.0 % [facility] MCV (RBC) [Entitic vol] 92.8 fL 77.0 - 99.0 fL [facility] Monocytes (Bld) [#/Vol] 0.8 10*3/uL 0.0 - 0.9 10*3/uL [facility] Monocytes/100 WBC (Bld) 8.7 % 5.0 - 13.0 % [facility] Neutrophils (Bld) [#/Vol] 5.6 10*3/uL 1.8 - 7.5 10*3/uL [facility] Neutrophils/100 WBC (Bld) 64.3 % 38.0 - 82.0 % [facility] Nucleated RBC/100 WBC (Bld) [Ratio] 0 % [facility] Platelet mean volume (Bld) [Entitic vol] 10.6 fL 9.0 - 12.7 fL [facility] Platelets (Bld) [#/Vol] 179 10*3/uL 140 - 440 10*3/uL [facility] RBC (Bld) [#/Vol] 4.43 10*6/uL 4.40 - 5.9 0 10*6/uL [facility] WBC (Bld) [#/Vol] 8.7 10*3/uL 3.6 - 10.7 10*3/uL [facility] CBC WITH AUTO DIFFERENTIALon 05-21-2025 Basophils (Bld) [#/Vol] 0.0 10*3/uL Normal 0.0-0.2 [facility] Comment on above: Performed By: #### L [id number] ####Rent And Housing Investigator: HAILEY HERNANDEZ ([phone])[facility] [place] ([facility] [place] [address] Basophils/100 WBC (Bld) 0.5 % Normal 0.0-2.0 [facility] Comment on above: Performed By: #### L [id number] ####Rent And Housing Investigator: HAILEY HERNANDEZ ([id number])[facility] ([facility])[address] Eosinophils (Bld) [#/Vol] 0.5 10*3/uL Normal 0.0-0.5 [facility] Comment on above: Performed By: #### L [id number] ####Rent And Housing Investigator: HAILEY HERNANDEZ ([phone])[facility] ([facility])[address] Eosinophils/100 WBC (Bld) 5.2 % Normal 0.0-6.0 [facility] Comment on above: Performed By: #### L [id number] ####Rent And Housing Investigator: HAILEY HERNANDEZ ([id number])[facility] ([facility])[address] Erythrocyte distribution width (RBC) [Ratio] 13.8 % Normal 11.5-15.0 [facility] Comment on above: Performed By: #### L [id number] ####Rent And Housing Investigator: HAILEY HERNANDEZ ([id number])[facility] [place] ([facility])[address] [place] [address] Hematocrit (Bld) [Volume fraction] 41.1 % Normal 40.0-52.0 [facility] Comment on above: Performed By: #### L [id number] ####Rent And Housing Investigator: HAILEY GAITANLUCERO ([phone])[facility] [place] [address] Hemoglobin (Bld) [Mass/Vol] 13.7 g/dL Normal 13.0-18.0 [facility] Comment on above: Performed By: #### L [id number] ####Rent And Housing Investigator: HAILEY HERNANDEZ ([phone])[facility] ([facility])[address] [place] [address] IMMATURE GRANS % 0.5 % Normal 0.0-2.0 [facility] Comment on above: Performed By: #### L [id number] ####Rent And Housing Investigator: HAILEY GAITANLUCERO ([phone])[facility] ([facility] [place] [address] IMMATURE GRANS ABSOLUTE 0.0 10*3/uL Normal <0.1 [facility] Comment on above: Performed By: #### L [id number] ####Rent And Housing Investigator: HAILEY HERNANDEZ ([id number])[facility] ([facility] [place] [address] Lymphocytes (Bld) [#/Vol] 1.8 10*3/uL Normal 1.0-4.3 [facility] Comment on above: Performed By: #### L [id number] ####Rent And Housing Investigator: HAILEY HERNANDEZ ([phone])[facility] ([facility])[address] Lymphocytes/100 WBC (Bld) 20.8 % Normal 15.0-45.0 [facility] Comment on above: Performed By: #### L [id number] ####Rent And Housing Investigator: HAILEY HERNANDEZ ([phone])[facility] (SBHLAB)[address] MCH (RBC) [Entitic mass] 30.9 pg Normal 26.0-34.0 [facility] Comment on above: Performed By: #### L [id number] ####Rent And Housing Investigator: HAILEY HERNANDEZ ([phone])[facility] SOL[facility] (SBHLAB)[address] MCHC 33.3 % Normal 30.5-36.0 [facility] Comment on above: Performed By: #### L [id number] ####Rent And Housing Investigator: HAILEY HERNANDEZ ([id number])[facility] SOL[facility] (SBHLAB)[address] MCV (RBC) [Entitic vol] 92.8 fL Normal 77.0-99.0 [facility] Comment on above: Performed By: #### L [id number] ####Rent And Housing Investigator: HAILYE HERNANDEZ ([phone])[facility] MARTINEZMAIKELN (SBHLAB)[address] Monocytes (Bld) [#/Vol] 0.8 10*3/uL Normal 0.0-0.9 [facility] Comment on above: Performed By: #### L [id number] ####Rent And Housing Investigator: HAILEY HERNANDEZ ([id number])ANTOINE MARTINEZMAIKELN (SBHLAB)[address] Monocytes/100 WBC (Bld) 8.7 % Normal 5.0-13.0 [facility] Comment on above: Performed By: #### L [id number] ####Rent And Housing Investigator: HAILEY HERNANDEZ ([id number])[facility] BARBMAIKELN (SBHLAB)[address] NEUTROPHILS ABSOLUTE 5.6 10*3/uL Normal 1.8-7.5 [facility] Comment on above: Performed By: #### L [id number] ####Rent And Housing Investigator: HAILEY HERNANDEZ ([id number])[facility] BARBMA[facility]ELN (SBHLAB)[address] Neutrophils/100 WBC (Bld) 64.3 % Normal 38.0-82.0 [facility] Comment on above: Performed By: #### L [id number] ####Rent And Housing Investigator: HAILEY HERNANDEZ ([id number])[facility] (SBHLAB)[address] NRBC 0.0 /100 WBCs Normal 0.0-2.0 [facility] Comment on above: Performed By: #### L [id number] ####Rent And Housing Investigator: HAILEY HERNANDEZ ([phone])[facility] [place] ([facility])[address] Platelet mean volume (Bld) [Entitic vol] 10.6 fL Normal 9.0-12.7 [facility] Comment on above: Performed By: #### L [id number] ####Rent And Housing Investigator: HAILEY HERNANDEZ ([id number])[facility]ITAL[facility] MARTINEZCH[address] (SBHLAB)[address] [place] [address] [place] Platelets (Bld) [#/Vol] 179 10*3/uL Normal 140-440 [facility] Comment on above: Performed By: #### L [id number] ####Rent And Housing Investigator: HAILEY HERNANDEZ ([id number])[facility] (SBHLAB)[address] [place] [address] [place] RBC (Bld) [#/Vol] 4.43 10*6/uL Normal 4.40-5.90 [facility] Comment on above: Performed By: #### L [id number] ####Rent And Housing Investigator: HAILEY HERNANDEZ ([phone])[facility] (SBHLAB)[address] [place] [address] [place] WBC (Bld) [#/Vol] 8.7 10*3/uL Normal 3.6-10.7 [facility] Comment on above: Performed By: #### L [id number] ####Rent And Housing Investigator: HAILEY HERNANDEZ ([id number])[facility]ITAL[facility] MARTINEZCHRI[address] [facility]INC[facility] PHYSICIANS MEDICAL CENTERRaoul (SBHLAB)[address] COMPREHENSIVE METABOLIC PANE [place] 05-21-2025 Albumin [Mass/Vol] 3.5 g/dL Normal 3.4-4.8 [facility] Comment on above: Performed By: #### Ilya [id number], LAB17, [id number] ####Rent And Housing Investigator: HAILEY HERNANDEZ ([id number])[facility]ITAL[facility] (SBHLAB)[address] ALP [Catalytic activity/Vol] 66 U/L Normal 40-150 [facility] Comment on above: Performed By: #### Ilya [id number], LAB17, [id number] ####Rent And Housing Investigator: HAILEY HERNANDEZ ([id number])[facility] (SBHLAB)[address] ALT [Catalytic activity/Vol] 18 U/L Normal <40 [facility] Comment on above: Performed By: #### Ilya [id number], LAB17, [id number] ####Rent And Housing Investigator: HAILEY HERNANDEZ ([id number])[facility] (HLAB)[address] Anion gap [Moles/Vol] 8 mmol/L Normal 3-13 [facility] Comment on above: Performed By: #### Ilya [id number], LAB17, [id number] ####Rent And Housing Investigator: HAILEY HERNANDEZ ([id number])[facility] (SBHLAB)[address] AST [Catalytic activity/Vol] 25 U/L Normal <34 [facility] Comment on above: Performed By: #### Ilya [id number], LAB17, [id number] ####Rent And Housing Investigator: HAILEY HERNANDEZ ([id number])[facility] (SBHLAB)[address] Bilirubin [Mass/Vol] 0.4 mg/dL Normal <1.2 [facility] Comment on above: Performed By: #### Ilya [id number], LAB17, [id number] ####Rent And Housing Investigator: HAILEY HERNANDEZ ([id number])[facility]ITAL[facility] (SBHLAB)[address] Calcium [Mass/Vol] 8.7 mg/dL Low 8.8-10.0 [facility] Comment on above: Performed By: #### Ilya [id number], LAB17, [id number] ####Rent And Housing Investigator: HAILEY HERNANDEZ ([id number])[facility] (SBHLAB)[address] Chloride [Moles/Vol] 111 mmol/L High 98-107 [facility] Comment on above: Performed By: #### Ilya [id number], LAB17, [id number] ####Rent And Housing Investigator: HAILEY HERNANDEZ ([id number])[facility] (SBHLAB)[address] CO2 [Moles/Vol] 23 mmol/L Normal 23-31 [facility] Comment on above: Performed By: #### Ilya [id number], LAB17, [id number] ####Rent And Housing Investigator: HAILEY HERNANDEZ ([phone])[facility] ([facility])[address] Creatinine [Mass/Vol] 0.89 mg/dL Normal 0.72-1.25 [facility] Comment on above: Performed By: #### Ilya [id number], LAB17, [id number] ####Rent And Housing Investigator: HAILEY HERNANDEZ ([phone])[facility] (HLAB)[address] GLOMERULAR FILTRATION RATE ML/MIN/1.73 SQ M.PREDICTED >90.0 Normal >60.0 [facility] Comment on above: Result Comment: Calc ulation based on the Chronic Kidney Disease Epidemiology Collaboration (CKD-EPI) equation refit without adjustment for race Performed By: #### Ilya [id number], LAB17, EDQ111 ####Rent And Housing Investigator: HAILEY HERNANDEZ ([phone])[facility] (SBHLAB)[address] Glucose [Mass/Vol] 163 mg/dL High 82-115 [facility] Comment on above: Performed By: #### L [id number], LAB17, [id number] ####Rent And Housing Investigator: HAILEY HERNANDEZ ([phone])[facility] (SBHLAB)[address] Potassium [Moles/Vol] 4.1 mmol/L Normal 3.5-5.1 [facility] Comment on above: Result Comment: [facility] potassium values may be up to 0.5 mmol/L lower than serum values. Performed By: #### L [id number], LAB17, [id number] ####Rent And Housing Investigator: HAILEY HERNANDEZ ([phone])[facility] (SBHLAB)[address] Protein [Mass/Vol] 6.3 g/dL Low 6.4-8.3 [facility] Comment on above: Performed By: #### L [id number], LAB17, [id number] ####Rent And Housing Investigator: HAILEY HERNANDEZ ([phone])[facility] (SBHLAB)[address] Sodium [Moles/Vol] 142 mmol/L Normal 136-145 [facility] Comment on above: Performed By: #### L [id number], LAB17, [id number] ####Rent And Housing Investigator: HAILEY HERNANDEZ ([id number])[facility] (SBHLAB)[address] Urea nitrogen [Mass/Vol] 17 mg/dL Normal 9-23 [facility] Comment on above: Performed By: #### L [id number], LAB17, [id number] ####Rent And Housing Investigator: HAILEY HERNANDEZ ([phone])[facility] (SBHLAB)[address] HEAD WO IV CONTRASTon CT [...] Took tylenol at home with relief. Normal [facility] CT Head WO contraston 2024 1. No acute intracranial abnormalities. 2. Chronic sinonasal polyposis bilaterally. Report Dictated on Electronically Signed By: Avinash Miguel MD Electronically Signed Date/Time: 05/21/2025 1:00 AM T [facility] Patient Name: JOSEPH BROWN : 1955 [...] were present on the patient's prior study. [facility] Avinash Miguel MD - 05/21/2025 [facility] 1955 [id number] Exam Date/Time: 05/21/2025 00:21 Procedure: CT HEAD [...] Electronically Signed Date/Time: 05/21/2025 1:00 AM EDT [facility] Radiology Study observation (narrative) [facility] CT Head WO contrastOrdered B y: Avinash Miguel on 05-21-2025 [facility] [employer] Work Phone: Comprehensive metabolic 1998 panelon 05-21-2025 Albumin [Mass/Vol] 3.5 g/dL 3.4 - 4.8 g/dL [facility] ALP [Catalytic activity/Vol] 66 U/L 40 - 150 U/L [facility] ALT [Catalytic activity/Vol] 18 U/L NINF - 40 U/L [facility] Anion gap [Moles/Vol] 8 mmol/L 3 - 13 mmol/L [facility] AST [Catalytic activity/Vol] 25 U/L NINF - 34 U/L [facility] Bilirubin [Mass/Vol] 0.4 mg/dL NINF - 1.2 mg/dL [facility] Calcium [Mass/Vol] 8.7 mg/dL Low 8.8 - 10. 0 mg/dL [facility] Chloride [Moles/Vol] 111 mmol/L High 98 - 10 7 mmol/L [facility] CO2 [Moles/Vol] 23 mmol/L 23 - 31 mmol/L [facility] Creatinine [Mass/Vol] 0.89 mg/dL 0.72 - 1.25 mg/dL [facility] GFR/1.73 sq M.predicted (S/P/Bld) [Vol rate/Area] - PINF [facility] Comment on above: Calculation based on the Chronic Kidney Disease Epidemiology Collaboration (CKD-EPI) equation refit without adjustment for race Glucose [Mass/Vol] 163 mg/dL High 82 - 115 mg/dL [facility] Interpretation and review of laboratory results Abnormal [facility] Potassium [Moles/Vol] 4.1 mmol/L 3.5 - 5.1 mmol/L [facility] Comment on above: Plasma potassium frank ues may be up to 0.5 mmol/L lower than serum values. Protein [Mass/Vol] 6.3 g/dL Low 6.4 - 8.3 g/dL [facility] Sodium [Moles/Vol] 142 mmol/L 136 - 145 mmol/L [facility] Urea nitrogen [Mass/Vol] 17 mg/dL 9 - 23 mg/d L [facility] Consulton 05-21-2025 Consult Attestation signed by Zoey [...] Name: Joseph Brown Patient : 1955 Acct: [id number] Date of Admission: 05/20/2025 [facility] A PCP: Laquita Ding DO History of [...] vestibular t (more content not included)... Normal [facility] ECG 12-LEADon 05-21-2025 ECG 12-LEAD IMPRESSION: EKG shows normal sinus rhythm, 64 bpm, no STEMI, QTc normal. Interpretation was performed by me. Overall similar when compared to prior. Electronically Signed On 05-21-2025 01:10:32 EDT by Jacoby Sanders Normal [facility] HIGH SENSITIVITY TROPONIN, S ERIAL BASELINEon 05-21-2025 TROPONIN HS SERIAL BASELINE 5 ng/L Normal <=35 [facility] Comment on above: Result Comment: In i ndividuals presenting with symptoms > 2h, a baseline troponin <= 5 ng/L suggests acute cardiac injury is unlikely and further serial testing is generally not indicated. Performed By: #### L [id number], LAB17, [id number] ####Rent And Housing Investigator: HAILEY HERNANDEZ ([phone])[facility] ([facility])[address] [place] [address] HIGH SENSITIVITY TROPONIN, S ERIAL, SECOND TESTon 05-21-2025 2H TROPONIN HS (SERIAL 2ND TROPONIN) 4 ng/L Normal <=35 [facility] Comment on above: Result Comment: Risi ng or falling troponin delta below 2 ng/L as compared to baseline value suggests that acute cardiac injury is unlikely. Performed By: #### L [id number] ####Rent And Housing Investigator: HAILEY HERNANDEZ ([phone])[facility] ([facility])[address] [place] [address] MR Brain WO contraston 05-21 [facility] 1955 [id number] Exam Date/Time: 05/21/2025 16:00 Procedure: MR BRAIN [...] ethmoid and right maxillary and sphenoid sinuses. [facility] Yasmani Briscoe MD - 05/21/2025 Patient Name: JOSEPH BROWN : 1955 [facility]#: [id number] Exam Date/Time: 05/21/2025 16:00 Procedure: MR BRAIN [...] basilar and proximal posterior cerebral arteries. Right WOMEN[employer] STUDIES LECTURER derives major contribution from anterior circulation consistent [...] Electronically Signed Date/Time: 05/21/2025 6:01 PM EDT [facility] Head vessels WO contrast on [...] ethmoid and right maxillary and sphenoid sinuses. [facility] Yasmani Briscoe MD - 05/21/2025 [...] basilar and proximal posterior cerebral arteries. Right WOM[employer]UD[employer] LECTURER derives major contribution from anterior circulation consistent [...] Electronically Signed Date/Time: 05/21/2025 6:01 PM EDT [facility] MRA Neck vessels WO and W co [...] ethmoid and right maxillary and sphenoid sinuses. [facility] Yasmani Briscoe MD - 05/21/2025 Patient [...] basilar and proximal posterior cerebral arteries. Right WOMEN[employer]S STUDIES LECTURER derives major contribution from anterior circulation consistent [...] Electronically Signed Date/Time: 05/21/2025 6:01 PM EDT [facility] NT PRO BNPon 05-21-2025 Natriuretic peptide B (Bld) [Mass/Vol] 89 pg/mL Normal <125 [facility] [employer] [facility] Comment on above: Performed By: #### L [id number], LAB17, [id number] ####Rent And Housing Investigator: HAILEY HERNANDEZ ([phone])[facility] ([facility])[address] [place] [address] Natriuretic peptide B [Mass/ Vol]on 05-21-2025 Interpretation and review of laboratory results Normal [facility] [employer] Natriuretic peptide B (Bld) [Mass/Vol] 89 pg/mL NINF - 125 pg/mL [facility] [employer] No Panel Informationon 05-21 1. No acute [...] basilar and proximal posterior cerebral arteries. Right WOMEN[employer] STUDIES LECTURER derives major contribution from anterior circulation consistent [...] Electronically Signed Date/Time: 05/21/2025 6:01 PM EDT [facility] Radiology Study observation (narrative) [facility] He alth 2h Troponin HS (Serial 2nd Troponin) 4 ng/L NINF - 35 ng/L [facility] Comment on above: Rising or falling tr oponin delta below 2 ng/L as compared to baseline value suggests that acute cardiac injury is unlikely. Interpretation and review of laboratory results Normal [facility] EKG shows normal sinus rhythm, 64 [...] On 05-21-2025 01:10:32 EDT by Jacoby Sanders [facility] [employer] Interpretation and review of laboratory results Normal [facility] Troponin HS Serial Baseline 5 ng/L NINF - 35 ng/L [facility] Comment on above: In individuals prese nting with symptoms > 2h, a baseline troponin <= 5 ng/L suggests acute cardiac injury is unlikely and further serial testing is generally not indicated. [facility] No Panel InformationOrdered By: Jacoby Sanders on 05-21-2025 P [place] 47 degrees [facility] Work Phone: CT Interval 128 ms [facility] Work Phone: QRS [place] 6 degrees [facility] Work Phone: QRSD Interval 98 ms IIIMOBIt h Work Phone: QT Interval 410 ms [facility] Work Phone: QTC Interval 422 ms [employer] [employer] Work Phone: T Wave [place] 44 degrees [facility] [employer] Work Phone: [facility] Work Phone: Progress Noteon 05-21-2025 Progress Note OCCUPATIONAL THERAPY [facility] Name/MRN: Joseph Brown ([id number]) Date: 05/21/2025 Therapy eval and treat orders received. Chart review complete and spoke with evaluating physical therapist. Pt is currently IND for transfers / mobility without a device and demonstrates no current concerns for home going at this time. Will discontinue orders at this time. Should pt demo a change in status, please reorder OT services. Mikie Chavira, OT [facility] Vital signsOrdered By: Jacoby Sanders on 05-21-2025 Heart rate 64 /min bpm ams AG Work Phone: ED Provider Noteon ED Provider [...] and DIFFEREN (more content not included)... Normal [facility] XR Chest Single viewon 05-20 1. Hypoinflation. 2. No other acute findings. Report Dictated on Electronically Signed By: Yasmani Briscoe MD Electronically Signed Date/Time: 05/20/2025 11:56 PM EDT [facility] Patient Name: JOSEPH BROWN : 1955 [...] change again noted in the thoracic spine. [facility] Yasmani Briscoe MD - 05/20/2025 Patient [...] Electronically Signed Date/Time: 05/20/2025 11:56 PM EDT [facility] Radiology Study observation (narrative) [facility] XR Chest Single viewOrdered By: Yasmani Briscoe on 05-20-2025 [facility] Work Phone: BASIC METABOLIC PANELon 03-0 Anion gap [Moles/Vol] 10 mmol/L Normal 3-13 [facility] Comment on above: Performed By: #### L [id number], [id number] ####Rent And Housing Investigator: HAILEY HERNANDEZ ([phone])[facility] ([facility] Calcium [Mass/Vol] 8.8 mg/dL Normal 8.8-10.0 [facility] Comment on above: Performed By: #### Ilya AB15, [id number] ####Rent And Housing Investigator: HAILEY HERNANDEZ ([phone])[facility] [place] ([facility] Chloride [Moles/Vol] 109 mmol/L High 98-107 [facility] Comment on above: Performed By: #### Ilya AB15, [id number] ####Rent And Housing Investigator: HAILEY HERNANDEZ ([phone])[facility] [place] ([facility])[address] CO2 [Moles/Vol] 21 mmol/L Low 23-31 [facility] Comment on above: Performed By: #### L AB15, [id number] ####Rent And Housing Investigator: HAILEY HERNANDEZ ([phone])[facility] [place] ([facility])[address] [place] [address] [place] Creatinine [Mass/Vol] 0.81 mg/dL Normal 0.72-1.25 [facility] Comment on above: Performed By: #### L AB15, [id number] ####Rent And Housing Investigator: HAILEY HERNANDEZ ([id number])[facility] [place] ([facility])[address] GLOMERULAR FILTRATION RATE ML/MIN/1.73 SQ M.PREDICTED >90.0 Normal >60.0 [facility] Comment on above: Result Comment: Calc ulation based on the Chronic Kidney Disease Epidemiology Collaboration (CKD-EPI) equation refit without adjustment for race Performed By: #### L 15, [id number] ####Rent And Housing Investigator: HAILEY HERNANDEZ ([id number])[facility] (SBHLAB)[address] Glucose [Mass/Vol] 134 mg/dL High 82-115 [facility] Comment on above: Performed By: #### L 15, [id number] ####Rent And Housing Investigator: HAILEY HERNANDEZ ([id number])[facility] (SBHLAB)[address] Potassium [Moles/Vol] 3.8 mmol/L Normal 3.5-5.1 [facility] Comment on above: Result Comment: [facility] potassium values may be up to 0.5 mmol/L lower than serum values. Performed By: #### Ilya GLEZ15, [id number] ####Rent And Housing Investigator: HAILEY HERNANDEZ ([phone])[facility] ([facility])[address] Sodium [Moles/Vol] 140 mmol/L Normal 136-145 [facility] Comment on above: Performed By: #### L 15, [id number] ####Rent And Housing Investigator: HAILEY HERNANDEZ ([id number])[facility] (SBHLAB)[address] Urea nitrogen [Mass/Vol] 18 mg/dL Normal 9-23 [facility] Comment on above: Performed By: #### L AB15, [id number] ####Rent And Housing Investigator: HAILEY HERNANDEZ ([phone])[facility] (SBHLAB)[address] Basic metabolic 1998 panelon 12-20-2024 Anion gap [Moles/Vol] 10 mmol/L 3 - 13 mmol/L [facility] Calcium [Mass/Vol] 8.8 mg/dL 8.8 - 10. 0 mg/dL [facility] Chloride [Moles/Vol] 109 mmol/L High 98 - 10 7 mmol/L [facility] CO2 [Moles/Vol] 21 mmol/L Low 23 - 31 mmol/L [facility] Creatinine [Mass/Vol] 0.81 mg/dL 0.72 - 1.25 mg/dL [facility] GFR/1.73 sq M.predicted (S/P/Bld) [Vol rate/Area] - PINF [facility] Comment on above: Calculation based on the Chronic Kidney Disease Epidemiology Collaboration (CKD-EPI) equation refit without adjustment for race Glucose [Mass/Vol] 134 mg/dL High 82 - 115 mg/dL [facility] Interpretation and review of laboratory results Abnormal [facility] Potassium [Moles/Vol] 3.8 mmol/L 3.5 - 5.1 mmol/L [facility] Comment on above: Plasma potassium frank ues may be up to 0.5 mmol/L lower than serum values. Sodium [Moles/Vol] 140 mmol/L 136 - 145 mmol/L [facility] Urea nitrogen [Mass/Vol] 18 mg/dL 9 - 23 mg/d L [facility] CBC W Auto Differential pane l (Bld)on 12-20-2024 Basophils (Bld) [#/Vol] 0 10*3/uL 0.0 - 0.2 10*3/uL [facility] Basophils/100 WBC (Bld) 0.5 % 0.0 - 2.0 % [facility] Eosinophils (Bld) [#/Vol] 0.4 10*3/uL 0.0 - 0.5 10*3/uL [facility] Eosinophils/100 WBC (Bld) 4.3 % 0.0 - 6.0 % [facility] Erythrocyte distribution width (RBC) [Ratio] 13.6 % 11.5 - 15.0 % [facility] Hematocrit (Bld) [Volume fraction] 43.6 % 40.0 - 52.0 % [facility] Hemoglobin (Bld) [Mass/Vol] 14.7 g/dL 13.0 - 18.0 g/dL [facility] Immature granulocytes (Bld) [#/Vol] 0 10*3/uL NINF - 0.1 10*3/uL [facility] Immature granulocytes/100 WBC (Bld) 0.5 % 0.0 - 2.0 % [facility] Interpretation and review of laboratory results Normal [facility] Lymphocytes (Bld) [#/Vol] 2.1 10*3/uL 1.0 - 4.3 10*3/uL [facility] Lymphocytes/100 WBC (Bld) 24.2 % 15.0 - 45.0 % [facility] MCH (RBC) [Entitic mass] 30.4 pg 26. 0 - 34.0 pg [facility] MCHC (RBC) [Mass/Vol] 33.7 % 30.5 - 36.0 % [facility] MCV (RBC) [Entitic vol] 90.1 fL 77.0 - 99.0 fL [facility] Monocytes (Bld) [#/Vol] 0.6 10*3/uL 0.0 - 0.9 10*3/uL [facility] Monocytes/100 WBC (Bld) 6.7 % 5.0 - 13.0 % [facility] Neutrophils (Bld) [#/Vol] 5.5 10*3/uL 1.8 - 7.5 10*3/uL [facility] Neutrophils/100 WBC (Bld) 63.8 % 38.0 - 82.0 % [facility] Nucleated RBC/100 WBC (Bld) [Ratio] 0 % [facility] Platelet mean volume (Bld) [Entitic vol] 10.2 fL 9.0 - 12.7 fL [facility] Platelets (Bld) [#/Vol] 207 10*3/uL 140 - 440 10*3/uL [facility] RBC (Bld) [#/Vol] 4.84 10*6/uL 4.40 - 5.9 0 10*6/uL [facility] WBC (Bld) [#/Vol] 8.6 10*3/uL 3.6 - 10.7 10*3/uL [facility] CBC WITH AUTO DIFFERENTIALon 12-20-2024 Basophils (Bld) [#/Vol] 0.0 10*3/uL Normal 0.0-0.2 [facility] Comment on above: Performed By: #### L [id number] #### Rent And Housing Investigator: HAILEY HERNANDEZ ([id number]) [facility] [address] Basophils/100 WBC (Bld) 0.5 % Normal 0.0-2.0 [facility] Comment on above: Performed By: #### L [id number] #### Rent And Housing Investigator: HAILEY HERNANDEZ ([id number]) [facility] [place] ([facility] [address] Eosinophils (Bld) [#/Vol] 0.4 10*3/uL Normal 0.0-0.5 [facility] Comment on above: Performed By: #### L [id number] #### Rent And Housing Investigator: HAILEY HERNANDEZ ([id number]) [facility] [address] Eosinophils/100 WBC (Bld) 4.3 % Normal 0.0-6.0 [facility] Comment on above: Performed By: #### L [id number] #### Rent And Housing Investigator: HAILEY HERNANDEZ ([id number]) [facility] ([facility]) [address] Erythrocyte distribution width (RBC) [Ratio] 13.6 % Normal 11.5-15.0 [facility] Comment on above: Performed By: #### L [id number] #### Rent And Housing Investigator: HAILEY HERNANDEZ ([id number]) [facility] (SBAB) [address] [place] [address] Hematocrit (Bld) [Volume fraction] 43.6 % Normal 40.0-52.0 [facility] Comment on above: Performed By: #### L [id number] #### Rent And Housing Investigator: HAILEY HERNANDEZ ([phone]) [facility] (SBHLAB) [address] Hemoglobin (Bld) [Mass/Vol] 14.7 g/dL Normal 13.0-18.0 [facility] Comment on above: Performed By: #### L [id number] #### Rent And Housing Investigator: HAILEY HERNANDEZ ([id number]) [facility] (SBHLAB) [address] IMMATURE GRANS % 0.5 % Normal 0.0-2.0 [facility] Comment on above: Performed By: #### L [id number] #### Rent And Housing Investigator: HAILEY HERNANDEZ ([phone]) [facility] (SBHLAB) [address] IMMATURE GRANS ABSOLUTE 0.0 10*3/uL Normal <0.1 [facility] Comment on above: Performed By: #### L [id number] #### Rent And Housing Investigator: HAILEY HERNANDEZ ([phone]) [facility] (SBHLAB) [address] Lymphocytes (Bld) [#/Vol] 2.1 10*3/uL Normal 1.0-4.3 [facility] Comment on above: Performed By: #### L [id number] #### Rent And Housing Investigator: HAILEY HERNANDEZ ([id number]) [facility] (SBHLAB) [address] Lymphocytes/100 WBC (Bld) 24.2 % Normal 15.0-45.0 [facility] Comment on above: Performed By: #### L [id number] #### Rent And Housing Investigator: HAILEY HERNANDEZ ([id number]) [facility] ([facility]) [address] MCH (RBC) [Entitic mass] 30.4 pg Normal 26.0-34.0 [facility] Comment on above: Performed By: #### L [id number] #### Rent And Housing Investigator: HAILEY HERNANDEZ ([phone]) [facility] (SBHLAB) [address] MCHC 33.7 % Normal 30.5-36.0 [facility] Comment on above: Performed By: #### L [id number] #### Rent And Housing Investigator: HAILEY HERNANDEZ ([id number]) [facility] (SBHLAB) [address] MCV (RBC) [Entitic vol] 90.1 fL Normal 77.0-99.0 [facility] Comment on above: Performed By: #### L [id number] #### Rent And Housing Investigator: HAILEY HERNANDEZ ([id number]) [facility] [place] ([facility] [address] Monocytes (Bld) [#/Vol] 0.6 10*3/uL Normal 0.0-0.9 [facility] Comment on above: Performed By: #### L [id number] #### Rent And Housing Investigator: HAILEY HERNANDEZ ([id number]) [facility] ([facility] [address] Monocytes/100 WBC (Bld) 6.7 % Normal 5.0-13.0 [facility] Comment on above: Performed By: #### L [id number] #### Rent And Housing Investigator: HAILEY HERNANDEZ ([phone]) [facility] ([facility]) [address] NEUTROPHILS ABSOLUTE 5.5 10*3/uL Normal 1.8-7.5 [facility] Comment on above: Performed By: #### L [id number] #### Rent And Housing Investigator: HAILEY HERNANDEZ ([phone]) [facility] [place] [address] Neutrophils/100 WBC (Bld) 63.8 % Normal 38.0-82.0 [facility] Comment on above: Performed By: #### L [id number] #### Rent And Housing Investigator: HAILEY HERNANDEZ ([phone]) [facility] [place] ([facility]) [address] [place] [address] [place] NRBC 0.0 /100 WBCs Normal 0.0-2.0 [facility] Comment on above: Performed By: #### L [id number] #### Rent And Housing Investigator: HAILEY HERNANDEZ ([id number]) [facility] (SB[facility]) [address] Platelet mean volume (Bld) [Entitic vol] 10.2 fL Normal 9.0-12.7 [facility] Comment on above: Performed By: #### L [id number] #### Rent And Housing Investigator: HAILEYBERYL HERNANDEZ ([phone]) [facility] (SB[facility]AB) [address] Platelets (Bld) [#/Vol] 207 10*3/uL Normal 140-440 [facility] Comment on above: Performed By: #### L [id number] #### Rent And Housing Investigator: HAILEY DAVID ([id number]) [facility] (SBHLAB) [address] RBC (Bld) [#/Vol] 4.84 10*6/uL Normal 4.40-5.90 [facility] Comment on above: Performed By: #### L [id number] #### Rent And Housing Investigator: HAILEY DAVID ([phone]) [facility] ([place]) [address] WBC (Bld) [#/Vol] 8.6 10*3/uL Normal 3.6-10.7 [facility] Comment on above: Performed By: #### L [id number] #### Rent And Housing Investigator: HAILEY HERNANDEZ ([id number]) [facility] (SBHLAB) [address] [place] [address] CT HEAD NECK ANGIO W AND WO IV CONTRASTon 12-20-2024 CT HEAD NECK ANGIO W AND WO IV CONTRAST [facility] 1955 [id number] Exam Date/Time: 12/20/2024 10:09 Procedure: CT HEAD [...] The V4 segments , basilar artery and tugboat operator are patent and normal in caliber. The [...] , cardiac or vascular cause suspected Normal [facility] CT HEAD WO IV CONTRASTon CT HEAD WO IV CONTRAST Patient Name: JOSEPH BROWN : 1955 [facility]#: [id number] Exam Date/Time: 12/20/2024 09:29 Procedure: CT HEAD [...] month ago and 3 weeks ago. Normal [facility] CT Head WO contraston 2024 1. No acute intracranial abnormality. Chronic microvascular change. 2. Fairly extensive paranasal sinus disease. Report Dictated on Electronically Signed By: Haresh Reyes MD Electronically Signed Date/Time: 12/20/2024 10:05 AM [facility] [employer] [facility] Patient Name: JOSEPH [facility] 1955 [id number] Exam Date/Time: 12/20/2024 09:29 Procedure: CT HEAD [...] Soft tissues: The soft tissues are unremarkable. [facility] Haresh Reyes MD - 12/20/2024 Patient Name: JOSEPH BROWN : 1955 [facility]#: [id number] Exam Date/Time: 12/20/2024 09:29 Procedure: CT HEAD [...] MD Electronically Signed Date/Time: 12/20/2024 10:[address] [facility] Radiology Study observation (narrative) [facility] CTA Head vessels and Neck ve ssels WO and W contrast Emma 12-20-2024 No large vessel occlusion or high-grade stenosis in the head or neck. Less than 30 percent stenosis of the proximal cervical ICAs bilaterally by NASCET criteria. 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 The proximal SCAs, AICAs and PICAs are patent. The superior sagittal sinus, straight sinus, confluence, transverse and sigmoid sinuses are patent. [facility] Jerardo Magallanes MD - 12/20/2024 Patient Name: JOSEPH BROWN : 1955 [facility]#: [id number] Exam Date/Time: 12/20/2024 10:09 Procedure: CT HEAD [...] The V4 segments , basilar artery and tugboat operator are patent and normal in caliber. The [...] Electronically Signed Date/Time: 12/20/2024 11:17 AM EST [facility] Radiology Study observation (narrative) [facility] CTA Head vessels and Neck ve ssels WO and W contrast IVOrdered By: Jerardo Magallanes on 12-20-2024 [facility] Work Phone: ED Nursing Noteon 12-20-2024 ED [...] month ago and 3 weeks ago. Normal [facility] ED Provider Noteon ED Provider Note EMERGENCY [...] Alcohol use: No Drug use: No SCREENINGS [place] Coma Scale Best Eye Response: Spontaneous Best [...] [facility] (Per Emergency Physician): Interpretation per the [...] Workstation: [id number] (more content not included)... Normal [facility] HIGH SENSITIVITY TROPONIN, S ERIAL BASELINEon 12-20-2024 TROPONIN HS SERIAL BASELINE <3 Normal <=35 [facility] Comment on above: Result Comment: In i ndividuals presenting with symptoms > 2h, a baseline troponin <= 5 ng/L suggests acute cardiac injury is unlikely and further serial testing is generally not indicated. Performed By: #### L AB15, [id number] ####Rent And Housing Investigator: HAILEY HERNANDEZ ([id number])[facility] (SBHLAB)[address] HIGH SENSITIVITY TROPONIN, S ERIAL, SECOND TESTon 12-20-2024 2H TROPONIN HS (SERIAL 2ND TROPONIN) 3 ng/L Normal <=35 [facility] Comment on above: Result Comment: Delt a value was unable to be calculated as both baseline and serial troponin tests were below the level of quantitation. As both baseline and 2h troponin values are below the level of quantitation, acute cardiac injury is unlikely. Performed By: #### L [id number] ####Rent And Housing Investigator: HAILEY BREWERELVIRA ([phone])[facility] (SBAB)[address] [place] [address] No Panel Informationon 12-20 P Webster 46 degrees [facility] CT Interval 126 ms [facility] QRS Webster -7 degrees [facility] QRSD Interval 102 ms [facility] h QT Interval 416 ms [facility] QTC Interval 463 ms [facility] T Wave Webster 45 degrees [facility] Cydney Cantu, - 12/20/2024 IMPRESSION: Sinus rhythm Abnormal R-wave progression, early transition Minimal ST depression, lateral leads Electronically Signed On 12-20-2024 15:38:23 EST by Cydney Cantu [facility] 2h Troponin HS (Serial 2nd Troponin) 3 ng/L NINF - 35 ng/L [facility] Comment on above: Delta value was unab le to be calculated as both baseline and serial troponin tests were below the level of quantitation. As both baseline and 2h troponin values are below the level of quantitation, acute cardiac injury is unlikely. Interpretation and review of laboratory results Normal [facility] Interpretation and review of laboratory results Normal [facility] Troponin HS Serial Baseline ng/L NINF - 35 ng/L [facility] Comment on above: In individuals prese nting with symptoms > 2h, a baseline troponin <= 5 ng/L suggests acute cardiac injury is unlikely and further serial testing is generally not indicated. [facility] Vital signson 12-20-2024 Heart rate 74 /min bpm [facility] XR Chest Single viewon 12-20 No acute cardiopulmonary abnormality identified. Report Dictated on Electronically Signed By: Haresh Reyes MD Electronically Signed Date/Time: 12/20/2024 9:31 AM EST [facility] Patient Name: JOSEPH BROWN : [...] osseous abnormality is demonstrated. Other findings: None. [facility] Haresh Reyes MD - 12/20/2024 Patient [...] Electronically Signed Date/Time: 12/20/2024 9:31 AM EST [facility] Radiology Study observation (narrative) [facility] XR Chest Single viewOrdered By: Haresh Reyes on 12-20-2024 [employer] Work Phone: MRI Spine Lumbar w/o Contras ton 08-28-2021 MRI Spine Lumbar w/o Contrast Patient Name: JOSEPH BROWN Magnetic Resonance Imaging ACCESSION EXAM DATE/TIME PROCEDURE ORDERING PROVIDER [id number] 08/28/2021 08:20 EST MRI Spine Lumbar w/o DO DING LINDA J Contrast CPT code 57651 Reason For Exam (MRI Spine Lumbar w/o [...] NEIL Transcribed Date and Time: 08/30/2021 3:46 [facility] CR Chest PA/LATon 04-06-2021 CR Chest PA/LAT [id number] Radiology ACCESSION EXAM DATE/TIME PROCEDURE ORDERING PROVIDER [id number] 04/06/2021 12:20 EDT CR Chest PA and LAT CAROLINA FRANCOIS CPT code 82424 Reason For Exam (CR Chest PA and LAT) ANATOMIC PATHOLOGIST/SOB Report CHEST X-RAY PA/LATERAL CLINICAL INDICATION: Shortness [...] Transcribed Date and Time: 04/06/2021 1:25 Normal [facility] XR CHEST (2 VW)Ordered By: Rita Francois on 04-06-2021 Patient Name: JOSEPH BROWN Diagnostic Radiology ACCESSION EXAM DATE/TIME PROCEDURE ORDERING PROVIDER [id number] 04/06/2021 12:20 EDT CR Chest PA & LAT CAROLINA FRANCOIS CPT code 43245 Reason For Exam (CR Chest PA & LAT) ANATOMIC PATHOLOGIST/SOB Report CHEST X-RAY PA/LATERAL CLINICAL INDICATION: Shortness [...] R Transcribed Date and Time: 04/06/2021 1:25 [facility] Work Phone: [facility] Incoming Radiology Results From [facility] - 04/06/2021 1:25 PM EDT Patient Name: JOSEPH BROWN Diagnostic Radiology ACCESSION EXAM DATE/TIME PROCEDURE ORDERING PROVIDER [id number] 04/06/2021 12:20 EDT CR Chest PA & LAT CAROLINA FRANCOIS CPT code 32062 Reason For Exam (CR Chest PA & LAT) ANATOMIC PATHOLOGIST/SOB Report CHEST X-RAY PA/LATERAL CLINICAL INDICATION: Shortness [...] R Transcribed Date and Time: 04/06/2021 1:25 [facility] Work Phone: [facility] Work Phone: CR Chest PA/LATon 12-09-2020 CR Chest PA/LAT Patient Name: JOSEPH BROWN Diagnostic Radiology ACCESSION EXAM DATE/TIME PROCEDURE ORDERING PROVIDER [id number] 12/09/2020 12:30 EST CR Chest PA and LAT CAROLINA FRANCOSI CPT code 28386 Reason For Exam (CR Chest PA and [...] Transcribed Date and Time: 12/09/2020 2:00 Normal [facility] ECHO Complete 2D W Doppler W Coloron 12-09-2020 TRANSTHORACIC ECHOCARDIOGRAM PATIENT: Joseph Brown STUDY DATE: 12/09/2020 : 1955 AGE: 65 HT/WT: 182.9 cm (72 94.3 kg in) (207.6 lb) GENDER: M BP: 131 / 67 LOCATION: [facility] PATIENT Outpatient [facility] STATUS: *ORDERING PHYSICIAN: * Eve Gómez *READING PHYSICIAN: * Ck Estrada MD *STEM THRESHING MACHINE OPERATOR: * Heather Galicia RCS INDICATIONS: LV FX. [...] Ck Estrada MD 12/09/2020 14:45 Prior Signatures: [facility] Work Phone: [facility] Incoming Cardiology Results From [facility] - 12/09/2020 2:46 PM EST TRANSTHORACIC ECHOCARDIOGRAM PATIENT: Joseph Brown STUDY DATE: 12/09/2020 : 1955 AGE: 65 HT/WT: 182.9 cm (72 94.3 kg in) (207.6 lb) GENDER: M BP: 131 / 67 LOCATION: [facility] PATIENT Outpatient [facility] STATUS: *ORDERING PHYSICIAN: * Eve Gómez *READING PHYSICIAN: * Ck Estrada MD *STEM THRESHING MACHINE OPERATOR: * Heather White RCS INDICATIONS: LV FX. [...] Ultrasound ACCESSION EXAM DATE/TIME PROCEDURE ORDERING PROVIDER [id number] 12/09/2020 14:06 EST Echo Complete w/wo LUTE, FARM OR RANCH ANIMAL CARETAKER, EVE Arteaga. Contrast Reason For Exam (Echo Complete w/wo Contrast) LV function Report TRANSTHORACIC ECHOCARDIOGRAM PATIENT: Joseph Brown STUDY DATE: 12/09/2020 : 1955 AGE: 65 HT/WT: 182.9 cm (72 94.3 kg in) (207.6 lb) GENDER: M BP: 131 / 67 LOCATION: [facility] PATIENT Outpatient [facility] STATUS: *ORDERING PHYSICIAN: * Eve Gómez *READING PHYSICIAN: * Ck Estrada MD *STEM THRESHING MACHINE OPERATOR: * Heather Galicia RCS INDICATIONS: LV FX. [...] Stroke volum (more content not included)... Normal [facility] XR CHEST (2 VW)on 12-09-2020 [facility]: [id number]iology ACCESSION EXAM DATE/TIME PROCEDURE ORDERING PROVIDER [id number] 12/09/2020 12:30 EST CR Chest PA & LAT FRANCOISARI MORAESROOR CPT code 94265 Reason For Exam (CR Chest PA & [...] ROBERT Transcribed Date and Time: 12/09/2020 2:00 [facility] Work Phone: [facility] Incoming Radiology Results From [facility] - 12/09/2020 2:00 PM EST Patient Name: JOSEPH BROWN Diagnostic Radiology ACCESSION EXAM DATE/TIME PROCEDURE ORDERING PROVIDER [id number] 12/09/2020 12:30 EST CR Chest PA & LAT ARI FRANCOISROOR CPT code 78094 Reason For Exam (CR Chest PA & [...] Panelon 10-17 Anion gap [Moles/Vol] 6 mmol/L [place] Calcium [Mass/Vol] 8.7 mg/dL 8.4 - 10. 4 mg/dL [place] Chloride [Moles/Vol] 110 mmol/L High 98 - 10 7 mmol/L [place] CO2 [Moles/Vol] 24 mmol/L 22 - 30 mmol/L [place] Creatinine [Mass/Vol] 0.64 mg/dL 0.52 - 1.25 mg/dL [place] EGFR IF NonAfrican Taiwanese >90.0 >60 mL/min [place] Comment on above: KDIGO guidelines pro [...] MDRD (S/P/Bld) [Vol rate/Area] mL/min/{1.73_m2} >60 mL/min [place] Glucose [Mass/Vol] 119 mg/dL High 70 - 100 mg/dL [place] Potassium [Moles/Vol] 3.8 mmol/L 3.5 - 5.1 mmol/L [place] Sodium [Moles/Vol] 140 mmol/L 135 - 145 mmol/L [place] Urea nitrogen [Mass/Vol] 32 mg/dL High 7 - 20 mg/d L [place] CBCon 11-04-2020 Erythrocyte distribution width (RBC) [Ratio] 14.7 % High 11.5 - 14.5 % [place] Hematocrit (Bld) [Volume fraction] 30.8 % Low 40 - 52 % [place] Hemoglobin (Bld) [Mass/Vol] 10.0 g/dL Low 13 - 18 g/dL [place] Interpretation and review of laboratory results Abnormal [place] MCH (RBC) [Entitic mass] 30.0 pg 26 - 34 pg [place] MCHC (RBC) [Mass/Vol] 32.4 % 32 - 36 % [place] MCV (RBC) [Entitic vol] 92.4 fL 80 - 98 fL [place] Platelet mean volume (Bld) [Entitic vol] 8.0 fL 7.4 - 10.4 fL [place] Platelets (Bld) [#/Vol] 439 10*3/uL 140 - 440 10*3/uL [place] RBC (Bld) [#/Vol] 3.33 10*6/uL Low 4.4 - 5.9 10*6/uL [place] WBC (Bld) [#/Vol] 11.6 10*3/uL High 3.6 - 10.7 10*3/uL [place] Test Performed by [employer] [facility], [address], [place], [place] [id number] [place] [address] Calcium, Ionizedon Interpretation and review of laboratory results Abnormal [place] Ionized Ca 4.10 mg/dL Low 4.3 - 5.2 mg/dL [place] pH (Bld) 7.48 [pH] High [place] Test Performed by [facility], [address] [place], [place] [id number] [place] [address] D-Dimer, Quantitativeon 10-17 D-Dimer, Quant 8.16 mg/L High 0 - 0.5 mg/L [place], [place] Comment on above: [employer] D-Dimer va lues of <0.50 mg/L FEU can be used in combination with a pre-test probability model (e.g. Well's) to exclude pulmonary embolism (PE) disease, as well as an aid in the diagnosis of deep vein thrombosis (DVT). Interpretation and review of laboratory results Abnormal [place] Test Performed by [facility], [address] [place], [place] [id number] [place] [address] Ferritinon 11-04-2020 Ferritin [Mass/Vol] 867 ng/mL High 18 - 464 ng/mL [place] Interpretation and review of laboratory results Abnormal [place] Test Performed by [facility], [address] Hepatic Function Panelon Albumin [Mass/Vol] 3.2 g/dL Low 3.5 - 5 g/dL [place] ALP [Catalytic activity/Vol] 73 U/L 38 - 126 U/L [place] ALT [Catalytic activity/Vol] 200 U/L High 0 - 49 U/L [place] Comment on above: The ALT test is perf ormed by an updated assay method. Please note that the reference intervals have been changed and are now sex specific. AST [Catalytic activity/Vol] 55 U/L High 15 - 46 U/L [place] Bilirubin Ql (U) 0.7 mg/dL 0.2 - 1.3 mg/dL [place] Bilirubin.direct [Mass/Vol] 0.0 mg/dL 0 - 0.3 mg/dL [place] Protein [Mass/Vol] 6.5 g/dL 6.3 - 8.2 g/dL [place] Magnesiumon 11-04-2020 Magnesium [Mass/Vol] 2.3 mg/dL 1.6 - 2 .3 mg/dL [place] Otheron 11-04-2020 Interpretation and review of laboratory results Abnormal [place] Test Performed by [facility], [address], [place], [place] [address] [place] Phosphoruson 11-04-2020 Phosphate [Mass/Vol] 4.3 mg/dL 2.5 - 4 .5 mg/dL [place] Basic Metabolic Panelon 10-16 Anion gap [Moles/Vol] 4 mmol/L [place] Calcium [Mass/Vol] 8.8 mg/dL 8.4 - 10. 4 mg/dL [place] Chloride [Moles/Vol] 113 mmol/L High 98 - 10 7 mmol/L [place] CO2 [Moles/Vol] 26 mmol/L 22 - 30 mmol/L [place] Creatinine [Mass/Vol] 0.62 mg/dL 0.52 - 1.25 mg/dL [place] EGFR IF NonAfrican Taiwanese >90.0 >60 mL/min [place] Comment on above: KDIGO guidelines pro [...] MDRD (S/P/Bld) [Vol rate/Area] mL/min/{1.73_m2} >60 mL/min [place] Glucose [Mass/Vol] 139 mg/dL High 70 - 100 mg/dL [place] Potassium [Moles/Vol] 3.8 mmol/L 3.5 - 5.1 mmol/L [place] Sodium [Moles/Vol] 143 mmol/L 135 - 145 mmol/L [place] Urea nitrogen [Mass/Vol] 42 mg/dL High 7 - 20 mg/d L [place] CBCon 11-03-2020 Erythrocyte distribution width (RBC) [Ratio] 14.6 % High 11.5 - 14.5 % [place] Hematocrit (Bld) [Volume fraction] 33.8 % Low 40 - 52 % [place] Hemoglobin (Bld) [Mass/Vol] 11.0 g/dL Low 13 - 18 g/dL [place] Interpretation and review of laboratory results Abnormal [place] MCH (RBC) [Entitic mass] 30.1 pg 26 - 34 pg [place] MCHC (RBC) [Mass/Vol] 32.4 % 32 - 36 % [place] MCV (RBC) [Entitic vol] 92.8 fL 80 - 98 fL [place] Platelet mean volume (Bld) [Entitic vol] 8.2 fL 7.4 - 10.4 fL [place] Platelets (Bld) [#/Vol] 305 10*3/uL 140 - 440 10*3/uL [place] RBC (Bld) [#/Vol] 3.64 10*6/uL Low 4.4 - 5.9 10*6/uL [place] WBC (Bld) [#/Vol] 9.5 10*3/uL 3.6 - 10.7 10*3/uL [place] Test Performed by [facility] [employer] [facility], [address], [place], [place] [id number] [place] [address] Calcium, Ionizedon Interpretation and review of laboratory results Abnormal [place] Ionized Ca 4.50 mg/dL 4.3 - 5.2 mg/dL [place] pH (Bld) 7.51 [pH] High [place] Test Performed by [facility], [address], [place], [place] [address] [place] Magnesiumon 11-03-2020 Magnesium [Mass/Vol] 2.5 mg/dL High 1.6 - 2 .3 mg/dL [place] Otheron 11-03-2020 Interpretation and review of laboratory results Abnormal [place] Test Performed by [facility], [address], [place], [place] [address] [place] Phosphoruson 11-03-2020 Phosphate [Mass/Vol] 3.9 mg/dL 2.5 - 4 .5 mg/dL [place] C-Reactive Proteinon 021 CRP [Mass/Vol] 43.8 mg/L High 0 - 6 mg/L [place], [place] Comment on above: . CBC Auto Differentialon 10-16 Absolute Baso # 0.0 10*3/uL 0 - 0.2 10*3/uL [place] Absolute Neut # 6.9 10*3/uL 1.8 - 7 10*3/uL [place] Basophils/100 WBC (Bld) 0.5 % 0 - 2 % [place] Eosinophils (Bld) [#/Vol] 0.0 10*3/uL 0 - 0.5 10*3/uL [place] Eosinophils/100 WBC (Bld) 0.0 % Low 1 - 6 % [place] Erythrocyte distribution width (RBC) [Ratio] 14.5 % 11.5 - 14.5 % [place] Granulocytes/100 WBC (Bld) 84.0 % High 40 - 80 % [place] Hematocrit (Bld) [Volume fraction] 30.8 % Low 40 - 52 % [place] Hemoglobin (Bld) [Mass/Vol] 10.3 g/dL Low 13 - 18 g/dL [place] Interpretation and review of laboratory results Abnormal [place] Lymphocytes (Bld) [#/Vol] 0.7 10*3/uL Low 1 - 4.3 10*3/uL [place] Lymphocytes/100 WBC (Bld) 8.3 % Low 20 - 40 % [place] MCH (RBC) [Entitic mass] 30.4 pg 26 - 34 pg [place] MCHC (RBC) [Mass/Vol] 33.5 % 32 - 36 % [place] MCV (RBC) [Entitic vol] 90.8 fL 80 - 98 fL [place] Monocytes (Bld) [#/Vol] 0.6 10*3/uL 0 - 0.8 10*3/uL [place] Monocytes/100 WBC (Bld) 7.2 % 2 - 10 % [place] Platelet mean volume (Bld) [Entitic vol] 8.1 fL 7.4 - 10.4 fL [place] Platelets (Bld) [#/Vol] 352 10*3/uL 140 - 440 10*3/uL [place] RBC (Bld) [#/Vol] 3.39 10*6/uL Low 4.4 - 5.9 10*6/uL [place] WBC (Bld) [#/Vol] 8.2 10*3/uL 3.6 - 10.7 10*3/uL [place] Test Performed by [facility], [address] [place], [place] [id number] [place] [address] Calcium, Ionizedon Ionized Ca 4.70 mg/dL 4.3 - 5.2 mg/dL [place] pH (Bld) 7.45 [pH] [place] Test Performed by [facility], [address] [place], [place] [address] [place] Comprehensive Metabolic Pane l w/ Reflex to MGon 11-02-2020 Albumin [Mass/Vol] 2.8 g/dL Low 3.5 - 5 g/dL [place] ALP [Catalytic activity/Vol] 71 U/L 38 - 126 U/L [place] ALT [Catalytic activity/Vol] 221 U/L High 0 - 49 U/L [place] Comment on above: The ALT test is perf ormed by an updated assay method. Please note that the reference intervals have been changed and are now sex specific. Anion gap [Moles/Vol] 4 mmol/L [place] AST [Catalytic activity/Vol] 101 U/L High 15 - 46 U/L [place] Bilirubin Ql (U) 0.7 mg/dL 0.2 - 1.3 mg/dL [place] Calcium [Mass/Vol] 8.4 mg/dL 8.4 - 10. 4 mg/dL [place] Chloride [Moles/Vol] 112 mmol/L High 98 - 10 7 mmol/L [place] CO2 [Moles/Vol] 29 mmol/L 22 - 30 mmol/L [place] Creatinine [Mass/Vol] 0.63 mg/dL 0.52 - 1.25 mg/dL [place] EGFR IF NonAfrican Taiwanese >90.0 >60 mL/min [place] Comment on above: KDIGO guidelines pro [...] MDRD (S/P/Bld) [Vol rate/Area] mL/min/{1.73_m2} >60 mL/min [place] Glucose [Mass/Vol] 138 mg/dL High 70 - 100 mg/dL [place] Potassium [Moles/Vol] 3.8 mmol/L 3.5 - 5.1 mmol/L [place] Protein [Mass/Vol] 6.2 g/dL Low 6.3 - 8.2 g/dL [place] Sodium [Moles/Vol] 145 mmol/L 135 - 145 mmol/L [place] Urea nitrogen [Mass/Vol] 40 mg/dL High 7 - 20 mg/d L [place] D-Dimer, Quantitativeon 10-16 D-Dimer, Quant 4.08 mg/L High 0 - 0.5 mg/L [place], [place] Comment on above: [employer] D-Dimer va lues of <0.50 mg/L FEU can be used in combination with a pre-test probability model (e.g. Well's) to exclude pulmonary embolism (PE) disease, as well as an aid in the diagnosis of deep vein thrombosis (DVT). Interpretation and review of laboratory results Abnormal [facility] [employer] Test Performed by [employer] [facility], [address] Ferritinon 11-02-2020 Ferritin [Mass/Vol] 1060 ng/mL High 18 - 464 ng/mL [place] Interpretation and review of laboratory results Abnormal [place] Test Performed by [employer], [address] Lactate Dehydrogenaseon 10-16 LD 349 U/L High 120 - 246 U/L [place] Magnesiumon 11-02-2020 Magnesium [Mass/Vol] 2.5 mg/dL High 1.6 - 2 .3 mg/dL [place] Otheron 11-02-2020 Interpretation and review of laboratory results Abnormal [place] Test Performed by [employer], [address] Phosphoruson 11-02-2020 Interpretation and review of laboratory results Abnormal [place] Phosphate [Mass/Vol] 4.6 mg/dL High 2.5 - 4 .5 mg/dL [place] Test Performed by [facility] [employer] [facility], [address], [place], [place] [address] [place] C-Reactive Proteinon 021 CRP [Mass/Vol] 73.8 mg/L High 0 - 6 mg/L [place] Comment on above: . CBC Auto Differentialon 10-16 Absolute Baso # 0.1 10*3/uL 0 - 0.2 10*3/uL [place] Absolute Neut # 6.9 10*3/uL 1.8 - 7 10*3/uL [place] Basophils/100 WBC (Bld) 0.7 % 0 - 2 % [place] Eosinophils (Bld) [#/Vol] 0.1 10*3/uL 0 - 0.5 10*3/uL [place] Eosinophils/100 WBC (Bld) 1.0 % 1 - 6 % [place] Erythrocyte distribution width (RBC) [Ratio] 14.5 % 11.5 - 14.5 % [place] Granulocytes/100 WBC (Bld) 80.4 % High 40 - 80 % [place] Hematocrit (Bld) [Volume fraction] 31.0 % Low 40 - 52 % [place] Hemoglobin (Bld) [Mass/Vol] 10.4 g/dL Low 13 - 18 g/dL [place] Interpretation and review of laboratory results Abnormal [place] Lymphocytes (Bld) [#/Vol] 0.7 10*3/uL Low 1 - 4.3 10*3/uL [place] Lymphocytes/100 WBC (Bld) 7.8 % Low 20 - 40 % [place] MCH (RBC) [Entitic mass] 30.6 pg 26 - 34 pg [place] MCHC (RBC) [Mass/Vol] 33.4 % 32 - 36 % [place] MCV (RBC) [Entitic vol] 91.5 fL 80 - 98 fL [place] Monocytes (Bld) [#/Vol] 0.9 10*3/uL High 0 - 0.8 10*3/uL [place] Monocytes/100 WBC (Bld) 10.1 % High 2 - 10 % [place] Platelet mean volume (Bld) [Entitic vol] 8.1 fL 7.4 - 10.4 fL [place] Platelets (Bld) [#/Vol] 321 10*3/uL 140 - 440 10*3/uL [place] RBC (Bld) [#/Vol] 3.39 10*6/uL Low 4.4 - 5.9 10*6/uL [place] WBC (Bld) [#/Vol] 8.5 10*3/uL 3.6 - 10.7 10*3/uL [place] Test Performed by [facility], [address] [place], [place] [id number] [place] [address] Calcium, Ionizedon 1 Ionized Ca 4.50 mg/dL 4.3 - 5.2 mg/dL [place] pH (Bld) 7.45 [pH] [place] Test Performed by [facility], [address] [place], [place] [id number] [place] [address] Comprehensive Metabolic Pane l w/ Reflex to MGon 11-01-2020 Albumin [Mass/Vol] 2.8 g/dL Low 3.5 - 5 g/dL [place] ALP [Catalytic activity/Vol] 75 U/L 38 - 126 U/L [place] ALT [Catalytic activity/Vol] 172 U/L High 0 - 49 U/L [place] Comment on above: The ALT test is perf ormed by an updated assay method. Please note that the reference intervals have been changed and are now sex specific. Anion gap [Moles/Vol] 3 mmol/L [place] AST [Catalytic activity/Vol] 111 U/L High 15 - 46 U/L [place] Bilirubin Ql (U) 0.7 mg/dL 0.2 - 1.3 mg/dL [place] Calcium [Mass/Vol] 8.3 mg/dL Low 8.4 - 10. 4 mg/dL [place] Chloride [Moles/Vol] 107 mmol/L 98 - 10 7 mmol/L [place] CO2 [Moles/Vol] 30 mmol/L 22 - 30 mmol/L [place] Creatinine [Mass/Vol] 0.65 mg/dL 0.52 - 1.25 mg/dL [place] EGFR IF NonAfrican Taiwanese >90.0 >60 mL/min [place] Comment on above: KDIGO guidelines pro [...] MDRD (S/P/Bld) [Vol rate/Area] mL/min/{1.73_m2} >60 mL/min [place] Glucose [Mass/Vol] 130 mg/dL High 70 - 100 mg/dL [place] Potassium [Moles/Vol] 3.9 mmol/L 3.5 - 5.1 mmol/L [place] Protein [Mass/Vol] 6.2 g/dL Low 6.3 - 8.2 g/dL [place] Sodium [Moles/Vol] 140 mmol/L 135 - 145 mmol/L [place] Urea nitrogen [Mass/Vol] 36 mg/dL High 7 - 20 mg/d L [facility], [place] D-Dimer, Quantitativeon 10-16 D-Dimer, Quant 4.04 mg/L High 0 - 0.5 mg/L [place] Comment on above: [employer] D-Dimer va lues of <0.50 mg/L FEU can be used in combination with a pre-test probability model (e.g. Well's) to exclude pulmonary embolism (PE) disease, as well as an aid in the diagnosis of deep vein thrombosis (DVT). Interpretation and review of laboratory results Abnormal [place] Test Performed by [facility], [address] Ferritinon 11-01-2020 Ferritin [Mass/Vol] 1040 ng/mL High 18 - 464 ng/mL [place] Interpretation and review of laboratory results Abnormal [place] Test Performed by [facility], [address], [address] Lactate Dehydrogenaseon 10-16 LD 363 U/L High 120 - 246 U/L [place] Magnesiumon 11-01-2020 Magnesium [Mass/Vol] 2.4 mg/dL High 1.6 - 2 .3 mg/dL [place] Otheron 11-01-2020 Interpretation and review of laboratory results Abnormal [place] Test Performed by [employer] [facility], [address] [place], [address] Phosphoruson 11-01-2020 Phosphate [Mass/Vol] 4.1 mg/dL 2.5 - 4 .5 mg/dL [place] Test Performed by [employer] [facility], [address] C-Reactive Proteinon 021 CRP [Mass/Vol] 123.9 mg/L High 0 - 6 mg/L [place] Comment on above: . Interpretation and review of laboratory results Abnormal [place] Test Performed by [facility], [address], [place], [place] [address] [place] CBC Auto Differentialon 10-16 Absolute Baso # 0.0 10*3/uL 0 - 0.2 10*3/uL [place] Absolute Neut # 7.7 10*3/uL High 1.8 - 7 10*3/uL [place] Basophils/100 WBC (Bld) 0.3 % 0 - 2 % [place] Eosinophils (Bld) [#/Vol] 0.2 10*3/uL 0 - 0.5 10*3/uL [place] Eosinophils/100 WBC (Bld) 2.2 % 1 - 6 % [place] Erythrocyte distribution width (RBC) [Ratio] 14.4 % 11.5 - 14.5 % [place] Granulocytes/100 WBC (Bld) 79.4 % 40 - 80 % [place] Hematocrit (Bld) [Volume fraction] 31.1 % Low 40 - 52 % [place] Hemoglobin (Bld) [Mass/Vol] 10.2 g/dL Low 13 - 18 g/dL [place] Interpretation and review of laboratory results Abnormal [place] Lymphocytes (Bld) [#/Vol] 0.8 10*3/uL Low 1 - 4.3 10*3/uL [place] Lymphocytes/100 WBC (Bld) 8.4 % Low 20 - 40 % [place] MCH (RBC) [Entitic mass] 29.9 pg 26 - 34 pg [place] MCHC (RBC) [Mass/Vol] 32.8 % 32 - 36 % [place] MCV (RBC) [Entitic vol] 91.2 fL 80 - 98 fL [place] Monocytes (Bld) [#/Vol] 0.9 10*3/uL High 0 - 0.8 10*3/uL [place] Monocytes/100 WBC (Bld) 9.7 % 2 - 10 % [place] Platelet mean volume (Bld) [Entitic vol] 8.2 fL 7.4 - 10.4 fL [place] Platelets (Bld) [#/Vol] 316 10*3/uL 140 - 440 10*3/uL [place] RBC (Bld) [#/Vol] 3.41 10*6/uL Low 4.4 - 5.9 10*6/uL [place] WBC (Bld) [#/Vol] 9.7 10*3/uL 3.6 - 10.7 10*3/uL [place] Calcium, Ionizedon Ionized Ca 4.50 mg/dL 4.3 - 5.2 mg/dL [place] pH (Bld) 7.42 [pH] [place] Comprehensive Metabolic Pane l w/ Reflex to MGon 10-31-2020 Albumin [Mass/Vol] 2.7 g/dL Low 3.5 - 5 g/dL [place] ALP [Catalytic activity/Vol] 70 U/L 38 - 126 U/L [place] ALT [Catalytic activity/Vol] 117 U/L High 0 - 49 U/L [place] Comment on above: The ALT test is perf ormed by an updated assay method. Please note that the reference intervals have been changed and are now sex specific. Anion gap [Moles/Vol] 3 mmol/L [place] AST [Catalytic activity/Vol] 86 U/L High 15 - 46 U/L [place] Bilirubin Ql (U) 0.7 mg/dL 0.2 - 1.3 mg/dL [place] Calcium [Mass/Vol] 8.2 mg/dL Low 8.4 - 10. 4 mg/dL [place] Chloride [Moles/Vol] 106 mmol/L 98 - 10 7 mmol/L [place] CO2 [Moles/Vol] 31 mmol/L High 22 - 30 mmol/L [place] Creatinine [Mass/Vol] 0.69 mg/dL 0.52 - 1.25 mg/dL [place] EGFR IF NonAfrican Taiwanese >90.0 >60 mL/min [place] Comment on above: KDIGO guidelines pro [...] MDRD (S/P/Bld) [Vol rate/Area] mL/min/{1.73_m2} >60 mL/min [place] Glucose [Mass/Vol] 135 mg/dL High 70 - 100 mg/dL [place] Potassium [Moles/Vol] 4.5 mmol/L 3.5 - 5.1 mmol/L [place] Protein [Mass/Vol] 6.1 g/dL Low 6.3 - 8.2 g/dL [place] Sodium [Moles/Vol] 140 mmol/L 135 - 145 mmol/L [place] Urea nitrogen [Mass/Vol] 38 mg/dL High 7 - 20 mg/d L [place] D-Dimer, Quantitativeon 10-16 D-Dimer, Quant 5.26 mg/L High 0 - 0.5 mg/L [place] Comment on above: [employer] D-Dimer va lues of <0.50 mg/L FEU can be used in combination with a pre-test probability model (e.g. Well's) to exclude pulmonary embolism (PE) disease, as well as an aid in the diagnosis of deep vein thrombosis (DVT). Interpretation and review of laboratory results Abnormal [place] Test Performed by [employer] [facility], [address] [place] [id number] [facility] [place], [place] Ferritinon 10-31-2020 Ferritin [Mass/Vol] 957 ng/mL High 18 - 464 ng/mL [place] Interpretation and review of laboratory results Abnormal [place] Test Performed by [facility], [address], [address] Lactate Dehydrogenaseon 10-16 LD 310 U/L High 120 - 246 U/L [place] Magnesiumon 10-31-2020 Magnesium [Mass/Vol] 2.5 mg/dL High 1.6 - 2 .3 mg/dL [place] Otheron 10-31-2020 Interpretation and review of laboratory results Abnormal [place] Test Performed by [facility], [address], [address] Test Performed by [facility], [address], [address] POCT Arterialon 10-31-2020 Base Excess, Arterial 3.4 mmol/L High -3 - 3 mmol/L [place] HCO3, Arterial 27.4 mmol/L High 21 - 25 mmol/L [place] Interpretation and review of laboratory results Abnormal [place] Oxygen saturation in Blood 97.4 % 95 - 100 % [place] pCO2, Arterial 38.8 mm[Hg] 35 - 45 mm[Hg] [place] pH, Arterial 7.458 High [place] pO2, Arterial 89.7 mm[Hg] 80 - 100 mm[Hg] [place] Sodium [Moles/Vol] 40 mmol/L [place] Comment on above: Performed by [facility] ID : [id number] [place], [place] TCO2, Arterial 28.6 mmol/L High 23 - 27 mmol/L [place] Test Performed by [facility], [address] Phosphoruson 10-31-2020 Phosphate [Mass/Vol] 3.8 mg/dL 2.5 - 4 .5 mg/dL [place] Test Performed by [facility], [address], [place], [place] [address] [place] XR CHEST PORTABLEon 10-31-19 21 [facility], [facility] Incoming Radiology Results From [facility] - 10/31/2020 10:57 AM EST Patient Name: JOSEPH BROWN Diagnostic Radiology ACCESSION EXAM DATE/TIME PROCEDURE ORDERING PROVIDER [id number] 10/31/2020 10:02 EST CR Chest Portable MD ALFORD JAMES A CPT code 42082 Reason For Exam (CR Chest Portable) pneumonia [...] RISA Transcribed Date and Time: 10/31/2020 10:57 [place] Patient Name: JOSEPH BROWN Diagnostic Radiology ACCESSION EXAM DATE/TIME PROCEDURE ORDERING PROVIDER [id number] 10/31/2020 10:02 EST CR Chest Portable MD ALFORD JAMES A CPT code 11321 Reason For Exam (CR Chest Portable) pneumonia [...] RISA Transcribed Date and Time: 10/31/2020 10:57 [place] C-Reactive Proteinon 021 CRP [Mass/Vol] 77.5 mg/L High 0 - 6 mg/L [place] Comment on above: . CBC Auto Differentialon 10-16 Absolute Baso # 0.1 10*3/uL 0 - 0.2 10*3/uL [place] Absolute Neut # 9.7 10*3/uL High 1.8 - 7 10*3/uL [place] Basophils/100 WBC (Bld) 0.5 % 0 - 2 % [place] Eosinophils (Bld) [#/Vol] 0.2 10*3/uL 0 - 0.5 10*3/uL [place] Eosinophils/100 WBC (Bld) 1.5 % 1 - 6 % [place] Erythrocyte distribution width (RBC) [Ratio] 14.5 % 11.5 - 14.5 % [place] Granulocytes/100 WBC (Bld) 82.9 % High 40 - 80 % [place] Hematocrit (Bld) [Volume fraction] 33.2 % Low 40 - 52 % [place] Hemoglobin (Bld) [Mass/Vol] 10.9 g/dL Low 13 - 18 g/dL [place] Interpretation and review of laboratory results Abnormal [place] Lymphocytes (Bld) [#/Vol] 0.8 10*3/uL Low 1 - 4.3 10*3/uL [place] Lymphocytes/100 WBC (Bld) 7.0 % Low 20 - 40 % [place] MCH (RBC) [Entitic mass] 29.9 pg 26 - 34 pg [place] MCHC (RBC) [Mass/Vol] 32.9 % 32 - 36 % [place] MCV (RBC) [Entitic vol] 91.0 fL 80 - 98 fL [place], [place] Monocytes (Bld) [#/Vol] 0.9 10*3/uL High 0 - 0.8 10*3/uL [place] Monocytes/100 WBC (Bld) 8.1 % 2 - 10 % [place] Platelet mean volume (Bld) [Entitic vol] 8.6 fL 7.4 - 10.4 fL [place] Platelets (Bld) [#/Vol] 300 10*3/uL 140 - 440 10*3/uL [place] RBC (Bld) [#/Vol] 3.65 10*6/uL Low 4.4 - 5.9 10*6/uL [place] WBC (Bld) [#/Vol] 11.7 10*3/uL High 3.6 - 10.7 10*3/uL [place] Test Performed by [facility], [address] [place], [place] [id number] [place] [address] Calcium, Ionizedon Ionized Ca 4.40 mg/dL 4.3 - 5.2 mg/dL [place] pH (Bld) 7.43 [pH] [place] Test Performed by [facility], [address] [place], [place] [id number] [place] [address] Comprehensive Metabolic Pane l w/ Reflex to MGon 10-30-2020 Albumin [Mass/Vol] 2.8 g/dL Low 3.5 - 5 g/dL [place] ALP [Catalytic activity/Vol] 82 U/L 38 - 126 U/L [place] ALT [Catalytic activity/Vol] 73 U/L High 0 - 49 U/L [place] Comment on above: The ALT test is perf ormed by an updated assay method. Please note that the reference intervals have been changed and are now sex specific. Anion gap [Moles/Vol] 3 mmol/L [place] AST [Catalytic activity/Vol] 64 U/L High 15 - 46 U/L [place] Bilirubin Ql (U) 0.8 mg/dL 0.2 - 1.3 mg/dL [place] Calcium [Mass/Vol] 8.3 mg/dL Low 8.4 - 10. 4 mg/dL [place] Chloride [Moles/Vol] 103 mmol/L 98 - 10 7 mmol/L [place] CO2 [Moles/Vol] 32 mmol/L High 22 - 30 mmol/L [place] Creatinine [Mass/Vol] 0.63 mg/dL 0.52 - 1.25 mg/dL [place] EGFR IF NonAfrican Taiwanese >90.0 >60 mL/min [place], [place] Comment on above: KDIGO guidelines pro [...] MDRD (S/P/Bld) [Vol rate/Area] mL/min/{1.73_m2} >60 mL/min [place] Glucose [Mass/Vol] 143 mg/dL High 70 - 100 mg/dL [place] Potassium [Moles/Vol] 4.1 mmol/L 3.5 - 5.1 mmol/L [place] Protein [Mass/Vol] 6.2 g/dL Low 6.3 - 8.2 g/dL [place] Sodium [Moles/Vol] 138 mmol/L 135 - 145 mmol/L [place] Urea nitrogen [Mass/Vol] 32 mg/dL High 7 - 20 mg/d L [place] D-Dimer, Quantitativeon 10-16 D-Dimer, Quant 6.27 mg/L High 0 - 0.5 mg/L [place], [place] Comment on above: [employer] D-Dimer va lues of <0.50 mg/L FEU can be used in combination with a pre-test probability model (e.g. Well's) to exclude pulmonary embolism (PE) disease, as well as an aid in the diagnosis of deep vein thrombosis (DVT). Interpretation and review of laboratory results Abnormal [place] Test Performed by [facility], [address] [place], [place] [id number] [place] [address] Ferritinon 10-30-2020 Ferritin [Mass/Vol] 835 ng/mL High 18 - 464 ng/mL [place] Interpretation and review of laboratory results Abnormal [place] Test Performed by [facility], [address], [address] Lactate Dehydrogenaseon 10-16 LD 347 U/L High 120 - 246 U/L [place] Magnesiumon 10-30-2020 Magnesium [Mass/Vol] 2.2 mg/dL 1.6 - 2 .3 mg/dL [place] Otheron 10-30-2020 Interpretation and review of laboratory results Abnormal [place] Test Performed by [employer] [facility], [address], [address] POCT Arterialon 10-30-2020 Base Excess, Arterial 3.7 mmol/L High -3 - 3 mmol/L [place] HCO3, Arterial 27.6 mmol/L High 21 - 25 mmol/L [place] Interpretation and review of laboratory results Abnormal [place] Oxygen saturation in Blood 93.9 % Low 95 - 100 % [place] pCO2, Arterial 38.4 mm[Hg] 35 - 45 mm[Hg] [place] pH, Arterial 7.465 [place], [place] pO2, Arterial 65.9 mm[Hg] Low 80 - 100 mm[Hg] [place] Sodium [Moles/Vol] 40 mmol/L [place], [place] Comment on above: Performed by CLIA ID : [id number] [place], [place] TCO2, Arterial 28.8 mmol/L High 23 - 27 mmol/L [place] Test Performed by [facility], [address], [place], [place] [address] [place] Phosphoruson 10-30-2020 Phosphate [Mass/Vol] 3.4 mg/dL 2.5 - 4 .5 mg/dL [place] Test Performed by [facility], [address], [place], [place] [address] [place] C-Reactive Proteinon 021 CRP [Mass/Vol] 131.1 mg/L High 0 - 6 mg/L [place], [place] Comment on above: . Interpretation and review of laboratory results Abnormal [place] Test Performed by [facility], [address], [place], [place] [id number] [place] [address] CBC Auto Differentialon 10-16 Absolute Baso # 0.0 10*3/uL 0 - 0.2 10*3/uL [place] Absolute Neut # 8.7 10*3/uL High 1.8 - 7 10*3/uL [place] Basophils/100 WBC (Bld) 0.1 % 0 - 2 % [place] Eosinophils (Bld) [#/Vol] 0.2 10*3/uL 0 - 0.5 10*3/uL [place] Eosinophils/100 WBC (Bld) 2.1 % 1 - 6 % [place] Erythrocyte distribution width (RBC) [Ratio] 14.7 % High 11.5 - 14.5 % [place] Granulocytes/100 WBC (Bld) 83.2 % High 40 - 80 % [place] Hematocrit (Bld) [Volume fraction] 32.4 % Low 40 - 52 % [place] Hemoglobin (Bld) [Mass/Vol] 10.7 g/dL Low 13 - 18 g/dL [place] Interpretation and review of laboratory results Abnormal [place] Lymphocytes (Bld) [#/Vol] 0.7 10*3/uL Low 1 - 4.3 10*3/uL [place] Lymphocytes/100 WBC (Bld) 6.7 % Low 20 - 40 % [place] MCH (RBC) [Entitic mass] 30.0 pg 26 - 34 pg [place] MCHC (RBC) [Mass/Vol] 33.1 % 32 - 36 % [place] MCV (RBC) [Entitic vol] 90.6 fL 80 - 98 fL [place], [place] Monocytes (Bld) [#/Vol] 0.8 10*3/uL 0 - 0.8 10*3/uL [place], [place] Monocytes/100 WBC (Bld) 7.9 % 2 - 10 % [place] Platelet mean volume (Bld) [Entitic vol] 8.2 fL 7.4 - 10.4 fL [place] Platelets (Bld) [#/Vol] 278 10*3/uL 140 - 440 10*3/uL [place] RBC (Bld) [#/Vol] 3.57 10*6/uL Low 4.4 - 5.9 10*6/uL [place] WBC (Bld) [#/Vol] 10.4 10*3/uL 3.6 - 10.7 10*3/uL [place] Test Performed by [facility], [address] [place], [place] [address] [place] Calcium, Ionizedon Ionized Ca 4.50 mg/dL 4.3 - 5.2 mg/dL [place] pH (Bld) 7.45 [pH] [place] Test Performed by [facility], [address] [place], [place] [address] [place] Comprehensive Metabolic Pane l w/ Reflex to MGon 10-29-2020 Albumin [Mass/Vol] 2.8 g/dL Low 3.5 - 5 g/dL [place] ALP [Catalytic activity/Vol] 68 U/L 38 - 126 U/L [place] ALT [Catalytic activity/Vol] 49 U/L 0 - 49 U/L [place] Comment on above: The ALT test is perf ormed by an updated assay method. Please note that the reference intervals have been changed and are now sex specific. Anion gap [Moles/Vol] 4 mmol/L [place], [place] AST [Catalytic activity/Vol] 53 U/L High 15 - 46 U/L [place] Bilirubin Ql (U) 0.7 mg/dL 0.2 - 1.3 mg/dL [place] Calcium [Mass/Vol] 8.2 mg/dL Low 8.4 - 10. 4 mg/dL [place] Chloride [Moles/Vol] 107 mmol/L 98 - 10 7 mmol/L [place] CO2 [Moles/Vol] 28 mmol/L 22 - 30 mmol/L [place] Creatinine [Mass/Vol] 0.6 mg/dL 0.52 - 1.25 mg/dL [place] EGFR IF NonAfrican Taiwanese >90.0 >60 mL/min [place], [place] Comment on above: KDIGO guidelines pro [...] MDRD (S/P/Bld) [Vol rate/Area] mL/min/{1.73_m2} >60 mL/min [place] Glucose [Mass/Vol] 118 mg/dL High 70 - 100 mg/dL [place] Potassium [Moles/Vol] 4.2 mmol/L 3.5 - 5.1 mmol/L [place] Protein [Mass/Vol] 6.0 g/dL Low 6.3 - 8.2 g/dL [place] Sodium [Moles/Vol] 139 mmol/L 135 - 145 mmol/L [place] Urea nitrogen [Mass/Vol] 31 mg/dL High 7 - 20 mg/d L [place] D-Dimer, Quantitativeon 10-16 D-Dimer, Quant 5.62 mg/L High 0 - 0.5 mg/L [place], [place] Comment on above: [employer] D-Dimer va lues of <0.50 mg/L FEU can be used in combination with a pre-test probability model (e.g. Well's) to exclude pulmonary embolism (PE) disease, as well as an aid in the diagnosis of deep vein thrombosis (DVT). Interpretation and review of laboratory results Abnormal [facility] [place] Test Performed by [employer] [facility], [address] [place], [place] [id number] [place] [address] Ferritinon 10-29-2020 Ferritin [Mass/Vol] 618 ng/mL High 18 - 464 ng/mL [place] Interpretation and review of laboratory results Abnormal [facility] [place] Test Performed by [employer] [facility], [address] [place], [place] [id number] [place] [address] Lactate Dehydrogenaseon 10-16 LD 292 U/L High 120 - 246 U/L [place] Magnesiumon 10-29-2020 Magnesium [Mass/Vol] 2.3 mg/dL 1.6 - 2 .3 mg/dL [place] Otheron 10-29-2020 Interpretation and review of laboratory results Abnormal [facility] [place] Test Performed by [employer] [facility], [address] [place], [place] [id number] [place] [address] POCT Arterialon 10-29-2020 Base Excess, Arterial 2.9 mmol/L -3 - 3 mmol/L [place] HCO3, Arterial 27.1 mmol/L High 21 - 25 mmol/L [place] Interpretation and review of laboratory results Abnormal [place] Oxygen saturation in Blood 94.3 % Low 95 - 100 % [place] pCO2, Arterial 39.1 mm[Hg] 35 - 45 mm[Hg] [place], [place] pH, Arterial 7.449 [place], [place] pO2, Arterial 69.0 mm[Hg] Low 80 - 100 mm[Hg] [place] Sodium [Moles/Vol] 45 mmol/L [place], [place] Comment on above: Performed by CLIA ID : [id number] [place], [place] TCO2, Arterial 28.3 mmol/L High 23 - 27 mmol/L [place] Test Performed by [facility], [address] Phosphoruson 10-29-2020 Phosphate [Mass/Vol] 3.3 mg/dL 2.5 - 4 .5 mg/dL [place] Test Performed by [facility], [address] XR CHEST PORTABLEon 10-29-19 Patient Name: JOSEPH BROWN Diagnostic Radiology ACCESSION EXAM DATE/TIME PROCEDURE ORDERING PROVIDER [id number] 10/29/2020 05:58 EST CR Chest Portable AMARILIS LUKE JEFFREY A CPT code 59499 Reason For Exam (CR Chest Portable) pneumonia [...] infiltrates are present. Report Dictated on Workstation: [facility] --- Final --- Dictating Physician: DO CID ALFRED Signed Date and Time: 10/29/2020 6:15 am Signed by: DO CID ALFRED Transcribed Date and Time: 10/29/2020 6:16 [place], [place] Antoine Billingsley Incoming Radiology Results From [facility] - 10/29/2020 6:16 AM EST Patient Name: JOSEPH BROWN Diagnostic Radiology ACCESSION EXAM DATE/TIME PROCEDURE ORDERING PROVIDER [id number] 10/29/2020 05:58 EST CR Chest Portable AMARILIS LUKE JEFFREY A CPT code 15462 Reason For Exam (CR Chest Portable) pneumonia [...] ALFRED Transcribed Date and Time: 10/29/2020 6:16 [place] C-Reactive Proteinon 021 CRP [Mass/Vol] 88 mg/L High 0 - 6 mg/L [place], [place] Comment on above: . CBC Auto Differentialon 10-16 Absolute Baso # 0.0 10*3/uL 0 - 0.2 10*3/uL [place] Absolute Neut # 6.4 10*3/uL 1.8 - 7 10*3/uL [place] Basophils/100 WBC (Bld) 0.2 % 0 - 2 % [place] Eosinophils (Bld) [#/Vol] 0.2 10*3/uL 0 - 0.5 10*3/uL [place] Eosinophils/100 WBC (Bld) 3.0 % 1 - 6 % [place] Erythrocyte distribution width (RBC) [Ratio] 14.4 % 11.5 - 14.5 % [place] Granulocytes/100 WBC (Bld) 79.9 % 40 - 80 % [place] Hematocrit (Bld) [Volume fraction] 31.9 % Low 40 - 52 % [place] Hemoglobin (Bld) [Mass/Vol] 10.7 g/dL Low 13 - 18 g/dL [place] Interpretation and review of laboratory results Abnormal [place] Lymphocytes (Bld) [#/Vol] 0.7 10*3/uL Low 1 - 4.3 10*3/uL [place] Lymphocytes/100 WBC (Bld) 8.7 % Low 20 - 40 % [place] MCH (RBC) [Entitic mass] 30.4 pg 26 - 34 pg [place] MCHC (RBC) [Mass/Vol] 33.5 % 32 - 36 % [place] MCV (RBC) [Entitic vol] 90.7 fL 80 - 98 fL [place], [place] Monocytes (Bld) [#/Vol] 0.7 10*3/uL 0 - 0.8 10*3/uL [place], [place] Monocytes/100 WBC (Bld) 8.2 % 2 - 10 % [place] Platelet mean volume (Bld) [Entitic vol] 8.2 fL 7.4 - 10.4 fL [place] Platelets (Bld) [#/Vol] 235 10*3/uL 140 - 440 10*3/uL [place] RBC (Bld) [#/Vol] 3.51 10*6/uL Low 4.4 - 5.9 10*6/uL [place] WBC (Bld) [#/Vol] 8.0 10*3/uL 3.6 - 10.7 10*3/uL [place] Test Performed by [facility] [employer] [facility], [address], [place], [place] [id number] [place] [address] Calcium, Ionizedon 1 Ionized Ca 4.40 mg/dL 4.3 - 5.2 mg/dL [place] pH (Bld) 7.45 [pH] [place] Test Performed by [facility], [address], [place], [place] [address] [place] Comprehensive Metabolic Pane l w/ Reflex to MGon 10-28-2020 Albumin [Mass/Vol] 2.8 g/dL Low 3.5 - 5 g/dL [place] ALP [Catalytic activity/Vol] 64 U/L 38 - 126 U/L [place] ALT [Catalytic activity/Vol] 40 U/L 0 - 49 U/L [place] Comment on above: The ALT test is perf ormed by an updated assay method. Please note that the reference intervals have been changed and are now sex specific. Anion gap [Moles/Vol] 6 mmol/L [place], [place] AST [Catalytic activity/Vol] 45 U/L 15 - 46 U/L [place] Bilirubin Ql (U) 0.6 mg/dL 0.2 - 1.3 mg/dL [place] Calcium [Mass/Vol] 8.2 mg/dL Low 8.4 - 10. 4 mg/dL [place] Chloride [Moles/Vol] 106 mmol/L 98 - 10 7 mmol/L [place] CO2 [Moles/Vol] 28 mmol/L 22 - 30 mmol/L [place] Creatinine [Mass/Vol] 0.64 mg/dL 0.52 - 1.25 mg/dL [place] EGFR IF NonAfrican Taiwanese >90.0 >60 mL/min [place] Comment on above: KDIGO guidelines pro [...] MDRD (S/P/Bld) [Vol rate/Area] mL/min/{1.73_m2} >60 mL/min [facility] [place] Glucose [Mass/Vol] 146 mg/dL High 70 - 100 mg/dL [facility] Potassium [Moles/Vol] 4.2 mmol/L 3.5 - 5.1 mmol/L [facility] [place] Protein [Mass/Vol] 6.0 g/dL Low 6.3 - 8.2 g/dL [facility] Sodium [Moles/Vol] 140 mmol/L 135 - 145 mmol/L [facility] [place] Urea nitrogen [Mass/Vol] 32 mg/dL High 7 - 20 mg/d L [facility] [employer] Culture, Respiratoryon 10-28 Interpretation and review of laboratory results Abnormal [facility] [place] Respiratory Culture Few normal respiratory yolanda. Abnormal [facility] [employer] Respiratory Culture Moderate [facility] Respiratory Culture Streptococcus pneumoniae Abnormal [facility] [place] Test Performed by [employer], [address] [place] [address] [facility] [place] D-Dimer, Quantitativeon 10-16 D-Dimer, Quant 3.85 mg/L High 0 - 0.5 mg/L [place], [place] Comment on above: [employer] D-Dimer va lues of <0.50 mg/L FEU can be used in combination with a pre-test probability model (e.g. Well's) to exclude pulmonary embolism (PE) disease, as well as an aid in the diagnosis of deep vein thrombosis (DVT). Interpretation and review of laboratory results Abnormal [facility] [place] Test Performed by [employer], [address] [place], [place] [address] [facility] [place], [place] Ferritinon 10-28-2020 Ferritin [Mass/Vol] 594 ng/mL High 18 - 464 ng/mL [facility] [place], [place] Interpretation and review of laboratory results Abnormal [facility] [place] Test Performed by [facility], [address], [place], [place] [id number] [place] [address]- [place], [place] Lactate Dehydrogenaseon 10-16 LD 283 U/L High 120 - 246 U/L [facility] [place], [place] Magnesiumon 10-28-2020 Magnesium [Mass/Vol] 2.5 mg/dL High 1.6 - 2 .3 mg/dL [facility] [place], [place] Otheron 10-28-2020 Interpretation and review of laboratory results Abnormal [facility], [place] Test Performed by [employer] [facility], [address], [place], [place] [id number] [place] [address]- [place] POCT Arterialon 10-28-2020 Base Excess, Arterial 3.0 mmol/L -3 - 3 mmol/L [facility], [place] HCO3, Arterial 27.1 mmol/L High 21 - 25 mmol/L [facility] [place], [place] Interpretation and review of laboratory results Abnormal [facility], [place] Oxygen saturation in Blood 93.8 % Low 95 - 100 % [facility] [place] pCO2, Arterial 38.5 mm[Hg] 35 - 45 mm[Hg] [facility] [place], [place] pH, Arterial 7.455 High [facility] [place] [facility], [place] pO2, Arterial 66.3 mm[Hg] Low 80 - 100 mm[Hg] [facility], [place] Sodium [Moles/Vol] 45 mmol/L [facility], [place] Comment on above: Performed by NICOIA ID : [id number] [place], [place] TCO2, Arterial 28.3 mmol/L High 23 - 27 mmol/L [facility] [place] Test Performed by [employer] [facility], [address], [address]- [place], [place] Phosphoruson 10-28-2020 Phosphate [Mass/Vol] 3.6 mg/dL 2.5 - 4 .5 mg/dL [facility] [place], [place] Test Performed by [facility], [address], [place], [place] [address] [place] C-Reactive Proteinon 021 CRP [Mass/Vol] 72 mg/L High 0 - 6 mg/L [place], [place] Comment on above: . CBC Auto Differentialon 10-16 Absolute Baso # 0.0 10*3/uL 0 - 0.2 10*3/uL [place] Absolute Neut # 5.8 10*3/uL 1.8 - 7 10*3/uL [place] Basophils/100 WBC (Bld) 0.2 % 0 - 2 % [place] Eosinophils (Bld) [#/Vol] 0.1 10*3/uL 0 - 0.5 10*3/uL [place] Eosinophils/100 WBC (Bld) 1.6 % 1 - 6 % [place] Erythrocyte distribution width (RBC) [Ratio] 14.4 % 11.5 - 14.5 % [place] Granulocytes/100 WBC (Bld) 80.4 % High 40 - 80 % [place] Hematocrit (Bld) [Volume fraction] 31.6 % Low 40 - 52 % [place] Hemoglobin (Bld) [Mass/Vol] 10.5 g/dL Low 13 - 18 g/dL [place] Interpretation and review of laboratory results Abnormal [place] Lymphocytes (Bld) [#/Vol] 0.6 10*3/uL Low 1 - 4.3 10*3/uL [place] Lymphocytes/100 WBC (Bld) 8.2 % Low 20 - 40 % [place] MCH (RBC) [Entitic mass] 29.9 pg 26 - 34 pg [place] MCHC (RBC) [Mass/Vol] 33.2 % 32 - 36 % [place] MCV (RBC) [Entitic vol] 90.1 fL 80 - 98 fL [place], [place] Monocytes (Bld) [#/Vol] 0.7 10*3/uL 0 - 0.8 10*3/uL [place] Monocytes/100 WBC (Bld) 9.6 % 2 - 10 % [place], [place] Platelet mean volume (Bld) [Entitic vol] 7.9 fL 7.4 - 10.4 fL [place] Platelets (Bld) [#/Vol] 245 10*3/uL 140 - 440 10*3/uL [place] RBC (Bld) [#/Vol] 3.51 10*6/uL Low 4.4 - 5.9 10*6/uL [place] WBC (Bld) [#/Vol] 7.2 10*3/uL 3.6 - 10.7 10*3/uL [place] Test Performed by [facility], [address], [place], [place] [id number] [place] [address] Calcium, Ionizedon Ionized Ca 4.40 mg/dL 4.3 - 5.2 mg/dL [place] pH (Bld) 7.46 [pH] [place] Test Performed by [facility], [address] [place], [place] [id number] [place] [address] Comprehensive Metabolic Pane l w/ Reflex to MGon 10-27-2020 Albumin [Mass/Vol] 2.9 g/dL Low 3.5 - 5 g/dL [place] ALP [Catalytic activity/Vol] 61 U/L 38 - 126 U/L [place] ALT [Catalytic activity/Vol] 29 U/L 0 - 49 U/L [place] Comment on above: The ALT test is perf ormed by an updated assay method. Please note that the reference intervals have been changed and are now sex specific. Anion gap [Moles/Vol] 5 mmol/L [place] AST [Catalytic activity/Vol] 41 U/L 15 - 46 U/L [place] Bilirubin Ql (U) 0.7 mg/dL 0.2 - 1.3 mg/dL [place] Calcium [Mass/Vol] 8.0 mg/dL Low 8.4 - 10. 4 mg/dL [place] Chloride [Moles/Vol] 104 mmol/L 98 - 10 7 mmol/L [place] CO2 [Moles/Vol] 31 mmol/L High 22 - 30 mmol/L [place] Creatinine [Mass/Vol] 0.62 mg/dL 0.52 - 1.25 mg/dL [place] EGFR IF NonAfrican Taiwanese >90.0 >60 mL/min [place], [place] Comment on above: KDIGO guidelines pro [...] MDRD (S/P/Bld) [Vol rate/Area] mL/min/{1.73_m2} >60 mL/min [place] Glucose [Mass/Vol] 126 mg/dL High 70 - 100 mg/dL [place] Potassium [Moles/Vol] 4.3 mmol/L 3.5 - 5.1 mmol/L [place] Protein [Mass/Vol] 6.0 g/dL Low 6.3 - 8.2 g/dL [place], [place] Sodium [Moles/Vol] 139 mmol/L 135 - 145 mmol/L [place], [place] Urea nitrogen [Mass/Vol] 30 mg/dL High 7 - 20 mg/d L [place] D-Dimer, Quantitativeon 10-16 D-Dimer, Quant 4.7 mg/L High 0 - 0.5 mg/L [place], [place] Comment on above: [employer] D-Dimer va lues of <0.50 mg/L FEU can be used in combination with a pre-test probability model (e.g. Well's) to exclude pulmonary embolism (PE) disease, as well as an aid in the diagnosis of deep vein thrombosis (DVT). Interpretation and review of laboratory results Abnormal [facility] [place] Test Performed by [facility], [address], [place], [place] [address] [facility] [place] Ferritinon 10-27-2020 Ferritin [Mass/Vol] 567 ng/mL High 18 - 464 ng/mL [place] Interpretation and review of laboratory results Abnormal [facility] [employer] Test Performed by [facility], [address], [place], [place] [address] [place] Lactate Dehydrogenaseon 10-16 LD 310 U/L High 120 - 246 U/L [place] Magnesiumon 10-27-2020 Magnesium [Mass/Vol] 2.5 mg/dL High 1.6 - 2 .3 mg/dL [facility], [place] Otheron 10-27-2020 Interpretation and review of laboratory results Abnormal [facility] [employer] Test Performed by [employer] [facility], [address], [place], [place] [address] [facility], TIFF POCT Arterialon 10-27-2020 Base Excess, Arterial 3.6 mmol/L High -3 - 3 mmol/L [facility], [place] HCO3, Arterial 27.7 mmol/L High 21 - 25 mmol/L [facility], [place] Interpretation and review of laboratory results Abnormal [facility] [place] Oxygen saturation in Blood 94.7 % Low 95 - 100 % [facility] [place] pCO2, Arterial 39.5 mm[Hg] 35 - 45 mm[Hg] [facility], [place] pH, Arterial 7.455 High [facility] [place] [facility], [place] pO2, Arterial 70.2 mm[Hg] Low 80 - 100 mm[Hg] [facility], [place] Sodium [Moles/Vol] 50 mmol/L [facility], [place] Comment on above: Performed by [email or web address] ID : [id number] [place], [place] TCO2, Arterial 29 mmol/L High 23 - 27 mmol/L [place] Test Performed by [facility], [address], [place], [place] [address] [place] PROCALCITONINon 10-27-2020 Interpretation and review of laboratory results Abnormal [place] Procalcitonin 0.17 ng/mL Abnormal <0.10 [place] Sodium [Moles/Vol] See Below [place], [place] Comment on above: PCT <0.50 = Low risk of severe sepsis and/or septic shock. PCT >2.00 = High risk of severe sepsis and/or septic shock. Test Performed by [facility], [address] [place] [address] [place], [place] Phosphoruson 10-27-2020 Phosphate [Mass/Vol] 3.7 mg/dL 2.5 - 4 .5 mg/dL [place] XR CHEST PORTABLEon 10-27-19 Patient Name: JOSEPH BROWN Diagnostic Radiology ACCESSION EXAM DATE/TIME PROCEDURE ORDERING PROVIDER [id number] 10/27/2020 05:35 EST CR Chest Portable MD ALFORD JAMES A CPT code 85610 Reason For Exam (CR Chest Portable) pneumonia, [...] ALFRED Transcribed Date and Time: 10/27/2020 5:35 [place], [place] [facility] Incoming Radiology Results From [facility] - 10/27/2020 5:35 AM EST [facility]: [id number] Radiology ACCESSION EXAM DATE/TIME PROCEDURE ORDERING PROVIDER [id number] 10/27/2020 05:35 EST CR Chest Portable MD ALFORD JAMES A CPT code 41361 Reason For Exam (CR Chest Portable) pneumonia, [...] ALFRED Transcribed Date and Time: 10/27/2020 5:35 [place], [place] C-Reactive Proteinon 021 CRP [Mass/Vol] 131.8 mg/L High 0 - 6 mg/L [place], [place] Comment on above: . Interpretation and review of laboratory results Abnormal [place] Test Performed by [facility], [address] [place], [place] [id number] [place] [address] CBC Auto Differentialon 10-16 Absolute Baso # 0.0 10*3/uL 0 - 0.2 10*3/uL [place] Absolute Neut # 6.3 10*3/uL 1.8 - 7 10*3/uL [place] Basophils/100 WBC (Bld) 0.0 % 0 - 2 % [place] Eosinophils (Bld) [#/Vol] 0.0 10*3/uL 0 - 0.5 10*3/uL [place] Eosinophils/100 WBC (Bld) 0.4 % Low 1 - 6 % [place] Erythrocyte distribution width (RBC) [Ratio] 14.2 % 11.5 - 14.5 % [place] Granulocytes/100 WBC (Bld) 88.2 % High 40 - 80 % [place] Hematocrit (Bld) [Volume fraction] 28.9 % Low 40 - 52 % [place] Hemoglobin (Bld) [Mass/Vol] 9.7 g/dL Low 13 - 18 g/dL [place] Interpretation and review of laboratory results Abnormal [place] Lymphocytes (Bld) [#/Vol] 0.4 10*3/uL Low 1 - 4.3 10*3/uL [place] Lymphocytes/100 WBC (Bld) 5.0 % Low 20 - 40 % [place] MCH (RBC) [Entitic mass] 30.1 pg 26 - 34 pg [place] MCHC (RBC) [Mass/Vol] 33.4 % 32 - 36 % [place] MCV (RBC) [Entitic vol] 90.2 fL 80 - 98 fL [place] Monocytes (Bld) [#/Vol] 0.5 10*3/uL 0 - 0.8 10*3/uL [place] Monocytes/100 WBC (Bld) 6.4 % 2 - 10 % [place] Platelet mean volume (Bld) [Entitic vol] 8.4 fL 7.4 - 10.4 fL [place] Platelets (Bld) [#/Vol] 190 10*3/uL 140 - 440 10*3/uL [place] RBC (Bld) [#/Vol] 3.21 10*6/uL Low 4.4 - 5.9 10*6/uL [place] WBC (Bld) [#/Vol] 7.1 10*3/uL 3.6 - 10.7 10*3/uL [place] Test Performed by [employer] [facility], [address], [place], [place] [address] [place] Calcium, Ionizedon Ionized Ca 4.40 mg/dL 4.3 - 5.2 mg/dL [place] pH (Bld) 7.44 [pH] [place] Test Performed by [facility], [address], [place], [place] [address] [place] Comprehensive Metabolic Pane l w/ Reflex to MGon 10-26-2020 Albumin [Mass/Vol] 2.7 g/dL Low 3.5 - 5 g/dL [place] ALP [Catalytic activity/Vol] 59 U/L 38 - 126 U/L [place] ALT [Catalytic activity/Vol] 23 U/L 0 - 49 U/L [place] Comment on above: The ALT test is perf ormed by an updated assay method. Please note that the reference intervals have been changed and are now sex specific. Anion gap [Moles/Vol] 5 mmol/L [place] AST [Catalytic activity/Vol] 36 U/L 15 - 46 U/L [place] Bilirubin Ql (U) 0.6 mg/dL 0.2 - 1.3 mg/dL [place] Calcium [Mass/Vol] 7.9 mg/dL Low 8.4 - 10. 4 mg/dL [place] Chloride [Moles/Vol] 102 mmol/L 98 - 10 7 mmol/L [place] CO2 [Moles/Vol] 31 mmol/L High 22 - 30 mmol/L [place] Creatinine [Mass/Vol] 0.66 mg/dL 0.52 - 1.25 mg/dL [place] EGFR IF NonAfrican Taiwanese >90.0 >60 mL/min [place] Comment on above: KDIGO guidelines pro [...] MDRD (S/P/Bld) [Vol rate/Area] mL/min/{1.73_m2} >60 mL/min [facility] Glucose [Mass/Vol] 189 mg/dL High 70 - 100 mg/dL [facility] Potassium [Moles/Vol] 3.9 mmol/L 3.5 - 5.1 mmol/L [facility] [employer] Protein [Mass/Vol] 5.5 g/dL Low 6.3 - 8.2 g/dL [facility] [employer] Sodium [Moles/Vol] 137 mmol/L 135 - 145 mmol/L [facility] Urea nitrogen [Mass/Vol] 34 mg/dL High 7 - 20 mg/d L [facility] D-Dimer, Quantitativeon 10-16 D-Dimer, Quant 6.66 mg/L High 0 - 0.5 mg/L [facility] [place] Comment on above: [employer] D-Dimer va lues of <0.50 mg/L FEU can be used in combination with a pre-test probability model (e.g. Well's) to exclude pulmonary embolism (PE) disease, as well as an aid in the diagnosis of deep vein thrombosis (DVT). Interpretation and review of laboratory results Abnormal [address] Test Performed by [employer], [address] [place], [place] [address] [place], [place] [address] Ferritinon 10-26-2020 Ferritin [Mass/Vol] 575 ng/mL High 18 - 464 ng/mL [facility] Interpretation and review of laboratory results Abnormal [address] Test Performed by [facility], [address] [place], [place] [address] [place] [address] Lactate Dehydrogenaseon 10-16 LD 322 U/L High 120 - 246 U/L [place] Magnesiumon 10-26-2020 Magnesium [Mass/Vol] 2.6 mg/dL High 1.6 - 2 .3 mg/dL [facility], [place] Otheron 10-26-2020 Interpretation and review of laboratory results Abnormal [place] Test Performed by [facility], [address], [place], [place] [address] [place] [address] POCT Arterialon 10-26-2020 Base Excess, Arterial 3.2 mmol/L High -3 - 3 mmol/L [place] HCO3, Arterial 27.4 mmol/L High 21 - 25 mmol/L [place] Interpretation and review of laboratory results Abnormal [place] Oxygen saturation in Blood 96.1 % 95 - 100 % [place] pCO2, Arterial 39.3 mm[Hg] 35 - 45 mm[Hg] [place] pH, Arterial 7.451 High [place], [place] pO2, Arterial 78.6 mm[Hg] Low 80 - 100 mm[Hg] [place] Sodium [Moles/Vol] 50 mmol/L [place] Comment on above: Performed by DELFINO ID : [id number] [place], [place] TCO2, Arterial 28.6 mmol/L High 23 - 27 mmol/L [place] Test Performed by [facility] [employer] [facility], [address], [place], [place] [address] [place] [address] Phosphoruson 10-26-2020 Phosphate [Mass/Vol] 3.2 mg/dL 2.5 - 4 .5 mg/dL [place] Test Performed by [facility], [address] [place], [place] [address] [place] [address] C-Reactive Proteinon 021 CRP [Mass/Vol] 245.5 mg/L High 0 - 6 mg/L [place], [place] Comment on above: . Interpretation and review of laboratory results Abnormal [place] Test Performed by [facility], [address], [place], [place] [address] [place] CBC Auto Differentialon 10-16 Absolute Baso # 0.0 10*3/uL 0 - 0.2 10*3/uL [place] Absolute Neut # 9.1 10*3/uL High 1.8 - 7 10*3/uL [place] Basophils/100 WBC (Bld) 0.1 % 0 - 2 % [place] Eosinophils (Bld) [#/Vol] 0.0 10*3/uL 0 - 0.5 10*3/uL [place] Eosinophils/100 WBC (Bld) 0.0 % Low 1 - 6 % [place] Erythrocyte distribution width (RBC) [Ratio] 14.5 % 11.5 - 14.5 % [place] Granulocytes/100 WBC (Bld) 90.7 % High 40 - 80 % [place] Hematocrit (Bld) [Volume fraction] 33.8 % Low 40 - 52 % [place] Hemoglobin (Bld) [Mass/Vol] 11.1 g/dL Low 13 - 18 g/dL [place] Interpretation and review of laboratory results Abnormal [place] Lymphocytes (Bld) [#/Vol] 0.4 10*3/uL Low 1 - 4.3 10*3/uL [place] Lymphocytes/100 WBC (Bld) 4.3 % Low 20 - 40 % [place] MCH (RBC) [Entitic mass] 29.8 pg 26 - 34 pg [place] MCHC (RBC) [Mass/Vol] 32.9 % 32 - 36 % [place] MCV (RBC) [Entitic vol] 90.5 fL 80 - 98 fL [place] Monocytes (Bld) [#/Vol] 0.5 10*3/uL 0 - 0.8 10*3/uL [place], [place] Monocytes/100 WBC (Bld) 4.9 % 2 - 10 % [place] Platelet mean volume (Bld) [Entitic vol] 8.1 fL 7.4 - 10.4 fL [place] Platelets (Bld) [#/Vol] 224 10*3/uL 140 - 440 10*3/uL [place] RBC (Bld) [#/Vol] 3.73 10*6/uL Low 4.4 - 5.9 10*6/uL [place] WBC (Bld) [#/Vol] 10.0 10*3/uL 3.6 - 10.7 10*3/uL [place] Test Performed by [facility], [address], [place], [place] [address] [place] Calcium, Ionizedon 1 Interpretation and review of laboratory results Abnormal [place] Ionized Ca 4.40 mg/dL 4.3 - 5.2 mg/dL [place] pH (Bld) 7.47 [pH] [place] Test Performed by [facility], [address], [place], [place] [address] [place] Comprehensive Metabolic Pane l w/ Reflex to MGon 10-25-2020 Albumin [Mass/Vol] 2.7 g/dL Low 3.5 - 5 g/dL [place] ALP [Catalytic activity/Vol] 72 U/L 38 - 126 U/L [place] ALT [Catalytic activity/Vol] 25 U/L 0 - 49 U/L [place] Comment on above: The ALT test is perf ormed by an updated assay method. Please note that the reference intervals have been changed and are now sex specific. Anion gap [Moles/Vol] 4 mmol/L [place] AST [Catalytic activity/Vol] 41 U/L 15 - 46 U/L [place] Bilirubin Ql (U) 1.0 mg/dL 0.2 - 1.3 mg/dL [place] Calcium [Mass/Vol] 8.2 mg/dL Low 8.4 - 10. 4 mg/dL [place] Chloride [Moles/Vol] 102 mmol/L 98 - 10 7 mmol/L [place] CO2 [Moles/Vol] 31 mmol/L High 22 - 30 mmol/L [place] Creatinine [Mass/Vol] 0.74 mg/dL 0.52 - 1.25 mg/dL [place] EGFR IF NonAfrican Taiwanese >90.0 >60 mL/min [place] Comment on above: KDIGO guidelines pro [...] MDRD (S/P/Bld) [Vol rate/Area] mL/min/{1.73_m2} >60 mL/min [place] Glucose [Mass/Vol] 153 mg/dL High 70 - 100 mg/dL [place] Potassium [Moles/Vol] 3.9 mmol/L 3.5 - 5.1 mmol/L [place] Protein [Mass/Vol] 5.8 g/dL Low 6.3 - 8.2 g/dL [place] Sodium [Moles/Vol] 137 mmol/L 135 - 145 mmol/L [place] Urea nitrogen [Mass/Vol] 32 mg/dL High 7 - 20 mg/d L [place] D-Dimer, Quantitativeon 10-16 D-Dimer, Quant >35.20 High 0 - 0.5 mg/L [place] Comment on above: [employer] D-Dimer va lues of <0.50 mg/L FEU can be used in combination with a pre-test probability model (e.g. Well's) to exclude pulmonary embolism (PE) disease, as well as an aid in the diagnosis of deep vein thrombosis (DVT). Interpretation and review of laboratory results Abnormal [place] Test Performed by [facility], [address] [place], [place] [address] [place] Ferritinon 10-25-2020 Ferritin [Mass/Vol] 678 ng/mL High 18 - 464 ng/mL [place] Interpretation and review of laboratory results Abnormal [place] Test Performed by [facility], [address] [place] [place], [place] [address] [place] Gram Stainon 10-25-2020 INR Coag (Bld) [Relative time] Moderate polymorphonuclear cells/lpf. Few epithelial cells/lpf. Many gram positive cocci in pairs and chains. [place] Test Performed by [facility], [address] [place] [address] [place] Lactate Dehydrogenaseon 10-16 LD 430 U/L High 120 - 246 U/L [place] Magnesiumon 10-25-2020 Magnesium [Mass/Vol] 2.7 mg/dL High 1.6 - 2 .3 mg/dL [place] Otheron 10-25-2020 Interpretation and review of laboratory results Abnormal [place] Test Performed by [facility], [address] [place], [place] [address] [place] POCT Arterialon 10-25-2020 Base Excess, Arterial 2.7 mmol/L -3 - 3 mmol/L [place] HCO3, Arterial 25.8 mmol/L High 21 - 25 mmol/L [place] Interpretation and review of laboratory results Abnormal [place] Oxygen saturation in Blood 94.5 % Low 95 - 100 % [place] pCO2, Arterial 33.6 mm[Hg] Low 35 - 45 mm[Hg] [place] pH, Arterial 7.493 High [place], [place] pO2, Arterial 66.0 mm[Hg] Low 80 - 100 mm[Hg] [facility] [place] Sodium [Moles/Vol] 50 mmol/L [facility] [place] Comment on above: Performed by CLIA ID : [id number] [place] TCO2, Arterial 26.9 mmol/L 23 - 27 mmol/L [facility] Test Performed by [facility], [address] [place], [place] [address] [facility] Base Excess, Arterial 6.1 mmol/L High -3 - 3 mmol/L [facility] HCO3, Arterial 29.4 mmol/L High 21 - 25 mmol/L [facility] Interpretation and review of laboratory results Abnormal [facility] [place] Oxygen saturation in Blood 93.2 % Low 95 - 100 % [facility] [place] pCO2, Arterial 37.3 mm[Hg] 35 - 45 mm[Hg] [facility] [place] pH, Arterial 7.506 High [facility] [place] pO2, Arterial 60.9 mm[Hg] Low 80 - 100 mm[Hg] [facility] Sodium [Moles/Vol] 50 mmol/L [facility] [place] Comment on above: Performed by CLIA ID : [id number] [place] TCO2, Arterial 30.6 mmol/L High 23 - 27 mmol/L [facility] Test Performed by [facility], [address] [place], [place] [address] [facility] Base Excess, Arterial 2.8 mmol/L -3 - 3 mmol/L [facility] [place] HCO3, Arterial 27.7 mmol/L High 21 - 25 mmol/L [facility] [place] Interpretation and review of laboratory results Abnormal [facility] [place] Oxygen saturation in Blood 94.8 % Low 95 - 100 % [facility] [place] pCO2, Arterial 42.3 mm[Hg] 35 - 45 mm[Hg] [facility] [place] pH, Arterial 7.424 [facility] [place] pO2, Arterial 73.3 mm[Hg] Low 80 - 100 mm[Hg] [facility] [place] Sodium [Moles/Vol] 50 mmol/L [place] Comment on above: Performed by CLIA ID : [id number] [place] TCO2, Arterial 29 mmol/L High 23 - 27 mmol/L [place] Test Performed by [employer] [facility], [address], [place], [place] [address] [place] Phosphoruson 10-25-2020 Phosphate [Mass/Vol] 2.9 mg/dL 2.5 - 4 .5 mg/dL [place] VL LOWER EXTREMITY BILATERAL VENOUS DUPLEXon 10-25-2020 [facility] Lower Extremity Venous Duplex Report Patient DO KamrynB: 1955 Study 10/24/2020 Name: Joseph De Anda (64yr) Date: Patient [id number] Age: 64 Account: [id number] ID: Gender: M Loc: 222 BP: Ordering Physician: Issa Conteh [employer] Operator: Maxine Sanchez RVT Interpreting Physician: Tigre Soriano MD Location: [facility] Indications: Edema right entire leg. Edema left [...] supine position. Images were obtained using a Tripping E9 vascular ultrasound machine. Venous flow and [...] signed by Tigre Soriano MD 10/25/2020 11:55 [facility] Incoming Cardiology Results From [employer] - 10/25/2020 11:56 AM EST [facility] Lower Extremity Venous Duplex Report Patient DO KamrynB: 1955 Study 10/24/2020 Name: Joseph De Anda (64yr) Date: Patient [id number] Age: 64 Account: [id number] ID: Gender: M Loc: 222 BP: Ordering Physician: Issa Conteh [employer] Operator: Maxine Sanchez RVT Interpreting Physician: Tigre Soriano MD Location: [facility] Indications: Edema right entire leg. Edema left [...] supine position. Images were obtained using a Tripping E9 vascular ultrasound machine. Venous flow and [...] signed by Tigre Soriano MD 10/25/2020 11:55 [place], [place] Add On Lab Teston 10-24-2020 Sodium [Moles/Vol] Accepted [place] Comment on above: Specimen available & acceptable for analysis. Test Performed by [facility], [address], [place], [place] [address] [place] Basic Metabolic Panelon Anion gap [Moles/Vol] 7 mmol/L [place] Calcium [Mass/Vol] 8.1 mg/dL Low 8.4 - 10. 4 mg/dL [place] Chloride [Moles/Vol] 101 mmol/L 98 - 10 7 mmol/L [place] CO2 [Moles/Vol] 29 mmol/L 22 - 30 mmol/L [place] Creatinine [Mass/Vol] 0.68 mg/dL 0.52 - 1.25 mg/dL [place] EGFR IF NonAfrican Taiwanese >90.0 >60 mL/min [place] Comment on above: KDIGO guidelines pro [...] MDRD (S/P/Bld) [Vol rate/Area] mL/min/{1.73_m2} >60 mL/min [place] Glucose [Mass/Vol] 185 mg/dL High 70 - 100 mg/dL [place] Interpretation and review of laboratory results Abnormal [place] Potassium [Moles/Vol] 4.5 mmol/L 3.5 - 5.1 mmol/L [place] Sodium [Moles/Vol] 137 mmol/L 135 - 145 mmol/L [place] Urea nitrogen [Mass/Vol] 28 mg/dL High 7 - 20 mg/d L [place] Test Performed by [facility], [address] [place], [place] [id number] [place] [address] C-Reactive Proteinon 021 CRP [Mass/Vol] 240.1 mg/L High 0 - 6 mg/L [place] Comment on above: . Interpretation and review of laboratory results Abnormal [place] Test Performed by [facility] [employer] [facility], [address], [place], [place] [address] [place] CBC Auto Differentialon Absolute Baso # 0.0 10*3/uL 0 - 0.2 10*3/uL [place] Absolute Neut # 8.7 10*3/uL High 1.8 - 7 10*3/uL [place] Basophils/100 WBC (Bld) 0.1 % 0 - 2 % [place] Eosinophils (Bld) [#/Vol] 0.0 10*3/uL 0 - 0.5 10*3/uL [place] Eosinophils/100 WBC (Bld) 0.1 % Low 1 - 6 % [place] Erythrocyte distribution width (RBC) [Ratio] 14.5 % 11.5 - 14.5 % [place] Granulocytes/100 WBC (Bld) 93.9 % High 40 - 80 % [place] Hematocrit (Bld) [Volume fraction] 35.7 % Low 40 - 52 % [place] Hemoglobin (Bld) [Mass/Vol] 11.9 g/dL Low 13 - 18 g/dL [place] Interpretation and review of laboratory results Abnormal [place] Lymphocytes (Bld) [#/Vol] 0.3 10*3/uL Low 1 - 4.3 10*3/uL [place] Lymphocytes/100 WBC (Bld) 3.1 % Low 20 - 40 % [place] MCH (RBC) [Entitic mass] 30.4 pg 26 - 34 pg [place] MCHC (RBC) [Mass/Vol] 33.3 % 32 - 36 % [place] MCV (RBC) [Entitic vol] 91.1 fL 80 - 98 fL [place] Monocytes (Bld) [#/Vol] 0.3 10*3/uL 0 - 0.8 10*3/uL [place], [place] Monocytes/100 WBC (Bld) 2.8 % 2 - 10 % [place] Platelet mean volume (Bld) [Entitic vol] 7.8 fL 7.4 - 10.4 fL [place] Platelets (Bld) [#/Vol] 199 10*3/uL 140 - 440 10*3/uL [place] RBC (Bld) [#/Vol] 3.92 10*6/uL Low 4.4 - 5.9 10*6/uL [place] WBC (Bld) [#/Vol] 9.2 10*3/uL 3.6 - 10.7 10*3/uL [place] Test Performed by [facility] [employer] [facility], [address] [place], [place] [address] [place] Calcium, Ionizedon 1 Interpretation and review of laboratory results Abnormal [place] Ionized Ca 4.40 mg/dL 4.3 - 5.2 mg/dL [place] pH (Bld) 7.28 [pH] Low [place] Test Performed by [facility], [address] [place], [place] [address] [place] Comprehensive Metabolic Pane l w/ Reflex to MGon 10-24-2020 Albumin [Mass/Vol] 2.9 g/dL Low 3.5 - 5 g/dL [place] ALP [Catalytic activity/Vol] 81 U/L 38 - 126 U/L [place] ALT [Catalytic activity/Vol] 35 U/L 0 - 49 U/L [place] Comment on above: The ALT test is perf ormed by an updated assay method. Please note that the reference intervals have been changed and are now sex specific. Anion gap [Moles/Vol] 6 mmol/L [place] AST [Catalytic activity/Vol] 54 U/L High 15 - 46 U/L [place] Bilirubin Ql (U) 1.3 mg/dL 0.2 - 1.3 mg/dL [place] Calcium [Mass/Vol] 8.0 mg/dL Low 8.4 - 10. 4 mg/dL [place] Chloride [Moles/Vol] 103 mmol/L 98 - 10 7 mmol/L [place] CO2 [Moles/Vol] 29 mmol/L 22 - 30 mmol/L [place] Creatinine [Mass/Vol] 0.69 mg/dL 0.52 - 1.25 mg/dL [place], [place] EGFR IF NonAfrican Taiwanese >90.0 >60 mL/min [place] Comment on above: KDIGO guidelines pro [...] MDRD (S/P/Bld) [Vol rate/Area] mL/min/{1.73_m2} >60 mL/min [place] Glucose [Mass/Vol] 141 mg/dL High 70 - 100 mg/dL [place] Potassium [Moles/Vol] 4.6 mmol/L 3.5 - 5.1 mmol/L [place] Protein [Mass/Vol] 6.1 g/dL Low 6.3 - 8.2 g/dL [place] Sodium [Moles/Vol] 139 mmol/L 135 - 145 mmol/L [place] Urea nitrogen [Mass/Vol] 26 mg/dL High 7 - 20 mg/d L [place] D-Dimer, Quantitativeon D-Dimer, Quant >35.20 High 0 - 0.5 mg/L [place] Comment on above: [employer] D-Dimer va lues of <0.50 mg/L FEU can be used in combination with a pre-test probability model (e.g. Well's) to exclude pulmonary embolism (PE) disease, as well as an aid in the diagnosis of deep vein thrombosis (DVT). Interpretation and review of laboratory results Abnormal [place] Test Performed by [employer] [facility], [address] [place], [place] [address] [place] Ferritinon 10-24-2020 Ferritin [Mass/Vol] 616 ng/mL High 18 - 464 ng/mL [place] Interpretation and review of laboratory results Abnormal [place] Test Performed by [employer] [facility], [address] [place], [place] [address] [place] Lactate Dehydrogenaseon LD 714 U/L High 120 - 246 U/L [place] Magnesiumon 10-24-2020 Magnesium [Mass/Vol] 2.0 mg/dL 1.6 - 2 .3 mg/dL [place] Otheron 10-24-2020 Interpretation and review of laboratory results Abnormal [facility] [place] Test Performed by [facility], [address], [place], [place] [address] [facility] [place] POCT Arterialon 10-24-2020 Base Excess, Arterial 3.6 mmol/L High -3 - 3 mmol/L [facility] [place] HCO3, Arterial 28.0 mmol/L High 21 - 25 mmol/L [facility] [place] Interpretation and review of laboratory results Abnormal [facility] [place] Oxygen saturation in Blood 94.4 % Low 95 - 100 % [facility] [place] pCO2, Arterial 40.5 mm[Hg] 35 - 45 mm[Hg] [facility] [place] pH, Arterial 7.448 [facility] [place] pO2, Arterial 69.5 mm[Hg] Low 80 - 100 mm[Hg] [facility] [place] Sodium [Moles/Vol] 50 mmol/L [facility] [place] Comment on above: Performed by CLIA ID : [id number] [place] TCO2, Arterial 29.2 mmol/L High 23 - 27 mmol/L [facility] [place] Test Performed by [facility], [address], [place], [place] [address] [facility] [place] Base Excess, Arterial 1.8 mmol/L -3 - 3 mmol/L [facility] [place] HCO3, Arterial 27.8 mmol/L High 21 - 25 mmol/L [facility] [place] Interpretation and review of laboratory results Abnormal [facility] [place] Oxygen saturation in Blood 99.7 % 95 - 100 % [facility] [place] pCO2, Arterial 48.8 mm[Hg] High 35 - 45 mm[Hg] [facility] [place] pH, Arterial 7.364 [facility] [place] pO2, Arterial 203.6 mm[Hg] High 80 - 100 mm[Hg] [facility] [place] Sodium [Moles/Vol] 60 mmol/L [facility] [place] Comment on above: Performed by CLIA ID : [id number] [place] TCO2, Arterial 29.3 mmol/L High 23 - 27 mmol/L [facility] [place] Test Performed by [facility] [employer] [facility], [address] [place] [address] [facility], [place] Base Excess, Arterial -0.6 mmol/L -3 - 3 mmol/L [facility], [place] HCO3, Arterial 27.3 mmol/L High 21 - 25 mmol/L [facility], [place] Interpretation and review of laboratory results Abnormal [place] Oxygen saturation in Blood 99.7 % 95 - 100 % [facility], [place] pCO2, Arterial 57.2 mm[Hg] High 35 - 45 mm[Hg] [facility], [place] pH, Arterial 7.287 [place] pO2, Arterial 226.0 mm[Hg] High 80 - 100 mm[Hg] [facility], [place] TCO2, Arterial 29.1 mmol/L High 23 - 27 mmol/L [facility], [place] Comment on above: Performed by [email or web address] ID : [id number] [place] Test Performed by [employer] [facility], [address], [place], [place] [address] [facility], [place] Phosphoruson 10-24-2020 Interpretation and review of laboratory results Abnormal [place] Phosphate [Mass/Vol] 4.7 mg/dL High 2.5 - 4 .5 mg/dL [facility], [place] Test Performed by [facility] [employer] [facility], [address] [place], [place] [address] [place] Procalcitoninon 10-24-2020 Interpretation and review of laboratory results Abnormal [place] Procalcitonin 0.35 ng/mL Abnormal <0.10 [facility], [place] Sodium [Moles/Vol] See Below [facility], [place] Comment on above: PCT <0.50 = Low risk of severe sepsis and/or septic shock. PCT >2.00 = High risk of severe sepsis and/or septic shock. Test Performed by [employer] [facility], [address] [place] [address] [facility], [place] XR CHEST PORTABLEon 10-24-19 Jose Cruz, [facility] Incoming Radiology Results From [facility] - 10/24/2020 6:02 AM EST Patient Name: JOSEPH BROWN Diagnostic Radiology ACCESSION EXAM DATE/TIME PROCEDURE ORDERING PROVIDER [id number] 10/24/2020 03:56 EST CR Chest Portable AMARILIS GOMEZ AMBER A CPT code 89826 Reason For Exam (CR Chest Portable) ETT [...] JEFFREY Transcribed Date and Time: 10/24/2020 6:02 [place] Patient Name: JOSEPH BROWN Diagnostic Radiology ACCESSION EXAM DATE/TIME PROCEDURE ORDERING PROVIDER [id number] 10/24/2020 03:56 EST CR Chest Portable AMARILIS GOMEZ AMBER A CPT code 11621 Reason For Exam (CR Chest Portable) ETT [...] JEFFREY Transcribed Date and Time: 10/24/2020 6:02 [place] [id number]iology ACCESSION EXAM DATE/TIME PROCEDURE ORDERING PROVIDER [id number] 10/24/2020 03:57 EST CR Chest Portable MD CONTEH MATTHEW CPT code 10031 Reason For Exam (CR Chest Portable) dyspnea [...] position without pneumothorax Report Dictated on Workstation: [facility] [facility] --- Final --- Dictating Physician: MD CUNNINGHAM JEFFREY Signed Date and Time: 10/24/2020 6:00 am Signed by: MD CUNNINGHAM JEFFREY Transcribed Date and Time: 10/24/2020 6:01 [facility], [place] Jose Cruz, [facility] Incoming Radiology Results From [facility] - 10/24/2020 6:02 AM EST Patient Name: JOSEPH BROWN [facility]#: [id number] Diagnostic Radiology ACCESSION EXAM DATE/TIME PROCEDURE ORDERING PROVIDER [id number] 10/24/2020 03:57 EST CR Chest Portable MD CONTEH MATTHEW CPT code 61182 Reason For Exam (CR Chest Portable) dyspnea [...] position without pneumothorax Report Dictated on Workstation: [facility] --- Final --- Dictating Physician: MD CUNNINGHAM JEFFREY Signed Date and Time: 10/24/2020 6:00 am Signed by: MD CUNNINGHAM JEFFREY Transcribed Date and Time: 10/24/2020 6:01 [facility] [place], [place] Jose Cruz, [facility] Incoming Radiology Results From [facility] - 10/24/2020 6:02 AM EST [facility]: [id number] Radiology ACCESSION EXAM DATE/TIME PROCEDURE ORDERING PROVIDER [id number] 10/24/2020 05:26 EST CR Chest Portable AMARILIS GOMEZ AMBER A CPT code 66293 Reason For Exam (CR Chest Portable) Line [...] position without pneumothorax Report Dictated on Workstation: [facility] --- Final --- Dictating Physician: MD CUNNINGHAM JEFFREY Signed Date and Time: 10/24/2020 6:00 am Signed by: MD CUNNINGHAM JEFFREY Transcribed Date and Time: 10/24/2020 6:01 [place], [place] Patient Name: JOSEPH BROWN [facility]#: [id number] Diagnostic Radiology ACCESSION EXAM DATE/TIME PROCEDURE ORDERING PROVIDER [id number] 10/24/2020 05:26 EST CR Chest Portable AMARILIS GOMEZ, PILAR A CPT code 51865 Reason For Exam (CR Chest Portable) Line [...] position without pneumothorax Report Dictated on Workstation: [facility] --- Final --- Dictating Physician: MD CUNNINGHAM JEFFREY Signed Date and Time: 10/24/2020 6:00 am Signed by: MD CUNNINGHAM JEFFREY Transcribed Date and Time: 10/24/2020 6:01 [place], [place] C-Reactive Proteinon 021 CRP [Mass/Vol] 134.2 mg/L High 0 - 6 mg/L [place], [place] Comment on above: . Interpretation and review of laboratory results Abnormal [place] Test Performed by [facility], [facility] [address] CBC Auto Differentialon Absolute Baso # 0.0 10*3/uL 0 - 0.2 10*3/uL [place] Absolute Neut # 7.9 10*3/uL High 1.8 - 7 10*3/uL [place] Basophils/100 WBC (Bld) 0.1 % 0 - 2 % [place] Eosinophils (Bld) [#/Vol] 0.0 10*3/uL 0 - 0.5 10*3/uL [place] Eosinophils/100 WBC (Bld) 0.0 % Low 1 - 6 % [place] Erythrocyte distribution width (RBC) [Ratio] 14.5 % 11.5 - 14.5 % [place] Granulocytes/100 WBC (Bld) 87.7 % High 40 - 80 % [place] Hematocrit (Bld) [Volume fraction] 37.2 % Low 40 - 52 % [place] Hemoglobin (Bld) [Mass/Vol] 12.5 g/dL Low 13 - 18 g/dL [place] Interpretation and review of laboratory results Abnormal [place] Lymphocytes (Bld) [#/Vol] 0.5 10*3/uL Low 1 - 4.3 10*3/uL [place] Lymphocytes/100 WBC (Bld) 5.3 % Low 20 - 40 % [place] MCH (RBC) [Entitic mass] 30.5 pg 26 - 34 pg [place] MCHC (RBC) [Mass/Vol] 33.5 % 32 - 36 % [place] MCV (RBC) [Entitic vol] 91.0 fL 80 - 98 fL [place], [place] Monocytes (Bld) [#/Vol] 0.6 10*3/uL 0 - 0.8 10*3/uL [place], [place] Monocytes/100 WBC (Bld) 6.9 % 2 - 10 % [place] Platelet mean volume (Bld) [Entitic vol] 8.5 fL 7.4 - 10.4 fL [place] Platelets (Bld) [#/Vol] 314 10*3/uL 140 - 440 10*3/uL [place] RBC (Bld) [#/Vol] 4.09 10*6/uL Low 4.4 - 5.9 10*6/uL [place] WBC (Bld) [#/Vol] 9.0 10*3/uL 3.6 - 10.7 10*3/uL [place] Test Performed by [facility], [address], [place], [place] [address] [place] Comprehensive Metabolic Pane l w/ Reflex to MGon 10-23-2020 Albumin [Mass/Vol] 3.1 g/dL Low 3.5 - 5 g/dL [place] ALP [Catalytic activity/Vol] 66 U/L 38 - 126 U/L [place] ALT [Catalytic activity/Vol] 34 U/L 0 - 49 U/L [place] Comment on above: The ALT test is perf ormed by an updated assay method. Please note that the reference intervals have been changed and are now sex specific. Anion gap [Moles/Vol] 7 mmol/L [place], [place] AST [Catalytic activity/Vol] 40 U/L 15 - 46 U/L [place] Bilirubin Ql (U) 0.9 mg/dL 0.2 - 1.3 mg/dL [place] Calcium [Mass/Vol] 8.5 mg/dL 8.4 - 10. 4 mg/dL [place] Chloride [Moles/Vol] 104 mmol/L 98 - 10 7 mmol/L [place] CO2 [Moles/Vol] 27 mmol/L 22 - 30 mmol/L [place] Creatinine [Mass/Vol] 0.72 mg/dL 0.52 - 1.25 mg/dL [place], [place] EGFR IF NonAfrican Taiwanese >90.0 >60 mL/min [place], [place] Comment on above: KDIGO guidelines pro [...] MDRD (S/P/Bld) [Vol rate/Area] mL/min/{1.73_m2} >60 mL/min [place] Glucose [Mass/Vol] 106 mg/dL High 70 - 100 mg/dL [place] Potassium [Moles/Vol] 4.7 mmol/L 3.5 - 5.1 mmol/L [place] Protein [Mass/Vol] 6.4 g/dL 6.3 - 8.2 g/dL [place] Sodium [Moles/Vol] 138 mmol/L 135 - 145 mmol/L [place] Urea nitrogen [Mass/Vol] 24 mg/dL High 7 - 20 mg/d L [place] D-Dimer, Quantitativeon D-Dimer, Quant >35.20 High 0 - 0.5 mg/L [place], [place] Comment on above: [employer] D-Dimer va lues of <0.50 mg/L FEU can be used in combination with a pre-test probability model (e.g. Well's) to exclude pulmonary embolism (PE) disease, as well as an aid in the diagnosis of deep vein thrombosis (DVT). Interpretation and review of laboratory results Abnormal [place] Test Performed by [facility], [address], [place], [place] [address] [place] Ferritinon 10-23-2020 Ferritin [Mass/Vol] 552 ng/mL High 18 - 464 ng/mL [place] Interpretation and review of laboratory results Abnormal [place] Test Performed by [facility], [address], [place], [place] [address] [place] Lactate Dehydrogenaseon LD 434 U/L High 120 - 246 U/L [place] Magnesiumon 10-23-2020 Magnesium [Mass/Vol] 2.2 mg/dL 1.6 - 2 .3 mg/dL [place] Otheron 10-23-2020 Interpretation and review of laboratory results Abnormal [place] Test Performed by [facility], [address], [place], [place] [address] [place], [place] Phosphoruson 10-23-2020 Interpretation and review of laboratory results Abnormal [place] Phosphate [Mass/Vol] 4.6 mg/dL High 2.5 - 4 .5 mg/dL [place] Test Performed by [facility], [address], [place], [place] [address] [place], [place] C-Reactive Proteinon 021 CRP [Mass/Vol] 175.3 mg/L High 0 - 6 mg/L [place], [place] Comment on above: . CBC Auto Differentialon Absolute Baso # 0.0 10*3/uL 0 - 0.2 10*3/uL [place] Absolute Neut # 6.7 10*3/uL 1.8 - 7 10*3/uL [place] Basophils/100 WBC (Bld) 0.2 % 0 - 2 % [place] Eosinophils (Bld) [#/Vol] 0.0 10*3/uL 0 - 0.5 10*3/uL [place] Eosinophils/100 WBC (Bld) 0.0 % Low 1 - 6 % [place] Erythrocyte distribution width (RBC) [Ratio] 14.4 % 11.5 - 14.5 % [place], [place] Granulocytes/100 WBC (Bld) 86.2 % High 40 - 80 % [place] Hematocrit (Bld) [Volume fraction] 33.5 % Low 40 - 52 % [place] Hemoglobin (Bld) [Mass/Vol] 11.4 g/dL Low 13 - 18 g/dL [place], [place] Lymphocytes (Bld) [#/Vol] 0.4 10*3/uL Low 1 - 4.3 10*3/uL [place] Lymphocytes/100 WBC (Bld) 4.6 % Low 20 - 40 % [place] MCH (RBC) [Entitic mass] 30.7 pg 26 - 34 pg [place] MCHC (RBC) [Mass/Vol] 34.2 % 32 - 36 % [place] MCV (RBC) [Entitic vol] 89.9 fL 80 - 98 fL [place], [place] Monocytes (Bld) [#/Vol] 0.7 10*3/uL 0 - 0.8 10*3/uL [place], [place] Monocytes/100 WBC (Bld) 9.0 % 2 - 10 % [place], [place] Platelet mean volume (Bld) [Entitic vol] 7.9 fL 7.4 - 10.4 fL [place] Platelets (Bld) [#/Vol] 264 10*3/uL 140 - 440 10*3/uL [place] RBC (Bld) [#/Vol] 3.73 10*6/uL Low 4.4 - 5.9 10*6/uL [place] WBC (Bld) [#/Vol] 7.8 10*3/uL 3.6 - 10.7 10*3/uL [place] Comprehensive Metabolic Pane l w/ Reflex to MGon 10-22-2020 Albumin [Mass/Vol] 3.1 g/dL Low 3.5 - 5 g/dL [place] ALP [Catalytic activity/Vol] 58 U/L 38 - 126 U/L [place] ALT [Catalytic activity/Vol] 30 U/L 0 - 49 U/L [place] Comment on above: The ALT test is perf ormed by an updated assay method. Please note that the reference intervals have been changed and are now sex specific. Anion gap [Moles/Vol] 6 mmol/L [place], [place] AST [Catalytic activity/Vol] 44 U/L 15 - 46 U/L [place] Bilirubin Ql (U) 0.6 mg/dL 0.2 - 1.3 mg/dL [place] Calcium [Mass/Vol] 8.3 mg/dL Low 8.4 - 10. 4 mg/dL [place], [place] Chloride [Moles/Vol] 106 mmol/L 98 - 10 7 mmol/L [place] CO2 [Moles/Vol] 26 mmol/L 22 - 30 mmol/L [place] Creatinine [Mass/Vol] 0.6 mg/dL 0.52 - 1.25 mg/dL [place], [place] EGFR IF NonAfrican Taiwanese >90.0 >60 mL/min [place], [place] Comment on above: KDIGO guidelines pro [...] MDRD (S/P/Bld) [Vol rate/Area] mL/min/{1.73_m2} >60 mL/min [place] Glucose [Mass/Vol] 161 mg/dL High 70 - 100 mg/dL [place] Potassium [Moles/Vol] 4.8 mmol/L 3.5 - 5.1 mmol/L [place] Protein [Mass/Vol] 6.3 g/dL 6.3 - 8.2 g/dL [place] Sodium [Moles/Vol] 138 mmol/L 135 - 145 mmol/L [place], [place] Urea nitrogen [Mass/Vol] 24 mg/dL High 7 - 20 mg/d L [place] D-Dimer, Quantitativeon D-Dimer, Quant 5.34 mg/L High 0 - 0.5 mg/L [place], [place] Comment on above: [employer] D-Dimer va lues of <0.50 mg/L FEU can be used in combination with a pre-test probability model (e.g. Well's) to exclude pulmonary embolism (PE) disease, as well as an aid in the diagnosis of deep vein thrombosis (DVT). Ferritinon 10-22-2020 Ferritin [Mass/Vol] 589 ng/mL High 18 - 464 ng/mL [place] Lactate Dehydrogenaseon LD 417 U/L High 120 - 246 U/L [place], [place] Magnesiumon 10-22-2020 Magnesium [Mass/Vol] 2.5 mg/dL High 1.6 - 2 .3 mg/dL [place], [place] Otheron 10-22-2020 Interpretation and review of laboratory results Abnormal [place] Test Performed by [facility], [address] [place] [address] [address], [place], [place] [address] [place], [place] Phosphoruson 10-22-2020 Phosphate [Mass/Vol] 4.4 mg/dL 2.5 - 4 .5 mg/dL [place] C-Reactive Proteinon 021 CRP [Mass/Vol] 222.3 mg/L High 0 - 6 mg/L [place], [place] Comment on above: . CBC Auto Differentialon Absolute Baso # 0.0 10*3/uL 0 - 0.2 10*3/uL [place] Absolute Neut # 6.6 10*3/uL 1.8 - 7 10*3/uL [place] Basophils/100 WBC (Bld) 0.1 % 0 - 2 % [place] Eosinophils (Bld) [#/Vol] 0.0 10*3/uL 0 - 0.5 10*3/uL [place], [place] Eosinophils/100 WBC (Bld) 0.0 % Low 1 - 6 % [place] Erythrocyte distribution width (RBC) [Ratio] 14.9 % High 11.5 - 14.5 % [place], [place] Granulocytes/100 WBC (Bld) 85.6 % High 40 - 80 % [place] Hematocrit (Bld) [Volume fraction] 34.2 % Low 40 - 52 % [place], [place] Hemoglobin (Bld) [Mass/Vol] 11.2 g/dL Low 13 - 18 g/dL [place], [place] Interpretation and review of laboratory results Abnormal [place] Lymphocytes (Bld) [#/Vol] 0.4 10*3/uL Low 1 - 4.3 10*3/uL [place], [place] Lymphocytes/100 WBC (Bld) 5.6 % Low 20 - 40 % [place] MCH (RBC) [Entitic mass] 29.6 pg 26 - 34 pg [place] MCHC (RBC) [Mass/Vol] 32.8 % 32 - 36 % [place] MCV (RBC) [Entitic vol] 90.3 fL 80 - 98 fL [place], [place] Monocytes (Bld) [#/Vol] 0.7 10*3/uL 0 - 0.8 10*3/uL [place], [place] Monocytes/100 WBC (Bld) 8.7 % 2 - 10 % [place], [place] Platelet mean volume (Bld) [Entitic vol] 7.8 fL 7.4 - 10.4 fL [place], [place] Platelets (Bld) [#/Vol] 277 10*3/uL 140 - 440 10*3/uL [place] RBC (Bld) [#/Vol] 3.78 10*6/uL Low 4.4 - 5.9 10*6/uL [place] WBC (Bld) [#/Vol] 7.7 10*3/uL 3.6 - 10.7 10*3/uL [place] Test Performed by [facility], [address], [place], [place] [address] [place], [place] Comprehensive Metabolic Pane l w/ Reflex to MGon 10-21-2020 Albumin [Mass/Vol] 3.2 g/dL Low 3.5 - 5 g/dL [place] ALP [Catalytic activity/Vol] 58 U/L 38 - 126 U/L [place] ALT [Catalytic activity/Vol] 24 U/L 0 - 49 U/L [place], [place] Comment on above: The ALT test is perf ormed by an updated assay method. Please note that the reference intervals have been changed and are now sex specific. Anion gap [Moles/Vol] 5 mmol/L [place], [place] AST [Catalytic activity/Vol] 37 U/L 15 - 46 U/L [place] Bilirubin Ql (U) 0.8 mg/dL 0.2 - 1.3 mg/dL [place] Calcium [Mass/Vol] 8.2 mg/dL Low 8.4 - 10. 4 mg/dL [place] Chloride [Moles/Vol] 106 mmol/L 98 - 10 7 mmol/L [place] CO2 [Moles/Vol] 25 mmol/L 22 - 30 mmol/L [place] Creatinine [Mass/Vol] 0.68 mg/dL 0.52 - 1.25 mg/dL [place] EGFR IF NonAfrican Taiwanese >90.0 >60 mL/min [place] Comment on above: KDIGO guidelines pro [...] MDRD (S/P/Bld) [Vol rate/Area] mL/min/{1.73_m2} >60 mL/min [place] Glucose [Mass/Vol] 148 mg/dL High 70 - 100 mg/dL [place] Potassium [Moles/Vol] 5.0 mmol/L 3.5 - 5.1 mmol/L [place] Protein [Mass/Vol] 6.3 g/dL 6.3 - 8.2 g/dL [place] Sodium [Moles/Vol] 136 mmol/L 135 - 145 mmol/L [place] Urea nitrogen [Mass/Vol] 25 mg/dL High 7 - 20 mg/d L [place] D-Dimer, Quantitativeon D-Dimer, Quant 0.6 mg/L High 0 - 0.5 mg/L [place], [place] Comment on above: [employer] D-Dimer va lues of <0.50 mg/L FEU can be used in combination with a pre-test probability model (e.g. Well's) to exclude pulmonary embolism (PE) disease, as well as an aid in the diagnosis of deep vein thrombosis (DVT). Interpretation and review of laboratory results Abnormal [place] Test Performed by [facility], [address] [place], [place] [address] [place] Ferritinon 10-21-2020 Ferritin [Mass/Vol] 602 ng/mL High 18 - 464 ng/mL [place] Interpretation and review of laboratory results Abnormal [place] Test Performed by [facility], [address] [place], [place] [address] [place], [place] Lactate Dehydrogenaseon LD 416 U/L High 120 - 246 U/L [place] Magnesiumon 10-21-2020 Magnesium [Mass/Vol] 2.6 mg/dL High 1.6 - 2 .3 mg/dL [place] Otheron 10-21-2020 Interpretation and review of laboratory results Abnormal [place] Test Performed by [facility], [address], [place], [place] [address] [place] Phosphoruson 10-21-2020 Phosphate [Mass/Vol] 3.5 mg/dL 2.5 - 4 .5 mg/dL [place], [place] Add On Lab Teston 10-20-2020 Sodium [Moles/Vol] Accepted [place], [place] Comment on above: Specimen available & acceptable for analysis. Test Performed by [facility], [address], [place], [place] [address] [place], [place] C-Reactive Proteinon 021 CRP [Mass/Vol] 240.7 mg/L High 0 - 6 mg/L [place], [place] Comment on above: . Interpretation and review of laboratory results Abnormal [place] Test Performed by [facility], [address], [place], [place] [address] [place] CBC Auto Differentialon Absolute Baso # 0.0 10*3/uL 0 - 0.2 10*3/uL [place] Absolute Neut # 10.0 10*3/uL High 1.8 - 7 10*3/uL [place] Basophils/100 WBC (Bld) 0.1 % 0 - 2 % [place] Eosinophils (Bld) [#/Vol] 0.0 10*3/uL 0 - 0.5 10*3/uL [place] Eosinophils/100 WBC (Bld) 0.0 % Low 1 - 6 % [place] Erythrocyte distribution width (RBC) [Ratio] 14.6 % High 11.5 - 14.5 % [place] Granulocytes/100 WBC (Bld) 90.0 % High 40 - 80 % [place] Hematocrit (Bld) [Volume fraction] 36.8 % Low 40 - 52 % [place] Hemoglobin (Bld) [Mass/Vol] 12.4 g/dL Low 13 - 18 g/dL [place] Interpretation and review of laboratory results Abnormal [place] Lymphocytes (Bld) [#/Vol] 0.5 10*3/uL Low 1 - 4.3 10*3/uL [place] Lymphocytes/100 WBC (Bld) 4.4 % Low 20 - 40 % [place] MCH (RBC) [Entitic mass] 30.4 pg 26 - 34 pg [place] MCHC (RBC) [Mass/Vol] 33.7 % 32 - 36 % [place] MCV (RBC) [Entitic vol] 90.1 fL 80 - 98 fL [place], [place] Monocytes (Bld) [#/Vol] 0.6 10*3/uL 0 - 0.8 10*3/uL [place] Monocytes/100 WBC (Bld) 5.5 % 2 - 10 % [place] Platelet mean volume (Bld) [Entitic vol] 8.0 fL 7.4 - 10.4 fL [place] Platelets (Bld) [#/Vol] 237 10*3/uL 140 - 440 10*3/uL [place] RBC (Bld) [#/Vol] 4.09 10*6/uL Low 4.4 - 5.9 10*6/uL [place] WBC (Bld) [#/Vol] 11.1 10*3/uL High 3.6 - 10.7 10*3/uL [place] Test Performed by [facility], [address] [place], [place] [address] [place] Comprehensive Metabolic Pane l w/ Reflex to MGon 10-20-2020 Albumin [Mass/Vol] 3.4 g/dL Low 3.5 - 5 g/dL [place] ALP [Catalytic activity/Vol] 61 U/L 38 - 126 U/L [place] ALT [Catalytic activity/Vol] 28 U/L 0 - 49 U/L [place] Comment on above: The ALT test is perf ormed by an updated assay method. Please note that the reference intervals have been changed and are now sex specific. Anion gap [Moles/Vol] 7 mmol/L [place] AST [Catalytic activity/Vol] 44 U/L 15 - 46 U/L [place] Bilirubin Ql (U) 0.9 mg/dL 0.2 - 1.3 mg/dL [place] Calcium [Mass/Vol] 8.0 mg/dL Low 8.4 - 10. 4 mg/dL [place] Chloride [Moles/Vol] 103 mmol/L 98 - 10 7 mmol/L [place] CO2 [Moles/Vol] 27 mmol/L 22 - 30 mmol/L [place] Creatinine [Mass/Vol] 0.9 mg/dL 0.52 - 1.25 mg/dL [place] EGFR IF NonAfrican Taiwanese 88.1 mL/min >60 [place] Comment on above: KDIGO guidelines pro [...] MDRD (S/P/Bld) [Vol rate/Area] mL/min/{1.73_m2} >60 mL/min [place] Glucose [Mass/Vol] 148 mg/dL High 70 - 100 mg/dL [place] Potassium [Moles/Vol] 4.3 mmol/L 3.5 - 5.1 mmol/L [place] Protein [Mass/Vol] 6.7 g/dL 6.3 - 8.2 g/dL [place] Sodium [Moles/Vol] 137 mmol/L 135 - 145 mmol/L [place] Urea nitrogen [Mass/Vol] 24 mg/dL High 7 - 20 mg/d L [place] D-Dimer, Quantitativeon - D-Dimer, Quant 0.76 mg/L High 0 - 0.5 mg/L [place] Comment on above: [employer] D-Dimer va lues of <0.50 mg/L FEU can be used in combination with a pre-test probability model (e.g. Well's) to exclude pulmonary embolism (PE) disease, as well as an aid in the diagnosis of deep vein thrombosis (DVT). Interpretation and review of laboratory results Abnormal [place] Test Performed by [facility], [address] [place] [address] [place] EKG 12 Lead - Chest Painon 0 10-20-2020 [facility]/2020 1:54 PM EST [facility] Test Date: 2020-10-19 Pat Name: Joseph Brown Department: Room: 222 Gender: M Manager Gallery: MATT : 1955 Requested By: CANDELARIO LOMELI Order Number: [id number] Reading MD: Lady Lemus Measurements Intervals [place] Rate: 83 P: 0 CT: 137 QRS: 7 QRSD: 94 T: 24 QT: 376 QTc: 442 Interpretive Statements SINUS RHYTHM EARLY PRECORDIAL R/S TRANSITION BASELINE WANDER IN LEAD(S) V2 Compared to ECG 10/16/2020 08:11:54 No significant changes Electronically Signed On 10-20-2020 13:53:25 EST by Lady Lemus [place] [facility] Test Date: 2020-10-19 Pat Name: Joseph Brown Department: Room: 222 Gender: M Manager Gallery: MATT : 1955 Requested By: CANDELARIO LOMELI Order Number: [id number] Reading MD: Lady Lemus Measurements Intervals [place] Rate: 83 P: 0 CT: 137 QRS: 7 QRSD: 94 T: 24 QT: 376 QTc: 442 Interpretive Statements SINUS RHYTHM EARLY PRECORDIAL R/S TRANSITION BASELINE WANDER IN LEAD(S) V2 Compared to ECG 10/16/2020 08:11:54 No significant changes Electronically Signed On 10-20-2020 13:53:25 EST by Lady Lemus [facility] Ferritinon 10-20-2020 Ferritin [Mass/Vol] 605 ng/mL High 18 - 464 ng/mL [facility], [place] Interpretation and review of laboratory results Abnormal [facility] [employer], [place] Test Performed by [facility], [address] [place], [place] [address] [facility], [place] Lactate Dehydrogenaseon LD 437 U/L High 120 - 246 U/L [facility] [employer], [place] Magnesiumon 10-20-2020 Magnesium [Mass/Vol] 2.3 mg/dL 1.6 - 2 .3 mg/dL [facility], [place] Otheron 10-20-2020 Interpretation and review of laboratory results Abnormal [facility] [employer], [employer] Test Performed by [facility], [address], [place], [place] [address] [facility] [employer], [employer] POCT Arterialon 10-20-2020 Base Excess, Arterial -1.7 mmol/L -3 - 3 mmol/L [facility] [employer], [place] HCO3, Arterial 22.0 mmol/L 21 - 25 mmol/L [facility] [employer], [place] Interpretation and review of laboratory results Abnormal [facility] [employer] [place], [place] Oxygen saturation in Blood 98.2 % 95 - 100 % [facility] [employer], [place] pCO2, Arterial 33.1 mm[Hg] Low 35 - 45 mm[Hg] [facility] [place], [place] pH, Arterial 7.431 [facility] [place], [place] pO2, Arterial 104.4 mm[Hg] High 80 - 100 mm[Hg] [facility] [employer], [place] Sodium [Moles/Vol] 100 mmol/L [facility] [employer], [place] Comment on above: Performed by DELFINO ID : [id number] [facility] [place], [place] TCO2, Arterial 23.1 mmol/L 23 - 27 mmol/L [facility] [employer], [place] Test Performed by [facility], [address], [place], [place] [address] [place] Phosphoruson 10-20-2020 Phosphate [Mass/Vol] 2.9 mg/dL 2.5 - 4 .5 mg/dL [place] Test Performed by [facility], [address], [place], [place] [address] [place] Procalcitoninon 10-20-2020 Interpretation and review of laboratory results Abnormal [place] Procalcitonin 0.23 ng/mL Abnormal <0.10 [place] Sodium [Moles/Vol] See Below [place] Comment on above: PCT <0.50 = Low risk of severe sepsis and/or septic shock. PCT >2.00 = High risk of severe sepsis and/or septic shock. Test Performed by [facility], [address] [place] [address] [place] Vitamin D 25 Hydroxyon 10-20 Interpretation and review of laboratory results Abnormal [place] Vit D, 25-Hydroxy 23 ng/mL Low 30 - 100 ng/mL [place] Comment on above: Therapy is based on measurement of Total 25-OHD with the following classification levels: Less than 20 ng/mL: Indicative of Vit D deficiency 20-30 ng/mL: Suggests Vit D insufficiency Optimal: Greater than or equal to 30 ng/mL Test performed by [employer], measuring Total Vitamin D, not individual fractions. Test Performed by [facility], [address], [place], [place] [address] [place] CTA CHEST W WO CONTRASTon [facility]: [id number] Computed Tomography ACCESSION EXAM DATE/TIME PROCEDURE ORDERING PROVIDER [id number] 10/19/2020 18:48 EST CTA Chest w/ + w/o Parvez GREEN MICHAEL Contrast THOMAS CPT code 80794 Q9967 Reason For Exam (CTA Chest w/ [...] NEIL Transcribed Date and Time: 10/19/2020 7:59 [facility], [place] Jose Cruz, [facility] Incoming Radiology Results From [facility] - 10/19/2020 7:59 PM EST Patient Name: JOSEPH BROWN Computed Tomography ACCESSION EXAM DATE/TIME PROCEDURE ORDERING PROVIDER [phone] 10/19/2020 18:48 EST CTA Chest w/ + w/o Parvez GREEN MICHAEL Contrast THOMAS CPT code 56204 Q9967 Reason For Exam (CTA Chest w/ [...] NEIL Transcribed Date and Time: 10/19/2020 7:59 [place], [place] Comprehensive Metabolic Pane [place] 10-19-2020 Albumin [Mass/Vol] 3.4 g/dL Low 3.5 - 5 g/dL [place], [place] ALP [Catalytic activity/Vol] 58 U/L 38 - 126 U/L [place], [place] ALT [Catalytic activity/Vol] 29 U/L 0 - 49 U/L [place], [place] Comment on above: The ALT test is perf ormed by an updated assay method. Please note that the reference intervals have been changed and are now sex specific. Anion gap [Moles/Vol] 8 mmol/L [facility] [place], [place] AST [Catalytic activity/Vol] 40 U/L 15 - 46 U/L [place] Bilirubin Ql (U) 0.9 mg/dL 0.2 - 1.3 mg/dL [place] Calcium [Mass/Vol] 7.9 mg/dL Low 8.4 - 10. 4 mg/dL [place] Chloride [Moles/Vol] 103 mmol/L 98 - 10 7 mmol/L [place] CO2 [Moles/Vol] 25 mmol/L 22 - 30 mmol/L [place] Creatinine [Mass/Vol] 0.9 mg/dL 0.52 - 1.25 mg/dL [place] EGFR IF NonAfrican Taiwanese 88.1 mL/min >60 [place] Comment on above: KDIGO guidelines pro [...] MDRD (S/P/Bld) [Vol rate/Area] mL/min/{1.73_m2} >60 mL/min [place] Glucose [Mass/Vol] 145 mg/dL High 70 - 100 mg/dL [place] Interpretation and review of laboratory results Abnormal [place] Potassium [Moles/Vol] 3.7 mmol/L 3.5 - 5.1 mmol/L [place] Protein [Mass/Vol] 6.5 g/dL 6.3 - 8.2 g/dL [place] Sodium [Moles/Vol] 135 mmol/L 135 - 145 mmol/L [place] Urea nitrogen [Mass/Vol] 19 mg/dL 7 - 20 mg/d L [place] Test Performed by [facility], [address], [place], [place] [address] [place] Hemogram (CBC) w/Auto Diffon 10-19-2020 Absolute Baso # 0.0 10*3/uL 0 - 0.2 10*3/uL [place] Absolute Neut # 8.2 10*3/uL High 1.8 - 7 10*3/uL [place] Basophils/100 WBC (Bld) 0.1 % 0 - 2 % [place] Eosinophils (Bld) [#/Vol] 0.0 10*3/uL 0 - 0.5 10*3/uL [place] Eosinophils/100 WBC (Bld) 0.0 % Low 1 - 6 % [place] Erythrocyte distribution width (RBC) [Ratio] 14.3 % 11.5 - 14.5 % [place] Granulocytes/100 WBC (Bld) 88.4 % High 40 - 80 % [place] Hematocrit (Bld) [Volume fraction] 36.3 % Low 40 - 52 % [place] Hemoglobin (Bld) [Mass/Vol] 12.1 g/dL Low 13 - 18 g/dL [place] Interpretation and review of laboratory results Abnormal [place] Lymphocytes (Bld) [#/Vol] 0.4 10*3/uL Low 1 - 4.3 10*3/uL [place] Lymphocytes/100 WBC (Bld) 4.3 % Low 20 - 40 % [place] MCH (RBC) [Entitic mass] 29.7 pg 26 - 34 pg [place] MCHC (RBC) [Mass/Vol] 33.3 % 32 - 36 % [place] MCV (RBC) [Entitic vol] 89.2 fL 80 - 98 fL [place] Monocytes (Bld) [#/Vol] 0.7 10*3/uL 0 - 0.8 10*3/uL [place] Monocytes/100 WBC (Bld) 7.2 % 2 - 10 % [place] Platelet mean volume (Bld) [Entitic vol] 8.3 fL 7.4 - 10.4 fL [place] Platelets (Bld) [#/Vol] 217 10*3/uL 140 - 440 10*3/uL [place] RBC (Bld) [#/Vol] 4.07 10*6/uL Low 4.4 - 5.9 10*6/uL [place] WBC (Bld) [#/Vol] 9.3 10*3/uL 3.6 - 10.7 10*3/uL [place] Test Performed by [facility], [address] Troponinon 10-19-2020 Interpretation and review of laboratory results Abnormal [place] Troponin I.cardiac [Mass/Vol] 0.601 ng/mL High 0 - 0.034 ng/mL [place] Comment on above: . Test Performed by [facility], [address] Interpretation and review of laboratory results Abnormal [place] Troponin I.cardiac [Mass/Vol] 0.726 ng/mL High 0 - 0.034 ng/mL [place] Comment on above: . Test Performed by [facility], [address] Interpretation and review of laboratory results Abnormal [place] Troponin I.cardiac [Mass/Vol] 0.922 ng/mL High 0 - 0.034 ng/mL [place] Comment on above: . Test Performed by [facility], [address] Troponin x1on 10-19-2020 Interpretation and review of laboratory results Abnormal [place] Troponin I.cardiac [Mass/Vol] 0.642 ng/mL High 0 - 0.034 ng/mL [place] Comment on above: . Test Performed by [facility], [address], [place], [place] [address] [place] XR CHEST PORTABLEon 10-19-19 Jose Cruz, [facility] Incoming Radiology Results From [employer] - 10/19/2020 10:01 AM EST Patient Name: JOSEPH BROWN Diagnostic Radiology ACCESSION EXAM DATE/TIME PROCEDURE ORDERING PROVIDER [id number] 10/19/2020 09:34 EST CR Chest Portable [id number] -CARLYN LOMELIER CPT code 30266 Reason For Exam (CR Chest Portable) COVID [...] RISA Transcribed Date and Time: 10/19/2020 10:01 [place] Patient Name: JOSEPH BROWN Diagnostic Radiology ACCESSION EXAM DATE/TIME PROCEDURE ORDERING PROVIDER [id number] 10/19/2020 09:34 EST CR Chest Portable [id number] -CANDELARIO LOMELI CPT code 50040 Reason For Exam (CR Chest Portable) COVID [...] RISA Transcribed Date and Time: 10/19/2020 10:01 [place] Basic Metabolic Panelon Anion gap [Moles/Vol] 6 mmol/L [place] Calcium [Mass/Vol] 8.4 mg/dL 8.4 - 10. 4 mg/dL [place] Chloride [Moles/Vol] 105 mmol/L 98 - 10 7 mmol/L [place] CO2 [Moles/Vol] 24 mmol/L 22 - 30 mmol/L [place] Creatinine [Mass/Vol] 0.67 mg/dL 0.52 - 1.25 mg/dL [place] EGFR IF NonAfrican Taiwanese >90.0 >60 mL/min [place] Comment on above: KDIGO guidelines pro [...] MDRD (S/P/Bld) [Vol rate/Area] mL/min/{1.73_m2} >60 mL/min [place] Glucose [Mass/Vol] 120 mg/dL High 70 - 100 mg/dL [place] Interpretation and review of laboratory results Abnormal [place] Potassium [Moles/Vol] 4.0 mmol/L 3.5 - 5.1 mmol/L [place] Sodium [Moles/Vol] 134 mmol/L Low 135 - 145 mmol/L [place] Urea nitrogen [Mass/Vol] 11 mg/dL 7 - 20 mg/d L [place] Test Performed by [facility] [employer] [facility], [address], [place], [place] [address] [place] Hemogram (CBC) w/Auto Diffon 10-16-2020 Absolute Baso # 0.0 10*3/uL 0 - 0.2 10*3/uL [place] Absolute Neut # 3.4 10*3/uL 1.8 - 7 10*3/uL [place] Basophils/100 WBC (Bld) 0.6 % 0 - 2 % [place] Eosinophils (Bld) [#/Vol] 0.0 10*3/uL 0 - 0.5 10*3/uL [place] Eosinophils/100 WBC (Bld) 0.5 % Low 1 - 6 % [place] Erythrocyte distribution width (RBC) [Ratio] 14.2 % 11.5 - 14.5 % [place] Granulocytes/100 WBC (Bld) 72.7 % 40 - 80 % [place] Hematocrit (Bld) [Volume fraction] 42.4 % 40 - 52 % [place] Hemoglobin (Bld) [Mass/Vol] 14.0 g/dL 13 - 18 g/dL [place] Interpretation and review of laboratory results Abnormal [place] Lymphocytes (Bld) [#/Vol] 0.9 10*3/uL Low 1 - 4.3 10*3/uL [place] Lymphocytes/100 WBC (Bld) 19.1 % Low 20 - 40 % [place] MCH (RBC) [Entitic mass] 29.5 pg 26 - 34 pg [place] MCHC (RBC) [Mass/Vol] 33.0 % 32 - 36 % [place] MCV (RBC) [Entitic vol] 89.4 fL 80 - 98 fL [place] Monocytes (Bld) [#/Vol] 0.3 10*3/uL 0 - 0.8 10*3/uL [place] Monocytes/100 WBC (Bld) 7.1 % 2 - 10 % [place] Platelet mean volume (Bld) [Entitic vol] 8.0 fL 7.4 - 10.4 fL [place] Platelets (Bld) [#/Vol] 138 10*3/uL Low 140 - 440 10*3/uL [place] RBC (Bld) [#/Vol] 4.74 10*6/uL 4.4 - 5.9 10*6/uL [place] WBC (Bld) [#/Vol] 4.7 10*3/uL 3.6 - 10.7 10*3/uL [place] Test Performed by [facility], [address] Troponin x1on 10-16-2020 Troponin I.cardiac [Mass/Vol] ng/mL 0 - 0.034 ng/mL [place] Comment on above: . Test Performed by [facility], [address] XR CHEST PORTABLEon 10-16-19 21 [facility], [facility] Incoming Radiology Results From [facility] - 10/16/2020 8:47 AM EST Patient Name: JOSEPH BROWN Diagnostic Radiology ACCESSION EXAM DATE/TIME PROCEDURE ORDERING PROVIDER [id number] 10/16/2020 08:34 EST CR Chest Portable MD LOPEZ AUSTIN CPT code 61350 Reason For Exam (CR Chest Portable) cough, [...] JASON Transcribed Date and Time: 10/16/2020 8:47 [place] [id number] Radiology ACCESSION EXAM DATE/TIME PROCEDURE ORDERING PROVIDER [id number] 10/16/2020 08:34 EST CR Chest Portable MD LOPEZ AUSTIN CPT code 30349 Reason For Exam (CR Chest Portable) cough, [...] JASON Transcribed Date and Time: 10/16/2020 8:47 [place] EMG REPORTon 12-20-2019 William Correia MD [...] UPPER EXTREMITY LOCATION: Testing was conducted at [facility] as an outpatient. FINDINGS: Sensory nerve [...] Clinical correlation is advised. Delonte Job ID: [id number] DOD:12/20/2019 09:39 A Amadou DOT:12/20/2019 10:37 A Job Number: [id number] Document Number: [id number] ###### cc: Laquita Ding DO [facility] [address] [facility] [address] [facility] [id number] [place] [address] AAA Screeningon 9 [facility] Abdominal Aortic Duplex Report Patient Name: Joseph Brown : 1955 Study Date: 06/05/2019 Neet[place] (63yrs) Age: 63 Account: [id number] Gender: M Loc: BP: Ordering: Laquita Ding Technologist: Ordering Physician: Laquita Ding Stamp Press Operator: Dina [place] Interpreting Physician: Brody Stewart Location: [facility] INDICATIONS: AAA screening Z87.891. Remote former smoker, [...] performed. The images were obtained using a Tripping E9 vascular ultrasound machine. Arterial flow: + [...] +-------- + Electronically signed by: Brody Stewart [id number]:30 [facility] [place], [place] Jose Cruz, [facility] Incoming Cardiology Results From Kathleen/Torrey - 06/05/2019 1:10 PM EDT [facility] --- Abdominal Aortic Duplex Report Patient Name: Joseph Brown : 1955 Study Date: 06/05/2019 Neetu (63yrs) Age: 63 Account: [id number] Gender: M Loc: BP: Ordering: Laquita Ding Technologist: Ordering Physician: Laquita Ding Stamp Press Operator: Dina [place] Interpreting Physician: Brody Stewart --- Location: [facility] --- INDICATIONS: AAA screening Z87.891. Remote former [...] performed. The images were obtained using a Tripping E9 vascular ultrasound machine. --- Arterial flow: [...] +-------- + Electronically signed by: Brody Stewart [id number] [facility], [place] Vital Signs Date Time Vital Sign Value Performing Clinician Facility 07-04-2025 13:13-0400 Body temperature 97.8 [degF] LAQUITA DING Work Phone: [facility] 07-04-2025 13:13-0400 Diastolic blood pressure 78 mm[Hg] LAQUITA DING Work Phone: [facility] 07-04-2025 13:13-0400 Heart rate 64 /min LAQUITA DING Work Phone: [facility] 07-04-2025 13:13-0400 Respiratory rate 18 /min LAQUITA DING Work Phone: [facility] 07-04-2025 13:13-0400 SaO2% (BldA) [Mass fraction] 99 % LAQUITA DING Work Phone: [facility] 07-04-2025 13:13-0400 Systolic blood pressure 114 mm[Hg] LAQIUTA DING Work Phone: [facility] 07-04-2025 09:52-0400 Body mass index (BMI) [Ratio] 33.7 kg/m2 LAQUITA DING Work Phone: [facility] 07-04-2025 09:52-0400 Body weight 112.76 kg LAQUITA DING Work Phone: [facility] 07-04-2025 09:41-0400 Body height 182.88 cm LAQUITA DING Work Phone: [facility] 06-09-2025 15:04-0400 Body temperature 97.39 [degF] Marjorie Sears MD Work Phone: [facility] 06-09-2025 15:04-0400 Diastolic blood pressure 76 mm[Hg] Marjorie Sears MD Work Phone: [facility] 06-09-2025 15:04-0400 Heart rate 85 /min Marjorie Sears MD Work Phone: [facility] 06-09-2025 15:04-0400 Respiratory rate 19 /min Marjorie Sears MD Work Phone: [facility] 06-09-2025 15:04-0400 SaO2% (BldA) [Mass fraction] 96 % Marjorie Sears MD Work Phone: [facility] 06-09-2025 15:04-0400 Systolic blood pressure 137 mm[Hg] Marjorie Sears MD Work Phone: [facility] 05-22-2025 08:12-0400 Body temperature 96.91 [degF] Jacoby Glozman DO Work Phone: [facility] 05-22-2025 08:12-0400 Diastolic blood pressure 69 mm[Hg] Jacoby Glozman DO Work Phone: [facility] 05-22-2025 08:12-0400 Heart rate 74 /min Jacoby Glozman DO Work Phone: [facility] 05-22-2025 08:12-0400 Respiratory rate 20 /min Jacoby Glozman DO Work Phone: [facility] 05-22-2025 08:12-0400 SaO2% (BldA) [Mass fraction] 99 % Jacoby Glozman DO Work Phone: [facility] 05-22-2025 08:12-0400 Systolic blood pressure 122 mm[Hg] Jacoby Glozman DO Work Phone: [facility] 05-21-2025 02:06-0400 Body height 182.9 cm Jacoby Glozman DO Work Phone: [facility] 05-21-2025 02:06-0400 Body mass index (BMI) [Ratio] 31.87 kg/m2 Jacoby Glozman DO Work Phone: [facility] 05-21-2025 02:06-0400 Body weight 106.59 kg Jacoby Glozman DO Work Phone: [facility] 12-20-2024 11:18-0500 Diastolic blood pressure 65 mm[Hg] Cydney Alondra DO Work Phone: [facility] 12-20-2024 11:18-0500 Heart rate 73 /min Cydney Alondra DO Work Phone: [facility] 12-20-2024 11:18-0500 SaO2% (BldA) [Mass fraction] 98 % Cydney Alondra DO Work Phone: [facility] 12-20-2024 11:18-0500 Systolic blood pressure 118 mm[Hg] Cydney Cantu [employer] Work Phone: [facility] 12-20-2024 09:09-0500 Body height 185.4 cm Cydney Alondra [employer] Work Phone: [facility] 12-20-2024 09:09-0500 Body mass index (BMI) [Ratio] 31.66 kg/m2 Cydney [employer]ems Work Phone: [facility] 12-20-2024 09:09-0500 Body weight 108.86 kg Cydney Alondra DO Work Phone: [facility] 12-20-2024 09:09-0500 Respiratory rate 20 /min Cydney Alondra DO [facility] 11-04-2020 11:12-0500 Body Temperature 97.39 [degF] [facility] [employer] [facility] [place] 11-04-2020 11:12-0500 BP Diastolic 63 mm[Hg] [facility] , [place] 11-04-2020 11:12-0500 BP Systolic 105 mm[Hg] [facility] , [place] 11-04-2020 11:12-0500 Pulse (Heart Rate) 69 /min [facility], [place] 11-04-2020 11:12-0500 Pulse Oximetry 94 % [facility] , [place] 11-04-2020 11:12-0500 Respiratory Rate 18 /min [facility] [place] 11-04-2020 06:31-0500 BMI (Body Mass Index) 31.1 kg/m2 [facility], [place] 11-04-2020 06:31-0500 Body weight 104.01 kg [facility] , [place] 11-02-2020 15:27-0500 Height 182.9 cm Candelario Lomeli [facility] , [place] 10-16-2020 10:01-0500 BP Diastolic 70 mm[Hg] Fransisco [facility] , [place] 10-16-2020 10:01-0500 BP Systolic 129 mm[Hg] [facility] , [place] 10-16-2020 10:01-0500 Pulse (Heart Rate) 87 /min [facility], [place] 10-16-2020 10:01-0500 Pulse Oximetry 97 % [facility] , [place] 10-16-2020 10:01-0500 Respiratory Rate 20 /min [facility], [place] 10-16-2020 07:56-0500 BMI (Body Mass Index) 32.28 kg/m2 [facility], [place] 10-16-2020 07:56-0500 Body Temperature 99.19 [degF] [facility], [place] 10-16-2020 07:56-0500 Body weight 107.96 kg [facility] , [place] Encounters Encounter Date Encounter Type Care Provider Facility Start: 08-13-2025 End: 08-13-2025 ambulatory [facility] Start: 08-13-2025 End: 08-13-2025 Patient encounter procedure Kim Downing RN [facility] Start: 07-05-2025 Encounter for preprocedural laboratory examination Haresh Johnson [facility] Start: 07-04-2025 End: 07-04-2025 Emergency department patient visit Lawrence Abad Facility:[facility] Start: 07-01-2025 End: 07-01-2025 ambulatory LAQUITA DING Work Phone: -Laboratory Specimen Start: 07-01-2025 End: 07-01-[address] Haresh Johnson MD -Laboratory Specimen Work Phone: Start: 07-01-2025 End: 07-01-2025 ambulatory Haresh Johnson Facility:[facility] Start: 06-25-2025 End: 06-25-2025 ambulatory LAQUITA DING Work Phone: -Laboratory Start: 06-25-2025 End: 06-25-[address] Haresh Johnson MD -Laboratory Work Phone: Start: 06-25-2025 End: 06-25-2025 ambulatory Haresh Johnson Facility:[facility] Start: 06-09-2025 End: 06-09-2025 Emergency department patient visit Marjorie Sears MD Work Phone: [facility] ED Comment on above: Laceration of right thumb without foreign body without damage to nail, initial encounter (Primary Dx) Start: 05-20-2025 End: 05-22-2025 [facility] Start: 05-20-2025 End: 05-22-2025 Evaluation and management of inpatient Jacoby Sanders DO Work Phone: [facility] Medical Surgical Unit MSU 4S Comment on above: Dizziness (Primary D x) Start: 05-20-2025 End: 05-20-2025 Subsequent hospital visit by physician [facility] Non-Invasive Cardiology Comment on above: Arrived Start: 05-20-2025 End: 05-20-2025 Emergency department patient visit [facility] Start: 12-20-2024 End: 12-20-2024 Emergency department patient visit Cydney Cantu DO Work Phone: [facility] ED Comment on above: Sinusitis, unspecifi [...] physician Laquita Ding DO Work Phone: [facility] Start: 08-09-2021 End: 08-09-2021 Subsequent hospital visit by physician Laquita Ding DO Work Phone: [facility] Start: 08-04-2021 End: 08-04-2021 Subsequent hospital visit by physician Laquita Ding DO Work Phone: [facility] Start: 08-02-2021 End: 08-02-2021 Subsequent hospital visit by physician Laquita Ding DO Work Phone: [facility] Start: 07-28-2021 End: 07-28-2021 Subsequent hospital visit by physician Laquita Ding DO Work Phone: [facility] Start: 07-26-2021 End: 07-26-2021 Subsequent hospital visit by physician Laquita Ding DO Work Phone: [facility] Start: 07-23-2021 End: 07-23-2021 Subsequent hospital visit by physician Laquita Ding DO Work Phone: [facility] Start: 04-06-2021 End: 04-06-2021 Subsequent hospital visit by physician Carolina Francois MD Work Phone: [facility] Radiology Comment on above: Pneumonia due to COV ID-19 virus Start: 12-09-2020 End: 12-09-2020 Subsequent hospital visit by physician Venkat Grant Work Phone: [facility] ECHO Comment on above: Supraventricular tac hycardia (HCC); SVT (supraventricular tachycardia) (HCC) Pneumonia due to COV ID-19 virus Start: 10-19-2020 End: 11-04-2020 Evaluation and management of inpatient Candelario Lomeli Work Phone: [facility] 2E TELEMETRY Comment on above: Pneumonia due to COV ID-19 virus (Primary Dx); Elevated troponin Start: 10-16-2020 End: 10-16-2020 Emergency department patient visit Fransisco Lopez Work Phone: [facility] Comment on above: Cough (Primary Dx); COVID-19 Start: 12-20-2019 End: 12-20-2019 Subsequent hospital visit by physician Laquita Ding Work Phone: [facility] Comment on above: Arrived Start: 06-05-2019 End: 06-05-2019 Subsequent hospital visit by physician Laquita Ding Work Phone: [facility] Vascular Lab Comment on above: Arrived Procedures [...] Mra head w/o contrst material 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 - [employer] Work Phone: Start: 05-21-2025 Assay of troponin [...] Start: 10-23-2020 Fibrin dgradj products d-dimer quantitative Abiel Luke [...] 10-21-2020 Blood count complete auto&auto difrntl wbc Aibel Luke Work Phone: Start: 10-21-2020 C-reactive protein [...] DTaP/Tdap/Td Vaccines (4 - Td or Tdap) [facility] Start: 05-22-2030 Lipid panel Lipid Panel [facility] Start: 08-06-2027 DTaP/Tdap/Td vaccine (2 - Td) DTaP/Tdap/Td vaccine (2 - Td) [place] Start: 08-06-2027 DTaP/Tdap/Td vaccine (3 - Td or Tdap) DTaP/Tdap/Td vaccine (3 - Td or Tdap) [facility] Start: 08-06-2027 DTaP/Tdap/Td vaccine (3 - Td) DTaP/Tdap/Td vaccine (3 - Td) [place] Start: 08-06-2027 DTaP/Tdap/Td Vaccine s (3 - Td or Tdap) DTaP/Tdap/Td Vaccines (3 - Td or Tdap) [facility] Start: 05-22-2026 Creatinine measurement Creatinine Le krishna [facility] Start: 05-22-2026 Diabetes mellitus screening Diabetes Screening [facility] Start: 05-22-2026 Potassium measurement Potassium Leve l [facility] Start: 07-04-2025 [facility] Start: 06-16-2025 COVID-19 Vaccine ( season) COVID-19 Vaccine ( season) [facility] Start: 06-16-2025 Influenza vaccination Influenza Vacc ine (#1) [facility] Start: 06-16-2024 COVID-19 Vaccine ( season) COVID-19 Vaccine ( season) [facility] Start: 06-16-2024 Influenza vaccination Influenza Vacc ine (#1) [facility] Start: 08-08-2022 Lipid panel Lipid screen [place] Start: 08-08-2022 Lipid screen Lipid [place] Start: 11-04-2021 Creatinine measurement Creatinine mo nitoring [facility] Start: 11-04-2021 Potassium monitoring Potassium monit oring [facility] Start: 09-22-2021 End: 09-22-2021 Patient encounter procedure [facility] Start: 06-24-2021 Screening for malign ant neoplasm of colon [facility] Start: 06-16-2021 Influenza vaccination Flu vaccine (# 1) [facility] Work Phone: Start: 04-07-2021 End: 04-07-2021 Patient encounter procedure 04/07/2021 Office Visit Pulmonology Carolina Francois MD [address] [place] [address] [facility] Start: 02-23-2021 End: 02-23-2021 Office Visit 02/23/2021 Office Visit Pulmonology Carolina Francois MD [address] [place] [address] [facility] Pulmonology Start: 12-22-2020 COVID-19 Vaccine (2 of 2 - Moderna series) COVID-19 Vaccine (2 of 2 - Moderna series) [facility] Work Phone: Start: 06-16-2020 Influenza vaccination Flu vaccine (# 1) [place] Start: 10-20-2019 Annual Wellness Visi t (AWV) Annual Wellness Visit (AWV) [facility] Start: 06-16-2019 Influenza vaccination Flu vaccine (# 1) [place] Start: 2018 Pneumococcal 65+ yea rs Vaccine (1 of 2 - PCV13) Pneumococcal 65+ years Vaccine (1 of 2 - PCV13) [place] Start: 2018 Pneumococcal 65+ yea rs Vaccine (2 of 2 - PPSV23) Pneumococcal 65+ years Vaccine (2 of 2 - PPSV23) [place] Start: 08-08-2018 Lipid panel Lipid screen [facility] Start: 2013 RSV Immunization for Adults (1 - Risk 60-74 years 1-dose series) RSV Immunization for Adults (1 - Risk 60-74 years 1-dose series) [facility] Start: 2003 Colon cancer screen colonoscopy Colon cancer screen colonoscopy [place] Start: 2003 Screening for malign ant neoplasm of colon Colon cancer screen colonoscopy [place] Start: 2003 Shingles Vaccine (1 of 2) Sexton gles Vaccine (1 of 2) [facility] Start: 2003 Zoster Vaccines (1 of 2) Zoste r Vaccines (1 of 2) [facility] Start: 1998 Screening for malign ant neoplasm of colon Colon cancer screen colonoscopy [facility] Start: 1993 Diabetes screen Diabetes screen [facility] Start: 1971 Diabetes mellitus screening Diabetes Screening [facility] Start: 1971 Hepatitis C screening Hepatitis C Sc reening [facility] Start: 1968 HIV screen HIV screen [place], [place] Start: 1965 COVID-19 Vaccine (1) COVID-19 Vaccin e (1) [facility] Start: 1965 Depression Screening Depression Scre ening [facility] Start: 1953 Echocardiography Echocardiogram [facility] Start: 1953 Hepatitis C screen Hepatitis C scree [place] Start: 1953 Hepatitis C screening Hepatitis C sc reen [facility] Start: 1953 Lipid panel Lipid Panel [facility] Start: 1953 Screening for malign ant neoplasm of colon [facility] Basic metabolic 2000 panel Basic Metabolic Panel Lab Routine Daily until discontinued starting 11/03/2020, 2 completed [place] Comment on above: Daily until disconti nued starting 11/03/2020, 2 completed Calcium, Ionized Calcium, Ionize d Lab Routine Daily until discontinued starting 10/24/2020, 12 completed [place] Comment on above: Daily until disconti nued starting 10/24/2020, 12 completed CBC CBC Lab Routine Daily until discontinued starting 11/03/2020, 2 [facility] Comment on above: Daily until disconti nued starting 11/03/2020, 2 completed D-Dimer, Quantitative D-Dimer, Q uantitative Lab Routine Every MWF at 4 AM (BMT lab orders) until discontinued starting 11/04/2020, 1 completed [facility] Comment on above: Every MWF at 4 AM (B MT lab orders) until discontinued starting 11/04/2020, 1 completed EKG 12 Lead - Chest Pain EKG 12 Lead - Chest Pain ECG STAT 10/16/2020 8:11 AM EST [facility] Ferritin [Mass/Vol] Ferritin Lab Routine Every MWF at 4 AM (BMT lab orders) until discontinued starting 11/04/2020 [facility] Comment on above: Every MWF at 4 AM (B MT lab orders) until discontinued starting 11/04/2020 Hepatic Function Panel Hepatic F unction Panel Lab Routine Every MWF at 4 AM (BMT lab orders) until discontinued starting 11/04/2020 [facility] Comment on above: Every MWF at 4 AM (B MT lab orders) until discontinued starting 11/04/2020 Laceration Repair Laceration Rep air Procedures Routine 06/09/2025 3:45 PM EDT [facility] Work Phone: Magnesium [Mass/Vol] Magnesium L ab Routine Daily until discontinued starting 10/20/2020, 16 completed [facility] above: Daily until disconti nued starting 10/20/2020, 16 completed End: 08-28-2021 MRI LUMBAR SPINE WO [facility] Work Phone: Comment on above: Once for 1 Occurrenc es starting 08/28/2021 until 08/28/2021 Nebulizer therapy Nebulizer tx intermittent Respiratory Care Routine (respiratory use only) until discontinued starting 11/02/2020 [facility] Comment on above: (respirato ry use only) until discontinued starting 11/02/2020 Oxygen therapy [[facility] [place] Initiate Oxygen Therapy Protocol Respiratory Care Routine Daily until discontinued starting 10/20/2020 [facility] Comment on above: Daily until disconti nued starting 10/20/2020 Patient Education ED Fainting, V agal Reaction ED Fainting, Uncertain Cause [facility] Work Phone: Phosphate [Mass/Vol] Phosphorus Lab Routine Daily until discontinued starting 10/20/2020, 16 completed [place] Comment on above: Daily until disconti nued starting 10/20/2020, 16 completed Immunizations Immunization Date Immunization Notes Care Provider Sheri noonan 06-09-2025 tetanus toxoid, redu krys diphtheria toxoid, and acellular pertussis vaccine, adsorbed Marjorie Sears MD Work Phone: [facility] 08-23-2022 influenza virus vaccine, unspecified formulation [employer] DO Work Phone: [facility] 07-19-2021 influenza, injectabl e, quadrivalent, preservative free LAQUITA DING Work Phone: [facility] 12-25-2020 Moderna SARS-CoV-2 Vaccination [employer] DO Work Phone: [facility] 11-24-2020 Moderna SARS-CoV-2 Vaccination [employer] DO Work Phone: [facility] 08-06-2017 tetanus toxoid, redu krys diphtheria toxoid, and acellular pertussis vaccine, adsorbed Laquita Ding [facility] Work Phone: Payers Date Payer Category Payer Self-pay 2021 Medicare supplementa l policy (as second payer) [facility] [id number] 2020 Private Health Insurance Pending sale to [facility] [id number] 2019 Medicare MEDICARE RAILROA D MEDICARE xxxxxxxxxxx 2019-Present [phone] [place] [address] xxxxxxxxxxx [id number] 2019 Medicare RAILROAD MEDICAR E [id number] 2019 Medicare [id number] 2015 Unknown BCBS BCBS - [place] P PO xxxxxxxxxxxx 2015-Present [address] [place] [address] xxxxxxxxxxxx [id number] Unknown [id number] Unknown [id number] Unknown [id number] Social History Date Type Detail Facility Start: 09-12-2017 End: 07-04-2025 Tobacco smoking status [facility] End: 10-16-1982 History of tobacco use Current smoker [place], [place] Start: 09-12-2017 End: 05-21-2025 Cigarettes smoked current (pack per day) - Reported [place] Start: 09-12-2017 End: 06-09-2025 Alcohol intake Current non-drinker of alcohol (finding) [place], [place] Start: 1955 Sex Assigned At Not on file M Ages [place], [place] Start: 08-06-2017 End: 10-16-2020 Tobacco use and exposure Former user [place] End: 10-16-1981 History of tobacco use User of smokeless tobacco [place] Exposure to SARS-CoV -2 (event) Not sure [place] Start: 09-12-2017 End: 05-21-2025 Alcohol intake No [place] End: 10-16-1982 History of tobacco use Cigarette Smoker ams AG How often to you hav e a drink containing alcohol? Never [facility] How many standard drinks containing alcohol do you have on a typical day? Patient does not drink ams AG Start: 05-16-2022 Sex Male (finding) Antoine He alth Has the [employer] [place], oil, or water company threatened to shut off services in your home in past 12Mo No ams AG (I/We) worried lara lujan (my/our) food would run out before (I/we) got money to buy more. Never true ams AG Start: 1955 Sex Assigned At Male [facility] Medical Equipment Procedure Code Equipment Code Equipment [...] 06/09/20 3:04 PM EDT Taryn Moon, RN [facility] Mental Status Date Assessment Result Facility 07-04-2025 Cognitive function Level Of Consciousness Awake [facility] Work Phone: Clinical Notes 12-20-2024 to 08-13-2025 [...] pong ball) Protocols used: Boil (Skin Abscess)-ADULT-AH [facility] 08-13-2025 Miscellaneous Notes Formattin g of this [...] Boil (Skin Abscess)-ADULT- documented in this encounter [facility] 07-04-2025 Discharge [address] [facility] 06-09-2025 Hospital Discharge instructions Riley Carcamo DO [...] through Care Everywhere.Laceration Repair With Stitches ED (Chinese)documented in this encounter [facility] 06-09-2025 Note Procedure Laceration Repair Performed by: Riley Carcamo DO Authorized by: Marjorie Sears MD Consent: Consent obtained: Verbal Consent given by: Patient Risks, benefits, and alternatives were discussed: yes Risks discussed: Infection, pain and need for additional repair Warren protocol: Procedure explained and questions answered to [...] Tolerated Riley Carcamo DO Resident 06/09/25 1612 [facility] 06-09-2025 Emergency department Note EMERGENCY DEPARTMENT ENCOUNTER [...] PPE for the entirety of this encounter. [facility] Joseph Brown is a 69 y.o. male [...] SYSTEMS Pertinent Positive and Negatives listed in [facility] PAST MEDICAL HISTORY Medical History[1] SURGICAL HISTORY [...] Family History[3] SOCIAL HISTORY Social History[4] SCREENINGS [place] Coma Scale Best Eye Response: Spontaneous Best [...] 06/09/2025 4:09 PM EDT Emergency Department Encounter [facility] ED Patient: Joseph Brown : 1955 [...] for clarification.) Marjorie Sears MD Acute Care [facility] Marjorie Sears MD 06/09/25 1537 documented in this encounter [facility] 06-09-2025 Physician Emergency department Note EMERGENCY DEPARTMENT [...] Family History[3] SOCIAL HISTORY Social History[4] SCREENINGS [place] Coma Scale Best Eye Response: Spontaneous Best [...] Sears MD at 06/09/2025 4:09 PM EDT [facility] 06-09-2025 Physician Emergency department Note Emergency Department Encounter [facility] ED Patient: Joseph Brown : 1955 [...] [employer] Marjorie Sears MD 06/09/25 4986 [facility] Phone: 05-22-2025 Nurse Note Pt given and educated on discharge instructions. Pt and family have no questions at this time. IV removed. Pt discharged to private vehicle. [facility] 05-22-2025 Nurse Note Pt given and educated on discharge instructions. Pt and family have no questions at this time. IV removed. Pt discharged to private vehicle. documented in this encounter [facility] 05-22-2025 Note Hospitalist Discharg e Summary Joseph Brown : 1955 Admit date: 05/20/2025 Discharge date: 05/22/2025 Admitting Physician: José Antonio Woodruff MD Primary Care Physician: Laquita iDng DO Visit Status: Observation Code Status: Full [...] Narrative: [facility] 1955 [id number] Exam Date/Time: 05/21/2025 16:00 Procedure: MR HEAD [...] basilar and proximal posterior cerebral arteries. 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 [facility] 05-22-2025 Hospital course Narrative Hospitalist Discharge Summary [...] Narrative: [facility] Name[facility] 1955 [id number] Exam Date/Time: 05/21/2025 16:00 Procedure: MR HEAD [...] basilar and proximal posterior cerebral arteries. Right WOMEN'S STUDIES LECTURER derives major contribution from anterior circulation consistent [...] BROWN : 1955 [facility]#: [id number] Exam Date/Time: 05/21/2025 16:00 Procedure: MR NECK [...] basilar and proximal posterior cerebral arteries. Right WOMEN'S STUDIES LECTURER derives major contribution from anterior circulation consistent [...] BROWN : 1955 [facility]#: [id number] Exam Date/Time: 05/21/2025 16:00 Procedure: MR BRAIN [...] basilar and proximal posterior cerebral arteries. Right WOMEN'S STUDIES LECTURER derives major contribution from anterior circulation consistent [...] Narrative: Patient Name: [facility]PH [facility] 1955 [id number] Exam Date/Time: 05/21/2025 00:21 Procedure: CT HEAD [...] medications were sent to [facility]/pharmacy #[id number] - [facility] [address] [facility] [address] [phone] amoxicillin-clavulanate 875-125 MG tablet fluticasone 50 MCG/ACT nasal spray Recommended Follow-up: Laquita Ding DO [address] [facility] [address] [facility] [address] Schedule an appointment as soon as possible for a visit in 1 week(s) for medical follow up for hospital ENT Schedule an appointment as soon as possible for a visit in 1 week(s) for medical follow up for hospital Complexity of Follow up: [] Moderate Complexity: follow up within 7-14 calendar days (68230) [x] Severe Complexity: follow up within 7 calendar days (92139) Follow up Testing, Pending results or Referrals [...] MD Division of Hospitalist Medicine Inpatient Medical Services/[facility] 05/22/2025, 6:21 PM [1] Past Medical History: Diagnosis Date Arthritis SVT (supraventricular tachycardia) (HCC) Syncope documented in this encounter [facility] 05-22-2025 Note PROGRESS NOTE. NEURO LOGY Patient Name:Joseph Brown Patient : 1955 Acct: [id number] Date of Admission: 05/20/2025 Room/Bed: B4454/B4454 A [...] Weight: 106.6 kg General Physical Examination: [facility] lunch. HEENT:Normocephalic, atraumaticl CV: [...] CELL COUNT, GRA (more content not included)... [facility] 05-22-2025 History of Present illness Narrative PROGRESS NOTE. NEUROLOGY Patient Name:Joesph Brown Patient : 1955 Acct: [id number] Date of Admission: 05/20/2025 Room/Bed: [facility] A PCP: Laquita Ding DO Patient location [...] original note were not included. OCCUPATIONAL THERAPY [facility] Name/MRN: Joseph Brown ([id number]) Date: 05/22/2025 Therapy eval and treat orders received for if Elena < 100 and below baseline. Elena noted to be 100 this admission. Will discontinue orders at this time. Should pt demo a change in status, please reorder OT services. Mikie Chavira OT Images from the original note were not included. PHYSICAL THERAPY [facility] Name/MRN: Joseph Brown ([id number]) Date: 05/22/2025 Chart review completed, pt currently [...] original note were not included. OCCUPATIONAL THERAPY [facility] Name/MRN: Joseph Brown ([id number]) Date: 05/21/2025 Therapy eval and treat orders [...] original note were not included. PHYSICAL THERAPY [facility] Initial Evaluation Name/MRN: Joseph Brown ([id number]) Evaluation Date: 05/21/2025 Date of : 1955 Admission Date: 05/20/2025 11:16 PM Age: 69 y.o. Room/Bed: [facility] A Discharge Recommendation: Home independently Equipment Needed: [...] thrombosis) 09/22/2021 Chronic respiratory failure with hypoxia ([facility]) 11/24/2020 Acute deep vein thrombosis (DVT) of both lower extremities ([facility]) 11/04/2020 Essential hypertension 11/04/2020 Pneumonia due to COVID-19 virus 11/04/2020 BPH without obstruction/lower urinary tract symptoms 11/04/2020 SVT (supraventricular tachycardia) ([facility]) 11/04/2020 ARDS (adult respiratory distress syndrome) ([facility]) 10/24/2020 Syncope 09/12/2017 Epididymal cyst 01/25/2017 Medical [...] Responsibilities: Independent Receives Help From: None 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 [...] of Care supervision is transferred to a [facility] Therapy Services Physical Therapist. Goals and/or treatment plan was established in collaboration with patient/family/other representatives. [1] Past Medical History: Diagnosis Date Arthritis SVT (supraventricular tachycardia) (HCC) Syncope [2] Past Surgical History: Procedure Laterality Date AMPUTATION fingers CHOLECYSTECTOMY documented in this encounter [facility] 05-22-2025 Note Care Management Prog ress [...] spouse Barriers/Today we still Wait: Clinical stability, Sheet Metal Technician recommendations (Neuro) Length of Stay (Days): 0 GMLOS: No GMLOS Documented [facility] 05-22-2025 Progress note Formatting of t his [...] spouse Barriers/Today we still Wait: Clinical stability, Sheet Metal Technician recommendations (Neuro) Length of Stay (Days): 0 GMLOS: No GMLOS Documented [facility] 05-22-2025 Hospital Discharge instructions Seema Lizarraga RN [...] and the need for follow-up with a physician/GRANTS DIRECTOR/PA after discharge. Seema Lizarraga RN on 05/22/25 [...] through Care Everywhere.Vertigo (a Type of Dizziness) (Chinese)documented in this encounter [facility] 05-22-2025 Note Speech-Portrait Painter ology Patient passed the Nursing Swallowing Screening. As per stroke policy, no formal dysphagia evaluation is required. Completed speech orders. [facility] 05-21-2025 Consult note Formatting of th is note is different from the original. INITIAL CONSULT NOTE. NEUROLOGY Patient Name: Joseph Brown Patient : 1955 Acct: [id number] Date of Admission: 05/20/2025 Room/Bed: [facility] A PCP: Laquita Ding DO History of [...] hits bed +2 [] Some Effort Against [place] +2 [] No Effort Against [place] +3 [] No Movement +4 5B: Right Arm Motor [] Amputation/Joint Fusion 0 [x] No Drift for 10 Seconds 0 [] Drift, but doesn't hit bed +1 [] Drift, hits bed +2 [] Some Effort Against [place] +2 [] No Effort Against [place] +3 [] No Movement +4 6A: Left Leg Motor [] Amputation/Joint Fusion 0 [x] No Drift for 5 Seconds 0 [] Drift, but doesn't hit bed +1 [] Drift, hits bed +2 [] Some Effort Against [place] +2 [] No Effort Against [place] +3 [] No Movement +4 6B: Right Leg Motor [] Amputation/Joint Fusion 0 [x] No Drift for 5 Seconds 0 [] Drift, but doesn't hit bed +1 [] Drift, hits bed +2 [] Some Effort Against [place] +2 [] No Effort Against [place] +3 [] No Movement +4 7: Limb [...] 410 ms QTC Interval 422 ms P Webster 47 degrees QRS [place] 6 degrees T Wave [place] [address] Interval 128 ms CBC auto differential Collection [...] 66 ALT 18 AST 25 BILITOT 0.4 @[facility]RIEFLAB([facility]) ABGs:)No results for input(s): PH, PO2, PCO2, [...] to be involved in this patient's care. [facility] 05-21-2025 Consult note Formatting of th is note is different from the original. INITIAL CONSULT NOTE. NEUROLOGY Patient Name: Joseph Brown Patient : 1955 Acct: [id number] Date of Admission: 05/20/2025 Room/Bed: B4-454/B4-454 A [...] hits bed +2 [] Some Effort Against [place] +2 [] No Effort Against [place] +3 [] No Movement +4 5B: Right Arm Motor [] Amputation/Joint Fusion 0 [x] No Drift for 10 Seconds 0 [] Drift, but doesn't hit bed +1 [] Drift, hits bed +2 [] Some Effort Against [place] +2 [] No Effort Against [place] +3 [] No Movement +4 6A: Left Leg Motor [] Amputation/Joint Fusion 0 [x] No Drift for 5 Seconds 0 [] Drift, but doesn't hit bed +1 [] Drift, hits bed +2 [] Some Effort Against [place] +2 [] No Effort Against [place] +3 [] No Movement +4 6B: Right Leg Motor [] Amputation/Joint Fusion 0 [x] No Drift for 5 Seconds 0 [] Drift, but doesn't hit bed +1 [] Drift, hits bed +2 [] Some Effort Against [place] +2 [] No Effort Against [place] +3 [] No Movement +4 7: Limb [...] 410 ms QTC Interval 422 ms P [place] 47 degrees QRS [place] 6 degrees T Wave [place] [address] Interval 128 ms CBC auto differential Collection [...] 66 ALT 18 AST 25 BILITOT 0.4 @BRIEFLAB([facility]) ABGs:)No results for input(s): PH, PO2, PCO2, [...] tablet 40 mg, 40 mg, Oral, Daily, Juilan Marmolejo MD enoxaparin (Lovenox) syringe 40 mg, [...] this patient's care. documented in this encounter [facility] 05-21-2025 History and physical note Attending [...] Vital Signs Full code Inpatient consult to Neurology--[facility]; dizziness OT eval and treat [...] - DO NOT do CPR, intubation] [_] [DNR-QUEEN PRODUCER - Comfort care only] [_] DNR form [...] patient and/or family/surrogate. José Antonio Woodruff MD [facility] 05/21/2025, 9:12 PM [1] Past Medical History: [...] MD [5] No Known Allergies [facility] 05-21-2025 Note Attending History an d [...] 179 BMP: Rece (more content not included)... [facility] 05-21-2025 History and physical note Attending History [...] Vital Signs Full code Inpatient consult to Neurology--[facility]; dizziness OT eval and treat [...] - DO NOT do CPR, intubation] [_] [DNR-QUEEN PRODUCER - Comfort care only] [_] DNR form [...] patient and/or family/surrogate. José Antonio Woodruff MD [facility] 05/21/2025, 9:12 PM [1] Past Medical History: [...] No Known Allergies documented in this encounter [facility] 05-21-2025 Note PHYSICAL THERAPY [facility] Initial Evaluation Name/MRN: Joseph Brown ([id number]) Evaluation Date: 05/21/2025 Date of : 1955 [...] thrombosis) 09/22/2021 Chronic respiratory failure with hypoxia ([facility]) 11/24/2020 Acute deep vein thrombosis (DVT) of both lower extremities ([facility]) 11/04/2020 Essential hypertension 11/04/2020 Pneumonia due to COVID-19 virus 11/04/2020 BPH without obstruction/lower urinary tract symptoms 11/04/2020 SVT (supraventricular tachycardia) ([facility]) 11/04/2020 ARDS (adult respiratory distress syndrome) ([facility]) 10/24/2020 Syncope 09/12/2017 Epididymal cyst 01/25/2017 Medical [...] Responsibilities: Independent Receives Help From: None 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 [facility] 05-20-2025 Emergency department Note EMERGENCY DEPARTMENT ENCOUNTER [...] (25 mg IntraVENous Given 05/21/25 0123) SCREENINGS [place] Coma Scale Best Eye Response: Spontaneous Best Verbal Response: Oriented Best Motor Response: Follows commands [place] Coma Scale Score: 15 Patient in for [...] DO 05/21/25 0534 documented in this encounter [facility] 05-20-2025 Physician Emergency department Note EMERGENCY DEPARTMENT [...] use: No Jacoby Sanders DO 05/21/25 0534 [facility] 01-14-2025 Miscellaneous Notes Care Management Progress Note Short Medical why still here: Patient remains on 4S today for complaints of dizziness/KENT. Neurology consulted to see. CT head/MRI brain complete. No acute findings/no significant stenosis. CT head showed some nasal polyps/MRI some paranasal sinus disease/polyposis. EKG SR. Swallow eval passed. Patient independent Planned Discharge Disposition: Home with spouse Barriers/Today we still Wait: Clinical stability, Sheet Metal Technician recommendations (Neuro) Length of Stay (Days): 0 GMLOS: No GMLOS Documented documented in this encounter [facility] 12-20-2024 Note Sinus rhythm Abnormal R-wave progression, early transition Minimal ST depression, lateral leads Electronically Signed On 12-20-2024 15:38:23 EST by Cydney Cantu [facility] 12-20-2024 Note Sinus rhythm Abnormal R-wave progression, early transition Minimal ST depression, lateral leads Electronically Signed On 12-20-2024 15:38:23 EST by Cydney Cantu [facility] 12-20-2024 Note IMPRESSION: Sinus rhythm Abnormal R-wave progression, early transition Minimal ST depression, lateral leads Electronically Signed On 12-20-2024 15:38:23 EST by Cydney Cantu [facility] 12-20-2024 Hospital Discharge instructions Cydney Cantu DO - 12/20/2024 11:38 AM EST Antivert as needed for dizziness and Zofran for nausea. Can follow-up with ENT if you have persistent mild symptoms but if your symptoms are unable to be managed at home please return to the emergency department for reevaluation. The following attachments cannot be sent through Care Everywhere.Chronic Sinusitis (Chinese)Vertigo (a Type of Dizziness) Discharge Instructions (Chinese)documented in this encounter [facility] 12-20-2024 Emergency department Note EMERGENCY DEPARTMENT [...] Alcohol use: No Drug use: No SCREENINGS [place] Coma Scale Best Eye Response: Spontaneous Best Verbal Response: Oriented Best Motor Response: Follows commands [place] Coma Scale Score: 15 NIH Stroke Scale [...] Discharge 12/20/2024 11:36:08 AM PATIENT REFERRED TO: [facility] ENT [address] [facility] [address] DISCHARGE MEDICATIONS: New Prescriptions AMOXICILLIN [...] 3 weeks ago. documented in this encounter [facility] 12-20-2024 Emergency department Triage note Pt [...] 1 month ago and 3 weeks ago. [facility] 12-20-2024 Physician Emergency department Note EMERGENCY DEPARTMENT [...] Discharge 12/20/2024 11:36:08 AM PATIENT REFERRED TO: [facility] ENT [address] [facility] [address] DISCHARGE MEDICATIONS: New Prescriptions AMOXICILLIN [...] Medicine Provider Cydney Cantu DO 12/20/24 1139 [facility] Discharge summary Note Date/Time July 04, 2025 1:06pm [facility] Medical Records Department [address] [place] [address] Emergency Department Summary 07/04/25 MR#: [id number] Acct: [id number] Name: JOSEPH BROWN Rep #:[id number] : [...] 2 brief syncopal episodes that he had. [facility] Medical History Obstructive sleep apnea Left leg [...] 75.8 H Lymph % (Auto) 12.8 L [place] % (Auto) 10.0 Eos % (Auto) 0.7 Baso % (Auto) 0.2 Absolute Neuts (auto) 8.4 H Absolute Lymphs (auto) 1.41 Nucleated RBC % 0 Sodium 137 Potassium 4.1 Chloride 103 Carbon Dioxide 22.3 Anion Gap 12 BUN 13 Creatinine 0.84 Estim Creat Clear Calc 104.58 Est GFR (MDRD) Non-Af 93 BUN/Creatinine Ratio 15.8 Glucose 133 H Calcium 8.7 Management Discussion w/another healthcare provider: Sheet Metal Technician (Dr. Traore, otolaryngology) Discharge Plan Triage Chief [...] Drink plenty of oral fluids. Print Language: Chinese Disposition Disposition: Home, Self Care What to do if you have Problems For any increased pain, shortness of breath, bleeding, nausea or vomiting, chest pain, or any unexpected problems, contact your Primary Care Provider. Call [facility] ([phone]) or report to the closest Emergency Room. Call 911 if necessary. 07/04/25 1306 <Electronically signed by Lawrence Abad MD> Cosigner Signature (if applicable): CC: Dr. Sherice العلي MD ~ Signed [facility] Work Phone: Evaluation note* Diagnosis Pneumonia due to COVID-19 virus [facility]: [facility] note* Diagnosis Sinusitis, unspecified chronicity, unspecified location- Primary Vertigo Dizziness and giddiness [facility] Dizziness- Primary Dizziness and giddiness Dizziness Dizziness and giddiness [facility] Diagnosis Laceration of right thumb without foreign body without damage to nail, initial encounter- Primary [facility] assessment information availableW[facility] System Work Phone: Hospital Discharge instructionsAdditional Instructions Follow-up with Dr. Johnson as scheduled on Monday. Return to the emergency department with increasing fainting spells, new or worsening symptoms. Drink plenty of oral fluids.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 Yes July 04, 2025 9:53am Discharge Instructions [...] better: Rest Drink plenty of fluids Take cuyr-uej-ntwrotm cold and flu medications to reduce fever [...] COVID-19. These instructions are also available at: https://www.cdc.gov/coronavirus/2019-ncov/hcp/qmmtuxrg-vhamnky-pwttuy.html It has been determined that you do [...] possible, put on a facemask before [facility] arrive. Take care of your mental health You might be feeling anxious, afraid, lonely or uncertain. The following link has a guide with a list of helpful behavioral health resources and a few tips for taking care of your emotional health while you are quarantined: https://Gushcloud.[facility].gov/system/files/sbe92-5357.pdf Wear a face mask You should wear [...] clean your hands with an alcohol-based hand nursing staff development coordinator that contains 60 to 95% alcohol, covering [...] andwater. Monitor your symptoms Please contact the [facility] as soon as possible. Persons who are [...] mask before emergency medical services arrive. Visit: https://[facility].[place].gov For specific questions and answers about COVID-19, call the [facility] info line at 0-120 4-[facility] ( ) Discontinuing home isolation Patients with confirmed COVID-19 should remain under home isolation precautions until the risk of secondary transmission to others is thought to be low. The decision to discontinue home isolation precautions is made on a kryk-od-xtll basis, in consultation with health care providers, and state and local health departments. Recommended precautions for household members, intimate partners, and caregivers If you are providing care for a person infected or suspected to be infected with COVID-19, please note the following instructions, which are also available at: https://www.cdc.gov/coronavirus/2019-ncov/hcp/ewjdrlda-jtgherl-curtga.html How do I take care of someone [...] 20 seconds or use an alcohol-based hand nursing staff development coordinator that contains 60 to 95% alcohol, covering [...] with soap and water or alcohol-based hand nursing staff development coordinator. Next, remove and dispose of facemask, and immediately clean your hands again with soap and water or alcohol-based hand nursing staff development coordinator Avoid sharing household items with the patient. [...] soap and water or an alcohol-based hand nursing staff development coordinator) immediately after removing and throwing away your [...] soap and water or an alcohol-based hand nursing staff development coordinator) immediately after handling these items. Soap and [...] and water are not available, use hand nursing staff development coordinator Avoid touching your eyes, nose or mouth [...] Agent's Name Healthcare Agent's Phone Number 10/27/20 9086 No, patient does not have an advance directive for healthcare treatment 10/19/20 1134 Yes, patient has an advance directive for healthcare treatment Durable power of adult nurse practitioner for health care No, copy requested from family 10/19/20 0000 Healthcare power of adult nurse practitioner Katja Brown Admitting Physician: Jerardo Green MD PCP: LAQUITA DING DO Discharging Nurse: Discharging Hospital Unit/Room#: 157/1571 Discharging Unit Phone Number: Emergency Contact: Extended Emergency Contact Information Primary Emergency Contact: Katja Brown [facility] Relation: None Past Surgical History: Past Surgical History: Procedure Laterality Date AMPUTATION fingers CHOLECYSTECTOMY Immunization History: Immunization History Administered Date(s) Administered Tdap (Boostrix, Adacel) 08/06/2017 Active Problems: Patient Active Problem List Diagnosis Code Epididymal cyst N50.3 BPH without obstruction/lower urinary tract symptoms N40.0 Syncope R55 SVT (supraventricular tachycardia) ([facility]) I47.1 Pneumonia due to COVID-19 virus U07.1, J12.82 ARDS (adult respiratory distress syndrome) ([facility]) J80 Isolation/Infection: Isolation No Isolation Patient Infection [...] MENTAL STATUS:} IV Access: { MEERA IV ACCESS:432969196} Nursing Mobility/ADLs: Walking {CHP DME ADLs:717252856} Transfer {CHP DME ADLs:357088790} Bathing {CHP DME ADLs:088362976} Dressing {CHP DME ADLs:169333417} Toileting {CHP DME ADLs:330472235} Feeding {CHP DME ADLs:504410765} Bobbin Winder {P DME ADLs:376011586} Med Delivery { MEERA MED Delivery:876633522} Wound Care Documentation and Therapy: Elimination: Continence: Bowel: {YES / NO:} Bladder: {YES / NO:} Urinary Catheter: {Urinary Catheter:876694622} Colostomy/Ileostomy/Ileal Conduit: {YES / NO:} Date of Last BM: Intake/Output Summary (Last 24 hours) at 11/03/2020 1151 Last data filed at 11/03/2020 0739 Gross per 24 hour Intake 840 ml Output 1500 ml Net -660 ml I/O last 3 completed shifts: In: 1040 [P.O.:1040] Out: 1875 [Urine:1875] Safety Concerns: { MEERA Safety Concerns:086973286} Impairments/Disabilities: { MEERA Impairments/Disabilities:166713522} Nutrition Therapy: Current Nutrition Therapy: { MEERA Diet List:975929710} Routes of Feeding: {CHP DME Other Feedings:765324414} Liquids: {Railroad Repairer liquid thickness:37363} Daily Fluid Restriction: {CHP DME Yes amt example:708047458} Last Modified Barium Swallow with Video (Video Swallowing Test): {Done Not Done Date:} Treatments at the Time of Hospital Discharge: Respiratory Treatments: Oxygen Therapy: {Therapy; copd oxygen:13282} Ventilator: { CC Vent List:847844796} Rehab Therapies: {THERAPEUTIC INTERVENTION:2936261290} Weight Bearing Status/Restrictions: { CC Weight Bearin} Other Medical Equipment (for information only, NOT a DME order): {EQUIPMENT:684360362} Other Treatments: Patient's personal belongings (please select all that are sent with patient): {[facility] DME Belongings:389304375} RN SIGNATURE: {Esignature:250648174} CASE MANAGEMENT/SOCIAL WORK SECTION Inpatient Status Date: Readmission Risk Assessment Score: Readmission Risk Risk of Unplanned Readmission: 23 Discharging to Facility/ Agency Name: [facility] Address: [address] [place] [address] Dialysis Facility (if applicable) Name: Address: Dialysis Schedule: Phone: Fax: CURRENT COST OF BOTH ELIQUIS AND XARELTO IS $492. FAMILY WAS PROVIDED WITH FREE COPAY CARDS AND PATIENT ASSISTANCE APPLICATIONS. PER [facility] XARELTO MAY BE PREFERRED ANTICOAGULATION MEDICATION AND COST MAY DECREASE AFTER DEDUCTIBLE IS MET. Dulce Peres rn, cm Press Operator Assistant/Shank Maker signature: PHYSICIAN SECTION Prognosis: Good Condition at [...] Discharge Medications: Joseph Brown Home Medication Instructions LUPE:[id number] Printed on:11/04/20 4407 Medication Information apixaban (ELIQUIS) 5 MG TABS [...] Complexity: follow up within 7-14 calendar days (36671) [x] Severe Complexity: follow up within 7 calendar days (06075) Follow up Testing, Pending results or Referrals [...] PM This report was created using the Yelp Speaking voice- activated system. Despiteprompt dictation and careful editorial review, there may be subtle contextual errors in this report, due to misrecognition of the spoken word. documented in this encounter History of Present Illness * Hossein Desai RN - 11/04/2020 1:20 PM EST Report given to [facility] * Linda Acosta OTA - 11/04/2020 11:47 AM EST Occupational Therapy Facility/Department: [facility] 2E TELEMETRY Daily Treatment Note NAME: Joseph [...] 11:45 AM EST Speech Language Pathology Facility/Department: [facility] 2E TELEMETRY Dysphagia Treatment Note NAME: Joseph [...] minutes Time Session Ended: 1145 Linda Juarez M.A.[facility]/DIRECTOR OF USER EXPERIENCE Speech-Language Pathologist * Hossein Desai RN - 11/04/2020 11:28 AM EST Report called to select and spoke with attendance secretary. Nurse was unable to take report [...] 11/04/2020 10:10 AM EST Physical Therapy Facility/Department: [facility] 2E TELEMETRY Daily Treatment Note NAME: Joseph [...] Treatment Minutes: 23 Minutes(2 ther act) Ruchi Roegl PTA * Jenny Rees, NELI - FARM OR RANCH ANIMAL CARETAKER - 11/04/2020 8:49 AM EST [facility], Pulmonary Critical Care and Sleep Medicine [address] [place], [place] [id number] Patient - Joseph Brown, Age - 64 y.o. - 1955 Room Number - [phone] Consulting - Jerardo Green MD Primary Care Physician - LAQUITA DING, [id number] Date of Admission - 10/19/2020 8:50 AM [...] - CNP - 11/03/2020 10:56 AM EST [facility], Pulmonary Critical Care and Sleep Medicine [address] [place] [address] Patient - Joseph Brown, Age - 64 [...] shield Hospitalist Progress Note 11/03/2020 10:16 AM [phone]: Please page ms @ [phone] for patient care issues. [phone]: Please page [facility] night Hospitalist for any issues. Subjective: Admit [...] Services This report was created using the Yelp Speaking voice- activated system. Despiteprompt dictation and careful editorial review, there may be subtle contextual errors in this report, due to misrecognition of the spoken word. * Malorie Cho RD, LD - 11/02/2020 3:45 PM EST Comprehensive Nutrition Assessment Type and Reason for Visit: Reassess(pt extubated 10/31- to transfer to floor today) Nutrition Recommendations/Plan: 1)suggest to continue pureed diet as tolerated per DIRECTOR OF USER EXPERIENCE - speech now recommending dental soft - [...] assess Fluid Accumulation: No significant fluid accumulation Airframe Design Engineer Strength: Not Performed Estimated Daily Nutrient Needs: Energy (kcal): 1200- 1525; Weight Used for Energy Requirements: Current Protein (g): 81-115; Weight Used for Protein Requirements: Trimble(1-1.4) Fluid (ml/day): per md; Method Used for [...] Usual Body Weight: 240 lb (108.9 kg) Trimble Body Weight: 178 lbs; % Trimble Body Weight 135.3 % BMI: 32.7 Adjusted Body Weight: ; No Adjustment Adjusted BMI: BMI Categories: Obese Class 1 (BMI 30.0-34.9) Nutrition Diagnosis: Inadequate oral intake related to catabolic illness, other (comment), biting/chewing (masticatory) difficulty, swallowing difficulty(covid- weak) as evidenced by intake 0-25%, other (comment)(machining and assembly supervisor recommendations) Altered nutrition-related lab values related to [...] to determine Contact: [phone] * Linda Juarez, DIRECTOR OF USER EXPERIENCE - 11/02/2020 3:38 PM EST Speech Language [...] POC. 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 [employer] Leisure & Hobbies: na IADL Comments: na Additional Comments: [facility] [place] Cognition Cognition Overall Cognitive Status: WFL Objective [...] climbing 3-5 steps with a railing?: Total [facility] Inpatient Mobility Raw Score : 12 [facility] Inpatient T-Scale Score : 35.33 Mobility Inpatient CMS 0-100% Score: 68.66 Mobility Inpatient CMS G-Code Modifier : CL AM-PAC Score [facility] Inpatient Mobility Raw Score : 12 (11/02/201509) [facility] Inpatient T-Scale Score : 35.33 (11/02/201509) Mobility Inpatient CMS 0-100% Score: 68.66 (11/02/200) Mobility Inpatient CMS G-Code Modifier : CL (11/02/201509) Goals Short term goals Time Frame for Short term goals: 6 visits Short term goal 1: Pt will complete 1-2 sets/10 reps of LE exercises to improve LE strength Short term goal 2: Pt will complete supine<->sit at [facility] to improve bed mobility Short term goal 3: Pt will complete sit<->stand with [facility]WW at [facility] in preparation for mobility Short term goal [...] 5-6 lpm NC 2. Dysphagia but passed DIRECTOR OF USER EXPERIENCE -->puree, thin liq 3. Net NEG I/Os [...] Conjunctiva []Injected [x]Non-Injected Pinnae [x]Normal []Other Dentitian [][place]eth []Dentures Oral Mucosa [][place] []Moist []Dry Oral ETT []Present [x]Absent Neck: [...] [x]Absent CORDOVA ([x]RUE [x]RLE [x]LUE [x]LLE) Neurologic: CHILKOOT []Yes [x]No Corneal reflexes []Present []Absent Plantar [...] 14.5 ABGs: Recent Labs 10/31/20423 PHART 7.458* XRG3MNA 38.8 PO2ART 89.7 QFK2RNF 27.4* X6RMDAFM 97.4 FIO2A 40 CRP: Recent Labs 10/31/2033611/01/2025711/02/20317 [...] may need 0.45 NS low rate MIV -->DIRECTOR OF USER EXPERIENCE, dysphagia diet -->encouraged po -->not really eating much of pureed diet at all -->senokot-S, glycolax -->continue dulcolax supp q12 till (+) BM -->PPI -->d/c R IJ -->d/c nance -->may need bladder scan if low uop Dispo -->OK for tele (h/o SVT) Full Code Family Communication Number Called: [phone] Name of Designated Family Biology Lecturer: Katja Brown Relationship to Patient: spouse Phone Call Outcome: I spoke with the individual listed above. Family Biology Lecturer Updated on the Following: Improved TRANSFER CHECKLIST Transfer Med Reconciliation (resume home meds if able, convert to PO if able) Complete Antibiotics (name, indication, duration, convert to PO if able) None Steroid (indication, duration, convert to PO if able) Yes, addressed in today's progress note (decadron taper) Anticipated [place] Medications (ICU initiated) or Dose Changes and Indication No Permanently Discontinued Home Medications and Reason for medication contraindication No Nance Catheter (please remove if able) No Central Line (please remove if able) No Transfer Discussed with: Dr. Laird If additional questions for ICU team within 24 hours of ICU transfer, page [phone] for clarifications. * Susan Millard, OT - 11/01/2020 1:04 PM EST Occupational Therapy Facility/Department: [facility] ICU Daily Treatment Note NAME: Joseph Brown : 1955 Date of Service: 11/01/2020 Discharge Recommendations: (facility based therapy) OT Equipment Recommendations Equipment Needed: No Other: TBD Assessment Performance deficits / Impairments: Decreased functional mobility ;Decreased high-level IADLs;Decreased endurance;Decreased ADL status;Decreased balance;Decreased strength Assessment: Pt is a 64 yo male admitted to [facility] with acute hypoxic respiratory failure 2/2 COVID. [...] Minutes(TA-1) Susan Millard OT * Chela Xiao, DIRECTOR OF USER EXPERIENCE - 11/01/2020 11:46 AM EST Speech Language Pathology Facility/Department: [facility] ICU CLINICAL BEDSIDE SWALLOW EVALUATION NAME: Joseph Brown : 1955 ADMISSION DATE: 10/19/2020 ADMITTING DIAGNOSIS: has Epididymal cyst; BPH without obstruction/lower urinary tract symptoms; Syncope; SVT (supraventricular tachycardia) ([facility]); Pneumonia due to COVID-19 virus; and ARDS (adult respiratory distress syndrome) ([facility]) on their problem list. ONSET DATE: 10/20/20 [...] one diet consistency restricted Treatment Plan Requires DIRECTOR OF USER EXPERIENCE Intervention: Yes Duration/Frequency of Treatment: 3 visits [...] devices: Call light within reach Therapy Time DIRECTOR OF USER EXPERIENCE Individual Minutes Time In: 1118 Time Out: [...] Conjunctiva []Injected [x]Non-Injected Pinnae [x]Normal []Other Dentitian [x][place]eth []Dentures []Poor dentition []Edentulous Oral Mucosa [x][place] [x]Moist []Dry Oral ETT []Present [x]Absent Neck: [...] ([x]RUE [x]RLE [x]LUE [x]LLE) Generalized weakness Neurologic: CHILKOOT []Yes [x]No Corneal reflexes []Present []Absent Plantar [...] urinary tract symptoms Syncope SVT (supraventricular tachycardia) ([facility]) Pneumonia due to COVID-19 virus ARDS (adult respiratory distress syndrome) ([facility]) DEMETRIA ALFORD MD * Joel De León [...] Elliott RCP - 10/31/2020 9:32 AM EST [facility] Respiratory Care Department Progress Note Spontaneous [...] Conjunctiva []Injected [x]Non-Injected Pinnae [x]Normal []Other Dentitian [x][place]eth []Dentures []Poor dentition []Edentulous Oral Mucosa [x][place] []Moist []Dry Oral ETT [x]Present []Absent Neck: [...] sec CORDOVA ([x]RUE [x]RLE [x]LUE [x]LLE) Neurologic: CHILKOOT []Yes [x]No Corneal reflexes []Present []Absent Plantar [...] Recent Labs 10/31/20423 PHART 7.458* PO2ART 89.7 CSD0PPZ 38.8 ZUZ0ERC 27.4* BEART 3.4* I3OEMSJC 97.4 CBC: Recent Labs 10/30/2033710/31/20336 WBC 11.7* 9.7 HGB 10.9* 10.2* PLT 300 316 Cultures: No results found for: BC Lab Results Component Value Date RESPCULTURE Few normal respiratory yolanda. 10/24/2020 RESPCULTURE Streptococcus pneumoniae 10/24/2020 RESPCULTURE Moderate 10/24/2020 Films: CXR portable: Results for orders placed during the hospital encounter of 10/19/20 XR CHEST PORTABLE Narrative Patient Name: JOSEPH BROWN [facility]#: [id number] Diagnostic Radiology ACCESSION EXAM DATE/TIME PROCEDURE ORDERING PROVIDER [id number] 10/29/2020 05:58 EST CR Chest Portable AMARILIS LUKE, ABIEL Dunbar CPT code 35393 Reason For Exam (CR Chest Portable) pneumonia [...] urinary tract symptoms Syncope SVT (supraventricular tachycardia) ([facility]) Pneumonia due to COVID-19 virus ARDS (adult respiratory distress syndrome) ([facility]) Assessment and Plan: 1. Respiratory failure: Covid, [...] to preserve PPE for other caregivers, a vwyv-yw-zfit encounter with the patient was not performed. Estimated Daily Nutrient Needs: Energy (kcal): 1200- 1525; Weight Used for Energy Requirements: Current Protein (g): 81-115; Weight Used for Protein Requirements: Trimble(1-1.4) Fluid (ml/day): per md; Method Used for [...] Usual Body Weight: 240 lb (108.9 kg) Trimble Body Weight: 178 lbs; % Trimble Body Weight 134.8 % BMI: 32.5 Adjusted [...] Conjunctiva []Injected [x]Non-Injected Pinnae [x]Normal []Other Dentitian [x][place]eth []Dentures []Poor dentition []Edentulous Oral Mucosa [x][place] [x]Moist []Dry Oral ETT [x]Present []Absent Neck: [...] sec CORDOVA ([x]RUE [x]RLE [x]LUE [x]LLE) Neurologic: CHILKOOT []Yes [x]No Corneal reflexes []Present []Absent Plantar [...] Labs 10/30/20 0335 PHART 7.465* PO2ART 65.9* ZAI3XTY 38.4 CVP0NKH 27.6* BEART 3.7* I3VKBOTS 93.9* CBC: Recent Labs 10/29/20 0351 10/30/20 0338 WBC 10.4 11.7* HGB 10.7* 10.9* PLT 278 300 Films: CXR portable: Results for orders placed during the hospital encounter of 10/19/20 XR CHEST PORTABLE Narrative Patient Name: JOSEPH BROWN Diagnostic Radiology ACCESSION EXAM DATE/TIME PROCEDURE ORDERING PROVIDER [id number] 10/29/2020 05:58 EST CR Chest Portable AMARILIS LUKE JEFFREY A CPT code 17128 Reason For Exam (CR Chest Portable) pneumonia [...] 10/29/2020 9:10 AM EST Tiff Almaz ( Warp Splitter) and I spoke with dispatcher Jose Abbott regarding Echo ordered for patient. Patient COVID +. Contacted Dr. Dietrich who said did handheld beside Echo and Echo ordered was not needed. Per Dr. Dietrich ok to discontinue order. Jose Astorga - 10/29/2020 8:[address] Dietrich (VIA [employer] on 10.29.20) regarding ECHO order due to [...] Conjunctiva []Injected [x]Non-Injected Pinnae [x]Normal []Other Dentitian [x][place]eth []Dentures []Poor dentition []Edentulous Oral Mucosa [x][place] [x]Moist []Dry Oral ETT [x]Present []Absent Neck: [...] sec CORDOVA ([x]RUE [x]RLE [x]LUE [x]LLE) Neurologic: CHILKOOT []Yes [x]No Corneal reflexes []Present []Absent Plantar [...] Recent Labs 10/29/20355 PHART 7.449 PO2ART 69.0* XAS5LGE 39.1 BKM4RRB 27.1* BEART 2.9 F9XWBNFU 94.3* CBC: Recent Labs 10/28/2034910/29/20350 WBC 8.0 10.4 HGB 10.7* 10.7* PLT 235 278 PROCALCITONIN: Recent Labs 10/27/20331 PROCAL 0.17* Films: CXR portable: Results for orders placed during the hospital encounter of 10/19/20 XR CHEST PORTABLE Narrative Patient Name: JOSEPH BROWN Diagnostic Radiology ACCESSION EXAM DATE/TIME PROCEDURE ORDERING PROVIDER [id number] 10/29/2020 05:58 EST CR Chest Portable AMARILIS LUKE JEFFREY A CPT code 27010 Reason For Exam (CR Chest Portable) pneumonia [...] infiltrates are present. Report Dictated on Workstation: [facility] --- Final --- Dictating Physician: DO CID ALFRED Signed Date and Time: 10/29/2020 6:15 am Signed by: DO CID ALFRED Transcribed Date and Time: 10/29/2020 6:16 Problem list of patient: Patient Active Problem List Diagnosis Epididymal cyst BPH without obstruction/lower urinary tract symptoms Syncope SVT (supraventricular tachycardia) ([facility]) Pneumonia due to COVID-19 virus ARDS (adult respiratory distress syndrome) ([facility]) Assessment and Plan: 1. Respiratory Failure: Covid [...] Conjunctiva []Injected [x]Non-Injected Pinnae [x]Normal []Other Dentitian [x][place]eth []Dentures []Poor dentition []Edentulous Oral Mucosa [x][place] [x]Moist []Dry Oral ETT [x]Present []Absent Neck: [...] sec CORDOVA ([x]RUE [x]RLE [x]LUE [x]LLE) Neurologic: CHILKOOT []Yes [x]No Corneal reflexes []Present []Absent Plantar [...] Recent Labs 10/28/20352 PHART 7.455* PO2ART 66.3* VTY3FVA 38.5 ZYB1VXT 27.1* BEART 3.0 [id number] 93.8* CBC: Recent Labs 10/27/20 0332 10/28/20 0350 WBC 7.2 8.0 HGB 10.5* 10.7* PLT 245 235 PROCALCITONIN: Recent Labs 10/27/20331 PROCAL 0.17* Films: CXR portable: Results for orders placed during the hospital encounter of 10/19/20 XR CHEST PORTABLE Narrative Patient Name: JOSEPH BROWN Diagnostic Radiology ACCESSION EXAM DATE/TIME PROCEDURE ORDERING PROVIDER [id number] 10/27/2020 05:35 EST CR Chest Portable MD ALFORD JAMES A CPT code 37895 Reason For Exam (CR Chest Portable) pneumonia, [...] urinary tract symptoms Syncope SVT (supraventricular tachycardia) ([facility]) Pneumonia due to COVID-19 virus ARDS (adult respiratory distress syndrome) ([facility]) Assessment and Plan: 1. Respiratory Failure: Covid [...] assess Fluid Accumulation: No significant fluid accumulation Airframe Design Engineer Strength: Not Performed Estimated Daily Nutrient Needs: Energy (kcal): 1200- 1525; Weight Used for Energy Requirements: Current Protein (g): 81-115; Weight Used for Protein Requirements: Trimble(1-1.4) Fluid (ml/day): per md; Method Used for [...] Usual Body Weight: 240 lb (108.9 kg) Trimble Body Weight: 178 lbs; % Trimble Body Weight 134.8 % BMI: 32.5 Adjusted [...] Conjunctiva []Injected [x]Non-Injected Pinnae [x]Normal []Other Dentitian [x][place] []Dentures []Poor dentition []Edentulous Oral Mucosa [x][place] [x]Moist []Dry Oral ETT [x]Present []Absent Neck: [...] sec CORDOVA ([x]RUE [x]RLE [x]LUE [x]LLE) Neurologic: CHIL[place] []Yes [x]No Corneal reflexes []Present []Absent Plantar [...] Labs 10/27/20 0436 PHART 7.455* PO2ART 70.2* [id number] 39.5 XEK2VAD 27.7* BEART 3.6* [id number] 94.7* CBC: Recent Labs 10/26/20 0406 10/27/20 [...] Radiology ACCESSION EXAM DATE/TIME PROCEDURE ORDERING PROVIDER [id number] 10/27/2020 05:35 EST CR Chest Portable MD ALFORD JAMES A CPT code 88888 Reason For Exam (CR Chest Portable) pneumonia, [...] bilateral ill-defined infiltrates. Report Dictated on Workstation: [facility] --- Final --- Dictating Physician: DO CID ALFRED Signed Date and Time: 10/27/2020 4:45 am Signed by: DO CID ALFRED Transcribed Date and Time: 10/27/2020 5:35 Problem list of patient: Patient Active Problem List Diagnosis Epididymal cyst BPH without obstruction/lower urinary tract symptoms Syncope SVT (supraventricular tachycardia) ([facility]) Pneumonia due to COVID-19 virus ARDS (adult respiratory distress syndrome) ([facility]) Assessment and Plan: 1. Respiratory Failure: Covid, [...] Conjunctiva []Injected [x]Non-Injected Pinnae [x]Normal []Other Dentitian [x][place] []Dentures []Poor dentition []Edentulous Oral Mucosa [x][place] [x]Moist []Dry Oral ETT []Present [x]Absent Neck: [...] sec CORDOVA ([x]RUE [x]RLE [x]LUE [x]LLE) Neurologic: [place]IL[place]OT []Yes [x]No Corneal reflexes []Present []Absent Plantar [...] Labs 10/25/20 2327 PHART 7.493* PO2ART 66.0* [id number] 33.6* MKY3LIO 25.8* BEART 2.7 [id number] 94.5* CBC: Recent Labs 10/25/20 0430 10/26/20 [...] Radiology ACCESSION EXAM DATE/TIME PROCEDURE ORDERING PROVIDER [id number] 10/24/2020 05:26 EST CR Chest Portable ACIERNO, FARM OR RANCH ANIMAL CARETAKER, PILAR A CPT code 17334 Reason For Exam (CR Chest Portable) Line [...] urinary tract symptoms Syncope SVT (supraventricular tachycardia) ([facility]) Pneumonia due to COVID-19 virus ARDS (adult respiratory distress syndrome) ([facility]) Assessment and Plan: 1. Respiratory Failure: Covid [...] []Injected []Non-Injected / Pinnae []Normal []Other/ Dentitian [][place] []Dentures Oral Mucosa [][place] []Moist []Dry/ Oral ETT []Present []Absent Neck: [...] []Absent/ CORDOVA ([]RUE []RLE []LUE []LLE) Neurologic: [place]OT []Yes []No Corneal reflexes []Present []Absent / [...] CHEST PORTABLE Narrative [facility]: [id number] ACCESSION EXAM DATE/TIME PROCEDURE ORDERING PROVIDER [id number] 10/24/2020 05:26 EST CR Chest Portable ACMIRA, AMARILIS, PILAR A CPT code 16536 Reason For Exam (CR Chest Portable) Line [...] * RECOMMENDATIONS: I performed a bedside hand-held [id number] echocardiogram which showed normal RV and LV [...] []Injected [x]Non-Injected / Pinnae [x]Normal []Other/ Dentitian [x][place] []Dentures Oral Mucosa [x][place] [x]Moist []Dry/ Oral ETT [x]Present []Absent Neck: [...] Extremities: Cyanosis []Present [x]Absent/ No clubbing Neurologic: CHILKOOT []Yes []No Corneal reflexes []Present [x]Absent / [...] Radiology ACCESSION EXAM DATE/TIME PROCEDURE ORDERING PROVIDER [id number] 10/24/2020 05:26 EST CR Chest Portable ACIERNO, FARM OR RANCH ANIMAL CARETAKER, PILAR A CPT code 22232 Reason For Exam (CR Chest Portable) Line [...] []Injected [x]Non-Injected / Pinnae [x]Normal []Other/ Dentitian [][place] []Dentures Oral Mucosa [x][place] [x]Moist []Dry/ Oral ETT [x]Present []Absent Neck: [...] [x]Absent/ CORDOVA ([x]RUE [x]RLE [x]LUE [x]LLE) Neurologic: CHIL[place]OT []Yes [x]No Corneal reflexes []Present []Absent / [...] CHEST PORTABLE Narrative [facility]: [id number] Radiology ACCESSION EXAM DATE/TIME PROCEDURE ORDERING PROVIDER [id number] 10/19/2020 09:34 EST CR Chest Portable [id number] -CANDELARIO LOMELI CPT code 75565 Reason For Exam (CR Chest Portable) COVID [...] assess Fluid Accumulation: No significant fluid accumulation Airframe Design Engineer Strength: Not Performed Estimated Daily Nutrient Needs: Energy (kcal): 4306-6688; Weight Used for Energy Requirements: Current Protein (g): 81-115; Weight Used for Protein Requirements: Trimble Fluid (ml/day): ; Method Used for Fluid Requirements: 1 ml/kcal Nutrition Related Findings: no edema, strong underbaster, 10/13 bm -ongoing nausea,alb 3.1, glu 161, vit d23, d- dimer 35.2,ferritin 552, neg 1.5 liters Wounds: None(db 19) Current Nutrition Therapies: DIET GENERAL; Dietary Nutrition Supplements: Clear Liquid Oral Supplement Anthropometric Measures: Height: 6' (182.9 cm) Current Body Weight: 240 lb (108.9 kg) Admission Body Weight: Usual Body Weight: 240 lb (108.9 kg) Trimble Body Weight: 178 lbs; % Trimble Body Weight 134.8 % BMI: 32.5 Adjusted [...] []Injected [x]Non-Injected / Pinnae [x]Normal []Other/ Dentitian [][place] []Dentures Oral Mucosa [x][place] [x]Moist []Dry/ Oral ETT []Present [x]Absent Neck: [...] [x]Absent/ CORDOVA ([x]RUE [x]RLE [x]LUE [x]LLE) Neurologic: CHIL[place]OT []Yes [x]No Corneal reflexes []Present []Absent / [...] Radiology ACCESSION EXAM DATE/TIME PROCEDURE ORDERING PROVIDER [id number] 10/19/2020 09:34 EST CR Chest Portable [id number] -CANDELARIO LOMELI CPT code 92796 Reason For Exam (CR Chest Portable) COVID [...] []Injected [x]Non-Injected / Pinnae [x]Normal []Other/ Dentitian [][place] []Dentures Oral Mucosa [x][place] [x]Moist []Dry/ Oral ETT []Present [x]Absent Neck: [...] [x]Absent/ CORDOVA ([x]RUE [x]RLE [x]LUE [x]LLE) Neurologic: [place]IL[place] []Yes [x]No Corneal reflexes []Present []Absent / [...] CHEST PORTABLE Narrative [facility]: [id number] Radiology ACCESSION EXAM DATE/TIME PROCEDURE ORDERING PROVIDER [id number] 10/19/2020 09:34 EST CR Chest Portable [id number] -CANDELARIO LOMELI CPT code 72994 Reason For Exam (CR Chest Portable) COVID [...] assess Fluid Accumulation: No significant fluid accumulation Airframe Design Engineer Strength: Not Performed Estimated Daily Nutrient Needs: Energy (kcal): 4900-0423; Weight Used for Energy Requirements: Current Protein (g): 81-115; Weight Used for Protein Requirements: Trimble Fluid (ml/day): ; Method Used for Fluid Requirements: 1 ml/kcal Nutrition Related Findings: Nausea; hyperactive BS; no edema; skin WDL Wounds: None Current Nutrition Therapies: DIET CLEAR LIQUID; Anthropometric Measures: Height: 6' (182.9 cm) Current Body Weight: 240 lb (108.9 kg) Admission Body Weight: Usual Body Weight: 240 lb (108.9 kg) Trimble Body Weight: 178 lbs; % Trimble Body Weight 134.8 % BMI: 32.5 Adjusted [...] Pelaez MD - 10/19/2020 10:52 AM EST [facility] - Infectious Diseases Attending COVID-19 Therapeutic Progress [...] to preserve PPE for other caregivers, a [id number] encounter with the patient was not performed. [...] plan. Jerardo Pelaez MD, FACP, FIDSA P [phone] documented in this encounter Reason for Referral Status Reason Specialty Diagnoses / Procedures Referre d By Contact Referred To Contact Closed Cardiology Diagnoses SVT (supraventricular tachycardia) (HCC) Procedures ECHO Complete 2D W Doppler W Color Venkat Grant MD [address] [address] Summary Purpose Family History No Family History [...] Diagnoses Dizziness Procedures r42 Julian Marmolejo MD [address] [place] [address] Phone: tel: fax: [facility] Surgical [facility] [address] [place] [address] Phone: tel: Referral ID Status Reason Start [...] Care Teams (unrecognized sec tion and content) Special Machine Stitcher Relationship Specialty Start Date End Date Laquita Ding, [address] [facility] [place] [address] PCP - General 06/04/19 Special Machine Stitcher Relationship Specialty Start Date End Date Laquita Ding DO [address] [facility] [address] [place] [id number] PCP - General 03/16/20 Special Machine Stitcher Relationship Specialty Start Date End Date Laquita Ding DO PCP - General 03/16/20 Special Machine Stitcher Relationship Specialty Start Date End Date Laquita Ding DO PCP - General 03/16/20 Special Machine Stitcher Relationship Specialty Start Date End Date Laquita [...] July 04, 2025 End: July 04, 2025 Special Machine Stitcher Relationship Specialty Start Date End Date Laquita Ding DO PCP - General 03/16/20 (unrecognized sect ion and content) No Status Records FoundNo Status Records FoundNo Status Records FoundNo Status Records FoundNo Status Records Found INFORMATION SOURCE (unrecogn ized section and content) DATE CREATED AUTHOR 09/01/2021 [facility] DATE CREATED AUTHOR AUTHOR'S ORGANIZ ATION 11/10/2021 [facility] [employer] [facility] DATE CREATED AUTHOR AUTHOR'S ORGANIZ ATION 06/22/2025 [facility] DATE CREATED AUTHOR AUTHOR'S ORGANIZ ATION 07/11/2025 [facility] DATE CREATED AUTHOR AUTHOR'S ORGANIZ ATION 08/15/2025 [facility] [employer] [facility] Scheduled Active and Recently Administ ered [...] BE BASED ON THE PRIMARY CLINICAL RECORDS. [employer] provides no warranty or guarantee of the accuracy or completeness of information in this document.
--- NOTE | 2025-08-16 15:52 | PCM.HP.STD ---
HPI - General General Date of Admission: 08/16/25 HPI Narrative KALYN BROWN, is a 69 M who presents to the hospital with concerns for a left buttock abscess. He had gone to an urgent care last week where they did an aspiration and put him on antibiotics. He took approximately a day or 2 of antibiotics before coming into the hospital today. CT scan is negative for organized abscess but does show cellulitis, in the ER he had a little bit of an I&D that drained a little bit of purulent fluid. This was sent off for culture. He was started on Unasyn. No signs of sepsis he does have a leukocytosis but no fever. No decreased mobility or pain in his hip and based on imaging there is no extension of the infection. [facility] Medical History Obstructive sleep apnea Physical debility Left leg paresthesias Chronic back pain Radicular pain of left lower extremity Radicular pain of right lower extremity Osteoarthritis (arthritis due to wear and tear of joints) COVID-19 virus infection Lumbar stenosis Wears glasses History of steroid therapy Injury of back Former smoker On home oxygen therapy Shortness of breath on exertion History of pain when walking History of stress test Home Medications ?Medication ?Instructions ?Recorded ?Last Taken ?Type atorvastatin 40 mg tablet 40 mg PO QHS CHOLESTEROL 11/11/21 11/29/21 History acetaminophen 500 mg tablet 1,000 mg (2 x 500 mg) PO Q8 PRN 12/07/21 Unknown Rx fever or pain #0 tabs meloxicam 15 mg tablet 15 mg PO DAILY 07/04/25 Unknown History amoxicillin 875 mg-potassium 1 tab PO BID 08/16/25 Unknown History clavulanate 125 mg tablet magnesium 250 mg tablet 500 mg PO DAILY 08/16/25 Unknown History Allergy/AdvReac Type Severity Reaction Status Date / Time No Known Allergies Allergy Verified 08/16/25 12:38 Family History Mother CAD (coronary artery disease) Arthritis Surgical History Hx of colonoscopy Hx of cholecystectomy Hx of arthroscopy of left knee History of amputation of finger of right hand Social History adopted: No household members: spouse number of children: 2 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 Smoking Status: Former smoker how long ago did patient quit smoking: He quit smoking in 1982 alcohol intake: never details: quit alcohol in 1982 substance use type: does not use ROS Constitutional Constitutional: Denies chills, fatigue, fever(s) or malaise Eyes Eyes: Denies blurry vision ENT HEENT: Denies headache(s) or nasal discharge Cardiovascular Cardiovascular: Denies chest pain, dyspnea on exertion or syncope Respiratory/Chest Respiratory/Chest: Denies cough, shortness of breath at rest or shortness of breath with exertion Gastrointestinal Gastrointestinal: Denies constipation, diarrhea, nausea or vomiting Genitourinary Genitourinary: Denies dysuria Integumentary Integumentary: Reports rash Neurologic Neurologic: Denies focal weakness, numbness or tremor(s) Psychiatric Psychiatric: Denies anxiety or depression Vital Signs Vital Signs Vital Signs: 08/16/25 12:38 08/16/25 12:44 08/16/25 14:00 Temperature 99.1 F 99.1 F 98.6 F Temperature Source Oral Oral Oral Pulse Rate 102 H 102 H 77 Respiratory Rate 22 H 22 H 22 H Blood Pressure 127/74 H 127/74 H 128/62 H Blood Pressure Mean 91 91 84 Pulse Ox 100 100 99 Oxygen Delivery Method Room Air Room Air Room Air 08/16/25 14:37 08/16/25 14:48 Temperature 98.4 F Temperature Source Pulse Rate 84 84 Respiratory Rate 22 H 30 H Blood Pressure 112/60 112/60 Blood Pressure Mean 77 77 Pulse Ox 100 100 Oxygen Delivery Method Room Air Weight Weight: 246 lb 3.2 oz Body Mass Index (BMI) 33.3 Physical Exam Narrative General: Alert, Oriented x3, Cooperative, No apparent distress HEENT: Atraumatic, PERRLA, EOMI, Normocephalic Oral: Moist Mucosa Neck: Supple, No JVD Lungs: Clear to auscultation, Normal air movement, No rhonchi, No wheeze, No rales Cardiovascular: Regular rate, Regular Rhythm, Normal S1, Normal S2, No murmurs Abdomen: Soft, Non Tender, Non-Distended, No Hepato-splenomegaly Extremities: No edema, Capillary Refill Less than 3 Seconds Skin: Left buttock redness and erythema without fluctuance. There is an area of packing Musculoskeletal: No Tenderness to Palpation of Joints or Extremities Neurological: No focal neurological deficits, Motor Exam 5/5 strength throughout, Sensory exam intact to light touch and pain Psych/Mental Status: Normal Affect, Appropriate Results Lab / Micro Data 08/16/25 13:30 08/16/25 13:30 Labs: Laboratory Results - last 24 hr 08/16/25 13:30: WBC 14.6 H, RBC 4.38 L, Hgb 13.3, Hct 40.0, MCV 91.3, MCH 30.4, MCHC 33.3, RDW Std Deviation 46.3 H, RDW Coeff of Pancho 13.6, Plt Count 239, MPV 9.9, Immature Gran % (Auto) 0.400, Neut % (Auto) 74.8 H, Lymph % (Auto) 13.2 L, [place] % (Auto) 10.1 H, Eos % (Auto) 1.2, Baso % (Auto) 0.3, Absolute Neuts (auto) 10.9 H, Absolute Lymphs (auto) 1.93, Nucleated RBC % 0, Sodium 137, Potassium 4.1, Chloride 105, Carbon Dioxide 22.2, Anion Gap 11, BUN 22 H, Creatinine 1.19, Estim Creat Clear Calc 73.47, Est GFR (MDRD) Non-Af 65, BUN/Creatinine Ratio 18.8, Glucose 100 H, Calcium 8.8 Imaging Radiology Impression Pelvis CT 08/16/25 13:48 IMPRESSION: 1. Skin thickening, infiltration of the subcutaneous soft tissues overlying the left buttock. No abscess. Consider cellulitis. Reading Location: [id number] Assessment & Plan Assessment/Plan (1) Cellulitis of left buttock: PLAN: Plan 1. Left buttock cellulitis ? Since he is in the hospital continue with IV Unasyn ? He has packing in place ? Wound cultures are pending ? Imaging is of no significant concern as there is no obvious superficial or deep abscess 2. Hyperlipidemia ? Stable ? Continue with his Lipitor DVT: Ambulation 55 minutes was spent on direct patient care, including documentation as well as chart review and collaboration with colleagues Charges/Coding Visit Charges Inpatient E&M: 73643 Init Hosp L2
[2025-08-16] MEDS: 0.9% Normal Saline (250mL Bag) 250 ML 15 ML IV (21:16)
[2025-08-16] MEDS: 0.9% Saline Lock 10 ML Syringe IV (21:16)
[2025-08-17 03:03] VITALS: BP 111/75; PULSE 83; RESP 18; TEMP 36.7; O2SAT 98
[2025-08-17 05:52] LABS: Hematocrit 36.6 % (40-54); Hemoglobin 12.4 g/dL (13.0-16.5); Immature Granulocytes Count 0.060 X10^3/uL (0.0-0.0); Mean Corp Hgb Conc 33.9 g/dL (32-36); Mean Corpuscular Volume 91.5 fL (80-94); Mean Platelet Vol. 10.1 fl (6.2-12.0); NRBC Flagged by Analyzer 0 % (0-5); Platelet Count 236 K/mm3 (150-450); RBC Distribution Width CV 13.5 % (11.6-14.6); RBC Distribution Width SD 46.1 fl (35.1-43.9); Red Blood Count 4.00 M/mm3 (4.6-6.2); White Blood Count 12.7 K/mm3 (4.4-11.0)
[2025-08-17] MEDS: Ampicillin/Sulbactam 3 GM in 0.9% Normal Saline (100mL MB+) 100 ML IV ×2 (05:53→14:32)
[2025-08-17 06:15] LABS: Anion Gap 10 (5-15); BUN 17 mg/dL (4-19); BUN/Creat Ratio 20.0 RATIO (10-20); Calcium,Total 8.4 mg/dL (7.6-11.0); Carbon Dioxide 21.9 mmol/L (21.0-32.0); Chloride 105 mmol/L (98-108); Estimated Creatinine Clearance 103.13 ml/min (50-250); Glucose 107 mg/dL (70-99); Potassium 4.2 mmol/L (3.3-5.1)
[2025-08-17 09:00] VITALS: BP 123/81; PULSE 71; RESP 18; TEMP 36.6; O2SAT 99
--- NOTE | 2025-08-17 09:15 | PCM.PN.HOSP ---
Subjective Subjective Doing well, leukocytosis is improving and he is afebrile Objective Data Objective Data Vital Signs: Vital Signs Temp Pulse Resp BP Pulse Ox O2 Del Method 98.1 F 83 18 111/75 98 Room Air 08/17/25 03:03 08/17/25 03:03 08/17/25 03:03 08/17/25 03:03 08/17/25 03:03 08/17/25 03:03 Oxygen Delivery Method Room Air Weight: 241 lb 10.026 oz Body Mass Index (BMI) 32.8 Intake & Output: Intake and Output for Last 24 Hours 08/16/25 08/17/25 08/18/25 03:59 02:59 03:59 Intake Total 1500 / 1500 400 / 400 Balance 1500 / 1500 400 / 400 Lab / Micro Data 08/17/25 05:12 08/17/25 05:12 Labs: Laboratory Results - last 24 hr 08/16/25 13:30: WBC 14.6 H, RBC 4.38 L, Hgb 13.3, Hct 40.0, MCV 91.3, MCH 30.4, MCHC 33.3, RDW Std Deviation 46.3 H, RDW Coeff of Pancho 13.6, Plt Count 239, MPV 9.9, Immature Gran % (Auto) 0.400, Neut % (Auto) 74.8 H, Lymph % (Auto) 13.2 L, [place] % (Auto) 10.1 H, Eos % (Auto) 1.2, Baso % (Auto) 0.3, Absolute Neuts (auto) 10.9 H, Absolute Lymphs (auto) 1.93, Nucleated RBC % 0, Sodium 137, Potassium 4.1, Chloride 105, Carbon Dioxide 22.2, Anion Gap 11, BUN 22 H, Creatinine 1.19, Estim Creat Clear Calc 73.47, Est GFR (MDRD) Non-Af 65, BUN/Creatinine Ratio 18.8, Glucose 100 H, Calcium 8.8 08/17/25 05:12: WBC 12.7 H, RBC 4.00 L, Hgb 12.4 L, Hct 36.6 L, MCV 91.5, MCH 31.0, MCHC 33.9, RDW Std Deviation 46.1 H, RDW Coeff of Pancho 13.5, Plt Count 236, MPV 10.1, Immature Gran % (Auto) 0.500, Neut % (Auto) 71.4 H, Lymph % (Auto) 16.5 L, [place] % (Auto) 8.9, Eos % (Auto) 2.5, Baso % (Auto) 0.2, Absolute Neuts (auto) 9.0 H, Absolute Lymphs (auto) 2.09, Nucleated RBC % 0, Sodium 136, Potassium 4.2, Chloride 105, Carbon Dioxide 21.9, Anion Gap 10, BUN 17, Creatinine 0.84, Estim Creat Clear Calc 103.13, Est GFR (MDRD) Non-Af 93, BUN/Creatinine Ratio 20.0, Glucose 107 H, Calcium 8.4 Radiography Diagnostic Testing: Radiology Impression Pelvis CT 08/16/25 13:48 IMPRESSION: 1. Skin thickening, infiltration of the subcutaneous soft tissues overlying the left buttock. No abscess. Consider cellulitis. Reading Location: [facility] Physical Exam Narrative General: Alert, Oriented x3, Cooperative, No apparent distress HEENT: Atraumatic, PERRLA, EOMI, Normocephalic Oral: Moist Mucosa Neck: Supple, No JVD Lungs: Clear to auscultation, Normal air movement, No rhonchi, No wheeze, No rales Cardiovascular: Regular rate, Regular Rhythm, Normal S1, Normal S2, No murmurs Abdomen: Soft, Non Tender, Non-Distended, No Hepato-splenomegaly Extremities: No edema, Capillary Refill Less than 3 Seconds Skin: Left buttock redness and erythema without fluctuance. There is an area of packing, there is some seepage through the dressing Musculoskeletal: No Tenderness to Palpation of Joints or Extremities Neurological: No focal neurological deficits, Motor Exam 5/5 strength throughout, Sensory exam intact to light touch and pain Psych/Mental Status: Normal Affect, Appropriate Assessment & Plan Assessment/Plan (1) Cellulitis of left buttock: PLAN: Plan 1. Left buttock cellulitis ? Since he is in the hospital continue with IV Unasyn ? He has packing in place ? Wound cultures are pending ? Imaging is of no significant concern as there is no obvious superficial or deep abscess 2. Hyperlipidemia ? Stable ? Continue with his Lipitor DVT: Ambulation Charges/Coding Visit Charges Inpatient E&M: 37477 Subs Hosp L2
[2025-08-17] MEDS: 0.9% Saline Lock 10 ML Syringe IV ×2 (14:32→21:18)
[2025-08-17 15:00] VITALS: BP 130/75; PULSE 75; RESP 18; TEMP 36.6; O2SAT 99
[2025-08-17 21:08] VITALS: BP 109/59; PULSE 78; RESP 18; TEMP 36.4; O2SAT 99
[2025-08-18 02:48] VITALS: BP 105/61; PULSE 79; RESP 18; TEMP 37; O2SAT 100
[2025-08-18 05:21] VITALS: BP 125/85; PULSE 86; RESP 20; TEMP 36.9; O2SAT 95
[2025-08-18 06:08] LABS: Hematocrit 37.8 % (40-54); Hemoglobin 12.6 g/dL (13.0-16.5); Immature Granulocytes Count 0.030 X10^3/uL (0.0-0.0); Mean Corp Hgb Conc 33.3 g/dL (32-36); Mean Corpuscular Volume 91.1 fL (80-94); Mean Platelet Vol. 10.2 fl (6.2-12.0); NRBC Flagged by Analyzer 0 % (0-5); Platelet Count 262 K/mm3 (150-450); RBC Distribution Width CV 13.4 % (11.6-14.6); RBC Distribution Width SD 44.9 fl (35.1-43.9); Red Blood Count 4.15 M/mm3 (4.6-6.2); White Blood Count 9.2 K/mm3 (4.4-11.0)
[2025-08-18 07:48] VITALS: BP 115/91; PULSE 94; RESP 18; TEMP 36.3; O2SAT 99
--- NOTE | 2025-08-18 08:58 | DCINST_ITS ---
Discharge Instructions DC O2, CPAP, BIPAP needs Home O2 Discharge instructions: No Dressing / Incision Discharge Activity: Return to Normal Activity Dressing / Incision Call your doctor if you observe: Fever of 101 or Higher, Shortness of breath, Dizziness, Fainting spells, Swelling in the ankles, Chest pain and Increased palpitations (irregular heartbeat) Follow Up Care Test Results: Test results from this visit will be discussed in further detail at your follow- up appointment, if applicable. Discharge Plan Admission Admit Date/Time: 08/16/25 14:40 Attending Provider: Alexys Shahid Primary Care Provider: Sherice العلي Discharge Orders/Prescriptions Prescriptions: New doxycycline monohydrate 100 mg Capsule 100 mg PO BID 7 Days Qty: 14 0RF cephalexin 500 mg Capsule 500 mg PO Q8 7 Days Qty: 21 0RF Continued atorvastatin 40 mg Tablet 40 mg PO QHS acetaminophen 500 mg Tablet 1,000 mg PO Q8 PRN (Reason: fever or pain) Qty: 0 0RF Rx Instructions: You have been taking this every 8 hours while in rehab. I would continue the every 8 hours for a week and then you can try using it every 6-8 hours as needed for pain. magnesium 250 mg tablet 500 mg PO DAILY meloxicam 15 mg tablet 15 mg PO DAILY Discontinued amoxicillin-pot clavulanate 875-125 mg tablet 1 tab PO BID Referrals / Follow Up: Sherice العلي MD [Primary Care Provider, Medical] - Within 1 Week Disposition Disposition (needs filled in before D/C Order can be placed): Home, Self Care
--- NOTE | 2025-08-18 09:53 | CASEMGMT ---
STRANGE Met with patient to complete STRANGE form. STRANGE form and its content were verbally explained and patient's questions were answered to the best of my ability.? Patient voiced understanding and signed STRANGE form.? Patient provided a copy of signed STRANGE form and original placed in patient's chart.? Patient had no further questions. [place], Discharge Planning Asst
--- NOTE | 2025-08-18 11:25 | DS.PCM_ITS ---
Providers Date of Admission: 08/16/25 Primary Care Physician: Dr. Sherice العلي MD Reason For Visit: CELLULITIS Diagnosis Discharge Diagnosis (1) Cellulitis of left buttock: Status: Acute Code(s): L03.317 - Cellulitis of buttock Medications at Discharge Home Medications atorvastatin 40 mg tablet 40 mg PO QHS CHOLESTEROL 11/11/21 acetaminophen 500 mg tablet 1,000 mg (2 x 500 mg) PO Q8 PRN fever or pain #0 tabs 12/07/21 meloxicam 15 mg tablet 15 mg PO DAILY 07/04/25 magnesium 250 mg tablet 500 mg PO DAILY 08/16/25 cephalexin 500 mg capsule 500 mg PO Q8 7 days #21 caps 08/18/25 doxycycline monohydrate 100 mg capsule 100 mg PO BID 7 days #14 caps 08/18/25 Hospital Course Operations None Procedures None Summary of Care Provided Minutes Spent on Discharge: 35 Hospital Course: Per HPI: KALYN BROWN, is a 69 M who presents to the hospital with concerns for a left buttock abscess. He had gone to an urgent care last week where they did an aspiration and put him on antibiotics. He took approximately a day or 2 of antibiotics before coming into the hospital today. CT scan is negative for organized abscess but does show cellulitis, in the ER he had a little bit of an I&D that drained a little bit of purulent fluid. This was sent off for culture. He was started on Unasyn. No signs of sepsis he does have a leukocytosis but no fever. No decreased mobility or pain in his hip and based on imaging there is no extension of the infection. Hospital Course: 1. Left buttock cellulitis secondary to MRSA?69-year-old male presented to the hospital with an abscess that had a fine-needle aspiration done at an urgent care and was placed on Augmentin. He took approximately 2 days worth of antibiotics and then presented back to the hospital because of pain and redness. His white count was 14 and he was started on Unasyn. He did have improvement in his white count and cultures ultimately demonstrated MRSA infection. He was transition to p.o. doxycycline which is sensitive to but he is going to [place] on Monday so given the extent of cellulitis I also decided to cover him with Keflex to complete 7 days of treatment. His Keflex dosing is 500 mg p.o. 3 times daily and is doxycycline 100 mg p.o. twice daily. His packing was removed and he was instructed on dressing changes. I discussed with him the plan for discharge and he expressed understanding of the risks and benefits of going home and would like to go home today. Physical Exam Narrative General: Alert, Oriented x3, Cooperative, No apparent distress HEENT: Atraumatic, PERRLA, EOMI, Normocephalic Oral: Moist Mucosa Neck: Supple, No JVD Lungs: Clear to auscultation, Normal air movement, No rhonchi, No wheeze, No rales Cardiovascular: Regular rate, Regular Rhythm, Normal S1, Normal S2, No murmurs Abdomen: Soft, Non Tender, Non-Distended, No Hepato-splenomegaly Extremities: No edema, Capillary Refill Less than 3 Seconds Skin: Left buttock redness and erythema without fluctuance. There is an area of packing, there is some seepage through the dressing?much improved Musculoskeletal: No Tenderness to Palpation of Joints or Extremities Neurological: No focal neurological deficits, moves all extremities Psych/Mental Status: Normal Affect, Appropriate Weight / BMI Weight Weight: 241 lb 10.026 oz Body Mass Index (BMI) 32.8 ABG / Lab / Microbiology Data 08/18/25 05:20 08/17/25 05:12 Laboratory: Laboratory Results - last 24 hr 08/18/25 05:20: WBC 9.2, RBC 4.15 L, Hgb 12.6 L, Hct 37.8 L, MCV 91.1, MCH 30.4, MCHC 33.3, RDW Std Deviation 44.9 H, RDW Coeff of [place]ancho 13.4, Plt Count 262, MPV 10.2, Immature Gran % (Auto) 0.300, Neut % (Auto) 68.2, Lymph % (Auto) 18.2 L, [place] % (Auto) 7.9, Eos % (Auto) 5.0, Baso % (Auto) 0.4, Absolute Neuts (auto) 6.3, Absolute Lymphs (auto) 1.68, Nucleated RBC % 0 Microbiology: Microbiology 08/16/25 13:35 Wound Abcess - Hip Gram Stain - Final 08/16/25 13:35 Wound Abcess - Hip Wound Culture - Preliminary Meth. resistant Staph. aureus D/C Instructions Call your doctor if you observe: Fever of 101 or Higher, Shortness of breath, Dizziness, Fainting spells, Swelling in the ankles, Chest pain and Increased palpitations (irregular heartbeat) DC O2, CPAP, BIPAP Needs Home O2 Discharge instructions: No Meaningful Use Info Meaningful Use Meaningful Use Diagnoses (Choose all that apply): None applicable Discharge Plan Admission Admit Date/Time: 08/16/25 14:40 Attending Provider: Alexys Shahid Primary Care Provider: Sherice العلي Discharge Orders/Prescriptions Prescriptions: New doxycycline monohydrate 100 mg Capsule 100 mg PO BID 7 Days Qty: 14 0RF cephalexin 500 mg Capsule 500 mg PO Q8 7 Days Qty: 21 0RF Continued atorvastatin 40 mg Tablet 40 mg PO QHS acetaminophen 500 mg Tablet 1,000 mg PO Q8 PRN (Reason: fever or pain) Qty: 0 0RF Rx Instructions: You have been taking this every 8 hours while in rehab. I would continue the every 8 hours for a week and then you can try using it every 6-8 hours as needed for pain. magnesium 250 mg tablet 500 mg PO DAILY meloxicam 15 mg tablet 15 mg PO DAILY Discontinued amoxicillin-pot clavulanate 875-125 mg tablet 1 tab PO BID Referrals / Follow Up: Sherice العلي MD [Primary Care Provider, Medical] - Within 1 Week Disposition Disposition (needs filled in before D/C Order can be placed): Home, Self Care Charges/Coding Visit Charges Inpatient E&M: 39843 Disch Hosp >30min
--- NOTE | 2025-08-18 11:37 | PHA.DC.MC.R ---
Pharmacy [facility] has performed discharge medication reconciliation and counseling for this patient. 1. CEPHALEXIN 500MG PO Q8 X 7 DAYS 2. DOXYCYCLINE 100MG PO BID X 7 DAYS 3. STOP AUGMENTIN The patient's discharge medication list was reviewed for discrepancies and discrepancies were resolved. The patient was counseled on the following discharge medications and changes in medications for homegoing were reviewed. The Reason for Use, instructions for use, and potential side effects were reviewed for all new medications. The patient's questions regarding all of their medications were answered. The patient was able to verbally demonstrate an understanding of their discharge medications. Medications at Discharge Home Medications atorvastatin 40 mg tablet 40 mg PO QHS CHOLESTEROL 11/11/21 acetaminophen 500 mg tablet 1,000 mg (2 x 500 mg) PO Q8 PRN fever or pain #0 tabs 12/07/21 meloxicam 15 mg tablet 15 mg PO DAILY 07/04/25 magnesium 250 mg tablet 500 mg PO DAILY 08/16/25 cephalexin 500 mg capsule 500 mg PO Q8 7 days #21 caps 08/18/25 doxycycline monohydrate 100 mg capsule 100 mg PO BID 7 days #14 caps 08/18/25
== END 2025-08-18 09:00 | disposition home or self-care (01) ==
LOC: ED 14:43 → MS3 15:11
PROVIDERS: Admitting Provider Family Medicine; Emergency Provider Emergency Medicine; PCP Family Medicine; Visit Provider Family Medicine
DX: L03.317 Cellulitis of buttock (principal); D72.829 Elevated white blood cell count, unspecified; B95.62 Methicillin resistant Staphylococcus aureus infection as the cause of diseases classified elsewhere; G89.29 Other chronic pain; Z87.891 Personal history of nicotine dependence; Z79.1 Long term (current) use of non-steroidal anti-inflammatories (NSAID); Z86.16 Personal history of COVID-19; Z90.49 Acquired absence of other specified parts of digestive tract; E78.5 Hyperlipidemia, unspecified; Z79.899 Other long term (current) drug therapy
CPT/HCPCS: 10061; 36415; 72193; 80048; 85025; 87070; 87075; 87077; 87186; 87205; 96365; 96366; 96375; 96376; 99221; 99285; Q9967; A4216; G0378; J0295; J2405

== ENCOUNTER 2025-09-20 09:44 | Emergency (ER) | payer MEDICARE, OTHER, SELFPAY ==
[2025-09-20 09:44] VITALS: BP 146/73; PULSE 102; RESP 18; TEMP 36.8; O2SAT 96; BMI 33.2
--- NOTE | 2025-09-20 10:02 | EX.ED.DYSGE1 ---
HPI History of Present Illness Chief Complaint: Abscess Informant: patient and family Narrative Narrative: Patient is a 69-year-old male with a history of recurrent abscesses presenting with a new abscess on the left hip. - Reports a new abscess on the left hip, approximately the size of a chicken egg, present for about a week. - Previous abscess on the left hip about a month ago, described as the size of the palm of his hand, which required incision and drainage and a 2-day hospital admission with antibiotics. - Current abscess is separate from the previous one, located further back on buttock. - Noticed a small bump this morning, suggesting it may be ready to drain. - Denies fever; reports feeling a little crappy once in a while. - No drainage from the current abscess yet. PFSH PFSH Medical History MRSA (methicillin resistant staph aureus) culture positive Obstructive sleep apnea Physical debility Left leg paresthesias Chronic back pain Radicular pain of left lower extremity Radicular pain of right lower extremity Osteoarthritis (arthritis due to wear and tear of joints) COVID-19 virus infection Lumbar stenosis Wears glasses History of steroid therapy Injury of back Former smoker On home oxygen therapy Shortness of breath on exertion History of pain when walking History of stress test Home Medications ?Medication ?Instructions ?Recorded ?Last Taken ?Type atorvastatin 40 mg tablet 40 mg PO QHS CHOLESTEROL 11/11/21 11/29/21 History acetaminophen 500 mg tablet 1,000 mg (2 x 500 mg) PO Q8 PRN 12/07/21 Unknown Rx fever or pain #0 tabs meloxicam 15 mg tablet 15 mg PO DAILY 07/04/25 Unknown History magnesium 250 mg tablet 500 mg PO DAILY 08/16/25 Unknown History doxycycline monohydrate 100 mg 100 mg PO BID #20 CAPSULES 09/20/25 Unknown Rx capsule Allergy/AdvReac Type Severity Reaction Status Date / Time No Known Allergies Allergy Verified 09/20/25 09:45 Family History Mother CAD (coronary artery disease) Arthritis Surgical History (Updated 08/26/25 @ 00:01 by Andi Marcum) Hx of colonoscopy Hx of cholecystectomy Hx of arthroscopy of left knee History of amputation of finger of right hand Surgical History unable to obtain Social History adopted: No household members: spouse number of children: 2 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 Smoking Status: Former smoker how long ago did patient quit smoking: He quit smoking in 1982 alcohol intake: never details: quit alcohol in 1982 substance use type: does not use ROS ROS ED Constitutional Constitutional ED: Denies chills or fever(s) Eyes Eyes: Denies change in vision or diplopia ENT ENT ED: Denies rhinorrhea or sore throat Cardiovascular Cardiovascular: Denies chest pain or palpitations Respiratory/Chest Respiratory/Chest: Denies cough or dyspnea Gastrointestinal Gastrointestinal: Denies abdominal pain, diarrhea, nausea or vomiting Genitourinary Genitourinary ED: Denies dysuria or hematuria Musculoskeletal Musculoskeletal: Denies back pain or neck pain Integumentary Reports abscess; Denies rash Neurologic Neurologic: Denies headache(s), paresthesias or weakness Psychiatric Psychiatric: Denies anxiety or suicidal thoughts EXAM Physical Exam Const Vital Signs: 09/20/25 09:44 09/20/25 10:06 Temperature 98.2 F 98.5 F Temperature Source Oral Oral Pulse Rate 102 H 87 Respiratory Rate 18 16 Blood Pressure 146/73 H 113/50 L Blood Pressure Mean 97 71 Pulse Ox 96 97 Oxygen Delivery Method Room Air Room Air Positive well nourished and well developed General Appearance ED: well developed and NAD HEENT Reports moist mucous membranes normocephalic and atraumatic Eyes PERRL and EOMs intact bilaterally Neck full ROM and supple Resp normal respiratory effort Back/Spine Back/Spine Narrative: Left buttock abscess, fairly medial but no perianal involvement. General Back: other FROM Extremity normal to inspection General Extremety ED: Negative for edema, pulses abnormal or tenderness General Extremity: Negative for edema or pulses abnormal Neuro oriented x3, CN's II-XII intact bilaterally and no sensory deficits noted Sensorium / Orientation: awake and alert Motor Exam: strength 5/5 throughout Skin Skin Narrative: Tender pointing left medial buttock abscess approximately 3 cm in diameter, indurated, erythematous but cellulitis is limited to the abscess itself. There is no spontaneous expression of discharge. MDM MDM MDM Narrative Medical decision making narrative: This is consistent with a straightforward buttock abscess measuring 3 cm in diameter, with no perianal involvement. It is a complex abscess. Drainage was performed at the bedside successfully without complication, and the patient tolerated it well. He is non-toxic, and his vital signs are normal: blood pressure 113/50, pulse 87, respirations 16, temperature 98.5?F, and pulse oximetry 97% on room air. I reviewed his prior discharge summary, which indicated significant cellulitis around a previous abscess. He was treated for MRSA after a culture showed sensitivity to doxycycline and cephalexin due to the extent of the cellulitis. Currently, he does not have significant cellulitis extending beyond the border of the abscess. I was able to obtain purulence from the abscess cavity, so I suspect MRSA. Given his prior culture demonstrating resistance to Bactrim and sensitivity to doxycycline, he was started on doxycycline. I do not think he needs parenteral therapy or hospital admission at this time. He was given appropriate instructions regarding wound care, with packing removal in 48 hours, follow-up, and reasons to return. He is comfortable with this plan. History & Record Review Additional record(s) reviewed:: Prior inpatient record and Prior labs (recent abscess/wound culture) Lab Data Lab results narrative: not currently acutely indicated Procedures Other Procedures Procedure(s): Complex cutaneous left buttock abscess incision and drainage --after informed written consent for the patient discussion risk benefits, the area was prepped with chlorhexidine, anesthetized with a total of 6 cc of plain 1% lidocaine, incised with a #10 blade centrally, moderate amount of purulent material was removed and expressed. Cavity was deloculated with hemostat aggressively, and the cavity was irrigated with about 60 cc of sterile saline gently all fluid was expressed, the cavity was packed with half-inch plain sterile gauze and dressed with bacitracin. Tolerated well no complications. Discharge Plan Triage Chief Complaint: Abscess ED Provider: Oniel Turner Dx/Rx/DC Orders Clinical Impression: Abscess of buttock, left, MRSA infection Instructions: ED Abscess Incision And Drainage Prescriptions: New doxycycline monohydrate 100 mg capsule 100 mg PO BID Qty: 20 0RF No Action atorvastatin 40 mg Tablet 40 mg PO QHS acetaminophen 500 mg Tablet 1,000 mg PO Q8 PRN (Reason: fever or pain) Qty: 0 0RF Rx Instructions: You have been taking this every 8 hours while in rehab. I would continue the every 8 hours for a week and then you can try using it every 6-8 hours as needed for pain. magnesium 250 mg tablet 500 mg PO DAILY meloxicam 15 mg tablet 15 mg PO DAILY Primary Care Provider: Sherice العلي Referrals: Sherice العلي MD [Primary Care Provider, Medical] - 1 Week Referral Note: unless worsening - return to ER Activity Restrictions/Additional Instructions: Try to leave packing intact for 48 hours and then remove and discard. If it falls out earlier than that, do not worry about it, just continue dressing changes. If there is any water that gets into the area after a shower or what not, you may gently apply pressure to the surrounding area to express it prior to a new dressing change. Antibiotic ointment on the area with these dressing changes okay as well. Sitz baths with hot nonscalding soapy water for 15-20 minutes 2 times daily for the next 3 or 4 days is recommended. If you are concerned about it recurring or getting worse, return to the ER for reevaluation. Print Language: [place] Disposition Disposition: Home, Self Care
[2025-09-20 10:06] VITALS: BP 113/50; PULSE 87; RESP 16; TEMP 36.9; O2SAT 97
[2025-09-20] MEDS: Lidocaine 1% (20 ml mdv) 20 ML Vial INFILT (10:12)
--- OUTSIDE RECORDS SUMMARY | 2025-09-20 10:30 | XMS RPT_ITS | CCD ---
Author Organization [facility] Care Team Providers Care Middleware Engineer Name Role Phone Laquita Ding Primary Care Provider [phone] LAQUITA DING Primary Care Physician Alex KATZ, Dr. Hutson Attending Physician Dr. Haresh Johnson MD Referring Provider Lawrence Abad MD Attending Physician Lawrence Abad MD Emergency Department Physician Severiano KATZ, Dr. Smiley Primary Care Physician Laquita Ding DO Primary Care Provider [phone] LAQUITA DING Primary Care Unavailable CYDNEY CANTU Attending Unavailable TIMURLAQUITA Primary Care Unavailable MARJORIE SEARS Attending Unavailable LAQUITA DING Primary Care Unavailable NAPORA, PK Referring Unavailable DUDDELLA, JOSÉ ANTONIO Admitting Unavailable TIMUR LAQUITA Primary Care Unavailable ZOEY JAMES Consulting Unavailable PACOELLA, JOSÉ ANTONIO Attending Unavailable Haresh Johnson Referring Unavailabl e CROATIAN, JERSON Primary Care Unavailable Haresh Johnson Attending UnavailHaresh Davis Referring Unavailabl e CROATIAN, JERSON Primary Care Unavailable Haresh Johnson Attending UnavailLawrence Baugh Attending Unavailable العلي, Sherice Primary Care Unavailable Alexys Shahid Admitting Unavailable العلي, Sherice Primary Care Unavailable Alexys Shahid Attending Unavailable العلي, Sherice Primary Care Unavailable Alexys Shahid Consulting Unavailable Alexys Shahid Attending Unavailable Alexys Shahid Admitting Unavailable Medications Current Medications Medication Drug Class(es) [...] tablet 650 mg 20 ml albumin human, half-way 250 mg/ml injection (3 sources) Human Serum [...] Start: 10-19-2020 take 2000 [IU] by mo uth once daily 2,000 Units, Oral, DAILY, First [...] 20 mg/ml oral suspension (1 source) Uncompetitive I-ejguzi-B-aspartat e Receptor Antagonist, Sigma-1 Agonist Start: 10-19-2020 [...] dose docusate sodium 50 mg / sennosides, half-way 8.6 mg oral tablet (4 sources) Start: [...] 24 hours scheduled (Daily), First dose on Lilo 05/22/25 at 0900, Indication of Use: Prophylaxis-DVT/PE, Indications: [...] tartrate 1 mg/ml injection (8 sources) beta-Adrenergic Katei Start: 10-31-2020 End: 11-01-2020 metoprolol (LOPRESSOR) injection [...] (DEFINITY) injection 0.48 mg polyethylene glycol 3350 33867 mg powder for oral solution (3 sources) [...] sources) Supraventricular tachycardia; Translations: [Supraventricular tachycardia] Onset: 09-12-2017 Chronic Conditions associated with dizziness or [...] failure with hypoxia] Onset: 1 11-24-2020 Chronic Skin and subcutaneous tissue infections (2 sources) Cellulitis of buttock; Translations: [Cellulitis of buttock] Onset: 5 Episodic Syncope (20 sources) Syncope; Translations: [Syncope and collapse] Onset: 7 09-12-2017 Episodic Unclassified (1 source) Protein level - finding; [...] after the l umbar laminectomy and fusion Viral infection (20 sources) Other specified viral infection; Translations: [COVID-19] Onset: 10-19-2020 Episodic Results Test Name Value Interpretation Reference Range Facility Culture, Anaerobic Any Sourc jet 08-19-2025 CUAN No anaerobic bacteria isolated. Meth. resistant Staph. aureus: REACTION cefOXitin Susc Islt POS Doxycycline Islt SHALOM <=0.5 S Clindamycin Islt SHALOM 0.25 S Clindamycin.induced Susc Islt NEG Erythromycin Islt SHALOM >=8 R Gentamicin Islt SHALOM <=0.5 S Linezolid Islt SHALOM 2 S Moxifloxacin Islt SHALOM 1 S Oxacillin Susc Islt >=4 R Tetracycline Islt SHALOM <=1 S TMP SMX Islt SHALOM >=320 R Vancomycin Islt SHALOM 1 S Normal [facility] Comment on above: Performed By: #### M 100.2000, M100.4001, M100.3000 #### [facility] [address] [place], [address] Wound Cultureon 08-19-2025 WC Copy of report sent to Infection Control Printer [id number] 08/18/25 0830 ASNIPES. Meth. resistant Staph. aureus Amount Growth 2+ mecA Testing not performed Normal [facility] Comment on above: Performed By: #### M 100.1999, M100.4001, M100.3000 #### [facility] [address] [place], [address] CBC W/Diff, Automatedon 11- Absolute Lymph 1.68 X10 3/uL Normal 0.83-4.51 [facility] Comment on above: Performed By: #### L 100.0100 #### [facility] [address] [place], [address] Absolute Neut 6.3 X10 3/uL Normal 2.0-7.7 [facility] Comment on above: Performed By: #### L 100.0100 #### [facility] [address] [place], [address] Basophils/100 WBC (Bld) 0.4 % Normal 0-1 [facility] Comment on above: Performed By: #### L 100.0100 #### [facility] [address] [place], [address] Eosinophils/100 WBC (Bld) 5.0 % Normal 0-5 [facility] Comment on above: Performed By: #### L 100.0100 #### [facility] [address] [place], [address] Erythrocyte distribution width (RBC) [Ratio] 13.4 % Normal 11.6-14.6 [facility] Comment on above: Performed By: #### L 100.0100 #### [facility] [address] [place], [address] Hematocrit (Bld) [Volume fraction] 37.8 % Low 40-54 [facility] Comment on above: Performed By: #### L 100.0100 #### [facility] [address] [place], [address] Hemoglobin (Bld) [Mass/Vol] 12.6 g/dL Low 13.0-16.5 [facility] Comment on above: Performed By: #### L 100.0100 #### [facility] [address] [place], [address] IG% 0.300 Normal 0.0-0.9 [facility] Comment on above: Result Comment: IG% - Immature Granulocytes (promyelocytes, myelocytes and metamyelocytes) > 1% indicates that a LEFT SHIFT is Present. Performed By: #### L 100.0100 #### [facility] [address] [place], [address] Lymphocytes/100 WBC (Bld) 18.2 % Low 19-41 [facility] Comment on above: Performed By: #### L 100.0100 #### [facility] [address] [place], [address] MCH (RBC) [Entitic mass] 30.4 pg Normal 27.0-32.0 [facility] Comment on above: Performed By: #### L 100.0100 #### [facility] [address] [place], [address] MCHC (RBC) [Mass/Vol] 33.3 g/dL Normal 32-36 [facility] Comment on above: Performed By: #### L 100.0100 #### [facility] [address] [place], [address] MCV (RBC) [Entitic vol] 91.1 fL Normal 80-94 [facility] Comment on above: Performed By: #### L 100.0100 #### [facility] [address] [place], [address] Monocytes/100 WBC (Bld) 7.9 % Normal 0-10 [facility] Comment on above: Performed By: #### L 100.0100 #### [facility] [address] [place], [address] Neutrophils/100 WBC (Bld) 68.2 % Normal 47-70 [facility] Comment on above: Performed By: #### L 100.0100 #### [facility] [address] [place], [address] Nucleated RBC (Bld) [#/Vol] 0 10*3/uL Normal 0-5 [facility] Comment on above: Performed By: #### L 100.0100 #### [facility] [address] [place], [address] Platelet mean volume (Bld) [Entitic vol] 10.2 fL Normal 6.2-12.0 [facility] Comment on above: Performed By: #### L 100.0100 #### [facility] [address] [place], [address] Platelets (Bld) [#/Vol] 262 10*3/uL Normal 150-450 [facility] Comment on above: Performed By: #### L 100.0100 #### [facility] [address] [place], [address] RBC (Bld) [#/Vol] 4.15 10*6/uL Low 4.6-6.2 [facility] Comment on above: Performed By: #### L 100.0100 #### [facility] [address] [place], [address] RDW SD 44.9 fl High 35.1-43.9 [facility] Comment on above: Performed By: #### L 100.0100 #### [facility] [address] [place], [address] WBC (Bld) [#/Vol] 9.2 10*3/uL Normal 4.4-11.0 [facility] Comment on above: Performed By: #### L 100.0100 #### [facility] [address] [place], [address] Discharge Instructionon 11-0 Discharge Instruction [facility] Medical Records Department [address] [place] [address] Instructions for Home/Discharge Instructions 08/18/25 0858 MR#: [id number] Acct: [id number] Name: JOSEPH BROWN Rep #: [id number] : 1955 69 From: Alexys Shahid MD PCP: Dr. Sherice العلي MD Status:ADM RAYRAY Discharge Instructions DC O2, CPAP, BIPAP needs Home O2 Discharge instructions: No Dressing / Incision Discharge Activity: Return to Normal Activity Dressing / Incision Call your doctor if you observe: Fever of 101 or Higher, Shortness of breath, Dizziness, Fainting spells, Swelling in the ankles, Chest pain and Increased palpitations (irregular heartbeat) Follow Up Care Test Results: Test results from this visit will be discussed in further detail at your follow-up appointment, if applicable. Discharge Plan Admission Admit Date/Time: 08/16/25 14:40 Attending Provider: Alexys Shahid Primary Care Provider: Sherice العلي Discharge Orders/Prescriptions Prescriptions: New doxycycline monohydrate 100 mg Capsule 100 mg PO BID 7 Days Qty: 14 0RF cephalexin 500 mg Capsule 500 mg PO Q8 7 Days Qty: 21 0RF Continued atorvastatin 40 mg Tablet 40 mg PO QHS acetaminophen 500 mg Tablet 1,000 mg PO Q8 PRN (Reason: fever or pain) Qty: 0 0RF Rx Instructions: You have been taking this every 8 hours while in rehab. I would continue the every 8 hours for a week and then you can try using it every 6-8 hours as needed for pain. magnesium 250 mg tablet 500 mg PO DAILY meloxicam 15 mg tablet 15 mg PO DAILY Discontinued amoxicillin-pot clavulanate 875-125 mg tablet 1 tab PO BID Referrals / Follow Up: Sherice العلي MD [Primary Care Provider, Medical] - Within 1 Week Disposition Disposition (needs filled in before D/C Order can be placed): Home, Self Care 08/18/25 0902 Alexys Shahid MD CC: Dr. Sherice العيل MD Signed Normal [facility] Basic Metabolic Profile (BMP )on 08-17-2025 BUN/CRE 20.0 RATIO Normal 10-20 [facility] Comment on above: Performed By: #### L 500.2500, L100.0100 #### [facility] [address] [place], [address] Calcium [Mass/Vol] 8.4 mg/dL Normal 7.6-11.0 [facility] Comment on above: Performed By: #### L 500.2500, L100.0100 #### [facility] [address] [place], [address] Chloride [Moles/Vol] 105 mmol/L Normal 98-108 [facility] Comment on above: Performed By: #### L 500.2500, L100.0100 #### [facility] [address] [place], [address] CO2 [Moles/Vol] 21.9 mmol/L Normal 21.0-32.0 [facility] Comment on above: Performed By: #### L 500.2500, L100.0100 #### [facility] [address] [place], [address] Creatinine [Mass/Vol] 0.84 mg/dL Normal 0.70-1.20 [facility] Comment on above: Performed By: #### L 500.2500, L100.0100 #### [facility] [address] [place], [address] ECRCL 103.13 ml/min Normal 50-250 [facility] Comment on above: Performed By: #### L 500.2500, L100.0100 #### [facility] [address] [place], [address] GAP 10 Normal 5-15 [facility] Comment on above: Performed By: #### L 500.2500, L100.0100 #### [facility] [address] [place], [address] GFR/1.73 sq M.predicted among non-blacks MDRD (S/P/Bld) [Vol rate/Area] 93 mL/min/{1.73_m2} Normal >60 [facility] Comment on above: Result Comment: mL/m in/1.73m2 CKD-EPI Creatinine Equation (2020) Performed By: #### L 500.2500, L100.0100 #### [facility] [address] [place], [address] Glucose [Mass/Vol] 107 mg/dL High 70-99 [facility] Comment on above: Performed By: #### L 500.2500, L100.0100 #### [facility] [address] [place], [address] Potassium [Moles/Vol] 4.2 mmol/L Normal 3.3-5.1 [facility] Comment on above: Performed By: #### L 500.2500, L100.0100 #### [facility] [address] [place], [address] Sodium [Moles/Vol] 136 mmol/L Normal 133-145 [facility] Comment on above: Performed By: #### L 500.2500, L100.0100 #### [facility] [address] [place], [address] Urea nitrogen [Mass/Vol] 17 mg/dL Normal 4-19 [facility] Comment on above: Performed By: #### L 500.2500, L100.0100 #### [facility] [address] [place], [address] CBC W/Diff, Automatedon 11-0 2-2024 Absolute Lymph 2.09 X10 3/uL Normal 0.83-4.51 [facility] Comment on above: Performed By: #### L 500.2500, L100.0100 #### [facility] [address] [place], [address] Absolute Neut 9.0 X10 3/uL High 2.0-7.7 [facility] Comment on above: Performed By: #### L 500.2500, L100.0100 #### [facility] [address] [place], [address] Basophils/100 WBC (Bld) 0.2 % Normal 0-1 [facility] Comment on above: Performed By: #### L 500.2500, L100.0100 #### [facility] [address] [place], [address] Eosinophils/100 WBC (Bld) 2.5 % Normal 0-5 [facility] Comment on above: Performed By: #### L 500.2500, L100.0100 #### [facility] [address] [place], [address] Erythrocyte distribution width (RBC) [Ratio] 13.5 % Normal 11.6-14.6 [facility] Comment on above: Performed By: #### L 500.2500, L100.0100 #### [facility] [address] [place], [address] Hematocrit (Bld) [Volume fraction] 36.6 % Low 40-54 [facility] Comment on above: Performed By: #### L 500.2500, L100.0100 #### [facility] [address] [place], [address] Hemoglobin (Bld) [Mass/Vol] 12.4 g/dL Low 13.0-16.5 [facility] Comment on above: Performed By: #### L 500.2500, L100.0100 #### [facility] [address] [place], [address] IG% 0.500 Normal 0.0-0.9 [facility] Comment on above: Result Comment: IG% - Immature Granulocytes (promyelocytes, myelocytes and metamyelocytes) > 1% indicates that a LEFT SHIFT is Present. Performed By: #### L 500.2500, L100.0100 #### [facility] [address] [place], [address] Lymphocytes/100 WBC (Bld) 16.5 % Low 19-41 [facility] Comment on above: Performed By: #### L 500.2500, L100.0100 #### [facility] [address] [place], [address] MCH (RBC) [Entitic mass] 31.0 pg Normal 27.0-32.0 [facility] Comment on above: Performed By: #### L 500.2500, L100.0100 #### [facility] [address] [place], [address] MCHC (RBC) [Mass/Vol] 33.9 g/dL Normal 32-36 [facility] Comment on above: Performed By: #### L 500.2500, L100.0100 #### [facility] [address] [place], [address] MCV (RBC) [Entitic vol] 91.5 fL Normal 80-94 [facility] Comment on above: Performed By: #### L 500.2500, L100.0100 #### [facility] [address] [place], [address] Monocytes/100 WBC (Bld) 8.9 % Normal 0-10 [facility] Comment on above: Performed By: #### L 500.2500, L100.0100 #### [facility] [address] [place], [address] Neutrophils/100 WBC (Bld) 71.4 % High 47-70 [facility] Comment on above: Performed By: #### L 500.2500, L100.0100 #### [facility] [address] [place], [address] Nucleated RBC (Bld) [#/Vol] 0 10*3/uL Normal 0-5 [facility] Comment on above: Performed By: #### L 500.2500, L100.0100 #### [facility] [address] [place], [address] Platelet mean volume (Bld) [Entitic vol] 10.1 fL Normal 6.2-12.0 [facility] Comment on above: Performed By: #### L 500.2500, L100.0100 #### [facility] [address] [place], [address] Platelets (Bld) [#/Vol] 236 10*3/uL Normal 150-450 [facility] Comment on above: Performed By: #### L 500.2500, L100.0100 #### [facility] [address] [place], [address] RBC (Bld) [#/Vol] 4.00 10*6/uL Low 4.6-6.2 [facility] Comment on above: Performed By: #### L 500.2500, L100.0100 #### [facility] [address] [place], [address] RDW SD 46.1 fl High 35.1-43.9 [facility] Comment on above: Performed By: #### L 500.2500, L100.0100 #### [facility] [address] [place], [address] WBC (Bld) [#/Vol] 12.7 10*3/uL High 4.4-11.0 [facility] Comment on above: Performed By: #### L 500.2500, L100.0100 #### [facility] [address] [place], [address] Gram Stainon 08-17-2025 GS Gram Stain Very Rare Gram positive cocci No Epithelial cells 1+ White Blood Cells Normal [facility] Comment on above: Performed By: #### M 100.2000, M100.4001, M100.3000 #### [facility] [address] [place], [address] Basic Metabolic Profile (BMP )on 08-16-2025 BUN/CRE 18.8 RATIO Normal 10-20 [facility] Comment on above: Performed By: #### L 100.0100, L500.2500 #### [facility] [address] [place], [address] Calcium [Mass/Vol] 8.8 mg/dL Normal 7.6-11.0 [facility] Comment on above: Performed By: #### L 100.0100, L500.2500 #### [facility] [address] [place], [address] Chloride [Moles/Vol] 105 mmol/L Normal 98-108 [facility] Comment on above: Performed By: #### L 100.0100, L500.2500 #### [facility] [address] [place], [address] CO2 [Moles/Vol] 22.2 mmol/L Normal 21.0-32.0 [facility] Comment on above: Performed By: #### L 100.0100, L500.2500 #### [facility] [address] [place], [address] Creatinine [Mass/Vol] 1.19 mg/dL Normal 0.70-1.20 [facility] Comment on above: Performed By: #### L 100.0100, L500.2500 #### [facility] [address] [place], [address] ECRCL 73.47 ml/min Normal 50-250 [facility] Comment on above: Performed By: #### L 100.0100, L500.2500 #### [facility] [address] [place], [address] GAP 11 Normal 5-15 [facility] Comment on above: Performed By: #### L 100.0100, L500.2500 #### [facility] [address] [place], [address] GFR/1.73 sq M.predicted among non-blacks MDRD (S/P/Bld) [Vol rate/Area] 65 mL/min/{1.73_m2} Normal >60 [facility] Comment on above: Result Comment: mL/m in/1.73m2 CKD-EPI Creatinine Equation (2020) Performed By: #### L 100.0100, L500.2500 #### [facility] [address] [place], [address] Glucose [Mass/Vol] 100 mg/dL High 70-99 [facility] Comment on above: Performed By: #### L 100.0100, L500.2500 #### [facility] [address] [place], [address] Potassium [Moles/Vol] 4.1 mmol/L Normal 3.3-5.1 [facility] Comment on above: Performed By: #### L 100.0100, L500.2500 #### [facility] [address] [place], [address] Sodium [Moles/Vol] 137 mmol/L Normal 133-145 [facility] Comment on above: Performed By: #### L 100.0100, L500.2500 #### [facility] [address] [place], [address] Urea nitrogen [Mass/Vol] 22 mg/dL High 4-19 [facility] Comment on above: Performed By: #### L 100.0100, L500.2500 #### [facility] [address] [place], [address] CBC W/Diff, Automatedon 11-0 -2024 Absolute Lymph 1.93 X10 3/uL Normal 0.83-4.51 [facility] Comment on above: Performed By: #### L 100.0100, L500.2500 #### [facility] [address] [place], [address] Absolute Neut 10.9 X10 3/uL High 2.0-7.7 [facility] Comment on above: Performed By: #### L 100.0100, L500.2500 #### [facility] [address] [place], [address] Basophils/100 WBC (Bld) 0.3 % Normal 0-1 [facility] Comment on above: Performed By: #### L 100.0100, L500.2500 #### [facility] [address] [place], [address] Eosinophils/100 WBC (Bld) 1.2 % Normal 0-5 [facility] Comment on above: Performed By: #### L 100.0100, L500.2500 #### [facility] [address] [place], [address] Erythrocyte distribution width (RBC) [Ratio] 13.6 % Normal 11.6-14.6 [facility] Comment on above: Performed By: #### L 100.0100, L500.2500 #### [facility] [address] [place], [address] Hematocrit (Bld) [Volume fraction] 40.0 % Normal 40-54 [facility] Comment on above: Performed By: #### L 100.0100, L500.2500 #### [facility] [address] [place], [address] Hemoglobin (Bld) [Mass/Vol] 13.3 g/dL Normal 13.0-16.5 [facility] Comment on above: Performed By: #### L 100.0100, L500.2500 #### [facility] [address] [place], [address] IG% 0.400 Normal 0.0-0.9 [facility] Comment on above: Result Comment: IG% - Immature Granulocytes (promyelocytes, myelocytes and metamyelocytes) > 1% indicates that a LEFT SHIFT is Present. Performed By: #### L 100.0100, L500.2500 #### [facility] [address] [place], [address] Lymphocytes/100 WBC (Bld) 13.2 % Low 19-41 [facility] Comment on above: Performed By: #### L 100.0100, L500.2500 #### [facility] [address] [place], [address] MCH (RBC) [Entitic mass] 30.4 pg Normal 27.0-32.0 [facility] Comment on above: Performed By: #### L 100.0100, L500.2500 #### [facility] [address] [place], [address] MCHC (RBC) [Mass/Vol] 33.3 g/dL Normal 32-36 [facility] Comment on above: Performed By: #### L 100.0100, L500.2500 #### [facility] [address] [place], [address] MCV (RBC) [Entitic vol] 91.3 fL Normal 80-94 [facility] Comment on above: Performed By: #### L 100.0100, L500.2500 #### [facility] [address] [place], [address] Monocytes/100 WBC (Bld) 10.1 % High 0-10 [facility] Comment on above: Performed By: #### L 100.0100, L500.2500 #### [facility] [address] [place], [address] Neutrophils/100 WBC (Bld) 74.8 % High 47-70 [facility] Comment on above: Performed By: #### L 100.0100, L500.2500 #### [facility] [address] [place], [address] Nucleated RBC (Bld) [#/Vol] 0 10*3/uL Normal 0-5 [facility] Comment on above: Performed By: #### L 100.0100, L500.2500 #### [facility] [address] [place], [address] Platelet mean volume (Bld) [Entitic vol] 9.9 fL Normal 6.2-12.0 [facility] Comment on above: Performed By: #### L 100.0100, L500.2500 #### [facility] [address] [place], [address] Platelets (Bld) [#/Vol] 239 10*3/uL Normal 150-450 [facility] Comment on above: Performed By: #### L 100.0100, L500.2500 #### [facility] [address] [place], [address] RBC (Bld) [#/Vol] 4.38 10*6/uL Low 4.6-6.2 [facility] Comment on above: Performed By: #### L 100.0100, L500.2500 #### [facility] [address] [place], [address] RDW SD 46.3 fl High 35.1-43.9 [facility] Comment on above: Performed By: #### L 100.0100, L500.2500 #### [facility] [address] [place], [address] WBC (Bld) [#/Vol] 14.6 10*3/uL High 4.4-11.0 [facility] Comment on above: Performed By: #### L 100.0100, L500.2500 #### [facility] [address] [place], [address] Emergency Department Summary on 08-16-2025 Emergency Department Summary [facility] Medical Records Department [address] [place] [address] Emergency Department Summary 08/16/25 MR#: [id number] Acct: [id number] Name: JOSEPH BROWN Rep #: [id number] : 1955 69 From: Nikolas Castanon MD PCP: Dr. Sherice العلي MD Status:ADM [id number] Nikolas Castanon MD on 08/16/25 at 1600 Chief complaint: Left hip redness, pain and swelling. Fever and chills. History of present illness: 69-year-old male had left hip pain for about a week. Last went and saw primary care physician was diagnosed as an abscess. They did a needle aspiration in the office and placed a dressing. He is placed on Augmentin twice daily. He is taken 4 doses. Now he has worse pain redness and swelling. Associated fever and chills. No prior history of this. He is not diabetic. Review of systems unremarkable other than the pain and redness to his left buttock region. And subjective fever and chills. No recent cough. No vomiting. No diarrhea. Physical exam: 69-year-old male sitting upright in bed. Vital signs stable afebrile. No acute distress. Family in the room. H EENT exam pupils round react light. Moist with members. Neck nontender no JVD. Lungs clear to auscultation. Heart regular rhythm no murmur. Chest wall ribs nontender. Abdomen soft nontender. Moving all 4 extremities. Left buttock has an area of cellulitis probably 6 x 8 inches. There is no fluctuance. There is no subcu air or crepitance. He is tender to palpation. There is an area where it was aspirated that is draining purulent fluid. Patient has full flexion extension and internal/external rotation of the left hip. He does not have any signs of a septic hip. Normal dorsi plantarflexion. Normal traveling clerk strength. He was patient has cellulitis of his left buttock. May or may not have an abscess. CAT scan labs were obtained. CAT scan showed inflammation but no walled off abscess. Procedure: Left buttock cellulitis possible abscess. Area was cleaned with iodine. Local anesthetized with plain lidocaine. I made a 1 inch incision was able to express a small amount of p us mainly bloody fluid. I probed the area with a forceps. And placed about 5 inches of half-inch gauze. Patient tolerated procedure well. 08/16/25 1600 Cosigner Signature (if applicable): cc: Dr. Sherice العلي MD * Signed [facility] History of Present Illness Chief Complaint: [facility] Medical History Obstructive sleep apnea Left [...] mg PO DAILY 07/04/25 Unknown Hi story amoxicillin 875 mg-potassium 1 tab PO BID 08/16/25 Unknown Hist ory clavulanate 125 mg tablet magnesium 250 mg tablet 500 mg PO DAILY 08/16/25 Unknown H istory Allergy/AdvReac Type Severity Reaction Status Date / Time No Known Allergies Allergy Verified 08/16/25 12:38 Family History Mother CAD (coronary artery disease) Arthritis Surgical History Hx of colonoscopy Hx of cholecystectomy Hx of arthroscopy of left knee History of amputation of finger of right hand Social History adopted: No household members: spouse number of children: 2 current occupational status: retired 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 ([place] and debility due to that Smoking Status: Former smoker how long ago did patient quit smoking: He quit smoking in 1982 alcohol intake: never details: quit alcohol in 1982 substance use type: does not use EXAM Physical Exam Const Vital Signs: 08/16/25 12:38 08/16/25 12:44 08/16/25 14:00 Temperature 99.1 F 99.1 F 98.6 F Temperature Source Oral Oral Oral Pulse Rate 102 H 102 H 77 Respiratory Rate 22 H 22 H 22 H Blood Pressure 127/74 H 127/74 H 128/62 H Blood Pressure Mean 91 91 84 Pulse Ox 100 100 99 Oxygen Delivery Method Room Air Room Air Room Air MDM MDM MDM Narrative Medical decision making narrative: 69-year-old male with left hip/buttock abscess. Thornton (more content not included)... Normal [facility] H AND P Exam - [facility] 08-16-2025 H&P Exam - Hospitalist [facility] Medical Records Department [address] [place] [address] H P Exam - Hospitalist 08/16/25 1552 MR#: [id number] Acct: [id number] Name: JOSEPH BROWN VENITA Rep #: [id number] : 1955 69 From: Alexys Shahid MD PCP: Dr. Sherice العلي MD Status:ADM RAYRAY Location: [place] [id number] HPI - General General Date of Admission: 08/16/25 HPI Narrative JOSEPH BROWN, is a 69 M who presents to the hospital with concerns for a left buttock abscess. He had gone to an urgent care last week where they did an aspiration and put him on antibiotics. He took approximately a day or 2 of antibiotics before coming into the hospital today. CT scan is negative for organized abscess but does show cellulitis, in the ER he had a little bit of an I D that drained a little bit of purulent fluid. This was sent off for culture. He was started on Unasyn. No signs of sepsis he does have a leukocytosis but no fever. No decreased mobility or pain in his hip and based on imaging there is no extension of the infection. [facility] Medical History Obstructive sleep apnea Physical debility Left leg paresthesias Chronic back pain Radicular pain of left lower extremity Radicular pain of right lower extremity Osteoarthritis (arthritis due to wear [...] mg PO DAILY 07/04/25 Unknown Hi story amoxicillin 875 mg-potassium 1 tab PO BID 08/16/25 Unknown Hist ory clavulanate 125 mg tablet magnesium 250 mg tablet 500 mg PO DAILY 08/16/25 Unknown H istory Allergy/AdvReac Type Severity Reaction Status Date / Time No Known Allergies Allergy Verified 08/16/25 12:38 Family History Mother CAD (coronary artery disease) Arthritis Surgical History Hx of colonoscopy Hx of cholecystectomy Hx of arthroscopy of left knee History of amputation of finger of right hand Social History adopted: No household members: spouse number of children: 2 current occupational status: retired 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 ([place] and debility due to that Smoking Status: Former smoker how long ago did patient quit smoking: He quit smoking in 1982 alcohol intake: never details: quit alcohol in 1982 substance use type: does not use ROS Constitutional Constitutional: Denies chills, fatigue, fever(s) or malaise Eyes Eyes: Denies blurry vision ENT HEENT: Denies headache(s) or nasal discharge Cardiovascular Cardiovascular: Denies chest pain, dyspnea on exertion or syncope Respiratory/Chest Respiratory/Chest: Denies cough, shortness of breath at rest or shortness of breath with exertion Gastrointestinal Gastrointestinal: Denies constipation, diarrhea, nausea or vomiting Genitourinary Genitourinary: Denies dysuria Integumentary Integumentary: Reports rash Neurologic Neurologic: Denies focal weakness, numbness or tremor(s) Psychiatric Psychiatric: Denies anxiety or depression Vital Signs Vital Signs Vital Signs: 08/16/25 12:38 08/16/25 12:44 08/16/25 14:00 Temperature 99.1 F 99.1 F 98.6 F Temperature Source Oral Oral Oral Pulse Rate 102 H 102 H 77 Respiratory Rate 22 H 22 H 22 H Blood Pressure 127/74 H 127/74 H 128/62 H Blood Pressure Mean 91 91 84 Pulse Ox 100 100 99 Oxygen Delivery Method Room Air Room Air Room Air 08/16/25 14:37 08/16/25 14:48 Temperature 98.4 F Temperature Source Pulse Rate 84 84 Respiratory Rate 22 H 30 H Blood Pressure 112/60 112/60 Blood Pressure Mean 77 77 Pulse Ox 100 100 Oxygen Delivery Method Room Air Weight Weight: 246 lb 3.2 oz Body Mass Index (BMI) 33.3 Physical Exam Narrative General: Alert, Oriented x3, Cooperative, No apparent distress HEENT: Atraumatic, PERRLA, EOMI, Normocephalic Oral: Moist Mucosa Neck: Supple, No JVD Lungs: Clear to auscultation, Normal air movement, No rhonchi, No wheeze, No rales Cardiovascular: Regular rate, Regular Rhythm, Normal S1, Normal S2, No murmurs Abdomen: Soft, Non Tender, Non-Distended, No Hepato-splenomegaly Extremities: No edema, (more content not included)... Normal [facility] Pelvis WITH IV Contraston Pelvis WITH IV Contrast [facility] Imaging Services [address], [place] [address] Pelvis WITH IV Contrast MR#: [id number] Acct: [id number] Name: JOSEPH BROWN Rep #: [id number] : 1955 M 69 From: Eugenio David MD PCP: Dr. Sherice العلي MD Status: ADM RAYRAY Study: Pelvis WITH IV Contrast Date of Exam: 08/16/25 Exam# [id number] Ordering Dr: Nikolas Castanon MD PROCEDURE: PELVIS WITH IV CONTRAST 08/16/2025 REASON FOR EXAM: LEFT HIP/BUTTOCK SUBCU ABSCESS TECHNIQUE: Procedure Code: CTPELW Modality: CT Procedure: PELVIS WITH IV CONTRAST CONTRAST: Isovue 370 VOLUME: 99 mL RADIATION DOSE SUMMARY: CTDlvol: 63 mGy DLP: 2283 mGycm COMPARISON: None FINDINGS: Bladder: Normal Ureters: Distal ureters appear unremarkable. Prostate: Normal Bowel: Partially imaged small bowel, colon appears normal. Appendix: The appendix is not identified. There is no inflammatory process identified in the right lower quadrant to suggest appendicitis. Lymph nodes: None appear enlarged Vasculature: Severe atherosclerotic plaque without aneurysm. Peritoneum / Retroperitoneum: No free air, free fluid or mass. Bones: Posterior fusion L4 through S1. Disc spacers L4/5 and L5/S1. Laminectomy lower lumbar spine. Skin thickening and infiltration of the skin overlying the left buttock. No fluid collection/abscess. CT/Pelvis WITH IV Contrast IMPRESSION: 1. Skin thickening, infiltration of the subcutaneous soft tissues overlying the left buttock. No abscess. Consider cellulitis. Reading Location: [id number] CC: Dr. Nikolas Castanon MD; Dr. Sherice العلي MD Community Service Organization Director: Signed [facility] 36on 08-13-2025 36 S: Patient spoke with [...] ping pong ball) Protocols used: Boil (Skin Abscess)-ADULT-[facility] Surgical pathology reportOrd ered By: Theodore Hunt on 07-07-2025 Surgical pathology study [facility] 12 Lead EKGon 07-04-2025 12 Lead EKG [facility] Cardiovascular Services [address] [place] [address] 12 Lead EKG 07/04/25 1010 MR#: [id number] Acct: [id number] Name: JOSEPH BROWN Rep #: [id number] : 1955 69 From: Dion Potter MD [...] ECG Confirmed by DION POTTER MD ([id number]), development editor FELISHA DEAN ([id number]) on 07/07/2025 8:01:26 AM Referred By: Confirmed By: DION POTTER MD 07/07/25 0801 Date Dion Potter MD CC: Dr. Lawrence Abad MD; Dr. Sherice اللعي MD Signed Normal [facility] Absolute lymphocyte countOrd ered By: Lawrence Abad on 07-04-2025 Lymphocytes Auto (Unsp spec) [#/Vol] 1.41 10*3/uL 0.83-4.51 [facility] Absolute neutrophil countOrd ered By: Lawrence Abad on 07-04-2025 Neutrophils (Bld) [#/Vol] 8.4 10*3/uL High 2.0-7.7 [facility] Anion gap in Serum or Plasma Ordered By: Lawrence Abad on 07-04-2025 Anion gap [Moles/Vol] 12 mmol/L 02-27 [facility] Automated lymphocyte count a s percentage of total leukocytesOrdered By: Lawrence Abad on 07-04-2025 Lymphocytes/100 WBC Auto (Unsp spec) 12.8 % Low [facility] BUN/creatinine ratioOrdered By: Lawrence Abad on 07-04-2025 Urea nitrogen/Creatinine [Mass ratio] 15.8 mg/mg 08-04 [facility] Basic Metabolic Profile (BMP )on 07-04-2025 GAP 12 Normal 02-27 [facility] Comment on above: Performed By: #### M , M1.4000, M1.3000 #### [facility] [address] [place], [address] BUN/CRE 15.8 RATIO Normal 08-04 [facility] Comment on above: Performed By: #### M , , M1.3000 #### [facility] [address] [place], [address] Calcium [Mass/Vol] 8.7 mg/dL Normal 7.6-11.0 [facility] Comment on above: Performed By: #### M 100.1999, M100.400, M100.3000 #### [facility] [address] [place], [address] Chloride [Moles/Vol] 103 mmol/L Normal 98-108 [facility] Comment on above: Performed By: #### M 100.1999, M100.400, M100.3000 #### [facility] [address] [place], [address] CO2 [Moles/Vol] 22.3 mmol/L Normal 21.0-32.0 [facility] Comment on above: Performed By: #### M 100.1999, M1.400, M100.3000 #### [facility] [address] [place], [address] Creatinine [Mass/Vol] 0.84 mg/dL Normal 0.70-1.20 [facility] Comment on above: Performed By: #### M 100, M1.400, M100.3000 #### [facility] [address] [place], [address] ECRCL 104.58 ml/min Normal 50-250 [facility] Comment on above: Performed By: #### M 100, M100.400, M100.3000 #### [facility] [address] [place], [address] GFR/1.73 sq M.predicted among non-blacks MDRD (S/P/Bld) [Vol rate/Area] 93 mL/min/{1.73_m2} Normal >60 [facility] Comment on above: Result Comment: mL/m in/1.73m2 CKD-EPI Creatinine Equation (2020) Performed By: #### M 100, M100.400, M100.3000 #### [facility] [address] [place], [address] Glucose [Mass/Vol] 133 mg/dL High 70-99 [facility] Comment on above: Performed By: #### M 100, M1.400, M100.3000 #### [facility] [address] [place], [address] Potassium [Moles/Vol] 4.1 mmol/L Normal 3.3-5.1 [facility] Comment on above: Performed By: #### M .1999, .400, M100.3000 #### [facility] [address] [place], [address] Sodium [Moles/Vol] 137 mmol/L Normal 133-145 [facility] Comment on above: Performed By: #### M , .4000, M100.3000 #### [facility] [address] [place], [address] Urea nitrogen [Mass/Vol] 13 mg/dL Normal 4-19 [facility] Comment on above: Performed By: #### M , , M100.3000 #### [facility] [address] [place], [address] Basophil percentageOrdered B y: Lawrecne Abad on 07-04-2025 Basophils/100 WBC (Bld) 0.2 % 0-1 [facility] CBC W/Diff, Automatedon 06-16 Absolute Lymph 1.41 X10 3/uL Normal 0.83-4.51 [facility] Comment on above: Performed By: #### M , , M100.3000 #### [facility] [address] [place], [address] Absolute Neut 8.4 X10 3/uL High 2.0-7.7 [facility] Comment on above: Performed By: #### M , , M100.3000 #### [facility] [address] [place], [address] Basophils/100 WBC (Bld) 0.2 % Normal 0-1 [facility] Comment on above: Performed By: #### M , , M100.3000 #### [facility] [address] [place], [address] Eosinophils/100 WBC (Bld) 0.7 % Normal 0-5 [facility] Comment on above: Performed By: #### M , , M100.3000 #### [facility] [address] [place], [address] Erythrocyte distribution width (RBC) [Ratio] 13.9 % Normal 11.6-14.6 [facility] Comment on above: Performed By: #### M , , M1.3000 #### [facility] [address] [place], [address] Hematocrit (Bld) [Volume fraction] 40.5 % Normal 40-54 [facility] Comment on above: Performed By: #### M , , M1.3000 #### [facility] [address] [place], [address] Hemoglobin (Bld) [Mass/Vol] 13.4 g/dL Normal 13.0-16.5 [facility] Comment on above: Performed By: #### M , , M100.3000 #### [facility] [address] [place], [address] IG% 0.500 Normal 0.0-0.9 [facility] Comment on above: Result Comment: IG% - Immature Granulocytes (promyelocytes, myelocytes and metamyelocytes) > 1% indicates that a LEFT SHIFT is Present. Performed By: #### M , , M100.3000 #### [facility] [address] [place], [address] Lymphocytes/100 WBC (Bld) 12.8 % Low 19-41 [facility] Comment on above: Performed By: #### M , M100.400, M100.3000 #### [facility] [address] [place], [address] MCH (RBC) [Entitic mass] 30.6 pg Normal 27.0-32.0 [facility] Comment on above: Performed By: #### M 100.1999, M100.400, M100.3000 #### [facility] [address] [place], [address] MCHC (RBC) [Mass/Vol] 33.1 g/dL Normal 32-36 [facility] Comment on above: Performed By: #### M 100, .4000, M100.3000 #### [facility] [address] [place], [address] MCV (RBC) [Entitic vol] 92.5 fL Normal 80-94 [facility] Comment on above: Performed By: #### M , .400, M100.3000 #### [facility] [address] [place], [address] Monocytes/100 WBC (Bld) 10.0 % Normal 0-10 [facility] Comment on above: Performed By: #### M 100.1999, M100.400, M100.3000 #### [facility] [address] [place], [address] Neutrophils/100 WBC (Bld) 75.8 % High 47-70 [facility] Comment on above: Performed By: #### M 100, M100.400, M100.3000 #### [facility] [address] [place], [address] Nucleated RBC (Bld) [#/Vol] 0 10*3/uL Normal 0-5 [facility] Comment on above: Performed By: #### M 100, M1.400, M100.3000 #### [facility] [address] [place], [address] Platelet mean volume (Bld) [Entitic vol] 10.2 fL Normal 6.2-12.0 [facility] Comment on above: Performed By: #### M 100.1999, M100.400, M100.3000 #### [facility] [address] [place], [address] Platelets (Bld) [#/Vol] 165 10*3/uL Normal 150-450 [facility] Comment on above: Performed By: #### M 100, 00.400, M100.3000 #### [facility] [address] [place], [address] RBC (Bld) [#/Vol] 4.38 10*6/uL Low 4.6-6.2 [facility] Comment on above: Performed By: #### M , .400, M100.3000 #### [facility] [address] [place], [address] RDW SD 47.4 fl High 35.1-43.9 [facility] Comment on above: Performed By: #### M , M100.400, M100.3000 #### [facility] [address] [place], [address] WBC (Bld) [#/Vol] 11.0 10*3/uL Normal 4.4-11.0 [facility] Comment on above: Performed By: #### M , M100.400, M100.3000 #### [facility] [address] [place], [address] Carbon dioxide, total [Moles /volume] in Central venous bloodOrdered By: Lawrence Abad on 07-04-2025 CO2 [Moles/Vol] 22.3 mmol/L 21.0-32.0 [facility] Chloride assayOrdered By: Cedrick Abad on 07-04-2025 Chloride [Moles/Vol] 103 mmol/L 98-108 [facility] Electrocardiogram reportOrde red By: Dion Potter on 07-04-2025 EKG study [facility] Services [address] [place] [address] 12 Lead EKG 07/04/25 1010 MR#: [id number] Acct: [id number] Name: JOSEPH BROWN Rep #:[id number] : [...] Abnormal ECG Confirmed by CELESTE KATZ, DION ([id number]), development editor FELISHA DEAN ([id number]) on 07/07/2025 8:01:26 AM Referred By: Confirmed By: DION POTTER MD 07/07/25 0801 Date _ Dion Potter MD CC: Dr. Lawrence Abad MD; Dr. Sherice العلي MD ~ Signed [facility] Other Emergency Department Summary on 07-04-2025 Emergency Department Summary [facility] Medical Records Department [address] [place] [address] Emergency Department Summary 07/04/25 MR#: [id number] Acct: [id number] Name: JOSEPH BROWN Rep #: [id number] : 1955 69 From: Lawrence Abad MD [...] 2 brief syncopal episodes that he had. [facility] Medical History Obstructive sleep apnea Left [...] out d (more content not included)... Normal [facility] Eosinophil percentageOrdered By: Lawrence Abad on 07-04-2025 Eosinophils/100 WBC (Bld) 0.7 % 0-5 [facility] Erythrocyte distribution wid th ratioOrdered By: Lawrence Abad on 07-04-2025 Erythrocyte distribution width (RBC) [Ratio] 13.9 % 11.6-14.6 [facility] Erythrocyte distribution wid th standard deviationOrdered By: Lawrence Abad on 07-04-2025 Erythrocyte distribution width (RBC) [Ratio] 47.4 fl High 35.1-43.9 [facility] Glomerular filtration rate ( GFR) estimation/1.73 sq m using serum, plasma, or whole bOrdered By: Lawrence Abad on 07-04-2025 GFR/1.73 sq M.predicted among non-blacks MDRD (S/P/Bld) [Vol rate/Area] 93 mL/min/{1.73_m2} >60 [facility] Comment on above: mL/min/1.73m2 CKD-EP I Creatinine Equation (2020) Hematocrit Auto (Bld) [Volum e fraction]Ordered By: Lawrence Abad on 07-04-2025 Hematocrit (Bld) [Volume fraction] 40.5 % 40-54 [facility] Hemoglobin measurementOrdere d By: Lawrence Abad on 07-04-2025 Hemoglobin (Bld) [Mass/Vol] 13.4 g/dL 13.0-16.5 [facility] Immature granulocytes/100 WB C Auto (Bld)Ordered By: Lawrence Abad on 07-04-2025 Immature granulocytes/100 WBC (Bld) 0.500 % 0.0-0.9 [facility] Comment on above: IG% - Immature Granu locytes (promyelocytes, myelocytes and metamyelocytes) > 1% indicates that a LEFT SHIFT is Present. MCV (mean corpuscular volume ) determinationOrdered By: Lawrence Abad on 07-04-2025 MCV (RBC) [Entitic vol] 92.5 fL 80-94 [facility] Mean corpuscular hemoglobin (MCH) determinationOrdered By: Lawrence Abad on 07-04-2025 MCH (RBC) [Entitic mass] 30.6 pg 27.0-32.0 [facility] Mean corpuscular hemoglobin concentration (MCHC) determinationOrdered By: Lawrence Abad on 07-04-2025 MCHC (RBC) [Mass/Vol] 33.1 g/dL 32-36 [facility] Mean platelet volume determi nationOrdered By: Lawrence Aabd on 07-04-2025 Platelet mean volume (Bld) [Entitic vol] 10.2 fL 6.2-12.0 [facility] Monocyte percentageOrdered B y: Lawrence Abad on 07-04-2025 Monocytes/100 WBC (Bld) 10.0 % 0-10 [facility] Neutrophil percentageOrdered By: Lawrence Abad on 07-04-2025 Neutrophils/100 WBC (Bld) 75.8 % High 47-70 [facility] Nucleated red blood cell per centageOrdered By: Lawrence Abad on 07-04-2025 Nucleated RBC/100 WBC (Bld) [Ratio] 0 % 0-5 [facility] Platelet countOrdered By: Cedrick Abad on 07-04-2025 Platelets (Bld) [#/Vol] 165 10*3/uL 150-450 [facility] Potassium measurement (mass/ volume)Ordered By: Lawrence Abad on 07-04-2025 Potassium (Unsp spec) [Mass/Vol] 4.1 mmol/L 3.3-5.1 [facility] RBC Auto (Bld) [#/Vol]Ordere d By: Lawrence Abad on 07-04-2025 RBC (Bld) [#/Vol] 4.38 10*6/uL Low 4.6-6.2 [facility] Serum creatinine measurement (mass/volume)Ordered By: Lawrence Abad on 07-04-2025 Creatinine [Mass/Vol] 0.84 mg/dL 0.70-1.20 [facility] Serum glucose measurement (m ass/volume)Ordered By: Lawrence Abad on 07-04-2025 Glucose [Mass/Vol] 133 mg/dL High 70-99 [facility] Serum or plasma calcium merlin urement (mass/volume)Ordered By: Lawrence Abad on 07-04-2025 Calcium [Mass/Vol] 8.7 mg/dL 7.6-11.0 [facility] Serum or plasma urea nitroge n measurement (mass/volume)Ordered By: Lawrence Abad on 07-04-2025 Urea nitrogen [Mass/Vol] 13 mg/dL - [facility] Sodium levelOrdered By: Lawrence Abad on 07-04-2025 Sodium [Moles/Vol] 137 mmol/L 133-145 [facility] White blood cell (WBC) count Ordered By: Lawrence Abad on 07-04-2025 WBC (Bld) [#/Vol] 11.0 10*3/uL 4.4-11.0 [facility] Decalcification bone/plaqueo n 07-01-2025 Decalcification bone/plaque Patient Age/Sex Location Account Attending Physician JOSEPH BROWN 69/M [facility] [id number] Rita Saeed Specimen: [id number] Received: 07/01/25 Status: JAZMÍN Castillo Num: [id number] Spec Type: ETH TISS Subm Dr: Dr. [...] Entirely submitted in 1 cassette, following decalcification. [place] 07/01/2025 [facility]:[id number] Patient Age/Sex Location Account Attending Physician [facility]SEPH BROWN[facility] [id number] Rita Saeed Signed (signature on file) Dr. Theodore Haider MD 07/07/25 1600 Normal [facility] Comment on above: Performed By: #### M 100, M1.4000, M13000 #### [facility] [address] [place], [place], [id number] Anion gap in Serum or Plasma Ordered By: Haresh Johnson on 06-25-2025 Anion gap [Moles/Vol] 11 mmol/L 5-15 [facility] BUN/creatinine ratioOrdered By: Haresh Johnson on 06-25-2025 Urea nitrogen/Creatinine [Mass ratio] 20.6 mg/mg High 10-20 [facility] Basic Metabolic Profile (BMP )on 06-25-2025 BUN/CRE 20.6 RATIO High - [facility] Comment on above: Performed By: #### Rita 100, M100.400, M100.3000 #### [facility] [address] [place], [place], [address] Calcium [Mass/Vol] 9.0 mg/dL Normal 7.6-11.0 [facility] Comment on above: Performed By: #### M 100, .400, M100.3000 #### [facility] [address] [place], [address] Chloride [Moles/Vol] 106 mmol/L Normal 98-108 [facility] Comment on above: Performed By: #### M 100, .400, M100.3000 #### [facility] [address] [place], [address] CO2 [Moles/Vol] 23.6 mmol/L Normal 21.0-32.0 [facility] Comment on above: Performed By: #### M , , M100.3000 #### [facility] [address] [place], [address] Creatinine [Mass/Vol] 0.86 mg/dL Normal 0.70-1.20 [facility] Comment on above: Performed By: #### M , , M100.3000 #### [facility] [address] [place], [address] GAP 11 Normal 5-15 [facility] Comment on above: Performed By: #### M , , M100.3000 #### [facility] [address] [place], [address] GFR/1.73 sq M.predicted among non-blacks MDRD (S/P/Bld) [Vol rate/Area] 93 mL/min/{1.73_m2} Normal >60 [facility] Comment on above: Result Comment: mL/m in/1.73m2 CKD-EPI Creatinine Equation (2020) Performed By: #### M , .400, M100.3000 #### [facility] [address] [place], [address] Glucose [Mass/Vol] 92 mg/dL Normal 70-99 [facility] Comment on above: Performed By: #### M 100.1999, M100.4001, M100.3000 #### [facility] [address] [place], [address] Potassium [Moles/Vol] 4.4 mmol/L Normal 3.3-5.1 [facility] Comment on above: Result Comment: Hemo lysis present, Results??could be affected. ?? Performed By: #### M 100.1999, M100.4001, M100.3000 #### [facility] [address] [place], [address] Sodium [Moles/Vol] 141 mmol/L Normal 133-145 [facility] Comment on above: Performed By: #### M 100.1999, M100.4001, M100.3000 #### [facility] [address] [place], [address] Urea nitrogen [Mass/Vol] 18 mg/dL Normal 4-19 [facility] Comment on above: Performed By: #### M 100.1999, M100.4001, M100.3000 #### [facility] [address] [place], [address] CBC-Complete Blood Cnt No Di ffon 06-25-2025 Erythrocyte distribution width (RBC) [Ratio] 13.7 % Normal 11.6-14.6 [facility] Comment on above: Performed By: #### L 500.2500, L100.0500 #### [facility] [address] [place], [address] Hematocrit (Bld) [Volume fraction] 44.1 % Normal 40-54 [facility] Comment on above: Performed By: #### L 500.2500, L100.0500 #### [facility] [address] [place], [address] Hemoglobin (Bld) [Mass/Vol] 14.8 g/dL Normal 13.0-16.5 [facility] Comment on above: Performed By: #### L 500.2500, L100.0500 #### [facility] [address] [place], [address] MCH (RBC) [Entitic mass] 30.9 pg Normal 27.0-32.0 [facility] Comment on above: Performed By: #### L 500.2500, L100.0500 #### [facility] [address] [place], [address] MCHC (RBC) [Mass/Vol] 33.6 g/dL Normal 32-36 [facility] Comment on above: Performed By: #### L 500.2500, L100.0500 #### [facility] [address] [place], [address] MCV (RBC) [Entitic vol] 92.1 fL Normal 80-94 [facility] Comment on above: Performed By: #### L 500.2500, L100.0500 #### [facility] [address] [place], [address] Platelet mean volume (Bld) [Entitic vol] 10.6 fL Normal 6.2-12.0 [facility] Comment on above: Performed By: #### L 500.2500, L100.0500 #### [facility] [address] [place], [address] Platelets (Bld) [#/Vol] 227 10*3/uL Normal 150-450 [facility] Comment on above: Performed By: #### L 500.2500, L100.0500 #### [facility] [address] [place], [address] RBC (Bld) [#/Vol] 4.79 10*6/uL Normal 4.6-6.2 [facility] Comment on above: Performed By: #### L 500.2500, L100.0500 #### [facility] [address] [place], [address] RDW SD 46.2 fl High 35.1-43.9 [facility] Comment on above: Performed By: #### L 500.2500, L100.0500 #### [facility] [address] [place], [address] WBC (Bld) [#/Vol] 8.8 10*3/uL Normal 4.4-11.0 [facility] Comment on above: Performed By: #### L 500.2500, L100.0500 #### [facility] [address] [place], [address] Carbon dioxide, total [Moles /volume] in Central venous bloodOrdered By: Haresh Johnson on 06-25-2025 CO2 [Moles/Vol] 23.6 mmol/L 21.0-32.0 [facility] Chloride assayOrdered By: Ricky Johnson on 06-25-2025 Chloride [Moles/Vol] 106 mmol/L 98-108 [facility] Erythrocyte distribution wid th ratioOrdered By: Haresh Johnson on 06-25-2025 Erythrocyte distribution width (RBC) [Ratio] 13.7 % 11.6-14.6 [facility] Erythrocyte distribution wid th standard deviationOrdered By: Haresh Johnson on 06-25-2025 Erythrocyte distribution width (RBC) [Ratio] 46.2 fl High 35.1-43.9 [facility] Glomerular filtration rate ( GFR) estimation/1.73 sq m using serum, plasma, or whole bOrdered By: Haresh Johnson on 06-25-2025 GFR/1.73 sq M.predicted among non-blacks MDRD (S/P/Bld) [Vol rate/Area] 93 mL/min/{1.73_m2} >60 [facility] Comment on above: mL/min/1.73m2 CKD-EP I Creatinine Equation (2020) Hematocrit Auto (Bld) [Volum e fraction]Ordered By: Haresh Johnson on 06-25-2025 Hematocrit (Bld) [Volume fraction] 44.1 % 40-54 [facility] Hemoglobin measurementOrdere d By: Haresh Johnson on 06-25-2025 Hemoglobin (Bld) [Mass/Vol] 14.8 g/dL 13.0-16.5 [facility] MCV (mean corpuscular volume ) determinationOrdered By: Haresh Johnson on 06-25-2025 MCV (RBC) [Entitic vol] 92.1 fL 80-94 [facility] Mean corpuscular hemoglobin (MCH) determinationOrdered By: Haresh Johnson on 06-25-2025 MCH (RBC) [Entitic mass] 30.9 pg 27.0-32.0 [facility] Mean corpuscular hemoglobin concentration (MCHC) determinationOrdered By: Haresh Johnson on 06-25-2025 MCHC (RBC) [Mass/Vol] 33.6 g/dL 32-36 [facility] Mean platelet volume determi nationOrdered By: Haresh Johnson on 06-25-2025 Platelet mean volume (Bld) [Entitic vol] 10.6 fL 6.2-12.0 [facility] Platelet countOrdered By: Ricky Johnson on 06-25-2025 Platelets (Bld) [#/Vol] 227 10*3/uL 150-450 [facility] Potassium measurement (mass/ volume)Ordered By: Haresh Johnson on 06-25-2025 Potassium (Unsp spec) [Mass/Vol] 4.4 mmol/L 3.3-5.1 [facility] Comment on above: Hemolysis present, R esults could be affected. RBC Auto (Bld) [#/Vol]Ordere d By: Haresh Johnson on 06-25-2025 RBC (Bld) [#/Vol] 4.79 10*6/uL 4.6-6.2 [facility] Serum creatinine measurement (mass/volume)Ordered By: Haresh Johnson on 06-25-2025 Creatinine [Mass/Vol] 0.86 mg/dL 0.70-1.20 [facility] Serum glucose measurement (m ass/volume)Ordered By: Haresh Johnson on 06-25-2025 Glucose [Mass/Vol] 92 mg/dL 70-99 [facility] Serum or plasma calcium merlin urement (mass/volume)Ordered By: Haresh Johnson on 06-25-2025 Calcium [Mass/Vol] 9.0 mg/dL 7.6-11.0 [facility] Serum or plasma urea nitroge n measurement (mass/volume)Ordered By: Haresh Johnson on 06-25-2025 Urea nitrogen [Mass/Vol] 18 mg/dL 4-19 [facility] Sodium levelOrdered By: Vivian us Alex on 06-25-2025 Sodium [Moles/Vol] 141 mmol/L 133-145 [facility] White blood cell (WBC) count Ordered By: Haresh Johnson on 06-25-2025 WBC (Bld) [#/Vol] 8.8 10*3/uL 4.4-11.0 [facility] CBC (H/H, RBC, INDICES, WBC, PLT)on 06-20-2025 Erythrocyte distribution width (RBC) [Ratio] 13.3 % Normal 11.0-15.0 [facility] Comment on above: Performed By: #### 7 600, 337, 99154 #### [facility] [place] [address] [employer] Operator: Anton Bello MD Hematocrit (Bld) [Volume fraction] 46.4 % Normal 38.5-50.0 [facility] Comment on above: Performed By: #### 7 600, 175, 07306 #### [facility] [place] [address] [employer] Operator: Anton Bello MD Hemoglobin (Bld) [Mass/Vol] 15.3 g/dL Normal 13.2-17.1 [facility] Comment on above: Performed By: #### 7 600, 175, 60845 #### [facility] [place] [address] [employer] Operator: Anton Bello MD MCH (RBC) [Entitic mass] 31.5 pg Normal 27.0-33.0 [facility] Comment on above: Performed By: #### 7 600, 175, 87285 #### [facility] of [place] [address] [employer] Operator: Anton Bello MD MCHC (RBC) [Mass/Vol] 33.0 [...] condition. Performed By: #### 7 600, 175, 88018 #### [facility] [place] [address] [employer] Operator: Anton Bello MD MCV (RBC) [Entitic vol] 95.5 fL Normal 80.0-100.0 [facility] Comment on above: Performed By: #### 7 600, 1758, 44463 #### [facility] of [place] [address] [employer] Operator: Anton Bello MD Platelet mean volume (Bld) [Entitic vol] 10.5 fL Normal 7.5-12.5 [facility] Comment on above: Performed By: #### 7 600, 1758, 54527 #### [facility] [place] [address] [employer] Operator: Anton Bello MD Platelets (Bld) [#/Vol] 221 10*3/uL Normal 140-400 [facility] Comment on above: Performed By: #### 7 600, 1758, 96417 #### [facility] [place] [address] [employer] Operator: Anton Bello MD RBC (Bld) [#/Vol] 4.86 10*6/uL Normal 4.20-5.80 [facility] Comment on above: Performed By: #### 7 600, 1758, 34568 #### [facility] of [address], [address] [place] [address] [employer] Operator: Anton Bello MD WBC (Bld) [#/Vol] 8.6 10*3/uL Normal 3.8-10.8 [facility] Comment on above: Performed By: #### 7 600, 1759, 97112 #### [facility] of [address], [address] [place] [address] [employer] Operator: Anton Bello MD [facility] [place] [facility] [place] 06-20-2025 Albumin [Mass/Vol] 4.3 g/dL Normal 3.6-5.1 [facility] Comment on above: Performed By: #### 7 600, 175, 10667 #### [facility] of [place] [address] [employer] Operator: Anton Bello MD Albumin/Globulin [Mass ratio] 1.8 {ratio} Normal 1.0-2.5 [facility] Comment on above: Performed By: #### 7 600, 175, 18043 #### [facility] of [address], [address] [place] [address] [employer] Operator: Anton Bello MD ALP [Catalytic activity/Vol] 62 U/L Normal 35-144 [facility] Comment on above: Performed By: #### 7 600, 175, 32957 #### [facility] [place] [address] [employer] Operator: Anton Bello MD ALT [Catalytic activity/Vol] 15 U/L Normal 9-46 [facility] Comment on above: Performed By: #### 7 600, 175, 18313 #### [facility] [place] [address] [employer] Operator: Anton Bello MD AST [Catalytic activity/Vol] 19 U/L Normal 10-35 [facility] Comment on above: Performed By: #### 7 600, 175, 20341 #### [facility] [place] [address] [employer] Operator: Anton Bello MD Bilirubin [Mass/Vol] 0.7 mg/dL Normal 0.2-1.2 [facility] Comment on above: Performed By: #### 7 600, 175, 49180 #### [facility] [address], [address] [place] [address] [employer] Operator: Anton Bello MD BUN/CREATININE RATIO SEE NOTE: Normal 6-22 [facility] Comment on above: Result Comment: Not Reported: BUN and Creatinine are within reference range. Performed By: #### 7 600, 1758, 99815 #### [facility] [address], [address] [place] [address] [employer] Operator: Anton Bello MD Calcium [Mass/Vol] 8.7 mg/dL Normal 8.6-10.3 [facility] Comment on above: Performed By: #### 7 600, 1758, #### [facility] [address], [address] [place] [address] [employer] Operator: Anton Bello MD Chloride [Moles/Vol] 106 mmol/L Normal 98-110 [facility] Comment on above: Performed By: #### 7 600, 1758, 40853 #### [facility] [place] [address] [employer] Operator: Anton Bello MD CO2 [Moles/Vol] 26 mmol/L Normal 20-32 [facility] Comment on above: Performed By: #### 7 600, 1758, 78909 #### [facility] [place] [address] [employer] Operator: Anton Bello MD Creatinine [Mass/Vol] 0.91 mg/dL Normal 0.70-1.28 [facility] Comment on above: Performed By: #### 7 600, 1758, 88277 #### [facility] [place] [address] [employer] Operator: Anton Bello MD GFR/1.73 sq M.predicted among non-blacks MDRD (S/P/Bld) [Vol rate/Area] 90 mL/min/{1.73_m2} Normal > OR = 60 [facility] Comment on above: Performed By: #### 7 600, 175, 64190 #### [facility] of [address], [address] [place] [address] [employer] Operator: Anton Bello MD Globulin (S) [Mass/Vol] 2.4 g/dL Normal 1.9-3.7 [facility] Comment on above: Performed By: #### 7 600, 175, 26723 #### [facility] of [address], [address] [place] [address] [employer] Operator: Anton Bello MD Glucose [Mass/Vol] 74 mg/dL Normal 65-99 [facility] Comment on above: Result Comment: Fasting reference interval Performed By: #### 7 600, 1758, 46896 #### [facility] of [address], [address] [place] [address] [employer] Operator: Anton Bello MD Potassium [Moles/Vol] 4.4 mmol/L Normal 3.5-5.[address] [facility] Comment on above: Performed By: #### 7 600, 175, 97598 #### [facility] of [place] [address] [employer] Operator: Anton Bello MD Protein [Mass/Vol] 6.7 g/dL Normal 6.1-8.1 [facility] Comment on above: Performed By: #### 7 600, 175, 52458 #### [facility] of [address], [address] [place] [address] [employer] Operator: Anton Bello MD Sodium [Moles/Vol] 142 mmol/L Normal 135-146 [facility] Comment on above: Performed By: #### 7 600, 175, 37342 #### [facility] of [place] [address] [employer] Operator: Anton Bello MD Urea nitrogen [Mass/Vol] 20 mg/dL Normal 7-25 [facility] Comment on above: Performed By: #### 7 600, 175, 37128 #### [facility] [address], [address] [place] [address] [employer] Operator: Anton Bello MD LIPID PANEL, [facility] Cholesterol [Mass/Vol] 144 mg/dL Normal <200 [facility] Comment on above: Order Comment: 0; 0; 0 Performed By: #### 7 600, 175, 27060 #### [facility] [address], [address] [place] [address] [employer] Operator: Anton Bello MD Cholesterol in HDL [Mass/Vol] 51 mg/dL Normal > OR = 40 [facility] Comment on above: Order Comment: 0; 0; 0 Performed By: #### 7 600, 175, 55024 #### [facility] [address], [address] [place] [address] [employer] Operator: Anton Bello MD Cholesterol in LDL [Mass/Vol] [...] LDL-C. Ivan LARSON et al. SHEILA. 2013;310(19): 1682-8155 ([email or web address]) Performed By: #### 7 600, 175, 08546 #### [facility] [address], [address] [place] [address] [employer] Operator: Anton Bello MD Cholesterol.total/Choles terol in HDL [Mass ratio] 2.8 {ratio} Normal <5.0 [facility] Comment on above: Order Comment: 0; 0; 0 Performed By: #### 7 600, 1759, 13996 #### [facility] [address], [address] [place] [address] [employer] Operator: Anton Bello MD NON HDL CHOLESTEROL 93 mg/dL (calc) Normal <130 [facility] Comment on above: Order Comment: 0; 0; 0 Result Comment: For patients with diabetes plus 1 major ASCVD risk factor, treating to a non-HDL-C goal of <100 mg/dL (LDL-C of <70 mg/dL) is considered a therapeutic option. Performed By: #### 7 600, 1759, 00131 #### [facility] [address], [address] [place] [address] [employer] Operator: Anton Bello MD Triglyceride [Mass/Vol] 108 mg/dL Normal <150 [facility] Comment on above: Order Comment: 0; 0; 0 Performed By: #### 7 600, 1759, 23501 #### [facility] [address], [address] [place] [address] [employer] Operator: Anton Bello MD ED Provider Noteon ED [...] for the entirety of this encounter. HPI oJseph Brown is a 69 y.o. male who [...] Family History[3] SOCIAL HISTORY Social History[4] SCREENINGS [place] Coma Scale Best Eye Response: Spontaneous Best [...] (electronically signed) Em (more content not included)... [facility] ED Provider Note Emergency Department Encounter [facility] ED Patient: Joseph Brown : [...] Solutions Marjorie Sears MD 06/09/25 1534 Normal [facility] CBC (HEMOGRAM)on 05-22-2025 Erythrocyte distribution width (RBC) [Ratio] 14.0 % Normal 11.5-15.0 [facility] Comment on above: Performed By: #### L AB294 ####[employer] Operator: HAILEY HERNANDEZ ([phone])[facility] (SBHLAB)[address] Hematocrit (Bld) [Volume fraction] 43.3 % Normal 40.0-52.0 [facility] Comment on above: Performed By: #### L AB294 ####[employer] Operator: HAILEY GAITANLUCERO ([phone])[facility] MARTINEZRAN (SBHLAB)[address] Hemoglobin (Bld) [Mass/Vol] 14.2 g/dL Normal 13.0-18.0 [facility] Comment on above: Performed By: #### L AB294 ####[employer] Operator: HAILEY GAITANLUCERO ([phone])[facility]ITAL[facility]ITALRaoul (SBHLAB)[address] MCH (RBC) [Entitic mass] 30.7 pg Normal 26.0-34.0 [facility] Comment on above: Performed By: #### L AB294 ####[employer] Operator: HAILEY HERNANDEZ ([phone])[facility]ARTINEZZ[facility] CLINICRaoul (SBHLAB)[address] MCHC 32.8 % Normal 30.5-36.0 [facility] Comment on above: Performed By: #### L AB294 ####[employer] Operator: HAILEY HERNANDEZ ([phone])[facility]ITAL[facility]INEZZ[facility] CLINICRa[facility] (SBHLAB)[address] [place] [address] MCV (RBC) [Entitic vol] 93.5 fL Normal 77.0-99.0 [facility] Comment on above: Performed By: #### L AB294 ####[employer] Operator: HAILEY HERNANDEZ ([phone])[facility] (SBHLAB)[address] Platelet mean volume (Bld) [Entitic vol] 10.4 fL Normal 9.0-12.7 [facility] Comment on above: Performed By: #### L AB294 ####[employer] Operator: HAILEY HERNANDEZ ([phone])[facility]N (SBHLAB)[address] Platelets (Bld) [#/Vol] 184 10*3/uL Normal 140-440 [facility] Comment on above: Performed By: #### L AB294 ####[employer] Operator: HAILEY HERNANDEZ ([phone])[facility] (SBHLAB)[address] RBC (Bld) [#/Vol] 4.63 10*6/uL Normal 4.40-5.90 [facility] Comment on above: Performed By: #### L AB294 ####[employer] Operator: HAILEY HERNANDEZ ([phone])[facility] (SBHLAB)[address] [place] [address] WBC (Bld) [#/Vol] 8.2 10*3/uL Normal 3.6-10.7 [facility] Comment on above: Performed By: #### L AB294 ####[employer] Operator: HAILEY HERNANDEZ ([phone])[facility] ([facility])[address] [place] [address] CBC panel Auto (Bld)on 05-22 Erythrocyte distribution width (RBC) [Ratio] 14 % 11.5 - 15.0 % [facility] Hematocrit (Bld) [Volume fraction] 43.3 % 40.0 - 52.0 % [facility] Hemoglobin (Bld) [Mass/Vol] 14.2 g/dL 13.0 - 18.0 g/dL [facility] Interpretation and review of laboratory results Normal [facility] MCH (RBC) [Entitic mass] 30.7 pg 26. 0 - 34.0 pg [facility] MCHC (RBC) [Mass/Vol] 32.8 % 30.5 - 36.0 % [facility] MCV (RBC) [Entitic vol] 93.5 fL 77.0 - 99.0 fL [facility] Platelet mean volume (Bld) [Entitic vol] 10.4 fL 9.0 - 12.7 fL [facility] Platelets (Bld) [#/Vol] 184 10*3/uL 140 - 440 10*3/uL [facility] RBC (Bld) [#/Vol] 4.63 10*6/uL 4.40 - 5.9 0 10*6/uL [facility] WBC (Bld) [#/Vol] 8.2 10*3/uL 3.6 - 10.7 10*3/uL [facility] COMPREHENSIVE METABOLIC PANE [place] 05-22-2025 Albumin [Mass/Vol] 3.5 g/dL Normal 3.4-4.8 [facility] Comment on above: Performed By: #### L AB17, LAB18 ####[employer] Operator: HAILEY HERNANDEZ ([phone])[facility] [place] (SBHLAB)[address] ALP [Catalytic activity/Vol] 59 U/L Normal 40-150 [facility] Comment on above: Performed By: #### L AB17, LAB18 ####[employer] Operator: HAILEY HERNANDEZ ([phone])[facility] (SBHLAB)[address] ALT [Catalytic activity/Vol] 19 U/L Normal <40 [facility] Comment on above: Performed By: #### L AB17, LAB18 ####[employer] Operator: HAILEY HERNANDEZ ([phone])[facility] [place] (SBHLAB)[address] Anion gap [Moles/Vol] 8 mmol/L Normal 3-13 [facility] Comment on above: Performed By: #### L AB17, LAB18 ####[employer] Operator: HAILEY HERNANDEZ ([phone])[facility] [place] (SBHLAB)[address] AST [Catalytic activity/Vol] 23 U/L Normal <34 [facility] Comment on above: Performed By: #### L AB17, LAB18 ####[employer] Operator: HAILEY HERNANDEZ ([phone])[facility] [place] (SBHLAB)[address] Bilirubin [Mass/Vol] 0.4 mg/dL Normal <1.2 [facility] Comment on above: Performed By: #### L AB17, LAB18 ####[employer] Operator: HAILEY HERNANDEZ ([phone])[facility] [place] (SBHLAB)[address] Calcium [Mass/Vol] 8.7 mg/dL Low 8.8-10.0 [facility] Comment on above: Performed By: #### L AB17, LAB18 ####[employer] Operator: HAILEY HERNANDEZ ([phone])[facility] [place] (SBHLAB)[address] Chloride [Moles/Vol] 112 mmol/L High 98-107 [facility] Comment on above: Performed By: #### L AB17, LAB18 ####[employer] Operator: HAILEY HERNANDEZ ([phone])[facility] [place] (SBHLAB)[address] CO2 [Moles/Vol] 22 mmol/L Low 23-31 [facility] Comment on above: Performed By: #### L AB17, LAB18 ####[employer] Operator: HAILEY HERNANDEZ ([phone])[facility] [place] (SBHLAB)[address] Creatinine [Mass/Vol] 0.83 mg/dL Normal 0.72-1.[address] [facility] Comment on above: Performed By: #### L AB17, LAB18 ####[employer] Operator: HAILEY HERNANDEZ ([phone])[facility] [place] (SBHLAB)[address] GLOMERULAR FILTRATION RATE ML/MIN/1.73 SQ M.PREDICTED >90.0 Normal >60.0 [facility] Comment on above: Result Comment: Calc ulation based on the Chronic Kidney Disease Epidemiology Collaboration (CKD-EPI) equation refit without adjustment for race Performed By: #### L AB17, LAB18 ####[employer] Operator: HAILEY HERNANDEZ ([phone])[facility] [place] (SBHLAB)[address] [place] [address] [place] Glucose [Mass/Vol] 101 mg/dL Normal 82-115 [facility] Comment on above: Performed By: #### L AB17, LAB18 ####[employer] Operator: HAILEY HERNANDEZ ([phone])[facility] (SB[facility]AB)[address] Potassium [Moles/Vol] 4.5 mmol/L Normal 3.5-5.[address] [facility] Comment on above: Result Comment: [facility] potassium values may be up to 0.5 mmol/L lower than serum values. Performed By: #### L AB17, LAB18 ####[employer] Operator: HAILEY HERNANDEZ ([phone])[facility] (SBHLAB)[address] Protein [Mass/Vol] 6.4 g/dL Normal 6.4-8.3 [facility] Comment on above: Performed By: #### L AB17, LAB18 ####[employer] Operator: HAILEY HERNANDEZ ([phone])[facility] (SB[facility])[address] Sodium [Moles/Vol] 142 mmol/L Normal 136-145 [facility] Comment on above: Performed By: #### L AB17, LAB18 ####[employer] Operator: HAILEY HERNANDEZ ([phone])[facility] (SBHLAB)[address] Urea nitrogen [Mass/Vol] 19 mg/dL Normal 9-23 [facility] Comment on above: Performed By: #### L AB17, LAB18 ####Interlocking Tower Operator: HAILEY HERNANDEZ ([phone])[facility] (SBHLAB)[address] Comprehensive metabolic 1998 panelon 05-22-2025 Albumin [Mass/Vol] 3.5 g/dL 3.4 - 4.8 g/dL [facility] ALP [Catalytic activity/Vol] 59 U/L 40 - 150 U/L [facility] ALT [Catalytic activity/Vol] 19 U/L NINF - 40 U/L [facility] Anion gap [Moles/Vol] 8 mmol/L 3 - 13 mmol/L [facility] AST [Catalytic activity/Vol] 23 U/L NINF - 34 U/L [facility] Bilirubin [Mass/Vol] 0.4 mg/dL NINF - 1.2 mg/dL [facility] Calcium [Mass/Vol] 8.7 mg/dL Low 8.8 - 10. 0 mg/dL [facility] Chloride [Moles/Vol] 112 mmol/L High 98 - 10 7 mmol/L [facility] CO2 [Moles/Vol] 22 mmol/L Low 23 - 31 mmol/L [facility] Creatinine [Mass/Vol] 0.83 mg/dL 0.72 - 1.25 mg/dL [facility] GFR/1.73 sq M.predicted (S/P/Bld) [Vol rate/Area] - PINF [facility] Comment on above: Calculation based on the Chronic Kidney Disease Epidemiology Collaboration (CKD-EPI) equation refit without adjustment for race Glucose [Mass/Vol] 101 mg/dL 82 - 115 mg/dL [facility] Potassium [Moles/Vol] 4.5 mmol/L 3.5 - 5.1 mmol/L [facility] Comment on above: Plasma potassium frank ues may be up to 0.5 mmol/L lower than serum values. Protein [Mass/Vol] 6.4 g/dL 6.4 - 8.3 g/dL [facility] Sodium [Moles/Vol] 142 mmol/L 136 - 145 mmol/L [facility] Urea nitrogen [Mass/Vol] 19 mg/dL 9 - 23 mg/d L [facility] HEMOGLOBIN A1Con 05-22-2025 Glucose [Mass/Vol] 108 mg/dL Normal [facility] Comment on above: Result Comment: [place] COMMENTS: HbA1c values of 5.7-6.4 percent indicate an increased risk for developing diabetes mellitus. HbA1c values greater than or equal to 6.5 percent are diagnostic of diabetes mellitus. For diagnosis of diabetes in individuals without unequivocal hyperglycemia, results should be confirmed by repeat testing. Performed By: #### L AB90 ####Interlocking Tower Operator: HAILEY HERNANDEZ ([phone])[facility] ([facility] [place] [address] HEMOGLOBIN A1C 5.4 %HbA1C Normal <5.7 [facility] Comment on above: Result Comment: Norm al less than 5.7% Prediabetes 5.7% to 6.4% Diabetes 6.5% or higher --HgbA1C levels may not be accurate in patients who have renal disease, received recent blood transfusions, are anemic, or who have dyshemoglobinemia. Performed By: #### L AB90 ####Interlocking Tower Operator: HAILEY HERNANDEZ ([phone])[facility] (SBHLAB)[address] LIPID PANELon 05-22-2025 Cholesterol [Mass/Vol] 139 mg/dL Normal <200 [facility] Comment on above: Performed By: #### L AB17, LAB18 ####Interlocking Tower Operator: HAILEY HERNANDEZ ([phone])[facility] (SB[facility])[address] Cholesterol in HDL [Mass/Vol] 44 mg/dL Low >=60 [facility] Comment on above: Performed By: #### L AB17, LAB18 ####Interlocking Tower Operator: HAILEY HERNANDEZ ([phone])[facility] (SBHLAB)[address] Cholesterol.total/Choles terol in HDL [Mass ratio] 3 {ratio} Normal [facility] Comment on above: Result Comment: Ref Range: < 3 Low Risk for CHD 3-6 Mod Risk for CHD > 6 High Risk for CHD Performed By: #### L AB17, LAB18 ####Interlocking Tower Operator: HAILEY HERNANDEZ ([phone])[facility] ([facility])[address] LOW DENSITY LIPOPROTEIN 77 mg/dL Normal 0-<100 [facility] Comment on above: Performed By: #### L AB17, LAB18 ####Interlocking Tower Operator: HAILEY HERNANDEZ ([phone])[facility] ([facility])[address] NON-HDL CHOLESTEROL, CALCULATED 95 Normal <130 [facility] Comment on above: Performed By: #### L AB17, LAB18 ####Interlocking Tower Operator: HAILEY HERNANDEZ ([phone])[facility] (SBHLAB)[address] Triglyceride [Mass/Vol] 92 mg/dL Normal <150 [facility] Comment on above: Performed By: #### L AB17, LAB18 ####Interlocking Tower Operator: HAILEY HERNANDEZ ([phone])[facility] (SBHLAB)[address] VERY LOW DENSITY LIPOPROTEIN, CALCULATED 18 mg/dL Normal <=30 [facility] Comment on above: Performed By: #### L AB17, LAB18 ####Interlocking Tower Operator: HAILEY HERNANDEZ ([phone])[facility] (SBHLAB)[address] Laboratory - Chemistry and C hemistry - challengeon 05-22-2025 Average glucose Estimated from glycated hemoglobin (Bld) [Mass/Vol] 108 mg/dL [facility] Laboratory - Hematology and Cell countson 05-22-2025 HbA1c (Bld) [Mass fraction] 5.4 % [facility] Comment on above: Normal less than 5.7 % Prediabetes 5.7% to 6.4% Diabetes 6.5% or higher --HgbA1C levels may not be accurate in patients who have renal disease, received recent blood transfusions, are anemic, or who have dyshemoglobinemia. Lipid 1996 panelon 5 Cholesterol [Mass/Vol] 139 mg/dL NINF - 200 mg/dL [facility] [employer] Cholesterol in HDL [Mass/Vol] 44 mg/dL Low 60 - PINF mg/dL [facility] [employer] Cholesterol in LDL [Mass/Vol] 77 mg/dL 0 - <100 [facility] [employer] Cholesterol.total/Choles terol in HDL [Mass ratio] 3 {ratio} [facility] Comment on above: Ref Range: < 3 Low Risk for CHD 3-6 Mod Risk for CHD > 6 High Risk for CHD NON-HDL CHOLESTEROL, CALCULATED 95 NINF - 130 [facility] [employer] Triglyceride [Mass/Vol] 92 mg/dL NINF - 150 mg/dL [facility] VERY LOW DENSITY LIPOPROTEIN, CALCULATED 18 mg/dL NINF - 30 mg/dL [facility] No Panel Informationon 05-22 HbA1c values of 5.7-6.4 percent indicate an increased risk for developing diabetes mellitus. HbA1c values greater than or equal to 6.5 percent are diagnostic of diabetes mellitus. For diagnosis of diabetes in individuals without unequivocal hyperglycemia, results should be confirmed by repeat testing. [facility] Interpretation and review of laboratory results Abnormal [facility] Nursing Noteon 05-22-2025 Nursing Note Pt given and educated on discharge instructions. Pt and family have no questions at this time. IV removed. Pt discharged to private vehicle. Normal [facility] Progress Noteon 05-22-2025 Progress Note OCCUPATIONAL THERAPY [facility] Name/MRN: Joseph Brown ([id number]) Date: 05/22/2025 Therapy eval and treat orders received for if Elena < 100 and below baseline. Elena noted to be 100 this admission. Will discontinue orders at this time. Should pt demo a change in status, please reorder OT services. Mikie Chavira, OT Normal [facility] Progress Note PHYSICAL THERAPY [facility] Name/MRN: Joseph Brown ([id number]) Date: 05/22/2025 Chart review completed, pt currently has a Elena score of 100 with PT orders to eval and treat with Elena score <100. Will complete current orders. Please re-order if status changes. Lissette Cruz, PT Normal [facility] CBC W Auto Differential pane l (Bld)on 05-21-2025 Basophils (Bld) [#/Vol] 0 10*3/uL 0.0 - 0.2 10*3/uL [facility] Basophils/100 WBC (Bld) 0.5 % 0.0 - 2.0 % [facility] Eosinophils (Bld) [#/Vol] 0.5 10*3/uL 0.0 - 0.5 10*3/uL [facility] Eosinophils/100 WBC (Bld) 5.2 % 0.0 - 6.0 % [facility] Erythrocyte distribution width (RBC) [Ratio] 13.8 % 11.5 - 15.0 % [facility] Hematocrit (Bld) [Volume fraction] 41.1 % 40.0 - 52.0 % [facility] Hemoglobin (Bld) [Mass/Vol] 13.7 g/dL 13.0 - 18.0 g/dL [facility] Immature granulocytes (Bld) [#/Vol] 0 10*3/uL NINF - 0.1 10*3/uL [facility] Immature granulocytes/100 WBC (Bld) 0.5 % 0.0 - 2.0 % [facility] Interpretation and review of laboratory results Normal [facility] Lymphocytes (Bld) [#/Vol] 1.8 10*3/uL 1.0 - 4.3 10*3/uL [facility] Lymphocytes/100 WBC (Bld) 20.8 % 15.0 - 45.0 % [facility] MCH (RBC) [Entitic mass] 30.9 pg 26. 0 - 34.0 pg [facility] MCHC (RBC) [Mass/Vol] 33.3 % 30.5 - 36.0 % [facility] MCV (RBC) [Entitic vol] 92.8 fL 77.0 - 99.0 fL [facility] Monocytes (Bld) [#/Vol] 0.8 10*3/uL 0.0 - 0.9 10*3/uL [facility] Monocytes/100 WBC (Bld) 8.7 % 5.0 - 13.0 % [facility] Neutrophils (Bld) [#/Vol] 5.6 10*3/uL 1.8 - 7.5 10*3/uL [facility] Neutrophils/100 WBC (Bld) 64.3 % 38.0 - 82.0 % [facility] Nucleated RBC/100 WBC (Bld) [Ratio] 0 % [facility] Platelet mean volume (Bld) [Entitic vol] 10.6 fL 9.0 - 12.7 fL [facility] Platelets (Bld) [#/Vol] 179 10*3/uL 140 - 440 10*3/uL [facility] RBC (Bld) [#/Vol] 4.43 10*6/uL 4.40 - 5.9 0 10*6/uL [facility] WBC (Bld) [#/Vol] 8.7 10*3/uL 3.6 - 10.7 10*3/uL [facility] CBC WITH AUTO DIFFERENTIALon 05-21-2025 Basophils (Bld) [#/Vol] 0.0 10*3/uL Normal 0.0-0.2 [facility] Comment on above: Performed By: #### L [id number] ####Interlocking Tower Operator: HAILEY HERNANDEZ ([phone])[facility] (SBHLAB)[address] Basophils/100 WBC (Bld) 0.5 % Normal 0.0-2.0 [facility] Comment on above: Performed By: #### L [id number] ####Interlocking Tower Operator: HAILEY HERNANDEZ ([phone])[facility] (SBHLAB)[address] Eosinophils (Bld) [#/Vol] 0.5 10*3/uL Normal 0.0-0.5 [facility] Comment on above: Performed By: #### L [id number] ####Interlocking Tower Operator: HAILEY HERNANDEZ ([phone])[facility] (SBHLAB)[address] Eosinophils/100 WBC (Bld) 5.2 % Normal 0.0-6.0 [facility] Comment on above: Performed By: #### L [id number] ####Interlocking Tower Operator: HAILEY HERNANDEZ ([phone])[facility] (SBHLAB)[address] Erythrocyte distribution width (RBC) [Ratio] 13.8 % Normal 11.5-15.0 [facility] Comment on above: Performed By: #### L [id number] ####Interlocking Tower Operator: HAILEY HERNANDEZ ([phone])[facility] (SBHLAB)[address] Hematocrit (Bld) [Volume fraction] 41.1 % Normal 40.0-52.0 [facility] Comment on above: Performed By: #### L [id number] ####Interlocking Tower Operator: HAILEY HERNANDEZ ([phone])[facility] (SBHLAB)[address] Hemoglobin (Bld) [Mass/Vol] 13.7 g/dL Normal 13.0-18.0 [facility] Comment on above: Performed By: #### L [id number] ####Interlocking Tower Operator: HAILEY HERNANDEZ ([phone])[facility] (SBHLAB)[address] IMMATURE GRANS % 0.5 % Normal 0.0-2.0 [facility] Comment on above: Performed By: #### L [id number] ####Interlocking Tower Operator: HAILEY HERNANDEZ ([phone])[facility] (SBAB)[address] IMMATURE GRANS ABSOLUTE 0.0 10*3/uL Normal <0.1 [facility] Comment on above: Performed By: #### L [id number] ####Interlocking Tower Operator: HAILEY HERNANDEZ ([phone])[facility] (SBHLAB)[address] Lymphocytes (Bld) [#/Vol] 1.8 10*3/uL Normal 1.0-4.3 [facility] Comment on above: Performed By: #### L [id number] ####Interlocking Tower Operator: HAILEY HERNANDEZ ([phone])[facility] (SBHLAB)[address] [place] [address] Lymphocytes/100 WBC (Bld) 20.8 % Normal 15.0-45.0 [facility] Comment on above: Performed By: #### L [id number] ####Interlocking Tower Operator: HAILEY HERNANDEZ ([phone])[facility] (SB[facility])[address] MCH (RBC) [Entitic mass] 30.9 pg Normal 26.0-34.0 [facility] Comment on above: Performed By: #### L [id number] ####Interlocking Tower Operator: HAILEY HERNANDEZ ([phone])[facility] (SBHLAB)[address] MCHC 33.3 % Normal 30.5-36.0 [facility] Comment on above: Performed By: #### L [id number] ####Interlocking Tower Operator: HAILEY GAITANLUCERO ([phone])[facility] (SBHLAB)[address] MCV (RBC) [Entitic vol] 92.8 fL Normal 77.0-99.0 [facility] Comment on above: Performed By: #### L [id number] ####Interlocking Tower Operator: HAILEY GAITANLUCERO ([phone])[facility] (SBHLAB)[address] Monocytes (Bld) [#/Vol] 0.8 10*3/uL Normal 0.0-0.9 [facility] Comment on above: Performed By: #### L [id number] ####Interlocking Tower Operator: HAILEY GAITANLUCERO ([phone])[facility] [place] ([facility])[address] Monocytes/100 WBC (Bld) 8.7 % Normal 5.0-13.0 [facility] Comment on above: Performed By: #### L [id number] ####Interlocking Tower Operator: HAILEY GAITANLUCERO ([phone])[facility] (SBHLAB)[address] NEUTROPHILS ABSOLUTE 5.6 10*3/uL Normal 1.8-7.[address] [facility] Comment on above: Performed By: #### L [id number] ####Interlocking Tower Operator: HAILEY GAITANLUCERO ([phone])[facility] [place] ([facility])[address] Neutrophils/100 WBC (Bld) 64.3 % Normal 38.0-82.0 [facility] Comment on above: Performed By: #### L [id number] ####Interlocking Tower Operator: HAILEY HERNANDEZ ([phone])[facility] [place] ([facility])[address] NRBC 0.0 /100 WBCs Normal 0.0-2.0 [facility] Comment on above: Performed By: #### L [id number] ####Interlocking Tower Operator: HAILEY HERNANDEZ ([phone])[facility] (SBHLAB)[address] Platelet mean volume (Bld) [Entitic vol] 10.6 fL Normal 9.0-12.7 [facility] Comment on above: Performed By: #### L [id number] ####Interlocking Tower Operator: HAILEY HERNANDEZ ([phone])[facility] (SBHLAB)[address] Platelets (Bld) [#/Vol] 179 10*3/uL Normal 140-440 [facility] Comment on above: Performed By: #### L [id number] ####Interlocking Tower Operator: HAILEY HERNANDEZ ([phone])[facility] (SB[facility]AB)[address] RBC (Bld) [#/Vol] 4.43 10*6/uL Normal 4.40-5.90 [facility] Comment on above: Performed By: #### L [id number] ####Interlocking Tower Operator: HAILEY HERNANDEZ ([phone])[facility] (SB[facility])[address] WBC (Bld) [#/Vol] 8.7 10*3/uL Normal 3.6-10.7 [facility] Comment on above: Performed By: #### L [id number] ####Interlocking Tower Operator: HAILEY HERNANDEZ ([phone])[facility] [place] ([facility]AB)[address] COMPREHENSIVE METABOLIC PANE [place] 05-21-2025 Albumin [Mass/Vol] 3.5 g/dL Normal 3.4-4.8 [facility] Comment on above: Performed By: #### L [id number], LAB17, [id number] ####Interlocking Tower Operator: HAILEY HERNANDEZ ([phone])[facility] [place] (SB[facility]AB)[address] [place] [address] [place] ALP [Catalytic activity/Vol] 66 U/L Normal 40-150 [facility] Comment on above: Performed By: #### L [id number], LAB17, [id number] ####Interlocking Tower Operator: HAILEY HERNANDEZ ([phone])[facility] (SBHLAB)[address] [place] [address] [place] ALT [Catalytic activity/Vol] 18 U/L Normal <40 [facility] Comment on above: Performed By: #### L [id number], LAB17, [id number] ####Interlocking Tower Operator: HAILEY HERNANDEZ ([phone])[facility] (SBHLAB)[address] Anion gap [Moles/Vol] 8 mmol/L Normal 3-13 [facility] Comment on above: Performed By: #### Ilay [id number], LAB17, [id number] ####Interlocking Tower Operator: HAILEY HERNANDEZ ([phone])[facility] (SBHLAB)[address] [place] [address] [place] AST [Catalytic activity/Vol] 25 U/L Normal <34 [facility] Comment on above: Performed By: #### L [id number], LAB17, [id number] ####Interlocking Tower Operator: HAILEY HERNANDEZ ([phone])[facility] (SBHLAB)[address] [place] [address] [place] Bilirubin [Mass/Vol] 0.4 mg/dL Normal <1.2 [facility] Comment on above: Performed By: #### L [id number], LAB17, [id number] ####Interlocking Tower Operator: HAILEY HERNANDEZ ([phone])[facility] (SBHLAB)[address] [place] [address] [place] Calcium [Mass/Vol] 8.7 mg/dL Low 8.8-10.0 [facility] Comment on above: Performed By: #### L [id number], LAB17, [id number] ####Interlocking Tower Operator: HAILEY HERNANDEZ ([phone])[facility] (SBHLAB)[address] [place] [address] [place] Chloride [Moles/Vol] 111 mmol/L High 98-107 [facility] Comment on above: Performed By: #### Ilya [id number], LAB17, RIO549 ####Interlocking Tower Operator: HAILEY HERNANDEZ ([phone])[facility] (SBHLAB)[address] [place] [address] [place] CO2 [Moles/Vol] 23 mmol/L Normal 23-31 [facility] Comment on above: Performed By: #### Ilya [id number], LAB17, [id number] ####Interlocking Tower Operator: HAILEY HERNANDEZ ([phone])[facility] (SBHLAB)[address] Creatinine [Mass/Vol] 0.89 mg/dL Normal 0.72-1.[address] [facility] Comment on above: Performed By: #### Ilya [id number], LAB17, [id number] ####[employer]locking Tower Operator: HAILEY HERNANDEZ ([phone])[facility] (SBHLAB)[address] GLOMERULAR FILTRATION RATE ML/MIN/1.73 SQ M.PREDICTED >90.0 Normal >60.0 [facility] Comment on above: Result Comment: Calc ulation based on the Chronic Kidney Disease Epidemiology Collaboration (CKD-EPI) equation refit without adjustment for race Performed By: #### L [id number], LAB17, [id number] ####[employer]locking [employer] Operator: HAILEY HERNANDEZ ([phone])[facility] (SBHLAB)[address] [place] [address] [place] Glucose [Mass/Vol] 163 mg/dL High 82-115 [facility] Comment on above: Performed By: #### L [id number], LAB17, [id number] ####Interlocking Tower Operator: HAILEY HERNANDEZ ([phone])[facility] (SBHLAB)[address] [place] [address] [place] Potassium [Moles/Vol] 4.1 mmol/L Normal 3.5-5.[address] [facility] Comment on above: Result Comment: [facility] potassium values may be up to 0.5 mmol/L lower than serum values. Performed By: #### L [id number], LAB17, [id number] ####Interlocking Tower Operator: HAILEY HERNANDEZ ([phone])[facility] (SBHLAB)[address] Protein [Mass/Vol] 6.3 g/dL Low 6.4-8.3 [facility] Comment on above: Performed By: #### L [id number], LAB17, LPS025 ####Interlocking Tower Operator: HAILEY HERNANDEZ ([phone])[facility] ([facility])[address] Sodium [Moles/Vol] 142 mmol/L Normal 136-145 [facility] Comment on above: Performed By: #### L [id number], LAB17, RBV292 ####Interlocking Tower Operator: HAILEY HERNANDEZ ([phone])[facility] ([facility])[address] [place] [address] Urea nitrogen [Mass/Vol] 17 mg/dL Normal 9-23 [facility] Comment on above: Performed By: #### L [id number], LAB17, [id number] ####Interlocking Tower Operator: HAILEY HERNANDEZ ([phone])[facility] ([facility])[address] [place] [address] CT HEAD WO IV CONTRASTon CT HEAD [...] sinonasal polyposis bilaterally. Report Dictated on Workstation: [employer] Electronically Signed By: Avinash Miguel MD Electronically Signed Date/Time: 05/21/2025 1:00 AM EDT Table formatting from the original note was not included. X 2 weeks. Also endorses nausea and dizziness. Took tylenol at home with relief. Normal [facility] CT Head WO contraston 2024 1. No acute intracranial abnormalities. 2. Chronic sinonasal polyposis bilaterally. Report Dictated on Workstation: [employer] Electronically Signed By: Avinash Miguel MD Electronically Signed Date/Time: 05/21/2025 1:00 AM EDT [facility] Patient Name: JOSEPH BROWN : 1955 Exam [...] were present on the patient's prior study. [facility] Avinash Miguel MD - 05/21/2025 Patient Name: [...] Electronically Signed Date/Time: 05/21/2025 1:00 AM EDT [facility] Radiology Study observation (narrative) [facility] CT Head WO contrastOrdered B y: Avinash Miguel on 05-21-2025 [facility] Work Phone: Comprehensive metabolic 1998 panelon 05-21-2025 Albumin [Mass/Vol] 3.5 g/dL 3.4 - 4.8 g/dL [facility] ALP [Catalytic activity/Vol] 66 U/L 40 - 150 U/L [facility] ALT [Catalytic activity/Vol] 18 U/L [facility] U/L [facility] Anion gap [Moles/Vol] 8 mmol/L 3 - 13 mmol/L [facility] AST [Catalytic activity/Vol] 25 U/L [facility] - 34 U/L [facility] Bilirubin [Mass/Vol] 0.4 mg/dL NINF - 1.2 mg/dL [facility] Calcium [Mass/Vol] 8.7 mg/dL Low 8.8 - 10. 0 mg/dL [facility] Chloride [Moles/Vol] 111 mmol/L High 98 - 10 7 mmol/L [facility] CO2 [Moles/Vol] 23 mmol/L 23 - 31 mmol/L [facility] Creatinine [Mass/Vol] 0.89 mg/dL 0.72 - 1.25 mg/dL [facility] GFR/1.73 sq M.predicted (S/P/Bld) [Vol rate/Area] - PINF [facility] [employer] Comment on above: Calculation based on the Chronic Kidney Disease Epidemiology Collaboration (CKD-EPI) equation refit without adjustment for race Glucose [Mass/Vol] 163 mg/dL High 82 - 115 mg/dL [facility] Interpretation and review of laboratory results Abnormal [facility] [employer] Potassium [Moles/Vol] 4.1 mmol/L 3.5 - 5.1 mmol/L [facility] [employer] Comment on above: Plasma potassium frank ues may be up to 0.5 mmol/L lower than serum values. Protein [Mass/Vol] 6.3 g/dL Low 6.4 - 8.3 g/dL [facility] [employer] Sodium [Moles/Vol] 142 mmol/L 136 - 145 mmol/L [facility] [employer] Urea nitrogen [Mass/Vol] 17 mg/dL 9 - 23 mg/d L [facility] [employer] [facility] [employer] Consulton 05-21-2025 Consult Attestation signed by Zoey [...] normal for motor, sensory ,coordination and gate Carter, lung and carotid auscultation was normal . [...] Name: Joseph Brown Patient : 1955 Acct: [id number] Date of Admission: 05/20/2025 Room/[facility]: [facility] A PCP: Laquita Ding DO History of [...] vestibular t (more content not included)... Normal [facility] ECG 12-LEADon 05-21-2025 ECG 12-LEAD IMPRESSION: EKG shows normal sinus rhythm, 64 bpm, no STEMI, QTc normal. Interpretation was performed by me. Overall similar when compared to prior. Electronically Signed On 05-21-2025 01:10:32 EDT by Jacoby Sanders Normal [facility] HIGH SENSITIVITY TROPONIN, S ERIAL BASELINEon 05-21-2025 TROPONIN HS SERIAL BASELINE 5 ng/L Normal <=35 [facility] Comment on above: Result Comment: In i ndividuals presenting with symptoms > 2h, a baseline troponin <= 5 ng/L suggests acute cardiac injury is unlikely and further serial testing is generally not indicated. Performed By: #### L [id number], [id number], [id number] ####Interlocking Tower Operator: HAILEY HERNANDEZ ([phone])[facility] [place] [address] HIGH SENSITIVITY TROPONIN, S ERIAL, SECOND TESTon 05-21-2025 2H TROPONIN HS (SERIAL 2ND TROPONIN) 4 ng/L Normal <=35 [facility] Comment on above: Result Comment: Risi ng or falling troponin delta below 2 ng/L as compared to baseline value suggests that acute cardiac injury is unlikely. Performed By: #### L [id number] ####Interlocking Tower Operator: HAILEY GAITANLUCERO ([phone])[facility] ([facility])[address] [place] [address] MR Brain WO contraston 05-21 Patient Name: [...] ethmoid and right maxillary and sphenoid sinuses. [facility] Yasmani Briscoe MD - 05/21/2025 [...] basilar and proximal posterior cerebral arteries. Right TRIM SETTER HELPER derives major contribution from anterior circulation consistent [...] Electronically Signed Date/Time: 05/21/2025 6:01 PM EDT [facility] MRA Head vessels WO contrast on 05-21-2025 [...] ethmoid and right maxillary and sphenoid sinuses. [facility] Yasmani Briscoe MD - 05/21/2025 Patient Name: [...] basilar and proximal posterior cerebral arteries. Right TRIM SETTER HELPER derives major contribution from anterior circulation consistent [...] Electronically Signed Date/Time: 05/21/2025 6:01 PM EDT [facility] MRA Neck vessels WO and W co ntrast Emma 05-21-2025 [facility] 1955 [id number] Exam Date/Time: 05/21/2025 16:00 Procedure: MR NECK [...] ethmoid and right maxillary and sphenoid sinuses. [facility] Yasmani Briscoe MD - 05/21/2025 Patient Name: [facility]PH [facility] : 1955 [id number] Exam Date/Time: 05/21/2025 16:00 Procedure: MR NECK [...] basilar and proximal posterior cerebral arteries. Right TRIM SETTER HELPER derives major contribution from anterior circulation consistent [...] Electronically Signed Date/Time: 05/21/2025 6:01 PM EDT [facility] [employer] NT PRO BNPon 05-21-2025 Natriuretic peptide B (Bld) [Mass/Vol] 89 pg/mL Normal <125 [facility] [employer] [facility] Comment on above: Performed By: #### L [id number], [id number], [id number] ####Interlocking Tower Operator: HAILEY HERNANDEZ ([phone])[facility] ([facility])[address] [place] [address] Natriuretic peptide B [Mass/ Vol]on 05-21-2025 Interpretation and review of laboratory results Normal [facility] Natriuretic peptide B (Bld) [Mass/Vol] 89 pg/mL NINF - 125 pg/mL [facility] No Panel Informationon 05-21 1. No acute [...] basilar and proximal posterior cerebral arteries. Right TRIM SETTER HELPER derives major contribution from anterior circulation consistent [...] Electronically Signed Date/Time: 05/21/2025 6:01 PM EDT [facility] Radiology Study observation (narrative) [facility] 2h Troponin HS (Serial 2nd Troponin) 4 ng/L NINF - 35 ng/L [facility] Comment on above: Rising or falling tr oponin delta below 2 ng/L as compared to baseline value suggests that acute cardiac injury is unlikely. Interpretation and review of laboratory results Normal [facility] EKG shows normal sinus rhythm, 64 bpm, [...] On 05-21-2025 01:10:32 EDT by Jacoby Sanders [facility] Interpretation and review of laboratory results Normal [facility] Troponin HS Serial Baseline 5 ng/L NINF - 35 ng/L [facility] Comment on above: In individuals prese nting with symptoms > 2h, a baseline troponin <= 5 ng/L suggests acute cardiac injury is unlikely and further serial testing is generally not indicated. [facility] No Panel InformationOrdered By: Jacoby Sanders on 05-21-2025 P [place] 47 degrees [employer] Work Phone: WI Interval 128 ms [employer] Work Phone: QRS [place] 6 degrees [employer] Work Phone: QRSD Interval 98 ms [email or web address] Work Phone: QT Interval 410 ms [employer] Work Phone: QTC Interval 422 ms [employer] Work Phone: T Wave [place] 44 degrees [employer] Work Phone: [employer] Work Phone: Progress Noteon 05-21-2025 Progress Note OCCUPATIONAL THERAPY [facility]'s Name/MRN: Joseph Brown ([id number]) Date: 05/21/2025 Therapy eval and treat orders received. Chart review complete and spoke with evaluating physical therapist. Pt is currently IND for transfers / mobility without a device and demonstrates no current concerns for home going at this time. Will discontinue orders at this time. Should pt demo a change in status, please reorder OT services. Mikie Chavira, OT Normal [facility] Vital signsOrdered By: Jacoby Sanders on 05-21-2025 Heart rate 64 /min bpm [employer] Work Phone: ED Provider Noteon ED Provider [...] and DIFFEREN (more content not included)... Normal [facility] XR Chest Single viewon 05-20 1. Hypoinflation. 2. No other acute findings. Report Dictated on Electronically Signed By: Yasmani Briscoe MD Electronically Signed Date/Time: 05/20/2025 11:56 PM EDT [facility] Name[facility] : 1955 [id number] Exam Date/Time: 05/20/2025 23:37 Procedure: XR CHEST 1 VIEW Ordering Provider: SANDERS FELIX Reason For Exam: sob CHEST PORTABLE CLINICAL INDICATION: sob TECHNIQUE: Portable chest x-ray(s). COMPARISON: December,. FINDINGS: Cardiac and mediastinal silhouette within normal limits. Lungs are mildly hypoinflated. No significant vascular congestion. No focal consolidation or apparent pneumothorax. Degenerative change again noted in the thoracic spine. [facility] Yasmani Briscoe MD - 05/20/2025 Patient Name: [...] Electronically Signed Date/Time: 05/20/2025 11:56 PM EDT [facility] Radiology Study observation (narrative) [facility] XR Chest Single viewOrdered By: Yasmani Briscoe on 05-20-2025 [facility] Work Phone: BASIC METABOLIC PANELon 03-0 Anion gap [Moles/Vol] 10 mmol/L Normal 3-[address] [facility] Comment on above: Performed By: #### L [id number], [id number] ####[employer] Tower Operator: HAILEY HERNANDEZ ([phone])[facility])[address] Calcium [Mass/Vol] 8.8 mg/dL Normal 8.8-10.0 [facility] Comment on above: Performed By: #### L AB15, [id number] ####[employer] Operator: HAILEY HERNANDEZ ([phone])[facility] ([facility])[address] Chloride [Moles/Vol] 109 mmol/L High 98-107 [facility] Comment on above: Performed By: #### L AB15, [id number] ####[employer]locking Tower Operator: HAILEY HERNANDEZ ([phone])[facility] CO2 [Moles/Vol] 21 mmol/L Low 23-31 [facility] Comment on above: Performed By: #### L AB15, [id number] ####[employer]locking Tower Operator: HAILEY HERNANDEZ ([phone])[facility])[address] Creatinine [Mass/Vol] 0.81 mg/dL Normal 0.72-1.[address] [facility] Comment on above: Performed By: #### L AB15, [id number] ####Interlocking Tower Operator: HAILEY HERNANDEZ ([phone])[facility] ([facility])[address] GLOMERULAR FILTRATION RATE ML/MIN/1.73 SQ M.PREDICTED >90.0 Normal >60.0 [facility] Comment on above: Result Comment: Calc ulation based on the Chronic Kidney Disease Epidemiology Collaboration (CKD-EPI) equation refit without adjustment for race Performed By: #### L AB15, [id number] ####Interlocking Tower Operator: HAILEY HERNANDEZ ([phone])[facility] ([facility])[address] [place] [address] [place] Glucose [Mass/Vol] 134 mg/dL High 82-115 [facility] Comment on above: Performed By: #### L AB15, [id number] ####Interlocking Tower Operator: HAILEY HERNANDEZ ([phone])[facility] ([facility])[address] Potassium [Moles/Vol] 3.8 mmol/L Normal 3.5-5.[address] [facility] Comment on above: Result Comment: [facility] potassium values may be up to 0.5 mmol/L lower than serum values. Performed By: #### L AB15, [id number] ####Interlocking Tower Operator: HAILEY HERNANDEZ ([phone])[facility])[address] Sodium [Moles/Vol] 140 mmol/L Normal 136-145 [facility] Comment on above: Performed By: #### L AB15, [id number] ####[employer]locking Tower Operator: HAILEY HERNANDEZ ([phone])[facility])[address] [place] [address] Urea nitrogen [Mass/Vol] 18 mg/dL Normal 9-23 [facility] Comment on above: Performed By: #### L AB15, [id number] ####Interlocking Tower Operator: HAILEY HERNANDEZ ([phone])[facility])[address] [place] [address] Basic metabolic 1998 panelon 12-20-2024 Anion gap [Moles/Vol] 10 mmol/L 3 - 13 mmol/L [facility] Calcium [Mass/Vol] 8.8 mg/dL 8.8 - 10. 0 mg/dL [facility] Chloride [Moles/Vol] 109 mmol/L High 98 - 10 7 mmol/L [facility] CO2 [Moles/Vol] 21 mmol/L Low 23 - 31 mmol/L [facility] Creatinine [Mass/Vol] 0.81 mg/dL 0.72 - 1.25 mg/dL [facility] GFR/1.73 sq M.predicted (S/P/Bld) [Vol rate/Area] - PINF [facility] Comment on above: Calculation based on the Chronic Kidney Disease Epidemiology Collaboration (CKD-EPI) equation refit without adjustment for race Glucose [Mass/Vol] 134 mg/dL High 82 - 115 mg/dL [facility] Interpretation and review of laboratory results Abnormal [facility] Potassium [Moles/Vol] 3.8 mmol/L 3.5 - 5.1 mmol/L [facility] Comment on above: Plasma potassium frank ues may be up to 0.5 mmol/L lower than serum values. Sodium [Moles/Vol] 140 mmol/L 136 - 145 mmol/L [facility] Urea nitrogen [Mass/Vol] 18 mg/dL 9 - 23 mg/d L [facility] CBC W Auto Differential pane l (Bld)on 12-20-2024 Basophils (Bld) [#/Vol] 0 10*3/uL 0.0 - 0.2 10*3/uL [facility] Basophils/100 WBC (Bld) 0.5 % 0.0 - 2.0 % [facility] Eosinophils (Bld) [#/Vol] 0.4 10*3/uL 0.0 - 0.5 10*3/uL [facility] Eosinophils/100 WBC (Bld) 4.3 % 0.0 - 6.0 % [facility] Erythrocyte distribution width (RBC) [Ratio] 13.6 % 11.5 - 15.0 % [facility] Hematocrit (Bld) [Volume fraction] 43.6 % 40.0 - 52.0 % [facility] Hemoglobin (Bld) [Mass/Vol] 14.7 g/dL 13.0 - 18.0 g/dL [facility] Immature granulocytes (Bld) [#/Vol] 0 10*3/uL NINF - 0.1 10*3/uL [facility] Immature granulocytes/100 WBC (Bld) 0.5 % 0.0 - 2.0 % [facility] Interpretation and review of laboratory results Normal [facility] Lymphocytes (Bld) [#/Vol] 2.1 10*3/uL 1.0 - 4.3 10*3/uL [facility] Lymphocytes/100 WBC (Bld) 24.2 % 15.0 - 45.0 % [facility] MCH (RBC) [Entitic mass] 30.4 pg 26. 0 - 34.0 pg [facility] MCHC (RBC) [Mass/Vol] 33.7 % 30.5 - 36.0 % [facility] MCV (RBC) [Entitic vol] 90.1 fL 77.0 - 99.0 fL [facility] Monocytes (Bld) [#/Vol] 0.6 10*3/uL 0.0 - 0.9 10*3/uL [facility] Monocytes/100 WBC (Bld) 6.7 % 5.0 - 13.0 % [facility] Neutrophils (Bld) [#/Vol] 5.5 10*3/uL 1.8 - 7.5 10*3/uL [facility] Neutrophils/100 WBC (Bld) 63.8 % 38.0 - 82.0 % [facility] Nucleated RBC/100 WBC (Bld) [Ratio] 0 % [facility] Platelet mean volume (Bld) [Entitic vol] 10.2 fL 9.0 - 12.7 fL [facility] Platelets (Bld) [#/Vol] 207 10*3/uL 140 - 440 10*3/uL [facility] RBC (Bld) [#/Vol] 4.84 10*6/uL 4.40 - 5.9 0 10*6/uL [facility] WBC (Bld) [#/Vol] 8.6 10*3/uL 3.6 - 10.7 10*3/uL [facility] CBC WITH AUTO DIFFERENTIALon 12-20-2024 Basophils (Bld) [#/Vol] 0.0 10*3/uL Normal 0.0-0.2 [facility] Comment on above: Performed By: #### L [id number] #### [employer] Operator: HAILEY HERNANDEZ ([phone]) [facility] ([facility]) [address] Basophils/100 WBC (Bld) 0.5 % Normal 0.0-2.0 [facility] Comment on above: Performed By: #### L [id number] #### [employer]locking Tower Operator: HAILEY HERNANDEZ ([phone]) [facility] ([facility]) [address] Eosinophils (Bld) [#/Vol] 0.4 10*3/uL Normal 0.0-0.5 [facility] Comment on above: Performed By: #### L [id number] #### [employer]locking [employer] Operator: HAILEY HERNANDEZ ([phone]) [facility] ([facility]) [address] [place] [address] Eosinophils/100 WBC (Bld) 4.3 % Normal 0.0-6.0 [facility] Comment on above: Performed By: #### L [id number] #### [employer] Operator: HAILEY HERNANDEZ ([phone]) [facility] ([facility]) [address] [place] [address] Erythrocyte distribution width (RBC) [Ratio] 13.6 % Normal 11.5-15.0 [facility] Comment on above: Performed By: #### L [id number] #### [employer] Operator: HAILEY HERNANDEZ ([phone]) [facility] ([facility]) [address] [place] [address] Hematocrit (Bld) [Volume fraction] 43.6 % Normal 40.0-52.0 [facility] Comment on above: Performed By: #### L [id number] #### [employer] Operator: HAILEY HERNANDEZ ([phone]) [facility] ([facility]) [address] [place] [address] Hemoglobin (Bld) [Mass/Vol] 14.7 g/dL Normal 13.0-18.0 [facility] Comment on above: Performed By: #### L [id number] #### [employer] Operator: HAILEY HERNANDEZ ([phone]) [facility] ([facility]) [address] [place] [address] IMMATURE GRANS % 0.5 % Normal 0.0-2.0 [facility] Comment on above: Performed By: #### L [id number] #### [employer]locking [employer] Operator: HAILEY HERNANDEZ ([phone]) [facility] ([facility]) [address] [place] [address] IMMATURE GRANS ABSOLUTE 0.0 10*3/uL Normal <0.1 [facility] Comment on above: Performed By: #### L [id number] #### [employer] Operator: HAILEY HERNANDEZ ([phone]) [facility] ([facility]) [address] Lymphocytes (Bld) [#/Vol] 2.1 10*3/uL Normal 1.0-4.3 [facility] Comment on above: Performed By: #### L [id number] #### [employer] Operator: HAILEY HERNANDEZ ([phone]) [facility] ([facility]) [address] Lymphocytes/100 WBC (Bld) 24.2 % Normal 15.0-45.0 [facility] Comment on above: Performed By: #### L [id number] #### [employer] Operator: HAILEY HERNANDEZ ([phone]) [facility] ([facility]) [address] MCH (RBC) [Entitic mass] 30.4 pg Normal 26.0-34.0 [facility] Comment on above: Performed By: #### L [id number] #### [employer] Operator: HAILEY HERNANDEZ ([phone]) [facility] ([facility]) [address] MCHC 33.7 % Normal 30.5-36.0 [facility] Comment on above: Performed By: #### L [id number] #### [employer] Operator: HAILEY HERNANDEZ ([phone]) [facility] ([facility]) [address] MCV (RBC) [Entitic vol] 90.1 fL Normal 77.0-99.0 [facility] Comment on above: Performed By: #### L [id number] #### [employer] Operator: HAILEY HERNANDEZ ([phone]) [facility] ([facility]) [address] Monocytes (Bld) [#/Vol] 0.6 10*3/uL Normal 0.0-0.9 [facility] Comment on above: Performed By: #### L [id number] #### [employer] Operator: HAILEY HERNANDEZ ([phone]) [facility] ([facility] [address] Monocytes/100 WBC (Bld) 6.7 % Normal 5.0-13.0 [facility] Comment on above: Performed By: #### L [id number] #### [employer] Operator: HAILEY HERNANDEZ ([phone]) [facility] [address] NEUTROPHILS ABSOLUTE 5.5 10*3/uL Normal 1.8-7.[address] [facility] Comment on above: Performed By: #### L [id number] #### [employer] Operator: HAILEY HERNANDEZ ([phone]) [facility] [address] Neutrophils/100 WBC (Bld) 63.8 % Normal 38.0-82.0 [facility] Comment on above: Performed By: #### L [id number] #### [employer] Operator: HAILEY HERNANDEZ ([phone]) [facility] [address] NRBC 0.0 /100 WBCs Normal 0.0-2.0 [facility] Comment on above: Performed By: #### L [id number] #### [employer] Operator: HAILEY HERNANDEZ ([phone]) [facility] [address] [place] [address] [place] Platelet mean volume (Bld) [Entitic vol] 10.2 fL Normal 9.0-12.7 [facility] Comment on above: Performed By: #### L [id number] #### [employer] Operator: HAILEY HERNANDEZ ([phone]) [facility] [address] [place] [address] [place] Platelets (Bld) [#/Vol] 207 10*3/uL Normal 140-440 [facility] Comment on above: Performed By: #### L [id number] #### [employer] Operator: HAILEY HERNANDEZ ([phone]) [facility] ([facility]) [address] RBC (Bld) [#/Vol] 4.84 10*6/uL Normal 4.40-5.90 [facility] Comment on above: Performed By: #### L [id number] #### [employer] Operator: HAILEY HERNANDEZ ([phone]) [facility] ([facility]) [address] WBC (Bld) [#/Vol] 8.6 10*3/uL Normal 3.6-10.7 [facility] Comment on above: Performed By: #### L [id number] #### [employer] Operator: HAILEY HERNANDEZ ([phone]) [facility] ([facility]) [address] [place] [address] CT HEAD NECK ANGIO W AND WO IV CONTRASTon 12-20-2024 CT HEAD NECK ANGIO W AND WO IV CONTRAST [facility] 1955 [id number] Exam Date/Time: 12/20/2024 10:09 Procedure: CT HEAD [...] The V4 segments , basilar artery and acid patroller are patent and normal in caliber. The [...] , cardiac or vascular cause suspected Normal [facility] CT HEAD WO IV CONTRASTon CT HEAD WO IV CONTRAST Patient Name: JOSEPH BROWN : 1955 [facility]#: [id number] Exam Date/Time: 12/20/2024 09:29 Procedure: CT HEAD [...] month ago and 3 weeks ago. Normal [facility] CT Head WO contraston 2024 1. No acute intracranial abnormality. Chronic microvascular change. 2. Fairly extensive paranasal sinus disease. Report Dictated on Electronically Signed By: Haresh Reyes MD Electronically Signed Date/Time: 12/20/2024 10:05 AM [facility] Name[facility] 1955 [id number] Exam Date/Time: 12/20/2024 09:29 Procedure: CT HEAD WO IV CONTRAST Ordering Provider: CATNU BRIGID Reason For Exam: Dizziness, persistent/recurrent , [...] Soft tissues: The soft tissues are unremarkable. [facility] Haresh Reyes MD - 12/20/2024 Patient Name: [facility]PH [facility]ONW [facility] 1955 [id number] Exam Date/Time: 12/20/2024 09:29 Procedure: CT HEAD [...] MD Electronically Signed Date/Time: 12/20/2024 10:[address] [facility] Radiology Study observation (narrative) [facility] CTA Head vessels and Neck ve ssels WO and W contrast Emma 12-20-2024 No large vessel occlusion or high-grade stenosis in the head or neck. Less than 30 percent stenosis of the proximal cervical ICAs bilaterally by NASCET criteria. Report Dictated on Electronically Signed By: Jerardo Magallanes MD Electronically Signed Date/Time: 12/20/2024 11:17 AM [facility] [employer] RADIOLOGY SYSTEM Patient Name: [facility]PH [facility] 1955 [id number] Exam Date/Time: 12/20/2024 10:09 Procedure: CT HEAD [...] The V4 segments , basilar artery and acid patroller are patent and normal in caliber. The proximal SCAs, AICAs and PICAs are patent. The superior sagittal sinus, straight sinus, confluence, transverse and sigmoid sinuses are patent. [facility] Jerardo Magallanes MD - 12/20/2024 [...] The V4 segments , basilar artery and acid patroller are patent and normal in caliber. The [...] Electronically Signed Date/Time: 12/20/2024 11:17 AM EST [facility] Radiology Study observation (narrative) [facility] CTA Head vessels and Neck ve ssels WO and W contrast IVOrdered By: Jerardo Magallanes on 12-20-2024 [facility] Work Phone: ED Nursing Noteon 12-20-2024 ED [...] month ago and 3 weeks ago. Normal [facility] ED Provider Noteon ED Provider Note [...] Physician EKG interpretation can be found in [facility] RADIOLOGY (Per Emergency Physician): Interpretation per [...] Workstation: [id number] (more content not included)... Normal [facility] HIGH SENSITIVITY TROPONIN, S ERIAL BASELINEon 12-20-2024 TROPONIN HS SERIAL BASELINE <3 Normal <=35 [facility] Comment on above: Result Comment: In i ndividuals presenting with symptoms > 2h, a baseline troponin <= 5 ng/L suggests acute cardiac injury is unlikely and further serial testing is generally not indicated. Performed By: #### L AB15, [id number] ####[employer] Operator: HAILEY HERNANDEZ ([phone])[facility] ([facility])[address] [place] [address] HIGH SENSITIVITY TROPONIN, S ERIAL, SECOND TESTon 12-20-2024 2H TROPONIN HS (SERIAL 2ND TROPONIN) 3 ng/L Normal <=35 [facility] Comment on above: Result Comment: Delt a value was unable to be calculated as both baseline and serial troponin tests were below the level of quantitation. As both baseline and 2h troponin values are below the level of quantitation, acute cardiac injury is unlikely. Performed By: #### L [id number] ####[employer] Operator: HAILEY HERNANDEZ ([phone])[facility] ([facility])[address] [place] [address] No Panel Informationon 12-20 P [place] 46 degrees [facility] [place] Interval 126 ms [facility] QRS [place] -7 degrees [facility] QRSD Interval 102 ms [facility] Inter[facility] 416 ms [facility] QTC Interval 463 ms [facility] T Wave [place] 45 degrees [facility] Cydney Cantu, - 12/20/2024 IMPRESSION: Sinus rhythm Abnormal R-wave progression, early transition Minimal ST depression, lateral leads Electronically Signed On 12-20-2024 15:38:23 EST by Cydney Cantu [facility] 2h Troponin HS (Serial 2nd Troponin) 3 ng/L NINF - 35 ng/L [facility] Comment on above: Delta value was unab le to be calculated as both baseline and serial troponin tests were below the level of quantitation. As both baseline and 2h troponin values are below the level of quantitation, acute cardiac injury is unlikely. Interpretation and review of laboratory results Normal [facility] [facility] Interpretation and review of laboratory results Normal [facility] Troponin HS Serial Baseline ng/L NINF - 35 ng/L [facility] Comment on above: In individuals prese nting with symptoms > 2h, a baseline troponin <= 5 ng/L suggests acute cardiac injury is unlikely and further serial testing is generally not indicated. [facility] Vital signson 12-20-2024 Heart rate 74 /min bpm [facility] XR Chest Single viewon 12-20 No acute cardiopulmonary abnormality identified. Report Dictated on Electronically Signed By: Haresh Reyes MD Electronically Signed Date/Time: 12/20/2024 9:31 AM [facility] [place] [facility] Patient Name: JOSEPH BROWN : [...] osseous abnormality is demonstrated. Other findings: None. [facility] Haresh Reyes MD - 12/20/2024 Patient [...] Electronically Signed Date/Time: 12/20/2024 9:31 AM EST [facility] Radiology Study observation (narrative) [facility] XR Chest Single viewOrdered By: Haresh Reyes on 12-20-2024 [facility] Spine Lumbar w/o Contras ton 08-28-2021 MRI Spine Lumbar w/o Contrast [facility]: [id number] Imaging ACCESSION EXAM DATE/TIME PROCEDURE ORDERING PROVIDER [id number] 08/28/2021 08:20 EST MRI Spine Lumbar w/o DO DING LINDA J Contrast CPT code 06566 Reason For Exam (MRI Spine Lumbar w/o [...] and Time: 08/30/2021 3:46 Normal [facility] CR Chest PA/LATon 04-06-2021 CR Chest PA/LAT Patient Name: JOSEPH BROWN Diagnostic Radiology ACCESSION EXAM DATE/TIME PROCEDURE ORDERING PROVIDER [id number] 04/06/2021 12:20 EDT CR Chest PA and LAT CAROLINA FRANCOIS CPT code 79084 Reason For Exam (CR Chest PA and LAT) 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 WAREHOUSE MANAGER/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 Report CHEST X-RAY PA/LATERAL CLINICAL INDICATION: Shortness [...] and Time: 04/06/2021 1:25 Normal [facility] XR CHEST (2 VW)Ordered By: Rita Francois on 04-06-2021 Patient Name: JOSEPH BROWN Diagnostic Radiology ACCESSION EXAM DATE/TIME PROCEDURE ORDERING PROVIDER [id number] 04/06/2021 12:20 EDT CR Chest PA & LAT FRANCOIS, MASROOR CPT code 06098 Reason For Exam (CR Chest PA & LAT) DATA WAREHOUSE MANAGER/SOB Report CHEST X-RAY PA/LATERAL CLINICAL INDICATION: Shortness [...] R Transcribed Date and Time: 04/06/2021 1:25 [facility] Work Phone: [facility], [employer] Incoming Radiology Results From [facility] - 04/06/2021 1:25 PM EDT Patient Name: JOSEPH BROWN Diagnostic Radiology ACCESSION EXAM DATE/TIME PROCEDURE ORDERING PROVIDER [id number] 04/06/2021 12:20 EDT CR Chest PA & LAT CAROLINA FRANCOIS CPT code 50063 Reason For Exam (CR Chest PA & LAT) DATA WAREHOUSE MANAGER/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#: [id number] Diagnostic Radiology ACCESSION EXAM DATE/TIME PROCEDURE ORDERING PROVIDER [id number] 12/09/2020 12:30 EST CR Chest PA and LAT CAROLINA FRANCOIS CPT code 50812 Reason For Exam (CR Chest PA and [...] and Time: 12/09/2020 2:00 Normal [facility] ECHO Complete 2D W Doppler W Coloron 12-09-2020 TRANSTHORACIC ECHOCARDIOGRAM PATIENT: Joseph Brown STUDY DATE: 12/09/2020 [facility]#: [id number] : 1955 AGE: 65 HT/WT: 182.9 cm (72 94.3 kg in) (207.6 lb) GENDER: M BP: 131 / 67 LOCATION: [facility] PATIENT Outpatient [facility] STATUS: *ORDERING PHYSICIAN: * Eve Garcia *READING PHYSICIAN: * Ck Estrada MD *FIXED WING PILOT: Saran CASH INDICATIONS: LV FX. HISTORY: PMH: COVID 10-19-2020. [...] Ck Estrada MD 12/09/2020 14:45 Prior Signatures: [employer] Work Phone: [employer] Incoming Cardiology Results From [email or web address] - 12/09/2020 2:46 PM EST TRANSTHORACIC ECHOCARDIOGRAM PATIENT: Joseph Brown STUDY DATE: 12/09/2020 : 1955 AGE: 65 HT/WT: 182.9 cm (72 94.3 kg in) (207.6 lb) GENDER: M BP: 131 / 67 LOCATION: [facility] [employer] [facility] PATIENT Outpatient [facility] STATUS: *ORDERING PHYSICIAN: * Eve Garcia *READING PHYSICIAN: * Ck Estrada MD *FIXED WING PILOT: * Heather CASH INDICATIONS: LV FX. HISTORY: PMH: COVID 10-19-2020. [...] Ck Estrada MD 12/09/2020 14:45 Prior Signatures: [employer] Phone: Echo Complete w/wo Contrasto n 12-09-2020 Echo Complete w/wo Contrast Patient Name: JOSEPH BROWN Ultrasound ACCESSION EXAM DATE/TIME PROCEDURE ORDERING PROVIDER [id number] 12/09/2020 14:06 EST Echo Complete w/wo AMARILIS GARCIA LORI P. Contrast Reason For Exam (Echo Complete w/wo Contrast) LV function Report TRANSTHORACIC ECHOCARDIOGRAM PATIENT: Joseph Brown STUDY DATE: 12/09/2020 : 1955 AGE: 65 HT/WT: 182.9 cm (72 94.3 kg in) (207.6 lb) GENDER: M BP: 131 / 67 LOCATION: [facility] PATIENT Outpatient [facility] STATUS: *ORDERING PHYSICIAN: * Eve Garcia *READING PHYSICIAN: * Ck Estrada MD *FIXED WING PILOT: * Heather CASH INDICATIONS: LV FX. HISTORY: PMH: COVID 10-19-2020. [...] Stroke volum (more content not included)... Normal [facility] XR CHEST (2 VW)on 12-09-2020 Patient Name: JOSEPH BROWN Diagnostic Radiology ACCESSION EXAM DATE/TIME PROCEDURE ORDERING PROVIDER [id number] 12/09/2020 12:30 EST CR Chest PA & LAT ESVIN FRANCOISOR CPT code 34136 Reason For Exam (CR Chest PA & [...] ROBERT Transcribed Date and Time: 12/09/2020 2:00 [employer] Work Phone: [facility] Incoming Radiology Results From [facility] - 12/09/2020 2:00 PM EST Patient Name: JOSEPH BROWN [facility]#: [id number] Diagnostic Radiology ACCESSION EXAM DATE/TIME PROCEDURE ORDERING PROVIDER [id number] 12/09/2020 12:30 EST CR Chest PA & LAT CAROLINA FRANCOIS CPT code 12920 Reason For Exam (CR Chest PA & [...] Panelon 10-17 Anion gap [Moles/Vol] 6 mmol/L [place] Calcium [Mass/Vol] 8.7 mg/dL 8.4 - 10. 4 mg/dL [place] Chloride [Moles/Vol] 110 mmol/L High 98 - 10 7 mmol/L [place] CO2 [Moles/Vol] 24 mmol/L 22 - 30 mmol/L [place] Creatinine [Mass/Vol] 0.64 mg/dL 0.52 - 1.25 mg/dL [place] EGFR IF NonAfrican Turkmen >90.0 >60 mL/min [place] Comment on above: KDIGO guidelines pro [...] MDRD (S/P/Bld) [Vol rate/Area] mL/min/{1.73_m2} >60 mL/min [place] Glucose [Mass/Vol] 119 mg/dL High 70 - 100 mg/dL [place] Potassium [Moles/Vol] 3.8 mmol/L 3.5 - 5.1 mmol/L [place] Sodium [Moles/Vol] 140 mmol/L 135 - 145 mmol/L [place] Urea nitrogen [Mass/Vol] 32 mg/dL High 7 - 20 mg/d L [place] CBCon 11-04-2020 Erythrocyte distribution width (RBC) [Ratio] 14.7 % High 11.5 - 14.5 % [place] Hematocrit (Bld) [Volume fraction] 30.8 % Low 40 - 52 % [place] Hemoglobin (Bld) [Mass/Vol] 10.0 g/dL Low 13 - 18 g/dL [place] Interpretation and review of laboratory results Abnormal [place] MCH (RBC) [Entitic mass] 30.0 pg 26 - 34 pg [place] MCHC (RBC) [Mass/Vol] 32.4 % 32 - 36 % [place] MCV (RBC) [Entitic vol] 92.4 fL 80 - 98 fL [place] Platelet mean volume (Bld) [Entitic vol] 8.0 fL 7.4 - 10.4 fL [place] Platelets (Bld) [#/Vol] 439 10*3/uL 140 - 440 10*3/uL [place] RBC (Bld) [#/Vol] 3.33 10*6/uL Low 4.4 - 5.9 10*6/uL [place] WBC (Bld) [#/Vol] 11.6 10*3/uL High 3.6 - 10.7 10*3/uL [place] Test Performed by [facility], [address], [place], [place] [id number] [place] [address] Calcium, Ionizedon Interpretation and review of laboratory results Abnormal [place] Ionized Ca 4.10 mg/dL Low 4.3 - 5.2 mg/dL [place] pH (Bld) 7.48 [pH] High [place] Test Performed by [facility] [employer] [facility], [address] [place], [place] [address] [place] D-Dimer, Quantitativeon 10-17 D-Dimer, Quant 8.16 mg/L High 0 - 0.5 mg/L [place] Comment on above: [employer] D-Dimer va lues of <0.50 mg/L FEU can be used in combination with a pre-test probability model (e.g. Well's) to exclude pulmonary embolism (PE) disease, as well as an aid in the diagnosis of deep vein thrombosis (DVT). Interpretation and review of laboratory results Abnormal [place] Test Performed by [facility], [address], [address] Ferritinon 11-04-2020 Ferritin [Mass/Vol] 867 ng/mL High 18 - 464 ng/mL [place] Interpretation and review of laboratory results Abnormal [place] Test Performed by [facility], [address], [address] Hepatic Function Panelon Albumin [Mass/Vol] 3.2 g/dL Low 3.5 - 5 g/dL [place] ALP [Catalytic activity/Vol] 73 U/L 38 - 126 U/L [place] ALT [Catalytic activity/Vol] 200 U/L High 0 - 49 U/L [place] Comment on above: The ALT test is perf ormed by an updated assay method. Please note that the reference intervals have been changed and are now sex specific. AST [Catalytic activity/Vol] 55 U/L High 15 - 46 U/L [place] Bilirubin Ql (U) 0.7 mg/dL 0.2 - 1.3 mg/dL [place] Bilirubin.direct [Mass/Vol] 0.0 mg/dL 0 - 0.3 mg/dL [place] Protein [Mass/Vol] 6.5 g/dL 6.3 - 8.2 g/dL [place] Magnesiumon 11-04-2020 Magnesium [Mass/Vol] 2.3 mg/dL 1.6 - 2 .3 mg/dL [place] Otheron 11-04-2020 Interpretation and review of laboratory results Abnormal [place] Test Performed by [facility], [address], [address] [facility] [place], [place] Phosphoruson 11-04-2020 Phosphate [Mass/Vol] 4.3 mg/dL 2.5 - 4 .5 mg/dL [place] Basic Metabolic Panelon 10-16 Anion gap [Moles/Vol] 4 mmol/L [place] Calcium [Mass/Vol] 8.8 mg/dL 8.4 - 10. 4 mg/dL [place] Chloride [Moles/Vol] 113 mmol/L High 98 - 10 7 mmol/L [place] CO2 [Moles/Vol] 26 mmol/L 22 - 30 mmol/L [place] Creatinine [Mass/Vol] 0.62 mg/dL 0.52 - 1.25 mg/dL [place] EGFR IF NonAfrican Turkmen >90.0 >60 mL/min [place] Comment on above: KDIGO guidelines pro [...] MDRD (S/P/Bld) [Vol rate/Area] mL/min/{1.73_m2} >60 mL/min [place] Glucose [Mass/Vol] 139 mg/dL High 70 - 100 mg/dL [place] Potassium [Moles/Vol] 3.8 mmol/L 3.5 - 5.1 mmol/L [place] Sodium [Moles/Vol] 143 mmol/L 135 - 145 mmol/L [place] Urea nitrogen [Mass/Vol] 42 mg/dL High 7 - 20 mg/d L [place] CBCon 11-03-2020 Erythrocyte distribution width (RBC) [Ratio] 14.6 % High 11.5 - 14.5 % [place] Hematocrit (Bld) [Volume fraction] 33.8 % Low 40 - 52 % [place] Hemoglobin (Bld) [Mass/Vol] 11.0 g/dL Low 13 - 18 g/dL [place] Interpretation and review of laboratory results Abnormal [place] MCH (RBC) [Entitic mass] 30.1 pg 26 - 34 pg [place] MCHC (RBC) [Mass/Vol] 32.4 % 32 - 36 % [place] MCV (RBC) [Entitic vol] 92.8 fL 80 - 98 fL [place] Platelet mean volume (Bld) [Entitic vol] 8.2 fL 7.4 - 10.4 fL [place] Platelets (Bld) [#/Vol] 305 10*3/uL 140 - 440 10*3/uL [place] RBC (Bld) [#/Vol] 3.64 10*6/uL Low 4.4 - 5.9 10*6/uL [place] WBC (Bld) [#/Vol] 9.5 10*3/uL 3.6 - 10.7 10*3/uL [place] Test Performed by [facility], [address] [place], [place] [id number] [place] [address] Calcium, Ionizedon Interpretation and review of laboratory results Abnormal [place] Ionized Ca 4.50 mg/dL 4.3 - 5.2 mg/dL [place] pH (Bld) 7.51 [pH] High [place] Test Performed by [facility], [address] [place], [place] [address] [place] Magnesiumon 11-03-2020 Magnesium [Mass/Vol] 2.5 mg/dL High 1.6 - 2 .3 mg/dL [place] Otheron 11-03-2020 Interpretation and review of laboratory results Abnormal [place] Test Performed by [facility], [address], [place], [place] [address] [place] Phosphoruson 11-03-2020 Phosphate [Mass/Vol] 3.9 mg/dL 2.5 - 4 .5 mg/dL [place] C-Reactive Proteinon 021 CRP [Mass/Vol] 43.8 mg/L High 0 - 6 mg/L [place] Comment on above: . CBC Auto Differentialon 10-16 Absolute Baso # 0.0 10*3/uL 0 - 0.2 10*3/uL [place] Absolute Neut # 6.9 10*3/uL 1.8 - 7 10*3/uL [place] Basophils/100 WBC (Bld) 0.5 % 0 - 2 % [place] Eosinophils (Bld) [#/Vol] 0.0 10*3/uL 0 - 0.5 10*3/uL [place] Eosinophils/100 WBC (Bld) 0.0 % Low 1 - 6 % [place] Erythrocyte distribution width (RBC) [Ratio] 14.5 % 11.5 - 14.5 % [place] Granulocytes/100 WBC (Bld) 84.0 % High 40 - 80 % [place] Hematocrit (Bld) [Volume fraction] 30.8 % Low 40 - 52 % [place] Hemoglobin (Bld) [Mass/Vol] 10.3 g/dL Low 13 - 18 g/dL [place] Interpretation and review of laboratory results Abnormal [place] Lymphocytes (Bld) [#/Vol] 0.7 10*3/uL Low 1 - 4.3 10*3/uL [place] Lymphocytes/100 WBC (Bld) 8.3 % Low 20 - 40 % [place] MCH (RBC) [Entitic mass] 30.4 pg 26 - 34 pg [place] MCHC (RBC) [Mass/Vol] 33.5 % 32 - 36 % [place] MCV (RBC) [Entitic vol] 90.8 fL 80 - 98 fL [place] Monocytes (Bld) [#/Vol] 0.6 10*3/uL 0 - 0.8 10*3/uL [place] Monocytes/100 WBC (Bld) 7.2 % 2 - 10 % [place] Platelet mean volume (Bld) [Entitic vol] 8.1 fL 7.4 - 10.4 fL [place] Platelets (Bld) [#/Vol] 352 10*3/uL 140 - 440 10*3/uL [place] RBC (Bld) [#/Vol] 3.39 10*6/uL Low 4.4 - 5.9 10*6/uL [place] WBC (Bld) [#/Vol] 8.2 10*3/uL 3.6 - 10.7 10*3/uL [place] Test Performed by [facility], [address] [place], [place] [address] [place], [place] Calcium, Ionizedon 1 Ionized Ca 4.70 mg/dL 4.3 - 5.2 mg/dL [place] pH (Bld) 7.45 [pH] [place] Test Performed by [facility], [address] [place], [place] [address] [place] Comprehensive Metabolic Pane l w/ Reflex to MGon 11-02-2020 Albumin [Mass/Vol] 2.8 g/dL Low 3.5 - 5 g/dL [place] ALP [Catalytic activity/Vol] 71 U/L 38 - 126 U/L [place] ALT [Catalytic activity/Vol] 221 U/L High 0 - 49 U/L [place] Comment on above: The ALT test is perf ormed by an updated assay method. Please note that the reference intervals have been changed and are now sex specific. Anion gap [Moles/Vol] 4 mmol/L [place] AST [Catalytic activity/Vol] 101 U/L High 15 - 46 U/L [place] Bilirubin Ql (U) 0.7 mg/dL 0.2 - 1.3 mg/dL [place] Calcium [Mass/Vol] 8.4 mg/dL 8.4 - 10. 4 mg/dL [place] Chloride [Moles/Vol] 112 mmol/L High 98 - 10 7 mmol/L [place] CO2 [Moles/Vol] 29 mmol/L 22 - 30 mmol/L [place] Creatinine [Mass/Vol] 0.63 mg/dL 0.52 - 1.25 mg/dL [place] EGFR IF NonAfrican Turkmen >90.0 >60 mL/min [place] Comment on above: KDIGO guidelines pro [...] MDRD (S/P/Bld) [Vol rate/Area] mL/min/{1.73_m2} >60 mL/min [place] Glucose [Mass/Vol] 138 mg/dL High 70 - 100 mg/dL [place] Potassium [Moles/Vol] 3.8 mmol/L 3.5 - 5.1 mmol/L [place] Protein [Mass/Vol] 6.2 g/dL Low 6.3 - 8.2 g/dL [facility] [place], [place] Sodium [Moles/Vol] 145 mmol/L 135 - 145 mmol/L [facility], [place] Urea nitrogen [Mass/Vol] 40 mg/dL High 7 - 20 mg/d L [facility] [place], [place] D-Dimer, Quantitativeon 10-16 D-Dimer, Quant 4.08 mg/L High 0 - 0.5 mg/L [facility], [place] Comment on above: [employer] D-Dimer va lues of <0.50 mg/L FEU can be used in combination with a pre-test probability model (e.g. Well's) to exclude pulmonary embolism (PE) disease, as well as an aid in the diagnosis of deep vein thrombosis (DVT). Interpretation and review of laboratory results Abnormal [facility], [place] Test Performed by [facility], [address] [place], [place] [id number] [place] [address], [place] Ferritinon 11-02-2020 Ferritin [Mass/Vol] 1060 ng/mL High 18 - 464 ng/mL [place] Interpretation and review of laboratory results Abnormal [facility], [place] Test Performed by [facility], [address], [place], [place] [id number] [place] [address] Lactate Dehydrogenaseon 10-16 LD 349 U/L High 120 - 246 U/L [facility], [place] Magnesiumon 11-02-2020 Magnesium [Mass/Vol] 2.5 mg/dL High 1.6 - 2 .3 mg/dL [facility], [place] Otheron 11-02-2020 Interpretation and review of laboratory results Abnormal [facility], [place] Test Performed by [facility], [address] [place], [place] [id number] [place] [address], [place] Phosphoruson 11-02-2020 Interpretation and review of laboratory results Abnormal [facility], [place] Phosphate [Mass/Vol] 4.6 mg/dL High 2.5 - 4 .5 mg/dL [facility] [place], [place] Test Performed by [facility], [address], [place], [place] [address] [place] [address], [place] C-Reactive Proteinon 021 CRP [Mass/Vol] 73.8 mg/L High 0 - 6 mg/L [place] Comment on above: . CBC Auto Differentialon 10-16 Absolute Baso # 0.1 10*3/uL 0 - 0.2 10*3/uL [place] Absolute Neut # 6.9 10*3/uL 1.8 - 7 10*3/uL [place] Basophils/100 WBC (Bld) 0.7 % 0 - 2 % [place] Eosinophils (Bld) [#/Vol] 0.1 10*3/uL 0 - 0.5 10*3/uL [place] Eosinophils/100 WBC (Bld) 1.0 % 1 - 6 % [place] Erythrocyte distribution width (RBC) [Ratio] 14.5 % 11.5 - 14.5 % [place] Granulocytes/100 WBC (Bld) 80.4 % High 40 - 80 % [place] Hematocrit (Bld) [Volume fraction] 31.0 % Low 40 - 52 % [place] Hemoglobin (Bld) [Mass/Vol] 10.4 g/dL Low 13 - 18 g/dL [place] Interpretation and review of laboratory results Abnormal [place] Lymphocytes (Bld) [#/Vol] 0.7 10*3/uL Low 1 - 4.3 10*3/uL [place] Lymphocytes/100 WBC (Bld) 7.8 % Low 20 - 40 % [place] MCH (RBC) [Entitic mass] 30.6 pg 26 - 34 pg [place] MCHC (RBC) [Mass/Vol] 33.4 % 32 - 36 % [place] MCV (RBC) [Entitic vol] 91.5 fL 80 - 98 fL [place] Monocytes (Bld) [#/Vol] 0.9 10*3/uL High 0 - 0.8 10*3/uL [place] Monocytes/100 WBC (Bld) 10.1 % High 2 - 10 % [place] Platelet mean volume (Bld) [Entitic vol] 8.1 fL 7.4 - 10.4 fL [place] Platelets (Bld) [#/Vol] 321 10*3/uL 140 - 440 10*3/uL [place] RBC (Bld) [#/Vol] 3.39 10*6/uL Low 4.4 - 5.9 10*6/uL [place] WBC (Bld) [#/Vol] 8.5 10*3/uL 3.6 - 10.7 10*3/uL [place] Test Performed by [facility], [address], [place], [place] [address] [place] Calcium, Ionizedon Ionized Ca 4.50 mg/dL 4.3 - 5.2 mg/dL [place] pH (Bld) 7.45 [pH] [place] Test Performed by [facility], [address], [place], [place] [address] [place] Comprehensive Metabolic Pane l w/ Reflex to MGon 11-01-2020 Albumin [Mass/Vol] 2.8 g/dL Low 3.5 - 5 g/dL [place] ALP [Catalytic activity/Vol] 75 U/L 38 - 126 U/L [place] ALT [Catalytic activity/Vol] 172 U/L High 0 - 49 U/L [place] Comment on above: The ALT test is perf ormed by an updated assay method. Please note that the reference intervals have been changed and are now sex specific. Anion gap [Moles/Vol] 3 mmol/L [place] AST [Catalytic activity/Vol] 111 U/L High 15 - 46 U/L [place] Bilirubin Ql (U) 0.7 mg/dL 0.2 - 1.3 mg/dL [place] Calcium [Mass/Vol] 8.3 mg/dL Low 8.4 - 10. 4 mg/dL [place] Chloride [Moles/Vol] 107 mmol/L 98 - 10 7 mmol/L [place] CO2 [Moles/Vol] 30 mmol/L 22 - 30 mmol/L [place] Creatinine [Mass/Vol] 0.65 mg/dL 0.52 - 1.25 mg/dL [place] EGFR IF NonAfrican Turkmen >90.0 >60 mL/min [place] Comment on above: KDIGO guidelines pro [...] MDRD (S/P/Bld) [Vol rate/Area] mL/min/{1.73_m2} >60 mL/min [place] Glucose [Mass/Vol] 130 mg/dL High 70 - 100 mg/dL [place] Potassium [Moles/Vol] 3.9 mmol/L 3.5 - 5.1 mmol/L [place] Protein [Mass/Vol] 6.2 g/dL Low 6.3 - 8.2 g/dL [place] Sodium [Moles/Vol] 140 mmol/L 135 - 145 mmol/L [place] Urea nitrogen [Mass/Vol] 36 mg/dL High 7 - 20 mg/d L [place] D-Dimer, Quantitativeon 10-16 D-Dimer, Quant 4.04 mg/L High 0 - 0.5 mg/L [place] Comment on above: [employer] D-Dimer va lues of <0.50 mg/L FEU can be used in combination with a pre-test probability model (e.g. Well's) to exclude pulmonary embolism (PE) disease, as well as an aid in the diagnosis of deep vein thrombosis (DVT). Interpretation and review of laboratory results Abnormal [place] Test Performed by [facility], [address] [place], [place] [id number] [place] [address] Ferritinon 11-01-2020 Ferritin [Mass/Vol] 1040 ng/mL High 18 - 464 ng/mL [place] Interpretation and review of laboratory results Abnormal [place] Test Performed by [facility], [address], [address] Lactate Dehydrogenaseon 10-16 LD 363 U/L High 120 - 246 U/L [place] Magnesiumon 11-01-2020 Magnesium [Mass/Vol] 2.4 mg/dL High 1.6 - 2 .3 mg/dL [place] Otheron 11-01-2020 Interpretation and review of laboratory results Abnormal [place] Test Performed by [facility], [address], [address] Phosphoruson 11-01-2020 Phosphate [Mass/Vol] 4.1 mg/dL 2.5 - 4 .5 mg/dL [place] Test Performed by [facility], [address], [address] C-Reactive Proteinon 021 CRP [Mass/Vol] 123.9 mg/L High 0 - 6 mg/L [place] Comment on above: . Interpretation and review of laboratory results Abnormal [place] Test Performed by [facility], [address] [place] [address] CBC Auto Differentialon 10-16 Absolute Baso # 0.0 10*3/uL 0 - 0.2 10*3/uL [place] Absolute Neut # 7.7 10*3/uL High 1.8 - 7 10*3/uL [place] Basophils/100 WBC (Bld) 0.3 % 0 - 2 % [place] Eosinophils (Bld) [#/Vol] 0.2 10*3/uL 0 - 0.5 10*3/uL [place] Eosinophils/100 WBC (Bld) 2.2 % 1 - 6 % [place] Erythrocyte distribution width (RBC) [Ratio] 14.4 % 11.5 - 14.5 % [place] Granulocytes/100 WBC (Bld) 79.4 % 40 - 80 % [place] Hematocrit (Bld) [Volume fraction] 31.1 % Low 40 - 52 % [place] Hemoglobin (Bld) [Mass/Vol] 10.2 g/dL Low 13 - 18 g/dL [place] Interpretation and review of laboratory results Abnormal [place] Lymphocytes (Bld) [#/Vol] 0.8 10*3/uL Low 1 - 4.3 10*3/uL [place] Lymphocytes/100 WBC (Bld) 8.4 % Low 20 - 40 % [place] MCH (RBC) [Entitic mass] 29.9 pg 26 - 34 pg [place] MCHC (RBC) [Mass/Vol] 32.8 % 32 - 36 % [place] MCV (RBC) [Entitic vol] 91.2 fL 80 - 98 fL [place] Monocytes (Bld) [#/Vol] 0.9 10*3/uL High 0 - 0.8 10*3/uL [place] Monocytes/100 WBC (Bld) 9.7 % 2 - 10 % [place] Platelet mean volume (Bld) [Entitic vol] 8.2 fL 7.4 - 10.4 fL [place] Platelets (Bld) [#/Vol] 316 10*3/uL 140 - 440 10*3/uL [place] RBC (Bld) [#/Vol] 3.41 10*6/uL Low 4.4 - 5.9 10*6/uL [place] WBC (Bld) [#/Vol] 9.7 10*3/uL 3.6 - 10.7 10*3/uL [place] Calcium, Ionizedon Ionized Ca 4.50 mg/dL 4.3 - 5.2 mg/dL [place] pH (Bld) 7.42 [pH] [place] Comprehensive Metabolic Pane l w/ Reflex to MGon 10-31-2020 Albumin [Mass/Vol] 2.7 g/dL Low 3.5 - 5 g/dL [place], [place] ALP [Catalytic activity/Vol] 70 U/L 38 - 126 U/L [place] ALT [Catalytic activity/Vol] 117 U/L High 0 - 49 U/L [place] Comment on above: The ALT test is perf ormed by an updated assay method. Please note that the reference intervals have been changed and are now sex specific. Anion gap [Moles/Vol] 3 mmol/L [place], [place] AST [Catalytic activity/Vol] 86 U/L High 15 - 46 U/L [place] Bilirubin Ql (U) 0.7 mg/dL 0.2 - 1.3 mg/dL [place] Calcium [Mass/Vol] 8.2 mg/dL Low 8.4 - 10. 4 mg/dL [place] Chloride [Moles/Vol] 106 mmol/L 98 - 10 7 mmol/L [place] CO2 [Moles/Vol] 31 mmol/L High 22 - 30 mmol/L [place] Creatinine [Mass/Vol] 0.69 mg/dL 0.52 - 1.25 mg/dL [place] EGFR IF NonAfrican Turk[place] >90.0 >60 mL/min [place], [place] Comment on above: KDIGO guidelines pro [...] [Vol rate/Area] mL/min/{1.73_m2} >60 mL/min [facility] [place] Glucose [Mass/Vol] 135 mg/dL High 70 - 100 mg/dL [facility], [place] Potassium [Moles/Vol] 4.5 mmol/L 3.5 - 5.1 mmol/L [facility] [employer] [place], [place] Protein [Mass/Vol] 6.1 g/dL Low 6.3 - 8.2 g/dL [facility] [employer], [place] Sodium [Moles/Vol] 140 mmol/L 135 - 145 mmol/L [facility] [employer], [place] Urea nitrogen [Mass/Vol] 38 mg/dL High 7 - 20 mg/d L [facility] D-Dimer, Quantitativeon 10-16 D-Dimer, Quant 5.26 mg/L High 0 - 0.5 mg/L [place], [place] Comment on above: [employer] D-Dimer va lues of <0.50 mg/L FEU can be used in combination with a pre-test probability model (e.g. Well's) to exclude pulmonary embolism (PE) disease, as well as an aid in the diagnosis of deep vein thrombosis (DVT). Interpretation and review of laboratory results Abnormal [facility] Test Performed by [employer], [address] [place], [place] [address] [facility] [employer] [place] Ferritinon 10-31-2020 Ferritin [Mass/Vol] 957 ng/mL High 18 - 464 ng/mL [facility] [employer], [place] Interpretation and review of laboratory results Abnormal [facility], [place] Test Performed by [employer], [address], [place], [place] [address] [facility] [employer] [place], [place] Lactate Dehydrogenaseon 10-16 LD 310 U/L High 120 - 246 U/L [place] Magnesiumon 10-31-2020 Magnesium [Mass/Vol] 2.5 mg/dL High 1.6 - 2 .3 mg/dL [place] Otheron 10-31-2020 Interpretation and review of laboratory results Abnormal [place] Test Performed by [facility], [address], [address] Test Performed by [facility], [address], [address] POCT Arterialon 10-31-2020 Base Excess, Arterial 3.4 mmol/L High -3 - 3 mmol/L [place] HCO3, Arterial 27.4 mmol/L High 21 - 25 mmol/L [place] Interpretation and review of laboratory results Abnormal [place] Oxygen saturation in Blood 97.4 % 95 - 100 % [place] pCO2, Arterial 38.8 mm[Hg] 35 - 45 mm[Hg] [place], [place] pH, Arterial 7.458 [place] pO2, Arterial 89.7 mm[Hg] 80 - 100 mm[Hg] [place] Sodium [Moles/Vol] 40 mmol/L [place] Comment on above: Performed by DELFINO ID : [id number] [place], [place] TCO2, Arterial 28.6 mmol/L High 23 - 27 mmol/L [place] Test Performed by [facility] [employer] [facility], [address], [address] Phosphoruson 10-31-2020 Phosphate [Mass/Vol] 3.8 mg/dL 2.5 - 4 .5 mg/dL [place] Test Performed by [facility] [employer] [facility], [address], [address] XR CHEST PORTABLEon 10-31-19 Jose Cruz, [facility] Incoming Radiology Results From [facility] - 10/31/2020 10:57 AM EST Patient Name: JOSEPH BROWN Diagnostic Radiology ACCESSION EXAM DATE/TIME PROCEDURE ORDERING PROVIDER [id number] 10/31/2020 10:02 EST CR Chest Portable MD ALFORD JAMES A CPT code 82007 Reason For Exam (CR Chest Portable) pneumonia [...] RISA Transcribed Date and Time: 10/31/2020 10:57 [place], [place] Patient Name: JOSEPH BROWN Diagnostic Radiology ACCESSION EXAM DATE/TIME PROCEDURE ORDERING PROVIDER [id number] 10/31/2020 10:02 EST CR Chest Portable MD ALFORD JAMES A CPT code 24886 Reason For Exam (CR Chest Portable) pneumonia [...] RISA Transcribed Date and Time: 10/31/2020 10:57 [place], [place] C-Reactive Proteinon 021 CRP [Mass/Vol] 77.5 mg/L High 0 - 6 mg/L [place], [place] Comment on above: . CBC Auto Differentialon 10-16 Absolute Baso # 0.1 10*3/uL 0 - 0.2 10*3/uL [place] Absolute Neut # 9.7 10*3/uL High 1.8 - 7 10*3/uL [place] Basophils/100 WBC (Bld) 0.5 % 0 - 2 % [place] Eosinophils (Bld) [#/Vol] 0.2 10*3/uL 0 - 0.5 10*3/uL [place] Eosinophils/100 WBC (Bld) 1.5 % 1 - 6 % [place] Erythrocyte distribution width (RBC) [Ratio] 14.5 % 11.5 - 14.5 % [place] Granulocytes/100 WBC (Bld) 82.9 % High 40 - 80 % [place] Hematocrit (Bld) [Volume fraction] 33.2 % Low 40 - 52 % [place] Hemoglobin (Bld) [Mass/Vol] 10.9 g/dL Low 13 - 18 g/dL [place] Interpretation and review of laboratory results Abnormal [place] Lymphocytes (Bld) [#/Vol] 0.8 10*3/uL Low 1 - 4.3 10*3/uL [place], [place] Lymphocytes/100 WBC (Bld) 7.0 % Low 20 - 40 % [place] MCH (RBC) [Entitic mass] 29.9 pg 26 - 34 pg [place] MCHC (RBC) [Mass/Vol] 32.9 % 32 - 36 % [place] MCV (RBC) [Entitic vol] 91.0 fL 80 - 98 fL [place], [place] Monocytes (Bld) [#/Vol] 0.9 10*3/uL High 0 - 0.8 10*3/uL [place], [place] Monocytes/100 WBC (Bld) 8.1 % 2 - 10 % [place] Platelet mean volume (Bld) [Entitic vol] 8.6 fL 7.4 - 10.4 fL [place] Platelets (Bld) [#/Vol] 300 10*3/uL 140 - 440 10*3/uL [place] RBC (Bld) [#/Vol] 3.65 10*6/uL Low 4.4 - 5.9 10*6/uL [place] WBC (Bld) [#/Vol] 11.7 10*3/uL High 3.6 - 10.7 10*3/uL [place] Test Performed by [facility], [address], [place], [place] [address] [place], [place] Calcium, Ionizedon Ionized Ca 4.40 mg/dL 4.3 - 5.2 mg/dL [place] pH (Bld) 7.43 [pH] [place] Test Performed by [facility], [address], [place], [place] [address] [place] Comprehensive Metabolic Pane l w/ Reflex to MGon 10-30-2020 Albumin [Mass/Vol] 2.8 g/dL Low 3.5 - 5 g/dL [place] ALP [Catalytic activity/Vol] 82 U/L 38 - 126 U/L [place] ALT [Catalytic activity/Vol] 73 U/L High 0 - 49 U/L [place], [place] Comment on above: The ALT test is perf ormed by an updated assay method. Please note that the reference intervals have been changed and are now sex specific. Anion gap [Moles/Vol] 3 mmol/L [place], [place] AST [Catalytic activity/Vol] 64 U/L High 15 - 46 U/L [place] Bilirubin Ql (U) 0.8 mg/dL 0.2 - 1.3 mg/dL [place] Calcium [Mass/Vol] 8.3 mg/dL Low 8.4 - 10. 4 mg/dL [place] Chloride [Moles/Vol] 103 mmol/L 98 - 10 7 mmol/L [place] CO2 [Moles/Vol] 32 mmol/L High 22 - 30 mmol/L [place] Creatinine [Mass/Vol] 0.63 mg/dL 0.52 - 1.25 mg/dL [place] EGFR IF NonAfrican Turkmen >90.0 >60 mL/min [place], [place] Comment on above: KDIGO guidelines pro [...] MDRD (S/P/Bld) [Vol rate/Area] mL/min/{1.73_m2} >60 mL/min [place] Glucose [Mass/Vol] 143 mg/dL High 70 - 100 mg/dL [place] Potassium [Moles/Vol] 4.1 mmol/L 3.5 - 5.1 mmol/L [place] Protein [Mass/Vol] 6.2 g/dL Low 6.3 - 8.2 g/dL [place] Sodium [Moles/Vol] 138 mmol/L 135 - 145 mmol/L [place] Urea nitrogen [Mass/Vol] 32 mg/dL High 7 - 20 mg/d L [facility] [place] D-Dimer, Quantitativeon 10-16 D-Dimer, Quant 6.27 mg/L High 0 - 0.5 mg/L [place], [place] Comment on above: [employer] D-Dimer va lues of <0.50 mg/L FEU can be used in combination with a pre-test probability model (e.g. Well's) to exclude pulmonary embolism (PE) disease, as well as an aid in the diagnosis of deep vein thrombosis (DVT). Interpretation and review of laboratory results Abnormal [facility] [employer] [place] Test Performed by [employer] [facility], [address], [place], [place] [address] [facility] [place] Ferritinon 10-30-2020 Ferritin [Mass/Vol] 835 ng/mL High 18 - 464 ng/mL [place], [place] Interpretation and review of laboratory results Abnormal [facility], [place] Test Performed by [facility], [address], [place], [place] [id number] [place] [address] Lactate Dehydrogenaseon 10-16 LD 347 U/L High 120 - 246 U/L [place] Magnesiumon 10-30-2020 Magnesium [Mass/Vol] 2.2 mg/dL 1.6 - 2 .3 mg/dL [facility], [place] Otheron 10-30-2020 Interpretation and review of laboratory results Abnormal [place] Test Performed by [employer] [facility], [address], [address], [place] POCT Arterialon 10-30-2020 Base Excess, Arterial 3.7 mmol/L High -3 - 3 mmol/L [facility], [place] HCO3, Arterial 27.6 mmol/L High 21 - 25 mmol/L [facility], [place] Interpretation and review of laboratory results Abnormal [place], [place] Oxygen saturation in Blood 93.9 % Low 95 - 100 % [place] pCO2, Arterial 38.4 mm[Hg] 35 - 45 mm[Hg] [facility], [place] pH, Arterial 7.465 [place] pO2, Arterial 65.9 mm[Hg] Low 80 - 100 mm[Hg] [place], [place] Sodium [Moles/Vol] 40 mmol/L [place], [place] Comment on above: Performed by DELFINO ID : [id number] [place], [place] TCO2, Arterial 28.8 mmol/L High 23 - 27 mmol/L [facility], [place] Test Performed by [employer] [facility], [address] Phosphoruson 10-30-2020 Phosphate [Mass/Vol] 3.4 mg/dL 2.5 - 4 .5 mg/dL [facility], [place] Test Performed by [facility], [address], [address] C-Reactive Proteinon 021 CRP [Mass/Vol] 131.1 mg/L High 0 - 6 mg/L [place], [place] Comment on above: . Interpretation and review of laboratory results Abnormal [place], [place] Test Performed by [facility] [employer] [facility], [address], [place], [place] [address] [place] CBC Auto Differentialon 10-16 Absolute Baso # 0.0 10*3/uL 0 - 0.2 10*3/uL [place] Absolute Neut # 8.7 10*3/uL High 1.8 - 7 10*3/uL [place], [place] Basophils/100 WBC (Bld) 0.1 % 0 - 2 % [place] Eosinophils (Bld) [#/Vol] 0.2 10*3/uL 0 - 0.5 10*3/uL [place] Eosinophils/100 WBC (Bld) 2.1 % 1 - 6 % [place] Erythrocyte distribution width (RBC) [Ratio] 14.7 % High 11.5 - 14.5 % [place] Granulocytes/100 WBC (Bld) 83.2 % High 40 - 80 % [place] Hematocrit (Bld) [Volume fraction] 32.4 % Low 40 - 52 % [place] Hemoglobin (Bld) [Mass/Vol] 10.7 g/dL Low 13 - 18 g/dL [place] Interpretation and review of laboratory results Abnormal [place] Lymphocytes (Bld) [#/Vol] 0.7 10*3/uL Low 1 - 4.3 10*3/uL [place] Lymphocytes/100 WBC (Bld) 6.7 % Low 20 - 40 % [place] MCH (RBC) [Entitic mass] 30.0 pg 26 - 34 pg [place] MCHC (RBC) [Mass/Vol] 33.1 % 32 - 36 % [place] MCV (RBC) [Entitic vol] 90.6 fL 80 - 98 fL [place], [place] Monocytes (Bld) [#/Vol] 0.8 10*3/uL 0 - 0.8 10*3/uL [place], [place] Monocytes/100 WBC (Bld) 7.9 % 2 - 10 % [place], [place] Platelet mean volume (Bld) [Entitic vol] 8.2 fL 7.4 - 10.4 fL [place], [place] Platelets (Bld) [#/Vol] 278 10*3/uL 140 - 440 10*3/uL [place] RBC (Bld) [#/Vol] 3.57 10*6/uL Low 4.4 - 5.9 10*6/uL [place] WBC (Bld) [#/Vol] 10.4 10*3/uL 3.6 - 10.7 10*3/uL [place] Test Performed by [facility], [address] [place], [place] [address] [place], [place] Calcium, Ionizedon 1 Ionized Ca 4.50 mg/dL 4.3 - 5.2 mg/dL [place] pH (Bld) 7.45 [pH] [place], [place] Test Performed by [facility], [address] [place], [place] [id number] [place] [address] Comprehensive Metabolic Pane l w/ Reflex to MGon 10-29-2020 Albumin [Mass/Vol] 2.8 g/dL Low 3.5 - 5 g/dL [place] ALP [Catalytic activity/Vol] 68 U/L 38 - 126 U/L [place] ALT [Catalytic activity/Vol] 49 U/L 0 - 49 U/L [place] Comment on above: The ALT test is perf ormed by an updated assay method. Please note that the reference intervals have been changed and are now sex specific. Anion gap [Moles/Vol] 4 mmol/L [place], [place] AST [Catalytic activity/Vol] 53 U/L High 15 - 46 U/L [place] Bilirubin Ql (U) 0.7 mg/dL 0.2 - 1.3 mg/dL [place] Calcium [Mass/Vol] 8.2 mg/dL Low 8.4 - 10. 4 mg/dL [place], [place] Chloride [Moles/Vol] 107 mmol/L 98 - 10 7 mmol/L [place] CO2 [Moles/Vol] 28 mmol/L 22 - 30 mmol/L [place], [place] Creatinine [Mass/Vol] 0.6 mg/dL 0.52 - 1.25 mg/dL [place] EGFR IF NonAfrican Turkmen >90.0 >60 mL/min [place] Comment on above: KDIGO guidelines pro [...] MDRD (S/P/Bld) [Vol rate/Area] mL/min/{1.73_m2} >60 mL/min [place] Glucose [Mass/Vol] 118 mg/dL High 70 - 100 mg/dL [place] Potassium [Moles/Vol] 4.2 mmol/L 3.5 - 5.1 mmol/L [place] Protein [Mass/Vol] 6.0 g/dL Low 6.3 - 8.2 g/dL [place] Sodium [Moles/Vol] 139 mmol/L 135 - 145 mmol/L [place] Urea nitrogen [Mass/Vol] 31 mg/dL High 7 - 20 mg/d L [place] D-Dimer, Quantitativeon 10-16 D-Dimer, Quant 5.62 mg/L High 0 - 0.5 mg/L [place], [place] Comment on above: [employer] D-Dimer va lues of <0.50 mg/L FEU can be used in combination with a pre-test probability model (e.g. Well's) to exclude pulmonary embolism (PE) disease, as well as an aid in the diagnosis of deep vein thrombosis (DVT). Interpretation and review of laboratory results Abnormal [facility] [employer] [place], [place] Test Performed by [employer] [facility], [address], [place], [place] [id number] [place] [address], [place] Ferritinon 10-29-2020 Ferritin [Mass/Vol] 618 ng/mL High 18 - 464 ng/mL [place] Interpretation and review of laboratory results Abnormal [facility] [employer] [place], [place] Test Performed by [employer] [facility], [address], [place], [place] [id number] [place] [address] [employer], [place] Lactate Dehydrogenaseon 10-16 LD 292 U/L High 120 - 246 U/L [place] Magnesiumon 10-29-2020 Magnesium [Mass/Vol] 2.3 mg/dL 1.6 - 2 .3 mg/dL [facility] [employer] [place], [place] Otheron 10-29-2020 Interpretation and review of laboratory results Abnormal [facility] [employer] Test Performed by [employer] [facility], [address], [place], [place] [id number] [place] [address] [employer] [place], [place] POCT Arterialon 10-29-2020 Base Excess, Arterial 2.9 mmol/L -3 - 3 mmol/L [facility] [employer] [place], [place] HCO3, Arterial 27.1 mmol/L High 21 - 25 mmol/L [place] Interpretation and review of laboratory results Abnormal [facility] [employer] [place] Oxygen saturation in Blood 94.3 % Low 95 - 100 % [facility] [employer] [place], [place] pCO2, Arterial 39.1 mm[Hg] 35 - 45 mm[Hg] [facility] [employer] [place], [place] pH, Arterial 7.449 [place] pO2, Arterial 69.0 mm[Hg] Low 80 - 100 mm[Hg] [facility] [place] Sodium [Moles/Vol] 45 mmol/L [place], [place] Comment on above: Performed by CLIA ID : [id number] [place], [place] TCO2, Arterial 28.3 mmol/L High 23 - 27 mmol/L [place] Test Performed by [facility], [address], [place], [place] [address] [place], [place] Phosphoruson 10-29-2020 Phosphate [Mass/Vol] 3.3 mg/dL 2.5 - 4 .5 mg/dL [place] Test Performed by [facility], [address], [place], [place] [address] [place], [place] XR CHEST PORTABLEon 10-29-19 Patient Name: JOSEPH BROWN Diagnostic Radiology ACCESSION EXAM DATE/TIME PROCEDURE ORDERING PROVIDER [id number] 10/29/2020 05:58 EST CR Chest Portable AMARILIS LUKE JEFFREY A CPT code 81967 Reason For Exam (CR Chest Portable) pneumonia [...] infiltrates are present. Report Dictated on Workstation: [id number]-[email or web address] --- Final --- Dictating Physician: DO CID ALFRED Signed Date and Time: 10/29/2020 6:15 am Signed by: DO CID ALFRED Transcribed Date and Time: 10/29/2020 6:16 [place], [place] Jose Cruz, [facility] Incoming Radiology Results From [facility] - 10/29/2020 6:16 AM EST Patient Name: JOSEPH BROWN Diagnostic Radiology ACCESSION EXAM DATE/TIME PROCEDURE ORDERING PROVIDER [id number] 10/29/2020 05:58 EST CR Chest Portable AMARILIS LUKE JEFFREY A CPT code 30870 Reason For Exam (CR Chest Portable) pneumonia [...] ALFRED Transcribed Date and Time: 10/29/2020 6:16 [place], [place] C-Reactive Proteinon 021 CRP [Mass/Vol] 88 mg/L High 0 - 6 mg/L [place] Comment on above: . CBC Auto Differentialon 10-16 Absolute Baso # 0.0 10*3/uL 0 - 0.2 10*3/uL [place], [place] Absolute Neut # 6.4 10*3/uL 1.8 - 7 10*3/uL [place], [place] Basophils/100 WBC (Bld) 0.2 % 0 - 2 % [place] Eosinophils (Bld) [#/Vol] 0.2 10*3/uL 0 - 0.5 10*3/uL [place], [place] Eosinophils/100 WBC (Bld) 3.0 % 1 - 6 % [place] Erythrocyte distribution width (RBC) [Ratio] 14.4 % 11.5 - 14.5 % [place], [place] Granulocytes/100 WBC (Bld) 79.9 % 40 - 80 % [place] Hematocrit (Bld) [Volume fraction] 31.9 % Low 40 - 52 % [place] Hemoglobin (Bld) [Mass/Vol] 10.7 g/dL Low 13 - 18 g/dL [place] Interpretation and review of laboratory results Abnormal [place] Lymphocytes (Bld) [#/Vol] 0.7 10*3/uL Low 1 - 4.3 10*3/uL [place] Lymphocytes/100 WBC (Bld) 8.7 % Low 20 - 40 % [place] MCH (RBC) [Entitic mass] 30.4 pg 26 - 34 pg [place] MCHC (RBC) [Mass/Vol] 33.5 % 32 - 36 % [place] MCV (RBC) [Entitic vol] 90.7 fL 80 - 98 fL [place], [place] Monocytes (Bld) [#/Vol] 0.7 10*3/uL 0 - 0.8 10*3/uL [place], [place] Monocytes/100 WBC (Bld) 8.2 % 2 - 10 % [place] Platelet mean volume (Bld) [Entitic vol] 8.2 fL 7.4 - 10.4 fL [place] Platelets (Bld) [#/Vol] 235 10*3/uL 140 - 440 10*3/uL [place] RBC (Bld) [#/Vol] 3.51 10*6/uL Low 4.4 - 5.9 10*6/uL [place] WBC (Bld) [#/Vol] 8.0 10*3/uL 3.6 - 10.7 10*3/uL [place] Test Performed by [facility], [address] [place], [place] [id number] [place] [address] Calcium, Ionizedon Ionized Ca 4.40 mg/dL 4.3 - 5.2 mg/dL [place] pH (Bld) 7.45 [pH] [place] Test Performed by [facility], [address] [place], [place] [address] [place] Comprehensive Metabolic Pane l w/ Reflex to MGon 10-28-2020 Albumin [Mass/Vol] 2.8 g/dL Low 3.5 - 5 g/dL [place] ALP [Catalytic activity/Vol] 64 U/L 38 - 126 U/L [place] ALT [Catalytic activity/Vol] 40 U/L 0 - 49 U/L [place] Comment on above: The ALT test is perf ormed by an updated assay method. Please note that the reference intervals have been changed and are now sex specific. Anion gap [Moles/Vol] 6 mmol/L [place] AST [Catalytic activity/Vol] 45 U/L 15 - 46 U/L [place] Bilirubin Ql (U) 0.6 mg/dL 0.2 - 1.3 mg/dL [place] Calcium [Mass/Vol] 8.2 mg/dL Low 8.4 - 10. 4 mg/dL [place] Chloride [Moles/Vol] 106 mmol/L 98 - 10 7 mmol/L [place] CO2 [Moles/Vol] 28 mmol/L 22 - 30 mmol/L [place] Creatinine [Mass/Vol] 0.64 mg/dL 0.52 - 1.25 mg/dL [place] EGFR IF NonAfrican Turkmen >90.0 >60 mL/min [place] Comment on above: KDIGO guidelines pro [...] MDRD (S/P/Bld) [Vol rate/Area] mL/min/{1.73_m2} >60 mL/min [place] Glucose [Mass/Vol] 146 mg/dL High 70 - 100 mg/dL [place] Potassium [Moles/Vol] 4.2 mmol/L 3.5 - 5.1 mmol/L [place] Protein [Mass/Vol] 6.0 g/dL Low 6.3 - 8.2 g/dL [place] Sodium [Moles/Vol] 140 mmol/L 135 - 145 mmol/L [place], [place] Urea nitrogen [Mass/Vol] 32 mg/dL High 7 - 20 mg/d L [place] Culture, Respiratoryon 10-28 Interpretation and review of laboratory results Abnormal [place] Respiratory Culture Few normal respiratory yolanda. Abnormal [place] Respiratory Culture Moderate [place] Respiratory Culture Streptococcus pneumoniae Abnormal [place] Test Performed by [facility], [address] [place] [address] [place], [place] D-Dimer, Quantitativeon 10-16 D-Dimer, Quant 3.85 mg/L High 0 - 0.5 mg/L [place] Comment on above: [employer] D-Dimer va lues of <0.50 mg/L FEU can be used in combination with a pre-test probability model (e.g. Well's) to exclude pulmonary embolism (PE) disease, as well as an aid in the diagnosis of deep vein thrombosis (DVT). Interpretation and review of laboratory results Abnormal [place] Test Performed by [facility] [facility], [address], [place], [place] [address] [place], [place] Ferritinon 10-28-2020 Ferritin [Mass/Vol] 594 ng/mL High 18 - 464 ng/mL [place] Interpretation and review of laboratory results Abnormal [place] Test Performed by [employer] [facility], [address], [place], [place] [address] [place] Lactate Dehydrogenaseon 10-16 LD 283 U/L High 120 - 246 U/L [place] Magnesiumon 10-28-2020 Magnesium [Mass/Vol] 2.5 mg/dL High 1.6 - 2 .3 mg/dL [place] Otheron 10-28-2020 Interpretation and review of laboratory results Abnormal [place] Test Performed by [facility], [address] [place], [place] [id number] [place] [address] POCT Arterialon 10-28-2020 Base Excess, Arterial 3.0 mmol/L -3 - 3 mmol/L [place] HCO3, Arterial 27.1 mmol/L High 21 - 25 mmol/L [place] Interpretation and review of laboratory results Abnormal [place] Oxygen saturation in Blood 93.8 % Low 95 - 100 % [place] pCO2, Arterial 38.5 mm[Hg] 35 - 45 mm[Hg] [place] pH, Arterial 7.455 [place] pO2, Arterial 66.3 mm[Hg] Low 80 - 100 mm[Hg] [place] Sodium [Moles/Vol] 45 mmol/L [place] Comment on above: Performed by CLIA ID : [id number] [place], [place] TCO2, Arterial 28.3 mmol/L High 23 - 27 mmol/L [place] Test Performed by [facility], [address] [place], [place] [id number] [place] [address] Phosphoruson 10-28-2020 Phosphate [Mass/Vol] 3.6 mg/dL 2.5 - 4 .5 mg/dL [place] Test Performed by [facility], [address] [place], [place] [id number] [place] [address] C-Reactive Proteinon 021 CRP [Mass/Vol] 72 mg/L High 0 - 6 mg/L [place] Comment on above: . CBC Auto Differentialon 10-16 Absolute Baso # 0.0 10*3/uL 0 - 0.2 10*3/uL [place] Absolute Neut # 5.8 10*3/uL 1.8 - 7 10*3/uL [place] Basophils/100 WBC (Bld) 0.2 % 0 - 2 % [place] Eosinophils (Bld) [#/Vol] 0.1 10*3/uL 0 - 0.5 10*3/uL [place] Eosinophils/100 WBC (Bld) 1.6 % 1 - 6 % [place] Erythrocyte distribution width (RBC) [Ratio] 14.4 % 11.5 - 14.5 % [place] Granulocytes/100 WBC (Bld) 80.4 % High 40 - 80 % [place] Hematocrit (Bld) [Volume fraction] 31.6 % Low 40 - 52 % [place] Hemoglobin (Bld) [Mass/Vol] 10.5 g/dL Low 13 - 18 g/dL [place] Interpretation and review of laboratory results Abnormal [place] Lymphocytes (Bld) [#/Vol] 0.6 10*3/uL Low 1 - 4.3 10*3/uL [place] Lymphocytes/100 WBC (Bld) 8.2 % Low 20 - 40 % [place] MCH (RBC) [Entitic mass] 29.9 pg 26 - 34 pg [place] MCHC (RBC) [Mass/Vol] 33.2 % 32 - 36 % [place] MCV (RBC) [Entitic vol] 90.1 fL 80 - 98 fL [place] Monocytes (Bld) [#/Vol] 0.7 10*3/uL 0 - 0.8 10*3/uL [place] Monocytes/100 WBC (Bld) 9.6 % 2 - 10 % [place] Platelet mean volume (Bld) [Entitic vol] 7.9 fL 7.4 - 10.4 fL [place] Platelets (Bld) [#/Vol] 245 10*3/uL 140 - 440 10*3/uL [place] RBC (Bld) [#/Vol] 3.51 10*6/uL Low 4.4 - 5.9 10*6/uL [place] WBC (Bld) [#/Vol] 7.2 10*3/uL 3.6 - 10.7 10*3/uL [place] Test Performed by [facility], [address], [place], [place] [address] [place] Calcium, Ionizedon Ionized Ca 4.40 mg/dL 4.3 - 5.2 mg/dL [place] pH (Bld) 7.46 [pH] [place] Test Performed by [facility], [address], [place], [place] [address] [place] Comprehensive Metabolic Pane l w/ Reflex to MGon 10-27-2020 Albumin [Mass/Vol] 2.9 g/dL Low 3.5 - 5 g/dL [place] ALP [Catalytic activity/Vol] 61 U/L 38 - 126 U/L [place] ALT [Catalytic activity/Vol] 29 U/L 0 - 49 U/L [place] Comment on above: The ALT test is perf ormed by an updated assay method. Please note that the reference intervals have been changed and are now sex specific. Anion gap [Moles/Vol] 5 mmol/L [place], [place] AST [Catalytic activity/Vol] 41 U/L 15 - 46 U/L [place] Bilirubin Ql (U) 0.7 mg/dL 0.2 - 1.3 mg/dL [place] Calcium [Mass/Vol] 8.0 mg/dL Low 8.4 - 10. 4 mg/dL [place] Chloride [Moles/Vol] 104 mmol/L 98 - 10 7 mmol/L [place] CO2 [Moles/Vol] 31 mmol/L High 22 - 30 mmol/L [place] Creatinine [Mass/Vol] 0.62 mg/dL 0.52 - 1.25 mg/dL [place] EGFR IF NonAfrican [place] >90.0 >60 mL/min [place] Comment on above: KDIGO guidelines pro [...] MDRD (S/P/Bld) [Vol rate/Area] mL/min/{1.73_m2} >60 mL/min [place] Glucose [Mass/Vol] 126 mg/dL High 70 - 100 mg/dL [place] Potassium [Moles/Vol] 4.3 mmol/L 3.5 - 5.1 mmol/L [place] Protein [Mass/Vol] 6.0 g/dL Low 6.3 - 8.2 g/dL [place] Sodium [Moles/Vol] 139 mmol/L 135 - 145 mmol/L [place] Urea nitrogen [Mass/Vol] 30 mg/dL High 7 - 20 mg/d L [place] D-Dimer, Quantitativeon 10-16 D-Dimer, Quant 4.7 mg/L High 0 - 0.5 mg/L [place], [place] Comment on above: [facility] D-Dimer va lues of <0.50 mg/L FEU can be used in combination with a pre-test probability model (e.g. Well's) to exclude pulmonary embolism (PE) disease, as well as an aid in the diagnosis of deep vein thrombosis (DVT). Interpretation and review of laboratory results Abnormal [place] Test Performed by [facility], [address], [place], [place] [address] [place] Ferritinon 10-27-2020 Ferritin [Mass/Vol] 567 ng/mL High 18 - 464 ng/mL [place] Interpretation and review of laboratory results Abnormal [place] Test Performed by [facility], [address], [place], [place] [address] [place] Lactate Dehydrogenaseon 10-16 LD 310 U/L High 120 - 246 U/L [place] Magnesiumon 10-27-2020 Magnesium [Mass/Vol] 2.5 mg/dL High 1.6 - 2 .3 mg/dL [place] Otheron 10-27-2020 Interpretation and review of laboratory results Abnormal [place] Test Performed by [facility], [address], [place], [place] [id number] [place] [address] POCT Arterialon 10-27-2020 Base Excess, Arterial 3.6 mmol/L High -3 - 3 mmol/L [place] HCO3, Arterial 27.7 mmol/L High 21 - 25 mmol/L [place] Interpretation and review of laboratory results Abnormal [place] Oxygen saturation in Blood 94.7 % Low 95 - 100 % [place] pCO2, Arterial 39.5 mm[Hg] 35 - 45 mm[Hg] [place] pH, Arterial 7.455 [place] pO2, Arterial 70.2 mm[Hg] Low 80 - 100 mm[Hg] [place] Sodium [Moles/Vol] 50 mmol/L [place] Comment on above: Performed by BABATUNDEIA ID : [id number] [place], [place] TCO2, Arterial 29 mmol/L High 23 - 27 mmol/L [place] Test Performed by [facility], [address] [place], [place] [id number] [place] [address] PROCALCITONINon 10-27-2020 Interpretation and review of laboratory results Abnormal [place] Procalcitonin 0.17 ng/mL Abnormal <0.10 [place] Sodium [Moles/Vol] See Below [place], [place] Comment on above: PCT <0.50 = Low risk of severe sepsis and/or septic shock. PCT >2.00 = High risk of severe sepsis and/or septic shock. Test Performed by [facility], [address] [place] [address] [place] Phosphoruson 10-27-2020 Phosphate [Mass/Vol] 3.7 mg/dL 2.5 - 4 .5 mg/dL [place] XR CHEST PORTABLEon 10-27-19 Patient Name: JOSEPH BROWN Diagnostic Radiology ACCESSION EXAM DATE/TIME PROCEDURE ORDERING PROVIDER [id number] 10/27/2020 05:35 EST CR Chest Portable MD ALFORD JAMES A CPT code 68107 Reason For Exam (CR Chest Portable) pneumonia, [...] bilateral ill-defined infiltrates. Report Dictated on Workstation: [facility] --- Final --- Dictating Physician: DO CID ALFRED Signed Date and Time: 10/27/2020 4:45 am Signed by: DO CID ALFRED Transcribed Date and Time: 10/27/2020 5:35 [place], [place] Jose Cruz, [facility] Incoming Radiology Results From [employer] - 10/27/2020 5:35 AM EST Patient Name: JOSEPH BROWN Diagnostic Radiology ACCESSION EXAM DATE/TIME PROCEDURE ORDERING PROVIDER [id number] 10/27/2020 05:35 EST CR Chest Portable MD ALFORD JAMES A CPT code 11806 Reason For Exam (CR Chest Portable) pneumonia, [...] bilateral ill-defined infiltrates. Report Dictated on Workstation: [facility] --- Final --- Dictating Physician: DO CID ALFRED Signed Date and Time: 10/27/2020 4:45 am Signed by: DO CID ALFRED Transcribed Date and Time: 10/27/2020 5:35 [place], [place] C-Reactive Proteinon 021 CRP [Mass/Vol] 131.8 mg/L High 0 - 6 mg/L [place] Comment on above: . Interpretation and review of laboratory results Abnormal [place] Test Performed by [facility], [address] [place], [place] [address] [place], [place] CBC Auto Differentialon 10-16 Absolute Baso # 0.0 10*3/uL 0 - 0.2 10*3/uL [place] Absolute Neut # 6.3 10*3/uL 1.8 - 7 10*3/uL [place] Basophils/100 WBC (Bld) 0.0 % 0 - 2 % [place] Eosinophils (Bld) [#/Vol] 0.0 10*3/uL 0 - 0.5 10*3/uL [place] Eosinophils/100 WBC (Bld) 0.4 % Low 1 - 6 % [place] Erythrocyte distribution width (RBC) [Ratio] 14.2 % 11.5 - 14.5 % [place] Granulocytes/100 WBC (Bld) 88.2 % High 40 - 80 % [place] Hematocrit (Bld) [Volume fraction] 28.9 % Low 40 - 52 % [place] Hemoglobin (Bld) [Mass/Vol] 9.7 g/dL Low 13 - 18 g/dL [place] Interpretation and review of laboratory results Abnormal [place] Lymphocytes (Bld) [#/Vol] 0.4 10*3/uL Low 1 - 4.3 10*3/uL [place] Lymphocytes/100 WBC (Bld) 5.0 % Low 20 - 40 % [place] MCH (RBC) [Entitic mass] 30.1 pg 26 - 34 pg [place] MCHC (RBC) [Mass/Vol] 33.4 % 32 - 36 % [place] MCV (RBC) [Entitic vol] 90.2 fL 80 - 98 fL [place] Monocytes (Bld) [#/Vol] 0.5 10*3/uL 0 - 0.8 10*3/uL [place], [place] Monocytes/100 WBC (Bld) 6.4 % 2 - 10 % [place] Platelet mean volume (Bld) [Entitic vol] 8.4 fL 7.4 - 10.4 fL [place] Platelets (Bld) [#/Vol] 190 10*3/uL 140 - 440 10*3/uL [place] RBC (Bld) [#/Vol] 3.21 10*6/uL Low 4.4 - 5.9 10*6/uL [place] WBC (Bld) [#/Vol] 7.1 10*3/uL 3.6 - 10.7 10*3/uL [place] Test Performed by [facility], [address], [place], [place] [address] [place], [place] Calcium, Ionizedon Ionized Ca 4.40 mg/dL 4.3 - 5.2 mg/dL [place] pH (Bld) 7.44 [pH] [place] Test Performed by [facility], [address], [place], [place] [address] [place] Comprehensive Metabolic Pane l w/ Reflex to MGon 10-26-2020 Albumin [Mass/Vol] 2.7 g/dL Low 3.5 - 5 g/dL [place] ALP [Catalytic activity/Vol] 59 U/L 38 - 126 U/L [place] ALT [Catalytic activity/Vol] 23 U/L 0 - 49 U/L [place] Comment on above: The ALT test is perf ormed by an updated assay method. Please note that the reference intervals have been changed and are now sex specific. Anion gap [Moles/Vol] 5 mmol/L [place], [place] AST [Catalytic activity/Vol] 36 U/L 15 - 46 U/L [place] Bilirubin Ql (U) 0.6 mg/dL 0.2 - 1.3 mg/dL [place] Calcium [Mass/Vol] 7.9 mg/dL Low 8.4 - 10. 4 mg/dL [place] Chloride [Moles/Vol] 102 mmol/L 98 - 10 7 mmol/L [place] CO2 [Moles/Vol] 31 mmol/L High 22 - 30 mmol/L [place] Creatinine [Mass/Vol] 0.66 mg/dL 0.52 - 1.25 mg/dL [place] EGFR IF NonAfrican Turkmen >90.0 >60 mL/min [place], [place] Comment on above: KDIGO guidelines pro [...] MDRD (S/P/Bld) [Vol rate/Area] mL/min/{1.73_m2} >60 mL/min [place] Glucose [Mass/Vol] 189 mg/dL High 70 - 100 mg/dL [place] Potassium [Moles/Vol] 3.9 mmol/L 3.5 - 5.1 mmol/L [place] Protein [Mass/Vol] 5.5 g/dL Low 6.3 - 8.2 g/dL [place] Sodium [Moles/Vol] 137 mmol/L 135 - 145 mmol/L [place] Urea nitrogen [Mass/Vol] 34 mg/dL High 7 - 20 mg/d L [place] D-Dimer, Quantitativeon 10-16 D-Dimer, Quant 6.66 mg/L High 0 - 0.5 mg/L [place] Comment on above: [employer] D-Dimer va lues of <0.50 mg/L FEU can be used in combination with a pre-test probability model (e.g. Well's) to exclude pulmonary embolism (PE) disease, as well as an aid in the diagnosis of deep vein thrombosis (DVT). Interpretation and review of laboratory results Abnormal [facility] [place] Test Performed by [facility], [address] [place], [place] [id number] [place] [address] Ferritinon 10-26-2020 Ferritin [Mass/Vol] 575 ng/mL High 18 - 464 ng/mL [place] Interpretation and review of laboratory results Abnormal [place] Test Performed by [facility], [address] [place], [place] [address] [place] Lactate Dehydrogenaseon 10-16 LD 322 U/L High 120 - 246 U/L [place] Magnesiumon 10-26-2020 Magnesium [Mass/Vol] 2.6 mg/dL High 1.6 - 2 .3 mg/dL [place] Otheron 10-26-2020 Interpretation and review of laboratory results Abnormal [place] Test Performed by [facility], [address], [place], [place] [id number] [place] [address] POCT Arterialon 10-26-2020 Base Excess, Arterial 3.2 mmol/L High -3 - 3 mmol/L [place] HCO3, Arterial 27.4 mmol/L High 21 - 25 mmol/L [place] Interpretation and review of laboratory results Abnormal [place] Oxygen saturation in Blood 96.1 % 95 - 100 % [place] pCO2, Arterial 39.3 mm[Hg] 35 - 45 mm[Hg] [place] pH, Arterial 7.451 [place] pO2, Arterial 78.6 mm[Hg] Low 80 - 100 mm[Hg] [place] Sodium [Moles/Vol] 50 mmol/L [place] Comment on above: Performed by Aragon PharmaceuticalsIA ID : [id number] [place], [place] TCO2, Arterial 28.6 mmol/L High 23 - 27 mmol/L [place] Test Performed by [facility], [address], [address] Phosphoruson 10-26-2020 Phosphate [Mass/Vol] 3.2 mg/dL 2.5 - 4 .5 mg/dL [place] Test Performed by [facility], [address] C-Reactive Proteinon 021 CRP [Mass/Vol] 245.5 mg/L High 0 - 6 mg/L [place] Comment on above: . Interpretation and review of laboratory results Abnormal [place] Test Performed by [facility], [address] CBC Auto Differentialon 10-16 Absolute Baso # 0.0 10*3/uL 0 - 0.2 10*3/uL [place] Absolute Neut # 9.1 10*3/uL High 1.8 - 7 10*3/uL [place] Basophils/100 WBC (Bld) 0.1 % 0 - 2 % [place] Eosinophils (Bld) [#/Vol] 0.0 10*3/uL 0 - 0.5 10*3/uL [place] Eosinophils/100 WBC (Bld) 0.0 % Low 1 - 6 % [place] Erythrocyte distribution width (RBC) [Ratio] 14.5 % 11.5 - 14.5 % [place] Granulocytes/100 WBC (Bld) 90.7 % High 40 - 80 % [place] Hematocrit (Bld) [Volume fraction] 33.8 % Low 40 - 52 % [place] Hemoglobin (Bld) [Mass/Vol] 11.1 g/dL Low 13 - 18 g/dL [place] Interpretation and review of laboratory results Abnormal [place] Lymphocytes (Bld) [#/Vol] 0.4 10*3/uL Low 1 - 4.3 10*3/uL [place] Lymphocytes/100 WBC (Bld) 4.3 % Low 20 - 40 % [place] MCH (RBC) [Entitic mass] 29.8 pg 26 - 34 pg [place] MCHC (RBC) [Mass/Vol] 32.9 % 32 - 36 % [place] MCV (RBC) [Entitic vol] 90.5 fL 80 - 98 fL [place] Monocytes (Bld) [#/Vol] 0.5 10*3/uL 0 - 0.8 10*3/uL [place], [place] Monocytes/100 WBC (Bld) 4.9 % 2 - 10 % [place] Platelet mean volume (Bld) [Entitic vol] 8.1 fL 7.4 - 10.4 fL [place] Platelets (Bld) [#/Vol] 224 10*3/uL 140 - 440 10*3/uL [place] RBC (Bld) [#/Vol] 3.73 10*6/uL Low 4.4 - 5.9 10*6/uL [place] WBC (Bld) [#/Vol] 10.0 10*3/uL 3.6 - 10.7 10*3/uL [place] Test Performed by [facility], [address], [place], [place] [address] [place], [place] Calcium, Ionizedon 1 Interpretation and review of laboratory results Abnormal [place] Ionized Ca 4.40 mg/dL 4.3 - 5.2 mg/dL [place] pH (Bld) 7.47 [pH] High [place] Test Performed by [facility], [address], [place], [place] [address] [place] Comprehensive Metabolic Pane l w/ Reflex to MGon 10-25-2020 Albumin [Mass/Vol] 2.7 g/dL Low 3.5 - 5 g/dL [place] ALP [Catalytic activity/Vol] 72 U/L 38 - 126 U/L [place] ALT [Catalytic activity/Vol] 25 U/L 0 - 49 U/L [place] Comment on above: The ALT test is perf ormed by an updated assay method. Please note that the reference intervals have been changed and are now sex specific. Anion gap [Moles/Vol] 4 mmol/L [place], [place] AST [Catalytic activity/Vol] 41 U/L 15 - 46 U/L [place] Bilirubin Ql (U) 1.0 mg/dL 0.2 - 1.3 mg/dL [place] Calcium [Mass/Vol] 8.2 mg/dL Low 8.4 - 10. 4 mg/dL [place] Chloride [Moles/Vol] 102 mmol/L 98 - 10 7 mmol/L [place] CO2 [Moles/Vol] 31 mmol/L High 22 - 30 mmol/L [place] Creatinine [Mass/Vol] 0.74 mg/dL 0.52 - 1.25 mg/dL [place] EGFR IF NonAfrican Turkmen >90.0 >60 mL/min [place] Comment on above: KDIGO guidelines pro [...] MDRD (S/P/Bld) [Vol rate/Area] mL/min/{1.73_m2} >60 mL/min [facility] [place] Glucose [Mass/Vol] 153 mg/dL High 70 - 100 mg/dL [place] Potassium [Moles/Vol] 3.9 mmol/L 3.5 - 5.1 mmol/L [facility] [place] Protein [Mass/Vol] 5.8 g/dL Low 6.3 - 8.2 g/dL [place] Sodium [Moles/Vol] 137 mmol/L 135 - 145 mmol/L [facility] [place] Urea nitrogen [Mass/Vol] 32 mg/dL High 7 - 20 mg/d L [facility] [place] D-Dimer, Quantitativeon 10-16 D-Dimer, Quant >35.20 High 0 - 0.5 mg/L [place] Comment on above: [facility] D-Dimer va lues of <0.50 mg/L FEU can be used in combination with a pre-test probability model (e.g. Well's) to exclude pulmonary embolism (PE) disease, as well as an aid in the diagnosis of deep vein thrombosis (DVT). Interpretation and review of laboratory results Abnormal [facility] [place] Test Performed by [facility], [address], [place], [place] [address] [facility] [employer] [place] Ferritinon 10-25-2020 Ferritin [Mass/Vol] 678 ng/mL High 18 - 464 ng/mL [place] Interpretation and review of laboratory results Abnormal [place] Test Performed by [facility], [address] [place], [place] [address] [place] Gram Stainon 10-25-2020 INR Coag (Bld) [Relative time] Moderate polymorphonuclear cells/lpf. Few epithelial cells/lpf. Many gram positive cocci in pairs and chains. [place] Test Performed by [facility], [address] [place] [address] [place] Lactate Dehydrogenaseon 10-16 LD 430 U/L High 120 - 246 U/L [place] Magnesiumon 10-25-2020 Magnesium [Mass/Vol] 2.7 mg/dL High 1.6 - 2 .3 mg/dL [place] Otheron 10-25-2020 Interpretation and review of laboratory results Abnormal [place] Test Performed by [facility], [address], [place], [place] [address] [place] POCT Arterialon 10-25-2020 Base Excess, Arterial 2.7 mmol/L -3 - 3 mmol/L [place] HCO3, Arterial 25.8 mmol/L High 21 - 25 mmol/L [place] Interpretation and review of laboratory results Abnormal [place] Oxygen saturation in Blood 94.5 % Low 95 - 100 % [place] pCO2, Arterial 33.6 mm[Hg] Low 35 - 45 mm[Hg] [place] pH, Arterial 7.493 [place] pO2, Arterial 66.0 mm[Hg] Low 80 - 100 mm[Hg] [place] Sodium [Moles/Vol] 50 mmol/L [place] Comment on above: Performed by DELFINO ID : [id number] [place] TCO2, Arterial 26.9 mmol/L 23 - 27 mmol/L [place] Test Performed by [facility], [address] [place], [place] [address] [facility] [place] Base Excess, Arterial 6.1 mmol/L High -3 - 3 mmol/L [facility] HCO3, Arterial 29.4 mmol/L High 21 - 25 mmol/L [facility] Interpretation and review of laboratory results Abnormal [facility] [place] Oxygen saturation in Blood 93.2 % Low 95 - 100 % [facility] pCO2, Arterial 37.3 mm[Hg] 35 - 45 mm[Hg] [facility] pH, Arterial 7.506 High [facility] [place] pO2, Arterial 60.9 mm[Hg] Low 80 - 100 mm[Hg] [facility] Sodium [Moles/Vol] 50 mmol/L [facility] Comment on above: Performed by CLIA ID : [id number] [place] TCO2, Arterial 30.6 mmol/L High 23 - 27 mmol/L [facility] [place] Test Performed by [facility], [address] [place], [place] [id number] [place] [address]- [place], [place] Base Excess, Arterial 2.8 mmol/L -3 - 3 mmol/L [facility] HCO3, Arterial 27.7 mmol/L High 21 - 25 mmol/L [facility] Interpretation and review of laboratory results Abnormal [facility] [place] Oxygen saturation in Blood 94.8 % Low 95 - 100 % [facility] pCO2, Arterial 42.3 mm[Hg] 35 - 45 mm[Hg] [facility] pH, Arterial 7.424 [facility] [place] pO2, Arterial 73.3 mm[Hg] Low 80 - 100 mm[Hg] [facility] [place] Sodium [Moles/Vol] 50 mmol/L [facility] Comment on above: Performed by CLIA ID : [id number] [place] TCO2, Arterial 29 mmol/L High 23 - 27 mmol/L [facility] [place] Test Performed by [facility], [address] [place], [place] [address] [facility] [place] Phosphoruson 10-25-2020 Phosphate [Mass/Vol] 2.9 mg/dL 2.5 - 4 .5 mg/dL [facility] [place] VL LOWER EXTREMITY BILATERAL VENOUS DUPLEXon 10-25-2020 [facility] Lower Extremity Venous Duplex Report Patient [place], : 1955 Study 10/24/2020 Name: Joseph De Anda (64yrs) Date: Patient [id number] Age: 64 Account: [id number] ID: Gender: M Loc: 222 BP: Ordering Physician: Issa Conteh Professional Housing Consultant: Maxine Sanchez RVT Interpreting Physician: Tigre Soriano MD Location: [facility] Indications: Edema right entire leg. Edema [...] supine position. Images were obtained using a [employer] E9 vascular ultrasound machine. Venous flow and [...] signed by Tigre Soriano MD 10/25/2020 11:55 [facility] [place], Antoine Del Castillo Incoming Cardiology Results From Kathleen/Torrey - 10/25/2020 11:56 AM EST [facility] Lower Extremity Venous Duplex Report Patient [place], : 1955 Study 10/24/2020 Name: Joseph De Anda (64yr) Date: Patient [id number] Age: 64 Account: [id number] ID: Gender: M Loc: 222 BP: Ordering Physician: Issa Conteh Professional Housing Consultant: Maxine Sanchez RVT Interpreting Physician: Tigre Soriano MD Location: [facility] Indications: Edema right entire leg. Edema [...] supine position. Images were obtained using a [employer] E9 vascular ultrasound machine. Venous flow and [...] signed by Tigre Soriano MD 10/25/2020 11:55 [place], [place] Add On Lab Teston 10-24-2020 Sodium [Moles/Vol] Accepted [place] Comment on above: Specimen available & acceptable for analysis. Test Performed by [facility], [address], [place], [place] [address] [place] Basic Metabolic Panelon Anion gap [Moles/Vol] 7 mmol/L [place] Calcium [Mass/Vol] 8.1 mg/dL Low 8.4 - 10. 4 mg/dL [place] Chloride [Moles/Vol] 101 mmol/L 98 - 10 7 mmol/L [place] CO2 [Moles/Vol] 29 mmol/L 22 - 30 mmol/L [place] Creatinine [Mass/Vol] 0.68 mg/dL 0.52 - 1.25 mg/dL [place] EGFR IF NonAfrican Turkmen >90.0 >60 mL/min [place] Comment on above: KDIGO guidelines pro [...] MDRD (S/P/Bld) [Vol rate/Area] mL/min/{1.73_m2} >60 mL/min [place] Glucose [Mass/Vol] 185 mg/dL High 70 - 100 mg/dL [place] Interpretation and review of laboratory results Abnormal [place] Potassium [Moles/Vol] 4.5 mmol/L 3.5 - 5.1 mmol/L [place] Sodium [Moles/Vol] 137 mmol/L 135 - 145 mmol/L [place] Urea nitrogen [Mass/Vol] 28 mg/dL High 7 - 20 mg/d L [place] Test Performed by [facility], [address], [place], [place] [address] [place] C-Reactive Proteinon 021 CRP [Mass/Vol] 240.1 mg/L High 0 - 6 mg/L [place] Comment on above: . Interpretation and review of laboratory results Abnormal [place] Test Performed by [facility], [address], [place], [place] [address] [place] CBC Auto Differentialon Absolute Baso # 0.0 10*3/uL 0 - 0.2 10*3/uL [place] Absolute Neut # 8.7 10*3/uL High 1.8 - 7 10*3/uL [place] Basophils/100 WBC (Bld) 0.1 % 0 - 2 % [place] Eosinophils (Bld) [#/Vol] 0.0 10*3/uL 0 - 0.5 10*3/uL [place] Eosinophils/100 WBC (Bld) 0.1 % Low 1 - 6 % [place] Erythrocyte distribution width (RBC) [Ratio] 14.5 % 11.5 - 14.5 % [place] Granulocytes/100 WBC (Bld) 93.9 % High 40 - 80 % [place] Hematocrit (Bld) [Volume fraction] 35.7 % Low 40 - 52 % [place] Hemoglobin (Bld) [Mass/Vol] 11.9 g/dL Low 13 - 18 g/dL [place] Interpretation and review of laboratory results Abnormal [place] Lymphocytes (Bld) [#/Vol] 0.3 10*3/uL Low 1 - 4.3 10*3/uL [place] Lymphocytes/100 WBC (Bld) 3.1 % Low 20 - 40 % [place] MCH (RBC) [Entitic mass] 30.4 pg 26 - 34 pg [place] MCHC (RBC) [Mass/Vol] 33.3 % 32 - 36 % [place] MCV (RBC) [Entitic vol] 91.1 fL 80 - 98 fL [place] Monocytes (Bld) [#/Vol] 0.3 10*3/uL 0 - 0.8 10*3/uL [place] Monocytes/100 WBC (Bld) 2.8 % 2 - 10 % [place] Platelet mean volume (Bld) [Entitic vol] 7.8 fL 7.4 - 10.4 fL [place] Platelets (Bld) [#/Vol] 199 10*3/uL 140 - 440 10*3/uL [place] RBC (Bld) [#/Vol] 3.92 10*6/uL Low 4.4 - 5.9 10*6/uL [place] WBC (Bld) [#/Vol] 9.2 10*3/uL 3.6 - 10.7 10*3/uL [place] Test Performed by [facility], [address] [place], [place] [id number] [place] [address] Calcium, Ionizedon Interpretation and review of laboratory results Abnormal [place] Ionized Ca 4.40 mg/dL 4.3 - 5.2 mg/dL [place] pH (Bld) 7.28 [pH] Low [place] Test Performed by [facility], [address] [place], [place] [address] [place] Comprehensive Metabolic Pane l w/ Reflex to MGon 10-24-2020 Albumin [Mass/Vol] 2.9 g/dL Low 3.5 - 5 g/dL [place] ALP [Catalytic activity/Vol] 81 U/L 38 - 126 U/L [place] ALT [Catalytic activity/Vol] 35 U/L 0 - 49 U/L [place] Comment on above: The ALT test is perf ormed by an updated assay method. Please note that the reference intervals have been changed and are now sex specific. Anion gap [Moles/Vol] 6 mmol/L [place] AST [Catalytic activity/Vol] 54 U/L High 15 - 46 U/L [place] Bilirubin Ql (U) 1.3 mg/dL 0.2 - 1.3 mg/dL [place] Calcium [Mass/Vol] 8.0 mg/dL Low 8.4 - 10. 4 mg/dL [place] Chloride [Moles/Vol] 103 mmol/L 98 - 10 7 mmol/L [place] CO2 [Moles/Vol] 29 mmol/L 22 - 30 mmol/L [place] Creatinine [Mass/Vol] 0.69 mg/dL 0.52 - 1.25 mg/dL [place] EGFR IF NonAfrican Turkmen >90.0 >60 mL/min [place] Comment on above: KDIGO guidelines pro [...] MDRD (S/P/Bld) [Vol rate/Area] mL/min/{1.73_m2} >60 mL/min [place] Glucose [Mass/Vol] 141 mg/dL High 70 - 100 mg/dL [place] Potassium [Moles/Vol] 4.6 mmol/L 3.5 - 5.1 mmol/L [place] Protein [Mass/Vol] 6.1 g/dL Low 6.3 - 8.2 g/dL [place] Sodium [Moles/Vol] 139 mmol/L 135 - 145 mmol/L [place] Urea nitrogen [Mass/Vol] 26 mg/dL High 7 - 20 mg/d L [place] D-Dimer, Quantitativeon D-Dimer, Quant >35.20 High 0 - 0.5 mg/L [place] Comment on above: [employer] D-Dimer va lues of <0.50 mg/L FEU can be used in combination with a pre-test probability model (e.g. Well's) to exclude pulmonary embolism (PE) disease, as well as an aid in the diagnosis of deep vein thrombosis (DVT). Interpretation and review of laboratory results Abnormal [place] Test Performed by [facility], [address] Ferritinon 10-24-2020 Ferritin [Mass/Vol] 616 ng/mL High 18 - 464 ng/mL [place] Interpretation and review of laboratory results Abnormal [place] Test Performed by [facility], [address], [address] Lactate Dehydrogenaseon LD 714 U/L High 120 - 246 U/L [place] Magnesiumon 10-24-2020 Magnesium [Mass/Vol] 2.0 mg/dL 1.6 - 2 .3 mg/dL [place] Otheron 10-24-2020 Interpretation and review of laboratory results Abnormal [place] Test Performed by [facility], [address] POCT Arterialon 10-24-2020 Base Excess, Arterial 3.6 mmol/L High -3 - 3 mmol/L [place] HCO3, Arterial 28.0 mmol/L High 21 - 25 mmol/L [place] Interpretation and review of laboratory results Abnormal [facility] [place] Oxygen saturation in Blood 94.4 % Low 95 - 100 % [facility] [place] pCO2, Arterial 40.5 mm[Hg] 35 - 45 mm[Hg] [facility] [place] pH, Arterial 7.448 [facility] [place] pO2, Arterial 69.5 mm[Hg] Low 80 - 100 mm[Hg] [facility] [place] Sodium [Moles/Vol] 50 [facility]L [facility] [place] Comment on above: Performed by CLIA ID : [id number] [place], [place] TCO2, Arterial 29.2 mmol/L High 23 - 27 mmol/L [facility] [place] Test Performed by [facility], [address] [place], [place] [address] [facility] [place] Base Excess, Arterial 1.8 mmol/L -3 - 3 mmol/L [facility] [place] HCO3, Arterial 27.8 mmol/L High 21 - 25 mmol/L [facility] [place] Interpretation and review of laboratory results Abnormal [facility] [place] Oxygen saturation in Blood 99.7 % 95 - 100 % [facility] [place] pCO2, Arterial 48.8 mm[Hg] High 35 - 45 mm[Hg] [facility] pH, Arterial 7.364 [facility], [place] pO2, Arterial 203.6 mm[Hg] High 80 - 100 mm[Hg] [facility] [place] Sodium [Moles/Vol] 60 mmol/L [facility] [place] Comment on above: Performed by CLIA ID : [id number] [place] TCO2, Arterial 29.3 mmol/L High 23 - 27 mmol/L [facility] Test Performed by [facility], [address] [place], [place] [address] [facility] [place] Base Excess, Arterial -0.6 mmol/L -3 - 3 mmol/L [facility] HCO3, Arterial 27.3 mmol/L High 21 - 25 mmol/L [facility] Interpretation and review of laboratory results Abnormal [facility] [place] Oxygen saturation in Blood 99.7 % 95 - 100 % [facility] [place] pCO2, Arterial 57.2 mm[Hg] High 35 - 45 mm[Hg] [place], [place] pH, Arterial 7.287 [place] pO2, Arterial 226.0 mm[Hg] High 80 - 100 mm[Hg] [place] TCO2, Arterial 29.1 mmol/L High 23 - 27 mmol/L [place] Comment on above: Performed by CLIA ID : [id number] [place] Test Performed by [facility], [address] [place], [place] [address] [place], [place] Phosphoruson 10-24-2020 Interpretation and review of laboratory results Abnormal [place] Phosphate [Mass/Vol] 4.7 mg/dL High 2.5 - 4 .5 mg/dL [place] Test Performed by [facility], [address] [place], [place] [address] [place] Procalcitoninon 10-24-2020 Interpretation and review of laboratory results Abnormal [place] Procalcitonin 0.35 ng/mL Abnormal <0.10 [place], [place] Sodium [Moles/Vol] See Below [place], [place] Comment on above: PCT <0.50 = Low risk of severe sepsis and/or septic shock. PCT >2.00 = High risk of severe sepsis and/or septic shock. Test Performed by [facility], [address] [place] [address] [place], [place] XR CHEST PORTABLEon 10-24-19 [facility] Incoming Radiology Results From [facility] - 10/24/2020 6:02 AM EST Patient Name: JOSEPH BROWN Diagnostic Radiology ACCESSION EXAM DATE/TIME PROCEDURE ORDERING PROVIDER [id number] 10/24/2020 03:56 EST CR Chest Portable AMARILIS GOMEZ AMBER A CPT code 48762 Reason For Exam (CR Chest Portable) ETT [...] JEFFREY Transcribed Date and Time: 10/24/2020 6:02 [place] Patient [facility]: [id number] Radiology ACCESSION EXAM DATE/TIME PROCEDURE ORDERING PROVIDER [id number] 10/24/2020 03:56 EST CR Chest Portable AMARILIS GOMEZ, PILAR A CPT code 99463 Reason For Exam (CR Chest Portable) ETT [...] JEFFREY Transcribed Date and Time: 10/24/2020 6:02 [place], [place] Patient Name: JOSEPH BROWN Diagnostic Radiology ACCESSION EXAM DATE/TIME PROCEDURE ORDERING PROVIDER [id number] 10/24/2020 03:57 EST CR Chest Portable MD CONTEH MATTHEW CPT code 59295 Reason For Exam (CR Chest Portable) dyspnea [...] position without pneumothorax Report Dictated on Workstation: [facility]-REM[facility] --- Final --- Dictating Physician: MD CUNNINGHAM JEFFREY Signed Date and Time: 10/24/2020 6:00 am Signed by: MD CUNNINGHAM JEFFREY Transcribed Date and Time: 10/24/2020 6:01 [facility], [place] Jose Cruz, [facility] In[facility] Results From [facility] - 10/24/2020 6:02 AM EST Patient Name: JOSEPH BROWN [facility]#: [id number] Diagnostic Radiology ACCESSION EXAM DATE/TIME PROCEDURE ORDERING PROVIDER [id number] 10/24/2020 03:57 EST CR Chest Portable MD CONTEH MATTHEW CPT code 23300 Reason For Exam (CR Chest Portable) dyspnea [...] without pneumothorax Report Dictated on Workstation: [facility] --- Final --- Dictating Physician: MD CUNNINGHAM JEFFREY Signed Date and Time: 10/24/2020 6:00 am Signed by: MD CUNNINGHAM JEFFREY Transcribed Date and Time: 10/24/2020 6:01 [facility], [place] Jose Cruz, [facility] In[facility] Rad[facility] Results From [facility] - 10/24/2020 6:02 AM EST Patient Name: JOSEPH BROWN Diagnostic Radiology ACCESSION EXAM DATE/TIME PROCEDURE ORDERING PROVIDER [id number] 10/24/2020 05:26 EST CR Chest Portable ACIERDARYL, REQUIREMENTS ANALYST, PILAR A CPT code 45514 Reason For Exam (CR Chest Portable) Line [...] JEFFREY Transcribed Date and Time: 10/24/2020 6:01 [place], [place] Patient Name: JOSEPH BROWN Diagnostic Radiology ACCESSION EXAM DATE/TIME PROCEDURE ORDERING PROVIDER [id number] 10/24/2020 05:26 EST CR Chest Portable ACIERNO, REQUIREMENTS ANALYST, PILAR A CPT code 59091 Reason For Exam (CR Chest Portable) Line [...] JEFFREY Transcribed Date and Time: 10/24/2020 6:01 [place], [place] C-Reactive Proteinon 021 CRP [Mass/Vol] 134.2 mg/L High 0 - 6 mg/L [place] Comment on above: . Interpretation and review of laboratory results Abnormal [place] Test Performed by [facility], [address] [place], [place] [id number] [place] [address] CBC Auto Differentialon Absolute Baso # 0.0 10*3/uL 0 - 0.2 10*3/uL [place] Absolute Neut # 7.9 10*3/uL High 1.8 - 7 10*3/uL [place] Basophils/100 WBC (Bld) 0.1 % 0 - 2 % [place] Eosinophils (Bld) [#/Vol] 0.0 10*3/uL 0 - 0.5 10*3/uL [place] Eosinophils/100 WBC (Bld) 0.0 % Low 1 - 6 % [place] Erythrocyte distribution width (RBC) [Ratio] 14.5 % 11.5 - 14.5 % [place] Granulocytes/100 WBC (Bld) 87.7 % High 40 - 80 % [place] Hematocrit (Bld) [Volume fraction] 37.2 % Low 40 - 52 % [place] Hemoglobin (Bld) [Mass/Vol] 12.5 g/dL Low 13 - 18 g/dL [place] Interpretation and review of laboratory results Abnormal [place] Lymphocytes (Bld) [#/Vol] 0.5 10*3/uL Low 1 - 4.3 10*3/uL [place] Lymphocytes/100 WBC (Bld) 5.3 % Low 20 - 40 % [place] MCH (RBC) [Entitic mass] 30.5 pg 26 - 34 pg [place] MCHC (RBC) [Mass/Vol] 33.5 % 32 - 36 % [place] MCV (RBC) [Entitic vol] 91.0 fL 80 - 98 fL [place], [place] Monocytes (Bld) [#/Vol] 0.6 10*3/uL 0 - 0.8 10*3/uL [place], [place] Monocytes/100 WBC (Bld) 6.9 % 2 - 10 % [place] Platelet mean volume (Bld) [Entitic vol] 8.5 fL 7.4 - 10.4 fL [place] Platelets (Bld) [#/Vol] 314 10*3/uL 140 - 440 10*3/uL [place] RBC (Bld) [#/Vol] 4.09 10*6/uL Low 4.4 - 5.9 10*6/uL [place] WBC (Bld) [#/Vol] 9.0 10*3/uL 3.6 - 10.7 10*3/uL [place] Test Performed by [facility], [address], [place], [place] [address] [place] Comprehensive Metabolic Pane l w/ Reflex to MGon 10-23-2020 Albumin [Mass/Vol] 3.1 g/dL Low 3.5 - 5 g/dL [place] ALP [Catalytic activity/Vol] 66 U/L 38 - 126 U/L [place] ALT [Catalytic activity/Vol] 34 U/L 0 - 49 U/L [place] Comment on above: The ALT test is perf ormed by an updated assay method. Please note that the reference intervals have been changed and are now sex specific. Anion gap [Moles/Vol] 7 mmol/L [place] AST [Catalytic activity/Vol] 40 U/L 15 - 46 U/L [place] Bilirubin Ql (U) 0.9 mg/dL 0.2 - 1.3 mg/dL [place] Calcium [Mass/Vol] 8.5 mg/dL 8.4 - 10. 4 mg/dL [place] Chloride [Moles/Vol] 104 mmol/L 98 - 10 7 mmol/L [place] CO2 [Moles/Vol] 27 mmol/L 22 - 30 mmol/L [place] Creatinine [Mass/Vol] 0.72 mg/dL 0.52 - 1.25 mg/dL [place] EGFR IF NonAfrican Turkmen >90.0 >60 mL/min [place] Comment on above: KDIGO guidelines pro [...] MDRD (S/P/Bld) [Vol rate/Area] mL/min/{1.73_m2} >60 mL/min [place] Glucose [Mass/Vol] 106 mg/dL High 70 - 100 mg/dL [place] Potassium [Moles/Vol] 4.7 mmol/L 3.5 - 5.1 mmol/L [place] Protein [Mass/Vol] 6.4 g/dL 6.3 - 8.2 g/dL [place] Sodium [Moles/Vol] 138 mmol/L 135 - 145 mmol/L [place] Urea nitrogen [Mass/Vol] 24 mg/dL High 7 - 20 mg/d L [place] D-Dimer, Quantitativeon D-Dimer, Quant >35.20 High 0 - 0.5 mg/L [place] Comment on above: [facility]-Dimer va lues of <0.50 mg/L FEU can be used in combination with a pre-test probability model (e.g. Well's) to exclude pulmonary embolism (PE) disease, as well as an aid in the diagnosis of deep vein thrombosis (DVT). Interpretation and review of laboratory results Abnormal [place] Test Performed by [facility], [address] [place], [place] [address] [place] Ferritinon 10-23-2020 Ferritin [Mass/Vol] 552 ng/mL High 18 - 464 ng/mL [place] Interpretation and review of laboratory results Abnormal [place] Test Performed by [facility], [address], [place], [place] [address] [place], [place] Lactate Dehydrogenaseon LD 434 U/L High 120 - 246 U/L [place] Magnesiumon 10-23-2020 Magnesium [Mass/Vol] 2.2 mg/dL 1.6 - 2 .3 mg/dL [place] Otheron 10-23-2020 Interpretation and review of laboratory results Abnormal [place] Test Performed by [facility], [address], [place], [place] [address] [place], [place] Phosphoruson 10-23-2020 Interpretation and review of laboratory results Abnormal [place] Phosphate [Mass/Vol] 4.6 mg/dL High 2.5 - 4 .5 mg/dL [place] Test Performed by [facility], [address], [place], [place] [address] [place], [place] C-Reactive Proteinon 021 CRP [Mass/Vol] 175.3 mg/L High 0 - 6 mg/L [place] Comment on above: . CBC Auto Differentialon Absolute Baso # 0.0 10*3/uL 0 - 0.2 10*3/uL [place] Absolute Neut # 6.7 10*3/uL 1.8 - 7 10*3/uL [place] Basophils/100 WBC (Bld) 0.2 % 0 - 2 % [place] Eosinophils (Bld) [#/Vol] 0.0 10*3/uL 0 - 0.5 10*3/uL [place] Eosinophils/100 WBC (Bld) 0.0 % Low 1 - 6 % [place] Erythrocyte distribution width (RBC) [Ratio] 14.4 % 11.5 - 14.5 % [place] Granulocytes/100 WBC (Bld) 86.2 % High 40 - 80 % [place] Hematocrit (Bld) [Volume fraction] 33.5 % Low 40 - 52 % [place] Hemoglobin (Bld) [Mass/Vol] 11.4 g/dL Low 13 - 18 g/dL [place] Lymphocytes (Bld) [#/Vol] 0.4 10*3/uL Low 1 - 4.3 10*3/uL [place] Lymphocytes/100 WBC (Bld) 4.6 % Low 20 - 40 % [place] MCH (RBC) [Entitic mass] 30.7 pg 26 - 34 pg [place] MCHC (RBC) [Mass/Vol] 34.2 % 32 - 36 % [place] MCV (RBC) [Entitic vol] 89.9 fL 80 - 98 fL [place], [place] Monocytes (Bld) [#/Vol] 0.7 10*3/uL 0 - 0.8 10*3/uL [place], [place] Monocytes/100 WBC (Bld) 9.0 % 2 - 10 % [place] Platelet mean volume (Bld) [Entitic vol] 7.9 fL 7.4 - 10.4 fL [place] Platelets (Bld) [#/Vol] 264 10*3/uL 140 - 440 10*3/uL [place] RBC (Bld) [#/Vol] 3.73 10*6/uL Low 4.4 - 5.9 10*6/uL [place] WBC (Bld) [#/Vol] 7.8 10*3/uL 3.6 - 10.7 10*3/uL [place] Comprehensive Metabolic Pane l w/ Reflex to MGon 10-22-2020 Albumin [Mass/Vol] 3.1 g/dL Low 3.5 - 5 g/dL [place] ALP [Catalytic activity/Vol] 58 U/L 38 - 126 U/L [place] ALT [Catalytic activity/Vol] 30 U/L 0 - 49 U/L [place] Comment on above: The ALT test is perf ormed by an updated assay method. Please note that the reference intervals have been changed and are now sex specific. Anion gap [Moles/Vol] 6 mmol/L [place], [place] AST [Catalytic activity/Vol] 44 U/L 15 - 46 U/L [place] Bilirubin Ql (U) 0.6 mg/dL 0.2 - 1.3 mg/dL [place] Calcium [Mass/Vol] 8.3 mg/dL Low 8.4 - 10. 4 mg/dL [place] Chloride [Moles/Vol] 106 mmol/L 98 - 10 7 mmol/L [place] CO2 [Moles/Vol] 26 mmol/L 22 - 30 mmol/L [place] Creatinine [Mass/Vol] 0.6 mg/dL 0.52 - 1.25 mg/dL [place] EGFR IF NonAfrican Turkmen >90.0 >60 mL/min [place] Comment on above: KDIGO guidelines pro [...] MDRD (S/P/Bld) [Vol rate/Area] mL/min/{1.73_m2} >60 mL/min [place] Glucose [Mass/Vol] 161 mg/dL High 70 - 100 mg/dL [place] Potassium [Moles/Vol] 4.8 mmol/L 3.5 - 5.1 mmol/L [place] Protein [Mass/Vol] 6.3 g/dL 6.3 - 8.2 g/dL [place] Sodium [Moles/Vol] 138 mmol/L 135 - 145 mmol/L [place] Urea nitrogen [Mass/Vol] 24 mg/dL High 7 - 20 mg/d L [place] D-Dimer, Quantitativeon - D-Dimer, Quant 5.34 mg/L High 0 - 0.5 mg/L [place] Comment on above: [employer] D-Dimer va lues of <0.50 mg/L FEU can be used in combination with a pre-test probability model (e.g. Well's) to exclude pulmonary embolism (PE) disease, as well as an aid in the diagnosis of deep vein thrombosis (DVT). Ferritinon 10-22-2020 Ferritin [Mass/Vol] 589 ng/mL High 18 - 464 ng/mL [place] Lactate Dehydrogenaseon LD 417 U/L High 120 - 246 U/L [place] Magnesiumon 10-22-2020 Magnesium [Mass/Vol] 2.5 mg/dL High 1.6 - 2 .3 mg/dL [place], [place] Otheron 10-22-2020 Interpretation and review of laboratory results Abnormal [place] Test Performed by [facility], [address] [place] [address], [place], [place] [address] [place], [place] Phosphoruson 10-22-2020 Phosphate [Mass/Vol] 4.4 mg/dL 2.5 - 4 .5 mg/dL [place] C-Reactive Proteinon 021 CRP [Mass/Vol] 222.3 mg/L High 0 - 6 mg/L [place] Comment on above: . CBC Auto Differentialon Absolute Baso # 0.0 10*3/uL 0 - 0.2 10*3/uL [place], [place] Absolute Neut # 6.6 10*3/uL 1.8 - 7 10*3/uL [place] Basophils/100 WBC (Bld) 0.1 % 0 - 2 % [place] Eosinophils (Bld) [#/Vol] 0.0 10*3/uL 0 - 0.5 10*3/uL [place], [place] Eosinophils/100 WBC (Bld) 0.0 % Low 1 - 6 % [place] Erythrocyte distribution width (RBC) [Ratio] 14.9 % High 11.5 - 14.5 % [place] Granulocytes/100 WBC (Bld) 85.6 % High 40 - 80 % [place] Hematocrit (Bld) [Volume fraction] 34.2 % Low 40 - 52 % [place] Hemoglobin (Bld) [Mass/Vol] 11.2 g/dL Low 13 - 18 g/dL [place] Interpretation and review of laboratory results Abnormal [place] Lymphocytes (Bld) [#/Vol] 0.4 10*3/uL Low 1 - 4.3 10*3/uL [place] Lymphocytes/100 WBC (Bld) 5.6 % Low 20 - 40 % [place] MCH (RBC) [Entitic mass] 29.6 pg 26 - 34 pg [place] MCHC (RBC) [Mass/Vol] 32.8 % 32 - 36 % [place] MCV (RBC) [Entitic vol] 90.3 fL 80 - 98 fL [place], [place] Monocytes (Bld) [#/Vol] 0.7 10*3/uL 0 - 0.8 10*3/uL [place] Monocytes/100 WBC (Bld) 8.7 % 2 - 10 % [place] Platelet mean volume (Bld) [Entitic vol] 7.8 fL 7.4 - 10.4 fL [place] Platelets (Bld) [#/Vol] 277 10*3/uL 140 - 440 10*3/uL [place] RBC (Bld) [#/Vol] 3.78 10*6/uL Low 4.4 - 5.9 10*6/uL [place] WBC (Bld) [#/Vol] 7.7 10*3/uL 3.6 - 10.7 10*3/uL [place] Test Performed by [facility], [address], [place], [place] [address] [place] Comprehensive Metabolic Pane l w/ Reflex to MGon 10-21-2020 Albumin [Mass/Vol] 3.2 g/dL Low 3.5 - 5 g/dL [place] ALP [Catalytic activity/Vol] 58 U/L 38 - 126 U/L [place] ALT [Catalytic activity/Vol] 24 U/L 0 - 49 U/L [place] Comment on above: The ALT test is perf ormed by an updated assay method. Please note that the reference intervals have been changed and are now sex specific. Anion gap [Moles/Vol] 5 mmol/L [place] AST [Catalytic activity/Vol] 37 U/L 15 - 46 U/L [place] Bilirubin Ql (U) 0.8 mg/dL 0.2 - 1.3 mg/dL [place] Calcium [Mass/Vol] 8.2 mg/dL Low 8.4 - 10. 4 mg/dL [place] Chloride [Moles/Vol] 106 mmol/L 98 - 10 7 mmol/L [place] CO2 [Moles/Vol] 25 mmol/L 22 - 30 mmol/L [place] Creatinine [Mass/Vol] 0.68 mg/dL 0.52 - 1.25 mg/dL [place] EGFR IF NonAfrican Turkmen >90.0 >60 mL/min [place] Comment on above: KDIGO guidelines pro [...] MDRD (S/P/Bld) [Vol rate/Area] mL/min/{1.73_m2} >60 mL/min [place] Glucose [Mass/Vol] 148 mg/dL High 70 - 100 mg/dL [place] Potassium [Moles/Vol] 5.0 mmol/L 3.5 - 5.1 mmol/L [place] Protein [Mass/Vol] 6.3 g/dL 6.3 - 8.2 g/dL [place] Sodium [Moles/Vol] 136 mmol/L 135 - 145 mmol/L [place] Urea nitrogen [Mass/Vol] 25 mg/dL High 7 - 20 mg/d L [place] D-Dimer, Quantitativeon D-Dimer, Quant 0.6 mg/L High 0 - 0.5 mg/L [place] Comment on above: [employer] D-Dimer va lues of <0.50 mg/L FEU can be used in combination with a pre-test probability model (e.g. Well's) to exclude pulmonary embolism (PE) disease, as well as an aid in the diagnosis of deep vein thrombosis (DVT). Interpretation and review of laboratory results Abnormal [place] Test Performed by [facility], [address] [place], [place] [id number] [place] [address] Ferritinon 10-21-2020 Ferritin [Mass/Vol] 602 ng/mL High 18 - 464 ng/mL [place] Interpretation and review of laboratory results Abnormal [place] Test Performed by [facility], [address] [place], [place] [id number] [place] [address] Lactate Dehydrogenaseon LD 416 U/L High 120 - 246 U/L [place] Magnesiumon 10-21-2020 Magnesium [Mass/Vol] 2.6 mg/dL High 1.6 - 2 .3 mg/dL [place] Otheron 10-21-2020 Interpretation and review of laboratory results Abnormal [place] Test Performed by [facility], [address] [place], [place] [id number] [place] [address] Phosphoruson 10-21-2020 Phosphate [Mass/Vol] 3.5 mg/dL 2.5 - 4 .5 mg/dL [place] Add On Lab Teston 10-20-2020 Sodium [Moles/Vol] Accepted [place] Comment on above: Specimen available & acceptable for analysis. Test Performed by [facility], [address], [place], [place] [address] [place] C-Reactive Proteinon 021 CRP [Mass/Vol] 240.7 mg/L High 0 - 6 mg/L [place] Comment on above: . Interpretation and review of laboratory results Abnormal [place] Test Performed by [facility], [address], [place], [place] [address] [place] CBC Auto Differentialon Absolute Baso # 0.0 10*3/uL 0 - 0.2 10*3/uL [place] Absolute Neut # 10.0 10*3/uL High 1.8 - 7 10*3/uL [place] Basophils/100 WBC (Bld) 0.1 % 0 - 2 % [place] Eosinophils (Bld) [#/Vol] 0.0 10*3/uL 0 - 0.5 10*3/uL [place] Eosinophils/100 WBC (Bld) 0.0 % Low 1 - 6 % [place] Erythrocyte distribution width (RBC) [Ratio] 14.6 % High 11.5 - 14.5 % [place] Granulocytes/100 WBC (Bld) 90.0 % High 40 - 80 % [place] Hematocrit (Bld) [Volume fraction] 36.8 % Low 40 - 52 % [place] Hemoglobin (Bld) [Mass/Vol] 12.4 g/dL Low 13 - 18 g/dL [place] Interpretation and review of laboratory results Abnormal [place] Lymphocytes (Bld) [#/Vol] 0.5 10*3/uL Low 1 - 4.3 10*3/uL [place] Lymphocytes/100 WBC (Bld) 4.4 % Low 20 - 40 % [place] MCH (RBC) [Entitic mass] 30.4 pg 26 - 34 pg [place] MCHC (RBC) [Mass/Vol] 33.7 % 32 - 36 % [facility] [place] MCV (RBC) [Entitic vol] 90.1 fL 80 - 98 fL [place] Monocytes (Bld) [#/Vol] 0.6 10*3/uL 0 - 0.8 10*3/uL [place] Monocytes/100 WBC (Bld) 5.5 % 2 - 10 % [place] Platelet mean volume (Bld) [Entitic vol] 8.0 fL 7.4 - 10.4 fL [place] Platelets (Bld) [#/Vol] 237 10*3/uL 140 - 440 10*3/uL [place] RBC (Bld) [#/Vol] 4.09 10*6/uL Low 4.4 - 5.9 10*6/uL [place] WBC (Bld) [#/Vol] 11.1 10*3/uL High 3.6 - 10.7 10*3/uL [place] Test Performed by [facility], [address] [place], [place] [address] [place] Comprehensive Metabolic Pane l w/ Reflex to MGon 10-20-2020 Albumin [Mass/Vol] 3.4 g/dL Low 3.5 - 5 g/dL [place] ALP [Catalytic activity/Vol] 61 U/L 38 - 126 U/L [place] ALT [Catalytic activity/Vol] 28 U/L 0 - 49 U/L [place] Comment on above: The ALT test is perf ormed by an updated assay method. Please note that the reference intervals have been changed and are now sex specific. Anion gap [Moles/Vol] 7 mmol/L [place] AST [Catalytic activity/Vol] 44 U/L 15 - 46 U/L [place] Bilirubin Ql (U) 0.9 mg/dL 0.2 - 1.3 mg/dL [place] Calcium [Mass/Vol] 8.0 mg/dL Low 8.4 - 10. 4 mg/dL [place] Chloride [Moles/Vol] 103 mmol/L 98 - 10 7 mmol/L [place] CO2 [Moles/Vol] 27 mmol/L 22 - 30 mmol/L [place] Creatinine [Mass/Vol] 0.9 mg/dL 0.52 - 1.25 mg/dL [place] EGFR IF NonAfrican Turkmen 88.1 mL/min >60 [place] Comment on above: KDIGO guidelines pro [...] MDRD (S/P/Bld) [Vol rate/Area] mL/min/{1.73_m2} >60 mL/min [place] Glucose [Mass/Vol] 148 mg/dL High 70 - 100 mg/dL [place] Potassium [Moles/Vol] 4.3 mmol/L 3.5 - 5.1 mmol/L [place] Protein [Mass/Vol] 6.7 g/dL 6.3 - 8.2 g/dL [place] Sodium [Moles/Vol] 137 mmol/L 135 - 145 mmol/L [place] Urea nitrogen [Mass/Vol] 24 mg/dL High 7 - 20 mg/d L [place] D-Dimer, Quantitativeon 0 D-Dimer, Quant 0.76 mg/L High 0 - 0.5 mg/L [place] Comment on above: [employer] D-Dimer va lues of <0.50 mg/L FEU can be used in combination with a pre-test probability model (e.g. Well's) to exclude pulmonary embolism (PE) disease, as well as an aid in the diagnosis of deep vein thrombosis (DVT). Interpretation and review of laboratory results Abnormal [facility] Test Performed by [employer] [facility], [address], [place], [place] [address] [facility] [place] [facility] Lead - Chest Painon 0 10-20-2020 Jose Cruz, [facility] Incoming Cardiology Results From [facility] - 10/20/2020 1:54 PM EST [facility] Test Date: 2020-10-19 Pat Name: Joseph Brown Department: 01 Room: 222 Gender: M Hand Brush Filler: MATT DASB: 1955 Requested By: CANDELARIO LOMELI Order Number: [id number] Reading MD: Lady Lemus Measurements Intervals [place] Rate: 83 P: 0 WI: 137 QRS: 7 QRSD: 94 T: 24 QT: 376 QTc: 442 Interpretive Statements SINUS RHYTHM EARLY PRECORDIAL R/S TRANSITION BASELINE WANDER IN LEAD(S) V2 Compared to ECG 10/16/2020 08:11:54 No significant changes Electronically Signed On 10-20-2020 13:53:25 EST by Lady Lemus [facility] TI[facility] Test Date: 2020-10-19 Pat Name: Joseph Brown Department: 01 Room: 222 Gender: M Hand Brush Filler: MATT : 1955 Requested By: CANDELARIO LOMELI Order Number: [id number] Reading MD: Lady Lemus Measurements Intervals [place] Rate: 83 P: 0 WI: 137 QRS: 7 QRSD: 94 T: 24 QT: 376 QTc: 442 Interpretive Statements SINUS RHYTHM EARLY PRECORDIAL R/S TRANSITION BASELINE WANDER IN LEAD(S) V2 Compared to ECG 10/16/2020 08:11:54 No significant changes Electronically Signed On 10-20-2020 13:53:25 EST by Lady Mariah [employer] [facility] [employer] Ferritinon 10-20-2020 Ferritin [Mass/Vol] 605 ng/mL High 18 - 464 ng/mL [place] Interpretation and review of laboratory results Abnormal [place] Test Performed by [facility], [address], [place], [place] [address] [place] Lactate Dehydrogenaseon LD 437 U/L High 120 - 246 U/L [place] Magnesiumon 10-20-2020 Magnesium [Mass/Vol] 2.3 mg/dL 1.6 - 2 .3 mg/dL [place] Otheron 10-20-2020 Interpretation and review of laboratory results Abnormal [place] Test Performed by [facility], [address], [place], [place] [id number] [place] [address] POCT Arterialon 10-20-2020 Base Excess, Arterial -1.7 mmol/L -3 - 3 mmol/L [place] HCO3, Arterial 22.0 mmol/L 21 - 25 mmol/L [place] Interpretation and review of laboratory results Abnormal [place] Oxygen saturation in Blood 98.2 % 95 - 100 % [place] pCO2, Arterial 33.1 mm[Hg] Low 35 - 45 mm[Hg] [place] pH, Arterial 7.431 [place] pO2, Arterial 104.4 mm[Hg] High 80 - 100 mm[Hg] [place] Sodium [Moles/Vol] 100 mmol/L [place], [place] Comment on above: Performed by DELFINO ID : [id number] [place], [place] TCO2, Arterial 23.1 mmol/L 23 - 27 mmol/L [place] Test Performed by [facility], [address], [place], [place] [id number] [place] [address] Phosphoruson 10-20-2020 Phosphate [Mass/Vol] 2.9 mg/dL 2.5 - 4 .5 mg/dL [place] Test Performed by [facility], [address], [place], [place] [address] [place] Procalcitoninon 10-20-2020 Interpretation and review of laboratory results Abnormal [place] Procalcitonin 0.23 ng/mL Abnormal <0.10 [place], [place] Sodium [Moles/Vol] See Below [place], [place] Comment on above: PCT <0.50 = Low risk of severe sepsis and/or septic shock. PCT >2.00 = High risk of severe sepsis and/or septic shock. Test Performed by [facility], [address] [place] [address] [place], [place] Vitamin D 25 Hydroxyon 10-20 Interpretation and review of laboratory results Abnormal [place] Vit D, 25-Hydroxy 23 ng/mL Low 30 - 100 ng/mL [place] Comment on above: Therapy is based on measurement of Total 25-OHD with the following classification levels: Less than 20 ng/mL: Indicative of Vit D deficiency 20-30 ng/mL: Suggests Vit D insufficiency Optimal: Greater than or equal to 30 ng/mL Test performed by [email or web address] Competitive Immunoassay, measuring Total Vitamin D, not individual fractions. Test Performed by [facility], [address] [place], [place] [address] [place] CTA CHEST W WO CONTRASTon Patient Name: JOSEPH BROWN Computed Tomography ACCESSION EXAM DATE/TIME PROCEDURE ORDERING PROVIDER [id number] 10/19/2020 18:48 EST CTA Chest w/ + w/o Parvez GREEN MICHAEL Contrast THOMAS CPT code 63162 Q9967 Reason For Exam (CTA Chest w/ [...] NEIL Transcribed Date and Time: 10/19/2020 7:59 [place], [place] Jose Cruz, [facility] Incoming Radiology Results From [facility] - 10/19/2020 7:59 PM EST [facility]: [id number] Computed Tomography ACCESSION EXAM DATE/TIME PROCEDURE ORDERING PROVIDER [id number] 10/19/2020 18:48 EST CTA Chest w/ + w/o Parvez GREEN MICHAEL Contrast THOMAS CPT code 95614 Q9967 Reason For Exam (CTA Chest w/ [...] NEIL Transcribed Date and Time: 10/19/2020 7:59 [place] Comprehensive Metabolic Pane kelton 10-19-2020 Albumin [Mass/Vol] 3.4 g/dL Low 3.5 - 5 g/dL [place] ALP [Catalytic activity/Vol] 58 U/L 38 - 126 U/L [place] ALT [Catalytic activity/Vol] 29 U/L 0 - 49 U/L [place] Comment on above: The ALT test is perf ormed by an updated assay method. Please note that the reference intervals have been changed and are now sex specific. Anion gap [Moles/Vol] 8 mmol/L [place], [place] AST [Catalytic activity/Vol] 40 U/L 15 - 46 U/L [place] Bilirubin Ql (U) 0.9 mg/dL 0.2 - 1.3 mg/dL [place] Calcium [Mass/Vol] 7.9 mg/dL Low 8.4 - 10. 4 mg/dL [place] Chloride [Moles/Vol] 103 mmol/L 98 - 10 7 mmol/L [place] CO2 [Moles/Vol] 25 mmol/L 22 - 30 mmol/L [place] Creatinine [Mass/Vol] 0.9 mg/dL 0.52 - 1.25 mg/dL [place] EGFR IF NonAfrican Turkmen 88.1 mL/min >60 [place] Comment on above: KDIGO guidelines pro [...] MDRD (S/P/Bld) [Vol rate/Area] mL/min/{1.73_m2} >60 mL/min [place] Glucose [Mass/Vol] 145 mg/dL High 70 - 100 mg/dL [place] Interpretation and review of laboratory results Abnormal [place] Potassium [Moles/Vol] 3.7 mmol/L 3.5 - 5.1 mmol/L [place] Protein [Mass/Vol] 6.5 g/dL 6.3 - 8.2 g/dL [place] Sodium [Moles/Vol] 135 mmol/L 135 - 145 mmol/L [place] Urea nitrogen [Mass/Vol] 19 mg/dL 7 - 20 mg/d L [place] Test Performed by [facility], [address], [place], [place] [address] [place] Hemogram (CBC) w/Auto Diffon 10-19-2020 Absolute Baso # 0.0 10*3/uL 0 - 0.2 10*3/uL [place] Absolute Neut # 8.2 10*3/uL High 1.8 - 7 10*3/uL [place] Basophils/100 WBC (Bld) 0.1 % 0 - 2 % [place] Eosinophils (Bld) [#/Vol] 0.0 10*3/uL 0 - 0.5 10*3/uL [place] Eosinophils/100 WBC (Bld) 0.0 % Low 1 - 6 % [place] Erythrocyte distribution width (RBC) [Ratio] 14.3 % 11.5 - 14.5 % [place] Granulocytes/100 WBC (Bld) 88.4 % High 40 - 80 % [place] Hematocrit (Bld) [Volume fraction] 36.3 % Low 40 - 52 % [place] Hemoglobin (Bld) [Mass/Vol] 12.1 g/dL Low 13 - 18 g/dL [place] Interpretation and review of laboratory results Abnormal [place] Lymphocytes (Bld) [#/Vol] 0.4 10*3/uL Low 1 - 4.3 10*3/uL [place] Lymphocytes/100 WBC (Bld) 4.3 % Low 20 - 40 % [place] MCH (RBC) [Entitic mass] 29.7 pg 26 - 34 pg [place] MCHC (RBC) [Mass/Vol] 33.3 % 32 - 36 % [place] MCV (RBC) [Entitic vol] 89.2 fL 80 - 98 fL [place] Monocytes (Bld) [#/Vol] 0.7 10*3/uL 0 - 0.8 10*3/uL [place] Monocytes/100 WBC (Bld) 7.2 % 2 - 10 % [place] Platelet mean volume (Bld) [Entitic vol] 8.3 fL 7.4 - 10.4 fL [place] Platelets (Bld) [#/Vol] 217 10*3/uL 140 - 440 10*3/uL [place] RBC (Bld) [#/Vol] 4.07 10*6/uL Low 4.4 - 5.9 10*6/uL [place] WBC (Bld) [#/Vol] 9.3 10*3/uL 3.6 - 10.7 10*3/uL [place] Test Performed by [facility], [address] [place], [address] Troponinon 10-19-2020 Interpretation and review of laboratory results Abnormal [place] Troponin I.cardiac [Mass/Vol] 0.601 ng/mL High 0 - 0.034 ng/mL [place] Comment on above: . Test Performed by [facility], [address] [place], [address] Interpretation and review of laboratory results Abnormal [place] Troponin I.cardiac [Mass/Vol] 0.726 ng/mL High 0 - 0.034 ng/mL [place] Comment on above: . Test Performed by [facility] [employer] [facility], [address] [place], [address] Interpretation and review of laboratory results Abnormal [place] Troponin I.cardiac [Mass/Vol] 0.922 ng/mL High 0 - 0.034 ng/mL [place] Comment on above: . Test Performed by [facility], [address] [place] [address] Troponin x1on 10-19-2020 Interpretation and review of laboratory results Abnormal [place] Troponin I.cardiac [Mass/Vol] 0.642 ng/mL High 0 - 0.034 ng/mL [place] Comment on above: . Test Performed by [facility], [address] [place] [address] XR CHEST PORTABLEon 10-19-19 Jose Cruz, [facility] Incoming Radiology Results From [facility] - 10/19/2020 10:01 AM EST Patient Name: JOSEPH BROWN Diagnostic Radiology ACCESSION EXAM DATE/TIME PROCEDURE ORDERING PROVIDER [id number] 10/19/2020 09:34 EST CR Chest Portable CANDELARIO BERNAL CPT code 80442 Reason For Exam (CR Chest Portable) COVID [...] RISA Transcribed Date and Time: 10/19/2020 10:01 [place] Patient Name: [id number] Diagnostic Radiology ACCESSION EXAM DATE/TIME PROCEDURE ORDERING PROVIDER [id number] 10/19/2020 09:34 EST CR Chest Portable CANDELARIO EBRNAL CPT code 30956 Reason For Exam (CR Chest Portable) COVID [...] RISA Transcribed Date and Time: 10/19/2020 10:01 [place] Basic Metabolic Panelon -0 Anion gap [Moles/Vol] 6 mmol/L [place] Calcium [Mass/Vol] 8.4 mg/dL 8.4 - 10. 4 mg/dL [place] Chloride [Moles/Vol] 105 mmol/L 98 - 10 7 mmol/L [place] CO2 [Moles/Vol] 24 mmol/L 22 - 30 mmol/L [place] Creatinine [Mass/Vol] 0.67 mg/dL 0.52 - 1.25 mg/dL [place] EGFR IF NonAfrican Turkmen >90.0 >60 mL/min [place] Comment on above: KDIGO guidelines pro [...] MDRD (S/P/Bld) [Vol rate/Area] mL/min/{1.73_m2} >60 mL/min [place] Glucose [Mass/Vol] 120 mg/dL High 70 - 100 mg/dL [place] Interpretation and review of laboratory results Abnormal [place] Potassium [Moles/Vol] 4.0 mmol/L 3.5 - 5.1 mmol/L [place] Sodium [Moles/Vol] 134 mmol/L Low 135 - 145 mmol/L [place] Urea nitrogen [Mass/Vol] 11 mg/dL 7 - 20 mg/d L [place] Test Performed by [facility], [address], [place], [place] [address] [place] Hemogram (CBC) w/Auto Diffon 10-16-2020 Absolute Baso # 0.0 10*3/uL 0 - 0.2 10*3/uL [place] Absolute Neut # 3.4 10*3/uL 1.8 - 7 10*3/uL [place] Basophils/100 WBC (Bld) 0.6 % 0 - 2 % [place] Eosinophils (Bld) [#/Vol] 0.0 10*3/uL 0 - 0.5 10*3/uL [place] Eosinophils/100 WBC (Bld) 0.5 % Low 1 - 6 % [place] Erythrocyte distribution width (RBC) [Ratio] 14.2 % 11.5 - 14.5 % [place] Granulocytes/100 WBC (Bld) 72.7 % 40 - 80 % [place] Hematocrit (Bld) [Volume fraction] 42.4 % 40 - 52 % [place] Hemoglobin (Bld) [Mass/Vol] 14.0 g/dL 13 - 18 g/dL [place] Interpretation and review of laboratory results Abnormal [place] Lymphocytes (Bld) [#/Vol] 0.9 10*3/uL Low 1 - 4.3 10*3/uL [place] Lymphocytes/100 WBC (Bld) 19.1 % Low 20 - 40 % [place] MCH (RBC) [Entitic mass] 29.5 pg 26 - 34 pg [place] MCHC (RBC) [Mass/Vol] 33.0 % 32 - 36 % [place] MCV (RBC) [Entitic vol] 89.4 fL 80 - 98 fL [place] Monocytes (Bld) [#/Vol] 0.3 10*3/uL 0 - 0.8 10*3/uL [place] Monocytes/100 WBC (Bld) 7.1 % 2 - 10 % [place] Platelet mean volume (Bld) [Entitic vol] 8.0 fL 7.4 - 10.4 fL [place] Platelets (Bld) [#/Vol] 138 10*3/uL Low 140 - 440 10*3/uL [place] RBC (Bld) [#/Vol] 4.74 10*6/uL 4.4 - 5.9 10*6/uL [place] WBC (Bld) [#/Vol] 4.7 10*3/uL 3.6 - 10.7 10*3/uL [place] Test Performed by [facility], [address], [place], [place] [address] [place] Troponin x1on 10-16-2020 Troponin I.cardiac [Mass/Vol] ng/mL 0 - 0.034 ng/mL [place] Comment on above: . Test Performed by [facility], [address], [place], [place] [id number] [place] [address] XR CHEST PORTABLEon 10-16-19 Jose Cruz, [facility] Incoming Radiology Results From [facility] - 10/16/2020 8:47 AM EST Patient Name: JOSEPH BROWN Diagnostic Radiology ACCESSION EXAM DATE/TIME PROCEDURE ORDERING PROVIDER [id number] 10/16/2020 08:34 EST CR Chest Portable MD LOPEZ AUSTIN CPT code 71496 Reason For Exam (CR Chest Portable) cough, [...] JASON Transcribed Date and Time: 10/16/2020 8:47 [place] Patient Name: JOSEPH BROWN Diagnostic Radiology ACCESSION EXAM DATE/TIME PROCEDURE ORDERING PROVIDER [id number] 10/16/2020 08:34 EST CR Chest Portable MD LOPEZ AUSTIN CPT code 07591 Reason For Exam (CR Chest Portable) cough, [...] JASON Transcribed Date and Time: 10/16/2020 8:47 [place] EMG REPORTon 12-20-2019 William Correia MD [...] UPPER EXTREMITY LOCATION: Testing was conducted at [facility] as an outpatient. FINDINGS: Sensory nerve conduction [...] Clinical correlation is advised. Delonte Job ID: [id number] DOD:12/20/2019 09:39 A FRANK/pedrito DOT:12/20/2019 10:37 A Job Number: [id number] Document Number: [id number] ###### cc: Laquita Ding DO [facility] [address] [facility] [address] [facility] AAA Screeningon 9 [facility] Abdominal Aortic Duplex Report Patient Name: Joseph Brown : 1955 Study Date: 06/05/2019 [place] (63yrs) Age: 63 Account: [id number] Gender: M Loc: BP: Ordering: Laquita Ding Technologist: Ordering Physician: Laquita Ding Professional Housing Consultant: Dina Talbot Interpreting Physician: Brody Stewart Location: [facility] INDICATIONS: AAA screening Z87.891. Remote former [...] performed. The images were obtained using a [employer] E9 vascular ultrasound machine. Arterial flow: + [...] +-------- + Electronically signed by: Brody Stewart [id number] [facility] [employer]- [place], [place] Jose Cruz, [facility] Incoming Cardiology Results From Kathleen/Torrey - 06/05/2019 1:10 PM EDT [facility] --- Abdominal Aortic Duplex Report Patient Name: Joseph Brown : 1955 Study Date: 06/05/2019 Neet[place] (63yrs) Age: 63 Account: [id number] Gender: M Loc: BP: Ordering: Laquita Ding Technologist: Ordering Physician: Laquita Ding Professional Housing Consultant: Dina Talbot Interpreting Physician: Brody Stewart --- Location: [facility] --- INDICATIONS: AAA screening Z87.891. Remote [...] performed. The images were obtained using a [employer] E9 vascular ultrasound machine. --- Arterial flow: [...] +-------- + Electronically signed by: Brody Stewart [id number] [place] Vital Signs Date Time Vital Sign Value Performing Clinician Facility 07-04-2025 13:13-0400 Body temperature 97.8 [degF] LAQUITA DING Work Phone: [facility] 07-04-2025 13:13-0400 Diastolic blood pressure 78 mm[Hg] LAQUITA DING Work Phone: [facility] 07-04-2025 13:13-0400 Heart rate 64 /min LAQUITA DING Work Phone: [facility] 07-04-2025 13:13-0400 Respiratory rate 18 /min LAQUITA DING Work Phone: [facility] 07-04-2025 13:13-0400 SaO2% (BldA) [Mass fraction] 99 % LAQUITA DING Work Phone: [facility] 07-04-2025 13:13-0400 Systolic blood pressure 114 mm[Hg] LAQUITA DING Work Phone: [facility] 07-04-2025 09:52-0400 Body mass index (BMI) [Ratio] 33.7 kg/m2 LAQUITA DING Work Phone: [facility] 07-04-2025 09:52-0400 Body weight 112.76 kg LAQUITA DING Work Phone: [facility] 07-04-2025 09:41-0400 Body height 182.88 cm LAQUITA DING Work Phone: [facility] 06-09-2025 15:04-0400 Body temperature 97.39 [degF] Marjorie Sears MD Work Phone: [facility] 06-09-2025 15:04-0400 Diastolic blood pressure 76 mm[Hg] Marjorie Sears MD Work Phone: [facility] 06-09-2025 15:04-0400 Heart rate 85 /min Marjorie Sears MD Work Phone: [facility] 06-09-2025 15:04-0400 Respiratory rate 19 /min Marjorie Sears MD Work Phone: [facility] 06-09-2025 15:04-0400 SaO2% (BldA) [Mass fraction] 96 % Marjorie Sears MD Work Phone: [facility] 06-09-2025 15:04-0400 Systolic blood pressure 137 mm[Hg] Marjorie Sears MD Work Phone: [facility] [employer] 05-22-2025 08:12-0400 Body temperature 96.91 [degF] Jacoby Glozman DO Work Phone: [facility] [employer] 05-22-2025 08:12-0400 Diastolic blood pressure 69 mm[Hg] Jacoby Glozman DO Work Phone: [facility] 05-22-2025 08:12-0400 Heart rate 74 /min Jacoby Glozman DO Work Phone: [employer] 05-22-2025 08:12-0400 Respiratory rate 20 /min Jacoby Glozman DO Work Phone: [facility] 05-22-2025 08:12-0400 SaO2% (BldA) [Mass fraction] 99 % Jacoby Glozman DO Work Phone: [facility] 05-22-2025 08:12-0400 Systolic blood pressure 122 mm[Hg] Jacoby Glozman DO Work Phone: [facility] [employer] 05-21-2025 02:06-0400 Body height 182.9 cm Jacoby Glozman DO Work Phone: [facility] 05-21-2025 02:06-0400 Body mass index (BMI) [Ratio] 31.87 kg/m2 Jacoby Glozman DO Work Phone: [facility] 05-21-2025 02:06-0400 Body weight 106.59 kg Jacoby Glozman DO [facility] Phone: [facility] 12-20-2024 11:18-0500 Diastolic blood pressure 65 mm[Hg] Cydney Alondra DO Work Phone: [facility] 12-20-2024 11:18-0500 Heart rate 73 /min Cydney Alondra DO Work Phone: [facility] 12-20-2024 11:18-0500 SaO2% (BldA) [Mass fraction] 98 % Cydney Alondra DO Work Phone: [facility] 12-20-2024 11:18-0500 Systolic blood pressure 118 mm[Hg] Cydney Alondra DO Work Phone: [facility] 12-20-2024 09:09-0500 Body height 185.4 cm Cydney Alondra DO Work Phone: [facility] 12-20-2024 09:09-0500 Body mass index (BMI) [Ratio] 31.66 kg/m2 Cydney Cantu DO Work Phone: [facility] [employer] 12-20-2024 09:09-0500 Body weight 108.86 kg Cydney Cantu DO Work Phone: [facility] [employer] 12-20-2024 09:09-0500 Respiratory rate 20 /min Cydney Cantu [employer] Work Phone: [facility] 11-04-2020 11:12-0500 Body Temperature 97.39 [degF] [facility] 11-04-2020 11:12-0500 BP Diastolic 63 mm[Hg] [facility] , [place] 11-04-2020 11:12-0500 BP Systolic 105 mm[Hg] [facility] , [place] 11-04-2020 11:12-0500 Pulse (Heart Rate) 69 /min [facility] 11-04-2020 11:12-0500 Pulse Oximetry 94 % [facility] , [place] 11-04-2020 11:12-0500 Respiratory Rate 18 /min [facility] 11-04-2020 06:31-0500 BMI (Body Mass Index) 31.1 kg/m2 [facility] 11-04-2020 06:31-0500 Body weight 104.01 kg [facility] [place] 11-02-2020 15:27-0500 Height 182.9 cm [facility] , [place] 10-16-2020 10:01-0500 BP Diastolic 70 mm[Hg] [facility] , [place] 10-16-2020 10:01-0500 BP Systolic 129 mm[Hg] [facility] , [place] 10-16-2020 10:01-0500 Pulse (Heart Rate) 87 /min [facility], [place] 10-16-2020 10:01-0500 Pulse Oximetry 97 % Fransisco Lopez [facility] , [place] 10-16-2020 10:01-0500 Respiratory Rate 20 /min Fransisco Lopez [facility], [place] 10-16-2020 07:56-0500 BMI (Body Mass Index) 32.28 kg/m2 Fransisco Medina [facility], [place] 10-16-2020 07:56-0500 Body Temperature 99.19 [degF] [facility], [place] 10-16-2020 07:56-0500 Body weight 107.96 kg Fransisco [facility] , TIFF Encounters Encounter Date Encounter Type Care Provider Facility Start: 08-16-2025 End: 08-18-2025 ambulatory Alexys Shahid Facility:[facility] Start: 08-13-2025 End: 08-13-2025 [facility]ulatory [facility] Start: 08-13-2025 End: 08-13-2025 Patient encounter procedure [facility] Start: 07-05-2025 Encounter for preprocedural laboratory examination [facility] Start: 07-04-2025 End: 07-04-2025 Emergency department patient visit Dr. Lawrence Abad MD -Emergency Department Work Phone: Start: 07-01-2025 End: 07-01-2025 ambulatory LAQUITA DING Work Phone: -Laboratory Specimen Start: 07-01-2025 End: 07-01-[address] Haresh Johnson MD -Laboratory Specimen Work Phone: Start: 07-01-2025 End: 07-01-2025 ambulatory [facility] Facility:[facility] Start: 06-25-2025 End: 06-25-2025 ambulatory LAQUITA DING Work Phone: -Laboratory Start: 06-25-2025 End: 06-25-[address] Haresh Johnson MD -Laboratory Work Phone: Start: 06-25-2025 End: 06-25-2025 ambulatory [facility] Facility:[facility] Start: 06-09-2025 End: 06-09-2025 Emergency department patient visit Marjorie Sears MD Work Phone: [facility] ED Comment on above: Laceration of right thumb without foreign body without damage to nail, initial encounter (Primary Dx) Start: 05-20-2025 End: 05-22-[facility] Start: 05-20-2025 End: 05-22-2025 Evaluation and management of inpatient Jacoby Sanders DO Work Phone: [facility] Medical Surgical Unit MSU 4S Comment on above: Dizziness (Primary D x) Start: 05-20-2025 End: 05-20-2025 Subsequent hospital visit by physician [facility] Non-Invasive Cardiology Comment on above: Arrived Start: 05-20-2025 End: 05-20-2025 Emergency department patient visit LAQUITA DING [facility] Start: 12-20-2024 End: 12-20-2024 Emergency department patient visit Cydney Shayulloch DO Work Phone: [facility] ED Comment on above: Sinusitis, unspecifi ed chronicity, unspecified location (Primary Dx); Vertigo Start: 08-28-2021 End: 08-28-2021 Subsequent hospital visit by physician Laquita Ding DO Work Phone: [facility] MRI Comment on above: Arrived Start: 08-18-2021 End: 08-18-2021 Subsequent hospital visit by physician Laquita Ding DO Work Phone: [facility] Start: 08-11-2021 End: 08-11-2021 Subsequent hospital visit by physician Laquita Ding DO Work Phone: [facility] Start: 08-09-2021 End: 08-09-2021 Subsequent hospital visit by physician Laquita Ding DO Work Phone: [facility] Start: 08-04-2021 End: 08-04-2021 Subsequent hospital visit by physician Laquita Ding DO Work Phone: [facility] Start: 08-02-2021 End: 08-02-2021 Subsequent hospital visit by physician Laquita Ding DO Work Phone: [facility] Start: 07-28-2021 End: 07-28-2021 Subsequent hospital visit by physician Laquita Ding DO Work Phone: [facility] Start: 07-26-2021 End: 07-26-2021 Subsequent hospital visit by physician Laquita Ding DO Work Phone: [facility] Start: 07-23-2021 End: 07-23-2021 Subsequent hospital visit by physician Laquita Ding DO Work Phone: [facility] Start: 04-06-2021 End: 04-06-2021 Subsequent hospital visit by physician Carolina Francois MD Work Phone: [facility] Radiology Comment on above: Pneumonia due to COV ID-19 virus Start: 12-09-2020 End: 12-09-2020 Subsequent hospital visit by physician Venkat Grant Work Phone: [facility] ECHO Comment on above: Supraventricular tac hycardia (HCC); SVT (supraventricular tachycardia) (HCC) Pneumonia due to COV ID-19 virus Start: 10-19-2020 End: 11-04-2020 Evaluation and management of inpatient Candelario Lomeli Work Phone: [facility] 2E TELEMETRY Comment on above: Pneumonia due to COV ID-19 virus (Primary Dx); Elevated troponin Start: 10-16-2020 End: 10-16-2020 Emergency department patient visit Fransisco Lopez Work Phone: [facility] ED Comment on above: Cough (Primary Dx); COVID-19 Start: 12-20-2019 End: 12-20-2019 Subsequent hospital visit by physician Laquita Ding Work Phone: [facility] Neuro Comment on above: Arrived Start: 06-05-2019 End: 06-05-2019 Subsequent hospital visit by physician Laquita Ding Work Phone: [facility] Vascular Lab Comment on above: Arrived Procedures Date Procedure Procedure Detail Performing Clinician Start: 07-04-2025 Estimated creatinine clearance LAQUITA TIMUR Work Phone: Start: 06-09-2025 ED LACERATION REPAIR Riley Avalos Maximilianokee DO Work Phone: Start: 05-22-2025 Lipid 1996 panel - Serum or Plasma Jacoby Glozman DO Work Phone: Start: 05-22-2025 Comprehensive metabolic panel José Antonio Woodruff MD Work Phone: Start: 05-22-2025 Lipid panel José Antonio Woodruff MD Work Phone: Start: 05-21-2025 End: 05-21-2025 Mra head w/o contrst material Maggi Coelho PHOTO GRAPHICS LIBRARIAN - REQUIREMENTS ANALYST Work Phone: Start: 05-21-2025 Assay of troponin [...] Work Phone: Start: 11-02-2020 C-reactive protein Abiel Lkue Work Phone: Start: 11-02-2020 Calcium ionized Jerardo [...] Phone: Start: 10-31-2020 Assay of magnesium Jerardo Wero Work Phone: Start: 10-31-2020 Assay of phosphorus [...] Phone: Start: 10-30-2020 Assay of magnesium Jerardo Conteh Work Phone: Start: 10-30-2020 Assay of phosphorus inorganic Jerardo Conteh Work Phone: Start: 10-30-2020 Blood count complete auto&auto difrntl wbc Abiel Luke Work Phone: Start: 10-30-2020 C-reactive protein Abiel Luke Work Phone: Start: 10-30-2020 Calcium ionized Jerardo Riosler Work Phone: Start: 10-30-2020 Fibrin dgradj products d-dimer quantitative Abiel Luke Work Phone: Start: 10-30-2020 Lactate dehydrogenase ldh Abiel Luke Work Phone: Start: 10-30-2020 POCT ARTERIAL Jerardo Green Work Phone: Start: 10-29-2020 Radiologic exam chest single view Abiel Luke Work Phone: Start: 10-29-2020 POCT ARTERIAL Jerardo Julianio Work Phone: Start: 10-29-2020 Assay of ferritin Abiel Luke Work Phone: Start: 10-29-2020 Assay of magnesium Jerardo Conteh Work Phone: Start: 10-29-2020 Assay of phosphorus [...] Phone: Start: 10-27-2020 Assay of magnesium Jerardo Wero Work Phone: Start: 10-27-2020 Assay of phosphorus [...] Work Phone: Start: 10-26-2020 POCT ARTERIAL Jerardo Green Work Phone: Start: 10-26-2020 Assay of ferritin [...] Work Phone: Start: 10-25-2020 POCT ARTERIAL Jerardo Sellechio Work Phone: Start: 10-25-2020 POCT ARTERIAL Jerardo Whiteechio Work Phone: Start: 10-25-2020 Assay of ferritin [...] Work Phone: Start: 10-25-2020 POCT ARTERIAL Jerardo Sellechio Work Phone: Start: 10-24-2020 Smr prim src gram/giemsa stain bct fungi/cell Pilar Gomez Work Phone: Start: 10-24-2020 Virus centrifuge enhncd id imfluor stain ea Pilar Gomez Work Phone: Start: 10-24-2020 POCT ARTERIAL Jerardo [...] Start: 10-24-2020 Assay of phosphorus inorganic Jerardo Wero Work Phone: Start: 10-24-2020 Blood count complete auto&auto difrntl wbc Abiel Laurentson Work Phone: Start: 10-24-2020 C-reactive protein Abiel Luke Work Phone: Start: 10-24-2020 Calcium ionized Jerardo Conteh Work Phone: Start: 10-24-2020 Fibrin dgradj products d-dimer quantitative Abiel Luke Work Phone: Start: 10-24-2020 Lactate dehydrogenase ldh Abiel Laurentson Work Phone: Start: 10-24-2020 Procalcitonin (pct) Abiel [...] Phone: Start: 10-19-2020 Comprehensive metabolic panel [facility] Work Phone: Start: 10-19-2020 Ecg routine ecg [...] REPORT William Correia Work Phone: Start: 06-05-2019 abdominal aorta real time screen study aaa Laquita Gale Ding Work Phone: History of excision of lamina of lumbar vertebra for decompression of spinal cord History of lumbar laminectomy for spinal cord decompression LAQUITA DING Work Phone: Plan of Treatment Date Care Activity Detail Author Start: 06-09-2035 DTaP/Tdap/Td Vaccine s (4 - Td or Tdap) DTaP/Tdap/Td Vaccines (4 - Td or Tdap) [facility] Start: 05-22-2030 Lipid panel Lipid Panel [facility] Start: 08-06-2027 DTaP/Tdap/Td vaccine (2 - Td) DTaP/Tdap/Td vaccine (2 - Td) [place] Start: 08-06-2027 DTaP/Tdap/Td vaccine (3 - Td or Tdap) DTaP/Tdap/Td vaccine (3 - Td or Tdap) [facility] Start: 08-06-2027 DTaP/Tdap/Td vaccine (3 - Td) DTaP/Tdap/Td vaccine (3 - Td) [place] Start: 08-06-2027 DTaP/Tdap/Td Vaccine s (3 - Td or Tdap) DTaP/Tdap/Td Vaccines (3 - Td or Tdap) [facility] Start: 05-22-2026 Creatinine measurement Creatinine Le krishna [facility] Start: 05-22-2026 Diabetes mellitus screening Diabetes Screening [facility] Start: 05-22-2026 Potassium measurement Potassium Leve l [facility] Start: 07-04-2025 [facility] Start: 06-16-2025 COVID-19 Vaccine ( season) COVID-19 Vaccine ( season) [facility] Start: 06-16-2025 Influenza vaccination Influenza Vacc ine (#1) [facility] Start: 06-16-2024 COVID-19 Vaccine ( season) COVID-19 Vaccine ( season) [facility] Start: 06-16-2024 Influenza vaccination Influenza Vacc ine (#1) [facility] Start: 08-08-2022 Lipid panel Lipid screen [facility] [place] Start: 08-08-2022 Lipid screen Lipid screen [place], [place] Start: 11-04-2021 Creatinine measurement Creatinine mo nitoring [facility] Start: 11-04-2021 Potassium monitoring Potassium monit oring [facility] Start: 09-22-2021 End: 09-22-2021 Patient encounter procedure [facility] Sasha Cavanaugh Start: 06-24-2021 Screening for malign ant neoplasm of colon [facility] Start: 06-16-2021 Influenza vaccination Flu vaccine (# 1) [facility] Work Phone: Start: 04-07-2021 End: 04-07-2021 Patient encounter procedure 04/07/2021 Office Visit Pulmonology Carolina Francois MD [address], [place] [phone] [facility] Sasha Cavanaugh Start: 02-23-2021 End: 02-23-2021 Office Visit 02/23/2021 Office Visit Pulmonology Carolina Francois MD [address], [place] [phone] [facility] Start: 12-22-2020 COVID-19 Vaccine (2 of 2 - Moderna series) COVID-19 Vaccine (2 of 2 - Moderna series) [facility] Work Phone: Start: 06-16-2020 Influenza vaccination Flu vaccine (# 1) [place] Start: 10-20-2019 Annual Wellness Visi t (AWV) Annual Wellness Visit (AWV) [facility] Start: 06-16-2019 Influenza vaccination Flu vaccine (# 1) [place] Start: 2018 Pneumococcal 65+ yea rs Vaccine (1 of 2 - PCV13) Pneumococcal 65+ years Vaccine (1 of 2 - PCV13) [place] Start: 2018 Pneumococcal 65+ yea rs Vaccine (2 of 2 - PPSV23) Pneumococcal 65+ years Vaccine (2 of 2 - PPSV23) [place] Start: 08-08-2018 Lipid panel Lipid screen [facility] Start: 2013 RSV Immunization for Adults (1 - Risk 60-74 years 1-dose series) RSV Immunization for Adults (1 - Risk 60-74 years 1-dose series) [facility] Start: 2003 Colon cancer screen colonoscopy Colon cancer screen colonoscopy [place] Start: 2003 Screening for malign ant neoplasm of colon Colon cancer screen colonoscopy [place] Start: 2003 Shingles Vaccine (1 of 2) Sexton gles Vaccine (1 of 2) [facility] Start: 2003 Zoster Vaccines (1 of 2) Zoste r Vaccines (1 of 2) [facility] Start: 1998 Screening for malign ant neoplasm of colon Colon cancer screen colonoscopy [facility] Start: 1993 Diabetes screen Diabetes screen [facility] Start: 1971 Diabetes mellitus screening Diabetes Screening [facility] Start: 1971 Hepatitis C screening Hepatitis C Sc reening [facility] Start: 1968 HIV screen HIV screen [place], [place] Start: 1965 COVID-19 Vaccine (1) COVID-19 Vaccin e (1) [facility] Start: 1965 Depression Screening Depression Scre ening [facility] Start: 1953 Echocardiography Echocardiogram [facility] Start: 1955 Hepatitis C screen Hepatitis C scree n [place], [place] Start: 1953 Hepatitis C screening Hepatitis C sc reen [facility] Start: 1955 Lipid panel Lipid Panel [facility] Start: 1955 Screening for malign ant neoplasm of colon [facility] Basic metabolic 2000 panel Basic Metabolic Panel Lab Routine Daily until discontinued starting 11/03/2020, 2 completed [place] Comment on above: Daily until disconti nued starting 11/03/2020, 2 completed Calcium, Ionized Calcium, Ionize d Lab Routine Daily until discontinued starting 10/24/2020, 12 completed [place] Comment on above: Daily until disconti nued starting 10/24/2020, 12 completed CBC CBC Lab Routine Daily until discontinued starting 11/03/2020, 2 completed [place] Comment on above: Daily until disconti nued starting 11/03/2020, 2 completed D-Dimer, Quantitative D-Dimer, Q uantitative Lab Routine Every MWF at 4 AM (BMT lab orders) until discontinued starting 11/04/2020, 1 [facility] Comment [facility] above: Every MWF at 4 AM (B MT lab orders) until discontinued starting 11/04/2020, 1 completed EKG 12 Lead - Chest Pain EKG 12 Lead - Chest Pain ECG STAT 10/16/2020 8:11 AM EST [facility] Ferritin [Mass/Vol] Ferritin Lab Routine Every MWF at 4 AM (BMT lab orders) until discontinued starting 11/04/2020 [facility] Comment on above: Every MWF at 4 AM (B MT lab orders) until discontinued starting 11/04/2020 Hepatic Function Panel Hepatic F unction Panel Lab Routine Every MWF at 4 AM (BMT lab orders) until discontinued starting 11/04/2020 [facility] Comment on above: Every MWF at 4 AM (B MT lab orders) until discontinued starting 11/04/2020 Laceration Repair Laceration Rep air Procedures Routine 06/09/2025 3:45 PM EDT [facility] Work Phone: Magnesium [Mass/Vol] Magnesium L ab Routine Daily until discontinued starting 10/20/2020, 16 completed [facility] Comment on above: Daily until disconti nued starting 10/20/2020, 16 completed End: 08-28-2021 MRI LUMBAR [facility] Work Phone: Comment on above: Once for 1 Occurrenc es starting 08/28/2021 until 08/28/2021 Nebulizer therapy Nebulizer tx intermittent Respiratory Care Routine (respiratory use only) until discontinued starting 11/02/2020 [facility] Comment on above: (respirato ry use only) until discontinued starting 11/02/2020 Oxygen therapy [[facility] Data Set] Initiate Oxygen Therapy Protocol Respiratory Care Routine Daily until discontinued starting 10/20/2020 [facility] Comment on above: Daily until disconti nued starting 10/20/2020 Patient Education ED Fainting, V agal Reaction ED Fainting, Uncertain Cause [facility] Work Phone: Phosphate [Mass/Vol] Phosphorus Lab Routine Daily until discontinued starting 10/20/2020, 16 completed [facility] [place] Comment on above: Daily until disconti nued starting 10/20/2020, 16 completed Immunizations Immunization Date Immunization Notes Care Provider Sheri noonan 06-09-2025 tetanus toxoid, redu krys diphtheria toxoid, and acellular pertussis vaccine, adsorbed Marjorie Sears MD Work Phone: [facility] [employer] 08-23-2022 influenza virus vaccine, unspecified formulation Cydney Alondra DO Work Phone: [facility] [employer] 07-19-2021 influenza, injectabl e, quadrivalent, preservative free LAQUITA TIMUR Work Phone: [facility] 12-25-2020 Moderna SARS-CoV-2 Vaccination Cydney Alondra DO Work Phone: [facility] [employer] 11-24-2020 Moderna SARS-CoV-2 Vaccination Cydney Alondra DO Work Phone: [facility] [employer] 08-06-2017 tetanus toxoid, redu krys diphtheria toxoid, and acellular pertussis vaccine, adsorbed Laquita Timur [facility] Work Phone: Payers Date Payer Category Payer Self-pay 2021 Medicare supplementa l policy (as second payer) [facility] [id number] 2020 Private Health Insurance [facility] [id number] 2019 Medicare MEDICARE [place] [place] MEDICARE xxxxxxxxxxx 2019-Present [phone] [place] [address] xxxxxxxxxxx [id number] 2019 Medicare [facility] [id number] 2019 Medicare [id number] 2015 Unknown [place] P PO xxxxxxxxxxxx 2015-Present [address] [place] [address] xxxxxxxxxxxx [id number] Unknown [id number] Unknown [id number] Unknown [id number] Unknown [id number] Unknown [id number] Unknown [id number] Unknown [id number] Social History Date Type Detail Facility Start: 09-12-2017 End: 07-04-2025 Tobacco smoking status NHIS Former smoker [facility]TOINE End: 10-16-1982 History of tobacco use Current [place]oker [place] Start: 09-12-2017 End: 05-21-2025 Cigarettes smoked current (pack per day) - Reported [place] Start: 09-12-2017 End: 06-09-2025 Alcohol intake Current non-drinker of alcohol (finding) [place] Start: 1955 Sex Assigned At Not on file M [place], [place] Start: 08-06-2017 End: 10-16-2020 Tobacco use and exposure Former user [place] End: 10-16-1981 History of tobacco use User of smokeless tobacco [place] Exposure to SARS-CoV -2 (event) Not sure [place] Start: 09-12-2017 End: 05-21-2025 Alcohol intake No [place] End: 10-16-1982 History of tobacco use Cigarette Smoker [facility] How often to you hav e a drink containing alcohol? Never [facility] How many standard drinks containing alcohol do you have on a typical day? Patient does not drink [facility] Start: 05-16-2022 Sex Male (finding) [facility] Has the [employer], [employer], oil, or water company threatened to shut off services in your home in past 12Mo No [facility] (I/We) worried lara er (my/our) food would run out before (I/we) got money to buy more. Never true [facility] Start: 1955 Sex Assigned At Male [facility] Medical Equipment Procedure Code Equipment Code [...] [AUDIT-C] 0 06/09/20 3:04 PM EDT Taryn Moon RN [facility] Mental Status Date Assessment Result Facility 07-04-2025 Cognitive function Level Of Consciousness Awake [facility] Work Phone: Clinical Notes 12-20-2024 to 08-18-2025 Telephone Encounter - Kim Downing RN - 08/13/2025 4:10 PM EDTTelephone Encounter - Kim Downing RN - 08/13/2025 4:10 PM EDTDischarge InstructionsAttachmentsDischarge InstructionsAttachments Note Date & Type Note Facility 08-18-2025 Note [facility] Medical Records Department [address] [place] [address] Discharge Summary 08/18/25 1125 MR#: [id number] Acct: [id number] Name: JOSEPH BROWN Rep #: [id number] : 1955 69 From: Alexys Shahid MD PCP: Dr. Sherice العلي MD Status:ADM RAYRAY Location: MS3 AT238-8 Providers Date of Admission: 08/16/25 Primary Care Physician: Dr. Sherice العلي MD Reason For Visit: CELLULITIS Diagnosis Discharge Diagnosis (1) Cellulitis of left buttock: Status: Acute Code(s): L03.317 - Cellulitis of buttock Medications at Discharge Home Medications atorvastatin 40 mg tablet 40 mg PO QHS CHOLESTEROL 11/11/21 acetaminophen 500 mg tablet 1,000 mg (2 x 500 mg) PO Q8 PRN fever or pain #0 tabs 12/07/21 meloxicam 15 mg tablet 15 mg PO DAILY 07/04/25 magnesium 250 mg tablet 500 mg PO DAILY 08/16/25 cephalexin 500 mg capsule 500 mg PO Q8 7 days #21 caps 08/18/25 doxycycline monohydrate 100 mg capsule 100 mg PO BID 7 days #14 caps 08/18/25 Hospital Course Operations None Procedures None Summary of Care Provided Minutes Spent on Discharge: 35 Hospital Course: Per HPI: JOSEPH BROWN, is a 69 M who presents to the hospital with concerns for a left buttock abscess. He had gone to an urgent care last week where they did an aspiration and put him on antibiotics. He took approximately a day or 2 of antibiotics before coming into the hospital today. CT scan is negative for organized abscess but does show cellulitis, in the ER he had a little bit of an I D that drained a little bit of purulent fluid. This was sent off for culture. He was started on Unasyn. No signs of sepsis he does have a leukocytosis but no fever. No decreased mobility or pain in his hip and based on imaging there is no extension of the infection. Hospital Course: 1. Left buttock cellulitis secondary to MRSA???69-year-old male presented to the hospital with an abscess that had a fine-needle aspiration done at an urgent care and was placed on Augmentin. He took approximately 2 days worth of antibiotics and then presented back to the hospital because of pain and redness. His white count was 14 and he was started on Unasyn. He did have improvement in his white count and cultures ultimately demonstrated MRSA infection. He was transition to p.o. doxycycline which is sensitive to but he is going to [place] on Monday so given the extent of cellulitis I also decided to cover him with Keflex to complete 7 days of treatment. His Keflex dosing is 500 mg p.o. 3 times daily and is doxycycline 100 mg p.o. twice daily. His packing was removed and he was instructed on dressing changes. I discussed with him the plan for discharge and he expressed understanding of the risks and benefits of going home and would like to go home today. Physical Exam Narrative General: Alert, Oriented x3, Cooperative, No apparent distress HEENT: Atraumatic, PERRLA, EOMI, Normocephalic Oral: Moist Mucosa Neck: Supple, No JVD Lungs: Clear to auscultation, Normal air movement, No rhonchi, No wheeze, No rales Cardiovascular: Regular rate, Regular Rhythm, Normal S1, Normal S2, No murmurs Abdomen: Soft, Non Tender, Non-Distended, No Hepato-splenomegaly Extremities: No edema, Capillary Refill Less than 3 Seconds Skin: Left buttock redness and erythema without fluctuance. There is an area of packing, there is some seepage through the dressing???much improved Musculoskeletal: No Tenderness to Palpation of Joints or Extremities Neurological: No focal neurological deficits, moves all extremities Psych/Mental Status: Normal Affect, Appropriate Weight / BMI Weight Weight: 241 lb 10.026 oz Body Mass Index (BMI) 32.8 ABG / Lab / Microbiology Data 08/18/25 05:20 08/17/25 05:12 Laboratory: Laboratory Results - last 24 hr 08/18/25 05:20: WBC 9.2, RBC 4.15 L, Hgb 12.6 L, Hct 37.8 L, MCV 91.1, MCH 30.4, MCHC 33.3, RDW Std Deviation 44.9 H, RDW Coeff of Pancho 13.4, Plt Count 262, MPV 10.2, Immature Gran % (Auto) 0.300, Neut % (Auto) 68.2, Lymph % (Auto) 18.2 L, Morrison % (Auto) 7.9, Eos % (Auto) 5.0, Baso % (Auto) 0.4, Absolute Neuts (auto) 6.3, Absolute Lymphs (auto) 1.68, Nucleated RBC % 0 Microbiology: Microbiology 08/16/25 13:35 Wound Abcess - Hip Gram Stain - Final 08/16/25 13:35 Wound Abcess - Hip Wound Culture - Preliminary Meth. resistant Staph. aureus D/C Instructions Call your doctor if you observe: Fever of 101 or Higher, Shortness of breath, Dizziness, Fainting spells, Swelling in the ankles, Chest pain and Increased palpitations (irregular heartbeat) DC O2, CPAP, BIPAP Needs Home O2 Discharge instructions: No Meaningful Use Info Meaningful Use Meaningful Use Diagnoses (Choose all that apply): None applicable Discharge Plan Admission Admit Date/Time: 08/16/25 14:40 Attending Provider: (more content not included)... [facility] 08-13-2025 Telephone encount er Note S: Patient spoke with [facility] nurse regarding boil B: Onset of symptoms/concern [...] pong ball) Protocols used: Boil (Skin Abscess)-ADULT-AH [facility] 08-13-2025 Miscellaneous Notes Formattin g of this note might be different from the original. S: Patient spoke with [facility] nurse regarding boil B: Onset of symptoms/concern [...] Boil (Skin Abscess)-ADULT- documented in this encounter [facility] 07-04-2025 Discharge summary [facility] 06-09-2025 Hospital Discharge instructions Riley Carcamo DO [...] through Care Everywhere.Laceration Repair With Stitches ED ([place])documented in this encounter [facility] 06-09-2025 Note Procedure Laceration Repair Performed by: Riley Carcamo DO Authorized by: Marjorie Sears MD Consent: Consent obtained: Verbal Consent given by: Patient Risks, benefits, and alternatives were discussed: yes Risks discussed: Infection, pain and need for additional repair [place] protocol: Procedure explained and questions answered to [...] Tolerated Riley Carcamo DO Resident 06/09/25 1612 [facility] 06-09-2025 Emergency department Note EMERGENCY DEPARTMENT [...] PPE for the entirety of this encounter. [facility] Joseph Brown is a 69 y.o. [...] Response: Oriented Best Motor Response: Follows commands [place] Coma Scale Score: 15 PHYSICAL EXAM ED [...] 06/09/2025 4:09 PM EDT Emergency Department Encounter [facility] ED Patient: Joseph Brown : [...] [employer] Marjorie Sears MD 06/09/25 1534 documented in this encounter [facility] 06-09-2025 Physician Emergency department Note EMERGENCY DEPARTMENT [...] Response: Oriented Best Motor Response: Follows commands [place] Coma Scale Score: 15 PHYSICAL EXAM ED [...] Year: No Riley Carcamo DO Resident 06/09/25 1605 Cosigned by Marjorie Sears MD at 06/09/2025 4:09 PM EDT [facility] 06-09-2025 Physician Emergency department Note Emergency Department Encounter [facility] ED Patient: Joseph Brown : [...] for clarification.) Marjorie Sears MD Acute Care [facility] Marjorie Sears MD 06/09/25 3288 [facility] Work Phone: 05-22-2025 Nurse Note Pt given and educated on discharge instructions. Pt and family have no questions at this time. IV removed. Pt discharged to private vehicle. [facility] 05-22-2025 Nurse Note Pt given and educated on discharge instructions. Pt and family have no questions at this time. IV removed. Pt discharged to private vehicle. documented in this encounter [facility] 05-22-2025 Note Hospitalist Discharg e Summary Joseph [...] Narrative: Patient Name: JOSEPH BROWN : 1955 [facility]#: [id number] Exam Date/Time: 05/21/2025 16:00 Procedure: MR HEAD [...] basilar and proximal posterior cerebral arteries. 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 [facility] 05-22-2025 Hospital course Narrative Hospitalist Discharge [...] Narrative: Patient Name: JOSEPH BROWN : 1955 [facility]#: [id number] Exam Date/Time: 05/21/2025 16:00 Procedure: MR HEAD [...] basilar and proximal posterior cerebral arteries. Right TRIM SETTER HELPER derives major contribution from anterior circulation consistent [...] Narrative: Patient Name: JOSEPH BROWN : 1955 [facility]#: [id number] Exam Date/Time: 05/21/2025 16:00 Procedure: MR NECK [...] basilar and proximal posterior cerebral arteries. Right TRIM SETTER HELPER derives major contribution from anterior circulation consistent [...] basilar and proximal posterior cerebral arteries. Right TRIM SETTER HELPER derives major contribution from anterior circulation consistent [...] Narrative: [facility] 1955 [id number] Exam Date/Time: 05/21/2025 00:21 Procedure: CT HEAD [...] Your Medications These medications were sent to [facility]/pharmacy #[id number] [place] [id number] [facility] [address] [address] amoxicillin-clavulanate 875-125 MG tablet fluticasone 50 MCG/ACT nasal spray Recommended Follow-up: Laquita Ding, [address] [facility] [address] [facility] [phone] Schedule an appointment as soon as possible for a visit in 1 week(s) for medical follow up for hospital ENT Schedule an appointment as soon as possible for a visit in 1 week(s) for medical follow up for [facility] Complexity of Follow up: [] Moderate Complexity: follow up within 7-14 calendar days (28540) [x] Severe Complexity: follow up within 7 calendar days (25471) Follow up Testing, Pending results or Referrals [...] MD Division of Hospitalist Medicine [place] [place]22/[place]25, 6:21 PM [1] Past Medical History: Diagnosis Date Arthritis SVT (supraventricular tachycardia) (HCC) Syncope documented in this encounter [facility] 05-22-2025 Note PROGRESS NOTE. NEURO LOGY Patient Name:Jsoeph Brown Patient : 1955 Acct: [id number] Date of Admission: 05/20/2025 [facility] PCP: Laquita Ding DO Patient location [...] CELL COUNT, GRA (more content not included)... [facility] 05-22-2025 History of Present illness Narrative PROGRESS NOTE. NEUROLOGY Patient Name:Joseph Brown Patient : 1955 Acct: [id number] Date of Admission: 05/20/2025 Room/Bed: B4-454/B4-454 A PCP: Laquita Ding DO Patient location [place] Remains in the hospital due to persistent [...] 300 mg, 300 mg, Rectal, Daily, José Antoino Woodruff MD atorvastatin (Lipitor) tablet 40 mg, [...] original note were not included. OCCUPATIONAL THERAPY [facility] Name/MRN: Joseph Brown ([id number]) Date: 05/22/2025 Therapy eval and treat orders received for if Elena < 100 and below baseline. Elena noted to be 100 this admission. Will discontinue orders at this time. Should pt demo a change in status, please reorder OT services. Mikie Chavira OT Images from the original note were not included. PHYSICAL THERAPY [facility] Name/MRN: Joseph Brown ([id number]) Date: 05/22/2025 Chart review completed, pt currently [...] original note were not included. OCCUPATIONAL THERAPY [facility] ED's Name/MRN: Joseph Brown ([id number]) Date: 05/21/2025 Therapy eval and treat orders [...] original note were not included. PHYSICAL THERAPY [facility] Initial Evaluation Name/MRN: Joseph Brown ([id number]) Evaluation Date: 05/21/2025 Date of : 1955 Admission Date: 05/20/2025 11:16 PM Age: 69 y.o. Room/Bed: B4454/B4454 A Discharge Recommendation: Home independently Equipment Needed: [...] Chronic respiratory failure with hypoxia ([facility]) 11/24/2020 Acute deep vein thrombosis (DVT) of both lower extremities ([facility]) 11/04/2020 Essential hypertension 11/04/2020 Pneumonia due to COVID-19 virus 11/04/2020 BPH without obstruction/lower urinary tract symptoms 11/04/2020 SVT (supraventricular tachycardia) ([facility]) 11/04/2020 ARDS (adult respiratory distress syndrome) ([facility]) 10/24/2020 Syncope 09/12/2017 Epididymal cyst 01/25/2017 Medical [...] Responsibilities: Independent Receives Help From: None 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 [...] of Care supervision is transferred to a [facility] Therapy Services Physical Therapist. Goals and/or treatment plan was established in collaboration with patient/family/other representatives. [1] Past Medical History: Diagnosis Date Arthritis SVT (supraventricular tachycardia) (HCC) Syncope [2] Past Surgical History: Procedure Laterality Date AMPUTATION fingers CHOLECYSTECTOMY documented in this encounter [facility] 05-22-2025 Note Care Management Prog ress Note Short Medical why still here: Patient remains on 4S today for complaints of dizziness/KENT. Neurology consulted to see. CT head/MRI brain complete. No acute findings/no significant stenosis. CT head showed some nasal polyps/MRI some paranasal sinus disease/polyposis. EKG SR. Swallow eval passed. Patient independent Planned Discharge Disposition: Home with spouse Barriers/Today we still Wait: Clinical stability, Pickling Grader recommendations (Neuro) Length of Stay (Days): 0 GMLOS: No GMLOS Documented [facility] 05-22-2025 Progress note Formatting of t [...] spouse Barriers/Today we still Wait: Clinical stability, Pickling Grader recommendations (Neuro) Length of Stay (Days): 0 GMLOS: No GMLOS Documented [facility] 05-22-2025 Hospital Discharge instructions Seema Lizarraga RN [...] and the need for follow-up with a physician/ACCOUNT RESOLUTION EXPERT/PA after discharge. Seema Lizarraga RN on 05/22/25 [...] through Care Everywhere.Vertigo (a Type of Dizziness) (Bermudian)documented in this encounter [facility] 05-22-2025 Note Speech-Programming Director ology Patient passed the Nursing Swallowing Screening. As per stroke policy, no formal dysphagia evaluation is required. Completed speech orders. [facility] 05-21-2025 Consult note Formatting of th is note is different from the original. INITIAL CONSULT NOTE. NEUROLOGY Patient Name: Joseph Brown Patient : 1955 Acct: [id number] Date of Admission: 05/20/2025 Room/Bed: B4-454/B4-454 A [...] hits bed +2 [] Some Effort Against [place] +2 [] No Effort Against [place] +3 [] No Movement +4 5B: Right Arm Motor [] Amputation/Joint Fusion 0 [x] No Drift for 10 Seconds 0 [] Drift, but doesn't hit bed +1 [] Drift, hits bed +2 [] Some Effort Against [place] +2 [] No Effort Against [place] +3 [] No Movement +4 6A: Left Leg Motor [] Amputation/Joint Fusion 0 [x] No Drift for 5 Seconds 0 [] Drift, but doesn't hit bed +1 [] Drift, hits bed +2 [] Some Effort Against [place] +2 [] No Effort Against [place] +3 [] No Movement +4 6B: Right Leg Motor [] Amputation/Joint Fusion 0 [x] No Drift for 5 Seconds 0 [] Drift, but doesn't hit bed +1 [] Drift, hits bed +2 [] Some Effort Against [place] +2 [] No Effort Against [place] +3 [] No Movement +4 7: Limb [...] 410 ms QTC Interval 422 ms P [place] 47 degrees QRS [place] 6 degrees T Wave [place] 44 degrees [place] Interval 128 ms CBC auto differential Collection [...] ALT 18 AST 25 BILITOT 0.4 @BRIEFLAB([facility]) ABGs:)No results for input(s): PH, PO2, [...] normal for motor, sensory ,coordination and gate Carter, lung and carotid auscultation was normal . [...] to be involved in this patient's care. [facility] 05-21-2025 Consult note Formatting of th is note is different from the original. INITIAL CONSULT NOTE. NEUROLOGY Patient Name: Joseph Brown Patient : 1955 Acct: [id number] Date of Admission: 05/20/2025 [facility] PCP: Laquita Ding DO History of [...] hits bed +2 [] Some Effort Against [place] +2 [] No Effort Against [place] +3 [] No Movement +4 5B: Right Arm Motor [] Amputation/Joint Fusion 0 [x] No Drift for 10 Seconds 0 [] Drift, but doesn't hit bed +1 [] Drift, hits bed +2 [] Some Effort Against [place] +2 [] No Effort Against [place] +3 [] No Movement +4 6A: Left Leg Motor [] Amputation/Joint Fusion 0 [x] No Drift for 5 Seconds 0 [] Drift, but doesn't hit bed +1 [] Drift, hits bed +2 [] Some Effort Against [place] +2 [] No Effort Against [place] +3 [] No Movement +4 6B: Right Leg Motor [] Amputation/Joint Fusion 0 [x] No Drift for 5 Seconds 0 [] Drift, but doesn't hit bed +1 [] Drift, hits bed +2 [] Some Effort Against [place] +2 [] No Effort Against [place] +3 [] No Movement +4 7: Limb [...] 410 ms QTC Interval 422 ms P [place] 47 degrees QRS [place] 6 degrees T Wave [place] 44 degrees [place] Interval 128 ms CBC auto differential Collection [...] ALT 18 AST 25 BILITOT 0.4 @BRIEFLAB([facility]) ABGs:)No results for input(s): PH, PO2, [...] normal for motor, sensory ,coordination and gate Carter, lung and carotid auscultation was normal . [...] this patient's care. documented in this encounter [facility] 05-21-2025 History and physical note Attending History [...] Vital Signs Full code Inpatient consult to Neurology--[facility]; dizziness OT eval and treat [...] - DO NOT do CPR, intubation] [_] [DNR-ELECTROMECHANICAL TECHNICIAN - Comfort care only] [_] DNR form [...] family/surrogate. José Antonio Woodruff MD Acute care [facility] 05/21/2025, 9:12 PM [1] Past Medical History: [...] Julian Marmolejo MD [5] No Known Allergies [facility] 05-21-2025 Note Attending History an d Physical [...] 179 BMP: Rece (more content not included)... [facility] 05-21-2025 History and physical note Attending [...] Vital Signs Full code Inpatient consult to Neurology--[facility]; dizziness OT eval and treat [...] - DO NOT do CPR, intubation] [_] [DNR-ELECTROMECHANICAL TECHNICIAN - Comfort care only] [_] DNR form [...] life care, with patient and/or family/surrogate. José Atnonio Woodruff MD Acute care [facility] 05/21/2025, 9:12 PM [1] Past Medical History: [...] No Known Allergies documented in this encounter [facility] 05-21-2025 Note PHYSICAL THERAPY [facility] Initial Evaluation Name/MRN: Joseph Brown ([id number]) Evaluation Date: 05/21/2025 Date of : 1955 Admission Date: 05/20/2025 11:16 PM Age: 69 y.o. [facility] Discharge Recommendation: Home independently Equipment Needed: [...] Chronic respiratory failure with hypoxia ([facility]) 11/24/2020 Acute deep vein thrombosis (DVT) of both lower extremities ([facility]) 11/04/2020 Essential hypertension 11/04/2020 Pneumonia due to COVID-19 virus 11/04/2020 BPH without obstruction/lower urinary tract symptoms 11/04/2020 SVT (supraventricular tachycardia) ([facility]) 11/04/2020 ARDS (adult respiratory distress syndrome) ([facility]) 10/24/2020 Syncope 09/12/2017 Epididymal cyst 01/25/2017 Medical [...] Responsibilities: Independent Receives Help From: None 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 [facility] 05-20-2025 Emergency department Note EMERGENCY DEPARTMENT [...] DO 05/21/25 0534 documented in this encounter [facility] 05-20-2025 Physician Emergency department Note EMERGENCY DEPARTMENT [...] injection 4 mg (4 mg IntraVENous Given 05/21/25 000) diphenhydrAMINE (BENADryl) injection 25 mg (25 mg IntraVENous Given 05/21/25 0123) SCREENINGS Kermit Coma Scale Best Eye Response: Spontaneous Best Verbal Response: Oriented Best Motor Response: Follows commands [place] Coma Scale Score: 15 Patient in for [...] use: No Jacoby Sanders DO 05/21/25 0534 T [facility] 01-14-2025 Miscellaneous Notes Care Management Progress Note Short Medical why still here: Patient remains on 4S today for complaints of dizziness/KENT. Neurology consulted to see. CT head/MRI brain complete. No acute findings/no significant stenosis. CT head showed some nasal polyps/MRI some paranasal sinus disease/polyposis. EKG SR. Swallow eval passed. Patient independent Planned Discharge Disposition: Home with spouse Barriers/Today we still Wait: Clinical stability, Pickling Grader recommendations (Neuro) Length of Stay (Days): 0 GMLOS: No GMLOS Documented documented in this encounter [facility] 12-20-2024 Note Sinus rhythm Abnormal R-wave progression, early transition Minimal ST depression, lateral leads Electronically Signed On 12-20-2024 15:38:23 EST by Cydney Cantu EPIPHANY 12-20-2024 Note Sinus rhythm Abnormal R-wave progression, early transition Minimal ST depression, lateral leads Electronically Signed On 12-20-2024 15:38:23 EST by Cydney Cantu EPIPHANY 12-20-2024 Note IMPRESSION: Sinus rhythm Abnormal R-wave progression, early transition Minimal ST depression, lateral leads Electronically Signed On 12-20-2024 15:38:23 EST by Cydney Cantu [facility] 12-20-2024 Hospital Discharge instructions Cydney Cantu DO - 12/20/2024 11:38 AM EST Antivert as needed for dizziness and Zofran for nausea. Can follow-up with ENT if you have persistent mild symptoms but if your symptoms are unable to be managed at home please return to the emergency department for reevaluation. The following attachments cannot be sent through Care Everywhere.Chronic Sinusitis (Bermudian)Vertigo (a Type of Dizziness) Discharge Instructions (Bermudian)documented in this encounter [facility] 12-20-2024 Emergency department Note EMERGENCY DEPARTMENT ENCOUNTER [...] Alcohol use: No Drug use: No SCREENINGS [place] Coma Scale Best Eye Response: Spontaneous Best [...] Physician EKG interpretation can be found in [facility] RADIOLOGY (Per Emergency Physician): Interpretation per [...] Discharge 12/20/2024 11:36:08 AM PATIENT REFERRED TO: [facility] ENT - [address] [address] DISCHARGE MEDICATIONS: New Prescriptions AMOXICILLIN (AMOXIL) [...] 3 weeks ago. documented in this encounter [facility] 12-20-2024 Emergency department Triage note Pt comes [...] 1 month ago and 3 weeks ago. [facility] 12-20-2024 Physician Emergency department Note EMERGENCY DEPARTMENT [...] Alcohol use: No Drug use: No SCREENINGS [place] Coma Scale Best Eye Response: Spontaneous Best [...] Physician EKG interpretation can be found in [facility] RADIOLOGY (Per Emergency Physician): Interpretation per the [...] Discharge 12/20/2024 11:36:08 AM PATIENT REFERRED TO: [facility] ENT - [address] [facility] [address] DISCHARGE MEDICATIONS: New Prescriptions AMOXICILLIN (AMOXIL) [...] Medicine Provider Cydney Cantu DO 12/20/24 1139 [facility] Discharge summary Note Date/Time July 04, 2025 1:06pm [facility] Medical Records Department [address] [place] [address] Emergency Department Summary 07/04/25 MR#: [id number] Acct: [id number] Name: JOSEPH BROWN Rep #:[id number] : [...] 2 [facility] Obstructive sleep apnea Left leg [...] 75.8 H Lymph % (Auto) 12.8 L Morrison % (Auto) 10.0 Eos % (Auto) 0.7 Baso % (Auto) 0.2 Absolute Neuts (auto) 8.4 H Absolute Lymphs (auto) 1.41 Nucleated RBC % 0 Sodium 137 Potassium 4.1 Chloride 103 Carbon Dioxide 22.3 Anion Gap 12 BUN 13 Creatinine 0.84 Estim Creat Clear Calc 104.58 Est GFR (MDRD) Non-Af 93 BUN/Creatinine Ratio 15.8 Glucose 133 H Calcium 8.7 Management Discussion w/another healthcare provider: Pickling Grader (Dr. Traore, otolaryngology) Discharge Plan Triage Chief [...] Drink plenty of oral fluids. Print Language: Bermudian Disposition Disposition: Home, Self Care What to do if you have Problems For any increased pain, shortness of breath, bleeding, nausea or vomiting, chest pain, or any unexpected problems, contact your Primary Care Provider. Call [facility] ([phone]) or report to the closest Emergency Room. Call 911 if necessary. 07/04/25 1306 <Electronically signed by Lawrence Abad MD> Cosigner Signature (if applicable): CC: Dr. hSerice العلي MD ~ Signed [facility] Work Phone: Evaluation note* Diagnosis Pneumonia due to COVID-19 virus documented in this encounter [facility] Work Phone: Evaluation note* Diagnosis Sinusitis, unspecified chronicity, unspecified location- Primary Vertigo Dizziness and giddiness documented [facility]* Diagnosis Dizziness- Primary Dizziness and giddiness Dizziness Dizziness and giddiness documented in [facility]* Diagnosis Laceration of right thumb without foreign body without damage to nail, initial encounter- Primary documented in this encounter [facility] HealthEvaluation noteNo assessment information availableWParkwood Hospital Work Phone: Hospital Discharge instructionsAdditional Instructions Follow-up with Dr. Johnson as scheduled on Monday. Return to the emergency department with increasing fainting spells, new or worsening symptoms. Drink plenty of oral fluids.[facility] Work Phone: Reason for referral (narrative)No reason for referral information availableWParkwood Hospital Work Phone: Advance Directives No Advanced Directives Records FoundDocuments on File Type Date Recorded Patient Circular Knitter Expl anation Advance Directives and Living Will Power of Boat Carpenter Mechanic Latest Code Status on File Code Status Date Activated Date Inactivated Comments Full Code 08/06/2017 4:23 PM 08/08/2017 3:33 PM Documents on File Type Date Recorded Patient Circular Knitter Expl anation ACP-Advance Directive ACP-Power of Boat Carpenter Mechanic Latest Code Status on File Code Status Date Activated Date Inactivated Comments Full Code 10/20/2020 2:43 AM Full Code 10/19/2020 10:54 AM 10/20/2020 2:43 AM Full Code 08/06/2017 4:23 PM 08/08/2017 3:33 PM Documents on File Type Date Recorded Patient Circular Knitter Expl anation ACP-Advance Directive ACP-Power of Boat Carpenter Mechanic Latest Code Status on File Code Status [...] Do you have a Healthcare Power of Boat Carpenter Mechanic? Yes July 04, 2025 9:53am Discharge Instructions [...] better: Rest Drink plenty of fluids Take eyrk-xjd-wwmubuc cold and flu medications to reduce fever [...] COVID-19. These instructions are also available at: https://www.cdc.gov/coronavirus/2019-ncov/hcp/mkgnnuqx-ymaocfd-jsggls.html It has been determined that you do [...] If possible, put on a facemask before [facility] medical services arrive. Take care of your mental health You might be feeling anxious, afraid, lonely or uncertain. The following link has a guide with a list of helpful behavioral health resources and a few tips for taking care of your emotional health while you are quarantined: https://store.[facility].gov/system/files/ntw92-3402.pdf Wear a face mask You should wear [...] clean your hands with an alcohol-based hand bracelet maker novelty that contains 60 to 95% alcohol, covering [...] andwater. Monitor your symptoms Please contact the [place] Department of Health as soon as possible. Persons who are [...] before emergency medical services arrive. Visit: https://[facility].[place].gov For specific questions and answers about COVID-19, call the [facility] info line at [phone] 4-ASK-ODH ( ) Discontinuing home isolation Patients with confirmed COVID-19 should remain under home isolation precautions until the risk of secondary transmission to others is thought to be low. The decision to discontinue home isolation precautions is made on a ynvs-af-qldf basis, in consultation with health care providers, and state and local health departments. Recommended precautions for household members, intimate partners, and caregivers If you are providing care for a person infected or suspected to be infected with COVID-19, please note the following instructions, which are also available at: https://www.cdc.gov/coronavirus/2019-ncov/hcp/ogfoubif-tjlkclk-pdlrnw.html How do I take care of someone [...] 20 seconds or use an alcohol-based hand bracelet maker novelty that contains 60 to 95% alcohol, covering [...] with soap and water or alcohol-based hand bracelet maker novelty. Next, remove and dispose of facemask, and immediately clean your hands again with soap and water or alcohol-based hand bracelet maker novelty Avoid sharing household items with the patient. [...] soap and water or an alcohol-based hand bracelet maker novelty) immediately after removing and throwing away your [...] soap and water or an alcohol-based hand bracelet maker novelty) immediately after handling these items. Soap and [...] and water are not available, use hand bracelet maker novelty Avoid touching your eyes, nose or mouth Avoid sharing personal household items Clean 'high-touch' surfaces daily If the person you live with has tested positive for COVID-19, you will be considered a close contact, and will also likely be asked to self-quarantine. documented in this encounter* Discharge Instr - MEERA* Kishan Solano LSW - 11/03/2020 11:54 AM EST Continuity of Care Form Patient Name: Joseph Brown : 1955 Admit date: 10/19/2020 Discharge date: Code Status Order: Full Code Advance Directives: Advance Care Flowsheet Documentation Date/Time Healthcare Directive Type of Healthcare Directive Copy in Chart Healthcare Agent Appointed Healthcare Agent's Name Healthcare Agent's Phone Number 10/27/20 1757 No, patient does not have an advance directive for healthcare treatment 10/19/20 1134 Yes, patient has an advance directive for healthcare treatment Durable power of extension division director for health care No, copy requested from family 10/19/20 0000 Healthcare power of extension division director Katja Brown Admitting Physician: Jerardo Green MD PCP: LAQUITA DING DO Discharging Nurse: Discharging Hospital Unit/Room#: 157/1571 Discharging Unit Phone Number: Emergency Contact: Extended Emergency Contact Information Primary Emergency Contact: Katja Brown [facility] Relation: None Past Surgical History: Past Surgical History: Procedure Laterality Date AMPUTATION fingers CHOLECYSTECTOMY Immunization History: Immunization History Administered Date(s) Administered Tdap (Boostrix, Adacel) 08/06/2017 Active Problems: Patient Active Problem List Diagnosis Code Epididymal cyst N50.3 BPH without obstruction/lower urinary tract symptoms N40.0 Syncope R55 SVT (supraventricular tachycardia) ([facility]) I47.1 Pneumonia due to COVID-19 virus U07.1, J12.82 ARDS (adult respiratory distress syndrome) ([facility]) J80 Isolation/Infection: Isolation No Isolation Patient Infection [...] MENTAL STATUS:} IV Access: { MEERA IV ACCESS:283373279} Nursing Mobility/ADLs: Walking {P DME ADLs:680822198} Transfer {P DME ADLs:014910693} Bathing {CHP DME ADLs:472103147} Dressing {CHP DME ADLs:636634612} Toileting {CHP DME ADLs:947671697} Feeding {CHP DME ADLs:454999788} Acquisitions Editor {P DME ADLs:207603187} Med Delivery { MEERA MED Delivery:395381597} Wound Care Documentation and Therapy: Elimination: Continence: Bowel: {YES / NO:} Bladder: {YES / NO:} Urinary Catheter: {Urinary Catheter:983567124} Colostomy/Ileostomy/Ileal Conduit: {YES / NO:} Date of Last BM: Intake/Output Summary (Last 24 hours) at 11/03/2020 1151 Last data filed at 11/03/2020 0739 Gross per 24 hour Intake 840 ml Output 1500 ml Net -660 ml I/O last 3 completed shifts: In: 1040 [P.O.:1040] Out: 1875 [Urine:187] Safety Concerns: { MEERA Safety Concerns:778628779} Impairments/Disabilities: { MEERA Impairments/Disabilities:837213569} Nutrition Therapy: Current Nutrition Therapy: { MEERA Diet List:768346452} Routes of Feeding: {[facility] DME Other Feedings:578936459} Liquids: {[facility] liquid thickness:57954} Daily Fluid Restriction: {P DME Yes amt example:033862171} Last Modified Barium Swallow with Video (Video Swallowing Test): {Done Not Done Date:} Treatments at the Time of Hospital Discharge: Respiratory Treatments: Oxygen Therapy: {Therapy; copd oxygen:18583} Ventilator: { CC Vent List:820455975} Rehab Therapies: {THERAPEUTIC INTERVENTION:9602309099} Weight Bearing Status/Restrictions: {[facility] Weight Bearin} Other Medical Equipment (for information only, NOT a DME order): {EQUIPMENT:907411244} Other Treatments: Patient's personal belongings (please select all that are sent with patient): {[facility] DME Belongings:774753027} RN SIGNATURE: {Esignature:790540405} CASE MANAGEMENT/SOCIAL WORK SECTION Inpatient Status Date: Readmission Risk Assessment Score: Readmission Risk Risk of Unplanned Readmission: 23 Discharging to Facility/ Agency Name: [facility] Address: [facility] (if applicable) Name: Address: Dialysis Schedule: Phone: Fax: CURRENT COST OF BOTH ELIQUIS AND XARELTO IS $492. FAMILY WAS PROVIDED WITH FREE COPAY CARDS AND PATIENT ASSISTANCE APPLICATIONS. PER [facility] IN HOUSE PHARMACY XARELTO MAY BE PREFERRED ANTICOAGULATION MEDICATION AND COST MAY DECREASE AFTER DEDUCTIBLE IS MET. Dulce Peres rn, cm Supervisor Fertilizer/Hot Tamale Worker signature: PHYSICIAN SECTION Prognosis: Good Condition at [...] Discharge Medications: Joseph Brown Home Medication Instructions LUPE:[id number] Printed on:11/04/20 6694 Medication Information apixaban (ELIQUIS) 5 MG TABS [...] Complexity: follow up within 7-14 calendar days (13325) [x] Severe Complexity: follow up within 7 calendar days (58083) Follow up Testing, Pending results or Referrals [...] been spent in discharging the patient. Signed: @[place] @ [facility] Division of Hospitalist Medicine Inpatient Medical Services 11/04/2020, 2:33 PM This report was created using the D2S Speaking voice- activated system. Despiteprompt dictation and careful editorial review, there may be subtle contextual errors in this report, due to misrecognition of the spoken word. documented in this encounter History of Present Illness * Hossein Desai RN - 11/04/2020 1:20 PM EST Report given to [facility] * Linda Acosta OTA - 11/04/2020 11:47 AM EST Occupational Therapy Facility/Department: [facility] TELEMETRY Daily Treatment Note NAME: Joseph [...] 19 Minutes(adl) ESTIVEN Mae * Linda Juarez TUBE CUTTER - 11/04/2020 11:45 AM EST Speech Language Pathology Facility/Department: [facility] 2E TELEMETRY Dysphagia Treatment Note NAME: Joseph [...] minutes Time Session Ended: 1145 Linda Juarez M.A.CCC/TUBE CUTTER Speech-Language Pathologist * Hossein Desai RN - 11/04/2020 11:28 AM EST Report called to select and spoke with construction secretary. Nurse was unable to take report [...] 11/04/2020 10:10 AM EST Physical Therapy Facility/Department: [facility] 2E TELEMETRY Daily Treatment Note NAME: Joseph [...] act) Ruchi Rogel PTA * Jenny Rees, PHOTO GRAPHICS LIBRARIAN - REQUIREMENTS ANALYST - 11/04/2020 8:49 AM EST [facility] [place] [address] [place] [address] Patient - Joseph Brown, Age - 64 y.o. - 1955 Room Number - [id number] Consulting - Jerardo Green MD Primary Care Physician - LAQUITA DING, DO [facility] # - [id number] Date of Admission - 10/19/2020 8:50 AM [...] - AMARILIS - 11/03/2020 10:56 AM EST [facility] [place] and Sleep [place] [address] [place] [address] Patient - Joseph Brown, Age - 64 y.o. - 1955 Room Number - [id number] Consulting - Jerardo Green MD Primary Care Physician - LAQU[facility]ING, DO [id number] Date of Admission - 10/19/2020 8:50 AM [...] acetaminophen OR acetaminophen Labs CBC Recent Labs 11/03/20341 WBC 9.5 HGB 11.0* HCT 33.8* MCV 92.8 PLT 305 BMP: Recent Labs 11/03/20341 NA 143 K 3.8 CL 113* CO2 26 BUN 42* CREATININE 0.62 GLUCOSE 139* MG 2.5* PHOS 3.9 IONCA 4.50 ABG: Recent Labs 11/02/2031711/03/20341 PH 7.45 7.51* No results found for: IFIO2, MODE, SETTIDVOL, SETPEEP LIVER PROFILE Recent Labs 01/18/21 0318 AST 101* ALT 221* BILITOT 0.7 ALKPHOS [...] shield Hospitalist Progress Note 11/03/2020 10:16 AM [phone]: Please page me @ [phone] for patient care issues. [phone]: Please page [facility] night Hospitalist for any issues. Subjective: Admit Date: 10/19/2020 PCP: LAQUITA DING DO Transferred out of Intensive Care Unit yesterday [...] Units Oral Daily LABS: CBC: Recent Labs 11/01/2025711/02/208 11/03/20341 WBC 8.5 8.2 9.5 RBC 3.39* 3.39* 3.64* HGB 10.4* 10.3* 11.0* HCT 31.0* 30.8* 33.8* MCV 91.5 90.8 92.8 RDW 14.5 14.5 14.6* PLT 321 352 305 BMP: Recent Labs 11/01/2025711/02/208 11/03/20341 NA 140 145 143 K 3.9 3.8 3.8 CL 107 112* 113* CO2 30 29 26 BUN 36* 40* 42* CREATININE 0.65 0.63 0.62 GLUCOSE 130* 138* 139* CALCIUM 8.3* 8.4 8.8 ANIONGAP 3 4 4 LIVER PROFILE: Recent Labs 11/01/208 11/02/20317 AST 111* 101* ALT 172* 221* BILITOT [...] Services This report was created using the Palam[employer] Naturally Speaking voice- activated system. Despiteprompt dictation and careful editorial review, there may be subtle contextual errors in this report, due to misrecognition of the spoken word. * Marquis Malorie, RD, LD - 11/02/2020 3:45 PM EST Comprehensive Nutrition Assessment Type and Reason for Visit: Reassess(pt extubated 10/31- to transfer to floor today) Nutrition Recommendations/Plan: 1)suggest to continue pureed diet as tolerated per TUBE CUTTER - speech now recommending dental soft - [...] assess Fluid Accumulation: No significant fluid accumulation Tile Sorter Strength: Not Performed Estimated Daily Nutrient Needs: Energy (kcal): 1200- 1525; Weight Used for Energy Requirements: Current Protein (g): 81-115; Weight Used for Protein Requirements: [place](1-1.4) Fluid (ml/day): per md; Method Used for [...] Usual Body Weight: 240 lb (108.9 kg) [place] Body Weight: 178 lbs; % [place] Body Weight 135.3 % BMI: 32.7 Adjusted Body Weight: ; No Adjustment Adjusted BMI: BMI Categories: Obese Class 1 (BMI 30.0-34.9) Nutrition Diagnosis: Inadequate oral intake related to catabolic illness, other (comment), biting/chewing (masticatory) difficulty, swallowing difficulty(covid- weak) as evidenced by intake 0-25%, other (comment)(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) Altered nutrition-related lab values related [...] soon to determine Contact: [phone] * Linda Juarez SLP - 11/02/2020 3:38 PM EST Speech Language Pathology Facility/Department: [facility] ICU Dysphagia Treatment Note NAME: Joseph Brown [...] 23 minutes Time out: 1525 Linda Juarez M.A.CCC/TUBE CUTTER Speech-Language Pathologist * Janine Bonner, PT - 11/02/2020 3:24 PM EST Physical Therapy Facility/Department: [facility] ICU Initial Assessment NAME: Joseph Brown : [...] Assistance: Independent(no AD) Transfer Assistance: Independent Active Skein Yard Drier: Yes Mode of Transportation: Truck, SUV Education: high school grad 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 [employer] Leisure & Hobbies: na IADL Comments: na Additional Comments: [facility] [place] Cognition Cognition Overall Cognitive Status: [facility] Objective Observation/Palpation Observation: all lines/tubes intact AROM RLE (degrees) RLE AROM: WFL AROM LLE (degrees) LLE AROM : WFL Strength RLE Comment: observed functionally, grossly deconditioned Strength LLE Comment: observed functionally, grossly deconditioned Sensation Overall Sensation Status: [facility] Bed mobility Supine to Sit: Minimal assistance [...] climbing 3-5 steps with a railing?: Total AM-PAC Inpatient Mobility Raw Score : 12 AM-PAC Inpatient T-Scale Score : 35.33 Mobility Inpatient [...] 5-6 lpm NC 2. Dysphagia but passed TUBE CUTTER -->puree, thin liq 3. Net NEG I/Os [...] Conjunctiva []Injected [x]Non-Injected Pinnae [x]Normal []Other Dentitian [][place] Teeth []Dentures Oral Mucosa []Bur[place]on []Moist []Dry Oral ETT []Present [x]Absent Neck: [...] [x]Absent CORDOVA ([x]RUE [x]RLE [x]LUE [x]LLE) Neurologic: WILTON []Yes [x]No Corneal reflexes []Present []Absent Plantar [...] 14.5 ABGs: Recent Labs 10/31/20423 PHART 7.458* PHZ1XTY 38.8 PO2ART 89.7 TMV4EYG 27.4* V6CKBMSZ 97.4 FIO2A 40 CRP: Recent Labs 10/31/2033611/01/2011/02/21 0318 CRP 123.9* 73.8* 43.8* LDH: Recent Labs 10/31/20 0337 11/01/20 0258 11/02/20317 LDH 310* 363* 349* Assessment and [...] may need 0.45 NS low rate MIV -->TUBE CUTTER, dysphagia diet -->encouraged po -->not really eating much of pureed diet at all -->senokot-S, glycolax -->continue dulcolax supp q12 till (+) BM -->PPI -->d/c R IJ -->d/c nance -->may need bladder scan if low uop Dispo -->OK for tele (h/o SVT) Full Code Family Communication Number Called: [phone] Name of Designated Family Circular Knitter: Katja Franklinkins Relationship to Patient: spouse Phone Call Outcome: I spoke with the individual listed above. Family Circular Knitter Updated on the Following: Improved TRANSFER CHECKLIST Transfer Med Reconciliation (resume home meds if able, convert to PO if able) Complete Antibiotics (name, indication, duration, convert to PO if able) None Steroid (indication, duration, convert to PO if able) Yes, addressed in today's progress note (decadron taper) Anticipated [place] Medications (ICU initiated) or Dose Changes and Indication No Permanently Discontinued Home Medications and Reason for medication contraindication No Nance Catheter (please remove if able) No Central Line (please remove if able) No Transfer Discussed with: Dr. Ferner If additional questions for ICU team within 24 hours of ICU transfer, page [phone] for clarifications. * Susan Millard, OT - 11/01/2020 1:04 PM EST Occupational Therapy Facility/Department: [facility] ICU Daily Treatment Note NAME: Joseph Brown : 1955 Date of Service: 11/01/2020 Discharge Recommendations: (facility based therapy) OT Equipment Recommendations Equipment Needed: No Other: TBD Assessment Performance deficits / Impairments: Decreased functional mobility ;Decreased high-level IADLs;Decreased endurance;Decreased ADL status;Decreased balance;Decreased strength Assessment: Pt is a 64 yo male admitted to [facility] with acute hypoxic respiratory failure 2/2 COVID. [...] Inpatient CMS G-Code Modifier : CK (11/01/20 1304) Goals Short term goals Time Frame for [...] 11:46 AM EST Speech Language Pathology Facility/Department: [facility] ICU CLINICAL BEDSIDE SWALLOW EVALUATION NAME: Joseph Brown : 1955 ADMISSION DATE: 10/19/2020 ADMITTING DIAGNOSIS: has Epididymal cyst; BPH without obstruction/lower urinary tract symptoms; Syncope; SVT (supraventricular tachycardia) (HCC); Pneumonia due to COVID-19 virus; and ARDS (adult respiratory distress syndrome) (HCC) on their problem list. ONSET DATE: 10/20/20 [...] one diet consistency restricted Treatment Plan Requires TUBE CUTTER Intervention: Yes Duration/Frequency of Treatment: 3 visits [...] devices: Call light within reach Therapy Time TUBE CUTTER Individual Minutes Time In: 1118 Time Out: 1138 Minutes: 20 JODY Prakash 11/01/2020 11:46 AM * Demetria Alford MD - 11/01/2020 8:56 AM EST ICU Progress Note 11/01/2020 10:57 AM Subjective: Admit Date: 10/19/2020 PCP: LAQUITA DING DO Interval History: Pt doing well post [...] Oral Daily Continuous Infusions: CBC: Recent Labs 10/30/2033710/31/20 03311/01/20 0258 WBC 11.7* 9.7 8.5 HGB 10.9* 10.2* 10.4* PLT 300 316 321 BMP: Recent Labs 10/30/20 03310/31/20 0337 11/01/20 0258 NA 138 140 140 K 4.1 4.5 3.9 CL 103 106 107 CO2 32* 31* 30 BUN 32* 38* 36* CREATININE 0.63 0.69 0.65 GLUCOSE 143* 135* 130* Hepatic: Recent Labs 10/30/20 0338 10/31/20 0337 11/01/20 0258 AST 64* 86* 111* [...] Conjunctiva []Injected [x]Non-Injected Pinnae [x]Normal []Other Dentitian [x][place]eth []Dentures []Poor dentition []Edentulous Oral Mucosa [x]Burleson [x]Moist []Dry Oral ETT []Present [x]Absent Neck: [...] ([x]RUE [x]RLE [x]LUE [x]LLE) Generalized weakness Neurologic: WILTON []Yes [x]No Corneal reflexes []Present []Absent Plantar [...] virus ARDS (adult respiratory distress syndrome) (HCC) DEMETRIA ALFORD MD * Joel De León, [facility] - 10/31/2020 11:48 PM EST Patient [...] RR = 12-20 Increased, RR = 21-25 THORNTON, irregular, or RR = 26-30 Decreased FEV1 [...] - 10/31/2020 9:32 AM EST [facility] Respiratory Care Department Progress Note Spontaneous [...] AM Subjective: Admit Date: 10/19/2020 PCP: LAQUITA J TIMUR, DO Chief Complaint Patient presents with Shortness [...] Conjunctiva []Injected [x]Non-Injected Pinnae [x]Normal []Other Dentitian [x][place]eth []Dentures []Poor dentition []Edentulous Oral Mucosa [x]Burleson []Moist []Dry Oral ETT [x]Present []Absent Neck: [...] sec CORDOVA ([x]RUE [x]RLE [x]LUE [x]LLE) Neurologic: WILTON []Yes [x]No Corneal reflexes []Present []Absent Plantar reflexes []Up []Down []Absent Withdraws to tactile []Yes []No Follows Commands [x]Yes []No []Unresponsive to verbal []Cranial nerves grossly intact []Sensation grossly intact Psych: Alert [x]yes []no Oriented []x0 []x1 []x2 []x3 Affect []Normal []Flat []Agitated [x]Anxious at times []Calm []Sedated []NAD BMP: Recent Labs 10/29/20 0351 10/30/208 10/31/20336 NA 139 138 140 K 4.2 4.1 4.5 CL 107 103 106 CO2 28 32* 31* BUN 31* 32* 38* CREATININE 0.60 0.63 0.69 GLUCOSE 118* 143* 135* . Ionized Calcium: Lab Results Component Value Date IONCA 4.50 10/31/2020 IONCA 4.40 10/30/2020 Hepatic: Recent Labs 10/30/20 03310/31/20336 AST 64* 86* ALT 73* 117* BILITOT 0.8 0.7 ALKPHOS 82 70 ABG: Recent Labs 10/31/20 042 PHART 7.458* PO2ART 89.7 OHX7ZMB 38.8 TYG3EFI 27.4* BEART 3.4* W9GWQPPN 97.4 CBC: Recent Labs 10/30/208 10/31/20336 WBC 11.7* 9.7 HGB 10.9* 10.2* PLT 300 316 Cultures: No results found for: BC Lab Results Component Value Date RESPCULTURE Few normal respiratory yolanda. 10/24/2020 RESPCULTURE Streptococcus pneumoniae 10/24/2020 RESPCULTURE Moderate 10/24/2020 Films: CXR portable: Results for orders placed during the hospital encounter of 10/19/20 XR CHEST PORTABLE Narrative [facility]: [id number] Diagnostic Radiology ACCESSION EXAM DATE/TIME PROCEDURE ORDERING PROVIDER [id number] 10/29/2020 05:58 EST CR Chest Portable AMARILIS LUKE JEFFREY A CPT code 61854 Reason For Exam (CR Chest Portable) pneumonia [...] symptoms Syncope SVT (supraventricular tachycardia) ([facility]) Pneumonia due to COVID-19 virus ARDS (adult respiratory distress syndrome) ([facility]) Assessment and Plan: 1. Respiratory failure: Covid, [...] Pulse 119 SpO2 93 % * Nay Sherwood, RD, LD - 10/30/2020 2:54 PM EST [...] to preserve PPE for other caregivers, a icyl-qn-efjc encounter with the patient was not performed. Estimated Daily Nutrient Needs: Energy (kcal): 1200- 1525; Weight Used for Energy Requirements: Current Protein (g): 81-115; Weight Used for Protein Requirements: [place](1-1.4) Fluid (ml/day): per md; Method Used for [...] Usual Body Weight: 240 lb (108.9 kg) [place] Body Weight: 178 lbs; % [place] Body Weight 134.8 % BMI: 32.5 Adjusted [...] Conjunctiva []Injected [x]Non-Injected Pinnae [x]Normal []Other Dentitian [x][place]eth []Dentures []Poor dentition []Edentulous Oral Mucosa [x]Burleson [x]Moist []Dry Oral ETT [x]Present []Absent Neck: [...] sec CORDOVA ([x]RUE [x]RLE [x]LUE [x]LLE) Neurologic: WILTON []Yes [x]No Corneal reflexes []Present []Absent Plantar [...] 10/30/2020 IONCA 4.50 10/29/2020 Hepatic: Recent Labs 10/29/20 03510/30/20337 AST 53* 64* ALT 49 73* BILITOT 0.7 0.8 ALKPHOS 68 82 ABG: Recent Labs 10/30/20334 PHART 7.465* PO2ART 65.9* FXE4GRL 38.4 MGY8OEB 27.6* BEART 3.7* F5UBOTCC 93.9* CBC: Recent Labs 10/29/2035010/30/20337 WBC 10.4 11.7* HGB 10.7* 10.9* PLT 278 300 Films: CXR portable: Results for orders placed during the hospital encounter of 10/19/20 XR CHEST PORTABLE Narrative Patient Name: JOSEPH BROWN Diagnostic Radiology ACCESSION EXAM DATE/TIME PROCEDURE ORDERING PROVIDER [id number] 10/29/2020 05:58 EST CR Chest Portable AMARILIS LUKE JEFFREY A CPT code 39824 Reason For Exam (CR Chest Portable) pneumonia [...] infiltrates are present. 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 Respiratory Failure: Covid, [...] 10/29/2020 9:10 AM EST Malorie Muse ( Stretch Box Tender) and I spoke with dispatcher Jose Abbott regarding Echo ordered for patient. Patient COVID +. Contacted Dr. Dietrich who said did handheld beside Echo and Echo ordered was not needed. Per Dr. Dietrich ok to discontinue order. Jose Astorga - 10/29/2020 8:[address] Dietrich ([facility] on 10.29.20) regarding ECHO order due to [...] 99 % I/O: 10/28 0701 - 10/29 07 In: 1385.4 [I.V.:932.4] Out: 1864 [Urine:1865] CVP: Invasive Lines: PICC D# CVC D# [...] Conjunctiva []Injected [x]Non-Injected Pinnae [x]Normal []Other Dentitian [x][place]eth []Dentures []Poor dentition []Edentulous Oral Mucosa [x]Burleson [x]Moist []Dry Oral ETT [x]Present []Absent Neck: [...] sec CORDOVA ([x]RUE [x]RLE [x]LUE [x]LLE) Neurologic: WILTON []Yes [x]No Corneal reflexes []Present []Absent Plantar reflexes []Up []Down []Absent Withdraws to tactile []Yes []No Follows Commands []Yes [x]No []Unresponsive to verbal []Cranial nerves grossly intact []Sensation grossly intact Psych: Alert [x]yes []no Oriented []x0 []x1 []x2 []x3 Affect []Normal []Flat []Agitated []Anxious []Calm [x]Sedated []NAD BMP: Recent Labs 10/27/20 0332 10/28/206 10/29/20 035 NA 139 140 139 K 4.3 4.2 4.2 CL 104 106 107 CO2 31* 28 28 BUN 30* 32* 31* CREATININE 0.62 0.64 0.60 GLUCOSE 126* 146* 118* . Ionized Calcium: Lab Results Component Value Date IONCA 4.50 10/29/2020 IONCA 4.40 10/28/2020 Hepatic: Recent Labs 10/28/20 0356 10/29/20350 AST 45 53* ALT 40 49 BILITOT 0.6 0.7 ALKPHOS 64 68 ABG: Recent Labs 10/29/20 0356 PHART 7.449 PO2ART 69.0* YKJ3FBC 39.1 MPO3KMG 27.1* BEART 2.9 X1ZPQCRG 94.3* CBC: Recent Labs 10/28/20 0350 10/29/20 0351 WBC 8.0 10.4 HGB 10.7* 10.7* PLT 235 278 PROCALCITONIN: Recent Labs 10/27/20 0332 PROCAL 0.17* Films: CXR portable: Results for orders placed during the hospital encounter of 10/19/20 XR CHEST PORTABLE Narrative Patient Name: JOSEPH BROWN Diagnostic Radiology ACCESSION EXAM DATE/TIME PROCEDURE ORDERING PROVIDER [id number] 10/29/2020 05:58 EST CR Chest Portable AMARILIS LUKE JEFFREY A CPT code 61432 Reason For Exam (CR Chest Portable) pneumonia [...] symptoms Syncope SVT (supraventricular tachycardia) ([facility]) Pneumonia due to COVID-19 virus ARDS (adult respiratory distress syndrome) ([facility]) Assessment and Plan: 1. Respiratory Failure: Covid with secondary pneumonia, increased secretions with some blood tinge likely due to suction trauma, Add hypertonic aerosols, continue steroids ,aerosols and ceftriaxone through 16th. 2. Acute encephalopathy: propofol is being weaned [...] Conjunctiva []Injected [x]Non-Injected Pinnae [x]Normal []Other Dentitian [x][place]eth []Dentures []Poor dentition []Edentulous Oral Mucosa [x]Burleson [x]Moist []Dry Oral ETT [x]Present []Absent Neck: [...] sec CORDOVA ([x]RUE [x]RLE [x]LUE [x]LLE) Neurologic: WILTON []Yes [x]No Corneal reflexes []Present []Absent Plantar [...] Recent Labs 10/28/20352 PHART 7.455* PO2ART 66.3* XAW0CDR 38.5 YPA1JGW 27.1* BEART 3.0 H0WPJZKL 93.8* CBC: Recent Labs 10/27/20 0332 10/28/20 0350 WBC 7.2 8.0 HGB 10.5* 10.7* PLT 245 235 PROCALCITONIN: Recent Labs 10/27/20 0332 PROCAL 0.17* Films: CXR portable: Results for orders placed during the hospital encounter of 10/19/20 XR CHEST PORTABLE Narrative [facility]: [id number] Diagnostic Radiology ACCESSION EXAM DATE/TIME PROCEDURE ORDERING PROVIDER [id number] 10/27/2020 05:35 EST CR Chest Portable MD ALFORD JAMES A CPT code 34735 Reason For Exam (CR Chest Portable) pneumonia, [...] symptoms Syncope SVT (supraventricular tachycardia) ([facility]) Pneumonia due to COVID-19 virus ARDS (adult respiratory distress syndrome) ([facility]) Assessment and Plan: 1. Respiratory Failure: Covid [...] assess Fluid Accumulation: No significant fluid accumulation Tile Sorter Strength: Not Performed Estimated Daily Nutrient Needs: Energy (kcal): 1200- 1525; Weight Used for Energy Requirements: Current Protein (g): 81-115; Weight Used for Protein Requirements: [place](1-1.4) Fluid (ml/day): per md; Method Used for [...] Usual Body Weight: 240 lb (108.9 kg) [place] Body Weight: 178 lbs; % [place] Body Weight 134.8 % BMI: 32.5 Adjusted [...] 92 % Max: 99 % I/O: 10/26 07 - 10/27 699 In: 4082.1 [I.V.:1101.1] Out: 1880 [Urine:1880] CVP: Invasive Lines: PICC D# CVC D# [...] Conjunctiva []Injected [x]Non-Injected Pinnae [x]Normal []Other Dentitian [x][place]eth []Dentures []Poor dentition []Edentulous Oral Mucosa [x]Burleson [x]Moist []Dry Oral ETT [x]Present []Absent Neck: [...] sec CORDOVA ([x]RUE [x]RLE [x]LUE [x]LLE) Neurologic: WILTON []Yes [x]No Corneal reflexes []Present []Absent Plantar reflexes []Up []Down []Absent Withdraws to tactile [x]Yes []No Follows Commands []Yes [x]No []Unresponsive to verbal []Cranial nerves grossly intact []Sensation grossly intact Psych: Alert []yes []no Oriented []x0 []x1 []x2 []x3 Affect []Normal []Flat []Agitated []Anxious []Calm [x]Sedated []NAD BMP: Recent Labs 10/25/20 0430 10/26/2040510/27/20331 NA 137 137 139 K 3.9 3.9 4.3 CL 102 102 104 CO2 31* 31* 31* BUN 32* 34* 30* CREATININE 0.74 0.66 0.62 GLUCOSE 153* 189* 126* . Ionized Calcium: Lab Results Component Value Date IONCA 4.40 10/27/2020 IONCA 4.40 10/26/2020 Hepatic: Recent Labs 10/26/2040510/27/20331 AST 36 41 ALT 23 29 BILITOT 0.6 0.7 ALKPHOS 59 61 ABG: Recent Labs 10/27/20435 PHART 7.455* PO2ART 70.2* XHD2BWJ 39.5 HSI8GYS 27.7* BEART 3.6* E4IYJMMY 94.7* CBC: Recent Labs 10/26/2040510/27/20331 WBC 7.1 7.2 HGB 9.7* 10.5* PLT 190 245 Recent Labs 10/24/202024 LABGRAM Moderate polymorphonuclear cells/lpf. Few epithelial cells/lpf. Many gram positive cocci in pairs and chains. Films: CXR portable: Results for orders placed during the hospital encounter of 10/19/20 XR CHEST PORTABLE Narrative Patient Name: JOSEPH BROWN Diagnostic Radiology ACCESSION EXAM DATE/TIME PROCEDURE ORDERING PROVIDER [id number] 10/27/2020 05:35 EST CR Chest Portable MD ALFORD JAMES A CPT code 73400 Reason For Exam (CR Chest Portable) pneumonia, [...] bilateral ill-defined infiltrates. 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 Respiratory Failure: Covid, [...] 50 mcg/kg/min (10/26/20 030) fentaNYL 60 mcg/hr (10/26/20403) Objective: Vitals: Temp (24hrs), Av.7 F (37.1 [...] Conjunctiva []Injected [x]Non-Injected Pinnae [x]Normal []Other Dentitian [x][place]eth []Dentures []Poor dentition []Edentulous Oral Mucosa [x]Burleson [x]Moist []Dry Oral ETT []Present [x]Absent Neck: [...] sec CORDOVA ([x]RUE [x]RLE [x]LUE [x]LLE) Neurologic: WILTON []Yes [x]No Corneal reflexes []Present []Absent Plantar [...] Labs 10/25/20 2327 PHART 7.493* PO2ART 66.0* MGV1MPJ 33.6* JWG2XKN 25.8* BEART 2.7 Z2MHGNHI 94.5* CBC: Recent Labs 10/25/20 0430 10/26/20 [...] Radiology ACCESSION EXAM DATE/TIME PROCEDURE ORDERING PROVIDER [id number] 10/24/2020 05:26 EST CR Chest Portable AMARILIS GOMEZ AMBER A CPT code 06446 Reason For Exam (CR Chest Portable) Line [...] symptoms Syncope SVT (supraventricular tachycardia) ([facility]) Pneumonia due to COVID-19 virus ARDS (adult respiratory distress syndrome) ([facility]) Assessment and Plan: 1. Respiratory Failure: Covid [...] 32.55 kg/m I/O: 10/24 0701 - 10/25 699 In: 2168 [I.V.:2043] Out: 3590 [Urine:3530] CVP: [...] []Injected []Non-Injected / Pinnae []Normal []Other/ Dentitian [][place] Teeth []Dentures Oral Mucosa []Burleson []Moist []Dry/ Oral ETT []Present []Absent Neck: [...] []Absent/ CORDOVA ([]RUE []RLE []LUE []LLE) Neurologic: WILTON []Yes []No Corneal reflexes []Present []Absent / [...] Radiology ACCESSION EXAM DATE/TIME PROCEDURE ORDERING PROVIDER [id number] 10/24/2020 05:26 EST CR Chest Portable AMARILIS GOMEZ AMBER A CPT code 73323 Reason For Exam (CR Chest Portable) Line [...] position without pneumothorax Report Dictated on Workstation: [facility] --- Final --- Dictating Physician: MD [place] [...] ARDS (adult respiratory distress syndrome) ([facility]) Resolved Problems: * No resolved hospital problems. * RECOMMENDATIONS: I performed a bedside hand-held fzbwt-wg-bqnc echocardiogram which showed normal RV and LV [...] infusion 3 mcg/kg/min (10/24/20631) propofol 30 mcg/kg/min (10/24/205) dexmedetomidine Stopped (10/24/20602) Objective: Vitals: Temp (24hrs), Av.2 F (37.3 C), Min:97.6 F (36.4 C), Max:101.1 F (38.4 C) BP (!) 151/81 Pulse 106 Temp 97.6 F (36.4 C) (Axillary) Resp 13 Ht 6' (1.829 m) Wt 240 lb(108.9 kg) SpO2 93% BMI 32.55 kg/m I/O: 10/23 700 - 10/24 699 In: 1492 [P.O.:700; I.V.:542] Out: 2325 [Urine:2325] [...] []Injected [x]Non-Injected / Pinnae [x]Normal []Other/ Dentitian [x][place]eth []Dentures Oral Mucosa [x]Burleson [x]Moist []Dry/ Oral ETT [x]Present []Absent Neck: [...] Extremities: Cyanosis []Present [x]Absent/ No clubbing Neurologic: WILTON []Yes []No Corneal reflexes []Present [x]Absent / [...] Radiology ACCESSION EXAM DATE/TIME PROCEDURE ORDERING PROVIDER [id number] 10/24/2020 05:26 EST CR Chest Portable AMARILIS GOMEZ AMBER A CPT code 66736 Reason For Exam (CR Chest Portable) Line [...] []Injected [x]Non-Injected / Pinnae [x]Normal []Other/ Dentitian [][place]eth []Dentures Oral Mucosa [x]Burleson [x]Moist []Dry/ Oral ETT [x]Present []Absent Neck: [...] [x]Absent/ CORDOVA ([x]RUE [x]RLE [x]LUE [x]LLE) Neurologic: WILTON []Yes [x]No Corneal reflexes []Present []Absent / Plantar reflexes []Up []Down []Absent / Withdraws to tactile [x]Yes []No/ Follows Commands [x]Yes []No []Unresponsive to verbal Psych: Alert [x]yes []no Oriented []x0 []x1 []x2 []x3 / Affect +restless BMP: Recent Labs 10/21/20 0407 10/22/20 0338 10/23/20 0427 NA 136 138 138 K 5.0 4.8 4.7 CL 106 106 104 CO2 25 26 27 BUN 25* 24* 24* CREATININE 0.68 0.60 0.72 GLUCOSE 148* 161* 106* . Ionized Calcium: No results found for: IONCA Hepatic: Recent Labs 10/22/20 0338 10/23/20426 AST 44 40 ALT 30 34 BILITOT 0.6 0.9 ALKPHOS 58 66 Troponin: No results for input(s): TROPONINI in the last 72 hours. Lactate: No results found for: LACTA ABG: No results for input(s): PH, PCO2, PO2 in the last 72 hours. CBC: Recent Labs 10/22/20 0338 10/23/20426 WBC 7.8 9.0 HGB 11.4* 12.5* PLT 264 314 Films: CXR portable: Results for orders placed during the hospital encounter of 10/19/20 XR CHEST PORTABLE Narrative Patient Name: JOSEPH BROWN Diagnostic Radiology ACCESSION EXAM DATE/TIME PROCEDURE ORDERING PROVIDER [id number] 10/19/2020 09:34 EST CR Chest Portable [id number] CANDELARIO LOMELI CPT code 43449 Reason For Exam (CR Chest Portable) COVID [...] [] SCD Full Code * Malorie Cho, RD, LD - 10/23/2020 3:17 PM EST [...] assess Fluid Accumulation: No significant fluid accumulation Tile Sorter Strength: Not Performed Estimated Daily Nutrient Needs: Energy (kcal): 9153-9350; Weight Used for Energy Requirements: Current Protein (g): 81-115; Weight Used for Protein Requirements: [place] Fluid (ml/day): ; Method Used for Fluid Requirements: 1 ml/kcal Nutrition Related Findings: no edema, strong traveling clerk, 10/13 bm -ongoing nausea,alb 3.1, glu 161, vit d23, d- dimer 35.2,ferritin 552, neg 1.5 liters Wounds: None(db 19) Current Nutrition Therapies: DIET GENERAL; Dietary Nutrition Supplements: Clear Liquid Oral Supplement Anthropometric Measures: Height: 6' (182.9 cm) Current Body Weight: 240 lb (108.9 kg) Admission Body Weight: Usual Body Weight: 240 lb (108.9 kg) [place] Body Weight: 178 lbs; % [place] Body Weight 134.8 % BMI: 32.5 Adjusted [...] SpO2 91% BMI 32.55 kg/m I/O: 10/21 700 - 10/22 699 In: 1515 [P.O.:520; I.V.:495] Out: 2735 [Urine:2735] CVP: hysical Exam General Appearance: [x]WDWN []Obese []Cachectic []Thin []ill Skin: Temperature [x]Warm []Cool / Rash []Yes [x]No / Tattoo(s) []Yes []No Heent: Pupils round and react [x]Yes []No Sclera []Icteric [x]Non-Icteric Conjunctiva []Injected [x]Non-Injected / Pinnae [x]Normal []Other/ Dentitian [][place] Teeth []Dentures Oral Mucosa [x][place] [x]Moist []Dry/ Oral ETT []Present [x]Absent Neck: [...] [x]Absent/ CORDOVA ([x]RUE [x]RLE [x]LUE [x]LLE) Neurologic: WILTON []Yes [x]No Corneal reflexes []Present []Absent / Plantar reflexes []Up []Down []Absent / Withdraws to tactile [x]Yes []No/ Follows Commands [x]Yes []No []Unresponsive to verbal Psych: Alert [x]yes []no Oriented []x0 []x1 []x2 []x3 / Affect []Normal []Flat []Aggitated []Calm []Sedated [x]NAD BMP: Recent Labs 10/20/20 0325 10/21/20 04010/22/20 0338 NA 137 136 138 K 4.3 5.0 4.8 CL 103 106 106 CO2 27 25 26 BUN 24* 25* 24* CREATININE 0.90 0.68 0.60 GLUCOSE 148* 148* 161* . Ionized Calcium: No results found for: IONCA Hepatic: Recent Labs 10/21/20 0407 10/22/20 0338 AST 37 44 ALT 24 30 BILITOT 0.8 0.6 ALKPHOS 58 58 Troponin: Recent Labs 10/19/20 1709 10/19/202046 TROPONINI 0.726* 0.601* CBC: Recent Labs 10/21/2040610/22/20 0338 WBC 7.7 7.8 HGB 11.2* 11.4* PLT 277 264 PROCALCITONIN: Recent Labs 10/20/20 0325 PROCAL 0.23* Films: CXR portable: Results for orders placed during the hospital encounter of 10/19/20 XR CHEST PORTABLE Narrative [facility]: [id number] ACCESSION EXAM DATE/TIME PROCEDURE ORDERING PROVIDER [id number] 10/19/2020 09:34 EST CR Chest Portable [id number] CANDELARIO LOMELI CPT code 26490 Reason For Exam (CR Chest Portable) COVID [...] on --- Final --- Dictating Physician: MD MARYLU, DUANE Signed Date and Time: 10/19/2020 10:00 am [...] []Injected [x]Non-Injected / Pinnae [x]Normal []Other/ Dentitian [][place]eth []Dentures Oral Mucosa [x][place] [x]Moist []Dry/ Oral ETT []Present [x]Absent Neck: [...] [x]Absent/ CORDOVA ([x]RUE [x]RLE [x]LUE [x]LLE) Neurologic: WILTON []Yes [x]No Corneal reflexes []Present []Absent / [...] 11.2* PLT 237 277 PROCALCITONIN: Recent Labs 10/20/20324 PROCAL 0.23* Films: CXR portable: Results for orders placed during the hospital encounter of 10/19/20 XR CHEST PORTABLE Narrative [facility]: [id number] ACCESSION EXAM DATE/TIME PROCEDURE ORDERING PROVIDER [id number] 10/19/2020 09:34 EST CR Chest Portable [id number] -CANDELARIO LOMELI CPT code 47034 Reason For Exam (CR Chest Portable) COVID [...] on --- Final --- Dictating Physician: MD MARYLU, DUANE Signed Date and Time: 10/19/2020 10:00 am [...] Heparin [] SCD Full Code * Issa Coreas, [facility] - 10/20/2020 9:32 PM EST Patient Evaluation [...] RR = 12-20 Increased, RR = 21-25 THOR[place]ON, irregular, or RR = 26-30 Decreased FEV1 [...] to QID and PRN * Christina Prabhakar, RD, LD - 10/20/2020 4:01 PM EST [...] assess Fluid Accumulation: No significant fluid accumulation Tile Sorter Strength: Not Performed Estimated Daily Nutrient Needs: Energy (kcal): 7378-0768; Weight Used for Energy Requirements: Current Protein (g): 81-115; Weight Used for Protein Requirements: [place] Fluid (ml/day): ; Method Used for Fluid Requirements: 1 ml/kcal Nutrition Related Findings: Nausea; hyperactive BS; no edema; skin WDL Wounds: None Current Nutrition Therapies: DIET CLEAR LIQUID; Anthropometric Measures: Height: 6' (182.9 cm) Current Body Weight: 240 lb (108.9 kg) Admission Body Weight: Usual Body Weight: 240 lb (108.9 kg) [place] Body Weight: 178 lbs; % [place] Body Weight 134.8 % BMI: 32.5 Adjusted [...] Pelaez MD - 10/19/2020 10:52 AM EST [facility] - Infectious Diseases Attending COVID-19 Therapeutic Progress [...] to preserve PPE for other caregivers, a [id number] encounter with the patient was not performed. [...] plan. Jerardo Pelaez MD, FACP, FIDSA P [phone] documented in this encounter Reason for Referral Status Reason Specialty Diagnoses / Procedures Referre d By Contact Referred To Contact Closed Cardiology Diagnoses SVT (supraventricular tachycardia) (HCC) Procedures ECHO Complete 2D W Doppler W Color Venkat Grant MD [address] [place], [place] [id number] Summary Purpose Family History No Family History [...] Diagnoses Dizziness Procedures r42 Julian Marmolejo MD [address] [place] [address] Phone: tel: fax: [facility] [address] [place] [address] Phone: tel: Referral ID Status Reason Start [...] Care Teams (unrecognized sec tion and content) Middleware Engineer Relationship Specialty Start Date End Date Laquita Ding DO [address] [place] [address], [address] [phone] PCP - General 06/04/19 Middleware Engineer Relationship Specialty Start Date End Date Laquita Ding DO [address] [place] [address] [address] [place] [phone] PCP - General 03/16/20 Middleware Engineer Relationship Specialty Start Date End Date Laquita Ding DO PCP - General 03/16/20 Middleware Engineer Relationship Specialty Start Date End Date Laquita Ding DO PCP - General 03/16/20 Middleware Engineer Relationship Specialty Start Date End Date Laquita [...] July 04, 2025 End: July 04, 2025 Middleware Engineer Relationship Specialty Start Date End Date Laquita Ding DO PCP - General 03/16/20 (unrecognized sect ion and content) No Status Records FoundNo Status Records FoundNo Status Records FoundNo Status Records FoundNo Status Records Found INFORMATION SOURCE (unrecogn ized section and content) DATE CREATED AUTHOR 09/01/2021 [facility] DATE CREATED AUTHOR AUTHOR'S ORGANIZ ATION 11/10/2021 [facility] DATE CREATED AUTHOR AUTHOR'S ORGANIZ ATION 06/22/2025 [facility] DATE CREATED AUTHOR AUTHOR'S ORGANIZ ATION 08/15/2025 [facility] DATE CREATED AUTHOR AUTHOR'S ORGANIZ ATION 08/22/2025 [facility] Scheduled Active and Recently Administ ered Medications [...] BE BASED ON THE PRIMARY CLINICAL RECORDS. [employer] provides no warranty or guarantee of the accuracy or completeness of information in this document.
[2025-09-20 11:00] VITALS: BP 110/59; PULSE 78; RESP 16; TEMP 36.9; O2SAT 98
== END 2025-09-20 11:05 | disposition home or self-care (01) ==
PROVIDERS: Emergency Provider Emergency Medicine; PCP Family Medicine; Visit Provider Emergency Medicine
DX: L02.31 Cutaneous abscess of buttock (principal); B95.62 Methicillin resistant Staphylococcus aureus infection as the cause of diseases classified elsewhere; M19.90 Unspecified osteoarthritis, unspecified site; Z79.899 Other long term (current) drug therapy; Z87.891 Personal history of nicotine dependence
CPT/HCPCS: 10060; 99282; A4216